=== PATIENT | male | born 1945 | race Caucasian/White ===

== ENCOUNTER 2023-12-27 13:05 | Emergency (ER) | payer MEDICARE, SELFPAY ==
[2023-12-27 13:14] VITALS: BP 169/89; PULSE 56; TEMP 37.1; O2SAT 96; BMI 24.1
--- NOTE | 2023-12-27 13:19 | XR_ITS ---
The [address] [address] Patient Name: ILA MOREJON MRN: [id number] date: 1945 Sex: M Assigned Patient Location: ER Current Patient Location: ER Accession/Order Number: [id number] Exam Date: 12/27/2023 13:48 Report Date: 12/27/2023 15:28 At the request of: JULIANO HENDRICKSON Procedure: XR chest 2V EXAM: XR chest 2V 12/27/2023 COMPARISON STUDY: None. HISTORY: cough TECHNIQUE: A total of 2 images were obtained. FINDINGS/IMPRESSION: 1. Prior coronary artery stenting noted. Heart size is normal. Changes from atherosclerosis are identified. 2. Abnormal central bronchial wall cuffing may be related to reactive airways disease versus bronchitis. No overt pneumonia noted. 3. Background COPD pattern/emphysema may also be present. 4. No acute osseous abnormality. Remote trauma and/or postsurgical partial resection of the distal left clavicle suggested. 5. No edema, failure or pneumothorax otherwise identified. Electronically authenticated by: CELINA CASTRO Date: 12/27/2023 15:28
[2023-12-27 13:20] VITALS: O2SAT 96
--- NOTE | 2023-12-27 13:28 | ECG_ITS ---
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
--- NOTE | 2023-12-27 13:47 | ED.GENADUL1 ---
HPI HPI - General Adult General Chief complaint: Upper Respiratory Infection Stated complaint: CHEST PAIN/CONGESTION Time Seen by Provider: 12/27/23 13:11 Source: patient Mode of arrival: walk-in History of Present Illness HPI narrative: Patient presents to ED complaining of shortness of breath. States for the past week he has had a cough and shortness of breath. Shortness of breath is worse with exertion. No chest pain. He denies any leg pain or swelling. He does have a history of 4 stents that were put in within the past year. He does not have a history of CHF. He is on Brilinta. He reports a cough but states it is relatively nonproductive. He also reports a weight loss in the past month or so he has been losing weight and not actively trying to lose weight. Says he just has mild nausea and decreased appetite. No abdominal pain. No vomiting. Related Data Home Medications ?Medication ?Instructions ?Recorded ?Confirmed amlodipine 10 mg tablet 10 mg PO QAM 12/27/23 12/27/23 aspirin 81 mg chewable tablet 1 tab PO QAM 12/27/23 12/27/23 furosemide 40 mg tablet 40 mg PO DAILY PRN edema 12/27/23 12/27/23 gabapentin 300 mg capsule 300 mg PO TID 12/27/23 12/27/23 insulin glargine 100 unit/mL 54 unit subcut DAILY 12/27/23 12/27/23 subcutaneous solution (Lantus U-100 Insulin) lisinopril 20 mg tablet 20 mg PO QAM 12/27/23 12/27/23 metformin 500 mg tablet,extended 500 mg PO DAILY 12/27/23 12/27/23 release 24 hr rosuvastatin 20 mg tablet 20 mg PO QPM 12/27/23 12/27/23 ticagrelor 90 mg tablet (Brilinta) 90 mg PO DAILY 12/27/23 12/27/23 Previous Rx's ?Medication ?Instructions ?Recorded albuterol sulfate 90 mcg/actuation 1 inh inhalation Q6H PRN wheezing 12/27/23 aerosol inhaler #8.5 grams azithromycin 500 mg tablet See Rx Instructions PO .COMPLEX #3 12/27/23 (Zithromax TRI-MARBIN) tabs methylprednisolone 4 mg tablets in 4 mg PO DAILY #21 ea 12/27/23 a dose pack (Medrol (Marbin)) Allergies Allergy/AdvReac Type Severity Reaction Status Date / Time No Known Drug Allergies Allergy Verified 12/27/23 13:17 Opioid HPI Opioid Management Most Recent Opioid Data: No Data to Display Review of Systems ROS Status of ROS 10 or more systems reviewed and unremarkable except as noted in history and below [facility] Medical History (Updated 12/27/23 @ 16:46 by Arminda Valverde DO) Bradycardia ?R00.1 - Bradycardia, unspecified (ICD-10) Diabetes ?E11.9 - Type 2 diabetes mellitus without complications (ICD-10) Surgical History (Updated 12/27/23 @ 14:28 by Mary Sherwood) H/O heart artery stent ?Z95.5 - Presence of coronary angioplasty implant and graft (ICD-10) Exam Narrative Exam Narrative: Time Seen: [] Vital Signs: [Per nurse's notes.] General: [Alert] Skin: [Warm, dry, no rash.] Head: [Normocephalic, atraumatic.] Neck: [Supple, trachea midline.] Eye: [Pupils are equal, round and reactive to light, extraocular movements are intact, normal conjunctiva.] Ears, nose, mouth and throat: oral mucosa moist. Cardiovascular: [Regular rate and rhythm, no murmur.] Respiratory: [Diminished breath sounds bilaterally respirations are non-labored, breath sounds are equal.] Chest wall: [No tenderness, no deformity.] Gastrointestinal: [Soft, nontender, non distended, normal bowel sounds.] MSK: 5 out of 5 muscle strength x 4 extremities no calf pain or edema Lymphatics: [No lymphadenopathy.] Psychiatric: [Cooperative, appropriate mood & affect.] Neurological: [Alert and oriented to person, place, time, and situation, no focal neurological deficit observed.] Constitutional Vital Signs, click to edit/add: Last Vital Signs Temp 98.2 F 12/27/23 15:43 Pulse 55 L 12/27/23 15:43 Resp 18 12/27/23 15:43 BP 170/60 H 12/27/23 15:43 Pulse Ox 90 L 12/27/23 15:43 O2 Del Method Room Air 12/27/23 13:20 Course Vital Signs Vital signs: Vital Signs Temperature 98.8 F 12/27/23 13:14 Pulse Rate 56 L 12/27/23 13:14 Respiratory Rate 18 12/27/23 13:14 Blood Pressure 169/89 H 12/27/23 13:14 Pulse Oximetry 96 12/27/23 13:14 Oxygen Delivery Method Room Air 12/27/23 13:14 Temperature 98.2 F 12/27/23 15:43 Pulse Rate 55 L 12/27/23 15:43 Respiratory Rate 18 12/27/23 15:43 Blood Pressure 170/60 H 12/27/23 15:43 Pulse Oximetry 90 L 12/27/23 15:43 Oxygen Delivery Method Room Air 12/27/23 13:20 Medical Decision Making MDM Narrative Medical decision making narrative: Patient's troponin x 2 is negative. His chest x-ray does show some bronchial thickening consistent with viral syndrome or bronchitis or possibly pneumonia. I spoke to Dr. Barger the patient's PCP about all of the findings and he states if the second troponin is negative please have him follow-up with the office this week. I will send him home on steroids antibiotics and an inhaler for the shortness of breath and Dr. Barger will follow him up as an outpatient. Patient and family are comfortable with care plan for home. If worsening shortness of breath chest pain sweating or syncope occur please return immediately to the emergency room. Differential Diagnosis Differential Diagnosis: Pneumonia, CHF, ACS, electrolyte abnormalityBronchitis Medical Records Medical records reviewed: Yes I reviewed the patient's medical records Lab Data Lab results reviewed: Yes I reviewed the patient's lab results Labs: Lab Results 12/27/23 12/27/23 12/27/23 Range/Units 13:38 13:40 14:20 WBC 13.7 H (4.0-11.0) 10^3/uL RBC 3.10 L (4.70-6.10) 10^6/uL Hgb 9.7 L (14.0-18.0) g/dL Hct 28.6 L (42.0-54.0) % MCV 92.3 (80.0-94.0) fL MCH 31.3 (25.9-34.0) pg MCHC 33.9 (29.9-35.2) g/dL RDW 13.3 (11.0-15.0) % Plt Count 175 (150-450) 10^3/uL MPV 10.1 (9.5-13.5) fL Seg Neuts % (Manual) 46.0 Lymphocytes % (Manual) 49.0 (20.5-60.0) % Monocytes % (Manual) 1.0 L (1.7-12.0) % Eosinophils % (Manual) 3.0 (0.9-7.0) % Basophils % (Manual) 0.0 L (0.2-2.0) % Myelocytes % 1.0 Neutrophils # (Manual) 6.30 (1.4-6.5) 10^3/uL Lymphocytes # (Manual) 6.71 H (1.20-3.80) 10^3/uL Monocytes # (Manual) 0.13 L (0.30-0.80) 10^3/uL Eosinophils # (Manual) 0.41 (0.00-0.70) 10^3/uL Basophils # (Manual) 0.00 (0.00-0.10) 10^3/uL Myelocytes # 0.13 Smudge Cells Seen Sodium 141 (136-145) mmol/L Potassium 5.0 (3.5-5.1) mmol/L Chloride 108 H (98-107) mmol/L Carbon Dioxide 24.5 (21.0-32.0) mmol/L Anion Gap 13.5 BUN 28.0 H (7.0-18.0) mg/dL Creatinine 1.45 H (0.70-1.30) mg/dL Est GFR ( Amer) 57 L (>=60) Est GFR (Non-Af Amer) 47 L (>=60) BUN/Creatinine Ratio 19.3 Glucose 119 H (74-106) mg/dL Lactate 0.6 (0.4-2.0) mmol/L Calcium 8.6 (8.5-10.1) mg/dL Total Bilirubin 0.4 (0.2-1.0) mg/dL AST 22 (15-37) U/L ALT 29 (16-63) U/L Alkaline Phosphatase 91 (46-116) U/L Troponin I High Sens 62.7 61.7 (4.0-76.1) pg/mL NT-Pro-B Natriuret Pep 1526.0 (<=1800.0) pg/mL Total Protein 5.9 L (6.4-8.2) g/dL Albumin 2.6 L (3.4-5.0) g/dL Globulin 3.3 g/dL Albumin/Globulin Ratio 0.8 Influenza Type A Ag Negative Influenza Type B Ag Negative SARS-CoV-2 Ag (CV2AG) Negative (NEGATIVE) POC Glucose (74-106) mg/dL 12/27/23 Range/Units 15:46 WBC (4.0-11.0) 10^3/uL RBC (4.70-6.10) 10^6/uL Hgb (14.0-18.0) g/dL Hct (42.0-54.0) % MCV (80.0-94.0) fL MCH (25.9-34.0) pg MCHC (29.9-35.2) g/dL RDW (11.0-15.0) % Plt Count (150-450) 10^3/uL MPV (9.5-13.5) fL Seg Neuts % (Manual) Lymphocytes % (Manual) (20.5-60.0) % Monocytes % (Manual) (1.7-12.0) % Eosinophils % (Manual) (0.9-7.0) % Basophils % (Manual) (0.2-2.0) % Myelocytes % Neutrophils # (Manual) (1.4-6.5) 10^3/uL Lymphocytes # (Manual) (1.20-3.80) 10^3/uL Monocytes # (Manual) (0.30-0.80) 10^3/uL Eosinophils # (Manual) (0.00-0.70) 10^3/uL Basophils # (Manual) (0.00-0.10) 10^3/uL Myelocytes # Smudge Cells Sodium (136-145) mmol/L Potassium (3.5-5.1) mmol/L Chloride (98-107) mmol/L Carbon Dioxide (21.0-32.0) mmol/L Anion Gap BUN (7.0-18.0) mg/dL Creatinine (0.70-1.30) mg/dL Est GFR ( Amer) (>=60) Est GFR (Non-Af Amer) (>=60) BUN/Creatinine Ratio Glucose (74-106) mg/dL Lactate (0.4-2.0) mmol/L Calcium (8.5-10.1) mg/dL Total Bilirubin (0.2-1.0) mg/dL AST (15-37) U/L ALT (16-63) U/L Alkaline Phosphatase (46-116) U/L Troponin I High Sens (4.0-76.1) pg/mL NT-Pro-B Natriuret Pep (<=1800.0) pg/mL Total Protein (6.4-8.2) g/dL Albumin (3.4-5.0) g/dL Globulin g/dL Albumin/Globulin Ratio Influenza Type A Ag Influenza Type B Ag SARS-CoV-2 Ag (CV2AG) (NEGATIVE) POC Glucose 65 L (74-106) mg/dL Imaging Data Chest x-ray: Attestation: I have reviewed the pertinent imaging results. ECG Data Attestation: I personally reviewed and interpreted this ECG as follows: Interpretation: EKG INTERPRETATION Time: []1334 Rate: []50 Rhythm: _ []Sinus bradycardia which is chronic for the patient ST segments: _ [] T waves: _ [] Ectopy: _ [] P wave/GA interval: _ [] QRS interval: _ [] QT interval: _ [] Comparison: _ [] Comparison EKG date: [] Performed by: [self] Inverted T waves lead III Discharge Plan Discharge Stand Alone Forms: Portal Instructions Chief Complaint: Upper Respiratory Infection Clinical Impression: Bronchitis Patient Disposition: Home, Self-Care Time of Disposition Decision: 16:46 Condition: Good Mode of Transportation: Private Vehicle Prescriptions / Home Meds: New methylprednisolone [Medrol (Marbin)] 4 mg tablets,dose pack 4 mg PO DAILY Qty: 21 0RF azithromycin [Zithromax TRI-MARBIN] 500 mg tablet See Rx Instructions .ROUTE .COMPLEX Qty: 3 0RF Rx Instructions: For 250 mg dose pack: take 500 mg today (day 1), then 250 mg for 4 days (days 2-5) albuterol sulfate 90 mcg/actuation HFA aerosol inhaler 1 inh inhalation Q6H PRN (Reason: wheezing) Qty: 8.5 0RF No Action amlodipine 10 mg tablet 10 mg PO QAM aspirin 81 mg tablet,chewable 1 tab PO QAM furosemide 40 mg tablet 40 mg PO DAILY PRN (Reason: edema) gabapentin 300 mg capsule 300 mg PO TID metformin 500 mg tablet extended release 24 hr 500 mg PO DAILY rosuvastatin 20 mg tablet 20 mg PO QPM Brilinta 90 mg tablet 90 mg PO DAILY insulin glargine [Lantus U-100 Insulin] 100 unit/mL solution 54 unit SUBCUT DAILY lisinopril 20 mg tablet 20 mg PO QAM Print Language: Paragu[place] Instructions: Acute Bronchitis (ED) Referrals: Cruzito Eid MD [Primary Care Provider] - 1 week
[2023-12-27 13:54] LABS: Hematocrit 28.6 % (42.0-54.0); Hemoglobin 9.7 g/dL (14.0-18.0); Mean Corpuscular HGB Conc 33.9 g/dL (29.9-35.2); Mean Corpuscular Hemoglobin 31.3 pg (25.9-34.0); Mean Corpuscular Volume 92.3 fL (80.0-94.0); Mean Platelet Volume 10.1 fL (9.5-13.5); Platelet Count 175 10^3/uL (150-450); Red Cell Distribution Width 13.3 % (11.0-15.0); White Blood Count 13.7 10^3/uL (4.0-11.0)
[2023-12-27 14:11] LABS: Influenza Virus A Antigen Negative; Influenza Virus B Antigen Negative; Internal Control Within Normal Limits; SARS-CoV-2 Ag NEGATIVE (NEGATIVE)
[2023-12-27 14:12] VITALS: BP 154/67; PULSE 55
[2023-12-27 14:16] LABS: Alanine Aminotransferase 29 U/L (16-63); Albumin Globulin Ratio 0.8; Albumin Level 2.6 g/dL (3.4-5.0); Alkaline Phosphatase 91 U/L (46-116); Anion Gap 13.5; Aspartate Amino Transferase 22 U/L (15-37); BUN Creatinine Ratio 19.3; Bilirubin Total 0.4 mg/dL (0.2-1.0); Calcium 8.6 mg/dL (8.5-10.1); Carbon Dioxide 24.5 mmol/L (21.0-32.0); Chloride 108 mmol/L (98-107); Estimated GFR (African America 57 (>=60); Estimated GFR (Non-African Ame 47 (>=60); Globulin 3.3 g/dL; Glucose 119 mg/dL (74-106); Sodium 141 mmol/L (136-145); Total Protein 5.9 g/dL (6.4-8.2); Troponin I High Sensitivity 62.7 pg/mL (4.0-76.1)
[2023-12-27 14:21] LABS: Eosinophils Absolute Manual 0.41 10^3/uL (0.00-0.70); Lymphocytes Absolute Manual 6.71 10^3/uL (1.20-3.80); Monocytes Absolute Manual 0.13 10^3/uL (0.30-0.80); Myelocytes Absolute Manual 0.13; Smudge Cells SEEN
[2023-12-27 14:52] LABS: Lactate/Lactic Acid 0.6 mmol/L (0.4-2.0)
[2023-12-27 15:43] VITALS: BP 170/60; PULSE 55; TEMP 36.8; O2SAT 90
[2023-12-27 15:47] LABS: Glucometer 65 mg/dL (74-106)
[2023-12-27 16:39] LABS: Troponin I High Sensitivity 61.7 pg/mL (4.0-76.1)
== END 2023-12-27 17:07 | disposition home or self-care (01) ==
PROVIDERS: Emergency Provider Emergency Medicine; PCP Family Medicine
DX: J40 Bronchitis, not specified as acute or chronic (principal); R06.02 Shortness of breath; Z95.5 Presence of coronary angioplasty implant and graft
CPT/HCPCS: 36415; 71046; 80053; 83605; 83880; 84484; 85007; 85027; 87040; 87804; 87811; 93005; 99285

== ENCOUNTER 2024-01-07 07:36 | Outpatient (OUT) | payer MEDICARE, SELFPAY ==
--- OUTSIDE RECORDS SUMMARY | 2024-01-07 07:40 | XMS_ITS | CCD ---
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 Name Role Phone Cruzito Mcgrath Primary Care Provider Luiz Glass Attending Provider ALCIDES, DR CRUZITO Yan Admitting Unavailable NADERER, DR CRUZITO Yan Attending Unavailable NADERER, DR CRUZITO Yan Primary Care Unavailable NADERER, DR CRUZITO Yan Consulting Unavailable NADERER, DR CRUZITO Yan Admitting Unavailable NADERER, DR CRUZITO Yan Attending Unavailable NADERER, DR CRUZITO Yan Primary Care Unavailable NADERER, DR CRUZITO Yan Consulting Unavailable Unavailable Primary Care Provider Unavailabl e Naderer, Cruzito Yan Primary Care Provider [phone] Cruzito Mcgrath MD Primary Care Provider [phone] FARAZ BECKHAM Attending Unavailable ALCIDES, CRUZITO Yan Primary Care Unavailable ABHYANKAR, FARAZ Referring Unavailable NADERER, CRUZITO Yan Primary Care Unavailable ABHYANKAR, FARAZ Referring Unavailable NADERER, CRUZITO Yan Primary Care Unavailable ABHYANKAR, FARAZ Referring Unavailable ABHYANKAR, FARAZ Attending Unavailable NADLOBITO, CRUZITO Yan Primary Care Unavailable ABHYANKAR, FARAZ Referring Unavailable NADERER, CRUZITO Attending Unavailable AICHHOLZEMELY Attending Unavailable TAYLER COREY Referring Unavailabl e NADERER, CRUZITO Primary Care Unavailable TAYLER COREY Referring Unavailabl e NADERER, CRUZITO Primary Care Unavailable TAYLER COREY Referring Unavailabl e NADERER, CRUZITO Primary Care Unavailable TAYLER COREY Referring Unavailabl e NADERER, CRUZITO Primary Care Unavailable NADERECoral, CRUZITO Referring Unavailable NADERECoral, CRUZITO Primary Care Unavailable TAYLER COREY Referring Unavailabl e NADERER, CRUZITO Primary Care Unavailable TAYLER COREY Referring Unavailabl e NADERER, CRUZITO Primary Care Unavailable LEORA, TAYLER Moncada Referring Unavailabl e NADERER, CRUZITO Primary Care Unavailable LEORATAYLER Referring Unavailabl e NADERER, CRUZITO Primary Care Unavailable WAYNE DONALD Attending Unavailable WAYNE DONALD Referring Unavailable NADERER, CRUZITO Primary Care Unavailable LEORATAYLER Referring Unavailabl e NADERER, CRUZITO Primary Care Unavailable LEORATAYLER Referring Unavailabl e NADERER, CRUZITO Primary Care Unavailable LEORA, TAYLER R Referring Unavailabl e NADERER, [facility] Primary Care Unavailable LEORATAYLER Referring Unavailabl e NADERER, CRUZITO Primary Care Unavailable LEORA, TAYLER R Referring Unavailabl e NADERER, CRUZITO Primary Care Unavailable LEORA, TAYLER R Referring Unavailabl e NADERER, [facility] Primary Care Unavailable LEORA, TAYLER R Referring Unavailabl e NADERER, CRUZITO Primary Care Unavailable LEORA, TAYLER Moncada Referring Unavailabl e NADERER, [facility] Primary Care Unavailable LEORA, TAYLER R Referring Unavailabl e NADERER, [facility] Primary Care Unavailable LEORA, TAYLER Moncada Referring Unavailabl e NADERER, CRUZITO Primary Care Unavailable LEORA, TAYLER Moncada Referring Unavailabl e NADERER, [facility] Primary Care Unavailable LEORA, TAYLER Moncada Referring Unavailabl e NADERER, [facility] Primary Care Unavailable LEORA, TAYLER Moncada Referring Unavailabl e NADERER, CRUZITO Primary Care Unavailable DEBBIE GONZALEZ Attending Unavailable NADERER, CRUZITO Referring Unavailable NADERER, CRUZITO Primary Care Unavailable GENEVA SANDERS Attending Unavail able DEBBIE GONZALEZ Referring Unavailable NADERER, [facility] Primary Care Unavailable DO Arminda Valverde Attending Provider Arminda Valverde Admitting Unavailable Arminda Valverde Attending Unavailable Medications Current Medications Medication Drug Class(es) Dates Sig (Normalized) Sig (Original) amLODIPine 10 mg oral tablet (17 sources) Dihydropyridine Calcium Channel Veronica Start: 05-09-2023 take 1 tablet by mouth in the morning amLODIPine (NORVASC) 10 mg tablet TAKE 1 TABLET BY MOUTH IN THE MORNING 90 tablet 3 05/09/2023 Active Start: 06-14-2022 take 1 tablet by sierra th once daily in the morning amLODIPine (NORVASC) 5 mg tablet Take 5 mg by mouth every morning. 0 06/14/2022 Active Comment on above: Take 5 mg by mouth e very morning. ascorbic acid 500 mg oral tablet (5 sources) Vitamin C Start: take 1 tablet by mouth once daily Ascorbic Acid (Vitamin C) (Vitamin C) 500 mg Tablet Active 500 MG PO Daily January 02, 2021 12:00am Comment on above: Take 500 mg by mouth once daily. aspirin 81 mg chewable tablet (14 sources) Platelet Aggregation Inhibitor, Nonsteroidal Anti-inflammatory Drug Start: End: aspirin 81 mg chewable tablet Chew 1 tablet (81 mg total) and swallow in the morning for 360 days. 30 tablet 04/09/2023 04/03/2024 Active Calcium Phos,Dibas-Vitamin D3 (1 source) Start: take 1 tablet by mouth once daily Calcium Phos,Dibas-Vitamin D3 Active 1 TAB PO Daily January 02, 2021 12:00am carvedilol 6.25 mg oral tablet (5 sources) alpha-Adrenergic Veronica, beta-Adrenergic Veronica Start: take 6.25 mg by mouth twice daily Carvedilol Active 6.25 MG PO Twice daily January 02, 2021 12:00am Comment on above: Take 6.25 mg by mout h twice daily with meals. cholecalciferol 0.025 mg oral tablet (18 sources) Vitamin D take 2 tablets by mouth in the morning cholecalciferol 1,000 units tablet Take 2 tablets (2,000 Units total) by mouth in the morning. 0 Active take 1 capsule by mouth once jaimie ly cholecalciferol, vitamin D3, 10 mcg (400 unit) cap Take 2,000 Units by mouth once daily. 0 Active Comment on above: Take 2,000 Units by mouth once daily. clopidogrel 75 mg oral tablet (5 sources) P2Y12 Platelet Inhibitor Start: 1 take 75 mg by mouth once daily Clopidogrel Active 75 MG PO Daily January 02, 2021 12:00am Comment on above: Take 75 mg by mouth once daily. gabapentin 300 mg oral capsule (15 sources) Anti-epileptic Agent Start: 4 take 1 capsule by mouth three times daily gabapentin (NEURONTIN) 300 mg capsule Take 1 capsule (300 mg total) by mouth 3 (three) times a day. 0 07/22/2023 Active End: 08-27-2023 take 1 capsule by mouth three times daily gabapentin (NEURONTIN) 100 mg capsule Take 1 capsule (100 mg total) by mouth 3 (three) times a day. 0 08/27/2023 Discontinued (Dose adjustment) glipiZIDE 10 mg oral tablet (5 sources) Sulfonylurea Start: 01-02-2021 take 10 mg by mouth twice daily Glipizide Active 10 MG PO Twice daily January 02, 2021 12:00am Comment on above: Take 10 mg by mouth twice daily before m eals. insulin glargine 100 unt/ml injectable solution (6 sources) Insulin Analog Start: 01-02-2021 inject 54 [IU] by subcutaneous injection once daily Insulin Glargine (Lantus U-100 Insulin) 100 unit/mL Solution Active 54 UNIT SUBCUT Daily January 02, 2021 12:00am Comment on above: Inject subcutaneously as directed. insulin glargine,hum.rec .anlog (INSULIN GLARGINE SUBQ) (14 sources) inject 54 [IU] by subcutaneous injection once daily insulin glargine,hum.re c.anlog (INSULIN GLARGINE SUBQ) Inject 54 Units under the skin daily. Lantus 0 Active lisinopril 20 mg oral tablet (19 sources) Angiotensin Converting Enzyme Inhibitor Start: 06-17-2023 take 1.5 tablets by mouth in the morning lisinopriL (PRINIVIL,ZESTR IL) 20 mg tablet Take 1.5 tablets (30 mg total) by mouth in the morning. 135 tablet 3 06/17/2023 Active Start: 01-02-2021 take 40 mg by mouth once daily Lisinopril Active 40 MG PO Daily January 02, 2021 12:00am Comment on above: Take 40 mg by mouth once daily. metFORMIN hydrochloride 500 mg oral tablet (19 sources) Biguanide Start: 01-02-2021 take 500 mg by mouth once daily Metformin Active 500 MG PO Daily January 02, 2021 12:00am Start: 08-04-2018 take 1 tablet by sierra th every twenty-four hours in the morning metFORMIN XR (GLUCOPHAGE-XR) 500 mg 24 hr tablet Take 1 tablet (500 mg total) by mouth in the morning. 0 08/04/2018 Active Comment on above: Take 500 mg by mouth daily with breakfast. mkzjrdnk-bvng-ZJ-calc ium &mins (THERAGRAN-M) 9 mg iron-400 mcg tablet (2 sources) sljfxutf-zokk-TN -gerry cium &mins (THERAGRAN-M) 9 mg iron-400 mcg tablet Take 1 tablet by mouth in the morning. 0 Active potassium gluconate 2.5 meq extended release oral tablet (2 sources) take 1 tablet by mouth in the morning potassium gluconate 595 mg (99 mg) tablet extended release Take 1 tablet (595 mg total) by mouth in the morning. 0 Active pravastatin sodium 20 mg oral tablet (6 sources) HMG-CoA Reductase Inhibitor Start: 1 take 20 mg by mouth once daily Pravastatin Active 20 MG PO Daily January 02, 2021 12:00am Start: 01-02-2021 End: 01-02-2021 take 10 mg by mouth once daily Pravastatin Discontinue d 10 MG PO Daily January 02, 2021 12:00am January 02, 2021 12:20pm Comment on above: Take 20 mg by mouth once daily. rosuvastatin calcium 20 mg oral tablet (14 sources) HMG-CoA Reductase Inhibitor Start: 3 End: 4 take 1 tablet by mouth once daily rosuvastatin (CRESTOR) 20 mg tablet Take 1 tablet (20 mg total) by mouth nightly for 360 days. 30 tablet 11 04/08/2023 04/02/2024 Active ticagrelor 90 mg oral tablet (14 sources) Start: 3 End: 4 take 1 tablet by mouth once ticagrelor (BRILINTA) 90 mg tablet Take 1 tablet (90 mg total) by mouth every 12 (twelve) hours for 360 days. 60 tablet 11 04/08/2023 04/02/2024 Active ubidecarenone 10 mg oral capsule (19 sources) Start: 1 Coenzyme Q10 Active 10 MG PO Once January 02, 2021 12:00am take 1 capsule by mo ut once in the morning coenzyme Q10 100 mg capsule Take 1 capsu le (100 mg total) by mouth in the morning. 0 Active coenzyme Q10 (CO ENZYME Q-10) 100 mg cap capsule Take 100 mg by mouth once daily. 0 Active Comment on above: Take 100 mg by mouth once daily. Zinc (5 sources) Start: 01-02-2021 take 1 tablet by mouth once daily Zinc Active 1 TAB PO Daily January 02, 2021 12:00am take 1 tablet by mouth once slade y Zinc 50 mg tab Take 50 mg by mouth once daily. 0 Active Comment on above: Take 50 mg by mouth once daily. Completed/Discontinued Medications Medication Drug Class(es) Dates Sig (Normalized) Sig (Original) furosemide 40 mg oral tablet (4 sources) Loop Diuretic take 1 tablet by mouth once daily furosemide (LASIX) 40 mg tablet Take 40 mg by mouth once daily. 0 Active Comment on above: Take 40 mg by mouth once daily. magnesium oxide 400 mg oral tablet (13 sources) End: 08-27-2023 take 1 tablet by mouth in the morning magnesium oxide (MAGOX) 400 mg tablet Take 1 tablet (400 mg total) by mouth in the morning. 0 08/27/2023 Discontinued (Therapy completed) Problems Active Problems Problem Classification Problem Date Documented Da te Episodic/Chronic Acute myocardial infarction (16 sources) Myocardial infarction; Translations: [Non-ST elevation (NSTEMI) myocardial infarction] Onset: 04-05-2023 04-05-2023 Chronic Chronic kidney disease (2 sources) Chronic kidney disease stage 3; Translations: [Stage 3 chronic kidney disease, unspecified whether stage 3a or 3b CKD (HCC)] Onset: 01-04-2023 Chronic Conduction disorders (4 sources) Sinus node dysfunction; Translations: [Other specified heart block] Onset: 08-27-2023 08-27-2023 Chronic Coronary atherosclerosis and other heart disease (16 sources) Coronary arteriosclerosis; Translations: [Atherosclerotic heart disease of [place] coronary artery without angina pectoris] Onset: 11-12-2022 11-12-2022 Chronic Coronary atherosclerosis and other heart disease (1 source) Presence of coronary angioplasty implant and graft; Translations: [Presence of coronary angioplasty implant and graft] Onset: 07-17-2023 Episodic Diabetes mellitus with complications (20 sources) Type 2 diabetes mellitus with hyperglycemia; Translations: [Type 2 diabetes mellitus with peripheral angiopathy] Onset: 05-19-2022 Chronic Diseases of white blood cells (9 sources) Elevated white blood cell count, unspecified; Translations: [Lymphocytosis] Onset: 06-06-2022 Chronic Disorders of lipid metabolism (15 sources) Hyperlipidemia, unspecified; Translations: [Mixed hyperlipidemia] Onset: 10-20-2020 11-12-2022 Chronic Essential hypertension (19 sources) Essential (primary) hypertension; Translations: [Hypertensive disorder] Onset: 06-08-2022 11-12-2022 Chronic Leukemias (4 sources) Chronic lymphoid leukemia, disease; 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] Onset: 06-27-2022 Chronic Nutritional deficiencies (1 source) Vitamin D deficiency, unspecified; Translations: [VITAMIN D DEFICIENCY UNSPECIFIED] Onset: 06-08-2022 Chronic Occlusion or stenosis of precerebral arteries (14 sources) Bilateral stenosis of carotid arteries; Translations: [Occlusion and stenosis of bilateral carotid arteries] Onset: 10-21-2019 11-12-2022 Chronic Other aftercare (1 source) 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; Translations: [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 OF INSULIN] Onset: 06-08-2022 Episodic Other aftercare (1 source) Other care home (current) drug therapy; Translations: [OTH LIFE ASSURANCE REPRESENTATIVE CURRENT DRUG THERAPY] Onset: 06-08-2022 Episodic Other circulatory disease (14 sources) History of angioplasty; Translations: [Peripheral vascular angioplasty status with implants and grafts] Onset: 08-09-2019 11-12-2022 Chronic Other nutritional; endocrine; and metabolic disorders (1 source) H/O: raised blood lipids; Translations: [Personal history of other endocrine, nutritional and metabolic disease] 08-26-2023 Episodic Other nutritional; endocrine; and metabolic disorders (1 source) Personal history of other endocrine, nutritional and metabolic disease; Translations: [Personal history of other endocrine, nutritional and metabolic disease] Onset: 08-27-2023 Episodic Other screening for suspected conditions (not mental disorders or infectious disease) (15 sources) Encounter for screening for malignant neoplasm of prostate; Translations: [Abnormal results of cardiovascular function studies] Onset: 06-08-2022 08-05-2018 Episodic Peripheral and visceral atherosclerosis (20 sources) Peripheral vascular disease, unspecified; Translations: [Peripheral vascular disease, unspecified] Onset: 10-21-2019 11-12-2022 Chronic Pulmonary heart disease (2 sources) Pulmonary hypertension; Translations: [Pulmonary hypertension, unspecified] Onset: 08-27-2023 08-26-2023 Chronic Unclassified (1 source) New Patient Onset: 09-03-2023 Past or Other Problems Problem Classification Problem Date Documented Da te Episodic/Chronic Cardiac dysrhythmias (16 sources) Bradycardia, unspecified; Translations: [Other specified cardiac dysrhythmias] Onset: 11-12-2022 11-12-2022 Episodic Mood disorders (14 sources) Mood disorders Onset: 04-05-2023 04-05-2023 Results Test Name Value Interpretation Reference Range Facility [facility] 12-27-2023 L Specimen: [id number] Received: 12/29/23 Status: RAMONA [place] Num: [id number] Spec Type: Impression Subm Dr: Arminda Valverde DO Tissues: PATHPER Procedures: PATHREVIEW Age/ Patient Sex Location Account Attending Physician Ila Morejon 78/M [place] [id number] Arminda Valverde DO SPEC NUM: [id number] RECD: 12/29/23 STATUS: RAMONA [place] NUM: [id number] JERRY: 12/27/[address]: Arminda Valverde DO ENTERED: 12/29/23 [facility] DR: GabeLab SPEC TYPE: Impression DEPT: JAY Garay ENTERED BY: [id number] RECV BY: [id number] ORDERED: PATHREVIEW ORDERED: PATHREVIEW Pathologist Review Abnormal CBC for peripheral blood smear review: -Mild leukocytosis with mild lymphocytosis and mild monocytopenia -Mild anemia of the normocytic type, including at least occasional ovalocytes -No morphological abnormality of the platelet population -Minor toxic changes observed in neutrophil segments -No obvious precursor granulocytes or immature blast observed -The lymphocytes are of the small to medium in sizes, mostly with round to ovoid and occasionally minor indented nuclei, and slightly increased NC ratio -Few smudge cells are also apparent Comment: -The cause of mild anemia in the elderly male patient may be multifactorial in etiology, including anemia of the chronic disease type, including anemia of the mild CKD type (slightly elevated serum creatinine), and probably in association with underlying chronic debilitation (mild hypoalbuminemia) -The cytomorphology of the lymphocytes are relatively preserved except slightly high NC ratio -The mild leukocytosis with minor toxic change may suggest some underlying systemic inflammation -Lymphocytosis can be part of the systemic inflammation, but also cannot completely exclude the possibility of atypical lymphocytosis, including benign monoclonal lymphocytosis, requiring continuous CBC laboratory follow-up as indicated -The cause of mild monocytopenia is also not clear, and can be more intriguing in this case requiring continuous clinical correlations. The. Monocytopenia can be a manifestation of Specimen: [id number] Received: 12/29/23 Status: RAMONA [place] Num: [id number] Spec Type: Impression Subm Dr: Arminda Valverde DO Tissues: PATHPER Procedures: PATHREVIEW Patient: Ila Morejon Julianna [id number] (Continued) Specimen: [id number] Received: 12/29/23 (Continued) Pathologist Review (Continued) Signed (signature on file) Nicole Askew MD 12/29/23 [id number] Specimen: [id number] Received: 12/29/23 Status: RAMONA [place] Num: [id number] Spec Type: Impression Subm Dr: Arminda Valverde DO Tissues: PATHPER Procedures: PATHREVIEW Patient: Ila Morejon [id number] (Continued) Specimen: [id number] Received: 12/29/23 (Continued) Pathologist Review (Continued) part of the myelosuppression, including hairy cell leukemia, otherwise is not very apparent in this CBC except mild chronic anemia -If the CBC abnormality continues to persist or progress, further hematology consultation, including flow cytometric assessment of the peripheral blood, may also be suggested as appropriate CPT: 24013 CBC No results available. Specimen: [id number] Received: 12/29/23 Status: RAMONA [place] Num: [id number] Spec Type: Impression Subm Dr: Arminda Valverde DO Tissues: PATHPER Procedures: PATHREVIEW Patient: Ila Morejon [id number] (Continued) Signed (signature on file) Nicole Askew MD 12/29/23 8194 Normal [facility] HGB A1C (GLYCO-HGB)on 2023 Glucose [Mass/Vol] 151 mg/dL Normal [facility] HbA1c (Bld) [Mass fraction] 6.9 % High 4.4-5.6 [facility] Comment on above: Result Comment: NOTE ADA Guidelines Result HgbA1c Normal : less than 5.7 % Prediabetes : 5.7 % to 6.4 % Diabetes : > 6.4 % Use with caution in patients with abnormal hemoglobin variants as the half-life of red blood cells and in vivo glycation rates are affected. CBC W Auto Differential pane l (Bld)on 07-16-2023 Basophils (Bld) [#/Vol] 0.14 10*3/uL High <0.11 [facility] Comment on above: Order Comment: Speci men Type: BLOOD SPECIMEN Ordering Facility: [facility] Address: [address] [place] [address] Performed By: #### 5 7021-8 #### [facility] CLIA [id number] [address] [place] [address] LAB CLIA [id number] [address] [place] [address] [place] Basophils/100 WBC (Bld) 1.0 % Normal [facility] Comment on above: Order Comment: Speci men Type: BLOOD SPECIMEN Ordering Facility: [facility] Address: [address] [place] [address] Performed By: #### 5 7021-8 #### [facility] CLIA [id number] [address] [place] [address] LAB CLIA [id number] [address] [place] [address] [place] Differential cell count method Nom (Bld) Manual Normal [facility] Comment on above: Order Comment: Speci men Type: BLOOD SPECIMEN Ordering Facility: [facility] Address: [address] [place] [address] Performed By: #### 5 7021-8 #### [facility] CLIA [id number] [address] [place] [address] LAB CLIA [id number] [address] [place] [address] [place] Eosinophils (Bld) [#/Vol] 0.14 10*3/uL Normal <0.46 [facility] Comment on above: Order Comment: Speci men Type: BLOOD SPECIMEN Ordering Facility: [facility] Address: [address] [place] [address] Performed By: #### 5 7021-8 #### [facility] CLIA [id number] [address] [place] [address] LAB CLIA [id number] [address] [place] [address] [place] Eosinophils/100 WBC (Bld) 1.0 % Normal [facility] Comment on above: Order Comment: Speci men Type: BLOOD SPECIMEN Ordering Facility: [facility] Address: [address] [place] [address] Performed By: #### 5 7021-8 #### [facility] CLIA [id number] [address] [place] [address] LAB CLIA [id number] [address] [place] [address] [place] Erythrocyte distribution width (RBC) [Ratio] 13.2 % Normal 11.5-15.0 [facility] Comment on above: Order Comment: Speci men Type: BLOOD SPECIMEN Ordering Facility: [facility] Address: [address] [place] [address] Performed By: #### 5 7021-8 #### [facility] CLIA [id number] [address] [place] [address] LAB CLIA [id number] [address] [place] [address] [place] Hematocrit (Bld) [Volume fraction] 32.0 % Low 39.0-51.0 [facility] Comment on above: Order Comment: Speci men Type: BLOOD SPECIMEN Ordering Facility: [facility] Address: [address] [place] [address] Performed By: #### 5 7021-8 #### [facility] CLIA [id number] [address] LAB CLIA [id number] [address] [place] [address] [place] Hemoglobin (Bld) [Mass/Vol] 10.8 g/dL Low 13.0-17.0 [facility] Comment on above: Order Comment: Speci men Type: BLOOD SPECIMEN Ordering Facility: [facility] Address: [address] [place] [address] Performed By: #### 5 7021-8 #### [facility] CLIA [id number] [address] [place] [address] LAB CLIA [id number] [address] [place] [address] [place] Lymphocytes (Bld) [#/Vol] 7.95 10*3/uL High 1.00-4.00 [facility] Comment on above: Order Comment: Speci men Type: BLOOD SPECIMEN Ordering Facility: [facility] Address: [address] [place] [address] Performed By: #### 5 7021-8 #### [facility] CLIA [id number] [address] [place] [address] LAB CLIA [id number] [address] [place] [address] [place] Lymphocytes/100 WBC (Bld) 57.0 % Normal [facility] Comment on above: Order Comment: Speci men Type: BLOOD SPECIMEN Ordering Facility: [facility] Address: [address] [place] [address] Performed By: #### 5 7021-8 #### [facility] CLIA [id number] [address] [place] [address] LAB CLIA [id number] [address] [place] [address] [place] MCH (RBC) [Entitic mass] 30.9 pg Normal 26.0-34.0 [facility] Comment on above: Order Comment: Speci men Type: BLOOD SPECIMEN Ordering Facility: [facility] Address: [address] [place] [address] Performed By: #### 5 7021-8 #### [facility] CLIA [id number] [address] [place] [address] LAB CLIA [id number] [facility] [place] [address] [place] MCHC (RBC) [Mass/Vol] 33.8 g/dL Normal 30.5-36.0 [facility] Comment on above: Order Comment: Speci men Type: BLOOD SPECIMEN Ordering Facility: [facility] Address: [address] [place] [address] Performed By: #### 5 7021-8 #### [facility] CLIA [id number] [address] [place] [address] LAB CLIA [id number] [address] [place] [address] [place] MCV (RBC) [Entitic vol] 91.7 fL Normal 80.0-100.0 [facility] Comment on above: Order Comment: Speci men Type: BLOOD SPECIMEN Ordering Facility: [facility] Address: [address] [place] [address] Performed By: #### 5 7021-8 #### [facility] CLIA [id number] [address] [place] [address] LAB CLIA [id number] [address] [place] [address] [place] Monocytes (Bld) [#/Vol] 0.84 10*3/uL Normal <0.87 [facility] Comment on above: Order Comment: Speci men Type: BLOOD SPECIMEN Ordering Facility: [facility] Address: [address] [place] [address] Performed By: #### 5 7021-8 #### [facility] CLIA [id number] [address] [place] [address] LAB CLIA [id number] [address] [place], [place] [id number] [place] Monocytes/100 WBC (Bld) 6.0 % Normal [facility] Comment on above: Order Comment: Speci men Type: BLOOD SPECIMEN Ordering Facility: [facility] Address: [address] [place] [address] Performed By: #### 5 7021-8 #### [facility] CLIA [id number] [address] [place] [address] LAB CLIA [id number] [address] [place] [address] [place] Neutrophils (Bld) [#/Vol] 4.88 10*3/uL Normal 1.45-7.50 [facility] Comment on above: Order Comment: Speci men Type: BLOOD SPECIMEN Ordering Facility: [facility] Address: [address] [place] [address] Performed By: #### 5 7021-8 #### [facility] CLIA [id number] [address] [place] [address] LAB CLIA [id number] [address] [place] [address] [place] Neutrophils/100 WBC (Bld) 35.0 % Normal [facility] Comment on above: Order Comment: Speci men Type: BLOOD SPECIMEN Ordering Facility: [facility] Address: [address] [place] [address] Performed By: #### 5 7021-8 #### [facility] CLIA [id number] [address] [place] [address] LAB CLIA [id number] [address] [place] [address] [place] Nucleated RBC (Bld) [#/Vol] 10*3/uL Normal <0.01 [facility] Comment on above: Order Comment: Speci men Type: BLOOD SPECIMEN Ordering Facility: [facility] Address: [address] [place] [address] Performed By: #### 5 7021-8 #### [facility] CLIA [id number] [address] [place] [address] LAB CLIA [id number] [address] [place] [address] [place] Nucleated RBC/100 WBC (Bld) [Ratio] 0.0 /100 WBC Normal [facility] Comment on above: Order Comment: Speci men Type: BLOOD SPECIMEN Ordering Facility: [facility] Address: [address] [place] [address] Performed By: #### 5 7021-8 #### [facility] CLIA [id number] [address] [place] [address] LAB CLIA [id number] [address] [place] [address] [place] Ovalocytes LM Ql (Bld) Few Normal [facility] Comment on above: Order Comment: Speci men Type: BLOOD SPECIMEN Ordering Facility: [facility] Address: [address] [place] [address] Performed By: #### 5 7021-8 #### [facility] CLIA [id number] [address] [place] [address] LAB CLIA [id number] [address] [place] [address] [place] Platelet mean volume (Bld) [Entitic vol] 10.7 fL Normal 9.0-12.7 [facility] Comment on above: Order Comment: Speci men Type: BLOOD SPECIMEN Ordering Facility: [facility] Address: [address] [place] [address] Performed By: #### 5 7021-8 #### [facility] CLIA [id number] [address] [place] [address] LAB CLIA [id number] [address] [place] [address] [place] Platelets (Bld) [#/Vol] 152 10*3/uL Normal 150-400 [facility] Comment on above: Order Comment: Speci men Type: BLOOD SPECIMEN Ordering Facility: [facility] Address: [address] [place] [address] Performed By: #### 5 7021-8 #### [facility] CLIA [id number] [address] [place] [address] LAB CLIA [id number] [address] [place] [address] [place] Platelets Estimate (Bld) [#/Vol] Adequate Normal [facility] Comment on above: Order Comment: Speci men Type: BLOOD SPECIMEN Ordering Facility: [facility] Address: [address] [place] [address] Performed By: #### 5 7021-8 #### [facility] CLIA [id number] [address] [place] [address] LAB CLIA [id number] [address] [place] [address] [place] RBC (Bld) [#/Vol] 3.49 10*6/uL Low 4.20-6.00 [facility] Comment on above: Order Comment: Speci men Type: BLOOD SPECIMEN Ordering Facility: [facility] Address: [address] [place] [address] Performed By: #### 5 7021-8 #### [facility] CLIA [id number] [address] [place] [address] LAB CLIA [id number] [address] [place] [address] [place] RED CELL MORPH Reviewed: see result s of individual morphologies Normal [facility] Comment on above: Order Comment: Speci men Type: BLOOD SPECIMEN Ordering Facility: [facility] Address: [address] [place] [address] Performed By: #### 5 7021-8 #### [facility] CLIA [id number] [address] [place] [address] LAB CLIA [id number] [address] [place] [id number] [place] WBC (Bld) [#/Vol] 13.94 10*3/uL High 3.70-11.00 [facility] Comment on above: Order Comment: Speci men Type: BLOOD SPECIMEN Ordering Facility: [facility] Address: [address] [place] [address] Performed By: #### 5 7021-8 #### [facility] CLIA [id number] [address] [place], [place] [address] [facility] CLIA [id number] [address] [place] [address] [place] CNOVSPon 07-16-2023 CNOVSP Visit (SP) Office (HEMASA) ILA MOREJON ([id number]) 1945 M Date Time Provider Department 07/16/23 2:30 PM FARAZ BECKHAM HEMASA During your visit today, we recorded the following information about you: Temperature Pulse Respiration Blood pressure 97.7 degrees 42/minute 16/minute 169/38 Weight Height 77.3 kg 1.715 m Faraz Beckham MD 07/16/2023 7:35 PM Signed NAME: Ila Morejon CLINIC NO.: [id number] DATE OF SERVICE: July 16, 2023 (Lory) Some elements in this clinic note that are critical to medical decision making have been carefully reviewed and included from a prior clinic note dated: December 27, 2022 (Lory) Referring Provider: Cruzito Mcgrath Additional Clinicians involved in Ila Morejon's care: DIAGNOSIS: lymphocytosis ASSESSMENT: 77 year old man with DM HTN, PVD presenting with lymphocytosis and diagnosed with CLL early June 2022. 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 He is asymptomatic with no indications for treatment. Continue follow-up plans as previously arranged. PLAN: RTC in 6 months, with labs same day. - HPI: CASE HISTORY: Reverse Chronological Order 04/04/2023 - Admitted to [facility] with NSTEMI Underwent placement of drug eluting stent in the right coronary 06/21/2022 - Flow cytometry consistent with CLL positive for CD5 CD19 CD20 CD23 CD45 CD200, monotypic kappa, negative CD10. Small subset of T cells consistent with T-cell large granular lymphocytes and clonal expansion of the beta 20 family. Can be associated with presence of B-cell lymphoproliferative disorder, infections, drug reactions. 06/06/2022 - CBC 18.8>14.0/39.7<185 Abs. Lymph: 10.1 Updated Visit, July 16, 2023: Ila returns today with his Sabrina. He unfortunately experienced an NSTEMI back in 03/2023 and underwent subsequent stent placing. He reports doing much better now. Reviewed his labs, he is slightly anemic but this could be attributed to his heart attack. We will continue to monitor this, but he does not need to start PO iron at this time. His WBCs are not as elevated as they were previously. He denies any B symptoms. Has been sleeping more, especially since the [place]. Updated Visit, December 27, 2022: 11 year anniversary today - going to dinner with his Sabrina. Overall he is doing very well. He has no progression on CLL or B symptoms that would suggest he needs intervention. No evidence of T-cell LGL clone is worsening. Updated Visit, June 27, 2022: Telephone only for 8 minutes Called Alexis as requested and spoke to him and his Sabrina. We discussed results from laboratories obtained at his last visit. Findings were consistent with CLL. He additionally has a small indication of a T-cell LGL clone. Continue following. No complaints. Initial Visit, June 21, 2022: Ila Morejon presents today Hematology and Oncology evaluation. He is a 76 year old male who is accompanied by his Sabrina for workup of lymphocytosis. He is asymptomatic and we discussed that this most likely represents CLL. He has a + spleen on exam but otherwise no other lympho-megaly. No B symptoms. We thorouhly reviewed the natural history and etiology of CLL as his presumptive diagnosis. We also discussed the classic time course of this disease process as well as potential treatments. - REVIEW OF SYSTEMS Per HPI and otherwise negative by full review of organ systems. - ECOG PERFORMANCE STATUS: 0 PHYSICAL EXAMINATION: Vitals: BP 169/38 Pulse 42 Temp (Src) 97.7 (Temporal) Resp 16 Ht 5' 7.52 (1.72m) Wt 170 lb 6.7 oz (77.3kg) SpO2 98% BMI 26.28 kg/(m2). Body surface area is 1.92 meters squared. Exam limited to gross visualization where appropriate. Gen.: This is an age-appropriate patient in no acute distress. Head: Appears atraumatic with no visible lesions. Eyes: Pupils equally round and reactive to light, extraocular muscles are intact. Neck: Supple. Respiratory: Appears to be respiring comfortably. Neurologic: Nonfocal to gross visualization. Alert and oriented ?3. Psychiatric: No evidence of inappropriate anxiety or depression. Skin: Visible areas of skin without rash, lesions, wounds or petechiae. - ALLERGIES: ALLERGIES No Known Allergies MEDICATIONS: BRILINTA 90 mg tablet Take 1 tablet by mouth every 12 hours. magnesium oxide (MAG-OX) 400 mg (241.3 mg magnesium) tablet Take 400 mg by mouth. rosuvastatin (CRESTOR) 20 mg tablet Take 20 mg by mouth every evening. gabapentin (NEUR (more content not included)... Normal [facility] Comprehensive metabolic 2000 panelon 07-16-2023 Albumin [Mass/Vol] 3.8 g/dL Low 3.9-4.9 [facility] Comment on above: Order Comment: Speci men Type: BLOOD SPECIMEN Ordering Facility: [facility] Address: [address] [place] [address] Performed By: #### 2 532-0, 59100-9, 3083- #### [facility] CLIA [id number] [address] [place] [address] ALP [Catalytic activity/Vol] 88 U/L Normal 38-113 [facility] Comment on above: Order Comment: Speci men Type: BLOOD SPECIMEN Ordering Facility: [facility] Address: [address] [place] [address] Performed By: #### 2 532-0, 20446-1, 3083- #### [facility] CLIA [id number] [address] [place] [address] 29529 ALT [Catalytic activity/Vol] 23 U/L Normal 10-54 [facility] Comment on above: Order Comment: Speci men Type: BLOOD SPECIMEN Ordering Facility: [facility] Address: [address] [place] [address] Performed By: #### 2 532-0, 45182-5, 3083- #### [facility] CLIA [id number] [address] [place] [address] Anion gap [Moles/Vol] 7 mmol/L Low 9-18 [facility] Comment on above: Order Comment: Speci men Type: BLOOD SPECIMEN Ordering Facility: [facility] Address: [address] [place] [address] Performed By: #### 2 532-0, 87580-4, 3083- #### [facility] CLIA [id number] [address] [place] [address] 46394 AST [Catalytic activity/Vol] 23 U/L Normal 14-40 [facility] Comment on above: Order Comment: Speci men Type: BLOOD SPECIMEN Ordering Facility: [facility] Address: [address] [place] [address] Performed By: #### 2 532-0, 81544-6, 3083-07 #### [facility] CLIA [id number] [address] [place] [address]188 Bilirubin [Mass/Vol] 0.3 mg/dL Normal 0.2-1.3 [facility] Comment on above: Order Comment: Speci men Type: BLOOD SPECIMEN Ordering Facility: [facility] Address: [address] [place] [address] Performed By: #### 2 532-0, , 3083-07 #### [facility] CLIA [id number] [address] [place] [address] Calcium [Mass/Vol] 9.3 mg/dL Normal 8.5-10.2 [facility] Comment on above: Order Comment: Speci men Type: BLOOD SPECIMEN Ordering Facility: [facility] Address: [address] [place] [address] Performed By: #### 2 532-0, 89760-2, 3083-07 #### [facility] CLIA [id number] [address] [place] [address]3501 Chloride [Moles/Vol] 107 mmol/L High 97-105 [facility] Comment on above: Order Comment: Speci men Type: BLOOD SPECIMEN Ordering Facility: [facility] Address: [address] [place] [address] Performed By: #### 2 532-0, 79176-1, 3083-07 #### [facility] CLIA [id number] [address] [place] [address] CO2 [Moles/Vol] 23 mmol/L Normal 22-30 [facility] Comment on above: Order Comment: Speci men Type: BLOOD SPECIMEN Ordering Facility: [facility] Address: [address] [place] [address] Performed By: #### 2 532-0, 30033-4, 3083-07 #### [facility] CLIA [id number] [address] [place] [address] 88392 Creatinine [Mass/Vol] 1.59 mg/dL High 0.73-1.22 [facility] Comment on above: Order Comment: Speci men Type: BLOOD SPECIMEN Ordering Facility: [facility] Address: [address] [place] [address] Performed By: #### 2 532-0, , 3083-07 #### [facility] CLIA [id number] [address] [place] [address]42 Creatinine and Glomerular filtration rate.predicted panel (S/P/Bld) 45 mL/min/1.73m??? Low >=60 [facility] Comment on above: Order Comment: Speci men Type: BLOOD SPECIMEN Ordering Facility: [facility] Address: [address] [place] [address] Result Comment: Silvana mated Glomerular Filtration Rate (eGFR) is calculated using the 2020 CKD-EPI creatinine equation. This equation utilizes serum creatinine, sex, and age as parameters. The creatinine assay has traceable calibration to isotope dilution-mass spectrometry. Refer to KDIGO guidelines for clinical interpretation. In patients with unstable renal function, e.g. those with acute kidney injury, the eGFR may not accurately reflect actual GFR. Performed By: #### 2 532-0, 48473-5, 3083-07 #### [facility] CLIA [id number] [address] [place] [address]3569 Glucose [Mass/Vol] 200 mg/dL High 74-99 [facility] Comment on above: Order Comment: Specdimas feng Type: BLOOD SPECIMEN Ordering Facility: [facility] Address: [address] [place] [address] Result Comment: The [place] [employer] (ADA) provides guidance for cutoff values for fasting glucose and random glucose. The ADA defines fasting as no caloric intake for at least 8 hours. Fasting plasma glucose results between 100 to 125 mg/dL indicate increased risk for diabetes (prediabetes). Fasting plasma glucose results greater than or equal to 126 mg/dL meet the criteria for diagnosis of diabetes. In the absence of unequivocal hyperglycemia, results should be confirmed by repeat testing. In a patient with classic symptoms of hyperglycemia or hyperglycemic crisis, random plasma glucose results greater than or equal to 200 mg/dL meet the criteria for diagnosis of diabetes. Reference: Standards of Medical Care in Diabetes 2016, [place] [employer]. Diabetes Care. 2016.39(Suppl 1). Performed By: #### 2 532-0, 19041-6, 3083-1 #### [facility] CLIA [id number] [address] [place] [address] 09324 Potassium [Moles/Vol] 5.3 mmol/L High 3.7-5.1 [facility] Comment on above: Order Comment: Michael feng Type: BLOOD SPECIMEN Ordering Facility: [facility] Address: [address] [place] [address] Performed By: #### 2 532-0, 34712-0, 3083-1 #### [facility] CLIA [id number] [address] [place] [address] 56399 Protein [Mass/Vol] 6.1 g/dL Low 6.3-8.0 [facility] Comment on above: Order Comment: Michael feng Type: BLOOD SPECIMEN Ordering Facility: [facility] Address: [address] [place] [address] Performed By: #### 2 532-0, 58510-5, 3084-1 #### [facility] CLIA [id number] [address] [place] [address] 46558 Sodium [Moles/Vol] 137 mmol/L Normal 136-144 [facility] Comment on above: Order Comment: Speci men Type: BLOOD SPECIMEN Ordering Facility: [facility] Address: [address] [place] [address] Performed By: #### 2 532-0, 00075-7, 3083-1 #### [facility] CLIA [id number] [address] [place] [address] 20679 Urea nitrogen [Mass/Vol] 36 mg/dL High 9-24 [facility] Comment on above: Order Comment: Speci men Type: BLOOD SPECIMEN Ordering Facility: [facility] Address: [address] [place] [address] Performed By: #### 2 532-0, 69489-3, 3083- #### [facility] CLIA [id number] [address] [place] [address] 50505 LDH SerPl-cCncon 07-16-2023 LDH [Catalytic activity/Vol] 206 U/L Normal 135-225 [facility] Comment on above: Order Comment: Speci men Type: BLOOD SPECIMEN Ordering Facility: [facility] Address: [address] [place] [address] Performed By: #### 2 532-0, 92625-3, 3083- #### [facility] CLIA [id number] [address] [place] [address] 13579 Urate SerPl-mCncon 3 Urate [Mass/Vol] 5.5 mg/dL Normal 4.0-8.1 [facility] Comment on above: Order Comment: Speci men Type: BLOOD SPECIMEN Ordering Facility: [facility] Address: [address] [place] [address] Performed By: #### 2 532-0, 87706-7, 3083-1 #### [facility] CLIA [id number] [address] [place] [address] 51274 CBC W Auto Differential pane l (Bld)on 12-27-2022 Basophils (Bld) [#/Vol] 0.00 10*3/uL Normal <0.11 [facility] Comment on above: Order Comment: Speci men Type: BLOOD SPECIMEN Ordering Facility: [facility] Address: [address] [place] [address] Performed By: #### 5 7021-8 #### [facility] CLIA [id number] [address] [place] [address] LAB CLIA [id number] [address] [place] [address] [place] Basophils/100 WBC (Bld) 0.0 % Normal [facility] Comment on above: Order Comment: Speci men Type: BLOOD SPECIMEN Ordering Facility: [facility] Address: [address] [place] [address] Performed By: #### 5 7021-8 #### [facility] CLIA [id number] [address] [place] [address] LAB CLIA [id number] [address] [place] [address] [place] Differential cell count method Nom (Bld) Manual Normal [facility] Comment on above: Order Comment: Speci men Type: BLOOD SPECIMEN Ordering Facility: [facility] Address: [address] [place] [address] Performed By: #### 5 7021-8 #### [facility] CLIA [id number] [address] [place] [address] LAB CLIA [id number] [address] [place] [address] [place] Eosinophils (Bld) [#/Vol] 0.19 10*3/uL Normal <0.46 [facility] Comment on above: Order Comment: Speci men Type: BLOOD SPECIMEN Ordering Facility: [facility] Address: [address] [place] [address] Performed By: #### 5 7021-8 #### [facility] CLIA [id number] [address] [place] [address] LAB CLIA [id number] [address] [place] [address] [place] Eosinophils/100 WBC (Bld) 1.0 % Normal [facility] Comment on above: Order Comment: Speci men Type: BLOOD SPECIMEN Ordering Facility: [facility] Address: [address] [place], [place] [address] Performed By: #### 5 7021-8 #### [facility] CLIA [id number] [address] [place] [address] LAB CLIA [id number] [address] [place] [address] [place] Erythrocyte distribution width (RBC) [Ratio] 12.5 % Normal 11.5-15.0 [facility] Comment on above: Order Comment: Speci men Type: BLOOD SPECIMEN Ordering Facility: [facility] Address: [address] [place] [address] Performed By: #### 5 7021-8 #### [facility] CLIA [id number] [address] [place] [address] LAB CLIA [id number] [address] [place] [address] [place] Hematocrit (Bld) [Volume fraction] 36.7 % Low 39.0-51.0 [facility] Comment on above: Order Comment: Speci men Type: BLOOD SPECIMEN Ordering Facility: [facility] Address: [address] [place] [address] Performed By: #### 5 7021-8 #### [facility] CLIA [id number] [address] [place] [address] LAB CLIA [id number] [address] [place] [address] [place] Hemoglobin (Bld) [Mass/Vol] 13.1 g/dL Normal 13.0-17.0 [facility] Comment on above: Order Comment: Speci men Type: BLOOD SPECIMEN Ordering Facility: [facility] Address: [address] [place] [address] Performed By: #### 5 7021-8 #### [facility] CLIA [id number] [address] [place] [address] LAB CLIA [id number] [facility] [place] [address] [place] Lymphocytes (Bld) [#/Vol] 10.47 10*3/uL High 1.00-4.00 [facility] Comment on above: Order Comment: Speci men Type: BLOOD SPECIMEN Ordering Facility: [facility] Address: [address] Performed By: #### 5 7021-8 #### [facility] CLIA [id number] [address] [place] [address] LAB CLIA [id number] [address] [place] [address] [place] Lymphocytes/100 WBC (Bld) 54.0 % Normal [facility] Comment on above: Order Comment: Speci men Type: BLOOD SPECIMEN Ordering Facility: [facility] Address: [address] Performed By: #### 5 7021-8 #### [facility] CLIA [id number] [address] [place] [address] LAB CLIA [id number] [address] [place] [address] [place] MCH (RBC) [Entitic mass] 31.2 pg Normal 26.0-34.0 [facility] Comment on above: Order Comment: Speci men Type: BLOOD SPECIMEN Ordering Facility: [facility] Address: [address] [place] [address] Performed By: #### 5 7021-8 #### [facility] CLIA [id number] [address] [place] [address] LAB CLIA [id number] [address] [place], [place] [id number] [place] MCHC (RBC) [Mass/Vol] 35.7 g/dL Normal 30.5-36.0 [facility] Comment on above: Order Comment: Speci men Type: BLOOD SPECIMEN Ordering Facility: [facility] Address: [address] [place] [address] Performed By: #### 5 7021-8 #### [facility] CLIA [id number] [address] [place] [address] LAB CLIA [id number] [address] [place] [address] [place] MCV (RBC) [Entitic vol] 87.4 fL Normal 80.0-100.0 [facility] Comment on above: Order Comment: Speci men Type: BLOOD SPECIMEN Ordering Facility: [facility] Address: [address] [place], [place] [address] Performed By: #### 5 7021-8 #### [facility] CLIA [id number] [address] [place] [address] LAB CLIA [id number] [address] [place] [address] [place] Monocytes (Bld) [#/Vol] 0.58 10*3/uL Normal <0.87 [facility] Comment on above: Order Comment: Speci men Type: BLOOD SPECIMEN Ordering Facility: [facility] Address: [address] [place], [place] [address] Performed By: #### 5 7021-8 #### [facility] CLIA [id number] [address] [place] [address] LAB CLIA [id number] [address] [place] [address] [place] Monocytes/100 WBC (Bld) 3.0 % Normal [facility] Comment on above: Order Comment: Speci men Type: BLOOD SPECIMEN Ordering Facility: [facility] Address: [address] [place], [place] [address] Performed By: #### 5 7021-8 #### [facility] CLIA [id number] [address] [place] [address] LAB CLIA [id number] [address] [place] [address] [place] Neutrophils (Bld) [#/Vol] 8.14 10*3/uL High 1.45-7.50 [facility] Comment on above: Order Comment: Speci men Type: BLOOD SPECIMEN Ordering Facility: [facility] Address: [address] Performed By: #### 5 7021-8 #### [facility] CLIA [id number] [address] [place] [address] LAB CLIA [id number] [address] [place] [address] [place] Neutrophils/100 WBC (Bld) 42.0 % Normal [facility] Comment on above: Order Comment: Speci men Type: BLOOD SPECIMEN Ordering Facility: [facility] Address: [address] [place] [address] Performed By: #### 5 7021-8 #### [facility] CLIA [id number] [address] [place] [address] LAB CLIA [id number] [address] [place] [address] [place] Nucleated RBC (Bld) [#/Vol] 10*3/uL Normal <0.01 [facility] Comment on above: Order Comment: Speci men Type: BLOOD SPECIMEN Ordering Facility: [facility] Address: [address] [place] [address] Performed By: #### 5 7021-8 #### [facility] CLIA [id number] [address] [place] [address] LAB CLIA [id number] [address] [place] [address] [place] Nucleated RBC/100 WBC (Bld) [Ratio] 0.0 /100 WBC Normal [facility] Comment on above: Order Comment: Speci men Type: BLOOD SPECIMEN Ordering Facility: [facility] Address: [address] [place] [address] Performed By: #### 5 7021-8 #### [facility] CLIA [id number] [address] [place] [address] LAB CLIA [id number] [address] [place] [address] [place] Ovalocytes LM Ql (Bld) Few Normal [facility] Comment on above: Order Comment: Speci men Type: BLOOD SPECIMEN Ordering Facility: [facility] Address: [address] [place] [address] Performed By: #### 5 7021-8 #### [facility] CLIA [id number] [address] [place] [address] LAB CLIA [id number] [address] [place] [address] [place] Platelet mean volume (Bld) [Entitic vol] 10.0 fL Normal 9.0-12.7 [facility] Comment on above: Order Comment: Speci men Type: BLOOD SPECIMEN Ordering Facility: [facility] Address: [address] [place] [address] Performed By: #### 5 7021-8 #### [facility] CLIA [id number] [address] [place] [address] LAB CLIA [id number] [address] [place] [address] [place] Platelets (Bld) [#/Vol] 186 10*3/uL Normal 150-400 [facility] Comment on above: Order Comment: Speci men Type: BLOOD SPECIMEN Ordering Facility: [facility] Address: [address] [place] [address] Performed By: #### 5 7021-8 #### [facility] CLIA [id number] [address] [place] [address] LAB CLIA [id number] [address] [place] [address] [place] Platelets Estimate (Bld) [#/Vol] Adequate Normal [facility] Comment on above: Order Comment: Speci men Type: BLOOD SPECIMEN Ordering Facility: [facility] Address: [address] [place] [address] Performed By: #### 5 7021-8 #### [facility] CLIA [id number] [address] [place] [address] LAB CLIA [id number] [address] [place] [address] [place] RBC (Bld) [#/Vol] 4.20 10*6/uL Normal 4.20-6.00 [facility] Comment on above: Order Comment: Speci men Type: BLOOD SPECIMEN Ordering Facility: [facility] Address: [address] [place] [address] Performed By: #### 5 7021-8 #### [facility] CLIA [id number] [address] [place] [address] LAB CLIA [id number] [address] [place] [address] [place] RED CELL MORPH Reviewed: see result s of individual morphologies Normal [facility] Comment on above: Order Comment: Speci men Type: BLOOD SPECIMEN Ordering Facility: [facility] Address: [address] [place] [address] Performed By: #### 5 7021-8 #### [facility] CLIA [id number] [address] [place] [address] LAB CLIA [id number] [address] [place] [address] [place] WBC (Bld) [#/Vol] 19.38 10*3/uL High 3.70-11.00 [facility] Comment on above: Order Comment: Speci men Type: BLOOD SPECIMEN Ordering Facility: [facility] Address: [address] [id number] Performed By: #### 5 7021-8 #### [facility] CLIA [id number] [address] [place] [address] [facility] CLIA [id number] [address] [facility] [place] [address] [facility] CNOVSPon 12-27-2022 CNOVSP Visit (SP) Office (HEMASA) ILA MOREJON ([id number]) 1945 M Date Time Provider Department 12/27/22 2:00 PM FARAZ BECKHAM During your visit today, we recorded the following information about you: Temperature Pulse Respiration Blood pressure 97.6 degrees 45/minute 16/minute 146/56 Weight Height 77.2 kg 1.715 m Faraz Beckham MD 01/04/2023 7:53 AM Signed NAME: Ila Morejon CLINIC NO.: [id number] DATE OF SERVICE: December 27, 2022 (Lory) Some elements in this clinic note that are critical to medical decision making have been carefully reviewed and included from a prior clinic note dated: June 27, 2022 (Lory) Referring Provider: Cruzito Mcgrath Additional Clinicians involved in Ila Morejon's care: DIAGNOSIS: lymphocytosis ASSESSMENT: 77 year old man with DM HTN, PVD presenting with lymphocytosis and diagnosed with CLL early June 2022. 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 He is asymptomatic with no indications for treatment. Continue follow-up plans as previously arranged. PLAN: RTC in 6 months as previously arranged, with labs same day. - HPI: CASE HISTORY: Reverse Chronological Order 06/21/2022 - Flow cytometry consistent with CLL positive for CD5 CD19 CD20 CD23 CD45 CD200, monotypic kappa, negative CD10. Small subset of T cells consistent with T-cell large granular lymphocytes and clonal expansion of the beta 20 family. Can be associated with presence of B-cell lymphoproliferative disorder, infections, drug reactions. 06/06/2022 - CBC 18.8>14.0/39.7<185 Abs. Lymph: 10.1 Updated Visit, December 27, 2022: 11 year anniversary today - going to dinner with his Sabrina. Overall he is doing very well. He has no progression on CLL or B symptoms that would suggest he needs intervention. No evidence of T-cell LGL clone is worsening. Updated Visit, June 27, 2022: Telephone only for 8 minutes Called Alexis as requested and spoke to him and his Sabrina. We discussed results from laboratories obtained at his last visit. Findings were consistent with CLL. He additionally has a small indication of a T-cell LGL clone. Continue following. No complaints. Initial Visit, June 21, 2022: Ila Morejon presents today Hematology and Oncology evaluation. He is a 76 year old male who is accompanied by his Sabrina for workup of lymphocytosis. He is asymptomatic and we discussed that this most likely represents CLL. He has a + spleen on exam but otherwise no other lympho-megaly. No B symptoms. We thorouhly reviewed the natural history and etiology of CLL as his presumptive diagnosis. We also discussed the classic time course of this disease process as well as potential treatments. - REVIEW OF SYSTEMS Per HPI and otherwise negative by full review of organ systems. - ECOG PERFORMANCE STATUS: 0 PHYSICAL EXAMINATION: Vitals: BP 146/56 Pulse 45 Temp (Src) 97.6 (Temporal) Resp 16 Ht 5' 7.5 (1.72m) Wt 170 lb 3.2 oz (77.2kg) SpO2 98% BMI 26.25 kg/(m2). Body surface area is 1.92 meters squared. Exam limited to gross visualization where appropriate. Gen.: This is an age-appropriate patient in no acute distress. Head: Appears atraumatic with no visible lesions. Eyes: Pupils equally round and reactive to light, extraocular muscles are intact. Neck: Supple. Respiratory: Appears to be respiring comfortably. Neurologic: Nonfocal to gross visualization. Alert and oriented ?3. Psychiatric: No evidence of inappropriate anxiety or depression. Skin: Visible areas of skin without rash, lesions, wounds or petechiae. - ALLERGIES: ALLERGIES No Known Allergies MEDICATIONS: amLODIPine (NORVASC) 5 mg tablet Take 5 mg by mouth every morning. cholecalciferol, vitamin D3, 10 mcg (400 unit) cap Take 2,000 Units by mouth once daily. insulin glargine (LANTUS) 100 unit/mL injection Inject subcutaneously as directed. ascorbic acid, vitamin C, (VITAMIN C) 500 mg tablet Take 500 mg by mouth once daily. Zinc 50 mg tab Take 50 mg by mouth once daily. coenzyme Q10 (COENZYME Q-10) 100 mg cap capsule Take 100 mg by mouth once daily. carvedilol (COREG) 6.25 mg tablet Take 6.25 mg by mouth twice daily with meals. lisinopril (ZESTRIL, PRINIVIL) 40 mg tablet Take 40 mg by mouth once daily. pravastatin (PRAVACHOL) 20 mg tablet Take 20 mg by mouth once daily. clopidogrel (PLAVIX) 75 mg tablet Take 75 mg by mouth once daily. metFORMIN (GLUCOPHAGE) 500 mg tablet Take 500 mg by mouth daily with breakfast. glipiZ (more content not included)... Normal [facility] Comprehensive metabolic 2000 panelon 12-27-2022 Albumin [Mass/Vol] 3.6 g/dL Low 3.9-4.9 [facility] Comment on above: Order Comment: Speci men Type: BLOOD SPECIMEN Ordering Facility: [facility] Address: [address] [place] [address] Performed By: #### 2 4323-8, 2532-0 #### [facility] CLIA [id number] [address] [place] [address] ALP [Catalytic activity/Vol] 119 U/L High 38-113 [facility] Comment on above: Order Comment: Speci men Type: BLOOD SPECIMEN Ordering Facility: [facility] Address: [address] [place] [address] Performed By: #### 2 4323-8, 2531-0 #### [facility] CLIA [id number] [address] [place] [address] ALT [Catalytic activity/Vol] 19 U/L Normal 10-54 [facility] Comment on above: Order Comment: Speci men Type: BLOOD SPECIMEN Ordering Facility: [facility] Address: [address] [place] [address] Performed By: #### 2 4323-8, 2531-0 #### [facility] CLIA [id number] [address] [place] [address] Anion gap [Moles/Vol] 7 mmol/L Low 9-18 [facility] Comment on above: Order Comment: Speci men Type: BLOOD SPECIMEN Ordering Facility: [facility] Address: [address] Performed By: #### 2 4328, 2531-0 #### [facility] CLIA [id number] [address] [place] [address] AST [Catalytic activity/Vol] 15 U/L Normal 14-40 [facility] Comment on above: Order Comment: Speci men Type: BLOOD SPECIMEN Ordering Facility: [facility] Address: [address] [address] Performed By: #### 2 4328, 2531-0 #### [facility] CLIA [id number] [address] [place] [address] Bilirubin [Mass/Vol] 0.5 mg/dL Normal 0.2-1.3 [facility] Comment on above: Order Comment: Speci men Type: BLOOD SPECIMEN Ordering Facility: [facility] Address: [address] [address] Performed By: #### 2 4328, 2531-0 #### [facility] CLIA [id number] [address] [place] [address] Calcium [Mass/Vol] 9.0 mg/dL Normal 8.5-10.2 [facility] Comment on above: Order Comment: Speci men Type: BLOOD SPECIMEN Ordering Facility: [facility] Address: [address] Performed By: #### 2 4328, 0 #### [facility] CLIA [id number] [address] [place] [address] Chloride [Moles/Vol] 103 mmol/L Normal 97-105 [facility] Comment on above: Order Comment: Speci men Type: BLOOD SPECIMEN Ordering Facility: [facility] Address: [address] Performed By: #### 2 4328, 2531-0 #### [facility] CLIA [id number] [address] [place] [address] CO2 [Moles/Vol] 24 mmol/L Normal 22-30 [facility] Comment on above: Order Comment: Speci men Type: BLOOD SPECIMEN Ordering Facility: [facility] Address: [address] [address] Performed By: #### 2 4323-8, 2532-0 #### [facility] CLIA [id number] [address] [place] [address] Creatinine [Mass/Vol] 1.45 mg/dL High 0.73-1.22 [facility] Comment on above: Order Comment: Speci men Type: BLOOD SPECIMEN Ordering Facility: [facility] Address: [address] [place] [address] Performed By: #### 2 4323-8, 2531-0 #### [facility] CLIA [id number] [address] [place] [address] ESTIMATED GLOMERULAR FILTRATION RATE 50 mL/min/1.73m??? Low >=60 [facility] Comment on above: Order Comment: Speci men Type: BLOOD SPECIMEN Ordering Facility: [facility] Address: [address] [place] [address] Result Comment: Silvana mated Glomerular Filtration Rate (eGFR) is calculated using the 2020 CKD-EPI creatinine equation. This equation utilizes serum creatinine, sex, and age as parameters. The creatinine assay has traceable calibration to isotope dilution-mass spectrometry. Refer to KDIGO guidelines for clinical interpretation. In patients with unstable renal function, e.g. those with acute kidney injury, the eGFR may not accurately reflect actual GFR. Performed By: #### 2 4323-8, 2-0 #### [facility] CLIA [id number] [address] [place] [address] Glucose [Mass/Vol] 268 mg/dL High 74-99 [facility] Comment on above: Order Comment: Speci men Type: BLOOD SPECIMEN Ordering Facility: [facility] Address: [address] [place] [address] Result Comment: The [place] [employer] (ADA) provides guidance for cutoff values for fasting glucose and random glucose. The ADA defines fasting as no caloric intake for at least 8 hours. Fasting plasma glucose results between 100 to 125 mg/dL indicate increased risk for diabetes (prediabetes). Fasting plasma glucose results greater than or equal to 126 mg/dL meet the criteria for diagnosis of diabetes. In the absence of unequivocal hyperglycemia, results should be confirmed by repeat testing. In a patient with classic symptoms of hyperglycemia or hyperglycemic crisis, random plasma glucose results greater than or equal to 200 mg/dL meet the criteria for diagnosis of diabetes. Reference: Standards of Medical Care in Diabetes 2016, [place] [employer]. Diabetes Care. 2016.39(Suppl 1). Performed By: #### 2 4323-8, 2531-0 #### [facility] CLIA [id number] [address] [place] [address] Potassium [Moles/Vol] 4.8 mmol/L Normal 3.7-5.1 [facility] Comment on above: Order Comment: Speci men Type: BLOOD SPECIMEN Ordering Facility: [facility] Address: [address] [address] Performed By: #### 2 43209-25, 0 #### [facility] CLIA [id number] [address] [place] [address] Protein [Mass/Vol] 5.8 g/dL Low 6.3-8.0 [facility] Comment on above: Order Comment: Speci men Type: BLOOD SPECIMEN Ordering Facility: [facility] Address: [address] [address] Performed By: #### 2 4323-02, 0 #### [facility] CLIA [id number] [address] [place] [address] Sodium [Moles/Vol] 134 mmol/L Low 136-144 [facility] Comment on above: Order Comment: Speci men Type: BLOOD SPECIMEN Ordering Facility: [facility] Address: [address] [address] Performed By: #### 2 43209-25, 2531-0 #### [facility] CLIA [id number] [address] [place] [address] Urea nitrogen [Mass/Vol] 26 mg/dL High 9-24 [facility] Comment on above: Order Comment: Speci men Type: BLOOD SPECIMEN Ordering Facility: [facility] Address: [address] [place], [place] [address] Performed By: #### 2 4323-8, 2531-0 #### [facility] CLIA [id number] [address] [place] [address] LDH SerPl-cCncon 12-27-2022 LDH [Catalytic activity/Vol] 170 U/L Normal 135-225 [facility] Comment on above: Order Comment: Speci men Type: BLOOD SPECIMEN Ordering Facility: [facility] Address: [address] [place] [address] Result Comment: Hemo lysis present. The origin of the hemolysis, in vitro versus an in vivo hemolytic process, cannot be distinguished via this assay alone. In vitro hemolysis may lead to non-physiological (spurious) elevation in lactate dehydrogenase (LDH) results. The result should be interpreted in context of the clinical setting and other test results. Suggest reorder as clinically indicated. Performed By: #### 2 4323-8, 2531-0 #### [facility] CLIA [id number] [address] [place] [address] B2 MICROGLOBULIN Bon 022 Syax-9-Puzxdbwunvlve [Mass/Vol] 4.5 ug/mL High <3.1 mg/L [facility] CBC W Auto Differential pane l (Bld)on 06-22-2022 Basophils (Bld) [#/Vol] 0.00 10*3/uL <0.11 k/uL [facility] Basophils/100 WBC (Bld) 0.0 % [facility] Differential cell count method Nom (Bld) Manual [facility] Eosinophils (Bld) [#/Vol] 0.33 10*3/uL <0.46 k/uL [facility] Eosinophils/100 WBC (Bld) 2.0 % [facility] Erythrocyte distribution width (RBC) [Ratio] 12.5 % 11.5 - 15.0 % [facility] Hematocrit (Bld) [Volume fraction] 43.5 % 39.0 - 51.0 % [facility] Hemoglobin (Bld) [Mass/Vol] 15.1 g/dL 13.0 - 17.0 g/dL [facility] Lymphocytes (Bld) [#/Vol] 9.25 10*3/uL High 1.00 - 4.00 k/uL [facility] Lymphocytes/100 WBC (Bld) 56.0 % [facility] MCH (RBC) [Entitic mass] 30.8 pg 26.0 - 34.0 pg [facility] MCHC (RBC) [Mass/Vol] 34.7 g/dL 30.5 - 36.0 g/dL [facility] MCV (RBC) [Entitic vol] 88.8 fL 80.0 - 100.0 fL [facility] Monocytes (Bld) [#/Vol] 1.16 10*3/uL High <0.87 k/uL [facility] Monocytes/100 WBC (Bld) 7.0 % [facility] Neutrophils (Bld) [#/Vol] 5.78 10*3/uL 1.45 - 7.50 k/uL [facility] Neutrophils/100 WBC (Bld) 35.0 % [facility] Nucleated RBC (Bld) [#/Vol] <0.01 k/uL [facility] Nucleated RBC/100 WBC (Bld) [Ratio] 0.0 /100 WBC [facility] Ovalocytes LM Ql (Bld) Few [facility] Platelet mean volume (Bld) [Entitic vol] 10.4 fL 9.0 - 12.7 fL [facility] Platelets (Bld) [#/Vol] 204 10*3/uL 150 - 400 k/uL [facility] Platelets Estimate (Bld) [#/Vol] Adequate [facility] RBC (Bld) [#/Vol] 4.90 10*6/uL 4.20 - 6.0 0 m/uL [facility] Red Cell Morph Reviewed: see result s of individual morphologies [facility] WBC (Bld) [#/Vol] 16.52 10*3/uL High 3.70 - 11 .00 k/uL [facility] Direct antiglobulin test.avelina y specific reagent Ql (RBC)on 06-22-2022 DAGT, Polyspecific AHG Negative [facility] Comprehensive metabolic 2000 panelon 06-21-2022 Albumin [Mass/Vol] 3.7 g/dL Low 3.9 - 4.9 g/dL [facility] ALP [Catalytic activity/Vol] 117 U/L High 38 - 113 U/L [facility] ALT [Catalytic activity/Vol] 9 U/L Low 10 - 54 U/L [facility] Anion gap [Moles/Vol] 3 mmol/L Low 9 - 18 mmol/L [facility] AST [Catalytic activity/Vol] 13 U/L Low 14 - 40 U/L [facility] Bilirubin [Mass/Vol] 0.4 mg/dL 0.2 - 1 .3 mg/dL [facility] Calcium [Mass/Vol] 9.4 mg/dL 8.5 - 10. 2 mg/dL [facility] Chloride [Moles/Vol] 108 mmol/L High 97 - 10 5 mmol/L [facility] CO2 [Moles/Vol] 27 mmol/L 22 - 30 mmol/L [facility] Creatinine [Mass/Vol] 1.19 mg/dL 0.73 - 1.22 mg/dL [facility] Estimated Glomerular Filtration Rate 64 mL/min/1.73m >=60 mL/min/1.73m [facility] Glucose [Mass/Vol] 180 mg/dL High 74 - 99 mg/dL [facility] Potassium [Moles/Vol] 5.4 mmol/L High 3.7 - 5.1 mmol/L [facility] Protein [Mass/Vol] 6.2 g/dL Low 6.3 - 8.0 g/dL [facility] Sodium [Moles/Vol] 138 mmol/L 136 - 144 mmol/L [facility] Urea nitrogen [Mass/Vol] 31 mg/dL High 9 - 24 mg/dL [facility] LD LACTATE DEHYDROon 022 LDH [Catalytic activity/Vol] 179 U/L 135 - 225 U/L [facility] URIC ACID BLOODon 06-21-2022 Urate [Mass/Vol] 4.5 mg/dL 4.0 - 8.1 mg/dL [facility] CBC AUTO DIFFon 06-06-2022 BASO # 0.1 103/ul Normal 0.0-0.1 [facility] Comment on above: Performed By: #### C BC #### [facility] [address] [address] [address] Lara Askew Basophils/100 WBC (Bld) 0.5 % Normal 0.2-2.0 [facility] Comment on above: Performed By: #### C BC #### [facility] [address] [place] [address] Dr. Lara Askew EO # 0.3 103/ul Normal 0.0-0.7 [facility] Comment on above: Performed By: #### C BC #### [facility] [address] [place] [address] Dr. Lara Askew Eosinophils/100 WBC (Bld) 1.6 % Normal 0.9-7.0 [facility] Comment on above: Performed By: #### C BC #### [facility] [address] [place] [address] Dr. Lara Askew Erythrocyte distribution width (RBC) [Ratio] 12.5 % Normal 11.0-15.0 [facility] Comment on above: Performed By: #### C BC #### [facility] [address] [place] [address] Dr. Lara Askew Hematocrit (Bld) [Volume fraction] 39.7 % Critically low 42.0-54.0 [facility] Comment on above: Performed By: #### C BC #### [facility] [address] [place] [address] Dr. Lara Askew Hemoglobin (Bld) [Mass/Vol] 14.0 g/dL Normal 14.0-18.0 [facility] Comment on above: Performed By: #### C BC #### [facility] [address] [place] [address] Dr. Lara Askew IG # 0.07 10e3/ul Critically high 0.00-0.03 [facility] Comment on above: Performed By: #### C BC #### [facility] [address] [place] [address] Dr. Lara Askew IG % 0.4 % Normal 0.0-0.5 [facility] Comment on above: Performed By: #### C BC #### [facility] [address] [place] [address] Dr. Lara Askew LYMPH # 10.1 103/ul Critically high 1.2-3.8 [facility] Comment on above: Performed By: #### C BC #### [facility] [address] [place] [address] Dr. Lara Askew Lymphocytes/100 WBC (Bld) 53.6 % Normal 20.5-60.0 [facility] Comment on above: Performed By: #### C BC #### [facility] [address] [place] [address] Dr. Lara Askew MANUAL DIFF REQ NO Normal [facility] Comment on above: Performed By: #### C BC #### [facility] [address] [place] [address] Dr. Lara Askew MCH (RBC) [Entitic mass] 31.5 pg Normal 25.9-34.0 [facility] Comment on above: Performed By: #### C BC #### [facility] [address] [place] [address] Dr. Lara Askew MCHC (RBC) [Mass/Vol] 35.3 g/dL Critically high 29.9-35.2 [facility] Comment on above: Performed By: #### C BC #### [facility] [address] [place] [address] Dr. Lara Askew MCV (RBC) [Entitic vol] 89.2 fL Normal 80.0-94.0 [facility] Comment on above: Performed By: #### C BC #### [facility] [address] [place] [address] Dr. Lara Askew MONO # 0.7 103/ul Normal 0.3-0.8 [facility] Comment on above: Performed By: #### C BC #### [facility] [address] [place] [address] Dr. Lara Askew Monocytes/100 WBC (Bld) 3.7 % Normal 1.7-12.0 [facility] Comment on above: Performed By: #### C BC #### [facility] [address] [place] [address] Dr. Lara Askew NEUT # 7.6 103/ul Critically high 1.4-6.5 [facility] Comment on above: Performed By: #### C BC #### [facility] [address] [address] [address] Lara Askew Neutrophils/100 WBC (Bld) 40.2 % Critically low 43.0-75.0 [facility] Comment on above: Performed By: #### C BC #### [facility] [address] [address] [address] Lara Askew Platelet mean volume (Bld) [Entitic vol] 11.0 fL Normal 9.5-13.5 [facility] Comment on above: Performed By: #### C BC #### [facility] [address] [place] [address] Dr. Lara Askew PLT 185 103/ul Normal 150-450 [facility] Comment on above: Performed By: #### C BC #### [facility] [address] [place] [address] Dr. Lara Askew RBC 4.45 106/ul Critically low 4.70-6.10 [facility] Comment on above: Performed By: #### C BC #### [facility] [address] [place] [address] Dr. Lara Askew WBC 18.8 103/ul Critically high 4.0-11.0 [facility] Comment on above: Performed By: #### C BC #### [facility] [address] [place] [address] Dr. Lara Askew GLYCOHEMOGLOBIN A1Con 2021 ADA RECOMMENDATION SEE BELOW Normal [facility] Comment on above: Result Comment: ADA RECOMMENDED LIMIT 4.0 - 6.0 ADA THERAPEUTIC TARGET < 7.0 ACTION SUGGESTED > 7.0 Performed By: #### A 1C #### [facility] [address] [place] [address] Dr. Lara Askew Glucose [Mass/Vol] 148 mg/dL Normal [facility] Comment on above: Performed By: #### A 1C #### [facility] [address] [place] [address] Dr. Lara Askew HbA1c (Bld) [Mass fraction] 6.8 % Critically high 4.5-6.2 [facility] Comment on above: Performed By: #### A 1C #### [facility] [address] [place] [address] Dr. Lara Askew LIPID PROFILEon 06-06-2022 CHOL-HDL RATIO NORM SEE BELOW Normal [facility] Comment on above: Result Comment: 3.3 - 4.4 LOW RISK 4.4 - 7.1 AVERAGE RISK 7.1 - 11.0 MODERATE RISK >11.0 HIGH RISK Performed By: #### L IVER, LIPID, BMP #### [facility] [address] [place] [address] Dr. Lara Askew Cholesterol [Mass/Vol] 113 mg/dL Normal <=200 [facility] Comment on above: Performed By: #### L IVER, LIPID, BMP #### [facility] [address] [place] [address] Dr. Lara Askew Cholesterol in HDL [Mass/Vol] 51 mg/dL Normal 40-60 [facility] Comment on above: Performed By: #### L IVER, LIPID, BMP #### [facility] [address] [place] [address] Dr. Lara Askew Cholesterol in LDL [Mass/Vol] 47.6 mg/dL Normal [facility] Comment on above: Performed By: #### L IVER, LIPID, BMP #### [facility] [address] [place] [address] Dr. Lara Askew Cholesterol.total/Ch olesterol in HDL [Mass ratio] 2.2 {ratio} Normal [facility] Comment on above: Performed By: #### L IVER, LIPID, BMP #### [facility] [address] [place] [address] Dr. Lara Askew HDL NORMAL > or = 60 mg/dl - LO W CARDIOVASCULAR RISK <40 mg/dl - HIGH CARDIOVASCULAR RISK Normal [facility] Comment on above: Performed By: #### L IVER, LIPID, BMP #### [facility] [address] [place] [address] Dr. Lara Askew LDL CALC NORMAL SEE BELOW Normal [facility] Comment on above: Result Comment: <100 mg/dl OPTIMAL 100 - 129 mg/dl NEAR OR ABOVE OPTIMAL 130 - 159 mg/dl BORDERLINE HIGH 160 - 189 mg/dl HIGH >190 mg/dl VERY HIGH Performed By: #### L IVER, LIPID, BMP #### [facility] [address] [address] [address] Lara Askew Triglyceride [Mass/Vol] 72 mg/dL Normal <=150 [facility] Comment on above: Performed By: #### L IVER, LIPID, BMP #### [facility] [address] [address] [address] Lara Askew VLDL CALC 14.4 mg/dL Normal [facility] Comment on above: Performed By: #### L IVER, LIPID, BMP #### [facility] [address] [place] [address] Dr. Lara Askew LIVER PROFILEon 06-06-2022 Albumin [Mass/Vol] 3.0 g/dL Critically low 3.4-5.0 [facility] Comment on above: Performed By: #### L IVER, LIPID, BMP #### [facility] [address] [address] [address] Lara Askew Albumin/Globulin [Mass ratio] 1.0 {ratio} Normal [facility] Comment on above: Performed By: #### L IVER, LIPID, BMP #### [facility] [address] [address] [address] Lara Askew ALP [Catalytic activity/Vol] 93 U/L Normal 46-116 [facility] Comment on above: Performed By: #### L IVER, LIPID, BMP #### [facility] [address] [address] [address] Lara Askew ALT [Catalytic activity/Vol] 23 U/L Normal 16-63 [facility] Comment on above: Performed By: #### L IVER, LIPID, BMP #### [facility] [address] [address] [address] Lara Askew AST [Catalytic activity/Vol] 21 U/L Normal 15-37 [facility] Comment on above: Performed By: #### L IVER, LIPID, BMP #### [facility] [address] [place] [address] Dr. Lara Askew BILI, CONJUGATED 0.1 mg/dL Normal 0.0-0.2 [facility] Comment on above: Performed By: #### L IVER, LIPID, BMP #### [facility] [address] [place] [address] Dr. Lara Askew Bilirubin [Mass/Vol] 0.5 mg/dL Normal 0.2-1.0 [facility] Comment on above: Performed By: #### L IVER, LIPID, BMP #### [facility] [address] [place] [address] Dr. Lara Askew Globulin (S) [Mass/Vol] 3.1 g/dL Normal [facility] Comment on above: Performed By: #### L IVER, LIPID, BMP #### [facility] [address] [place] [address] Dr. Lara Askew Protein [Mass/Vol] 6.1 g/dL Critically low 6.4-8.2 [facility] Comment on above: Performed By: #### L IVER, LIPID, BMP #### [facility] [address] [place] [address] Dr. Lara Askew MICROALBUMIN, RAND URon 05-21 mALB 24.1 mg/L Normal <=30.0 [facility] Comment on above: Performed By: #### M ALBR #### [facility] [address] [place] [address] Dr. Lara Askew PERIPHERAL SMEARon 2 Pathologist Cyto stain Nom (Cvx/Vag) [ID] DR. ROSEMARIE DOE Normal [facility] Comment on above: Result Comment: Revi ew of peripheral smear reveals normal RBC's and platelets. There is leukocytosis with neutrophilia and absolute lymphocytosis. The lymphocytes have reactive features however smudge cells are present. No prolymphocytes, blast cells or immature blasts are seen. The findings could represent a reactive process, however if reactive causes are excluded and if lymphocytosis persists, further evaluation with flow cytometric analysis of peripheral blood is recommended to evaluate for a lymphoproliferative disorder. Clinical correlation is recommended. Aliya Doe MD 06-10-22 Performed By: #### P ERSMR #### [facility] [address] [place] [address] Dr. Lara Askew PROF CHEM 8 (BAS METB)on Anion gap [Moles/Vol] 9.4 mmol/L Normal [facility] Comment on above: Performed By: #### L IVER, LIPID, BMP #### [facility] [address] [place] [address] Dr. Lara Askew Calcium [Mass/Vol] 8.7 mg/dL Normal 8.5-10.1 [facility] Comment on above: Performed By: #### L IVER, LIPID, BMP #### [facility] [address] [place] [address] Dr. Lara Askew Chloride [Moles/Vol] 105 mmol/L Normal 98-107 [facility] Comment on above: Performed By: #### L IVER, LIPID, BMP #### [facility] [address] [place] [address] Dr. Lara Askew CO2 [Moles/Vol] 28.6 mmol/L Normal 21.0-32.0 [facility] Comment on above: Performed By: #### L IVER, LIPID, BMP #### [facility] [address] [place] [address] Dr. Lara Askew Creatinine [Mass/Vol] 1.07 mg/dL Normal 0.70-1.30 [facility] Comment on above: Performed By: #### L IVER, LIPID, BMP #### [facility] [address] [place] [address] Dr. Lara Askew EGFR-AF ZIMBABWEAN >60 Normal >=60 [facility] Comment on above: Performed By: #### L IVER, LIPID, BMP #### [facility] [address] [place] [address] Dr. Lara Askew EGFR-NON AF ZIMBABWEAN >60 Normal >=60 [facility] Comment on above: Performed By: #### L IVER, LIPID, BMP #### [facility] [address] [place] [address] Dr. Lara Askew Glucose [Mass/Vol] 147 mg/dL Critically high 74-106 [facility] Comment on above: Performed By: #### L IVER, LIPID, BMP #### [facility] [address] [place] [address] Dr. Lara Askew Potassium [Moles/Vol] 5.0 mmol/L Normal 3.5-5.1 [facility] Comment on above: Performed By: #### L IVER, LIPID, BMP #### [facility] [address] [place] [address] Dr. Lara Askew Sodium [Moles/Vol] 138 mmol/L Normal 136-145 [facility] Comment on above: Performed By: #### L IVER, LIPID, BMP #### [facility] [address] [place] [address] Dr. Lara Askew Urea nitrogen [Mass/Vol] 22.0 mg/dL Critically high 7.0-18.0 [facility] Comment on above: Performed By: #### L IVER, LIPID, BMP #### [facility] [address] [place] [address] Dr. Lara Askew Urea nitrogen/Creatinine [Mass ratio] 20.6 mg/mg Normal [facility] Comment on above: Performed By: #### L IVER, LIPID, BMP #### [facility] [address] [place] [address] Dr. Lara Askew VITAMIN D 25 OHon 06-06-2022 VIT D 25-OH 10.6 ng/mL Normal [facility] Comment on above: Performed By: #### V ITAD, PSASC #### [facility] [address] [place] [address] Dr. Lara Askew VIT D RANGES SEE BELOW Normal [facility] Comment on above: Result Comment: <20 ng/mL Vit D deficient 20 - <30 ng/mL Vit D insufficient 30 - 100 ng/mL Vit D sufficient >100 ng/mL Potential Toxicity Performed By: #### V ITAD, PSASC #### [facility] [address] [address] [address] Lara Askew GLYCOHEMOGLOBIN A1Con 2021 ADA RECOMMENDATION SEE BELOW Normal [facility] Comment on above: Result Comment: ADA RECOMMENDED LIMIT 4.0 - 6.0 ADA THERAPEUTIC TARGET < 7.0 ACTION SUGGESTED > 7.0 Performed By: #### A 1C #### [facility] [address] [address] [address] Lara Askew Glucose [Mass/Vol] 169 mg/dL Normal [facility] Comment on above: Performed By: #### A 1C #### [facility] [address] [address] [address] Lara Askew HbA1c (Bld) [Mass fraction] 7.5 % Critically high 4.5-6.2 [facility] Comment on above: Performed By: #### A 1C #### [facility] [address] [address] [address] Lara Askew Albumin [Mass/volume] in Ser um or Plasmaon 01-01-2021 Albumin [Mass/Vol] 3.5 g/dL 3.2-5.5 [facility] Creatinine and Glomerular fi ltration rate.predicted panel (S/P/Bld)on 01-01-2021 Creatinine [Mass/Vol] 1.02 mg/dL 0.64-1.27 [facility] Estimated glomerular filtrat ion rate (GFR) non- Americanon 01-01-2021 GFR/1.73 sq M.predicted among non-blacks MDRD (S/P/Bld) [Vol rate/Area] > 60 mL/Min [facility] Globulin Calc (S) [Mass/Vol] on 01-01-2021 Globulin (S) [Mass/Vol] 2.0 g/dL [facility] No Panel Informationon 01-01 Estimated GFR () > 60 mL/Min [facility] Comment on above: GFR estimated refere nce range: According to KDOQI guidelines, <60 ml/min/1.73m2 is sufficient to diagnose a patient with chronic kidney disease. Pharmacy Creatinine Clearance (Chem N/A [facility] Protein [Mass/volume] in Ser um or Plasmaon 01-01-2021 Protein [Mass/Vol] 5.5 g/dL 6.1-7.9 [facility] Serum or plasma alanine chambers otransferase measurement without P-5'-P (enzymatic activion 01-01-2021 ALT No additional P-5'-P [Catalytic activity/Vol] 28 U/L 10-60 [facility] Serum or plasma albumin/glob ulin mass ratioon 01-01-2021 Albumin/Globulin [Mass ratio] 1.8 {ratio} [facility] Serum or plasma alkaline clarisa sphatase measurement (enzymatic activity/volume)on 01-01-2021 ALP [Catalytic activity/Vol] 78 U/L 32-92 [facility] Serum or plasma aspartate am inotransferase measurement (enzymatic activity/volume)on 01-01-2021 AST [Catalytic activity/Vol] 21 U/L 10-42 [facility] Serum or plasma calcium elham urement (mass/volume)on 01-01-2021 Calcium [Mass/Vol] 9.6 mg/dL 8.2-10.2 [facility] Serum or plasma chloride daria surement (moles/volume)on 01-01-2021 Chloride [Moles/Vol] 103 mmol/L 95-114 [facility] Serum or plasma glucose elham urement (mass/volume)on 01-01-2021 Glucose [Mass/Vol] 59 mg/dL 70-100 [facility] Comment on above: ADA recommended refe rence rangeRandom Glucose Reference Range is dependent on time and content of last meal. Glucose of more than 200 mg/dL in a nonstressed, ambulatory subject supports the diagnosis of Diabetes Mellitus. Serum or plasma potassium me asurement (moles/volume)on 01-01-2021 Potassium [Moles/Vol] 4.8 mmol/L 3.5-5.1 [facility] Serum or plasma sodium measu rement (moles/volume)on 01-01-2021 Sodium [Moles/Vol] 143 mmol/L 136-146 [facility] Serum or plasma total biliru bin measurement (mass/volume)on 01-01-2021 Bilirubin [Mass/Vol] 0.9 mg/dL 0.3-1.2 [facility] Serum or plasma total carbon dioxide measurement (moles/volume)on 01-01-2021 CO2 [Moles/Vol] 28.5 mmol/L 22.0-30.0 [facility] Serum or plasma urea nitroge n measurement (mass/volume)on 01-01-2021 Urea nitrogen [Mass/Vol] 14 mg/dL 9 [facility] Vital Signs Date Time Vital Sign Value Performing Clinician Faci lity 09-03-2023 12:11-0500 Body height 172.7 cm Geneva Decdheerajophe r CAR SWEEPER-HVAC INSTALLATION TECHNICIAN Work Phone: [facility] [employer] [facility] 09-03-2023 12:11-0500 Body mass index (BMI) [Ratio] 26 kg/m2 Geneva Dechristopher CAR SWEEPER-HVAC INSTALLATION TECHNICIAN Work Phone: [facility] [employer] [facility] 09-03-2023 12:11-0500 Body weight 77.56 kg Geneva Decistophe r [employer] SWEEPER-HVAC INSTALLATION TECHNICIAN Work Phone: [facility] [employer] [facility] 09-03-2023 12:11-0500 Diastolic blood pressure 58 mm[Hg] Geneva Dechristopher CAR SWEEPER-HVAC INSTALLATION TECHNICIAN [facility] Phone: [facility] 09-03-2023 12:11-0500 Heart rate 42 /min Geneva Decistophe r CAR SWEEPER-HVAC INSTALLATION TECHNICIAN [facility] 09-03-2023 12:11-0500 SaO2% (BldA) [Mass fraction] 98 % Geneva Dechristopher CAR SWEEPER-HVAC INSTALLATION TECHNICIAN Work Phone: [facility] 09-03-2023 12:11-0500 Systolic blood pressure 130 mm[Hg] Geneva Dechristopher CAR SWEEPER-HVAC INSTALLATION TECHNICIAN [facility] 08-27-2023 14:07-0500 Body height 172.7 cm Debbie Gonzalez MD Work Phone: [facility] 08-27-2023 14:07-0500 Body mass index (BMI) [Ratio] 25.7 kg/m2 Debbie Gonzalez MD Work Phone: [facility] 08-27-2023 14:07-0500 Body weight 76.66 kg Debbie Gonzalez MD Work Phone: [facility] 08-27-2023 14:07-0500 Diastolic blood pressure 50 mm[Hg] Debbie Gonzalez MD Work Phone: [facility] 08-27-2023 14:07-0500 Heart rate 47 /min Debbie Gonzalez MD Work Phone: [facility] 08-27-2023 14:07-0500 SaO2% (BldA) [Mass fraction] 98 % Debbie Gonzalez MD Work Phone: [facility] 08-27-2023 14:07-0500 Systolic blood pressure 132 mm[Hg] Debbie Gonzalez MD Work Phone: [facility] 12-27-2022 13:34-0400 Body height 171.5 cm Faraz Beckham MD Work Phone: [facility] 12-27-2022 13:34-0400 Body temperature 97.59 [degF] Faraz Beckham MD Work Phone: [facility] 12-27-2022 13:34-0400 Body weight 77.2 kg Faraz Beckham MD Work Phone: [facility] 12-27-2022 13:34-0400 Diastolic blood pressure 56 mm[Hg] Fraaz Beckham MD Work Phone: [facility] 12-27-2022 13:34-0400 Heart rate 45 /min Faraz Beckham MD Work Phone: [facility] 12-27-2022 13:34-0400 Respiratory rate 16 /min Faraz Beckham MD Work Phone: [facility] 12-27-2022 13:34-0400 SaO2% (BldA) [Mass fraction] 98 % Faraz Beckham MD Work Phone: [facility] 12-27-2022 13:34-0400 Systolic blood pressure 146 mm[Hg] Faraz Beckham MD Work Phone: [facility] 06-21-2022 14:44-0500 Body height 172.7 cm Faraz Beckham MD Work Phone: [facility] 06-21-2022 14:44-0500 Body temperature 97.59 [degF] Faraz Beckham MD Work Phone: [facility] 06-21-2022 14:44-0500 Body weight 77.02 kg Faraz Beckham MD Work Phone: [facility] 06-21-2022 14:44-0500 Diastolic blood pressure 48 mm[Hg] Faraz Beckham MD Work Phone: [facility] 06-21-2022 14:44-0500 Heart rate 40 /min Faraz Beckham MD Work Phone: [facility] 06-21-2022 14:44-0500 Respiratory rate 16 /min Faraz Beckham MD Work Phone: [facility] 06-21-2022 14:44-0500 SaO2% (BldA) [Mass fraction] 99 % Faraz Beckham MD Work Phone: [facility] 06-21-2022 14:44-0500 Systolic blood pressure 179 mm[Hg] Faraz Beckham MD Work Phone: [facility] Encounters Encounter Date Encounter Type Care Provider Facility Start: 12-27-2023 End: 12-27-2023 ambulatory Arminda Valverde [facility] Work Phone: Start: 12-27-2023 End: 12-27-2023 Departed Referred DO Arminda Valverde Work Phone: [facility] Start: 09-03-2023 End: 09-03-2023 ambulatory GENEVA Gladis [facility] Start: 09-03-2023 End: 09-03-2023 Office outpatient visit 15 minutes Geneva Sanders CAR SWEEPER-HVAC INSTALLATION TECHNICIAN Work Phone: [facility] Comment on above: Coronary artery dise ase involving [place] coronary artery of [place] heart without angina pectoris (Primary Dx); Sinus pause; Hypertension, unspecified type; NSTEMI (non-ST elevated myocardial infarction) [place] Start: 08-27-2023 End: 08-27-2023 ambulatory [facility] Start: 08-27-2023 End: 08-27-2023 Office outpatient visit 15 minutes Debbie Gonzalez MD Work Phone: [facility] Comment on above: History of coronary angioplasty with insertion of stent (Primary Dx); Pulmonary hypertension [place] Primary hypertension; Hx of hyperlipidemia; Sinus pause Start: 08-26-2023 Telephone encounter Gabbie Kow[facility] Start: 08-25-2023 End: 08-25-2023 [facility] Start: 08-21-2023 End: 08-21-2023 [facility] Start: 08-21-2023 End: 08-21-2023 Patient encounter procedure Patria Bhat CAR SWEEPER-HVAC INSTALLATION TECHNICIAN Work Phone: [facility] Start: 08-20-2023 End: 08-20-2023 [facility] Start: 08-20-2023 End: 08-20-2023 Patient encounter procedure Patria Bhat CAR SWEEPER-HVAC INSTALLATION TECHNICIAN Work Phone: [facility] Start: 08-18-2023 End: 08-18-2023 [facility] Start: 08-14-2023 End: 08-14-2023 [facility] Start: 08-14-2023 End: 08-14-2023 Patient encounter procedure Patria Mendozalosser CAR SWEEPER-HVAC INSTALLATION TECHNICIAN Work Phone: [facility] Start: 08-13-2023 End: 08-13-2023 [facility] Start: 08-11-2023 End: 08-11-2023 [facility] Start: 08-11-2023 End: 08-11-2023 Patient encounter procedure Kaityaliyah Bhat CAR SWEEPER-HVAC INSTALLATION TECHNICIAN Work Phone: [facility] Start: 08-07-2023 End: 08-07-2023 [facility] Start: 08-07-2023 End: 08-07-2023 Patient encounter procedure Kaityaliyah Bhat CAR SWEEPER-HVAC INSTALLATION TECHNICIAN Work Phone: [facility] Start: 08-06-2023 End: 08-06-2023 [facility] Start: 08-05-2023 End: 08-06-2023 ambulatory WAYNE DONALD [facility] Start: 08-04-2023 End: 08-04-2023 [facility] Start: 08-04-2023 Documentation procedure Wayne Donald MD Work Phone: [facility] [employer] Start: 08-04-2023 End: 08-04-2023 Patient encounter procedure Kaityaliyah Home CAR SWEEPER-HVAC INSTALLATION TECHNICIAN Work Phone: [facility] Start: 07-31-2023 End: 07-31-2023 [facility] Start: 07-30-2023 End: 08-21-2023 ambulatory [place] [facility] Start: 07-28-2023 End: 07-28-2023 ambulatory TAYL[place] R [facility] Start: 07-24-2023 End: 07-24-2023 ambulatory TAYLER R [facility] Start: 07-24-2023 End: 07-24-2023 Patient encounter procedure Patria Bhat CAR SWEEPER-HVAC INSTALLATION TECHNICIAN Work Phone: [facility] Start: 07-23-2023 End: 07-24-2023 ambulatory CRUZITO MCGRATH [facility] Start: 07-23-2023 End: 07-23-2023 ambulatory [facility] Start: 07-23-2023 End: 07-23-2023 Patient encounter procedure Patria Bhat CAR SWEEPER-HVAC INSTALLATION TECHNICIAN Work Phone: [facility] Start: 07-22-2023 End: 07-22-2023 ambulatory CRUZITO MCGRATH Not Available Start: 07-17-2023 End: 07-17-2023 ambulatory [facility] Start: 07-17-2023 End: 07-17-2023 Patient encounter procedure Kaityaliyah Home CAR SWEEPER-HVAC INSTALLATION TECHNICIAN Work Phone: [facility] Comment on above: Arrived Start: 07-16-2023 End: 07-21-2023 ambulatory FARAZ ABHYANKAR Facility:[facility] Start: 07-10-2023 End: 07-10-2023 ambulatory [place] [facility] Start: 07-09-2023 End: 07-09-2023 ambulatory [facility] Start: 07-07-2023 End: 07-07-2023 ambulatory [facility] Start: 07-03-2023 End: 07-21-2023 ambulatory TAYLER COREY [facility] Start: 07-01-2023 End: 07-01-2023 ambulatory EMELY CHRISTIAN Not Available Start: 12-27-2022 End: 12-27-2022 ambulatory CRUZITO MCGRATH Facility:[facility] Start: 12-27-2022 End: 12-27-2022 Office outpatient visit 15 minutes Faraz Beckham MD Work Phone: Hematology/Oncology Comment on above: CLL (chronic lymphoc ytic leukemia) (HCC) (Primary Dx); Large granular lymphocytosis; Stage 3 chronic kidney disease, unspecified whether stage 3a or 3b CKD (HCC); Type 2 diabetes mellitus 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, unspecified whether intermediate designer insulin use (HCC) Start: 06-27-2022 End: 06-28-2022 ambulatory Faraz Beckham MD Work Phone: Hematology/Oncology Comment on above: CLL (chronic lymphoc ytic leukemia) (HCC) (Primary Dx); Large granular lymphocytosis Start: 06-27-2022 End: 06-28-2022 Telemedicine consultation with patient Faraz Beckham MD Work Phone: [facility] Start: 06-21-2022 End: 06-21-2022 ambulatory Faraz Beckham MD Work Phone: Hematology/Oncology Comment on above: Lymphocytosis (Prima ry Dx) Start: 06-21-2022 End: 06-21-2022 Patient encounter procedure Faraz Beckham MD Work Phone: [facility] Start: 06-18-2022 Chart abstracting Faraz salas MD Work Phone: Hematology/Oncology Start: 06-06-2022 End: 06-07-[address] CRUZITO MCGRATH Facility:[facility] Start: 12-06-2021 End: 12-07-[address] CRUZITO MCGRATH Facility:[facility] Start: 01-01-2021 End: 01-01-2021 Patient encounter procedure Cruzito Mcgrath Work Phone: -[facility] [place] Procedures Date Procedure Procedure Detail Performing Clinician Start: 08-27-2023 Follow-up visit Follow-up NASH GONZALEZ Start: 04-05-2023 Adult depression screening assessment Pmh 1 Start: 12-26-2022 Colonoscopy Faraz miles MD Work Phone: Start: 06-06-[address] CRUZITO SEAY Comment on above: Performed By: #### V ITAD, PSASC #### [facility] [address] [place] [address] Dr. Lraa Askew Start: 10-30-2016 Microalbumin [Mass/volume] in Urine by Test strip Pmh 1 History of placement of stent for coronary artery disease History of coronary angioplasty with insertion of stent Debbie Gonzalez MD Work Phone: Plan of Treatment Date Care Activity Detail Author Start: 12-27-2027 Screening for malignant neoplasm of colon Colonoscopy [facility] Start: 06-21-2025 DIABETES SCREEN DIABETES SCREEN [facility] Start: 09-03-2024 Adult BMI Screening Adult BMI Screening [facility] Start: 09-03-2024 Tobacco Screening Tobacco Screening [facility] Start: 08-27-2024 Adult BMI Screening Adult BMI Screening [facility] Start: 08-27-2024 Tobacco Screening Tobacco Screening [facility] Start: 05-01-2024 Adult BMI Screening Adult BMI Screening [facility] Start: 05-01-2024 Tobacco Screening Tobacco Screening [facility] Start: 04-05-2024 Depression Screening Depression Screening [facility] Start: 03-15-2024 End: 03-15-2024 Patient encounter procedure [facility] Start: 02-24-2024 End: 02-24-2024 Patient encounter procedure [facility] Start: 12-28-2023 HEMOGLOBIN/HEMATOCRIT HEMOGLOBIN/HEMATOCRIT [facility] Start: 12-28-2023 SERUM CREATININE SERUM CREATININE [facility] Start: 12-27-2023 Colonoscopy COLONOSCOPY [facility] Start: 12-27-2023 COLORECTAL CANCER SCREENING COLORECTAL CANCER SCREENING [facility] Start: 10-28-2023 End: 10-28-2023 Patient encounter procedure 10/28/2023 11:00 AM EDT Office Visit [facility] [address] [place] [address] Gage Norton MD [address] [place] [id number] [facility] Start: 09-03-2023 End: 09-03-2023 Patient encounter procedure 09/03/2023 1:00 PM EST Office Visit [facility] [address] [place] [id number] Geneva Sanders CAR SWEEPER-HVAC INSTALLATION TECHNICIAN [address] [place] [address] [facility] Start: 08-27-2023 End: 08-27-2023 Patient encounter procedure 08/27/2023 2:00 PM EST Office Visit [facility] [address] [place] [address] Debbie Gonzalez MD [address] [place] [address] [facility] Start: 08-21-2023 End: 08-21-2023 Patient encounter procedure 08/21/2023 1:00 PM EST Office Visit [facility] [address] [place] [address] Patria Bhat, CAR SWEEPER-HVAC INSTALLATION TECHNICIAN [address] [place] [address] [facility] Start: 08-20-2023 End: 08-20-2023 Patient encounter procedure 08/20/2023 1:00 PM EST Office Visit [facility] [address] [place] [address] Patria Bhat APRN-HVAC INSTALLATION TECHNICIAN [address] [place] [address] [facility] Start: 08-18-2023 End: 08-18-2023 Patient encounter procedure 08/18/2023 1:00 PM EST Office Visit [facility] [address] [place] [address] Patria Bhat APRN-HVAC INSTALLATION TECHNICIAN [address] [place] [address] [facility] Start: 08-14-2023 End: 08-14-2023 Patient encounter procedure 08/14/2023 1:00 PM EST Office Visit [facility] [address] [place] [address] Patria Bhat APRN-HVAC INSTALLATION TECHNICIAN [address] [place] [address] [facility] Start: 08-13-2023 End: 08-13-2023 Patient encounter procedure 08/13/2023 1:00 PM EST Office Visit [facility] [address] [place] [address] Patria Bhat APRN-HVAC INSTALLATION TECHNICIAN [address] [place] [address] [facility] Start: 08-11-2023 End: 08-11-2023 Patient encounter procedure 08/11/2023 1:00 PM EST Office Visit [facility] [address] [place] [address] Patria Bhat CAR SWEEPER-HVAC INSTALLATION TECHNICIAN [address] [place] [address] [facility] Start: 08-07-2023 End: 08-07-2023 Patient encounter procedure 08/07/2023 1:00 PM EST Office Visit [facility] [address] [place] [address] Patria Bhat CAR SWEEPERHVAC INSTALLATION TECHNICIAN [address] [place] [address] [facility] Start: 08-06-2023 End: 08-06-2023 Patient encounter procedure 08/06/2023 1:00 PM EST Office Visit [facility] [address] [place] [address] Patria Bhat CAR SWEEPER-HVAC INSTALLATION TECHNICIAN [address] [place] [address] [facility] Start: 08-05-2023 End: 08-05-2023 Patient encounter procedure 08/05/2023 9:00 AM EST Appointment [facility] [address] [place] [address] Wayne Donald MD [address] [place] [address] [facility] Start: 08-04-2023 End: 08-04-2024 Holter monitor study Holter monitor 24-48 hour Cardiac Services Routine Bradycardia Expected: 08/04/2023, Expires: 08/04/2024 CAMRYN CHIU Work Phone: Comment on above: Expected: 08/04/2023, Expires: Start: 08-04-2023 End: 08-04-2023 Patient encounter procedure 08/04/2023 1:00 PM EST Office Visit [facility] [address] [place] [address] Patria Bhat APRN-HVAC INSTALLATION TECHNICIAN [address] [place] [address] [facility] Start: 07-31-2023 End: 07-31-2023 Patient encounter procedure 07/31/2023 1:00 PM EST Office Visit [facility] [address] [place] [address] Patria Bhat CAR SWEEPER-HVAC INSTALLATION TECHNICIAN [address] [place] [address] [facility] Start: 07-30-2023 End: 07-30-2023 Patient encounter procedure 07/30/2023 1:00 PM EST Office Visit [facility] [address] [place] [address] Patria Bhat CAR SWEEPER-HVAC INSTALLATION TECHNICIAN [address] [place] [address] [facility] Start: 07-28-2023 End: 07-28-2023 Patient encounter procedure 07/28/2023 1:00 PM EST Office Visit [facility] [address] [place] [address] Patria Bhat, CAR SWEEPER-HVAC INSTALLATION TECHNICIAN [address] [place] [address] [facility] Start: 07-24-2023 End: 07-24-2023 Patient encounter procedure 07/24/2023 1:00 PM EST Office Visit [facility] [address] [place] [address] HomePatria denton CAR SWEEPER-HVAC INSTALLATION TECHNICIAN [address] [place] [address] [facility] Start: 07-23-2023 End: 07-23-2023 Patient encounter procedure 07/23/2023 1:00 PM EST Office Visit [facility] [address] [place] [address] Patria Bhat CAR SWEEPER-HVAC INSTALLATION TECHNICIAN [address] [place] [address] [facility] Start: 06-28-2023 End: 12-28-2023 CBC W Auto Differential panel - Blood CBC + DIFF Lab Routine CLL (chronic lymphocytic leukemia) (HCC) Large granular lymphocytosis Expected: 06/28/2023 (Approximate), Expires: 12/28/2023 [facility] Work Phone: Comment on above: Expected: 06/28/2023 (Approximate), Expi res: 12/28/2023 Start: 06-28-2023 End: 12-28-2023 Comprehensive metabolic 2000 panel - Serum or Plasma COMP METABOLIC PANEL Lab Routine CLL (chronic lymphocytic leukemia) (HCC) Large granular lymphocytosis Expected: 06/28/2023 (Approximate), Expires: 12/28/2023 [facility] Work Phone: Comment on above: Expected: 06/28/2023 (Approximate), Expi res: 12/28/2023 Start: 06-28-2023 End: 12-28-2023 Lactate dehydrogenase [Enzymatic activity/volume] in Serum or Plasma LD LACTATE DEHYDRO Lab Routine CLL (chronic lymphocytic leukemia) (HCC) Large granular lymphocytosis Expected: 06/28/2023 (Approximate), Expires: 12/28/2023 [facility] Work Phone: Comment on above: Expected: 06/28/2023 (Approximate), Expi res: 12/28/2023 Start: 06-28-2023 End: 08-28-2023 Urate [Mass/volume] in Serum or Plasma URIC ACID BLOOD Lab Routine CLL (chronic lymphocytic leukemia) (HCC) Large granular lymphocytosis Expected: 06/28/2023 (Approximate), Expires: 08/28/2023 [facility] Work Phone: Comment on above: Expected: 06/28/2023 (Approximate), Expi res: 08/28/2023 Start: 05-22-2023 Hemoglobin A1c/Hemoglobin.total in Blood HBA1C [facility] Start: 03-21-2023 COVID-19 Vaccine () COVID-19 Vaccine () [facility] Start: 03-21-2023 Influenza vaccination Influenza Vaccine [facility] Start: 07-21-2022 ADVANCE DIRECTIVE DISCUSSION ADVANCE DIRECTIVE DISCUSSION [facility] Start: 07-21-2022 DEPRESSION ASSESSMENT DEPRESSION ASSESSMENT [facility] Start: 06-21-2022 End: 08-21-2022 FISH FOR CLL [facility] Work Phone: Comment on above: Expected: 06/21/2022, Expires: 3 Start: 06-21-2022 End: 08-21-2022 PROTEIN ELECTROPHORESIS SERUM W/INTERP [facility] Work Phone: Comment on above: Expected: 06/21/2022, Expires: 3 Start: 03-21-2022 Influenza vaccination INFLUENZA (#1) [facility] Start: 07-21-2021 ADVANCE DIRECTIVE DISCUSSION ADVANCE DIRECTIVE DISCUSSION [facility] Start: 07-21-2021 DEPRESSION ASSESSMENT DEPRESSION ASSESSMENT [facility] Start: 06-24-2019 PNEUMOCOCCAL: 65+ (2 - PPSV23 if available, else PCV20) PNEUMOCOCCAL: 65+ (2 - PPSV23 if available, else PCV20) [facility] Start: 08-19-2018 PNEUMOCOCCAL: 65+ (2 - PPSV23 if available, else PCV20) PNEUMOCOCCAL: 65+ (2 - PPSV23 if available, else PCV20) [facility] Start: 10-30-2017 Urine screening for protein Urine Microalbumin [facility] Start: 2012 Fall Risk Screening Fall Risk Screening [facility] Start: 2012 PNEUMOCOCCAL: 65+ (1 - PCV) PNEUMOCOCCAL: 65+ (1 - PCV) [facility] Start: 1997 Administration of varicella zoster vaccine Zoster (Shingles) Vaccine (1 of 2) [facility] Start: 1997 SHINGRIX VACCINE (1 of 2) SHINGRIX VACCINE (1 of 2) [facility] Start: 1992 COLOGUARD (FIT-DNA) COLOGUARD (FIT-DNA) [facility] Start: 1992 Colonoscopy COLONOSCOPY [facility] Start: 1992 COLORECTAL CANCER SCREENING COLORECTAL CANCER SCREENING [facility] Start: [address] COLONOGRAPHY [facility] Start: 1992 DIABETES SCREEN DIABETES SCREEN [facility] Start: 1992 FECAL OCCULT BLOOD FECAL OCCULT BLOOD [facility] Start: 1992 SIGMOIDOSCOPY SIGMOIDOSCOPY [facility] Start: 1982 LIPID SCREEN LIPID SCREEN [facility] Start: 1966 DTaP,Tdap and Td Vaccines (1 - Tdap) DTaP,Tdap and Td Vaccines (1 - Tdap) [facility] Start: 1966 SHINGRIX VACCINE (1 of 2) SHINGRIX VACCINE (1 of 2) [facility] Start: 1966 Urine microalbumin profile DTAP,TDAP,TD (1 - Tdap) [facility] Start: 1965 Adult BMI Follow Up Plan Adult BMI Follow Up Plan [facility] Start: 1965 ANNUAL PCP TEAM CHRONIC DISEASE VISIT ANNUAL PCP TEAM CHRONIC DISEASE VISIT [facility] Start: 1965 Hepatitis B surface antibody level LDL CHOLESTEROL [facility] Start: 1965 HEPATITIS C SCREENING HEPATITIS C SCREENING [facility] Start: 1957 3 comp foot exam completed DIABETIC FOOT EXAM [facility] Start: 1957 Hepatitis B screening URINE ALBUMIN:CREATININE RATIO [facility] Start: 1957 Hepatitis C antibody, confirmatory test DILATED RETINAL EXAM [facility] Start: 01-18-1948 COVID-19 VACCINE (#1) COVID-19 VACCINE (#1) [facility] Start: 1947 ABDOMINAL AORTIC ANEURYSM SCREENING ABDOMINAL AORTIC ANEURYSM SCREENING [facility] Start: 1947 Glaucoma screening Diabetic Ophthalmology Exam [facility] Start: 1947 Medicare Annual Wellness Visit Medicare Annual Wellness Visit [facility] CARDIOPULMONARY REHABILITATION CARDIOPULMONARY REHABILITATION Cardiac Services Ordered: 07/17/2023 [facility] Comment on above: Ordered: 07/17/2023 CARDIOPULMONARY REHABILITATION CARDIOPULMONARY REHABILITATION Cardiac Services Ordered: 07/23/2023 [facility] Comment on above: Ordered: 07/23/2023 CARDIOPULMONARY REHABILITATION CARDIOPULMONARY REHABILITATION Cardiac Services Ordered: 07/24/2023 [facility] Comment on above: Ordered: 07/24/2023 CARDIOPULMONARY REHABILITATION CARDIOPULMONARY REHABILITATION Cardiac Services Ordered: 08/04/2023 [facility] Comment on above: Ordered: 08/04/2023 CARDIOPULMONARY REHABILITATION CARDIOPULMONARY REHABILITATION Cardiac Services Ordered: 08/07/2023 [facility] Comment on above: Ordered: 08/07/2023 CARDIOPULMONARY REHABILITATION CARDIOPULMONARY REHABILITATION Cardiac Services Ordered: 08/13/2023 [facility] Comment on above: Ordered: 08/13/2023 CARDIOPULMONARY REHABILITATION CARDIOPULMONARY REHABILITATION Cardiac Services Ordered: 08/14/2023 [facility] Comment on above: Ordered: 08/14/2023 CARDIOPULMONARY REHABILITATION CARDIOPULMONARY REHABILITATION Cardiac Services Ordered: 08/20/2023 [facility] Comment on above: Ordered: 08/20/2023 CARDIOPULMONARY REHABILITATION CARDIOPULMONARY REHABILITATION Cardiac Services Ordered: 08/25/2023 [facility] Comment on above: Ordered: 08/25/2023 [facility] Immunizations Immunization Date Immunization Notes Care Provider [facility] 04-02-2022 influenza, high-dose , quadrivalent vaccine (FLUZONE HIGH DOSE QUADRIVALENT) Faraz Beckham MD Work Phone: [facility] 04-02-2022 influenza virus vaccine, unspecified formulation [facility] 1 [facility] 03-30-2020 influenza, high dose seasonal, preservative-free Faraz Beckham MD Work Phone: [facility] 04-01-2019 influenza, high dose seasonal, preservative-free Faraz Beckham MD Work Phone: [facility] 06-24-2018 pneumococcal conjuga te vaccine, 13 valent Faraz Beckham MD Work Phone: [facility] 05-13-2018 influenza, high dose seasonal, preservative-free Faraz Beckham MD Work Phone: [facility] 05-28-2017 influenza, injectabl e, quadrivalent, contains preservative Faraz Beckham MD Work Phone: [facility] Payers Date Payer Category Payer Self-pay [id number] 2021 Private Health Insurance [id number] 2012 Medicare [id number] 1959 Medicare [id number] 1959 Unknown [id number] 1947 Unknown [id number] 2.16.84 0.1.710470.3.579.2.593 1947 Unknown [id number] 2.16.84 0.1.113425.3.579.2.593 1947 Unknown [id number] 2.16.840 .1.882186.3.579.2.1259 1947 Unknown [id number] 2.16.840 .1.599661.3.579.2.1259 1947 Unknown [id number] 2.16.8 40.1.848580.3.579.2.1286 1947 Unknown [id number] 2.16.8 40.1.686358.3.579.2.1286 194 Unknown [id number] 2.16.8 40.1.905972.3.579.2.1286 1947 Unknown [id number] 2.16.8 40.1.681055.3.579.2.1286 1947 Unknown [id number] 2.16.8 40.1.436028.3.579.2.1286 1947 Unknown [id number] 2.16.8 40.1.468085.3.579.2.1286 1947 Unknown [id number] 2.16.8 40.1.479282.3.579.2.1286 1947 Unknown [id number] 2.16.84 0.1.517869.3.579.2.1286 1947 Unknown [id number] 2.16.84 0.1.477969.3.579.2.1286 1947 Unknown [id number] 2.16.84 0.1.671456.3.579.2.1286 1947 Unknown [id number] 2.16.84 0.1.908722.3.579.2.1286 1947 Unknown [id number] 2.16.84 0.1.579483.3.579.2.1286 1947 Unknown [id number] 2.16.84 0.1.356177.3.579.2.1286 1947 Unknown [id number] 2.16.8 40.1.568331.3.579.2.1286 1947 Unknown [id number] 2.16.84 0.1.526254.3.579.2.1286 1947 Unknown [id number] 2.16.84 0.1.368557.3.579.2.1286 1947 Unknown [id number] 2.16.84 0.1.315504.3.579.2.1286 1947 Unknown [id number] 2.16.84 0.1.578738.3.579.2.1286 1947 Unknown [id number] 2.16.84 0.1.935219.3.579.2.1286 1947 Unknown [id number] 2.16.84 0.1.585157.3.579.2.1286 1947 Unknown [id number] 2.16.84 0.1.298698.3.579.2.1286 1947 Unknown [id number] 2.16.84 0.1.063697.3.579.2.1286 1947 Unknown [id number] 2.16.840 .1.059268.3.579.2.1286 1947 Unknown [id number] 2.16.84 0.1.114856.3.579.2.1286 1947 Unknown [id number] 2.16.8 40.1.062673.3.579.2.1286 Unknown [id number] Unknown [id number] 2.16.8 40.1.171973.3.579.2.531 Social History Date Type Detail Facility Tobacco smoking stat [facility] Unknown if ever smoked [facility] Start: 1945 Sex Assigned At Male [facility] Start: 06-18-2022 Tobacco smoking status IDIS Smokes tobacco daily [facility] End: 07-21-2019 History of tobacco use Cigarette Smoker [facility] History of tobacco use Passive smoker [facility] Start: 05-06-2022 End: 06-18-2022 Tobacco use and exposure Smokeless tobacco non-user [facility] Start: 1945 Sex Assigned At Not on file [facility] Start: 01-16-2021 End: 06-21-2022 Tobacco smoking status NHIS Ex-smoker [facility] End: 07-21-2019 History of tobacco use Current smoker [facility] Start: 06-21-2022 Alcohol intake Not Asked [facility] Start: 06-11-2022 End: 06-21-2022 Exposure to SARS-CoV-2 (event) Not sure [facility] Start: 08-31-2020 End: 05-06-2022 Cigarettes smoked current (pack per day) - Reported 0.5 [facility] Start: 05-01-2023 End: 09-03-2023 Alcohol intake Current drinker of alcohol (finding) [facility] Start: 08-09-2019 End: 08-31-2020 Alcohol Use Disorder Identification Test - Consumption [AUDIT-C] [facility] Frequency of Alcohol Consumption Never [facility] Start: 05-06-2022 Tobacco Comment 4-5 cigarettes per day [facility] Start: 08-07-2018 Alcohol Comment once a month [facility] Medical Equipment Procedure Code Equipment Code Equipment Origin al Text Equipment Identifier Dates [id number] 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 Evaluation of progress towards goal: pt wants to discharge home independently Clinical Notes 06-21-2022 to 09-03-2023 Geneva Sanders APRN-HVAC INSTALLATION TECHNICIAN - 09/03/2023 1:00 PM Tiffany Gonzalez MD - 08/27/2023 2:00 PM ESTTelephone Encounter - Gabbie Rebolledo CMA - 08/26/2023 9:26 AM ESTPatient Instructions Note Date & Type Note Facility 09-03-2023 History of Present illness Narrative Ila Morejon Date of visit: 09/03/2023 Date of : 1945 Age: 78 y.o. Patient Active Problem List Diagnosis Coronary artery disease involving egegik coronary artery of egegik heart without angina pectoris Abnormal result of cardiovascular function study, unspecified Hypertension Type 2 diabetes mellitus 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 [place] Status post angioplasty with stent PAD (peripheral artery disease) [place] Claudication [place] Bilateral carotid artery stenosis Mixed hyperlipidemia Asymptomatic bradycardia NSTEMI (non-ST elevated myocardial infarction) ([facility] No Known Allergies Current Outpatient Medications Medication Sig Dispense Refill amLODIPine (NORVASC) 10 mg tablet TAKE 1 TABLET BY MOUTH IN THE MORNING 90 tablet 3 aspirin 81 mg chewable tablet Chew 1 tablet (81 mg total) and swallow in the morning for 360 days. 30 tablet 11 cholecalciferol 1,000 units tablet Take 2 tablets (2,000 Units total) by mouth in the morning. coenzyme Q10 100 mg capsule Take 1 capsule (100 mg total) by mouth in the morning. gabapentin (NEURONTIN) 300 mg capsule Take 1 capsule (300 mg total) by mouth 3 (three) times a day. insulin glargine,hum.rec.anlog (INSULIN GLARGINE SUBQ) Inject 54 Units under the skin daily. Lantus lisinopriL (PRINIVIL,ZESTRIL) 20 mg tablet Take 1.5 tablets (30 mg total) by mouth in the morning. 135 tablet 3 metFORMIN XR (GLUCOPHAGE-XR) 500 mg 24 hr tablet Take 1 tablet (500 mg total) by mouth in the morning. xookxoiw-jfdc-XD-calcium &mins (THERAGRAN-M) 9 mg iron-400 mcg tablet Take 1 tablet by mouth in the morning. potassium gluconate 595 mg (99 mg) tablet extended release Take 1 tablet (595 mg total) by mouth in the morning. rosuvastatin (CRESTOR) 20 mg tablet Take 1 tablet (20 mg total) by mouth nightly for 360 days. 30 tablet 11 ticagrelor (BRILINTA) 90 mg tablet Take 1 tablet (90 mg total) by mouth every 12 (twelve) hours for 360 days. 60 tablet 11 No current facility-administered medications for this visit. Chief Complaint Patient presents with New Patient ov (consult) per MS sinus pause states needs ppm imp - per sonam shlomo with ep myles while ep in office - shlomo w pt History of Present Illness Ila Morejon is a 78-year-old with history of ASCVD/PCI 2016, diabetes, hypertension, peripheral artery disease, sleep apnea, sinus bradycardia. Patient was admitted to hospital in March for arm pain radiating to his jaw, was found to have an NSTEMI and underwent ARLIN to RCA. During hospital stay he was noted to have significant bradycardia. Pacemaker was discussed, however patient preferred to think about options prior to proceeding with pacemaker. He is here today for follow-up. Was evaluated by General Cardiology after Holter monitor was ordered. During cardiac rehab patient's was noted to have bradycardia. Monitor showed 5 second pause. Patient is asymptomatic. Denies chest pain, shortness of breath, palpitations, fatigue, dizziness, syncope. He continues to work 30 hours per week for the [employer]. Past Medical History: Diagnosis Date Abnormal result of cardiovascular function study, unspecified Coronary atherosclerosis due to calcified coronary lesion Dental disease full dentures Diabetes mellitus [place] Diabetes mellitus type 2, controlled ([facility] Hyperlipidemia Hypertension Sleep apnea bipap Visual impairment No data recorded No data recorded No data recorded Past Surgical History: Procedure Laterality Date ANGIOPLASTY Bilateral 12/2020 legs CARDIAC CATHETERIZATION 2016 stents x2 Cardiac catheterization N/A 04/07/2023 Performed by Tayler Corey MD at [facility] CARDIAC CATH LABS COLONOSCOPY N/A 12/26/2022 Performed by Chino Raza DO at [facility] Coronary angiogram only N/A 04/07/2023 Performed by Tayler Corey MD at [facility] CARDIAC CATH LABS DAVINCI REPAIR HERNIA INGUINAL Left 11/06/2021 Performed by Chino Raza DO at [facility] drug eluting stent right coronary artery N/A 04/07/2023 Performed by Tayler Corey MD at [facility] CARDIAC CATH LABS SKIN BIOPSY Family History Problem Relation Age of Onset Diabetes Mother Lung cancer Father Diabetes Father Brain cancer Daughter Social History Socioeconomic History Marital status: Spouse name: Not on file Number of children: Not on file Years of education: Not on file Highest education level: Not on file Occupational History Not on file Tobacco Use Smoking status: Former Packs/day: 0.50 Years: 55.00 Additional pack years: 0.00 Total pack years: 27.50 Types: Cigarettes Quit date: 2019 Years since quittin.1 Smokeless tobacco: Never Tobacco comments: 4-5 cigarettes per day Vaping Use Vaping Use: Never used Substance and Sexual Activity Alcohol use: Yes Comment: once a month Drug use: No Sexual activity: Defer Other Topics Concern Caffeine Use Yes Social History Narrative Not on file Social Determinants of Health Financial Resource Strain: Low Risk (04/05/2023) Overall Financial Resource Strain (CARDIA) Difficulty of Paying Living Expenses: Not hard at all Food Insecurity: No Food Insecurity (08/27/2023) Hunger Screening Food Insecurity - Worry: Never True Food Insecurity - Inability: Never True Transportation Needs: No Transportation Needs (04/05/2023) PRAPARE - Transportation Lack of Transportation (Medical): No Lack of Transportation (Non-Medical): No Physical Activity: Not on file Stress: Not on file Social Connections: Not on file Interpersonal Safety: Not on file Housing Instability: Not on file Review of Systems Review of Systems Constitutional: Negative for decreased appetite and malaise/fatigue. HENT: Negative for nosebleeds. Respiratory: Negative for cough, shortness of breath and wheezing. Hematologic/Lymphatic: Bruises/bleeds easily. Musculoskeletal: Negative for joint pain, joint swelling, muscle cramps and muscle weakness. Gastrointestinal: Negative for bloating, abdominal pain, heartburn, nausea and vomiting. Neurological: Negative for dizziness, headaches, light-headedness and loss of balance. Psychiatric/Behavioral: Negative for depression. The patient is not nervous/anxious. CARDIOVASCULAR: Please review HPI. Physical Examination General appearance: Alert, oriented and cooperative. In no acute distress. Skin: Warm and dry to touch. Head: Normocephalic, without obvious abnormality, atraumatic. Eyes: Conjunctivae unremarkable, EOM intact. Neck: No JVD Respiratory: Clear to auscultation bilaterally, no use of accessory muscles. Cardiovascular: Regular, bradycardic Musculoskeletal: No peripheral edema. Neurologic: Oriented to time, person and place, affect appropriate. No focal/major motor defects noted. Psychiatric: Appropriate mood, memory and judgement. VITAL SIGNS: BP 130/58 Pulse (!) 42 Ht 172.7 cm (5' 8 ) Wt 77.6 kg (171 lb) SpO2 98% BMI 26.00 kg/m No orders of the defined types were placed in this encounter. There are no discontinued medications. IMPRESSIONS/PLAN 1. Sinus pause - Ambulatory referral to Cardiac Electrophysiology 2. Coronary artery disease involving egegik coronary artery of egegik heart without angina pectoris 3. Hypertension, unspecified type 4. NSTEMI (non-ST elevated myocardial infarction) ([facility]) Sinus node dysfunction ASCVD/PCI March 2023 Preserved LVEF Peripheral artery disease Sleep apnea Diabetes type 2 Hypertension CLL Patient is having sinus pauses during awake time, although asymptomatic. He remains active without symptoms. Given general cardiology physician instructed him he is unable to drive, will review strips with Dr. Sutton. Patient is hesitant to pursue pacemaker as he is asymptomatic. Patient was seen when Dr. An was present and immediately available in office suite. TODAYS ORDERS No orders of the defined types were placed in this encounter. FOLLOW UP No follow-ups on file. PCP: CRUZITO MCGRATH MD Referring Physician: Debbie Gonzalez MD [address] [place] [address] OXANA Lopez 09/03/23 [id number] documented in this encounter [facility] 08-27-2023 History of Present illness Narrative Ila Morejon Date of visit: 08/27/2023 Date of : 1945 Age: 78 y.o. Patient Active Problem List Diagnosis Coronary artery disease involving egegik coronary artery of egegik heart without angina pectoris Abnormal result of cardiovascular function study, unspecified Hypertension Type 2 diabetes mellitus 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 [place] Status post angioplasty with stent PAD (peripheral artery disease) [place] Claudication [place] Bilateral carotid artery stenosis Mixed hyperlipidemia Asymptomatic bradycardia NSTEMI (non-ST elevated myocardial infarction) ([facility] No Known Allergies Current Outpatient Medications Medication Sig Dispense Refill amLODIPine (NORVASC) 10 mg tablet TAKE 1 TABLET BY MOUTH IN THE MORNING 90 tablet 3 aspirin 81 mg chewable tablet Chew 1 tablet (81 mg total) and swallow in the morning for 360 days. 30 tablet 11 cholecalciferol 1,000 units tablet Take 2 tablets (2,000 Units total) by mouth in the morning. coenzyme Q10 100 mg capsule Take 1 capsule (100 mg total) by mouth in the morning. gabapentin (NEURONTIN) 300 mg capsule Take 1 capsule (300 mg total) by mouth 3 (three) times a day. insulin glargine,hum.rec.anlog (INSULIN GLARGINE SUBQ) Inject 54 Units under the skin daily. Lantus lisinopriL (PRINIVIL,ZESTRIL) 20 mg tablet Take 1.5 tablets (30 mg total) by mouth in the morning. 135 tablet 3 metFORMIN XR (GLUCOPHAGE-XR) 500 mg 24 hr tablet Take 1 tablet (500 mg total) by mouth in the morning. zgydjirf-cpfc-JS-calcium &mins (THERAGRAN-M) 9 mg iron-400 mcg tablet Take 1 tablet by mouth in the morning. potassium gluconate 595 mg (99 mg) tablet extended release Take 1 tablet (595 mg total) by mouth in the morning. rosuvastatin (CRESTOR) 20 mg tablet Take 1 tablet (20 mg total) by mouth nightly for 360 days. 30 tablet 11 ticagrelor (BRILINTA) 90 mg tablet Take 1 tablet (90 mg total) by mouth every 12 (twelve) hours for 360 days. 60 tablet 11 No current facility-administered medications for this visit. Chief Complaint Patient presents with Follow-up OV F/U 1 MO BRADYCARDIA, HM DONE PER LLD SCHED W/PT History of Present Illness Patient with history of coronary disease status post stent to the RCA and OM, mild MR, moderate pulmonary hypertension, essential hypertension, hyperlipidemia, type 2 diabetes mellitus, carotid disease, PAD. Here for follow up. Stated that he is doing fairly well. No active complaints. Denies any chest pain or shortness of breath or dizzy spells or syncope or presyncope or orthopnea or leg edema. Stated that he wakes up every morning around 5:00 a.m. or 5:30 a.m.. When questioned about what he was doing on 08/08/2023 when he was noted to have 5.2nd pause on telemetry. Patient stated that he thinks that he was awake. Although does not recall having any symptoms then. Past Medical History: Diagnosis Date Abnormal result of cardiovascular function study, unspecified Coronary atherosclerosis due to calcified coronary lesion Dental disease full dentures Diabetes mellitus ([facility]) Diabetes mellitus type 2, controlled ([facility]) Hyperlipidemia Hypertension Sleep apnea bipap Visual impairment No data recorded No data recorded No data recorded Past Surgical History: Procedure Laterality Date ANGIOPLASTY Bilateral 12/2020 legs CARDIAC CATHETERIZATION 2016 stents x2 Cardiac catheterization N/A 04/07/2023 Performed by Tayler Corey MD at [facility] CARDIAC CATH LABS COLONOSCOPY N/A 12/26/2022 Performed by Chino Raza DO at [facility] Coronary angiogram only N/A 04/07/2023 Performed by Talyer Corey MD at [facility] CARDIAC CATH LABS DAVINCI REPAIR HERNIA INGUINAL Left 11/06/2021 Performed by Chino Raza DO at [facility] drug eluting stent right coronary artery N/A 04/07/2023 Performed by Tayler Corey MD at [facility] CARDIAC CATH LABS SKIN BIOPSY Family History Problem Relation Age of Onset Diabetes Mother Lung cancer Father Diabetes Father Brain cancer Daughter Social History Socioeconomic History Marital status: Spouse name: Not on file Number of children: Not on file Years of education: Not on file Highest education level: Not on file Occupational History Not on file Tobacco Use Smoking status: Former Packs/day: 0.50 Years: 55.00 Additional pack years: 0.00 Total pack years: 27.50 Types: Cigarettes Quit date: 2020 Years since quittin.1 Smokeless tobacco: Never Tobacco comments: 4-5 cigarettes per day Vaping Use Vaping Use: Never used Substance and Sexual Activity Alcohol use: Yes Comment: once a month Drug use: No Sexual activity: Defer Other Topics Concern Caffeine Use Yes Social History Narrative Not on file Social Determinants of Health Financial Resource Strain: Low Risk (04/05/2023) Overall Financial Resource Strain (CARDIA) Difficulty of Paying Living Expenses: Not hard at all Food Insecurity: No Food Insecurity (08/27/2023) Hunger Screening Food Insecurity - Worry: Never True Food Insecurity - Inability: Never True Transportation Needs: No Transportation Needs (04/05/2023) PRAPARE - Transportation Lack of Transportation (Medical): No Lack of Transportation (Non-Medical): No Physical Activity: Not on file Stress: Not on file Social Connections: Not on file Interpersonal Safety: Not on file Housing Instability: Not on file Review of Systems Review of Systems Respiratory: Negative for cough, hemoptysis and wheezing. Gastrointestinal: Negative for abdominal pain, change in bowel habit and hematochezia. Genitourinary: Negative for dysuria and hematuria. Neurological: Negative for focal weakness, headaches and paresthesias. CARDIOVASCULAR: Please review HPI. Physical Examination General appearance: Alert, oriented and cooperative. In no acute distress. Skin: Warm and dry to touch. Head: Normocephalic, without obvious abnormality, atraumatic. Ears, Nose, Mouth, Throat: Throat clear without erythema or exudate. Dentition intact. Eyes: Conjunctivae unremarkable, EOM intact. Neck: No JVD, No carotid bruit. Neck supple, trachea midline. Respiratory: Clear to auscultation bilaterally, no use of accessory muscles. Cardiovascular: RRR with normal S1 and S2 with no murmurs. Gastrointestinal: Soft, non-tender. Bowel sounds normal. Musculoskeletal: No peripheral edema. Neurologic: Oriented to time, person and place, affect appropriate. No focal/major motor defects noted. Psychiatric: Appropriate mood, memory and judgement. VITAL SIGNS: BP 132/50 (BP Site: Left Arm, BP Postition: Sitting) Pulse (!) 47 Ht 172.7 cm (5' 8 ) Wt 76.7 kg (169 lb) SpO2 98% BMI 25.70 kg/m Orders Placed or Reconciled This Encounter Medications gabapentin (NEURONTIN) 300 mg capsule Sig: Take 1 capsule (300 mg total) by mouth 3 (three) times a day. emxvgxpc-frop-XI-calcium &mins (THERAGRAN-M) 9 mg iron-400 mcg tablet Sig: Take 1 tablet by mouth in the morning. potassium gluconate 595 mg (99 mg) tablet extended release Sig: Take 1 tablet (595 mg total) by mouth in the morning. Medications Discontinued During This Encounter Medication Reason gabapentin (NEURONTIN) 100 mg capsule Dose adjustment magnesium oxide (MAGOX) 400 mg tablet Therapy completed IMPRESSIONS/PLAN 1. History of coronary angioplasty with insertion of stent 2. Pulmonary hypertension (CMS-HCC) 3. Primary hypertension 4. Hx of hyperlipidemia 5. Sinus pause - Ambulatory referral to Cardiac Electrophysiology; Future Previous cardiac related labs and test results were reviewed and discussed with the patient. Sinus carroll cardia, asymptomatic Sinus pause > 5 seconds CAD s/p stent to RCA, OM2 2015 Low normal EF TTE 03/2023 Mild MR Moderate pulmonary hypertension Hypertension Hyperlipidemia Type 2 diabetes mellitus PAD Patient is here for follow-up visit. Has asymptomatic sinus bradycardia. Noted to have 5.2nd pause on 08/06/2023 at 8:30 a.m.. Patient stated that he thinks he is awake at the time. Asymptomatic. Provided with referral to EP team to be evaluated for pacemaker. Recommended not to drive avoid operating any hazardous machinery until cleared. No changes in medications made today. Follow-up in 3-4 months or sooner if needed. Patient to call us with any cardiac questions or concerns. TODAYS ORDERS Orders Placed This Encounter Procedures Ambulatory referral to Cardiac Electrophysiology FOLLOW UP Return in about 3 months (around 11/25/2023). PCP: CRUZITO MCGRATH MD Referring Physician: Cruzito Mcgrath MD [address] [place] [address] [facility] Miscellaneous Notes Called patient to remind them to bring their most current copy of their medication list with them to their appt. Patient verbalizes understanding. [facility] Telephone encounter Note Called patient to remind them to bring their most current copy of their medication list with them to their appt. Patient verbalizes understanding. [facility] History of Present illness Narrative Patient noted to have a history of bradycardia Scheduled pt for 48 HM on 08/05/23 at 9am. Made appt in the [place] office for 08/27/23 at 2pm. Called pt and he verbalizes understanding.slm documented in this encounter [facility] 08-04-2023 History of Present illness Narrative Cardiac rehab has noted asymptomatic bradycardia with heart rate into the 20s. Holter monitor ordered Patient should have follow-up in the office documented in this encounter [facility] 07-16-2023 Note HNO ID: [id number] Author: Faraz Beckham MD Service: ? 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 He is asymptomatic with no indications for treatment. Continue follow-up plans as previously arranged. PLAN: RTC in 6 months, with labs same day. HPI: CASE HISTORY: Reverse Chronological Order 04/04/2023 - Admitted to [facility] with NSTEMI Underwent placement of drug eluting stent in the right coronary 06/21/2022 - Flow cytometry consistent with CLL positive for CD5 CD19 CD20 CD23 CD45 CD200, monotypic kappa, negative CD10. Small subset of T cells consistent with T-cell large granular lymphocytes and clonal expansion of the beta 20 family. Can be associated with presence of B-cell lymphoproliferative disorder, infections, drug reactions. 06/06/2022 - CBC 18.8>14.0/39.7<185 Abs. Lymph: 10.1 Updated Visit, July 16, 2023: Ila returns today with his Sabrina. He unfortunately experienced an NSTEMI back in 03/2023 and underwent subsequent stent placing. He reports doing much better now. Reviewed his labs, he is slightly anemic but this could be attributed to his heart attack. We will continue to monitor this, but he does not need to start PO iron at this time. His WBCs are not as elevated as they were previously. He denies any B symptoms. Has been sleeping more, especially since the [place]. Updated Visit, December 27, 2022: 11 year anniversary today - going to dinner with his Sabrina. Overall he is doing very well. He has no progression on CLL or B symptoms that would suggest he needs intervention. No evidence of T-cell LGL clone is worsening. Updated Visit, June 27, 2022: Telephone only for 8 minutes Called Alexis as requested and spoke to him and his Sabrina. We discussed results from laboratories obtained at his last visit. Findings were consistent with CLL. He additionally has a small indication of a T-cell LGL clone. Continue following. No complaints. Initial Visit, June 21, 2022: Ila Morejon presents today Hematology and Oncology evaluation. He is a 76 year old male who is accompanied by his Sabrina for workup of lymphocytosis. He is asymptomatic and we discussed that this most likely represents CLL. He has a + spleen on exam but otherwise no other lympho-megaly. No B symptoms. We thorouhly reviewed the natural history and etiology of CLL as his presumptive diagnosis. We also discussed the classic time course of this disease process as well as potential treatments. REVIEW OF SYSTEMS Per HPI and otherwise negative by full review of organ systems. ECOG PERFORMANCE STATUS: 0 PHYSICAL EXAMINATION: Vitals: BP 169/38 Pulse 42 Temp (Src) 97.7 (Temporal) Resp 16 Ht 5' 7.52 (1.72m) Wt 170 lb 6.7 oz (77.3kg) SpO2 98% BMI 26.28 kg/(m2). Body surface area is 1.92 meters squared. Exam limited to gross visualization where appropriate. Gen.: This is an age-appropriate patient in no acute distress. Head: Appears atraumatic with no visible lesions. Eyes: Pupils equally round and reactive to light, extraocular muscles are intact. Neck: Supple. Respiratory: Appears to be respiring comfortably. Neurologic: Nonfocal to gross visualization. Alert and oriented ?3. Psychiatric: No evidence of inappropriate anxiety or depression. Skin: Visible areas of skin without rash, lesions, wounds or petechiae. ALLERGIES: ALLERGIES No Known Allergies MEDICATIONS: BRILINTA 90 mg tablet Take 1 tablet by mouth every 12 hours. magnesium oxide (MAG-OX) 400 mg (241.3 mg magnesium) tablet Take 400 mg by mouth. rosuvastatin (CRESTOR) 20 mg tablet Take 20 mg by mouth every evening. gabapentin (NEURONTIN) 100 mg capsule TAKE 1 CAPSULE BY MOUTH AT BEDTIME FOR 1 DAY, THEN TAKE 1 CAPSULE TWICE DAILY FOR 1 DAY, AND THEN TAKE 1 CAPSULE THREE TIMES DAILY aspirin 81 mg chewable tablet Take 81 mg by mouth. amLODIPine (NORVASC) 5 mg tablet Take 10 mg by mouth every morning. cholecalciferol, vitamin D3, 10 mcg (more content not included)... [facility] 12-27-2022 Note HNO ID: [id number] Author: Faraz Beckham MD Service: ? Author Type: Physician Type: Progress Notes Filed: 01/04/2023 7:53 AM Note Text: NAME: Ila Morejon CLINIC NO.: [id number] DATE OF SERVICE: December 27, 2022 (Lory) Some elements in this clinic note that are critical to medical decision making have been carefully reviewed and included from a prior clinic note dated: June 27, 2022 (Lory) Referring Provider: Cruzito Mcgrath Additional Clinicians involved in Ila Morejon's care: DIAGNOSIS: lymphocytosis ASSESSMENT: 77 year old man with DM HTN, PVD presenting with lymphocytosis and diagnosed with CLL early June 2022. 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 He is asymptomatic with no indications for treatment. Continue follow-up plans as previously arranged. PLAN: RTC in 6 months as previously arranged, with labs same day. HPI: CASE HISTORY: Reverse Chronological Order 06/21/2022 - Flow cytometry consistent with CLL positive for CD5 CD19 CD20 CD23 CD45 CD200, monotypic kappa, negative CD10. Small subset of T cells consistent with T-cell large granular lymphocytes and clonal expansion of the beta 20 family. Can be associated with presence of B-cell lymphoproliferative disorder, infections, drug reactions. 06/06/2022 - CBC 18.8>14.0/39.7<185 Abs. Lymph: 10.1 Updated Visit, December 27, 2022: 11 year anniversary today - going to dinner with his Sabrina. Overall he is doing very well. He has no progression on CLL or B symptoms that would suggest he needs intervention. No evidence of T-cell LGL clone is worsening. Updated Visit, June 27, 2022: Telephone only for 8 minutes Called Alexis as requested and spoke to him and his Sabrina. We discussed results from laboratories obtained at his last visit. Findings were consistent with CLL. He additionally has a small indication of a T-cell LGL clone. Continue following. No complaints. Initial Visit, June 21, 2022: Ila Morejon presents today Hematology and Oncology evaluation. He is a 76 year old male who is accompanied by his Sabrina for workup of lymphocytosis. He is asymptomatic and we discussed that this most likely represents CLL. He has a + spleen on exam but otherwise no other lympho-megaly. No B symptoms. We thorouhly reviewed the natural history and etiology of CLL as his presumptive diagnosis. We also discussed the classic time course of this disease process as well as potential treatments. REVIEW OF SYSTEMS Per HPI and otherwise negative by full review of organ systems. ECOG PERFORMANCE STATUS: 0 PHYSICAL EXAMINATION: Vitals: BP 146/56 Pulse 45 Temp (Src) 97.6 (Temporal) Resp 16 Ht 5' 7.5 (1.72m) Wt 170 lb 3.2 oz (77.2kg) SpO2 98% BMI 26.25 kg/(m2). Body surface area is 1.92 meters squared. Exam limited to gross visualization where appropriate. Gen.: This is an age-appropriate patient in no acute distress. Head: Appears atraumatic with no visible lesions. Eyes: Pupils equally round and reactive to light, extraocular muscles are intact. Neck: Supple. Respiratory: Appears to be respiring comfortably. Neurologic: Nonfocal to gross visualization. Alert and oriented ?3. Psychiatric: No evidence of inappropriate anxiety or depression. Skin: Visible areas of skin without rash, lesions, wounds or petechiae. ALLERGIES: ALLERGIES No Known Allergies MEDICATIONS: amLODIPine (NORVASC) 5 mg tablet Take 5 mg by mouth every morning. cholecalciferol, vitamin D3, 10 mcg (400 unit) cap Take 2,000 Units by mouth once daily. insulin glargine (LANTUS) 100 unit/mL injection Inject subcutaneously as directed. ascorbic acid, vitamin C, (VITAMIN C) 500 mg tablet Take 500 mg by mouth once daily. Zinc 50 mg tab Take 50 mg by mouth once daily. coenzyme Q10 (COENZYME Q-10) 100 mg cap capsule Take 100 mg by mouth once daily. carvedilol (COREG) 6.25 mg tablet Take 6.25 mg by mouth twice daily with meals. lisinopril (ZESTRIL, PRINIVIL) 40 mg tablet Take 40 mg by mouth once daily. pravastatin (PRAVACHOL) 20 mg tablet Take 20 mg by mouth once daily. clopidogrel (PLAVIX) 75 mg tablet Take 75 mg by mouth once daily. metFORMIN (GLUCOPHAGE) 500 mg tablet Take 500 mg by mouth daily with breakfast. glipiZIDE (GLUCOTROL) 10 mg tablet Take 10 mg by mouth twice daily before meals. furosemide (LASIX) 40 mg tablet Take 40 mg by mouth once daily. LABORATORY VALUES: WBC (k/uL) Date Value 12/27/2022 19.38 (H) RBC (m (more content not included)... [facility] 12-27-2022 Instructions Faraz Beckham MD - 12/27/2022 2:28 PM EDT RTC in 6 months with labs same day. documented in this encounter [facility] 12-27-2022 History of Present illness Narrative Images from the original note were not included. NAME: BobIla [facility] NO.: [id number] DATE OF SERVICE: December 27, 2022 (Lory) Some elements in this clinic note that are critical to medical decision making have been carefully reviewed and included from a prior clinic note dated: June 27, 2022 (Lory) Referring Provider: Cruzito Mcgrath Additional Clinicians involved in Ila Morejon's care: DIAGNOSIS: lymphocytosis ASSESSMENT: 77 year old man with DM HTN, PVD presenting with lymphocytosis and diagnosed with CLL early June 2022. 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 He is asymptomatic with no indications for treatment. Continue follow-up plans as previously arranged. PLAN: RTC in 6 months as previously arranged, with labs same day. HPI: CASE HISTORY: Reverse Chronological Order 06/21/2022 - Flow cytometry consistent with CLL positive for CD5 CD19 CD20 CD23 CD45 CD200, monotypic kappa, negative CD10. Small subset of T cells consistent with T-cell large granular lymphocytes and clonal expansion of the beta 20 family. Can be associated with presence of B-cell lymphoproliferative disorder, infections, drug reactions. 06/06/2022 - CBC 18.8>14.0/39.7<185 Abs. Lymph: 10.1 Updated Visit, December 27, 2022: 11 year anniversary today - going to dinner with his Sabrina. Overall he is doing very well. He has no progression on CLL or B symptoms that would suggest he needs intervention. No evidence of T-cell LGL clone is worsening. Updated Visit, June 27, 2022: Telephone only for 8 minutes Called Alexis as requested and spoke to him and his Sabrina. We discussed results from laboratories obtained at his last visit. Findings were consistent with CLL. He additionally has a small indication of a T-cell LGL clone. Continue following. No complaints. Initial Visit, June 21, 2022: Ila Morejon presents today Hematology and Oncology evaluation. He is a 76 year old male who is accompanied by his Sabrina for workup of lymphocytosis. He is asymptomatic and we discussed that this most likely represents CLL. He has a + spleen on exam but otherwise no other lympho-megaly. No B symptoms. We thorouhly reviewed the natural history and etiology of CLL as his presumptive diagnosis. We also discussed the classic time course of this disease process as well as potential treatments. REVIEW OF SYSTEMS Per HPI and otherwise negative by full review of organ systems. ECOG PERFORMANCE STATUS: 0 PHYSICAL EXAMINATION: Vitals: BP 146/56 Pulse 45 Temp (Src) 97.6 (Temporal) Resp 16 Ht 5' 7.5 (1.72m) Wt 170 lb 3.2 oz (77.2kg) SpO2 98% BMI 26.25 kg/(m^2). Body surface area is 1.92 meters squared. Exam limited to gross visualization where appropriate. Gen.: This is an age-appropriate patient in no acute distress. Head: Appears atraumatic with no visible lesions. Eyes: Pupils equally round and reactive to light, extraocular muscles are intact. Neck: Supple. Respiratory: Appears to be respiring comfortably. Neurologic: Nonfocal to gross visualization. Alert and oriented 3. Psychiatric: No evidence of inappropriate anxiety or depression. Skin: Visible areas of skin without rash, lesions, wounds or petechiae. ALLERGIES: ALLERGIES No Known Allergies MEDICATIONS: amLODIPine (NORVASC) 5 mg tablet Take 5 mg by mouth every morning. cholecalciferol, vitamin D3, 10 mcg (400 unit) cap Take 2,000 Units by mouth once daily. insulin glargine (LANTUS) 100 unit/mL injection Inject subcutaneously as directed. ascorbic acid, vitamin C, (VITAMIN C) 500 mg tablet Take 500 mg by mouth once daily. Zinc 50 mg tab Take 50 mg by mouth once daily. coenzyme Q10 (COENZYME Q-10) 100 mg cap capsule Take 100 mg by mouth once daily. carvedilol (COREG) 6.25 mg tablet Take 6.25 mg by mouth twice daily with meals. lisinopril (ZESTRIL, PRINIVIL) 40 mg tablet Take 40 mg by mouth once daily. pravastatin (PRAVACHOL) 20 mg tablet Take 20 mg by mouth once daily. clopidogrel (PLAVIX) 75 mg tablet Take 75 mg by mouth once daily. metFORMIN (GLUCOPHAGE) 500 mg tablet Take 500 mg by mouth daily with breakfast. glipiZIDE (GLUCOTROL) 10 mg tablet Take 10 mg by mouth twice daily before meals. furosemide (LASIX) 40 mg tablet Take 40 mg by mouth once daily. LABORATORY VALUES: WBC (k/uL) Date Value 12/27/2022 19.38 (H) RBC (m/uL) Date Value 12/27/2022 4.20 Hemoglobin (g/dL) Date Value 12/27/2022 13.1 Hematocrit (%) Date Value 12/27/2022 36.7 (L) MCV (fL) Date Value 12/27/2022 87.4 MCH (pg) Date Value 12/27/2022 31.2 MCHC (g/dL) Date Value 12/27/2022 35.7 RDW-CV (%) Date Value 12/27/2022 12.5 Platelet Count (k/uL) Date Value 12/27/2022 186 MPV (fL) Date Value 12/27/2022 10.0 Glucose (mg/dL) Date Value 12/27/2022 268 (H) BUN (mg/dL) Date Value 12/27/2022 26 (H) Creatinine (mg/dL) Date Value 12/27/2022 1.45 (H) Sodium (mmol/L) Date Value 12/27/2022 134 (L) Potassium (mmol/L) Date Value 12/27/2022 4.8 Chloride (mmol/L) Date Value 12/27/2022 103 CO2 (mmol/L) Date Value 12/27/2022 24 Protein, Total (g/dL) Date Value 12/27/2022 5.8 (L) Albumin (g/dL) Date Value 12/27/2022 3.6 (L) Calcium, Total (mg/dL) Date Value 12/27/2022 9.0 Alkaline Phosphatase (U/L) Date Value 12/27/2022 119 (H) Bilirubin, Total (mg/dL) Date Value 12/27/2022 0.5 AST (U/L) Date Value 12/27/2022 15 ALT (U/L) Date Value 12/27/2022 19 DIAGNOSIS: (C91.10) CLL (chronic lymphocytic leukemia) (HCC) (primary encounter diagnosis) Plan: URIC ACID BLOOD, LD LACTATE DEHYDRO, CBC + DIFF, COMP METABOLIC PANEL (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 Plan: URIC ACID BLOOD, LD LACTATE DEHYDRO, CBC + DIFF, COMP METABOLIC PANEL PAST MEDICAL HISTORY Diagnosis Date CAD (coronary artery disease) Diabetes mellitus (HCC) Dyslipidemia Hypertension Inguinal hernia Left Leukocytosis Peripheral vascular disease (HCC) Vitamin D deficiency PAST SURGICAL HISTORY Procedure Laterality Date HERNIA REPAIR HX Social History Tobacco Use Smoking status: Former Types: Cigarettes Passive exposure: Past Smokeless tobacco: Never FAMILY HISTORY Problem Relation Age of Onset Diabetes Mother Cancer Father Diabetes Father I spent a total of 20 minutes on the date of the service which included preparing to see the patient, [id number] patient care, completing clinical documentation, obtaining and/or reviewing separately obtained history, performing a medically appropriate examination, counseling and educating the patient/family/caregiver, ordering medications, tests, or procedures, and independently interpreting results (not separately reported). Faraz Beckham MD, CPE Hematology and Oncology Services Provided at: [place], [place] CC: Cruzito Mcgrath MD ([facility]) [address] [facility] [address] documented in this encounter [facility] 12-08-2022 Instructions Faraz Beckham MD - 06/27/2022 5:37 PM EST Keep prior documented in this encounter [facility] 06-27-2022 History of Present illness Narrative Images from the original note were not included. NAME: Ila Morejon CLINIC NO.: [id number] DATE OF SERVICE: June 27, 2022 (Lory) Some elements in this clinic note that are critical to medical decision making have been carefully reviewed and included from a prior clinic note dated: June 21, 2022 (Lory) Referring Provider: Cruzito Mcgrath Additional Clinicians involved in Ila Morejon's care: VIRTUAL VISIT PROGRESS NOTE This is a virtual visit using Telephone only for 8 minutes. It required patient-provider interaction for the medical decision making as documented below. DIAGNOSIS: lymphocytosis ASSESSMENT: 76 year old man with DM HTN, PVD presenting with lymphocytosis and diagnosed with CLL early June 2022. 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 He is asymptomatic with no indications for treatment. Continue follow-up plans as previously arranged. PLAN: RTC in 6 months as previously arranged, with labs same day. HPI: CASE HISTORY: Reverse Chronological Order 06/21/2022 - Flow cytometry consistent with CLL positive for CD5 CD19 CD20 CD23 CD45 CD200, monotypic kappa, negative CD10. Small subset of T cells consistent with T-cell large granular lymphocytes and clonal expansion of the beta 20 family. Can be associated with presence of B-cell lymphoproliferative disorder, infections, drug reactions. 06/06/2022 - CBC 18.8>14.0/39.7<185 Abs. Lymph: 10.1 Updated Visit, June 27, 2022: Telephone only for 8 minutes Called Alexis as requested and spoke to him and his Sabrina. We discussed results from laboratories obtained at his last visit. Findings were consistent with CLL. He additionally has a small indication of a T-cell LGL clone. Continue following. No complaints. Initial Visit, June 21, 2022: Ila Morejon presents today Hematology and Oncology evaluation. He is a 76 year old male who is accompanied by his Sabrina for workup of lymphocytosis. He is asymptomatic and we discussed that this most likely represents CLL. He has a + spleen on exam but otherwise no other lympho-megaly. No B symptoms. We thorouhly reviewed the natural history and etiology of CLL as his presumptive diagnosis. We also discussed the classic time course of this disease process as well as potential treatments. HISTORY REVIEWED (electronic chart updated): PAST MEDICAL HISTORY Diagnosis Date CAD (coronary artery disease) Diabetes mellitus (HCC) Dyslipidemia Hypertension Inguinal hernia Left Leukocytosis Peripheral vascular disease (HCC) Vitamin D deficiency PAST SURGICAL HISTORY Procedure Laterality Date HERNIA REPAIR HX FAMILY HISTORY Problem Relation Age of Onset Diabetes Mother Cancer Father Diabetes Father Social History Tobacco Use Smoking status: Former Types: Cigarettes Passive exposure: Past Smokeless tobacco: Never Current Outpatient Medications Medication Sig amLODIPine (NORVASC) 5 mg tablet Take 5 mg by mouth every morning. cholecalciferol, vitamin D3, 10 mcg (400 unit) cap Take 2,000 Units by mouth once daily. insulin glargine (LANTUS) 100 unit/mL injection Inject subcutaneously as directed. ascorbic acid, vitamin C, (VITAMIN C) 500 mg tablet Take 500 mg by mouth once daily. Zinc 50 mg tab Take 50 mg by mouth once daily. coenzyme Q10 (CO Q-10) 100 mg cap capsule Take 100 mg by mouth once daily. carvedilol (COREG) 6.25 mg tablet Take 6.25 mg by mouth twice daily with meals. lisinopril (ZESTRIL, PRINIVIL) 40 mg tablet Take 40 mg by mouth once daily. pravastatin (PRAVACHOL) 20 mg tablet Take 20 mg by mouth once daily. clopidogrel (PLAVIX) 75 mg tablet Take 75 mg by mouth once daily. metFORMIN (GLUCOPHAGE) 500 mg tablet Take 500 mg by mouth daily with breakfast. glipiZIDE (GLUCOTROL) 10 mg tablet Take 10 mg by mouth twice daily before meals. furosemide (LASIX) 40 mg tablet Take 40 mg by mouth once daily. No current facility-administered medications for this visit. ALLERGIES No Known Allergies REVIEW OF SYSTEMS: As noted in HPI PHYSICAL EXAMINATION: VIDEO EXAM: (if completed, performed via video enabled technology) No exam performed LABORATORY VALUES: WBC (k/uL) Date Value 06/21/2022 16.52 (H) RBC (m/uL) Date Value 06/21/2022 4.90 Hemoglobin (g/dL) Date Value 06/21/2022 15.1 Hematocrit (%) Date Value 06/21/2022 43.5 MCV (fL) Date Value 06/21/2022 88.8 MCH (pg) Date Value 06/21/2022 30.8 MCHC (g/dL) Date Value 06/21/2022 34.7 RDW-CV (%) Date Value 06/21/2022 12.5 Platelet Count (k/uL) Date Value 06/21/2022 204 MPV (fL) Date Value 06/21/2022 10.4 Glucose (mg/dL) Date Value 06/21/2022 180 (H) BUN (mg/dL) Date Value 06/21/2022 31 (H) Creatinine (mg/dL) Date Value 06/21/2022 1.19 Sodium (mmol/L) Date Value 06/21/2022 138 Potassium (mmol/L) Date Value 06/21/2022 5.4 (H) Chloride (mmol/L) Date Value 06/21/2022 108 (H) CO2 (mmol/L) Date Value 06/21/2022 27 Protein, Total (g/dL) Date Value 06/21/2022 6.2 (L) 06/21/2022 6.0 (L) Albumin (g/dL) Date Value 06/21/2022 3.7 (L) Calcium, Total (mg/dL) Date Value 06/21/2022 9.4 Alkaline Phosphatase (U/L) Date Value 06/21/2022 117 (H) Bilirubin, Total (mg/dL) Date Value 06/21/2022 0.4 AST (U/L) Date Value 06/21/2022 13 (L) ALT (U/L) Date Value 06/21/2022 9 (L) DIAGNOSIS: (C91.10) CLL (chronic lymphocytic leukemia) (HCC) (primary encounter diagnosis) (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 Miryam Gunter MA documented in this encounter [facility] 06-21-2022 Instructions Faraz Beckham MD - 06/21/2022 3:40 PM EST Phone call next week with results RTC in 6 months with labs same day. documented in this encounter [facility] 06-21-2022 History of Present illness Narrative Images from the original note were not included. NAME: Ila Mroejon CLINIC NO.: [id number] DATE OF SERVICE: June 21, 2022 Referring Provider: Cruzito Mcgrath Consultation requested by Dr. Mcgrath for an opinion regarding Mr. Ila Morejon, and my final recommendations will be communicated back to the requesting physician by way of shared medical record or letter via US mail. Additional Clinicians involved in Ila Morejon's care: DIAGNOSIS: lymphocytosis ASSESSMENT: 76 year old man with DM HTN, PVD presenting with lymphocytosis that likely represents an early presentation of a low grade lymphoproliferative disorder which would include CLL. Laboratory workup is pending. PLAN: Phone call next week with results RTC in 6 months with labs same day. HPI: CASE HISTORY: Reverse Chronological Order 06/06/2022 - CBC 18.8>14.0/39.7<185 Abs. Lymph: 10.1 Initial Visit, June 21, 2022: Ila Morejon presents today Hematology and Oncology evaluation. He is a 76 year old male who is accompanied by his Sabrina for workup of lymphocytosis. He is asymptomatic and we discussed that this most likely represents CLL. He has a + spleen on exam but otherwise no other lympho-megaly. No B symptoms. We thorouhly reviewed the natural history and etiology of CLL as his presumptive diagnosis. We also discussed the classic time course of this disease process as well as potential treatments. REVIEW OF SYSTEMS Per HPI and otherwise negative by full review of organ systems. ECOG PERFORMANCE STATUS: 0 PHYSICAL EXAMINATION: Vitals: BP 179/48 Pulse 40 Temp (Src) 97.6 (Temporal) Resp 16 Ht 5' 8 (1.73m) Wt 169 lb 12.8 oz (77.0kg) SpO2 99% BMI 25.82 kg/(m^2). Body surface area is 1.92 meters squared. Exam limited to gross visualization where appropriate due to COVID-19. Gen.: This is an age-appropriate patient in no acute distress. Head: Appears atraumatic with no visible lesions. Eyes: Pupils equally round and reactive to light, extraocular muscles are intact. Neck: Supple. Mouth: Masked. Respiratory: Appears to be respiring comfortably. Neurologic: Nonfocal to gross visualization. Alert and oriented 3. Psychiatric: No evidence of inappropriate anxiety or depression. Skin: Visible areas of skin without rash, lesions, wounds or petechiae. + spleen on palpation. No lymph-nodes palpable. ALLERGIES: ALLERGIES No Known Allergies MEDICATIONS: amLODIPine (NORVASC) 5 mg tablet Take 5 mg by mouth every morning. cholecalciferol, vitamin D3, 10 mcg (400 unit) cap Take 2,000 Units by mouth once daily. insulin glargine (LANTUS) 100 unit/mL injection Inject subcutaneously as directed. lisinopril (ZESTRIL, PRINIVIL) 40 mg tablet Take 40 mg by mouth once daily. pravastatin (PRAVACHOL) 20 mg tablet Take 20 mg by mouth once daily. clopidogrel (PLAVIX) 75 mg tablet Take 75 mg by mouth once daily. metFORMIN (GLUCOPHAGE) 500 mg tablet Take 500 mg by mouth daily with breakfast. glipiZIDE (GLUCOTROL) 10 mg tablet Take 10 mg by mouth twice daily before meals. ascorbic acid, vitamin C, (VITAMIN C) 500 mg tablet Take 500 mg by mouth once daily. Zinc 50 mg tab Take 50 mg by mouth once daily. coenzyme Q10 (CO Q-10) 100 mg cap capsule Take 100 mg by mouth once daily. carvedilol (COREG) 6.25 mg tablet Take 6.25 mg by mouth twice daily with meals. furosemide (LASIX) 40 mg tablet Take 40 mg by mouth once daily. LABORATORY VALUES: WBC (k/uL) Date Value 06/21/2022 16.52 (H) RBC (m/uL) Date Value 06/21/2022 4.90 Hemoglobin (g/dL) Date Value 06/21/2022 15.1 Hematocrit (%) Date Value 06/21/2022 43.5 MCV (fL) Date Value 06/21/2022 88.8 MCH (pg) Date Value 06/21/2022 30.8 MCHC (g/dL) Date Value 06/21/2022 34.7 RDW-CV (%) Date Value 06/21/2022 12.5 Platelet Count (k/uL) Date Value 06/21/2022 204 MPV (fL) Date Value 06/21/2022 10.4 Glucose (mg/dL) Date Value 06/21/2022 180 (H) BUN (mg/dL) Date Value 06/21/2022 31 (H) Creatinine (mg/dL) Date Value 06/21/2022 1.19 Sodium (mmol/L) Date Value 06/21/2022 138 Potassium (mmol/L) Date Value 06/21/2022 5.4 (H) Chloride (mmol/L) Date Value 06/21/2022 108 (H) CO2 (mmol/L) Date Value 06/21/2022 27 Protein, Total (g/dL) Date Value 06/21/2022 6.2 (L) 06/21/2022 6.0 (L) Albumin (g/dL) Date Value 06/21/2022 3.7 (L) Calcium, Total (mg/dL) Date Value 06/21/2022 9.4 Alkaline Phosphatase (U/L) Date Value 06/21/2022 117 (H) Bilirubin, Total (mg/dL) Date Value 06/21/2022 0.4 AST (U/L) Date Value 06/21/2022 13 (L) ALT (U/L) Date Value 06/21/2022 9 (L) DIAGNOSIS: (D72.820) Lymphocytosis (primary encounter diagnosis) Plan: LD LACTATE DEHYDRO, CBC + DIFF, COMP METABOLIC PANEL, URIC ACID BLOOD, PROTEIN ELECTROPHORESIS SERUM W/INTERP, CAMILO DIRECT, T CELL V BETA BY FC, FISH FOR CLL, B2 MICROGLOBULIN B, FLOW CYTOMETRY PERIPHERAL BLOOD LEUK/LYMPH (FCLEUK) PAST MEDICAL HISTORY Diagnosis Date CAD (coronary artery disease) Diabetes mellitus (HCC) Dyslipidemia Hypertension Inguinal hernia Left Leukocytosis Peripheral vascular disease (HCC) Vitamin D deficiency PAST SURGICAL HISTORY Procedure Laterality Date HERNIA REPAIR HX Social History Tobacco Use Smoking status: Former Types: Cigarettes Passive exposure: Past Smokeless tobacco: Never FAMILY HISTORY Problem Relation Age of Onset Diabetes Mother Cancer Father Diabetes Father I spent a total of 60 minutes on the date of the service which included preparing to see the patient, [id number] patient care, completing clinical documentation, obtaining and/or reviewing separately obtained history, performing a medically appropriate examination, counseling and educating the patient/family/caregiver, ordering medications, tests, or procedures, and independently interpreting results (not separately reported). Faraz Beckham MD, CPE Hematology and Oncology Services Provided at: [place], [place] CC: Cruzito Mcgrath MD ([facility]) [address] [facility] [address] documented in this encounter [facility] Evaluation note No assessment inform [facility] Evaluation note Diagnosis Lymphocytosis- Primary Lymphocytosis (symptomatic) [facility] Diagnosis CLL (chronic lymphocytic leukemia) (HCC)- Primary Chronic lymphoid leukemia, without mention of having achieved remission Large granular lymphocytosis Lymphocytosis (symptomatic) [facility] Diagnosis CLL (chronic lymphocytic leukemia) (HCC)- Primary Chronic lymphoid leukemia, without mention of having achieved remission Large granular lymphocytosis Lymphocytosis (symptomatic) Stage 3 chronic kidney disease, unspecified whether stage 3a or 3b CKD (HCC) Type 2 diabetes mellitus 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, unspecified whether intermediate designer insulin use (HCC) [facility] Diagnosis Bradycardia- Primary Other specified cardiac dysrhythmias [facility] History of coronary angioplasty with insertion of stent- Primary Pulmonary hypertension ([facility]) Other chronic pulmonary heart diseases Primary hypertension Unspecified essential hypertension Hx of hyperlipidemia Sinus pause [facility] Diagnosis Coronary artery disease involving [place] coronary artery of [place] heart without angina pectoris- Primary Sinus pause Hypertension, unspecified type NSTEMI (non-ST elevated myocardial infarction) ([facility]) Acute myocardial infarction, subendocardial infarction, episode of care unspecified [facility] filedocumented [facility] SystemInstructionsNot on filedocumented in this encounter [facility]Not on filedocumented in this encounter [facility]ructionsNot on filedocumented in this encounter [facility]ructionsNot on filedocumented [facility] Consultation (Routine) - Pending Review Specialty Diagnoses / Procedures Referred By Lynne paniagua Referred To Contact Cardiology Diagnoses Sinus pause Debbie Gonzalez MD [address] [place] [address] Jerry An MD [address] [address] Referral ID Status Reason Start Date Expiration Date Visits Requested Visits Authorized [id number] Pending Review Specialty Services Required 08/27/2023 08/26/2024 1 1 [facility] Narrative* Consultation (Routine) - Pending Review Specialty Diagnoses / Procedures Referred By Contac t Referred To Contact Cardiac Rehabilitation Diagnoses S/P drug eluting coronary stent placement Procedures [facility] - Cardiac Re[facility] - [place], [place] Tayler Corey MD [address] [place] [address] [facility] Cardiac Rehab Billing [address] [place] [address] Referral ID Status Reason Start Date Expiration Date V isits Requested Visits Authorized [id number] Pending Review 04/07/2023 04/06/2024 36 36 [facility] Chief Complaint and Reason for Visit Chief Complaint Z01.818 I70.213 Chief Complaint Unknown Advance Directives No Advanced Directives Records Found Advance Directive Response Recorded Date/ Time Advance Directives No January 01 4:38pm Documents on File Type Date Recorded Patient Receivable Manager Expl anation Durable Power of Mixing Engineer 04/14/2023 3:27 PM Living Will 04/14/2023 3:19 PM Latest Code Status on File Code Status Date Activated Date Inactivated Comments Full Code 04/05/2023 2:40 PM 04/08/2023 6:56 PM Documents on File Type Date Recorded Patient Receivable Manager Expl anation Durable Power of Mixing Engineer 04/14/2023 3:27 PM Living Will 04/14/2023 3:19 PM Latest Code Status on File Code Status Date Activated Date Inactivated Comments Full Code 04/05/2023 2:40 PM 04/08/2023 6:56 PM Summary Purpose Family History No Family History Records Found Relationship Condition Age at Onset Recorded Date/T carli Not Specified No pertinent family history Unknown father Unknown Not Specified Unknown Reason for Referral Specialty Diagnoses / Procedures Referred By Contac t Referred To Contact Diagnoses Bradycardia Procedures Holter monitor 24-48 hour Wayne Donald MD [address] [place] [address] Referral ID Status Reason Start Date Expiration Date V isits Requested Visits Authorized [id number] Pending Review 08/04/2023 08/03/2024 1 1 Additional Source Comments Goals (unrecognized section and content) Goals may be documented in a n alternate sectionGoals may be documented in an alternate section (unrecognized sect ion and content) No Status Records FoundNo Status Records FoundNo Status Records FoundNo Status Records FoundNo Status Records FoundNo Status Records Found INFORMATION SOURCE (unrecogn ized section and content) DATE CREATED AUTHOR 06/10/2022 [facility] DATE CREATED AUTHOR AUTHOR'S ORGANIZ ATION 07/18/2023 [facility] DATE CREATED AUTHOR AUTHOR'S ORGANIZ ATION 07/23/2023 [facility]ical [facility] DATE CREATED AUTHOR AUTHOR'S ORGANIZ ATION 09/01/2023 [facility] DATE CREATED AUTHOR AUTHOR'S ORGANIZ ATION 09/05/2023 [facility] DATE CREATED AUTHOR AUTHOR'S ORGANIZ ATION 12/31/2023 [facility] Source Comments (unrecognize d section and content) In the event this informatio n is protected by the Federal Confidentiality of Alcohol and Drug Abuse Patient Records regulations: The Federal rules restrict any use of the information to criminally investigate or prosecute any alcohol or drug abuse patient.[facility] the event this information is protected by the Federal Confidentiality of Alcohol and Drug Abuse Patient Records regulations: The Federal rules restrict any use of the information to criminally investigate or prosecute any alcohol or drug abuse patient.[facility] the event this information is protected by the Federal Confidentiality of Alcohol and Drug Abuse Patient Records regulations: The Federal rules restrict any use of the information to criminally investigate or prosecute any alcohol or drug abuse patient.[facility] the event this information is protected by the Federal Confidentiality of Alcohol and Drug Abuse Patient Records regulations: The Federal rules restrict any use of the information to criminally investigate or prosecute any alcohol or drug abuse patient.[facility] Reason for Visit (unrecogniz ed section and content) Reason Comments leukocytosis Reason Comments Established Patient Reason Comments CLL Reason Comments Follow-up OV F/U 1 MO BRADYCAR FUNMILAYO, HM DONE PER LLD SCHED W/PT Reason Comments New Patient ov (consult) per MS sinus pause states needs ppm imp - per [facility] with ep myles while ep md in office - shlomo w pt Specialty Diagnoses / Procedures Referred By Lynne paniagua Referred To Contact Cardiology Diagnoses Sinus pause Debbie Gonzalez MD [address] [place] [address] Jerry An MD [address] [place] [address] Referral ID Status Reason Start Date Expiration Date Visits Requested Visits Authorized [id number] Pending Review Specialty Services Required 08/27/2023 08/26/2024 1 1 Care Teams (unrecognized sec tion and content) Composing Room Machinist Relationship Specialty Start Date End Date Cruzito Mcgrath [address] [place] [address] PCP - General Family Medicine 06/21/22 Composing Room Machinist Relationship Specialty Start Date End Date Cruzito Mcgrath [address] [place] [address] PCP - General Family Medicine 06/21/22 Composing Room Machinist Relationship Specialty Start Date End Date Cruzito Mcgrath [address] [place] [address] PCP - General Family Medicine 06/21/22 Composing Room Machinist Relationship Specialty Start Date End Date Cruzito Mcgrath MD [address] [place] [facility] [place] [address] PCP - General Family Medicine 04/19/21 Composing Room Machinist Relationship Specialty Start Date End Date Cruzito Mcgrath MD [address] [place] [facility] [place] [address] PCP - General Family Medicine 04/19/21 Composing Room Machinist Relationship Specialty Start Date End Date Cruzito Mcgrath MD [address] [place] [facility] [place] [address] PCP - General Family Medicine 04/19/21 Composing Room Machinist Relationship Specialty Start Date End Date Cruzito Mcgrath MD [address] [place] [facility] [place] [address] PCP - General Family Medicine 04/19/21 Composing Room Machinist Relationship Specialty Start Date End Date Cruzito Mcgrath MD [address] [place] [address] PCP - General Family Medicine 04/19/21 Composing Room Machinist Relationship Specialty Start Date End Date Cruzito Mcgrath MD [address] [place] [facility] [place] [address] PCP - General Family Medicine 04/19/21 Composing Room Machinist Relationship Specialty Start Date End Date Cruzito Mcgrath MD [address] [place] [facility] [place] [address] PCP - General Family Medicine 04/19/21 Composing Room Machinist Relationship Specialty Start Date End Date Cruzito Mcgrath MD [address] [place] [place] [address] PCP - General Family Medicine 04/19/21 Composing Room Machinist Relationship Specialty Start Date End Date Cruzito Mcgrath MD [address] [place] [facility] [place] [address] PCP - General Family Medicine 04/19/21 Composing Room Machinist Relationship Specialty Start Date End Date Cruzito Mcgrath MD [address] [place] [place] [address] PCP - General Family Medicine 04/19/21 Composing Room Machinist Relationship Specialty Start Date End Date Cruzito Mcgrath MD [address] [place] [place] [address] PCP - General Family Medicine 04/19/21 Composing Room Machinist Relationship Specialty Start Date End Date Cruzito Mcgrath MD [address] [place] [place] [address] PCP - General Family Medicine 04/19/21 Composing Room Machinist Relationship Specialty Start Date End Date Cruzito Mcgrath MD [address] [place] [facility] [place] [address] PCP - General Family Medicine 04/19/21 Team Status: Inactive Member Role Status Dates Arminda L Rice , DO Attending Provider Active Sta rt: December 27, 2023 End: December 27, 2023 FOR RECORDS PERTAINING TO PATIENTS WHO ARE OR HAVE BEEN ENROLLED IN A CHEMICAL DEPENDENCY/SUBSTANCEABUSE PROGRAM, SOME INFORMATION MAY BE OMITTED. This clinical summary was aggregated from multiple sources. Caution should be exercised in using it in the provision of clinical care. This summary normalizes information from multiple sources, and as a consequence, information in this document may materially change the coding, format and clinical context of patient data. In addition, data may be omitted in some cases. CLINICAL DECISIONS SHOULD BE BASED ON THE PRIMARY CLINICAL RECORDS. [facility] [employer] [facility]. provides no warranty or guarantee of the accuracy or completeness of information in this document.
[2024-01-07 08:10] LABS: Hemoglobin 10.4 g/dL (14.0-18.0); Mean Corpuscular HGB Conc 33.5 g/dL (29.9-35.2); Mean Corpuscular Hemoglobin 31.2 pg (25.9-34.0); Mean Corpuscular Volume 93.1 fL (80.0-94.0); Mean Platelet Volume 10.9 fL (9.5-13.5); Platelet Count 164 10^3/uL (150-450); Red Blood Count 3.33 10^6/uL (4.70-6.10); Red Cell Distribution Width 13.2 % (11.0-15.0); White Blood Count 18.2 10^3/uL (4.0-11.0)
[2024-01-07 08:28] LABS: Estimated Average Glucose 174 mg/dL; Glycohemoglobin A1C 7.7 % (4.5-6.2)
[2024-01-07 08:32] LABS: Band Neutrophils Absolute 0.2 10^3/uL (0.0-0.3); Eosinophils Absolute Manual 0.54 10^3/uL (0.00-0.70); Lymphocytes Absolute Manual 6.73 10^3/uL (1.20-3.80); Metamyelocytes Absolute Manual 0.18; Monocytes Absolute Manual 0.18 10^3/uL (0.30-0.80); Segmented Neut Absolute Manual 10.37 10^3/uL (1.4-6.5)
[2024-01-07 08:33] LABS: Smudge Cells SEEN
[2024-01-07 08:36] LABS: Alanine Aminotransferase 41 U/L (16-63); Albumin Globulin Ratio 0.8; Albumin Level 2.7 g/dL (3.4-5.0); Alkaline Phosphatase 104 U/L (46-116); Anion Gap 12.1; Aspartate Amino Transferase 19 U/L (15-37); BUN Creatinine Ratio 17.2; Bilirubin Direct 0.1 mg/dL (0.0-0.2); Bilirubin Total 0.5 mg/dL (0.2-1.0); Calcium 8.5 mg/dL (8.5-10.1); Carbon Dioxide 25.2 mmol/L (21.0-32.0); Chloride 105 mmol/L (98-107); Chol HDL Ratio 1.6; Cholesterol 84 mg/dL (<=200); Estimated GFR (African America 38 (>=60); Estimated GFR (Non-African Ame 31 (>=60); Globulin 3.2 g/dL; Glucose 323 mg/dL (74-106); HDL Cholesterol 51 mg/dL (40-60); LDL Cholesterol Calculated 19.2 mg/dL; Potassium 5.3 mmol/L (3.5-5.1); Sodium 137 mmol/L (136-145); Total Protein 5.9 g/dL (6.4-8.2); Triglycerides 69 mg/dL (<=150); VLDL CHOLESTEROL 13.8 mg/dL
[2024-01-07 08:54] LABS: Microalbumin Urine Random 23.8 mg/dL (<=30.0)
== END 2024-01-07 07:37 | disposition home or self-care (01) ==
LOC: LAB 07:37
PROVIDERS: PCP Family Medicine; Visit Provider Family Medicine
DX: E78.2 Mixed hyperlipidemia (principal); E11.65 Type 2 diabetes mellitus with hyperglycemia; Z79.4 Long term (current) use of insulin; I10 Essential (primary) hypertension; Z79.899 Other long term (current) drug therapy; E55.9 Vitamin D deficiency, unspecified
CPT/HCPCS: 36415; 80048; 80061; 80076; 82043; 82306; 83036; 85007; 85027

== ENCOUNTER 2024-02-27 10:19 | Outpatient (OUT) | payer MEDICARE, SELFPAY ==
--- NOTE | 2024-02-27 10:25 | XR_ITS ---
The [address] [address] Patient Name: ILA MOREJON MRN: [id number] date: 1945 Sex: M Assigned Patient Location: [facility] Current Patient Location: Accession/Order Number: [id number] Exam Date: 02/27/2024 10:31 Report Date: 03/02/2024 06:26 At the request of: AMARIS MCGRATH Procedure: XR lumbar spine 2-3V EXAMINATION: XR lumbar spine 2-3V HISTORY: Degenerative Disc Disease ; chronic lower right back pain radiating into right leg COMPARISON: XR lumbar spine 12/08/2013 FINDINGS: BONES: Mild left convex curvature lumbar spine. No fracture or spondylolisthesis. Moderate degenerative facet arthropathy L2-L3 through L5-S1. DISC SPACES: Moderate narrowing L4-L5, L5-S1. PARASPINOUS: Marked atherosclerotic disease of aorta; no appreciable aneurysm. OTHER: Negative. XR/XR lumbar spine 2-3V IMPRESSION: 1. Moderate degenerative disc disease and multilevel moderate degenerative facet arthropathy; progressed since prior study. Electronically authenticated by: JOSÉ MANUEL TAVAREZ Date: 03/02/2024 06:26
--- OUTSIDE RECORDS SUMMARY | 2024-02-27 10:28 | XMS_ITS | CCD ---
Author Organization [facility] Care Team Providers Care Manufacturing Development Engineer Name Role Phone Cruzito Mcgrath Primary Care Provider Luiz Glass Attending Provider [phone] ALCIDES, DR CRUZITO Yan Admitting Unavailable NADERER, DR CRUZITO Yan Attending Unavailable NADERER, DR CRUZITO Yan Primary Care Unavailable NADERER, DR CRUZITO Yan Consulting Unavailable NADERER, DR CRUZITO Yan Admitting Unavailable NADERER, DR CRUZITO Yan Attending Unavailable NADERER, DR CRUZITO Yan Primary Care Unavailable NADERER, DR CRUZITO Yan Consulting Unavailable Unavailable Primary Care Provider Unavaileleonora e Cruzito Mcgrath Primary Care Provider [phone] Cruzito Mcgrath MD Primary Care Provider GENEVA SANDERS Attending Unavail able DEBBIE GONZALEZ Referring Unavailable CRUZITO MCGRATH Primary Care Unavailable DO Arminda Valverde Attending Provider CRUZITO MCGRATH Attending Unavailable NADERECoral, CRUZITO Attending Unavailable RACHELHEMELY CHEN Attending Unavailable NADERER, CRUZITO Attending Unavailable PETBRAD ALTAMIRANO Attending Unavailable NADERECoral, CRUZITO Attending Unavailable Arminda Valverde Attending Unavailable Arminda Valverde Admitting Unavailable Cruzito Mcgrath Primary Care Provider [phone] FARAZ BECKHAM Attending Unavailable CRUZITO MCGRATH Primary Care Unavailable ABHYANKARBABAKEK Referring Unavailable NADERECRUZITO Moncada Primary Care Unavailable ABHYANKARBABAKEK Referring Unavailable LURDESERECRUZITO Moncada Primary Care Unavailable ABHYANKAR, FARAZ Referring Unavailable ABHYANKAR, FARAZ Attending Unavailable CRUZITO MCGRATH Primary Care Unavailable ABHYANKAR, FARAZ Referring Unavailable TAYLER COREY Referring Unavailabl e NADERERCRUZITO Primary Care Unavailable LEORATAYLER Referring Unavailabl e NADERER, CRUZITO Primary Care Unavailable TAYLER COREY Referring Unavailabl e NADERER, CRUZITO Primary Care Unavailable LEORATAYLER Referring Unavailabl e NADERER, CRUZITO Primary Care Unavailable NADERER, CRUZITO Referring Unavailable NADERER, CRUZITO Primary Care Unavailable LEORATAYLER Referring Unavailabl e NADERER, CRUZITO Primary Care Unavailable LEORATAYLER Referring Unavailabl e NADERER, CRUZITO Primary Care Unavailable JUDAH COSTELLO Attending Unavailable JUDAH COSTELLO Referring Unavailable NADERER, CRUZITO Primary Care Unavailable LEORATAYLER VARGAS Referring Unavailabl e NADERER, CRUZITO Primary Care Unavailable LEORATAYLER Referring Unavailabl e NADERER, CRUZITO Primary Care Unavailable WAYNE DONALD Attending Unavailable WAYNE DONALD Referring Unavailable NADERER, CRUZITO Primary Care Unavailable LEORATAYLER VARGAS Referring Unavailabl e NADERER, CRUZITO Primary Care Unavailable TAYLER COREY Referring Unavailabl e NADERER, CRUZITO Primary Care Unavailable LEORATAYLER VARGAS Referring Unavailabl e NADERER, CRUZITO Primary Care [...] e NADERER, CRUZITO Primary Care Unavailable LEORATAYLER VARGAS Referring Unavailabl e NADERER, CRUZITO Primary Care Unavailable DEBBIE GONZALEZ Attending Unavailable CRUZITO MCGRATH Referring Unavailable NADERER, CRUZITO Primary Care Unavailable LEORATAYLER Referring Unavailabl e NADERER, CRUZITO Primary Care Unavailable LEORATAYLER VARGAS Referring Unavailabl e NADERER, CRUZITO Primary Care Unavailable Medications Current Medications Medication Drug Class(es) Dates Sig (Normalized) Sig (Original) amLODIPine 10 mg oral tablet (18 sources) Dihydropyridine Calcium Channel Veronica Start: 10-20-2023 take 1 tablet by mouth in the morning amLODIPine (NORVASC) 10 mg tablet TAKE 1 TABLET BY MOUTH IN THE MORNING 90 tablet 3 05/09/2023 Active Start: 06-14-2022 take 2 tablets by mo uth once daily in the morning amLODIPine (NORVASC) 5 mg tablet Take 10 mg by mouth every morning. 0 06/14/2022 Active Start: 06-14-2022 take 1 tablet by sierra th once daily in the morning amLODIPine (NORVASC) 5 mg tablet Take 5 mg by mouth every morning. 0 06/14/2022 Active Comment on above: Take 5 mg by mouth e very morning. ascorbic acid 500 mg oral tablet (6 sources) Vitamin C Start: 01-03-20 take 1 tablet by mouth once daily Ascorbic Acid (Vitamin C) (Vitamin C) 500 mg Tablet Active 500 MG PO Daily January 02, 2021 12:00am Comment on above: Take 500 mg by mouth once daily. aspirin 81 mg chewable tablet (15 sources) Platelet Aggregation Inhibitor, Nonsteroidal Anti-inflammatory Drug Start: 04-09-20 23 End: 04-03-20 24 aspirin 81 mg chewable tablet Take 81 mg by mouth. 0 04/09/2023 04/03/2024 Active Calcium Phos,Dibas-Vitamin D3 (1 source) Start: 01-03-20 take 1 tablet by mouth once daily Calcium Phos,Dibas-Vitamin D3 Active 1 TAB PO Daily January 02, 2021 12:00am carvedilol 6.25 mg oral tablet (6 sources) alpha-Adrenergic Veronica, beta-Adrenergic Veronica Start: 01-03-20 take 6.25 mg by mouth twice daily Carvedilol Active 6.25 MG PO Twice daily January 02, 2021 12:00am Comment on above: Take 6.25 mg by mout h twice daily with meals. cholecalciferol 0.01 mg oral capsule (19 sources) Vitamin D take 1 capsule by mouth once daily cholecalciferol, vitamin D3, 10 mcg (400 unit) cap Take 2,000 Units by mouth once daily. 0 Active take 2 tablets by mouth in the m orning cholecalciferol 1,000 units tablet Take 2 tablets (2,000 Units total) by mouth in the morning. 0 Active Comment on above: Take 2,000 Units by mouth once daily. clopidogrel 75 mg oral tablet (6 sources) P2Y12 Platelet Inhibitor Start: 1 take 75 mg by mouth once daily Clopidogrel Active 75 MG PO Daily January 02, 2021 12:00am Comment on above: Take 75 mg by mouth once daily. furosemide 40 mg oral tablet (5 sources) Loop Diuretic furosemide (LASI X) 40 mg tablet Take 40 mg by mouth as needed. 0 Active Comment on above: Take 40 mg by mouth once daily. gabapentin 300 mg oral capsule (16 sources) Anti-epileptic Agent Start: 4 take 1 capsule by mouth three times daily gabapentin (NEURONTIN) 300 mg capsule Take 1 capsule (300 mg total) by mouth 3 (three) times a day. 0 07/22/2023 Active Start: 06-09-2023 End: 08-27-2023 take 1 capsule by mouth at bedtime, then take 1 capsule by mouth twice daily, then take 1 capsule by mouth three times daily gabapentin (NEURONTIN) 100 mg capsule TAKE 1 CAPSULE BY MOUTH AT BEDTIME FOR 1 DAY, THEN TAKE 1 CAPSULE TWICE DAILY FOR 1 DAY, AND THEN TAKE 1 CAPSULE THREE TIMES DAILY 0 06/09/2023 Active glipiZIDE 10 mg oral tablet (6 sources) Sulfonylurea Start: 01-02-2021 take 10 mg by mouth twice daily Glipizide Active 10 MG PO Twice daily January 02, 2021 12:00am Comment on above: Take 10 mg by mouth twice daily before m eals. insulin glargine 100 unt/ml injectable solution (7 sources) Insulin Analog Start: 01-02-2021 inject 54 [...] 0 Active lisinopril 20 mg oral tablet (20 sources) Angiotensin Converting Enzyme Inhibitor Start: 06-17-2023 take 1.5 tablets by mouth in the morning lisinopriL (PRINIVIL,ZESTR IL) 20 mg tablet Take 1.5 tablets (30 mg total) by mouth in the morning. 135 tablet 3 06/17/2023 Active Start: 01-02-2021 take 40 mg by mouth once daily Lisinopril Active 40 MG PO Daily January 02, 2021 12:00am take 1 tablet by sierra th once daily lisinopril (ZESTRIL) 30 mg tablet Take 30 mg by mouth once daily. 0 Active Comment on above: Take 40 mg by mouth once daily. magnesium oxide 400 mg oral tablet (14 sources) End: 08-27-2023 magnesium oxide (MAG-OX) 400 mg (241.3 mg magnesium) tablet Take 400 mg by mouth. 0 Active metFORMIN hydrochloride 500 mg oral tablet (20 sources) Biguanide Start: 01-02-2021 take 500 mg [...] 500 mg by mouth daily with breakfast. bbjwsdsv-ezro-JS-calc ium &mins (THERAGRAN-M) 9 mg iron-400 mcg tablet (2 sources) ozephapq-bkhe-CW -gerry cium &mins (THERAGRAN-M) 9 mg iron-400 [...] Active pravastatin sodium 20 mg oral tablet (7 sources) HMG-CoA Reductase Inhibitor Start: take 20 mg by mouth once daily Pravastatin Active 20 MG PO Daily 90 January 02, 2021 12:00am Start: 01-02-2021 End: 01-02-2021 take 10 mg by mouth once daily Pravastatin Discontinue d 10 MG PO Daily January 02, 2021 12:00am January 02, 2021 12:20pm Comment on above: Take 20 mg by mouth once daily. rosuvastatin calcium 20 mg oral tablet (15 sources) HMG-CoA Reductase Inhibitor Start: 3 End: 4 take 1 tablet by mouth once daily in the evening rosuvastatin (CRESTOR) 20 mg tablet Take 20 mg by mouth every evening. 0 07/05/2023 Active ticagrelor 90 mg oral tablet (15 sources) Start: 3 take 1 tablet by mouth every twelve hours BRILINTA 90 mg tablet Take 1 tablet by mouth every 12 hours. 0 07/05/2023 Active Start: 04-08-2023 End: 04-02-2024 take 1 tablet by mouth once ticagrelor (BRILINTA) 90 m g tablet Take 1 tablet (90 mg total) by mouth every 12 (twelve) hours for 360 days. 60 tablet 11 04/08/2023 04/02/2024 Active ubidecarenone 10 mg oral cap deidre (20 sources) Start: 01-02-2021 Coenzyme Q10 A ctive 10 MG PO Once January 02, 2021 12:00am coenzyme Q10 (CO ENZYME Q-10) 100 mg cap capsule Take 100 mg by mouth once daily. 0 Active take 1 capsule by mo uth once in the morning coenzyme Q10 100 mg capsule Take 1 capsu le (100 mg total) by mouth in the morning. 0 Active Comment on above: Take 100 mg by mouth once daily. Zinc (6 sources) Start: 01-02-2021 take 1 tablet by mouth once daily Zinc Active 1 TAB PO Daily January 02, 2021 12:00am take 1 tablet by mouth once slade y Zinc 50 mg tab Take 50 mg by mouth once daily. 0 Active Comment on above: Take 50 mg by mouth once daily. Problems Active Problems Problem Classification Problem Date Documented Da te Episodic/Chronic Acute myocardial infarction (16 sources) Myocardial infarction; Translations: [Non-ST elevation (NSTEMI) myocardial infarction] Onset: 04-05-2023 04-05-2023 Chronic Chronic kidney disease (4 sources) Chronic kidney disease stage 3; Translations: [Stage 3 chronic kidney disease, unspecified whether stage 3a or 3b CKD (HCC)] Onset: 01-04-2023 Chronic Conduction disorders (4 sources) Sinus node dysfunction; Translations: [Other specified heart block] Onset: 08-27-2023 08-27-2023 Chronic Coronary atherosclerosis and other heart disease (16 sources) Coronary arteriosclerosis; Translations: [Atherosclerotic heart disease of [place] coronary artery without angina pectoris] Onset: 11-12-2022 11-12-2022 Chronic Diabetes mellitus with complications (20 sources) Type 2 diabetes mellitus with hyperglycemia; Translations: [Type 2 diabetes mellitus with peripheral angiopathy] Onset: 12-06-2021 Chronic Diseases of white blood cells (11 sources) Elevated white blood cell count, unspecified; Translations: [Lymphocytosis] Onset: 06-06-2022 Chronic Disorders of lipid metabolism (15 sources) Hyperlipidemia, unspecified; Translations: [Mixed hyperlipidemia] Onset: 10-20-2020 11-12-2022 Chronic Essential hypertension (19 sources) Essential (primary) hypertension; Translations: [Hypertensive disorder] Onset: 06-08-2022 11-12-2022 Chronic Leukemias (6 sources) Chronic lymphoid leukemia, disease; 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] Onset: 06-27-2022 Chronic Nutritional deficiencies (1 source) Vitamin D deficiency, unspecified; Translations: [VITAMIN D DEFICIENCY UNSPECIFIED] Onset: 06-08-2022 Chronic Occlusion or stenosis of precerebral arteries (15 sources) Bilateral stenosis of carotid arteries; Translations: [Occlusion and stenosis of bilateral carotid arteries] Onset: 10-21-2019 11-12-2022 Chronic Other aftercare (1 source) residential (current) use of insulin; Translations: [OIL AND GAS RECRUITER CURRENT USE OF INSULIN] Onset: 06-08-2022 Episodic Other aftercare (1 source) Other alf (current) drug therapy; Translations: [OTH OIL AND GAS RECRUITER CURRENT DRUG THERAPY] Onset: 06-08-2022 Episodic Other circulatory disease (14 sources) History of angioplasty; Translations: [Peripheral vascular angioplasty status with implants and grafts] Onset: 08-09-2019 11-12-2022 Chronic Other nutritional; endocrine; and metabolic disorders (1 source) H/O: raised blood lipids; Translations: [Personal history of other endocrine, nutritional and metabolic disease] 08-26-2023 Episodic Other screening for suspected conditions (not [...] specified cardiac dysrhythmias] Onset: 11-12-2022 11-12-2022 Episodic Coronary atherosclerosis and other heart disease (1 source) Presence of coronary angioplasty implant and graft; Translations: [Presence of coronary angioplasty implant and graft] Onset: 07-17-2023 Episodic Mood disorders (14 sources) Mood disorders Onset: 04-05-2023 04-05-2023 Other nutritional; endocrine; and metabolic disorders (1 source) Personal history of other endocrine, nutritional and metabolic disease; Translations: [Personal history of other endocrine, nutritional and metabolic disease] Onset: 08-27-2023 Episodic Results Test Name Value Interpretation Reference Range Facility CBC W Auto Differential pane l (Bld)on 01-16-2024 Basophils (Bld) [#/Vol] 0.17 10*3/uL High <0.11 [facility] Comment on above: Order Comment: Speci men Type: BLOOD SPECIMEN Ordering Facility: [facility] Address: [address] [place] [address] Performed By: #### 5 7021-8 #### [facility] CLIA [id number] [address] [place] [address] LAB CLIA [id number] [address] [place] [address] [place] Basophils/100 WBC (Bld) 1.0 % Normal [facility] Comment on above: Order Comment: Speci men Type: BLOOD SPECIMEN Ordering Facility: [facility] Address: [address] [place], [place] [address] Performed By: #### 5 7021-8 #### [facility] CLIA [id number] [address] [place] [address] LAB CLIA [id number] [address] [place] [address] [place] Differential cell count method Nom (Bld) Manual Normal [facility] Comment on above: Order Comment: Speci men Type: BLOOD SPECIMEN Ordering Facility: [facility] Address: [address] [place] [address] Performed By: #### 5 7021-8 #### [facility] CLIA [id number] [address] [place] [address] LAB CLIA [id number] [address] [place] [address] [place] Eosinophils (Bld) [#/Vol] 0.17 10*3/uL Normal <0.46 [facility] Comment on above: Order Comment: Speci men Type: BLOOD SPECIMEN Ordering Facility: [facility] Address: [address] [place] [address] Performed By: #### 5 7021-8 #### [facility] CLIA [id number] [address] [place] [address] LAB CLIA [id number] [address] [place] [address] [place] Eosinophils/100 WBC (Bld) 1.0 % Normal [facility] Comment on above: Order Comment: Speci men Type: BLOOD SPECIMEN Ordering Facility: [facility] Address: [address] [place] [address] Performed By: #### 5 7021-8 #### [facility] CLIA [id number] [address] [place] [address] LAB CLIA [id number] [address] [place] [address] [place] Erythrocyte distribution width (RBC) [Ratio] 13.4 % Normal 11.5-15.0 [facility] Comment on above: Order Comment: Speci men Type: BLOOD SPECIMEN Ordering Facility: [facility] Address: [address] [place] [address] Performed By: #### 5 7021-8 #### [facility] CLIA [id number] [address] [place], [place] [id number] [facility] [place] [facility] CLIA [id number] [address] [place] [address] [place] Hematocrit (Bld) [Volume fraction] 30.8 % Low 39.0-51.0 [facility] Comment on above: Order Comment: Speci men Type: BLOOD SPECIMEN Ordering Facility: [facility] Address: [address] [place] [address] Performed By: #### 5 7021-8 #### [facility] CLIA [id number] [address] [place], [place] [id number] [facility] [place] [facility] CLIA [id number] [address] [place] [address] [place] Hemoglobin (Bld) [Mass/Vol] 10.6 g/dL Low 13.0-17.0 [facility] Comment on above: Order Comment: Speci men Type: BLOOD SPECIMEN Ordering Facility: [facility] Address: [address] [place] [address] Performed By: #### 5 7021-8 #### [facility] CLIA [id number] [address] [place], [place] [address] [facility] [place] [facility] CLIA [id number] [address] [place] [address] [place] Lymphocytes (Bld) [#/Vol] 10.02 10*3/uL High 1.00-4.00 [facility] Comment on above: Order Comment: Speci men Type: BLOOD SPECIMEN Ordering Facility: [facility] Address: [address] [place] [address] Performed By: #### 5 7021-8 #### [facility] CLIA [id number] [address] [place] [address] LAB CLIA [id number] [address] [place] [address] [place] Lymphocytes/100 WBC (Bld) 59.0 % Normal [facility] Comment on above: Order Comment: Speci men Type: BLOOD SPECIMEN Ordering Facility: [facility] Address: [address] [place] [address] Performed By: #### 5 7021-8 #### [facility] CLIA [id number] [address] [place] [address] LAB CLIA [id number] [address] [place] [address] [place] MCH (RBC) [Entitic mass] 31.4 pg Normal 26.0-34.0 [facility] Comment on above: Order Comment: Speci men Type: BLOOD SPECIMEN Ordering Facility: [facility] Address: [address] [place] [address] Performed By: #### 5 7021-8 #### [facility] CLIA [id number] [address] [place] [address] LAB CLIA [id number] [address] [place] [address] [place] MCHC (RBC) [Mass/Vol] 34.4 g/dL Normal 30.5-36.0 [facility] Comment on above: Order Comment: Speci men Type: BLOOD SPECIMEN Ordering Facility: [facility] Address: [address] [place] [address] Performed By: #### 5 7021-8 #### [facility] CLIA [id number] [address] [place] [address] LAB CLIA [id number] [address] [place] [address] [place] MCV (RBC) [Entitic vol] 91.1 fL Normal 80.0-100.0 [facility] Comment on above: Order Comment: Speci men Type: BLOOD SPECIMEN Ordering Facility: [facility] Address: [address] [place] [address] Performed By: #### 5 7021-8 #### [facility] CLIA [id number] [address] [place] [address] LAB CLIA [id number] [address] [place] [address] [place] Monocytes (Bld) [#/Vol] 0.51 10*3/uL Normal <0.87 [facility] Comment on above: Order Comment: Speci men Type: BLOOD SPECIMEN Ordering Facility: [facility] Address: [address] [place] [address] Performed By: #### 5 7021-8 #### [facility] CLIA [id number] [address] [place] [address] LAB CLIA [id number] [address] [place] [address] [place] Monocytes/100 WBC (Bld) 3.0 % Normal [facility] Comment on above: Order Comment: Speci men Type: BLOOD SPECIMEN Ordering Facility: [facility] Address: [address] [place] [address] Performed By: #### 5 7021-8 #### [facility] CLIA [id number] [address] [place] [address] LAB CLIA [id number] [address] [place] [address] [place] Neutrophils (Bld) [#/Vol] 6.11 10*3/uL Normal 1.45-7.50 [facility] Comment on above: Order Comment: Speci men Type: BLOOD SPECIMEN Ordering Facility: [facility] Address: [address] [place] [address] Performed By: #### 5 7021-8 #### [facility] CLIA [id number] [address] [place] [address] LAB CLIA [id number] [address] [place] [address] [place] Neutrophils/100 WBC (Bld) 36.0 % Normal [facility] Comment on above: Order Comment: Speci men Type: BLOOD SPECIMEN Ordering Facility: [facility] Address: [address] [place] [address] Performed By: #### 5 7021-8 #### [facility] CLIA [id number] [address] [place] [address] LAB CLIA [id number] [address] [place] [address] [place] Nucleated RBC (Bld) [#/Vol] 10*3/uL Normal <0.01 [facility] Comment on above: Order Comment: Speci men Type: BLOOD SPECIMEN Ordering Facility: [facility] Address: [address] [place] [address] Performed By: #### 5 7021-8 #### [facility] CLIA [id number] [address] [place] [address] LAB CLIA [id number] [address] [place] [address] [place] Nucleated RBC/100 WBC (Bld) [Ratio] 0.0 /100 WBC Normal [facility] Comment on above: Order Comment: Speci men Type: BLOOD SPECIMEN Ordering Facility: [facility] Address: [address] [place] [address] Performed By: #### 5 7021-8 #### [facility] CLIA [id number] [address] [place] [address] LAB CLIA [id number] [address] [place] [address] [place] Ovalocytes LM Ql (Bld) Few Normal [facility] Comment on above: Order Comment: Speci men Type: BLOOD SPECIMEN Ordering Facility: [facility] Address: [address] [id number] Performed By: #### 5 7021-8 #### [facility] CLIA [id number] [address] [place] [address] LAB CLIA [id number] [address] [place], [place] [address] [place] Platelet mean volume (Bld) [Entitic vol] 10.2 fL Normal 9.0-12.7 [facility] Comment on above: Order Comment: Speci men Type: BLOOD SPECIMEN Ordering Facility: [facility] Address: [address] [place] [address] Performed By: #### 5 7021-8 #### [facility] CLIA [id number] [address] [place] [address] LAB CLIA [id number] [address] [place] [address] [place] Platelets (Bld) [#/Vol] 172 10*3/uL Normal 150-400 [facility] Comment on above: Order Comment: Speci men Type: BLOOD SPECIMEN Ordering Facility: [facility] Address: [address] [place] [address] Performed By: #### 5 7021-8 #### [facility] CLIA [id number] [address] [place] [address] LAB CLIA [id number] [address] [place], [place] [address] [place] Platelets Estimate (Bld) [#/Vol] Adequate Normal [facility] Comment on above: Order Comment: Speci men Type: BLOOD SPECIMEN Ordering Facility: [facility] Address: [address] [id number] Performed By: #### 5 7021-8 #### [facility] CLIA [id number] [address] [place] [address] LAB CLIA [id number] [address] [place], [place] [address] [place] Polychromasia LM Ql (Bld) Slight Normal [facility] Comment on above: Order Comment: Speci men Type: BLOOD SPECIMEN Ordering Facility: [facility] Address: [address] [place] [address] Performed By: #### 5 7021-8 #### [facility] CLIA [id number] [address] [place] [address] LAB CLIA [id number] [address] [place] [address] [place] RBC (Bld) [#/Vol] 3.38 10*6/uL Low 4.20-6.00 [facility] Comment on above: Order Comment: Speci men Type: BLOOD SPECIMEN Ordering Facility: [facility] Address: [address] [place] [address] Performed By: #### 5 7021-8 #### [facility] CLIA [id number] [address] [place] [address] LAB CLIA [id number] [address] [place] [address] [place] RBC FRAGMENTS Few Abnormal None Seen [facility] Comment on above: Order Comment: Speci men Type: BLOOD SPECIMEN Ordering Facility: [facility] Address: [address] [place] [address] Performed By: #### 5 7021-8 #### DORENE [facility] CLIA [id number] [address] [place] [address] LAB CLIA [id number] [address] [place] [address] [place] RED CELL MORPH Reviewed: see result s of individual morphologies Normal [facility] Comment on above: Order Comment: Speci men Type: BLOOD SPECIMEN Ordering Facility: [facility] Address: [address] [place] [address] Performed By: #### 5 7021-8 #### [facility] CLIA [id number] [address] [place], [place] [address] [facility] [place] [facility] CLIA [id number] [address] [place], [place] [address] [place] [id number] [place] WBC (Bld) [#/Vol] 16.98 10*3/uL High 3.70-11.00 [facility] Comment on above: Order Comment: Speci men Type: BLOOD SPECIMEN Ordering Facility: [facility] Address: [address] [place] [address] Performed By: #### 5 7021-8 #### [facility] CLIA [id number] [address] LAB CLIA [id number] [address] [place] [address] [place] CNOVSPon 01-16-2024 CNOVSP Visit (SP) Office (HEMASA) ILA MOREJON ([id number]) 1945 M Date Time Provider Department 01/16/24 2:45 PM FARAZ BECKHAM HEMASA During your visit today, we recorded the following information about you: Temperature Pulse Respiration Blood pressure 97.2 degrees 45/minute 18/minute 132/35 Weight 73.2 kg Faraz Beckham MD 01/16/2024 2:33 PM Signed RTC in 6 months, with labs same day. Faraz Beckham MD 01/16/2024 6:22 PM Signed NAME: Ila Morejon CLINIC NO.: [id number] DATE OF SERVICE: January 16, 2024 (Lory) Some elements in this clinic note that are critical to medical decision making have been carefully reviewed and included from a prior clinic note dated: July 16, 2023 (Lory) Referring Provider: Cruzito Mcgrath Additional Clinicians involved in Ila Morejon's care: DIAGNOSIS: lymphocytosis ASSESSMENT: 78 year old man with DM HTN, PVD presenting with lymphocytosis and diagnosed with CLL early June 2022. 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 He is asymptomatic with no indications for treatment. Continue follow-up plans as previously arranged. PLAN: RTC in 6 months, with labs same day - HPI: CASE HISTORY: Reverse Chronological Order 04/04/2023 - Admitted to [facility] with NSTEMI Underwent placement [...] CBC 18.8>14.0/39.7<185 Abs. Lymph: 10.1 Updated Visit, January 16, 2024: Ila returns with Sabrina, who reports he has been napping more often. He is recovering from pneumonia. He denies night sweats, fever, chills. He has lost 17 lbs since last visit, gained 8 lbs back on today's check. He admits to a diminished appetite for a period of time, now recovered. Renal function has worsened, although CLL is stable. Updated Visit, July 16, 2023: Ila returns [...] Has been sleeping more, especially since the [place]. Updated Visit, December 27, 2022: 13 year [...] PERFORMANCE STATUS: 0 PHYSICAL EXAMINATION: Vitals: BP 132/35 Pulse 45 Temp (Src) 97.2 (Temporal) Resp 18 Wt 161 lb 6.4 oz (73.2kg) SpO2 98% Body surface area is 1.87 meters squared. Exam limited to gross visualization [...] areas of skin without rash, lesions, wounds (more content not included)... Normal [facility] Comprehensive metabolic 2000 panelon 01-16-2024 Albumin [Mass/Vol] 3.8 g/dL Low 3.9-4.9 [facility] Comment on above: Order Comment: Speci men Type: BLOOD SPECIMENOrdering Facility: [facility] Address: [address] [place] [address] Performed By: #### 2 4323-8, 2531-0 ####[facility] [id number] [place] [address] ALP [Catalytic activity/Vol] 84 U/L Normal 38-113 [facility] Comment on above: Order Comment: Speci men Type: BLOOD SPECIMENOrdering Facility: [facility] Address: [address] [place] [address] Performed By: #### 2 432-8, 2531-0 ####[facility] [id number] [place] [address] ALT [Catalytic activity/Vol] 34 U/L Normal 10-54 [facility] Comment on above: Order Comment: Speci men Type: BLOOD SPECIMENOrdering Facility: [facility] Address: [address] [place] [address] Performed By: #### 2 4323-8, 2-0 ####[facility] [id number] [place] [address] Anion gap [Moles/Vol] 6 mmol/L Low 8-15 [facility] Comment on above: Order Comment: Speci men Type: BLOOD SPECIMENOrdering Facility: [facility] Address: [address] [place] [address] Performed By: #### 2 4323-8, 2531-0 ####[facility] [id number] [place] [address] AST [Catalytic activity/Vol] 26 U/L Normal 14-40 [facility] Comment on above: Order Comment: Speci men Type: BLOOD SPECIMENOrdering Facility: [facility] Address: [address] [place] [address] Performed By: #### 2 4323-8, 2531-0 ####[facility] [id number] [place] [address] Bilirubin [Mass/Vol] 0.4 mg/dL Normal 0.2-1.3 [facility] Comment on above: Order Comment: Speci men Type: BLOOD SPECIMENOrdering Facility: [facility] Address: [address] [place] [address] Performed By: #### 2 43238, 0 ####[facility] [id number] [place] [address] Calcium [Mass/Vol] 9.8 mg/dL Normal 8.5-10.2 [facility] Comment on above: Order Comment: Speci men Type: BLOOD SPECIMENOrdering Facility: [facility] Address: [address] [place] [address] Performed By: #### 2 43238, 2531-0 ####[facility] [id number] [place] [address] Chloride [Moles/Vol] 107 mmol/L Normal 98-107 [facility] Comment on above: Order Comment: Speci men Type: BLOOD SPECIMENOrdering Facility: [facility] Address: [address] [place] [address] Performed By: #### 2 4323-8, 2531-0 ####[facility] [id number] [place] [address] CO2 [Moles/Vol] 24 mmol/L Normal 22-30 [facility] Comment on above: Order Comment: Speci men Type: BLOOD SPECIMENOrdering Facility: [facility] Address: [address] [place], [place] [address] Performed By: #### 2 4323-8, 2531-0 ####[facility] [id number] [place] [address] Creatinine [Mass/Vol] 1.64 mg/dL High 0.73-1.22 [facility] Comment on above: Order Comment: Speci men Type: BLOOD SPECIMENOrdering Facility: [facility] Address: [address] [place] [address] Performed By: #### 2 4323-8, 2531-0 ####[facility] [id number] [place] [address] Creatinine and Glomerular filtration rate.predicted panel (S/P/Bld) 43 mL/min/1.73m??? Low >=60 [facility] Comment on above: Order Comment: Speci men Type: BLOOD SPECIMENOrdering Facility: [facility] Address: [address] [place] [address] Result Comment: Silvana mated Glomerular Filtration Rate [...] actual GFR. Performed By: #### 2 4323-8, 2531-0 ####[facility] [id number] [place] [address] Glucose [Mass/Vol] 180 mg/dL High 74-99 [facility] Comment on above: Order Comment: Speci men Type: BLOOD SPECIMENOrdering Facility: [facility] Address: [address] [place], [place] [address] Result Comment: The [place] [employer] (ADA) provides guidance for cutoff [...] Standards of Medical Care in Diabetes 2016, [place] [employer]. Diabetes Care. 2016.39(Suppl 1). Performed By: #### 2 43238, 0 ####[facility] [id number] [place] [address] Potassium [Moles/Vol] 5.2 mmol/L High 3.7-5.1 [facility] Comment on above: Order Comment: Speci men Type: BLOOD SPECIMENOrdering Facility: [facility] Address: [address] [place] [address] Performed By: #### 2 43209-25, 0 ####[facility] [id number] [place] [address] Protein [Mass/Vol] 6.3 g/dL Normal 6.3-8.0 [facility] Comment on above: Order Comment: Speci men Type: BLOOD SPECIMENOrdering Facility: [facility] Address: [address] [place] [address] Performed By: #### 2 43209-25, 0 ####[facility] [id number] [place] [address] Sodium [Moles/Vol] 137 mmol/L Normal 136-144 [facility] Comment on above: Order Comment: Speci men Type: BLOOD SPECIMENOrdering Facility: [facility] Address: [address] [place] [address] Performed By: #### 2 4328, 2531-0 ####[facility] [id number] [place] [address] Urea nitrogen [Mass/Vol] 29 mg/dL High 9-24 [facility] Comment on above: Order Comment: Speci men Type: BLOOD SPECIMENOrdering Facility: [facility] Address: [address] [place] [address] Performed By: #### 2 4323-8, 2532-0 ####[facility]CLIA [id number] [place] [address] Ferritin SerPl-mCncon 2023 Ferritin [Mass/Vol] 72.6 ng/mL Normal 30.3-565.7 [facility] Comment on above: Order Comment: Speci men Type: BLOOD SPECIMEN Ordering Facility: [facility] Address: [address] [place] [address] Performed By: #### 5 0190-8, 9, 4, 8 #### [facility] [place] [facility] CLIA [id number] [address] [place] [address] [place] Folate SerPl-mCncon 01-16-20 Folate [Mass/Vol] 18.7 ng/mL Normal >4.7 [facility] Comment on above: Order Comment: Speci men Type: BLOOD SPECIMEN Ordering Facility: [facility] Address: [address] [place] [address] Performed By: #### 5 0190-8, 9, 4, 8 #### [facility] [place] [facility] CLIA [id number] [address] [place], [place] [address] [place] Iron and Iron binding capaci ty panelon 01-16-2024 Iron [Mass/Vol] 185 ug/dL Normal 41-186 [facility] Comment on above: Order Comment: Speci men Type: BLOOD SPECIMEN Ordering Facility: [facility] Address: [address] [place] [address] Performed By: #### 5 0190-8, 9, 2275-10, 2284-02 #### [facility] [place] [facility] CLIA [id number] [address] [place] [address] [place] Iron binding capacity [Mass/Vol] 363 ug/dL Normal 232-386 [facility] Comment on above: Order Comment: Speci men Type: BLOOD SPECIMEN Ordering Facility: [facility] Address: [address] [place] [address] Performed By: #### 5 0190-8, 9, 2275-10, 2284-02 #### [facility] CLIA [id number] [address] [place] [address] [place] Iron/TIBC [Molar ratio] 51.0 % Normal 15.0-57.0 [facility] Comment on above: Order Comment: Speci men Type: BLOOD SPECIMEN Ordering Facility: [facility] Address: [address] [place] [address] Performed By: #### 5 0190-8, 9, 2275-10, 2284-02 #### [facility] CLIA [id number] [address] [place] [address] [place] LDH SerPl-cCncon 01-16-2024 LDH [Catalytic activity/Vol] 182 U/L Normal 135-225 [facility] Comment on above: Order Comment: Speci men Type: BLOOD SPECIMENOrdering Facility: [facility] Address: [address] [place] [address] Performed By: #### 2 4323-8, 2532-0 ####[facility] LABIA [id number] [place] [address] Vit B12 SerPl-mCncon 024 Cobalamin (Vitamin B12) [Mass/Vol] 1200 pg/mL Normal 232-1245 [facility] Comment on above: Order Comment: Speci men Type: BLOOD SPECIMEN Ordering Facility: [facility] Address: [address] [place] [address] Performed By: #### 5 0190-8, 2132-9, 2276-4, 2284-8 #### [facility] CLIA [id number] [address] [place] [address] [place] Woody 12-27-2023 L Specimen: [id number] Received: 12/29/23 Status: SOUDoni Req Num: [id number] Spec Type: Impression Subm Dr: Arminda Valverde DO Tissues: PATHPER Procedures: PATHREVIEW Age/ Patient Sex Location Account Attending Physician Ila Morejon 78/M LABELL [id number] Arminda Valverde DO SPEC NUM: [id number] RECD: 12/29/23 STATUS: SOUT REQ NUM: [id number] JERRY: 12/27/[address]: Arminda Valverde DO ENTERED: 12/29/[address]: Collin Bernal SPEC TYPE: Impression DEPT: JAY Garay ENTERED BY: [id number] RECV BY: [id number] ORDERED: PATHREVIEW ORDERED: PATHREVIEW Pathologist Review Abnormal [...] of Specimen: [id number] Received: 12/29/23 Status: RAMONA Castlefil[place] Num: [id number] Spec Type: Impression Subm Dr: Arminda Valverde DO Tissues: PATHPER Procedures: PATHREVIEW Patient: MorejonIla [id number] (Continued) Specimen: [id number] Received: 12/29/23 (Continued) Pathologist Review (Continued) Signed (signature on file) Nicole Askew MD 12/29/23 1731 Specimen: [id number] Received: 12/29/23 Status: RAMONA [place] Num: [id number] Spec Type: Impression Subm Dr: Arminda Valvered DO Tissues: PATHPER Procedures: PATHREVIEW Patient: Ila Morejon Julianna [id number] (Continued) Specimen: [id number] Received: 12/29/23 (Continued) Pathologist Review (Continued) part of the myelosuppression, including hairy cell leukemia, otherwise is not very apparent in this CBC except mild chronic anemia -If the CBC abnormality continues to persist or progress, further hematology consultation, including flow cytometric assessment of the peripheral blood, may also be suggested as appropriate CPT: 20691 CBC No results available. Specimen: [id number] Received: 12/29/23 Status: RAMONA [place] Num: [id number] Spec Type: Impression Subm Dr: Arminda Valverde DO Tissues: PATHPER Procedures: PATHREVIEW Patient: Ila Morejon [id number] (Continued) Signed (signature on file) Nicole Askew MD 12/29/23 9042 Normal [facility] HGB A1C (GLYCO-HGB)on 2023 Glucose [Mass/Vol] 151 mg/dL Normal [facility] HbA1c (Bld) [Mass fraction] 6.9 % High 4.4-5.6 [facility] Comment on above: Result Comment: NOTE ADA Guidelines Result HgbA1c Normal : less than 5.7 % Prediabetes : 5.7 % to 6.4 % Diabetes : > 6.4 % Use with caution in patients with abnormal hemoglobin variants as the half-life of red blood cells and in vivo glycation rates are affected. CBC W Auto Differential pane l (Bld)on 12-27-2023 Basophils (Bld) [#/Vol] 0.14 10*3/uL High <0.11 [facility] Comment on above: Order Comment: Speci men Type: BLOOD SPECIMEN [facility] Facility[facility] Address: [address] [place] [address] Performed By: #### 5 7021-8 #### [facility] CLIA [id number] [address] [place] [address] LAB CLIA [id number] [address] [place] [address] [place] Basophils/100 WBC (Bld) 1.0 % Normal [facility] Comment on above: Order Comment: Speci men Type: BLOOD SPECIMEN Ordering Facility: [facility] Address: [address] [place] [address] Performed By: #### 5 7021-8 #### [facility] CLIA [id number] [address] [place] [address] LAB CLIA [id number] [address] [place] [address] [place] Differential cell count method Nom (Bld) Manual Normal [facility] Comment on above: Order Comment: Speci men Type: BLOOD SPECIMEN Ordering Facility: [facility] Address: [address] [place] [address] Performed By: #### 5 7021-8 #### [facility] CLIA [id number] [address] [place] [address] LAB CLIA [id number] [address] [place] [address] [place] Eosinophils (Bld) [#/Vol] 0.14 10*3/uL Normal <0.46 [facility] Comment on above: Order Comment: Speci men Type: BLOOD SPECIMEN Ordering Facility: [facility] Address: [address] [place] [address] Performed By: #### 5 7021-8 #### [facility] CLIA [id number] [address] LAB CLIA [id number] [address] [place] [address] [place] Eosinophils/100 WBC (Bld) 1.0 % Normal [facility] Comment on above: Order Comment: Speci men Type: BLOOD SPECIMEN Ordering Facility: [facility] Address: [address] [place] [address] Performed By: #### 5 7021-8 #### [facility] CLIA [id number] [address] [place] [address] LAB CLIA [id number] [address] [place] [address] [place] Erythrocyte distribution width (RBC) [Ratio] 13.2 % Normal 11.5-15.0 [facility] Comment on above: Order Comment: Speci men Type: BLOOD SPECIMEN Ordering Facility: [facility] Address: [address] [place] [address] Performed By: #### 5 7021-8 #### [facility] CLIA [id number] [address] [place] [address] LAB CLIA [id number] [address] [place] [address] [place] Hematocrit (Bld) [Volume fraction] 32.0 % Low 39.0-51.0 [facility] Comment on above: Order Comment: Speci men Type: BLOOD SPECIMEN Ordering Facility: [facility] Address: [address] [place] [address] Performed By: #### 5 7021-8 #### [facility] CLIA [id number] [address] [place] [address] LAB CLIA [id number] [address] [place] [address] [place] Hemoglobin (Bld) [Mass/Vol] 10.8 g/dL Low 13.0-17.0 [facility] Comment on above: Order Comment: Speci men Type: BLOOD SPECIMEN Ordering Facility: [facility] Address: [address] [place] [address] Performed By: #### 5 7021-8 #### [facility] CLIA [id number] [address] [place] [address] LAB CLIA [id number] [address] [place] [address] [place] Lymphocytes (Bld) [#/Vol] 7.95 10*3/uL High 1.00-4.00 [facility] Comment on above: Order Comment: Speci men Type: BLOOD SPECIMEN Ordering Facility: [facility] Address: [address] [place] [address] Performed By: #### 5 7021-8 #### [facility] CLIA [id number] [address] [place] [address] LAB CLIA [id number] [address] [place] [address] [place] Lymphocytes/100 WBC (Bld) 57.0 % Normal [facility] Comment on above: Order Comment: Speci men Type: BLOOD SPECIMEN Ordering Facility: [facility] Address: [address] [place] [address] Performed By: #### 5 7021-8 #### [facility] CLIA [id number] [address] [place] [address] LAB CLIA [id number] [address] [place] [address] [place] MCH (RBC) [Entitic mass] 30.9 pg Normal 26.0-34.0 [facility] Comment on above: Order Comment: Speci men Type: BLOOD SPECIMEN Ordering Facility: [facility] Address: [address] [place] [address] Performed By: #### 5 7021-8 #### [facility] CLIA [id number] [address] [place] [address] LAB CLIA [id number] [address] [place] [address] [place] MCHC (RBC) [Mass/Vol] 33.8 g/dL Normal 30.5-36.0 [facility] Comment on above: Order Comment: Speci men Type: BLOOD SPECIMEN Ordering Facility: [facility] Address: [address] [place] [address] Performed By: #### 5 7021-8 #### [facility] CLIA [id number] [address] [place] [address] LAB CLIA [id number] [address] [place] [address] [place] MCV (RBC) [Entitic vol] 91.7 fL Normal 80.0-100.0 [facility] Comment on above: Order Comment: Speci men Type: BLOOD SPECIMEN Ordering Facility: [facility] Address: [address] [place] [address] Performed By: #### 5 7021-8 #### [facility] CLIA [id number] [address] [place] [address] LAB CLIA [id number] [address] [place] [address] [place] Monocytes (Bld) [#/Vol] 0.84 10*3/uL Normal <0.87 [facility] Comment on above: Order Comment: Speci men Type: BLOOD SPECIMEN Ordering Facility: [facility] Address: [address] [place] [address] Performed By: #### 5 7021-8 #### [facility] CLIA [id number] [address] [place] [address] LAB CLIA [id number] [address] [place] [address] [place] Monocytes/100 WBC (Bld) 6.0 % Normal [facility] Comment on above: Order Comment: Speci men Type: BLOOD SPECIMEN Ordering Facility: [facility] Address: [address] [place] [address] Performed By: #### 5 7021-8 #### [facility] CLIA [id number] [address] [place] [address] LAB CLIA [id number] [address] [place] [address] [place] Neutrophils (Bld) [#/Vol] 4.88 10*3/uL Normal 1.45-7.50 [facility] Comment on above: Order Comment: Speci men Type: BLOOD SPECIMEN Ordering Facility: [facility] Address: [address] [place] [address] Performed By: #### 5 7021-8 #### [facility] CLIA [id number] [address] [place] [address] LAB CLIA [id number] [address] [place] [address] [place] Neutrophils/100 WBC (Bld) 35.0 % Normal [facility] Comment on above: Order Comment: Speci men Type: BLOOD SPECIMEN Ordering Facility: [facility] Address: [address] [place] [address] Performed By: #### 5 7021-8 #### [facility] CLIA [id number] [address] [place] [address] LAB CLIA [id number] [address] [place] [address] [place] Nucleated RBC (Bld) [#/Vol] 10*3/uL Normal <0.01 [facility] Comment on above: Order Comment: Speci men Type: BLOOD SPECIMEN Ordering Facility: [facility] Address: [address] [place] [address] Performed By: #### 5 7021-8 #### [facility] CLIA [id number] [address] [place] [address] LAB CLIA [id number] [address] [place] [address] [place] Nucleated RBC/100 WBC (Bld) [Ratio] 0.0 /100 WBC Normal [facility] Comment on above: Order Comment: Speci men Type: BLOOD SPECIMEN [facility] Address: [address] [place] [address] Performed By: #### 5 7021-8 #### [facility] CLIA [id number] [address] [place] [address] LAB CLIA [id number] [address] [place] [address] [place] Ovalocytes LM Ql (Bld) Few Normal [facility] Comment on above: Order Comment: Speci men Type: BLOOD SPECIMEN Ordering Facility: [facility] Address: [address] [place] [address] Performed By: #### 5 7021-8 #### [facility] CLIA [id number] [address] [place] [address] LAB CLIA [id number] [address] [place] [address] [place] Platelet mean volume (Bld) [Entitic vol] 10.7 fL Normal 9.0-12.7 [facility] Comment on above: Order Comment: Speci men Type: BLOOD SPECIMEN Ordering Facility: [facility] Address: [address] [place] [address] Performed By: #### 5 7021-8 #### [facility] CLIA [id number] [address] [place] [address] LAB CLIA [id number] [address] [place] [address] [place] Platelets (Bld) [#/Vol] 152 10*3/uL Normal 150-400 [facility] Comment on above: Order Comment: Speci men Type: BLOOD SPECIMEN Ordering Facility: [facility] Address: [address] [place] [address] Performed By: #### 5 7021-8 #### [facility] CLIA [id number] [address] LAB CLIA [id number] [address] [place] [address] [place] Platelets Estimate (Bld) [#/Vol] Adequate Normal [facility] Comment on above: Order Comment: Speci men Type: BLOOD SPECIMEN Ordering Facility: [facility] Address: [address] [place] [address] Performed By: #### 5 7021-8 #### [facility] CLIA [id number] [address] [place] [address] LAB CLIA [id number] [address] [place] [address] [place] RBC (Bld) [#/Vol] 3.49 10*6/uL Low 4.20-6.00 [facility] Comment on above: Order Comment: Speci men Type: BLOOD SPECIMEN Ordering Facility: [facility] Address: [address] [place] [address] Performed By: #### 5 7021-8 #### [facility] CLIA [id number] [address] [place] [address] LAB CLIA [id number] [address] [place] [address] [place] RED CELL MORPH Reviewed: see result s of individual morphologies Normal [facility] Comment on above: Order Comment: Speci men Type: BLOOD SPECIMEN Ordering Facility: [facility] Address: [address] [place] [address] Performed By: #### 5 7021-8 #### [facility] CLIA [id number] [address] [place] [address] LAB CLIA [id number] [address] [place] [address] [place] WBC (Bld) [#/Vol] 13.94 10*3/uL High 3.70-11.00 [facility] Comment on above: Order Comment: Speci men Type: BLOOD SPECIMEN Ordering Facility: [facility] Address: [address] [place] [address] Performed By: #### 5 7021-8 #### [facility] CLIA [id number] [address] [place] [address] [facility] CLIA [id number] [address] [facility] DESK [id number] [place] [address] [place] CNOVSPon 07-16-2023 CNOVSP Visit (SP) Office (HEMASA) MOREJONILA ([id number]) 1945 M Date Time Provider Department 07/16/23 2:30 PM FARAZ BECKHAM HEMASA During your visit today, we recorded the following information about you: Temperature Pulse Respiration Blood pressure 97.7 degrees 42/minute 16/minute 169/38 Weight Height 77.3 kg 1.715 m Faraz Beckham MD 07/16/2023 7:35 PM Signed NAME: Ila Morejon CLINIC NO.: [id number] DATE OF SERVICE: July 16, 2023 (Lory) [...] Reverse Chronological Order 04/04/2023 - Admitted to [facility] with NSTEMI Underwent placement [...] Has been sleeping more, especially since the [place]. Updated Visit, December 27, 2022: 13 year [...] gabapentin (NEUR (more content not included)... Normal [facility] Comprehensive metabolic 2000 panelon 07-16-2023 Albumin [Mass/Vol] 3.8 g/dL Low 3.9-4.9 [facility] Comment on above: Order Comment: Speci men Type: BLOOD SPECIMENOrdering Facility: [facility] Address: [address] [place] [address] Performed By: #### 3 084-1, 2531-0, ####[facility] LABCLIA [id number] [place] [address] ALP [Catalytic activity/Vol] 88 U/L Normal 38-113 [facility] Comment on above: Order Comment: Speci men Type: BLOOD SPECIMENOrdering Facility: [facility] Address: [address] [place] [address] Performed By: #### 3 084-1, 2531-0, ####[facility] [id number] [place] [address] ALT [Catalytic activity/Vol] 23 U/L Normal 10-54 [facility] Comment on above: Order Comment: Speci men Type: BLOOD SPECIMENOrdering Facility: [facility] Address: [address] [place] [address] Performed By: #### 3 084-1, 2531-0, 45984-4 ####[facility] [id number] [place] [address] Anion gap [Moles/Vol] 7 mmol/L Low 9-18 [facility] Comment on above: Order Comment: Speci men Type: BLOOD SPECIMENOrdering Facility: [facility] Address: [address] [place] [address] Performed By: #### 3 084-1, 2531-0, ####[facility]IA [id number] [place] [address] AST [Catalytic activity/Vol] 23 U/L Normal 14-40 [facility] Comment on above: Order Comment: Speci men Type: BLOOD SPECIMENOrdering Facility: [facility] Address: [address] [place] [address] Performed By: #### 3 084-1, 0, ####[facility]IA [id number] [place] [address] Bilirubin [Mass/Vol] 0.3 mg/dL Normal 0.2-1.3 [facility] Comment on above: Order Comment: Speci men Type: BLOOD SPECIMENOrdering Facility: [facility] Address: [address] [place] [address] Performed By: #### 3 084-1, , ####[facility]CLIA [id number] [place] [address] Calcium [Mass/Vol] 9.3 mg/dL Normal 8.5-10.2 [facility] Comment on above: Order Comment: Speci men Type: BLOOD SPECIMENOrdering Facility: [facility] Address: [address] [place] [address] Performed By: #### 3 084-1, 0, ####[facility] [id number] [place] [address] Chloride [Moles/Vol] 107 mmol/L High 97-105 [facility] Comment on above: Order Comment: Speci men Type: BLOOD SPECIMENOrdering Facility: [facility] Address: [address] [place] [address] Performed By: #### 3 084-1, 0, ####[facility] LAB[facility] [id number] [place] [address] CO2 [Moles/Vol] 23 mmol/L Normal 22-30 [facility] Comment on above: Order Comment: Speci men Type: BLOOD SPECIMENOrdering Facility: [facility] Address: [place] [address] Performed By: #### 3 084-1, 2532-0, ####[facility] LAB[facility] [id number] [place] [address] Creatinine [Mass/Vol] 1.59 mg/dL High 0.73-1.22 [facility] Comment on above: Order Comment: Speci men Type: BLOOD SPECIMENOrdering Facility: [facility] Address: [place] [address] Performed By: #### 3 084-1, 2531-0, ####[facility] LAB[facility]IA [id number] [place] [address] Creatinine and Glomerular filtration rate.predicted panel (S/P/Bld) 45 mL/min/1.73m??? Low >=60 [facility] Comment on above: Order Comment: Speci men Type: BLOOD SPECIMENOrdering Facility: [facility] Address: [address] [place] [address] Result Comment: Silvana mated Glomerular Filtration Rate [...] accurately reflect actual GFR. Performed By: #### 3 084-1, 2531-0, ####[facility] [id number] [place] [address] Glucose [Mass/Vol] 200 mg/dL High 74-99 [facility] Comment on above: Order Comment: Speci men Type: BLOOD SPECIMENOrdering Facility: [facility] Address: [address], [place] [address] Result Comment: The [place] [employer] (ADA) provides guidance for cutoff [...] Standards of Medical Care in Diabetes 2016, [place] [employer]. Diabetes Care. 2016.39(Suppl 1). Performed By: #### 3 084-1, 2531-0, ####[facility] [id number] [place] [address] Potassium [Moles/Vol] 5.3 mmol/L High 3.7-5.1 [facility] Comment on above: Order Comment: Speci men Type: BLOOD SPECIMENOrdering Facility: [facility] Address: [address] [place] [address] Performed By: #### 3 084-1, 0, ####[facility] [id number] [place] [address] Protein [Mass/Vol] 6.1 g/dL Low 6.3-8.0 [facility] Comment on above: Order Comment: Speci men Type: BLOOD SPECIMENOrdering Facility: [facility] Address: [address] [place] [address] Performed By: #### 3 084-1, 0, ####[facility] [id number] [place] [address] Sodium [Moles/Vol] 137 mmol/L Normal 136-144 [facility] Comment on above: Order Comment: Speci men Type: BLOOD SPECIMENOrdering Facility: [facility] Address: [address] [place] [address] Performed By: #### 3 084-1, 253-0, 92140-3 ####[facility] [id number] [place] [address] Urea nitrogen [Mass/Vol] 36 mg/dL High 9-24 [facility] Comment on above: Order Comment: Speci men Type: BLOOD SPECIMENOrdering Facility: [facility] Address: [address] [place] [address] Performed By: #### 3 084-1, 2531-0, ####[facility] LABCL[facility] [id number] [place] [address] LDH SerPl-cCncon 07-16-2023 LDH [Catalytic activity/Vol] 206 U/L Normal 135-225 [facility] Comment on above: Order Comment: Speci men Type: BLOOD SPECIMENOrdering Facility: [facility] Address: [address] [place] [address] Performed By: #### 3 084-1, 2530, ####[facility] LABCLIA [id number] [place] [address] Urate SerPl-mCncon 3 Urate [Mass/Vol] 5.5 mg/dL Normal 4.0-8.1 [facility] Comment on above: Order Comment: Speci men Type: BLOOD SPECIMENOrdering Facility: [facility] Address: [address] [place] [address] Performed By: #### 3 084-1, 2530, ####[facility] LAB[facility]IA [id number] [place] [address] B2 MICROGLOBULIN Bon 022 [id number] [Mass/Vol] 4.5 ug/mL High <3.1 mg/L [facility] CBC W Auto Differential pane l (Bld)on 06-22-2022 Basophils (Bld) [#/Vol] 0.00 10*3/uL <0.11 k/uL [facility] Basophils/100 WBC (Bld) 0.0 % [facility] Differential cell count method Nom (Bld) Manual [facility] Eosinophils (Bld) [#/Vol] 0.33 10*3/uL <0.46 k/uL [facility] Eosinophils/100 WBC (Bld) 2.0 % [facility] Erythrocyte distribution width (RBC) [Ratio] 12.5 % 11.5 - 15.0 % [facility] Hematocrit (Bld) [Volume fraction] 43.5 % 39.0 - 51.0 % [facility] Hemoglobin (Bld) [Mass/Vol] 15.1 g/dL 13.0 - 17.0 g/dL [facility] Lymphocytes (Bld) [#/Vol] 9.25 10*3/uL High 1.00 - 4.00 k/uL [facility] Lymphocytes/100 WBC (Bld) 56.0 % [facility] MCH (RBC) [Entitic mass] 30.8 pg 26.0 - 34.0 pg [facility] MCHC (RBC) [Mass/Vol] 34.7 g/dL 30.5 - 36.0 g/dL [facility] MCV (RBC) [Entitic vol] 88.8 fL 80.0 - 100.0 fL [facility] Monocytes (Bld) [#/Vol] 1.16 10*3/uL High <0.87 k/uL [facility] Monocytes/100 WBC (Bld) 7.0 % [facility] Neutrophils (Bld) [#/Vol] 5.78 10*3/uL 1.45 - 7.50 k/uL [facility] Neutrophils/100 WBC (Bld) 35.0 % [facility] Nucleated RBC (Bld) [#/Vol] <0.01 k/uL [facility] Nucleated RBC/100 WBC (Bld) [Ratio] 0.0 /100 WBC [facility] Ovalocytes LM Ql (Bld) Few [facility] Platelet mean volume (Bld) [Entitic vol] 10.4 fL 9.0 - 12.7 fL [facility] Platelets (Bld) [#/Vol] 204 10*3/uL 150 - 400 k/uL [facility] Platelets Estimate (Bld) [#/Vol] Adequate [facility] RBC (Bld) [#/Vol] 4.90 10*6/uL 4.20 - 6.0 0 m/uL [facility] Red Cell Morph Reviewed: see result s of individual morphologies [facility] WBC (Bld) [#/Vol] 16.52 10*3/uL High 3.70 - 11 .00 k/uL [facility] Direct antiglobulin test.avelina y specific reagent Ql (RBC)on 06-22-2022 DAGT, Polyspecific AHG Negative [facility] Comprehensive metabolic 2000 panelon 06-21-2022 Albumin [Mass/Vol] 3.7 g/dL Low 3.9 - 4.9 g/dL [facility] ALP [Catalytic activity/Vol] 117 U/L High 38 - 113 U/L [facility] ALT [Catalytic activity/Vol] 9 U/L Low 10 - 54 U/L [facility] Anion gap [Moles/Vol] 3 mmol/L Low 9 - 18 mmol/L [facility] AST [Catalytic activity/Vol] 13 U/L Low 14 - 40 U/L [facility] Bilirubin [Mass/Vol] 0.4 mg/dL 0.2 - 1 .3 mg/dL [facility] Calcium [Mass/Vol] 9.4 mg/dL 8.5 - 10. 2 mg/dL [facility] Chloride [Moles/Vol] 108 mmol/L High 97 - 10 5 mmol/L [facility] CO2 [Moles/Vol] 27 mmol/L 22 - 30 mmol/L [facility] Creatinine [Mass/Vol] 1.19 mg/dL 0.73 - 1.22 mg/dL [facility] Estimated Glomerular Filtration Rate 64 mL/min/1.73m >=60 mL/min/1.73m [facility] Glucose [Mass/Vol] 180 mg/dL High 74 - 99 mg/dL [facility] Potassium [Moles/Vol] 5.4 mmol/L High 3.7 - 5.1 mmol/L [facility] Protein [Mass/Vol] 6.2 g/dL Low 6.3 - 8.0 g/dL [facility] Sodium [Moles/Vol] 138 mmol/L 136 - 144 mmol/L [facility] Urea nitrogen [Mass/Vol] 31 mg/dL High 9 - 24 mg/dL [facility] LD LACTATE DEHYDROon 022 LDH [Catalytic activity/Vol] 179 U/L 135 - 225 U/L [facility] URIC ACID BLOODon 06-21-2022 Urate [Mass/Vol] 4.5 mg/dL 4.0 - 8.1 mg/dL [facility] CBC AUTO DIFFon 06-06-2022 BASO # 0.1 103/ul Normal 0.0-0.1 [facility] Comment on above: Performed By: #### C BC #### [facility] [address] [place] [address] Dr. Lara Askew Basophils/100 WBC (Bld) 0.5 % Normal 0.2-2.0 [facility] Comment on above: Performed By: #### C BC #### [facility] [address] [place] [address] Dr. Lara Askew EO # 0.3 103/ul Normal 0.0-0.7 [facility] Comment on above: Performed By: #### C BC #### [facility] [address] [place] [address] Dr. Lara Askew Eosinophils/100 WBC (Bld) 1.6 % Normal 0.9-7.0 [facility] Comment on above: Performed By: #### C BC #### [facility] [address] [place] [address] Dr. Lara Askew Erythrocyte distribution width (RBC) [Ratio] 12.5 % Normal 11.0-15.0 [facility] Comment on above: Performed By: #### C BC #### [facility] [address] [place] [address] Dr. Lara Askew Hematocrit (Bld) [Volume fraction] 39.7 % Critically low 42.0-54.0 [facility] Comment on above: Performed By: #### C BC #### [facility] [address] [place] [address] Dr. Lara Askew Hemoglobin (Bld) [Mass/Vol] 14.0 g/dL Normal 14.0-18.0 [facility] Comment on above: Performed By: #### C BC #### [facility] [address] [place] [address] Dr. Lara Askew IG # 0.07 10e3/ul Critically high 0.00-0.03 [facility] Comment on above: Performed By: #### C BC #### [facility] [address] [place] [address] Dr. Lara Askew IG % 0.4 % Normal 0.0-0.5 [facility] Comment on above: Performed By: #### C BC #### [facility] [address] [place] [address] [address] Lara Askew LYMPH # 10.1 103/ul Critically high 1.2-3.8 [facility] Comment on above: Performed By: #### C BC #### [facility] [address] [place] [address] Dr. Lara Askew Lymphocytes/100 WBC (Bld) 53.6 % Normal 20.5-60.0 [facility] Comment on above: Performed By: #### C BC #### [facility] [address] [place] [address] Dr. Lara Askew MANUAL DIFF REQ NO Normal [facility] Comment on above: Performed By: #### C BC #### [facility] [address] [place] [address] Dr. Lara Askew MCH (RBC) [Entitic mass] 31.5 pg Normal 25.9-34.0 [facility] Comment on above: Performed By: #### C BC #### [facility] [address] [place] [address] Dr. Lara Askew MCHC (RBC) [Mass/Vol] 35.3 g/dL Critically high 29.9-35.2 [facility] Comment on above: Performed By: #### C BC #### [facility] [address] [place] [address] Dr. Lara Askew MCV (RBC) [Entitic vol] 89.2 fL Normal 80.0-94.0 [facility] Comment on above: Performed By: #### C BC #### [facility] [address] [place] [address] Dr. Lara Askew MONO # 0.7 103/ul Normal 0.3-0.8 [facility] Comment on above: Performed By: #### C BC #### [facility] [address] [place] [address] [address] Lara Askew Monocytes/100 WBC (Bld) 3.7 % Normal 1.7-12.0 [facility] Comment on above: Performed By: #### C BC #### [facility] [address] [place] [address] [address] Lara Askew NEUT # 7.6 103/ul Critically high 1.4-6.5 [facility] Comment on above: Performed By: #### C BC #### [facility] [address] [place] [address] [address] Lara Askew Neutrophils/100 WBC (Bld) 40.2 % Critically low 43.0-75.0 [facility] Comment on above: Performed By: #### C BC #### [facility] [address] [place] [address] Dr. Lara Askew Platelet mean volume (Bld) [Entitic vol] 11.0 fL Normal 9.5-13.5 [facility] Comment on above: Performed By: #### C BC #### [facility] [address] [place] [address] Dr. Lara Askew PLT 185 103/ul Normal 150-450 [facility] Comment on above: Performed By: #### C BC #### [facility] [address] [place] [address] [address] Lara Askew RBC 4.45 106/ul Critically low 4.70-6.10 [facility] Comment on above: Performed By: #### C BC #### [facility] [address] [place] [address] [address] Lara Askew WBC 18.8 103/ul Critically high 4.0-11.0 [facility] Comment on above: Performed By: #### C BC #### [facility] [address] [place] [address] Dr. Lara Askew GLYCOHEMOGLOBIN A1Con 2021 ADA RECOMMENDATION SEE BELOW Normal [facility] Comment on above: Result Comment: ADA RECOMMENDED LIMIT 4.0 - 6.0 ADA THERAPEUTIC TARGET < 7.0 ACTION SUGGESTED > 7.0 Performed By: #### A 1C #### [facility] [address] [place] [address] Dr. Lara Askew Glucose [Mass/Vol] 148 mg/dL Normal [facility] Comment on above: Performed By: #### A 1C #### [facility] [address] [place] [address] [address] Lara Askew HbA1c (Bld) [Mass fraction] 6.8 % Critically high 4.5-6.2 [facility] Comment on above: Performed By: #### A 1C #### [facility] [address] [place] [address] Dr. Lara Askew LIPID PROFILEon 06-06-2022 CHOL-HDL RATIO NORM SEE BELOW Normal [facility] Comment on above: Result Comment: 3.3 - 4.4 LOW RISK 4.4 - 7.1 AVERAGE RISK 7.1 - 11.0 MODERATE RISK >11.0 HIGH RISK Performed By: #### L IVER, LIPID, BMP #### [facility] [address] [place] [address] Dr. Lara Askew Cholesterol [Mass/Vol] 113 mg/dL Normal <=200 [facility] Comment on above: Performed By: #### L IVER, LIPID, BMP #### [facility] [address] [place] [address] Dr. Lara Askew Cholesterol in HDL [Mass/Vol] 51 mg/dL Normal 40-60 [facility] Comment on above: Performed By: #### L IVER, LIPID, BMP #### [facility] [address] [place] [address] Dr. Lara Askew Cholesterol in LDL [Mass/Vol] 47.6 mg/dL Normal [facility] Comment on above: Performed By: #### L IVER, LIPID, BMP #### [facility] [address] [place] [address] Dr. Lara Askew Cholesterol.total/Ch olesterol in HDL [Mass ratio] 2.2 {ratio} Normal [facility] Comment on above: Performed By: #### L IVER, LIPID, BMP #### [facility] [address] [place] [address] [address] Lara Askew HDL NORMAL > or = 60 mg/dl - LO W CARDIOVASCULAR RISK <40 mg/dl - HIGH CARDIOVASCULAR RISK Normal [facility] Comment on above: Performed By: #### L IVER, LIPID, BMP #### [facility] [address] [place] [address] [address] Lara Askew LDL CALC NORMAL SEE BELOW Normal [facility] Comment on above: Result Comment: <100 mg/dl OPTIMAL 100 - 129 mg/dl NEAR OR ABOVE OPTIMAL 130 - 159 mg/dl BORDERLINE HIGH 160 - 189 mg/dl HIGH >190 mg/dl VERY HIGH Performed By: #### L IVER, LIPID, BMP #### [facility] [address] [place] [address] [address] Lara Askew Triglyceride [Mass/Vol] 72 mg/dL Normal <=150 [facility] Comment on above: Performed By: #### L IVER, LIPID, BMP #### [facility] [address] [address] [address] Lara Askew VLDL CALC 14.4 mg/dL Normal [facility] Comment on above: Performed By: #### L IVER, LIPID, BMP #### [facility] [address] [place] [address] [address] Lara Askew LIVER PROFILEon 06-06-2022 Albumin [Mass/Vol] 3.0 g/dL Critically low 3.4-5.0 [facility] Comment on above: Performed By: #### L IVER, LIPID, BMP #### [facility] [address] [place] [address] [address] Lara Askew Albumin/Globulin [Mass ratio] 1.0 {ratio} Normal [facility] Comment on above: Performed By: #### L IVER, LIPID, BMP #### [facility] [address] [place] [address] [address] Lara Askew ALP [Catalytic activity/Vol] 93 U/L Normal 46-116 [facility] Comment on above: Performed By: #### L IVER, LIPID, BMP #### [facility] [address] [place] [address] [address] Lara Askew ALT [Catalytic activity/Vol] 23 U/L Normal 16-63 [facility] Comment on above: Performed By: #### L IVER, LIPID, BMP #### [facility] [address] [place] [address] [address] Lara Askew AST [Catalytic activity/Vol] 21 U/L Normal 15-37 [facility] Comment on above: Performed By: #### L IVER, LIPID, BMP #### [facility] [address] [place] [address] [address] Lara Askew BILI, CONJUGATED 0.1 mg/dL Normal 0.0-0.2 [facility] Comment on above: Performed By: #### L IVER, LIPID, BMP #### [facility] [address] [place] [address] Dr. Lara Askew Bilirubin [Mass/Vol] 0.5 mg/dL Normal 0.2-1.0 [facility] Comment on above: Performed By: #### L IVER, LIPID, BMP #### [facility] [address] [address] [address] Lara Askew Globulin (S) [Mass/Vol] 3.1 g/dL Normal [facility] Comment on above: Performed By: #### L IVER, LIPID, BMP #### [facility] [address] [place] [address] Dr. Lara Askew Protein [Mass/Vol] 6.1 g/dL Critically low 6.4-8.2 [facility] Comment on above: Performed By: #### L IVER, LIPID, BMP #### [facility] [address] [address] [address] Lara Askew MICROALBUMIN, RAND URon 05-21 mALB 24.1 mg/L Normal <=30.0 [facility] Comment on above: Performed By: #### M ALBR #### [facility] [address] [address] [address] Lara Askew PERIPHERAL SMEARon 2 Pathologist Cyto stain Nom (Cvx/Vag) [ID] DR. ROSEMARIE DOE Normal [facility] Comment on above: Result Comment: Revi ew [...] 06-10-22 Performed By: #### P ERSMR #### [facility] [address] [place] [address] Dr. Lara Askew PROF CHEM 8 (BAS METB)on Anion gap [Moles/Vol] 9.4 mmol/L Normal [facility] Comment on above: Performed By: #### L IVER LIPID, BMP #### [facility] [address] [place] [address] Dr. Lara Askew Calcium [Mass/Vol] 8.7 mg/dL Normal 8.5-10.1 [facility] Comment on above: Performed By: #### L IVER LIPID, BMP #### [facility] [address] [place] [address] Dr. Lara Askew Chloride [Moles/Vol] 105 mmol/L Normal 98-107 [facility] Comment on above: Performed By: #### L IVER, LIPID, BMP #### [facility] [address] [place] [address] Dr. Lara Askew CO2 [Moles/Vol] 28.6 mmol/L Normal 21.0-32.0 [facility] Comment on above: Performed By: #### L IVER LIPID, BMP #### [facility] [address] [place] [address] Dr. Lara Askew Creatinine [Mass/Vol] 1.07 mg/dL Normal 0.70-1.30 [facility] Comment on above: Performed By: #### L IVER LIPID, BMP #### [facility] [address] [address] [address] Lara Askew EGFR-AF GHANAIAN >60 Normal >=60 [facility] Comment on above: Performed By: #### L IVER, LIPID, BMP #### [facility] [address] [address] [address] Lara Askew EGFR-NON AF GHANAIAN >60 Normal >=60 [facility] Comment on above: Performed By: #### L IVER, LIPID, BMP #### [facility] [address] [address] [address] Lara Askew Glucose [Mass/Vol] 147 mg/dL Critically high 74-106 [facility] Comment on above: Performed By: #### L IVER, LIPID, BMP #### [facility] [address] [address] [address] Lara Askew Potassium [Moles/Vol] 5.0 mmol/L Normal 3.5-5.1 [facility] Comment on above: Performed By: #### L IVER, LIPID, BMP #### [facility] [address] [address] [address] Lara Askew Sodium [Moles/Vol] 138 mmol/L Normal 136-145 [facility] Comment on above: Performed By: #### L IVER, LIPID, BMP #### [facility] [address] [address] [address] Lara Askew Urea nitrogen [Mass/Vol] 22.0 mg/dL Critically high 7.0-18.0 [facility] Comment on above: Performed By: #### L IVER, LIPID, BMP #### [facility] [address] [address] [address] Lara Askew Urea nitrogen/Creatinine [Mass ratio] 20.6 mg/mg Normal [facility] Comment on above: Performed By: #### L IVER, LIPID, BMP #### [facility] [address] [address] [address] Lara Askew VITAMIN D 25 OHon 06-06-2022 VIT D 25-OH 10.6 ng/mL Normal [facility] Comment on above: Performed By: #### V DANIEL, PSASC #### [facility] [address] [address] [address] Lara Askew VIT D RANGES SEE BELOW Normal [facility] Comment on above: Result Comment: <20 ng/mL Vit D deficient 20 - <30 ng/mL Vit D insufficient 30 - 100 ng/mL Vit D sufficient >100 ng/mL Potential Toxicity Performed By: #### V DANIEL PSASC #### [facility] [address] [address] [address] Lara Askew GLYCOHEMOGLOBIN A1Con 2021 ADA RECOMMENDATION SEE BELOW Normal [facility] Comment on above: Result Comment: ADA RECOMMENDED LIMIT 4.0 - 6.0 ADA THERAPEUTIC TARGET < 7.0 ACTION SUGGESTED > 7.0 Performed By: #### A 1C #### [facility] [address] [address] [address] Lara Askew Glucose [Mass/Vol] 169 mg/dL Normal [facility] Comment on above: Performed By: #### A 1C #### [facility] [address] [address] [address] Lara Askew HbA1c (Bld) [Mass fraction] 7.5 % Critically high 4.5-6.2 [facility] Comment on above: Performed By: #### A 1C #### [facility] [address] [address] [address] Lara Askew Albumin [Mass/volume] in Ser um or Plasmaon 01-01-2021 Albumin [Mass/Vol] 3.5 g/dL 3.2-5.5 [facility] Creatinine and Glomerular fi ltration rate.predicted panel (S/P/Bld)on 01-01-2021 Creatinine [Mass/Vol] 1.02 mg/dL 0.64-1.27 [facility] Estimated glomerular filtrat ion rate (GFR) non- Americanon 01-01-2021 GFR/1.73 sq M.predicted among non-blacks MDRD (S/P/Bld) [Vol rate/Area] > 60 mL/Min [facility] Globulin Calc (S) [Mass/Vol] on 01-01-2021 Globulin (S) [Mass/Vol] 2.0 g/dL [facility] No Panel Informationon 01-01 Estimated GFR () > 60 mL/Min [facility] Comment on above: GFR estimated refere nce range: According to KDOQI guidelines, <60 ml/min/1.73m2 is sufficient to diagnose a patient with chronic kidney disease. Pharmacy Creatinine Clearance (Chem N/A [facility] Protein [Mass/volume] in Ser um or Plasmaon 01-01-2021 Protein [Mass/Vol] 5.5 g/dL 6.1-7.9 [facility] Serum or plasma alanine chambers otransferase measurement without P-5'-P (enzymatic activion 01-01-2021 ALT No additional P-5'-P [Catalytic activity/Vol] 28 U/L 10-60 [facility] Serum or plasma albumin/glob ulin mass ratioon 01-01-2021 Albumin/Globulin [Mass ratio] 1.8 {ratio} [facility] Serum or plasma alkaline clarisa sphatase measurement (enzymatic activity/volume)on 01-01-2021 ALP [Catalytic activity/Vol] 78 U/L 32-92 [facility] Serum or plasma aspartate am inotransferase measurement (enzymatic activity/volume)on 01-01-2021 AST [Catalytic activity/Vol] 21 U/L 10-42 [facility] Serum or plasma calcium elham urement (mass/volume)on 01-01-2021 Calcium [Mass/Vol] 9.6 mg/dL 8.2-10.2 [facility] Serum or plasma chloride daria surement (moles/volume)on 01-01-2021 Chloride [Moles/Vol] 103 mmol/L 95-114 [facility] Serum or plasma glucose elham urement (mass/volume)on 01-01-2021 Glucose [Mass/Vol] 59 mg/dL 70-100 [facility] Comment on above: ADA recommended refe rence rangeRandom Glucose Reference Range is dependent on time and content of last meal. Glucose of more than 200 mg/dL in a nonstressed, ambulatory subject supports the diagnosis of Diabetes Mellitus. Serum or plasma potassium me asurement (moles/volume)on 01-01-2021 Potassium [Moles/Vol] 4.8 mmol/L 3.5-5.1 [facility] Serum or plasma sodium measu rement (moles/volume)on 01-01-2021 Sodium [Moles/Vol] 143 mmol/L 136-146 [facility] Serum or plasma total biliru bin measurement (mass/volume)on 01-01-2021 Bilirubin [Mass/Vol] 0.9 mg/dL 0.3-1.2 [facility] Serum or plasma total carbon dioxide measurement (moles/volume)on 01-01-2021 CO2 [Moles/Vol] 28.5 mmol/L 22.0-30.0 [facility] Serum or plasma urea nitroge n measurement (mass/volume)on 01-01-2021 Urea nitrogen [Mass/Vol] 14 mg/dL 9- [facility] Vital Signs Date Time Vital Sign Value Performing Clinician Faci lity 01-16-2024 14:09-0400 Body mass index (BMI) [Ratio] 24.89 kg/m2 Faraz Beckham MD Work Phone: [facility] 01-16-2024 14:090400 Body temperature 97.2 [degF] Faraz Beckham MD Work Phone: [facility] 01-16-2024 14:090400 Body weight 73.21 kg Faraz Beckham MD Work Phone: [facility] 01-16-2024 14:09-0400 Diastolic blood pressure 35 mm[Hg] Faraz Beckham MD Work Phone: [facility] 01-16-2024 14:09-0400 Heart rate 45 /min Faraz Beckham MD Work Phone: [facility] 01-16-2024 14:09-0400 Respiratory rate 18 /min Faraz Beckham MD Work Phone: [facility] 01-16-2024 14:09-0400 SaO2% (BldA) [Mass fraction] 98 % Faraz Beckham MD Work Phone: [facility] 01-16-2024 14:09-0400 Systolic blood pressure 132 mm[Hg] Faraz Beckham MD Work Phone: [facility] 09-03-2023 12:11-0500 Body height 172.7 cm Geneva Dechristophe r BUS INFO CONSULTANT-PERISHABLE FREIGHT INSPECTOR Work Phone: [facility] 09-03-2023 12:11-0500 Body mass index (BMI) [Ratio] 26 kg/m2 Geneva Dechristopher BUS INFO CONSULTANT-PERISHABLE FREIGHT INSPECTOR Work Phone: [facility] [employer] [facility] 09-03-2023 12:11-0500 Body weight 77.56 kg Geneva Dechristophe r BUS INFO CONSULTANT-PERISHABLE FREIGHT INSPECTOR Work Phone: [facility] [employer] [facility] 09-03-2023 12:11-0500 Diastolic blood pressure 58 mm[Hg] Geneva Dechristopher BUS INFO CONSULTANT-PERISHABLE FREIGHT INSPECTOR Work Phone: [facility] [employer] [facility] 09-03-2023 12:11-0500 Heart rate 42 /min Geneva Dechristophe r BUS INFO CONSULTANT-PERISHABLE FREIGHT INSPECTOR Work Phone: [facility] [employer] [facility] 09-03-2023 12:11-0500 SaO2% (BldA) [Mass fraction] 98 % Geneva Dechristopher BUS INFO CONSULTANT-PERISHABLE FREIGHT INSPECTOR Work Phone: [facility] [employer] [facility] 09-03-2023 12:11-0500 Systolic blood pressure 130 mm[Hg] Geneva Dechristopher BUS INFO CONSULTANT-PERISHABLE FREIGHT INSPECTOR Work Phone: [facility] [employer] [facility] 08-27-2023 14:07-0500 Body height 172.7 cm Debbie Gonzalez MD Work Phone: [facility] [employer] [facility] 08-27-2023 14:07-0500 Body mass index (BMI) [Ratio] 25.7 kg/m2 Debbie Gonzalez MD Work Phone: [facility] 08-27-2023 14:07-0500 Body weight 76.66 kg Debbie Gonzalez MD Work Phone: [facility] 08-27-2023 14:07-0500 Diastolic blood pressure 50 mm[Hg] Debbie Gonzalez MD Work Phone: [facility] 08-27-2023 14:07-0500 Heart rate 47 /min Debbie Gonzalez MD Work Phone: [facility] 08-27-2023 14:07-0500 SaO2% (BldA) [Mass fraction] 98 % Debbie Gonzalez MD Work Phone: [facility] 08-27-2023 14:07-0500 Systolic blood pressure 132 mm[Hg] Debbie Gonzalez MD Work Phone: [facility] 12-27-2022 13:34-0400 Body height 171.5 cm Faraz Beckham MD Work Phone: [facility] 12-27-2022 13:34-0400 Body temperature 97.59 [degF] Faraz Beckham MD Work Phone: [facility] 12-27-2022 13:34-0400 Body weight 77.2 kg Faraz Beckham MD Work Phone: [facility] 12-27-2022 13:34-0400 Diastolic blood pressure 56 mm[Hg] Faraz Beckham MD Work Phone: [facility] 12-27-2022 13:34-0400 Heart rate 45 /min Faraz Beckham MD Work Phone: [facility] 12-27-2022 13:34-0400 Respiratory rate 16 /min Faraz Beckham MD Work Phone: [facility] 12-27-2022 13:34-0400 SaO2% (BldA) [Mass fraction] 98 % Faraz Beckham MD Work Phone: [facility] 12-27-2022 13:34-0400 Systolic blood pressure 146 mm[Hg] Faraz Beckham MD Work Phone: [facility] 06-21-2022 14:44-0500 Body height 172.7 cm Faraz Beckham MD Work Phone: [facility] 06-21-2022 14:44-0500 Body temperature 97.59 [degF] Faraz Beckham MD Work Phone: [facility] 06-21-2022 14:44-0500 Body weight 77.02 kg Faraz Beckham MD Work Phone: [facility] 06-21-2022 14:44-0500 Diastolic blood pressure 48 mm[Hg] Faraz Beckham MD Work Phone: [facility] 06-21-2022 14:44-0500 Heart rate 40 /min Faraz Beckham MD Work Phone: [facility] 06-21-2022 14:44-0500 Respiratory rate 16 /min Faraz Bcekham MD Work Phone: [facility] 06-21-2022 14:44-0500 SaO2% (BldA) [Mass fraction] 99 % Faraz Beckham MD Work Phone: [facility] 06-21-2022 14:44-0500 Systolic blood pressure 179 mm[Hg] Faraz Beckham MD Work Phone: [facility] Encounters Encounter Date Encounter Type Care Provider Facility Start: 02-24-2024 End: 02-24-2024 ambulatory JUDAH Bret [facility] Start: 01-16-2024 End: 01-16-2024 Office outpatient visit 25 minutes Faraz Beckham MD Work Phone: Hematology/Oncology Comment on above: CLL (chronic lymphoc ytic leukemia) (HCC) (Primary Dx); Large granular lymphocytosis; Stage 3 chronic kidney disease, unspecified whether stage 3a or 3b CKD (HCC) Start: 01-16-2024 End: 01-16-2024 ambulatory FARAZ EMMANUELFRANKY Facility:[facility] Start: 01-09-2024 End: 01-09-2024 ambulatory CRUZITO CHATMANLOBITO Not Available Start: 01-08-2024 End: 01-08-2024 ambulatory BRAD STINSON Not Available Start: 12-27-2023 End: 12-27-2023 ambulatory Arminda Valverde [facility] Work Phone: Start: 12-27-2023 End: 12-27-2023 Departed Referred DO Arminda Valverde Work Phone: [facility] Start: 12-18-2023 End: 12-18-2023 ambulatory CRUZITO ALCIDES Not Available Start: 10-24-2023 End: 10-24-2023 ambulatory CRUZITO ALCIDES Not Available Start: 09-03-2023 End: 09-03-2023 ambulatory GENEVA Gladis [facility] Start: 09-03-2023 End: 09-03-2023 Office outpatient visit 15 minutes Geneva Schofieldcarmela BUS INFO CONSULTANT-PERISHABLE FREIGHT INSPECTOR Work Phone: [facility] Comment on above: Coronary artery dise ase involving [place] coronary artery of [place] heart without angina pectoris (Primary Dx); Sinus pause; Hypertension, unspecified type; NSTEMI (non-ST elevated myocardial infarction) ([facility]) Start: 08-27-2023 End: 08-27-2023 Office outpatient visit 15 minutes Debbie Gonzalez MD Work Phone: [facility] Comment on above: History of coronary angioplasty with insertion of stent (Primary Dx); Pulmonary hypertension ([facility]); Primary hypertension; Hx of hyperlipidemia; Sinus pause Start: 08-27-2023 End: 08-27-2023 [facility] Start: 08-26-2023 Telephone encounter Gabbie Rebolledo CMA [facility] Start: 08-25-2023 End: 08-25-2023 ambulatory TAYLER COREY [facility] Start: 08-21-2023 End: 08-21-2023 Patient encounter procedure Patria Bhat BUS INFO CONSULTANT-PERISHABLE FREIGHT INSPECTOR Work Phone: [facility] Start: 08-21-2023 End: 08-21-2023 ambulatory [facility] Start: 08-20-2023 End: 08-20-2023 Patient encounter procedure Patria Mendozalosser BUS INFO CONSULTANT-PERISHABLE FREIGHT INSPECTOR Work Phone: [facility] Start: 08-20-2023 End: 08-20-2023 ambulatory [facility] Start: 08-18-2023 End: 08-18-2023 [facility] Start: 08-14-2023 End: 08-14-2023 Patient encounter procedure Patria Mendozalosser BUS INFO CONSULTANT-PERISHABLE FREIGHT INSPECTOR Work Phone: [facility] Start: 08-14-2023 End: 08-14-2023 [facility] Start: 08-13-2023 End: 08-13-2023 [facility] Start: 08-11-2023 End: 08-11-2023 Patient encounter procedure Patria Mendozalosser BUS INFO CONSULTANT-PERISHABLE FREIGHT INSPECTOR Work Phone: [facility] Start: 08-11-2023 End: 08-11-2023 ambulatory [facility] Start: 08-07-2023 End: 08-07-2023 Patient encounter procedure Patria Mendozalosser BUS INFO CONSULTANT-PERISHABLE FREIGHT INSPECTOR Work Phone: [facility] Start: 08-07-2023 End: 08-07-2023 [facility] Start: 08-06-2023 End: 08-06-2023 ambulatory [facility] Start: 08-05-2023 End: 08-05-2023 ambulatory WAYNE DONALD [facility] Start: 08-04-2023 Documentation procedure Wayne Donald MD Work Phone: [facility] Student Admissions Clerk Sign In Start: 08-04-2023 End: 08-04-2023 Patient encounter procedure Kaityaliyah Home BUS INFO CONSULTANT-PERISHABLE FREIGHT INSPECTOR Work Phone: [facility] Start: 08-04-2023 End: 08-04-2023 [facility] Start: 07-31-2023 End: 07-31-2023 [facility] Start: 07-30-2023 End: 08-21-2023 [facility] Start: 07-28-2023 End: 07-28-2023 [facility] Start: 07-24-2023 End: 07-24-2023 Patient encounter procedure Patria Mendozalosser BUS INFO CONSULTANT-PERISHABLE FREIGHT INSPECTOR Work Phone: [facility] Start: 07-24-2023 End: 07-24-2023 [facility] Start: 07-23-2023 End: 07-23-2023 ambulatory CRUZITO MCGRATH [facility] Start: 07-23-2023 End: 07-23-2023 Patient encounter procedure Kaitysangabdiel MendozaHome BUS INFO CONSULTANT-PERISHABLE FREIGHT INSPECTOR Work Phone: [facility] Start: 07-23-2023 End: 07-23-2023 [facility] Start: 07-22-2023 End: 07-22-2023 ambulatory CRUZITO CHATMANLÓPEZR Not Available Start: 07-17-2023 End: 07-17-2023 Patient encounter procedure Kaityaliyah Home BUS INFO CONSULTANT-PERISHABLE FREIGHT INSPECTOR Work Phone: [facility] Comment on above: Arrived Start: 07-17-2023 End: 07-17-2023 ambulatory [facility] Start: 07-16-2023 End: 07-16-2023 ambulatory CRUZITO MCGRATH Facility:[facility] Start: 07-16-2023 End: 07-21-2023 ambulatory [facility] Start: 07-10-2023 End: 07-10-2023 ambulatory [facility] Start: 07-09-2023 End: 07-09-2023 ambulatory [facility] Start: 07-07-2023 End: 07-07-2023 ambulatory [facility] Start: 07-03-2023 End: 07-21-2023 ambulatory 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, unspecified whether clinical audiologist insulin use (HCC) Start: 06-27-2022 End: 06-28-2022 [...] Patient encounter procedure Cruzito Mcgrath Work Phone: -[facility] Procedures Date Procedure Procedure Detail Performing Clinician Start: 08-27-2023 Follow-up visit Follow-up NASH GONZALEZ Start: 04-05-2023 Adult depression screening assessment Pmh 1 Start: 12-26-2022 Colonoscopy Faraz miles MD Work Phone: Start: 06-06-[address] CRUZITO SEAY Comment on above: Performed By: #### V ITAD, PSASC #### [facility] [address] [place] [address] Dr. Lara Askew Start: 10-30-2016 Microalbumin [Mass/volume] in Urine by Test strip Pmh 1 History of placement of stent for coronary artery disease History of coronary angioplasty with insertion of stent Debbie Gonzalez MD Work Phone: Plan of Treatment Date Care Activity Detail Author Start: 12-27-2027 Screening for malignant neoplasm of colon Colonoscopy [facility] Start: 06-21-2025 DIABETES SCREEN DIABETES SCREEN [facility] Start: 01-15-2025 Creatinine measurement Serum Creatinine [facility] Start: 09-03-2024 Adult BMI Screening Adult BMI Screening [facility] Start: 09-03-2024 Tobacco Screening Tobacco Screening [facility] Start: 08-27-2024 Adult BMI Screening Adult BMI Screening [facility] Start: 08-27-2024 Tobacco Screening Tobacco Screening [facility] Start: 07-17-2024 End: 01-15-2025 CBC W Auto Differential panel - Blood COMPLETE BLOOD COUNT AND DIFFERENTIAL Lab Routine CLL (chronic lymphocytic leukemia) (HCC) Expected: 07/17/2024 (Approximate), Expires: 01/15/2025 [facility] Comment on above: Expected: 07/17/2024 (Approximate), Expi res: 01/15/2025 Start: 07-17-2024 End: 01-15-2025 Comprehensive metabolic 2000 panel - Serum or Plasma COMPREHENSIVE METABOLIC PANEL Lab Routine CLL (chronic lymphocytic leukemia) (HCC) Expected: 07/17/2024 (Approximate), Expires: 01/15/2025 [facility] Comment on above: Expected: 07/17/2024 (Approximate), Expi res: 01/15/2025 Start: 07-17-2024 End: 01-15-2025 Lactate dehydrogenase [Enzymatic activity/volume] in Serum or Plasma LACTATE DEHYDROGENASE Lab Routine CLL (chronic lymphocytic leukemia) (HCC) Expected: 07/17/2024 (Approximate), Expires: 01/15/2025 [facility] Work Phone: Comment on above: Expected: 07/17/2024 (Approximate), Expi res: 01/15/2025 Start: 07-17-2024 End: 10-16-2024 Urate [Mass/volume] in Serum or Plasma URIC ACID Lab Routine CLL (chronic lymphocytic leukemia) (HCC) Expected: 07/17/2024 (Approximate), Expires: 10/16/2024 [facility] Comment on above: Expected: 07/17/2024 (Approximate), Expi res: 10/16/2024 Start: 07-16-2024 Complete blood count Hemoglobin/Hematocrit [facility] Start: 07-09-2024 End: 07-09-2024 Follow-up encounter 07/09/2024 2:15 PM EST Visit (SP) Office Hematology/Oncology [address] [place] [address] [place] [address] Faraz Beckham MD [address] [place] [address] 6 month follow up lab Hematology/Oncology Comment on above: 6 month follow up lab Start: 07-09-2024 End: 07-09-2024 Patient encounter procedure 07/09/2024 2:00 PM EST Office Visit [facility] [address] [place] [address] 6 month follow up lab [facility] Comment on above: 6 month follow up lab Start: 05-01-2024 Adult BMI Screening Adult BMI Screening [facility] Start: 05-01-2024 Tobacco Screening Tobacco Screening [facility] Start: 04-05-2024 Depression Screening Depression Screening [facility] Start: 03-15-2024 End: 03-15-2024 Patient encounter procedure [facility] Start: 02-24-2024 End: 02-24-2024 Patient encounter procedure [facility] Start: 01-21-2024 Hemoglobin A1c measurement HbA1C [facility] Start: 12-28-2023 HEMOGLOBIN/HEMATOCRIT HEMOGLOBIN/HEMATOCRIT [facility] Start: 12-28-2023 SERUM CREATININE SERUM CREATININE [facility] Start: 12-27-2023 Colonoscopy COLONOSCOPY [facility] Start: 12-27-2023 COLORECTAL CANCER SCREENING COLORECTAL CANCER SCREENING [facility] Start: 10-28-2023 End: 10-28-2023 Patient encounter procedure 10/28/2023 11:00 AM EDT Office Visit [facility] [address] [place] [id number] Gage Norton MD [address] [place] [address] [facility] Start: 09-27-2023 Covid-19 Vaccine ( season) Covid-19 Vaccine () [facility] Start: 09-03-2023 End: 09-03-2023 Patient encounter procedure 09/03/2023 1:00 PM EST Office Visit [facility] [address] [place] [address] Geneva Sanders, BUS INFO CONSULTANT-PERISHABLE FREIGHT INSPECTOR [address] [place] [address] [facility] Start: 08-27-2023 End: 08-27-2023 Patient encounter procedure 08/27/2023 2:00 PM EST Office Visit [facility] [address] [address] Debbie Gonzalez MD [address] [place] [address] [facility] Start: 08-21-2023 End: 08-21-2023 Patient encounter procedure 08/21/2023 1:00 PM EST Office Visit [facility] [address] [place] [address] Patria Bhat APRN-PERISHABLE FREIGHT INSPECTOR [address] [place] [address] [facility] Start: 08-20-2023 End: 08-20-2023 Patient encounter procedure 08/20/2023 1:00 PM EST Office Visit [facility] [address] [place] [address] Patria Bhat APRN-PERISHABLE FREIGHT INSPECTOR [address] [place] [address] [facility] Start: 08-18-2023 End: 08-18-2023 Patient encounter procedure 08/18/2023 1:00 PM EST Office Visit [facility] [address] [place] [address] Patria Bhat APRN-PERISHABLE FREIGHT INSPECTOR [address] [place] [address] [facility] Start: 08-14-2023 End: 08-14-2023 Patient encounter procedure 08/14/2023 1:00 PM EST Office Visit [facility] [address] [place] [address] Patria Bhat APRN-PERISHABLE FREIGHT INSPECTOR [address] [place] [address] [facility] Start: 08-13-2023 End: 08-13-2023 Patient encounter procedure 08/13/2023 1:00 PM EST Office Visit [facility] [address] [facility] [place] [address] Patria Bhat APRN-PERISHABLE FREIGHT INSPECTOR [address] [place] [address] [facility] Start: 08-11-2023 End: 08-11-2023 Patient encounter procedure 08/11/2023 1:00 PM EST Office Visit [facility] [address] [place] [address] Patria Bhat APRN-PERISHABLE FREIGHT INSPECTOR [address] [place] [address] [facility] Start: 08-07-2023 End: 08-07-2023 Patient encounter procedure 08/07/2023 1:00 PM EST Office Visit [facility] [address] [place] [address] Patria Bhat APRN-PERISHABLE FREIGHT INSPECTOR [address] [place] [address] [facility] Start: 08-06-2023 End: 08-06-2023 Patient encounter procedure 08/06/2023 1:00 PM EST Office Visit [facility] [address] [place] [address] Patria Bhat APRN-PERISHABLE FREIGHT INSPECTOR [address] [place] [address] [facility] Start: 08-05-2023 End: 08-05-2023 Patient encounter procedure 08/05/2023 9:00 AM EST Appointment [facility] [address] [place] [address] Wayne Donald MD [address] [place] [address] [facility] Start: 08-04-2023 End: 08-04-2024 Holter monitor study Holter monitor 24-48 hour Cardiac Services Routine Bradycardia Expected: 08/04/2023, Expires: 08/04/2024 [facility] Work Phone: Comment on above: Expected: 08/04/2023, Expires: Start: 08-04-2023 End: 08-04-2023 Patient encounter procedure 08/04/2023 1:00 PM EST Office Visit [facility] [address] [facility] [place] [address] Patria Bhat APRN-PERISHABLE FREIGHT INSPECTOR [address] [place] [address] [facility] Start: 07-31-2023 End: 07-31-2023 Patient encounter procedure 07/31/2023 1:00 PM EST Office Visit [facility] [address] [place] [address] Patria Bhat APRN-PERISHABLE FREIGHT INSPECTOR [address] [place] [address] [facility] Start: 07-30-2023 End: 07-30-2023 Patient encounter procedure 07/30/2023 1:00 PM EST Office Visit [facility] [address] [place] [address] Patria Bhat APRN-PERISHABLE FREIGHT INSPECTOR [address] [place] [address] [facility] Start: 07-28-2023 End: 07-28-2023 Patient encounter procedure 07/28/2023 1:00 PM EST Office Visit [facility] [address] [place] [address] Patria Bhat APRN-PERISHABLE FREIGHT INSPECTOR [address] [place] [address] [facility] Start: 07-24-2023 End: 07-24-2023 Patient encounter procedure 07/24/2023 1:00 PM EST Office Visit [facility] [address] [place] [address] Patria Bhat APRN-PERISHABLE FREIGHT INSPECTOR [address] [facility] [place] [address] [facility] Start: 07-23-2023 End: 07-23-2023 Patient encounter procedure 07/23/2023 1:00 PM EST Office Visit [facility] [address] [place] [address] Patria Bhat, BUS INFO CONSULTANT-PERISHABLE FREIGHT INSPECTOR [address] [place] [address] [facility] Start: 07-21-2023 Advance Directive Discussion Advance Directive Discussion [facility] Start: 07-21-2023 Behavioral Health Screening Behavioral Health Screening [facility] Start: 06-28-2023 End: 12-28-2023 CBC W Auto Differential panel - Blood CBC + DIFF Lab Routine CLL (chronic lymphocytic leukemia) (HCC) Large granular lymphocytosis Expected: 06/28/2023 (Approximate), Expires: 12/28/2023 [facility] Work Phone: Comment on above: Expected: 06/28/2023 (Approximate), Expi res: 12/28/2023 Start: 06-28-2023 End: 12-28-2023 Comprehensive metabolic 2000 panel - Serum or Plasma COMP METABOLIC PANEL Lab Routine CLL (chronic lymphocytic leukemia) (HCC) Large granular lymphocytosis Expected: 06/28/2023 (Approximate), Expires: 12/28/2023 [facility] Work Phone: Comment on above: Expected: 06/28/2023 (Approximate), Expi res: 12/28/2023 Start: 06-28-2023 End: 12-28-2023 Lactate dehydrogenase [Enzymatic activity/volume] in Serum or Plasma LD LACTATE DEHYDRO Lab Routine CLL (chronic lymphocytic leukemia) (HCC) Large granular lymphocytosis Expected: 06/28/2023 (Approximate), Expires: 12/28/2023 [facility] Work Phone: Comment on above: Expected: 06/28/2023 (Approximate), Expi res: 12/28/2023 Start: 06-28-2023 End: 08-28-2023 Urate [Mass/volume] in Serum or Plasma URIC ACID BLOOD Lab Routine CLL (chronic lymphocytic leukemia) (HCC) Large granular lymphocytosis Expected: 06/28/2023 (Approximate), Expires: 08/28/2023 [facility] Work Phone: Comment on above: Expected: 06/28/2023 (Approximate), Expi res: 08/28/2023 Start: 05-22-2023 Hemoglobin A1c/Hemoglobin.total in Blood HBA1C [facility] Start: 03-21-2023 COVID-19 Vaccine ( season) COVID-19 Vaccine () [facility] Start: 03-21-2023 Influenza vaccination Influenza Vaccine [facility] Start: 07-21-2022 ADVANCE DIRECTIVE DISCUSSION ADVANCE DIRECTIVE DISCUSSION [facility] Start: 07-21-2022 DEPRESSION ASSESSMENT DEPRESSION ASSESSMENT [facility] Start: 06-21-2022 End: 08-21-2022 FISH FOR CLL [facility] Work Phone: Comment on above: Expected: 06/21/2022, Expires: 3 Start: 06-21-2022 End: 08-21-2022 PROTEIN ELECTROPHORESIS SERUM W/INTERP [facility] Work Phone: Comment on above: Expected: 06/21/2022, Expires: 3 Start: 03-21-2022 Influenza vaccination INFLUENZA (#1) [facility] Start: 07-21-2021 ADVANCE DIRECTIVE DISCUSSION ADVANCE DIRECTIVE DISCUSSION [facility] Start: 07-21-2021 DEPRESSION ASSESSMENT DEPRESSION ASSESSMENT [facility] Start: 06-24-2019 PNEUMOCOCCAL: 65+ (2 - PPSV23 if available, else PCV20) PNEUMOCOCCAL: 65+ (2 - PPSV23 if available, else PCV20) [facility] Start: 08-19-2018 Pneumococcal Vaccine: 65+ (2 of 2 - PPSV23 or PCV20) Pneumococcal Vaccine: 65+ (2 of 2 - PPSV23 or PCV20) [facility] Start: 08-19-2018 PNEUMOCOCCAL: 65+ (2 - PPSV23 if available, else PCV20) PNEUMOCOCCAL: 65+ (2 - PPSV23 if available, else PCV20) [facility] Start: 10-30-2017 Urine screening for protein Urine Microalbumin [facility] Start: 2012 Fall Risk Screening Fall Risk Screening [facility] Start: 2012 PNEUMOCOCCAL: 65+ (1 - PCV) PNEUMOCOCCAL: 65+ (1 - PCV) [facility] Start: 2007 RSV Vaccine (1 - 1-dose 60+ series) RSV Vaccine (1 - 1-dose 60+ series) [facility] Start: 1997 Administration of varicella zoster vaccine Zoster (Shingles) Vaccine (1 of 2) [facility] Start: 1997 SHINGRIX VACCINE (1 of 2) SHINGRIX VACCINE (1 of 2) [facility] Start: 1992 COLOGUARD (FIT-DNA) COLOGUARD (FIT-DNA) [facility] Start: 1992 Colonoscopy COLONOSCOPY [facility] Start: 1992 COLORECTAL CANCER SCREENING COLORECTAL CANCER SCREENING [facility] Start: [address] COLONOGRAPHY [facility] Start: 1992 DIABETES SCREEN DIABETES SCREEN [facility] Start: 1992 FECAL OCCULT BLOOD FECAL OCCULT BLOOD [facility] Start: 1992 SIGMOIDOSCOPY SIGMOIDOSCOPY [facility] Start: 1982 LIPID SCREEN LIPID SCREEN [facility] Start: 1966 DTaP,Tdap and Td Vaccines (1 - Tdap) DTaP,Tdap and Td Vaccines (1 - Tdap) [facility] Start: 1966 SHINGRIX VACCINE (1 of 2) SHINGRIX VACCINE (1 of 2) [facility] Start: 1966 Urine microalbumin profile [facility] Start: 1965 Adult BMI Follow Up Plan Adult BMI Follow Up Plan [facility] Start: 1965 ANNUAL PCP TEAM CHRONIC DISEASE VISIT ANNUAL PCP TEAM CHRONIC DISEASE VISIT [facility] Start: 1965 Hepatitis B surface antibody level LDL CHOLESTEROL [facility] Start: 1965 HEPATITIS C SCREENING HEPATITIS C SCREENING [facility] Start: 1965 Hepatitis C screening Hepatitis C Screening [facility] Start: 1957 3 comp foot exam completed DIABETIC FOOT EXAM [facility] Start: 1957 Diabetic foot examination Diabetic Foot Exam [facility] Start: 1957 Glaucoma screening Dilated Retinal Exam [facility] Start: 1957 Hepatitis B screening URINE ALBUMIN:CREATININE RATIO [facility] Start: 1957 Hepatitis C antibody, confirmatory test DILATED RETINAL EXAM [facility] Start: 01-18-1948 COVID-19 VACCINE (#1) COVID-19 VACCINE (#1) [facility] Start: 1947 ABDOMINAL AORTIC ANEURYSM SCREENING ABDOMINAL AORTIC ANEURYSM SCREENING [facility] Start: 1947 Glaucoma screening Diabetic Ophthalmology Exam [facility] Start: 1947 Medicare Annual Wellness Visit Medicare Annual Wellness Visit [facility] CARDIOPULMONARY REHABILITATION CARDIOPULMONARY REHABILITATION Cardiac Services Ordered: [...] 08/25/2023 [facility] Comment on above: Ordered: 08/25/2023 [facility] Immunizations Immunization Date Immunization Notes Care Provider [facility] 04-02-2022 influenza, high-dose , quadrivalent vaccine (FLUZONE HIGH DOSE QUADRIVALENT) Faraz Beckham MD Work Phone: [facility] 04-02-2022 influenza virus vaccine, unspecified formulation [facility] 1 [facility] 03-30-2020 influenza, high dose seasonal, preservative-free Faraz Beckham MD Work Phone: [facility] 04-01-2019 influenza, high dose seasonal, preservative-free Faraz Beckham MD Work Phone: [facility] 06-24-2018 pneumococcal conjuga te vaccine, 13 valent Faraz Beckham MD Work Phone: [facility] 05-13-2018 influenza, high dose seasonal, preservative-free Faraz Beckham MD Work Phone: [facility] 05-28-2017 influenza, injectabl e, quadrivalent, contains preservative Faraz Beckham MD Work Phone: [facility] Payers Date Payer Category Payer Self-pay [id number] 2021 Private Health Insurance [id number] 2012 Medicare [id number] 1959 Medicare [id number] 1959 Unknown [id number] 1947 Unknown [id number] 2.16.84 0.1.431091.3.579.2.593 1947 Unknown [id number] 2.16.84 0.1.809370.3.579.2.593 1947 Unknown [id number] 2.16.8 40.1.867516.3.579.2.1286 1947 Unknown [id number] 2.16.84 0.1.201985.3.579.2.1259 1947 Unknown [id number] 2.16.84 0.1.388412.3.579.2.1259 1947 Unknown [id number] 2.16.84 0.1.797981.3.579.2.1259 1947 Unknown [id number] 2.16.84 0.1.107019.3.579.2.1259 1947 Unknown [id number] 2.16.840 .1.984838.3.579.2.1259 1947 Unknown [id number] 2.16.840 .1.427900.3.579.2.1259 1947 Unknown [id number] 2.16.8 40.1.207775.3.579.2.1286 1947 Unknown [id number] 2.16.8 40.1.559959.3.579.2.1286 1947 Unknown [id number] 2.16.8 40.1.753174.3.579.2.1286 1947 Unknown [id number] 2.16.8 40.1.925477.3.579.2.1286 1947 Unknown [id number] 2.16.8 40.1.434251.3.579.2.1286 1947 Unknown [id number] 2.16.8 40.1.336835.3.579.2.1286 1947 Unknown [id number] 2.16.8 40.1.752892.3.579.2.1286 1947 Unknown [id number] 2.16.8 40.1.685805.3.579.2.1286 1947 Unknown [id number] 2.16.8 40.1.787706.3.579.2.1286 1947 Unknown [id number] 2.16.84 0.1.658442.3.579.2.1286 1947 Unknown [id number] 2.16.84 0.1.751447.3.579.2.1286 1947 Unknown [id number] 2.16.84 0.1.306465.3.579.2.1286 1947 Unknown [id number] 2.16.84 0.1.173467.3.579.2.1286 1947 Unknown [id number] 2.16.84 0.1.196546.3.579.2.1286 1947 Unknown [id number] 2.16.84 0.1.308168.3.579.2.1286 1947 Unknown [id number] 2.16.8 40.1.446905.3.579.2.128 1947 Unknown [id number] 2.16.84 0.1.590961.3.579.2.128 1947 Unknown [id number] 2.16.84 0.1.595125.3.579.2.1285 1947 Unknown [id number] 2.16.84 0.1.396682.3.579.2.1285 1947 Unknown [id number] 2.16.84 0.1.566107.3.579.2.128 1947 Unknown [id number] 2.16.84 0.1.991100.3.579.2.128 1947 Unknown [id number] 2.16.84 0.1.126354.3.579.2.1286 1947 Unknown [id number] 2.16.84 0.1.792702.3.579.2.128 1947 Unknown [id number] 2.16.84 0.1.251464.3.579.2.128 1947 Unknown [id number] 2.16.840 .1.216086.3.579.2.128 1947 Unknown [id number] 2.16.84 0.1.079002.3.579.2.1286 Unknown [id number] Unknown [id number] 2.16.8 40.1.030522.3.579.2.531 Social History Date Type Detail Facility Tobacco smoking stat us MNIS Unknown if ever smoked [facility] Start: 1945 Sex Assigned At Male [facility] Start: 06-18-2022 Tobacco smoking status NHIS Smokes tobacco daily [facility] End: 07-21-2019 History of tobacco use Cigarette Smoker [facility] History of tobacco use Passive smoker [facility] Start: 06-18-2022 End: 06-21-2022 Tobacco use and exposure Smokeless tobacco non-user [facility] Start: 1945 Sex Assigned At Not on file [facility] Start: 01-16-2021 End: 06-21-2022 Tobacco smoking status NHIS Ex-smoker [facility] End: 07-21-2019 History of tobacco use Current smoker [facility] Start: 06-21-2022 End: 01-16-2024 Alcohol intake Not Asked [facility] Start: 06-11-2022 End: 06-21-2022 Exposure to SARS-CoV-2 (event) Not sure [facility] Start: 05-06-2022 End: 12-27-2022 Cigarettes smoked current (pack per day) - Reported 0.5 [facility] Start: 05-01-2023 End: 09-03-2023 Alcohol intake Current drinker of alcohol (finding) [facility] Start: 08-09-2019 End: 12-27-2022 Alcohol Use Disorder Identification Test - Consumption [AUDIT-C] [facility] Frequency of Alcohol Consumption Never [facility] Start: 05-06-2022 Tobacco Comment 4-5 cigarettes per day [facility] Start: 08-07-2018 Alcohol Comment once a month [facility] Medical Equipment Procedure Code Equipment Code Equipment Origin al Text Equipment Identifier Dates Mesh [id number] Pro 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 Evaluation of progress towards goal: pt wants to discharge home independently Clinical Notes 06-21-2022 to 01-16-2024 Faraz Beckham MD - 01/16/2024 2:45 PM EDTPatient Юлия Sanders APRN-PERISHABLE FREIGHT INSPECTOR - 09/03/2023 1:00 PM ESTMolionel Gonzalez MD - 08/27/2023 2:00 PM ESTPatient Instructions Note Date & Type Note Facility 01-16-2024 History of Present illness Narrative Images from the original note were not included. NAME: Ila Morejon CLINIC NO.: [id number] DATE OF SERVICE: January 16, 2024 (Lory) Some elements in this clinic note that are critical to medical decision making have been carefully reviewed and included from a prior clinic note dated: July 16, 2023 (Lory) Referring Provider: Cruzito Mcgrath Additional Clinicians involved in Ila Bob's care: DIAGNOSIS: lymphocytosis ASSESSMENT: 78 year old man with DM HTN, PVD presenting with lymphocytosis and diagnosed with CLL early June 2022. 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 He is asymptomatic with no indications for treatment. Continue follow-up plans as previously arranged. PLAN: RTC in 6 months, with labs same day HPI: CASE HISTORY: Reverse Chronological Order 04/04/2023 - Admitted to [facility] with NSTEMI Underwent placement of drug eluting [...] CBC 18.8>14.0/39.7<185 Abs. Lymph: 10.1 Updated Visit, January 16, 2024: Ila returns with Sabrina, who reports he has been napping more often. He is recovering from pneumonia. He denies night sweats, fever, chills. He has lost 17 lbs since last visit, gained 8 lbs back on today's check. He admits to a diminished appetite for a period of time, now recovered. Renal function has worsened, although CLL is stable. Updated Visit, July 16, 2023: Ila returns [...] Has been sleeping more, especially since the [place]. Updated Visit, December 27, 2022: 13 year [...] PERFORMANCE STATUS: 0 PHYSICAL EXAMINATION: Vitals: BP 132/35 Pulse 45 Temp (Src) 97.2 (Temporal) Resp 18 Wt 161 lb 6.4 oz (73.2kg) SpO2 98% Body surface area is 1.87 meters squared. Exam limited to gross visualization [...] skin without rash, lesions, wounds or petechiae. Negative lymph node and spleen exam. ALLERGIES: ALLERGIES No Known Allergies MEDICATIONS: BRILINTA [...] Take 100 mg by mouth once daily. lisinopril (ZESTRIL) 30 mg tablet Take 30 mg by mouth once daily. pravastatin (PRAVACHOL) 20 mg tablet Take 20 mg by mouth once daily. metFORMIN (GLUCOPHAGE) 500 mg tablet Take 500 mg by mouth daily with breakfast. furosemide (LASIX) 40 mg tablet Take 40 mg by mouth as needed. carvedilol (COREG) 6.25 mg tablet Take 6.25 mg by mouth two times a day with meals. clopidogrel (PLAVIX) 75 mg tablet Take 75 mg by mouth once daily. glipiZIDE (GLUCOTROL) 10 mg tablet Take 10 mg by mouth two times a day before meals. LABORATORY VALUES: WBC (k/uL) Date Value 01/16/2024 16.98 (H) RBC (m/uL) Date Value 01/16/2024 3.38 (L) Hemoglobin (g/dL) Date Value 01/16/2024 10.6 (L) Hematocrit (%) Date Value 01/16/2024 30.8 (L) MCV (fL) Date Value 01/16/2024 91.1 MCH (pg) Date Value 01/16/2024 31.4 MCHC (g/dL) Date Value 01/16/2024 34.4 RDW-CV (%) Date Value 01/16/2024 13.4 Platelet Count (k/uL) Date Value 01/16/2024 172 MPV (fL) Date Value 01/16/2024 10.2 Glucose (mg/dL) Date Value 01/16/2024 180 (H) BUN (mg/dL) Date Value 01/16/2024 29 (H) Creatinine (mg/dL) Date Value 01/16/2024 1.64 (H) Sodium (mmol/L) Date Value 01/16/2024 137 Potassium (mmol/L) Date Value 01/16/2024 5.2 (H) Chloride (mmol/L) Date Value 01/16/2024 107 CO2 (mmol/L) Date Value 01/16/2024 24 Protein, Total (g/dL) Date Value 01/16/2024 6.3 Albumin (g/dL) Date Value 01/16/2024 3.8 (L) Calcium, Total (mg/dL) Date Value 01/16/2024 9.8 Alkaline Phosphatase (U/L) Date Value 01/16/2024 84 Bilirubin, Total (mg/dL) Date Value 01/16/2024 0.4 AST (U/L) Date Value 01/16/2024 26 ALT (U/L) Date Value 01/16/2024 34 DIAGNOSIS: (C91.10) CLL (chronic lymphocytic leukemia) (HCC) (primary encounter diagnosis) Plan: LACTATE DEHYDROGENASE, COMPLETE BLOOD COUNT AND DIFFERENTIAL, COMPREHENSIVE METABOLIC PANEL, URIC ACID (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 chronic kidney disease, unspecified whether stage 3a or 3b CKD (HCC) PAST MEDICAL HISTORY Diagnosis Date CAD (coronary artery disease) Diabetes mellitus (HCC) Dyslipidemia Heart attack (HCC) Hypertension Inguinal hernia Left Leukocytosis Peripheral vascular disease (HCC) Vitamin D deficiency PAST SURGICAL HISTORY Procedure Laterality Date HERNIA REPAIR HX PAST SURGICAL HISTORY OF Cardiac stent x4 Social History Tobacco Use Smoking status: Former Types: Cigarettes Passive exposure: Past Smokeless tobacco: Never FAMILY HISTORY Problem Relation Age of Onset Diabetes Mother Cancer Father Diabetes Father I spent a total of 30 minutes on the date of the service which included preparing to see the patient, [id number] patient care, completing clinical documentation, obtaining and/or reviewing separately obtained history, performing a medically appropriate examination, counseling and educating the patient/family/caregiver, ordering medications, tests, or procedures, and independently interpreting results (not separately reported). Faraz Beckham MD, CPE Hematology and Oncology Services Provided at: [place], [place] Scribe Attestation: This note was scribed by Di Barnes on January 16, 2024 under the direction and supervision of Dr. Faraz Beckham. I attest that all of the information documented is correct to the best of my knowledge. Provider Attestation: I, Faraz Beckham MD, attest that all information documented by the above scribe is correct, and was supervised by me and under my direction. CC: Cruzito Mcgrath MD ([facility]) [address] [facility] [address] documented in this encounter [facility] 01-16-2024 Note HNO ID: [id number] Author: FARAZ BECKHAM MD Service: ? Author Type: Physician Type: Progress Notes Filed: 01/16/2024 18:22 Note Text: NAME: Ila Morejon CLINIC NO.: [id number] DATE OF SERVICE: January 16, 2024 (Lory) Some elements in this clinic note that are critical to medical decision making have been carefully reviewed and included from a prior clinic note dated: July 16, 2023 (Lory) Referring Provider: Cruzito Mcgrath Additional Clinicians involved in Ila Morejon's care: DIAGNOSIS: lymphocytosis ASSESSMENT: 78 year old man with DM HTN, PVD presenting with lymphocytosis and diagnosed with CLL early June 2022. 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 He is asymptomatic with no indications for treatment. Continue follow-up plans as previously arranged. PLAN: RTC in 6 months, with labs same day HPI: CASE HISTORY: Reverse Chronological Order 04/04/2023 - Admitted to [facility] with NSTEMI Underwent placement [...] CBC 18.8>14.0/39.7<185 Abs. Lymph: 10.1 Updated Visit, January 16, 2024: Ila returns with Sabrina, who reports he has been napping more often. He is recovering from pneumonia. He denies night sweats, fever, chills. He has lost 17 lbs since last visit, gained 8 lbs back on today's check. He admits to a diminished appetite for a period of time, now recovered. Renal function has worsened, although CLL is stable. Updated Visit, July 16, 2023: Ila returns [...] Has been sleeping more, especially since the [place]. Updated Visit, December 27, 2022: 13 year [...] PERFORMANCE STATUS: 0 PHYSICAL EXAMINATION: Vitals: BP 132/35 Pulse 45 Temp (Src) 97.2 (Temporal) Resp 18 Wt 161 lb 6.4 oz (73.2kg) SpO2 98% Body surface area is 1.87 meters squared. Exam limited to gross visualization [...] skin without rash, lesions, wounds or petechiae. Negative lymph node and spleen exam. ALLERGIES: ALLERGIES No Known Allergies MEDICATIONS: BRILINTA 90 mg tablet Take 1 tablet by mouth every 12 hours. magnesium oxide (MAG-OX) 400 mg (241.3 mg magnesium) tablet Take 400 mg by mouth. rosuvastatin (CRESTOR) 20 mg tablet (more content not included)... [facility] 01-16-2024 Instructions Faraz Beckham MD - 01/16/2024 2:33 PM EDT RTC in 6 months, with labs same day. documented in this encounter [facility] 09-03-2023 History of Present illness Narrative Ila Jude Bob Date of visit: 09/03/2023 Date of : 1945 Age: 78 y.o. Patient Active Problem List Diagnosis Coronary artery disease involving northwestern shoshone coronary artery of northwestern shoshone heart without angina pectoris Abnormal result of cardiovascular function study, unspecified Hypertension Type 2 diabetes mellitus 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 ([facility]) Status post angioplasty with stent PAD (peripheral artery disease) ([facility]) Claudication ([facility]) Bilateral carotid artery stenosis Mixed hyperlipidemia Asymptomatic bradycardia NSTEMI (non-ST elevated myocardial infarction) ([facility]) No Known Allergies Current Outpatient Medications Medication [...] mg total) by mouth in the morning. rcnqzibn-jclp-MS-calcium &mins (THERAGRAN-M) 9 mg iron-400 mcg tablet [...] states needs ppm imp - per [facility] with ep myles while albina lindsey in office - [facility] w pt History of Present Illness Ila [...] work 30 hours per week for the [employer]. Past Medical History: Diagnosis Date Abnormal result of cardiovascular function study, unspecified Coronary atherosclerosis due to calcified coronary lesion Dental disease full dentures Diabetes mellitus ([facility]) Diabetes mellitus type 2, controlled ([facility]) Hyperlipidemia Hypertension Sleep apnea bipap Visual impairment No data recorded No data recorded No data recorded Past Surgical History: Procedure Laterality Date ANGIOPLASTY Bilateral 12/2020 legs CARDIAC CATHETERIZATION 2016 stents x2 Cardiac catheterization N/A 04/07/2023 Performed by Tayler Corey MD at [facility] CARDIAC CATH LABS COLONOSCOPY N/A 12/26/2022 Performed by Chino Raza DO at [facility] Coronary angiogram only N/A 04/07/2023 Performed by Tayler Corey MD at [facility] CARDIAC CATH LABS DAVINCI REPAIR HERNIA INGUINAL Left 11/06/2021 Performed by Chino Raza DO at [facility] drug eluting stent right coronary artery N/A 04/07/2023 Performed by Tayler Corey MD at [facility] CARDIAC CATH LABS SKIN BIOPSY Family [...] Cardiac Electrophysiology 2. Coronary artery disease involving northwestern shoshone coronary artery of northwestern shoshone heart without angina pectoris 3. Hypertension, unspecified type 4. NSTEMI (non-ST elevated myocardial infarction) ([facility]) Sinus node dysfunction ASCVD/PCI 2015, March 2023 Preserved LVEF Peripheral artery disease [...] Referring Physician: Debbie Gonzalez MD [address] [place] [address] OXANA Lpoez 09/03/23 1256 documented in this encounter [employer] 08-27-2023 History of Present illness Narrative Ila Morejon Date of visit: 08/27/2023 Date of : 1945 Age: 78 y.o. Patient Active Problem List Diagnosis Coronary artery disease involving northwestern shoshone coronary artery of northwestern shoshone heart without angina pectoris Abnormal result of cardiovascular function study, unspecified Hypertension Type 2 diabetes mellitus 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 ([facility]) Status post angioplasty with stent PAD (peripheral artery disease) ([facility]) Claudication ([facility]) Bilateral carotid artery stenosis Mixed hyperlipidemia Asymptomatic bradycardia NSTEMI (non-ST elevated myocardial infarction) ([facility]) No Known Allergies Current Outpatient Medications Medication [...] mg total) by mouth in the morning. mokjsujr-grbz-OZ-calcium &mins (THERAGRAN-M) 9 mg iron-400 mcg tablet [...] lesion Dental disease full dentures Diabetes mellitus ([facility]) Diabetes mellitus type 2, controlled ([facility]) Hyperlipidemia Hypertension Sleep apnea bipap Visual impairment No data recorded No data recorded No data recorded Past Surgical History: Procedure Laterality Date ANGIOPLASTY Bilateral 12/2020 legs CARDIAC CATHETERIZATION 2016 stents x2 Cardiac catheterization N/A 04/07/2023 Performed by Tayler Corey MD at [facility] CARDIAC CATH LABS COLONOSCOPY N/A 12/26/2022 Performed by Chino Raza DO at [facility] Coronary angiogram only N/A 04/07/2023 Performed by Tayler Coery MD at [facility] CARDIAC CATH LABS DAVINCI REPAIR HERNIA INGUINAL Left 11/06/2021 Performed by Chino Raza DO at [facility] drug eluting stent right coronary artery N/A 04/07/2023 Performed by Tayler Corey MD at [facility] CARDIAC CATH LABS SKIN BIOPSY Family [...] by mouth 3 (three) times a day. hnyipbjp-kkxd-BO-calcium &mins (THERAGRAN-M) 9 mg iron-400 mcg tablet [...] Referring Physician: Cruzito Mcgrath MD [address] [place] [address] documented in this encounter [facility] 08-26-2023 Miscellaneous Notes Called patient to remind them to bring their most current copy of their medication list with them to their appt. Patient verbalizes understanding. documented in this encounter [facility] 08-26-2023 Telephone encounter Note Called patient to remind them to bring their most current copy of their medication list with them to their appt. Patient verbalizes understanding. [facility] 08-04-2023 History of Present illness Narrative Patient noted to have a history of bradycardia Scheduled pt for 48 HM on 08/05/23 at 9am. Made appt in the [place] office for 08/27/23 at 2pm. Called pt and he verbalizes understanding.slm documented in this encounter [facility] 08-04-2023 History of Present illness Narrative Cardiac rehab has noted asymptomatic bradycardia with heart rate into the 20s. Holter monitor ordered Patient should have follow-up in the office documented in this encounter [facility] 07-16-2023 Note HNO ID: [id number] Author: Faraz Beckham MD Service: ? Author Type: Physician Type: Progress Notes Filed: 07/16/2023 7:35 PM Note Text: NAME: Ila Morejon CLINIC NO.: [id number] DATE OF SERVICE: July 16, 2023 (Lory) [...] Reverse Chronological Order 04/04/2023 - Admitted to [facility] with NSTEMI Underwent placement [...] Has been sleeping more, especially since the [place]. Updated Visit, December 27, 2022: 13 year [...] D3, 10 mcg (more content not included)... [facility] 12-27-2022 Instructions Faraz Beckham MD - 12/27/2022 2:28 PM EDT RTC in 6 months with labs same day. documented in this encounter [facility] 12-27-2022 History of Present illness Narrative Images from the original note were not included. NAME: Ila Morejon CLINIC NO.: [id number] DATE OF SERVICE: December 27, 2022 (Lory) [...] which included preparing to see the patient, [id number] patient care, completing clinical documentation, obtaining and/or reviewing separately obtained history, performing a medically appropriate examination, counseling and educating the patient/family/caregiver, ordering medications, tests, or procedures, and independently interpreting results (not separately reported). Faraz Beckham MD, [facility] Hematology and Oncology Services Provided at: [place], [place] CC: Cruzito Mcgrath MD ([facility]) [address] [facility] [address] documented in this encounter [facility] 06-27-2022 Instructions Faraz Beckham MD - 06/27/2022 5:37 PM EST Keep prior documented in this encounter [facility] 06-27-2022 History of Present illness Narrative Images from the original note were not included. NAME: Ila Morejon CLINIC NO.: [id number] DATE OF SERVICE: June 27, 2022 (Lory) [...] CPE Hematology and Oncology Services Provided at: [place], [place] CC: Cruzito Mcgrath MD (Dr) [address] [facility] [address] documented in this encounter [facility] 06-27-2022 Nurse Note Clinical questionnaires incomplete due to phone call. Miryam Gunter MA documented in this encounter [facility] 06-21-2022 Instructions Faraz Beckham MD - 06/21/2022 3:40 PM EST Phone call next week with results RTC in 6 months with labs same day. documented in this encounter [facility] 06-21-2022 History of Present illness Narrative Images from the original note were not included. NAME: Ila Morejon CLINIC NO.: [id number] DATE OF SERVICE: June 21, 2022 Referring [...] which included preparing to see the patient, [id number] patient care, completing clinical documentation, obtaining and/or reviewing separately obtained history, performing a medically appropriate examination, counseling and educating the patient/family/caregiver, ordering medications, tests, or procedures, and independently interpreting results (not separately reported). Faraz Beckham MD, [facility] Hematology and Oncology Services Provided at: [place], [place] CC: Cruzito Mcgrath MD ([facility]) [address] [facility] [address] documented in this encounter [facility] Evaluation note No assessment inform ation [facility] Evaluation note Diagnosis Lymphocytosis- Primary Lymphocytosis (symptomatic) [facility] Diagnosis CLL (chronic lymphocytic leukemia) (HCC)- Primary Chronic lymphoid leukemia, without mention of having achieved remission Large granular lymphocytosis Lymphocytosis (symptomatic) [facility]* Diagnosis CLL (chronic lymphocytic leukemia) (HCC)- Primary Chronic lymphoid leukemia, without mention of having achieved remission Large granular lymphocytosis Lymphocytosis (symptomatic) Stage 3 chronic kidney disease, unspecified whether stage 3a or 3b CKD (HCC) Type 2 diabetes mellitus 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, unspecified whether alf insulin use (HCC) [facility]* Diagnosis Bradycardia- Primary Other specified cardiac dysrhythmias [facility]* Diagnosis History of coronary angioplasty with insertion of stent- Primary Pulmonary hypertension (CMS-HCC) Other chronic pulmonary heart diseases Primary hypertension Unspecified essential hypertension Hx of hyperlipidemia Sinus pause documented [facility] this encounter [facility]* Diagnosis Coronary artery disease involving northwestern shoshone coronary artery of northwestern shoshone heart without angina pectoris- Primary Sinus pause Hypertension, unspecified type NSTEMI (non-ST elevated myocardial infarction) ([facility]) Acute myocardial infarction, subendocardial infarction, episode of care unspecified documented in this encounter [facility]* Diagnosis CLL (chronic lymphocytic leukemia) (HCC)- Primary Chronic lymphoid leukemia, without mention of having achieved remission Large granular lymphocytosis Lymphocytosis (symptomatic) Stage 3 chronic kidney disease, unspecified whether stage 3a or 3b CKD (HCC) [facility] on filedocumented in this encounterProGood [facility] SystemInstructionsNot on filedocumented in this encounterCommunity [facility] SystemInstructionsNot on filedocumented in this encounterProGood [facility]ar[facility] SystemInstructionsNot on filedocumented in this encounterCommunity [facility] System InstructionsNot on filedocumented in this encounterCommunity [facility] Medical Center SystemReason for referral (narrative)* Consultation (Routine) - Pending Review Specialty Diagnoses / Procedures Referred By Lynne paniagua Referred To Contact Cardiology Diagnoses Sinus pause Debbie Gonzalez MD [address] [place] [address] Jerry An MD [address] [place] [address] [address] Referral ID Status Reason Start Date Expiration Date Visits Requested Visits Authorized [id number] Pending Review Specialty Services Required 08/27/2023 08/26/2024 1 1 [facility] for visit Narrative* Consultation (Routine) - Pending Review Specialty Diagnoses / Procedures Referred By Lynne paniagua Referred To Contact Cardiac Rehabilitation Diagnoses S/P drug eluting coronary stent placement Procedures [facility] - [facility] - [place], [place] Tayler Corey MD [address] [place] [address] [facility] Cardiac Rehab Billing [address] [place] [address] Referral ID Status Reason Start Date Expiration Date V isits Requested Visits Authorized [id number] Pending Review 04/07/2023 04/06/2024 36 36 [facility] Chief Complaint and Reason for Visit Chief Complaint Z01.818 I70.213 Chief Complaint Unknown Advance Directives No Advanced Directives Records Found Advance Directive Response Recorded Date/ Time Advance Directives No January 01 4:38pm Documents on File Type Date Recorded Patient [employer] Expl anation Durable Power of Head [employer] 04/14/2023 3:27 PM Living Will 04/14/2023 3:19 PM Latest Code Status on File Code Status Date Activated Date Inactivated Comments Full Code 04/05/2023 2:40 PM 04/08/2023 6:56 PM Documents on File Type Date Recorded Patient [employer] anation Durable Power of Head [employer] 04/14/2023 3:27 PM Living Will 04/14/2023 3:19 [...] Holter monitor 24-48 hour Wayne Donald MD [address] [place] [address] Referral ID Status Reason Start Date Expiration Date V isits Requested Visits Authorized [id number] Pending Review 08/04/2023 08/03/2024 1 1 Additional [...] and content) DATE CREATED AUTHOR 06/10/2022 [facility] DATE CREATED AUTHOR 'S ORGANIZ ATION 09/05/2023 [facility] DATE CREATED AUTHOR AUTHOR'S ORGANIZ ATION 01/10/2024 [facility] dical [facility] DATE CREATED AUTHOR AUTHOR'S ORGANIZ ATION 01/15/2024 [facility] ysician [facility] DATE CREATED AUTHOR AUTHOR'S ORGANIZ ATION 01/18/2024 [facility] DATE CREATED AUTHOR AUTHOR'S ORGANIZ ATION 02/26/2024 [facility] Source Comments (unrecognize d section and content) In the event this informatio n is protected by the Federal Confidentiality of Alcohol and Drug Abuse Patient Records regulations: The Federal rules restrict any use of the information to criminally investigate or prosecute any alcohol or drug abuse patient.[facility] the event this information is protected by the Federal Confidentiality of Alcohol and Drug Abuse Patient Records regulations: The Federal rules restrict any use of the information to criminally investigate or prosecute any alcohol or drug abuse patient.[facility] the event this information is protected by the Federal Confidentiality of Alcohol and Drug Abuse Patient Records regulations: The Federal rules restrict any use of the information to criminally investigate or prosecute any alcohol or drug abuse patient.[facility] the event this information is protected by the Federal Confidentiality of Alcohol and Drug Abuse Patient Records regulations: The Federal rules restrict any use of the information to criminally investigate or prosecute any alcohol or drug abuse patient.[facility] the event this information is protected by the Federal Confidentiality of Alcohol and Drug Abuse Patient Records regulations: The Federal rules restrict any use of the information to criminally investigate or prosecute any alcohol or drug abuse patient.[facility] Reason for Visit (unrecogniz ed section and content) Reason Comments leukocytosis Reason Comments Established Patient Reason Comments CLL Reason Comments Follow-up OV F/U 1 MO BRADYCAR FUNMILAYO, HM DONE PER LLD SCHED W/PT Reason Comments New Patient ov (consult) per MS sinus pause states needs ppm imp - per [facility] with ep myles while ep md in office - [facility] w pt Specialty Diagnoses / Procedures Referred By Lynne t Referred To Contact Cardiology Diagnoses Sinus pause Debbie Gonzalez MD [address] [place] [address] Jerry An MD [address] [place] [address] Referral ID Status Reason Start Date Expiration Date Visits Requested Visits Authorized [id number] Pending Review Specialty Services Required 08/27/2023 08/26/2024 1 1 Reason Comments Leukemia Care Teams (unrecognized sec tion and content) Manufacturing Development Engineer Relationship Specialty Start Date End Date Cruzito Mcgrath [address] [place] [address] PCP - General Family Medicine 06/21/22 Manufacturing Development Engineer Relationship Specialty Start Date End Date Cruzito Mcgrath [address] [place] [address] PCP - General Family Medicine 06/21/22 Manufacturing Development Engineer Relationship Specialty Start Date End Date Cruzito Mcgrath [address] [place] [address] PCP - General Family Medicine 06/21/22 Manufacturing Development Engineer Relationship Specialty Start Date End Date Cruzito Mcgrath MD [address] [facility] [place] [address] PCP - General Family Medicine 04/19/21 Manufacturing Development Engineer Relationship Specialty Start Date End Date Cruzito Mcgrath MD [address] [place] [address] PCP - General Family Medicine 04/19/21 Manufacturing Development Engineer Relationship Specialty Start Date End Date Cruzito Mcgrath MD [address] [facility] [facility] [place] [address] PCP - General Family Medicine 04/19/21 Manufacturing Development Engineer Relationship Specialty Start Date End Date Cruzito Mcgrath MD [address] [place] [address] PCP - General Family Medicine 04/19/21 Manufacturing Development Engineer Relationship Specialty Start Date End Date Cruzito Mcgrath MD [address] [place] [address] PCP - General Family Medicine 04/19/21 Manufacturing Development Engineer Relationship Specialty Start Date End Date Cruzito Mcgrath MD [address] [facility] [place] [address] PCP - General Family Medicine 04/19/21 Manufacturing Development Engineer Relationship Specialty Start Date End Date Cruzito Mcgrath MD [address] [facility] [place] [address] PCP - General Family Medicine 04/19/21 Manufacturing Development Engineer Relationship Specialty Start Date End Date Cruzito Mcgrath MD [address] [facility] [place] [address] PCP - General Family Medicine 04/19/21 Manufacturing Development Engineer Relationship Specialty Start Date End Date Cruzito Mcgrath MD [address] [facility] [place] [address] PCP - General Family Medicine 04/19/21 Manufacturing Development Engineer Relationship Specialty Start Date End Date Cruzito Mcgrath MD [address] [facility] [place] [address] PCP - General Family Medicine 04/19/21 Manufacturing Development Engineer Relationship Specialty Start Date End Date Cruzito Mcgrath MD [address] [facility] [place] [address] PCP - General Family Medicine 04/19/21 Manufacturing Development Engineer Relationship Specialty Start Date End Date Cruzito Mcgrath MD [address] [facility] [place] [address] PCP - General Family Medicine 04/19/21 Manufacturing Development Engineer Relationship Specialty Start Date End Date Cruzito Mcgrath MD [address] [facility] [place] [address] PCP - General Family Medicine 04/19/21 Team Status: Inactive Member Role Status Dates Arminda Valverde DO Attending Provider Active Sta rt: December 27, 2023 End: December 27, 2023 Manufacturing Development Engineer Relationship Specialty Start Date End Date Cruzito Mcgrath [address] [place] [address] PCP - General Family Medicine 06/21/22 FOR RECORDS PERTAINING TO PATIENTS WHO ARE [...] BE BASED ON THE PRIMARY CLINICAL RECORDS. [facility] [employer] [facility]. provides no warranty or guarantee of the accuracy or completeness of information in this document.
== END 2024-02-27 10:20 | disposition home or self-care (01) ==
LOC: RAD 10:21
PROVIDERS: PCP Family Medicine; Visit Provider Family Medicine
DX: M51.36 Other intervertebral disc degeneration, lumbar region (principal)
CPT/HCPCS: 72100

== ENCOUNTER 2024-03-19 08:14 | Outpatient (OUT) | payer MEDICARE, SELFPAY ==
--- NOTE | 2024-03-19 08:17 | MR_ITS ---
[place] [id number] Patient Name: ILA MOREJON MRN: [id number] date: 1945 Sex: M Assigned Patient Location: MRI Current Patient Location: Accession/Order Number: [id number] Exam Date: 03/19/2024 08:35 Report Date: 03/23/2024 07:50 At the request of: AMARIS MCGRATH Procedure: MR lumbar spine wo con MRI lumbar spine without contrast, 03/19/2024. HISTORY: Low back pain. Pain in left leg. Weakness. COMPARISON: None. TECHNIQUE: Multiplanar, multisequence MRI imaging of the lumbar spine without contrast. FINDINGS: Normal alignment. No acute compression fractures. Signal in the bone marrow spaces is appropriate. No bone marrow edema or suspicious osseous lesions. L5-S1, mild degenerative disc disease. There is a shallow broad-based protrusion. No central spinal canal stenosis or nerve root compression. No significant foraminal narrowing. L4-L5, moderate facet arthropathy with facet hypertrophy. There is severe degenerative disc disease most severe on the left side of the disc space. Disc space narrowing and facet hypertrophy result in severe left neural foraminal narrowing. No foraminal narrowing on the right. Disc bulge mildly effaces the thecal sac. Mild spinal canal stenosis. L3-L4, mild degenerative disc disease. Disc bulge and endplate osteophyte complex in the right foramen result in moderate right neural foraminal narrowing. There is mild effacement of the right lateral recess. No central canal stenosis. No foraminal narrowing on the left. L2-L3, moderate facet arthropathy on the right. Mild degenerative disc disease. No spinal stenosis. No foraminal narrowing. L1-L2, mild facet arthropathy. No spinal stenosis or foraminal narrowing. No abnormal signal in the conus medullaris. No paraspinal masses. MR/MR lumbar spine wo con IMPRESSION: 1. Normal alignment. No acute compression fracture. 2. At L4-L5, there is severe degenerative disc disease most severe on the left side of the disc space. Disc space narrowing and left foraminal osteophyte results in severe left foraminal narrowing. Mild spinal canal stenosis. 3. Moderate right neural foraminal narrowing at L3-L4. Electronically authenticated by: JOANA MCKOY Date: 03/23/2024 07:50
--- OUTSIDE RECORDS SUMMARY | 2024-03-19 08:25 | XMS_ITS | CCD ---
Author Organization [facility] Care Team Providers Care Dishwasher Busser Name Role Phone Cruzito Mcgrath Primary Care Provider Luiz Glass Attending Provider [phone] ALCIDES, DR CRUZITO Yan Admitting Unavailable NADERER, DR CRUZITO Yan Attending Unavailable NADERER, DR CRUZITO Yan Primary Care Unavailable NADERER, DR CRUZITO Yan Consulting Unavailable NADERER, DR CRUZITO Yan Admitting Unavailable NADERER, DR CRUZITO Yan Attending Unavailable NADERER, DR CRUZITO Yan Primary Care Unavailable NADERER, DR CRUZITO Yan Consulting Unavailable Unavailable Primary Care Provider Unavailabl e NadereCruzito ramires Primary Care Provider [phone] Cruzito Mcgrath MD Primary Care Provider [phone] GENEVA SANDERS Attending Unavail able DEBBIE GONZALEZ Referring Unavailable LURDESERER, CRUZITO Primary Care Unavailable DO Arminda Valverde Attending Provider Cruzito Mcgrath Primary Care Provider FARAZ BECKHAM Attending Unavailable CRUZITO MCGRATH Primary Care Unavailable ABHYANKAR, FARAZ Referring Unavailable NADERER, CRUZITO Yan Primary Care Unavailable ABHYANKAR, FARAZ Referring Unavailable NADERER, CRUZITO Yan Primary Care Unavailable ABHYANKAR, FARAZ Referring Unavailable ABHYANKAR, FARAZ Attending Unavailable CRUZITO MCGRATH Primary Care Unavailable ABHYANKAR, FARAZ Referring Unavailable Arminda Valverde Attending Unavailable Arminda Valverde Admitting Unavailable TAYLER COREY Referring Unavailabl e NADERER, CRUZITO Primary Care Unavailable TAYLER COREY Referring Unavailabl e NADERER, CRUZITO Primary Care Unavailable TAYLER COREY Referring Unavailabl e NADERER, CRUZITO Primary Care Unavailable LEORA, TAYLER R Referring Unavailabl e NADERER, CRUZITO Primary Care Unavailable NADERER, CRUZITO Referring Unavailable NADERER, CRUZITO Primary Care Unavailable LEORA, TAYLER R Referring Unavailabl e NADERER, CRUZITO Primary Care Unavailable LEORA, TAYLER R Referring Unavailabl e NADERER, CRUZITO Primary Care Unavailable JUDAH COSTELLO Attending Unavailable JUDAH COSTELLO Referring Unavailable NADERER, CRUZITO Primary Care Unavailable NADERER, CRUZITO Primary Care Unavailable MISTRY, DANIEL Attending Unavailable MISTRY, DANILE Attending Unavailable MSITRY, DANIEL Referring Unavailable NADERER, CRUZITO Primary Care Unavailable LEORA, TAYLER R Referring Unavailabl e NADERER, CRUZITO Primary Care Unavailable LEORA, TAYLER R Referring Unavailabl e NADERER, CRUZITO Primary Care Unavailable WAYNE DONALD Attending Unavailable WAYNE DONALD Referring Unavailable NADERER, CRUZITO Primary Care Unavailable LEORA, TAYLER R Referring Unavailabl e NADERER, CRUZITO Primary Care Unavailable LEORA, TAYLER R Referring Unavailabl e NADERER, CRUZITO Primary Care Unavailable LEORA, TAYLER R Referring Unavailabl e NADERER, CRUZITO Primary Care Unavailable LEORA, TAYLER R Referring Unavailabl e NADERER, CRUZTIO Primary Care Unavailable LEORA, TAYLER R Referring [...] Referring Unavailable NADERER, CRUZITO Primary Care Unavailable LEORA, TAYLER R Referring Unavailabl e NADERER, CRUZITO Primary Care Unavailable LEORA, TAYLER R Referring Unavailabl e NADERER, CRUZITO Primary Care Unavailable ALCIDES, CRUZITO Attending Unavailable LURDESERECoral, CRUZITO Attending Unavailable ALCIDES, CRUZITO Attending Unavailable BRAD STINSON Attending Unavailable NADERER, CRUZITO Attending Unavailable NADERER, CRUZITO Attending Unavailable JEROMY MEJIA Attending Unavailable CRUZITO MCGRATH Referring Unavailable EMELY CHRISTIAN Attending Unavailable Medications Current Medications Medication Drug Class(es) Dates Sig (Normalized) Sig (Original) amLODIPine 10 mg oral tablet (18 sources) Dihydropyridine Calcium Channel Veronica Start: 05-09-2023 [...] 500 mg by mouth daily with breakfast. ldtbjzug-faeb-RT-calc ium &mins (THERAGRAN-M) 9 mg iron-400 mcg tablet (2 sources) nzvqlyvp-mowe-VR -gerry cium &mins (THERAGRAN-M) 9 mg iron-400 [...] Active 20 MG PO Daily 90 January 021 12:00am Start: 01-02-2021 End: 01-02-2021 take 10 [...] 0 Active take 1 capsule by mo ut once [...] Problem Date Documented Da te Episodic/Chronic Acute and unspecified renal failure (1 source) Acute kidney failure, unspecified; Translations: [Acute kidney failure, unspecified] Onset: 03-05-2024 Episodic Acute myocardial infarction (16 sources) Myocardial infarction; Translations: [Non-ST elevation (NSTEMI) myocardial infarction] Onset: 04-05-2023 04-05-2023 Chronic Cardiac dysrhythmias (16 sources) Bradycardia, unspecified; Translations: [Other specified cardiac dysrhythmias] Onset: 11-12-2022 11-12-2022 Episodic Chronic kidney disease (4 sources) Chronic kidney disease stage 3; Translations: [Stage 3 chronic kidney disease, unspecified whether stage 3a or 3b CKD (HCC)] Onset: 01-04-2023 Chronic Conduction disorders (4 sources) Sinus node dysfunction; Translations: [Other specified heart block] Onset: 08-27-2023 08-27-2023 Chronic Coronary atherosclerosis and other heart disease (16 sources) Coronary arteriosclerosis; Translations: [Atherosclerotic heart disease of hopi coronary artery without angina pectoris] Onset: 11-12-2022 11-12-2022 Chronic Diabetes mellitus with complications (20 sources) Type 2 diabetes mellitus with hyperglycemia; Translations: [Type 2 diabetes mellitus with peripheral angiopathy] Onset: 12-06-2021 Chronic Diabetes mellitus without complication (1 source) Hyperglycemia, unspecified; Translations: [Hyperglycemia, unspecified] Onset: 03-05-2024 Episodic Diseases of white blood cells (11 sources) Elevated white blood cell count, unspecified; Translations: [Lymphocytosis] Onset: 06-06-2022 Chronic Disorders of lipid metabolism (15 sources) Hyperlipidemia, unspecified; Translations: [Mixed hyperlipidemia] Onset: 10-20-2020 11-12-2022 Chronic Essential hypertension (19 sources) Essential (primary) hypertension; Translations: [Hypertensive disorder] Onset: 06-08-2022 11-12-2022 Chronic Fluid and electrolyte disorders (1 source) Dehydration; Translations: [Dehydration] Onset: 03-05-2024 Episodic Leukemias (6 sources) Chronic lymphoid leukemia, disease; [...] 10-21-2019 11-12-2022 Chronic Other aftercare (1 source) stock patcher (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) use of insulin; Translations: [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 PLACER 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 USE OF INSULIN] Onset: 06-08-2022 Episodic Other aftercare (1 source) Other beach expert (current) drug therapy; Translations: [OTH INTERMEDIATE CURRENT DRUG THERAPY] Onset: 06-08-2022 Episodic Other [...] [Pulmonary hypertension, unspecified] Onset: 08-27-2023 08-26-2023 Chronic Syncope (1 source) Syncope and collapse; Translations: [Syncope and collapse] Onset: 03-05-2024 Episodic Unclassified (1 source) New Patient Onset: 09-03-2023 Unclassified (1 source) Weakness - Generalized Onset: 03-05-2024 Unclassified (1 source) EMS Onset: 03-05-2024 Past or Other Problems Problem Classification Problem Date Documented Da te Episodic/Chronic Coronary atherosclerosis and other heart disease (1 [...] Name Value Interpretation Reference Range Facility CBC AND AUTO DIFFon 03-05-20 24 ABSOLUTE BASOPHIL 0.2 X10E9/L Normal 0.0-0.2 [facility] Comment on above: Performed By: #### C ABIGAIL, CMP, 76685-4, 19063-8, 84652-5 #### [facility] ([id number]) [address] [place] [address] 76758 Basophils/100 WBC (Bld) 1.0 % Normal [facility] Comment on above: Performed By: #### C ABIGAIL, CMP, , 37293-2, 58018-7 #### [facility] ([id number]) [address] [place] [address] 62325 Erythrocyte distribution width (RBC) [Ratio] 13.6 % Normal 11.5-15.0 [facility] Comment on above: Performed By: #### Rose Marie HAYES CMP, , 98030-0, 42345-9 #### [facility] ([id number]) [address] [place] [address] 68613 Hematocrit (Bld) [Volume fraction] 30.4 % Low 39-49 [facility] Comment on above: Performed By: #### Rose Marie HAYES CMP, , 50990-4, 44703-1 #### [facility] ([id number]) [address] [place] [address] 82212 Hemoglobin (Bld) [Mass/Vol] 10.5 g/dL Low 13.0-17.0 [facility] Comment on above: Performed By: #### Rose Marie HAYES, CMP, , 33774-4, 50314-9 #### [facility] ([id number]) [address] [place] [address] 12241 Lymphocytes (Bld) [#/Vol] 8.6 10*3/uL High 1.0-3.5 [facility] Comment on above: Performed By: #### Rose Marie HAYES CMP, 44668-2, 30852-9, 26382-3 #### [facility] ([id number]) [address] [place] [address] 13678 Lymphocytes/100 WBC (Bld) 47.0 % Normal [facility] Comment on above: Performed By: #### C BCA, CMP, 64565-3, 58298-5, 19325-8 #### [facility] ([id number]) [address] [place] [address] 50019 MCH (RBC) [Entitic mass] 31.2 pg Normal 27-34 [facility] Comment on above: Performed By: #### C BCA, CMP, , 19603-4, 42611-0 #### [facility] ([id number]) [address] [place] [address] 98759 MCHC (RBC) [Mass/Vol] 34.7 g/dL Normal 32-36 [facility] Comment on above: Performed By: #### C BCA, CMP, , 98149-9, 14259-8 #### [facility] ([id number]) [address] [place] [address] 94840 MCV (RBC) [Entitic vol] 90 fL Normal 80-100 [facility] Comment on above: Performed By: #### Rose Marie BCA, CMP, , 72859-8, 09874-8 #### [facility] ([id number]) [address] [place] [address] 41792 Monocytes (Bld) [#/Vol] 0.7 10*3/uL Normal 0-0.9 [facility] Comment on above: Performed By: #### C BCA, CMP, 93120-5, 79941-6, 19451-2 #### [facility] ([id number]) [address] [place] [address] 30645 Monocytes/100 WBC (Bld) 4.0 % Normal [facility] Comment on above: Performed By: #### Rose Marie BCA, CMP, 03330-8, 50522-6, 51749-1 #### [facility] ([id number]) [address] [place] [address] 41530 Neutrophils (Bld) [#/Vol] 8.7 10*3/uL High 1.5-6.6 [facility] Comment on above: Performed By: #### C BCA, CMP, 71458-3, 91281-5, 00608-9 #### [facility] ([id number]) [address] [place] [address] 98953 Platelet mean volume (Bld) [Entitic vol] 8.9 fL Normal 7-12 [facility] Comment on above: Performed By: #### Rose Marie BCA, CMP, 17889-8, 46287-8, 65419-1 #### [facility] ([id number]) [address] [place] [address] 02482 Platelets (Bld) [#/Vol] 165 10*3/uL Normal 150-450 [facility] Comment on above: Performed By: #### Rose Marie BCA, CMP, 84548-0, 43470-2, 27039-3 #### [facility] ([id number]) [address] [place] [address] 86186 RBC COUNT 3.38 X10E12/L Low 4.10-5.70 [facility] Comment on above: Performed By: #### Rose Marie BCA, CMP, 76378-3, 91763-1, 53004-5 #### [facility] ([id number]) [address] [place] [address] 59569 RBC morphology finding Nom (Bld) NORMAL Normal [facility] Comment on above: Performed By: #### Rose Marie BCA, CMP, 20124-4, 73731-9, 31289-6 #### [facility] ([id number]) [address] [place] [address] 44570 SEG NEUTROPHIL 48.0 % Normal [facility] Comment on above: Performed By: #### C BCA, CMP, 47134-6, 91431-6, 73575-3 #### [facility] ([id number]) [address] [place] [address] 67740 WBC (Bld) [#/Vol] 18.2 10*3/uL High 4.0-11.0 [facility] Comment on above: Performed By: #### C BCA, CMP, 36301-8, 53708-3, 44012-4 #### [facility] ([id number]) [address] [place] [address] 66971 COMPREHENSIVE METABOLIC PANE Woody 03-05-2024 Albumin [Mass/Vol] 3.4 g/dL Normal 3.2-5.3 [facility] Comment on above: Performed By: #### C BCA, CMP, 17696-8, 57202-0, 34679-6 #### [facility] ([id number]) [address] [place] [address] 61476 ALP [Catalytic activity/Vol] 73 U/L Normal 39-130 [facility] Comment on above: Performed By: #### C BCA, CMP, 01789-7, 67847-3, 57312-7 #### [facility] ([id number]) [address] [place] [address] 49465 ALT [Catalytic activity/Vol] 22 U/L Normal 0-40 [facility] Comment on above: Performed By: #### C BCA, CMP, 42632-6, 15581-9, 31632-8 #### [facility] ([id number]) [address] [place] [address] 80877 Anion gap [Moles/Vol] 6 mmol/L Normal 5-15 [facility] Comment on above: Performed By: #### C BCA, CMP, 24643-4, 26345-8, 78683-2 #### [facility] ([id number]) [address] [place] [address] 93823 AST [Catalytic activity/Vol] 25 U/L Normal 0-41 [facility] Comment on above: Performed By: #### C BCA, CMP, 75956-0, 40835-1, 47871-9 #### [facility] ([id number]) [address] [place] [address] 05505 Bilirubin [Mass/Vol] 0.8 mg/dL Normal 0.3-1.2 [facility] Comment on above: Performed By: #### C BCA, CMP, 56862-4, 54718-0, 48119-5 #### [facility] ([id number]) [address] [place] [address] 68740 Calcium [Mass/Vol] 8.6 mg/dL Normal 8.5-10.5 [facility] Comment on above: Performed By: #### C BCA, CMP, 00253-7, 10353-5, 88241-0 #### [facility] ([id number]) [address] [place] [address] 27251 Chloride [Moles/Vol] 106 mmol/L Normal 98-109 [facility] Comment on above: Performed By: #### C BCA, CMP, 80630-2, 23307-5, 37045-0 #### [facility] ([id number]) [address] [place] [address] 33182 CO2 [Moles/Vol] 21 mmol/L Low 22-32 [facility] Comment on above: Performed By: #### C BCA, CMP, 36190-0, 53921-6, 72756-9 #### [facility] ([id number]) [address] [place] [address] Creatinine [Mass/Vol] 1.83 mg/dL High 0.70-1.20 [facility] Comment on above: Result Comment: METH OD TRACEABLE TO IDMS STANDARD Performed By: #### C LEÓN HAYES, 44604-4, 46229-3, 06742-8 #### [facility] ([id number]) [address] [place] [address] 28770 GFR/1.73 sq M.predicted among non-blacks MDRD (S/P/Bld) [Vol rate/Area] 38 mL/min/{1.73_m2} Low >59 [facility] Comment on above: Result Comment: Reported eGFR is based on the CKD-EPI 2020 equation that does not use a race coefficient. Performed By: #### C LEÓN HAYES, 08661-9, 54980-9, 08530-2 #### [facility] ([id number]) [address] [place] [address] 45912 Glucose [Mass/Vol] 277 mg/dL High 65-99 [facility] Comment on above: Performed By: #### C ABIGAIL CMP, 40117-2, 84141-0, 03128-2 #### [facility] ([id number]) [address] [place] [address] 43769 Potassium [Moles/Vol] 5.0 mmol/L Normal 3.5-5.0 [facility] Comment on above: Performed By: #### C BCA, CMP, 47097-5, 13840-7, 47335-2 #### [facility] ([id number]) [address] [place] [address] 13383 Protein [Mass/Vol] 5.9 g/dL Low 6.0-8.0 [facility] Comment on above: Performed By: #### C ABIGAIL, CMP, 73291-0, 74047-2, 82196-2 #### [facility] ([id number]) [address] [place] [address] 51187 Sodium [Moles/Vol] 133 mmol/L Low 134-146 [facility] Comment on above: Performed By: #### C BCA, CMP, 21071-6, 01635-1, 07362-3 #### [facility] ([id number]) [address] [place] [address] 23120 Urea nitrogen [Mass/Vol] 35 mg/dL High 5-27 [facility] Comment on above: Performed By: #### C BCA, CMP, 20009-5, 84353-1, 14287-6 #### [facility] ([id number]) [address] [place] [address] 72608 Glucose Glucometer (BldC) [M ass/Vol]on 03-05-2024 Glucose [Mass/Vol] 267 mg/dL High 65-99 [facility] MAGNESIUMon 03-05-2024 Magnesium [Mass/Vol] 2.0 mg/dL Normal 1.8-2.6 [facility] Comment on above: Performed By: #### C BCA, CMP, 61725-5, 07633-3, 73200-2 #### [facility] ([id number]) [address] [place] [address] 20843 Natriuretic peptide B [Mass/ Vol]on 03-05-2024 Natriuretic peptide B (Bld) [Mass/Vol] 440 pg/mL High <100.0 [facility] Comment on above: Performed By: #### C BCA, CMP, 26988-8, 60847-7, 15094-1 #### [facility] ([id number]) [address] [place] [address] 26592 Troponin I.cardiac High sens itivity method [Mass/Vol]on 03-05-2024 1 HOUR TROP I, HIGH SENSITIVITY 15 ng/L Normal <21 [facility] Comment on above: Performed By: #### 8 9579-7 #### [facility] ([id number]) [address] [place] [address] 13553 TROPONIN I, HIGH SENSITIVITY 15 ng/L Normal <21 [facility] Comment on above: Performed By: #### C BCA, CMP, 89656-5, 83688-4, 89624-8 #### [facility] ([id number]) [address] [place] [address] 19994 URN MACROSCOPIC NURon 2023 BILIRUBIN RALPH Negative Normal NEG [facility] Comment on above: Performed By: #### N UM #### [facility] ([id number]) [address] [place] [address] 01374 BLOOD/HGB RALPH Trace Abnormal NEG [facility] Comment on above: Performed By: #### N UM #### [facility] ([id number]) [address] [place] [address] [place] [address] GLUCOSE RALPH 100 mg/dL Abnormal NEG [facility] Comment on above: Performed By: #### N UM #### [facility] ([id number]) [address] [place] [address] 70386 KETONES RALPH Negative Normal NEG [facility] Comment on above: Performed By: #### N UM #### [facility] ([id number]) [address] [place] [address] [place] [address] LEUKOCYTE ESTERASE RALPH Negative Normal NEG [facility] Comment on above: Performed By: #### N UM #### [facility] ([id number]) [address] [place] [address] 51313 NITRITE RALPH Negative Normal NEG [facility] Comment on above: Performed By: #### N UM #### [facility] ([id number]) [address] [place] [address] 16020 PH RALPH 5.5 Normal 5.0-8.5 [facility] Comment on above: Performed By: #### N UM #### [facility] ([id number]) [address] [place] [address] 42323 PROTEIN RALPH >=[address] [facility] Comment on above: Performed By: #### N UM #### [facility] ([id number]) [address] [place] [address] 70202 SPECIFIC GRAVITY RALPH >=1.030 Normal 1.003-1.035 [facility] Comment on above: Performed By: #### N UM #### [facility] ([id number]) [address] [place] [address] 14431 UROBILINOGEN RALPH 0.2 eu/dL Normal <1.1 [facility] Comment on above: Performed By: #### N UM #### [facility] ([id number]) [address] [place] [address] 76260 CBC W Auto Differential pane l (Bld)on 01-16-2024 Basophils (Bld) [#/Vol] 0.17 10*3/uL High <0.11 [facility] Comment on above: Order Comment: Speci men Type: BLOOD SPECIMEN Ordering Facility: [facility] Address: [address] [place] [address] Performed By: #### 5 7021-8 #### [facility] CLIA [id number] [address] [place], [place] [address] [facility] CLIA [id number] [address] [place] [address] [id number] [id number] [place] Basophils/100 WBC (Bld) 1.0 % Normal [facility] Comment on above: Order Comment: Speci men Type: BLOOD SPECIMEN Ordering Facility: [facility] Address: [address] [place] [address] Performed By: #### 5 7021-8 #### [facility] CLIA [id number] [address] LAB CLIA [id number] [address] [place] [address] [place] Differential cell count method Nom (Bld) Manual Normal [facility] Comment on above: Order Comment: Speci men Type: BLOOD SPECIMEN Ordering Facility: [facility] Address: [address] [place] [address] Performed By: #### 5 7021-8 #### [facility] CLIA [id number] [address] [place] [address] LAB CLIA [id number] [address] [place] [address] [place] Eosinophils (Bld) [#/Vol] 0.17 10*3/uL Normal <0.46 [facility] Comment on above: Order Comment: Speci men Type: BLOOD SPECIMEN Ordering Facility: [facility] Address: [address] [place] [address] Performed By: #### 5 7021-8 #### [facility] CLIA [id number] [address] [place] [address] LAB CLIA [id number] [address] [place] [address] [place] Eosinophils/100 WBC (Bld) 1.0 % Normal [facility] Comment on above: Order Comment: Speci men Type: BLOOD SPECIMEN Ordering Facility: [facility] Address: [address] [place] [address] Performed By: #### 5 7021-8 #### [facility] CLIA [id number] [address] [place] [address] LAB CLIA [id number] [address] [place] [address] [place] Erythrocyte distribution width (RBC) [Ratio] 13.4 % Normal 11.5-15.0 [facility] Comment on above: Order Comment: Speci men Type: BLOOD SPECIMEN Ordering Facility: [facility] Address: [address] [place], [place] [address] Performed By: #### 5 7021-8 #### [facility] CLIA [id number] [address] [place] [address] LAB CLIA [id number] [address] [place] [address] [place] Hematocrit (Bld) [Volume fraction] 30.8 % Low 39.0-51.0 [facility] Comment on above: Order Comment: Speci men Type: BLOOD SPECIMEN Ordering Facility: [facility] Address: [address] [place] [address] Performed By: #### 5 7021-8 #### [facility] CLIA [id number] [address] [place] [address] LAB CLIA [id number] [address] [place] [address] [place] Hemoglobin (Bld) [Mass/Vol] 10.6 g/dL Low 13.0-17.0 [facility] Comment on above: Order Comment: Speci men Type: BLOOD SPECIMEN Ordering Facility: [facility] Address: [address] [place] [address] Performed By: #### 5 7021-8 #### [facility] CLIA [id number] [address] [place] [address] LAB CLIA [id number] [address] [place] [address] [place] Lymphocytes (Bld) [#/Vol] 10.02 10*3/uL High 1.00-4.00 [facility] Comment on above: Order Comment: Speci men Type: BLOOD SPECIMEN Ordering Facility: [facility] Address: [address] [place] [address] Performed By: #### 5 7021-8 #### [facility] CLIA [id number] [address] [place] [address] LAB CLIA [id number] [address] [place], [place] [address] [place] Lymphocytes/100 WBC (Bld) 59.0 % Normal [facility] Comment on above: Order Comment: Speci men Type: BLOOD SPECIMEN Ordering Facility: [facility] Address: [address] [place] [address] Performed By: #### 5 7021-8 #### [facility] CLIA [id number] [address] [place] [address] LAB CLIA [id number] [address] [place] [address] [place] MCH (RBC) [Entitic mass] 31.4 pg Normal 26.0-34.0 [facility] Comment on above: Order Comment: Speci men Type: BLOOD SPECIMEN Ordering Facility: [facility] Address: [address] [place] [address] Performed By: #### 5 7021-8 #### [facility] CLIA [id number] [address] [place], [place] [id number] [facility] CLIA [id number] [address] [place] [address] [place] MCHC (RBC) [Mass/Vol] 34.4 g/dL Normal 30.5-36.0 [facility] Comment on above: Order Comment: Speci men Type: BLOOD SPECIMEN Ordering Facility: [facility] Address: [address] [place] [address] Performed By: #### 5 7021-8 #### [facility] CLIA [id number] [address] [place], [place] [id number] [facility] CLIA [id number] [address] [place] [address] [place] MCV (RBC) [Entitic vol] 91.1 fL Normal 80.0-100.0 [facility] Comment on above: Order Comment: Speci men Type: BLOOD SPECIMEN Ordering Facility: [facility] Address: [address] [place] [address] Performed By: #### 5 7021-8 #### [facility] LAB CLIA [id number] [address] [place] [address] LAB CLIA [id number] [address] [place] [address] [place] Monocytes (Bld) [#/Vol] 0.51 10*3/uL Normal <0.87 [facility] Comment on above: Order Comment: Speci men Type: BLOOD SPECIMEN Ordering Facility: [facility] Address: [address] [place] [address] Performed By: #### 5 7021-8 #### [facility] CLIA [id number] [address] [place] [address] LAB CLIA [id number] [address] [place] [address] [place] Monocytes/100 WBC (Bld) 3.0 % Normal [facility] Comment on above: Order Comment: Speci men Type: BLOOD SPECIMEN Ordering Facility: [facility] Address: [address] [place] [address] Performed By: #### 5 7021-8 #### [facility] CLIA [id number] [address] [place] [address] LAB CLIA [id number] [address] [place] [address] [place] Neutrophils (Bld) [#/Vol] 6.11 10*3/uL Normal 1.45-7.50 [facility] Comment on above: Order Comment: Speci men Type: BLOOD SPECIMEN Ordering Facility: [facility] Address: [address] [place] [address] Performed By: #### 5 7021-8 #### [facility] CLIA [id number] [address] [place] [address] LAB CLIA [id number] [address] [place] [address] [place] Neutrophils/100 WBC (Bld) 36.0 % Normal [facility] Comment on above: Order Comment: Speci men Type: BLOOD SPECIMEN Ordering Facility: [facility] Address: [address] [place] [address] Performed By: #### 5 7021-8 #### [facility] LAB CLIA [id number] [address] [place] [address] LAB CLIA [id number] [address] [place] [address] [place] Nucleated RBC (Bld) [#/Vol] 10*3/uL Normal <0.01 [facility] Comment on above: Order Comment: Speci men Type: BLOOD SPECIMEN Ordering Facility: [facility] Address: [address] [place] [address] Performed By: #### 5 7021-8 #### [facility] CLIA [id number] [address] [place] [address] LAB CLIA [id number] [address] [place] [address] [place] Nucleated RBC/100 WBC (Bld) [Ratio] 0.0 /100 WBC Normal [facility] Comment on above: Order Comment: Speci men Type: BLOOD SPECIMEN Ordering Facility: [facility] Address: [address] [place] [address] Performed By: #### 5 7021-8 #### [facility] CLIA [id number] [address] [place] [address] LAB CLIA [id number] [address] [place] [address] [place] Ovalocytes LM Ql (Bld) Few Normal [facility] Comment on above: Order Comment: Speci men Type: BLOOD SPECIMEN Ordering Facility: [facility] Address: [address] [place] [address] Performed By: #### 5 7021-8 #### [facility] CLIA [id number] [address] [place] [address] [facility] CLIA [id number] [address] [place], [place] [address] [place] Platelet mean volume (Bld) [Entitic vol] 10.2 fL Normal 9.0-12.7 [facility] Comment on above: Order Comment: Speci men Type: BLOOD SPECIMEN Ordering Facility: [facility] Address: [address] [place] [address] Performed By: #### 5 7021-8 #### [facility] CLIA [id number] [address] [place] [address] LAB CLIA [id number] [address] [place] [address] [place] Platelets (Bld) [#/Vol] 172 10*3/uL Normal 150-400 [facility] Comment on above: Order Comment: Speci men Type: BLOOD SPECIMEN Ordering Facility: [facility] Address: [address] [place] [address] Performed By: #### 5 7021-8 #### [facility] CLIA [id number] [address] [place] [address] LAB CLIA [id number] [address] [place] [address] [place] Platelets Estimate (Bld) [#/Vol] Adequate Normal [facility] Comment on above: Order Comment: Speci men Type: BLOOD SPECIMEN Ordering Facility: [facility] Address: [address] [place] [address] Performed By: #### 5 7021-8 #### [facility] CLIA [id number] [address] [place] [address] LAB CLIA [id number] [address] [place] [address] [place] Polychromasia LM Ql (Bld) Slight Normal [facility] Comment on above: Order Comment: Speci men Type: BLOOD SPECIMEN Ordering Facility: [facility] Address: [address] [place] [address] Performed By: #### 5 7021-8 #### [facility] CLIA [id number] [address] [place] [address] LAB CLIA [id number] [address] [place] [address] [place] RBC (Bld) [#/Vol] 3.38 10*6/uL Low 4.20-6.00 [facility] Comment on above: Order Comment: Speci men Type: BLOOD SPECIMEN Ordering Facility: [facility] Address: [address] [place] [address] Performed By: #### 5 7021-8 #### [facility] CLIA [id number] [address] [place] [address] LAB CLIA [id number] [address] [place] [address] [place] RBC FRAGMENTS Few Abnormal None Seen [facility] Comment on above: Order Comment: Speci men Type: BLOOD SPECIMEN Ordering Facility: [facility] Address: [address] [place] [address] Performed By: #### 5 7021-8 #### [facility] CLIA [id number] [address] [place] [address] LAB CLIA [id number] [address] [place], [place] [address] [place] RED CELL MORPH Reviewed: see result s of individual morphologies Normal [facility] Comment on above: Order Comment: Speci men Type: BLOOD SPECIMEN Ordering Facility: [facility] Address: [address] [place], [place] [address] Performed By: #### 5 7021-8 #### [facility] CLIA [id number] [address] [place] [address] LAB CLIA [id number] [address] [place], [place] [address] [place] WBC (Bld) [#/Vol] 16.98 10*3/uL High 3.70-11.00 [facility] Comment on above: Order Comment: Speci men Type: BLOOD SPECIMEN Ordering Facility: [facility] Address: [address] [place] [address] Performed By: #### 5 7021-8 #### [facility] CLIA [id number] [address] LAB CLIA [id number] [address] [place] [address] [id number] [place] [address] OF [facility] CNOVSPon 01-16-2024 CNOVSP Visit (SP) Office (HEMASA) ILA MOREJON ([id number]) 1945 M Date Time Provider Department 01/16/24 2:45 PM FARAZ BECKHAM During your visit today, we recorded the following information about you: Temperature Pulse Respiration Blood pressure 97.2 degrees 45/minute 18/minute 132/35 Weight 73.2 kg Faraz Beckham MD 01/16/2024 2:33 PM Signed RTC in 6 months, with labs same day. Faraz Beckham MD 01/16/2024 6:22 PM Signed NAME: Ila Morejon CLINIC NO.: [id number] DATE OF SERVICE: January 16, 2024 (Lory) [...] Reverse Chronological Order 04/04/2023 - Admitted to [facility] with NSTEMI Underwent placement of drug eluting [...] Has been sleeping more, especially since the PA. Updated Visit, December 27, 2022: 13 year [...] lesions, wounds (more content not included)... Normal [facility] Comprehensive metabolic 2000 panelon 01-16-2024 Albumin [Mass/Vol] 3.8 g/dL Low 3.9-4.9 [facility] Comment on above: Order Comment: Speci men Type: BLOOD SPECIMENOrdering Facility: [facility] Address: [facility] [place] [address] Performed By: #### 2 4323-8, 2531-0 ####[facility] LABCLIA [id number] [place] [address] ALP [Catalytic activity/Vol] 84 U/L Normal 38-113 [facility] Comment on above: Order Comment: Speci men Type: BLOOD SPECIMENOrdering Facility: [facility] Address: [address] [place] [address] Performed By: #### 2 4328, 2531-0 ####[facility] LABCLIA [id number] [place] [address] ALT [Catalytic activity/Vol] 34 U/L Normal 10-54 [facility] Comment on above: Order Comment: Speci men Type: BLOOD SPECIMENOrdering Facility: [facility] Address: [address] [place] [address] Performed By: #### 2 4328, 2531-0 ####[facility] LABCLIA [id number] [place] [address] Anion gap [Moles/Vol] 6 mmol/L Low 8-15 [facility] Comment on above: Order Comment: Speci men Type: BLOOD SPECIMENOrdering Facility: [facility] Address: [address] [place] [address] Performed By: #### 2 4323-8, 2531-0 ####[facility] LABCLIA [id number] [place] [address] AST [Catalytic activity/Vol] 26 U/L Normal 14-40 [facility] Comment on above: Order Comment: Speci men Type: BLOOD SPECIMENOrdering Facility: [facility] Address: [address] [place] [address] Performed By: #### 2 4323-8, 2531-0 ####[facility] LABCLIA [id number] [place] [address] Bilirubin [Mass/Vol] 0.4 mg/dL Normal 0.2-1.3 [facility] Comment on above: Order Comment: Speci men Type: BLOOD SPECIMENOrdering Facility: [facility] Address: [address] [place] [address] Performed By: #### 2 4323-8, 2531-0 ####[facility] LABIA [id number] [place] [address] Calcium [Mass/Vol] 9.8 mg/dL Normal 8.5-10.2 [facility] Comment on above: Order Comment: Speci men Type: BLOOD SPECIMENOrdering Facility: [facility] Address: [address] [place] [address] Performed By: #### 2 4323-8, 2531-0 ####[facility] LABIA [id number] [place] [address] Chloride [Moles/Vol] 107 mmol/L Normal 98-107 [facility] Comment on above: Order Comment: Speci men Type: BLOOD SPECIMENOrdering Facility: [facility] Address: [address] [place], [place] [address] Performed By: #### 2 4323-8, 2531-0 ####[facility] LABIA [id number] [place] [address] CO2 [Moles/Vol] 24 mmol/L Normal 22-30 [facility] Comment on above: Order Comment: Speci men Type: BLOOD SPECIMENOrdering Facility: [facility] Address: [address] [place] [address] Performed By: #### 2 4323-8, 2532-0 ####[facility] LABCLIA [id number] [place] [address] Creatinine [Mass/Vol] 1.64 mg/dL High 0.73-1.22 [facility] Comment on above: Order Comment: Speci men Type: BLOOD SPECIMENOrdering Facility: [facility] Address: [address] [place] [address] Performed By: #### 2 4323-8, 2532-0 ####[facility] LABCLIA [id number] [place] [address] Creatinine and Glomerular filtration rate.predicted panel (S/P/Bld) 43 mL/min/1.73m??? Low >=60 [facility] Comment on above: Order Comment: Speci men Type: BLOOD SPECIMENOrdering Facility: [facility] Address: [address] [place] [address] Result Comment: Silvana mated Glomerular Filtration Rate [...] GFR. Performed By: #### 2 4323-8, 2531-0 ####[facility] LABCLIA [id number] [place] [address] Glucose [Mass/Vol] 180 mg/dL High 74-99 [facility] Comment on above: Order Comment: Speci men Type: BLOOD SPECIMENOrdering Facility: [facility] Address: [address] [place] [address] Result Comment: The [place] [employer] (ADA) provides guidance for cutoff [...] Standards of Medical Care in Diabetes 2016, [place] [employer]. Diabetes Care. 2016.39(Suppl 1). Performed By: #### 2 4323-8, 2531-0 ####[facility] LABCLIA [id number] [place] [address] Potassium [Moles/Vol] 5.2 mmol/L High 3.7-5.1 [facility] Comment on above: Order Comment: Speci men Type: BLOOD SPECIMENOrdering Facility: [facility] Address: [address] [place] [address] Performed By: #### 2 43238, 0 ####[facility] LABIA [id number] [place] [address] Protein [Mass/Vol] 6.3 g/dL Normal 6.3-8.0 [facility] Comment on above: Order Comment: Speci men Type: BLOOD SPECIMENOrdering Facility: [facility] Address: [address] [place] [address] Performed By: #### 2 43238, 0 ####[facility] LABIA [id number] [place] [address] Sodium [Moles/Vol] 137 mmol/L Normal 136-144 [facility] Comment on above: Order Comment: Speci men Type: BLOOD SPECIMENOrdering Facility: [facility] Address: [address] [place] [address] Performed By: #### 2 43238, 0 ####[facility] LABIA [id number] [place] [address] Urea nitrogen [Mass/Vol] 29 mg/dL High 9-24 [facility] Comment on above: Order Comment: Speci men Type: BLOOD SPECIMENOrdering Facility: [facility] Address: [address] [place] [address] Performed By: #### 2 4323-8, 2532-0 ####[facility] LABCLIA [id number] [place] [address] Ferritin SerPl-ncon 2023 Ferritin [Mass/Vol] 72.6 ng/mL Normal 30.3-565.7 [facility] Comment on above: Order Comment: Speci men Type: BLOOD SPECIMEN Ordering Facility: [facility] Address: [address] [place] [address] Performed By: #### 5 0190-8, 9, 2275-10, 2284-02 #### [facility] CLIA [id number] [address] [place] [address] [place] Folate SerPl-[facility] 01-16-20 Folate [Mass/Vol] 18.7 ng/mL Normal >4.7 [facility] Comment on above: Order Comment: Speci men Type: BLOOD SPECIMEN Ordering Facility: [facility] Address: [address] [place] [address] Performed By: #### 5 0190-8, 9, 2275-10, 2284-02 #### [facility] CLIA [id number] [address] [place] [address] [place] Iron and Iron binding capaci ty panelon 01-16-2024 Iron [Mass/Vol] 185 ug/dL Normal 41-186 [facility] Comment on above: Order Comment: Speci men Type: BLOOD SPECIMEN Ordering Facility: [facility] Address: [address] [place] [address] Performed By: #### 5 0190-8, 9, 2275-10, 2284-02 #### [facility] CLIA [id number] [address] [place] [address] [place] Iron binding capacity [Mass/Vol] 363 ug/dL Normal 232-386 [facility] Comment on above: Order Comment: Speci men Type: BLOOD SPECIMEN Ordering Facility: [facility] Address: [address] [place] [address] Performed By: #### 5 0190-8, 2131-9, 2275-4, 8 #### [facility] CLIA [id number] [address] [place] [address] [place] Iron/TIBC [Molar ratio] 51.0 % Normal 15.0-57.0 [facility] Comment on above: Order Comment: Speci men Type: BLOOD SPECIMEN Ordering Facility: [facility] Address: [address] [place] [address] Performed By: #### 5 0190-8, 9, 4, 2284-02 #### [facility] CLIA [id number] [address] [place] [address] [place] LDH SerPl-cCncon 01-16-2024 LDH [Catalytic activity/Vol] 182 U/L Normal 135-225 [facility] Comment on above: Order Comment: Speci men Type: BLOOD SPECIMENOrdering Facility: [facility] Address: [address] [place] [address] Performed By: #### 2 4323-8, 2532-0 ####[facility] LABCLIA [id number] [place] [address] Vit B12 SerPl-mCncon 024 Cobalamin (Vitamin B12) [Mass/Vol] 1200 pg/mL Normal 232-1245 [facility] Comment on above: Order Comment: Speci men Type: BLOOD SPECIMEN [facility] Address: [address] [place] [address] Performed By: #### 5 0190-8, 9, 2275-4, 8 #### [facility] CLIA [id number] [address] [place] [address] [facility] Woody 12-27-2023 L Specimen: [id number] Received: 12/29/23 Status: RAMONA Corralkatie Num: [id number] Spec Type: Impression Subm Dr: Arminda Valverde DO Tissues: PATHPER Procedures: PATHREVIEW Age/ Patient Sex Location Account Attending Physician Ila Morejon 78/M LABELL [id number] Arminda Valverde DO SPEC NUM: [id number] RECD: 12/29/23 STATUS: RAMONA CORRALKatie NUM: [id number] JERRY: 12/27/[address]: Arminda Valverde DO ENTERED: 12/29/[address]: Collin Bernal SPEC TYPE: Impression DEPT: JAY Garay ENTERED BY: [id number] RECV BY: [id number] ORDERED: PATHREVIEW ORDERED: PATHREVIEW Pathologist Review Abnormal [...] [id number] Received: 12/29/23 Status: RAMONA [place] Num: [id number] Spec Type: Impression Subm Dr: Arminda Valverde DO Tissues: PATHPER Procedures: PATHREVIEW Patient: Ila Morejon [id number] (Continued) Specimen: [id number] Received: 12/29/23 (Continued) Pathologist Review (Continued) Signed (signature on file) Nicole Askew MD 12/29/23 1731 Specimen: [id number] Received: 12/29/23 Status: RAMONA [place] Num: [id number] Spec Type: Impression Subm Dr: Arminda L Rice, DO Tissues: PATHPER Procedures: PATHREVIEW Patient: Ila Morejon Julianna [id number] (Continued) Specimen: [id number] Received: 12/29/23 (Continued) Pathologist Review (Continued) part of the myelosuppression, including hairy cell leukemia, otherwise is not very apparent in this CBC except mild chronic anemia -If the CBC abnormality continues to persist or progress, further hematology consultation, including flow cytometric assessment of the peripheral blood, may also be suggested as appropriate CPT: 78089 CBC No results available. Specimen: [id number] Received: 12/29/23 Status: RAMONA [place] Num: [id number] Spec Type: Impression Subm Dr: Arminda Valverde DO Tissues: PATHPER Procedures: PATHREVIEW Patient: Ila Morejon [id number] (Continued) Signed (signature on file) Chin-Berto Askew MD 12/29/23 1731 Normal [facility] HGB A1C (GLYCO-HGB)on 2023 Glucose [Mass/Vol] 151 mg/dL Normal [facility] HbA1c (Bld) [Mass fraction] 6.9 % High 4.4-5.6 [facility] Comment on above: Result Comment: NOTE [...] Basophils (Bld) [#/Vol] 0.14 10*3/uL High <0.11 [facility] Comment on above: Order Comment: Speci men Type: BLOOD SPECIMEN [facility] Facility: [facility] Address: [address] [place] [address] Performed By: #### 5 7021-8 #### [facility] CLIA [id number] [address] [place] [address] LAB CLIA [id number] [address] [place] [address] [place] Basophils/100 WBC (Bld) 1.0 % Normal [facility] Comment on above: Order Comment: Speci men Type: BLOOD SPECIMEN Ordering Facility: [facility] Address: [address] [place] [address] Performed By: #### 5 7021-8 #### [facility] CLIA [id number] [address] [place] [address] LAB CLIA [id number] [address] [place] [address] [place] Differential cell count method Nom (Bld) Manual Normal [facility] Comment on above: Order Comment: Speci men Type: BLOOD SPECIMEN Ordering Facility: [facility] Address: [address] [place] [address] Performed By: #### 5 7021-8 #### [facility] CLIA [id number] [address] [place] [address] LAB CLIA [id number] [address] [place] [address] [place] Eosinophils (Bld) [#/Vol] 0.14 10*3/uL Normal <0.46 [facility] Comment on above: Order Comment: Speci men Type: BLOOD SPECIMEN [facility]ing Facility: [facility] Address: [address] [place] [address] Performed By: #### 5 7021-8 #### [facility] CLIA [id number] [address] [place] [address] LAB CLIA [id number] [address] [place] [address] [place] Eosinophils/100 WBC (Bld) 1.0 % Normal [facility] Comment on above: Order Comment: Speci men Type: BLOOD SPECIMEN [facility]ing Facility: [facility] Address: [address] [place] [address] Performed By: #### 5 7021-8 #### [facility] CLIA [id number] [address] [place] [address] LAB CLIA [id number] [address] [place] [address] [place] Erythrocyte distribution width (RBC) [Ratio] 13.2 % Normal 11.5-15.0 [facility] Comment on above: Order Comment: Speci men Type: BLOOD SPECIMEN [facility]ing Facility: [facility] Address: [address] [place] [address] Performed By: #### 5 7021-8 #### [facility] CLIA [id number] [address] [place] [address] LAB CLIA [id number] [address] [place] [address] [place] Hematocrit (Bld) [Volume fraction] 32.0 % Low 39.0-51.0 [facility] Comment on above: Order Comment: Speci men Type: BLOOD SPECIMEN Ordering Facility: [facility] Address: [address] [place] [address] Performed By: #### 5 7021-8 #### [facility] CLIA [id number] [address] [place] [address] LAB CLIA [id number] [address] [place] [address] [place] Hemoglobin (Bld) [Mass/Vol] 10.8 g/dL Low 13.0-17.0 [facility] Comment on above: Order Comment: Speci men Type: BLOOD SPECIMEN Ordering Facility: [facility] Address: [address] [place] [address] Performed By: #### 5 7021-8 #### [facility] CLIA [id number] [address] [place] [address] LAB CLIA [id number] [address] [place] [address] [place] Lymphocytes (Bld) [#/Vol] 7.95 10*3/uL High 1.00-4.00 [facility] Comment on above: Order Comment: Speci men Type: BLOOD SPECIMEN Ordering Facility: [facility] Address: [address] [place] [address] Performed By: #### 5 7021-8 #### [facility] CLIA [id number] [address] [place] [address] LAB CLIA [id number] [address] [place] [address] [place] Lymphocytes/100 WBC (Bld) 57.0 % Normal [facility] Comment on above: Order Comment: Speci men Type: BLOOD SPECIMEN Ordering Facility: [facility] Address: [address] [place] [address] Performed By: #### 5 7021-8 #### [facility] CLIA [id number] [address] [place] [address] LAB CLIA [id number] [address] [place] [address] [place] MCH (RBC) [Entitic mass] 30.9 pg Normal 26.0-34.0 [facility] Comment on above: Order Comment: Speci men Type: BLOOD SPECIMEN [facility]ing Facility: [facility] Address: [address] [place] [address] Performed By: #### 5 7021-8 #### [facility] CLIA [id number] [address] [place] [address] LAB CLIA [id number] [address] [place] [address] [place] MCHC (RBC) [Mass/Vol] 33.8 g/dL Normal 30.5-36.0 [facility] Comment on above: Order Comment: Speci men Type: BLOOD SPECIMEN Order[facility] Facility: [facility] Address: [address] [place] [address] Performed By: #### 5 7021-8 #### [facility] CLIA [id number] [address] [place] [address] LAB CLIA [id number] [address] [place] [address] [place] MCV (RBC) [Entitic vol] 91.7 fL Normal 80.0-100.0 [facility] Comment on above: Order Comment: Speci men Type: BLOOD SPECIMEN Ordering Facility: [facility] Address: [address] [place] [address] Performed By: #### 5 7021-8 #### [facility] CLIA [id number] [address] [place] [address] LAB CLIA [id number] [address] [place] [address] [place] Monocytes (Bld) [#/Vol] 0.84 10*3/uL Normal <0.87 [facility] Comment on above: Order Comment: Speci men Type: BLOOD SPECIMEN Ordering Facility: [facility] Address: [address] [place] [address] Performed By: #### 5 7021-8 #### [facility] CLIA [id number] [address] [place] [address] LAB CLIA [id number] [address] [place] [address] [place] Monocytes/100 WBC (Bld) 6.0 % Normal [facility] Comment on above: Order Comment: Speci men Type: BLOOD SPECIMEN Ordering Facility: [facility] Address: [address] [place] [address] Performed By: #### 5 7021-8 #### [facility] CLIA [id number] [address] [place] [address] LAB CLIA [id number] [address] [place] [id number] [place] Neutrophils (Bld) [#/Vol] 4.88 10*3/uL Normal 1.45-7.50 [facility] Comment on above: Order Comment: Speci men Type: BLOOD SPECIMEN Ordering Facility: [facility] Address: [address] [place] [address] Performed By: #### 5 7021-8 #### [facility] CLIA [id number] [address] [place] [address] LAB CLIA [id number] [address] [place] [address] [place] Neutrophils/100 WBC (Bld) 35.0 % Normal [facility] Comment on above: Order Comment: Speci men Type: BLOOD SPECIMEN Ordering Facility: [facility] Address: [address] [place] [address] Performed By: #### 5 7021-8 #### [facility] CLIA [id number] [address] [place] [address] LAB CLIA [id number] [address] [place] [address] [place] Nucleated RBC (Bld) [#/Vol] 10*3/uL Normal <0.01 [facility] Comment on above: Order Comment: Speci men Type: BLOOD SPECIMEN Ordering Facility: [facility] Address: [address] [place] [address] Performed By: #### 5 7021-8 #### [facility] CLIA [id number] [address] [place] [address] LAB CLIA [id number] [address] [place] [address] [place] Nucleated RBC/100 WBC (Bld) [Ratio] 0.0 /100 WBC Normal [facility] Comment on above: Order Comment: Speci men Type: BLOOD SPECIMEN Ordering Facility: [facility] Address: [address] [place] [address] Performed By: #### 5 7021-8 #### [facility] CLIA [id number] [address] [place] [address] LAB CLIA [id number] [address] [place] [address] [place] Ovalocytes LM Ql (Bld) Few Normal [facility] Comment on above: Order Comment: Speci men Type: BLOOD SPECIMEN Ordering Facility: [facility] Address: [address] [place] [address] Performed By: #### 5 7021-8 #### [facility] CLIA [id number] [address] [place] [address] LAB CLIA [id number] [address] [place] [address] [place] Platelet mean volume (Bld) [Entitic vol] 10.7 fL Normal 9.0-12.7 [facility] Comment on above: Order Comment: Speci men Type: BLOOD SPECIMEN Ordering Facility: [facility] Address: [address] [place] [address] Performed By: #### 5 7021-8 #### [facility] CLIA [id number] [address] [place] [address] LAB CLIA [id number] [address] [place] [address] [place] Platelets (Bld) [#/Vol] 152 10*3/uL Normal 150-400 [facility] Comment on above: Order Comment: Speci men Type: BLOOD SPECIMEN Ordering Facility: [facility] Address: [address] [place] [address] Performed By: #### 5 7021-8 #### [facility] CLIA [id number] [address] [place] [address] LAB CLIA [id number] [facility] [place] [id number] [place] Platelets Estimate (Bld) [#/Vol] Adequate Normal [facility] Comment on above: Order Comment: Speci men Type: BLOOD SPECIMEN Ordering Facility: [facility] Address: [address] [place] [address] Performed By: #### 5 7021-8 #### [facility] CLIA [id number] [address] [place] [address] LAB CLIA [id number] [address] [place] [address] [place] RBC (Bld) [#/Vol] 3.49 10*6/uL Low 4.20-6.00 [facility] Comment on above: Order Comment: Speci men Type: BLOOD SPECIMEN Ordering Facility: [facility] Address: [address] [place] [address] Performed By: #### 5 7021-8 #### [facility] CLIA [id number] [address] [place] [address] LAB CLIA [id number] [address] [place] [address] [place] RED CELL MORPH Reviewed: see result s of individual morphologies Normal [facility] Comment on above: Order Comment: Speci men Type: BLOOD SPECIMEN Ordering Facility: [facility] Address: [address] [place] [address] Performed By: #### 5 7021-8 #### [facility] CLIA [id number] [address] [place] [address] LAB CLIA [id number] [address] [place] [address] [place] WBC (Bld) [#/Vol] 13.94 10*3/uL High 3.70-11.00 [facility] Comment on above: Order Comment: Speci men Type: BLOOD SPECIMEN Ordering Facility: [facility] Address: [address] [place] [address] Performed By: #### 5 7021-8 #### [facility] CLIA [id number] [address] [place] [address] [facility] CLIA [id number] [address] [place] [address] [place] [id number] [place] CNOVSPon 07-16-2023 CNOVSP Visit (SP) Office (HEMASA) ILA MOREJON ([id number]) 1945 M Date Time Provider Department 07/16/23 2:30 PM FARAZ BECKHAM During your visit today, we recorded the following information about you: Temperature Pulse Respiration Blood pressure 97.7 degrees 42/minute 16/minute 169/38 Weight Height 77.3 kg 1.715 m Faraz Beckham MD 07/16/2023 7:35 PM Signed NAME: Ila Morejon CLINIC NO.: [id number] DATE OF SERVICE: July 16, 2023 (Lory) [...] Reverse Chronological Order 04/04/2023 - Admitted to [facility] with NSTEMI Underwent placement of drug eluting [...] Has been sleeping more, especially since the PA. Updated Visit, December 27, 2022: 13 year [...] gabapentin (NEUR (more content not included)... Normal [facility] Comprehensive metabolic 2000 panelon 07-16-2023 Albumin [Mass/Vol] 3.8 g/dL Low 3.9-4.9 [facility] Comment on above: Order Comment: Speci men Type: BLOOD SPECIMENOrdering Facility: [facility] Address: [address] [place] [address] Performed By: #### 3 084-1, 2531-0, ####[facility] LABCLIA [id number] [place] [address] ALP [Catalytic activity/Vol] 88 U/L Normal 38-113 [facility] Comment on above: Order Comment: Speci men Type: BLOOD SPECIMENOrdering Facility: [facility] Address: [address] [place] [address] Performed By: #### 3 084-1, 2531-0, ####[facility] LABIA [id number] [place] [address] ALT [Catalytic activity/Vol] 23 U/L Normal 10-54 [facility] Comment on above: Order Comment: Speci men Type: BLOOD SPECIMENOrdering Facility: [facility] Address: [address] [place] [address] Performed By: #### 3 084-1, 0, ####[facility] LABIA [id number] [place] [address] Anion gap [Moles/Vol] 7 mmol/L Low 9-18 [facility] Comment on above: Order Comment: Speci men Type: BLOOD SPECIMENOrdering Facility: [facility] Address: [address] [place] [address] Performed By: #### 3 084-1, 2531-0, 76450-6 ####[facility] LABCLIA [id number] [place] [address] AST [Catalytic activity/Vol] 23 U/L Normal 14-40 [facility] Comment on above: Order Comment: Speci men Type: BLOOD SPECIMENOrdering Facility: [facility] Address: [address] [place] [address] Performed By: #### 3 084-1, 0, ####[facility] LABCLIA [id number] [place] [address] Bilirubin [Mass/Vol] 0.3 mg/dL Normal 0.2-1.3 [facility] Comment on above: Order Comment: Speci men Type: BLOOD SPECIMENOrdering Facility: [facility] Address: [address] [place] [address] Performed By: #### 3 084-1, 0, ####[facility] LABIA [id number] [place] [address] Calcium [Mass/Vol] 9.3 mg/dL Normal 8.5-10.2 [facility] Comment on above: Order Comment: Speci men Type: BLOOD SPECIMENOrdering Facility: [facility] Address: [address] [place] [address] Performed By: #### 3 084-1, 0, ####[facility] LABIA [id number] [place] [address] Chloride [Moles/Vol] 107 mmol/L High 97-105 [facility] Comment on above: Order Comment: Speci men Type: BLOOD SPECIMENOrdering Facility: [facility] Address: [address] [place] [address] Performed By: #### 3 084-1, 0, ####[facility] LABCLIA [id number] [place] [address] CO2 [Moles/Vol] 23 mmol/L Normal 22-30 [facility] Comment on above: Order Comment: Speci men Type: BLOOD SPECIMENOrdering Facility: [facility] Address: [address] [place] [id number] Performed By: #### 3 084-1, 2532-0, ####[facility] LABCLIA [id number] [place] [address] Creatinine [Mass/Vol] 1.59 mg/dL High 0.73-1.22 [facility] Comment on above: Order Comment: Michael feng Type: BLOOD SPECIMENOrdering Facility: [facility] Address: [address] [place] [address] Performed By: #### 3 084-1, 2532-0, ####[facility] LABIA [id number] [place] [address] Creatinine and Glomerular filtration rate.predicted panel (S/P/Bld) 45 mL/min/1.73m??? Low >=60 [facility] Comment on above: Order Comment: Michael feng Type: BLOOD SPECIMENOrdering Facility: [facility] Address: [address] [place] [address] Result Comment: Silvana mated Glomerular Filtration Rate [...] GFR. Performed By: #### 3 084-1, 2531-0, ####[facility] LABIA [id number] [place] [address] Glucose [Mass/Vol] 200 mg/dL High 74-99 [facility] Comment on above: Order Comment: Michael feng Type: BLOOD SPECIMENOrdering Facility: [facility] Address: [address] [place] [address] Result Comment: The [place] [employer] (ADA) provides guidance for cutoff [...] Standards of Medical Care in Diabetes 2016, [place] [employer]. Diabetes Care. 2016.39(Suppl 1). Performed By: #### 3 084-1, 0, ####[facility] LABCLIA [id number] [place] [address] Potassium [Moles/Vol] 5.3 mmol/L High 3.7-5.1 [facility] Comment on above: Order Comment: Speci men Type: BLOOD SPECIMENOrdering Facility: [facility] Address: [address] [place] [address] Performed By: #### 3 084-1, 0, ####[facility] LABCLIA [id number] [place] [address] Protein [Mass/Vol] 6.1 g/dL Low 6.3-8.0 [facility] Comment on above: Order Comment: Speci men Type: BLOOD SPECIMENOrdering Facility: [facility] Address: [address] [place] [address] Performed By: #### 3 084-1, 0, ####[facility] LABCLIA [id number] [place] [address] Sodium [Moles/Vol] 137 mmol/L Normal 136-144 [facility] Comment on above: Order Comment: Speci men Type: BLOOD SPECIMENOrdering Facility: [facility] Address: [address] [place] [address] Performed By: #### 3 084-1, 0, ####[facility] LABCLIA [id number] [place] [address] Urea nitrogen [Mass/Vol] 36 mg/dL High 9-24 [facility] Comment on above: Order Comment: Speci men Type: BLOOD SPECIMENOrdering Facility: [facility] Address: [address] [place] [address] Performed By: #### 3 084-1, 2532-0, 48700-7 ####[facility] LABCLIA [id number] [place] [address] LDH SerPl-cCncon 07-16-2023 LDH [Catalytic activity/Vol] 206 U/L Normal 135-225 [facility] Comment on above: Order Comment: Speci men Type: BLOOD SPECIMENOrdering Facility: [facility] Address: [address] [place] [address] Performed By: #### 3 084-1, 2531-0, ####[facility] LABCLIA [id number] [place] [address] Urate SerPl-mCncon 3 Urate [Mass/Vol] 5.5 mg/dL Normal 4.0-8.1 [facility] Comment on above: Order Comment: Speci men Type: BLOOD SPECIMENOrdering Facility: [facility] Address: [address] [place] [address] Performed By: #### 3 084-1, 253-0, ####[facility] LABCLIA [id number] [place] [address] B2 MICROGLOBULIN Bon 022 Qluq-3-Crrqghvhauhmp [Mass/Vol] 4.5 ug/mL High <3.1 mg/L [facility] CBC W Auto Differential pane l (Bld)on 06-22-2022 Basophils (Bld) [#/Vol] 0.00 10*3/uL <0.11 k/uL [facility] Basophils/100 WBC (Bld) 0.0 % [facility] Differential cell count method Nom (Bld) Manual [facility] Eosinophils (Bld) [#/Vol] 0.33 10*3/uL <0.46 k/uL [facility] Eosinophils/100 WBC (Bld) 2.0 % [facility] Erythrocyte distribution width (RBC) [Ratio] 12.5 % 11.5 - 15.0 % [facility] Hematocrit (Bld) [Volume fraction] 43.5 % 39.0 - 51.0 % [facility] Hemoglobin (Bld) [Mass/Vol] 15.1 g/dL 13.0 - 17.0 g/dL [facility] Lymphocytes (Bld) [#/Vol] 9.25 10*3/uL High 1.00 - 4.00 k/uL [facility] Lymphocytes/100 WBC (Bld) 56.0 % [facility] MCH (RBC) [Entitic mass] 30.8 pg 26.0 - 34.0 pg [facility] MCHC (RBC) [Mass/Vol] 34.7 g/dL 30.5 - 36.0 g/dL [facility] MCV (RBC) [Entitic vol] 88.8 fL 80.0 - 100.0 fL [facility] Monocytes (Bld) [#/Vol] 1.16 10*3/uL High <0.87 k/uL [facility] Monocytes/100 WBC (Bld) 7.0 % [facility] Neutrophils (Bld) [#/Vol] 5.78 10*3/uL 1.45 - 7.50 k/uL [facility] Neutrophils/100 WBC (Bld) 35.0 % [facility] Nucleated RBC (Bld) [#/Vol] <0.01 k/uL [facility] Nucleated RBC/100 WBC (Bld) [Ratio] 0.0 /100 WBC [facility] Ovalocytes LM Ql (Bld) Few [facility] Platelet mean volume (Bld) [Entitic vol] 10.4 fL 9.0 - 12.7 fL [facility] Platelets (Bld) [#/Vol] 204 10*3/uL 150 - 400 k/uL [facility] Platelets Estimate (Bld) [#/Vol] Adequate [facility] RBC (Bld) [#/Vol] 4.90 10*6/uL 4.20 - 6.0 0 m/uL [facility] Red Cell Morph Reviewed: see result s of individual morphologies [facility] WBC (Bld) [#/Vol] 16.52 10*3/uL High 3.70 - 11 .00 k/uL [facility] Direct antiglobulin test.avelina y specific reagent Ql (RBC)on 06-22-2022 DAGT, Polyspecific AHG Negative [facility] Comprehensive metabolic 2000 panelon 06-21-2022 Albumin [Mass/Vol] 3.7 g/dL Low 3.9 - 4.9 g/dL [facility] ALP [Catalytic activity/Vol] 117 U/L High 38 - 113 U/L [facility] ALT [Catalytic activity/Vol] 9 U/L Low 10 - 54 U/L [facility] Anion gap [Moles/Vol] 3 mmol/L Low 9 - 18 mmol/L [facility] AST [Catalytic activity/Vol] 13 U/L Low 14 - 40 U/L [facility] Bilirubin [Mass/Vol] 0.4 mg/dL 0.2 - 1 .3 mg/dL [facility] Calcium [Mass/Vol] 9.4 mg/dL 8.5 - 10. 2 mg/dL [facility] Chloride [Moles/Vol] 108 mmol/L High 97 - 10 5 mmol/L [facility] CO2 [Moles/Vol] 27 mmol/L 22 - 30 mmol/L [facility] Creatinine [Mass/Vol] 1.19 mg/dL 0.73 - 1.22 mg/dL [facility] Estimated Glomerular Filtration Rate 64 mL/min/1.73m >=60 mL/min/1.73m [facility] Glucose [Mass/Vol] 180 mg/dL High 74 - 99 mg/dL [facility] Potassium [Moles/Vol] 5.4 mmol/L High 3.7 - 5.1 mmol/L [facility] Protein [Mass/Vol] 6.2 g/dL Low 6.3 - 8.0 g/dL [facility] Sodium [Moles/Vol] 138 mmol/L 136 - 144 mmol/L [facility] Urea nitrogen [Mass/Vol] 31 mg/dL High 9 - 24 mg/dL [facility] LD LACTATE DEHYDROon 022 LDH [Catalytic activity/Vol] 179 U/L 135 - 225 U/L [facility] URIC ACID BLOODon 06-21-2022 Urate [Mass/Vol] 4.5 mg/dL 4.0 - 8.1 mg/dL [facility] CBC AUTO DIFFon 06-06-2022 BASO # 0.1 103/ul Normal 0.0-0.1 [facility] Comment on above: Performed By: #### C BC #### [facility] [address] [place] [address] [address] Lara Askew Basophils/100 WBC (Bld) 0.5 % Normal 0.2-2.0 [facility] Comment on above: Performed By: #### C BC #### [facility] [address] [place] [address] [address] Lara Askew EO # 0.3 103/ul Normal 0.0-0.7 [facility] Comment on above: Performed By: #### C BC #### [facility] [address] [place] [address] Dr. Lara Askew Eosinophils/100 WBC (Bld) 1.6 % Normal 0.9-7.0 [facility] Comment on above: Performed By: #### C BC #### [facility] [address] [place] [address] Dr. Lara Askew Erythrocyte distribution width (RBC) [Ratio] 12.5 % Normal 11.0-15.0 [facility] Comment on above: Performed By: #### C BC #### [facility] [address] [place] [address] Dr. Lara Askew Hematocrit (Bld) [Volume fraction] 39.7 % Critically low 42.0-54.0 [facility] Comment on above: Performed By: #### C BC #### [facility] [address] [place] [address] Dr. Lara Askew Hemoglobin (Bld) [Mass/Vol] 14.0 g/dL Normal 14.0-18.0 [facility] Comment on above: Performed By: #### C BC #### [facility] [address] [place] [address] Dr. Lara Askew IG # 0.07 10e3/ul Critically high 0.00-0.03 [facility] Comment on above: Performed By: #### C BC #### [facility] [address] [place] [address] Dr. Lara Askew IG % 0.4 % Normal 0.0-0.5 [facility] Comment on above: Performed By: #### C BC #### [facility] [address] [place] [address] Dr. Lara Askew LYMPH # 10.1 103/ul Critically high 1.2-3.8 [facility] Comment on above: Performed By: #### C BC #### [facility] [address] [place] [address] Dr. Lara Askew Lymphocytes/100 WBC (Bld) 53.6 % Normal 20.5-60.0 [facility] Comment on above: Performed By: #### C BC #### [facility] [address] [place] [address] Dr. Lara Askew MANUAL DIFF REQ NO Normal [facility] Comment on above: Performed By: #### C BC #### [facility] [address] [place] [address] Dr. Lara Askew MCH (RBC) [Entitic mass] 31.5 pg Normal 25.9-34.0 [facility] Comment on above: Performed By: #### C BC #### [facility] [address] [place] [address] Dr. Lara Askew MCHC (RBC) [Mass/Vol] 35.3 g/dL Critically high 29.9-35.2 [facility] Comment on above: Performed By: #### C BC #### [facility] [address] [place] [address] Dr. Lara Askew MCV (RBC) [Entitic vol] 89.2 fL Normal 80.0-94.0 [facility] Comment on above: Performed By: #### C BC #### [facility] [address] [place] [address] Dr. Lara Askew MONO # 0.7 103/ul Normal 0.3-0.8 [facility] Comment on above: Performed By: #### C BC #### [facility] [address] [place] [address] Dr. Lara Askew Monocytes/100 WBC (Bld) 3.7 % Normal 1.7-12.0 [facility] Comment on above: Performed By: #### C BC #### [facility] [address] [address] [address] Lara Askew NEUT # 7.6 103/ul Critically high 1.4-6.5 [facility] Comment on above: Performed By: #### C BC #### [facility] [address] [place] [address] [address] Lara Askew Neutrophils/100 WBC (Bld) 40.2 % Critically low 43.0-75.0 [facility] Comment on above: Performed By: #### C BC #### [facility] [address] [place] [address] Dr. Lara Askew Platelet mean volume (Bld) [Entitic vol] 11.0 fL Normal 9.5-13.5 [facility] Comment on above: Performed By: #### C BC #### [facility] [address] [place] [address] [address] Lara Askew PLT 185 103/ul Normal 150-450 [facility] Comment on above: Performed By: #### C BC #### [facility] [address] [place] [address] Dr. Lara Askew RBC 4.45 106/ul Critically low 4.70-6.[address] [facility] Comment on above: Performed By: #### C BC #### [facility] [address] [place] [address] Dr. Lara Askew WBC 18.8 103/ul Critically high 4.0-11.0 [facility] Comment on above: Performed By: #### C BC #### [facility] [address] [place] [address] Dr. Lara Askew GLYCOHEMOGLOBIN A1Con 2021 ADA RECOMMENDATION SEE BELOW Normal [facility] Comment on above: Result Comment: ADA RECOMMENDED LIMIT 4.0 - 6.0 ADA THERAPEUTIC TARGET < 7.0 ACTION SUGGESTED > 7.0 Performed By: #### A 1C #### [facility] [address] [place] [address] Dr. Lara Askew Glucose [Mass/Vol] 148 mg/dL Normal [facility] Comment on above: Performed By: #### A 1C #### [facility] [address] [place] [address] [address] Lara Askew HbA1c (Bld) [Mass fraction] 6.8 % Critically high 4.5-6.2 [facility] [facility] Comment on above: Performed By: #### A 1C #### [facility] [address] [address] [address] Lara Askew LIPID PROFILEon 06-06-2022 CHOL-HDL RATIO NORM SEE BELOW Normal [facility] Comment on above: Result Comment: 3.3 - 4.4 LOW RISK 4.4 - 7.1 AVERAGE RISK 7.1 - 11.0 MODERATE RISK >11.0 HIGH RISK Performed By: #### L IVER, LIPID, BMP #### [facility] [address] [address] [address] Lara Askew Cholesterol [Mass/Vol] 113 mg/dL Normal <=200 [facility] Comment on above: Performed By: #### L IVER, LIPID, BMP #### [facility] [address] [address] [address] Lara Askew Cholesterol in HDL [Mass/Vol] 51 mg/dL Normal 40-60 [facility] Comment on above: Performed By: #### L IVER, LIPID, BMP #### [facility] [address] [address] [address] Lara Askew Cholesterol in LDL [Mass/Vol] 47.6 mg/dL Normal [facility] Comment on above: Performed By: #### L IVER, LIPID, BMP #### [facility] [address] [address] [address] Lara Askew Cholesterol.total/Ch olesterol in HDL [Mass ratio] 2.2 {ratio} Normal [facility] Comment on above: Performed By: #### L IVER, LIPID, BMP #### [facility] [address] [address] [address] Lara Askew HDL NORMAL > or = 60 mg/dl - LO W CARDIOVASCULAR RISK <40 mg/dl - HIGH CARDIOVASCULAR RISK Normal [facility] Comment on above: Performed By: #### L IVER, LIPID, BMP #### [facility] [address] [address] [address] Lara Askew LDL CALC NORMAL SEE BELOW Normal [facility] Comment on above: Result Comment: <100 mg/dl OPTIMAL 100 - 129 mg/dl NEAR OR ABOVE OPTIMAL 130 - 159 mg/dl BORDERLINE HIGH 160 - 189 mg/dl HIGH >190 mg/dl VERY HIGH Performed By: #### L IVER, LIPID, BMP #### [facility] [address] [address] [address] Lara Askwe Triglyceride [Mass/Vol] 72 mg/dL Normal <=150 [facility] Comment on above: Performed By: #### L IVER, LIPID, BMP #### [facility] [address] [address] [address] Lara Askew VLDL CALC 14.4 mg/dL Normal [facility] Comment on above: Performed By: #### L IVER, LIPID, BMP #### [facility] [address] [address] [address] Lara Askew LIVER PROFILEon 06-06-2022 Albumin [Mass/Vol] 3.0 g/dL Critically low 3.4-5.0 [facility] Comment on above: Performed By: #### L IVER, LIPID, BMP #### [facility] [address] [address] [address] Lara Askew Albumin/Globulin [Mass ratio] 1.0 {ratio} Normal [facility] Comment on above: Performed By: #### L IVER, LIPID, BMP #### [facility] [address] [address] [address] Lara Askew ALP [Catalytic activity/Vol] 93 U/L Normal 46-116 [facility] Comment on above: Performed By: #### L IVER, LIPID, BMP #### [facility] [address] [address] [address] Lara Askew ALT [Catalytic activity/Vol] 23 U/L Normal 16-63 [facility] Comment on above: Performed By: #### L IVER, LIPID, BMP #### [facility] [address] [address] [address] Lara Askew AST [Catalytic activity/Vol] 21 U/L Normal 15-37 [facility] Comment on above: Performed By: #### L IVER, LIPID, BMP #### [facility] [address] [place] [address] Dr. Lara Askew BILI, CONJUGATED 0.1 mg/dL Normal 0.0-0.2 [facility] Comment on above: Performed By: #### L IVER, LIPID, BMP #### [facility] [address] [place] [address] Dr. Lara Askew Bilirubin [Mass/Vol] 0.5 mg/dL Normal 0.2-1.0 [facility] Comment on above: Performed By: #### L IVER, LIPID, BMP #### [facility] [address] [place] [address] Dr. Lara Askew Globulin (S) [Mass/Vol] 3.1 g/dL Normal [facility] Comment on above: Performed By: #### L IVER, LIPID, BMP #### [facility] [address] [place] [address] Dr. Lara Askew Protein [Mass/Vol] 6.1 g/dL Critically low 6.4-8.2 [facility] Comment on above: Performed By: #### L IVER, LIPID, BMP #### [facility] [address] [place] [address] Dr. Lara Askew MICROALBUMIN, RAND URon 05-21 mALB 24.1 mg/L Normal <=30.0 [facility] Comment on above: Performed By: #### M ALBR #### [facility] [address] [place] [address] Dr. Lara Askew PERIPHERAL SMEARon 2 Pathologist Cyto stain Nom (Cvx/Vag) [ID] DR. ROSEMARIE DOE Normal [facility] Comment on above: Result Comment: Revi ew [...] ERSMR #### [facility] [address] [place] [address] Dr. Lara Askew PROF CHEM 8 (BAS METB)on Anion gap [Moles/Vol] 9.4 mmol/L Normal [facility] Comment on above: Performed By: #### L IVER, LIPID, BMP #### [facility] [address] [place] [address] Dr. Lara Askew Calcium [Mass/Vol] 8.7 mg/dL Normal 8.5-10.1 [facility] Comment on above: Performed By: #### L IVER, LIPID, BMP #### [facility] [address] [place] [address] Dr. Lara Askew Chloride [Moles/Vol] 105 mmol/L Normal 98-107 [facility] Comment on above: Performed By: #### L IVER, LIPID, BMP #### [facility] [address] [place] [address] Dr. Lara Asekw CO2 [Moles/Vol] 28.6 mmol/L Normal 21.0-32.0 [facility] Comment on above: Performed By: #### L IVER, LIPID, BMP #### [facility] [address] [place] [address] Dr. Lara Askew Creatinine [Mass/Vol] 1.07 mg/dL Normal 0.70-1.30 [facility] Comment on above: Performed By: #### L IVER, LIPID, BMP #### [facility] [address] [place] [address] Dr. Lara Askew EGFR-AF MAURITANIAN >60 Normal >=60 [facility] Comment on above: Performed By: #### L IVER, LIPID, BMP #### [facility] [address] [address] [address] Lara Askew EGFR-NON AF MAURITANIAN >60 Normal >=60 [facility] Comment on above: Performed By: #### L IVER, LIPID, BMP #### [facility] [address] [address] [address] Lara Askew Glucose [Mass/Vol] 147 mg/dL Critically high 74-106 [facility] Comment on above: Performed By: #### L IVER, LIPID, BMP #### [facility] [address] [address] [address] Lara Askew Potassium [Moles/Vol] 5.0 mmol/L Normal 3.5-5.1 [facility] Comment on above: Performed By: #### L IVER, LIPID, BMP #### [facility] [address] [place] [address] Dr. Lara Askew Sodium [Moles/Vol] 138 mmol/L Normal 136-145 [facility] Comment on above: Performed By: #### L IVER, LIPID, BMP #### [facility] [address] [place] [address] Dr. Lara Askew Urea nitrogen [Mass/Vol] 22.0 mg/dL Critically high 7.0-18.0 [facility] Comment on above: Performed By: #### L IVER, LIPID, BMP #### [facility] [address] [address] [address] Lara Askew Urea nitrogen/Creatinine [Mass ratio] 20.6 mg/mg Normal [facility] Comment on above: Performed By: #### L IVER, LIPID, BMP #### [facility] [address] [place] [address] Dr. Lara Askew VITAMIN D 25 OHon 06-06-2022 VIT D 25-OH 10.6 ng/mL Normal [facility] Comment on above: Performed By: #### V ITAD, PSASC #### [facility] [address] [place] [address] Dr. Lara Askew VIT D RANGES SEE BELOW Normal [facility] Comment on above: Result Comment: <20 ng/mL Vit D deficient 20 - <30 ng/mL Vit D insufficient 30 - 100 ng/mL Vit D sufficient >100 ng/mL Potential Toxicity Performed By: #### V ITAD, PSASC #### [facility] [address] [place], [place] [address] Dr. Lara Askew GLYCOHEMOGLOBIN A1Con 2021 ADA RECOMMENDATION SEE BELOW Normal [facility] Comment on above: Result Comment: ADA RECOMMENDED LIMIT 4.0 - 6.0 ADA THERAPEUTIC TARGET < 7.0 ACTION SUGGESTED > 7.0 Performed By: #### A 1C #### [facility] [address] [address] [address] Lara Askew Glucose [Mass/Vol] 169 mg/dL Normal [facility] Comment on above: Performed By: #### A 1C #### [facility] [address] [address] [address] Lara Askew HbA1c (Bld) [Mass fraction] 7.5 % Critically high 4.5-6.2 [facility] Comment on above: Performed By: #### A 1C #### [facility] [address] [address] [address] Lara Askew Albumin [Mass/volume] in Ser um or Plasmaon 01-01-2021 Albumin [Mass/Vol] 3.5 g/dL 3.2-5.5 [facility] Creatinine and Glomerular fi ltration rate.predicted panel (S/P/Bld)on 01-01-2021 Creatinine [Mass/Vol] 1.02 mg/dL 0.64-1.27 [facility] Estimated glomerular filtrat ion rate (GFR) non- Americanon 01-01-2021 GFR/1.73 sq M.predicted among non-blacks MDRD (S/P/Bld) [Vol rate/Area] > 60 mL/Min [facility] Globulin Calc (S) [Mass/Vol] on 01-01-2021 Globulin (S) [Mass/Vol] 2.0 g/dL [facility] No Panel Informationon 01-01 Estimated GFR () > 60 mL/Min [facility] Comment on above: GFR estimated refere nce range: According to KDOQI guidelines, <60 ml/min/1.73m2 is sufficient to diagnose a patient with chronic kidney disease. Pharmacy Creatinine Clearance (Chem N/A [facility] Protein [Mass/volume] in Ser um or Plasmaon 01-01-2021 Protein [Mass/Vol] 5.5 g/dL 6.1-7.9 [facility] Serum or plasma alanine chambers otransferase measurement without P-5'-P (enzymatic activion 01-01-2021 ALT No additional P-5'-P [Catalytic activity/Vol] 28 U/L 10-60 [facility] Serum or plasma albumin/glob ulin mass ratioon 01-01-2021 Albumin/Globulin [Mass ratio] 1.8 {ratio} [facility] Serum or plasma alkaline clarisa sphatase measurement (enzymatic activity/volume)on 01-01-2021 ALP [Catalytic activity/Vol] 78 U/L 32-92 [facility] Serum or plasma aspartate am inotransferase measurement (enzymatic activity/volume)on 01-01-2021 AST [Catalytic activity/Vol] 21 U/L 10-42 [facility] Serum or plasma calcium elham urement (mass/volume)on 01-01-2021 Calcium [Mass/Vol] 9.6 mg/dL 8.2-10.2 [facility] Serum or plasma chloride daria surement (moles/volume)on 01-01-2021 Chloride [Moles/Vol] 103 mmol/L 95-114 [facility] Serum or plasma glucose elham urement (mass/volume)on 01-01-2021 Glucose [Mass/Vol] 59 mg/dL 70-100 [facility] Comment on above: ADA recommended refe rence rangeRandom Glucose Reference Range is dependent on time and content of last meal. Glucose of more than 200 mg/dL in a nonstressed, ambulatory subject supports the diagnosis of Diabetes Mellitus. Serum or plasma potassium me asurement (moles/volume)on 01-01-2021 Potassium [Moles/Vol] 4.8 mmol/L 3.5-5.1 [facility] Serum or plasma sodium measu rement (moles/volume)on 01-01-2021 Sodium [Moles/Vol] 143 mmol/L 136-146 [facility] Serum or plasma total biliru bin measurement (mass/volume)on 01-01-2021 Bilirubin [Mass/Vol] 0.9 mg/dL 0.3-1.2 [facility] Serum or plasma total carbon dioxide measurement (moles/volume)on 01-01-2021 CO2 [Moles/Vol] 28.5 mmol/L 22.0-30.0 [facility] Serum or plasma urea nitroge n measurement (mass/volume)on 01-01-2021 Urea nitrogen [Mass/Vol] 14 mg/dL 04-12 [facility] Vital Signs Date Time Vital Sign Value Performing Clinician Jeniferi elian 01-16-2024 14:09-0400 Body mass index (BMI) [Ratio] 24.89 kg/m2 Faraz Beckham MD Work Phone: [facility] 01-16-2024 14:09-0400 Body temperature 97.2 [degF] Faraz Beckham MD Work Phone: [facility] 01-16-2024 14:09-0400 Body weight 73.21 kg Faraz Beckham MD Work Phone: [facility] 01-16-2024 14:09-0400 Diastolic blood pressure 35 mm[Hg] Faraz Beckham MD Work Phone: [facility] 01-16-2024 14:09-0400 Heart rate 45 /min Faraz Beckham MD Work Phone: [facility] 01-16-2024 14:09-0400 Respiratory rate 18 /min Faraz Beckham MD Work Phone: [facility] 01-16-2024 14:09-0400 SaO2% (BldA) [Mass fraction] 98 % Faraz Beckham MD Work Phone: [facility] 01-16-2024 14:09-0400 Systolic blood pressure 132 mm[Hg] Faraz Beckham MD Work Phone: [facility] 09-03-2023 12:11-0500 Body height 172.7 cm Geneva Decistophe r [employer] Work Phone: [facility] [employer] [facility] 09-03-2023 12:11-0500 Body mass index (BMI) [Ratio] 26 kg/m2 Geneva Dechristopher [employer] Work Phone: [facility] [employer] [facility] 09-03-2023 12:11-0500 Body weight 77.56 kg Geneva Dechristophe r [employer] Work Phone: [facility] [employer] [facility] 09-03-2023 12:11-0500 Diastolic blood pressure 58 mm[Hg] Geneva Dechristopher [employer] Work Phone: [facility] [employer] [facility] 09-03-2023 12:11-0500 Heart rate 42 /min Geneva Dechristophe r [employer] Work Phone: [facility] [employer] [facility] 09-03-2023 12:11-0500 SaO2% (BldA) [Mass fraction] 98 % Geneva Dechristopher [employer] Work Phone: [facility] [employer] [facility] 09-03-2023 12:11-0500 Systolic blood pressure 130 mm[Hg] Geneva Dechristopher [employer] Work Phone: [facility] [employer] [facility] 08-27-2023 14:07-0500 Body height 172.7 cm Debbie Gonzalez MD Work Phone: [facility] [employer] [facility] 08-27-2023 14:07-0500 Body mass index (BMI) [Ratio] 25.7 kg/m2 Debbie Gonzalez MD Work Phone: [facility] [employer] [facility] 08-27-2023 14:07-0500 Body weight 76.66 kg Debbie Gonzalez MD Work Phone: [facility] [employer] [facility] 08-27-2023 14:07-0500 Diastolic blood pressure 50 mm[Hg] Debbie Gonzalez MD Work Phone: [facility] 08-27-2023 14:07-0500 Heart rate 47 /min Debbie Gonzalez MD Work Phone: [facility] 08-27-2023 14:07-0500 SaO2% (BldA) [Mass fraction] 98 % Debbie Gonzalez MD Work Phone: [facility] 08-27-2023 14:07-0500 Systolic blood pressure 132 mm[Hg] Debbie Gonzalez MD Work Phone: [facility] 12-27-2022 13:34-0400 Body height 171.5 cm Faraz Beckham MD Work Phone: [facility] 12-27-2022 13:34-0400 Body temperature 97.59 [degF] Faraz Beckham MD Work Phone: [facility] 12-27-2022 13:34-0400 Body weight 77.2 kg Faraz Beckham MD Work Phone: [facility] 12-27-2022 13:34-0400 Diastolic blood pressure 56 mm[Hg] Faraz Beckham MD Work Phone: [facility] 12-27-2022 13:34-0400 Heart rate 45 /min Faraz Beckham MD Work Phone: [facility] 12-27-2022 13:34-0400 Respiratory rate 16 /min Faraz Beckham MD Work Phone: [facility] 12-27-2022 13:34-0400 SaO2% (BldA) [Mass fraction] 98 % Faraz Beckham MD Work Phone: [facility] 12-27-2022 13:34-0400 Systolic blood pressure 146 mm[Hg] Faraz Beckham MD Work Phone: [facility] 06-21-2022 14:44-0500 Body height 172.7 cm Faraz Beckham MD Work Phone: [facility] 06-21-2022 14:44-0500 Body temperature 97.59 [degF] Faraz Beckham MD Work Phone: [facility] 06-21-2022 14:44-0500 Body weight 77.02 kg Faraz Beckham MD Work Phone: [facility] 06-21-2022 14:44-0500 Diastolic blood pressure 48 mm[Hg] Faraz Beckham MD Work Phone: [facility] 06-21-2022 14:44-0500 Heart rate 40 /min Faraz Beckham MD Work Phone: [facility] 06-21-2022 14:44-0500 Respiratory rate 16 /min Faraz Beckham MD Work Phone: [facility] 06-21-2022 14:44-0500 SaO2% (BldA) [Mass fraction] 99 % Faraz Beckham MD Work Phone: [facility] 06-21-2022 14:44-0500 Systolic blood pressure 179 mm[Hg] Faraz Beckham MD Work Phone: [facility] Encounters Encounter Date Encounter Type Care Provider Facility Start: 03-09-2024 End: 03-09-2024 ambulatory JEROMY MEJIA Not Available Start: 03-05-2024 End: 03-06-2024 Emergency department patient visit DANIEL MISTRY [facility] Start: 03-05-2024 End: 03-05-2024 Emergency department patient visit CRUZITO MCGRATH [facility] Start: 02-26-2024 End: 02-26-2024 ambulatory CRUZITO MCGRATH Not Available Start: 02-24-2024 End: 02-24-[address] [facility] Start: 01-16-2024 End: 01-16-2024 Office outpatient visit 25 minutes Faraz Beckham MD Work Phone: Hematology/Oncology Comment on above: CLL (chronic lymphoc ytic leukemia) (HCC) (Primary Dx); Large granular lymphocytosis; Stage 3 chronic kidney disease, unspecified whether stage 3a or 3b CKD (HCC) Start: 01-16-2024 End: 01-16-2024 ambulatory FARAZ BECKHAM Facility:[facility] Start: 01-09-2024 End: 01-09-2024 ambulatory CRUZITO MCGRATH Not Available Start: 01-08-2024 End: 01-08-2024 ambulatory BRAD POSADAADARSH Not Available Start: 12-27-2023 End: 12-27-[address] [facility] Work Phone: Start: 12-27-2023 End: 12-27-2023 Departed Referred DO Arminda Valverde Work Phone: [facility] Start: 12-18-2023 End: 12-18-2023 ambulatory CRUZITO MCGRATH Not Available Start: 10-24-2023 End: 10-24-2023 ambulatory CRUZITO MCGRATH Not Available Start: 09-03-2023 End: 09-03-2023 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 (Primary Dx); Sinus pause; Hypertension, unspecified type; NSTEMI (non-ST elevated myocardial infarction) ([facility]) Start: 08-27-2023 End: 08-27-2023 Office outpatient visit 15 minutes Debbie Gonzalez MD Work Phone: [facility] Comment on above: History of coronary angioplasty with insertion of stent (Primary Dx); Pulmonary hypertension ([facility]); Primary hypertension; Hx of hyperlipidemia; Sinus pause Start: 08-27-2023 End: 08-27-20[place] Start: 08-26-2023 Telephone encounter Gabbie Rebolledo [facility] Start: 08-25-2023 End: 08-25-2023 ambulatory [facility] Start: 08-21-2023 End: 08-21-2023 Patient encounter procedure Mischeabdiel Bhat [employer] Work Phone: [facility] Start: 08-21-2023 End: 08-21-2023 ambulatory [facility] Start: 08-20-2023 End: 08-20-2023 Patient encounter procedure Misaliyah Bhat [employer] Work Phone: [facility] Start: 08-20-2023 End: 08-20-2023 [facility] Start: 08-18-2023 End: 08-18-2023 [facility] Start: 08-14-2023 End: 08-14-2023 Patient encounter procedure Patria Bhat [employer] Work Phone: [facility] Start: 08-14-2023 End: 08-14-2023 [facility] Start: 08-13-2023 End: 08-13-2023 [facility] Start: 08-11-2023 End: 08-11-2023 Patient encounter procedure Patria Bhat [employer] Work Phone: [facility] Start: 08-11-2023 End: 08-11-2023 [facility] Start: 08-07-2023 End: 08-07-2023 Patient encounter procedure Mischell Home [employer] Work Phone: [facility] Start: 08-07-2023 End: 08-07-2023 [facility] Start: 08-06-2023 End: 08-06-2023 [facility] Start: 08-05-2023 End: 08-05-[address] [facility] Start: 08-04-2023 Documentation procedure Wayne Donald MD Work Phone: [facility] [employer] Start: 08-04-2023 End: 08-04-2023 Patient encounter procedure Patria Bhat [employer] Work Phone: [facility] Start: 08-04-2023 End: 08-04-2023 [facility] Start: 07-31-2023 End: 07-31-2023 [facility] Start: 07-30-2023 End: 08-21-2023 [facility] Start: 07-28-2023 End: 07-28-2023 [facility] Start: 07-24-2023 End: 07-24-2023 Patient encounter procedure Patria Bhat [employer] Work Phone: [facility] Start: 07-24-2023 End: 07-24-2023 ambulatory [facility] Start: 07-23-2023 End: 07-23-2023 [facility] Start: 07-23-2023 End: 07-23-2023 Patient encounter procedure Patria Bhat [employer] Work Phone: [facility] Start: 07-23-2023 End: 07-23-2023 ambulatory [facility] Start: 07-22-2023 End: 07-22-2023 ambulatory CRUZITO MCGRATH Not Available Start: 07-17-2023 End: 07-17-2023 Patient encounter procedure Patria Bhat [employer] Work Phone: [facility] Comment on above: Arrived Start: 07-17-2023 End: 07-17-2023 ambulatory [facility] Start: 07-16-2023 End: 07-16-2023 ambulatory CRUZITO Yan ALCIDES Facility:[facility] Start: 07-16-2023 End: 07-21-2023 ambulatory [facility] Start: 07-10-2023 End: 07-10-2023 [facility] Start: 07-09-2023 End: 07-09-2023 ambulatory [facility] Start: 07-07-2023 End: 07-07-2023 [facility] Start: 07-03-2023 End: 07-21-2023 [facility] Start: 07-01-2023 End: 07-01-2023 ambulatory EMELY CHRISTIAN Not Available Start: 12-27-2022 End: 12-27-2022 Office outpatient visit 15 minutes Faraz Beckham MD Work Phone: Hematology/Oncology Comment on above: CLL (chronic lymphoc ytic leukemia) (HCC) (Primary Dx); Large granular lymphocytosis; Stage 3 chronic kidney disease, unspecified whether stage 3a or 3b CKD (HCC); Type 2 diabetes mellitus 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, unspecified whether beach expert insulin use (HCC) Start: 06-27-2022 End: 06-28-2022 [...] Patient encounter procedure Cruzito Mcgrath Work Phone: [facility] Procedures Date Procedure Procedure Detail Performing Clinician Start: 08-27-2023 Follow-up visit Follow-up NASH GONZALEZ Start: 04-05-2023 Adult depression screening assessment Pmh 1 Start: 12-26-2022 Colonoscopy Faraz miles MD Work Phone: Start: 06-06-[address] CRUZITO SEAY Comment on above: Performed By: #### V ITAD, PSASC #### [facility] [address] [place] [address] Dr. Lara Askew Start: 10-30-2016 Microalbumin [Mass/volume] in Urine by Test strip Pmh 1 History of placement of stent for coronary artery disease History of coronary angioplasty with insertion of stent Debbie Gonzalez MD Work Phone: Plan of Treatment Date Care Activity Detail Author Start: 12-27-2027 Screening for malignant neoplasm of colon Colonoscopy [facility] Start: 06-21-2025 DIABETES SCREEN DIABETES SCREEN [facility] Start: 01-15-2025 Creatinine measurement Serum Creatinine [facility] Start: 09-03-2024 Adult BMI Screening Adult BMI Screening [facility] Start: 09-03-2024 Tobacco Screening Tobacco Screening [facility] Start: 08-27-2024 Adult BMI Screening Adult BMI Screening [facility] Start: 08-27-2024 Tobacco Screening Tobacco Screening [facility] Start: 07-17-2024 End: 01-15-2025 CBC W Auto Differential panel - Blood COMPLETE BLOOD COUNT AND DIFFERENTIAL Lab Routine CLL (chronic lymphocytic leukemia) (HCC) Expected: 07/17/2024 (Approximate), Expires: 01/15/2025 [facility] Comment on above: Expected: 07/17/2024 (Approximate), Expi res: 01/15/2025 Start: 07-17-2024 End: 01-15-2025 Comprehensive metabolic 2000 panel - Serum or Plasma COMPREHENSIVE METABOLIC PANEL Lab Routine CLL (chronic lymphocytic leukemia) (HCC) Expected: 07/17/2024 (Approximate), Expires: 01/15/2025 [facility] Comment on above: Expected: 07/17/2024 (Approximate), Expi res: 01/15/2025 Start: 07-17-2024 End: 01-15-2025 Lactate dehydrogenase [Enzymatic activity/volume] in Serum or Plasma LACTATE DEHYDROGENASE Lab Routine CLL (chronic lymphocytic leukemia) (HCC) Expected: 07/17/2024 (Approximate), Expires: 01/15/2025 [facility] Work Phone: Comment on above: Expected: 07/17/2024 (Approximate), Expi res: 01/15/2025 Start: 07-17-2024 End: 10-16-2024 Urate [Mass/volume] in Serum or Plasma URIC ACID Lab Routine CLL (chronic lymphocytic leukemia) (HCC) Expected: 07/17/2024 (Approximate), Expires: 10/16/2024 [facility] Comment on above: Expected: 07/17/2024 (Approximate), Expi res: 10/16/2024 Start: 07-16-2024 Complete blood count Hemoglobin/Hematocrit [facility] Start: 07-09-2024 End: 07-09-2024 Follow-up encounter 07/09/2024 2:15 PM EST Visit (SP) Office Hematology/Oncology [address] [place] [address] [place] [address] Faarz Beckham MD [address] [place] [address] 6 month follow up lab Hematology/Oncology Comment on above: 6 month follow up lab Start: 07-09-2024 End: 07-09-2024 Patient encounter procedure 07/09/2024 2:00 PM EST Office Visit [facility] [address] [place] [address] 6 month follow up lab [facility] Comment on above: 6 month follow up lab Start: 05-01-2024 Adult BMI Screening Adult BMI Screening [facility] Start: 05-01-2024 Tobacco Screening Tobacco Screening [facility] Start: 04-05-2024 Depression Screening Depression Screening [facility] Start: 03-15-2024 End: 03-15-2024 Patient encounter procedure [facility] Start: 02-24-2024 End: 02-24-2024 Patient encounter procedure [facility] Start: 01-21-2024 Hemoglobin A1c measurement HbA1C [facility] Start: 12-28-2023 HEMOGLOBIN/HEMATOCRIT HEMOGLOBIN/HEMATOCRIT [facility] Start: 12-28-2023 SERUM CREATININE SERUM CREATININE [facility] Start: 12-27-2023 Colonoscopy COLONOSCOPY [facility] Start: 12-27-2023 COLORECTAL CANCER SCREENING COLORECTAL CANCER SCREENING [facility] Start: 10-28-2023 End: 10-28-2023 Patient encounter procedure 10/28/2023 11:00 AM EDT Office Visit [facility] [address] [place] [id number] Gage Norton MD [address] [place] [address] [facility] Start: 09-27-2023 Covid-19 Vaccine () Covid-19 Vaccine () [facility] Start: 09-03-2023 End: 09-03-2023 Patient encounter procedure 09/03/2023 1:00 PM EST Office Visit [facility] [address] [place] [address] Geneva Sanders APRN-HAND MOLD MAKER [address] [place] [address] [facility] Start: 08-27-2023 End: 08-27-2023 Patient encounter procedure 08/27/2023 2:00 PM EST Office Visit [facility] [address] [place] [phone] Debbie Gonzalez MD [address] [place] [address] [facility] Start: 08-21-2023 End: 08-21-2023 Patient encounter procedure 08/21/2023 1:00 PM EST Office Visit [facility] [address] [place] [address] Patria Bhat APRN-HAND MOLD MAKER [address] [place] [address] [facility] Start: 08-20-2023 End: 08-20-2023 Patient encounter procedure 08/20/2023 1:00 PM EST Office Visit [facility] [address] [place] [address] Patria Bhat APRN-HAND MOLD MAKER [address] [place] [address] [facility] Start: 08-18-2023 End: 08-18-2023 Patient encounter procedure 08/18/2023 1:00 PM EST Office Visit [facility] [address] [place] [address] Patria Bhat APRN-HAND MOLD MAKER [address] [place] [address] [facility] Start: 08-14-2023 End: 08-14-2023 Patient encounter procedure 08/14/2023 1:00 PM EST Office Visit [facility] [address] [place] [address] Patria Bhat APRN-HAND MOLD MAKER [address] [place] [address] [facility] Start: 08-13-2023 End: 08-13-2023 Patient encounter procedure 08/13/2023 1:00 PM EST Office Visit [facility] [address] [place] [address] Patria Bhat APRN-HAND MOLD MAKER [address] [place] [address] [facility] Start: 08-11-2023 End: 08-11-2023 Patient encounter procedure 08/11/2023 1:00 PM EST Office Visit [facility] [address] [place] [address] Patria Bhat APRN-HAND MOLD MAKER [address] [place] [address] [facility] Start: 08-07-2023 End: 08-07-2023 Patient encounter procedure 08/07/2023 1:00 PM EST Office Visit [facility] [address] [place] [address] Patria Bhat APRN-HAND MOLD MAKER [address] [place] [address] [facility] Start: 08-06-2023 End: 08-06-2023 Patient encounter procedure 08/06/2023 1:00 PM EST Office Visit [facility] [address] [place] [address] Patria Bhat APRN-HAND MOLD MAKER [address] [place] [address] [facility] Start: 08-05-2023 End: 08-05-2023 Patient encounter procedure 08/05/2023 9:00 AM EST Appointment [facility] [address] [place] [address] Wayne Donald MD [address] [place] [address] [facility] Start: 08-04-2023 End: 08-04-2024 Holter monitor study Holter monitor 24-48 hour Cardiac Services Routine Bradycardia Expected: 08/04/2023, Expires: 08/04/2024 [facility] Work Phone: Comment on above: Expected: 08/04/2023, Expires: Start: 08-04-2023 End: 08-04-2023 Patient encounter procedure 08/04/2023 1:00 PM EST Office Visit [facility] [address] [facility] [place] [phone] Patria Bhat APRN-HAND MOLD MAKER [address] [place] [address] [facility] Start: 07-31-2023 End: 07-31-2023 Patient encounter procedure 07/31/2023 1:00 PM EST Office Visit [facility] [address] [place] [address] Patria Bhat APRN-HAND MOLD MAKER [address] [place] [address] [facility] Start: 07-30-2023 End: 07-30-2023 Patient encounter procedure 07/30/2023 1:00 PM EST Office Visit [facility] [address] [place] [address] Patria Bhat APRN-HAND MOLD MAKER [address] [place] [address] [facility] Start: 07-28-2023 End: 07-28-2023 Patient encounter procedure 07/28/2023 1:00 PM EST Office Visit [facility] [address] [place] [address] Patria Bhat APRN-HAND MOLD MAKER [address] [place] [address] [facility] Start: 07-24-2023 End: 07-24-2023 Patient encounter procedure 07/24/2023 1:00 PM EST Office Visit [facility] [address] [place] [address] Patria Bhta APRN-HAND MOLD MAKER [address] [place] [address] [facility] Start: 07-23-2023 End: 07-23-2023 Patient encounter procedure 07/23/2023 1:00 PM EST Office Visit [facility] [address] [place] [phone] Patria Bhat, ENROBER-HAND MOLD MAKER [address] [place] [address] [facility] Start: 07-21-2023 Advance Directive Discussion Advance Directive Discussion [facility] Start: 07-21-2023 Behavioral Health Screening Behavioral Health Screening [facility] Start: 06-28-2023 End: 12-28-2023 CBC W Auto Differential panel - Blood CBC + DIFF Lab Routine CLL (chronic lymphocytic leukemia) (HCC) Large granular lymphocytosis Expected: 06/28/2023 (Approximate), Expires: 12/28/2023 [facility] Work Phone: Comment on above: Expected: 06/28/2023 (Approximate), Expi res: 12/28/2023 Start: 06-28-2023 End: 12-28-2023 Comprehensive metabolic 2000 panel - Serum or Plasma COMP METABOLIC PANEL Lab Routine CLL (chronic lymphocytic leukemia) (HCC) Large granular lymphocytosis Expected: 06/28/2023 (Approximate), Expires: 12/28/2023 [facility] Work Phone: Comment on above: Expected: 06/28/2023 (Approximate), Expi res: 12/28/2023 Start: 06-28-2023 End: 12-28-2023 Lactate dehydrogenase [Enzymatic activity/volume] in Serum or Plasma LD LACTATE DEHYDRO Lab Routine CLL (chronic lymphocytic leukemia) (HCC) Large granular lymphocytosis Expected: 06/28/2023 (Approximate), Expires: 12/28/2023 [facility] Work Phone: Comment on above: Expected: 06/28/2023 (Approximate), Expi res: 12/28/2023 Start: 06-28-2023 End: 08-28-2023 Urate [Mass/volume] in Serum or Plasma URIC ACID BLOOD Lab Routine CLL (chronic lymphocytic leukemia) (HCC) Large granular lymphocytosis Expected: 06/28/2023 (Approximate), Expires: 08/28/2023 [facility] Work Phone: Comment on above: Expected: 06/28/2023 (Approximate), Expi res: 08/28/2023 Start: 05-22-2023 Hemoglobin A1c/Hemoglobin.total in Blood HBA1C [facility] Start: 03-21-2023 COVID-19 Vaccine () COVID-19 Vaccine () [facility] Start: 03-21-2023 Influenza vaccination Influenza Vaccine [facility] Start: 07-21-2022 ADVANCE DIRECTIVE DISCUSSION ADVANCE DIRECTIVE DISCUSSION [facility] Start: 07-21-2022 DEPRESSION ASSESSMENT DEPRESSION ASSESSMENT [facility] Start: 06-21-2022 End: 08-21-2022 FISH FOR CLL [facility] Work Phone: Comment on above: Expected: 06/21/2022, Expires: 3 Start: 06-21-2022 End: 08-21-2022 PROTEIN ELECTROPHORESIS SERUM W/INTERP [facility] Work Phone: Comment on above: Expected: 06/21/2022, Expires: 3 Start: 03-21-2022 Influenza vaccination INFLUENZA (#1) [facility] Start: 07-21-2021 ADVANCE DIRECTIVE DISCUSSION ADVANCE DIRECTIVE DISCUSSION [facility] Start: 07-21-2021 DEPRESSION ASSESSMENT DEPRESSION ASSESSMENT [facility] Start: 06-24-2019 PNEUMOCOCCAL: 65+ (2 - PPSV23 if available, else PCV20) PNEUMOCOCCAL: 65+ (2 - PPSV23 if available, else PCV20) [facility] Start: 08-19-2018 Pneumococcal Vaccine: 65+ (2 of 2 - PPSV23 or PCV20) Pneumococcal Vaccine: 65+ (2 of 2 - PPSV23 or PCV20) [facility] Start: 08-19-2018 PNEUMOCOCCAL: 65+ (2 - PPSV23 if available, else PCV20) PNEUMOCOCCAL: 65+ (2 - PPSV23 if available, else PCV20) [facility] Start: 10-30-2017 Urine screening for protein Urine Microalbumin [facility] Start: 2012 Fall Risk Screening Fall Risk Screening [facility] Start: 2012 PNEUMOCOCCAL: 65+ (1 - PCV) PNEUMOCOCCAL: 65+ (1 - PCV) [facility] Start: 2007 RSV Vaccine (1 - 1-dose 60+ series) RSV Vaccine (1 - 1-dose 60+ series) [facility] Start: 1997 Administration of varicella zoster vaccine Zoster (Shingles) Vaccine (1 of 2) [facility] Start: 1997 SHINGRIX VACCINE (1 of 2) SHINGRIX VACCINE (1 of 2) [facility] Start: 1992 COLOGUARD (FIT-DNA) COLOGUARD (FIT-DNA) [facility] Start: 1992 Colonoscopy COLONOSCOPY [facility] Start: 1992 COLORECTAL CANCER SCREENING COLORECTAL CANCER SCREENING [facility] Start: [address] COLONOGRAPHY [facility] Start: 1992 DIABETES SCREEN DIABETES SCREEN [facility] Start: 1992 FECAL OCCULT BLOOD FECAL OCCULT BLOOD [facility] Start: 1992 SIGMOIDOSCOPY SIGMOIDOSCOPY [facility] Start: 1982 LIPID SCREEN LIPID SCREEN [facility] Start: 1966 DTaP,Tdap and Td Vaccines (1 - Tdap) DTaP,Tdap and Td Vaccines (1 - Tdap) [facility] Start: 1966 SHINGRIX VACCINE (1 of 2) SHINGRIX VACCINE (1 of 2) [facility] Start: 1966 Urine microalbumin profile [facility] Start: 1965 Adult BMI Follow Up Plan Adult BMI Follow Up Plan [facility] Start: 1965 ANNUAL PCP TEAM CHRONIC DISEASE VISIT ANNUAL PCP TEAM CHRONIC DISEASE VISIT [facility] Start: 1965 Hepatitis B surface antibody level LDL CHOLESTEROL [facility] Start: 1965 HEPATITIS C SCREENING HEPATITIS C SCREENING [facility] Start: 1965 Hepatitis C screening Hepatitis C Screening [facility] Start: 1957 3 comp foot exam completed DIABETIC FOOT EXAM [facility] Start: 1957 Diabetic foot examination Diabetic Foot Exam [facility] Start: 1957 Glaucoma screening Dilated Retinal Exam [facility] Start: 1957 Hepatitis B screening URINE ALBUMIN:CREATININE RATIO [facility] Start: 1957 Hepatitis C antibody, confirmatory test DILATED RETINAL EXAM [facility] Start: 01-18-1948 COVID-19 VACCINE (#1) COVID-19 VACCINE (#1) [facility] Start: 1947 ABDOMINAL AORTIC ANEURYSM SCREENING ABDOMINAL AORTIC ANEURYSM SCREENING [facility] Start: 1947 Glaucoma screening Diabetic Ophthalmology Exam [facility] Start: 1947 Medicare Annual Wellness Visit Medicare Annual Wellness Visit [facility] CARDIOPULMONARY REHABILITATION CARDIOPULMONARY REHABILITATION Cardiac Services [...] 08/25/2023 [facility] Comment on above: Ordered: 08/25/2023 [facility] Immunizations Immunization Date Immunization Notes Care Provider Fa cili 04-02-2022 influenza, high-dose , quadrivalent vaccine (FLUZONE HIGH DOSE QUADRIVALENT) Faraz Beckham MD Work Phone: [facility] 04-02-2022 influenza virus vaccine, unspecified formulation Pmh 1 [facility] [email or web address] 03-30-2020 influenza, high dose seasonal, preservative-free Faraz Beckham MD Work Phone: [facility] 04-01-2019 influenza, high dose seasonal, preservative-free Faraz Beckham MD Work Phone: [facility] 06-24-2018 pneumococcal conjuga te vaccine, 13 valent Faraz Beckham MD Work Phone: [facility] 05-13-2018 influenza, high dose seasonal, preservative-free Faraz Beckham MD Work Phone: [facility] 05-28-2017 influenza, injectabl e, quadrivalent, contains preservative Faraz Beckham MD Work Phone: [facility] Payers Date Payer Category Payer Self-pay [id number] 2021 Private Health Insurance [id number] 2012 Medicare [id number] 1959 Medicare [id number] 1959 Unknown [id number] 1947 Unknown [id number] 2.16.84 0.1.147444.3.579.2.593 1947 Unknown [id number] 2.16.84 0.1.081606.3.579.2.593 1947 Unknown [id number] 2.16.8 40.1.765850.3.579.2.1286 1947 Unknown [id number] 2.16.8 40.1.415208.3.579.2.1286 1947 Unknown [id number] 2.16.8 40.1.366784.3.579.2.1286 1947 Unknown [id number] 2.16.8 40.1.258032.3.579.2.1286 1947 Unknown [id number] 2.16.8 40.1.008267.3.579.2.1286 1947 Unknown [id number] 2.16.8 40.1.555672.3.579.2.1286 1947 Unknown [id number] 2.16.8 40.1.161496.3.579.2.1286 1947 Unknown [id number] 2.16.8 40.1.303124.3.579.2.1286 1947 Unknown [id number] 2.16.8 40.1.962938.3.579.2.1285 1947 Unknown [id number] 2.16.8 40.1.395664.3.579.2.1286 1947 Unknown [id number] 2.16.8 40.1.059140.3.579.2.1285 1947 Unknown [id number] 2.16.8 40.1.561773.3.579.2.1286 1947 Unknown [id number] 2.16.84 0.1.095535.3.579.2.1285 1947 Unknown [id number] 2.16.84 0.1.276251.3.579.2.1286 1947 Unknown [id number] 2.16.84 0.1.666878.3.579.2.1285 1947 Unknown [id number] 2.16.84 0.1.763065.3.579.2.1285 1947 Unknown [id number] 2.16.84 0.1.645485.3.579.2.1285 1947 Unknown [id number] 2.16.84 0.1.315543.3.579.2.1286 1947 Unknown [id number] 2.16.8 40.1.721114.3.579.2.1286 1947 Unknown [id number] 2.16.84 0.1.038160.3.579.2.1286 1947 Unknown [id number] 2.16.84 0.1.260779.3.579.2.1286 1947 Unknown [id number] 2.16.84 0.1.191831.3.579.2.1286 1947 Unknown [id number] 2.16.84 0.1.783046.3.579.2.1286 1947 Unknown [id number] 2.16.84 0.1.231899.3.579.2.1286 1947 Unknown [id number] 2.16.84 0.1.342672.3.579.2.1286 1947 Unknown [id number] 2.16.84 0.1.852054.3.579.2.1286 1947 Unknown [id number] 2.16.84 0.1.525503.3.579.2.1286 1947 Unknown [id number] 2.16.840 .1.794748.3.579.2.1286 1947 Unknown [id number] 2.16.84 0.1.082818.3.579.2.1286 1947 Unknown [id number] 2.16.84 0.1.874343.3.579.2.1259 1947 Unknown [id number] 2.16.84 0.1.744206.3.579.2.1259 1947 Unknown [id number] 2.16.84 0.1.177811.3.579.2.1259 1947 Unknown [id number] 2.16.84 0.1.822125.3.579.2.1259 1947 Unknown [id number] 2.16.84 0.1.188468.3.579.2.1259 1947 Unknown [id number] 2.16.84 0.1.936389.3.579.2.1259 1947 Unknown [id number] 2.16.840 .1.906882.3.579.2.1259 1947 Unknown [id number] 2.16.840 .1.883716.3.579.2.1259 Unknown [id number] 2.16.8 40.1.683713.3.579.2.531 Worker's Compensation [id number] Social History Date Type Detail Facility Tobacco smoking stat [facility] Unknown if ever smoked [facility] Start: 1945 Sex Assigned At Male [facility] Start: 06-18-[address] [facility] Smokes tobacco daily [facility] End: 07-21-2019 History of tobacco use Cigarette Smoker [facility] History of tobacco use Passive smoker [facility] Start: 06-18-2022 End: 06-21-2022 Tobacco use and exposure Smokeless tobacco non-user [facility] Start: 1945 Sex Assigned At Not on file [facility] Start: 01-16-2021 End: 06-21-2022 Tobacco smoking status NHIS Ex-smoker [facility] End: 07-21-2019 History of tobacco use Current smoker [facility] Start: 06-21-2022 End: 01-16-2024 Alcohol intake Not Asked [facility] Start: 06-11-2022 End: 06-21-2022 Exposure to SARS-CoV-2 (event) Not sure [facility] Start: 05-06-2022 End: 12-27-2022 Cigarettes smoked current (pack per day) - Reported 0.5 [facility] Start: 05-01-2023 End: 09-03-2023 Alcohol intake Current drinker of alcohol (finding) [facility] Start: 08-09-2019 End: 12-27-2022 Alcohol Use Disorder Identification Test - Consumption [AUDIT-C] [facility] Frequency of Alcohol Consumption Never [facility] Start: 05-06-2022 Tobacco Comment 4-5 cigarettes per day [facility] Start: 08-07-2018 Alcohol Comment once a month [facility] Medical Equipment Procedure Code Equipment Code Equipment Origin al Text Equipment Identifier Dates Mesh [id number] Pro hotel houseman Srg - Sna - [id number] Start: 11-06-2021 System Cor Stnt 3.5mm X 23mm 145cm [employer] Arlin - [id number] FDA Start: 04-07-2023 Goals Date Patient Goal Desired Activity /State Personal health goal Comment on above: Formatting of this n ote might be different from the original. Evaluation of progress towards goal: pt wants to discharge home independently Clinical Notes 06-21-2022 to 03-05-2024 Faraz Beckham MD - 01/16/2024 2:45 PM EDTPatient InstructionsGeneva Sanders APRN-[facility] - 09/03/2023 1:00 PM ESTMolionel Gonzalez MD - 08/27/2023 2:00 PM ESTPatient Instructions Note Date & Type Note Facility 03-05-2024 Note XR CHEST 2 VWS Procedure: Chest x-ray performed Number of views:PA and lateral History:Weakness and fatigue Comparison:04/04/2023 Findings: The heart and lungs show no acute findings, and the mediastinum and debbie are grossly negative . Impression: No acute change. Finalized by Aurelia Payton DO on 03/05/2024 4:[address] [facility] 01-16-2024 History of Present illness Narrative Images from the original note were not included. NAME: Ila Morejon [facility] NO.: [id number] DATE OF SERVICE: January 16, 2024 (Lory) [...] Reverse Chronological Order 04/04/2023 - Admitted to [facility] with NSTEMI Underwent placement of drug eluting [...] Has been sleeping more, especially since the PA. Updated Visit, December 27, 2022: 13 year [...] which included preparing to see the patient, [id number]-[id number] patient care, completing clinical documentation, obtaining and/or reviewing separately obtained history, performing a medically appropriate examination, counseling and educating the patient/family/caregiver, ordering medications, tests, or procedures, and independently interpreting results (not separately reported). Faraz Beckham MD, CPE Hematology and Oncology Services Provided at: [place], [place] Scribe Attestation: This note was scribed [...] under my direction. CC: Cruzito Mcgrath MD ([facility]) [address] [place] [address] documented in this encounter [facility] 01-16-2024 Note HNO ID: [id number] Author: FARAZ BECKHAM MD Service: ? Author Type: Physician Type: Progress Notes Filed: 01/16/2024 18:22 Note Text: NAME: Ila Morejon [facility] NO.: [id number] DATE OF SERVICE: January 16, 2024 (Lory) [...] Has been sleeping more, especially since the PA. Updated Visit, December 27, 2022: 13 year [...] 20 mg tablet (more content not included)... [facility] 01-16-2024 Instructions Faraz Beckham MD - 01/16/2024 2:33 PM EDT RTC in 6 months, with labs same day. documented in this encounter [facility] 09-03-2023 History of Present illness Narrative Ila Morejon Date of visit: 09/03/2023 Date of : 1945 Age: 78 y.o. Patient Active Problem List Diagnosis Coronary artery disease involving hopi coronary artery of hopi heart without angina pectoris Abnormal result of cardiovascular function study, unspecified Hypertension Type 2 diabetes mellitus 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 ([facility]) Status post angioplasty with stent PAD (peripheral artery disease) ([facility]) Claudication ([facility]) Bilateral carotid artery stenosis Mixed hyperlipidemia Asymptomatic bradycardia NSTEMI (non-ST elevated myocardial infarction) ([facility]) No Known Allergies Current Outpatient Medications Medication [...] mg total) by mouth in the morning. wbwdfpvc-ycmj-RW-calcium &mins (THERAGRAN-M) 9 mg iron-400 mcg tablet [...] sonam shlomo with ep myles while ep md in office - shlomo w pt History of Present Illness Ila Morejon is a 78-year-old with history of ASCVD/PCI 2015, diabetes, hypertension, peripheral artery disease, sleep apnea, [...] work 30 hours per week for the [employer]. Past Medical History: Diagnosis Date Abnormal result of cardiovascular function study, unspecified Coronary atherosclerosis due to calcified coronary lesion Dental disease full dentures Diabetes mellitus ([facility]) Diabetes mellitus type 2, controlled ([facility]) Hyperlipidemia Hypertension Sleep apnea bipap Visual impairment No data recorded No data recorded No data recorded Past Surgical History: Procedure Laterality Date ANGIOPLASTY Bilateral 12/2020 legs CARDIAC CATHETERIZATION 2016 stents x2 Cardiac catheterization N/A 04/07/2023 Performed by Tayler Corey MD at [facility] CARDIAC CATH LABS COLONOSCOPY N/A 12/26/2022 Performed by Chino Raza DO at [facility] Coronary angiogram only N/A 04/07/2023 Performed by Tayler Corey MD at [facility] CARDIAC CATH LABS DAVINCI REPAIR HERNIA INGUINAL Left 11/06/2021 Performed by Chino Raza DO at [facility] drug eluting stent right coronary artery N/A 04/07/2023 Performed by Tayler Corey MD at [facility] CARDIAC CATH LABS SKIN BIOPSY Family [...] Cardiac Electrophysiology 2. Coronary artery disease involving hopi coronary artery of hopi heart without angina pectoris 3. Hypertension, unspecified type 4. NSTEMI (non-ST elevated myocardial infarction) ([facility]) Sinus node dysfunction ASCVD/PCI March 2023 Preserved [...] file. PCP: CRUZITO MCGRATH MD Referring Physician: eDbbie Gonzalez MD [address] [place] [address] OXANA Lopez 09/03/23 1256 documented in this encounter [facility] 08-27-2023 History of Present illness Narrative Ila Morejon Date of visit: 08/27/2023 Date of : 1945 Age: 78 y.o. Patient Active Problem List Diagnosis Coronary artery disease involving hopi coronary artery of hopi heart without angina pectoris Abnormal result of cardiovascular function study, unspecified Hypertension Type 2 diabetes mellitus 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 ([facility]) Status post angioplasty with stent PAD (peripheral artery disease) ([facility]) Claudication ([facility]) Bilateral carotid artery stenosis Mixed hyperlipidemia Asymptomatic bradycardia NSTEMI (non-ST elevated myocardial infarction) ([facility]) No Known Allergies Current Outpatient Medications Medication [...] mg total) by mouth in the morning. hnzipupw-adnl-ZR-calcium &mins (THERAGRAN-M) 9 mg iron-400 mcg tablet [...] lesion Dental disease full dentures Diabetes mellitus ([facility]) Diabetes mellitus type 2, controlled ([facility]) Hyperlipidemia Hypertension Sleep apnea bipap Visual impairment No data recorded No data recorded No data recorded Past Surgical History: Procedure Laterality Date ANGIOPLASTY Bilateral 12/2020 legs CARDIAC CATHETERIZATION 2016 stents x2 Cardiac catheterization N/A 04/07/2023 Performed by Tayler Corey MD at [facility] CARDIAC CATH LABS COLONOSCOPY N/A 12/26/2022 Performed by Chino Raza DO at [facility] Coronary angiogram only N/A 04/07/2023 Performed by Tayler Corey MD at [facility] CARDIAC CATH LABS DAVINCI REPAIR HERNIA INGUINAL Left 11/06/2021 Performed by Chino Raza DO at [facility] drug eluting stent right coronary artery N/A 04/07/2023 Performed by Tayler Corey MD at [facility] CARDIAC CATH LABS SKIN BIOPSY Family [...] by mouth 3 (three) times a day. mcbpbohv-iqwb-PE-calcium &mins (THERAGRAN-M) 9 mg iron-400 mcg tablet [...] Referring Physician: Cruzito Mcgrath MD [address] [place] [id number] documented in this encounter [facility] 08-26-2023 Miscellaneous Notes Called patient to remind them to bring their most current copy of their medication list with them to their appt. Patient verbalizes understanding. documented in this encounter [facility] 08-26-2023 Telephone encounter Note Called patient to remind them to bring their most current copy of their medication list with them to their appt. Patient verbalizes understanding. [facility] 08-04-2023 History of Present illness Narrative Patient noted to have a history of bradycardia Scheduled pt for 48 HM on 08/05/23 at 9am. Made appt in the [place] office for 08/27/23 at 2pm. Called pt and he verbalizes understanding.slm documented in this encounter [facility] 08-04-2023 History of Present illness Narrative Cardiac rehab has noted asymptomatic bradycardia with heart rate into the 20s. Holter monitor ordered Patient should have follow-up in the office documented in this encounter [facility] 07-16-2023 Note HNO ID: [id number] Author: Faraz Beckham MD Service: ? Author Type: Physician Type: Progress Notes Filed: 07/16/2023 7:35 PM Note Text: NAME: Ila Morejon CLINIC NO.: [id number] DATE OF SERVICE: July 16, 2023 (Lory) [...] Reverse Chronological Order 04/04/2023 - Admitted to [facility] with NSTEMI Underwent placement of drug eluting [...] Has been sleeping more, especially since the PA. Updated Visit, December 27, 2022: 13 year [...] D3, 10 mcg (more content not included)... [facility] 12-27-2022 Instructions Faraz Beckham MD - 12/27/2022 2:28 PM EDT RTC in 6 months with labs same day. documented in this encounter [facility] 12-27-2022 History of Present illness Narrative Images from the original note were not included. NAME: Ila Morejon CLINIC NO.: [id number] DATE OF SERVICE: December 27, 2022 (Lory) [...] which included preparing to see the patient, ckre-gj-yuje patient care, completing clinical documentation, obtaining and/or reviewing separately obtained history, performing a medically appropriate examination, counseling and educating the patient/family/caregiver, ordering medications, tests, or procedures, and independently interpreting results (not separately reported). Faraz Beckham MD, [facility] Hematology and Oncology Services Provided at: [place], [place] CC: Cruzito Mcgrath MD ([facility]) [address] [facility] [id number] documented in this encounter [facility] 06-27-2022 Instructions Faraz Beckham MD - 06/27/2022 5:37 PM EST Keep prior documented in this encounter [facility] 06-27-2022 History of Present illness Narrative Images from the original note were not included. NAME: Ial Morejon CLINIC NO.: [id number] DATE OF SERVICE: June 27, 2022 (Lory) [...] CPE Hematology and Oncology Services Provided at: [place], [place] CC: Cruzito Mcgrath MD ([facility]) [address] [facility] [address] documented in this encounter [facility] 06-27-2022 Nurse Note Clinical questionnaires incomplete due to phone call. Miryam Gunter MA documented in this encounter [facility] 06-21-2022 Instructions Faraz Beckham MD - 06/21/2022 3:40 PM EST Phone call next week with results RTC in 6 months with labs same day. documented in this encounter [facility] 06-21-2022 History of Present illness Narrative Images from the original note were not included. NAME: Ila Morejon CLINIC NO.: [id number] DATE OF SERVICE: June 21, 2022 Referring [...] which included preparing to see the patient, ueci-ep-psua patient care, completing clinical documentation, obtaining and/or reviewing separately obtained history, performing a medically appropriate examination, counseling and educating the patient/family/caregiver, ordering medications, tests, or procedures, and independently interpreting results (not separately reported). Faraz Beckham MD, CPE Hematology and Oncology Services Provided at: [place], [place] CC: Cruzito Mcgrath MD (Dr) [address] [facility] [address] documented in this encounter [facility] Evaluation note No assessment inform ation available [facility] Evaluation note Diagnosis Lymphocytosis- Primary Lymphocytosis (symptomatic) documented [facility] Diagnosis CLL (chronic lymphocytic leukemia) (HCC)- Primary Chronic lymphoid leukemia, without mention of having achieved remission Large granular lymphocytosis Lymphocytosis (symptomatic) documented [facility] Diagnosis CLL (chronic lymphocytic leukemia) (HCC)- Primary Chronic lymphoid leukemia, without mention of having achieved remission Large granular lymphocytosis Lymphocytosis (symptomatic) Stage 3 chronic kidney disease, unspecified whether stage 3a or 3b CKD (HCC) Type 2 diabetes mellitus 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, unspecified whether beach expert insulin use (HCC) [facility] Diagnosis Bradycardia- Primary Other specified cardiac dysrhythmias [facility] Diagnosis History of coronary angioplasty with insertion of stent- Primary Pulmonary hypertension ([facility]) Other chronic pulmonary heart diseases Primary hypertension Unspecified essential hypertension Hx of hyperlipidemia Sinus pause [facility] Diagnosis Coronary artery disease involving hopi coronary artery of hopi heart without angina pectoris- Primary Sinus pause Hypertension, unspecified type NSTEMI (non-ST elevated myocardial infarction) ([facility]) Acute myocardial infarction, subendocardial infarction, episode of care unspecified [facility] Diagnosis CLL (chronic lymphocytic leukemia) (HCC)- Primary Chronic lymphoid leukemia, without mention of having achieved remission Large granular lymphocytosis Lymphocytosis (symptomatic) Stage 3 chronic kidney disease, unspecified whether stage 3a or 3b CKD (HCC) documented in this encounter [facility]Not on filedocumented in this encounterPro[facility] SystemInstructionsNot on filedocumented in this encounterProMedica Health SystemInstructionsNot on filedocumented in this encounterProMedica Health SystemInstructionsNot on filedocumented in this encounterProMedica [facility] System InstructionsNot on filedocumented in this encounterProMedica Health SystemReason for referral (narrative)* Consultation (Routine) - Pending Review Specialty Diagnoses / Procedures Referred By Lynne paniagua Referred To Contact Cardiology Diagnoses Sinus pause Debbie Gonzalez MD [address] [place] [address] Jerry An MD [address] [address] Referral ID Status Reason Start Date Expiration Date Visits Requested Visits Authorized [id number] Pending Review Specialty Services Required 08/27/2023 08/26/2024 1 1 [facility] for visit Narrative* Consultation (Routine) - Pending Review Specialty Diagnoses / Procedures Referred By Lynne paniagua Referred To Contact Cardiac Rehabilitation Diagnoses S/P drug eluting coronary stent placement Procedures [facility] - Cardiac Rehab - [place], [place] Tayler Corey MD [address] [place] [address] [facility] Cardiac Rehab Billing [address] [place] [address] Referral ID Status Reason Start Date Expiration Date V isits Requested Visits Authorized [id number] Pending Review 04/07/2023 04/06/2024 36 36 [facility] Chief Complaint and Reason for Visit Chief Complaint Z01.818 I70.213 Chief Complaint Unknown Advance Directives No Advanced Directives Records Found Advance Directive Response Recorded Date/ Time Advance Directives No January 01 4:38pm Documents on File Type Date Recorded 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 Power of Hunter Guide 04/14/2023 3:27 PM Living Will 04/14/2023 3:19 PM Latest Code Status on File Code Status Date Activated Date Inactivated Comments Full Code 04/05/2023 2:40 PM 04/08/2023 6:56 PM Documents on File Type Date Recorded 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 Power of Hunter Guide 04/14/2023 3:27 PM Living Will 04/14/2023 3:19 [...] 24-48 hour Wayne Donald MD [address] [place] [address] Referral ID Status Reason Start Date Expiration Date V isits Requested Visits Authorized [id number] Pending Review 08/04/2023 08/03/2024 1 1 Additional [...] and content) DATE CREATED AUTHOR 06/10/2022 [facility] DATE CREATED AUTHOR AUTHOR'S ORGANIZ ATION 09/05/2023 [facility] DATE CREATED AUTHOR AUTHOR'S ORGANIZ ATION 01/18/2024 [facility] DATE CREATED AUTHOR AUTHOR'S ORGANIZ ATION 03/04/2024 [facility] DATE CREATED AUTHOR AUTHOR'S ORGANIZ ATION 03/07/2024 [facility] DATE CREATED AUTHOR AUTHOR'S ORGANIZ ATION 03/10/2024 [facility] EP[employer] Source Comments (unrecognize d section and content) In the event this informatio n is protected by the Federal Confidentiality of Alcohol and Drug Abuse Patient Records regulations: The Federal rules restrict any use of the information to criminally investigate or prosecute any alcohol or drug abuse patient.[facility] Campus[facility] the event this information is protected by the Federal Confidentiality of Alcohol and Drug Abuse Patient Records regulations: The Federal rules restrict any use of the information to criminally investigate or prosecute any alcohol or drug abuse patient.[facility] Campus[facility] the event this information is protected by the Federal Confidentiality of Alcohol and Drug Abuse Patient Records regulations: The Federal rules restrict any use of the information to criminally investigate or prosecute any alcohol or drug abuse patient.[facility] CampusIn the event this information is protected by the Federal Confidentiality of Alcohol and Drug Abuse Patient Records regulations: The Federal rules restrict any use of the information to criminally investigate or prosecute any alcohol or drug abuse patient.[facility] CampusIn the event this information is protected by the Federal Confidentiality of Alcohol and Drug Abuse Patient Records regulations: The Federal rules restrict any use of the information to criminally investigate or prosecute any alcohol or drug abuse patient.[facility] Reason for Visit (unrecogniz ed section and content) Reason Comments leukocytosis Reason Comments Established Patient Reason Comments CLL Reason Comments Follow-up OV F/U 1 MO BRADYCAR FUNMILAYO, HM DONE PER LLD SCHED W/PT Reason Comments New Patient ov (consult) per MS sinus pause states needs ppm imp - per [facility] with ep myles while ep md in office - shlomo w pt Specialty Diagnoses / Procedures Referred By Contrebeka t Referred To Contact Cardiology Diagnoses Sinus pause Debbie Gonzalez MD [address] [place] [address] Jerry An MD [address] [address] Referral ID Status Reason Start Date Expiration Date Visits Requested Visits Authorized [id number] Pending Review Specialty Services Required 08/27/2023 08/26/2024 1 1 Reason Comments Leukemia Care Teams (unrecognized sec tion and content) Dishwasher Busser Relationship Specialty Start Date End Date Cruzito Mcgrath [address] [place] [address] PCP - General Family Medicine 06/21/22 Dishwasher Busser Relationship Specialty Start Date End Date Cruzito Mcgrath [address] [facility] [place] [address] PCP - General Family Medicine 06/21/22 Dishwasher Busser Relationship Specialty Start Date End Date Cruzito Mcgrath [address] [facility] [place] [address] PCP - General Family Medicine 06/21/22 Dishwasher Busser Relationship Specialty Start Date End Date Cruzito Mcgrath MD [address] [place] [address] PCP - General Family Medicine 04/19/21 Dishwasher Busser Relationship Specialty Start Date End Date Cruzito Mcgrath MD [address] [place] [place] [address] PCP - General Family Medicine 04/19/21 Dishwasher Busser Relationship Specialty Start Date End Date Cruzito Mcgrath MD [address] [place] [address] PCP - General Family Medicine 04/19/21 Dishwasher Busser Relationship Specialty Start Date End Date Cruzito Mcgrath MD [address] [place] [address] PCP - General Family Medicine 04/19/21 Dishwasher Busser Relationship Specialty Start Date End Date Cruzito Mcgrath MD [address] [place] [address] PCP - General Family Medicine 04/19/21 Dishwasher Busser Relationship Specialty Start Date End Date Cruzito Mcgrath MD [address] [place] [address] PCP - General Family Medicine 04/19/21 Dishwasher Busser Relationship Specialty Start Date End Date Cruzito Mcgrath MD [address] [place] [address] PCP - General Family Medicine 04/19/21 Dishwasher Busser Relationship Specialty Start Date End Date Cruzito Mcgrath MD [address] [place] [address] PCP - General Family Medicine 04/19/21 Dishwasher Busser Relationship Specialty Start Date End Date Cruzito Mcgrath MD [address] [place] [address] PCP - General Family Medicine 04/19/21 Dishwasher Busser Relationship Specialty Start Date End Date Cruzito Mcgrath MD [address] [place] [address] PCP - General Family Medicine 04/19/21 Dishwasher Busser Relationship Specialty Start Date End Date Cruzito Mcgrath MD [address] [place] [address] PCP - [facility] Medicine 04/19/21 Dishwasher Busser Relationship Specialty Start Date End Date Cruzito Mcgrath MD [address] [place] [address] PCP - [facility] 04/19/21 Dishwasher Busser Relationship Specialty Start Date End Date Cruzito Mcgrath MD [address] [place] [address] PCP - [facility] Medicine 04/19/21 Team Status: Inactive Member Role Status Dates Arminda Valverde DO Attending Provider Active Sta rt: December 27, 2023 End: December 27, 2023 Dishwasher Busser Relationship Specialty Start Date End Date Cruzito Mcgrath [address] [place] [place] [address] PCP - General Family Medicine 06/21/22 FOR [...] BE BASED ON THE PRIMARY CLINICAL RECORDS. [facility] [employer] [facility]. provides no warranty or guarantee of the accuracy or completeness of information in this document.
== END 2024-03-19 08:15 | disposition home or self-care (01) ==
LOC: MRI 08:14
PROVIDERS: PCP Family Medicine; Visit Provider Family Medicine
DX: M54.16 Radiculopathy, lumbar region (principal); M51.36 Other intervertebral disc degeneration, lumbar region
CPT/HCPCS: 72148

== ENCOUNTER 2024-04-19 09:19 | Outpatient (OUT) | payer MEDICARE, SELFPAY ==
--- NOTE | 2024-04-19 | PCN_ITS ---
CARDIAC STRESS TEST Requesting Physician: Hao Cardona M.D. Procedure Date: 04/19/2024 PERFORMING PROVIDER: Keanu Taveras M.D. INDICATION: Bradycardia. STRESS TEST TYPE: Treadmill stress test with Bon protocol. Resting EKG: Abnormal resting EKG with marked sinus bradycardia with ST and T- wave abnormality, concerning for moderate ischemia. Resting heart rate: 41 Peak heart rate: 80 Resting blood pressure: 112/60 Peak blood pressure: 136/50 Peak maximal heart rate percentage: 65% Exercise time: 2 minutes 4 seconds Stage reached: 1 Max METS: 4.6 Reason for termination: Fatigue. Functional capacity: Poor. Blood pressure response: Normal. ST/T- wave changes: T-wave inversions in leads 2, 3, AVF, V5, V6. Symptoms: Fatigue, shortness of breath. No chest pain or dizziness. Arrhythmias: PVCs. CONCLUSIONS: 1. Resting EKG is abnormal with marked sinus bradycardia and ST/T-wave abnormality in the inferolateral leads. 2. Patient with poor functional capacity, patient exercised for 2 minutes and 4 seconds, reaching stage 1 with 4.6 METS. 3. Given that target heart rate was not met, this study is non-diagnostic for ischemia. 4. Patient only achieved 65% of peak maximal heart rate. Consider chronotropic incompetence versus poor functional status. 5. Patient had frequent PVCs, lost in balance recovery. Clinical correlation advised. MTDD
--- OUTSIDE RECORDS SUMMARY | 2024-04-19 09:31 | XMS_ITS | CCD ---
Author Organization [facility] Care Team Providers Care Vendor Management Consultant Name Role Phone Cruzito Mcgrath Primary Care [...] Unavailable Unavailable Primary Care Provider Unavailabl e Cruzito Mcgrath Primary Care Provider Cruzito Mcgrath MD Primary Care Provider GENEVA SANDERS Attending Unavail able DEBBIE GONZALEZ Referring Unavailable CRUZITO MCGRATH Primary Care Unavailable DO Arminda Valverde Attending Provider [phone] Cruzito Mcgrath Primary Care Provider FARAZ BECKHAM Attending Unavailable CRUZITO MCGRATH Primary Care Unavailable ABHYANKAR, FARAZ Referring Unavailable NADERER, CRUZITO Yan Primary Care Unavailable ABHYANKAR, FARAZ Referring Unavailable NADERERCRUZITO Primary Care Unavailable ABHYANKAR, FARAZ Referring Unavailable ABCULLENANKFRANKY, FARAZ Attending Unavailable CRUZITO MCGRATH Primary Care Unavailable BHAVANI, FARAZ Referring Unavailable TAYLER COREY Referring Unavailabl e NADERER, [...] Primary Care Unavailable JUDAH COSTELLO Attending Unavailable TRANG, JUDAH Queen Referring Unavailable NADERER, CRUZITO Primary Care Unavailable NADERER, CRUZITO Primary Care Unavailable MISTRY, DANIEL Attending Unavailable MISTRY, DANIEL Attending Unavailable MISTRY, DANIEL Referring Unavailable NADERER, CRUZITO Primary Care [...] Unavailabl e NADERER, CRUZITO Primary Care Unavailable LURDESERER, CRUZITO Attending Unavailable LURDESERER, CRUZITO Attending Unavailable NADERER, CRUZITO Attending Unavailable BRAD STINSON Attending Unavailable NADERER, CRUZITO Attending Unavailable NADERER, CRUZITO Attending Unavailable JEROMY MEJIA Attending Unavailable NADERER, CRUZITO Referring Unavailable EMELY CHRISTIAN Attending Unavailable MD Cruzito Mcgrath Primary Care Provider MD Luiz Glass Attending Provider [phone] Arminda Valverde Admitting Unavailable Arminda Valverde Attending Unavailable Luiz Glass Attending UnavailCruzito Streeter Primary Care Unavailable Luiz Glass Admitting UnavailSABINA Saavedra Attending Unavailable Medications Current Medications Medication Drug Class(es) Dates Sig (Normalized) Sig (Original) amLODIPine 10 mg oral tablet (19 sources) Dihydropyridine Calcium Channel Veronica Start: 03-18-2024 Amlodipine Active 10 MG PO March 18, 2024 12:00am Start: 05-09-2023 take 1 tablet by sierra th in the morning amLODIPine (NORVASC) 10 mg [...] morning. ascorbic acid 500 mg oral tablet (7 sources) Vitamin C Start: 01-02-2021 take 1 tablet by mouth once daily Ascorbic Acid (Vitamin C) (Vitamin C) 500 mg Tablet Active 500 MG PO Daily January 02, 2021 12:00am Comment on above: Take 500 mg by mouth once daily. aspirin 81 mg delayed release oral tablet (16 sources) Platelet Aggregation Inhibitor, Nonsteroidal Anti-inflammatory Drug Start: 03-18-2024 Aspirin (Adult Low Dose Aspirin) 81 mg tablet,delayed release (DR/EC) Active 81 MG PO Daily March 18, 2024 12:00am Start: 04-09-2023 End: 04-03-2024 aspirin 81 mg chewable table t Take 81 mg by mouth. 0 04/09/2023 04/03/2024 Active Calcium Phos,Dibas-Vitamin D3 (2 sources) Start: 01-02-2021 take 1 tablet by mouth once daily Calcium Phos,Dibas-Vitamin D3 Active 1 TAB PO Daily January 02, 2021 12:00am cholecalciferol 0.01 mg oral capsule (19 sources) [...] Take 2,000 Units by mouth once daily. furosemide 40 mg oral tablet (5 sources) Loop Diuretic furosemide (LASI X) 40 mg tablet Take 40 mg by mouth as needed. 0 Active Comment on above: Take 40 mg by mouth once daily. gabapentin 300 mg oral capsule (17 sources) Anti-epileptic Agent Start: 03-18-2024 Gabapentin Active 300 MG PO March 18, 2024 12:00am Start: 07-22-2023 take 1 capsule by mo ut three times daily gabapentin (NEURONTIN) 300 mg [...] CAPSULE THREE TIMES DAILY 0 06/09/2023 Active insulin glargine 100 unt/ml injectable solution (9 sources) Insulin Analog Start: 01-02-2021 End: 03-18-2024 inject 54 [IU] by subcutaneous injection once [...] 500 mg by mouth daily with breakfast. ydlyqlnt-crwn-RU-calc ium &mins (THERAGRAN-M) 9 mg iron-400 mcg tablet (2 sources) dbvbipis-ggzl-FX -gerry cium &mins (THERAGRAN-M) 9 mg iron-400 mcg tablet Take 1 tablet by mouth in the morning. 0 Active potassium gluconate 2.5 meq extended release oral tablet (2 sources) take 1 tablet by mouth in the morning potassium gluconate 595 mg (99 mg) tablet extended release Take 1 tablet (595 mg total) by mouth in the morning. 0 Active rosuvastatin calcium 20 mg oral tablet (16 sources) HMG-CoA Reductase Inhibitor Start: 3 End: 4 Rosuvastatin Active 20 MG PO March 18, 2024 12:00am ticagrelor 90 mg oral tablet (16 sources) Start: Ticagrelor (Brilinta) 90 mg tablet Active 90 MG PO March 18, 2024 12:00am Start: 07-05-2023 take 1 tablet by sierra th every twelve hours BRILINTA 90 mg tablet [...] Take 100 mg by mouth once daily. Completed/Discontinued Medications Medication Drug Class(es) Dates Sig (Normalized) Sig (Original) carvedilol 6.25 mg oral tablet (7 sources) alpha-Adrenergic Veronica, beta-Adrenergic Veronica Start: 01-02-2021 End: 03-18-2024 take 6.25 mg by mouth twice daily Carvedilol Discontinued 6.25 MG PO Twice daily January 02, 2021 12:00am March 18, 2024 9:41am Comment on above: Take 6.25 mg by mout h twice daily with meals. clopidogrel 75 mg oral tablet (7 sources) P2Y12 Platelet Inhibitor Start: 01-02-2021 End: 03-18-2024 take 75 mg by mouth once daily Clopidogrel Discontinued 75 MG PO Daily January 02, 2021 12:00am March 18, 2024 9:42am Comment on above: Take 75 mg by mouth once daily. glipiZIDE 10 mg oral tablet (7 sources) Sulfonylurea Start: 01-02-2021 End: 03-18-2024 take 10 mg by mouth twice daily Glipizide Discontinued 10 MG PO Twice daily January 02, 2021 12:00am March 18, 2024 9:42am Comment on above: Take 10 mg by mouth twice daily before meals. pravastatin sodium 20 mg oral tablet (9 sources) HMG-CoA Reductase Inhibitor Start: 01-02-2021 End: 01-02-2021 take 10 mg by mouth once daily Pravastatin Discontinued 10 MG PO Daily January 02, 2021 12:00am January 02, 2021 12:20pm Start: 01-02-2021 End: 03-18-2024 take 20 mg by mouth once daily Pravastatin Discontinue d 20 MG PO Daily 90 January 02, 2021 12:00am March 18, 2024 9:40am Comment on above: Take 20 mg by mouth once daily. Zinc (7 sources) Start: 01-02-2021 End: 03-18-2024 take 1 tablet by mouth once daily Zinc Discontinued 1 TAB PO Daily January 02, 2021 12:00am March 18, 2024 9:42am Start: 01-02-2021 take 1 tablet by mouth once da luis Zinc Active 1 TAB PO Daily January [...] infarction] Onset: 04-05-2023 04-05-2023 Chronic Cardiac dysrhythmias (18 sources) Bradycardia, unspecified; Translations: [Other specified cardiac dysrhythmias] Onset: 11-12-2022 11-12-2022 Episodic Chronic kidney disease (4 sources) Chronic kidney disease stage 3; Translations: [Stage 3 chronic kidney disease, unspecified whether stage 3a or 3b CKD (HCC)] Onset: 01-04-2023 Chronic Conduction disorders (6 sources) Sinus node dysfunction; Translations: [Other specified heart block] Onset: 08-27-2023 08-27-2023 Chronic Coronary atherosclerosis and other heart disease (18 sources) Coronary arteriosclerosis; Translations: [Atherosclerotic heart disease of yocha dehe coronary artery without angina pectoris] Onset: 11-12-2022 [...] 10-21-2019 11-12-2022 Chronic Other aftercare (1 source) 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; Translations: [CORRECTION CURRENT USE OF INSULIN] Onset: 06-08-2022 Episodic Other aftercare (1 source) Other 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 (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) drug therapy; Translations: [OTH FACSIMILE MACHINE OPERATOR CURRENT DRUG THERAPY] Onset: 06-08-2022 Episodic Other [...] Test Name Value Interpretation Reference Range Facility Office Visiton 04-12-2024 Follow-up visit [id number] Lencho Morejon 1945 M Date Provider Department Center 04/12/2024 [facility] C[facility] Gabe Hos No family history on file Level of Service:98047 LA OFFICE/OUTPATIENT NEW HIGH MDM 60 MINUTES Normal [facility] US art pvr/post Camille 024 US art pvr/post [facility] Main [address] [address] Ultrasound Report Signed Patient: Ila Morejon MR#: [id number] 201 : 1945 Acct:[id number] Age/Sex: 78 / M ADM Date: 04/07/24 Loc: Room: Type: [facility] Attending Dr: Luiz Glass MD Ordering Provider: Luiz Glass MD Date of Service: 04/07/24 US/US art pvr/post LE: I70.213 - Atherosclerosis of yocha dehe arteries of extremiti... Copies to: Luiz Glass MD LOWER EXTREMITY SEGMENTAL ARTERIAL DOPSCAN (PVR) INDICATION: Claudication PROCEDURE: Right arm blood pressure is 191 , left is 186 . Pressures throughout the right leg are 176 at the high thigh, 191 at the low thigh, 158 at the calf, 244 at the ankle using the posterior tibial artery and 177 at the ankle using the dorsalis pedis artery with ankle-brachial index of 0.93 1.28 . Pressures throughout the left leg are 197 at the high thigh, 163 at the low thigh, 170 at the calf, 154 at the ankle using the posterior tibial artery and 141 at the ankle using the dorsalis pedis artery with ankle-brachial index of 0.74 0.81 . Wave forms by plethysmography are biphasic, bilaterally. 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 THE PATIENT IS MOST LIKELY TO HAVE pedal DISEASE OF THE LEFT LOWER EXTREMITY. Impression dictated by: Luiz Glass MD04/09/2024 11:53 AM Dictation Location: [place] [address] Tech: Lucie Sainz Transcribed By: [facility] 04/09/24 1153 Dictated By: Luiz Glass MD 04/09/24 1151 Signed By: 04/09/24 1153 Normal [facility] CBC AND AUTO DIFFon 03-05-20 ABSOLUTE BASOPHIL 0.2 X10E9/L Normal 0.0-0.2 [facility] Comment on above: Performed By: #### C LEÓN HAYES, 17668-1, 52431-0, 36765-8 #### [facility] ([id number]) [address] [place] [address], [place] [address] Basophils/100 WBC (Bld) 1.0 % Normal [facility] Comment on above: Performed By: #### C BCA, CMP, 97452-1, 38469-6, 06715-9 #### [facility] ([id number]) [address] [place] [address] Erythrocyte distribution width (RBC) [Ratio] 13.6 % Normal 11.5-15.0 [facility] Comment on above: Performed By: #### C BCA, CMP, , 24070-4, 55057-0 #### [facility] ([id number]) [address] [place] [address] 08478 Hematocrit (Bld) [Volume fraction] 30.4 % Low 39-49 [facility] Comment on above: Performed By: #### C BCA, CMP, , 65279-0, 20912-0 #### [facility] ([id number]) [address] [place] [address] 00906 Hemoglobin (Bld) [Mass/Vol] 10.5 g/dL Low 13.0-17.0 [facility] Comment on above: Performed By: #### C BCA, CMP, , 43180-6, 53744-2 #### [facility] ([id number]) [address] [place] [address] 34001 Lymphocytes (Bld) [#/Vol] 8.6 10*3/uL High 1.0-3.5 [facility] Comment on above: Performed By: #### C BCA, CMP, 84405-4, 52616-5, 32811-0 #### [facility] ([id number]) [address] [place] [address] 38807 Lymphocytes/100 WBC (Bld) 47.0 % Normal [facility] Comment on above: Performed By: #### C BCA, CMP, 37840-9, 74812-1, 80607-9 #### [facility] ([id number]) [address] [place] [address] 44709 MCH (RBC) [Entitic mass] 31.2 pg Normal 27-34 [facility] Comment on above: Performed By: #### C BCA, CMP, 94725-1, 15759-8, 15501-6 #### [facility] ([id number]) [address] [place] [address] 70965 MCHC (RBC) [Mass/Vol] 34.7 g/dL Normal 32-36 [facility] Comment on above: Performed By: #### C BCA, CMP, 79027-2, 76743-9, 48486-7 #### [facility] ([id number]) [address] [place] [address] 93547 MCV (RBC) [Entitic vol] 90 fL Normal 80-100 [facility] Comment on above: Performed By: #### Rose Marie HAYES, CMP, , 46765-0, 10159-1 #### [facility] ([id number]) [address] [place] [address] 92303 Monocytes (Bld) [#/Vol] 0.7 10*3/uL Normal 0-0.9 [facility] Comment on above: Performed By: #### C BCA, CMP, 49550-3, 99443-9, 05006-4 #### [facility] ([id number]) [address] [place] [address] 56097 Monocytes/100 WBC (Bld) 4.0 % Normal [facility] Comment on above: Performed By: #### C BCA, CMP, 63004-2, 59058-5, 01691-9 #### [facility] ([id number]) [address] [place] [address] 85977 Neutrophils (Bld) [#/Vol] 8.7 10*3/uL High 1.5-6.6 [facility] Comment on above: Performed By: #### C BCA, CMP, 88891-6, 26150-7, 18359-7 #### [facility] ([id number]) [address] [place] [address] 20815 Platelet mean volume (Bld) [Entitic vol] 8.9 fL Normal 7-12 [facility] Comment on above: Performed By: #### C BCA, CMP, 26104-4, 46049-4, 80318-2 #### [facility] ([id number]) [address] [place] [address] 07113 Platelets (Bld) [#/Vol] 165 10*3/uL Normal 150-450 [facility] Comment on above: Performed By: #### C BCA, CMP, 73364-1, 34138-1, 27579-0 #### [facility] ([id number]) [address] [place] [address] 30664 RBC COUNT 3.38 X10E12/L Low 4.10-5.70 [facility] Comment on above: Performed By: #### C BCA, CMP, 91314-1, 66042-3, 12184-8 #### [facility] ([id number]) [address] [place] [address] 36924 RBC morphology finding Nom (Bld) NORMAL Normal [facility] Comment on above: Performed By: #### C BCA, CMP, 40881-3, 76069-2, 84215-3 #### [facility] ([id number]) [address] [place] [address] 82649 SEG NEUTROPHIL 48.0 % Normal [facility] Comment on above: Performed By: #### C BCA, CMP, 73056-9, 28498-7, 98416-9 #### [facility] ([id number]) [address] [place] [address] 24027 WBC (Bld) [#/Vol] 18.2 10*3/uL High 4.0-11.0 [facility] Comment on above: Performed By: #### C BCA, CMP, 35245-4, 81540-6, 62885-5 #### [facility] ([id number]) [address] [place] [address] 68659 COMPREHENSIVE METABOLIC PANE Woody 03-05-2024 Albumin [Mass/Vol] 3.4 g/dL Normal 3.2-5.3 [facility] Comment on above: Performed By: #### C BCA, CMP, 36149-2, 90398-7, 13904-7 #### [facility] ([id number]) [address] [place] [address] 25678 ALP [Catalytic activity/Vol] 73 U/L Normal 39-130 [facility] Comment on above: Performed By: #### C BCA, CMP, 28588-2, 16398-9, 77442-9 #### [facility] ([id number]) [address] [place] [address] 66186 ALT [Catalytic activity/Vol] 22 U/L Normal 0-40 [facility] Comment on above: Performed By: #### C BCA, CMP, 65912-2, 42523-7, 47068-9 #### [facility] ([id number]) [address] [place] [address] 97618 Anion gap [Moles/Vol] 6 mmol/L Normal 5-15 [facility] Comment on above: Performed By: #### C BCA, CMP, 81163-3, 83858-0, 75485-5 #### [facility] ([id number]) [address] [place] [address] 54694 AST [Catalytic activity/Vol] 25 U/L Normal 0-41 [facility] Comment on above: Performed By: #### C BCA, CMP, 88605-1, 82723-1, 74470-0 #### [facility] ([id number]) [address] [place] [address] 08617 Bilirubin [Mass/Vol] 0.8 mg/dL Normal 0.3-1.2 [facility] Comment on above: Performed By: #### C BCA, CMP, 72216-0, 16107-3, 46793-8 #### [facility] ([id number]) [address] [place] [address] 23157 Calcium [Mass/Vol] 8.6 mg/dL Normal 8.5-10.5 [facility] Comment on above: Performed By: #### C BCA, CMP, 70593-7, 57268-3, 40406-0 #### [facility] ([id number]) [address] [place] [address] 65932 Chloride [Moles/Vol] 106 mmol/L Normal 98-109 [facility] Comment on above: Performed By: #### C BCA, CMP, 07614-4, 06449-6, 71835-6 #### [facility] ([id number]) [address] [place] [address] 50408 CO2 [Moles/Vol] 21 mmol/L Low 22-32 [facility] Comment on above: Performed By: #### C BCA, CMP, 82038-8, 60455-7, 16258-5 #### [facility] ([id number]) [address] [place] [address] 98653 Creatinine [Mass/Vol] 1.83 mg/dL High 0.70-1.20 [facility] Comment on above: Result Comment: METH OD TRACEABLE TO IDMS STANDARD Performed By: #### C BCA, CMP, 23017-2, 83318-4, 29614-4 #### [facility] ([id number]) [address] [place] [address] 17068 GFR/1.73 sq M.predicted among non-blacks MDRD (S/P/Bld) [Vol rate/Area] 38 mL/min/{1.73_m2} Low >59 [facility] Comment on above: Result Comment: Reported eGFR is based on the CKD-EPI 2020 equation that does not use a race coefficient. Performed By: #### C LEÓN HAYES, 21541-8, 21593-5, 35469-1 #### [facility] ([id number]) [address] [place] [address] 20706 Glucose [Mass/Vol] 277 mg/dL High 65-99 [facility] Comment on above: Performed By: #### C LEÓN HAYES, 06555-5, 55660-4, 42707-7 #### [facility] ([id number]) [address] [place] [address] 53917 Potassium [Moles/Vol] 5.0 mmol/L Normal 3.5-5.0 [facility] Comment on above: Performed By: #### C LEÓN HAYES, 89679-6, 59424-5, 76395-9 #### [facility] ([id number]) [address] [place] [address] 22037 Protein [Mass/Vol] 5.9 g/dL Low 6.0-8.0 [facility] Comment on above: Performed By: #### C LEÓN HAYES, 87945-0, 98175-8, 60820-9 #### [facility] ([id number]) [address] [place] [address] 05670 Sodium [Moles/Vol] 133 mmol/L Low 134-146 [facility] Comment on above: Performed By: #### C LEÓN HAYES, 21712-4, 16853-4, 19105-5 #### [facility] ([id number]) [address] [place] [address] 86201 Urea nitrogen [Mass/Vol] 35 mg/dL High 5-27 [facility] Comment on above: Performed By: #### C LEÓN HAYES, 70780-4, 76944-0, 69015-4 #### [facility] ([id number]) [address] [place] [address] 60901 Glucose Glucometer (BldC) [M ass/Vol]on 03-05-2024 Glucose [Mass/Vol] 267 mg/dL High 65-99 [facility] MAGNESIUMon 03-05-2024 Magnesium [Mass/Vol] 2.0 mg/dL Normal 1.8-2.6 [facility] Comment on above: Performed By: #### C BCA, CMP, 90935-3, 02992-1, 40143-6 #### [facility] ([id number]) [address] [place] [address] 11569 Natriuretic peptide B [Mass/ Vol]on 03-05-2024 Natriuretic peptide B (Bld) [Mass/Vol] 440 pg/mL High <100.0 [facility] Comment on above: Performed By: #### C ABIGAIL, CMP, 98413-6, 92472-3, 34087-3 #### [facility] ([id number]) [address] [place] [address] 63604 Troponin I.cardiac High sens itivity method [Mass/Vol]on 03-05-2024 1 HOUR TROP I, HIGH SENSITIVITY 15 ng/L Normal <21 [facility] Comment on above: Performed By: #### 8 9579-7 #### [facility] ([id number]) [address] [place] [address] 15908 TROPONIN I, HIGH SENSITIVITY 15 ng/L Normal <21 [facility] Comment on above: Performed By: #### C BCA, CMP, 34456-0, 33223-9, 78664-5 #### [facility] ([id number]) [address] [place] [address] 19325 URN MACROSCOPIC NURon 2023 BILIRUBIN RALPH Negative Normal NEG [facility] Comment on above: Performed By: #### N UM #### [facility] ([id number]) [address] [place] [address] 41784 BLOOD/HGB RALPH Trace Abnormal NEG [facility] Comment on above: Performed By: #### N UM #### [facility] ([id number]) [address] [place] [address] [place] [address] GLUCOSE RALPH 100 mg/dL Abnormal NEG [facility] Comment on above: Performed By: #### N UM #### [facility] ([id number]) [address] [place] [address] [place] [address] KETONES RALPH Negative Normal NEG [facility] Comment on above: Performed By: #### N UM #### [facility] ([id number]) [address] [place] [address] 51160 LEUKOCYTE ESTERASE RALPH Negative Normal NEG [facility] Comment on above: Performed By: #### N UM #### [facility] ([id number]) [address] [place] [address] 60716 NITRITE RALPH Negative Normal NEG [facility] Comment on above: Performed By: #### N UM #### [facility] ([id number]) [address] [place] [address] 65717 PH RALPH 5.5 Normal 5.0-8.5 [facility] Comment on above: Performed By: #### N UM #### [facility] ([id number]) [address] [place] [address] [place] [address] PROTEIN RALPH >=300 Abnormal NEG [facility] Comment on above: Performed By: #### N UM #### [facility] ([id number]) [address] [place] [address] [place] [address] SPECIFIC GRAVITY RALPH >=1.030 Normal 1.003-1.035 [facility] Comment on above: Performed By: #### N UM #### [facility] ([id number]) [address] [facility], [place] [address] UROBILINOGEN RALPH 0.2 eu/dL Normal <1.1 [facility] Comment on above: Performed By: #### N UM #### [facility] ([id number]) [address] [facility], [place] [address] CBC W Auto Differential pane l (Bld)on 01-16-2024 Basophils (Bld) [#/Vol] 0.17 10*3/uL High <0.11 [facility] Comment on above: Order Comment: Speci men Type: BLOOD SPECIMEN Ordering Facility: [facility] Address: [address] [place] [address] Performed By: #### 5 7021-8 #### [facility] CLIA [id number] [address] [place] [address] LAB CLIA [id number] [address] [place] [address] [place] Basophils/100 WBC (Bld) 1.0 % Normal [facility] Comment on above: Order Comment: Speci men Type: BLOOD SPECIMEN Ordering Facility: [facility] Address: [address] [place] [address] Performed By: #### 5 7021-8 #### [facility] CLIA [id number] [address] [place] [address] LAB CLIA [id number] [address] [place] [address] [place] Differential cell count method Nom (Bld) Manual Normal [facility] Comment on above: Order Comment: Speci men Type: BLOOD SPECIMEN Ordering Facility: [facility] Address: [address] [place] [address] Performed By: #### 5 7021-8 #### [facility] CLIA [id number] [address] [place] [address] LAB CLIA [id number] [address] [place] [address] [place] Eosinophils (Bld) [#/Vol] 0.17 10*3/uL Normal <0.46 [facility] Comment on above: Order Comment: Speci men Type: BLOOD SPECIMEN Ordering Facility: [facility] Address: [address] [place] [address] Performed By: #### 5 7021-8 #### [facility] CLIA [id number] [address] [place] [address] LAB CLIA [id number] [address] [place] [address] [place] Eosinophils/100 WBC (Bld) 1.0 % Normal [facility] Comment on above: Order Comment: Speci men Type: BLOOD SPECIMEN Ordering Facility: [facility] Address: [address] [place] [address] Performed By: #### 5 7021-8 #### [facility] CLIA [id number] [address] [place] [address] LAB CLIA [id number] [address] [place] [address] [place] Erythrocyte distribution width (RBC) [Ratio] 13.4 % Normal 11.5-15.0 [facility] Comment on above: Order Comment: Speci men Type: BLOOD SPECIMEN Ordering Facility: [facility] Address: [address] [place] [address] Performed By: #### 5 7021-8 #### [facility] CLIA [id number] [address] [place] [address] LAB CLIA [id number] [address] [place] [address] [place] Hematocrit (Bld) [Volume fraction] 30.8 % Low 39.0-51.0 [facility] Comment on above: Order Comment: Speci men Type: BLOOD SPECIMEN Ordering Facility: [facility] Address: [address] [place] [address] Performed By: #### 5 7021-8 #### [facility] CLIA [id number] [address] [place] [address] LAB CLIA [id number] [address] [place] [address] [place] Hemoglobin (Bld) [Mass/Vol] 10.6 g/dL Low 13.0-17.0 [facility] Comment on above: Order Comment: Speci men Type: BLOOD SPECIMEN Ordering Facility: [facility] Address: [address] [place] [address] Performed By: #### 5 7021-8 #### [facility] CLIA [id number] [address] [place] [address] LAB CLIA [id number] [address] [place] [address] [place] Lymphocytes (Bld) [#/Vol] 10.02 10*3/uL High 1.00-4.00 [facility] Comment on above: Order Comment: Speci men Type: BLOOD SPECIMEN Ordering Facility: [facility] Address: [address] [place] [address] Performed By: #### 5 7021-8 #### [facility] CLIA [id number] [address] [place] [address] LAB CLIA [id number] [address] [place] [address] [place] Lymphocytes/100 WBC (Bld) 59.0 % Normal [facility] Comment on above: Order Comment: Speci men Type: BLOOD SPECIMEN Ordering Facility: [facility] Address: [address] [place] [address] Performed By: #### 5 7021-8 #### [facility] CLIA [id number] [address] [place] [address] LAB CLIA [id number] [address] [place] [address] [place] MCH (RBC) [Entitic mass] 31.4 pg Normal 26.0-34.0 [facility] Comment on above: Order Comment: Speci men Type: BLOOD SPECIMEN Ordering Facility: [facility] Address: [address] [place] [address] Performed By: #### 5 7021-8 #### [facility] CLIA [id number] [address] [place] [address] LAB CLIA [id number] [address] [place] [address] [place] MCHC (RBC) [Mass/Vol] 34.4 g/dL Normal 30.5-36.0 [facility] Comment on above: Order Comment: Speci men Type: BLOOD SPECIMEN Ordering Facility: [facility] Address: [address] [place] [address] Performed By: #### 5 7021-8 #### [facility] CLIA [id number] [address] [place] [address] LAB CLIA [id number] [address] [place] [address] [place] MCV (RBC) [Entitic vol] 91.1 fL Normal 80.0-100.0 [facility] Comment on above: Order Comment: Speci men Type: BLOOD SPECIMEN Ordering Facility: [facility] Address: [address] [place] [address] Performed By: #### 5 7021-8 #### [facility] CLIA [id number] [address] [place] [address] LAB CLIA [id number] [address] [place] [address] [place] Monocytes (Bld) [#/Vol] 0.51 10*3/uL Normal <0.87 [facility] Comment on above: Order Comment: Speci men Type: BLOOD SPECIMEN Ordering Facility: [facility] Address: [address] [place] [address] Performed By: #### 5 7021-8 #### [facility] CLIA [id number] [address] [place] [address] LAB CLIA [id number] [address] [place] [address] [place] Monocytes/100 WBC (Bld) 3.0 % Normal [facility] Comment on above: Order Comment: Speci men Type: BLOOD SPECIMEN Ordering Facility: [facility] Address: [address] [place] [address] Performed By: #### 5 7021-8 #### [facility] CLIA [id number] [address] [place] [address] LAB CLIA [id number] [address] [place] [address] [place] Neutrophils (Bld) [#/Vol] 6.11 10*3/uL Normal 1.45-7.50 [facility] Comment on above: Order Comment: Speci men Type: BLOOD SPECIMEN Ordering Facility: [facility] Address: [address] [place] [address] Performed By: #### 5 7021-8 #### [facility] CLIA [id number] [address] [place] [address] LAB CLIA [id number] [address] [place] [address] [place] Neutrophils/100 WBC (Bld) 36.0 % Normal [facility] Comment on above: Order Comment: Speci men Type: BLOOD SPECIMEN Ordering Facility: [facility] Address: [address] [place], [place] [address] Performed By: #### 5 7021-8 #### [facility] CLIA [id number] [address] [place] [address] LAB CLIA [id number] [address] [place] [address] [place] Nucleated RBC (Bld) [#/Vol] 10*3/uL Normal <0.01 [facility] Comment on above: Order Comment: Speci men Type: BLOOD SPECIMEN Ordering Facility: [facility] Address: [address] [place] [address] Performed By: #### 5 7021-8 #### [facility] CLIA [id number] [address] [place] [address] LAB CLIA [id number] [address] [place] [address] [place] Nucleated RBC/100 WBC (Bld) [Ratio] 0.0 /100 WBC Normal [facility] Comment on above: Order Comment: Speci men Type: BLOOD SPECIMEN Ordering Facility: [facility] Address: [address] [place] [address] Performed By: #### 5 7021-8 #### [facility] CLIA [id number] [address] [place] [address] LAB CLIA [id number] [address] [place] [address] [place] Ovalocytes LM Ql (Bld) Few Normal [facility] Comment on above: Order Comment: Speci men Type: BLOOD SPECIMEN Ordering Facility: [facility] Address: [address] [place] [address] Performed By: #### 5 7021-8 #### [facility] CLIA [id number] [address] [place] [address] LAB CLIA [id number] [address] [place] [address] [place] Platelet mean volume (Bld) [Entitic vol] 10.2 fL Normal 9.0-12.7 [facility] Comment on above: Order Comment: Speci men Type: BLOOD SPECIMEN Ordering Facility: [facility] Address: [address] [place] [address] Performed By: #### 5 7021-8 #### [facility] CLIA [id number] [address] [place] [address] LAB CLIA [id number] [address] [place] [address] [place] Platelets (Bld) [#/Vol] 172 10*3/uL Normal 150-400 [facility] Comment on above: Order Comment: Speci men Type: BLOOD SPECIMEN Ordering Facility: [facility] Address: [address] [place] [address] Performed By: #### 5 7021-8 #### [facility] CLIA [id number] [address] [place] [address] LAB CLIA [id number] [address] [place] [address] [place] Platelets Estimate (Bld) [#/Vol] Adequate Normal [facility] Comment on above: Order Comment: Speci men Type: BLOOD SPECIMEN Ordering Facility: [facility] Address: [address] [place] [address] Performed By: #### 5 7021-8 #### [facility] CLIA [id number] [address] [place] [address] LAB CLIA [id number] [address] [place] [address] [place] Polychromasia LM Ql (Bld) Slight Normal [facility] Comment on above: Order Comment: Speci men Type: BLOOD SPECIMEN Ordering Facility: [facility] Address: [address] [place] [address] Performed By: #### 5 7021-8 #### [facility] CLIA [id number] [address] [place] [address] LAB CLIA [id number] [address] [place] [address] [place] RBC (Bld) [#/Vol] 3.38 10*6/uL Low 4.20-6.00 [facility] Comment on above: Order Comment: Speci men Type: BLOOD SPECIMEN Ordering Facility: [facility] Address: [address] [place] [address] Performed By: #### 5 7021-8 #### [facility] CLIA [id number] [address] [place] [address] LAB CLIA [id number] [address] [place] [address] [place] RBC FRAGMENTS Few Abnormal None Seen [facility] Comment on above: Order Comment: Speci men Type: BLOOD SPECIMEN Ordering Facility: [facility] Address: [address] [place] [address] Performed By: #### 5 7021-8 #### [facility] CLIA [id number] [address] [place] [address] LAB CLIA [id number] [address] [place] [address] [place] RED CELL MORPH Reviewed: see result s of individual morphologies Normal [facility] Comment on above: Order Comment: Speci men Type: BLOOD SPECIMEN Ordering Facility: [facility] Address: [address] [place] [address] Performed By: #### 5 7021-8 #### [facility] CLIA [id number] [address] [place] [address] LAB CLIA [id number] [address] [place] [address] [place] WBC (Bld) [#/Vol] 16.98 10*3/uL High 3.70-11.00 [facility] Comment on above: Order Comment: Speci men Type: BLOOD SPECIMEN Ordering Facility: [facility] Address: [address] [place] [address] Performed By: #### 5 7021-8 #### [facility] CLIA [id number] [address] [place] [address] LAB CLIA [id number] [address] [place] [address] [place] CNOVSPon 01-16-2024 CNOVSP Visit (SP) Office (HEMASA) ILA MOREJON ([id number]) 1945 M Date Time Provider Department 01/16/24 2:45 PM FARAZ BECKHAM During your visit today, we recorded the following information about you: Temperature Pulse Respiration Blood pressure 97.2 degrees 45/minute 18/minute 132/35 Weight 73.2 kg Faraz Beckham MD 01/16/2024 2:33 PM Signed RTC in 6 months, with labs same day. Faraz Beckham MD 01/16/2024 6:22 PM Signed NAME: BobIla CLINIC NO.: [id number] DATE OF SERVICE: January 16, 2024 (Bhavani) Some elements in this clinic note that are critical to medical decision making have been carefully reviewed and included from a prior clinic note dated: July 16, 2023 (Bhavani) Referring Provider: Cruzito Mcgrath Additional Clinicians involved [...] lesions, wounds (more content not included)... Normal [facility] Comprehensive metabolic 2000 panelon 01-16-2024 Albumin [Mass/Vol] 3.8 g/dL Low 3.9-4.9 [facility] Comment on above: Order Comment: Speci men Type: BLOOD SPECIMENOrdering Facility: [facility] Address: [facility] [place] [address] Performed By: #### 2 4323-8, 2531-0 ####[facility] LABCLIA [id number] [place] [address] ALP [Catalytic activity/Vol] 84 U/L Normal 38-113 [facility] Comment on above: Order Comment: Speci men Type: BLOOD SPECIMENOrdering Facility: [facility] Address: [address] [place] [address] Performed By: #### 2 4323-8, 2531-0 ####[facility] LABCLIA [id number] [place] [address] ALT [Catalytic activity/Vol] 34 U/L Normal 10-54 [facility] Comment on above: Order Comment: Speci men Type: BLOOD SPECIMENOrdering Facility: [facility] Address: [address] [place] [address] Performed By: #### 2 4323-8, 2531-0 ####[facility] LABCLIA [id number] [place] [address] Anion gap [Moles/Vol] 6 mmol/L Low 8-15 [facility] Comment on above: Order Comment: Speci men Type: BLOOD SPECIMENOrdering Facility: [facility] Address: [address] [place] [address] Performed By: #### 2 4323-8, 2531-0 ####[facility] LABCLIA [id number] [place] [address] AST [Catalytic activity/Vol] 26 U/L Normal 14-40 [facility] Comment on above: Order Comment: Speci men Type: BLOOD SPECIMENOrdering Facility: [facility] Address: [address] [place], [place] [address] Performed By: #### 2 4323-8, 2532-0 ####[facility] LABCLIA [id number] [place] [address] Bilirubin [Mass/Vol] 0.4 mg/dL Normal 0.2-1.3 [facility] Comment on above: Order Comment: Speci men Type: BLOOD SPECIMENOrdering Facility: [facility] Address: [address] [place] [address] Performed By: #### 2 4323-8, 2531-0 ####[facility] LABCLIA [id number] [place] [address] Calcium [Mass/Vol] 9.8 mg/dL Normal 8.5-10.2 [facility] Comment on above: Order Comment: Speci men Type: BLOOD SPECIMENOrdering Facility: [facility] Address: [address] [place] [address] Performed By: #### 2 4323-8, 2531-0 ####[facility] LABCLIA [id number] [place] [address] Chloride [Moles/Vol] 107 mmol/L Normal 98-107 [facility] Comment on above: Order Comment: Speci men Type: BLOOD SPECIMENOrdering Facility: [facility] Address: [address] [place] [address] Performed By: #### 2 4323-8, 2531-0 ####[facility] LABIA [id number] [place] [address] CO2 [Moles/Vol] 24 mmol/L Normal 22-30 [facility] Comment on above: Order Comment: Speci men Type: BLOOD SPECIMENOrdering Facility: [facility] Address: [address] [place] [address] Performed By: #### 2 4323-8, 2531-0 ####[facility] LABIA [id number] [place] [address] Creatinine [Mass/Vol] 1.64 mg/dL High 0.73-1.22 [facility] Comment on above: Order Comment: Speci men Type: BLOOD SPECIMENOrdering Facility: [facility] Address: [address] [place] [address] Performed By: #### 2 4323-8, 2531-0 ####[facility] LABCLIA [id number] [place] [address] Creatinine and Glomerular filtration rate.predicted panel (S/P/Bld) 43 mL/min/1.73m??? Low >=60 [facility] Comment on above: Order Comment: Michael feng Type: BLOOD SPECIMENOrdering Facility: [facility] Address: [address] [place] [address] Result Comment: Sivlana mated Glomerular Filtration Rate (eGFR) is calculated [...] actual GFR. Performed By: #### 2 4323-8, 2532-0 ####[facility] LABIA [id number] [place] [address] Glucose [Mass/Vol] 180 mg/dL High 74-99 [facility] Comment on above: Order Comment: Michael feng Type: BLOOD SPECIMENOrdering Facility: [facility] Address: [address] [place] [address] Result Comment: The [place] [employer] (ADA) provides guidance for cutoff [...] Standards of Medical Care in Diabetes 2016, [place] [employer]. Diabetes Care. 2016.39(Suppl 1). Performed By: #### 2 4323-8, 2532-0 ####[facility] LABCLIA [id number] [place] [address] Potassium [Moles/Vol] 5.2 mmol/L High 3.7-5.1 [facility] Comment on above: Order Comment: Speci men Type: BLOOD SPECIMENOrdering Facility: [facility] Address: [address] [place] [address] Performed By: #### 2 4323-8, 2531-0 ####[facility] LABCLIA [id number] [place] [address] Protein [Mass/Vol] 6.3 g/dL Normal 6.3-8.0 [facility] Comment on above: Order Comment: Speci men Type: BLOOD SPECIMENOrdering Facility: [facility] Address: [address] [place] [address] Performed By: #### 2 4323-8, 2531-0 ####[facility] LABIA [id number] [place] [address] Sodium [Moles/Vol] 137 mmol/L Normal 136-144 [facility] Comment on above: Order Comment: Speci men Type: BLOOD SPECIMENOrdering Facility: [facility] Address: [address] [place] [address] Performed By: #### 2 4323-8, 2531-0 ####[facility] LABCLIA [id number] [place] [address] Urea nitrogen [Mass/Vol] 29 mg/dL High 9-24 [facility] Comment on above: Order Comment: Speci men Type: BLOOD SPECIMENOrdering Facility: [facility] Address: [address] [place] [address] Performed By: #### 2 4323-8, 2531-0 ####[facility] LABIA [id number] [place] [address] Ferritin SerPl-ncon 2023 Ferritin [Mass/Vol] 72.6 ng/mL Normal 30.3-565.7 [facility] Comment on above: Order Comment: Speci men Type: BLOOD SPECIMEN Ordering Facility: [facility] Address: [address] [place], [place] [address] Performed By: #### 5 0190-8, 9, 2275-10, 2284-02 #### [facility] CLIA [id number] [address] [place], [place] [address] [place] [facility] Folate [Mass/Vol] 18.7 ng/mL Normal >4.7 [facility] Comment on above: Order Comment: Speci men Type: BLOOD SPECIMEN [facility] Address: [address] [place] [address] Performed By: #### 5 0190-8, 2132-03, 2275-10, 2284-02 #### [facility] CLIA [id number] [address] [place] [address] [place] Iron and Iron binding capaci [facility] 01-16-2024 Iron [Mass/Vol] 185 ug/dL Normal 41-186 [facility] Comment on above: Order Comment: Speci men Type: BLOOD SPECIMEN [facility] Address: [address] [place] [address] Performed By: #### 5 0190-8, 2132-03, 2275-10, 2284-02 #### [facility] CLIA [id number] [address] [place] [address] [place] Iron binding capacity [Mass/Vol] 363 ug/dL Normal 232-386 [facility] Comment on above: Order Comment: Speci men Type: BLOOD SPECIMEN [facility] Address: [address] [place] [address] Performed By: #### 5 0190-8, 2132-03, 2275-10, 2284-02 #### [facility] CLIA [id number] [address] [place] [address] [place] Iron/TIBC [Molar ratio] 51.0 % Normal 15.0-57.0 [facility] Comment on above: Order Comment: Speci men Type: BLOOD SPECIMEN [facility] Address: [address] [place] [address] Performed By: #### 5 0190-8, 2-9, 6-4, 2284-8 #### [facility] CLIA [id number] [address] [place] [address] OF [facility] LDH SerPl-cCncon 01-16-2024 LDH [Catalytic activity/Vol] 182 U/L Normal 135-225 [facility] Comment on above: Order Comment: Speci men Type: BLOOD SPECIMENOrdering Facility: [facility] Address: [address] [place] [address] Performed By: #### 2 4323-8, 2532-0 ####[facility] LABCLIA [id number] [place] [id number] Vit B12 SerPl-mCncon 024 Cobalamin (Vitamin B12) [Mass/Vol] 1200 pg/mL Normal 232-1245 [facility] Comment on above: Order Comment: Speci men Type: BLOOD SPECIMEN [facility] Address: [address] [place] [address] Performed By: #### 5 0190-8, 2131-9, 6-4, 8 #### [facility] CLIA [id number] [address] [place] [address] [place] Woody 12-27-2023 L Specimen: [id number] Received: 12/29/23 Status: SOUT Rekatie Num: [id number] Spec Type: Impression Subm Dr: Arminda Valverde DO Tissues: PATHPER Procedures: PATHREVIEW Age/ Patient Sex Location Account Attending Physician Ila Morejon 78/M LABELL [id number] Arminda Valverde DO SPEC NUM: [id number] RECD: 12/29/23 STATUS: SOUT REKatie NUM: [id number] JERRY: 12/27/[address]: Arminda Valverde DO ENTERED: 12/29/[address] [facility] DR: Gabe,Lab SPEC TYPE: Impression DEPT: JAY Garay ENTERED BY: [id number] RECV BY: [id number] ORDERED: PATHREVIEW ORDERED: PATHREVIEW Pathologist Review Abnormal [...] [id number] Received: 12/29/23 Status: [place] Num: [id number] Spec Type: Impression Subm Dr: Arminda Valverde DO Tissues: PATHPER Procedures: PATHREVIEW Patient: Ila Morejon U [id number] (Continued) Specimen: [id number] Received: 12/29/23 (Continued) Pathologist Review (Continued) Signed (signature on file) Nicole Askew MD 12/29/23 1731 Specimen: [id number] Received: 12/29/23 Status: [place] Num: [id number] Spec Type: Impression Subm Dr: Arminda Valverde DO Tissues: PATHPER Procedures: PATHREVIEW Patient: Ila Morejon U [id number] (Continued) Specimen: [id number] Received: 12/29/23 (Continued) Pathologist Review (Continued) part of the myelosuppression, including hairy cell leukemia, otherwise is not very apparent in this CBC except mild chronic anemia -If the CBC abnormality continues to persist or progress, further hematology consultation, including flow cytometric assessment of the peripheral blood, may also be suggested as appropriate CPT: 27404 CBC No results available. Specimen: [id number] Received: 12/29/23 Status: [place]ONA [place] Num: [id number] Spec Type: Impression Subm Dr: Arminda Valverde DO Tissues: PATHPER Procedures: PATHREVIEW Patient: BobIla Julianna [id number] (Continued) Signed (signature on file) Nicole Askew MD 12/29/23 1731 Normal [facility] HGB A1C (GLYCO-HGB)on 2023 Glucose [Mass/Vol] 151 mg/dL Normal [facility] HbA1c (Bld) [Mass fraction] 6.9 % High 4.4-5.6 [facility] Comment on above: Result Comment: NOTE [...] Basophils (Bld) [#/Vol] 0.14 10*3/uL High <0.11 [facility] Comment on above: Order Comment: Michael feng Type: BLOOD SPECIMEN [facility] Address: [address] [place] [address] Performed By: #### 5 7021-8 #### [facility] CLIA [id number] [address] [place] [id number] [place] [address] LAB CLIA [id number] [facility] [address]K [address] [address] [place] Basophils/100 WBC (Bld) 1.0 % Normal [facility] Comment on above: Order Comment: Michael feng Type: BLOOD SPECIMEN Ordering Facility: [facility] Address: [address] [place] [address] Performed By: #### 5 7021-8 #### [facility] [facility] CLIA [id number] [address] [place] [address] LAB CLIA [id number] [address] [place] [address] [place] Differential cell count method Nom (Bld) Manual Normal [facility] Comment on above: Order Comment: Speci men Type: BLOOD SPECIMEN Ordering Facility: [facility] Address: [address] [place] [address] Performed By: #### 5 7021-8 #### [facility] CLIA [id number] [address] [place] [address] LAB CLIA [id number] [address] [place] [address] [place] Eosinophils (Bld) [#/Vol] 0.14 10*3/uL Normal <0.46 [facility] Comment on above: Order Comment: Speci men Type: BLOOD SPECIMEN Ordering Facility: [facility] Address: [address] [place] [address] Performed By: #### 5 7021-8 #### [facility] CLIA [id number] [address] [place] [address] LAB CLIA [id number] [address] [place] [address] [place] Eosinophils/100 WBC (Bld) 1.0 % Normal [facility] Comment on above: Order Comment: Speci men Type: BLOOD SPECIMEN Ordering Facility: [facility] Address: [address] [place] [address] Performed By: #### 5 7021-8 #### [facility] CLIA [id number] [address] [place] [address] LAB CLIA [id number] [address] [place] [address] [place] Erythrocyte distribution width (RBC) [Ratio] 13.2 % Normal 11.5-15.0 [facility] Comment on above: Order Comment: Speci men Type: BLOOD SPECIMEN Ordering Facility: [facility] Address: [address] [place] [address] Performed By: #### 5 7021-8 #### [facility] CLIA [id number] [address] [place] [address] LAB CLIA [id number] [address] [place] [address] [place] Hematocrit (Bld) [Volume fraction] 32.0 % Low 39.0-51.0 [facility] Comment on above: Order Comment: Speci men Type: BLOOD SPECIMEN Ordering Facility: [facility] Address: [address] [place] [address] Performed By: #### 5 7021-8 #### [facility] CLIA [id number] [address] [place] [address] LAB CLIA [id number] [address] [place] [address] [place] Hemoglobin (Bld) [Mass/Vol] 10.8 g/dL Low 13.0-17.0 [facility] Comment on above: Order Comment: Speci men Type: BLOOD SPECIMEN Ordering Facility: [facility] Address: [address] [place] [address] Performed By: #### 5 7021-8 #### [facility] CLIA [id number] [address] [place] [address] LAB CLIA [id number] [address] [place] [address] [place] Lymphocytes (Bld) [#/Vol] 7.95 10*3/uL High 1.00-4.00 [facility] Comment on above: Order Comment: Speci men Type: BLOOD SPECIMEN Ordering Facility: [facility] Address: [address] [place] [address] Performed By: #### 5 7021-8 #### [facility] CLIA [id number] [address] [place] [address] LAB CLIA [id number] [address] [place] [address] [place] Lymphocytes/100 WBC (Bld) 57.0 % Normal [facility] Comment on above: Order Comment: Speci men Type: BLOOD SPECIMEN Ordering Facility: [facility] Address: [address] [place] [address] Performed By: #### 5 7021-8 #### [facility] CLIA [id number] [address] [place] [address] LAB CLIA [id number] [address] [place] [address] [place] MCH (RBC) [Entitic mass] 30.9 pg Normal 26.0-34.0 [facility] Comment on above: Order Comment: Speci men Type: BLOOD SPECIMEN Ordering Facility: [facility] Address: [address] [place] [address] Performed By: #### 5 7021-8 #### [facility] CLIA [id number] [address] [place] [address] LAB CLIA [id number] [address] [place] [address] [place] MCHC (RBC) [Mass/Vol] 33.8 g/dL Normal 30.5-36.0 [facility] Comment on above: Order Comment: Speci men Type: BLOOD SPECIMEN Ordering Facility: [facility] Address: [address] [place] [address] Performed By: #### 5 7021-8 #### [facility] CLIA [id number] [address] [place] [address] LAB CLIA [id number] [address] [place] [address] [place] MCV (RBC) [Entitic vol] 91.7 fL Normal 80.0-100.0 [facility] Comment on above: Order Comment: Speci men Type: BLOOD SPECIMEN Ordering Facility: [facility] Address: [address] [place] [address] Performed By: #### 5 7021-8 #### [facility] CLIA [id number] [address] [place] [address] LAB CLIA [id number] [address] [place] [address] [place] Monocytes (Bld) [#/Vol] 0.84 10*3/uL Normal <0.87 [facility] Comment on above: Order Comment: Speci men Type: BLOOD SPECIMEN Ordering Facility: [facility] Address: [address] [place] [address] Performed By: #### 5 7021-8 #### [facility] CLIA [id number] [address] [place] [address] LAB CLIA [id number] [address] [place] [address] [place] Monocytes/100 WBC (Bld) 6.0 % Normal [facility] Comment on above: Order Comment: Speci men Type: BLOOD SPECIMEN Ordering Facility: [facility] Address: [address] [place] [address] Performed By: #### 5 7021-8 #### [facility] CLIA [id number] [address] [place] [address] LAB CLIA [id number] [address] [place] [address] [place] Neutrophils (Bld) [#/Vol] 4.88 10*3/uL Normal 1.45-7.50 [facility] Comment on above: Order Comment: Speci men Type: BLOOD SPECIMEN Ordering Facility: [facility] Address: [address] [place] [address] Performed By: #### 5 7021-8 #### [facility] CLIA [id number] [address] [place] [address] LAB CLIA [id number] [facility] [place] [id number] [place] Neutrophils/100 WBC (Bld) 35.0 % Normal [facility] Comment on above: Order Comment: Speci men Type: BLOOD SPECIMEN Ordering Facility: [facility] Address: [address] [place] [address] Performed By: #### 5 7021-8 #### [facility] CLIA [id number] [address] [place] [address] LAB CLIA [id number] [address] [place] [address] [place] Nucleated RBC (Bld) [#/Vol] 10*3/uL Normal <0.01 [facility] Comment on above: Order Comment: Speci men Type: BLOOD SPECIMEN Ordering Facility: [facility] Address: [address] [place] [address] Performed By: #### 5 7021-8 #### [facility] CLIA [id number] [address] [place] [address] LAB CLIA [id number] [address] [place] [address] [place] Nucleated RBC/100 WBC (Bld) [Ratio] 0.0 /100 WBC Normal [facility] Comment on above: Order Comment: Speci men Type: BLOOD SPECIMEN Ordering Facility: [facility] Address: [address] [place] [address] Performed By: #### 5 7021-8 #### [facility] CLIA [id number] [address] [place] [address] LAB CLIA [id number] [address] [place] [address] [place] Ovalocytes LM Ql (Bld) Few Normal [facility] Comment on above: Order Comment: Speci men Type: BLOOD SPECIMEN Ordering Facility: [facility] Address: [address] [place] [address] Performed By: #### 5 7021-8 #### [facility] CLIA [id number] [address] [place] [address] LAB CLIA [id number] [address] [place] [address] [place] Platelet mean volume (Bld) [Entitic vol] 10.7 fL Normal 9.0-12.7 [facility] Comment on above: Order Comment: Speci men Type: BLOOD SPECIMEN Ordering Facility: [facility] Address: [address] [place] [address] Performed By: #### 5 7021-8 #### [facility] CLIA [id number] [address] [place] [address] LAB CLIA [id number] [address] [place] [address] [place] Platelets (Bld) [#/Vol] 152 10*3/uL Normal 150-400 [facility] Comment on above: Order Comment: Speci men Type: BLOOD SPECIMEN Ordering Facility: [facility] Address: [address] [place] [address] Performed By: #### 5 7021-8 #### [facility] CLIA [id number] [address] [place] [address] LAB CLIA [id number] [address] [place] [address] [place] Platelets Estimate (Bld) [#/Vol] Adequate Normal [facility] Comment on above: Order Comment: Speci men Type: BLOOD SPECIMEN Ordering Facility: [facility] Address: [address] [place] [address] Performed By: #### 5 7021-8 #### [facility] CLIA [id number] [address] [place] [address] LAB CLIA [id number] [address] [place] [address] [place] RBC (Bld) [#/Vol] 3.49 10*6/uL Low 4.20-6.00 [facility] Comment on above: Order Comment: Speci men Type: BLOOD SPECIMEN Ordering Facility: [facility] Address: [address] [place] [address] Performed By: #### 5 7021-8 #### [facility] CLIA [id number] [address] [place] [address] LAB CLIA [id number] [address] [place] [address] [place] RED CELL MORPH Reviewed: see result s of individual morphologies Normal [facility] Comment on above: Order Comment: Speci men Type: BLOOD SPECIMEN Ordering Facility: [facility] Address: [address] [place] [address] Performed By: #### 5 7021-8 #### [facility] CLIA [id number] [address] [place] [address] LAB CLIA [id number] [address] [place] [address] [place] WBC (Bld) [#/Vol] 13.94 10*3/uL High 3.70-11.00 [facility] Comment on above: Order Comment: Speci men Type: BLOOD SPECIMEN Ordering Facility: [facility] Address: [address] [place] [address] Performed By: #### 5 7021-8 #### [facility] CLIA [id number] [address] [place] [address] LAB CLIA [id number] [address] [place] [address] [place] CNOVSPon 07-16-2023 CNOVSP Visit (SP) Office (HEMASA) ILA MOREJON ([id number]) 1945 M Date Time Provider Department 07/16/23 2:30 PM FARAZ BECKHAM During your visit today, we recorded the following information about you: Temperature Pulse Respiration Blood pressure 97.7 degrees 42/minute 16/minute 169/38 Weight Height 77.3 kg 1.715 m Faraz Beckham MD 07/16/2023 7:35 PM Signed NAME: Ila Morejon CLINIC NO.: [id number] DATE OF SERVICE: July 16, 2023 (Bhavani) Some elements in this clinic note that are critical to medical decision making have been carefully reviewed and included from a prior clinic note dated: December 27, 2022 (Bhavani) Referring Provider: Cruzito Mcgrath Additional Clinicians involved [...] Reverse Chronological Order 04/04/2023 - Admitted to [facility] with NSTEMI Underwent placement of [...] gabapentin (NEUR (more content not included)... Normal [facility] Comprehensive metabolic 2000 panelon 07-16-2023 Albumin [Mass/Vol] 3.8 g/dL Low 3.9-4.9 [facility] Comment on above: Order Comment: Speci men Type: BLOOD SPECIMENOrdering Facility: [facility] Address: [address] [place] [address] Performed By: #### 3 084-1, 2532-0, 29353-0 ####[facility] LABCLIA [id number] [place] [address] ALP [Catalytic activity/Vol] 88 U/L Normal 38-113 [facility] Comment on above: Order Comment: Speci men Type: BLOOD SPECIMENOrdering Facility: [facility] Address: [address] [place] [address] Performed By: #### 3 084-1, 0, ####[facility] LABCLIA [id number] [place] [address] ALT [Catalytic activity/Vol] 23 U/L Normal 10-54 [facility] Comment on above: Order Comment: Speci men Type: BLOOD SPECIMENOrdering Facility: [facility] Address: [address] [place] [address] Performed By: #### 3 084-1, 0, ####[facility] LABCLIA [id number] [place] [address] Anion gap [Moles/Vol] 7 mmol/L Low 9-18 [facility] Comment on above: Order Comment: Speci men Type: BLOOD SPECIMENOrdering Facility: [facility] Address: [address] [place] [address] Performed By: #### 3 084-1, 0, ####[facility] LABCLIA [id number] [place] [address] AST [Catalytic activity/Vol] 23 U/L Normal 14-40 [facility] Comment on above: Order Comment: Speci men Type: BLOOD SPECIMENOrdering Facility: [facility] Address: [address] [place] [address] Performed By: #### 3 084-1, 0, ####[facility] LABCLIA [id number] [place] [address] Bilirubin [Mass/Vol] 0.3 mg/dL Normal 0.2-1.3 [facility] Comment on above: Order Comment: Speci men Type: BLOOD SPECIMENOrdering Facility: [facility] Address: [address] [place] [address] Performed By: #### 3 084-1, 0, ####[facility] LABCLIA [id number] [place] [address] Calcium [Mass/Vol] 9.3 mg/dL Normal 8.5-10.2 [facility] Comment on above: Order Comment: Speci men Type: BLOOD SPECIMENOrdering Facility: [facility] Address: [address] [place] [address] Performed By: #### 3 084-1, 2531-0, ####[facility] LABIA [id number] [place] [address] Chloride [Moles/Vol] 107 mmol/L High 97-105 [facility] Comment on above: Order Comment: Speci men Type: BLOOD SPECIMENOrdering Facility: [facility] Address: [address] [place] [address] Performed By: #### 3 084-1, 0, ####[facility] LABIA [id number] [place] [address] CO2 [Moles/Vol] 23 mmol/L Normal 22-30 [facility] Comment on above: Order Comment: Speci men Type: BLOOD SPECIMENOrdering Facility: [facility] Address: [address] [place] [address] Performed By: #### 3 084-1, 2531-0, ####[facility] LABIA [id number] [place] [address] Creatinine [Mass/Vol] 1.59 mg/dL High 0.73-1.22 [facility] Comment on above: Order Comment: Speci men Type: BLOOD SPECIMENOrdering Facility: [facility] Address: [address] [place] [address] Performed By: #### 3 084-1, 2531-0, ####[facility] LABCLIA [id number] [place] [address] Creatinine and Glomerular filtration rate.predicted panel (S/P/Bld) 45 mL/min/1.73m??? Low >=60 [facility] Comment on above: Order Comment: Michael feng Type: BLOOD SPECIMENOrdering Facility: [facility] Address: [address] [place] [address] Result Comment: Silvana mated Glomerular Filtration Rate [...] GFR. Performed By: #### 3 084-1, 2531-0, ####[facility] LABCLIA [id number] [place] [address] Glucose [Mass/Vol] 200 mg/dL High 74-99 [facility] Comment on above: Order Comment: Michael feng Type: BLOOD SPECIMENOrdering Facility: [facility] Address: [address] [place] [address] Result Comment: The [place] [employer] (ADA) provides guidance for cutoff [...] Standards of Medical Care in Diabetes 2016, [place] [employer]. Diabetes Care. 2016.39(Suppl 1). Performed By: #### 3 084-1, 253-0, ####[facility] LABCLIA [id number] [place] [address] Potassium [Moles/Vol] 5.3 mmol/L High 3.7-5.1 [facility] Comment on above: Order Comment: Speci men Type: BLOOD SPECIMENOrdering Facility: [facility] Address: [address] [place] [address] Performed By: #### 3 084-1, 2531-0, ####[facility] LABIA [id number] [place] [address] Protein [Mass/Vol] 6.1 g/dL Low 6.3-8.0 [facility] Comment on above: Order Comment: Speci men Type: BLOOD SPECIMENOrdering Facility: [facility] Address: [address] [place] [address] Performed By: #### 3 084-1, 0, ####[facility] LABIA [id number] [place] [address] Sodium [Moles/Vol] 137 mmol/L Normal 136-144 [facility] Comment on above: Order Comment: Speci men Type: BLOOD SPECIMENOrdering Facility: [facility] Address: [address] [place] [address] Performed By: #### 3 084-1, 2531-0, ####[facility] LABIA [id number] [place] [address] Urea nitrogen [Mass/Vol] 36 mg/dL High 9-24 [facility] Comment on above: Order Comment: Speci men Type: BLOOD SPECIMENOrdering Facility: [facility] Address: [address] [place] [address] Performed By: #### 3 084-1, 2531-0, ####[facility] LABIA [id number] [place] [address] LDH SerPl-[facility] 07-16-2023 LDH [Catalytic activity/Vol] 206 U/L Normal 135-225 [facility] Comment on above: Order Comment: Speci men Type: BLOOD SPECIMENOrdering Facility: [facility] Address: [address] [place] [address] Performed By: #### 3 084-1, 2532-0, 03597-5 ####[facility] LABCLIA [id number] [place] [address] Urate SerPl-mCncon 3 Urate [Mass/Vol] 5.5 mg/dL Normal 4.0-8.1 [facility] Comment on above: Order Comment: Speci men Type: BLOOD SPECIMENOrdering Facility: [facility] Address: [address] [place] [address] Performed By: #### 3 084-1, 2532-0, 00643-1 ####[facility] LABCLIA [id number] [place] [address] B2 MICROGLOBULIN [facility] 022 [place]-2-Jfgdqoicsdjfp [Mass/Vol] 4.5 ug/mL High <3.1 mg/L [facility] CBC W Auto Differential pane l (Bld)on 06-22-2022 Basophils (Bld) [#/Vol] 0.00 10*3/uL <0.11 k/uL [facility] Basophils/100 WBC (Bld) 0.0 % [facility] Differential cell count method Nom (Bld) Manual [facility] Eosinophils (Bld) [#/Vol] 0.33 10*3/uL <0.46 k/uL [facility] Eosinophils/100 WBC (Bld) 2.0 % [facility] Erythrocyte distribution width (RBC) [Ratio] 12.5 % 11.5 - 15.0 % [facility] Hematocrit (Bld) [Volume fraction] 43.5 % 39.0 - 51.0 % [facility] Hemoglobin (Bld) [Mass/Vol] 15.1 g/dL 13.0 - 17.0 g/dL [facility] Lymphocytes (Bld) [#/Vol] 9.25 10*3/uL High 1.00 - 4.00 k/uL [facility] Lymphocytes/100 WBC (Bld) 56.0 % [facility] MCH (RBC) [Entitic mass] 30.8 pg 26.0 - 34.0 pg [facility] MCHC (RBC) [Mass/Vol] 34.7 g/dL 30.5 - 36.0 g/dL [facility] MCV (RBC) [Entitic vol] 88.8 fL 80.0 - 100.0 fL [facility] Monocytes (Bld) [#/Vol] 1.16 10*3/uL High <0.87 k/uL [facility] Monocytes/100 WBC (Bld) 7.0 % [facility] Neutrophils (Bld) [#/Vol] 5.78 10*3/uL 1.45 - 7.50 k/uL [facility] Neutrophils/100 WBC (Bld) 35.0 % [facility] Nucleated RBC (Bld) [#/Vol] <0.01 k/uL [facility] Nucleated RBC/100 WBC (Bld) [Ratio] 0.0 /100 WBC [facility] Ovalocytes LM Ql (Bld) Few [facility] Platelet mean volume (Bld) [Entitic vol] 10.4 fL 9.0 - 12.7 fL [facility] Platelets (Bld) [#/Vol] 204 10*3/uL 150 - 400 k/uL [facility] Platelets Estimate (Bld) [#/Vol] Adequate [facility] RBC (Bld) [#/Vol] 4.90 10*6/uL 4.20 - 6.0 0 m/uL [facility] Red Cell Morph Reviewed: see result s of individual morphologies [facility] WBC (Bld) [#/Vol] 16.52 10*3/uL High 3.70 - 11 .00 k/uL [facility] Direct antiglobulin test.avelina y specific reagent Ql (RBC)on 06-22-2022 DAGT, Polyspecific AHG Negative [facility] Comprehensive metabolic 2000 panelon 06-21-2022 Albumin [Mass/Vol] 3.7 g/dL Low 3.9 - 4.9 g/dL [facility] ALP [Catalytic activity/Vol] 117 U/L High 38 - 113 U/L [facility] ALT [Catalytic activity/Vol] 9 U/L Low 10 - 54 U/L [facility] Anion gap [Moles/Vol] 3 mmol/L Low 9 - 18 mmol/L [facility] AST [Catalytic activity/Vol] 13 U/L Low 14 - 40 U/L [facility] Bilirubin [Mass/Vol] 0.4 mg/dL 0.2 - 1 .3 mg/dL [facility] Calcium [Mass/Vol] 9.4 mg/dL 8.5 - 10. 2 mg/dL [facility] Chloride [Moles/Vol] 108 mmol/L High 97 - 10 5 mmol/L [facility] CO2 [Moles/Vol] 27 mmol/L 22 - 30 mmol/L [facility] Creatinine [Mass/Vol] 1.19 mg/dL 0.73 - 1.22 mg/dL [facility] Estimated Glomerular Filtration Rate 64 mL/min/1.73m >=60 mL/min/1.73m [facility] Glucose [Mass/Vol] 180 mg/dL High 74 - 99 mg/dL [facility] Potassium [Moles/Vol] 5.4 mmol/L High 3.7 - 5.1 mmol/L [facility] Protein [Mass/Vol] 6.2 g/dL Low 6.3 - 8.0 g/dL [facility] Sodium [Moles/Vol] 138 mmol/L 136 - 144 mmol/L [facility] Urea nitrogen [Mass/Vol] 31 mg/dL High 9 - 24 mg/dL [facility] LD LACTATE DEHYDROon 022 LDH [Catalytic activity/Vol] 179 U/L 135 - 225 U/L [facility] URIC ACID BLOODon 06-21-2022 Urate [Mass/Vol] 4.5 mg/dL 4.0 - 8.1 mg/dL [facility] CBC AUTO DIFFon 06-06-2022 BASO # 0.1 103/ul Normal 0.0-0.1 [facility] Comment on above: Performed By: #### C BC #### [facility] [address] [place] [address] [address] Lara Askew Basophils/100 WBC (Bld) 0.5 % Normal 0.2-2.0 [facility] Comment on above: Performed By: #### C BC #### [facility] [address] [place] [address] [address] Lara Askew EO # 0.3 103/ul Normal 0.0-0.7 [facility] Comment on above: Performed By: #### C BC #### [facility] [address] [place] [address] Dr. Lara Askew Eosinophils/100 WBC (Bld) 1.6 % Normal 0.9-7.0 [facility] Comment on above: Performed By: #### C BC #### [facility] [address] [place] [address] Dr. Lara Askew Erythrocyte distribution width (RBC) [Ratio] 12.5 % Normal 11.0-15.0 [facility] Comment on above: Performed By: #### C BC #### [facility] [address] [place] [address] Dr. Lara Askew Hematocrit (Bld) [Volume fraction] 39.7 % Critically low 42.0-54.0 [facility] Comment on above: Performed By: #### C BC #### [facility] [address] [place] [address] Dr. Lara Askew Hemoglobin (Bld) [Mass/Vol] 14.0 g/dL Normal 14.0-18.0 [facility] Comment on above: Performed By: #### C BC #### [facility] [address] [place] [address] Dr. Lara Askew IG # 0.07 10e3/ul Critically high 0.00-0.03 [facility] Comment on above: Performed By: #### C BC #### [facility] [address] [place] [address] Dr. Lara Askew IG % 0.4 % Normal 0.0-0.5 [facility] Comment on above: Performed By: #### C BC #### [facility] [address] [place] [address] Dr. Lara Askew LYMPH # 10.1 103/ul Critically high 1.2-3.8 [facility] Comment on above: Performed By: #### C BC #### [facility] [address] [place] [address] Dr. Lara Askew Lymphocytes/100 WBC (Bld) 53.6 % Normal 20.5-60.0 [facility] Comment on above: Performed By: #### C BC #### [facility] [address] [place] [address] Dr. Lara Askew MANUAL DIFF REQ NO Normal [facility] Comment on above: Performed By: #### C BC #### [facility] [address] [place] [address] Dr. Lara Askew MCH (RBC) [Entitic mass] 31.5 pg Normal 25.9-34.0 [facility] Comment on above: Performed By: #### C BC #### [facility] [address] [place] [address] Dr. Lara Askew MCHC (RBC) [Mass/Vol] 35.3 g/dL Critically high 29.9-35.2 [facility] Comment on above: Performed By: #### C BC #### [facility] [address] [place] [address] Dr. Lara Askew MCV (RBC) [Entitic vol] 89.2 fL Normal 80.0-94.0 [facility] Comment on above: Performed By: #### C BC #### [facility] [address] [place] [address] Dr. Lara Askew MONO # 0.7 103/ul Normal 0.3-0.8 [facility] Comment on above: Performed By: #### C BC #### [facility] [address] [place] [address] Dr. Lara Askew Monocytes/100 WBC (Bld) 3.7 % Normal 1.7-12.0 [facility] Comment on above: Performed By: #### C BC #### [facility] [address] [place] [address] Dr. Lara Askew NEUT # 7.6 103/ul Critically high 1.4-6.5 [facility] Comment on above: Performed By: #### C BC #### [facility] [address] [place] [address] Dr. Lara Askew Neutrophils/100 WBC (Bld) 40.2 % Critically low 43.0-75.0 [facility] Comment on above: Performed By: #### C BC #### [facility] [address] [address] [address] Lara Askew Platelet mean volume (Bld) [Entitic vol] 11.0 fL Normal 9.5-13.5 [facility] Comment on above: Performed By: #### C BC #### [facility] [address] [address] [address] Lara Askew PLT 185 103/ul Normal 150-450 [facility] Comment on above: Performed By: #### C BC #### [facility] [address] [address] [address] Lara Askew RBC 4.45 106/ul Critically low 4.70-6.10 [facility] Comment on above: Performed By: #### C BC #### [facility] [address] [address] [address] Lara Askew WBC 18.8 103/ul Critically high 4.0-11.0 [facility] Comment on above: Performed By: #### C BC #### [facility] [address] [address] [address] Lara Askew GLYCOHEMOGLOBIN A1Con 2021 ADA RECOMMENDATION SEE BELOW Normal [facility] Comment on above: Result Comment: ADA RECOMMENDED LIMIT 4.0 - 6.0 ADA THERAPEUTIC TARGET < 7.0 ACTION SUGGESTED > 7.0 Performed By: #### A 1C #### [facility] [address] [address] [address] Lara Askew Glucose [Mass/Vol] 148 mg/dL Normal [facility] Comment on above: Performed By: #### A 1C #### [facility] [address] [address] [address] Lara Askew HbA1c (Bld) [Mass fraction] 6.8 % Critically high 4.5-6.2 [facility] Comment on above: Performed By: #### A 1C #### [facility] [address] [address] [address] Lara Askew LIPID PROFILEon 06-06-2022 CHOL-HDL RATIO NORM SEE BELOW Normal [facility] Comment on above: Result Comment: 3.3 - 4.4 LOW RISK 4.4 - 7.1 AVERAGE RISK 7.1 - 11.0 MODERATE RISK >11.0 HIGH RISK Performed By: #### L IVER, LIPID, BMP #### [facility] [address] [address] [address] Lara Askew Cholesterol [Mass/Vol] 113 mg/dL Normal <=200 [facility] Comment on above: Performed By: #### L IVER, LIPID, BMP #### [facility] [address] [address] [address] Lara Askew Cholesterol in HDL [Mass/Vol] 51 mg/dL Normal 40-60 [facility] Comment on above: Performed By: #### L IVER, LIPID, BMP #### [facility] [address] [place] [address] Dr. Lara Askew Cholesterol in LDL [Mass/Vol] 47.6 mg/dL Normal [facility] Comment on above: Performed By: #### L IVER, LIPID, BMP #### [facility] [address] [address] [address] Lara Askew Cholesterol.total/Ch olesterol in HDL [Mass ratio] 2.2 {ratio} Normal [facility] Comment on above: Performed By: #### L IVER, LIPID, BMP #### [facility] [address] [address] [address] Lara Askew HDL NORMAL > or = 60 mg/dl - LO W CARDIOVASCULAR RISK <40 mg/dl - HIGH CARDIOVASCULAR RISK Normal [facility] Comment on above: Performed By: #### L IVER, LIPID, BMP #### [facility] [address] [address] [address] Lara Askew LDL CALC NORMAL SEE BELOW Normal [facility] Comment on above: Result Comment: <100 mg/dl OPTIMAL 100 - 129 mg/dl NEAR OR ABOVE OPTIMAL 130 - 159 mg/dl BORDERLINE HIGH 160 - 189 mg/dl HIGH >190 mg/dl VERY HIGH Performed By: #### L IVER, LIPID, BMP #### [facility] [address] [place] [address] Dr. Lara Askew Triglyceride [Mass/Vol] 72 mg/dL Normal <=150 [facility] Comment on above: Performed By: #### L IVER, LIPID, BMP #### [facility] [address] [address] [address] Lara Askew VLDL CALC 14.4 mg/dL Normal [facility] Comment on above: Performed By: #### L IVER, LIPID, BMP #### [facility] [address] [place] [address] Dr. Lara Askew LIVER PROFILEon 06-06-2022 Albumin [Mass/Vol] 3.0 g/dL Critically low 3.4-5.0 [facility] Comment on above: Performed By: #### L IVER, LIPID, BMP #### [facility] [address] [place] [address] Dr. Lara Askew Albumin/Globulin [Mass ratio] 1.0 {ratio} Normal [facility] Comment on above: Performed By: #### L IVER, LIPID, BMP #### [facility] [address] [place] [address] Dr. Lara Askew ALP [Catalytic activity/Vol] 93 U/L Normal 46-116 [facility] Comment on above: Performed By: #### L IVER, LIPID, BMP #### [facility] [address] [place] [address] Dr. Lara Askew ALT [Catalytic activity/Vol] 23 U/L Normal 16-63 [facility] Comment on above: Performed By: #### L IVER, LIPID, BMP #### [facility] [address] [place] [address] Dr. Lara Askew AST [Catalytic activity/Vol] 21 U/L Normal 15-37 [facility] Comment on above: Performed By: #### L IVER, LIPID, BMP #### [facility] [address] [place] [address] Dr. Lara Askew BILI, CONJUGATED 0.1 mg/dL Normal 0.0-0.2 [facility] Comment on above: Performed By: #### L IVER, LIPID, BMP #### [facility] [address] [place] [address] Dr. Lara Askew Bilirubin [Mass/Vol] 0.5 mg/dL Normal 0.2-1.0 [facility] Comment on above: Performed By: #### L IVER, LIPID, BMP #### [facility] [address] [place] [address] Dr. Lara Askew Globulin (S) [Mass/Vol] 3.1 g/dL Normal [facility] Comment on above: Performed By: #### L IVER, LIPID, BMP #### [facility] [address] [place] [address] Dr. Lara Askew Protein [Mass/Vol] 6.1 g/dL Critically low 6.4-8.2 [facility] Comment on above: Performed By: #### L IVER, LIPID, BMP #### [facility] [address] [place] [address] Dr. Lara Askew MICROALBUMIN, RAND URon - mALB 24.1 mg/L Normal <=30.0 [facility] Comment on above: Performed By: #### M ALBR #### [facility] [address] [place] [address] Dr. Lara Askew PERIPHERAL SMEARon 2 Pathologist Cyto stain Nom (Cvx/Vag) [ID] DR. ROSEMARIE DOE Normal [facility] Comment on above: Result Comment: Revi [...] 06-10-22 Performed By: #### P ERSMR #### [facility] [address] [place] [address] Dr. Lara Askew PROF CHEM 8 (BAS METB)on Anion gap [Moles/Vol] 9.4 mmol/L Normal [facility] Comment on above: Performed By: #### L IVER, LIPID, BMP #### [facility] [address] [address] [address] Lara Askew Calcium [Mass/Vol] 8.7 mg/dL Normal 8.5-10.1 [facility] Comment on above: Performed By: #### L IVER, LIPID, BMP #### [facility] [address] [address] [address] Lara Askew Chloride [Moles/Vol] 105 mmol/L Normal 98-107 [facility] Comment on above: Performed By: #### L IVER, LIPID, BMP #### [facility] [address] [place] [address] Dr. Lara Askew CO2 [Moles/Vol] 28.6 mmol/L Normal 21.0-32.0 [facility] Comment on above: Performed By: #### L IVER, LIPID, BMP #### [facility] [address] [place] [address] Dr. Lara Askew Creatinine [Mass/Vol] 1.07 mg/dL Normal 0.70-1.30 [facility] Comment on above: Performed By: #### L IVER, LIPID, BMP #### [facility] [address] [place] [address] Dr. Lara Askew EGFR-AF MEXICAN >60 Normal >=60 [facility] Comment on above: Performed By: #### L IVER, LIPID, BMP #### [facility] [address] [place] [address] Dr. Lara Askew EGFR-NON AF MEXICAN >60 Normal >=60 [facility] Comment on above: Performed By: #### L IVER, LIPID, BMP #### [facility] [address] [place] [address] Dr. Lara Askew Glucose [Mass/Vol] 147 mg/dL Critically high 74-106 [facility] Comment on above: Performed By: #### L IVER, LIPID, BMP #### [facility] [address] [address] [address] Lara Askew Potassium [Moles/Vol] 5.0 mmol/L Normal 3.5-5.1 [facility] Comment on above: Performed By: #### L IVER, LIPID, BMP #### [facility] [address] [address] [address] Lara Askew Sodium [Moles/Vol] 138 mmol/L Normal 136-145 [facility] Comment on above: Performed By: #### L IVER, LIPID, BMP #### [facility] [address] [place] [address] Dr. Lara Askew Urea nitrogen [Mass/Vol] 22.0 mg/dL Critically high 7.0-18.0 [facility] Comment on above: Performed By: #### L IVER, LIPID, BMP #### [facility] [address] [place] [address] Dr. Lara Askew Urea nitrogen/Creatinine [Mass ratio] 20.6 mg/mg Normal [facility] Comment on above: Performed By: #### L IVER, LIPID, BMP #### [facility] [address] [place] [address] Dr. Lara Askew VITAMIN D 25 OHon 06-06-2022 VIT D 25-OH 10.6 ng/mL Normal [facility] Comment on above: Performed By: #### V DANIEL, PSASC #### [facility] [address] [place] [address] Dr. Lara Askew VIT D RANGES SEE BELOW Normal [facility] Comment on above: Result Comment: <20 ng/mL Vit D deficient 20 - <30 ng/mL Vit D insufficient 30 - 100 ng/mL Vit D sufficient >100 ng/mL Potential Toxicity Performed By: #### V ITMIKAELA, PSASC #### [facility] [address] [place] [address] Dr. Lara Askew GLYCOHEMOGLOBIN A1Con 2021 ADA RECOMMENDATION SEE BELOW Normal [facility] Comment on above: Result Comment: ADA RECOMMENDED LIMIT 4.0 - 6.0 ADA THERAPEUTIC TARGET < 7.0 ACTION SUGGESTED > 7.0 Performed By: #### A 1C #### [facility] [address] [place], [place] [address] Dr. Lara Askew Glucose [Mass/Vol] 169 mg/dL Normal [facility] Comment on above: Performed By: #### A 1C #### [facility] [address] [place], [place] [address] Dr. Lara Askew HbA1c (Bld) [Mass fraction] 7.5 % Critically high 4.5-6.2 [facility] Comment on above: Performed By: #### A 1C #### [facility] [address] [place], [place] [address] Dr. Lara Askew Albumin [Mass/volume] in Ser um or Plasmaon 01-01-2021 Albumin [Mass/Vol] 3.5 g/dL 3.2-5.5 [facility] Creatinine and Glomerular fi ltration rate.predicted panel (S/P/Bld)on 01-01-2021 Creatinine [Mass/Vol] 1.02 mg/dL 0.64-1.27 [facility] Estimated glomerular filtrat ion rate (GFR) non- Americanon 01-01-2021 GFR/1.73 sq M.predicted among non-blacks MDRD (S/P/Bld) [Vol rate/Area] > 60 mL/Min [facility] Globulin Calc (S) [Mass/Vol] on 01-01-2021 Globulin (S) [Mass/Vol] 2.0 g/dL [facility] No Panel Informationon 01-01 Estimated GFR () > 60 mL/Min [facility] Comment on above: GFR estimated refere nce range: According to KDOQI guidelines, <60 ml/min/1.73m2 is sufficient to diagnose a patient with chronic kidney disease. Pharmacy Creatinine Clearance (Chem N/A [facility] Protein [Mass/volume] in Ser um or Plasmaon 01-01-2021 Protein [Mass/Vol] 5.5 g/dL 6.1-7.9 [facility] Serum or plasma alanine chambers otransferase measurement without P-5'-P (enzymatic activion 01-01-2021 ALT No additional P-5'-P [Catalytic activity/Vol] 28 U/L 10-60 [facility] Serum or plasma albumin/glob ulin mass ratioon 01-01-2021 Albumin/Globulin [Mass ratio] 1.8 {ratio} [facility] Serum or plasma alkaline clarisa sphatase measurement (enzymatic activity/volume)on 01-01-2021 ALP [Catalytic activity/Vol] 78 U/L 32-92 [facility] Serum or plasma aspartate am inotransferase measurement (enzymatic activity/volume)on 01-01-2021 AST [Catalytic activity/Vol] 21 U/L 10-42 [facility] Serum or plasma calcium elham urement (mass/volume)on 01-01-2021 Calcium [Mass/Vol] 9.6 mg/dL 8.2-10.2 [facility] Serum or plasma chloride daria surement (moles/volume)on 01-01-2021 Chloride [Moles/Vol] 103 mmol/L 95-114 [facility] Serum or plasma glucose elham urement (mass/volume)on 01-01-2021 Glucose [Mass/Vol] 59 mg/dL 70-100 [facility] Comment on above: ADA recommended refe rence rangeRandom Glucose Reference Range is dependent on time and content of last meal. Glucose of more than 200 mg/dL in a nonstressed, ambulatory subject supports the diagnosis of Diabetes Mellitus. Serum or plasma potassium me asurement (moles/volume)on 01-01-2021 Potassium [Moles/Vol] 4.8 mmol/L 3.5-5.1 [facility] Serum or plasma sodium measu rement (moles/volume)on 01-01-2021 Sodium [Moles/Vol] 143 mmol/L 136-146 [facility] Serum or plasma total biliru bin measurement (mass/volume)on 01-01-2021 Bilirubin [Mass/Vol] 0.9 mg/dL 0.3-1.2 [facility] Serum or plasma total carbon dioxide measurement (moles/volume)on 01-01-2021 CO2 [Moles/Vol] 28.5 mmol/L 22.0-30.0 [facility] Serum or plasma urea nitroge n measurement (mass/volume)on 01-01-2021 Urea nitrogen [Mass/Vol] 14 mg/dL 04-12 [facility] Vital Signs Date Time Vital Sign Value Performing Clinician Augustus elian 03-18-2024 09:44-0400 Body height 172.72 cm MD Cruzito Mcgrath Work Phone: [facility] 03-18-2024 09:44-0400 Body mass index (BMI) [Ratio] 24.5 kg/m2 MD Cruzito Mcgrath Work Phone: [facility] 03-18-2024 09:44-0400 Body temperature 97.8 [degF] MD Cruzito Mcgrath Work Phone: [facility] 03-18-2024 09:44-0400 Body weight 73.02 kg MD Cruzito Mcgrath Work Phone: [facility] 03-18-2024 09:44-0400 Diastolic blood pressure 84 mm[Hg] MD Cruzito Mcgrath Work Phone: [facility] 03-18-2024 09:44-0400 Heart rate 68 /min MD Cruzito Mcgrath Work Phone: [facility] 03-18-2024 09:44-0400 Respiratory rate 16 /min MD Cruzito Mcgrath Work Phone: [facility] 03-18-2024 09:44-0400 SaO2% (BldA) [Mass fraction] 98 % MD Cruzito Mcgrath Work Phone: [facility] 03-18-2024 09:44-0400 Systolic blood pressure 126 mm[Hg] MD Cruzito Mcgrath Work Phone: [facility] 01-16-2024 14:09-0400 Body mass index (BMI) [Ratio] 24.89 kg/m2 Faraz Beckham MD Work Phone: [facility] 01-16-2024 14:09-0400 Body temperature 97.2 [degF] Faraz Beckham MD Work Phone: [facility] 01-16-2024 14:09-0400 Body weight 73.21 kg Faraz Beckham MD Work Phone: [facility] 01-16-2024 14:09-0400 Diastolic blood pressure 35 mm[Hg] Faraz Beckham MD Work Phone: [facility] 01-16-2024 14:09-0400 Heart rate 45 /min Faraz Beckham MD Work Phone: [facility] 01-16-2024 14:090400 Respiratory rate 18 /min Faraz Beckham MD Work Phone: [facility] 01-16-2024 14:09-0400 SaO2% (BldA) [Mass fraction] 98 % Faraz Beckham MD Work Phone: [facility] 01-16-2024 14:09-0400 Systolic blood pressure 132 mm[Hg] Faraz Beckham MD Work Phone: [facility] 09-03-2023 12:11-0500 Body height 172.7 cm Geneva Gonzaleze r ENGINEERING L[employer]URER[employer]OTH [employer]HER [facility] 09-03-2023 12:11-0500 Body mass index (BMI) [Ratio] 26 kg/m2 Geneva Riggsopher ENGINEERING LECTURER[employer]OTH USHER Work Phone: [facility] 09-03-2023 12:11-0500 Body weight 77.56 kg Geneva Floresistophe r ENGINEERING LECTURER[employer]OTH USHER Work Phone: [employer] 09-03-2023 12:11-0500 Diastolic blood pressure 58 mm[Hg] Geneva Riggsopher ENGINEERING LECTURER[employer]BOOTH USHER Work Phone: [facility] 09-03-2023 12:11-0500 Heart rate 42 /min Geneva Floresistophe r ENGINEERING LECTURER[employer]OTH USHER Work Phone: [facility] 09-03-2023 12:11-0500 SaO2% (BldA) [Mass fraction] 98 % Geneva Sanders ENGINEERING LECTURER[employer]OTH USHER Work Phone: [facility] 09-03-2023 12:11-0500 Systolic blood pressure 130 mm[Hg] Geneva Sanders ENGINEERING LECTURER[employer]OTH USHER Work Phone: [facility] 08-27-2023 14:07-0500 Body height 172.7 cm Debbie Gonzalez MD Work Phone: [facility] 08-27-2023 14:07-0500 Body mass index (BMI) [Ratio] 25.7 kg/m2 Debbie Gonzalez MD Work Phone: [facility] 08-27-2023 14:07-0500 Body weight 76.66 kg Debbie Gonzalez MD Work Phone: [facility] 08-27-2023 14:07-0500 Diastolic blood pressure 50 mm[Hg] Debbie Gonzalez MD Work Phone: [facility] 08-27-2023 14:07-0500 Heart rate 47 /min Debbie Gonzalez MD Work Phone: [facility] 08-27-2023 14:07-0500 SaO2% (BldA) [Mass fraction] 98 % Debbie Gonzalez MD Work Phone: [facility] 08-27-2023 14:07-0500 Systolic blood pressure 132 mm[Hg] Debbie Gonzalez MD Work Phone: [facility] 12-27-2022 13:34-0400 Body height 171.5 cm Faraz Beckham MD Work Phone: [facility] 12-27-2022 13:34-0400 Body temperature 97.59 [degF] Faraz Beckham MD Work Phone: [facility] 12-27-2022 13:34-0400 Body weight 77.2 kg Faraz Beckham MD Work Phone: [facility] 12-27-2022 13:34-0400 Diastolic blood pressure 56 mm[Hg] Faraz Beckham MD Work Phone: [facility] 12-27-2022 13:34-0400 Heart rate 45 /min Faraz Beckham MD Work Phone: [facility] 12-27-2022 13:34-0400 Respiratory rate 16 /min Faraz Beckham MD Work Phone: [facility] 12-27-2022 13:34-0400 SaO2% (BldA) [Mass fraction] 98 % Faraz Beckham MD Work Phone: [facility] 12-27-2022 13:34-0400 Systolic blood pressure 146 mm[Hg] Faraz Beckham MD Work Phone: [facility] 06-21-2022 14:44-0500 Body height 172.7 cm Faraz Beckham MD Work Phone: [facility] 06-21-2022 14:44-0500 Body temperature 97.59 [degF] Faraz Beckham MD Work Phone: [facility] 06-21-2022 14:44-0500 Body weight 77.02 kg Faraz Beckham MD Work Phone: [facility] 06-21-2022 14:44-0500 Diastolic blood pressure 48 mm[Hg] Faraz Beckham MD Work Phone: [facility] 06-21-2022 14:44-0500 Heart rate 40 /min Faraz Beckham MD Work Phone: [facility] 06-21-2022 14:44-0500 Respiratory rate 16 /min Faraz Beckham MD Work Phone: [facility] 06-21-2022 14:44-0500 SaO2% (BldA) [Mass fraction] 99 % Faraz Beckham MD Work Phone: [facility] 06-21-2022 14:44-0500 Systolic blood pressure 179 mm[Hg] Faraz Beckham MD Work Phone: [facility] Encounters Encounter Date Encounter Type Care Provider Facility Start: 04-12-2024 End: 04-12-2024 ambulatory EHAB [facility] Start: 04-07-2024 End: 04-07-2024 ambulatory MD Cruzito Mcgrath Work Phone: [facility] Work Phone: Start: 04-07-2024 End: 04-07-2024 Patient encounter procedure MD Cruzito Mcgrath Work Phone: [facility]Ul[facility] [place] Work Phone: Start: 03-18-2024 End: 03-18-2024 Patient encounter procedure MD Cruzito Mcgrath Work Phone: [facility] Work Phone: Start: 03-09-2024 End: 03-09-2024 ambulatory JEROMY MEJIA Not Available Start: 03-05-2024 End: 03-06-2024 Emergency department patient visit DANIEL MISTRY [facility] Start: 03-05-2024 End: 03-05-2024 Emergency department patient visit CRUZITO MCGRATH [facility] Start: 02-26-2024 End: 02-26-2024 ambulatory CRUZITO MCGRATH Not Available Start: 02-24-2024 End: 02-24-2024 ambulatory JUDAH COSTELLO [facility] Start: 01-16-2024 End: 01-16-2024 Office outpatient visit 25 minutes Faraz Beckham MD Work Phone: Hematology/Oncology Comment on above: CLL (chronic lymphoc ytic leukemia) (HCC) (Primary Dx); Large granular lymphocytosis; Stage 3 chronic kidney disease, unspecified whether stage 3a or 3b CKD (HCC) Start: 01-16-2024 End: 01-16-2024 ambulatory FARAZ BECKHAM Facility:[facility] Start: 01-09-2024 End: 01-09-2024 ambulatory CRUZITO ALCIDES Not Available Start: 01-08-2024 End: 01-08-2024 ambulatory BRAD STINSON Not Available Start: 12-27-2023 End: 12-27-2023 ambulatory Arminda Valverde [facility] Work Phone: Start: 12-27-2023 End: 12-27-2023 Departed Referred DO Arminda Valverde Work Phone: [facility] Start: 12-18-2023 End: 12-18-2023 ambulatory CRUZITO ALCIDES Not Available Start: 10-24-2023 End: 10-24-2023 ambulatory CRUZITO MCGRATH Not Available Start: 09-03-2023 End: 09-03-2023 [facility] [facility] Start: 09-03-2023 End: 09-03-2023 Office outpatient visit 15 minutes Geneva Sanders ENGINEERING LECTURER-BOOTH USHER Work Phone: [facility] Comment on above: 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 (Primary Dx); Sinus pause; Hypertension, unspecified type; NSTEMI (non-ST elevated myocardial infarction) ([facility]) Start: 08-27-2023 End: 08-27-2023 Office outpatient visit 15 minutes Debbie Gonzalez MD Work Phone: [facility] Comment on above: History of coronary angioplasty with insertion of stent (Primary Dx); Pulmonary hypertension ([facility]); Primary hypertension; Hx of hyperlipidemia; Sinus pause Start: 08-27-2023 End: 08-27-2023 ambulatory [facility] L[facility] Start: 08-26-2023 Telephone encounter Gabbie Rebolledo CMA [facility] Start: 08-25-2023 End: 08-25-2023 ambulatory TAYLER COREY [facility] Start: 08-21-2023 End: 08-21-2023 Patient encounter procedure Patria Mendozalosser ENGINEERING LECTURER-BOOTH USHER Work Phone: [facility] Start: 08-21-2023 End: 08-21-2023 [facility] Start: 08-20-2023 End: 08-20-2023 Patient encounter procedure Patria Mendozalosser ENGINEERING LECTURER-BOOTH USHER Work Phone: [facility] Start: 08-20-2023 End: 08-20-2023 [facility] Start: 08-18-2023 End: 08-18-2023 [facility] Start: 08-14-2023 End: 08-14-2023 Patient encounter procedure Patria Mendozalosser ENGINEERING LECTURER-BOOTH USHER Work Phone: [facility] Start: 08-14-2023 End: 08-14-2023 [facility] Start: 08-13-2023 End: 08-13-2023 [facility] Start: 08-11-2023 End: 08-11-2023 Patient encounter procedure Patria Mendozalosser ENGINEERING LECTURER-BOOTH USHER Work Phone: [facility] Start: 08-11-2023 End: 08-11-2023 [facility] Start: 08-07-2023 End: 08-07-2023 Patient encounter procedure Patria Mendozalosser ENGINEERING LECTURER-BOOTH USHER Work Phone: [facility] Start: 08-07-2023 End: 08-07-2023 [facility] Start: 08-06-2023 End: 08-06-2023 [facility] Start: 08-05-2023 End: 08-05-2023 ambulatory WAYNE DONALD [facility] Start: 08-04-2023 Documentation procedure Wayne Donald MD Work Phone: [facility] [employer] Operator Sign In Start: 08-04-2023 End: 08-04-2023 Patient encounter procedure Kaityaliyah Home ENGINEERING LECTURER-BOOTH USHER Work Phone: [facility] Start: 08-04-2023 End: 08-04-2023 [facility] Start: 07-31-2023 End: 07-31-2023 [facility] Start: 07-30-2023 End: 08-21-2023 [facility] Start: 07-28-2023 End: 07-28-2023 [facility] Start: 07-24-2023 End: 07-24-2023 Patient encounter procedure Patria Mendozalosser ENGINEERING LECTURER-BOOTH USHER Work Phone: [facility] Start: 07-24-2023 End: 07-24-2023 [facility] Start: 07-23-2023 End: 07-23-2023 ambulatory CRUZITO MCGRATH [facility] Start: 07-23-2023 End: 07-23-2023 Patient encounter procedure Kaitysangabdiel MendozaHome ENGINEERING LECTURER-BOOTH USHER Work Phone: [facility] Start: 07-23-2023 End: 07-23-2023 [facility] Start: 07-22-2023 End: 07-22-2023 ambulatory CRUZITO CHATMANERER Not Available Start: 07-17-2023 End: 07-17-2023 Patient encounter procedure Kaityaliyah Home ENGINEERING LECTURER-BOOTH USHER Work Phone: [facility] Comment on above: Arrived Start: 07-17-2023 End: 07-17-2023 ambulatory [facility] Start: 07-16-2023 End: 07-16-2023 ambulatory CRUZITO MCGRATH Facility:[facility] Start: 07-16-2023 End: 07-21-2023 ambulatory [facility] Start: 07-10-2023 End: 07-10-2023 ambulatory [facility] Start: 07-09-2023 End: 07-09-2023 ambulatory [facility] Start: 07-07-2023 End: 07-07-2023 [facility] Start: 07-03-2023 End: 07-21-2023 ambulatory [facility] Start: 07-01-2023 End: 07-01-2023 ambulatory EMELY RACHELLaAPRIL Not Available Start: 12-27-2022 End: 12-27-2022 Office outpatient visit 15 minutes Faraz Beckham MD Work Phone: Hematology/Oncology Comment on above: CLL (chronic lymphoc ytic leukemia) (HCC) (Primary Dx); Large granular lymphocytosis; Stage 3 chronic kidney disease, unspecified whether stage 3a or 3b CKD (HCC); Type 2 diabetes mellitus 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, unspecified whether skilled nursing insulin use (HCC) Start: 06-27-2022 End: 06-28-2022 [...] Patient encounter procedure Cruzito Mcgrath Work Phone: -[facility] Procedures Date Procedure Procedure Detail Performing Clinician Start: 08-27-2023 Follow-up visit Follow-up NASH GONZALEZ Start: 04-05-2023 Adult depression screening assessment [facility] 1 Start: 12-26-2022 Colonoscopy Faraz miles MD Work Phone: Start: 06-06-[address] CRUZITO SEAY Comment on above: Performed By: #### V ITAD, PSASC #### [facility] [address] [place] [address] Dr. Lara Askew Start: 10-30-2016 Microalbumin [Mass/volume] in Urine by Test strip Pmh 1 History of placement of stent for coronary artery disease History of coronary angioplasty with insertion of stent Debbie Gonzalez MD Work Phone: Plan of Treatment Date Care Activity Detail Author Start: 12-27-2027 Screening for malignant neoplasm of colon Colonoscopy [facility] Start: 06-21-2025 DIABETES SCREEN DIABETES SCREEN [facility] Start: 01-15-2025 Creatinine measurement Serum Creatinine [facility] Start: 09-03-2024 Adult BMI Screening Adult BMI Screening [facility] Start: 09-03-2024 Tobacco Screening Tobacco Screening [facility] Start: 08-27-2024 Adult BMI Screening Adult BMI Screening [facility] Start: 08-27-2024 Tobacco Screening Tobacco Screening [facility] Start: 07-17-2024 End: 01-15-2025 CBC W Auto Differential panel - Blood COMPLETE BLOOD COUNT AND DIFFERENTIAL Lab Routine CLL (chronic lymphocytic leukemia) (HCC) Expected: 07/17/2024 (Approximate), Expires: 01/15/2025 [facility] Comment on above: Expected: 07/17/2024 (Approximate), Expi res: 01/15/2025 Start: 07-17-2024 End: 01-15-2025 Comprehensive metabolic 2000 panel - Serum or Plasma COMPREHENSIVE METABOLIC PANEL Lab Routine CLL (chronic lymphocytic leukemia) (HCC) Expected: 07/17/2024 (Approximate), Expires: 01/15/2025 [facility] Comment on above: Expected: 07/17/2024 (Approximate), Expi res: 01/15/2025 Start: 07-17-2024 End: 01-15-2025 Lactate dehydrogenase [Enzymatic activity/volume] in Serum or Plasma LACTATE DEHYDROGENASE Lab Routine CLL (chronic lymphocytic leukemia) (HCC) Expected: 07/17/2024 (Approximate), Expires: 01/15/2025 [facility] Work Phone: Comment on above: Expected: 07/17/2024 (Approximate), Expi res: 01/15/2025 Start: 07-17-2024 End: 10-16-2024 Urate [Mass/volume] in Serum or Plasma URIC ACID Lab Routine CLL (chronic lymphocytic leukemia) (HCC) Expected: 07/17/2024 (Approximate), Expires: 10/16/2024 [facility] Comment on above: Expected: 07/17/2024 (Approximate), Expi res: 10/16/2024 Start: 07-16-2024 Complete blood count Hemoglobin/Hematocrit [facility] Start: 07-09-2024 End: 07-09-2024 Follow-up encounter 07/09/2024 2:15 PM EST Visit (SP) Office Hematology/Oncology [address] [place] [address] [place] [address] Faraz Beckham MD [address] [place] [address] 6 month follow up lab Hematology/Oncology Comment on above: 6 month follow up lab Start: 07-09-2024 End: 07-09-2024 Patient encounter procedure 07/09/2024 2:00 PM EST Office Visit [facility] [address] [place] [address] [place] [address] 6 month follow up lab [facility] Comment on above: 6 month follow up lab Start: 05-01-2024 Adult BMI Screening Adult BMI Screening [facility] Start: 05-01-2024 Tobacco Screening Tobacco Screening [facility] Start: 04-07-2024 Pulse volume recorder plethysmography [facility] Start: 04-05-2024 Depression Screening Depression Screening [facility] Start: 03-15-2024 End: 03-15-2024 Patient encounter procedure [facility] Start: 02-24-2024 End: 02-24-2024 Patient encounter procedure [facility] Start: 01-21-2024 Hemoglobin A1c measurement HbA1C [facility] Start: 12-28-2023 HEMOGLOBIN/HEMATOCRIT HEMOGLOBIN/HEMATOCRIT [facility] Start: 12-28-2023 SERUM CREATININE SERUM CREATININE [facility] Start: 12-27-2023 Colonoscopy COLONOSCOPY [facility] Start: 12-27-2023 COLORECTAL CANCER SCREENING COLORECTAL CANCER SCREENING [facility] Start: 10-28-2023 End: 10-28-2023 Patient encounter procedure 10/28/2023 11:00 AM EDT Office Visit [facility] [address] [place] [address] Gage Norton MD [address] [place] [address] [facility] Start: 09-27-2023 Covid-19 Vaccine () Covid-19 Vaccine () [facility] Start: 09-03-2023 End: 09-03-2023 Patient encounter procedure 09/03/2023 1:00 PM EST Office Visit [facility] [address] [place] [address] Geneva Sanders APRN-BOOTH USHER [address] [place] [address] [facility] Start: 08-27-2023 End: 08-27-2023 Patient encounter procedure 08/27/2023 2:00 PM EST Office Visit [facility] [address] [place] [phone] Debbie Gonzalez MD [address] [place] [address] [facility] Start: 08-21-2023 End: 08-21-2023 Patient encounter procedure 08/21/2023 1:00 PM EST Office Visit [facility] [address] [place] [phone] Patria Bhat APRN-BOOTH USHER [address] [place] [address] [facility] Start: 08-20-2023 End: 08-20-2023 Patient encounter procedure 08/20/2023 1:00 PM EST Office Visit [facility] [address] [place] [address] Patria Bhat APRN-BOOTH USHER [address] [place] [address] [facility] Start: 08-18-2023 End: 08-18-2023 Patient encounter procedure 08/18/2023 1:00 PM EST Office Visit [facility] [address] [place] [address] Patria Bhat APRN-BOOTH USHER [address] [place] [address] [facility] Start: 08-14-2023 End: 08-14-2023 Patient encounter procedure 08/14/2023 1:00 PM EST Office Visit [facility] [address] [place] [address] Patria Bhat APRN-BOOTH USHER [address] [place] [address] [facility] Start: 08-13-2023 End: 08-13-2023 Patient encounter procedure 08/13/2023 1:00 PM EST Office Visit [facility] [address] [facility] [address] Patria Bhat APRN-BOOTH USHER [address] [place] [address] [facility] Start: 08-11-2023 End: 08-11-2023 Patient encounter procedure 08/11/2023 1:00 PM EST Office Visit [facility] [address] [place] [address] Patria Bhat APRN-BOOTH USHER [address] [place] [address] [facility] Start: 08-07-2023 End: 08-07-2023 Patient encounter procedure 08/07/2023 1:00 PM EST Office Visit [facility] [address] [place] [address] Patria Bhat APRN-BOOTH USHER [address] [place] [address] [facility] Start: 08-06-2023 End: 08-06-2023 Patient encounter procedure 08/06/2023 1:00 PM EST Office Visit [facility] [address] [place] [address] Patria Bhat APRN-BOOTH USHER [address] [place] [address] [facility] Start: 08-05-2023 End: 08-05-2023 Patient encounter procedure 08/05/2023 9:00 AM EST Appointment [facility] [address] [place] [id number] Wayne Donald MD [address] [place] [address] [facility] Start: 08-04-2023 End: 08-04-2024 Holter monitor study Holter monitor 24-48 hour Cardiac Services Routine Bradycardia Expected: 08/04/2023, Expires: 08/04/2024 [facility] Work Phone: Comment on above: Expected: 08/04/2023, Expires: Start: 08-04-2023 End: 08-04-2023 Patient encounter procedure 08/04/2023 1:00 PM EST Office Visit [facility] [address] [place] [phone] Patria Bhat APRN-BOOTH USHER [address] [place] [address] [facility] Start: 07-31-2023 End: 07-31-2023 Patient encounter procedure 07/31/2023 1:00 PM EST Office Visit [facility] [address] [place] [address] Patria Bhat APRN-BOOTH USHER [address] [place] [address] [facility] Start: 07-30-2023 End: 07-30-2023 Patient encounter procedure 07/30/2023 1:00 PM EST Office Visit [facility] [address] [place] [address] Patria Bhat APRN-BOOTH USHER [address] [place] [address] [facility] Start: 07-28-2023 End: 07-28-2023 Patient encounter procedure 07/28/2023 1:00 PM EST Office Visit [facility] [address] [place] [address] Patria Bhat APRN-BOOTH USHER [address] [place] [address] [facility] Start: 07-24-2023 End: 07-24-2023 Patient encounter procedure 07/24/2023 1:00 PM EST Office Visit [facility] [address] [place] [address] Patria Bhat APRN-BOOTH USHER [address] [place] [address] [facility] Start: 07-23-2023 End: 07-23-2023 Patient encounter procedure 07/23/2023 1:00 PM EST Office Visit [facility] [address] [place] [address] Patria Bhat, SATURNINO-BOOTH USHER [address] [place] [address] [facility] Start: 07-21-2023 Advance Directive Discussion Advance Directive Discussion [facility] Start: 07-21-2023 Behavioral Health Screening Behavioral Health Screening [facility] Start: 06-28-2023 End: 12-28-2023 CBC W Auto Differential panel - Blood CBC + DIFF Lab Routine CLL (chronic lymphocytic leukemia) (HCC) Large granular lymphocytosis Expected: 06/28/2023 (Approximate), Expires: 12/28/2023 [facility] Work Phone: Comment on above: Expected: 06/28/2023 (Approximate), Expi res: 12/28/2023 Start: 06-28-2023 End: 12-28-2023 Comprehensive metabolic 2000 panel - Serum or Plasma COMP METABOLIC PANEL Lab Routine CLL (chronic lymphocytic leukemia) (HCC) Large granular lymphocytosis Expected: 06/28/2023 (Approximate), Expires: 12/28/2023 [facility] Work Phone: Comment on above: Expected: 06/28/2023 (Approximate), Expi res: 12/28/2023 Start: 06-28-2023 End: 12-28-2023 Lactate dehydrogenase [Enzymatic activity/volume] in Serum or Plasma LD LACTATE DEHYDRO Lab Routine CLL (chronic lymphocytic leukemia) (HCC) Large granular lymphocytosis Expected: 06/28/2023 (Approximate), Expires: 12/28/2023 [facility] Work Phone: Comment on above: Expected: 06/28/2023 (Approximate), Expi res: 12/28/2023 Start: 06-28-2023 End: 08-28-2023 Urate [Mass/volume] in Serum or Plasma URIC ACID BLOOD Lab Routine CLL (chronic lymphocytic leukemia) (HCC) Large granular lymphocytosis Expected: 06/28/2023 (Approximate), Expires: 08/28/2023 [facility] Work Phone: Comment on above: Expected: 06/28/2023 (Approximate), Expi res: 08/28/2023 Start: 05-22-2023 Hemoglobin A1c/Hemoglobin.total in Blood HBA1C [facility] Start: 03-21-2023 COVID-19 Vaccine () COVID-19 Vaccine () [facility] Start: 03-21-2023 Influenza vaccination Influenza Vaccine [facility] Start: 07-21-2022 ADVANCE DIRECTIVE DISCUSSION ADVANCE DIRECTIVE DISCUSSION [facility] Start: 07-21-2022 DEPRESSION ASSESSMENT DEPRESSION ASSESSMENT [facility] Start: 06-21-2022 End: 08-21-[address] [facility] Work Phone: Comment on above: Expected: 06/21/2022, Expires: 3 Start: 06-21-2022 End: 08-21-2022 PROTEIN ELECTROPHORESIS SERUM W/INTERP [facility] Work Phone: Comment on above: Expected: 06/21/2022, Expires: 3 Start: 03-21-2022 Influenza vaccination INFLUENZA (#1) [facility] Start: 07-21-2021 ADVANCE DIRECTIVE DISCUSSION ADVANCE DIRECTIVE DISCUSSION [facility] Start: 07-21-2021 DEPRESSION ASSESSMENT DEPRESSION ASSESSMENT [facility] Start: 06-24-2019 PNEUMOCOCCAL: 65+ (2 - PPSV23 if available, else PCV20) PNEUMOCOCCAL: 65+ (2 - PPSV23 if available, else PCV20) [facility] Start: 08-19-2018 Pneumococcal Vaccine: 65+ (2 of 2 - PPSV23 or PCV20) Pneumococcal Vaccine: 65+ (2 of 2 - PPSV23 or PCV20) [facility] Start: 08-19-2018 PNEUMOCOCCAL: 65+ (2 - PPSV23 if available, else PCV20) PNEUMOCOCCAL: 65+ (2 - PPSV23 if available, else PCV20) [facility] Start: 10-30-2017 Urine screening for protein Urine Microalbumin [facility] Start: 2012 Fall Risk Screening Fall Risk Screening [facility] Start: 2012 PNEUMOCOCCAL: 65+ (1 - PCV) PNEUMOCOCCAL: 65+ (1 - PCV) [facility] Start: 2007 RSV Vaccine (1 - 1-dose 60+ series) RSV Vaccine (1 - 1-dose 60+ series) [facility] Start: 1997 Administration of varicella zoster vaccine Zoster (Shingles) Vaccine (1 of 2) [facility] Start: 1997 SHINGRIX VACCINE (1 of 2) SHINGRIX VACCINE (1 of 2) [facility] Start: 1992 COLOGUARD (FIT-DNA) COLOGUARD (FIT-DNA) [facility] Start: 1992 Colonoscopy COLONOSCOPY [facility] Start: 1992 COLORECTAL CANCER SCREENING COLORECTAL CANCER SCREENING [facility] Start: [address] COLONOGRAPHY [facility] Start: 1992 DIABETES SCREEN DIABETES SCREEN [facility] Start: 1992 FECAL OCCULT BLOOD FECAL OCCULT BLOOD [facility] Start: 1992 SIGMOIDOSCOPY SIGMOIDOSCOPY [facility] Start: 1982 LIPID SCREEN LIPID SCREEN [facility] Start: 1966 DTaP,Tdap and Td Vaccines (1 - Tdap) DTaP,Tdap and Td Vaccines (1 - Tdap) [facility] Start: 1966 SHINGRIX VACCINE (1 of 2) SHINGRIX VACCINE (1 of 2) [facility] Start: 1966 Urine microalbumin profile [facility] Start: 1965 Adult BMI Follow Up Plan Adult BMI Follow Up Plan [facility] Start: 1965 ANNUAL PCP TEAM CHRONIC DISEASE VISIT ANNUAL PCP TEAM CHRONIC DISEASE VISIT [facility] Start: 1965 Hepatitis B surface antibody level LDL CHOLESTEROL [facility] Start: 1965 HEPATITIS C SCREENING HEPATITIS C SCREENING [facility] Start: 1965 Hepatitis C screening Hepatitis C Screening [facility] Start: 1957 3 comp foot exam completed DIABETIC FOOT EXAM [facility] Start: 1957 Diabetic foot examination Diabetic Foot Exam [facility] Start: 1957 Glaucoma screening Dilated Retinal Exam [facility] Start: 1957 Hepatitis B screening URINE ALBUMIN:CREATININE RATIO [facility] Start: 1957 Hepatitis C antibody, confirmatory test DILATED RETINAL EXAM [facility] Start: 01-18-1948 COVID-19 VACCINE (#1) COVID-19 VACCINE (#1) [facility] Start: 1947 ABDOMINAL AORTIC ANEURYSM SCREENING ABDOMINAL AORTIC ANEURYSM SCREENING [facility] Start: 1947 Glaucoma screening Diabetic Ophthalmology Exam [facility] Start: 1947 Medicare Annual Wellness Visit Medicare Annual Wellness Visit [facility] CARDIOPULMONARY REHABILITATION CARDIOPULMONARY REHABILITATION Cardiac Services [...] 08/25/2023 [facility] Comment on above: Ordered: 08/25/2023 [facility] Immunizations Immunization Date Immunization Notes Care Provider Fa [facility] 04-02-2022 influenza, high-dose , quadrivalent vaccine (FLUZONE HIGH DOSE QUADRIVALENT) Faraz Beckham MD Work Phone: [facility] 04-02-2022 influenza virus vaccine, unspecified formulation [facility] 1 [facility] 03-30-2020 influenza, high dose seasonal, preservative-free Faraz Beckham MD Work Phone: [facility] 04-01-2019 influenza, high dose seasonal, preservative-free Faraz Beckham MD Work Phone: [facility] 06-24-2018 pneumococcal conjuga te vaccine, 13 valent Faraz Beckham MD Work Phone: [facility] 05-13-2018 influenza, high dose seasonal, preservative-free Faraz Beckham MD Work Phone: [facility] 05-28-2017 influenza, injectabl e, quadrivalent, contains preservative Faraz Beckham MD Work Phone: [facility] Payers Date Payer Category Payer Self-pay [id number] 2021 Private Health Insurance [id number] 2012 Medicare [id number] 1959 Medicare [id number] 1959 Unknown [id number] 1947 Unknown [id number] 2.16.84 0.1.319059.3.579.2.593 1947 Unknown [id number] 2.16.84 0.1.921965.3.579.2.593 1947 Unknown [id number] 2.16.8 40.1.182021.3.579.2.1286 1947 Unknown [id number] 2.16.8 40.1.209460.3.579.2.1286 1947 Unknown [id number] 2.16.8 40.1.820259.3.579.2.1286 1947 Unknown [id number] 2.16.8 40.1.684287.3.579.2.1286 1947 Unknown [id number] 2.16.8 40.1.994943.3.579.2.1286 1947 Unknown [id number] 2.16.8 40.1.455497.3.579.2.1286 1947 Unknown [id number] 2.16.8 40.1.706291.3.579.2.1286 1947 Unknown [id number] 2.16.8 40.1.004106.3.579.2.1286 1947 Unknown [id number] 2.16.8 40.1.399940.3.579.2.1286 1947 Unknown [id number] 2.16.8 40.1.009335.3.579.2.1286 1947 Unknown [id number] 2.16.8 40.1.328380.3.579.2.1286 1947 Unknown [id number] 2.16.8 40.1.328436.3.579.2.1286 1947 Unknown [id number] 2.16.84 0.1.385623.3.579.2.1286 1947 Unknown [id number] 2.16.84 0.1.330656.3.579.2.1286 1947 Unknown [id number] 2.16.84 0.1.824473.3.579.2.1286 1947 Unknown [id number] 2.16.84 0.1.456756.3.579.2.1286 1947 Unknown [id number] 2.16.84 0.1.158281.3.579.2.1285 1947 Unknown [id number] 2.16.84 0.1.348526.3.579.2.1286 1947 Unknown [id number] 2.16.8 40.1.605827.3.579.2.1286 1947 Unknown [id number] 2.16.84 0.1.950920.3.579.2.1286 1947 Unknown [id number] 2.16.84 0.1.302108.3.579.2.1286 1947 Unknown [id number] 2.16.84 0.1.150938.3.579.2.1286 1947 Unknown [id number] 2.16.84 0.1.553863.3.579.2.1286 1947 Unknown [id number] 2.16.84 0.1.389852.3.579.2.1286 1947 Unknown [id number] 2.16.84 0.1.391966.3.579.2.1286 1947 Unknown [id number] 2.16.84 0.1.077323.3.579.2.1286 1947 Unknown [id number] 2.16.84 0.1.156313.3.579.2.1286 1947 Unknown [id number] 2.16.840 .1.634815.3.579.2.1286 1947 Unknown [id number] 2.16.84 0.1.349356.3.579.2.1286 1947 Unknown [id number] 2.16.84 0.1.601233.3.579.2.1259 1947 Unknown [id number] 2.16.84 0.1.441911.3.579.2.1259 1947 Unknown [id number] 2.16.84 0.1.678575.3.579.2.1259 1947 Unknown [id number] 2.16.84 0.1.400888.3.579.2.1259 1947 Unknown [id number] 2.16.84 [id number] 1945 Unknown [id number] 2.16.84 [id number] 1945 Unknown [id number] 1945 Unknown [id number] Unknown [id number] Unknown [id number] 2.16.8 [id number] Unknown [id number] 2.16.8 [id number] Worker's Compensation [id number] Social History Date Type Detail Facility Tobacco smoking stat [facility] Unknown if ever smoked [facility] Start: 1945 Sex Assigned At Male [facility] Start: 06-18-2022 Tobacco smoking status HIIS Smokes tobacco daily [facility] End: 07-21-2019 History of tobacco use Cigarette Smoker [facility] History of tobacco use Passive smoker [facility] Start: 06-18-2022 End: 06-21-2022 Tobacco use and exposure Smokeless tobacco non-user [facility] Start: 1945 Sex Assigned At Not on file [facility] Start: 01-16-2021 End: 06-21-2022 Tobacco smoking status NHIS Ex-smoker [facility] End: 07-21-2019 History of tobacco use Current smoker [facility] Start: 06-21-2022 End: 01-16-2024 Alcohol intake Not Asked [facility] Start: 06-11-2022 End: 06-21-2022 Exposure to SARS-CoV-2 (event) Not sure [facility] Start: 05-06-2022 End: 12-27-2022 Cigarettes smoked current (pack per day) - Reported 0.5 [facility] Start: 05-01-2023 End: 09-03-2023 Alcohol intake Current drinker of alcohol (finding) [facility] Start: 08-09-2019 End: 12-27-2022 Alcohol Use Disorder Identification Test - Consumption [AUDIT-C] [facility] Frequency of Alcohol Consumption Never [facility] Start: 05-06-2022 Tobacco Comment [facility] Start: 08-07-2018 Alcohol Comment once a month [facility] Medical Equipment Procedure Code Equipment Code Equipment Origin al Text Equipment Identifier Dates 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 Evaluation of progress towards goal: pt wants to discharge home independently Clinical Notes 06-21-2022 to 04-12-2024 Faraz Beckham MD - 01/16/2024 2:45 PM EDTPatient InstructionsOXANA Lopez - 09/03/2023 1:00 PM ESTMolionel Gonzalez MD - 08/27/2023 2:00 PM ESTPatient Instructions Note Date & Type Note Facility 04-12-[address] [facility] Cardiology Clinic Note Chief Complaint: New patient here to establish care. Ref from Dr. Mcgrath for CAD. He sees vascular surgery in [place] for PAD and carotid artery stenosis. Last heart cath was performed in Mar 2023 at [facility]. He was last seen in their office for follow up in Aug 2023. Patient states he's got a lot of side effects from Brilinta, and would like to go back to Plavix. He says [employer] was pushing Brilinta. Smokes 1-2 cigarettes a day. states he'd like to go back to work but he was relieved from his duties due to his condition. Wore 24 hr Holter monitor in Jul 2023 for asymptomatic bradycardia. Denies chest pain, SOB, palpitations. C/o LE edema and easy bruising. Also thinks Brilinta is causing memory loss. HPI: Ila Morejon is a 78 y.o. male with history of ASCVD/PCI 2016, diabetes, hypertension, [...] work 30 hours per week for the [employer]. UPDATE 04/12/2024 He is doing fairly well; he denies lightheadedness, dizziness, or syncope He said no further arm pain that was a symptom prior to requiring stents. Looking at the report of his cardiac catheterization and stent placement 04/07/2023: 99% stenosis in the stented portion of the mid right coronary artery with thrombus PMHx: Coronary artery disease involving yocha dehe coronary artery of yocha dehe heart without angina pectoris Abnormal result of cardiovascular function study, unspecified Hypertension Type 2 diabetes mellitus 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 ([facility]) Status post angioplasty with stent PAD (peripheral artery disease) ([facility]) Claudication ([facility]) Bilateral carotid artery stenosis Mixed hyperlipidemia Asymptomatic bradycardia NSTEMI (non-ST elevated myocardial infarction) ([facility]) Cardiology ROS: Review of Systems Cardiovascular: Positive for leg swelling. Hematologic/Lymphatic: Bruises/bleeds easily. Musculoskeletal: Positive for back pain. Psychiatric/Behavioral: Positive for memory loss. All other systems reviewed and are negative. Past Medical History He has no past medical history on file. Surgical History He has no past surgical history on file. Social History He has no history on file for tobacco use, alcohol use, and drug use. Family History No family history on file. Allergies Patient has no allergy information on record. Medications No current outpatient medications on file. Last Recorded Vitals BP 144/62 (BP Location: Left arm, Patient Position: Sitting) Pulse (!) 40 Ht 1.727 m (5' 8 ) Wt 74.4 kg (164 lb) SpO2 96% BMI 24.94 kg/m??? Physical Examination: GENERAL: alert and oriented x3, well developed, in no acute distress. HEAD: atraumatic, normocephalic. EYES: TUNDE, EOMI. NECK: trachea midline, no JVD present, no carotid bruits present. CARDIAC: S1, S2 present. RRR. No murmur, rubs, or gallops. RESPIRATORY: CTAB, no increased effort of breathing, no rales, rhonchi, or wheezing. ABDOMEN: soft, nontender, nondistended. EXTREMITIES: no lower extremity edema, peripheral pulses are 2+ bilaterally. No rash/skin discoloration present. NEURO: strength/sensation equal and symmetric in bilateral upper and lower extremities. PSYCH: appropriate mood, affect, and judgement. INVESTIGATIONS: Investigations: Echocardiogram 03/2023: Narrative Left Ventricle: Left ventricle appears normal in size. Systolic function is low normal to mildly decreased with an ejection fraction of 50-55%. The quantitative EF by 2D Sullivan biplane is 55%. See wall score diagram for wall motion abnormalities. Grade I diastolic dysfunction (impaired relaxation) is present. Lateral E' is 6.42 cm/s. Medial E' is 4.90 cm/s. Left Atrium: Left atrium is normal in size. The left atrial volume index is 22.3 mL/m2. Right Ventricle: Right ventricular size appears normal. The right ventricular basal diameter is 35.0 mm. Systolic function is normal. Normal tricuspid annular plane systolic excursion. Aortic Valve: The aortic valve is trileaflet. The leaflets are calcified. There is trace regurgitation. There is no hemodynamically significant stenosis. Mitral Valve: The leaflets are mildly thickened. There is moderate annular calcification. (more content not included)... [facility] 03-05-2024 Note XR CHEST 2 VWS Procedure: Chest x-ray performed Number of views:PA and lateral History:Weakness and fatigue Comparison:04/04/2023 Findings: The heart and lungs show no acute findings, and the mediastinum and debbie are grossly negative . Impression: No acute change. Finalized by Aurelia Payton DO on 03/05/2024 4:27 PM [facility] 01-16-2024 History of Present illness Narrative Images from the original note were not included. NAME: Ila Morejon CLINIC NO.: [id number] DATE OF SERVICE: January 16, 2024 ([facility]) Some elements in this clinic note that are critical to medical decision making have been carefully reviewed and included from a prior clinic note dated: July 16, 2023 (Bhavani) Referring Provider: Cruzito Mcgrath Additional Clinicians involved [...] Reverse Chronological Order 04/04/2023 - Admitted to [facility] with NSTEMI Underwent placement of [...] which included preparing to see the patient, [id number] patient care, completing clinical documentation, obtaining and/or reviewing separately obtained history, performing a medically appropriate examination, counseling and educating the patient/family/caregiver, ordering medications, tests, or procedures, and independently interpreting results (not separately reported). Faraz Beckham MD, CPE Hematology and Oncology Services Provided at: [facility], [place], [place] Scribe Attestation: This note was scribed [...] under my direction. CC: Cruzito Mcgrath MD (Nirmal) [address] [facility] [address] documented in this encounter [facility] 01-16-2024 Note HNO ID: [id number] Author: FARAZ BECKHAM MD Service: ? Author Type: Physician Type: Progress Notes Filed: 01/16/2024 18:22 Note Text: NAME: Ila Morejon CLINIC NO.: [id number] DATE OF SERVICE: January 16, 2024 (Bhavani) Some elements in this clinic note that are critical to medical decision making have been carefully reviewed and included from a prior clinic note dated: July 16, 2023 (Bhavani) Referring Provider: Cruzito Mcgrath Additional Clinicians involved [...] Reverse Chronological Order 04/04/2023 - Admitted to [facility] with NSTEMI Underwent placement of [...] 20 mg tablet (more content not included)... [facility] 01-16-2024 Instructions Faraz Beckham MD - 01/16/2024 2:33 PM EDT RTC in 6 months, with labs same day. documented in this encounter [facility] 09-03-2023 History of Present illness Narrative Ila Morejon Date of visit: 09/03/2023 Date of : 1945 Age: 78 y.o. Patient Active Problem List Diagnosis Coronary artery disease involving yocha dehe coronary artery of yocha dehe heart without angina pectoris Abnormal result of cardiovascular function study, unspecified Hypertension Type 2 diabetes mellitus 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 ([facility]) Status post angioplasty with stent PAD (peripheral artery disease) ([facility]) Claudication ([facility]) Bilateral carotid artery stenosis Mixed hyperlipidemia Asymptomatic bradycardia NSTEMI (non-ST elevated myocardial infarction) ([facility]) No Known Allergies Current Outpatient Medications Medication [...] mg total) by mouth in the morning. rhtxddxs-ckmr-WG-calcium &mins (THERAGRAN-M) 9 mg iron-400 mcg tablet [...] states needs ppm imp - per [facility] with ep myles while ep [...] work 30 hours per week for the [employer]. Past Medical History: Diagnosis Date Abnormal result of cardiovascular function study, unspecified Coronary atherosclerosis due to calcified coronary lesion Dental disease full dentures Diabetes mellitus ([facility]) Diabetes mellitus type 2, controlled ([facility]) Hyperlipidemia Hypertension Sleep apnea bipap Visual impairment No data recorded No data recorded No data recorded Past Surgical History: Procedure Laterality Date ANGIOPLASTY Bilateral 12/2020 legs CARDIAC CATHETERIZATION 2016 stents x2 Cardiac catheterization N/A 04/07/2023 Performed by Tayler Corey MD at [facility] CARDIAC CATH LABS COLONOSCOPY N/A 12/26/2022 Performed by Chino Raza DO at [facility] Coronary angiogram only N/A 04/07/2023 Performed by Tayler Corey MD at [facility] CARDIAC CATH LABS DAVINCI REPAIR HERNIA INGUINAL Left 11/06/2021 Performed by Chino Raza DO at [facility] drug eluting stent right coronary artery N/A 04/07/2023 Performed by Tayler Corey MD at [facility] CARDIAC CATH LABS SKIN BIOPSY Family History [...] Cardiac Electrophysiology 2. Coronary artery disease involving yocha dehe coronary artery of yocha dehe heart without angina pectoris 3. Hypertension, unspecified type 4. NSTEMI (non-ST elevated myocardial infarction) ([facility]) Sinus node dysfunction ASCVD/PCI March 2023 Preserved [...] Physician: Debbie Gonzalez MD [address] [place] [address] OXANA Lopez 09/03/23 1256 documented in this encounter [facility] 08-27-2023 History of Present illness Narrative Ila Morejon Date of visit: 08/27/2023 Date of : 1945 Age: 78 y.o. Patient Active Problem List Diagnosis Coronary artery disease involving yocha dehe coronary artery of yocha dehe heart without angina pectoris Abnormal result of cardiovascular function study, unspecified Hypertension Type 2 diabetes mellitus 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 ([facility]) Status post angioplasty with stent PAD (peripheral artery disease) ([facility]) Claudication ([facility]) Bilateral carotid artery stenosis Mixed hyperlipidemia Asymptomatic bradycardia NSTEMI (non-ST elevated myocardial infarction) ([facility]) No Known Allergies Current Outpatient Medications Medication [...] mg total) by mouth in the morning. ahypcepi-vjvg-CT-calcium &mins (THERAGRAN-M) 9 mg iron-400 mcg tablet [...] lesion Dental disease full dentures Diabetes mellitus ([facility]) Diabetes mellitus type 2, controlled ([facility]) Hyperlipidemia Hypertension Sleep apnea bipap Visual impairment No data recorded No data recorded No data recorded Past Surgical History: Procedure Laterality Date ANGIOPLASTY Bilateral 12/2020 legs CARDIAC CATHETERIZATION 2016 stents x2 Cardiac catheterization N/A 04/07/2023 Performed by Tayler Corey MD at [facility] CARDIAC CATH LABS COLONOSCOPY N/A 12/26/2022 Performed by Chino Raza DO at [facility] Coronary angiogram only N/A 04/07/2023 Performed by Tayler Corey MD at [facility] CARDIAC CATH LABS DAVINCI REPAIR HERNIA INGUINAL Left 11/06/2021 Performed by Chino Raza DO at [facility] drug eluting stent right coronary artery N/A 04/07/2023 Performed by Tayler Corey MD at [facility] CARDIAC CATH LABS SKIN BIOPSY Family History [...] by mouth 3 (three) times a day. kjkjdayt-uyna-MC-calcium &mins (THERAGRAN-M) 9 mg iron-400 mcg tablet [...] MD Referring Physician: Cruzito Mcgrath MD [address] [place] [address] documented in this encounter [facility] 08-26-2023 Miscellaneous Notes Called patient to remind them to bring their most current copy of their medication list with them to their appt. Patient verbalizes understanding. documented in this encounter [facility] 08-26-2023 Telephone encounter Note Called patient to remind them to bring their most current copy of their medication list with them to their appt. Patient verbalizes understanding. [facility] 08-04-2023 History of Present illness Narrative Patient noted to have a history of bradycardia Scheduled pt for 48 HM on 08/05/23 at 9am. Made appt in the [facility] office for 08/27/23 at 2pm. Called pt and he verbalizes understanding.slm documented in this encounter [facility] 08-04-2023 History of Present illness Narrative Cardiac rehab has noted asymptomatic bradycardia with heart rate into the 20s. Holter monitor ordered Patient should have follow-up in the office documented in this encounter [facility] 07-16-2023 Note HNO ID: [id number] Author: Faraz Beckham MD Service: ? Author Type: Physician Type: Progress Notes Filed: 07/16/2023 7:35 PM Note Text: NAME: Ila Morejon CLINIC NO.: [id number] DATE OF SERVICE: July 16, 2023 (Bhavani) Some elements in this clinic note that are critical to medical decision making have been carefully reviewed and included from a prior clinic note dated: December 27, 2022 (Bhavani) Referring Provider: Cruzito Mcgrath Additional Clinicians involved [...] Reverse Chronological Order 04/04/2023 - Admitted to [facility] with NSTEMI Underwent placement of [...] D3, 10 mcg (more content not included)... [facility] 12-27-2022 Instructions Faraz Beckham MD - 12/27/2022 2:28 PM EDT RTC in 6 months with labs same day. documented in this encounter [facility] 12-27-2022 History of Present illness Narrative Images from the original note were not included. NAME: Ila Morejon [facility] NO.: [id number] DATE OF SERVICE: December 27, 2022 (mickey) Some elements in this clinic note that are critical to medical decision making have been carefully reviewed and included from a prior clinic note dated: June 27, 2022 (Bhavani) Referring Provider: Cruzito Mcgrath Additional Clinicians involved [...] which included preparing to see the patient, mmaf-sv-ooaa patient care, completing clinical documentation, obtaining and/or reviewing separately obtained history, performing a medically appropriate examination, counseling and educating the patient/family/caregiver, ordering medications, tests, or procedures, and independently interpreting results (not separately reported). Faraz Beckham MD, CPE Hematology and Oncology Services Provided at: [place], [place] CC: Cruzito Mcgrath MD ([facility]) [address] [facility] [address] documented in this encounter [facility] 06-27-2022 Instructions Faraz Beckham MD - 06/27/2022 5:37 PM EST Keep prior documented in this encounter [facility] 06-27-2022 History of Present illness Narrative Images from the original note were not included. NAME: Ila Morejon CLINIC NO.: [id number] DATE OF SERVICE: June 27, 2022 (jd) Some elements in this clinic note that are critical to medical decision making have been carefully reviewed and included from a prior clinic note dated: June 21, 2022 (Bhavani) Referring Provider: Cruzito Mcgrath Additional Clinicians involved [...] CPE Hematology and Oncology Services Provided at: [place], [place] CC: Cruzito Mcgrath MD ([facility]) [address] [facility] [address] documented in this encounter [facility] 06-27-2022 Nurse Note Clinical questionnaires incomplete due to phone call. Miryam Gunter MA documented in this encounter [facility] 06-21-2022 Instructions Faraz Beckham MD - 06/21/2022 3:40 PM EST Phone call next week with results RTC in 6 months with labs same day. documented in this encounter [facility] 06-21-2022 History of Present illness Narrative Images from the original note were not included. NAME: Ila Morejon [facility] NO.: [id number] DATE OF SERVICE: June 21, 2022 Referring [...] which included preparing to see the patient, jdfa-gh-hdsj patient care, completing clinical documentation, obtaining and/or reviewing separately obtained history, performing a medically appropriate examination, counseling and educating the patient/family/caregiver, ordering medications, tests, or procedures, and independently interpreting results (not separately reported). Faraz Beckham MD, CPE Hematology and Oncology Services Provided at: [place], [place] CC: Cruzito Mcgrath MD ([facility]) [address] [facility] [address] documented in this encounter [facility] Evaluation note No assessment inform ation available [facility] Evaluation note Diagnosis Lymphocytosis- Primary Lymphocytosis (symptomatic) [facility] Diagnosis CLL (chronic lymphocytic leukemia) (HCC)- Primary Chronic lymphoid leukemia, without mention of having achieved remission Large granular lymphocytosis Lymphocytosis (symptomatic) [facility] Diagnosis CLL (chronic lymphocytic leukemia) (HCC)- Primary Chronic lymphoid leukemia, without mention of having achieved remission Large granular lymphocytosis Lymphocytosis (symptomatic) Stage 3 chronic kidney disease, unspecified whether stage 3a or 3b CKD (HCC) Type 2 diabetes mellitus 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, 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 ([facility]) [facility] Diagnosis Bradycardia- Primary Other specified cardiac dysrhythmias [facility] Diagnosis History of coronary angioplasty with insertion of stent- Primary Pulmonary hypertension [facility]) Other chronic pulmonary heart diseases Primary hypertension Unspecified essential hypertension Hx of hyperlipidemia Sinus pause [facility] Diagnosis Coronary artery disease involving yocha dehe coronary artery of yocha dehe heart without angina pectoris- Primary Sinus pause Hypertension, unspecified type NSTEMI (non-ST elevated myocardial infarction) ([facility]) Acute myocardial infarction, subendocardial infarction, episode of care unspecified [facility] Diagnosis CLL (chronic lymphocytic leukemia) (HCC)- Primary Chronic lymphoid leukemia, without mention of having achieved remission Large granular lymphocytosis Lymphocytosis (symptomatic) Stage 3 chronic kidney disease, unspecified whether stage 3a or 3b CKD (HCC) [facility]* Diagnosis Onset Date Resolution Status PAD (peripheral artery disease) [facility] Work Phone: InstructionsNot on filedocumented in this encounter [facility] filedocumented in this [facility] filedocumented in this encounter [facility] filedocumented in this encounter [facility] on filedocumented in this encounter [facility] (narrative)* Consultation (Routine) - Pending Review Specialty Diagnoses / Procedures Referred By Lynne paniagua Referred To Contact Cardiology Diagnoses Sinus pause Debbie Gonzalez MD [address] [place] [address] Jerry An MD [address] [place] [address] [address] Referral ID Status Reason Start Date Expiration Date Visits Requested Visits Authorized [id number] Pending Review Specialty Services Required 08/27/2023 08/26/2024 [facility] Consultation (Routine) - Pending Review Specialty Diagnoses / Procedures Referred By Lynne paniagua Referred To Contact Cardiac Rehabilitation Diagnoses S/P drug eluting coronary stent placement Procedures [facility] - [place], [place] Tayler Corey MD [address] [place] [address] [facility] Cardiac Rehab Billing [address] [place] [address] Referral ID Status Reason Start Date Expiration Date V isits Requested Visits Authorized [id number] Pending Review 04/07/2023 04/06/2024 36 36 [facility] Chief Complaint and Reason for Visit Chief Complaint Z01.818 I70.213 Chief Complaint Unknown Chief Complaint Refer Dr Mcgrath: PV D, bilat carotid stenosis I70.213 Reason for Visit PAD (peripheral daiana ry disease) Advance Directives No Advanced Directives Records Found Advance Directive Response Recorded Date/ Time Advance Directives No January 01 4:38pm Documents on File Type Date Recorded 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 Durable Power of Grief Counsellor 04/14/2023 3:27 PM Living Will 04/14/2023 3:19 PM Latest Code Status on File Code Status Date Activated Date Inactivated Comments Full Code 04/05/2023 2:40 PM 04/08/2023 6:56 PM Documents on File Type Date Recorded 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 Durable Power of Grief Counsellor 04/14/2023 3:27 PM Living Will 04/14/2023 3:19 PM Latest Code Status on File Code Status Date Activated Date Inactivated Comments Full Code 04/05/2023 2:40 PM 04/08/2023 6:56 PM Summary Purpose Family History No Family History Records Found Relationship Condition Age at Onset Recorded Date/T carli Not Specified No pertinent family history Unknown father Unknown Not Specified Unknown Relationship Condition Age at Onset Recorded Date/T carli Not Specified No pertinent family history Unknown father Unknown mother Unknown Reason for Referral Specialty Diagnoses / Procedures Referred By Contac t Referred To Contact Diagnoses Bradycardia Procedures Holter monitor 24-48 hour Wayne Donald MD [address] [place] [address] Referral ID Status Reason Start Date Expiration Date V isits Requested Visits Authorized [id number] Pending Review 08/04/2023 08/03/2024 1 1 Additional Source Comments Goals (unrecognized section and content) Goals may be documented in a n alternate sectionGoals may be documented in an alternate sectionGoals may be documented in an alternate section (unrecognized sect ion and content) No Status Records FoundNo Status Records FoundNo Status Records FoundNo Status Records FoundNo Status Records FoundNo Status Records FoundNo Status Records Found INFORMATION SOURCE (unrecogn ized section and content) DATE CREATED AUTHOR 06/10/2022 [facility] DATE CREATED AUTHOR AUTHOR'S ORGANIZ ATION 09/05/2023 [facility] DATE CREATED AUTHOR AUTHOR'S ORGANIZ ATION 01/18/2024 [facility] DATE CREATED AUTHOR AUTHOR'S ORGANIZ ATION 03/07/2024 [facility] DATE CREATED AUTHOR AUTHOR'S ORGANIZ ATION 03/10/[address] [facility] dical [facility] DATE CREATED AUTHOR AUTHOR'S ORGANIZ ATION 04/09/2024 [facility] DATE CREATED AUTHOR AUTHOR'S ORGANIZ ATION 04/13/2024 [facility] Source Comments (unrecognize d section and content) In the event this informatio n is protected by the Federal Confidentiality of Alcohol and Drug Abuse Patient Records regulations: The Federal rules restrict any use of the information to criminally investigate or prosecute any alcohol or drug abuse patient.[facility] Hospital[facility] the event this information is protected by the Federal Confidentiality of Alcohol and Drug Abuse Patient Records regulations: The Federal rules restrict any use of the information to criminally investigate or prosecute any alcohol or drug abuse patient.[facility] Hospital[facility] the event this information is protected by the Federal Confidentiality of Alcohol and Drug Abuse Patient Records regulations: The Federal rules restrict any use of the information to criminally investigate or prosecute any alcohol or drug abuse patient.[facility] HospitalIn the event this information is protected by the Federal Confidentiality of Alcohol and Drug Abuse Patient Records regulations: The Federal rules restrict any use of the information to criminally investigate or prosecute any alcohol or drug abuse patient.[facility] Hospital[facility] the event this information is protected by the Federal Confidentiality of Alcohol and Drug Abuse Patient Records regulations: The Federal rules restrict any use of the information to criminally investigate or prosecute any alcohol or drug abuse patient.[facility] Reason for Visit (unrecogniz ed section and content) Reason Comments leukocytosis Reason Comments Established Patient Reason Comments CLL Reason Comments Follow-up OV F/U 1 MO BRADYCAR FUNMILAYO, HM DONE PER LLD SCHED W/PT Reason Comments New Patient ov (consult) per MS sinus pause states needs ppm imp - per sonam formerly [facility] with ep myles while ep md in office - shlomo w pt Specialty Diagnoses / Procedures Referred By Contac t Referred To Contact Cardiology Diagnoses Sinus pause Debbie Gonzalez MD [address] [place] [address] Jerry An MD [address] [place] [address] Referral ID Status Reason Start Date Expiration Date Visits Requested Visits Authorized [id number] Pending Review Specialty Services Required 08/27/2023 08/26/2024 1 1 Reason Comments Leukemia Care Teams (unrecognized sec tion and content) Vendor Management Consultant Relationship Specialty Start Date End Date Cruzito Mcgrath [address] [place] [address] PCP - General Family Medicine 06/21/22 Vendor Management Consultant Relationship Specialty Start Date End Date Cruzito Mcgrath Yuriy [address] [place] [address] PCP - General Family Medicine 06/21/22 Vendor Management Consultant Relationship Specialty Start Date End Date Cruzito Mcgrath [address] [place] [address] PCP - General Family Medicine 06/21/22 Vendor Management Consultant Relationship Specialty Start Date End Date Cruzito Mcgrath MD [address] [facility] [place] PCP - General Family Medicine 04/19/21 Vendor Management Consultant Relationship Specialty Start Date End Date Cruzito Mcgrath MD [address] [facility] [facility] [address] PCP - General Family Medicine 04/19/21 Vendor Management Consultant Relationship Specialty Start Date End Date Cruzito Mcgrath MD [address] [facility] [address] PCP - General Family Medicine 04/19/21 Vendor Management Consultant Relationship Specialty Start Date End Date Cruzito Mcgrath MD [address] [facility] [facility] [address] PCP - General Family Medicine 04/19/21 Vendor Management Consultant Relationship Specialty Start Date End Date Cruzito Mcgrath MD [address] [facility] [address] PCP - General Family Medicine 04/19/21 Vendor Management Consultant Relationship Specialty Start Date End Date Cruzito Mcgrath MD [address] [place] [facility] [place] [address] PCP - General Family Medicine 04/19/21 Vendor Management Consultant Relationship Specialty Start Date End Date Cruzito Mcgrath MD [address] [place] [facility] [place] [address] PCP - General Family Medicine 04/19/21 Vendor Management Consultant Relationship Specialty Start Date End Date Cruzito Mcgrath MD [address] [place] [facility] [place] [address] PCP - General Family Medicine 04/19/21 Vendor Management Consultant Relationship Specialty Start Date End Date Cruzito Mcgrath MD [address] [place] [facility] [place] [address] PCP - General Family Medicine 04/19/21 Vendor Management Consultant Relationship Specialty Start Date End Date Cruzito Mcgrath MD [address] [place] [facility] [place] [address] PCP - General Family Medicine 04/19/21 Vendor Management Consultant Relationship Specialty Start Date End Date Cruzito Mcgrath MD [address] [place] [facility] [place] [address] PCP - General Family Medicine 04/19/21 Vendor Management Consultant Relationship Specialty Start Date End Date Cruzito Mcgrath MD [address] [place] [facility] [place] [address] PCP - General Family Medicine 04/19/21 Vendor Management Consultant Relationship Specialty Start Date End Date Cruzito Mcgrath MD [address] [place] [facility] [place] [address] PCP - General Family Medicine 04/19/21 Team Status: Inactive Member Role Status Dates Arminda Valverde DO Attending Provider Active Sta rt: December 27, 2023 End: December 27, 2023 Vendor Management Consultant Relationship Specialty Start Date End Date Cruzito Mcgrath [address] [place] [address] PCP - General Family Medicine 06/21/22 Team Status: Active Member Role Status Dates Cruzito Mcgrath MD Primary Care Provider Active Team Status: Inactive Member Role Status Dates Luiz Glass MD Attending Provider Active Start: March 18, 2024 End: March 18, 2024 Cruzito Mcgrath MD Primary Care Provide r, Referring Provider Active Start: March 18, 2024 End: March 18, 2024 Team Status: Inactive Member Role Status Dates Cruzito Mcgrath MD Primary Care Provider Active S tart: April 07, 2024 End: April 07, 2024 Luiz Glass MD Attending Provider Active Start: April 07, 2024 End: April 07, 2024 FOR RECORDS PERTAINING TO PATIENTS WHO ARE [...] BE BASED ON THE PRIMARY CLINICAL RECORDS. [facility] [employer] [facility]. provides no warranty or guarantee of the accuracy or completeness of information in this document.
== END 2024-04-19 09:20 | disposition home or self-care (01) ==
LOC: CARD 09:20
PROVIDERS: PCP Family Medicine; Visit Provider Internal Medicine Interventional Cardiology
DX: R00.1 Bradycardia, unspecified (principal); R94.31 Abnormal electrocardiogram [ECG] [EKG]
CPT/HCPCS: 93017

== ENCOUNTER 2024-05-05 10:32 | Outpatient (OUT) | payer MEDICARE, SELFPAY ==
--- OUTSIDE RECORDS SUMMARY | 2024-05-05 10:38 | XMS_ITS | CCD ---
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 Name Role Phone Cruzito Mcgrath Primary Care Provider [phone] Luiz Glass Attending Provider [phone] ALCIDES, DR CRUZITO Yan Admitting Unavailable NADERER, DR CRUZITO Yan Attending Unavailable NADERER, DR CRUZITO Yan Primary Care Unavailable NADERER, DR CRUZITO Yan Consulting Unavailable NADERER, DR CRUZITO Yan Admitting Unavailable NADERER, DR CRUZITO Yan Attending Unavailable NADERER, DR CRUZITO Yan Primary Care Unavailable NADERER, DR CRUZITO Yan Consulting Unavailable Unavailable Primary Care Provider Unavaileleonora e Cruzito Mcgrath Primary Care Provider Cruzito Mcgrath MD Primary Care Provider DO Arminda Valverde Attending Provider Cruzito Mcgrath Primary Care Provider ABHYKENROY, FARAZ Attending Unavailable NADERER, CRUZITO Yan Primary Care Unavailable ABHYANKAR, FARAZ Referring Unavailable NADERER, CRUZITO Yan Primary Care Unavailable ABHYANKAR, FARAZ Referring Unavailable NADERER, CRUZITO Yan Primary Care Unavailable ABHYANKAR, FARAZ Referring Unavailable ABHYANKAR, FARAZ Attending Unavailable NADERER, CRUZITO Yan Primary Care Unavailable ABHYANKAR, FARAZ Referring Unavailable NADERER, CRUZITO Attending Unavailable NADERER, CRUZITO Attending Unavailable NADERER, CRUZITO Attending Unavailable PETBRAD ALTAMIRANO Attending Unavailable NADERER, CRUZITO Attending Unavailable NADERER, CRUZITO Attending Unavailable TIMMIJEROMY Pete Attending Unavailable ALCIDES, CRUZITO Referring Unavailable EMELY CHRISTIAN Attending Unavailable MD Cruzito Mcgrath Primary Care Provider MD Luiz Glass Attending Provider SABINA SHELDON Attending Unavailable Arminda Valverde Admitting Unavailable Arminda Valverde Attending Unavailable Naderer, Cruzito Primary Care Unavailable Luiz Glass Admitting Unavailabl e Langenberg, Luiz T Attending Unavailabl e Naderer, Cruzito Primary Care Unavailable Langcary, Luiz T Admitting Unavailabl e Langenberg, Luiz T Attending Unavailabl e TAYLER COREY Referring Unavailabl e NADERER, CRUZITO Primary Care Unavailable TAYLER COREY Referring Unavailabl e NADERER, CRUZITO Primary Care Unavailable TAYLER COREY Referring Unavailabl e NADERER, CRUZITO Primary Care Unavailable TAYLER COREY Referring Unavailabl e NADERER, CRUZITO Primary Care Unavailable NADERER, CRUZITO Referring Unavailable NADERER, CRUZITO Primary Care Unavailable TAYLER COREY Referring Unavailabl e NADERER, CRUZITO Primary Care Unavailable TAYLER COREY Referring Unavailabl e NADERER, CRUZITO Primary Care Unavailable TAYLER COREY Referring Unavailabl e NADERER, CRUZITO Primary Care Unavailable TAYLER COREY Referring Unavailabl e NADERER, CRUZITO Primary Care Unavailable WAYNE DONALD Attending Unavailable WAYNE DONALD Referring Unavailable NADERER, CRUZITO Primary Care Unavailable JUDAH COSTELLO Attending Unavailable JUDAH COSTELLO Referring Unavailable NADERER, CRUZITO Primary Care Unavailable NADERER, CRUZITO Primary Care Unavailable MSITRY, DANIEL Attending Unavailable MISTRY, DANIEL Attending Unavailable MISTRY, DANIEL Referring Unavailable NADERER, CRUZITO Primary Care Unavailable TAYLER COREY [...] Unavailabl e NADERER, CRUZITO Primary Care Unavailable LEORA TAYLER Moncada Referring Unavailabl e NADERER, CRUZITO Primary Care Unavailable DEBBIE HIRSCH Attending Unavailable LURDESCRUZITO ROBIN Referring Unavailable SIMONECoral, CRUZITO Primary Care Unavailable LURDESLOBITO, CRUZITO Primary Care Unavailable LORENA HOOKS Attending Unavailable DEBBIE COTTON Consulting Unavailable LUIS VALDES Admitting Unavailable JAYY VIERA Consulting Unavailable Cruzito Mcgrath MD Primary Care Provider [phone] MATILDE HANEY Admitting Unavailable MATILDE HANEY Attending Unavailable NADIYA MASCORRO Referring Unavailable LURDESLOBITO, CRUZITO Primary Care Unavailable DEBBIE COTTON Consulting Unavailable LATASHA HEAD Consulting Unavailable ADAMARIS BARBER Referring Unavailable LURDESLOBITO, CRUZITO Primary Care Unavailable GENEVA SANDERS Attending Unavail able DEBBIE HIRSCH Referring Unavailable SIMONECoral, CRUZITO Primary Care Unavailable Medications Current Medications Medication Drug Class(es) Dates Sig (Normalized) Sig (Original) ascorbic acid 500 mg oral tablet (8 sources) Vitamin C Start: 01-02-2021 take 1 tablet by mouth once daily Ascorbic Acid (Vitamin C) (Vitamin C) 500 mg Tablet Active 500 MG PO Daily January 02, 2021 12:00am Comment on above: Take 500 mg by mouth once daily. aspirin 81 mg delayed release oral tablet (20 sources) Platelet Aggregation Inhibitor, Nonsteroidal Anti-inflammatory Drug Start: 03-18-2024 Aspirin (Adult Low Dose Aspirin) 81 mg tablet,delayed release (DR/EC) Active 81 MG PO Daily March 18, 2024 12:00am Start: 04-09-2023 End: 04-03-2024 aspirin 81 mg chewable table t Take 81 mg by mouth. 0 04/09/2023 04/03/2024 Active Calcium Phos,Dibas-Vitamin D3 (3 sources) Start: 01-02-2021 take 1 tablet by mouth once daily Calcium Phos,Dibas-Vitamin D3 Active 1 TAB PO Daily January 02, 2021 12:00am furosemide 40 mg oral tablet (5 sources) Loop Diuretic furosemide (LASI X) 40 mg tablet Take 40 mg by mouth as needed. 0 Active Comment on above: Take 40 mg by mouth once daily. insulin glargine 100 unt/ml injectable solution (11 sources) Insulin Analog Start: 01-02-2021 End: 03-18-2024 inject 54 [IU] by subcutaneous injection once daily Insulin Glargine (Lantus U-100 Insulin) 100 unit/mL Solution Active 54 UNIT SUBCUT Daily January 02, 2021 12:00am Comment on above: Inject subcutaneousl y as directed. magnesium oxide 400 mg oral tablet (14 [...] mg total) by mouth in the morning. 08/04/2018 Suspended Comment on above: Take 500 mg by mouth daily with breakfast. rosuvastatin calcium 20 mg oral tablet (20 sources) HMG-CoA Reductase Inhibitor Start: 04-08-2023 End: 04-02-2024 Rosuvastatin Active 20 MG PO March 18, 2024 12:00am take 2 tablets by mouth in the m orning rosuvastatin (CRESTOR) 20 mg tablet Take 2 tablets (40 mg total) by mouth in the morning. Suspended ticagrelor 90 mg oral tablet (17 sources) Start: 03-18-2024 Ticagrelor (Br ilinta) 90 mg tablet Active 90 MG PO [...] 2021 12:00am take 1 capsule by mo uth once in the morning coenzyme Q10 100 mg capsule Take 1 capsu le (100 mg total) by mouth in the morning. Suspended coenzyme Q10 (CO ENZYME Q-10) 100 mg cap capsule Take 100 mg by mouth once daily. 0 Active Comment on above: Take 100 mg by mouth once daily. Completed/Discontinued Medications Medication Drug Class(es) Dates Sig (Normalized) Sig (Original) amLODIPine 10 mg oral tablet (20 sources) Dihydropyridine Calcium Channel Veronica Start: 03-18-2024 take 1 tablet by mouth in the morning amLODIPine (NORVASC) 10 mg tablet take 1 tablet by mouth in the morning 90 tablet 1 03/30/2024 Suspended Start: 05-09-2023 take 1 tablet by sierra [...] 5 mg by mouth e very morning. carvedilol 6.25 mg oral tablet (8 sources) alpha-Adrenergic Veronica, beta-Adrenergic Veronica Start: 01-03-20 End: 03-18-20 24 take 6.25 mg by mouth twice daily Carvedilol Discontinued 6.25 MG PO Twice daily January 02, 2021 12:00am March 18, 2024 9:41am Comment on above: Take 6.25 mg by mout h twice daily with meals. cholecalciferol 0.025 mg oral tablet (20 sources) Vitamin D take 2 tablets by mouth in the morning cholecalciferol 1,000 units tablet Take 2 tablets (2,000 Units total) by mouth in the morning. Suspended take 1 capsule by mouth once jaimie ly cholecalciferol, vitamin D3, 10 mcg (400 unit) cap Take 2,000 Units by mouth once daily. 0 Active Comment on above: Take 2,000 Units by mouth once daily. clopidogrel 75 mg oral tablet (12 sources) P2Y12 Platelet Inhibitor Start: End: take 75 mg by mouth once daily Clopidogrel Discontinued 75 MG PO Daily January 02, 2021 12:00am March 18, 2024 9:42am Comment on above: Take 75 mg by mouth once daily. gabapentin 300 mg oral capsule (20 sources) Anti-epileptic Agent Start: take 1 capsule by mouth three times daily gabapentin (NEURONTIN) 300 mg capsule Take 1 capsule (300 mg total) by mouth 3 (three) times a day. 07/22/2023 Suspended Start: 06-09-2023 End: 08-27-2023 take 1 capsule [...] 06/09/2023 Active glipiZIDE 10 mg oral tablet (8 sources) Sulfonylurea Start: 01-02-2021 End: 03-18-2024 take 10 mg by mouth twice daily Glipizide Discontinued 10 MG PO Twice daily January 02, 2021 12:00am March 18, 2024 9:42am Comment on above: Take 10 mg by mouth twice daily before m eals. insulin glargine,hum.re c.anlog (INSULIN GLARGINE SUBQ) (18 sources) inject 54 [IU] by subcutaneous injection once daily insulin glargine,hum.rec.a nlog (INSULIN GLARGINE SUBQ) Inject 54 Units under the skin daily. Lantus Suspended inject 54 [IU] by piper bcutaneous injection once daily insulin glargine,hum.rec.anlog (INSULIN GLARGINE SUBQ) Inject 54 Units under the skin daily. Lantus 0 Active lisinopril 20 mg oral tablet (20 sources) Angiotensin Converting Enzyme Inhibitor Start: 06-17-2023 take 1.5 tablets by mouth in the morning lisinopriL (PRINIVIL,ZESTRIL) 20 mg tablet Take 1.5 tablets (30 mg total) by mouth in the morning. 135 tablet 3 06/17/2023 Suspended Start: 01-02-2021 take 40 mg by mouth once daily Lisinopril Active 40 MG PO Daily January 02, 2021 12:00am take 1 tablet by sierra th once daily lisinopril (ZESTRIL) 30 mg tablet Take 30 mg by mouth once daily. 0 Active Comment on above: Take 40 mg by mouth once daily. djrhxfth-gvha-ST-calcium &mins (THERAGRAN-M) 9 mg iron-400 mcg tablet (6 sources) zktqhptc-fbve-JC -calcium &mins (THERAGRAN-M) 9 mg iron-400 mcg tablet Take 1 tablet by mouth in the morning. Suspended humxnyiw-mjzo-SF -calcium &mins (THERAGRAN-M) 9 mg iron-400 mcg tablet Take 1 tablet by mouth in the morning. 0 Active potassium gluconate 2.5 meq extended release oral tablet (6 sources) take 1 tablet by mouth in the morning potassium gluconate 595 mg (99 mg) tablet extended release Take 1 tablet (595 mg total) by mouth in the morning. Suspended pravastatin sodium 10 mg oral tablet (11 sources) HMG-CoA Reductase Inhibitor Start: End: take 10 mg by mouth once daily Pravastatin Discontinued 10 MG PO Daily January 02, 2021 12:00am January 02, 2021 12:20pm Start: 01-02-2021 End: 03-18-2024 take 20 mg by mouth once daily Pravastatin Discontinue d 20 MG PO Daily 90 January 02, 2021 12:00am March 18, 2024 9:40am Comment on above: Take 20 mg by mouth once daily. Zinc (8 sources) Start: 01-02-2021 End: 03-18-2024 take 1 [...] unspecified] Onset: 03-05-2024 Episodic Acute myocardial infarction (20 sources) Myocardial infarction; Translations: [Non-ST elevation (NSTEMI) myocardial infarction] Onset: 04-05-2023 04-05-2023 Chronic Cardiac dysrhythmias (4 sources) Atrial fibrillation; Translations: [Unspecified atrial fibrillation] Onset: 04-26-2024 04-27-2024 Chronic Chronic kidney disease (6 sources) Chronic kidney disease stage 3; Translations: [Stage 3 chronic kidney disease, unspecified whether stage 3a or 3b CKD ([facility])] Onset: 01-04-2023 Chronic Chronic kidney disease (1 source) Chronic kidney disease; Translations: [Chronic kidney disease, stage 3b] Onset: 04-28-2024 Conduction disorders (6 sources) Sinus node dysfunction; Translations: [Other specified heart block] Onset: 08-27-2023 08-27-2023 Chronic Congestive heart failure; nonhypertensive (5 sources) Heart failure, unspecified; Translations: [Acute on chronic heart failure co-occurrent with normal ejection fraction] Onset: 04-26-2024 04-27-2024 Chronic Coronary atherosclerosis and other heart disease (20 sources) Coronary arteriosclerosis; Translations: [Atherosclerotic heart disease of unga coronary artery without angina pectoris] Onset: 11-12-2022 [...] Onset: 06-06-2022 Chronic Disorders of lipid metabolism (19 sources) Hyperlipidemia, unspecified; Translations: [Mixed hyperlipidemia] Onset: 10-20-2020 11-12-2022 Chronic Essential hypertension (20 sources) Essential (primary) hypertension; Translations: [Hypertensive disorder] Onset: 06-08-2022 11-12-2022 Chronic Fluid and electrolyte disorders (1 source) Dehydration; Translations: [Dehydration] Onset: 03-05-2024 Episodic Hypertension with complications and secondary hypertension (1 source) Hypertensive emergency; Translations: [Hypertensive emergency] Onset: 04-26-2024 Chronic Leukemias (10 sources) Chronic lymphoid leukemia, disease; 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] Onset: 06-27-2022 Chronic Nutritional deficiencies (1 source) Vitamin D deficiency, unspecified; Translations: [VITAMIN D DEFICIENCY UNSPECIFIED] Onset: 06-08-2022 Chronic Occlusion or stenosis of precerebral arteries (19 sources) Bilateral stenosis of carotid arteries; Translations: [Occlusion and stenosis of bilateral carotid arteries] Onset: 10-21-2019 11-12-2022 Chronic Other aftercare (1 source) 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; Translations: [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 USE OF INSULIN] Onset: 06-08-2022 Episodic Other aftercare (1 source) Other intermediate (current) drug therapy; Translations: [OTH PROCESS PUMPER CURRENT DRUG THERAPY] Onset: 06-08-2022 Episodic Other circulatory disease (18 sources) History of angioplasty; Translations: [Peripheral vascular angioplasty status with implants and grafts] Onset: 08-09-2019 11-12-2022 Chronic Other circulatory disease (1 source) Abnormal peripheral pulse; Translations: [Other specified symptoms and signs involving the circulatory and respiratory systems] 04-14-2024 Episodic Other circulatory disease (1 source) Other specified symptoms and signs involving the circulatory and respiratory systems; Translations: [Other symptoms involving cardiovascular system] 04-14-2024 Episodic Other connective tissue disease (1 source) Trochanteric bursitis; Translations: [Trochanteric bursitis, right hip] 04-13-2024 Episodic Other connective tissue disease (1 source) Pain in left lower limb; Translations: [Pain in left leg] 04-14-2024 Episodic Other connective tissue disease (1 source) Trochanteric bursitis, right hip; Translations: [Enthesopathy of hip region] 04-13-2024 Episodic Other connective tissue disease (1 source) Pain in left leg; Translations: [Pain in limb] 04-14-2024 Episodic Other lower respiratory disease (1 source) Acute pulmonary edema; Translations: [Acute pulmonary edema] Onset: 04-26-2024 Episodic Other lower respiratory disease (1 source) Shortness of breath; Translations: [Shortness of breath] Onset: 04-26-2024 Episodic Other lower respiratory disease (1 source) Shortness of breath Onset: 04-26-2024 Episodic Other nutritional; endocrine; and metabolic disorders (1 source) H/O: raised blood lipids; Translations: [Personal history of other endocrine, nutritional and metabolic disease] 08-26-2023 Episodic Other screening for suspected conditions (not mental disorders or infectious disease) (19 sources) Encounter for screening for malignant neoplasm of prostate; Translations: [Abnormal results of cardiovascular function studies] Onset: 06-08-2022 08-05-2018 Episodic Peripheral and visceral atherosclerosis (20 sources) Peripheral vascular disease, unspecified; Translations: [Peripheral vascular disease, unspecified] Onset: 10-21-2019 11-12-2022 Chronic Pulmonary heart disease (2 sources) Pulmonary hypertension; Translations: [Pulmonary hypertension, unspecified] Onset: 08-27-2023 08-26-2023 Chronic Respiratory failure; insufficiency; arrest (adult) (6 sources) Acute respiratory failure with hypoxia; Translations: [Acute respiratory failure with hypercapnia] Onset: 04-26-2024 04-26-2024 Episodic Screening and history of mental health and substance abuse codes (2 sources) Ex-smoker; Translations: [Personal history of nicotine dependence] 04-14-2024 Episodic Spondylosis; intervertebral disc disorders; other back problems (2 sources) Lumbar spondylosis; Translations: [Spondylosis without myelopathy or radiculopathy, lumbar region] 04-13-2024 Chronic Syncope (1 source) Syncope and collapse; Translations: [Syncope and collapse] Onset: 03-05-2024 Episodic Unclassified (1 source) Weakness - Generalized Onset: 03-05-2024 Unclassified (1 source) EMS Onset: 03-05-2024 Unclassified (1 source) New Patient Onset: 09-03-2023 Past or Other Problems Problem Classification Problem Date Documented Da te Episodic/Chronic Cardiac dysrhythmias (20 sources) Bradycardia, unspecified; Translations: [Other specified cardiac dysrhythmias] Onset: 11-12-2022 11-12-2022 Episodic Coronary atherosclerosis and other heart disease (1 source) Presence of coronary angioplasty implant and graft; Translations: [Presence of coronary angioplasty implant and graft] Onset: 07-17-2023 Episodic Mood disorders (18 sources) Mood disorders Onset: 04-05-2023 Resolved: 04-27-2024 04-05-2023 Other nutritional; endocrine; and metabolic disorders (1 source) Personal history of other endocrine, nutritional and metabolic disease; Translations: [Personal history of other endocrine, nutritional and metabolic disease] Onset: 08-27-2023 Episodic Results Test Name Value Interpretation Reference Range Facility CBC AND AUTO DIFFon 04-29-20 ABSOLUTE BASOPHIL 0.1 X10E9/L Normal 0.0-0.2 [facility] Comment on above: Performed By: #### 2 157-6, C34, 96225-1, SPE, 93735-6, 5130-0, 06306-0, 6969-0, 6968-2 #### [facility] ([id number]) [address], [address] [place] [address] ABSOLUTE NEUTROPHIL 7.4 X10E9/L High 1.5-6.6 [facility] Comment on above: Performed By: #### 2 157-6, C34, 02634-3, SPE, 63905-4, 5130-0, 47578-1, 6969-0, 6968-2 #### [facility] ([id number]) [address], [address] [place] [address] Basophils/100 WBC (Bld) 0.6 % Normal [facility] Comment on above: Performed By: #### 2 157-6, C34, 41011-9, SPE, 79138-1, 5130-0, 11565-7, 6969-0, 6968-2 #### [facility] ([id number]) [address], [address] [place] [address] Eosinophils (Bld) [#/Vol] 0.4 10*3/uL Normal 0.0-0.4 [facility] Comment on above: Performed By: #### 2 157-6, C34, 38592-8, SPE, 55262-2, 5130-0, 26887-8, 6969-0, 6968-2 #### [facility] ([id number]) [address], [address] [place] [address] Eosinophils/100 WBC (Bld) 2.2 % Normal [facility] Comment on above: Performed By: #### 2 157-6, C34, 34220-9, SPE, 25808-1, 5130-0, 10130-1, 6969-0, 6968-2 #### [facility] ([id number]) [address], [facility] [address] [place] [address] Erythrocyte distribution width (RBC) [Ratio] 13.5 % Normal 11.5-15.0 [facility] Comment on above: Performed By: #### 2 157-6, C34, 45611-1, SPE, 95504-6, 5130-0, 65327-0, 6969-0, 6968-2 #### [facility] ([id number]) [address], [facility] [address] [place] [address] Hematocrit (Bld) [Volume fraction] 35.8 % Low 39-49 [facility] Comment on above: Performed By: #### 2 157-6, C34, 49706-2, SPE, 86049-1, 5130-0, 07111-7, 6969-0, 6968-2 #### [facility] ([id number]) [address] [address] [place] [address] Hemoglobin (Bld) [Mass/Vol] 12.5 g/dL Low 13.0-17.0 [facility] Comment on above: Performed By: #### 2 157-6, C34, 15437-9, SPE, 74954-1, 5130-0, 08026-4, 6969-0, 6968-2 #### [facility] ([id number]) [address], [address] [place] [address] Lymphocytes (Bld) [#/Vol] 9.7 10*3/uL High 1.0-3.5 [facility] Comment on above: Performed By: #### 2 157-6, C34, 84249-5, SPE, 62571-4, 5130-0, 69265-4, 6969-0, 6968-2 #### [facility] ([id number]) [address], [address] [place] [address] Lymphocytes/100 WBC (Bld) 53.3 % Normal [facility] Comment on above: Performed By: #### 2 157-6, C34, 46555-5, SPE, 88068-9, 5130-0, 28108-3, 6969-0, 6968-2 #### [facility] ([id number]) [address], [address] [place] [address] MCH (RBC) [Entitic mass] 31.1 pg Normal 27-34 [facility] Comment on above: Performed By: #### 2 157-6, C34, 30832-0, SPE, 04130-0, 5130-0, 52765-2, 6969-0, 6968-2 #### [facility] ([id number]) [address], [address] [place] [address] MCHC (RBC) [Mass/Vol] 34.8 g/dL Normal 32-36 [facility] Comment on above: Performed By: #### 2 157-6, C34, 93072-0, SPE, 16762-1, 5130-0, 24845-7, 6969-0, 6968-2 #### [facility] ([id number]) [address], [address] [place] [address] MCV (RBC) [Entitic vol] 89 fL Normal 80-100 [facility] Comment on above: Performed By: #### 2 157-6, C34, 71715-5, SPE, 58630-6, 5130-0, 28332-0, 6969-0, 6968-2 #### [facility] ([id number]) [address], [address] [place] [address] Monocytes (Bld) [#/Vol] 0.6 10*3/uL Normal 0-0.9 [facility] Comment on above: Performed By: #### 2 157-6, C34, 92174-2, SPE, 57307-2, 5130-0, 57127-2, 6969-0, 6968-2 #### [facility] ([id number]) [address], [address] [place] [address] Monocytes/100 WBC (Bld) 3.4 % Normal [facility] Comment on above: Performed By: #### 2 157-6, C34, 39004-7, SPE, 27032-6, 5130-0, 04186-7, 6969-0, 6968-2 #### [facility] ([id number]) [address], [address] [place] [address] Neutrophils/100 WBC (Bld) 40.5 % Normal [facility] Comment on above: Performed By: #### 2 157-6, C34, 12772-2, SPE, 31586-4, 5130-0, 81371-6, 6969-0, 6968-2 #### [facility] ([id number]) [address], [address] [place] [address] OVALOCYTE 1+ Abnormal NONE [facility] Comment on above: Performed By: #### 2 157-6, C34, 37758-8, SPE, 12733-0, 5130-0, 63997-8, 6969-0, 6968-2 #### [facility] ([id number]) [address], [address] [place] [address] Platelet mean volume (Bld) [Entitic vol] 8.8 fL Normal 7-12 [facility] Comment on above: Performed By: #### 2 157-6, C34, 58064-0, SPE, 92167-2, 5130-0, 23032-7, 6969-0, 6968-2 #### [facility] ([id number]) [address], [address] [place] [address] Platelets (Bld) [#/Vol] 199 10*3/uL Normal 150-450 [facility] Comment on above: Performed By: #### 2 157-6, C34, 79948-1, SPE, 51413-6, 5130-0, 50954-8, 6969-0, 6968-2 #### [facility] ([id number]) [address], [address] [place] [address] RBC COUNT 4.02 X10E12/L Low 4.10-5.70 [facility] Comment on above: Performed By: #### 2 157-6, C34, 73681-8, SPE, 31093-8, 5130-0, 86506-5, 6969-0, 6968-2 #### [facility] ([id number]) [address], [address] [place] [address] SMUDGE CELLS 1+ Abnormal NONE [facility] Comment on above: Performed By: #### 2 157-6, C34, 03365-4, SPE, 50115-8, 5130-0, 14530-3, 6969-0, 6968-2 #### [facility] ([id number]) [address], [address] [place] [address] WBC (Bld) [#/Vol] 18.2 10*3/uL High 4.0-11.0 [facility] Comment on above: Performed By: #### 2 157-6, C34, 60465-6, SPE, 91357-8, 5130-0, 37201-1, 6969-0, 6968-2 #### [facility] ([id number]) [address], [address] [place] [address] COMPREHENSIVE METABOLIC PANE [facility] 04-29-2024 Albumin [Mass/Vol] 3.1 g/dL Low 3.2-5.3 [facility] Comment on above: Performed By: #### 2 157-6, C34, 37014-7, SPE, 20198-3, 5130-0, 57055-1, 6969-0, 6968-2 #### [facility] ([id number]) [address], [address] [place] [address] ALP [Catalytic activity/Vol] 89 U/L Normal 39-130 [facility] Comment on above: Performed By: #### 2 157-6, C34, 64603-7, SPE, 36720-9, 5130-0, 07891-9, 6969-0, 6968-2 #### [facility] ([id number]) [address] [address] [place] [address] ALT [Catalytic activity/Vol] 25 U/L Normal 0-40 [facility] Comment on above: Performed By: #### 2 157-6, C34, 20858-2, SPE, 35733-6, 5130-0, 70597-0, 6969-0, 6968-2 #### [facility] ([id number]) [address] [place] [address] Anion gap [Moles/Vol] 7 mmol/L Normal 5-15 [facility] Comment on above: Performed By: #### 2 157-6, C34, 19939-8, SPE, 59582-1, 5130-0, 78786-3, 6969-0, 6968-2 #### [facility] ([id number]) [address] [place] [address] AST [Catalytic activity/Vol] 15 U/L Normal 0-41 [facility] Comment on above: Performed By: #### 2 157-6, C34, 96255-6, SPE, 86217-7, 5130-0, 80421-3, 6969-0, 6968-2 #### [facility] ([id number]) [address] [place] [address] Bilirubin [Mass/Vol] 0.6 mg/dL Normal 0.3-1.2 [facility] Comment on above: Performed By: #### 2 157-6, C34, 22532-8, SPE, 71814-5, 5130-0, 07164-3, 6969-0, 6968-2 #### [facility] ([id number]) [address] [place] [address] Calcium [Mass/Vol] 8.7 mg/dL Normal 8.5-10.5 [facility] Comment on above: Performed By: #### 2 157-6, C34, 50539-0, SPE, 97231-5, 5130-0, 01148-7, 6969-0, 6968-2 #### [facility] ([id number]) [address] [place] [address] Chloride [Moles/Vol] 107 mmol/L Normal 98-109 [facility] Comment on above: Performed By: #### 2 157-6, C34, 16541-4, SPE, 82142-7, 5130-0, 53522-5, 6969-0, 6968-2 #### [facility] ([id number]) [address] [place] [address] CO2 [Moles/Vol] 27 mmol/L Normal 22-32 [facility] Comment on above: Performed By: #### 2 157-6, C34, 25434-7, SPE, 04269-9, 5130-0, 37925-0, 6969-0, 6968-2 #### [facility] ([id number]) [address] [place] [address] Creatinine [Mass/Vol] 1.15 mg/dL Normal 0.60-1.30 [facility] Comment on above: Result Comment: METH OD TRACEABLE TO IDMS STANDARD Performed By: #### 2 157-6, C34, 41286-3, SPE, 18766-2, 5130-0, 29624-5, 6969-0, 6968-2 #### [facility] ([id number]) [address] [place] [address] GFR/1.73 sq M.predicted among non-blacks MDRD (S/P/Bld) [Vol rate/Area] 66 mL/min/{1.73_m2} Normal >59 [facility] Comment on above: Result Comment: Reported eGFR is based on the CKD-EPI 2020 equation that does not use a race coefficient. Performed By: #### 2 157-6, C34, 24944-7, SPE, 92451-3, 5130-0, 60505-7, 6969-0, 6968-2 #### [facility] ([id number]) [address] [place] [address] Glucose [Mass/Vol] 102 mg/dL High 65-99 [facility] Comment on above: Performed By: #### 2 157-6, C34, 86962-0, SPE, 04157-4, 5130-0, 11637-8, 6969-0, 6968-2 #### [facility] ([id number]) [address] [place] [address] Potassium [Moles/Vol] 4.4 mmol/L Normal 3.5-5.0 [facility] Comment on above: Performed By: #### 2 157-6, C34, 78311-2, SPE, 54252-8, 5130-0, 77964-3, 6969-0, 6968-2 #### [facility] ([id number]) [address] [place] [address] Protein [Mass/Vol] 5.6 g/dL Low 6.0-8.0 [facility] Comment on above: Performed By: #### 2 157-6, C34, 03794-3, SPE, 03126-9, 5130-0, 58865-8, 6969-0, 6968-2 #### [facility] ([id number]) [address] [place] [address] Sodium [Moles/Vol] 141 mmol/L Normal 134-146 [facility] Comment on above: Performed By: #### 2 157-6, C34, 85905-8, SPE, 96528-7, 5130-0, 14467-9, 6969-0, 6968-2 #### [facility] ([id number]) [address] [place] [address] Urea nitrogen [Mass/Vol] 22 mg/dL Normal 5-27 [facility] Comment on above: Performed By: #### 2 157-6, C34, 38225-0, SPE, 58369-2, 5130-0, 39889-4, 6969-0, 6968-2 #### [facility] ([id number]) [address] [place] [address] Glucose Glucometer (BldC) [M ass/Vol]on 04-29-2024 Glucose [Mass/Vol] 240 mg/dL High 65-99 [facility] Glucose [Mass/Vol] 233 mg/dL High 65-99 [facility] Glucose [Mass/Vol] 107 mg/dL High 65-99 [facility] Heparin unfractionated Chrom ogenic method Qn (PPP)on 04-29-2024 ANTI XA UFH 0.30 IU/mL Normal 0.30-0.70 [facility] Comment on above: Result Comment: Opti mal time for testing is 6 hrs post dosage This test is specific for monitoring patients on UFH, and is not recommended for use with other Anti-Xa medications. Performed By: #### 2 157-6, C34, 80816-8, SPE, 97999-0, 5130-0, 32768-3, 6969-0, 6968-2 #### [facility] ([id number]) [address] [place] [address] MAGNESIUMon 04-29-2024 Magnesium [Mass/Vol] 1.7 mg/dL Low 1.8-2.6 [facility] Comment on above: Performed By: #### 2 157-6, C34, 70049-4, SPE, 84732-7, 5130-0, 65689-5, 6969-0, 6968-2 #### [facility] ([id number]) [address] [place] [address] ACT Diatomaceous earth induc ed (Bld)on 04-28-2024 [facility] CLOT TIME LR 290 sec High 89-169 [facility] Comment on above: Performed By: #### 2 157-6, C34, 36807-2, SPE, 12846-8, 5130-0, 24942-1, 6969-0, 6968-2 #### [facility] ([id number]) [address] [place] [address] HMCHRN CLOT TIME LR >400 High 89-169 [facility] Comment on above: Performed By: #### 2 157-6, C34, 54188-9, SPE, 17050-1, 5130-0, 86887-1, 6969-0, 6968-2 #### [facility] ([id number]) [address] [place] [address] CBC AND AUTO DIFFon 04-28-20 Erythrocyte distribution width (RBC) [Ratio] 13.7 % Normal 11.5-15.0 [facility] Comment on above: Performed By: #### 2 157-6, C34, 28462-9, SPE, 97716-1, 5130-0, 13752-0, 6969-0, 6968-2 #### [facility] ([id number]) [address] [place] [address] Hematocrit (Bld) [Volume fraction] 35.5 % Low 39-49 [facility] Comment on above: Performed By: #### 2 157-6, C34, 09637-0, SPE, 91486-8, 5130-0, 15441-8, 6969-0, 6968-2 #### [facility] ([id number]) [address] [place] [address] Hemoglobin (Bld) [Mass/Vol] 12.1 g/dL Low 13.0-17.0 [facility] Comment on above: Performed By: #### 2 157-6, C34, 55000-9, SPE, 08964-2, 5130-0, 93275-8, 6969-0, 6968-2 #### [facility] ([id number]) [address] [place] [address] Lymphocytes (Bld) [#/Vol] 14.4 10*3/uL High 1.0-3.5 [facility] Comment on above: Performed By: #### 2 157-6, C34, 31861-5, SPE, 61845-2, 5130-0, 81241-2, 6969-0, 6968-2 #### [facility] ([id number]) [address] [place] [address] Lymphocytes/100 WBC (Bld) 69.0 % Normal [facility] Comment on above: Performed By: #### 2 157-6, C34, 74543-6, SPE, 53662-3, 5130-0, 48496-4, 6969-0, 6968-2 #### [facility] ([id number]) [address] [place] [address] MCH (RBC) [Entitic mass] 31.1 pg Normal 27-34 [facility] Comment on above: Performed By: #### 2 157-6, C34, 43704-3, SPE, 62957-3, 5130-0, 40231-3, 6969-0, 6968-2 #### [facility] ([id number]) [address] [place] [address] MCHC (RBC) [Mass/Vol] 34.2 g/dL Normal 32-36 [facility] Comment on above: Performed By: #### 2 157-6, C34, 97655-9, SPE, 60198-3, 5130-0, 60349-4, 6969-0, 6968-2 #### [facility] ([id number]) [address] [place] [address] MCV (RBC) [Entitic vol] 91 fL Normal 80-100 [facility] Comment on above: Performed By: #### 2 157-6, C34, 18883-5, SPE, 75361-7, 5130-0, 44847-8, 6969-0, 6968-2 #### [facility] ([id number]) [address] [place] [address] Monocytes (Bld) [#/Vol] 0.4 10*3/uL Normal 0-0.9 [facility] Comment on above: Performed By: #### 2 157-6, C34, 16560-6, SPE, 73885-1, 5130-0, 09629-0, 6969-0, 6968-2 #### [facility] ([id number]) [address] [place] [address] Monocytes/100 WBC (Bld) 2.0 % Normal [facility] Comment on above: Performed By: #### 2 157-6, C34, 44278-3, SPE, 35632-3, 5130-0, 51029-4, 6969-0, 6968-2 #### [facility] ([id number]) [address] [place] [address] MYELOCYTE 1.0 % Normal [facility] Comment on above: Performed By: #### 2 157-6, C34, 13972-9, SPE, 75514-8, 5130-0, 18255-7, 6969-0, 6968-2 #### [facility] ([id number]) [address] [place] [address] Neutrophils (Bld) [#/Vol] 5.9 10*3/uL Normal 1.5-6.6 [facility] Comment on above: Performed By: #### 2 157-6, C34, 83968-1, SPE, 68622-9, 5130-0, 65569-6, 6969-0, 6968-2 #### [facility] ([id number]) [address] [place] [address] OVALOCYTE 1+ Abnormal NONE [facility] Comment on above: Performed By: #### 2 157-6, C34, 36590-8, SPE, 77435-9, 5130-0, 91224-9, 6969-0, 6968-2 #### [facility] ([id number]) [address] [place] [address] Platelet mean volume (Bld) [Entitic vol] 9.1 fL Normal 7-12 [facility] Comment on above: Performed By: #### 2 157-6, C34, 57352-6, SPE, 87078-0, 5130-0, 74823-7, 6969-0, 6968-2 #### [facility] ([id number]) [address] [place] [address] Platelets (Bld) [#/Vol] 188 10*3/uL Normal 150-450 [facility] Comment on above: Performed By: #### 2 157-6, C34, 15113-5, SPE, 35979-2, 5130-0, 68320-4, 6969-0, 6968-2 #### [facility] ([id number]) [address] [place] [address] RBC COUNT 3.90 X10E12/L Low 4.10-5.70 [facility] Comment on above: Performed By: #### 2 157-6, C34, 89952-9, SPE, 38920-3, 5130-0, 59397-1, 6969-0, 6968-2 #### [facility] ([id number]) [address] [place] [address] SEG NEUTROPHIL 28.0 % Normal [facility] Comment on above: Performed By: #### 2 157-6, C34, 94040-0, SPE, 42231-6, 5130-0, 59488-8, 6969-0, 6968-2 #### [facility] ([id number]) [address] [place] [address] WBC (Bld) [#/Vol] 20.9 10*3/uL High 4.0-11.0 [facility] Comment on above: Performed By: #### 2 157-6, C34, 59522-4, SPE, 04106-5, 5130-0, 81840-4, 6969-0, 6968-2 #### [facility] ([id number]) [address] [place] [address] COMPREHENSIVE METABOLIC PANE Woody 04-28-2024 Albumin [Mass/Vol] 3.3 g/dL Normal 3.2-5.3 [facility] Comment on above: Performed By: #### 2 157-6, C34, 25534-4, SPE, 35767-5, 5130-0, 38668-6, 6969-0, 6968-2 #### [facility] ([id number]) [address] [place] [address] ALP [Catalytic activity/Vol] 82 U/L Normal 39-130 [facility] Comment on above: Performed By: #### 2 157-6, C34, 30453-2, SPE, 69155-9, 5130-0, 16226-2, 6969-0, 6968-2 #### [facility] ([id number]) [address] [place] [address] ALT [Catalytic activity/Vol] 36 U/L Normal 0-40 [facility] Comment on above: Performed By: #### 2 157-6, C34, 16283-6, SPE, 76007-3, 5130-0, 29472-3, 6969-0, 6968-2 #### [facility] ([id number]) [address] [place] [address] Anion gap [Moles/Vol] 5 mmol/L Normal 5-15 [facility] Comment on above: Performed By: #### 2 157-6, C34, 56282-9, SPE, 67988-4, 5130-0, 22564-1, 6969-0, 6968-2 #### [facility] ([id number]) [address] [place] [address] AST [Catalytic activity/Vol] 20 U/L Normal 0-41 [facility] Comment on above: Performed By: #### 2 157-6, C34, 05429-2, SPE, 40741-8, 5130-0, 99020-6, 6969-0, 6968-2 #### [facility] ([id number]) [address] [place] [address] Bilirubin [Mass/Vol] 0.5 mg/dL Normal 0.3-1.2 [facility] Comment on above: Performed By: #### 2 157-6, C34, 04493-4, SPE, 72212-5, 5130-0, 21839-0, 6969-0, 6968-2 #### [facility] ([id number]) [address] [place] [address] Calcium [Mass/Vol] 8.8 mg/dL Normal 8.5-10.5 [facility] Comment on above: Performed By: #### 2 157-6, C34, 68306-9, SPE, 25241-0, 5130-0, 36258-5, 6969-0, 6968-2 #### [facility] ([id number]) [address] [place] [address] Chloride [Moles/Vol] 107 mmol/L Normal 98-109 [facility] Comment on above: Performed By: #### 2 157-6, C34, 63720-7, SPE, 03735-7, 5130-0, 87061-7, 6969-0, 6968-2 #### [facility] ([id number]) [address] [place] [address] CO2 [Moles/Vol] 30 mmol/L Normal 22-32 [facility] Comment on above: Performed By: #### 2 157-6, C34, 69566-5, SPE, 12546-2, 5130-0, 97685-9, 6969-0, 6968-2 #### [facility] ([id number]) [address] [place] [address] Creatinine [Mass/Vol] 1.40 mg/dL High 0.60-1.30 [facility] Comment on above: Result Comment: METH OD TRACEABLE TO IDMS STANDARD Performed By: #### 2 157-6, C34, 06108-0, SPE, 00208-8, 5130-0, 46133-2, 6969-0, 6968-2 #### [facility] ([id number]) [address] [place] [address] GFR/1.73 sq M.predicted among non-blacks MDRD (S/P/Bld) [Vol rate/Area] 52 mL/min/{1.73_m2} Low >59 [facility] Comment on above: Result Comment: Reported eGFR is based on the CKD-EPI 2020 equation that does not use a race coefficient. Performed By: #### 2 157-6, C34, 23348-7, SPE, 48131-2, 5130-0, 90324-3, 6969-0, 6968-2 #### [facility] ([id number]) [address] [place] [address] Glucose [Mass/Vol] 57 mg/dL Low 65-99 [facility] Comment on above: Performed By: #### 2 157-6, C34, 44075-1, SPE, 32188-3, 5130-0, 82077-1, 6969-0, 6968-2 #### [facility] ([id number]) [address] [place] [address] Potassium [Moles/Vol] 4.4 mmol/L Normal 3.5-5.0 [facility] Comment on above: Performed By: #### 2 157-6, C34, 33758-0, SPE, 04013-2, 5130-0, 39438-6, 6969-0, 6968-2 #### [facility] ([id number]) [address] [place] [address] Protein [Mass/Vol] 5.7 g/dL Low 6.0-8.0 [facility] Comment on above: Performed By: #### 2 157-6, C34, 33450-4, SPE, 95405-1, 5130-0, 51105-3, 6969-0, 6968-2 #### [facility] ([id number]) [address] [place] [address] Sodium [Moles/Vol] 142 mmol/L Normal 134-146 [facility] Comment on above: Performed By: #### 2 157-6, C34, 31326-1, SPE, 60286-2, 5130-0, 18748-3, 6969-0, 6968-2 #### [facility] ([id number]) [address] [place] [address] Urea nitrogen [Mass/Vol] 35 mg/dL High 5-27 [facility] Comment on above: Performed By: #### 2 157-6, C34, 79513-3, SPE, 64036-0, 5130-0, 46794-6, 6969-0, 6968-2 #### [facility] ([id number]) [address] [place] [address] Glucose Glucometer (BldC) [M ass/Vol]on 04-28-2024 Glucose [Mass/Vol] 208 mg/dL High 65-99 [facility] Glucose [Mass/Vol] 132 mg/dL High 65-99 [facility] Glucose [Mass/Vol] 63 mg/dL Low 65-99 [facility] Glucose [Mass/Vol] 118 mg/dL High 65-99 [facility] Glucose [Mass/Vol] 62 mg/dL Low 65-99 [facility] Heparin unfractionated Chrom ogenic method Qn (PPP)on 04-28-2024 ANTI XA UFH 0.38 IU/mL Normal 0.30-0.70 [facility] Comment on above: Result Comment: Opti mal time for testing is 6 hrs post dosage This test is specific for monitoring patients on UFH, and is not recommended for use with other Anti-Xa medications. Performed By: #### 2 157-6, C34, 50141-5, SPE, 71227-0, 5130-0, 04174-6, 6969-0, 6968-2 #### [facility] ([id number]) [address] [place] [address] MAGNESIUMon 04-28-2024 Magnesium [Mass/Vol] 1.8 mg/dL Normal 1.8-2.6 [facility] Comment on above: Performed By: #### 2 157-6, C34, 18696-1, SPE, 09210-0, 5130-0, 87448-5, 6969-0, 6968-2 #### [facility] ([id number]) [address] [place] [address] US RETROPERITONEAL COMPLETEo n 04-28-2024 US RETROPERITONEAL COMPLETE US RETROPERITONEAL COMPLETE US RETROPERITONEAL COMPLETE INDICATION: Acute kidney failure COMPARISON: CT abdomen and pelvis 04/12/2014 TECHNIQUE: Grayscale and color Doppler sonographic images of the urinary bladder and both kidneys. FINDINGS: Measurements: Right kidney: 12.0 x 5.2 x 4.4 cm Right kidney cortex: 0.2 cm Left kidney: 12.7 x 6.1 x 5.6 cm Left kidney cortex: 0.2 cm Urinary bladder volume: 474 mL Post void volume: No void attempted. Right kidney: Normal cortical echogenicity. No hydronephrosis, mass, or calculi demonstrated. Left kidney: Normal cortical echogenicity. No hydronephrosis, mass, or calculi demonstrated. Urinary bladder: Unremarkable. Bilateral ureteral jets not visualized. IMPRESSION: * Unremarkable ultrasound of the bilateral kidneys and urinary bladder. Approved by Resident: Federico Donaldson MD on 04/28/2024 2:06 AM I, Corby Cintron MD have personally reviewed the image(s) and agree with and/or edited the report Finalized by Corby Cintron MD on 04/28/2024 2:26 AM Normal [facility] CBC AND AUTO DIFFon 04-27-20 24 Eosinophils (Bld) [#/Vol] 0.2 10*3/uL Normal 0.0-0.4 [facility] Comment on above: Performed By: #### C BCA, CMP, 86703-6, 33622-9, 19201-7 #### [facility] ([id number]) [address] [place] [address] Eosinophils/100 WBC (Bld) 1.0 % Normal [facility] Comment on above: Performed By: #### C BCA, CMP, 57061-1, 23861-9, 54570-6 #### [facility] ([id number]) [address] [place] [address] Erythrocyte distribution width (RBC) [Ratio] 13.8 % Normal 11.5-15.0 [facility] Comment on above: Performed By: #### C BCA, CMP, 95032-8, 12468-3, 99334-4 #### [facility] ([id number]) [address] [place] [address] Hematocrit (Bld) [Volume fraction] 30.1 % Low 39-49 [facility] Comment on above: Performed By: #### Rose Marie BCA, CMP, 78877-2, 79439-7, 46070-7 #### [facility] ([id number]) [address] [place] [address] Hemoglobin (Bld) [Mass/Vol] 10.2 g/dL Low 13.0-17.0 [facility] Comment on above: Performed By: #### C BCA, CMP, 65474-9, 39975-2, 80693-9 #### [facility] ([id number]) [address] [place] [address] LYMPHOCYTE, ATYPICAL 4.0 % Normal [facility] Comment on above: Performed By: #### C BCA, CMP, 12549-1, 81583-8, 34756-3 #### [facility] ([id number]) [address] [place] [address] Lymphocytes (Bld) [#/Vol] 8.6 10*3/uL High 1.0-3.5 [facility] Comment on above: Performed By: #### C BCA, CMP, 19681-5, 67809-0, 84478-5 #### [facility] ([id number]) [address] [place] [address] Lymphocytes/100 WBC (Bld) 35.0 % Normal [facility] Comment on above: Performed By: #### C BCA, CMP, 81184-8, 67235-0, 52945-4 #### [facility] ([id number]) [address] [place] [address] MCH (RBC) [Entitic mass] 30.9 pg Normal 27-34 [facility] Comment on above: Performed By: #### C BCA, CMP, , 05166-6, 22238-7 #### [facility] ([id number]) [address] [place] [address] MCHC (RBC) [Mass/Vol] 34.0 g/dL Normal 32-36 [facility] Comment on above: Performed By: #### C BCA, CMP, , 08590-4, 93546-5 #### [facility] ([id number]) [address] [place] [address] MCV (RBC) [Entitic vol] 91 fL Normal 80-100 [facility] Comment on above: Performed By: #### Rose Marie BCA, CMP, , 25668-7, 76834-4 #### [facility] ([id number]) [address] [place] [address] Monocytes (Bld) [#/Vol] 0.2 10*3/uL Normal 0-0.9 [facility] Comment on above: Performed By: #### C BCA, CMP, 66078-7, 98803-7, 60551-4 #### [facility] ([id number]) [address] [place] [address] Monocytes/100 WBC (Bld) 1.0 % Normal [facility] Comment on above: Performed By: #### C BCA, CMP, 32962-4, 34814-4, 41334-9 #### [facility] ([id number]) [address] [place] [address] Neutrophils (Bld) [#/Vol] 13.0 10*3/uL High 1.5-6.6 [facility] Comment on above: Performed By: #### Rose Marie BCA, CMP, 41204-3, 75893-1, 17076-2 #### [facility] ([id number]) [address] [place] [address]855 OVALOCYTE 1+ Abnormal NONE [facility] Comment on above: Performed By: #### Rose Marie BCA, CMP, 22159-1, 62108-0, 95795-9 #### [facility] ([id number]) [address] [place] [address] 86580 Platelet mean volume (Bld) [Entitic vol] 8.6 fL Normal 7-12 [facility] Comment on above: Performed By: #### Rose Marie BCA, CMP, 04115-0, 14491-0, 09715-4 #### [facility] ([id number]) [address] [place] [address] 27562 Platelets (Bld) [#/Vol] 172 10*3/uL Normal 150-450 [facility] Comment on above: Performed By: #### Rose Marie BCA, CMP, 77640-0, 30583-2, 22936-7 #### [facility] ([id number]) [address] [place] [address] 54325 RBC COUNT 3.30 X10E12/L Low 4.10-5.70 [facility] Comment on above: Performed By: #### Rose Marie BCA, CMP, 66440-8, 50284-7, 15279-2 #### [facility] ([id number]) [address] [place] [address] 75632 SEG NEUTROPHIL 59.0 % Normal [facility] Comment on above: Performed By: #### C BCA, CMP, 04382-9, 84655-2, 28102-4 #### [facility] ([id number]) [address] [place] [address] 68265 WBC (Bld) [#/Vol] 22.0 10*3/uL High 4.0-11.0 [facility] Comment on above: Performed By: #### C BCA, CMP, 26708-9, 18265-4, 50618-9 #### [facility] ([id number]) [address] [place] [address] 91399 CK [Catalytic activity/Vol]o n 04-27-2024 CPK 99 U/L Normal 24-195 [facility] Comment on above: Performed By: #### 2 157-6, C34, 35809-0, SPE, 60418-6, 5130-0, 72531-4, 6969-0, 6968-2 #### [facility] ([id number]) [address], [address] [place] [address] COMPLEMENT PROFILEon 024 COMPLEMENT C3 141 mg/dL Normal 86-184 [facility] Comment on above: Performed By: #### 2 157-6, C34, 53599-4, SPE, 09661-4, 5130-0, 35664-6, 6969-0, 6968-2 #### [facility] ([id number]) [address], [address] [place] [address] COMPLEMENT C4 25 mg/dL Normal 16-47 [facility] Comment on above: Performed By: #### 2 157-6, C34, 19329-2, SPE, 84294-0, 5130-0, 47864-2, 6969-0, 6968-2 #### [facility] ([id number]) [address] [place] [address], [address] [place] [address] COMPREHENSIVE METABOLIC PANE Woody 04-27-2024 Albumin [Mass/Vol] 3.0 g/dL Low 3.2-5.3 [facility] Comment on above: Performed By: #### C BCA, CMP, 84199-0, 07009-7, 42727-5 #### [facility] [facility] ([id number]) [address] [place] [address] 66146 ALP [Catalytic activity/Vol] 79 U/L Normal 39-130 [facility] Comment on above: Performed By: #### C BCA, CMP, 62768-9, 85347-7, 41759-0 #### [facility] ([id number]) [address] [place] [address] 16466 ALT [Catalytic activity/Vol] 51 U/L High 0-40 [facility] Comment on above: Performed By: #### C BCA, CMP, 23002-5, 95574-6, 27676-7 #### [facility] ([id number]) [address] [place] [address] 59504 Anion gap [Moles/Vol] 8 mmol/L Normal 5-15 [facility] Comment on above: Performed By: #### C BCA, CMP, 45620-4, 10794-1, 94403-6 #### [facility] ([id number]) [address] [place] [address] 37761 AST [Catalytic activity/Vol] 35 U/L Normal 0-41 [facility] Comment on above: Performed By: #### C BCA, CMP, 57451-2, 98324-7, 39719-3 #### [facility] ([id number]) [address] [place] [address] 78959 Bilirubin [Mass/Vol] 0.5 mg/dL Normal 0.3-1.2 [facility] Comment on above: Performed By: #### C BCA, CMP, 80047-8, 65591-4, 43419-9 #### [facility] ([id number]) [address] [place] [address] 31359 Calcium [Mass/Vol] 8.7 mg/dL Normal 8.5-10.5 [facility] Comment on above: Performed By: #### C BCA, CMP, 04861-8, 86440-1, 05875-5 #### [facility] ([id number]) [address] [place] [address] 56632 Chloride [Moles/Vol] 107 mmol/L Normal 98-109 [facility] Comment on above: Performed By: #### C BCA, CMP, 29950-9, 71864-1, 64198-8 #### [facility] ([id number]) [address] [place] [address] 39879 CO2 [Moles/Vol] 22 mmol/L Normal 22-32 [facility] Comment on above: Performed By: #### C BCA, CMP, 33032-5, 52484-4, 84380-6 #### [facility] ([id number]) [address] [place] [address] 35758 Creatinine [Mass/Vol] 1.74 mg/dL High 0.70-1.20 [facility] Comment on above: Result Comment: METH OD TRACEABLE TO IDMS STANDARD Performed By: #### C BCA, CMP, 12887-4, 96025-7, 19334-4 #### [facility] ([id number]) [address] [place] [address] 29141 GFR/1.73 sq M.predicted among non-blacks MDRD (S/P/Bld) [Vol rate/Area] 40 mL/min/{1.73_m2} Low >59 [facility] Comment on above: Result Comment: Reported eGFR is based on the CKD-EPI 2020 equation that does not use a race coefficient. Performed By: #### C BCA, CMP, 09357-3, 82299-8, 46967-4 #### [facility] ([id number]) [address] [place] [address] 20893 Glucose [Mass/Vol] 146 mg/dL High 65-99 [facility] Comment on above: Performed By: #### C BCA, CMP, 23310-8, 46548-4, 81480-1 #### [facility] ([id number]) [address] [place] [address] 11843 Potassium [Moles/Vol] 4.8 mmol/L Normal 3.5-5.0 [facility] Comment on above: Performed By: #### C BCA, CMP, , 51205-6, 80753-5 #### [facility] ([id number]) [address] [place] [address] 59694 Protein [Mass/Vol] 5.4 g/dL Low 6.0-8.0 [facility] Comment on above: Performed By: #### C BCA, CMP, , 06272-9, 97257-2 #### [facility] ([id number]) [address] [place] [address] 19413 Sodium [Moles/Vol] 137 mmol/L Normal 134-146 [facility] Comment on above: Performed By: #### C BCA, CMP, 29386-8, 06408-4, 59888-5 #### [facility] ([id number]) [address] [place] [address] 44376 Urea nitrogen [Mass/Vol] 44 mg/dL High 5-27 [facility] Comment on above: Performed By: #### C BCA, CMP, 66509-9, 26607-1, 10915-6 #### [facility] ([id number]) [address] [place] [address] 39994 Chloride (U) [Moles/Vol]on 1 URINE CHLORIDE,RANDOM 117 mmol/L Normal [facility] Comment on above: Performed By: #### 2 157-6, C34, 18976-7, SPE, 61375-3, 5130-0, 14842-3, 6969-0, 6968-2 #### [facility] ([id number]) [address] [place] [address], [address] [place] [address] Clinical Pathologyon 024 Clinical Pathology Normal [facility] Comment on above: Result Comment: [facility] [address] [place] [address] Clinical Pathology Report Patient Name:ILA MOREJON:1945 (Age: 78)Gender:MTaken:04/27/2024eported:04/28/2024hysician(s):Za Bryan DO ([phone])Copy To: Rec. #:[id number]: #[id number] Final Pathologic Diagnosis Faint albumin band. No monoclonal protein identified. Report Electronically Signed Out df04/28/2024álvaro Sauceda MD Interpretation performed at [facility], [address] [place] [address], License number: [id number]. Clinical History I21.4 URINE PROTEIN ELECTROPHORESIS SAMPLE NUMBER: [id number] RELATIVE ELECTROPHORETIC CONCENTRATIONS (%) ? 100.0 Urine Protein 860 mg/L (Electrophoretic gels and densitometric tracings on file in lab.) Specimen(s) Received Urine Protein Electrophoresis Fee Codes(s): 1; 36204-78 DNA double strand Ab Qn (S)o n 04-27-2024 DOUBLE STRANDED DNA <1 Normal <5 [facility] Comment on above: Result Comment: Interpretation-------- <5 Negative 5-9 Indeterminate >9 Positive Performed By: #### 2 157-6, C34, 53504-0, SPE, 33707-9, 5130-0, 29573-9, 6969-0, 6968-2 #### [facility] ([id number]) [address], [address] [place] [address] FREE LIGHT CHAINSon 04-27-20 24 FREE HAM/LAMBD RATIO 2.30 High 0.26-1.65 [facility] Comment on above: Performed By: #### 2 157-6, C34, 67912-4, SPE, 42340-5, 5130-0, 23945-4, 6969-0, 6968-2 #### [facility] ([id number]) [address], [address] [place] [address] FREE KAPPA LT CHAINS 4.35 mg/dL High 0.33-1.94 [facility] Comment on above: Performed By: #### 2 157-6, C34, 96674-2, SPE, 24548-3, 5130-0, 22177-1, 6969-0, 6968-2 #### [facility] ([id number]) [address], [address] [place] [address] FREE LAMBDA LT CHAINS 1.89 mg/dL Normal 0.57-2.63 [facility] Comment on above: Performed By: #### 2 157-6, C34, 66080-1, SPE, 03625-8, 5130-0, 45067-4, 6969-0, 6968-2 #### [facility] ([id number]) [address], [address] [place] [address] Glomerular basement membrane IgG Qn (S)on 04-27-2024 GBM IgG Ab <0.2 Normal <1.0 [facility] Comment on above: Performed By: #### 2 157-6, C34, 40927-3, SPE, 79734-7, 5130-0, 04156-8, 6969-0, 6968-2 #### [facility] ([id number]) [address] [facility] [facility], [address] [place] [address] Glucose Glucometer (BldC) [M ass/Vol]on 04-27-2024 Glucose [Mass/Vol] 245 mg/dL High 65-99 [facility] Glucose [Mass/Vol] 248 mg/dL High 65-99 [facility] Glucose [Mass/Vol] 249 mg/dL High 65-99 [facility] Heparin unfractionated Chrom ogenic method Qn (PPP)on 04-27-2024 ANTI XA UFH 0.31 IU/mL Normal 0.30-0.70 [facility] Comment on above: Result Comment: Opti mal time for testing is 6 hrs post dosage This test is specific for monitoring patients on UFH, and is not recommended for use with other Anti-Xa medications. Performed By: #### 2 157-6, C34, 04003-7, SPE, 76845-7, 5130-0, 77075-0, 6969-0, 6968-2 #### [facility] ([id number]) [address] [facility] [facility], [address] [place] [address] ANTI XA UFH 0.31 IU/mL Normal 0.30-0.70 [facility] Comment on above: Result Comment: Opti mal time for testing is 6 hrs post dosage This test is specific for monitoring patients on UFH, and is not recommended for use with other Anti-Xa medications. Performed By: #### 3 274-8 #### [facility] ([id number]) [address] [facility] [facility], [address] [place] [address] ANTI XA UFH 0.45 IU/mL Normal 0.30-0.70 [facility] Comment on above: Result Comment: Opti mal time for testing is 6 hrs post dosage This test is specific for monitoring patients on UFH, and is not recommended for use with other Anti-Xa medications. Performed By: #### C BCA, CMP, 50654-6, 91580-6, 21389-8 #### [facility] ([id number]) [address] [facility], [place] [address] MAGNESIUMon 04-27-2024 Magnesium [Mass/Vol] 2.0 mg/dL Normal 1.8-2.6 [facility] Comment on above: Performed By: #### C BCA, CMP, 64214-8, 28632-6, 30864-4 #### [facility] ([id number]) [address] [facility] [facility], [place] [address] Myeloperoxidase Ab Qn (S)on 04-27-2024 Myeloperoxidase Ab <0.2 Normal <1.0 [facility] Comment on above: Performed By: #### 2 157-6, C34, 34150-7, SPE, 98281-2, 5130-0, 97330-4, 6969-0, 6968-2 #### [facility] ([id number]) [address] [facility] [facility] [address], [address] [place] [address] Natriuretic peptide B [Mass/ Vol]on 04-27-2024 Natriuretic peptide B (Bld) [Mass/Vol] 1576 pg/mL High <100.0 [facility] Comment on above: Performed By: #### 2 157-6, C34, 06796-6, SPE, 06156-8, 5130-0, 53353-1, 6969-0, 6968-2 #### [facility] ([id number]) [address] [facility] [address] [facility] [address], [address] [place] [address] Nuclear Ab IA Ql (S)on 04-27 RAMÓN Screen w/reflex Negative Normal NEG [facility] Comment on above: Result Comment: Testing performed using multiplex flow immunoassay. Eleven different antigens associated with systemic autoimmune diseases (dsDNA,Sm,Sm/CUT OFF SAW OPERATOR PIPE BLANKS,CUT OFF SAW OPERATOR PIPE BLANKS,Chromatin, SSA,SSB,Kiara-1,Scl70,Ribo P,Centromere B) are included in this screening test. Performed By: #### 2 157-6, C34, 50210-1, SPE, 89183-1, 5130-0, 39929-9, 6969-0, 6968-2 #### [facility] ([id number]) [address], [address] [place] [address] PROTEIN CREAT RATIOon 2023 RANDOM URINE PROTEIN 860 mg/L High <120 [facility] Comment on above: Performed By: #### 2 157-6, C34, 57953-9, SPE, 06057-8, 5130-0, 76966-5, 6969-0, 6968-2 #### [facility] ([id number]) [address], [address] [place] [address] U/PRO/SUB MASTER RATIO CALC 2.56 High <0.2 [facility] Comment on above: Result Comment: Neph rotic Syndrome is associated with ratios >3.5 Performed By: #### 2 157-6, C34, 71254-5, SPE, 45804-5, 5130-0, 17369-3, 6969-0, 6968-2 #### [facility] ([id number]) [address], [address] [place] [address] URINE CREATININE,RDM 33.58 mg/dL Normal [facility] Comment on above: Performed By: #### 2 157-6, C34, 95516-6, SPE, 34697-3, 5130-0, 25857-0, 6969-0, 6968-2 #### [facility] ([id number]) [address], [address] [place] [address] Proteinase 3 Ab Qn (S)on Proteinase 3 IgG Ab <0.2 Normal <1.0 [facility] Comment on above: Performed By: #### 2 157-6, C34, 06057-2, SPE, 24843-8, 5130-0, 83673-7, 6969-0, 6968-2 #### [facility] ([id number]) [address], [address] [place] [address] Rheumatoid factor Nephelomet ry Qn (S)on 04-27-2024 RHEUMATOID FACTOR <10 Normal <20 [facility] Comment on above: Performed By: #### 2 157-6, C34, 71553-6, SPE, 28452-9, 5130-0, 71787-5, 6969-0, 6968-2 #### [facility] ([id number]) [address], [address] [place] [address] SERUM PROTEIN ELECTROPHORESI Son 04-27-2024 Albumin [Mass/Vol] 3.3 g/dL Low 3.4-5.3 [facility] Comment on above: Performed By: #### 2 157-6, C34, 61025-4, SPE, 22553-5, 5130-0, 10798-7, 6969-0, 6968-2 #### [facility] ([id number]) [address], [address] [place] [address] ALPHA 1 GLOBULIN 0.4 g/dL Normal 0.1-0.4 [facility] Comment on above: Performed By: #### 2 157-6, C34, 11783-6, SPE, 80729-1, 5130-0, 87654-7, 6969-0, 6968-2 #### [facility] ([id number]) [address], [address] [place] [address] ALPHA 2 GLOBULIN 0.9 g/dL Normal 0.4-1.1 [facility] Comment on above: Performed By: #### 2 157-6, C34, 92554-9, SPE, 16683-8, 5130-0, 52509-7, 6969-0, 6968-2 #### [facility] ([id number]) [address], [address] [place] [address] BETA GLOBULIN 0.7 g/dL Normal 0.5-1.2 [facility] Comment on above: Performed By: #### 2 157-6, C34, 13602-3, SPE, 01342-1, 5130-0, 75539-4, 6969-0, 6968-2 #### [facility] ([id number]) [address], [address] [place] [address] GAMMA GLOBULIN 0.6 g/dL Normal 0.5-1.6 [facility] Comment on above: Performed By: #### 2 157-6, C34, 98183-7, SPE, 55016-9, 5130-0, 52683-2, 6969-0, 6968-2 #### [facility] ([id number]) [address], [address] [place] [address] PROT. ELECTROPHORESIS INTERP Unremarkable protein distribution, no monoclonal bands. Normal [facility] Comment on above: Performed By: #### 2 157-6, C34, 10177-6, SPE, 04134-0, 5130-0, 99537-5, 6969-0, 6968-2 #### [facility] ([id number]) [address], [address] [place] [address] Protein [Mass/Vol] 5.9 g/dL Low 6.0-8.0 [facility] Comment on above: Performed By: #### 2 157-6, C34, 81841-1, SPE, 45086-7, 5130-0, 43224-1, 6969-0, 6968-2 #### [facility] ([id number]) [address], [address] [place] [address] Troponin I.cardiac High sens itivity method [Mass/Vol]on 04-27-2024 3 HOUR TROP I, HIGH SENSITIVITY 6066 ng/L Critically high <21 [facility] Comment on above: Result Comment: Elevations of hs-Troponin may be due to causes other than myocardial ischemia. Recommend serial hs-Troponin testing be performed. For the initial evaluation and management of chest pain patients, refer to the algorithms linked below. Emergency Patient: [email or web address] Inpatient: [email or web address] Performed By: #### C BCA, CMP, 71271-9, 29682-0, 23698-7 #### [facility] ([id number]) [address] [place] [address], [place] [address] URINALYSISon 04-27-2024 Bilirubin Ql (U) Negative Normal NEG [facility] Comment on above: Performed By: #### 2 157-6, C34, 75266-8, SPE, 64276-6, 5130-0, 53728-4, 6969-0, 6968-2 #### [facility] ([id number]) [address], [address] [place] [address] BLOOD/HGB Negative Normal NEG [facility] Comment on above: Performed By: #### 2 157-6, C34, 22934-1, SPE, 29623-3, 5130-0, 48981-2, 6969-0, 6968-2 #### [facility] ([id number]) [address], [address] [place] [address] Color (U) YELLOW Normal YELLOW [facility] Comment on above: Performed By: #### 2 157-6, C34, 10779-2, SPE, 19142-4, 5130-0, 68632-3, 6969-0, 6968-2 #### [facility] ([id number]) [address], [address] [place] [address] Glucose Ql (U) Negative Normal NEG [facility] Comment on above: Performed By: #### 2 157-6, C34, 25562-3, SPE, 40552-6, 5130-0, 45876-6, 6969-0, 6968-2 #### [facility] ([id number]) [address], [address] [place] [address] Hyaline casts LM Ql (Urine sed) 1 /lpf Normal 0-2 [facility] Comment on above: Performed By: #### 2 157-6, C34, 94228-0, SPE, 30552-5, 5130-0, 97655-6, 6969-0, 6968-2 #### [facility] ([id number]) [address], [address] [place] [address] Ketones Ql (U) Negative Normal NEG [facility] Comment on above: Performed By: #### 2 157-6, C34, 15255-3, SPE, 02078-5, 5130-0, 38835-6, 6969-0, 6968-2 #### [facility] ([id number]) [address], [address] [place] [address] Leukocyte esterase Test strip Ql (U) Negative Normal NEG [facility] Comment on above: Performed By: #### 2 157-6, C34, 70260-5, SPE, 55478-9, 5130-0, 55633-9, 6969-0, 6968-2 #### [facility] ([id number]) [address], [address] [place] [address] MUCOUS PRESENT Abnormal NONE [facility] Comment on above: Performed By: #### 2 157-6, C34, 58218-9, SPE, 55469-5, 5130-0, 05663-0, 6969-0, 6968-2 #### [facility] ([id number]) [address], [address] [place] [address] Nitrite Ql (U) Negative Normal NEG [facility] Comment on above: Performed By: #### 2 157-6, C34, 77857-2, SPE, 48899-3, 5130-0, 46321-2, 6969-0, 6968-2 #### [facility] ([id number]) [address], [address] [place] [address] pH (U) 6.0 [pH] Normal 5.0-8.5 [facility] Comment on above: Performed By: #### 2 157-6, C34, 55706-8, SPE, 65269-3, 5130-0, 78075-0, 6969-0, 6968-2 #### [facility] ([id number]) [address], [address] [place] [address] Protein Ql (U) 100 mg/dL Abnormal NEG [facility] Comment on above: Performed By: #### 2 157-6, C34, 35066-0, SPE, 08213-6, 5130-0, 89033-4, 6969-0, 6968-2 #### [facility] ([id number]) [address], [address] [place] [address] R.B.CELLS <1 Normal 0-5 [facility] Comment on above: Performed By: #### 2 157-6, C34, 47666-0, SPE, 28586-9, 5130-0, 79228-2, 6969-0, 6968-2 #### [facility] ([id number]) [address], [address] [place] [address] Specific gravity (U) [Rel density] 1.011 Normal 1.003-1.035 [facility] Comment on above: Performed By: #### 2 157-6, C34, 39483-1, SPE, 25591-9, 5130-0, 40938-0, 6969-0, 6968-2 #### [facility] ([id number]) [address], [address] [place] [address] SQUAMOUS EPITHELIUM <1 Normal 0-5 [facility] Comment on above: Performed By: #### 2 157-6, C34, 41902-9, SPE, 99424-5, 5130-0, 91644-3, 6969-0, 6968-2 #### [facility] ([id number]) [address], [address] [place] [address] TURBIDITY CLEAR Normal CLEAR [facility] Comment on above: Performed By: #### 2 157-6, C34, 56851-4, SPE, 36208-7, 5130-0, 81545-5, 6969-0, 6968-2 #### [facility] ([id number]) [address] [place] [address] Urobilinogen (U) [Mass/Vol] mg/dL Normal <1.1 [facility] Comment on above: Performed By: #### 2 157-6, C34, 06928-7, SPE, 91313-2, 5130-0, 41334-8, 6969-0, 6968-2 #### [facility] ([id number]) [address], [address] [place] [address] W.B.CELLS <1 Normal 0-5 [facility] Comment on above: Performed By: #### 2 157-6, C34, 28362-2, SPE, 28935-1, 5130-0, 87572-1, 6969-0, 6968-2 #### [facility] ([id number]) [address], [address] [place] [address] URINE PROTEIN ELECTROPHORESI Son 04-27-2024 UPREL INTERP SEE SEPARATE REPORT Normal [facility] URINE SODIUM,RANDOMon 2023 Sodium (U) [Moles/Vol] 110 mmol/L Normal Pr [facility] Comment on above: Performed By: #### 2 157-6, C34, 96589-3, SPE, 19625-6, 5130-0, 87305-0, 6969-0, 6968-2 #### [facility] ([id number]) [address] [place] [address], [address] [place] [address] CBC AND AUTO DIFFon 04-26-20 ABSOLUTE BASOPHIL 0.3 X10E9/L High 0.0-0.2 [facility] Comment on above: Performed By: #### C BCA, CMP, 20799-9, 41868-3, 07448-3 #### [facility] ([id number]) [address] [place] [address] Band form neutrophils/100 WBC (Bld) 1.0 % Normal [facility] Comment on above: Performed By: #### C BCA, CMP, 72379-8, 47891-7, 86011-0 #### [facility] ([id number]) [address] [place] [address] Basophils/100 WBC (Bld) 1.0 % Normal [facility] Comment on above: Performed By: #### C BCA, CMP, 28736-3, 35185-1, 66121-1 #### [facility] ([id number]) [address] [place] [address] YOSI 1+ Abnormal NONE [facility] Comment on above: Performed By: #### C BCA, CMP, 02752-2, 50508-8, 53442-7 #### [facility] ([id number]) [address] [place] [address] Erythrocyte distribution width (RBC) [Ratio] 13.7 % Normal 11.5-15.0 [facility] Comment on above: Performed By: #### C BCA, CMP, 52215-0, 22348-8, 34017-7 #### [facility] ([id number]) [address] [place] [address] Hematocrit (Bld) [Volume fraction] 34.2 % Low 39-49 [facility] Comment on above: Performed By: #### C BCA, CMP, 09318-3, 90121-8, 81254-5 #### [facility] ([id number]) [address] [place] [address] Hemoglobin (Bld) [Mass/Vol] 11.7 g/dL Low 13.0-17.0 [facility] Comment on above: Performed By: #### C BCA, CMP, 64259-2, 44390-8, 76878-5 #### [facility] ([id number]) [address] [place] [address] Lymphocytes (Bld) [#/Vol] 10.9 10*3/uL High 1.0-3.5 [facility] Comment on above: Performed By: #### C BCA, CMP, 20001-6, 22874-0, 68175-7 #### [facility] ([id number]) [address] [place] [address] Lymphocytes/100 WBC (Bld) 41.0 % Normal [facility] Comment on above: Performed By: #### C BCA, CMP, 10570-0, 47396-1, 86680-0 #### [facility] ([id number]) [address] [place] [address] 77908 MCH (RBC) [Entitic mass] 30.9 pg Normal 27-34 [facility] Comment on above: Performed By: #### C BCA, CMP, 25942-6, 41298-0, 75907-6 #### [facility] ([id number]) [address] [place] [address] 21231 MCHC (RBC) [Mass/Vol] 34.1 g/dL Normal 32-36 [facility] Comment on above: Performed By: #### C BCA, CMP, 66531-9, 64483-9, 49096-8 #### [facility] ([id number]) [address] [place] [address] 11446 MCV (RBC) [Entitic vol] 91 fL Normal 80-100 [facility] Comment on above: Performed By: #### Rose Marie HAYES, CMP, 32443-7, 08388-2, 31972-4 #### [facility] ([id number]) [address] [place] [address] 04115 Neutrophils (Bld) [#/Vol] 15.5 10*3/uL High 1.5-6.6 [facility] Comment on above: Performed By: #### Rose Marie HAYES, CMP, 52062-3, 57859-3, 19039-3 #### [facility] ([id number]) [address] [place] [address] 28400 OVALOCYTE 1+ Abnormal NONE [facility] Comment on above: Performed By: #### Rose Marie HAYES, CMP, 22130-0, 32961-2, 43691-8 #### [facility] ([id number]) [address] [place] [address] [phone] Platelet mean volume (Bld) [Entitic vol] 9.1 fL Normal 7-12 [facility] Comment on above: Performed By: #### Rose Marie BCA, CMP, 53607-7, 17518-2, 29667-0 #### [facility] ([id number]) [address] [place] [address] 02930 Platelets (Bld) [#/Vol] 198 10*3/uL Normal 150-450 [facility] Comment on above: Performed By: #### Rose Marie BCA, CMP, 56366-8, 43781-8, 79820-2 #### [facility] ([id number]) [address] [place] [address] 05241 RBC COUNT 3.77 X10E12/L Low 4.10-5.70 [facility] Comment on above: Performed By: #### Rose Marie BCA, CMP, 27706-8, 42310-5, 22929-4 #### [facility] ([id number]) [address] [place] [address] 53682 SEG NEUTROPHIL 57.0 % Normal [facility] Comment on above: Performed By: #### C ABIGAIL, CMP, 58224-8, 35760-5, 99928-8 #### [facility] ([id number]) [address] [place] [address] 41603 WBC (Bld) [#/Vol] 26.4 10*3/uL High 4.0-11.0 [facility] Comment on above: Performed By: #### C LEÓN HAYES, 56423-7, 19817-1, 30486-7 #### [facility] ([id number]) [address] [place] [address] 23943 Eosinophils (Bld) [#/Vol] 0.4 10*3/uL Normal 0.0-0.4 [facility] Comment on above: Performed By: #### C MP, 32230-6, CBCA, 21222-0, 73389-2, PINR, 95788-8 ####[facility] ([id number])[address] [place] [address] 02157 Eosinophils/100 WBC (Bld) 1.0 % Normal [facility] Comment on above: Performed By: #### C MP, 79225-2, CBCA, 02644-4, 00968-4, PINR, 25349-1 ####[facility] ([id number])[address] [place] [address] 03768 Erythrocyte distribution width (RBC) [Ratio] 14.0 % Normal 11.5-15.0 [facility] Comment on above: Performed By: #### C MP, 31286-0, CBCA, 60489-3, 12378-3, PINR, 40496-9 ####[facility] ([id number])[address] [place] [address] 24547 Hematocrit (Bld) [Volume fraction] 38.0 % Low 39-49 [facility] Comment on above: Performed By: #### C MP, 59394-5, CBCA, 41672-7, 22008-4, PINR, 55668-0 ####[facility] ([id number])[address] [place] [address] 55570 Hemoglobin (Bld) [Mass/Vol] 12.5 g/dL Low 13.0-17.0 [facility] Comment on above: Performed By: #### C KARISHMA, 18577-8, CBCA, 00922-7, 17967-8, PINR, 39193-4 ####[facility] ([id number])[address] [place] [address] 02940 Lymphocytes (Bld) [#/Vol] 30.6 10*3/uL High 1.0-3.5 [facility] Comment on above: Performed By: #### C KARISHMA, , CBCA, 18314-0, 62007-4, PINR, 64481-9 ####[facility] ([id number])[address] [place] [address] 36876 Lymphocytes/100 WBC (Bld) 68.0 % Normal [facility] Comment on above: Performed By: #### C KARISHMA, , CBCA, 49959-4, 64662-1, PINR, 86845-6 ####[facility] ([id number])[address] [place] [address] 41830 MCH (RBC) [Entitic mass] 30.4 pg Normal 27-34 [facility] Comment on above: Performed By: #### C KARISHMA, 02022-7, CBCA, 90009-7, 61504-8, PINR, 40526-3 ####[facility] ([id number])[address] [place] [address] [place] [address] MCHC (RBC) [Mass/Vol] 32.9 g/dL Normal 32-36 [facility] Comment on above: Performed By: #### C MP, 98207-0, CBCA, 70954-6, 89329-3, PINR, 61662-9 ####[facility] ([id number])[address] [place] [address] 35368 MCV (RBC) [Entitic vol] 93 fL Normal 80-100 [facility] Comment on above: Performed By: #### C AKRISHMA, 95573-1, CBCA, 52543-3, 79509-6, PINR, 20660-5 ####[facility] ([id number])[address] [place] [address] 40907 Monocytes (Bld) [#/Vol] 0.9 10*3/uL Normal 0-0.9 [facility] Comment on above: Performed By: #### C KARISHMA, 82508-2, CBCA, 45010-7, 31426-4, PINR, 36031-0 ####[facility] ([id number])[address] [place] [address] 49742 Monocytes/100 WBC (Bld) 2.0 % Normal [facility] Comment on above: Performed By: #### C MP, 92847-9, CBCA, 20981-7, 37644-5, PINR, 73111-6 ####[facility] ([id number])[address] [place] [address] 93580 Neutrophils (Bld) [#/Vol] 13.0 10*3/uL High 1.5-6.6 [facility] Comment on above: Performed By: #### C MP, 86580-5, CBCA, 65559-2, 42580-0, PINR, 79685-5 ####[facility] ([id number])[address] [place] [address] 64643 Platelet mean volume (Bld) [Entitic vol] 8.8 fL Normal 7-12 [facility] Comment on above: Performed By: #### C MP, 79501-3, CBCA, 82998-5, 74728-9, PINR, 35010-8 ####[facility] ([id number])[address] [place] [address] 71510 Platelets (Bld) [#/Vol] 302 10*3/uL Normal 150-450 [facility] Comment on above: Performed By: #### C MP, 41606-8, CBCA, 35211-9, 62506-7, PINR, 41481-7 ####[facility] ([id number])[address] [place] [address] 06590 RBC COUNT 4.10 X10E12/L Normal 4.10-5.70 [facility] Comment on above: Performed By: #### C MP, 21466-9, CBCA, 96703-6, 24553-9, PINR, 78649-0 ####[facility] ([id number])[address] [place] [address] 89317 RBC morphology finding Nom (Bld) REVIEWED Normal [facility] Comment on above: Performed By: #### C MP, 19061-3, CBCA, 11041-3, 74192-3, PINR, 80358-9 ####[facility] ([id number])[address] [place] [address] 25137 SEG NEUTROPHIL 29.0 % Normal [facility] Comment on above: Performed By: #### C MP, 63347-9, CBCA, 48934-8, 05303-1, PINR, 29404-1 ####[facility] ([id number])[address] [place] [address] 04827 WBC (Bld) [#/Vol] 44.9 10*3/uL High 4.0-11.0 [facility] Comment on above: Performed By: #### C MP, 68183-4, CBCA, 19258-1, 39032-0, PINR, 58211-9 ####[facility] ([id number])[address] [place] [address] 73731 COMPREHENSIVE METABOLIC PANE Woody 04-26-2024 Albumin [Mass/Vol] 3.7 g/dL Normal 3.2-5.3 [facility] Comment on above: Performed By: #### C MP, 60585-6, CBCA, 72847-1, 92826-7, PINR, 68615-3 ####[facility] ([id number])[address] [place] [address] 95029 ALP [Catalytic activity/Vol] 133 U/L High 39-130 [facility] Comment on above: Performed By: #### C MP, 36284-1, CBCA, 56588-4, 42451-6, PINR, 89159-0 ####[facility] ([id number])[address] [place] [address] 72184 ALT [Catalytic activity/Vol] 87 U/L High 0-40 [facility] Comment on above: Performed By: #### C MP, 30245-0, CBCA, 38254-0, 93430-8, PINR, 18371-5 ####[facility] ([id number])[address] [place] [address] 81565 Anion gap [Moles/Vol] 7 mmol/L Normal 5-15 [facility] Comment on above: Performed By: #### C MP, 73641-2, CBCA, 78124-7, 52632-0, PINR, 10142-4 ####[facility] ([id number])[address] [place] [address] 87011 AST [Catalytic activity/Vol] 62 U/L High 0-41 [facility] Comment on above: Performed By: #### C MP, 14160-7, CBCA, 69613-5, 09694-1, PINR, 77273-5 ####[facility] ([id number])[address] [place] [address] 60547 Bilirubin [Mass/Vol] 0.5 mg/dL Normal 0.3-1.2 [facility] Comment on above: Performed By: #### C MP, 57416-0, CBCA, 27658-7, 83952-5, PINR, 12694-2 ####[facility] ([id number])[address] [place] [address] 27760 Calcium [Mass/Vol] 8.8 mg/dL Normal 8.5-10.5 [facility] Comment on above: Performed By: #### C MP, 52136-6, CBCA, 64056-0, 98567-3, PINR, 56943-7 ####[facility] ([id number])[address] [place] [address] 69773 Chloride [Moles/Vol] 107 mmol/L Normal 98-109 [facility] Comment on above: Performed By: #### C MP, 94207-0, CBCA, 35180-7, 10697-3, PINR, 13553-2 ####[facility] ([id number])[address] [place] [address] [place] [address] CO2 [Moles/Vol] 23 mmol/L Normal 22-32 [facility] Comment on above: Performed By: #### C MP, 44374-9, CBCA, 26749-2, 99575-7, PINR, 07115-5 ####[facility] ([id number])[address] [place] [address] 05407 Creatinine [Mass/Vol] 1.50 mg/dL High 0.70-1.20 [facility] Comment on above: Result Comment: METH OD TRACEABLE TO IDMS STANDARD Performed By: #### C MP, 02501-1, CBCA, 61757-8, 58080-0, PINR, 14573-4 ####[facility] ([id number])[address] [place] [address] 73372 GFR/1.73 sq M.predicted among non-blacks MDRD (S/P/Bld) [Vol rate/Area] 48 mL/min/{1.73_m2} Low >59 [facility] Comment on above: Result Comment: Reported eGFR is based on the CKD-EPI 2020 equation that does not use a race coefficient. Performed By: #### C KARISHMA, 05115-7, CBCA, 65779-0, 05674-1, PINR, 73583-0 ####[facility] ([id number])[address] [place] [address] 00092 Glucose [Mass/Vol] 358 mg/dL High 65-99 [facility] Comment on above: Performed By: #### C KARISHMA, 09222-5, CBCA, 08737-3, 16399-2, PINR, 34676-3 ####[facility] ([id number])[address] [place] [address] 48713 Potassium [Moles/Vol] 4.4 mmol/L Normal 3.5-5.0 [facility] Comment on above: Performed By: #### C MP, 14023-3, CBCA, 57502-1, 85434-1, PINR, 19813-1 ####[facility] ([id number])[address] [place] [address] 22515 Protein [Mass/Vol] 7.0 g/dL Normal 6.0-8.0 [facility] Comment on above: Performed By: #### C KARISHMA, 07315-3, CBCA, 10160-2, 98998-5, PINR, 72393-2 ####[facility] ([id number])[address] [place] [address] 90276 Sodium [Moles/Vol] 137 mmol/L Normal 134-146 [facility] Comment on above: Performed By: #### C MP, 51559-6, CBCA, 29174-6, 17413-1, PINR, 24399-4 ####[facility] ([id number])[address] [place] [address] 11476 Urea nitrogen [Mass/Vol] 26 mg/dL Normal 5-27 [facility] Comment on above: Performed By: #### C MP, 47854-5, CBCA, 74137-7, 15975-9, PINR, 00089-0 ####[facility] ([id number])[address] [place] [address] 14197 Clinical Pathology Blood Sme ar Reviewon 04-26-2024 Clinical Pathology Blood Smear Review Normal [facility] Comment on above: Result Comment: [facility] [facility] [address] [place] [address] Clinical Pathology Report Patient Name:ILA MOREJON:1945 (Age: 78)Gender:MTaken:04/26/2024eported:04/28/2024hysician(s):Nadiya Mascorro M.D. ([phone])Copy To: Rec. #:[id number]: #[id number] Final Pathologic Diagnosis Peripheral blood smear: Absolute lymphocytosis. Mild neutrophilia, favor reactive. Normochromic normocytic anemia. Comment: The finding of absolute lymphocytosis with increased numbers of smudge cells is concerning for involvement by a lymphoproliferative disorder such as chronic lymphocytic leukemia. Additional evaluation with flow cytometric analysis of the peripheral blood and serum immunoglobulin study is suggested. Report Electronically Signed Out nxk/04/28/2024Shawn Hernandez MD Interpretation performed at [employer], [address] [place], [place] [address], License number: [id number]. Clinical History J96.01, J96.02, J81.0, I16.1, I21.4, R06.02. BLOOD SMEAR EVALUATION CBC (1821): WBC: 26.4 x 10E9/L. RBC: 3.77 x 10E12/L. Hgb: 11.7 g/dL. Platelets: 198 x 10E9/L. MCV: 91 fL. RDW: 13.7%. Automated differential: Neutrophils: 15.5 x 10E9/L. Lymphocytes: 10.9 x 10E9/L. Basophils: 0.3 x 10E9/L. Blood smear: WBC: The neutrophilic leukocytes consists of bands apologies with no abnormal immature cells. The lymphocytes are increased and are composed of uniform small to intermediate sized lymphocytes. There is an increased in the number of smudge cells. RBC: The red blood cells are essentially normochromic and normocytic with slight increase in rouleaux formation. There is no significant variation in cell size of shape. Polychromatophilic cells are within normal limit. Platelets: The platelets are adequate. Specimen(s) Received Blood Smear Review Fee Codes(s): 1; 33605 Glucose Glucometer ([facility]) [M ass/Vol]on 04-26-2024 Glucose [Mass/Vol] 211 mg/dL High 65-99 [facility] Glucose [Mass/Vol] 258 mg/dL High 65-99 [facility] Glucose [Mass/Vol] 304 mg/dL High 65-99 [facility] Heparin unfractionated Chrom ogenic method Qn (PPP)on 04-26-2024 ANTI XA UFH <0.04 Low 0.30-0.70 [facility] Comment on above: Result Comment: Opti mal time for testing is 6 hrs post dosage This test is specific for monitoring patients on UFH, and is not recommended for use with other Anti-Xa medications. Performed By: #### C ABIGAIL, CMP, 01261-9, 22503-1, 30416-4 #### [facility] ([id number]) [address] [place] [address] ANTI XA UFH 0.28 IU/mL Low 0.30-0.70 [facility] Comment on above: Result Comment: Opti mal time for testing is 6 hrs post dosage This test is specific for monitoring patients on UFH, and is not recommended for use with other Anti-Xa medications. Performed By: #### C ABIGAIL CMP, 44746-0, 01803-5, 60098-3 #### [facility] ([id number]) [address] [place] [address] 58646 ANTI XA UFH 0.26 IU/mL Low 0.30-0.70 [facility] Comment on above: Result Comment: Opti mal time for testing is 6 hrs post dosage This test is specific for monitoring patients on UFH, and is not recommended for use with other Anti-Xa medications. Performed By: #### C LEÓN HAYES, 67675-7, 01058-7, 84699-1 #### [facility] ([id number]) [address] [place] [address] 49700 MAGNESIUMon 04-26-2024 Magnesium [Mass/Vol] 2.2 mg/dL Normal 1.8-2.6 [facility] Comment on above: Performed By: #### C MP, 50511-8, CBCA, 14429-1, 20542-7, PINR, 50082-6 ####[facility] ([id number])[address] [place] [address] 05672 Natriuretic peptide B [Mass/ Vol]on 04-26-2024 Natriuretic peptide B (Bld) [Mass/Vol] 1120 pg/mL High <100.0 [facility] Comment on above: Performed By: #### C MP, 80381-1, CBCA, 33689-1, 07694-1, PINR, 98613-9 ####[facility] ([id number])[address] [place] [address] 00310 PROTIME AND INRon 04-26-2024 INR Coag (PPP) [Relative time] 1.0 {INR} Normal 0.8-1.1 [facility] Comment on above: Performed By: #### C MP, 95340-6, CBCA, 33088-9, 93502-8, PINR, 09270-0 ####[facility] ([id number])[address] [place] [address] 73266 PT Coag (PPP) [Time] 11.9 s Normal 9.8-13.2 [facility] Comment on above: Result Comment: NEW REFERENCE RANGE Performed By: #### C MP, 16231-5, CBCA, 13187-8, 59534-6, PINR, 46527-7 ####[facility] ([id number])[address] [place] [address] [address] comment (Bld) [Interp]on 04-26-2024 STAFF REVIEW NOTE Normal [facility] Comment on above: Result Comment: [facility] [address] [place] [address] Clinical Pathology Report Patient Name:ILA MOREJON:1945 (Age: 78)Gender:MTaken:04/26/2024eported:04/28/2024hysician(s):Nadiya Mascorro M.D. ([phone])Copy To: Rec. #:[id number]: #[id number] Final Pathologic Diagnosis Peripheral blood smear: Absolute lymphocytosis. Mild neutrophilia, favor reactive. Normochromic normocytic anemia. Comment: The finding of absolute lymphocytosis with increased numbers of smudge cells is concerning for involvement by a lymphoproliferative disorder such as chronic lymphocytic leukemia. Additional evaluation with flow cytometric analysis of the peripheral blood and serum immunoglobulin study is suggested. Report Electronically Signed Out nxk/04/28/2024Shawn Hernandez MD [facility] [place] [place] [facility] License number: [id number]. Clinical History J96.01, J96.02, J81.0, I16.1, I21.4, R06.02. BLOOD SMEAR EVALUATION CBC (1821): WBC: 26.4 x 10E9/L. RBC: 3.77 x 10E12/L. Hgb: 11.7 g/dL. Platelets: 198 x 10E9/L. MCV: 91 fL. RDW: 13.7%. Automated differential: Neutrophils: 15.5 x 10E9/L. Lymphocytes: 10.9 x 10E9/L. Basophils: 0.3 x 10E9/L. Blood smear: WBC: The neutrophilic leukocytes consists of bands apologies with no abnormal immature cells. The lymphocytes are increased and are composed of uniform small to intermediate sized lymphocytes. There is an increased in the number of smudge cells. RBC: The red blood cells are essentially normochromic and normocytic with slight increase in rouleaux formation. There is no significant variation in cell size of shape. Polychromatophilic cells are within normal limit. Platelets: The platelets are adequate. Specimen(s) Received Blood Smear Review Fee Codes(s): 1; 96893 Performed By: #### C ABIGAIL, [facility], 84675-1, 34155-4, 49964-5 #### [facility] ([id number]) [address] [place] [address] 61323 Procalcitonin IA [Mass/Vol]o n 04-26-2024 PROCALCITONIN 0.07 ng/mL High <0.05 [facility] Comment on above: Result Comment: NOTE <0.50 ng/mL - Low risk of severe sepsis and/or septic shock. <2.00 ng/mL - Recommend retesting within 6-24 hours. >2.00 ng/mL - High risk of sepsis and/or septic shock. Performed By: #### 7 5241-0, 15214-2 ####[facility] ([id number])[address] [place] [address] 04535 RESP PATHOGENS/EGTT-FeE-5kb 04-26-2024 Respiratory pathogens DNA and RNA panel VINCE+non-probe (Nph) SPECIMEN SOURCE NASO PHARYNX ADENOVIRUS Not detected (qualifier value) CORONAVIRUS 229E Not detected (qualifier value) CORONAVIRUS HKU1 Not detected (qualifier value) CORONAVIRUS NL63 Not detected (qualifier value) CORONAVIRUS OC43 Not detected (qualifier value) HUMAN METAPNEUVIRUS Not detected (qualifier value) RHINO/ENTEROVIRUS Not detected (qualifier value) INFLUENZA A Not detected (qualifier value) INFLUENZA B Not detected (qualifier value) PARAINFLUENZA 1 Not detected (qualifier value) PARAINFLUENZA 2 Not detected (qualifier value) PARAINFLUENZA 3 Not detected (qualifier value) PARAINFLUENZA 4 Not detected (qualifier value) RESP SYNCYTIAL VIRUS Not detected (qualifier value) BORD PARAPERTUSSIS Not detected (qualifier value) BORDETELLA PERTUSSIS Not detected (qualifier value) CHLAM.PNEUMONIAE Not detected (qualifier value) MYCO. PNEUMONIAE Not detected (qualifier value) SARS CoV 2 Not detected (qualifier value) NOTE The wriplFire Respiratory Panel 2.1 (RP2.1) is a multiplexed nucleic acid test intended for the simultaneous qualitative detection and differentiation of nucleic acid from multiple viral and bacterial respiratory organisms, including nucleic acid from Severe Acute Respiratory Syndrome Coronavirus 2 (SARS-CoV-2), in nasopharyngeal swabs obtained from individuals suspected of COVID-19 by their healthcare provider. Testing is limited to laboratories certified under the Clinical Laboratory Improvement Amendments of 1988 (CLIA), to perform high complexity or moderate complexity tests. SARS-CoV-2 RNA and nucleic acids from the other respiratory viral and bacterial organisms identified by this test are generally detectable in nasopharyngeal swabs during the acute phase of infection. The detection and identification of specific viral and bacterial nucleic acids from individuals exhibiting signs and/or symptoms of respiratory infection is indicative of the presence of the identified microorganism and aids in the diagnosis of respiratory infection if used in conjunction with other clinical and epidemiological information. Positive results are indicative of the presence of the identified organism, but do not rule out co-infection with other pathogens. The agent(s) detected by the BioFire RP2.1 may not be the definite cause of disease and clinical correlation with patient history and other diagnostic information is necessary to determine patient infection status. Negative results in the setting of a respiratory illness may be due to infection with pathogens not detected by this test, or lower respiratory tract infection that may not be detected by a nasopharyngeal specimen. Negative results do not preclude SARS-CoV-2 infection and should not be used as the sole basis for patient management decisions. Negative MILTON-CoV-2 results must be combined with clinical observations, patient history and epidemiological information. Negative results for other organisms identified by the test may require additional laboratory testing when evaluating a patient with possible respiratory tract infection. Normal [facility] Comment on above: Performed By: #### C BCA, CMP, 88733-6, 27817-9, 14215-5 #### [facility] ([id number]) [address] [place] [address] 53728 Troponin I.cardiac High sens itivity method [Mass/Vol]on 04-26-2024 TROPONIN I, HIGH SENSITIVITY 7140 ng/L Critically high <21 [facility] Comment on above: Result Comment: Elevations of hs-Troponin may be due to causes other than myocardial ischemia. Recommend serial hs-Troponin testing be performed. For the initial evaluation and management of chest pain patients, refer to the algorithms linked below. Emergency Patient: [email or web address]& uh=acaea Inpatient: [email or web address]& uh=acaea Performed By: #### C BCA, CMP, 05596-0, 15603-4, 54383-1 #### [facility] ([id number]) [address] [place] [address] 41090 3 HOUR TROP I, HIGH SENSITIVITY 6130 ng/L Critically high <21 [facility] Comment on above: Result Comment: Elevations of hs-Troponin may be due to causes other than myocardial ischemia. Recommend serial hs-Troponin testing be performed. For the initial evaluation and management of chest pain patients, refer to the algorithms linked below. Emergency Patient: [email or web address]& uh=acaea Inpatient: [email or web address]&[email or web address]& uh=acaea Performed By: #### C BCA, CMP, 88458-7, 87274-3, 84796-0 #### [facility] ([id number]) [address] [place] [address] 12384 1 HOUR TROP I, HIGH SENSITIVITY 1586 ng/L Critically high <21 [facility] Comment on above: Result Comment: Elevations of hs-Troponin may be due to causes other than myocardial ischemia. Recommend serial hs-Troponin testing be performed. For the initial evaluation and management of chest pain patients, refer to the algorithms linked below. Emergency Patient: [email or web address]& uh=acaea Inpatient: [email or web address]& uh=acaea Performed By: #### C BCA, CMP, 11218-7, 23106-5, 38832-1 #### [facility] ([id number]) [address] [place] [address] 86736 TROPONIN I, HIGH SENSITIVITY 1129 ng/L Critically high <21 [facility] Comment on above: Result Comment: Elevations of hs-Troponin may be due to causes other than myocardial ischemia. Recommend serial hs-Troponin testing be performed. For the initial evaluation and management of chest pain patients, refer to the algorithms linked below. Emergency Patient: [email or web address]& uh=acaea Inpatient: [email or web address]& uh=acaea Performed By: #### C MP, 84420-3, CBCA, 92725-4, 57747-2, PINR, 99195-0 ####[facility] ([id number])[address] [place] [address] 01721 VENOUS BLOOD GASon 4 LATASHA'S TEST Normal [facility] Comment on above: Performed By: #### V BG ####[facility] ([id number])[address] [place] [address] 76081 BASE,DEFICIT 5.0 MMOL/L High 0.0-2.0 [facility] Comment on above: Performed By: #### V BG ####[facility] ([id number])[address] [place] [address] [place] [address] Body temperature 98.6 [degF] Normal 37.0 [facility] Comment on above: Performed By: #### V BG ####[facility] ([id number])[address] [place] [address] 96838 HCO3 (Bld) [Moles/Vol] 24.3 mmol/L High 20.0-24.0 [facility] Comment on above: Performed By: #### V BG ####[facility] [facility] ([id number])[address] [place] [address] 30760 INSP. O2 CONC. 50 % Normal [facility] Comment on above: Performed By: #### V BG ####[facility] ([id number])[address] [place] [address] 81918 Oxygen saturation in Blood 72.0 % Low >80.0 [facility] Comment on above: Performed By: #### V BG ####[facility] ([id number])[address] [place] [address] 49514 OXYGEN SOURCE NPPV Normal [facility] Comment on above: Performed By: #### V BG ####[facility] ([id number])[address] [place] [address] 83248 PCO2, VENOUS 62.7 MMHG High 35-50 [facility] Comment on above: Performed By: #### V BG ####[facility] ([id number])[address] [place] [address] 82681 PH, VENOUS 7.197 Low 7.320-7.420 [facility] Comment on above: Performed By: #### V BG ####[facility] ([id number])[address] [place] [address] 41712 PO2, VENOUS 47 MMHG Normal 30-50 [facility] Comment on above: Performed By: #### V BG ####[facility] ([id number])[address] [place] [address] 93198 SAMPLE SITE N/A Normal [facility] Comment on above: Performed By: #### V BG ####[facility] ([id number])[address] [place] [address] 43387 SAMPLE TYPE VENOUS Normal [facility] Comment on above: Performed By: #### V BG ####[facility] ([id number])[address] [place] [address] 94182 XR CHEST 1 VWon 04-26-2024 XR CHEST 1 VW XR CHEST 1 VW XR CHEST 1 VW 04/26/2024 1:56 AM INDICATION: SOB, shortness of breath, dyspnea COMPARISON: XR chest 03/05/2024 TECHNIQUE: AP upright view(s) obtained. FINDINGS: Respiratory: No pneumothorax or pleural effusions. Moderate pulmonary vascular and interstitial prominence. Cardiomediastinum: Nonenlarged. IMPRESSION: * Moderate pulmonary vascular congestion and interstitial edema. Superimposed pneumonia not excluded. Approved by Resident: Federico Donaldson MD on 04/26/2024 2:03 AM Ariel Maurer MD have personally reviewed the image(s) and agree with and/or edited the report Finalized by Ariel Finn MD on 04/26/2024 2:13 AM Normal [facility] aPTT Coag (PPP) [Time]on aPTT Coag (Bld) [Time] 34 s Normal 26-37 [facility] Comment on above: Result Comment: NEW REFERENCE RANGE Performed By: #### [place], [address]-8, CBCA, 20866-9, 77195-3, PINR, 86889-9 ####[facility] ([id number])[address] [place] [address] CT angio abd aorta runoffon 04-20-2024 CT angio abd aorta runoff [facility] Main [place] [address] [place] [address] Scan Report Signed Patient: Ila Morejon MR#: [id number] 201 : 1945 Acct:[id number] Age/Sex: 78 / M ADM Date: 04/20/24 Loc: CT Room: Type: [facility] Attending Dr: Luiz Glass MD Copies to: Luiz Glass MD Ordering Provider: Luiz Glass MD Date of Service: 04/20/24 CT/CT angio abd aorta runoff: I70.213 - Atherosclerosis of unga arteries of extremiti... CTA abdomen, pelvis, and bilateral lower extremities . CLINICAL DATA: Left leg falling asleep.. TECHNIQUE: Intravenous contrast-enhanced CT angiography of the abdomen, pelvis, and bilateral lower extremities was performed. Axial, sagittal, coronal, and 3D-dimensional reconstructions were created and reviewed. This CT exam was performed using one or more of the following dose reduction techniques: Automated exposure control, adjustment of the mA and/or kV according to patient size, or use of iterative reconstruction technique. COMPARISON: None. FINDINGS: Lung Bases: Trace bilateral pleural effusions with compressive atelectasis/scarring involving the lower lobes. Organs:Liver gallbladder pancreas and adrenal glands appear unremarkable. Splenic granulomas. No enhancing renal mass or hydronephrosis. Abdominal aorta demonstrates moderate calcification without aneurysm, dissection or rupture. Moderate calcification of the iliac vasculature without critical stenosis or occlusion. No critical stenosis or occlusion involving the major dural visceral branches of the abdominal aorta.[ GI: Stomach is grossly unremarkable. Small bowel appears nondilated. No acute colonic abnormality is seen. Appendix is normal.[ Pelvis:[Prostatomegaly . Urinary bladder is grossly unremarkable.] Peritoneum/Retroperito neum:No free air or free fluid or lymphadenopathy.[ Abd wall/Bones:Abdominal wall demonstrates no acute findings. Osseous structures demonstrate degenerative change.[ Lower extremities: Left: Moderate calcification of the common femoral artery without critical stenosis or occlusion. Deputy [employer] branches appear patent. SFA demonstrates mild calcification throughout its course without critical stenosis or occlusion. Popliteal artery appears unremarkable. Anterior tibial artery demonstrates mild calcification without occlusion. Dorsalis pedis artery appears patent. Tibioperoneal trunk appears patent. Mild calcification involving the posterior tibial artery which appears patent throughout its course. Peroneal artery appears patent. There is soft tissue swelling predominantly involving the distal lower extremity. No soft tissue gas or fluid collection is seen. Musculature appears atrophic. Osseous structures demonstrate degenerative change. Right: Moderate calcification of the common femoral artery without critical stenosis or occlusion. Deputy [employer] Attorney branches appear patent. SFA demonstrates mild calcification throughout its course without critical stenosis or occlusion. Popliteal artery demonstrates mild calcification without occlusion. Anterior tibial artery demonstrates mild calcification without occlusion. Dorsalis pedis artery appears patent. Tibioperoneal trunk demonstrates mild calcification but appears patent. Mild calcification involving the posterior tibial artery which appears patent throughout its course. Peroneal artery appears patent. There is soft tissue swelling predominantly involving the distal left lower extremity. No soft tissue gas or fluid collection is seen. Musculature appears atrophic. Osseous structures demonstrate degenerative change. CT/CT angio abd aorta runoff IMPRESSION: No acute process seen within the abdomen or pelvis. No critical stenosis or occlusion involving the arterial vessels of the lower extremities. Trace bilateral pleural effusions. Impression dictated by: Addy Son Jr., D.OShruti04/20/2024 2:43 PM Dictation Location: [place] [address] Transcribed By: [facility] 04/20/24 1443 Dictated By: Addy Son Jr, DO 04/20/24 1433 Signed By: 04/20/24 1443 Normal [facility] ISTAT XRay CREon 04-20-2024 ISTAT GFR 47.951 Normal [facility] Comment on above: Result Comment: PERF ORMED BY: [place] [address] PATHOLOGIST [employer]ILROAD TRACK INSPECTOR MATT [place] M.D. Performed By: #### I SCRE #### [address] No Panel InformationOrdered By: Luiz Glass on 04-20-2024 Bedside Estimated GFR (eGFR) 47.951 [facility] Whole blood creatinine measu rementOrdered By: Luiz Glass on 04-20-2024 Creatinine [Mass/Vol] 1.5 mg/dL High 0.6-1.3 [facility] Comment on above: ER/ESD physician is notified/shown all ISTAT results.Critical values may be confirmed by laboratory testing ifdeemed necessary by ER attending doctor. Result Comment: ER/E SD physician is notified/shown all ISTAT results. Critical values may be confirmed by laboratory testing if deemed necessary by ER attending doctor. Performed By: #### I SCRE #### [address] Office Visiton 04-12-2024 Follow-up visit [id number] Ila Morejon 1945 M Date Provider Department Center 04/12/2024 271-SABINA [facility] C[facility] No family history on file Level of Service:38623 [facility] OFFICE/OUTPATIENT NEW HIGH MDM 60 MINUTES Normal [facility] US art pvr/post Camille 024 US art pvr/post LE [facility] Main [place] [id number] Ultrasound Report Signed Patient: Ila Morejon MR#: [id number] 201 : 1945 Acct:[id number] Age/Sex: 78 / M ADM Date: 04/07/24 Loc: Room: [facility] Attending Dr: Luiz Glass MD Ordering Provider: Luiz Glass MD Date of Service: 04/07/24 US/US art pvr/post LE: I70.213 - Atherosclerosis of unga arteries of extremiti... Copies to: Luiz Glass [...] Luiz Glass MD04/09/2024 11:53 AM Dictation Location: [place] [address] Tech: Lucie Sainz Transcribed By: ZITA 04/09/24 1153 Dictated By: Luiz Glass MD 04/09/24 1151 Signed By: 04/09/24 1153 Normal [facility] CBC AND AUTO DIFFon 03-05-20 ABSOLUTE BASOPHIL 0.2 X10E9/L Normal 0.0-0.2 [facility] Comment on above: Performed By: #### C LEÓN HAYES, 76383-7, 48231-6, 18388-2 #### [facility] ([id number]) [address] [place] [address] 06265 Basophils/100 WBC (Bld) 1.0 % Normal [facility] Comment on above: Performed By: #### C LEÓN HAYES, 14458-2, 32757-9, 06434-1 #### [facility] ([id number]) [address] [place] [address] 70756 Erythrocyte distribution width (RBC) [Ratio] 13.6 % Normal 11.5-15.0 [facility] Comment on above: Performed By: #### C BCA, CMP, 77829-5, 64601-2, 34416-5 #### [facility] ([id number]) [address] [place] [address] 92997 Hematocrit (Bld) [Volume fraction] 30.4 % Low 39-49 [facility] Comment on above: Performed By: #### C BCA, CMP, 88918-9, 03957-3, 50075-3 #### [facility] ([id number]) [address] [place] [address] 88309 Hemoglobin (Bld) [Mass/Vol] 10.5 g/dL Low 13.0-17.0 [facility] Comment on above: Performed By: #### C BCA, CMP, 40195-4, 24547-0, 78156-3 #### [facility] ([id number]) [address] [place] [address] 39719 Lymphocytes (Bld) [#/Vol] 8.6 10*3/uL High 1.0-3.5 [facility] Comment on above: Performed By: #### C BCA, CMP, 57571-2, 40764-7, 85643-9 #### [facility] ([id number]) [address] [place] [address] 62150 Lymphocytes/100 WBC (Bld) 47.0 % Normal [facility] Comment on above: Performed By: #### C BCA, CMP, 06814-1, 46839-8, 35226-9 #### [facility] ([id number]) [address] [place] [address] 71260 MCH (RBC) [Entitic mass] 31.2 pg Normal 27-34 [facility] Comment on above: Performed By: #### C BCA, CMP, 81426-9, 92166-9, 04016-3 #### [facility] ([id number]) [address] [place] [address] 99499 MCHC (RBC) [Mass/Vol] 34.7 g/dL Normal 32-36 [facility] Comment on above: Performed By: #### C ABIGAIL, CMP, 31278-5, 81063-0, 71759-4 #### [facility] ([id number]) [address] [place] [address] 86060 MCV (RBC) [Entitic vol] 90 fL Normal 80-100 [facility] Comment on above: Performed By: #### C ABIGAIL, CMP, , 87039-6, 59251-9 #### [facility] ([id number]) [address] [place] [address] 20541 Monocytes (Bld) [#/Vol] 0.7 10*3/uL Normal 0-0.9 [facility] Comment on above: Performed By: #### Rose Marie HAYES, CMP, , 19532-6, 94914-5 #### [facility] ([id number]) [address] [place] [address] 87258 Monocytes/100 WBC (Bld) 4.0 % Normal [facility] Comment on above: Performed By: #### C ABIGAIL, CMP, , 87517-2, 53693-0 #### [facility] ([id number]) [address] [place] [address] 28790 Neutrophils (Bld) [#/Vol] 8.7 10*3/uL High 1.5-6.6 [facility] Comment on above: Performed By: #### Rose Marie HAYES, CMP, , 58922-0, 97417-7 #### [facility] ([id number]) [address] [place] [address] 52819 Platelet mean volume (Bld) [Entitic vol] 8.9 fL Normal 7-12 [facility] Comment on above: Performed By: #### C BCA, CMP, 70911-0, 14351-6, 99596-8 #### [facility] ([id number]) [address] [place] [address] 68486 Platelets (Bld) [#/Vol] 165 10*3/uL Normal 150-450 [facility] Comment on above: Performed By: #### C BCA, CMP, 74618-4, 85956-3, 52837-7 #### [facility] ([id number]) [address] [place] [address] 08533 RBC COUNT 3.38 X10E12/L Low 4.10-5.70 [facility] Comment on above: Performed By: #### C BCA, CMP, 81157-5, 12430-5, 13778-0 #### [facility] ([id number]) [address] [place] [address] 13782 RBC morphology finding Nom (Bld) NORMAL Normal [facility] Comment on above: Performed By: #### C BCA, CMP, 20589-9, 24455-0, 39155-8 #### [facility] ([id number]) [address] [place] [address] 83456 SEG NEUTROPHIL 48.0 % Normal [facility] Comment on above: Performed By: #### C BCA, CMP, 39696-8, 61683-3, 13776-8 #### [facility] ([id number]) [address] [place] [address] 20790 WBC (Bld) [#/Vol] 18.2 10*3/uL High 4.0-11.0 [facility] Comment on above: Performed By: #### C BCA, CMP, 64057-1, 26536-7, 69958-4 #### [facility] ([id number]) [address] [place] [address] 77167 COMPREHENSIVE METABOLIC PANE Woody 03-05-2024 Albumin [Mass/Vol] 3.4 g/dL Normal 3.2-5.3 [facility] Comment on above: Performed By: #### C BCA, CMP, 71362-9, 22007-5, 43763-4 #### [facility] ([id number]) [address] [place] [address] 07622 ALP [Catalytic activity/Vol] 73 U/L Normal 39-130 [facility] Comment on above: Performed By: #### C BCA, CMP, 62084-8, 26020-7, 45222-0 #### [facility] ([id number]) [address] [place] [address] 78075 ALT [Catalytic activity/Vol] 22 U/L Normal 0-40 [facility] Comment on above: Performed By: #### C BCA, CMP, 51798-2, 33381-1, 01753-4 #### [facility] ([id number]) [address] [place] [address] 21818 Anion gap [Moles/Vol] 6 mmol/L Normal 5-15 [facility] Comment on above: Performed By: #### C BCA, CMP, 78727-5, 55026-2, 27334-3 #### [facility] ([id number]) [address] [place] [address] 65085 AST [Catalytic activity/Vol] 25 U/L Normal 0-41 [facility] Comment on above: Performed By: #### C BCA, CMP, 34383-1, 58506-2, 56806-7 #### [facility] ([id number]) [address] [place] [address] 74584 Bilirubin [Mass/Vol] 0.8 mg/dL Normal 0.3-1.2 [facility] Comment on above: Performed By: #### C BCA, CMP, 08757-9, 72761-8, 35322-2 #### [facility] ([id number]) [address] [place] [address] 91976 Calcium [Mass/Vol] 8.6 mg/dL Normal 8.5-10.5 [facility] Comment on above: Performed By: #### C BCA, CMP, 51155-3, 86717-6, 45885-5 #### [facility] ([id number]) [address] [place] [address] 97393 Chloride [Moles/Vol] 106 mmol/L Normal 98-109 [facility] Comment on above: Performed By: #### C BCA, CMP, 73194-8, 23561-9, 43698-4 #### [facility] ([id number]) [address] [place] [address] 03866 CO2 [Moles/Vol] 21 mmol/L Low 22-32 [facility] Comment on above: Performed By: #### C BCA, CMP, 55460-2, 28986-2, 18248-6 #### [facility] ([id number]) [address] [place] [address] 30428 Creatinine [Mass/Vol] 1.83 mg/dL High 0.70-1.20 [facility] Comment on above: Result Comment: METH OD TRACEABLE TO IDMS STANDARD Performed By: #### C BCA, CMP, 29470-5, 74132-9, 07899-5 #### [facility] ([id number]) [address] [place] [address] 64420 GFR/1.73 sq M.predicted among non-blacks MDRD (S/P/Bld) [Vol rate/Area] 38 mL/min/{1.73_m2} Low >59 [facility] Comment on above: Result Comment: Reported eGFR is based on the CKD-EPI 2020 equation that does not use a race coefficient. Performed By: #### C BCA, CMP, 21160-5, 84966-9, 84606-0 #### [facility] ([id number]) [address] [place] [address] 09729 Glucose [Mass/Vol] 277 mg/dL High 65-99 [facility] Comment on above: Performed By: #### C BCA, CMP, 85198-8, 36676-4, 17601-3 #### [facility] ([id number]) [address] [place] [address] 09275 Potassium [Moles/Vol] 5.0 mmol/L Normal 3.5-5.0 [facility] Comment on above: Performed By: #### C BCA, CMP, 73418-2, 01020-7, 63757-3 #### [facility] ([id number]) [address] [place] [address] 48068 Protein [Mass/Vol] 5.9 g/dL Low 6.0-8.0 [facility] Comment on above: Performed By: #### C BCA, CMP, 50914-9, 83059-0, 18951-0 #### [facility] ([id number]) [address] [place] [address] 10367 Sodium [Moles/Vol] 133 mmol/L Low 134-146 [facility] Comment on above: Performed By: #### C BCA, CMP, 17415-5, 89449-5, 88627-0 #### [facility] ([id number]) [address] [place] [address] 60108 Urea nitrogen [Mass/Vol] 35 mg/dL High 5-27 [facility] Comment on above: Performed By: #### C BCA, CMP, 78953-5, 93440-7, 30516-3 #### [facility] ([id number]) [address] [place] [address] 10134 Glucose Glucometer (BldC) [M ass/Vol]on 03-05-2024 Glucose [Mass/Vol] 267 mg/dL High 65-99 [facility] MAGNESIUMon 03-05-2024 Magnesium [Mass/Vol] 2.0 mg/dL Normal 1.8-2.6 [facility] Comment on above: Performed By: #### C LEÓN HAYES, 60526-0, 45605-3, 31822-5 #### [facility] ([id number]) [address] [place] [address] 33610 Natriuretic peptide B [Mass/ Vol]on 03-05-2024 Natriuretic peptide B (Bld) [Mass/Vol] 440 pg/mL High <100.0 [facility] Comment on above: Performed By: #### C LEÓN HAYES, 76585-6, 78098-2, 82332-0 #### [facility] ([id number]) [address] [place] [address] 48827 Troponin I.cardiac High sens itivity method [Mass/Vol]on 03-05-2024 1 HOUR TROP I, HIGH SENSITIVITY 15 ng/L Normal <21 [facility] Comment on above: Performed By: #### 8 9579-7 #### [facility] ([id number]) [address] [place] [address] 49353 TROPONIN I, HIGH SENSITIVITY 15 ng/L Normal <21 [facility] Comment on above: Performed By: #### C LEÓN HAYES, 37765-7, 68527-7, 52267-1 #### [facility] ([id number]) [address] [place] [address] 81508 URN MACROSCOPIC NURon 2023 BILIRUBIN RALPH Negative Normal NEG [facility] Comment on above: Performed By: #### N UM #### [facility] ([id number]) [address] [place] [address] 08897 BLOOD/HGB RALPH Trace Abnormal NEG [facility] Comment on above: Performed By: #### N UM #### [facility] ([id number]) [address] [place] [address] 26012 GLUCOSE RALPH 100 mg/dL Abnormal NEG [facility] Comment on above: Performed By: #### N UM #### [facility] ([id number]) [address] [place] [address] [place] [address] KETONES RALPH Negative Normal NEG [facility] Comment on above: Performed By: #### N UM #### [facility] ([id number]) [address] [place] [address] [place] [address] LEUKOCYTE ESTERASE RALPH Negative Normal NEG [facility] Comment on above: Performed By: #### N UM #### [facility] ([id number]) [address] [place] [address] 35027 NITRITE RALPH Negative Normal NEG [facility] Comment on above: Performed By: #### N UM #### [facility] ([id number]) [address] [place] [address] [place] [address] PH RALPH 5.5 Normal 5.0-8.5 [facility] Comment on above: Performed By: #### N UM #### [facility] ([id number]) [address] [place] [address] 96271 PROTEIN RALPH >=300 Abnormal NEG [facility] Comment on above: Performed By: #### N UM #### [facility] ([id number]) [address] [place] [address] [place] [address] SPECIFIC GRAVITY RALPH >=1.030 Normal 1.003-1.035 [facility] Comment on above: Performed By: #### N UM #### [facility] ([id number]) [address] [place] [address] [place] [address] UROBILINOGEN RALPH 0.2 eu/dL Normal <1.1 [facility] Comment on above: Performed By: #### N UM #### [facility] ([id number]) [address] [facility] [place] [address] CBC W Auto Differential pane l (Bld)on 01-16-2024 Basophils (Bld) [#/Vol] 0.17 10*3/uL High <0.11 [place] Comment on above: Order Comment: Speci men Type: BLOOD SPECIMEN Ordering Facility: [facility] Address: [address] [place] [address] Performed By: #### 5 7021-8 #### [facility] CLIA [id number] [address] [place] [address] LAB CLIA [id number] [address] [place] [address] [place] Basophils/100 WBC (Bld) 1.0 % Normal [place] Comment on above: Order Comment: Speci men Type: BLOOD SPECIMEN Ordering Facility: [facility] Address: [address] [place] [address] Performed By: #### 5 7021-8 #### [facility] CLIA [id number] [address] [place] [address] LAB CLIA [id number] [address] [place] [address] [place] Differential cell count method Nom (Bld) Manual Normal [place] Comment on above: Order Comment: Speci men Type: BLOOD SPECIMEN Ordering Facility: [facility] Address: [address] [place] [address] Performed By: #### 5 7021-8 #### [facility] CLIA [id number] [address] [place] [address] LAB CLIA [id number] [address] [place] [address] [place] Eosinophils (Bld) [#/Vol] 0.17 10*3/uL Normal <0.46 [place] Comment on above: Order Comment: Speci men Type: BLOOD SPECIMEN Ordering Facility: [facility] Address: [address] [place] [address] Performed By: #### 5 7021-8 #### [facility] CLIA [id number] [address] [place] [address] LAB CLIA [id number] [address] [place], [place] [address] [place] Eosinophils/100 WBC (Bld) 1.0 % Normal [place] Comment on above: Order Comment: Speci men Type: BLOOD SPECIMEN Ordering Facility: [facility] Address: [address] [place] [address] Performed By: #### 5 7021-8 #### [facility] CLIA [id number] [address] [place] [address] LAB CLIA [id number] [address] [place] [address] [place] Erythrocyte distribution width (RBC) [Ratio] 13.4 % Normal 11.5-15.0 [place] Comment on above: Order Comment: Speci men Type: BLOOD SPECIMEN Ordering Facility: [facility] Address: [address] [place] [address] Performed By: #### 5 7021-8 #### [facility] CLIA [id number] [address] [place] [address] LAB CLIA [id number] [address] [place] [address] [place] Hematocrit (Bld) [Volume fraction] 30.8 % Low 39.0-51.0 [place] Comment on above: Order Comment: Speci men Type: BLOOD SPECIMEN Ordering Facility: [facility] Address: [address] [place] [address] Performed By: #### 5 7021-8 #### [facility] CLIA [id number] [address] [place] [address] LAB CLIA [id number] [address] [place] [address] [place] Hemoglobin (Bld) [Mass/Vol] 10.6 g/dL Low 13.0-17.0 [place] Comment on above: Order Comment: Speci men Type: BLOOD SPECIMEN [facility] [facility] Address: [address] [place] [address] Performed By: #### 5 7021-8 #### [facility] CLIA [id number] [address] [place] [address] LAB CLIA [id number] [address] [place] [address] [place] Lymphocytes (Bld) [#/Vol] 10.02 10*3/uL High 1.00-4.00 [place] Comment on above: Order Comment: Speci men Type: BLOOD SPECIMEN Ordering Facility: [facility] Address: [address] [place] [address] Performed By: #### 5 7021-8 #### [facility] CLIA [id number] [address] [place] [address] LAB CLIA [id number] [address] [place] [address] [place] Lymphocytes/100 WBC (Bld) 59.0 % Normal [place] Comment on above: Order Comment: Speci men Type: BLOOD SPECIMEN Ordering Facility: [facility] Address: [address] [place] [address] Performed By: #### 5 7021-8 #### [facility] CLIA [id number] [address] [place] [address] LAB CLIA [id number] [address] [place] [address] [place] MCH (RBC) [Entitic mass] 31.4 pg Normal 26.0-34.0 [place] Comment on above: Order Comment: Speci men Type: BLOOD SPECIMEN Ordering Facility: [facility] Address: [address] [place] [address] Performed By: #### 5 7021-8 #### [facility] CLIA [id number] [address] [place] [address] LAB CLIA [id number] [address] [place] [address] [place] MCHC (RBC) [Mass/Vol] 34.4 g/dL Normal 30.5-36.0 [facility] Comment on above: Order Comment: Speci men Type: BLOOD SPECIMEN Ordering Facility: [facility] Address: [address] [place] [address] Performed By: #### 5 7021-8 #### [facility] CLIA [id number] [address] [place] [address] LAB CLIA [id number] [address] [place] [address] [place] MCV (RBC) [Entitic vol] 91.1 fL Normal 80.0-100.0 [place] Comment on above: Order Comment: Speci men Type: BLOOD SPECIMEN Ordering Facility: [facility] Address: [address] [place] [address] Performed By: #### 5 7021-8 #### [facility] CLIA [id number] [address] [place] [address] LAB CLIA [id number] [address] [place] [address] [place] Monocytes (Bld) [#/Vol] 0.51 10*3/uL Normal <0.87 [place] Comment on above: Order Comment: Speci men Type: BLOOD SPECIMEN Ordering Facility: [facility] Address: [address] [place] [address] Performed By: #### 5 7021-8 #### [facility] CLIA [id number] [address] [place] [address] LAB CLIA [id number] [address] [place] [address] [place] Monocytes/100 WBC (Bld) 3.0 % Normal [place] Comment on above: Order Comment: Speci men Type: BLOOD SPECIMEN Ordering Facility: [facility] Address: [address] [place] [address] Performed By: #### 5 7021-8 #### [facility] CLIA [id number] [address] [place] [address] LAB CLIA [id number] [address] [place] [address] [place] Neutrophils (Bld) [#/Vol] 6.11 10*3/uL Normal 1.45-7.50 [place] Comment on above: Order Comment: Speci men Type: BLOOD SPECIMEN Ordering Facility: [facility] Address: [address] [place] [address] Performed By: #### 5 7021-8 #### [facility] CLIA [id number] [address] [place] [address] LAB CLIA [id number] [address] [place] [address] [place] Neutrophils/100 WBC (Bld) 36.0 % Normal [place] Comment on above: Order Comment: Speci men Type: BLOOD SPECIMEN Ordering Facility: [facility] Address: [address] [place] [address] Performed By: #### 5 7021-8 #### [facility] CLIA [id number] [address] [place] [address] LAB CLIA [id number] [address] [place] [address] [place] Nucleated RBC (Bld) [#/Vol] 10*3/uL Normal <0.01 [place] Comment on above: Order Comment: Speci men Type: BLOOD SPECIMEN Ordering Facility: [facility] Address: [address] [place] [address] Performed By: #### 5 7021-8 #### [facility] CLIA [id number] [address] [place] [address] LAB CLIA [id number] [address] [place] [address] [place] Nucleated RBC/100 WBC (Bld) [Ratio] 0.0 /100 WBC Normal [place] Comment on above: Order Comment: Speci men Type: BLOOD SPECIMEN Ordering Facility: [facility] Address: [address] [place] [address] Performed By: #### 5 7021-8 #### [facility] CLIA [id number] [address] [place] [address] LAB CLIA [id number] [address] [place] [address] [place] Ovalocytes LM Ql (Bld) Few Normal [facility] Comment on above: Order Comment: Speci men Type: BLOOD SPECIMEN Ordering Facility: [facility] Address: [address] [place] [address] Performed By: #### 5 7021-8 #### [facility] CLIA [id number] [address] [place] [address] LAB CLIA [id number] [address] [place] [address] [place] Platelet mean volume (Bld) [Entitic vol] 10.2 fL Normal 9.0-12.7 [place] Comment on above: Order Comment: Speci men Type: BLOOD SPECIMEN Ordering Facility: [facility] Address: [address] [place] [address] Performed By: #### 5 7021-8 #### [facility] CLIA [id number] [address] [place] [address] LAB CLIA [id number] [address] [place] [address] [place] Platelets (Bld) [#/Vol] 172 10*3/uL Normal 150-400 [place] Comment on above: Order Comment: Speci men Type: BLOOD SPECIMEN Ordering Facility: [facility] Address: [address] [place] [address] Performed By: #### 5 7021-8 #### [facility] CLIA [id number] [address] [place] [address] LAB CLIA [id number] [address] [place] [address] [place] Platelets Estimate (Bld) [#/Vol] Adequate Normal [place] Comment on above: Order Comment: Speci men Type: BLOOD SPECIMEN Ordering Facility: [facility] Address: [address] [place] [address] Performed By: #### 5 7021-8 #### [facility] CLIA [id number] [address] [place] [address] LAB CLIA [id number] [address] [place] [address] [place] Polychromasia LM Ql (Bld) Slight Normal [place] Comment on above: Order Comment: Speci men Type: BLOOD SPECIMEN Ordering Facility: [facility] Address: [address] [place] [address] Performed By: #### 5 7021-8 #### [facility] CLIA [id number] [address] [place] [address] LAB CLIA [id number] [address] [place] [address] [place] RBC (Bld) [#/Vol] 3.38 10*6/uL Low 4.20-6.00 [facility] Comment on above: Order Comment: Speci men Type: BLOOD SPECIMEN Ordering Facility: [facility] Address: [address] [place] [address] Performed By: #### 5 7021-8 #### [facility] CLIA [id number] [address] [place] [address] LAB CLIA [id number] [address] [place] [address] [place] RBC FRAGMENTS Few Abnormal None Seen [place] Comment on above: Order Comment: Speci men Type: BLOOD SPECIMEN Ordering Facility: [facility] Address: [address] [place] [address] Performed By: #### 5 7021-8 #### [facility] CLIA [id number] [address] [place] [address] LAB CLIA [id number] [address] [place] [address] [place] RED CELL MORPH Reviewed: see result s of individual morphologies Normal [place] Comment on above: Order Comment: Speci men Type: BLOOD SPECIMEN Ordering Facility: [facility] Address: [address] [place] [address] Performed By: #### 5 7021-8 #### [facility] CLIA [id number] [address] [place] [address] LAB CLIA [id number] [address] [place] [address] [place] WBC (Bld) [#/Vol] 16.98 10*3/uL High 3.70-11.00 [facility] Comment on above: Order Comment: Speci men Type: BLOOD SPECIMEN Ordering Facility: [facility] Address: [address] [place] [address] Performed By: #### 5 7021-8 #### [facility] CLIA [id number] [address] [place] [address] LAB CLIA [id number] [address] [place] [address] [place] CNOVSPon 01-16-2024 CNOVSP Visit (SP) Office (HEMASA) ILA MOREJON ([id number]) 1945 M Date Time Provider Department 01/16/24 2:45 PM FARAZ BECKHAM During your visit today, we recorded the following information about you: Temperature Pulse Respiration Blood pressure 97.2 degrees 45/minute 18/minute 132/35 Weight 73.2 kg Faraz Beckham MD 01/16/2024 2:33 PM Signed RTC in 6 months, with labs same day. Faraz Beckham MD 01/16/2024 6:22 PM Signed NAME: Ila Morejon CLINIC NO.: [id number] DATE OF SERVICE: January 16, 2024 (Lory) [...] Reverse Chronological Order 04/04/2023 - Admitted to [facility] with NSTEMI Underwent placement of drug eluting [...] Has been sleeping more, especially [facility]. Updated Visit, December 27, 2022: 13 year [...] lesions, wounds (more content not included)... Normal [place] Comprehensive metabolic 2000 panelon 01-16-2024 Albumin [Mass/Vol] 3.8 g/dL Low 3.9-4.9 [facility] Comment on above: Order Comment: Speci men Type: BLOOD SPECIMENOrdering Facility: [facility] Address: [address] [place] [address] Performed By: #### 2 4323-8, 2532-0 ####[facility] LABCLIA [id number] [place] [address] ALP [Catalytic activity/Vol] 84 U/L Normal 38-113 [place] Comment on above: Order Comment: Speci men Type: BLOOD SPECIMENOrdering Facility: [facility] Address: [address] [place] [address] Performed By: #### 2 4323-8, 2531-0 ####[facility] LABCLIA [id number] [place] [address] ALT [Catalytic activity/Vol] 34 U/L Normal 10-54 [place] Comment on above: Order Comment: Speci men Type: BLOOD SPECIMENOrdering Facility: [facility] Address: [address] [place] [address] Performed By: #### 2 432-8, 2531-0 ####[facility] LABCLIA [id number] [place] [address] Anion gap [Moles/Vol] 6 mmol/L Low 8-15 [facility] Comment on above: Order Comment: Speci men Type: BLOOD SPECIMENOrdering Facility: [facility] Address: [address] [place] [address] Performed By: #### 2 432-8, 2531-0 ####[facility] LABIA [id number] [place] [address] AST [Catalytic activity/Vol] 26 U/L Normal 14-40 [place] Comment on above: Order Comment: Speci men Type: BLOOD SPECIMENOrdering Facility: [facility] Address: [address] [place], [place] [address] Performed By: #### 2 4323-8, 2531-0 ####[facility] LABCLIA [id number] [place] [address] Bilirubin [Mass/Vol] 0.4 mg/dL Normal 0.2-1.3 [facility] Comment on above: Order Comment: Speci men Type: BLOOD SPECIMENOrdering Facility: [facility] Address: [address] [place], [place] [address] Performed By: #### 2 4323-8, 2-0 ####[facility] LABCLIA [id number] [place] [address] Calcium [Mass/Vol] 9.8 mg/dL Normal 8.5-10.2 [facility] Comment on above: Order Comment: Speci men Type: BLOOD SPECIMENOrdering Facility: [facility] Address: [address] [place] [address] Performed By: #### 2 4323-8, 2532-0 ####[facility] LABCLIA [id number] [place] [address] Chloride [Moles/Vol] 107 mmol/L Normal 98-107 [facility] Comment on above: Order Comment: Speci men Type: BLOOD SPECIMENOrdering Facility: [facility] Address: [address] [place] [address] Performed By: #### 2 4323-8, 2531-0 ####[facility] LABCLIA [id number] [place] [address] CO2 [Moles/Vol] 24 mmol/L Normal 22-30 [place] Comment on above: Order Comment: Speci men Type: BLOOD SPECIMENOrdering Facility: [facility] Address: [address] [place] [address] Performed By: #### 2 4323-8, 2531-0 ####[facility] LABCLIA [id number] [place] [address] Creatinine [Mass/Vol] 1.64 mg/dL High 0.73-1.22 [facility] Comment on above: Order Comment: Speci men Type: BLOOD SPECIMENOrdering Facility: [facility] Address: [address] [place] [address] Performed By: #### 2 4323-8, 2531-0 ####[facility] LABCLIA [id number] [place] [address] Creatinine and Glomerular filtration rate.predicted panel (S/P/Bld) 43 mL/min/1.73m??? Low >=60 [place] Comment on above: Order Comment: Speci men Type: BLOOD SPECIMENOrdering Facility: [facility] Address: [address] [id number] Result Comment: Silvana mated Glomerular Filtration Rate [...] GFR. Performed By: #### 2 4323-8, 2531-0 ####[facility] LABCLIA [id number] [place] [address] Glucose [Mass/Vol] 180 mg/dL High 74-99 [facility] Comment on above: Order Comment: Michael feng Type: BLOOD SPECIMENOrdering Facility: [facility] Address: [address] [place] [address] Result Comment: The [place] Diabetes Association (ADA) provides guidance for cutoff [...] Standards of Medical Care in Diabetes 2016, [place] [employer]. Diabetes Care. 2016.39(Suppl 1). Performed By: #### 2 4323-8, 0 ####[facility] LABCLIA [id number] [place] [address] Potassium [Moles/Vol] 5.2 mmol/L High 3.7-5.1 [facility] Comment on above: Order Comment: Michael feng Type: BLOOD SPECIMENOrdering Facility: [facility] Address: [address] [id number] Performed By: #### 2 4323-8, 2-0 ####[facility] LABCLIA [id number] [place] [address] Protein [Mass/Vol] 6.3 g/dL Normal 6.3-8.0 [facility] Comment on above: Order Comment: Speci men Type: BLOOD SPECIMENOrdering Facility: [facility] Address: [address] [place] [address] Performed By: #### 2 4323-8, 2532-0 ####[facility] LABCLIA [id number] [place] [address] Sodium [Moles/Vol] 137 mmol/L Normal 136-144 [facility] Comment on above: Order Comment: Speci men Type: BLOOD SPECIMENOrdering Facility: [facility] Address: [address] [place] [address] Performed By: #### 2 4323-8, 2531-0 ####[facility] LABCLIA [id number] [place] [address] Urea nitrogen [Mass/Vol] 29 mg/dL High 9-24 [place] Comment on above: Order Comment: Speci men Type: BLOOD SPECIMENOrdering Facility: [facility] Address: [address] [place] [address] Performed By: #### 2 4323-8, 2531-0 ####[facility] LABCLIA [id number] [place] [address] Ferritin [facility] Ferritin [Mass/Vol] 72.6 ng/mL Normal 30.3-565.7 [facility] Comment on above: Order Comment: Speci men Type: BLOOD SPECIMEN Ordering Facility: [facility] Address: [address] [place] [address] Performed By: #### 5 0190-8, 2132-9, 2276-4, 2284-8 #### [facility] CLIA [id number] [address] [place] [address] [place] Folate SerPl-mCncon 01-16-20 Folate [Mass/Vol] 18.7 ng/mL Normal >4.7 [facility] Comment on above: Order Comment: Speci men Type: BLOOD SPECIMEN Ordering Facility: [facility] Address: [address] [place] [address] Performed By: #### 5 0190-8, 9, 4, 2284-02 #### [facility] CLIA [id number] [address] [place] [address] [place] Iron and Iron binding capaci ty panelon 01-16-2024 Iron [Mass/Vol] 185 ug/dL Normal 41-186 [place] Comment on above: Order Comment: Speci men Type: BLOOD SPECIMEN Ordering Facility: [facility] Address: [address] [place] [address] Performed By: #### 5 0190-8, 9, 2275-10, 2284-02 #### [facility] CLIA [id number] [address] [place] [address] [place] Iron binding capacity [Mass/Vol] 363 ug/dL Normal 232-386 [place] Comment on above: Order Comment: Speci men Type: BLOOD SPECIMEN Ordering Facility: [facility] Address: [address] [place] [address] Performed By: #### 5 0190-8, 9, 2275-10, 2284-02 #### [facility] CLIA [id number] [address] [place] [address] [place] Iron/TIBC [Molar ratio] 51.0 % Normal 15.0-57.0 [place] Comment on above: Order Comment: Speci men Type: BLOOD SPECIMEN Ordering Facility: [facility] Address: [address] [place] [address] Performed By: #### 5 0190-8, 9, 2275-10, 2284-02 #### [facility] CLIA [id number] [address] [place] [address] [place] LDH SerPl-cCncon 01-16-2024 LDH [Catalytic activity/Vol] 182 U/L Normal 135-225 [place] Comment on above: Order Comment: Speci men Type: BLOOD SPECIMENOrdering Facility: [facility] Address: [address] [place] [address] Performed By: #### 2 4323-8, 2532-0 ####[facility] LABCLIA [id number] [place] [id number] Vit B12 SerPl-mCncon 024 Cobalamin (Vitamin B12) [Mass/Vol] 1200 pg/mL Normal 232-1245 [place] Comment on above: Order Comment: Speci men Type: BLOOD SPECIMEN Ordering Facility: [facility] Address: [address] [place] [address] Performed By: #### 5 0190-8, 2132-9, 2276-4, 2284-8 #### [facility] CLIA [id number] [address] [place] [address] [place] Woody 12-27-2023 L Specimen: [id number] Received: 12/29/23 Status: SOUT Refiliberto Num: [id number] Spec Type: Impression Subm Dr: Arminda Valverde DO Tissues: PATHPER Procedures: PATHREVIEW Age/ Patient Sex Location Account Attending Physician Ila Morejon 78/M LAB[facility] [id number] Arminda Valverde DO SPEC NUM: [id number] RECD: 12/29/23 STATUS: SOUT REQ NUM: [id number] JERRY: 12/27/[address]: Arminda Valverde DO ENTERED: 12/29/[address]: Collin Bernal SPEC TYPE: Impression DEPT: JAY Garay ENTERED BY: [id number] RECV BY: [id number] ORDERED: PATHREVIEW ORDERED: PATHREVIEW Pathologist Review Abnormal [...] The. Monocytopenia can be a manifestation of ---- Specimen: [id number] Received: 12/29/23 Status: [place] Num: [id number] Spec Type: Impression Subm Dr: Arminda Valverde DO Tissues: PATHPER Procedures: PATHREVIEW ---- Patient: Ila Morejon Julianna [id number] (Continued) ---- Specimen: [id number] Received: 12/29/23 (Continued) Pathologist Review (Continued) Signed (signature on file) Nicole Askew MD 12/29/23 1731 ---- Specimen: [id number] Received: 12/29/23 Status: RAMONA [place] Num: [id number] Spec Type: Impression Subm Dr: Arminda Valverde DO Tissues: PATHMARK Procedures: PATHREVIEW ---- Patient: Ila Morejon [id number] (Continued) ---- Specimen: [id number] Received: 12/29/23 (Continued) Pathologist Review (Continued) part of the myelosuppression, including hairy cell leukemia, otherwise is not very apparent in this CBC except mild chronic anemia -If the CBC abnormality continues to persist or progress, further hematology consultation, including flow cytometric assessment of the peripheral blood, may also be suggested as appropriate CPT: 55949 CBC No results available. ---- ---- Specimen: [id number] Received: 12/29/23 Status: RAMONA [place] Num: [id number] Spec Type: Impression Subm Dr: Arminda Valverde DO Tissues: PATHPER Procedures: PATHREVIEW ---- Patient: Ila Morejon [id number] (Continued) ---- Signed (signature on file) Nicole Askew MD 12/29/23 1731 Normal [facility] HGB A1C (GLYCO-HGB)on 2023 Glucose [Mass/Vol] 151 mg/dL Normal [facility] HbA1c (Bld) [Mass fraction] 6.9 % High 4.4-5.6 [facility] Comment on above: Result Comment: NOTE ADA [...] Basophils (Bld) [#/Vol] 0.14 10*3/uL High <0.11 [place] Comment on above: Order Comment: Speci men Type: BLOOD SPECIMEN Ordering Facility: [facility] Address: [address] [place] [address] Performed By: #### 5 7021-8 #### [facility] CLIA [id number] [address] [place] [address] LAB CLIA [id number] [address] [place] [address] [place] Basophils/100 WBC (Bld) 1.0 % Normal [place] Comment on above: Order Comment: Speci men Type: BLOOD SPECIMEN Ordering Facility: [facility] Address: [address] [place] [address] Performed By: #### 5 7021-8 #### [facility] CLIA [id number] [address] [place] [address] LAB CLIA [id number] [address] [place] [address] [place] Differential cell count method Nom (Bld) Manual Normal [place] Comment on above: Order Comment: Speci men Type: BLOOD SPECIMEN Ordering Facility: [facility] Address: [address] [place] [address] Performed By: #### 5 7021-8 #### [facility] CLIA [id number] [address] [place] [address] LAB CLIA [id number] [address] [place] [address] [place] Eosinophils (Bld) [#/Vol] 0.14 10*3/uL Normal <0.46 [place] Comment on above: Order Comment: Speci men Type: BLOOD SPECIMEN Ordering Facility: [facility] Address: [address] [place] [address] Performed By: #### 5 7021-8 #### [facility] CLIA [id number] [address] [place] [address] LAB CLIA [id number] [address] [place] [address] [place] Eosinophils/100 WBC (Bld) 1.0 % Normal [place] Comment on above: Order Comment: Speci men Type: BLOOD SPECIMEN Ordering Facility: [facility] Address: [address] [place] [address] Performed By: #### 5 7021-8 #### [facility] CLIA [id number] [address] [place] [address] LAB CLIA [id number] [address] [place] [address] [place] Erythrocyte distribution width (RBC) [Ratio] 13.2 % Normal 11.5-15.0 [place] Comment on above: Order Comment: Speci men Type: BLOOD SPECIMEN Ordering Facility: [facility] Address: [address] [place] [address] Performed By: #### 5 7021-8 #### [facility] CLIA [id number] [address] [place] [address] LAB CLIA [id number] [address] [place], [place] [address] [place] Hematocrit (Bld) [Volume fraction] 32.0 % Low 39.0-51.0 [place] Comment on above: Order Comment: Speci men Type: BLOOD SPECIMEN Ordering Facility: [facility] Address: [address] [place] [address] Performed By: #### 5 7021-8 #### [facility] CLIA [id number] [address] [place] [address] LAB CLIA [id number] [address] [place] [address] [place] Hemoglobin (Bld) [Mass/Vol] 10.8 g/dL Low 13.0-17.0 [place] Comment on above: Order Comment: Speci men Type: BLOOD SPECIMEN Ordering Facility: [facility] Address: [address] [place] [address] Performed By: #### 5 7021-8 #### [facility] CLIA [id number] [address] [place] [address] LAB CLIA [id number] [address] [place] [address] [place] Lymphocytes (Bld) [#/Vol] 7.95 10*3/uL High 1.00-4.00 [place] Comment on above: Order Comment: Speci men Type: BLOOD SPECIMEN Ordering Facility: [facility] Address: [address] [place] [address] Performed By: #### 5 7021-8 #### [facility] CLIA [id number] [address] [place] [address] LAB CLIA [id number] [facility] [place] [address] [place] Lymphocytes/100 WBC (Bld) 57.0 % Normal [place] Comment on above: Order Comment: Speci men Type: BLOOD SPECIMEN Ordering Facility: [facility] Address: [address] [place] [address] Performed By: #### 5 7021-8 #### [facility] CLIA [id number] [address] [place] [address] LAB CLIA [id number] [address] [place] [address] [place] MCH (RBC) [Entitic mass] 30.9 pg Normal 26.0-34.0 [place] Comment on above: Order Comment: Speci men Type: BLOOD SPECIMEN Ordering Facility: [facility] Address: [address] [place] [address] Performed By: #### 5 7021-8 #### [facility] CLIA [id number] [address] [place] [address] LAB CLIA [id number] [address] [place] [address] [place] MCHC (RBC) [Mass/Vol] 33.8 g/dL Normal 30.5-36.0 [facility] Comment on above: Order Comment: Speci men Type: BLOOD SPECIMEN Ordering Facility: [facility] Address: [address] [place] [address] Performed By: #### 5 7021-8 #### [facility] CLIA [id number] [address] [place] [address] LAB CLIA [id number] [address] [place] [address] [place] MCV (RBC) [Entitic vol] 91.7 fL Normal 80.0-100.0 [place] Comment on above: Order Comment: Speci men Type: BLOOD SPECIMEN Ordering Facility: [facility] Address: [address] [place] [address] Performed By: #### 5 7021-8 #### [facility] CLIA [id number] [address] [place], [place] [id number] [facility] CLIA [id number] [address] [place] [address] [place] Monocytes (Bld) [#/Vol] 0.84 10*3/uL Normal <0.87 [place] Comment on above: Order Comment: Speci men Type: BLOOD SPECIMEN Ordering Facility: [facility] Address: [address] [place] [address] Performed By: #### 5 7021-8 #### [facility] CLIA [id number] [address] [place] [address] LAB CLIA [id number] [address] [place] [address] [place] Monocytes/100 WBC (Bld) 6.0 % Normal [place] Comment on above: Order Comment: Speci men Type: BLOOD SPECIMEN Ordering Facility: [facility] Address: [address] [place] [address] Performed By: #### 5 7021-8 #### [facility] CLIA [id number] [address] [place] [address] LAB CLIA [id number] [address] [place] [address] [place] Neutrophils (Bld) [#/Vol] 4.88 10*3/uL Normal 1.45-7.50 [place] Comment on above: Order Comment: Speci men Type: BLOOD SPECIMEN Ordering Facility: [facility] Address: [address] [place] [address] Performed By: #### 5 7021-8 #### [facility] CLIA [id number] [address] [place] [address] LAB CLIA [id number] [address] [place] [address] [place] Neutrophils/100 WBC (Bld) 35.0 % Normal [place] Comment on above: Order Comment: Speci men Type: BLOOD SPECIMEN Ordering Facility: [facility] Address: [address] [place] [address] Performed By: #### 5 7021-8 #### [facility] CLIA [id number] [address] [place] [address] LAB CLIA [id number] [facility] [place] [address] [place] Nucleated RBC (Bld) [#/Vol] 10*3/uL Normal <0.01 [place] Comment on above: Order Comment: Speci men Type: BLOOD SPECIMEN Ordering Facility: [facility] Address: [address] [place] [address] Performed By: #### 5 7021-8 #### [facility] CLIA [id number] [address] [place] [address] LAB CLIA [id number] [address] [place] [address] [place] Nucleated RBC/100 WBC (Bld) [Ratio] 0.0 /100 WBC Normal [place] Comment on above: Order Comment: Speci men Type: BLOOD SPECIMEN Ordering Facility: [facility] Address: [address] [place] [address] Performed By: #### 5 7021-8 #### [facility] CLIA [id number] [address] [place] [address] LAB CLIA [id number] [address] [place] [address] [place] Ovalocytes LM Ql (Bld) Few Normal [facility] Comment on above: Order Comment: Speci men Type: BLOOD SPECIMEN Ordering Facility: [facility] Address: [address] [place] [address] Performed By: #### 5 7021-8 #### [facility] CLIA [id number] [address] [place] [address] LAB CLIA [id number] [address] [id number] [address] [place] Platelet mean volume (Bld) [Entitic vol] 10.7 fL Normal 9.0-12.7 [place] Comment on above: Order Comment: Speci men Type: BLOOD SPECIMEN Ordering Facility: [facility] Address: [address] [place] [address] Performed By: #### 5 7021-8 #### [facility] CLIA [id number] [address] [place] [address] LAB CLIA [id number] [address] [place] [address] [place] Platelets (Bld) [#/Vol] 152 10*3/uL Normal 150-400 [place] Comment on above: Order Comment: Speci men Type: BLOOD SPECIMEN Ordering Facility: [facility] Address: [address] [place] [address] Performed By: #### 5 7021-8 #### [facility] CLIA [id number] [address] [place] [address] LAB CLIA [id number] [address] [place] [address] [place] Platelets Estimate (Bld) [#/Vol] Adequate Normal [place] Comment on above: Order Comment: Speci men Type: BLOOD SPECIMEN Ordering Facility: [facility] Address: [address] [place] [address] Performed By: #### 5 7021-8 #### [facility] CLIA [id number] [address] [place] [address] LAB CLIA [id number] [address] [place] [address] [place] RBC (Bld) [#/Vol] 3.49 10*6/uL Low 4.20-6.00 [facility] Comment on above: Order Comment: Speci men Type: BLOOD SPECIMEN Ordering Facility: [facility] Address: [address] [place] [address] Performed By: #### 5 7021-8 #### [facility] CLIA [id number] [address] [place] [address] LAB CLIA [id number] [address] [place] [address] [place] RED CELL MORPH Reviewed: see result s of individual morphologies Normal [place] Comment on above: Order Comment: Speci men Type: BLOOD SPECIMEN Ordering Facility: [facility] Address: [address] [place] [address] Performed By: #### 5 7021-8 #### [facility] CLIA [id number] [address] [place] [address] LAB CLIA [id number] [address] [place] [address] [place] WBC (Bld) [#/Vol] 13.94 10*3/uL High 3.70-11.00 [facility] Comment on above: Order Comment: Speci men Type: BLOOD SPECIMEN Ordering Facility: [facility] Address: [address] [place] [address] Performed By: #### 5 7021-8 #### [facility] CLIA [id number] [address] [place] [address] LAB CLIA [id number] [address] [place] [address] [place] CNOVSPon 07-16-2023 OVS Visit (SP) Office (HEMASA) ILA MOREJON ([id number]) 1945 M Date Time Provider Department 07/16/23 2:30 PM FARAZ BECKHAM During your visit today, we recorded the following information about you: Temperature Pulse Respiration Blood pressure 97.7 degrees 42/minute 16/minute 169/38 Weight Height 77.3 kg 1.715 m Faraz Beckham MD 07/16/2023 7:35 PM Signed NAME: Ila Morejon CLINIC NO.: [id number] DATE OF SERVICE: July 16, 2023 (Lory) [...] Reverse Chronological Order 04/04/2023 - Admitted to [facility] with NSTEMI Underwent placement of drug eluting [...] Has been sleeping more, especially since [facility]. Updated Visit, December 27, 2022: 13 year [...] gabapentin (NEUR (more content not included)... Normal [place] Comprehensive metabolic 2000 panelon 07-16-2023 Albumin [Mass/Vol] 3.8 g/dL Low 3.9-4.9 [facility] Comment on above: Order Comment: Speci men Type: BLOOD SPECIMENOrdering Facility: [facility] Address: [address] [place] [address] Performed By: #### 3 084-1, 2532-0, 62146-0 ####[facility] LABCLIA [id number] [place] [address] ALP [Catalytic activity/Vol] 88 U/L Normal 38-113 [place] Comment on above: Order Comment: Speci men Type: BLOOD SPECIMENOrdering Facility: [facility] Address: [address] [place] [address] Performed By: #### 3 084-1, 0, ####[facility] LABCLIA [id number] [place] [address] ALT [Catalytic activity/Vol] 23 U/L Normal 10-54 [place] Comment on above: Order Comment: Speci men Type: BLOOD SPECIMENOrdering Facility: [facility] Address: [address] [place] [address] Performed By: #### 3 084-1, 0, ####[facility] LABCLIA [id number] [place] [address] Anion gap [Moles/Vol] 7 mmol/L Low 9-18 [facility] Comment on above: Order Comment: Speci men Type: BLOOD SPECIMENOrdering Facility: [facility] Address: [address] [place] [address] Performed By: #### 3 084-1, 0, ####[facility] LABCLIA [id number] [place] [address] AST [Catalytic activity/Vol] 23 U/L Normal 14-40 [place] Comment on above: Order Comment: Speci men Type: BLOOD SPECIMENOrdering Facility: [facility] Address: [address] [place] [address] Performed By: #### 3 084-1, 0, ####[facility] LABCLIA [id number] [place] [address] Bilirubin [Mass/Vol] 0.3 mg/dL Normal 0.2-1.3 [facility] Comment on above: Order Comment: Speci men Type: BLOOD SPECIMENOrdering Facility: [facility] Address: [address] [place] [address] Performed By: #### 3 084-1, 0, ####[facility] LABCLIA [id number] [place] [address] Calcium [Mass/Vol] 9.3 mg/dL Normal 8.5-10.2 [facility] Comment on above: Order Comment: Speci men Type: BLOOD SPECIMENOrdering Facility: [facility] Address: [address] [place] [address] Performed By: #### 3 084-1, 2531-0, ####[facility] LABCLIA [id number] [place] [address] Chloride [Moles/Vol] 107 mmol/L High 97-105 [facility] Comment on above: Order Comment: Speci men Type: BLOOD SPECIMENOrdering Facility: [facility] Address: [address] [place] [address] Performed By: #### 3 084-1, 2531-0, ####[facility] LABCLIA [id number] [place] [address] CO2 [Moles/Vol] 23 mmol/L Normal 22-30 [place] Comment on above: Order Comment: Speci men Type: BLOOD SPECIMENOrdering Facility: [facility] Address: [address] [place] [address] Performed By: #### 3 084-1, 2531-0, ####[facility] LABCLIA [id number] [place] [address] Creatinine [Mass/Vol] 1.59 mg/dL High 0.73-1.22 [facility] Comment on above: Order Comment: Speci men Type: BLOOD SPECIMENOrdering Facility: [facility] Address: [address] [place] [address] Performed By: #### 3 084-1, 2531-0, ####[facility] LABCLIA [id number] [place] [address] Creatinine and Glomerular filtration rate.predicted panel (S/P/Bld) 45 mL/min/1.73m??? Low >=60 [place] Comment on above: Order Comment: Michael feng Type: BLOOD SPECIMENOrdering Facility: [facility] Address: [address] [place] [address] Result Comment: Silvana mated Glomerular Filtration Rate [...] actual GFR. Performed By: #### 3 084-1, 2532-0, 09686-8 ####[facility] LABCLIA [id number] [place] [address] Glucose [Mass/Vol] 200 mg/dL High 74-99 [facility] Comment on above: Order Comment: Michael feng Type: BLOOD SPECIMENOrdering Facility: [facility] Address: [address] [place] [address] Result Comment: The [place] [employer] (ADA) provides guidance for cutoff [...] Standards of Medical Care in Diabetes 2016, [place] [employer]. Diabetes Care. 2016.39(Suppl 1). Performed By: #### 3 084-1, 2532-0, 72720-1 ####[facility] LABCLIA [id number] [place] [address] Potassium [Moles/Vol] 5.3 mmol/L High 3.7-5.1 [facility] Comment on above: Order Comment: Michael feng Type: BLOOD SPECIMENOrdering Facility: [facility] Address: [address] [place] [address] Performed By: #### 3 084-1, 2531-0, ####[facility] LABIA [id number] [place] [address] Protein [Mass/Vol] 6.1 g/dL Low 6.3-8.0 [facility] Comment on above: Order Comment: Speci men Type: BLOOD SPECIMENOrdering Facility: [facility] Address: [address] [place] [address] Performed By: #### 3 084-1, 2531-0, ####[facility] LABIA [id number] [place] [address] Sodium [Moles/Vol] 137 mmol/L Normal 136-144 [facility] Comment on above: Order Comment: Speci men Type: BLOOD SPECIMENOrdering Facility: [facility] Address: [address] [place] [address] Performed By: #### 3 084-1, 2531-0, ####[facility] LABIA [id number] [place] [address] Urea nitrogen [Mass/Vol] 36 mg/dL High 9-24 [place] Comment on above: Order Comment: Speci men Type: BLOOD SPECIMENOrdering Facility: [facility] Address: [address] [place] [address] Performed By: #### 3 084-1, 2531-0, ####[facility] LABIA [id number] [place] [address] [facility] 07-16-2023 LDH [Catalytic activity/Vol] 206 U/L Normal 135-225 [place] Comment on above: Order Comment: Speci men Type: BLOOD SPECIMENOrdering Facility: [facility] Address: [address] [place] [address] Performed By: #### 3 084-1, 2532-0, ####[facility] LABCLIA [id number] [place] [address] Urate SerPl-mCncon 3 Urate [Mass/Vol] 5.5 mg/dL Normal 4.0-8.1 [facility] Comment on above: Order Comment: Speci men Type: BLOOD SPECIMENOrdering Facility: [facility] Address: [place] [address] Performed By: #### 3 084-1, 2531-0, ####[facility] LABCLIA [id number] [place] [address] B2 MICROGLOBULIN Bon 022 Jvnn-4-Fmmcxcngjthei [Mass/Vol] 4.5 ug/mL High <3.1 mg/L [facility] CBC W Auto Differential pane l (Bld)on 06-22-2022 Basophils (Bld) [#/Vol] 0.00 10*3/uL <0.11 k/uL [facility] Basophils/100 WBC (Bld) 0.0 % [facility] Differential cell count method Nom (Bld) Manual [facility] Eosinophils (Bld) [#/Vol] 0.33 10*3/uL <0.46 k/uL [facility] Eosinophils/100 WBC (Bld) 2.0 % [facility] Erythrocyte distribution width (RBC) [Ratio] 12.5 % 11.5 - 15.0 % [facility] Hematocrit (Bld) [Volume fraction] 43.5 % 39.0 - 51.0 % [facility] Hemoglobin (Bld) [Mass/Vol] 15.1 g/dL 13.0 - 17.0 g/dL [facility] Lymphocytes (Bld) [#/Vol] 9.25 10*3/uL High 1.00 - 4.00 k/uL [facility] Lymphocytes/100 WBC (Bld) 56.0 % [facility] MCH (RBC) [Entitic mass] 30.8 pg 26.0 - 34.0 pg [facility] MCHC (RBC) [Mass/Vol] 34.7 g/dL 30.5 - 36.0 g/dL [facility] MCV (RBC) [Entitic vol] 88.8 fL 80.0 - 100.0 fL [facility] Monocytes (Bld) [#/Vol] 1.16 10*3/uL High <0.87 k/uL [facility] Monocytes/100 WBC (Bld) 7.0 % [facility] Neutrophils (Bld) [#/Vol] 5.78 10*3/uL 1.45 - 7.50 k/uL [facility] Neutrophils/100 WBC (Bld) 35.0 % [facility] Nucleated RBC (Bld) [#/Vol] <0.01 k/uL [facility] Nucleated RBC/100 WBC (Bld) [Ratio] 0.0 /100 WBC [facility] Ovalocytes LM Ql (Bld) Few Cl [facility] Platelet mean volume (Bld) [Entitic vol] 10.4 fL 9.0 - 12.7 fL [facility] Platelets (Bld) [#/Vol] 204 10*3/uL 150 - 400 k/uL [facility] Platelets Estimate (Bld) [#/Vol] Adequate [facility] RBC (Bld) [#/Vol] 4.90 10*6/uL 4.20 - 6.0 0 m/uL [facility] Red Cell Morph Reviewed: see result s of individual morphologies [facility] WBC (Bld) [#/Vol] 16.52 10*3/uL High 3.70 - 11 .00 k/uL [facility] Direct antiglobulin test.[place] y specific reagent Ql (RBC)on 06-22-2022 DAGT, Polyspecific [facility] Negative [facility] Comprehensive metabolic 2000 panelon 06-21-2022 Albumin [Mass/Vol] 3.7 g/dL Low 3.9 - 4.9 g/dL [facility] ALP [Catalytic activity/Vol] 117 U/L High 38 - 113 U/L [facility] ALT [Catalytic activity/Vol] 9 U/L Low 10 - 54 U/L [facility] Anion gap [Moles/Vol] 3 mmol/L Low 9 - 18 mmol/L [facility] AST [Catalytic activity/Vol] 13 U/L Low 14 - 40 U/L [facility] Bilirubin [Mass/Vol] 0.4 mg/dL 0.2 - 1 .3 mg/dL [facility] Calcium [Mass/Vol] 9.4 mg/dL 8.5 - 10. 2 mg/dL [facility] Chloride [Moles/Vol] 108 mmol/L High 97 - 10 5 mmol/L [facility] CO2 [Moles/Vol] 27 mmol/L 22 - 30 mmol/L [facility] Creatinine [Mass/Vol] 1.19 mg/dL 0.73 - 1.22 mg/dL [facility] Estimated Glomerular Filtration Rate 64 mL/min/1.73m >=60 mL/min/1.73m [facility] Glucose [Mass/Vol] 180 mg/dL High 74 - 99 mg/dL [facility] Potassium [Moles/Vol] 5.4 mmol/L High 3.7 - 5.1 mmol/L [facility] Protein [Mass/Vol] 6.2 g/dL Low 6.3 - 8.0 g/dL [facility] Sodium [Moles/Vol] 138 mmol/L 136 - 144 mmol/L [facility] Urea nitrogen [Mass/Vol] 31 mg/dL High 9 - 24 mg/dL [facility] LD LACTATE DEHYDROon 022 LDH [Catalytic activity/Vol] 179 U/L 135 - 225 U/L [facility] URIC ACID BLOODon 06-21-2022 Urate [Mass/Vol] 4.5 mg/dL 4.0 - 8.1 mg/dL [facility] CBC AUTO DIFFon 06-06-2022 BASO # 0.1 103/ul Normal 0.0-0.1 [facility] Comment on above: Performed By: #### C BC #### [facility] [address] [place] [address] Dr. Lara Askew Basophils/100 WBC (Bld) 0.5 % Normal 0.2-2.0 [facility] Comment on above: Performed By: #### C BC #### [facility] [address] [address] [address] Lara Askew EO # 0.3 103/ul Normal 0.0-0.7 [facility] Comment on above: Performed By: #### C BC #### [facility] [address] [place] [address] [address] Lara Askew Eosinophils/100 WBC (Bld) 1.6 % Normal 0.9-7.0 [facility] Comment on above: Performed By: #### C BC #### [facility] [address] [place] [address] Dr. Lara Askew Erythrocyte distribution width (RBC) [Ratio] 12.5 % Normal 11.0-15.0 [facility] Comment on above: Performed By: #### C BC #### [facility] [address] [place] [address] Dr. Lara Askew Hematocrit (Bld) [Volume fraction] 39.7 % Critically low 42.0-54.0 [facility] Comment on above: Performed By: #### C BC #### [facility] [address] [place] [address] Dr. Lara Askew Hemoglobin (Bld) [Mass/Vol] 14.0 g/dL Normal 14.0-18.0 [facility] Comment on above: Performed By: #### C BC #### [facility] [address] [place] [address] Dr. Lara Askew IG # 0.07 10e3/ul Critically high 0.00-0.03 [facility] Comment on above: Performed By: #### C BC #### [facility] [address] [place] [address] Dr. Lara Askew IG % 0.4 % Normal 0.0-0.5 [facility] Comment on above: Performed By: #### C BC #### [facility] [address] [place] [address] Dr. Lara Askew LYMPH # 10.1 103/ul Critically high 1.2-3.8 [facility] Comment on above: Performed By: #### C BC #### [facility] [address] [place] [address] Dr. Lara Askew Lymphocytes/100 WBC (Bld) 53.6 % Normal 20.5-60.0 [facility] Comment on above: Performed By: #### C BC #### [facility] [address] [place] [address] Dr. Lara Askew MANUAL DIFF REQ NO Normal [facility] Comment on above: Performed By: #### C BC #### [facility] [address] [place] [address] [address] Lara Askew MCH (RBC) [Entitic mass] 31.5 pg Normal 25.9-34.0 [facility] Comment on above: Performed By: #### C BC #### [facility] [address] [place] [address] [address] Lara Askew MCHC (RBC) [Mass/Vol] 35.3 g/dL Critically high 29.9-35.2 [facility] Comment on above: Performed By: #### C BC #### [facility] [address] [place] [address] Dr. Lara Askew MCV (RBC) [Entitic vol] 89.2 fL Normal 80.0-94.0 [facility] Comment on above: Performed By: #### C BC #### [facility] [address] [place] [address] Dr. Lara Askew MONO # 0.7 103/ul Normal 0.3-0.8 [facility] Comment on above: Performed By: #### C BC #### [facility] [address] [place] [address] Dr. Lara Askew Monocytes/100 WBC (Bld) 3.7 % Normal 1.7-12.0 [facility] Comment on above: Performed By: #### C BC #### [facility] [address] [place] [address] Dr. Lara Askew NEUT # 7.6 103/ul Critically high 1.4-6.5 [facility] Comment on above: Performed By: #### C BC #### [facility] [address] [place] [address] Dr. Lara Askew Neutrophils/100 WBC (Bld) 40.2 % Critically low 43.0-75.0 [facility] Comment on above: Performed By: #### C BC #### [facility] [address] [place] [address] Dr. Lara Askew Platelet mean volume (Bld) [Entitic vol] 11.0 fL Normal 9.5-13.5 [facility] Comment on above: Performed By: #### C BC #### [facility] [address] [address] [address] Lara Askew PLT 185 103/ul Normal 150-450 [facility] Comment on above: Performed By: #### C BC #### [facility] [address] [address] [address] Lara Askew RBC 4.45 106/ul Critically low 4.70-6.10 [facility] Comment on above: Performed By: #### C BC #### [facility] [address] [address] [address] Lara Askew WBC 18.8 103/ul Critically high 4.0-11.0 [facility] Comment on above: Performed By: #### C BC #### [facility] [address] [place] [address] Dr. Lara Askew GLYCOHEMOGLOBIN A1Con 2021 ADA RECOMMENDATION SEE BELOW Normal [facility] Comment on above: Result Comment: ADA RECOMMENDED LIMIT 4.0 - 6.0 ADA THERAPEUTIC TARGET < 7.0 ACTION SUGGESTED > 7.0 Performed By: #### A 1C #### [facility] [address] [place] [address] Dr. Lara Askew Glucose [Mass/Vol] 148 mg/dL Normal [facility] Comment on above: Performed By: #### A 1C #### [facility] [address] [place] [address] Dr. Lara Askew HbA1c (Bld) [Mass fraction] 6.8 % Critically high 4.5-6.2 [facility] Comment on above: Performed By: #### A 1C #### [facility] [address] [place] [address] Dr. Lara Askew LIPID PROFILEon 06-06-2022 CHOL-HDL RATIO NORM SEE BELOW Normal [facility] Comment on above: Result Comment: 3.3 - 4.4 LOW RISK 4.4 - 7.1 AVERAGE RISK 7.1 - 11.0 MODERATE RISK >11.0 HIGH RISK Performed By: #### L LASHAWN, LIPID, BMP #### [facility] [address] [address] [address] Lara Askew Cholesterol [Mass/Vol] 113 mg/dL Normal <=200 Th [facility] Comment on above: Performed By: #### L IVER, LIPID, BMP #### [facility] [address] [address] [address] Lara Askew Cholesterol in HDL [Mass/Vol] 51 mg/dL Normal 40-60 [facility] Comment on above: Performed By: #### L IVER, LIPID, BMP #### [facility] [address] [address] [address] Lara Askew Cholesterol in LDL [Mass/Vol] 47.6 mg/dL Normal [facility] Comment on above: Performed By: #### L IVER, LIPID, BMP #### [facility] [address] [place] [address] Dr. Lara Askew Cholesterol.total/Chol esterol in HDL [Mass ratio] 2.2 {ratio} Normal [facility] Comment on above: Performed By: #### L IVER, LIPID, BMP #### [facility] [address] [address] [address] Lara Askew HDL NORMAL > or = 60 mg/dl - LO W CARDIOVASCULAR RISK <40 mg/dl - HIGH CARDIOVASCULAR RISK Normal [facility] Comment on above: Performed By: #### L IVER, LIPID, BMP #### [facility] [address] [place] [address] Dr. Lara Askew LDL CALC NORMAL SEE BELOW Normal [facility] Comment on above: Result Comment: <100 mg/dl OPTIMAL 100 - 129 mg/dl NEAR OR ABOVE OPTIMAL 130 - 159 mg/dl BORDERLINE HIGH 160 - 189 mg/dl HIGH >190 mg/dl VERY HIGH Performed By: #### L IVER, LIPID, BMP #### [facility] [address] [address] [address] Lara Askew Triglyceride [Mass/Vol] 72 mg/dL Normal <=150 [facility] Comment on above: Performed By: #### L IVER, LIPID, BMP #### [facility] [address] [address] [address] Lara Askew VLDL CALC 14.4 mg/dL Normal [facility] Comment on above: Performed By: #### L IVER, LIPID, BMP #### [facility] [address] [address] [address] Lara Askew LIVER PROFILEon 06-06-2022 Albumin [Mass/Vol] 3.0 g/dL Critically low 3.4-5.0 Th [facility] Comment on above: Performed By: #### L IVER, LIPID, BMP #### [facility] [address] [address] [address] Lara Askew Albumin/Globulin [Mass ratio] 1.0 {ratio} Normal [facility] Comment on above: Performed By: #### L IVER, LIPID, BMP #### [facility] [address] [place] [address] Dr. Lara Askew ALP [Catalytic activity/Vol] 93 U/L Normal 46-116 [facility] Comment on above: Performed By: #### L IVER, LIPID, BMP #### [facility] [address] [place] [address] Dr. Lara Askew ALT [Catalytic activity/Vol] 23 U/L Normal 16-63 [facility] Comment on above: Performed By: #### L IVER, LIPID, BMP #### [facility] [address] [place] [address] Dr. Lara Askew AST [Catalytic activity/Vol] 21 U/L Normal 15-37 [facility] Comment on above: Performed By: #### L IVER, LIPID, BMP #### [facility] [address] [place] [address] Dr. Lara Askew BILI, CONJUGATED 0.1 mg/dL Normal 0.0-0.2 [facility] Comment on above: Performed By: #### L IVER, LIPID, BMP #### [facility] [address] [place] [address] Dr. Lara Askew Bilirubin [Mass/Vol] 0.5 mg/dL Normal 0.2-1.0 [facility] Comment on above: Performed By: #### L IVER, LIPID, BMP #### [facility] [address] [address] [address] Lara Askew Globulin (S) [Mass/Vol] 3.1 g/dL Normal [facility] Comment on above: Performed By: #### L IVER, LIPID, BMP #### [facility] [address] [place] [address] Dr. Lara Askew Protein [Mass/Vol] 6.1 g/dL Critically low 6.4-8.2 Th e [facility] Comment on above: Performed By: #### L IVER, LIPID, BMP #### [facility] [address] [place] [address] Dr. Lara Askew MICROALBUMIN, RAND URon 05-21 mALB 24.1 mg/L Normal <=30.0 [facility] Comment on above: Performed By: #### M ALBR #### [facility] [address] [place] [address] Dr. Lara Askew PERIPHERAL SMEARon Pathologist Cyto stain Nom (Cvx/Vag) [ID] DR. ROSEMARIE DOE Normal [facility] Comment on above: Result Comment: Revi ew [...] a lymphoproliferative disorder. Clinical correlation is recommended. Ramón Doe MD 06-10-22 Performed By: #### P ERSMR #### [facility] [address] [place] [address] Dr. Lara Askew PROF CHEM 8 (BAS METB)on Anion gap [Moles/Vol] 9.4 mmol/L Normal [facility] Comment on above: Performed By: #### L IVER, LIPID, BMP #### [facility] [address] [place] [address] Dr. Lara Askew Calcium [Mass/Vol] 8.7 mg/dL Normal 8.5-10.1 [facility] Comment on above: Performed By: #### L IVER, LIPID, BMP #### [facility] [address] [address] [address] Lara Askew Chloride [Moles/Vol] 105 mmol/L Normal 98-107 [facility] Comment on above: Performed By: #### L IVER, LIPID, BMP #### [facility] [address] [place] [address] Dr. Lara Askew CO2 [Moles/Vol] 28.6 mmol/L Normal 21.0-32.0 [facility] Comment on above: Performed By: #### L IVER, LIPID, BMP #### [facility] [address] [place] [address] Dr. Lara Askew Creatinine [Mass/Vol] 1.07 mg/dL Normal 0.70-1.30 [facility] Comment on above: Performed By: #### L IVER, LIPID, BMP #### [facility] [address] [place] [address] Dr. Lara Askew EGFR-AF UKRAINIAN >60 Normal >=60 [facility] Comment on above: Performed By: #### L IVER, LIPID, BMP #### [facility] [address] [place] [address] Dr. Lara Askew EGFR-NON AF UKRAINIAN >60 Normal >=60 [facility] Comment on above: Performed By: #### L IVER, LIPID, BMP #### [facility] [address] [place] [address] Dr. Lara Askew Glucose [Mass/Vol] 147 mg/dL Critically high 74-106 [facility] Comment on above: Performed By: #### L IVER, LIPID, BMP #### [facility] [address] [place] [address] Dr. Lara Askew Potassium [Moles/Vol] 5.0 mmol/L Normal 3.5-5.1 [facility] Comment on above: Performed By: #### L IVER, LIPID, BMP #### [facility] [address] [address] [address] Lara Askew Sodium [Moles/Vol] 138 mmol/L Normal 136-145 [facility] Comment on above: Performed By: #### L IVER, LIPID, BMP #### [facility] [address] [address] [address] Lara Askew Urea nitrogen [Mass/Vol] 22.0 mg/dL Critically high 7.0-18.0 [facility] Comment on above: Performed By: #### L IVER, LIPID, BMP #### [facility] [address] [address] [address] Lara Askew Urea nitrogen/Creatinine [Mass ratio] 20.6 mg/mg Normal [facility] Comment on above: Performed By: #### L IVER, LIPID, BMP #### [facility] [address] [place] [address] Dr. Lara Askew VITAMIN D 25 OHon 06-06-2022 VIT D 25-OH 10.6 ng/mL Normal [facility] Comment on above: Performed By: #### V DANIEL, PSASC #### [facility] [address] [place] [address] Dr. Lara Askew VIT D RANGES SEE BELOW Normal [facility] Comment on above: Result Comment: <20 ng/mL Vit D deficient 20 - <30 ng/mL Vit D insufficient 30 - 100 ng/mL Vit D sufficient >100 ng/mL Potential Toxicity Performed By: #### V DANIEL, PSASC #### [facility] [address] [place] [address] Dr. Lara Askew GLYCOHEMOGLOBIN A1Con 2021 ADA RECOMMENDATION SEE BELOW Normal [facility] Comment on above: Result Comment: ADA RECOMMENDED LIMIT 4.0 - 6.0 ADA THERAPEUTIC TARGET < 7.0 ACTION SUGGESTED > 7.0 Performed By: #### A 1C #### [facility] [address] [place] [address] Dr. Lara Askew Glucose [Mass/Vol] 169 mg/dL Normal [facility] Comment on above: Performed By: #### A 1C #### [facility] [address] [address] [address] Lara Askew HbA1c (Bld) [Mass fraction] 7.5 % Critically high 4.5-6.2 [facility] Comment on above: Performed By: #### A 1C #### [facility] [address] [place], [place] [address] Dr. Lara Askew Albumin [Mass/volume] in Ser um or Plasmaon 01-01-2021 Albumin [Mass/Vol] 3.5 g/dL 3.2-5.5 [facility] Creatinine and Glomerular fi ltration rate.predicted panel (S/P/Bld)on 01-01-2021 Creatinine [Mass/Vol] 1.02 mg/dL 0.64-1.27 [facility] Estimated glomerular filtrat ion rate (GFR) non- Americanon 01-01-2021 GFR/1.73 sq M.predicted among non-blacks MDRD (S/P/Bld) [Vol rate/Area] > 60 mL/Min [facility] Globulin Calc (S) [Mass/Vol] on 01-01-2021 Globulin (S) [Mass/Vol] 2.0 g/dL [facility] No Panel Informationon 01-01 Estimated GFR () > 60 mL/Min [facility] Comment on above: GFR estimated refere nce range: According to KDOQI guidelines, <60 ml/min/1.73m2 is sufficient to diagnose a patient with chronic kidney disease. Pharmacy Creatinine Clearance (Chem N/A [facility] Protein [Mass/volume] in Ser um or Plasmaon 01-01-2021 Protein [Mass/Vol] 5.5 g/dL 6.1-7.9 [facility] Serum or plasma alanine chambers otransferase measurement without P-5'-P (enzymatic activion 01-01-2021 ALT No additional P-5'-P [Catalytic activity/Vol] 28 U/L 10-60 [facility] Serum or plasma albumin/glob ulin mass ratioon 01-01-2021 Albumin/Globulin [Mass ratio] 1.8 {ratio} [facility] Serum or plasma alkaline clarisa sphatase measurement (enzymatic activity/volume)on 01-01-2021 ALP [Catalytic activity/Vol] 78 U/L 32-92 [facility] Serum or plasma aspartate am inotransferase measurement (enzymatic activity/volume)on 01-01-2021 AST [Catalytic activity/Vol] 21 U/L 10-42 [facility] Serum or plasma calcium elham urement (mass/volume)on 01-01-2021 Calcium [Mass/Vol] 9.6 mg/dL 8.2-10.2 [facility] Serum or plasma chloride daria surement (moles/volume)on 01-01-2021 Chloride [Moles/Vol] 103 mmol/L 95-114 [facility] Serum or plasma glucose elham urement (mass/volume)on 01-01-2021 Glucose [Mass/Vol] 59 mg/dL 70-100 [facility] Comment on above: ADA recommended refe rence rangeRandom Glucose Reference Range is dependent on time and content of last meal. Glucose of more than 200 mg/dL in a nonstressed, ambulatory subject supports the diagnosis of Diabetes Mellitus. Serum or plasma potassium me asurement (moles/volume)on 01-01-2021 Potassium [Moles/Vol] 4.8 mmol/L 3.5-5.1 [facility] Serum or plasma sodium measu rement (moles/volume)on 01-01-2021 Sodium [Moles/Vol] 143 mmol/L 136-146 [facility] Serum or plasma total biliru bin measurement (mass/volume)on 01-01-2021 Bilirubin [Mass/Vol] 0.9 mg/dL 0.3-1.2 [facility] Serum or plasma total carbon dioxide measurement (moles/volume)on 01-01-2021 CO2 [Moles/Vol] 28.5 mmol/L 22.0-30.0 [facility] Serum or plasma urea nitroge n measurement (mass/volume)on 01-01-2021 Urea nitrogen [Mass/Vol] 14 mg/dL 9-23 [facility] Vital Signs Date Time Vital Sign Value Performing Clinician Faci lity 04-14-2024 10:13-0400 Body height 172.72 cm MD Cruzito Mcgrath Work Phone: [facility] 04-14-2024 10:13-0400 Body mass index (BMI) [Ratio] 24.9 kg/m2 MD Cruzito Mcgrath Work Phone: [facility] 04-14-2024 10:13-0400 Body temperature 97.9 [degF] MD Cruzito Mcgrath Work Phone: [facility] 04-14-2024 10:13-0400 Body weight 74.38 kg MD Cruzito Mcgrath Work Phone: [facility] 04-14-2024 10:13-0400 Diastolic blood pressure 50 mm[Hg] MD Cruzito Mcgrath Work Phone: [facility] 04-14-2024 10:13-0400 Heart rate 39 /min MD Cruzito Mcgrath Work Phone: [facility] 04-14-2024 10:13-0400 SaO2% (BldA) [Mass fraction] 96 % MD Cruzito Mcgrath Work Phone: [facility] 04-14-2024 10:13-0400 Systolic blood pressure 160 mm[Hg] MD Cruzito Mcgrath Work Phone: [facility] 04-13-2024 09:32-0400 Body height 172.72 cm MD Cruzito Mcgrath Work Phone: [facility] 04-13-2024 09:32-0400 Body mass index (BMI) [Ratio] 25 kg/m2 MD Cruzito Mcgrath Work Phone: [facility] 04-13-2024 09:32-0400 Body weight 74.55 kg MD Cruzito Mcgrath Work Phone: [facility] 03-18-2024 09:44-0400 Body height 172.72 cm MD Cruzito Mcgrath Work Phone: [facility] 03-18-2024 09:44-0400 Body mass index (BMI) [Ratio] 24.5 kg/m2 MD Cruzito Mcgrath Work Phone: [facility] 03-18-2024 09:44-0400 Body temperature 97.8 [degF] MD Cruzito Mcgrath Work Phone: [facility] 03-18-2024 09:44-0400 Body weight 73.02 kg MD Cruzito Mcgrath Work Phone: [facility] 03-18-2024 09:44-0400 Diastolic blood pressure 84 mm[Hg] MD Cruzito Mcgrath Work Phone: [facility] 03-18-2024 09:44-0400 Heart rate 68 /min MD Cruzito Mcgrath Work Phone: [facility] 03-18-2024 09:44-0400 Respiratory rate 16 /min MD Cruzito Mcgrath Work Phone: [facility] 03-18-2024 09:44-0400 SaO2% (BldA) [Mass fraction] 98 % MD Cruzito Mcgrath Work Phone: [facility] 03-18-2024 09:44-0400 Systolic blood pressure 126 mm[Hg] MD Cruzito Mcgrath Work Phone: [facility] 01-16-2024 14:09-0400 Body mass index (BMI) [Ratio] 24.89 kg/m2 Faraz Beckham MD Work Phone: [facility] 01-16-2024 14:09-0400 Body temperature 97.2 [degF] Faraz Beckham MD Work Phone: [facility] 01-16-2024 14:09-0400 Body weight 73.21 kg Faraz Beckham MD Work Phone: [facility] 01-16-2024 14:09-0400 Diastolic blood pressure 35 mm[Hg] Faraz Beckham MD Work Phone: [facility] 01-16-2024 14:09-0400 Heart rate 45 /min Faraz Beckham MD Work Phone: [facility] 01-16-2024 14:09-0400 Respiratory rate 18 /min Faraz Beckham MD Work Phone: [facility] 01-16-2024 14:09-0400 SaO2% (BldA) [Mass fraction] 98 % Faraz Beckham MD Work Phone: [facility] 01-16-2024 14:09-0400 Systolic blood pressure 132 mm[Hg] Faraz Beckham MD Work Phone: [facility] 09-03-2023 12:11-0500 Body height 172.7 cm Geneva Dechristophe r FINGERPRINT CLERK-REINSURANCE CLERK Work Phone: [facility] [employer] 09-03-2023 12:11-0500 Body mass index (BMI) [Ratio] 26 kg/m2 Geneva Dechristopher FINGERPRINT CLERK-REINSURANCE CLERK Work Phone: [facility] 09-03-2023 12:11-0500 Body weight 77.56 kg Geneva Dechristophe r FINGERPRINT CLERK-REINSURANCE CLERK Work Phone: [employer] 09-03-2023 12:11-0500 Diastolic blood pressure 58 mm[Hg] Geneva Dechristopher FINGERPRINT CLERK-REINSURANCE CLERK Work Phone: [employer] 09-03-2023 12:11-0500 Heart rate 42 /min Geneva Dechristophe r FINGERPRINT CLERK-REINSURANCE CLERK Work Phone: [employer] 09-03-2023 12:11-0500 SaO2% (BldA) [Mass fraction] 98 % Geneva Dechristopher FINGERPRINT CLERK-REINSURANCE CLERK Work Phone: [employer] 09-03-2023 12:11-0500 Systolic blood pressure 130 mm[Hg] Geneva Dechristopher FINGERPRINT CLERK-REINSURANCE CLERK Work Phone: [facility] 08-27-2023 14:07-0500 Body height 172.7 cm Debbie Hirsch MD Work Phone: [facility] 08-27-2023 14:07-0500 Body mass index (BMI) [Ratio] 25.7 kg/m2 Debbie Hirsch MD Work Phone: [facility] 08-27-2023 14:07-0500 Body weight 76.66 kg Debbie Hirsch MD Work Phone: [facility] 08-27-2023 14:07-0500 Diastolic blood pressure 50 mm[Hg] Debbie Hirsch MD Work Phone: [facility] 08-27-2023 14:07-0500 Heart rate 47 /min Debbie Hirsch MD Work Phone: [facility] 08-27-2023 14:07-0500 SaO2% (BldA) [Mass fraction] 98 % Debbie Hirsch MD Work Phone: [facility] 08-27-2023 14:07-0500 Systolic blood pressure 132 mm[Hg] Debbie Hirsch MD Work Phone: [facility] 12-27-2022 13:34-0400 Body height 171.5 cm Faraz Beckham MD Work Phone: [facility] 12-27-2022 13:34-0400 Body temperature 97.59 [degF] Faraz Beckham MD Work Phone: [facility] 12-27-2022 13:34-0400 Body weight 77.2 kg Faraz Beckham MD Work Phone: [facility] 12-27-2022 13:34-0400 Diastolic blood pressure 56 mm[Hg] Faraz Beckham MD Work Phone: [facility] 12-27-2022 13:34-0400 Heart rate 45 /min Faraz Beckham MD Work Phone: [facility] 12-27-2022 13:34-0400 Respiratory rate 16 /min Faraz Beckham MD Work Phone: [facility] 12-27-2022 13:34-0400 SaO2% (BldA) [Mass fraction] 98 % Faraz Beckham MD Work Phone: [facility] 12-27-2022 13:34-0400 Systolic blood pressure 146 mm[Hg] Faraz Beckham MD Work Phone: [facility] 06-21-2022 14:44-0500 Body height 172.7 cm Faraz Beckham MD Work Phone: [facility] 06-21-2022 14:44-0500 Body temperature 97.59 [degF] Faraz Beckham MD Work Phone: [facility] 06-21-2022 14:44-0500 Body weight 77.02 kg Faraz Beckham MD Work Phone: [facility] 06-21-2022 14:44-0500 Diastolic blood pressure 48 mm[Hg] Faraz Beckham MD Work Phone: [facility] 06-21-2022 14:44-0500 Heart rate 40 /min Faraz Beckham MD Work Phone: [facility] 06-21-2022 14:44-0500 Respiratory rate 16 /min Faraz Beckham MD Work Phone: [facility] 06-21-2022 14:44-0500 SaO2% (BldA) [Mass fraction] 99 % Faraz Beckham MD Work Phone: [facility] 06-21-2022 14:44-0500 Systolic blood pressure 179 mm[Hg] Faraz Beckham MD Work Phone: [facility] Encounters Encounter Date Encounter Type Care Provider Facility Start: 05-03-2024 End: 05-03-2024 ambulatory ADAMARIS BARBER [facility] Start: 04-29-2024 End: 04-29-2024 Telephone encounter Carlotta Bahena [facility] Comment on above: abnormal rhythm Start: 04-28-2024 End: 04-28-2024 Telephone encounter Marisol Berry [facility] Comment on above: Hypertension continuation of orde rs (Contract: [email or web address] [phone] [facility] Sepideh re continuation of orders; [id number]) Start: 04-27-2024 End: 04-29-2024 Evaluation and management of inpatient MATILDE Griffith [facility] Start: 04-26-2024 End: 04-26-2024 Telephone encounter Shahrzad Manley [facility] Comment on above: new consult (Elev. t rops) Start: 04-26-2024 End: 04-27-2024 Evaluation and management of [facility] Start: 04-20-2024 End: 04-20-2024 Patient encounter procedure MD Cruzito Mcgrath Work Phone: [facility] [place] Work Phone: Start: 04-20-2024 End: 04-20-2024 ambulatory MD Cruzito Mcgrath Work Phone: [facility] Work Phone: Start: 04-14-2024 End: 04-14-2024 Patient encounter procedure MD Cruzito Mcgrath Work Phone: [facility] Work Phone: Start: 04-13-2024 End: 04-13-2024 Patient encounter procedure MD Cruzito Mcgrath Work Phone: [facility] Work Phone: Start: 04-12-2024 End: 04-12-2024 ambulatory [facility] Start: 04-07-2024 End: 04-07-2024 ambulatory MD Cruzito Mcgrath Work Phone: [facility] Work Phone: Start: 04-07-2024 End: 04-07-2024 Patient encounter procedure MD Cruzito Mcgrath Work Phone: [facility] [place] Work Phone: Start: 03-18-2024 End: 03-18-2024 Patient encounter procedure MD Cruzito Mcgrath Work Phone: [facility] Work Phone: Start: 03-09-2024 End: 03-09-2024 ambulatory JEROMY H JACKIE Not Available Start: 03-05-2024 End: 03-06-2024 Emergency department patient visit DANIEL MISTRY [facility] Start: 03-05-2024 End: 03-05-2024 Emergency department patient visit CRUZITO MCGRATH [facility] Start: 02-26-2024 End: 02-26-2024 ambulatory CRUZITO MCGRATH Not Available Start: 02-24-2024 End: 02-24-2024 ambulatory JUDAH COSTELLO [facility] Start: 01-16-2024 End: 01-16-2024 Office outpatient visit 25 minutes Faraz Beckham MD Work Phone: Hematology/Oncology Comment on above: CLL (chronic lymphoc ytic leukemia) (HCC) (Primary Dx); Large granular lymphocytosis; Stage 3 chronic kidney disease, unspecified whether stage 3a or 3b CKD (HCC) Start: 01-16-2024 End: 01-16-2024 ambulatory FARAZ BECKHAM Facility:[facility] Start: 01-09-2024 End: 01-09-2024 ambulatory CRUZITO MCGRATH Not Available Start: 01-08-2024 End: 01-08-2024 ambulatory BRAD STINSON Not Available Start: 12-27-2023 End: 12-27-2023 ambulatory Arminda Valverde [facility] Work Phone: Start: 12-27-2023 End: 12-27-2023 Departed Referred DO Arminda Valverde Work Phone: [facility] Start: 12-18-2023 End: 12-18-2023 ambulatory CRUZITO MCGRATH Not Available Start: 10-24-2023 End: 10-24-2023 ambulatory CRUZITO MCGRATH Not Available Start: 09-03-2023 End: 09-03-2023 Office outpatient visit 15 minutes Geneva Sanders FINGERPRINT CLERK-REINSURANCE CLERK Work Phone: [facility] Comment on above: 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 (Primary Dx); Sinus pause; Hypertension, unspecified type; NSTEMI (non-ST elevated myocardial infarction) ([facility]) Start: 09-03-2023 End: 09-03-2023 ambulatory GENEVA M [facility] Start: 08-27-2023 End: 08-27-2023 Office outpatient visit 15 minutes Debbie Hirsch MD Work Phone: [facility] Comment on above: History of coronary angioplasty with insertion of stent (Primary Dx); Pulmonary hypertension ([facility] Primary hypertension; Hx of hyperlipidemia; Sinus pause Start: 08-27-2023 End: 08-27-2023 [facility] Start: 08-26-2023 Telephone encounter Gabbie Rebolledo [facility] Start: 08-25-2023 End: 08-25-2023 ambulatory [facility] Start: 08-21-2023 End: 08-21-2023 Patient encounter procedure Patria Bhat FINGERPRINT CLERK-REINSURANCE CLERK Work Phone: [facility] Start: 08-21-2023 End: 08-21-2023 ambulatory [facility] Start: 08-20-2023 End: 08-20-2023 Patient encounter procedure Patria Bhat FINGERPRINT CLERK-REINSURANCE CLERK Work Phone: [facility] Start: 08-20-2023 End: 08-20-2023 [facility] Start: 08-18-2023 End: 08-18-2023 [facility] Start: 08-14-2023 End: 08-14-2023 Patient encounter procedure Patria Bhat FINGERPRINT CLERK-REINSURANCE CLERK Work Phone: [facility] Start: 08-14-2023 End: 08-14-2023 [facility] Start: 08-13-2023 End: 08-13-2023 [facility] Start: 08-11-2023 End: 08-11-2023 Patient encounter procedure Kaitysangabdiel MendozaHome FINGERPRINT CLERK-REINSURANCE CLERK Work Phone: [facility] Start: 08-11-2023 End: 08-11-2023 [facility] Start: 08-07-2023 End: 08-07-2023 Patient encounter procedure Kaityaliyah Home FINGERPRINT CLERK-REINSURANCE CLERK Work Phone: [facility] Start: 08-07-2023 End: 08-07-2023 [facility] Start: 08-06-2023 End: 08-06-2023 [facility] Start: 08-05-2023 End: 08-05-2023 ambulatory WAYNE DONALD [facility] Start: 08-04-2023 Documentation procedure Wayne Donald MD Work Phone: [facility] Patient Resource Specialist Sign In Start: 08-04-2023 End: 08-04-2023 Patient encounter procedure Kiatysangabdiel MendozaHome FINGERPRINT CLERK-REINSURANCE CLERK Work Phone: [facility] Start: 08-04-2023 End: 08-04-2023 ambulatory [facility] Start: 07-31-2023 End: 07-31-2023 ambulatory [facility] Start: 07-30-2023 End: 08-21-2023 [facility] Start: 07-28-2023 End: 07-28-2023 ambulatory [facility]ANDAN [facility] Start: 07-24-2023 End: 07-24-2023 Patient encounter procedure Patria Bhat FINGERPRINT CLERK-REINSURANCE CLERK Work Phone: [facility] Start: 07-24-2023 End: 07-24-2023 ambulatory [facility] Start: 07-23-2023 End: 07-23-2023 ambulatory CRUZITO MCGRATH [facility] Start: 07-23-2023 End: 07-23-2023 Patient encounter procedure Patria Bhat FINGERPRINT CLERK-REINSURANCE CLERK Work Phone: [facility] Start: 07-23-2023 End: 07-23-2023 ambulatory [facility] Start: 07-22-2023 End: 07-22-2023 ambulatory CRUZITO MCGRATH Not Available Start: 07-17-2023 End: 07-17-2023 Patient encounter procedure Patria Bhat FINGERPRINT CLERK-REINSURANCE CLERK Work Phone: [facility] Comment on above: Arrived Start: 07-17-2023 End: 07-17-2023 ambulatory [facility] Start: 07-16-2023 End: 07-16-2023 ambulatory CRUZITO Yuriy LURDESLOBITO Facility:[facility] Start: 07-16-2023 End: 07-21-2023 ambulatory [facility] Start: 07-10-2023 End: 07-10-2023 ambulatory [facility] Start: 07-09-2023 End: 07-09-2023 ambulatory [facility] Start: 07-07-2023 End: 07-07-2023 ambulatory [facility] Start: 07-03-2023 End: 07-21-2023 ambulatory [facility] Start: 07-01-2023 End: 07-01-2023 ambulatory EMELY [...] peripheral angiopathy without gangrene, unspecified whether intermediate insulin use (HCC) Start: 06-27-2022 End: 06-28-2022 [...] 06-06-2022 End: 06-07-[address] CRUZITO MCGRATH Facility: Start: 12-06-2021 End: 12-07-[address] CRUZITO MCGRATH Facility:[facility] Start: 01-01-2021 End: 01-01-2021 Patient encounter procedure Cruzito Mcgrath Work Phone: -[facility] [place] Procedures Date Procedure Procedure Detail Performing Clinician Start: 04-27-2024 Adult depression scr eening assessment Marisol Berry Start: 04-20-2024 CT of abdominal aort a with contrast MD Cruzito Mcgrath Work Phone: Start: 04-07-2024 Pulse volume recorde r plethysmography MD Cruzito Mcgrath Work Phone: Start: 08-27-2023 Follow-up visit Follow-up [facility] Start: 04-05-2023 Adult depression scr eening assessment [facility] 1 Start: 12-26-2022 Colonoscopy Faraz Baljit miles MD Work Phone: Start: 06-06-[address] CRUZITO SEAY Comment on above: Performed By: #### V ITAD, PSASC #### [facility] [address] [place] [address] Dr. Lara Askew Start: 10-30-2016 Microalbumin [Mass/v olume] in Urine by Test strip [facility] 1 History of placement of stent for coronary artery disease History of coronary angioplasty with insertion of stent Debbie Hirsch MD Work Phone: Plan of Treatment Date Care Activity Detail Author Start: 12-27-2027 Screening for malignant neoplasm of colon Colonoscopy [facility] Start: 06-21-2025 DIABETES SCREEN DIABETES SCREEN [facility] Start: 04-28-2025 Adult BMI Screening Adult BMI Screening [facility] Start: 04-27-2025 Adult BMI Screening Adult BMI Screening [facility] Start: 04-27-2025 Depression Screening Depression Screening [facility] Start: 04-27-2025 Tobacco Screening Tobacco Screening [facility] Start: 04-26-2025 Adult BMI Screening Adult BMI Screening [facility] Start: 04-26-2025 Tobacco Screening Tobacco Screening [facility] Start: 01-15-2025 Creatinine measurement Serum Creatinine [facility] Start: 09-03-2024 Adult BMI Screening Adult BMI Screening [facility] Start: 09-03-2024 Tobacco Screening Tobacco Screening [facility] Start: 08-27-2024 Adult BMI Screening Adult BMI Screening [facility] Start: 08-27-2024 Tobacco Screening Tobacco Screening [facility] Start: 07-17-2024 End: 01-15-2025 CBC W Auto Differential panel - Blood COMPLETE BLOOD COUNT AND DIFFERENTIAL Lab Routine CLL (chronic lymphocytic leukemia) (HCC) Expected: 07/17/2024 (Approximate), Expires: 01/15/2025 [facility] Comment on above: Expected: 07/17/2024 (Approximate), Expi res: 01/15/2025 Start: 07-17-2024 End: 01-15-2025 Comprehensive metabolic 2000 panel - Serum or Plasma COMPREHENSIVE METABOLIC PANEL Lab Routine CLL (chronic lymphocytic leukemia) (HCC) Expected: 07/17/2024 (Approximate), Expires: 01/15/2025 [facility] Comment on above: Expected: 07/17/2024 (Approximate), Expi res: 01/15/2025 Start: 07-17-2024 End: 01-15-2025 Lactate dehydrogenase [Enzymatic activity/volume] in Serum or Plasma LACTATE DEHYDROGENASE Lab Routine CLL (chronic lymphocytic leukemia) (HCC) Expected: 07/17/2024 (Approximate), Expires: 01/15/2025 [facility] Work Phone: Comment on above: Expected: 07/17/2024 (Approximate), Expi res: 01/15/2025 Start: 07-17-2024 End: 10-16-2024 Urate [Mass/volume] in Serum or Plasma URIC ACID Lab Routine CLL (chronic lymphocytic leukemia) (HCC) Expected: 07/17/2024 (Approximate), Expires: 10/16/2024 [facility] Comment on above: Expected: 07/17/2024 (Approximate), Expi res: 10/16/2024 Start: 07-16-2024 Complete blood count Hemoglobin/Hematocrit [facility] Start: 07-09-2024 End: 07-09-2024 Follow-up encounter 07/09/2024 2:15 PM EST Visit (SP) Office Hematology/Oncology [address] [place] [address] [place] [address] Faraz Beckham MD [address] [place] [place] [address] 6 month follow up lab Hematology/Oncology Comment on above: 6 month follow up lab Start: 07-09-2024 End: 07-09-2024 Patient encounter procedure 07/09/2024 2:00 PM EST Office Visit [facility] [address] [place] [address] 6 month follow up lab [facility] Comment on above: 6 month follow up lab Start: 05-01-2024 Adult BMI Screening Adult BMI Screening [facility] Start: 05-01-2024 Tobacco Screening Tobacco Screening [facility] Start: 04-07-2024 Pulse volume recorder plethysmography [facility] Start: 04-05-2024 Depression Screening Depression Screening [facility] Start: 03-21-2024 COVID-19 Vaccine ( season) COVID-19 Vaccine () [facility] Start: 03-21-2024 Influenza vaccination Influenza Vaccine [facility] Start: 03-15-2024 End: 03-15-2024 Patient encounter procedure [facility] Start: 02-24-2024 End: 02-24-2024 Patient encounter procedure [facility] Start: 01-21-2024 Hemoglobin A1c measurement HbA1C [facility] Start: 12-28-2023 HEMOGLOBIN/HEMATOCRIT HEMOGLOBIN/HEMATOCRIT [facility] Start: 12-28-2023 SERUM CREATININE SERUM CREATININE [facility] Start: 12-27-2023 Colonoscopy COLONOSCOPY [facility] Start: 12-27-2023 COLORECTAL CANCER SCREENING COLORECTAL CANCER SCREENING [facility] Start: 10-28-2023 End: 10-28-2023 Patient encounter procedure 10/28/2023 11:00 AM EDT Office Visit [facility] [address] [place] [id number] Gage Norton MD [address] [place] [address] [facility] Start: 09-27-2023 Covid-19 Vaccine ( season) Covid-19 Vaccine () [facility] Start: 09-03-2023 End: 09-03-2023 Patient encounter procedure 09/03/2023 1:00 PM EST Office Visit [facility] [address] [place] [address] Geneva Sanders FINGERPRINT CLERK-REINSURANCE CLERK [address] [place] [address] [facility] Start: 08-27-2023 End: 08-27-2023 Patient encounter procedure 08/27/2023 2:00 PM EST Office Visit [facility] [address] [place] [phone] Debbie Hirsch MD [address] [place] [address] [facility] Start: 08-21-2023 End: 08-21-2023 Patient encounter procedure 08/21/2023 1:00 PM EST Office Visit [facility] [address] [place] [address] Patria Bhat FINGERPRINT CLERK-REINSURANCE CLERK [address] [place] [address] [facility] Start: 08-20-2023 End: 08-20-2023 Patient encounter procedure 08/20/2023 1:00 PM EST Office Visit [facility] [address] [place] [address] Patria Bhat APRN-REINSURANCE CLERK [address] [place] [address] [facility] Start: 08-18-2023 End: 08-18-2023 Patient encounter procedure 08/18/2023 1:00 PM EST Office Visit [facility] [address] [place] [address] Patria Bhat APRN-REINSURANCE CLERK [address] [place] [address] [facility] Start: 08-14-2023 End: 08-14-2023 Patient encounter procedure 08/14/2023 1:00 PM EST Office Visit [facility] [address] [place] [address] Patria Bhat APRN-REINSURANCE CLERK [address] [place] [address] [facility] Start: 08-13-2023 End: 08-13-2023 Patient encounter procedure 08/13/2023 1:00 PM EST Office Visit [facility] [address] [place] [address] Patria Bhat APRN-REINSURANCE CLERK [address] [place] [address] [facility] Start: 08-11-2023 End: 08-11-2023 Patient encounter procedure 08/11/2023 1:00 PM EST Office Visit [facility] [address] [place] [address] Patria Bhat APRN-REINSURANCE CLERK [address] [place] [address] [facility] Start: 08-07-2023 End: 08-07-2023 Patient encounter procedure 08/07/2023 1:00 PM EST Office Visit [facility] [address] [place] [address] Patria Bhat APRN-REINSURANCE CLERK [address] [place] [address] [facility] Start: 08-06-2023 End: 08-06-2023 Patient encounter procedure 08/06/2023 1:00 PM EST Office Visit [facility] [address] [place] [address] Patria Bhat APRN-REINSURANCE CLERK [address] [place] [address] [facility] Start: 08-05-2023 End: 08-05-2023 Patient encounter procedure 08/05/2023 9:00 AM EST Appointment [facility] [address] [place] [address] Wayne Donald MD [address] [place] [address] [facility] Start: 08-04-2023 End: 08-04-2024 Holter monitor study Holter monitor 24-48 hour Cardiac Services Routine Bradycardia Expected: 08/04/2023, Expires: 08/04/2024 [facility] CHIU Work Phone: Comment on above: Expected: 08/04/2023, Expires: Start: 08-04-2023 End: 08-04-2023 Patient encounter procedure 08/04/2023 1:00 PM EST Office Visit [facility] [address] [place] [address] Patria Bhat APRN-REINSURANCE CLERK [address] [place] [address] [facility] Start: 07-31-2023 End: 07-31-2023 Patient encounter procedure 07/31/2023 1:00 PM EST Office Visit [facility] [address] [place] [address] Patria Bhat APRN-REINSURANCE CLERK [address] [place] [address] [facility] Start: 07-30-2023 End: 07-30-2023 Patient encounter procedure 07/30/2023 1:00 PM EST Office Visit [facility] [address] [place] [address] Patria Bhat APRN-REINSURANCE CLERK [address] [place] [address] [facility] Start: 07-28-2023 End: 07-28-2023 Patient encounter procedure 07/28/2023 1:00 PM EST Office Visit [facility] [address] [facility] [place] [address] Patria Bhat APRN-REINSURANCE CLERK [address] [place] [address] [facility] Start: 07-24-2023 End: 07-24-2023 Patient encounter procedure 07/24/2023 1:00 PM EST Office Visit [facility] [address] [place] [address] Patria Bhat APRN-REINSURANCE CLERK [address] [place] [address] [facility] Start: 07-23-2023 End: 07-23-2023 Patient encounter procedure 07/23/2023 1:00 PM EST Office Visit [facility] [address] [place] [address] Patria Bhat APRN-REINSURANCE CLERK [address] [place] [address] [facility] Start: 07-21-2023 Advance Directive Discussion Advance Directive Discussion [facility] Start: 07-21-2023 Behavioral Health Screening Behavioral Health Screening [facility] Start: 06-28-2023 End: 12-28-2023 CBC W Auto Differential panel - Blood CBC + DIFF Lab Routine CLL (chronic lymphocytic leukemia) (HCC) Large granular lymphocytosis Expected: 06/28/2023 (Approximate), Expires: 12/28/2023 [facility] Work Phone: Comment on above: Expected: 06/28/2023 (Approximate), Expi res: 12/28/2023 Start: 06-28-2023 End: 12-28-2023 Comprehensive metabolic 2000 panel - Serum or Plasma COMP METABOLIC PANEL Lab Routine CLL (chronic lymphocytic leukemia) (HCC) Large granular lymphocytosis Expected: 06/28/2023 (Approximate), Expires: 12/28/2023 [facility] Work Phone: Comment on above: Expected: 06/28/2023 (Approximate), Expi res: 12/28/2023 Start: 06-28-2023 End: 12-28-2023 Lactate dehydrogenase [Enzymatic activity/volume] in Serum or Plasma LD LACTATE DEHYDRO Lab Routine CLL (chronic lymphocytic leukemia) (HCC) Large granular lymphocytosis Expected: 06/28/2023 (Approximate), Expires: 12/28/2023 [facility] Work Phone: Comment on above: Expected: 06/28/2023 (Approximate), Expi res: 12/28/2023 Start: 06-28-2023 End: 08-28-2023 Urate [Mass/volume] in Serum or Plasma URIC ACID BLOOD Lab Routine CLL (chronic lymphocytic leukemia) (HCC) Large granular lymphocytosis Expected: 06/28/2023 (Approximate), Expires: 08/28/2023 [facility] Work Phone: Comment on above: Expected: 06/28/2023 (Approximate), Expi res: 08/28/2023 Start: 05-22-2023 Hemoglobin A1c/Hemoglobin.total in Blood HBA1C [facility] Start: 03-21-2023 COVID-19 Vaccine () COVID-19 Vaccine () [facility] Start: 03-21-2023 Influenza vaccination Influenza Vaccine [facility] Start: 07-21-2022 ADVANCE DIRECTIVE DISCUSSION ADVANCE DIRECTIVE DISCUSSION [facility] Start: 07-21-2022 DEPRESSION ASSESSMENT DEPRESSION ASSESSMENT [facility] Start: 06-21-2022 End: 08-21-2022 FISH FOR CLL [facility] Work Phone: Comment on above: Expected: 06/21/2022, Expires: 3 Start: 06-21-2022 End: 08-21-2022 PROTEIN ELECTROPHORESIS SERUM W/INTERP [facility] Work Phone: Comment on above: Expected: 06/21/2022, Expires: 3 Start: 03-21-2022 Influenza vaccination INFLUENZA (#1) [facility] Start: 07-21-2021 ADVANCE DIRECTIVE DISCUSSION ADVANCE DIRECTIVE DISCUSSION [facility] Start: 07-21-2021 DEPRESSION ASSESSMENT DEPRESSION ASSESSMENT [facility] Start: 06-24-2019 PNEUMOCOCCAL: 65+ (2 - PPSV23 if available, else PCV20) PNEUMOCOCCAL: 65+ (2 - PPSV23 if available, else PCV20) [facility] Start: 08-19-2018 Pneumococcal Vaccine: 65+ (2 of 2 - PPSV23 or PCV20) Pneumococcal Vaccine: 65+ (2 of 2 - PPSV23 or PCV20) [facility] Start: 08-19-2018 PNEUMOCOCCAL: 65+ (2 - PPSV23 if available, else PCV20) PNEUMOCOCCAL: 65+ (2 - PPSV23 if available, else PCV20) [facility] Start: 10-30-2017 Urine screening for protein Urine Microalbumin [facility] Start: 2012 Abdominal aortic aneurysm screening Abdominal Aortic Aneurysm (AAA) Screen [facility] Start: 2012 Fall Risk Screening Fall Risk Screening [facility] Start: 2012 PNEUMOCOCCAL: 65+ (1 - PCV) PNEUMOCOCCAL: 65+ (1 - PCV) [facility] Start: 2007 RSV Vaccine (1 - 1-dose 60+ series) RSV Vaccine (1 - 1-dose 60+ series) [facility] Start: 1997 Administration of varicella zoster vaccine Zoster (Shingles) Vaccine (1 of 2) [facility] Start: 1997 SHINGRIX VACCINE (1 of 2) SHINGRIX VACCINE (1 of 2) [facility] Start: 1992 COLOGUARD (FIT-DNA) COLOGUARD (FIT-DNA) [facility] Start: 1992 Colonoscopy COLONOSCOPY [facility] Start: 1992 COLORECTAL CANCER SCREENING COLORECTAL CANCER SCREENING [facility] Start: [address] COLONOGRAPHY [facility] Start: 1992 DIABETES SCREEN DIABETES SCREEN [facility] Start: 1992 FECAL OCCULT BLOOD FECAL OCCULT BLOOD [facility] Start: 1992 SIGMOIDOSCOPY SIGMOIDOSCOPY [facility] Start: 1982 LIPID SCREEN LIPID SCREEN [facility] Start: 1966 Administration of varicella zoster vaccine Zoster (Shingles) Vaccine (1 of 2) [facility] Start: 1966 DTaP,Tdap and Td Vaccines (1 - Tdap) DTaP,Tdap and Td Vaccines (1 - Tdap) [facility] Start: 1966 SHINGRIX VACCINE (1 of 2) SHINGRIX VACCINE (1 of 2) [facility] Start: 1966 Urine microalbumin profile [facility] Start: 1965 Adult BMI Follow Up Plan Adult BMI Follow Up Plan [facility] Start: 1965 ANNUAL PCP TEAM CHRONIC DISEASE VISIT ANNUAL PCP TEAM CHRONIC DISEASE VISIT [facility] Start: 1965 Hepatitis B surface antibody level LDL CHOLESTEROL [facility] Start: 1965 HEPATITIS C SCREENING HEPATITIS C SCREENING [facility] Start: 1965 Hepatitis C screening Hepatitis C Screening [facility] Start: 1957 3 comp foot exam completed DIABETIC FOOT EXAM [facility] Start: 1957 Diabetic foot examination Diabetic Foot Exam [facility] Start: 1957 Glaucoma screening Dilated Retinal Exam [facility] Start: 1957 Hepatitis B screening URINE ALBUMIN:CREATININE RATIO [facility] Start: 1957 Hepatitis C antibody, confirmatory test DILATED RETINAL EXAM [facility] Start: 01-18-1948 COVID-19 VACCINE (#1) COVID-19 VACCINE (#1) [facility] Start: 1947 ABDOMINAL AORTIC ANEURYSM SCREENING ABDOMINAL AORTIC ANEURYSM SCREENING [facility] Start: 1947 Glaucoma screening Diabetic Ophthalmology Exam [facility] Start: 1947 Medicare Annual Wellness Visit Medicare Annual Wellness Visit [facility] Start: 1947 Tobacco Counseling Tobacco Counseling [facility] CARDIOPULMONARY REHABILITATION CARDIOPULMONARY REHABILITATION Cardiac Services Ordered: 07/17/2023 [facility] Comment on above: Ordered: 07/17/2023 CARDIOPULMONARY REHABILITATION CARDIOPULMONARY REHABILITATION Cardiac Services Ordered: 07/23/2023 [facility] Comment on above: Ordered: 07/23/2023 CARDIOPULMONARY REHABILITATION CARDIOPULMONARY REHABILITATION Cardiac Services Ordered: 07/24/2023 [facility] Comment on above: Ordered: 07/24/2023 CARDIOPULMONARY REHABILITATION CARDIOPULMONARY REHABILITATION Cardiac Services Ordered: 08/04/2023 [facility] Comment on above: Ordered: 08/04/2023 CARDIOPULMONARY REHABILITATION CARDIOPULMONARY REHABILITATION Cardiac Services Ordered: 08/07/2023 [facility] Comment on above: Ordered: 08/07/2023 CARDIOPULMONARY REHABILITATION CARDIOPULMONARY REHABILITATION Cardiac Services Ordered: 08/13/2023 [facility] Comment on above: Ordered: 08/13/2023 CARDIOPULMONARY REHABILITATION CARDIOPULMONARY REHABILITATION Cardiac Services Ordered: 08/14/2023 [facility] Comment on above: Ordered: 08/14/2023 CARDIOPULMONARY REHABILITATION CARDIOPULMONARY REHABILITATION Cardiac Services Ordered: 08/20/2023 [facility] Comment on above: Ordered: 08/20/2023 CARDIOPULMONARY REHABILITATION CARDIOPULMONARY REHABILITATION Cardiac Services Ordered: 08/25/2023 [facility] Comment on above: Ordered: 08/25/2023 Cath plmt l hrt & ar ts w/njx & angio img s&i CORS + LV GRAM/PRESS nstemi [facility]TH [facility]ATH [facility] Immunizations Immunization Date Immunization Notes Care Provider Fa cili 08-02-2023 Influenza Vaccine, Quadrivalent, Adjuvanted [facility] 08-02-2023 influenza virus vaccine, unspecified formulation [facility] 04-02-2022 influenza, high-dose , quadrivalent vaccine (FLUZONE HIGH DOSE QUADRIVALENT) Faraz Beckham MD Work Phone: [facility] 04-02-2022 influenza virus vaccine, unspecified formulation [address] 03-30-2020 influenza, high dose seasonal, preservative-free Faraz Beckham MD Work Phone: [facility] 04-01-2019 influenza, high dose seasonal, preservative-free Faraz Beckham MD Work Phone: [facility] 06-24-2018 pneumococcal conjuga te vaccine, 13 valent Faraz Beckham MD Work Phone: [facility] 05-13-2018 influenza, high dose seasonal, preservative-free Faraz Beckham MD Work Phone: [facility] 05-28-2017 influenza, injectabl e, quadrivalent, contains preservative Faraz Beckham MD Work Phone: [facility] Payers Date Payer Category Payer Self-pay [id number] 2021 Private Health Insurance [id number] 2012 Medicare [id number] 1959 Medicare [id number] 1959 Unknown [id number] 1947 Unknown [id number] 2.16.84 0.1.043174.3.579.2.593 1947 Unknown [id number] 2.16.84 0.1.026825.3.579.2.593 1947 Unknown [id number] 2.16.84 0.1.842797.3.579.2.1259 1947 Unknown [id number] 2.16.84 0.1.055612.3.579.2.1259 1947 Unknown [id number] 2.16.84 0.1.672966.3.579.2.1259 1947 Unknown [id number] 2.16.84 0.1.108017.3.579.2.1259 1947 Unknown [id number] 2.16.84 0.1.143676.3.579.2.1259 1947 Unknown [id number] 2.16.84 0.1.054066.3.579.2.1259 1947 Unknown [id number] 2.16.840 .1.122409.3.579.2.1259 1947 Unknown [id number] 2.16.840 .1.060298.3.579.2.1259 1947 Unknown [id number] 2.16.8 40.1.774591.3.579.2.1286 1947 Unknown [id number] 2.16.8 40.1.620621.3.579.2.1286 1947 Unknown [id number] 2.16.8 40.1.645735.3.579.2.1286 1947 Unknown [id number] 2.16.8 40.1.817548.3.579.2.1286 1947 Unknown [id number] 2.16.8 40.1.061688.3.579.2.1286 1947 Unknown [id number] 2.16.8 40.1.117658.3.579.2.1286 1947 Unknown [id number] 2.16.8 40.1.473013.3.579.2.1286 1947 Unknown [id number] 2.16.8 40.1.385292.3.579.2.128 1947 Unknown [id number] 2.16.8 40.1.971018.3.579.2.1286 1947 Unknown [id number] 2.16.8 40.1.145058.3.579.2.1285 1947 Unknown [id number] 2.16.8 40.1.028200.3.579.2.1286 1947 Unknown [id number] 2.16.8 40.1.113965.3.579.2.1285 1947 Unknown [id number] 2.16.84 0.1.320714.3.579.2.1286 1947 Unknown [id number] 2.16.84 0.1.977199.3.579.2.1285 1947 Unknown [id number] 2.16.84 0.1.223072.3.579.2.128 1947 Unknown [id number] 2.16.84 0.1.833354.3.579.2.1285 1947 Unknown [id number] 2.16.84 0.1.466212.3.579.2.1285 1947 Unknown [id number] 2.16.84 0.1.754566.3.579.2.1285 1947 Unknown [id number] 2.16.8 40.1.072027.3.579.2.1286 1947 Unknown [id number] 2.16.84 0.1.128279.3.579.2.1286 1947 Unknown [id number] 2.16.84 0.1.332192.3.579.2.1286 1947 Unknown [id number] 2.16.84 0.1.789493.3.579.2.1286 1947 Unknown [id number] 2.16.84 0.1.348172.3.579.2.1286 1947 Unknown [id number] 2.16.84 0.1.507931.3.579.2.1286 1947 Unknown [id number] 2.16.84 0.1.477292.3.579.2.1286 1947 Unknown [id number] 2.16.84 0.1.608983.3.579.2.1286 1947 Unknown [id number] 2.16.84 0.1.873291.3.579.2.1286 1947 Unknown [id number] 2.16.840 .1.663538.3.579.2.6 1947 Unknown [id number] 2.16.84 0.1.310368.3.579.2.1286 1947 Unknown [id number] 2.16.8 40.1.175032.3.579.2.1286 1947 Unknown [id number] 2.16.8 40.1.812364.3.579.2.1286 1947 Unknown [id number] 2.16.8 40.1.204939.3.579.2.1286 Unknown [id number] Unknown [id number] 2.16.8 40.1.767225.3.579.2.531 Unknown [id number] 2.16.8 40.1.276856.3.579.2.531 Unknown [id number] 2.16.8 40.1.347670.3.579.2.531 Worker's Compensation [id number] Social History Date Type Detail Facility Tobacco smoking stat us [facility] Unknown if ever smoked [facility] Start: 1945 Sex Assigned At Male [facility] Start: 07-21-1964 End: 04-26-2024 Tobacco smoking status AKIS Smokes tobacco daily [facility] Start: 07-21-1964 End: 07-21-2019 History of tobacco use Cigarette Smoker [facility] History of tobacco use Passive smoker [facility] Start: 06-18-2022 End: 04-26-2024 Tobacco use and exposure Smokeless tobacco non-user [facility] Start: 1945 Sex Assigned At Not on file [facility] Start: 01-16-2021 End: 06-21-2022 Tobacco smoking status NHIS Ex-smoker [facility] End: 07-21-2019 History of tobacco use Current smoker [facility] Start: 06-21-2022 End: 01-16-2024 Alcohol intake Not Asked [facility] Start: 06-11-2022 End: 06-21-2022 Exposure to SARS-CoV-2 (event) Not sure [facility] Start: 08-31-2020 End: 05-06-2022 Cigarettes smoked current (pack per day) - Reported 0.5 [facility] Start: 05-01-2023 End: 04-26-2024 Alcohol intake Current drinker of alcohol (finding) [facility] Start: 08-09-2019 End: 08-31-2020 Alcohol Use Disorder Identification Test - Consumption [AUDIT-C] [facility] Frequency of Alcohol Consumption Never [facility] Start: 05-06-2022 Tobacco Comment 4-5 cigarettes per day [facility] Start: 08-07-2018 Alcohol Comment once a month [facility] Start: 04-26-2024 Tobacco Comment 4-5 cigarettes per day or at least 1 pack a week [facility] Start: 04-26-2024 Alcohol Comment 1 drink a year at least [facility] Start: 04-26-2024 Gender identity Identifies as male gender (finding) [facility] Start: 04-26-2024 Sexual orientation Heterosexual (finding) [facility] Start: 04-27-2024 Alcoholic beverage intake Ex-drinker (finding) [facility] Has the [employer], Informaat, or water Spontly threatened to shut off services in your home in past 12Mo No [facility] How often to you hav e a drink containing alcohol? 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 Srg - Sna - [id number] Start: 11-06-2021 System Cor Stnt 3.5mm X 23mm 145cm [employer] Arlin - [id number] ()[id number] [id number], [id number] FDA Start: 04-07-2023 System Cor Stnt 3.0mm X 18mm 145cm [employer] [facility] - [id number] ()[id number] [id number], [id number] FDA Start: 04-07-2023 System Cor Stnt 3.0mm X 18mm 145cm [employer] - [id number] ()[id number] [id number], [id number] FDA Start: 04-07-2023 System Cor Stnt 3.5mm X 28mm 145cm [employer] - [id number] ()[id number] [id number], [id number] FDA Start: 04-07-2023 System Cor Stnt 4.0mm X 12mm 145cm [employer] Arlin - [id number] ()[id number](1 [id number], [id number] FDA Start: 04-28-2024 Goals Date Patient Goal Desired Activity /State Personal health goal Comment on above: Formatting of this n ote might be different from the original. Evaluation of progress towards goal: pt wants to discharge home independently Personal health goal Comment on above: Formatting of this n ote might be different from the original. Evaluation of progress towards goal: In progress: Return home with and outpatient f/u needed. Personal health goal Comment on above: Formatting of this n ote might be different from the original. Evaluation of progress towards goal: Patient plans for a safe discharge home self care with spouse support. Clinical Notes 06-21-2022 to 04-29-2024 Telephone Encounter - Carlotta Josef - 04/29/2024 2:46 AM EDTTelephone Encounter - Carlotta Bahena - 04/29/2024 2:46 AM EDTTelephone Encounter - Carlotta Josef - 04/29/2024 2:46 AM EDT Note Date & Type Note Facility 04-29-2024 Misc[phone] [facility] Sammie re abnormal rhythm, rm A534 Secure chat sent documented in this encounter [facility] 04-29-2024 Telephone encounter Note Contract: jake [phone] [facility] Sammie re abnormal rhythm, rm A534 [facility] 04-29-2024 Telephone encounter Note Secure chat sent [facility] 04-28-2024 Miscellaneous Notes Contract: britany ryder [phone] Sepideh re continuation of orders; Rm A534 [facility] message was sent to Dana Aguilera via secure chat documented in this encounter [facility] 04-28-2024 Telephone encounter Note Contract: britany d [phone] [facility] Sepideh re continuation of orders; Rm A534 [facility] 04-28-2024 Telephone encounter Note ppcrd message was sent to Dana Aguilera via secure chat [facility] 04-28-2024 Miscellaneous Notes Contract: JAKE Cochran @[facility] called regarding elevated blood pressure. I sent Deon Lee a secure chat message. documented in this encounter [facility] 04-28-2024 Telephone encounter Note Contract: JAKE Cochran @[facility] called regarding elevated blood pressure. I sent Deon Rosa a secure chat message. [facility] 04-26-2024 Miscellaneous Notes Contract: [facility] - new consult for elevated trops Contract: [facility] - Sent Secure Chat to Dr. Cotton Routed call to [facility] Consult Desk documented in this encounter [facility] 04-26-2024 Telephone encounter Note Contract: [facility] - new consult for elevated trops [facility] 10-07-2024 Telephone encounter Note Contract: [facility] - Sent Secure Chat to Dr. Cotton Routed call to [facility] Consult Desk [facility] 04-12-2024 Note [facility] Cardiology Clinic Note Chief Complaint: New patient here to establish care. Ref from Dr. Mcgrath for CAD. He sees vascular surgery in [place] for PAD and carotid artery stenosis. Last heart cath was performed in Mar 2023 at [facility]. He was last seen in their office for follow up in Aug 2023. Patient states he's got a lot of side effects from Brilinta, and would like to go back to Plavix. He says Enevo was pushing Brilinta. Smokes 1-2 cigarettes a [...] work 30 hours per week for the [employer]. UPDATE 04/12/2024 He is doing fairly well; he denies lightheadedness, dizziness, or syncope He said no further arm pain that was a symptom prior to requiring stents. Looking at the report of his cardiac catheterization and stent placement 04/07/2023: 99% stenosis in the stented portion of the mid right coronary artery with thrombus PMHx: Coronary artery disease involving unga coronary artery of unga heart without angina pectoris Abnormal result of cardiovascular function study, unspecified Hypertension Type 2 diabetes mellitus 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 ([facility]) Status post angioplasty with stent PAD (peripheral artery disease) ([facility]) Claudication ([facility]) Bilateral carotid artery stenosis Mixed hyperlipidemia Asymptomatic bradycardia NSTEMI (non-ST elevated myocardial infarction) ([facility]) Cardiology ROS: Review of Systems Cardiovascular: Positive [...] moderate annular calcification. (more content not included)... [facility] 03-05-2024 Note XR CHEST 2 VWS Procedure: Chest x-ray performed Number of views:PA and lateral History:Weakness and fatigue Comparison:04/04/2023 Findings: The heart and lungs show no acute findings, and the mediastinum and debbie are grossly negative . Impression: No acute change. Finalized by Aurelia Payton DO on 03/05/2024 4:27 PM [facility] 01-16-2024 History of Present illness Narrative Images from the original note were not included. NAME: MorejonIla CLINIC NO.: [id number] DATE OF SERVICE: January 16, 2024 ([facility] [place]) Some elements in this clinic note that [...] Reverse Chronological Order 04/04/2023 - Admitted to [facility] with NSTEMI Underwent placement of drug eluting [...] Has been [facility] more, [facility] Updated Visit, December 27, 2022: 13 year [...] which included preparing to see the patient, avvp-tz-[id number] patient care, completing clinical documentation, obtaining and/or reviewing separately obtained history, performing a medically appropriate examination, counseling and educating the patient/family/caregiver, ordering medications, tests, or procedures, and independently interpreting results (not separately reported). Faraz Beckham MD, CPE Hematology and Oncology Services Provided at: [place], [place] Scribe Attestation: This note was scribed [...] under my direction. CC: Cruzito Mcgrath MD ([facility]) [address] [facility] [address] documented in this encounter [facility] 01-16-2024 Note HNO ID: [id number] Author: FARAZ BECKHAM MD Service: ? Author Type: Physician Type: Progress Notes Filed: 01/16/2024 18:22 Note Text: NAME: Ila Morejon [facility] NO.: [id number] DATE OF SERVICE: January 16, 2024 ([facility]) [...] Reverse Chronological Order 04/04/2023 - Admitted to [facility] with NSTEMI Underwent placement of drug eluting [...] Has been [facility] more, [facility] Updated Visit, December 27, 2022: 13 year [...] 20 mg tablet (more content not included)... [place] 01-16-2024 Instructions Faraz Beckham MD - 01/16/2024 2:33 PM EDT RTC in 6 months, with labs same day. documented in this encounter [facility] 09-03-2023 History of Present illness Narrative Ila Williamsons Date of visit: 09/03/2023 Date of : 1945 Age: 78 y.o. Patient Active Problem List Diagnosis Coronary artery disease involving unga coronary artery of unga heart without angina pectoris Abnormal result of cardiovascular function study, unspecified Hypertension Type 2 diabetes mellitus 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 ([facility]) Status post angioplasty with stent PAD (peripheral artery disease) ([facility]) Claudication ([facility]) Bilateral carotid artery stenosis Mixed hyperlipidemia Asymptomatic bradycardia NSTEMI (non-ST elevated myocardial infarction) ([facility]) No Known Allergies Current Outpatient Medications Medication [...] mg total) by mouth in the morning. kithfqjx-sclp-NJ-calcium &mins (THERAGRAN-M) 9 mg iron-400 mcg tablet [...] states needs ppm imp - per sonam mendoza with ep myles while ep md in [...] work 30 hours per week for the [employer]. Past Medical History: Diagnosis Date Abnormal result of cardiovascular function study, unspecified Coronary atherosclerosis due to calcified coronary lesion Dental disease full dentures Diabetes mellitus ([facility]) Diabetes mellitus type 2, controlled ([facility]) Hyperlipidemia Hypertension Sleep apnea bipap Visual impairment No data recorded No data recorded No data recorded Past Surgical History: Procedure Laterality Date ANGIOPLASTY Bilateral 12/2020 legs CARDIAC CATHETERIZATION 2016 stents x2 Cardiac catheterization N/A 04/07/2023 Performed by Tayler Corey MD at [facility] CARDIAC CATH LABS COLONOSCOPY N/A 12/26/2022 Performed by Chino Raza DO at [facility] Coronary angiogram only N/A 04/07/2023 Performed by Tayler Corey MD at [facility] CARDIAC CATH LABS DAVINCI REPAIR HERNIA INGUINAL Left 11/06/2021 Performed by Chino Raza DO at [facility] drug eluting stent right coronary artery N/A 04/07/2023 Performed by Tayler Corey MD at [facility] CARDIAC CATH LABS SKIN BIOPSY [...] Cardiac Electrophysiology 2. Coronary artery disease involving unga coronary artery of unga heart without angina pectoris 3. Hypertension, unspecified type 4. NSTEMI (non-ST elevated myocardial infarction) ([facility]) Sinus node dysfunction ASCVD/PCI March 2023 Preserved [...] PCP: CRUZITO MCGRATH MD Referring Physician: Debbie Hirsch MD [address] [place] [address] OXANA Lopez 09/03/23 1256 documented in this encounter [facility] 08-27-2023 History of Present illness Narrative Ila Morejon Date of visit: 08/27/2023 Date of : 1945 Age: 78 y.o. Patient Active Problem List Diagnosis Coronary artery disease involving unga coronary artery of unga heart without angina pectoris Abnormal result of cardiovascular function study, unspecified Hypertension Type 2 diabetes mellitus 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 ([facility]) Status post angioplasty with stent PAD (peripheral artery disease) ([facility]) Claudication ([facility]) Bilateral carotid artery stenosis Mixed hyperlipidemia Asymptomatic bradycardia NSTEMI (non-ST elevated myocardial infarction) ([facility]) No Known Allergies Current Outpatient Medications Medication [...] mg total) by mouth in the morning. htzoueme-xudv-JZ-calcium &mins (THERAGRAN-M) 9 mg iron-400 mcg tablet [...] lesion Dental disease full dentures Diabetes mellitus ([facility]) Diabetes mellitus type 2, controlled ([facility]) Hyperlipidemia Hypertension Sleep apnea bipap Visual impairment No data recorded No data recorded No data recorded Past Surgical History: Procedure Laterality Date ANGIOPLASTY Bilateral 12/2020 legs CARDIAC CATHETERIZATION 2016 stents x2 Cardiac catheterization N/A 04/07/2023 Performed by Tayler Corey MD at [facility] CARDIAC CATH LABS COLONOSCOPY N/A 12/26/2022 Performed by Chino Raza DO at [facility] Coronary angiogram only N/A 04/07/2023 Performed by Tayler Corey MD at [facility] CARDIAC CATH LABS DAVINCI REPAIR HERNIA INGUINAL Left 11/06/2021 Performed by Chino Raza DO at [facility] drug eluting stent right coronary artery N/A 04/07/2023 Performed by Tayler Corey MD at [facility] CARDIAC CATH LABS SKIN BIOPSY [...] by mouth 3 (three) times a day. acmtyljp-ntma-DJ-calcium &mins (THERAGRAN-M) 9 mg iron-400 mcg tablet [...] seconds CAD s/p stent to RCA, OM2 2016 Low normal EF TTE 03/2023 Mild MR [...] Referring Physician: Cruzito Mcgrath MD [address] [place] [address] documented in this encounter [facility] 08-26-2023 Miscellaneous Notes Called patient to remind them to bring their most current copy of their medication list with them to their appt. Patient verbalizes understanding. documented [facility] this encounter [facility] 08-26-2023 Telephone encounter Note Called patient to remind them to bring their most current copy of their medication list with them to their appt. Patient verbalizes understanding. [facility] 08-04-2023 History of Present illness Narrative Patient noted to have a history of bradycardia Scheduled pt for 48 HM on 08/05/23 at 9am. Made appt in the [place] office for 08/27/23 at 2pm. Called pt and he verbalizes understanding.slm documented in this encounter [facility] 08-04-2023 History of Present illness Narrative Cardiac rehab has noted asymptomatic bradycardia with heart rate into the 20s. Holter monitor ordered Patient should have follow-up in the office documented in this encounter [facility] 07-16-2023 Note HNO ID: [id number] Author: Faraz Beckham MD Service: ? Author Type: Physician Type: Progress Notes Filed: 07/16/2023 7:35 PM Note Text: NAME: Ila Morejon CLINIC NO.: [id number] DATE OF SERVICE: July 16, 2023 ([facility]) [...] Reverse Chronological Order 04/04/2023 - Admitted to [facility] with NSTEMI Underwent placement of drug eluting [...] Has been [facility] more, [facility]. Updated Visit, December 27, 2022: 13 year [...] D3, 10 mcg (more content not included)... [place] 12-27-2022 Instructions Faraz Beckham MD - 12/27/2022 2:28 PM EDT RTC in 6 months with labs same day. documented in this encounter [facility] 12-27-2022 History of Present illness Narrative Images from the original note were not included. NAME: Ila Morejon CLINIC NO.: [id number] DATE OF SERVICE: December 27, 2022 ([facility]) [...] which included preparing to see the patient, jsod-kt-[id number] patient care, completing clinical documentation, obtaining and/or reviewing separately obtained history, performing a medically appropriate examination, counseling and educating the patient/family/caregiver, ordering medications, tests, or procedures, and independently interpreting results (not separately reported). Faraz Beckham MD, CPE Hematology and Oncology Services Provided at: [place], [place] CC: Cruzito Mcgrath MD ([facility]) [address] [facility] [address] [address] documented in this encounter [facility] 06-27-2022 Instructions Faraz Beckham MD - 06/27/2022 5:37 PM EST Keep prior documented in this encounter [facility] 06-27-2022 History of Present illness Narrative Images from the original note were not included. NAME: Ila Morejon CLINIC NO.: [id number] DATE OF SERVICE: June 27, 2022 ([facility]) [...] CPE Hematology and Oncology Services Provided at: [place], [place] CC: Cruzito Mcgrath MD (Dr) [address] [facility] [address] documented in this encounter [facility] 06-27-2022 Nurse Note Clinical questionnaires incomplete due to phone call. Miryam Gunter MA documented in this encounter [facility] 06-21-2022 Instructions Faraz Beckham MD - 06/21/2022 3:40 PM EST Phone call next week with results RTC in 6 months with labs same day. documented in this encounter [facility] 06-21-2022 History of Present illness Narrative Images from the original note were not included. NAME: Ila Morejon CLINIC NO.: [id number] DATE OF SERVICE: June 21, 2022 Referring [...] which included preparing to see the patient, dyuz-im-byxo patient care, completing clinical documentation, obtaining and/or reviewing separately obtained history, performing a medically appropriate examination, counseling and educating the patient/family/caregiver, ordering medications, tests, or procedures, and independently interpreting results (not separately reported). Faraz Beckham MD, CPE Hematology and Oncology Services Provided at: [place], [place] CC: Cruzito Mcgrath MD ([facility]) [address] [facility] [address] [address] documented in this encounter [facility] Evaluation note No assessment inform ion [facility] Evaluation note Diagnosis Lymphocytosis- Primary Lymphocytosis (symptomatic) [facility] Diagnosis CLL (chronic lymphocytic leukemia) (HCC)- Primary Chronic lymphoid leukemia, without mention of having achieved remission Large granular lymphocytosis Lymphocytosis (symptomatic) [facility] Diagnosis CLL (chronic lymphocytic leukemia) (HCC)- Primary Chronic lymphoid leukemia, without mention of having achieved remission Large granular lymphocytosis Lymphocytosis (symptomatic) Stage 3 chronic kidney disease, unspecified whether stage 3a or 3b CKD (HCC) Type 2 diabetes mellitus 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, unspecified whether intermediate insulin use ([facility]) [facility]* Diagnosis Bradycardia- Primary Other specified cardiac dysrhythmias [facility] History of coronary angioplasty with insertion of stent- Primary Pulmonary hypertension ([facility] [facility] Other chronic pulmonary heart diseases Primary hypertension Unspecified essential hypertension Hx of hyperlipidemia Sinus pause [facility] Diagnosis Coronary artery disease involving unga coronary artery of unga heart without angina pectoris- Primary Sinus pause Hypertension, unspecified type NSTEMI (non-ST elevated myocardial infarction) ([facility]) Acute myocardial infarction, subendocardial infarction, episode of care unspecified [facility] Diagnosis CLL (chronic lymphocytic leukemia) ([facility])- Primary Chronic lymphoid leukemia, without mention of having achieved remission Large granular lymphocytosis Lymphocytosis (symptomatic) Stage 3 chronic kidney disease, unspecified whether stage 3a or 3b CKD (HCC) [facility] Diagnosis Onset Date Resolution Status PAD (peripheral artery disease) [facility] Work Phone: Evaluation note* Diagnosis Onset Date Resolution Status PAD (peripheral artery disease) acute Spondylosis of lumbar region without myelopathy or radiculopathy acute Trochanteric bursitis of both hips acute Claudication of left lower extremity acute Diminished pulses in lower extremity acute Former smoker acute Left leg pain acute PAD (peripheral artery disease) [facility] Work Phone: InstructionsNot on filedocumented in this encounter [facility] this [facility] filed[facility] filed[facility] filedocumented in [facility] filedocumented in this encounter [facility] filedocumented in this [facility] (narrative)* Consultation (Routine) - Pending Review Specialty Diagnoses / Procedures Referred By Lynne paniagua Referred To Contact Cardiology Diagnoses Sinus pause Debbie Hirsch MD [address] [place] [address] Jerry An MD [facility] [place] [address] [address] Referral ID Status Reason Start Date Expiration Date Visits Requested Visits Authorized [id number] Pending Review Specialty Services Required 08/27/2023 08/26/[address] [facility] for visit Narrative* Consultation (Routine) - Pending Review Specialty Diagnoses / Procedures Referred By Lynne paniagua Referred To Contact Cardiac Rehabilitation Diagnoses S/P drug eluting coronary stent placement Procedures [facility] [place] Tayler Corey MD [address] [place] [address] [facility] Cardiac Rehab Billing [address] [place] [address] Referral ID Status Reason Start Date Expiration Date V isits Requested Visits Authorized [id number] Pending Review 04/07/2023 04/06/2024 36 36 [facility] Chief Complaint and Reason for Visit Chief Complaint Z01.818 I70.213 Chief Complaint Unknown Chief Complaint Refer Dr Mcgrath: PV D, bilat carotid stenosis I70.213 Reason for Visit PAD (peripheral daiana ry disease) Chief Complaint Refer Dr Mcgrath: PV D, bilat carotid stenosis I70.213 Radiculopathy, lumbar region 4 WK F/U GO OVER PVR [facility] I70.213 Reason for Visit PAD (peripheral daiana ry disease) Spondylosis of lumbar region without myelopathy or radiculopathy Trochanteric bursitis of both hips Claudication of left lower extremity Diminished pulses in lower extremity Former smoker Left leg pain PAD (peripheral artery disease) Advance Directives No Advanced Directives Records Found Advance Directive Response Recorded Date/ Time Advance Directives No January 01 4:38pm Documents on File Type Date Recorded Patient Hand Sewer Expl anation Durable 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 [employer] 04/14/2023 3:27 PM Living Will 04/14/2023 3:19 PM Latest Code Status on File Code Status Date Activated Date Inactivated Comments Full Code 04/05/2023 2:40 PM 04/08/2023 6:56 PM Documents on File Type Date Recorded Patient Hand Sewer Expl anation 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 [employer] 04/14/2023 3:27 PM Living Will 04/14/2023 3:19 PM Latest Code Status on File Code Status Date Activated Date Inactivated Comments Full Code 04/05/2023 2:40 PM 04/08/2023 6:56 PM Date Activated Date Inactivated Comments 04/05/2023 2:40 PM 04/08/2023 6:56 PM Date Activated Date Inactivated Comments 04/27/2024 12:28 PM Date Activated Date Inactivated Comments 04/26/2024 5:35 AM 04/27/2024 12:19 PM Date Activated Date Inactivated Comments 04/05/2023 2:40 PM 04/08/2023 6:56 PM Summary [...] Holter monitor 24-48 hour Wayne Donald MD [address] [place] [address] Referral ID Status Reason Start Date Expiration Date V isits Requested Visits Authorized [id number] Pending Review 08/04/2023 08/03/2024 1 1 Additional [...] pital DATE CREATED AUTHOR AUTHOR'S ORGANIZ ATION 01/18/2024 [place] DATE CREATED AUTHOR AUTHOR'S ORGANIZ ATION 03/10/2024 [facility] DATE CREATED AUTHOR AUTHOR'S ORGANIZ ATION 04/13/2024 [facility] DATE CREATED AUTHOR AUTHOR'S ORGANIZ ATION 04/22/2024 [facility] DATE CREATED AUTHOR AUTHOR'S ORGANIZ ATION 04/30/2024 [facility] DATE CREATED AUTHOR AUTHOR'S ORGANIZ ATION 05/04/2024 [facility] Source Comments (unrecognize d section and content) In the event this informatio n is protected by the Federal Confidentiality of Alcohol and Drug Abuse Patient Records regulations: The Federal rules restrict any use of the information to criminally investigate or prosecute any alcohol or drug abuse patient.[facility] the event this information is protected by the Federal Confidentiality of Alcohol and Drug Abuse Patient Records regulations: The Federal rules restrict any use of the information to criminally investigate or prosecute any alcohol or drug abuse patient.[facility] Hospital[facility] the event this information is protected by the Federal Confidentiality of Alcohol and Drug Abuse Patient Records regulations: The Federal rules restrict any use of the information to criminally investigate or prosecute any alcohol or drug abuse patient.[facility] Hospital[facility] the event this information is protected by the Federal Confidentiality of Alcohol and Drug Abuse Patient Records regulations: The Federal rules restrict any use of the information to criminally investigate or prosecute any alcohol or drug abuse patient.[facility] Hospital[facility] the event this information is protected by the Federal Confidentiality of Alcohol and Drug Abuse Patient Records regulations: The Federal rules restrict any use of the information to criminally investigate or prosecute any alcohol or drug abuse patient.[facility] Reason for Visit (unrecogniz ed section and content) Reason Comments leukocytosis Reason Comments Established Patient Reason Comments CLL Reason Comments Follow-up OV F/U 1 MO BRADYCAR FUNMILAYO, HM DONE PER LLD SCHED W/PT Reason Comments New Patient ov (consult) per MS sinus pause states needs ppm imp - per sonam [facility] with ep myles while ep in office - shlomo w pt Specialty Diagnoses / Procedures Referred By Lynne paniagua Referred To Contact Cardiology Diagnoses Sinus pause Debbie Hirsch MD [address] [place] [address] Jerry An MD [address] [place] [place] [address] [place] [id number] Referral ID Status Reason Start Date Expiration Date Visits Requested Visits Authorized [id number] Pending Review Specialty Services Required 08/27/2023 08/26/2024 1 1 Reason Comments Leukemia Reason Onset Date Comments new consult 04/26/2024 ElevShruti orantess Reason Onset Date Comments Hypertension 04/28/2024 Reason Onset Date Comments continuation of orders 04/28/2024 Contract: ppcr [id number] [facility] Sepideh re continuation of orders; A534 Reason Onset Date Comments abnormal rhythm 04/29/2024 Care Teams (unrecognized sec tion and content) [employer] Relationship Specialty Start Date End Date Cruzito Mcgrath [address] [place] [address] PCP - General Family Medicine 06/21/22 [employer]ic Relationship Specialty Start Date End Date Cruzito Mcgrath [address] [employer] [place] [address] PCP - General Family Medicine 06/21/22 [employer] Mechanic Relationship Specialty Start Date End Date Cruzito Mcgrath [address] [employer] [address] [address] PCP - General Family Medicine 06/21/22 [employer] Mechanic Relationship Specialty Start Date End Date Cruzito Mcgrath MD [address] [place] [address] PCP - General Family Medicine 04/19/21 [employer] Mechan[employer] Relationship Specialty Start Date End Date Cruzito Mcgrath MD [address] [place] [address] PCP - General Family Medicine 04/19/21 [employer] Relationship Specialty Start Date End Date Cruzito Mcgrath MD [address] [place] [address] PCP - General Family Medicine 04/19/21 [employer] Relationship Specialty Start Date End Date Cruzito Mcgrath MD [address] [place] [address] PCP - General Family Medicine 04/19/21 [employer] Relationship Specialty Start Date End Date Cruzito Mcgrath MD [address] [place] [address] PCP - General Family Medicine 04/19/21 [employer] Relationship Specialty Start Date End Date Cruzito Mcgrath MD [address] [place] [address] PCP - General Family Medicine 04/19/21 [employer] Mechanic Relationship Specialty Start Date End Date Cruzito Mcgrath MD [address] [place] [address] PCP - General Family Medicine 04/19/21 [employer] Mechanic Relationship Specialty Start Date End Date Cruzito Mcgrath MD [address] [place] [address] PCP - General Family Medicine 04/19/21 [employer] Mechanic Relationship Specialty Start Date End Date Cruzito Mcgrath MD [address] [place] [address] PCP - General Family Medicine 04/19/21 [employer] Mechanic Relationship Specialty Start Date End Date Cruzito Mcgrath MD [address] [place] [address] PCP - General Family Medicine 04/19/21 [employer] Mechanic Relationship Specialty Start Date End Date Cruzito Mcgrath MD [address] [place] [address] PCP - General Family Medicine 04/19/21 [employer] Mechanic Relationship Specialty Start Date End Date Cruzito Mcgrath MD [address] [place] [address] PCP - General Family Medicine 04/19/21 [employer]ic Relationship Specialty Start Date End Date Cruzito Mcgrath MD [address] [place] [address] PCP - [facility] Medicine 04/19/21 Team Status: Inactive Member Role Status Dates Arminda Valverde DO Attending Provider Active Sta rt: December 27, 2023 End: December 27, 2023 [employer] Relationship Specialty Start Date End Date Cruzito Mcgrath [address] [place] [address] PCP - General Family Medicine 06/21/22 Team [...] April 07, 2024 End: April 07, 2024 Team Status: Inactive Member Role Status Dates Cruzito Mcgrath MD Primary Care Provider Active S tart: April 13, 2024 End: April 13, 2024 Solis Agarwal MD Attending Provider Active Star t: April 13, 2024 End: April 13, 2024 Team Status: Inactive Member Role Status Dates Cruzito Mcgrath MD Primary Care Provider Active S tart: April 14, 2024 End: April 14, 2024 Luiz Glass MD Attending Provider Active Start: April 14, 2024 End: April 14, 2024 Team Status: Inactive Member Role Status Dates Cruzito Mcgrath MD Primary Care Provider Active S tart: April 20, 2024 End: April 20, 2024 Luiz Glass MD Attending Provider Active Start: April 20, 2024 End: April 20, 2024 [employer] Relationship Specialty Start Date End Date Cruzito Mcgrath MD PCP - General Family Medicine 04/19/21 [employer] Relationship Specialty Start Date End Date Cruzito Mcgrath MD PCP - General Family Medicine 04/19/21 [employer] Mechanic Relationship Specialty Start Date End Date Cruzito Mcgrath MD PCP - General Family Medicine 04/19/21 FOR RECORDS PERTAINING TO PATIENTS WHO ARE [...] BE BASED ON THE PRIMARY CLINICAL RECORDS. [employer] [facility]. provides no warranty or guarantee of the accuracy or completeness of information in this document.
[2024-05-05 11:38] LABS: Chol HDL Ratio 1.4; Cholesterol 86 mg/dL (<=200); HDL Cholesterol 63 mg/dL (40-60); Triglycerides 41 mg/dL (<=150); VLDL CHOLESTEROL 8.2 mg/dL
== END 2024-05-05 10:33 | disposition home or self-care (01) ==
LOC: LAB 10:32
PROVIDERS: PCP Family Medicine; Visit Provider Internal Medicine Interventional Cardiology
DX: E78.5 Hyperlipidemia, unspecified (principal)
CPT/HCPCS: 36415; 80061

== ENCOUNTER 2024-06-08 10:48 | Outpatient (OUT) | payer MEDICARE, SELFPAY ==
[2024-06-08 12:04] LABS: Estimated Average Glucose 140 mg/dL; Glycohemoglobin A1C 6.5 % (4.5-6.2)
== END 2024-06-08 10:49 | disposition home or self-care (01) ==
LOC: LAB 10:49
PROVIDERS: PCP Family Medicine; Visit Provider Family Medicine
DX: E11.65 Type 2 diabetes mellitus with hyperglycemia (principal); Z79.4 Long term (current) use of insulin
CPT/HCPCS: 36415; 83036

== ENCOUNTER 2024-06-08 10:51 | Outpatient (OUT) | payer MEDICARE, SELFPAY ==
[2024-06-08 11:27] LABS: Hemoglobin 7.8 g/dL (14.0-18.0); Mean Corpuscular HGB Conc 33.1 g/dL (29.9-35.2); Mean Corpuscular Hemoglobin 30.7 pg (25.9-34.0); Mean Corpuscular Volume 92.9 fL (80.0-94.0); Mean Platelet Volume 10.6 fL (9.5-13.5); Platelet Count 158 10^3/uL (150-450); Red Blood Count 2.54 10^6/uL (4.70-6.10); Red Cell Distribution Width 13.2 % (11.0-15.0); White Blood Count 15.5 10^3/uL (4.0-11.0)
[2024-06-08 11:56] LABS: Anion Gap 15.8; BUN Creatinine Ratio 19.4; Calcium 9.2 mg/dL (8.5-10.1); Carbon Dioxide 23.4 mmol/L (21.0-32.0); Chloride 105 mmol/L (98-107); Estimated GFR (African America 41 (>=60 mL/min/1.73m^2); Estimated GFR (Non-African Ame 33 (>=60 mL/min/1.73m^2); Glucose 154 mg/dL (74-106); Potassium 5.2 mmol/L (3.5-5.1); Sodium 139 mmol/L (136-145)
[2024-06-08 12:18] LABS: Segmented Neut Absolute Manual 6.04 10^3/uL (1.4-6.5)
[2024-06-08 12:20] LABS: Band Neutrophils Absolute 0.2 10^3/uL (0.0-0.3); Eosinophils Absolute Manual 0.15 10^3/uL (0.00-0.70); Lymphocytes Absolute Manual 8.83 10^3/uL (1.20-3.80); Monocytes Absolute Manual 0.31 10^3/uL (0.30-0.80)
[2024-06-08 12:21] LABS: Smudge Cells SEEN
[2024-06-08 13:25] LABS: Hematocrit 23.6 % (42.0-54.0)
== END 2024-06-08 10:52 | disposition home or self-care (01) ==
LOC: LAB 10:52
PROVIDERS: PCP Family Medicine; Visit Provider Internal Medicine Cardiovascular Disease
DX: R00.1 Bradycardia, unspecified (principal); E11.65 Type 2 diabetes mellitus with hyperglycemia; Z79.4 Long term (current) use of insulin
CPT/HCPCS: 36415; 80048; 83036; 85007; 85027

== ENCOUNTER 2024-06-09 07:40 | Emergency (ER) | payer MEDICARE, SELFPAY ==
[2024-06-09] VITALS (52 sets, daily range): BP systolic 156–179; BP diastolic 47–90; PULSE 40–66; TEMP 36.7–36.9; O2SAT 92–99; BMI 24.3
--- NOTE | 2024-06-09 08:09 | PC.NURSE ---
pt admits to having black stools x1 week. worsening weakness. h/o leukemia for a few years without tx. Planned pacemaker for friday, which is why he was getting bloodwork yesterday.
--- NOTE | 2024-06-09 08:10 | ECG_ITS ---
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
--- OUTSIDE RECORDS SUMMARY | 2024-06-09 08:14 | XMS_ITS | CCD ---
Author Organization [facility] Care Team Providers Care Family Consumer Science Teacher Name Role Phone Cruzito Mcgrath Primary Care Provider Luiz Glass Attending Provider [phone] ALCIDES, DR CRUZITO Yan Admitting Unavailable NADERER, DR CRUZITO aYn Attending Unavailable NADERER, DR CRUZITO Yan Primary Care Unavailable NADERER, DR CRUZITO Yan Consulting Unavailable NADERER, DR CRUZITO Yan Admitting Unavailable NADERER, DR CRUZITO Yan Attending Unavailable NADERER, DR CRUZITO Yan Primary Care Unavailable NADERER, DR CRUZITO Yan Consulting Unavailable Unavailable Primary Care Provider UnavailCruzito Streeter Primary Care Provider Cruzito Mcgrath MD Primary Care Provider DO Arminda Valverde Attending Provider [phone] Cruzito Mcgrath Primary Care Provider ABSTEPHANIE, FARAZ Attending Unavailable LURDESERECoral, CRUZITO Yan Primary Care Unavailable ABHYANKAR, FARAZ Referring Unavailable NADERER, CRUZITO Yan Primary Care Unavailable ABHYANKAR, FARAZ Referring Unavailable NADERER, CRUZITO Yan Primary Care Unavailable ABHYANKAR, FARAZ Referring Unavailable ABHYANKAR, FARAZ Attending Unavailable LURDESERECoral, CRUZITO Yan Primary Care Unavailable CHOLOAR, FARAZ Referring Unavailable MD Cruzito Mcgrath Primary Care Provider MD Luiz Glass Attending Provider Arminda Valverde Admitting Unavailable Arminda Valverde Attending Unavailable Cruzito Mcgrath Primary Care Unavailable Luiz Glass Admitting UnavailLuiz Hernandez Attending Unavailabl e Cruzito Mcgrath Primary Care Unavailable Luiz Glass Admitting UnavailLuiz Hernandez T Attending Unavailabl e TAYLER COREY Referring [...] Primary Care Unavailable DEBBIE HIRSCH Attending Unavailable CRUZITO MCGRATH Referring Unavailable CRUZITO MCGRATH Primary Care Unavailable CRUZITO MCGRATH Primary Care Unavailable LORENA HOOKS Attending Unavailable DEBBIE COTTON Consulting Unavailable LUIS VALDES Admitting Unavailable JAYY VIERA Consulting Unavailable Cruzito Mcgrath MD Primary Care Provider [phone] MATILDE HANEY Admitting Unavailable MATILDE HANEY Attending Unavailable NADIYA MASCORRO Referring Unavailable ALCIDES, CRUZITO Primary Care Unavailable DEBBIE OCTTON Consulting Unavailable LATASHA HEAD Consulting Unavailable ADAMARIS BARBER Referring Unavailable ALCIDES, CRUZITO Primary Care Unavailable GENEVA SANDERS Attending Unavail able DEBBIE HIRSCH Referring Unavailable ALCIDES, CRUZITO Primary Care Unavailable Cruzito Mcgrath MD Primary Care Provider ALCIDES, CRUZITO Attending Unavailable LURDESERECoral, CRUZITO Attending Unavailable NADERECoral, CRUZITO Attending Unavailable PETITTIBRAD Attending Unavailable NADERECoral, CRUZITO Attending Unavailable NADERECoral, CRUZITO Attending Unavailable RACHELHHOLEMELY Zeng Attending Unavailable TIMMIJEROMY Neri Attending Unavailable ALCIDES, CRUZITO Referring Unavailable NADERECoral, CRUZITO Attending Unavailable SOPHIE, FARTUN Attending Unavailable ELTAHAWY, SABINA Attending Unavailable Medications Current Medications Medication Drug Class(es) Dates Sig (Normalized) Sig (Original) amLODIPine 10 mg oral tablet (20 sources) Dihydropyridine Calcium Channel Veronica Start: 03-18-2024 take 1 tablet by mouth once daily amLODIPine (Norvasc) 10 MG tablet Indications: Coronary Arteriosclerosis , Hypertension Take 1 tablet (10 mg) by mouth Daily 30 tablet 5 04/19/2024 Active Start: 05-09-2023 take 1 tablet by sierra [...] 5 mg by mouth e very morning. apixaban 5 mg oral tablet (6 sources) Factor Xa Inhibitor Start: 04-29-2024 take 1 tablet by mouth in the morning apixaban (Eliquis) 5 MG tablet Take 5 mg by mouth in the morning and 5 mg in the evening. 04/29/2024 Active ascorbic acid 500 mg oral tablet (8 [...] mg by mouth. 0 04/09/2023 04/03/2024 Active bumetanide 1 mg oral tablet (6 sources) Loop Diuretic Start: 04-30-2024 take 1 tablet by mouth once daily bumetanide (BUMEX) 1 mg tablet Take 1 tablet (1 mg total) by mouth daily. 30 tablet 04/30/2024 Active Calcium Phos,Dibas-Vitamin D3 (3 sources) Start: 01-02-2021 take 1 tablet by mouth once daily Calcium Phos,Dibas-Vitamin D3 Active 1 TAB PO Daily January 02, 2021 12:00am cholecalciferol 0.025 mg oral tablet (20 sources) Vitamin D take 1 tablet by mouth in the morning cholecalciferol (Vitamin D-3) 25 MCG (1000 UT) tablet Take 2,000 Units by mouth in the morning. Active take 2 tablets by mouth in the m orning cholecalciferol 1,000 units tablet Take 2 tablets (2,000 Units total) by mouth in the morning. Active take 1 capsule by mouth once jaimie ly cholecalciferol, vitamin D3, 10 mcg (400 unit) cap Take 2,000 Units by mouth once daily. 0 Active Comment on above: Take 2,000 Units by mouth once daily. clopidogrel 75 mg oral tablet (18 sources) P2Y12 Platelet Inhibitor Start: 04-13-2024 take 1 tablet by mouth once daily clopidogrel (Plavix) 75 MG tablet Take 75 mg by mouth Daily 04/13/2024 Active Start: 01-02-2021 End: 03-18-2024 take 75 mg by mouth once daily Clopidogrel Discontinue d 75 MG PO Daily January 02, 2021 12:00am March 18, 2024 9:42am Comment on above: Take 75 mg by mouth once daily. Continuous Blood Gluc Palliative Care Nurse (FreeStyle Silvino 2 Latimer) device (5 sources) Start: 10-24-2023 Continuous Blood Gluc Palliative Care Nurse (FreeStyle Silvino 2 Latimer) device Indications: Type 2 diabetes mellitus with hyperglycemia, with long-term current use of insulin (CMS/HCC) 1 each Daily 1 each 10/24/2023 Active Continuous Glucose Sensor (FreeStyle Silvino 3 Sensor) misc (5 sources) Start: 01-09-2024 Continuous Glucose Sensor (FreeStyle Silvino 3 Sensor) misc Indications: Type 2 diabetes mellitus with hyperglycemia, with long-term current use of insulin (CMS/HCC) 1 each every 14 (fourteen) days 2 each 01/09/2024 Active furosemide 40 mg oral tablet (5 sources) Loop Diuretic furosemide (LASI X) 40 mg tablet Take 40 mg by mouth as needed. 0 Active Comment on above: Take 40 mg by mouth once daily. gabapentin 300 mg oral capsule (20 sources) Anti-epileptic Agent Start: 07-22-2023 End: 05-12-2024 take 1 capsule by mouth three times daily gabapentin (NEURONTIN) 300 mg capsule Take 1 capsule (300 mg total) by mouth 3 (three) times a day. 07/22/2023 Active Start: 06-09-2023 End: 08-27-2023 take [...] Active insulin glargine 100 unt/ml injectable solution (16 sources) Insulin Analog Start: 02-26-2024 inject 52 [IU] by subcutaneous injection in the morning insulin glargine (Lantus) 100 UNIT/ML injection Indications: Type 2 diabetes mellitus with hyperglycemia, with long-term current use of insulin ([facility]) Inject 52 Units under the skin in the morning. 50 mL 3 02/26/2024 Active Start: 01-02-2021 End: 03-18-2024 inject 54 [IU] by subcutaneous injection once daily Insulin Glargine (Lantus U-100 Insulin) 100 unit/mL Solution Active 54 UNIT SUBCUT Daily January 02, 2021 12:00am Comment on above: Inject subcutaneousl y as directed. insulin glargine,hum.rec.an log (INSULIN GLARGINE SUBQ) (19 sources) inject 54 [IU] by subcutaneous injection once daily insulin glargine,hum.rec.a nlog (INSULIN GLARGINE SUBQ) Inject 54 Units under the skin daily. Lantus Active inject 54 [IU] by piper bcutaneous injection once daily insulin glargine,hum.rec.anlog (INSULIN GLARGINE SUBQ) Inject 54 Units under the skin daily. Lantus Suspended inject 54 [IU] by piper bcutaneous injection once daily insulin glargine,hum.rec.anlog (INSULIN GLARGINE SUBQ) Inject 54 Units under the skin daily. Lantus 0 Active losartan potassium 50 mg oral tablet (6 sources) Angiotensin 2 Receptor Veronica Start: 04-30-2024 take 1 tablet by mouth in the morning losartan (COZAAR) 50 mg tablet Take 1 tablet (50 mg total) by mouth in the morning. 30 tablet 04/30/2024 Active magnesium oxide 400 mg oral tablet (14 sources) End: 08-27-2023 magnesium oxide (MAG-OX) 400 mg (241.3 mg magnesium) tablet Take 400 mg by mouth. 0 Active 24 hr metFORMIN hydrochloride 500 mg extended release oral tablet (20 sources) Biguanide Start: 01-02-2021 take 500 mg by mouth once daily Metformin Active 500 MG PO Daily January 02, 2021 12:00am Start: 08-04-2018 take 1 tablet by sierra th every twenty-four hours at mealtime metFORMIN XR (Glucophage-XR) 500 MG 24 hr tablet Indications: Type 2 diabetes mellitus with hyperglycemia, with long-term current use of insulin (CMS/[facility]) Take 1 tablet (500 mg) by mouth in the evening. Take with meals 90 tablet 3 02/26/2024 Active Comment on above: Take 500 mg by mouth daily with breakfast. aujjtlut-egdz-NB-calcium &mins (THERAGRAN-M) 9 mg iron-400 mcg tablet (7 sources) jylratbr-gutw-[place] -calcium &mins (THERAGRAN-M) 9 mg iron-400 mcg tablet Take 1 tablet by mouth in the morning. Active ttukgfvv-mklb-UA -calcium &mins (THERAGRAN-M) 9 mg iron-400 mcg tablet Take 1 tablet by mouth in the morning. Suspended nzbmeicc-zpyv-CB -calcium &mins (THERAGRAN-M) 9 mg iron-400 mcg tablet Take 1 tablet by mouth in the morning. 0 Active ikyvsiiveyte-vlpq-tncuahbx-f olic acid (Theragran-M) tablet (5 sources) take 1 tablet by mouth once daily fzviptpzfcnp-auac-hqokumut-folic acid (Theragran-M) tablet Take 1 tablet by mouth Daily Active Potassium gluconate (12 sources) take 1 tablet by mouth in the morning potassium gluconate 595 mg (99 mg) tablet extended release Take 1 tablet (595 mg total) by mouth in the morning. Active take 1 capsule by mouth once jaimie ly Potassium Gluconate 595 MG capsule Take 595 mg by mouth Daily Active primidone 50 mg oral tablet (3 sources) Anti-epileptic Agent Start: 05-12-2024 take 1 tablet by mouth at bedtime primidone (Mysoline) 50 MG tablet Indications: Benign essential tremor Take 1 tablet (50 mg) by mouth at bedtime 30 tablet 5 05/12/2024 Active Start: 05-12-2024 take 1 tablet by sierra th at bedtime primidone (Mysoline) 50 MG tablet Indications: Benign essential tremor Take 1 tablet (50 mg) by mouth at bedtime 30 tablet 5 05/12/2024 Active rosuvastatin calcium 20 mg oral tablet (20 sources) HMG-CoA Reductase Inhibitor Start: 04-29-2024 take 1 tablet by mouth once daily rosuvastatin (CRESTOR) 20 mg tablet Take 1 tablet (20 mg total) by mouth nightly. 30 tablet 04/29/2024 Active Start: 09-30-2024 take 1 tablet by sierra th once daily rosuvastatin (Crestor) 40 MG tablet Indications: Mixed hyperlipidemia (CMS/HCC) Take 1 tablet (40 mg) by mouth Daily 30 tablet 5 04/19/2024 Active Start: 04-08-2023 End: 04-02-2024 Rosuvastatin Active 20 MG PO March 18, 2024 12:00am take 2 tablets by mo uth in the morning rosuvastatin (CRESTOR) 20 mg tablet Take 2 tablets (40 mg total) by mouth in the morning. Suspended ticagrelor 90 mg oral tablet (20 sources) Start: 07-05-2023 End: 05-12-2024 Ticagrelor (Brilinta) 90 mg tablet Active 90 MG PO March 18, 2024 12:00am Start: 04-08-2023 End: 04-02-2024 take 1 tablet [...] mg total) by mouth in the morning. Active coenzyme Q10 (CO ENZYME Q-10) 100 mg cap capsule Take 100 mg by mouth once daily. 0 Active Comment on above: Take 100 mg by mouth once daily. ubidecarenone 100 mg / vitamin e 5 unt oral capsule (5 sources) take 1 capsule by mouth in the morning coenzyme Q-10 100 MG capsule Take 100 mg by mouth in the morning. Active Completed/Discontinued Medications Medication Drug Class(es) Dates Sig (Normalized) Sig (Original) carvedilol 6.25 mg oral tablet (12 sources) alpha-Adrenergic Veronica, beta-Adrenergic Veronica Start: 01-02-2021 End: 03-18-2024 take 6.25 mg by mouth twice daily Carvedilol Discontinued 6.25 MG PO Twice daily January 02, 2021 12:00am March 18, 2024 9:41am End: 05-12-2024 carvedilol (Coreg) 6.25 MG t ablet every 12 (twelve) hours 05/12/2024 Discontinued Comment on above: Take 6.25 mg by mout h twice daily with meals. glipiZIDE 10 mg oral tablet (8 sources) Sulfonylurea Start: End: 4 take 10 mg by mouth twice daily Glipizide Discontinued 10 MG PO Twice daily January 02, 2021 12:00am March 18, 2024 9:42am Comment on above: Take 10 mg by mouth twice daily before meals. lisinopril 20 mg oral tablet (20 sources) Angiotensin Converting Enzyme Inhibitor Start: 3 take 1.5 tablets by mouth in the [...] 40 mg by mouth once daily. pravastatin sodium 10 mg oral tablet (11 sources) HMG-CoA Reductase Inhibitor Start: 01-02-2021 End: [...] [Acute kidney failure, unspecified] Onset: 03-05-2024 Episodic Cardiac dysrhythmias (5 sources) Atrial fibrillation; Translations: [Unspecified atrial fibrillation] Onset: 04-26-2024 04-27-2024 Chronic Chronic kidney disease (14 sources) Chronic kidney disease stage 3; Translations: [Stage 3 chronic kidney disease, unspecified whether stage 3a or 3b CKD (HCC)] Onset: 01-04-2023 Chronic Chronic kidney disease (1 source) Chronic kidney disease; Translations: [Chronic kidney disease, stage 3b] Onset: 04-28-2024 Conduction disorders (6 sources) Sinus node dysfunction; Translations: [Other specified heart block] Onset: 08-27-2023 08-27-2023 Chronic Congestive heart failure; nonhypertensive (11 sources) Heart failure, unspecified; Translations: [Acute on chronic heart failure co-occurrent with normal ejection fraction] Onset: 04-26-2024 04-27-2024 Chronic Coronary atherosclerosis and other heart disease (20 sources) Coronary arteriosclerosis; Translations: [Atherosclerotic heart disease of [place] coronary artery without angina pectoris] Onset: 11-12-2022 [...] Onset: 06-06-2022 Chronic Disorders of lipid metabolism (20 sources) Hyperlipidemia, unspecified; Translations: [Mixed hyperlipidemia] Onset: 10-20-2020 11-12-2022 Chronic Essential hypertension (20 sources) Essential (primary) hypertension; Translations: [Hypertensive disorder] Onset: 06-08-2022 Resolved: 10-24-2023 11-12-2022 Chronic Fluid and electrolyte disorders (1 source) Dehydration; Translations: [Dehydration] Onset: 03-05-2024 Episodic Hypertension with complications and secondary hypertension (3 sources) Hypertensive emergency; Translations: [Hypertensive heart disease without heart failure] Onset: 04-26-2024 Chronic Leukemias (16 sources) Chronic lymphoid leukemia, disease; 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] Onset: 06-27-2022 Chronic Nutritional deficiencies (6 sources) Vitamin D deficiency, unspecified; Translations: [Vitamin D deficiency] Onset: 06-08-2022 10-24-2023 Chronic Occlusion or stenosis of precerebral arteries (20 sources) Bilateral stenosis of carotid arteries; Translations: [Occlusion and stenosis of bilateral carotid arteries] Onset: 10-21-2019 11-12-2022 Chronic Other aftercare (1 source) driver manager (current) use of insulin; Translations: [ENGINE REPAIR SUPERVISOR CURRENT USE OF INSULIN] Onset: 06-08-2022 Episodic Other aftercare (1 source) Other consumer banker (current) drug therapy; Translations: [OTH ENGINE REPAIR SUPERVISOR CURRENT DRUG THERAPY] Onset: 06-08-2022 Episodic Other circulatory disease (19 sources) History of angioplasty; Translations: [Peripheral vascular [...] Translations: [Pain in limb] 04-14-2024 Episodic Other hereditary and degenerative nervous system conditions (12 sources) Essential tremor; Translations: [Essential tremor] Onset: 07-22-2023 Resolved: 10-24-2023 10-24-2023 Chronic Other lower respiratory disease (1 source) Acute pulmonary edema; Translations: [Acute pulmonary edema] Onset: 04-26-2024 Episodic Other lower respiratory disease (1 source) Shortness of breath; Translations: [Shortness of breath] Onset: 04-26-2024 Episodic Other lower respiratory disease (1 source) Shortness of breath Onset: 04-26-2024 Episodic Other nervous system disorders (5 sources) Normal pressure hydrocephalus; 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] Onset: 07-01-2023 07-01-2023 Chronic Other nutritional; endocrine; and metabolic disorders (1 source) H/O: raised blood lipids; Translations: [Personal history of other endocrine, nutritional and metabolic disease] 08-26-2023 Episodic Peripheral and visceral atherosclerosis (20 sources) Peripheral vascular disease, unspecified; Translations: [Peripheral vascular disease, unspecified] Onset: 10-21-2019 11-12-2022 Chronic Pulmonary heart disease (2 sources) Pulmonary hypertension; Translations: [Pulmonary hypertension, unspecified] Onset: 08-27-2023 08-26-2023 Chronic Residual codes; unclassified (5 sources) Obstructive sleep apnea syndrome; Translations: [Obstructive sleep apnea (adult) (pediatric)] Onset: 07-01-2023 07-01-2023 Chronic Respiratory failure; insufficiency; arrest (adult) (7 sources) Acute respiratory failure with hypoxia; Translations: [Acute respiratory failure with hypercapnia] Onset: 04-26-2024 04-26-2024 Episodic Screening and history of mental health and substance abuse codes (2 sources) Ex-smoker; Translations: [Personal history of nicotine dependence] 04-14-2024 Episodic Spondylosis; intervertebral disc disorders; other back problems (7 sources) Lumbar spondylosis; Translations: [Spondylosis without myelopathy or radiculopathy, lumbar region] Onset: 02-26-2024 04-13-2024 Chronic Syncope (1 source) Syncope and collapse; Translations: [Syncope and collapse] Onset: 03-05-2024 Episodic Unclassified (1 source) Weakness - Generalized Onset: 03-05-2024 Unclassified (1 source) EMS Onset: 03-05-2024 Unclassified (1 source) New Patient Onset: 09-03-2023 Past or Other Problems Problem Classification Problem Date Documented Date Episodic/Chronic Acute myocardial infarction (20 sources) Myocardial infarction; Translations: [Non-ST elevation (NSTEMI) myocardial infarction] Onset: 04-05-2023 Resolved: 07-22-2023 04-05-2023 Chronic Cardiac dysrhythmias (20 sources) Bradycardia, unspecified; Translations: [Other specified cardiac dysrhythmias] Onset: 11-12-2022 11-12-2022 Episodic Coronary atherosclerosis and other heart disease (1 source) Presence of coronary angioplasty implant and graft; Translations: [Presence of coronary angioplasty implant and graft] Onset: 07-17-2023 Episodic Mood disorders (19 sources) Mood disorders Onset: 04-05-2023 Resolved: 04-27-2024 04-05-2023 Other aftercare (5 sources) Long-term current use of drug therapy; Translations: [Other shelter (current) drug therapy] Onset: 10-24-2023 10-24-2023 Episodic Other connective tissue disease (5 sources) Other symptoms and signs involving the musculoskeletal system; Translations: [Other musculoskeletal symptoms referable to limbs] Onset: 12-18-2023 12-18-2023 Episodic Other nutritional; endocrine; and metabolic disorders (1 source) Personal history of other endocrine, nutritional and metabolic disease; Translations: [Personal history of other endocrine, nutritional and metabolic disease] Onset: 08-27-2023 Episodic Other nutritional; endocrine; and metabolic disorders (5 sources) Body mass index 25-29 - overweight; Translations: [Overweight] Onset: 07-01-2023 07-01-2023 Episodic Other screening for suspected conditions (not mental disorders or infectious disease) (20 sources) Encounter for screening for malignant neoplasm of prostate; Translations: [Abnormal results of cardiovascular function studies] Onset: 06-08-2022 Resolved: 07-22-2023 08-05-2018 Episodic Other upper respiratory disease (5 sources) Change in voice; Translations: [Unspecified voice and resonance disorder] Onset: 02-26-2024 02-26-2024 Episodic Other upper respiratory disease (5 sources) Hoarse; Translations: [Dysphonia] Onset: 02-26-2024 Resolved: 05-12-2024 02-26-2024 Episodic Other upper respiratory infections (5 sources) Acute upper respiratory infection; Translations: [Acute upper respiratory infection, unspecified] Onset: 07-01-2023 Resolved: 10-24-2023 10-24-2023 Episodic Pneumonia (except that caused by tuberculosis or sexually transmitted disease) (5 sources) Pneumonia; Translations: [Pneumonia, unspecified organism] Onset: 01-09-2024 Resolved: 02-26-2024 02-26-2024 Episodic Residual codes; unclassified (5 sources) Bilateral lower limb edema; Translations: [Localized edema] Onset: 07-22-2023 Resolved: 05-12-2024 07-22-2023 Episodic Spondylosis; intervertebral disc disorders; other back problems (5 sources) Lumbar radiculopathy; Translations: [Radiculopathy, lumbar region] Onset: 02-26-2024 02-26-2024 Episodic Results Test Name Value Interpretation Reference Range Facility ALL BASIC METABOLIC PANELon 06-08-2024 Anion gap [Moles/Vol] 15.8 mmol/L [facility] Calcium [Mass/Vol] 9.2 mg/dL 8.5 - 10. 1 mg/dL [facility] Chloride [Moles/Vol] 105 mmol/L 98 - 10 7 mmol/L [facility] CO2 [Moles/Vol] 23.4 mmol/L 21.0 - 32.0 mmol/L [facility] Creatinine [Mass/Vol] 1.96 mg/dL High 0.70 - 1.30 mg/dL [facility] GFR/1.73 sq M.predicted CKD-EPI (S/P/Bld) [Vol rate/Area] 41 Low >=60 mL/min/1.73m 2 [facility] Glucose [Mass/Vol] 154 mg/dL High 74 - 106 mg/dL [facility] Interpretation and review of laboratory results Abnormal [facility] Potassium [Moles/Vol] 5.2 mmol/L High 3.5 - 5.1 mmol/L [facility] Sodium [Moles/Vol] 139 mmol/L 136 - 145 mmol/L [facility] TBH EGFR-NON AF [place] 33 Low >=60 mL/min/1.73m 2 [facility] Urea nitrogen [Mass/Vol] 38 mg/dL High 7.0 - 18.0 mg/dL [facility] Urea nitrogen/Creatinine [Mass ratio] 19.4 mg/mg [facility] Follow-up visit [id number] Ila Morejon Julianna 1945 M Date Provider Department Center 05/11/2024 [id number] BARRIOS CARD [facility] No family history on file Level of Service:97178 [place] OFFICE/OUTPATIENT NEW MODERATE MDM 45 MINUTES Normal [facility] ALL LIPID PROFILE (FASTING)o n 05-05-2024 CHOL HDL RATIO 1.4 [facility] Comment on above: 3.3 - 4.4 LOW RISK 4.4 - 7.1 AVERAGE RISK 7.1 - 11.0 MODERATE RISK >11.0 HIGH RISK Cholesterol [Mass/Vol] 86 mg/dL NINF - 200 mg/dL [facility] Cholesterol in HDL [Mass/Vol] 63 mg/dL High 40 - 60 mg/dL [facility] Comment on above: > or =60 mg/dl - LOW CARDIOVASCULAR RISK <40 mg/dl - HIGH CARDIOVASCULAR RISK Interpretation and review of laboratory results Abnormal [facility] Magnesium [Mass/Vol] 15 mg/dL [facility] Comment on above: <100 mg/dl OPTIMAL 100-129 mg/dl NEAR OR ABOVE OPTIMAL 130-159 mg/dl BORDERLINE HIGH 160-189 mg/dl HIGH >190 mg/dl VERY HIGH Magnesium [Mass/Vol] 8.2 mg/dL [facility] Triglyceride [Mass/Vol] 41 mg/dL NINF - 150 mg/dL [facility] CBC AND AUTO DIFFon 04-29-20 24 ABSOLUTE BASOPHIL 0.1 X10E9/L Normal 0.0-0.2 [facility] Comment on above: Performed By: #### 2 157-6, C34, 49242-9, SPE, 59007-0, 5130-0, 35640-9, 6969-0, 6968-2 #### [facility] ([id number]) [address], [address] [place] [address] ABSOLUTE NEUTROPHIL 7.4 X10E9/L High 1.5-6.6 [facility] Comment on above: Performed By: #### 2 157-6, C34, 71648-0, SPE, 98428-5, 5130-0, 92566-5, 6969-0, 6968-2 #### [facility] ([id number]) [address], [address] [place] [address] Basophils/100 WBC (Bld) 0.6 % Normal [facility] Comment on above: Performed By: #### 2 157-6, C34, 76547-5, SPE, 52240-4, 5130-0, 56173-3, 6969-0, 6968-2 #### [facility] ([id number]) [address], [address] [place] [address] Eosinophils (Bld) [#/Vol] 0.4 10*3/uL Normal 0.0-0.4 [facility] Comment on above: Performed By: #### 2 157-6, C34, 40799-5, SPE, 62557-9, 5130-0, 20147-3, 6969-0, 6968-2 #### [facility] ([id number]) [address], [address] [place] [address] Eosinophils/100 WBC (Bld) 2.2 % Normal [facility] Comment on above: Performed By: #### 2 157-6, C34, 23554-4, SPE, 72576-5, 5130-0, 00837-6, 6969-0, 6968-2 #### [facility] ([id number]) [address], [address] [place] [address] Erythrocyte distribution width (RBC) [Ratio] 13.5 % Normal 11.5-15.0 [facility] Comment on above: Performed By: #### 2 157-6, C34, 03244-9, SPE, 27658-7, 5130-0, 20278-8, 6969-0, 6968-2 #### [facility] ([id number]) [address], [address] [place] [address] Hematocrit (Bld) [Volume fraction] 35.8 % Low 39-49 [facility] Comment on above: Performed By: #### 2 157-6, C34, 64038-0, SPE, 40976-5, 5130-0, 93221-8, 6969-0, 6968-2 #### [facility] ([id number]) [address], [address] [place] [address] Hemoglobin (Bld) [Mass/Vol] 12.5 g/dL Low 13.0-17.0 [facility] Comment on above: Performed By: #### 2 157-6, C34, 08466-9, SPE, 54015-2, 5130-0, 21228-7, 6969-0, 6968-2 #### [facility] ([id number]) [address], [address] [place] [address] Lymphocytes (Bld) [#/Vol] 9.7 10*3/uL High 1.0-3.5 [facility] Comment on above: Performed By: #### 2 157-6, C34, 86797-9, SPE, 04834-9, 5130-0, 87190-6, 6969-0, 6968-2 #### [facility] ([id number]) [address], [address] [place] [address] Lymphocytes/100 WBC (Bld) 53.3 % Normal [facility] Comment on above: Performed By: #### 2 157-6, C34, 72735-3, SPE, 29301-8, 5130-0, 52136-2, 6969-0, 6968-2 #### [facility] ([id number]) [address], [address] [place] [address] MCH (RBC) [Entitic mass] 31.1 pg Normal 27-34 [facility] Comment on above: Performed By: #### 2 157-6, C34, 29536-0, SPE, 96911-4, 5130-0, 83003-3, 6969-0, 6968-2 #### [facility] ([id number]) [address], [address] [place] [address] MCHC (RBC) [Mass/Vol] 34.8 g/dL Normal 32-36 [facility] Comment on above: Performed By: #### 2 157-6, C34, 89531-0, SPE, 48338-8, 5130-0, 99928-8, 6969-0, 6968-2 #### [facility] ([id number]) [address], [address] [place] [address] MCV (RBC) [Entitic vol] 89 fL Normal 80-100 [facility] Comment on above: Performed By: #### 2 157-6, C34, 47196-3, SPE, 79426-7, 5130-0, 26163-1, 6969-0, 6968-2 #### [facility] ([id number]) [address], [address] [place] [address] Monocytes (Bld) [#/Vol] 0.6 10*3/uL Normal 0-0.9 [facility] Comment on above: Performed By: #### 2 157-6, C34, 87547-6, SPE, 99080-7, 5130-0, 37916-1, 6969-0, 6968-2 #### [facility] ([id number]) [address], [address] [place] [address] Monocytes/100 WBC (Bld) 3.4 % Normal [facility] Comment on above: Performed By: #### 2 157-6, C34, 78970-3, SPE, 25397-0, 5130-0, 66074-6, 6969-0, 6968-2 #### [facility] ([id number]) [address], [address] [place] [address] Neutrophils/100 WBC (Bld) 40.5 % Normal [facility] Comment on above: Performed By: #### 2 157-6, C34, 98418-3, SPE, 15155-4, 5130-0, 61345-9, 6969-0, 6968-2 #### [facility] ([id number]) [address], [address] [place] [address] OVALOCYTE 1+ Abnormal NONE [facility] Comment on above: Performed By: #### 2 157-6, C34, 51493-0, SPE, 63089-2, 5130-0, 87931-9, 6969-0, 6968-2 #### [facility] ([id number]) [address], [address] [place] [address] Platelet mean volume (Bld) [Entitic vol] 8.8 fL Normal 7-12 [facility] Comment on above: Performed By: #### 2 157-6, C34, 45780-4, SPE, 04125-5, 5130-0, 74581-3, 6969-0, 6968-2 #### [facility] ([id number]) [address], [address] [place] [address] Platelets (Bld) [#/Vol] 199 10*3/uL Normal 150-450 [facility] Comment on above: Performed By: #### 2 157-6, C34, 18735-6, SPE, 04175-7, 5130-0, 45324-6, 6969-0, 6968-2 #### [facility] ([id number]) [address], [address] [place] [address] RBC COUNT 4.02 X10E12/L Low 4.10-5.70 [facility] Comment on above: Performed By: #### 2 157-6, C34, 37982-6, SPE, 62000-4, 5130-0, 45528-1, 6969-0, 6968-2 #### [facility] ([id number]) [address], [address] [place] [address] SMUDGE CELLS 1+ Abnormal NONE [facility] Comment on above: Performed By: #### 2 157-6, C34, 15890-3, SPE, 36598-6, 5130-0, 55691-4, 6969-0, 6968-2 #### [facility] ([id number]) [address], [address] [place] [address] WBC (Bld) [#/Vol] 18.2 10*3/uL High 4.0-11.0 [facility] Comment on above: Performed By: #### 2 157-6, C34, 95693-2, SPE, 05246-0, 5130-0, 35313-5, 6969-0, 6968-2 #### [facility] ([id number]) [address], [address] [place] [address] COMPREHENSIVE METABOLIC PANE Woody 04-29-2024 Albumin [Mass/Vol] 3.1 g/dL Low 3.2-5.3 [facility] Comment on above: Performed By: #### 2 157-6, C34, 60064-2, SPE, 03339-0, 5130-0, 35670-9, 6969-0, 6968-2 #### [facility] ([id number]) [address], [address] [place] [address] ALP [Catalytic activity/Vol] 89 U/L Normal 39-130 [facility] Comment on above: Performed By: #### 2 157-6, C34, 23299-7, SPE, 15323-8, 5130-0, 41030-2, 6969-0, 6968-2 #### [facility] ([id number]) [address], [address] [place] [address] ALT [Catalytic activity/Vol] 25 U/L Normal 0-40 [facility] Comment on above: Performed By: #### 2 157-6, C34, 01608-7, SPE, 53688-4, 5130-0, 99952-1, 6969-0, 6968-2 #### [facility] ([id number]) [address], [address] [place] [address] Anion gap [Moles/Vol] 7 mmol/L Normal 5-15 [facility] Comment on above: Performed By: #### 2 157-6, C34, 80757-5, SPE, 01455-0, 5130-0, 61846-1, 6969-0, 6968-2 #### [facility] ([id number]) [address], [address] [place] [address] AST [Catalytic activity/Vol] 15 U/L Normal 0-41 [facility] Comment on above: Performed By: #### 2 157-6, C34, 34686-3, SPE, 46734-8, 5130-0, 99509-5, 6969-0, 6968-2 #### [facility] ([id number]) [address], [address] [place] [address] Bilirubin [Mass/Vol] 0.6 mg/dL Normal 0.3-1.2 [facility] Comment on above: Performed By: #### 2 157-6, C34, 66181-9, SPE, 70580-3, 5130-0, 53174-9, 6969-0, 6968-2 #### [facility] ([id number]) [address], [address] [place] [address] Calcium [Mass/Vol] 8.7 mg/dL Normal 8.5-10.5 [facility] Comment on above: Performed By: #### 2 157-6, C34, 07809-1, SPE, 21343-0, 5130-0, 49433-1, 6969-0, 6968-2 #### [facility] ([id number]) [address], [address] [place] [address] Chloride [Moles/Vol] 107 mmol/L Normal 98-109 [facility] Comment on above: Performed By: #### 2 157-6, C34, 07144-9, SPE, 80944-4, 5130-0, 89962-4, 6969-0, 6968-2 #### [facility] ([id number]) [address], [address] [place] [address] CO2 [Moles/Vol] 27 mmol/L Normal 22-32 [facility] Comment on above: Performed By: #### 2 157-6, C34, 97822-8, SPE, 49729-3, 5130-0, 24447-9, 6969-0, 6968-2 #### [facility] ([id number]) [address], [address] [place] [address] Creatinine [Mass/Vol] 1.15 mg/dL Normal 0.60-1.30 [facility] Comment on above: Result Comment: METH OD TRACEABLE TO IDMS STANDARD Performed By: #### 2 157-6, C34, 51799-4, SPE, 12711-4, 5130-0, 30805-3, 6969-0, 6968-2 #### [facility] ([id number]) [address], [facility] [address] [place] [address] GFR/1.73 sq M.predicted among non-blacks MDRD (S/P/Bld) [Vol rate/Area] 66 mL/min/{1.73_m2} Normal >59 [facility] Comment on above: Result Comment: Reported eGFR is based on the CKD-EPI 2020 equation that does not use a race coefficient. Performed By: #### 2 157-6, C34, 75917-0, SPE, 73877-9, 5130-0, 20739-7, 6969-0, 6968-2 #### [facility] ([id number]) [address], [address] [place] [address] Glucose [Mass/Vol] 102 mg/dL High 65-99 [facility] Comment on above: Performed By: #### 2 157-6, C34, 81611-8, SPE, 49146-8, 5130-0, 88472-5, 6969-0, 6968-2 #### [facility] ([id number]) [address], [address] [place] [address] Potassium [Moles/Vol] 4.4 mmol/L Normal 3.5-5.0 [facility] Comment on above: Performed By: #### 2 157-6, C34, 12236-0, SPE, 55091-0, 5130-0, 15615-4, 6969-0, 6968-2 #### [facility] ([id number]) [address], [address] [place] [address] Protein [Mass/Vol] 5.6 g/dL Low 6.0-8.0 [facility] Comment on above: Performed By: #### 2 157-6, C34, 94750-1, SPE, 80420-7, 5130-0, 89337-8, 6969-0, 6968-2 #### [facility] ([id number]) [address], [address] [place] [address] Sodium [Moles/Vol] 141 mmol/L Normal 134-146 [facility] Comment on above: Performed By: #### 2 157-6, C34, 08185-8, SPE, 05245-1, 5130-0, 45896-0, 6969-0, 6968-2 #### [facility] ([id number]) [address], [address] [place] [address] Urea nitrogen [Mass/Vol] 22 mg/dL Normal 5-27 [facility] Comment on above: Performed By: #### 2 157-6, C34, 20055-7, SPE, 99451-8, 5130-0, 53573-3, 6969-0, 6968-2 #### [facility] ([id number]) [address], [address] [place] [address] Glucose Glucometer (BldC) [M ass/Vol]on 04-29-2024 Glucose [Mass/Vol] 240 mg/dL High 65-99 [facility] Glucose [Mass/Vol] 233 mg/dL High 65-99 [facility] Glucose [Mass/Vol] 107 mg/dL High 65-99 [facility] Heparin unfractionated Chrom ogenic method Qn (PPP)on 04-29-2024 ANTI XA UFH 0.30 IU/mL Normal 0.30-0.70 [facility] Comment on above: Result Comment: Opti mal time for testing is 6 hrs post dosage This test is specific for monitoring patients on UFH, and is not recommended for use with other Anti-Xa medications. Performed By: #### 2 157-6, C34, 69881-0, SPE, 05748-5, 5130-0, 85749-2, 6969-0, 6968-2 #### [facility] ([id number]) [address], [address] [place] [address] MAGNESIUMon 04-29-2024 Magnesium [Mass/Vol] 1.7 mg/dL Low 1.8-2.6 [facility] Comment on above: Performed By: #### 2 157-6, C34, 14698-4, SPE, 28267-7, 5130-0, 21081-9, 6969-0, 6968-2 #### [facility] ([id number]) [address], [address] [place] [address] ACT Diatomaceous earth induc ed (Bld)on 04-28-2024 HMCHRN CLOT TIME LR 290 sec High 89-169 [facility] Comment on above: Performed By: #### 2 157-6, C34, 05685-1, SPE, 60853-6, 5130-0, 05713-6, 6969-0, 6968-2 #### [facility] ([id number]) [address], [address] [place] [address] HMCHRN CLOT TIME LR >400 High 89-169 [facility] Comment on above: Performed By: #### 2 157-6, C34, 91235-3, SPE, 49235-6, 5130-0, 80850-6, 6969-0, 6968-2 #### [facility] ([id number]) [address], [address] [place] [address] CBC AND AUTO DIFFon 04-28-20 Erythrocyte distribution width (RBC) [Ratio] 13.7 % Normal 11.5-15.0 [facility] Comment on above: Performed By: #### 2 157-6, C34, 65064-3, SPE, 36040-7, 5130-0, 24235-6, 6969-0, 6968-2 #### [facility] ([id number]) [address], [address] [place] [address] Hematocrit (Bld) [Volume fraction] 35.5 % Low 39-49 [facility] Comment on above: Performed By: #### 2 157-6, C34, 37975-7, SPE, 68603-6, 5130-0, 27228-6, 6969-0, 6968-2 #### [facility] ([id number]) [address] [address] [place] [address] Hemoglobin (Bld) [Mass/Vol] 12.1 g/dL Low 13.0-17.0 [facility] Comment on above: Performed By: #### 2 157-6, C34, 80816-1, SPE, 44598-1, 5130-0, 12857-6, 6969-0, 6968-2 #### [facility] ([id number]) [address] [address] [place] [address] Lymphocytes (Bld) [#/Vol] 14.4 10*3/uL High 1.0-3.5 [facility] Comment on above: Performed By: #### 2 157-6, C34, 51749-8, SPE, 20183-1, 5130-0, 43087-6, 6969-0, 6968-2 #### [facility] ([id number]) [address], [address] [place] [address] Lymphocytes/100 WBC (Bld) 69.0 % Normal [facility] Comment on above: Performed By: #### 2 157-6, C34, 18482-0, SPE, 86078-7, 5130-0, 27297-5, 6969-0, 6968-2 #### [facility] ([id number]) [address], [address] [place] [address] MCH (RBC) [Entitic mass] 31.1 pg Normal 27-34 [facility] Comment on above: Performed By: #### 2 157-6, C34, 94053-2, SPE, 22422-3, 5130-0, 72812-5, 6969-0, 6968-2 #### [facility] ([id number]) [address], [address] [place] [address] MCHC (RBC) [Mass/Vol] 34.2 g/dL Normal 32-36 [facility] Comment on above: Performed By: #### 2 157-6, C34, 90887-3, SPE, 01026-5, 5130-0, 88529-1, 6969-0, 6968-2 #### [facility] ([id number]) [address], [address] [place] [address] MCV (RBC) [Entitic vol] 91 fL Normal 80-100 [facility] Comment on above: Performed By: #### 2 157-6, C34, 74731-6, SPE, 23414-1, 5130-0, 51844-1, 6969-0, 6968-2 #### [facility] ([id number]) [address], [address] [place] [address] Monocytes (Bld) [#/Vol] 0.4 10*3/uL Normal 0-0.9 [facility] Comment on above: Performed By: #### 2 157-6, C34, 02661-8, SPE, 73066-6, 5130-0, 99661-0, 6969-0, 6968-2 #### [facility] ([id number]) [address], [address] [place] [address] Monocytes/100 WBC (Bld) 2.0 % Normal [facility] Comment on above: Performed By: #### 2 157-6, C34, 25964-2, SPE, 82099-1, 5130-0, 08111-5, 6969-0, 6968-2 #### [facility] ([id number]) [address], [address] [place] [address] MYELOCYTE 1.0 % Normal [facility] Comment on above: Performed By: #### 2 157-6, C34, 88369-4, SPE, 03422-2, 5130-0, 44536-3, 6969-0, 6968-2 #### [facility] ([id number]) [address], [address] [place] [address] Neutrophils (Bld) [#/Vol] 5.9 10*3/uL Normal 1.5-6.6 [facility] Comment on above: Performed By: #### 2 157-6, C34, 61062-3, SPE, 54909-7, 5130-0, 04701-4, 6969-0, 6968-2 #### [facility] ([id number]) [address], [address] [place] [address] OVALOCYTE 1+ Abnormal NONE [facility] Comment on above: Performed By: #### 2 157-6, C34, 83476-2, SPE, 99306-1, 5130-0, 57029-9, 6969-0, 6968-2 #### [facility] ([id number]) [address], [address] [place] [address] Platelet mean volume (Bld) [Entitic vol] 9.1 fL Normal 7-12 [facility] Comment on above: Performed By: #### 2 157-6, C34, 82951-4, SPE, 06882-6, 5130-0, 43492-5, 6969-0, 6968-2 #### [facility] ([id number]) [address], [address] [place] [address] Platelets (Bld) [#/Vol] 188 10*3/uL Normal 150-450 [facility] Comment on above: Performed By: #### 2 157-6, C34, 55654-3, SPE, 95685-3, 5130-0, 87315-3, 6969-0, 6968-2 #### [facility] ([id number]) [address], [address] [place] [address] RBC COUNT 3.90 X10E12/L Low 4.10-5.70 [facility] Comment on above: Performed By: #### 2 157-6, C34, 68189-4, SPE, 43928-0, 5130-0, 77664-3, 6969-0, 6968-2 #### [facility] ([id number]) [address], [address] [place] [address] SEG NEUTROPHIL 28.0 % Normal [facility] Comment on above: Performed By: #### 2 157-6, C34, 78822-8, SPE, 85788-8, 5130-0, 02068-4, 6969-0, 6968-2 #### [facility] ([id number]) [address] [place] [address] WBC (Bld) [#/Vol] 20.9 10*3/uL High 4.0-11.0 [facility] Comment on above: Performed By: #### 2 157-6, C34, 08650-4, SPE, 40729-7, 5130-0, 69940-5, 6969-0, 6968-2 #### [facility] ([id number]) [address] [place] [address] COMPREHENSIVE METABOLIC PANE Woody 04-28-2024 Albumin [Mass/Vol] 3.3 g/dL Normal 3.2-5.3 [facility] Comment on above: Performed By: #### 2 157-6, C34, 48167-3, SPE, 80148-9, 5130-0, 31404-3, 6969-0, 6968-2 #### [facility] ([id number]) [address], [address] [place] [address] ALP [Catalytic activity/Vol] 82 U/L Normal 39-130 [facility] Comment on above: Performed By: #### 2 157-6, C34, 83130-5, SPE, 94866-7, 5130-0, 82906-2, 6969-0, 6968-2 #### [facility] ([id number]) [address] [place] [address] ALT [Catalytic activity/Vol] 36 U/L Normal 0-40 [facility] Comment on above: Performed By: #### 2 157-6, C34, 37656-9, SPE, 54888-1, 5130-0, 75514-9, 6969-0, 6968-2 #### [facility] ([id number]) [address], [address] [place] [address] Anion gap [Moles/Vol] 5 mmol/L Normal 5-15 [facility] Comment on above: Performed By: #### 2 157-6, C34, 29564-5, SPE, 48680-5, 5130-0, 34020-2, 6969-0, 6968-2 #### [facility] ([id number]) [address], [address] [place] [address] AST [Catalytic activity/Vol] 20 U/L Normal 0-41 [facility] Comment on above: Performed By: #### 2 157-6, C34, 83767-6, SPE, 10742-0, 5130-0, 56762-2, 6969-0, 6968-2 #### [facility] ([id number]) [address] [place] [address] Bilirubin [Mass/Vol] 0.5 mg/dL Normal 0.3-1.2 [facility] Comment on above: Performed By: #### 2 157-6, C34, 29343-4, SPE, 89525-7, 5130-0, 85810-7, 6969-0, 6968-2 #### [facility] ([id number]) [address] [place] [address] Calcium [Mass/Vol] 8.8 mg/dL Normal 8.5-10.5 [facility] Comment on above: Performed By: #### 2 157-6, C34, 19987-4, SPE, 74448-3, 5130-0, 82362-4, 6969-0, 6968-2 #### [facility] ([id number]) [address] [place] [address] Chloride [Moles/Vol] 107 mmol/L Normal 98-109 [facility] Comment on above: Performed By: #### 2 157-6, C34, 53935-0, SPE, 23932-5, 5130-0, 43007-7, 6969-0, 6968-2 #### [facility] ([id number]) [address] [place] [address] CO2 [Moles/Vol] 30 mmol/L Normal 22-32 [facility] Comment on above: Performed By: #### 2 157-6, C34, 91748-1, SPE, 89715-5, 5130-0, 56455-2, 6969-0, 6968-2 #### [facility] ([id number]) [address] [place] [address] Creatinine [Mass/Vol] 1.40 mg/dL High 0.60-1.30 [facility] Comment on above: Result Comment: METH OD TRACEABLE TO IDMS STANDARD Performed By: #### 2 157-6, C34, 82799-0, SPE, 08701-8, 5130-0, 33109-7, 6969-0, 6968-2 #### [facility] ([id number]) [address], [address] [place] [address] GFR/1.73 sq M.predicted among non-blacks MDRD (S/P/Bld) [Vol rate/Area] 52 mL/min/{1.73_m2} Low >59 [facility] Comment on above: Result Comment: Reported eGFR is based on the CKD-EPI 2020 equation that does not use a race coefficient. Performed By: #### 2 157-6, C34, 79752-0, SPE, 16110-8, 5130-0, 15485-1, 6969-0, 6968-2 #### [facility] ([id number]) [address], [address] [place] [address] Glucose [Mass/Vol] 57 mg/dL Low 65-99 [facility] Comment on above: Performed By: #### 2 157-6, C34, 38897-4, SPE, 96770-5, 5130-0, 62016-0, 6969-0, 6968-2 #### [facility] ([id number]) [address], [address] [place] [address] Potassium [Moles/Vol] 4.4 mmol/L Normal 3.5-5.0 [facility] Comment on above: Performed By: #### 2 157-6, C34, 36973-4, SPE, 96291-4, 5130-0, 24986-9, 6969-0, 6968-2 #### [facility] ([id number]) [address], [address] [place] [address] Protein [Mass/Vol] 5.7 g/dL Low 6.0-8.0 [facility] Comment on above: Performed By: #### 2 157-6, C34, 70074-7, SPE, 92891-3, 5130-0, 92188-3, 6969-0, 6968-2 #### [facility] ([id number]) [address], [address] [place] [address] Sodium [Moles/Vol] 142 mmol/L Normal 134-146 [facility] Comment on above: Performed By: #### 2 157-6, C34, 96185-9, SPE, 99788-7, 5130-0, 26297-9, 6969-0, 6968-2 #### [facility] ([id number]) [address], [address] [place] [address] Urea nitrogen [Mass/Vol] 35 mg/dL High 5-27 [facility] Comment on above: Performed By: #### 2 157-6, C34, 82280-1, SPE, 14649-9, 5130-0, 38008-6, 6969-0, 6968-2 #### [facility] ([id number]) [address], [address] [place] [address] Glucose Glucometer (dC) [M ass/Vol]on 04-28-2024 Glucose [Mass/Vol] 208 mg/dL High 65-99 [facility] Glucose [Mass/Vol] 132 mg/dL High 65-99 [facility] Glucose [Mass/Vol] 63 mg/dL Low 65-99 [facility] Glucose [Mass/Vol] 118 mg/dL High 65-99 [facility] Glucose [Mass/Vol] 62 mg/dL Low 65-99 [facility] Heparin unfractionated Chrom ogenic method Qn (PPP)on 04-28-2024 ANTI XA UFH 0.38 IU/mL Normal 0.30-0.70 [facility] Comment on above: Result Comment: Opti mal time for testing is 6 hrs post dosage This test is specific for monitoring patients on UFH, and is not recommended for use with other Anti-Xa medications. Performed By: #### 2 157-6, C34, 12370-2, SPE, 92721-9, 5130-0, 32469-0, 6969-0, 6968-2 #### [facility] ([id number]) [address], [address] [place] [address] MAGNESIUMon 04-28-2024 Magnesium [Mass/Vol] 1.8 mg/dL Normal 1.8-2.6 [facility] Comment on above: Performed By: #### 2 157-6, C34, 57273-0, SPE, 35367-5, 5130-0, 19945-8, 6969-0, 6968-2 #### [facility] ([id number]) [address], [address] [place] [address] US RETROPERITONEAL COMPLETEo n 04-28-2024 US RETROPERITONEAL [...] Cintron MD on 04/28/2024 2:26 AM Normal [facility] CBC AND AUTO DIFFon 04-27-20 Eosinophils (Bld) [#/Vol] 0.2 10*3/uL Normal 0.0-0.4 [facility] Comment on above: Performed By: #### C BCA, CMP, 74818-4, 65706-6, 34017-9 #### [facility] ([id number]) [address] [place] [address] 9[address]88 Eosinophils/100 WBC (Bld) 1.0 % Normal [facility] Comment on above: Performed By: #### C BCA, CMP, 90139-6, 15618-2, 64704-4 #### [facility] ([id number]) [address] [place] [address] 50292 Erythrocyte distribution width (RBC) [Ratio] 13.8 % Normal 11.5-15.0 [facility] Comment on above: Performed By: #### C BCA, CMP, 41315-4, 87580-5, 40330-5 #### [facility] ([id number]) [address] [place] [address] 69918 Hematocrit (Bld) [Volume fraction] 30.1 % Low 39-49 [facility] Comment on above: Performed By: #### C BCA, CMP, 72148-4, 89757-0, 17465-7 #### [facility] ([id number]) [address] [place] [address] 85765 Hemoglobin (Bld) [Mass/Vol] 10.2 g/dL Low 13.0-17.0 [facility] Comment on above: Performed By: #### C ABIGAIL, CMP, 06165-6, 78597-4, 68654-8 #### [facility] ([id number]) [address] [place] [address] 23687 LYMPHOCYTE, ATYPICAL 4.0 % Normal [facility] Comment on above: Performed By: #### C BCA, CMP, 39237-9, 30224-5, 53331-4 #### [facility] ([id number]) [address] [place] [address] 08385 Lymphocytes (Bld) [#/Vol] 8.6 10*3/uL High 1.0-3.5 [facility] Comment on above: Performed By: #### C BCA, CMP, 21631-5, 55570-7, 48437-0 #### [facility] ([id number]) [address] [place] [address] 67740 Lymphocytes/100 WBC (Bld) 35.0 % Normal [facility] Comment on above: Performed By: #### C ABIGAIL, CMP, 63231-1, 85856-4, 61833-5 #### [facility] ([id number]) [address] [place] [address] 39902 MCH (RBC) [Entitic mass] 30.9 pg Normal 27-34 [facility] Comment on above: Performed By: #### Rose Marie BCA, CMP, 96825-6, 34265-0, 69323-7 #### [facility] ([id number]) [address] [place] [address] 63008 MCHC (RBC) [Mass/Vol] 34.0 g/dL Normal 32-36 [facility] Comment on above: Performed By: #### C BCA, CMP, 21230-2, 01234-8, 13106-8 #### [facility] ([id number]) [address] [place] [address] 51721 MCV (RBC) [Entitic vol] 91 fL Normal 80-100 [facility] Comment on above: Performed By: #### C BCA, CMP, 99959-5, 97718-9, 07552-8 #### [facility] ([id number]) [address] [place] [address] 22108 Monocytes (Bld) [#/Vol] 0.2 10*3/uL Normal 0-0.9 [facility] Comment on above: Performed By: #### C BCA, CMP, 48867-1, 10857-2, 57880-3 #### [facility] ([id number]) [address] [place] [address] 48465 Monocytes/100 WBC (Bld) 1.0 % Normal [facility] Comment on above: Performed By: #### Rose Marie BCA, CMP, 94612-2, 12137-1, 19130-0 #### [facility] ([id number]) [address] [place] [address] 55511 Neutrophils (Bld) [#/Vol] 13.0 10*3/uL High 1.5-6.6 [facility] Comment on above: Performed By: #### Rose Marie BCA, CMP, 77258-5, 89348-5, 56994-0 #### [facility] ([id number]) [address] [place] [address] 91452 OVALOCYTE 1+ Abnormal NONE [facility] Comment on above: Performed By: #### Rose Marie BCA, CMP, 32764-4, 32939-2, 72158-5 #### [facility] ([id number]) [address] [place] [address] 38338 Platelet mean volume (Bld) [Entitic vol] 8.6 fL Normal 7-12 [facility] Comment on above: Performed By: #### Rose Marie BCA, CMP, 03521-2, 81523-4, 86624-4 #### [facility] ([id number]) [address] [place] [address] 42259 Platelets (Bld) [#/Vol] 172 10*3/uL Normal 150-450 [facility] Comment on above: Performed By: #### C BCA, CMP, 58946-9, 37519-1, 95547-5 #### [facility] ([id number]) [address] [place] [address] 30760 RBC COUNT 3.30 X10E12/L Low 4.10-5.70 [facility] Comment on above: Performed By: #### C BCA, CMP, 09892-4, 73524-4, 57637-9 #### [facility] ([id number]) [address] [place] [address] 99036 SEG NEUTROPHIL 59.0 % Normal [facility] Comment on above: Performed By: #### C BCA, CMP, 37841-6, 50374-8, 02944-7 #### [facility] ([id number]) [address] [place] [address] 92452 WBC (Bld) [#/Vol] 22.0 10*3/uL High 4.0-11.0 [facility] Comment on above: Performed By: #### C BCA, CMP, 99759-6, 71247-5, 31101-7 #### [facility] ([id number]) [address] [place] [address] 80345 CK [Catalytic activity/Vol]o n 04-27-2024 CPK 99 U/L Normal 24-195 [facility] Comment on above: Performed By: #### 2 157-6, C34, 97807-0, SPE, 14784-2, 5130-0, 98220-6, 6969-0, 6968-2 #### [facility] ([id number]) [address] [place] [address], [address] [place] [address] COMPLEMENT PROFILEon 024 COMPLEMENT C3 141 mg/dL Normal 86-184 [facility] Comment on above: Performed By: #### 2 157-6, C34, 44468-5, SPE, 51435-0, 5130-0, 88990-0, 6969-0, 6968-2 #### [facility] ([id number]) [address], [address] [place] [address] COMPLEMENT C4 25 mg/dL Normal 16-47 [facility] Comment on above: Performed By: #### 2 157-6, C34, 99377-4, SPE, 81004-7, 5130-0, 02370-9, 6969-0, 6968-2 #### [facility] ([id number]) [address], [address] [place] [address] COMPREHENSIVE METABOLIC PANE Woody 04-27-2024 Albumin [Mass/Vol] 3.0 g/dL Low 3.2-5.3 [facility] Comment on above: Performed By: #### C BCA, CMP, 60553-8, 03979-7, 21035-8 #### [facility] ([id number]) [address] [place] [address] 40706 ALP [Catalytic activity/Vol] 79 U/L Normal 39-130 [facility] Comment on above: Performed By: #### C BCA, CMP, 76563-2, 81264-4, 41574-1 #### [facility] ([id number]) [address] [place] [address] 32814 ALT [Catalytic activity/Vol] 51 U/L High 0-40 [facility] Comment on above: Performed By: #### C BCA, CMP, 37257-9, 17636-9, 50459-3 #### [facility] ([id number]) [address] [place] [address] 59442 Anion gap [Moles/Vol] 8 mmol/L Normal 5-15 [facility] Comment on above: Performed By: #### C BCA, CMP, 49317-4, 67019-1, 29294-3 #### [facility] ([id number]) [address] [place] [address] 05486 AST [Catalytic activity/Vol] 35 U/L Normal 0-41 [facility] Comment on above: Performed By: #### C BCA, CMP, 04710-1, 64494-0, 98486-7 #### [facility] ([id number]) [address] [place] [address] 42201 Bilirubin [Mass/Vol] 0.5 mg/dL Normal 0.3-1.2 [facility] Comment on above: Performed By: #### C BCA, CMP, 12383-5, 62863-2, 06778-7 #### [facility] ([id number]) [address] [place] [address] 51187 Calcium [Mass/Vol] 8.7 mg/dL Normal 8.5-10.5 [facility] Comment on above: Performed By: #### C BCA, CMP, 30827-9, 27191-6, 16749-7 #### [facility] ([id number]) [address] [place] [address] 69472 Chloride [Moles/Vol] 107 mmol/L Normal 98-109 [facility] Comment on above: Performed By: #### C BCA, CMP, 02404-9, 78039-3, 89794-9 #### [facility] ([id number]) [address] [place] [address] 60447 CO2 [Moles/Vol] 22 mmol/L Normal 22-32 [facility] Comment on above: Performed By: #### C BCA, CMP, 26519-2, 48588-3, 29922-2 #### [facility] ([id number]) [address] [place] [address], [place] [address] Creatinine [Mass/Vol] 1.74 mg/dL High 0.70-1.20 [facility] Comment on above: Result Comment: METH OD TRACEABLE TO IDMS STANDARD Performed By: #### C LEÓN HAYES, 23183-8, 62546-1, 27243-7 #### [facility] ([id number]) [address] [place] [address] 18077 GFR/1.73 sq M.predicted among non-blacks MDRD (S/P/Bld) [Vol rate/Area] 40 mL/min/{1.73_m2} Low >59 [facility] Comment on above: Result Comment: Reported eGFR is based on the CKD-EPI 2020 equation that does not use a race coefficient. Performed By: #### C ABIGAIL CMP, 50645-4, 54231-1, 72044-8 #### [facility] ([id number]) [address] [place] [address] 77990 Glucose [Mass/Vol] 146 mg/dL High 65-99 [facility] Comment on above: Performed By: #### C ABIGAIL, CMP, 42053-1, 21041-0, 41721-0 #### [facility] ([id number]) [address] [place] [address] 88826 Potassium [Moles/Vol] 4.8 mmol/L Normal 3.5-5.0 [facility] Comment on above: Performed By: #### C BCA, CMP, 92534-5, 58720-8, 42063-2 #### [facility] ([id number]) [address] [place] [address] 06876 Protein [Mass/Vol] 5.4 g/dL Low 6.0-8.0 [facility] Comment on above: Performed By: #### C BCA, CMP, 69555-2, 70159-2, 56380-2 #### [facility] ([id number]) [address] [place] [address] Sodium [Moles/Vol] 137 mmol/L Normal 134-146 [facility] Comment on above: Performed By: #### C BCA, CMP, 61301-2, 60434-5, 05264-0 #### [facility] ([id number]) [address] [place] [address] 98640 Urea nitrogen [Mass/Vol] 44 mg/dL High 5-27 [facility] Comment on above: Performed By: #### C BCA, CMP, 24146-6, 19343-5, 04106-0 #### [facility] ([id number]) [address] [place] [address] 82908 Chloride (U) [Moles/Vol]on 1 URINE CHLORIDE,RANDOM 117 mmol/L Normal [facility] Comment on above: Performed By: #### 2 157-6, C34, 80081-5, SPE, 49002-6, 5130-0, 18147-8, 6969-0, 6968-2 #### [facility] ([id number]) [address] [place] [address] [address] [place] [address] Clinical Pathologyon 024 Clinical Pathology Normal [facility] Comment on above: Result Comment: [facility] [address] [place] [address] Clinical Pathology Report Patient Name:ILA MOREJON:1945 (Age: 78)Gender:MTaken:04/27/2024eported:04/28/2024hysician(s):Za Bryan DO ([phone])Copy To: Rec. #:[id number]: #[id number] Final Pathologic Diagnosis Faint albumin band. No monoclonal protein identified. Report Electronically Signed Out df/04/28/2024álvaro Sauceda MD Interpretation performed at [facility], [address] [place] [address], License number: [id number]. Clinical History I21.4 URINE PROTEIN ELECTROPHORESIS SAMPLE NUMBER: [id number] RELATIVE ELECTROPHORETIC CONCENTRATIONS (%) ? 100.0 Urine Protein 860 mg/L (Electrophoretic gels and densitometric tracings on file in lab.) Specimen(s) Received Urine Protein Electrophoresis Fee Codes(s): 1; 35715-48 DNA double strand Ab Qn (S)o n 04-27-2024 DOUBLE STRANDED DNA <1 Normal <5 [facility] Comment on above: Result Comment: Interpretation-------- <5 Negative 5-9 Indeterminate >9 Positive Performed By: #### 2 157-6, C34, 20349-9, SPE, 99876-6, 5130-0, 69699-6, 6969-0, 6968-2 #### [facility] ([id number]) [address], [address] [place] [address] FREE LIGHT CHAINSon 04-27-20 24 FREE HAM/LAMBD RATIO 2.30 High 0.26-1.65 [facility] Comment on above: Performed By: #### 2 157-6, C34, 14249-4, SPE, 29174-7, 5130-0, 49430-6, 6969-0, 6968-2 #### [facility] ([id number]) [address], [address] [place] [address] FREE KAPPA LT CHAINS 4.35 mg/dL High 0.33-1.94 [facility] Comment on above: Performed By: #### 2 157-6, C34, 58451-9, SPE, 68195-9, 5130-0, 78495-1, 6969-0, 6968-2 #### [facility] ([id number]) [address], [address] [place] [address] FREE LAMBDA LT CHAINS 1.89 mg/dL Normal 0.57-2.63 [facility] Comment on above: Performed By: #### 2 157-6, C34, 56091-8, SPE, 00465-1, 5130-0, 55922-6, 6969-0, 6968-2 #### [facility] ([id number]) [address], [address] [place] [address] Glomerular basement membrane IgG Qn (S)on 04-27-2024 GBM IgG Ab <0.2 Normal <1.0 [facility] Comment on above: Performed By: #### 2 157-6, C34, 25819-9, SPE, 49664-0, 5130-0, 24280-8, 6969-0, 6968-2 #### [facility] ([id number]) [address], [address] [place] [address] Glucose Glucometer (BldC) [M ass/Vol]on 04-27-2024 Glucose [Mass/Vol] 245 mg/dL High 65-99 [facility] Glucose [Mass/Vol] 248 mg/dL High 65-99 [facility] Glucose [Mass/Vol] 249 mg/dL High 65-99 [facility] Heparin unfractionated Chrom ogenic method Qn (PPP)on 04-27-2024 ANTI XA UFH 0.31 IU/mL Normal 0.30-0.70 [facility] Comment on above: Result Comment: Opti mal time for testing is 6 hrs post dosage This test is specific for monitoring patients on UFH, and is not recommended for use with other Anti-Xa medications. Performed By: #### 2 157-6, C34, 57426-9, SPE, 33517-8, 5130-0, 62643-8, 6969-0, 6968-2 #### [facility] ([id number]) [address], [address] [place] [address] ANTI XA UFH 0.31 IU/mL Normal 0.30-0.70 [facility] Comment on above: Result Comment: Opti mal time for testing is 6 hrs post dosage This test is specific for monitoring patients on UFH, and is not recommended for use with other Anti-Xa medications. Performed By: #### 3 274-8 #### [facility] ([id number]) [address], [address] [place] [address] ANTI XA UFH 0.45 IU/mL Normal 0.30-0.70 [facility] Comment on above: Result Comment: Opti mal time for testing is 6 hrs post dosage This test is specific for monitoring patients on UFH, and is not recommended for use with other Anti-Xa medications. Performed By: #### C ABIGAIL, CMP, 30861-7, 37835-1, 31044-6 #### [facility] ([id number]) [address] [place] [address] 40370 MAGNESIUMon 04-27-2024 Magnesium [Mass/Vol] 2.0 mg/dL Normal 1.8-2.6 [facility] Comment on above: Performed By: #### C BCA, [facility], 06264-7, 15980-5, 15868-9 #### [facility] ([id number]) [address] [place] [address] 11877 Myeloperoxidase Ab Qn (S)on 04-27-2024 Myeloperoxidase Ab <0.2 Normal <1.0 [facility] Comment on above: Performed By: #### 2 157-6, C34, 71969-7, SPE, 85762-2, 5130-0, 13413-0, 6969-0, 6968-2 #### [facility] ([id number]) [address], [address] [place] [address] Natriuretic peptide B [Mass/ Vol]on 04-27-2024 Natriuretic peptide B (Bld) [Mass/Vol] 1576 pg/mL High <100.0 [facility] Comment on above: Performed By: #### 2 157-6, C34, 05055-2, SPE, 76319-0, 5130-0, 31794-6, 6969-0, 6968-2 #### [facility] ([id number]) [address], [address] [place] [address]28 Nuclear Ab IA Ql (S)on 04-27 RAMÓN Screen w/reflex Negative Normal NEG [facility] Comment on above: Result Comment: Testing performed using multiplex flow immunoassay. Eleven different antigens associated with systemic autoimmune diseases (dsDNA,Sm,Sm/TICK ERADICATOR,TICK ERADICATOR,Chromatin, SSA,SSB,Kiara-1,Scl70,Ribo P,Centromere B) are included in this screening test. Performed By: #### 2 157-6, C34, 15398-3, SPE, 89409-3, 5130-0, 67830-4, 6969-0, 6968-2 #### [facility] ([id number]) [address], [address] [place] [address] 31123 PROTEIN CREAT RATIOon 2023 RANDOM URINE PROTEIN 860 mg/L High <120 [facility] Comment on above: Performed By: #### 2 157-6, C34, 99904-9, SPE, 71154-7, 5130-0, 90628-6, 6969-0, 6968-2 #### [facility] ([id number]) [address], [address] [place] [address] U/PRO/BACTERIOLOGY TECHNICIAN RATIO CALC 2.56 High <0.2 [facility] Comment on above: Result Comment: Neph rotic Syndrome is associated with ratios >3.5 Performed By: #### 2 157-6, C34, 90892-2, SPE, 47885-7, 5130-0, 75424-4, 6969-0, 6968-2 #### [facility] ([id number]) [address], [address] [place] [address] URINE CREATININE,RDM 33.58 mg/dL Normal [facility] Comment on above: Performed By: #### 2 157-6, C34, 78041-0, SPE, 76492-0, 5130-0, 24301-8, 6969-0, 6968-2 #### [facility] ([id number]) [address], [address] [place] [address] Proteinase 3 Ab Qn (S)on Proteinase 3 IgG Ab <0.2 Normal <1.0 [facility] Comment on above: Performed By: #### 2 157-6, C34, 47828-0, SPE, 95936-1, 5130-0, 65358-9, 6969-0, 6968-2 #### [facility] ([id number]) [address], [address] [place] [address] Rheumatoid factor Nephelomet ry Qn (S)on 04-27-2024 RHEUMATOID FACTOR <10 Normal <20 [facility] Comment on above: Performed By: #### 2 157-6, C34, 73424-9, SPE, 36548-2, 5130-0, 11247-6, 6969-0, 6968-2 #### [facility] ([id number]) [address], [address] [place] [address] SERUM PROTEIN ELECTROPHORESI Son 04-27-2024 Albumin [Mass/Vol] 3.3 g/dL Low 3.4-5.3 [facility] Comment on above: Performed By: #### 2 157-6, C34, 15103-7, SPE, 57491-7, 5130-0, 19140-0, 6969-0, 6968-2 #### [facility] ([id number]) [address], [address] [place] [address] ALPHA 1 GLOBULIN 0.4 g/dL Normal 0.1-0.4 [facility] Comment on above: Performed By: #### 2 157-6, C34, 58082-7, SPE, 41370-9, 5130-0, 53392-0, 6969-0, 6968-2 #### [facility] ([id number]) [address], [address] [place] [address] ALPHA 2 GLOBULIN 0.9 g/dL Normal 0.4-1.1 [facility] Comment on above: Performed By: #### 2 157-6, C34, 31040-0, SPE, 69423-7, 5130-0, 31158-5, 6969-0, 6968-2 #### [facility] ([id number]) [address], [address] [place] [address] BETA GLOBULIN 0.7 g/dL Normal 0.5-1.2 [facility] Comment on above: Performed By: #### 2 157-6, C34, 31197-8, SPE, 28870-0, 5130-0, 67638-9, 6969-0, 6968-2 #### [facility] ([id number]) [address], [address] [place] [address] GAMMA GLOBULIN 0.6 g/dL Normal 0.5-1.6 [facility] Comment on above: Performed By: #### 2 157-6, C34, 27901-3, SPE, 46539-8, 5130-0, 30091-5, 6969-0, 6968-2 #### [facility] ([id number]) [address], [address] [place] [address] PROT. ELECTROPHORESIS INTERP Unremarkable protein distribution, no monoclonal bands. Normal [facility] Comment on above: Performed By: #### 2 157-6, C34, 60311-4, SPE, 97346-5, 5130-0, 43729-9, 6969-0, 6968-2 #### [facility] ([id number]) [address], [address] [place] [address] Protein [Mass/Vol] 5.9 g/dL Low 6.0-8.0 [facility] Comment on above: Performed By: #### 2 157-6, C34, 45289-9, SPE, 82331-7, 5130-0, 81237-4, 6969-0, 6968-2 #### [facility] ([id number]) [address], [address] [place] [address] Troponin I.cardiac High sens itivity method [Mass/Vol]on 04-27-2024 3 HOUR TROP I, HIGH SENSITIVITY 6066 ng/L Critically high <21 [facility] Comment on above: Result Comment: Elevations of hs-Troponin may be due to causes other than myocardial ischemia. Recommend serial hs-Troponin testing be performed. For the initial evaluation and management of chest pain patients, refer to the algorithms linked below. Emergency Patient: [email or web address] [email or web address]: [email or web address] Performed By: #### C BCA, CMP, 72017-8, 13197-6, 99884-9 #### [facility] ([id number]) [address] [place] [address], [place] [address] URINALYSISon 04-27-2024 Bilirubin Ql (U) Negative Normal NEG [facility] Comment on above: Performed By: #### 2 157-6, C34, 27763-5, SPE, 74734-6, 5130-0, 61257-9, 6969-0, 6968-2 #### [facility] ([id number]) [address], [address] [place] [address] BLOOD/HGB Negative Normal NEG [facility] Comment on above: Performed By: #### 2 157-6, C34, 28648-4, SPE, 96444-4, 5130-0, 58255-8, 6969-0, 6968-2 #### [facility] ([id number]) [address], [address] [place] [address] Color (U) YELLOW Normal YELLOW [facility] Comment on above: Performed By: #### 2 157-6, C34, 46518-6, SPE, 32007-8, 5130-0, 71548-2, 6969-0, 6968-2 #### [facility] ([id number]) [address], [address] [place] [address] Glucose Ql (U) Negative Normal NEG [facility] Comment on above: Performed By: #### 2 157-6, C34, 57570-1, SPE, 44982-0, 5130-0, 86266-4, 6969-0, 6968-2 #### [facility] ([id number]) [address], [address] [place] [address] Hyaline casts LM Ql (Urine sed) 1 /lpf Normal 0-2 [facility] Comment on above: Performed By: #### 2 157-6, C34, 16916-9, SPE, 27941-0, 5130-0, 69834-1, 6969-0, 6968-2 #### [facility] ([id number]) [address], [address] [place] [address] Ketones Ql (U) Negative Normal NEG [facility] Comment on above: Performed By: #### 2 157-6, C34, 40313-3, SPE, 70025-8, 5130-0, 99174-3, 6969-0, 6968-2 #### [facility] ([id number]) [address], [address] [place] [address] Leukocyte esterase Test strip Ql (U) Negative Normal NEG [facility] Comment on above: Performed By: #### 2 157-6, C34, 84236-4, SPE, 96426-3, 5130-0, 86164-1, 6969-0, 6968-2 #### [facility] ([id number]) [address], [address] [place] [address] MUCOUS PRESENT Abnormal NONE [facility] Comment on above: Performed By: #### 2 157-6, C34, 44589-6, SPE, 75143-4, 5130-0, 52170-6, 6969-0, 6968-2 #### [facility] ([id number]) [address], [address] [place] [address] Nitrite Ql (U) Negative Normal NEG [facility] Comment on above: Performed By: #### 2 157-6, C34, 27213-8, SPE, 82564-2, 5130-0, 78147-8, 6969-0, 6968-2 #### [facility] ([id number]) [address], [address] [place] [address] pH (U) 6.0 [pH] Normal 5.0-8.5 [facility] Comment on above: Performed By: #### 2 157-6, C34, 33221-3, SPE, 07763-5, 5130-0, 07673-4, 6969-0, 6968-2 #### [facility] ([id number]) [address], [address] [place] [address] Protein Ql (U) 100 mg/dL Abnormal NEG [facility] Comment on above: Performed By: #### 2 157-6, C34, 11683-0, SPE, 70166-9, 5130-0, 52787-5, 6969-0, 6968-2 #### [facility] ([id number]) [address], [address] [place] [address] R.B.CELLS <1 Normal 0-5 [facility] Comment on above: Performed By: #### 2 157-6, C34, 48058-9, SPE, 98415-0, 5130-0, 10807-5, 6969-0, 6968-2 #### [facility] ([id number]) [address] [address] [place] [address] Specific gravity (U) [Rel density] 1.011 Normal 1.003-1.035 [facility] Comment on above: Performed By: #### 2 157-6, C34, 83251-9, SPE, 23687-7, 5130-0, 36233-5, 6969-0, 6968-2 #### [facility] ([id number]) [address], [address] [place] [address] SQUAMOUS EPITHELIUM <1 Normal 0-5 [facility] Comment on above: Performed By: #### 2 157-6, C34, 83996-6, SPE, 02529-8, 5130-0, 93566-4, 6969-0, 6968-2 #### [facility] ([id number]) [address], [address] [place] [address] TURBIDITY CLEAR Normal CLEAR [facility] Comment on above: Performed By: #### 2 157-6, C34, 05793-6, SPE, 27978-8, 5130-0, 02664-1, 6969-0, 6968-2 #### [facility] ([id number]) [address], [address] [place] [address] Urobilinogen (U) [Mass/Vol] mg/dL Normal <1.1 [facility] Comment on above: Performed By: #### 2 157-6, C34, 92450-6, SPE, 62941-2, 5130-0, 02739-5, 6969-0, 6968-2 #### [facility] ([id number]) [address] [place] [address] W.B.CELLS <1 Normal 0-5 [facility] Comment on above: Performed By: #### 2 157-6, C34, 71410-7, SPE, 28276-9, 5130-0, 50078-1, 6969-0, 6968-2 #### [facility] ([id number]) [address] [place] [address] URINE PROTEIN ELECTROPHORESI Son 04-27-2024 UPREL INTERP SEE SEPARATE REPORT Normal [facility] URINE SODIUM,RANDOMon 2023 Sodium (U) [Moles/Vol] 110 mmol/L Normal [facility] Comment on above: Performed By: #### 2 157-6, C34, 21054-5, SPE, 17462-0, 5130-0, 08205-2, 6969-0, 6968-2 #### [facility] ([id number]) [address] [place] [address] CBC AND AUTO DIFFon 04-26-20 24 ABSOLUTE BASOPHIL 0.3 X10E9/L High 0.0-0.2 [facility] Comment on above: Performed By: #### C BCA, CMP, 04783-1, 21738-1, 40038-6 #### [facility] ([id number]) [address] [place] [address] [place] [address] Band form neutrophils/100 WBC (Bld) 1.0 % Normal [facility] Comment on above: Performed By: #### C BCA, CMP, 01444-8, 50222-4, 05348-6 #### [facility] ([id number]) [address] [place] [address] Basophils/100 WBC (Bld) 1.0 % Normal [facility] Comment on above: Performed By: #### C BCA, CMP, 33764-5, 66385-7, 36486-6 #### [facility] ([id number]) [address] [place] [address] YOSI 1+ Abnormal NONE [facility] Comment on above: Performed By: #### C BCA, CMP, 89084-3, 90695-0, 91514-6 #### [facility] ([id number]) [address] [place] [address] Erythrocyte distribution width (RBC) [Ratio] 13.7 % Normal 11.5-15.0 [facility] Comment on above: Performed By: #### C BCA, CMP, 37625-2, 47265-7, 02207-6 #### [facility] ([id number]) [address] [place] [address] Hematocrit (Bld) [Volume fraction] 34.2 % Low 39-49 [facility] Comment on above: Performed By: #### C BCA, CMP, 62863-0, 50834-3, 21265-7 #### [facility] ([id number]) [address] [place] [address] Hemoglobin (Bld) [Mass/Vol] 11.7 g/dL Low 13.0-17.0 [facility] Comment on above: Performed By: #### C BCA, CMP, 76696-1, 05460-2, 97406-7 #### [facility] ([id number]) [address] [place] [address]12 Lymphocytes (Bld) [#/Vol] 10.9 10*3/uL High 1.0-3.5 [facility] Comment on above: Performed By: #### C BCA, CMP, 61242-7, 93617-2, 79039-0 #### [facility] ([id number]) [address] [place] [address] Lymphocytes/100 WBC (Bld) 41.0 % Normal [facility] Comment on above: Performed By: #### C BCA, CMP, 71840-3, 16298-2, 41997-8 #### [facility] ([id number]) [address] [place] [address]28 MCH (RBC) [Entitic mass] 30.9 pg Normal 27-34 [facility] Comment on above: Performed By: #### C BCA, CMP, 45344-9, 58570-7, 37328-8 #### [facility] ([id number]) [address] [place] [address] 24195 MCHC (RBC) [Mass/Vol] 34.1 g/dL Normal 32-36 [facility] Comment on above: Performed By: #### C BCA, CMP, 74309-7, 62487-3, 97611-1 #### [facility] ([id number]) [address] [place] [address] 70248 MCV (RBC) [Entitic vol] 91 fL Normal 80-100 [facility] Comment on above: Performed By: #### Rose Marie BCA, CMP, 50992-0, 77381-9, 43408-4 #### [facility] ([id number]) [address] [place] [address] 98479 Neutrophils (Bld) [#/Vol] 15.5 10*3/uL High 1.5-6.6 [facility] Comment on above: Performed By: #### C BCA, CMP, 33017-0, 79611-0, 94318-5 #### [facility] ([id number]) [address] [place] [address] 13071 OVALOCYTE 1+ Abnormal NONE [facility] Comment on above: Performed By: #### C BCA, CMP, 72144-1, 90447-1, 46554-6 #### [facility] ([id number]) [address] [place] [address] 6[address]37 Platelet mean volume (Bld) [Entitic vol] 9.1 fL Normal 7-12 [facility] Comment on above: Performed By: #### C BCA, CMP, 58769-6, 82273-0, 36238-5 #### [facility] ([id number]) [address] [place] [address] 78453 Platelets (Bld) [#/Vol] 198 10*3/uL Normal 150-450 [facility] Comment on above: Performed By: #### C BCA, CMP, , 65525-5, 39470-0 #### [facility] ([id number]) [address] [place] [address] 65685 RBC COUNT 3.77 X10E12/L Low 4.10-5.70 [facility] Comment on above: Performed By: #### C BCA, CMP, , 76856-8, 28335-9 #### [facility] ([id number]) [address] [place] [address] 71453 SEG NEUTROPHIL 57.0 % Normal [facility] Comment on above: Performed By: #### C BCA, CMP, , 52290-6, 68976-3 #### [facility] ([id number]) [address] [place] [address] 91795 WBC (Bld) [#/Vol] 26.4 10*3/uL High 4.0-11.0 [facility] Comment on above: Performed By: #### C BCA, CMP, , 35006-6, 32317-3 #### [facility] ([id number]) [address] [place] [address] 61150 Eosinophils (Bld) [#/Vol] 0.4 10*3/uL Normal 0.0-0.4 [facility] Comment on above: Performed By: #### C MP, 67496-2, CBCA, 83081-2, 15858-5, PINR, 14333-3 ####[facility] ([id number])[address] [place] [address]3046 Eosinophils/100 WBC (Bld) 1.0 % Normal [facility] Comment on above: Performed By: #### C MP, , CBCA, 53568-1, 67720-1, PINR, 12628-5 ####[facility] ([id number])[address] [place] [address] 16108 Erythrocyte distribution width (RBC) [Ratio] 14.0 % Normal 11.5-15.0 [facility] Comment on above: Performed By: #### C KARISHMA, , CBCA, 33690-6, 72747-7, PINR, 48332-6 ####[facility] ([id number])[address] [place] [address]18 Hematocrit (Bld) [Volume fraction] 38.0 % Low 39-49 [facility] Comment on above: Performed By: #### C KARISHMA, , CBCA, 88660-7, 41135-6, PINR, 36595-1 ####[facility] ([id number])[address] [place] [address] 56570 Hemoglobin (Bld) [Mass/Vol] 12.5 g/dL Low 13.0-17.0 [facility] Comment on above: Performed By: #### C KARISHMA, , CBCA, 91287-5, 97963-6, PINR, 64530-7 ####[facility] ([id number])[address] [place] [address] 10769 Lymphocytes (Bld) [#/Vol] 30.6 10*3/uL High 1.0-3.5 [facility] Comment on above: Performed By: #### C KARISHMA, 04790-6, CBCA, 76199-7, 71674-2, PINR, 81778-9 ####[facility] ([id number])[address] [place] [address] 86259 Lymphocytes/100 WBC (Bld) 68.0 % Normal [facility] Comment on above: Performed By: #### C MP, , CBCA, 93784-4, 55602-1, PINR, 99609-9 ####[facility] ([id number])[address] [place] [address] 52765 MCH (RBC) [Entitic mass] 30.4 pg Normal 27-34 [facility] Comment on above: Performed By: #### C KARISHMA, , CBCA, 92723-8, 69730-0, PINR, 11544-7 ####[facility] ([id number])[address] [place] [address] 65978 MCHC (RBC) [Mass/Vol] 32.9 g/dL Normal 32-36 [facility] Comment on above: Performed By: #### C KARISHMA, , CBCA, 64109-7, 68041-3, PINR, 54494-3 ####[facility] ([id number])[address] [place] [address] 79860 MCV (RBC) [Entitic vol] 93 fL Normal 80-100 [facility] Comment on above: Performed By: #### C KARISHMA, , CBCA, 84585-2, 22198-1, PINR, 66061-5 ####[facility] ([id number])[address] [place] [address] 86011 Monocytes (Bld) [#/Vol] 0.9 10*3/uL Normal 0-0.9 [facility] Comment on above: Performed By: #### C KARISHMA, , CBCA, 29118-5, 43762-3, PINR, 41117-9 ####[facility] ([id number])[address] [place] [address] 05149 Monocytes/100 WBC (Bld) 2.0 % Normal [facility] Comment on above: Performed By: #### C MP, 35160-3, CBCA, 17584-9, 95086-3, PINR, 14741-1 ####[facility] ([id number])[address] [place] [address] 12759 Neutrophils (Bld) [#/Vol] 13.0 10*3/uL High 1.5-6.6 [facility] Comment on above: Performed By: #### C MP, 99125-0, CBCA, 58776-3, 19974-9, PINR, 38786-1 ####[facility] ([id number])[address] [place] [address] 77288 Platelet mean volume (Bld) [Entitic vol] 8.8 fL Normal 7-12 [facility] Comment on above: Performed By: #### C MP, 63064-0, CBCA, 36371-4, 27588-7, PINR, 74572-2 ####[facility] ([id number])[address] [place] [address] 36946 Platelets (Bld) [#/Vol] 302 10*3/uL Normal 150-450 [facility] Comment on above: Performed By: #### C MP, 57974-5, CBCA, 87183-5, 67013-2, PINR, 35446-7 ####[facility] ([id number])[address] [place] [address] 31603 RBC COUNT 4.10 X10E12/L Normal 4.10-5.70 [facility] Comment on above: Performed By: #### C MP, 26660-1, CBCA, 73747-2, 95666-8, PINR, 15689-1 ####[facility] ([id number])[address] [place] [address] 76383 RBC morphology finding Nom (Bld) REVIEWED Normal [facility] Comment on above: Performed By: #### C MP, 77197-7, CBCA, 60436-0, 55616-6, PINR, 54144-2 ####[facility] ([id number])[address] [place] [address] 73882 SEG NEUTROPHIL 29.0 % Normal [facility] Comment on above: Performed By: #### C MP, 42827-0, CBCA, 75404-4, 74699-0, PINR, 19197-4 ####[facility] ([id number])[address] [place] [address] 91895 WBC (Bld) [#/Vol] 44.9 10*3/uL High 4.0-11.0 [facility] Comment on above: Performed By: #### C MP, 89330-0, CBCA, 45112-8, 32600-5, PINR, 69603-1 ####[facility] ([id number])[address] [place] [address] 60822 COMPREHENSIVE METABOLIC PANE Woody 04-26-2024 Albumin [Mass/Vol] 3.7 g/dL Normal 3.2-5.3 [facility] Comment on above: Performed By: #### C MP, 26883-0, CBCA, 16928-0, 73724-1, PINR, 60464-9 ####[facility] ([id number])[address] [place] [address] 00900 ALP [Catalytic activity/Vol] 133 U/L High 39-130 [facility] Comment on above: Performed By: #### C MP, 16993-1, CBCA, 12458-9, 90124-8, PINR, 57597-2 ####[facility] ([id number])[address] [place] [address] 66621 ALT [Catalytic activity/Vol] 87 U/L High 0-40 [facility] Comment on above: Performed By: #### C MP, 42040-0, CBCA, 89837-0, 34887-2, PINR, 29816-0 ####[facility] ([id number])[address] [place] [address] 01015 Anion gap [Moles/Vol] 7 mmol/L Normal 5-15 [facility] Comment on above: Performed By: #### C MP, 53726-8, CBCA, 81438-3, 34284-9, PINR, 44001-2 ####[facility] ([id number])[address] [place] [address] 25628 AST [Catalytic activity/Vol] 62 U/L High 0-41 [facility] Comment on above: Performed By: #### C KARISHMA, 50885-6, CBCA, 51213-7, 64583-9, PINR, 14634-5 ####[facility] ([id number])[address] [place] [address] 99984 Bilirubin [Mass/Vol] 0.5 mg/dL Normal 0.3-1.2 [facility] Comment on above: Performed By: #### C KARISHMA, 43674-4, CBCA, 81368-3, 96897-2, PINR, 37035-6 ####[facility] ([id number])[address] [place] [address] 99005 Calcium [Mass/Vol] 8.8 mg/dL Normal 8.5-10.5 [facility] Comment on above: Performed By: #### C MP, 32248-6, CBCA, 38083-5, 76892-0, PINR, 78608-5 ####[facility] ([id number])[address] [place] [address] 46846 Chloride [Moles/Vol] 107 mmol/L Normal 98-109 [facility] Comment on above: Performed By: #### C MP, 66426-1, CBCA, 73254-3, 32988-8, PINR, 87723-1 ####[facility] ([id number])[address] [place] [address] 00971 CO2 [Moles/Vol] 23 mmol/L Normal 22-32 [facility] Comment on above: Performed By: #### C MP, 40125-0, CBCA, 95048-2, 43235-0, PINR, 97377-5 ####[facility] ([id number])[address] [place] [address] 62222 Creatinine [Mass/Vol] 1.50 mg/dL High 0.70-1.20 [facility] Comment on above: Result Comment: METH OD TRACEABLE TO IDMS STANDARD Performed By: #### C MP, 07970-4, CBCA, 86890-8, 52403-6, PINR, 21040-6 ####[facility] ([id number])[address] [place] [address] 03637 GFR/1.73 sq M.predicted among non-blacks MDRD (S/P/Bld) [Vol rate/Area] 48 mL/min/{1.73_m2} Low >59 [facility] Comment on above: Result Comment: Reported eGFR is based on the CKD-EPI 2020 equation that does not use a race coefficient. Performed By: #### C MP, 82158-5, CBCA, 57603-2, 73414-7, PINR, 45701-5 ####[facility] ([id number])[address] [place] [address] 69663 Glucose [Mass/Vol] 358 mg/dL High 65-99 [facility] Comment on above: Performed By: #### C MP, 80522-7, CBCA, 91401-4, 35827-7, PINR, 55404-3 ####[facility] ([id number])[address] [place] [address] Potassium [Moles/Vol] 4.4 mmol/L Normal 3.5-5.0 [facility] Comment on above: Performed By: #### C MP, 28165-4, CBCA, 51133-1, 96189-5, PINR, 56611-3 ####[facility] ([id number])[address] [place] [address] 43333 Protein [Mass/Vol] 7.0 g/dL Normal 6.0-8.0 [facility] Comment on above: Performed By: #### C MP, 73351-9, CBCA, 05457-1, 90669-1, PINR, 79750-2 ####[facility] ([id number])[address] [place] [address] 62859 Sodium [Moles/Vol] 137 mmol/L Normal 134-146 [facility] Comment on above: Performed By: #### C MP, 24652-9, CBCA, 03847-4, 75171-7, PINR, 99465-7 ####[facility] ([id number])[address] [place] [address] 11184 Urea nitrogen [Mass/Vol] 26 mg/dL Normal 5-27 [facility] Comment on above: Performed By: #### C MP, 10083-7, CBCA, 68263-3, 26351-2, PINR, 81325-7 ####[facility] ([id number])[address] [place] [address] 41037 Clinical Pathology Blood Sme ar Reviewon 04-26-2024 Clinical Pathology Blood Smear Review Normal [facility] Comment on above: Result Comment: [facility] [address] [place] [address] Clinical Pathology Report Patient Name:ILA MOREJON:1945 (Age: 78)Gender:MTaken:04/26/2024eported:04/28/2024hysician(s):Nadiya Mascorro M.D. ([phone])Copy To: Rec. #:[id number]: #[id number] Final Pathologic Diagnosis Peripheral blood smear: Absolute [...] Out nxk/04/28/2024Shawn Hernandez MD Interpretation performed [place] [address], License number: [id number]. Clinical History J96.01, J96.02, J81.0, I16.1, I21.4, [...] Received Blood Smear Review Fee Codes(s): 1; 57272 Glucose Glucometer (BldC) [M ass/Vol]on 04-26-2024 Glucose [Mass/Vol] 211 mg/dL High 65-99 [facility] Glucose [Mass/Vol] 258 mg/dL High 65-99 [facility] Glucose [Mass/Vol] 304 mg/dL High 65-99 [facility] Heparin unfractionated Chrom ogenic method Qn (PPP)on 04-26-2024 ANTI XA UFH <0.04 Low 0.30-0.70 [facility] Comment on above: Result Comment: Opti mal time for testing is 6 hrs post dosage This test is specific for monitoring patients on UFH, and is not recommended for use with other Anti-Xa medications. Performed By: #### C LEÓN HAYES, 36271-0, 38355-8, 96992-5 #### [facility] ([id number]) [address] [place] [address] 51831 ANTI XA UFH 0.28 IU/mL Low 0.30-0.70 [facility] Comment on above: Result Comment: Opti mal time for testing is 6 hrs post dosage This test is specific for monitoring patients on UFH, and is not recommended for use with other Anti-Xa medications. Performed By: #### C LEÓN HAYES, 48800-0, 07939-4, 32584-0 #### [facility] ([id number]) [address] [place] [address] 39374 ANTI XA UFH 0.26 IU/mL Low 0.30-0.70 [facility] Comment on above: Result Comment: Opti mal time for testing is 6 hrs post dosage This test is specific for monitoring patients on UFH, and is not recommended for use with other Anti-Xa medications. Performed By: #### C LEÓN HAYES, 61415-1, 30296-6, 93461-3 #### [facility] ([id number]) [address] [place] [address] 61781 MAGNESIUMon 04-26-2024 Magnesium [Mass/Vol] 2.2 mg/dL Normal 1.8-2.6 [facility] Comment on above: Performed By: #### C KARISHMA, 30591-6, CBCA, 87358-6, 20403-4, PINR, 65261-9 ####[facility] ([id number])[address] [place] [address] 51142 Natriuretic peptide B [Mass/ Vol]on 04-26-2024 Natriuretic peptide B (Bld) [Mass/Vol] 1120 pg/mL High <100.0 [facility] Comment on above: Performed By: #### C MP, 58146-9, CBCA, 05339-9, 72370-1, PINR, 48163-8 ####[facility] ([id number])[address] [place] [address] 90084 PROTIME AND INRon 04-26-2024 INR Coag (PPP) [Relative time] 1.0 {INR} Normal 0.8-1.1 [facility] Comment on above: Performed By: #### C MP, 91602-9, CBCA, 10218-2, 56584-5, PINR, 67987-4 ####[facility] ([id number])[address] [place] [address] 47920 PT Coag (PPP) [Time] 11.9 s Normal 9.8-13.2 [facility] Comment on above: Result Comment: NEW REFERENCE RANGE Performed By: #### C MP, 75491-7, CBCA, 90101-6, 38195-9, PINR, 14483-5 ####[facility] ([id number])[address] [place] [address] comment (Bld) [Interp]on 04-26-2024 STAFF REVIEW NOTE Normal [facility] Comment on above: Result Comment: [facility] [address] [place] [address] 08062 Clinical Pathology Report Patient Name:ILA MOREJON:1945 (Age: 78)Gender:MTaken:04/26/2024eported:04/28/2024hysician(s):Nadiya Mascorro M.D. ([phone])Copy To: Rec. #:[id number]: #[id number] Final Pathologic Diagnosis Peripheral blood smear: Absolute [...] Out nxk/04/28/2024Shawn Hernandez MD Interpretation performed [place] [address], License number: [id number]. Clinical History J96.01, J96.02, J81.0, I16.1, I21.4, [...] Received Blood Smear Review Fee Codes(s): 1; 50317 Performed By: #### C BCA, CMP, 62999-2, 51340-3, 19429-6 #### [facility] ([id number]) [address] [place] [address] Procalcitonin IA [Mass/Vol]o n 04-26-2024 PROCALCITONIN 0.07 ng/mL High <0.05 [facility] Comment on above: Result Comment: NOTE <0.50 ng/mL - Low risk of severe sepsis and/or septic shock. <2.00 ng/mL - Recommend retesting within 6-24 hours. >2.00 ng/mL - High risk of sepsis and/or septic shock. Performed By: #### 7 5241-0, 19242-1 ####[facility] ([id number])[address] [place] [address] 15911 RESP PATHOGENS/PPQH-OnU-0wq 04-26-2024 Respiratory pathogens DNA and RNA panel [...] 2 Not detected (qualifier value) NOTE The [employer] Respiratory Panel 2.1 (RP2.1) is a multiplexed [...] other pathogens. The agent(s) detected by the [employer] RP2.1 may not be the definite cause [...] patient with possible respiratory tract infection. Normal [facility] Comment on above: Performed By: #### C BCA, CMP, 78108-2, 93773-1, 48217-9 #### [facility] ([id number]) [address] [place] [address], [place] [address] Troponin I.cardiac High sens itivity method [Mass/Vol]on 04-26-2024 TROPONIN I, HIGH SENSITIVITY 7140 ng/L Critically high <21 [facility] Comment on above: Result Comment: Elevations of hs-Troponin may be due to causes other than myocardial ischemia. Recommend serial hs-Troponin testing be performed. For the initial evaluation and management of chest pain patients, refer to the algorithms linked below. Emergency Patient: [email or web address]& uh=acaea Inpatient: [email or web address]&[email or web address]& uh=acaea Performed By: #### C BCA, CMP, 71907-6, 23725-1, 23098-6 #### [facility] ([id number]) [address] [place] [address]90 3 HOUR TROP I, HIGH SENSITIVITY 6130 ng/L Critically high <21 [facility] Comment on above: Result Comment: Elevations of hs-Troponin may be due to causes other than myocardial ischemia. Recommend serial hs-Troponin testing be performed. For the initial evaluation and management of chest pain patients, refer to the algorithms linked below. Emergency Patient: [email or web address]& uh=acaea Inpatient: [email or web address]&[email or web address]& uh=acaea Performed By: #### C BCA, CMP, 69862-9, 96692-4, 90686-2 #### [facility] ([id number]) [address] [place] [address] 1 HOUR TROP I, HIGH SENSITIVITY 1586 ng/L Critically high <21 [facility] Comment on above: Result Comment: Elevations of hs-Troponin may be due to causes other than myocardial ischemia. Recommend serial hs-Troponin testing be performed. For the initial evaluation and management of chest pain patients, refer to the algorithms linked below. Emergency Patient: [email or web address]&[email or web address]& uh=acaea Inpatient: [email or web address]&[email or web address]& uh=acaea Performed By: #### C BCA, CMP, 05026-1, 92655-5, 86888-3 #### [facility] ([id number]) [address] [place] [address] TROPONIN I, HIGH SENSITIVITY 1129 ng/L Critically high <21 [facility] Comment on above: Result Comment: Elevations of hs-Troponin may be due to causes other than myocardial ischemia. Recommend serial hs-Troponin testing be performed. For the initial evaluation and management of chest pain patients, refer to the algorithms linked below. Emergency Patient: [email or web address]&[email or web address]& uh=acaea Inpatient: [email or web address]&[email or web address]& uh=acaea Performed By: #### C MP, 80232-4, CBCA, 40880-7, 97311-2, PINR, 42987-6 ####[facility] ([id number])[address] [place] [address] VENOUS BLOOD GASon 4 LATASHA'S TEST Normal [facility] Comment on above: Performed By: #### V BG ####[facility] ([id number])[address] [place] [address] BASE,DEFICIT 5.0 MMOL/L High 0.0-2.0 [facility] Comment on above: Performed By: #### V BG ####[facility] ([id number])[address] [place] [address] 67004 Body temperature 98.6 [degF] Normal 37.0 [facility] Comment on above: Performed By: #### V BG ####[facility] ([id number])[address] [place] [address] 50828 HCO3 (Bld) [Moles/Vol] 24.3 mmol/L High 20.0-24.0 [facility] Comment on above: Performed By: #### V BG ####[facility] ([id number])[address] [place] [address] [place] [address] INSP. O2 CONC. 50 % Normal [facility] Comment on above: Performed By: #### V BG ####[facility] ([id number])[address] [place] [address] 50616 Oxygen saturation in Blood 72.0 % Low >80.0 [facility] Comment on above: Performed By: #### V BG ####[facility] ([id number])[address] [place] [address] 52671 OXYGEN SOURCE NPPV Normal [facility] Comment on above: Performed By: #### V BG ####[facility] ([id number])[address] [place] [address] 94938 PCO2, VENOUS 62.7 MMHG High 35-50 [facility] Comment on above: Performed By: #### V BG ####[facility] ([id number])[address] [place] [address] [place] [address] PH, VENOUS 7.197 Low 7.320-7.420 [facility] Comment on above: Performed By: #### V BG ####[facility] ([id number])[address] [place] [address] [place] [address] PO2, VENOUS 47 MMHG Normal 30-50 [facility] Comment on above: Performed By: #### V BG ####[facility] ([id number])[address] [place] [address] [place] [address] SAMPLE SITE N/A Normal [facility] Comment on above: Performed By: #### V BG ####[facility] ([id number])[address] [place] [address] [place] [address] SAMPLE TYPE VENOUS Normal [facility] Comment on above: Performed By: #### V BG ####[facility] ([id number])[address] [place] [address] 29543 XR CHEST 1 VWon 04-26-2024 XR CHEST [...] Federico Donaldson MD on 04/26/2024 2:03 AM I, Ariel Finn MD have personally reviewed the image(s) and agree with and/or edited the report Finalized by Ariel Finn MD on 04/26/2024 2:13 AM Normal [facility] aPTT Coag (PPP) [Time]on aPTT Coag (Bld) [Time] 34 s Normal 26-37 [facility] Comment on above: Result Comment: NEW REFERENCE RANGE Performed By: #### [place], [address]-6, CBCA, 30565-1, 70945-2, PINR, 40290-9 ####[facility] ([id number])[address] [place] [address] angio abd aorta runoffon 04-20-2024 CT angio abd aorta runoff [facility] Main Chambers [address] [place] [address] Scan Report Signed Patient: Ila Morejon MR#: [id number] 201 : 1945 Acct:[id number] Age/Sex: 78 / M ADM Date: 04/20/24 Loc: CT Room: Type: [facility] Attending Dr: Luiz Glass MD Copies to: Luiz Glass MD Ordering Provider: Luiz Glass MD Date of Service: 04/20/24 CT/CT angio abd aorta runoff: I70.213 - Atherosclerosis of [place] arteries of extremiti... CTA abdomen, pelvis, and [...] femoral artery without critical stenosis or occlusion. Latin Professor branches appear patent. SFA demonstrates mild calcification [...] femoral artery without critical stenosis or occlusion. Latin Professor branches appear patent. SFA demonstrates mild calcification [...] Son Jr., D.OShruti04/20/2024 2:43 PM Dictation Location: [place] [address] Transcribed By: [facility] 04/20/24 1443 Dictated By: Addy Son Jr DO 04/20/24 1433 Signed By: 04/20/24 1443 Normal [facility] ISTAT XRay CREon 04-20-2024 ISTAT GFR 47.951 Normal [facility] Comment on above: Result Comment: PERF ORMED BY: [place] [address] PATHOLOGIST FORMULA MAKER MATT ANTONIO M.D. Performed By: #### I SCRE #### [facility] [address] [place] [address] No Panel InformationOrdered By: Luiz Glass on 04-20-2024 Bedside Estimated GFR (eGFR) 47.951 [facility] Whole blood creatinine measu rementOrdered By: Luiz Glass on 04-20-2024 Creatinine [Mass/Vol] 1.5 mg/dL High 0.6-1.3 [facility] Comment on above: ER/ESD physician is notified/shown all ISTAT results.Critical values may be confirmed by laboratory testing ifdeemed necessary by ER attending doctor. Result Comment: ER/E SD physician is notified/shown all ISTAT results. Critical values may be confirmed by laboratory testing if deemed necessary by ER attending doctor. Performed By: #### I SCRE #### [facility] [address] [place] [address] Office Visiton 04-12-2024 Follow-up visit [id number] Ila Morejon 1945 Date Provider Department Center 04/12/2024 Castillo[facility]SABINA [facility]LDON [facility] No family history on file Level of Service:81453 MI OFFICE/OUTPATIENT NEW HIGH MDM 60 MINUTES Normal [facility] US art pvr/post Camille 024 US art pvr/post LE [facility] Main Chambers [address] [place] [address]506 Ultrasound Report Signed Patient: Ila Morejon MR#: [id number] [birth year] : 1945 Acct:[id number] Age/Sex: 78 / M ADM Date: 04/07/24 Loc: Room: Type: [facility] Attending Dr: Luiz Glass MD Ordering Provider: Luiz Glass MD Date of Service: 04/07/24 US/US art pvr/post LE: I70.213 - Atherosclerosis of on[place] arteries of extremiti... Copies to: Luiz Glass [...] Luiz Glass MD04/09/2024 11:53 AM Dictation Location: [place] [address] Tech: Lucie Sainz Transcribed By: ZITA 04/09/24 1153 Dictated By: Luiz Glass MD 04/09/24 1151 Signed By: 04/09/24 1153 Normal [facility] CBC AND AUTO DIFFon 03-05-20 ABSOLUTE BASOPHIL 0.2 X10E9/L Normal 0.0-0.2 [facility] Comment on above: Performed By: #### C BCA, CMP, 47633-0, 50092-7, 64608-0 #### [facility] ([id number]) [address] [place] [address] 72033 Basophils/100 WBC (Bld) 1.0 % Normal [facility] Comment on above: Performed By: #### C BCA, CMP, 31387-2, 16920-7, 48924-0 #### [facility] ([id number]) [address] [place] [address] 83561 Erythrocyte distribution width (RBC) [Ratio] 13.6 % Normal 11.5-15.0 [facility] Comment on above: Performed By: #### C BCA, CMP, 39443-0, 22150-7, 98364-2 #### [facility] ([id number]) [address] [place] [address] 00056 Hematocrit (Bld) [Volume fraction] 30.4 % Low 39-49 [facility] Comment on above: Performed By: #### C BCA, CMP, 60785-1, 82777-3, 11944-4 #### [facility] ([id number]) [address] [place] [address] 15814 Hemoglobin (Bld) [Mass/Vol] 10.5 g/dL Low 13.0-17.0 [facility] Comment on above: Performed By: #### C BCA, CMP, 46152-2, 72852-5, 39085-2 #### [facility] ([id number]) [address] [place] [address] 79417 Lymphocytes (Bld) [#/Vol] 8.6 10*3/uL High 1.0-3.5 [facility] Comment on above: Performed By: #### C BCA, CMP, 85745-8, 38005-2, 01134-3 #### [facility] ([id number]) [address] [place] [address] 28001 Lymphocytes/100 WBC (Bld) 47.0 % Normal [facility] Comment on above: Performed By: #### C BCA, CMP, 61229-1, 36712-7, 95890-0 #### [facility] ([id number]) [address] [place] [address] 71086 MCH (RBC) [Entitic mass] 31.2 pg Normal 27-34 [facility] Comment on above: Performed By: #### C BCA, CMP, 35818-1, 62244-8, 70691-8 #### [facility] ([id number]) [address] [place] [address] 83073 MCHC (RBC) [Mass/Vol] 34.7 g/dL Normal 32-36 [facility] Comment on above: Performed By: #### C BCA, CMP, 80756-3, 38953-4, 33654-5 #### [facility] ([id number]) [address] [place] [address] 56839 MCV (RBC) [Entitic vol] 90 fL Normal 80-100 [facility] Comment on above: Performed By: #### C BCA, CMP, 41830-4, 14769-8, 41381-6 #### [facility] ([id number]) [address] [place] [address] 36872 Monocytes (Bld) [#/Vol] 0.7 10*3/uL Normal 0-0.9 [facility] Comment on above: Performed By: #### C BCA, CMP, 13610-4, 57061-6, 60963-6 #### [facility] ([id number]) [address] [place] [address] 11404 Monocytes/100 WBC (Bld) 4.0 % Normal [facility] Comment on above: Performed By: #### C BCA, CMP, 40169-1, 39900-0, 78579-5 #### [facility] ([id number]) [address] [place] [address] 37368 Neutrophils (Bld) [#/Vol] 8.7 10*3/uL High 1.5-6.6 [facility] Comment on above: Performed By: #### Rose Marie BCA, CMP, 79091-5, 80838-1, 17572-5 #### [facility] ([id number]) [address] [place] [address] 73927 Platelet mean volume (Bld) [Entitic vol] 8.9 fL Normal 7-12 [facility] Comment on above: Performed By: #### Rose Marie BCA, CMP, 18897-8, 19207-3, 95441-3 #### [facility] ([id number]) [address] [place] [address] 26170 Platelets (Bld) [#/Vol] 165 10*3/uL Normal 150-450 [facility] Comment on above: Performed By: #### Rose Marie BCA, CMP, 36780-9, 57184-9, 54523-2 #### [facility] ([id number]) [address] [place] [address] 07996 RBC COUNT 3.38 X10E12/L Low 4.10-5.70 [facility] Comment on above: Performed By: #### Rose Marie BCA, CMP, 10091-5, 31761-6, 76174-7 #### [facility] ([id number]) [address] [place] [address] 22643 RBC morphology finding Nom (Bld) NORMAL Normal [facility] Comment on above: Performed By: #### Rose Marie BCA, CMP, 91294-5, 86733-1, 06257-9 #### [facility] ([id number]) [address] [place] [address] 22883 SEG NEUTROPHIL 48.0 % Normal [facility] Comment on above: Performed By: #### C BCA, CMP, 92762-4, 30729-7, 79439-2 #### [facility] ([id number]) [address] [place] [address] 16605 WBC (Bld) [#/Vol] 18.2 10*3/uL High 4.0-11.0 [facility] Comment on above: Performed By: #### C BCA, CMP, 84059-0, 86488-0, 27723-2 #### [facility] ([id number]) [address] [place] [address] 68645 COMPREHENSIVE METABOLIC PANE Woody 03-05-2024 Albumin [Mass/Vol] 3.4 g/dL Normal 3.2-5.3 [facility] Comment on above: Performed By: #### C BCA, CMP, 85600-8, 58744-5, 30157-7 #### [facility] ([id number]) [address] [place] [address] 99580 ALP [Catalytic activity/Vol] 73 U/L Normal 39-130 [facility] Comment on above: Performed By: #### C BCA, CMP, 16679-7, 61046-6, 21483-4 #### [facility] ([id number]) [address] [place] [address] 70889 ALT [Catalytic activity/Vol] 22 U/L Normal 0-40 [facility] Comment on above: Performed By: #### C BCA, CMP, 84332-2, 33066-2, 75007-1 #### [facility] ([id number]) [address] [place] [address] 21734 Anion gap [Moles/Vol] 6 mmol/L Normal 5-15 [facility] Comment on above: Performed By: #### C BCA, CMP, 50162-3, 38864-9, 53372-3 #### [facility] ([id number]) [address] [place] [address] 62005 AST [Catalytic activity/Vol] 25 U/L Normal 0-41 [facility] Comment on above: Performed By: #### C BCA, CMP, , 20234-6, 25583-2 #### [facility] ([id number]) [address] [place] [address] 08597 Bilirubin [Mass/Vol] 0.8 mg/dL Normal 0.3-1.2 [facility] Comment on above: Performed By: #### C BCA, CMP, , 24073-8, 59987-2 #### [facility] ([id number]) [address] [place] [address] 79491 Calcium [Mass/Vol] 8.6 mg/dL Normal 8.5-10.5 [facility] Comment on above: Performed By: #### C BCA, CMP, , 15644-6, 62253-0 #### [facility] ([id number]) [address] [place] [address] 16664 Chloride [Moles/Vol] 106 mmol/L Normal 98-109 [facility] Comment on above: Performed By: #### C BCA, CMP, , 72354-9, 43078-2 #### [facility] ([id number]) [address] [place] [address] 15710 CO2 [Moles/Vol] 21 mmol/L Low 22-32 [facility] Comment on above: Performed By: #### C BCA, CMP, , 61358-9, 77957-7 #### [facility] ([id number]) [address] [place] [address] 51738 Creatinine [Mass/Vol] 1.83 mg/dL High 0.70-1.20 [facility] Comment on above: Result Comment: METH OD TRACEABLE TO IDMS STANDARD Performed By: #### C LEÓN HAYES, , 88343-1, 75702-5 #### [facility] ([id number]) [address] [place] [address] 45322 GFR/1.73 sq M.predicted among non-blacks MDRD (S/P/Bld) [Vol rate/Area] 38 mL/min/{1.73_m2} Low >59 [facility] Comment on above: Result Comment: Reported eGFR is based on the CKD-EPI 2020 equation that does not use a race coefficient. Performed By: #### C LEÓN HAYES, , 03834-1, 39896-3 #### [facility] ([id number]) [address] [place] [address] 99907 Glucose [Mass/Vol] 277 mg/dL High 65-99 [facility] Comment on above: Performed By: #### C LEÓN HAYES, , 77578-2, 05564-3 #### [facility] ([id number]) [address] [place] [address] 98315 Potassium [Moles/Vol] 5.0 mmol/L Normal 3.5-5.0 [facility] Comment on above: Performed By: #### C LEÓN HAYES, , 45573-7, 41965-6 #### [facility] ([id number]) [address] [place] [address] 62722 Protein [Mass/Vol] 5.9 g/dL Low 6.0-8.0 [facility] Comment on above: Performed By: #### C ABIGAIL CMP, 50986-4, 31548-5, 26274-8 #### [facility] ([id number]) [address] [place] [address] 60557 Sodium [Moles/Vol] 133 mmol/L Low 134-146 [facility] Comment on above: Performed By: #### C BCA, CMP, 51368-6, 18113-3, 90297-7 #### [facility] ([id number]) [address] [place] [address] 76024 Urea nitrogen [Mass/Vol] 35 mg/dL High 5-27 [facility] Comment on above: Performed By: #### C BCA, CMP, 98962-8, 62455-8, 99956-1 #### [facility] ([id number]) [address] [place] [address] 95849 Glucose Glucometer (BldC) [M ass/Vol]on 03-05-2024 Glucose [Mass/Vol] 267 mg/dL High 65-99 [facility] MAGNESIUMon 03-05-2024 Magnesium [Mass/Vol] 2.0 mg/dL Normal 1.8-2.6 [facility] Comment on above: Performed By: #### C BCA, CMP, 08509-5, 97519-0, 65482-4 #### [facility] ([id number]) [address] [place] [address] 21191 Natriuretic peptide B [Mass/ Vol]on 03-05-2024 Natriuretic peptide B (Bld) [Mass/Vol] 440 pg/mL High <100.0 [facility] Comment on above: Performed By: #### C BCA, CMP, 40371-4, 07804-9, 15666-5 #### [facility] ([id number]) [address] [place] [address] 21749 Troponin I.cardiac High sens itivity method [Mass/Vol]on 03-05-2024 1 HOUR TROP I, HIGH SENSITIVITY 15 ng/L Normal <21 [facility] Comment on above: Performed By: #### 8 9579-7 #### [facility] ([id number]) [address] [place] [address] TROPONIN I, HIGH SENSITIVITY 15 ng/L Normal <21 [facility] Comment on above: Performed By: #### C BCA, CMP, 96465-6, 05874-0, 76540-6 #### [facility] ([id number]) [address] [place] [address] 88454 URN MACROSCOPIC NURon 2023 BILIRUBIN RALPH Negative Normal NEG [facility] Comment on above: Performed By: #### N UM #### [facility] ([id number]) [address] [place] [address] [place] [address] BLOOD/HGB RALPH Trace Abnormal NEG [facility] Comment on above: Performed By: #### N UM #### [facility] ([id number]) [address] [place] [address] [place] [address] GLUCOSE RALPH 100 mg/dL Abnormal NEG [facility] Comment on above: Performed By: #### N UM #### [facility] ([id number]) [address] [place] [address] [place] [address] KETONES RALPH Negative Normal NEG [facility] Comment on above: Performed By: #### N UM #### [facility] ([id number]) [address] [place] [address] [place] [address] LEUKOCYTE ESTERASE RALPH Negative Normal NEG [facility] Comment on above: Performed By: #### N UM #### [facility] ([id number]) [address] [place] [address] [place] [address] NITRITE RALPH Negative Normal NEG [facility] Comment on above: Performed By: #### N UM #### [facility] ([id number]) [address] [place] [address] 75868 PH RALPH 5.5 Normal 5.0-8.5 [facility] Comment on above: Performed By: #### N UM #### [facility] ([id number]) [address] [place] [address] 19694 PROTEIN RALPH >=300 Abnormal NEG [facility] Comment on above: Performed By: #### N UM #### [facility] ([id number]) [address] [place] [address] 13636 SPECIFIC GRAVITY RALPH >=1.030 Normal 1.003-1.035 [facility] Comment on above: Performed By: #### N UM #### [facility] ([id number]) [address] [place] [address] 85975 UROBILINOGEN RALPH 0.2 eu/dL Normal <1.1 [facility] Comment on above: Performed By: #### N UM #### [facility] ([id number]) [address] [place] [address] 68359 CBC W Auto Differential pane l (Bld)on 01-16-2024 Basophils (Bld) [#/Vol] 0.17 10*3/uL High <0.11 [facility] Comment on above: Order Comment: Speci men Type: BLOOD SPECIMEN Ordering Facility: [facility] Address: [address] [place] [address] Performed By: #### 5 7021-8 #### [facility] CLIA [id number] [address] [place] [address] LAB CLIA [id number] [address] [place] [address] [place] Basophils/100 WBC (Bld) 1.0 % Normal [facility] Comment on above: Order Comment: Speci men Type: BLOOD SPECIMEN Ordering Facility: [facility] Address: [address] [place] [address] Performed By: #### 5 7021-8 #### [facility] CLIA [id number] [address] [place] [address] LAB CLIA [id number] [address] [place] [address] [place] Differential cell count method Nom (Bld) Manual Normal [facility] Comment on above: Order Comment: Speci men Type: BLOOD SPECIMEN Ordering Facility: [facility] Address: [address] [place] [address] Performed By: #### 5 7021-8 #### [facility] CLIA [id number] [address] [place] [address] LAB CLIA [id number] [address] [place] [address] [place] Eosinophils (Bld) [#/Vol] 0.17 10*3/uL Normal <0.46 [facility] Comment on above: Order Comment: Speci men Type: BLOOD SPECIMEN Ordering Facility: [facility] Address: [address] [place] [address] Performed By: #### 5 7021-8 #### [facility] CLIA [id number] [address] [place] [address] LAB CLIA [id number] [address] [place] [address] [place] Eosinophils/100 WBC (Bld) 1.0 % Normal [facility] Comment on above: Order Comment: Speci men Type: BLOOD SPECIMEN Ordering Facility: [facility] Address: [address] [place] [address] Performed By: #### 5 7021-8 #### [facility] CLIA [id number] [address] [place] [address] LAB CLIA [id number] [address] [place] [address] [place] Erythrocyte distribution width (RBC) [Ratio] 13.4 % Normal 11.5-15.0 [facility] Comment on above: Order Comment: Speci men Type: BLOOD SPECIMEN Ordering Facility: [facility] Address: [address] [place] [address] Performed By: #### 5 7021-8 #### [facility] CLIA [id number] [address] [place] [address] LAB CLIA [id number] [address] [place] [address] [place] Hematocrit (Bld) [Volume fraction] 30.8 % Low 39.0-51.0 [facility] Comment on above: Order Comment: Speci men Type: BLOOD SPECIMEN Ordering Facility: [facility] Address: [address] [place] [address] Performed By: #### 5 7021-8 #### [facility] CLIA [id number] [address] [place] [address] LAB CLIA [id number] [address] [place] [address] [place] Hemoglobin (Bld) [Mass/Vol] 10.6 g/dL Low 13.0-17.0 [facility] Comment on above: Order Comment: Speci men Type: BLOOD SPECIMEN Ordering Facility: [facility] Address: [address] [place] [address] Performed By: #### 5 7021-8 #### [facility] CLIA [id number] [address] [place] [address] LAB CLIA [id number] [address] [place] [address] [place] Lymphocytes (Bld) [#/Vol] 10.02 10*3/uL High 1.00-4.00 [facility] Comment on above: Order Comment: Speci men Type: BLOOD SPECIMEN Ordering Facility: [facility] Address: [address] [place] [address] Performed By: #### 5 7021-8 #### [facility] CLIA [id number] [address] [place] [address] LAB CLIA [id number] [address] [place] [address] [place] Lymphocytes/100 WBC (Bld) 59.0 % Normal [facility] Comment on above: Order Comment: Speci men Type: BLOOD SPECIMEN Ordering Facility: [facility] Address: [address] [place] [address] Performed By: #### 5 7021-8 #### [facility] CLIA [id number] [address] [place] [address] LAB CLIA [id number] [address] [place] [address] [place] MCH (RBC) [Entitic mass] 31.4 pg Normal 26.0-34.0 [facility] Comment on above: Order Comment: Speci men Type: BLOOD SPECIMEN Ordering Facility: [facility] Address: [address] [place] [address] Performed By: #### 5 7021-8 #### [facility] CLIA [id number] [address] [place] [address] LAB CLIA [id number] [address] [place] [address] [place] MCHC (RBC) [Mass/Vol] 34.4 g/dL Normal 30.5-36.0 [facility] Comment on above: Order Comment: Speci men Type: BLOOD SPECIMEN Ordering Facility: [facility] Address: [address] [place] [address] Performed By: #### 5 7021-8 #### [facility] CLIA [id number] [address] [place] [address] LAB CLIA [id number] [address] [place] [address] [place] MCV (RBC) [Entitic vol] 91.1 fL Normal 80.0-100.0 [facility] Comment on above: Order Comment: Speci men Type: BLOOD SPECIMEN Ordering Facility: [facility] Address: [address] [place] [address] Performed By: #### 5 7021-8 #### [facility] CLIA [id number] [address] [place] [address] LAB CLIA [id number] [address] [place] [address] [place] Monocytes (Bld) [#/Vol] 0.51 10*3/uL Normal <0.87 [facility] Comment on above: Order Comment: Speci men Type: BLOOD SPECIMEN Ordering Facility: [facility] Address: [address] [place] [address] Performed By: #### 5 7021-8 #### [facility] CLIA [id number] [address] [place] [address] LAB CLIA [id number] [address] [place] [address] [place] Monocytes/100 WBC (Bld) 3.0 % Normal [facility] Comment on above: Order Comment: Speci men Type: BLOOD SPECIMEN Ordering Facility: [facility] Address: [address] [place] [address] Performed By: #### 5 7021-8 #### [facility] CLIA [id number] [address] [place] [address] LAB CLIA [id number] [address] [place] [address] [place] Neutrophils (Bld) [#/Vol] 6.11 10*3/uL Normal 1.45-7.50 [facility] Comment on above: Order Comment: Speci men Type: BLOOD SPECIMEN Ordering Facility: [facility] Address: [address] [place] [address] Performed By: #### 5 7021-8 #### [facility] CLIA [id number] [address] [place] [address] LAB CLIA [id number] [address] [place] [address] [place] Neutrophils/100 WBC (Bld) 36.0 % Normal [facility] Comment on above: Order Comment: Speci men Type: BLOOD SPECIMEN Ordering Facility: [facility] Address: [address] [place] [address] Performed By: #### 5 7021-8 #### [facility] CLIA [id number] [address] [place] [address] LAB CLIA [id number] [address] [place] [address] [place] Nucleated RBC (Bld) [#/Vol] 10*3/uL Normal <0.01 [facility] Comment on above: Order Comment: Speci men Type: BLOOD SPECIMEN Ordering Facility: [facility] Address: [address] [place] [address] Performed By: #### 5 7021-8 #### [facility] CLIA [id number] [address] [place] [address] LAB CLIA [id number] [address] [place] [address] [place] Nucleated RBC/100 WBC (Bld) [Ratio] 0.0 /100 WBC Normal [facility] Comment on above: Order Comment: Speci men Type: BLOOD SPECIMEN Ordering Facility: [facility] Address: [address] [place] [address] Performed By: #### 5 7021-8 #### [facility] CLIA [id number] [address] [place] [address] LAB CLIA [id number] [address] [place] [address] [place] Ovalocytes LM Ql (Bld) Few Normal [facility] Comment on above: Order Comment: Speci men Type: BLOOD SPECIMEN Ordering Facility: [facility] Address: [address] [place] [address] Performed By: #### 5 7021-8 #### [facility] CLIA [id number] [address] [place] [address] LAB CLIA [id number] [address] [place], [place] [id number] [place] Platelet mean volume (Bld) [Entitic vol] 10.2 fL Normal 9.0-12.7 [facility] Comment on above: Order Comment: Speci men Type: BLOOD SPECIMEN Ordering Facility: [facility] Address: [address] [place] [address] Performed By: #### 5 7021-8 #### [facility] CLIA [id number] [address] [place] [address] LAB CLIA [id number] [address] [place] [address] [place] Platelets (Bld) [#/Vol] 172 10*3/uL Normal 150-400 [facility] Comment on above: Order Comment: Speci men Type: BLOOD SPECIMEN Ordering Facility: [facility] Address: [address] [place] [address] Performed By: #### 5 7021-8 #### [facility] CLIA [id number] [address] [place] [address] LAB CLIA [id number] [address] [place] [address] [place] Platelets Estimate (Bld) [#/Vol] Adequate Normal [facility] Comment on above: Order Comment: Speci men Type: BLOOD SPECIMEN Ordering Facility: [facility] Address: [address] [place] [address] Performed By: #### 5 7021-8 #### [facility] CLIA [id number] [address] [place] [address] LAB CLIA [id number] [address] [place] [address] [place] Polychromasia LM Ql (Bld) Slight Normal [facility] Comment on above: Order Comment: Speci men Type: BLOOD SPECIMEN Ordering Facility: [facility] Address: [address] [place] [address] Performed By: #### 5 7021-8 #### [facility] CLIA [id number] [address] [place] [address] LAB CLIA [id number] [address] [place] [address] [place] RBC (Bld) [#/Vol] 3.38 10*6/uL Low 4.20-6.00 [facility] Comment on above: Order Comment: Speci men Type: BLOOD SPECIMEN Ordering Facility: [facility] Address: [address] [place] [address] Performed By: #### 5 7021-8 #### [facility] CLIA [id number] [address] [place] [address] LAB CLIA [id number] [address] [place] [address] [place] RBC FRAGMENTS Few Abnormal None Seen [facility] Comment on above: Order Comment: Speci men Type: BLOOD SPECIMEN Ordering Facility: [facility] Address: [address] [place] [address] Performed By: #### 5 7021-8 #### [facility] CLIA [id number] [address] [place] [address] LAB CLIA [id number] [address] [place] [address] [place] RED CELL MORPH Reviewed: see result s of individual morphologies Normal [facility] Comment on above: Order Comment: Speci men Type: BLOOD SPECIMEN Ordering Facility: [facility] Address: [address] [place] [address] Performed By: #### 5 7021-8 #### [facility] CLIA [id number] [address] [place] [address] LAB CLIA [id number] [address] [place] [address] [place] WBC (Bld) [#/Vol] 16.98 10*3/uL High 3.70-11.00 [facility] Comment on above: Order Comment: Speci men Type: BLOOD SPECIMEN Ordering Facility: [facility] Address: [address] [place] [address] Performed By: #### 5 7021-8 #### [facility] CLIA [id number] [address] [place] [address] [facility] CLIA [id number] [address] [facility] [id number] [place], [place] [id number] [facility] CNOVSPon 01-16-2024 CNOVSP Visit (SP) Office (HEMASA) ILA MOREJON ([id number]) 1945 M Date Time Provider Department 01/16/24 2:45 PM FARAZ BECKHAM HEMCATINA During your visit today, we recorded the following information about you: Temperature Pulse Respiration Blood pressure 97.2 degrees 45/minute 18/minute 132/35 Weight 73.2 kg Faraz Beckham MD 01/16/2024 2:33 PM Signed RTC in 6 months, with labs same day. Faraz Beckham MD 01/16/2024 6:22 PM Signed NAME: Ila Morejon CLINIC NO.: [id number] DATE OF SERVICE: January 16, 2024 (Lory) [...] Reverse Chronological Order 04/04/2023 - Admitted to [facility] with NSTEMI Underwent placement of [...] Has been sleeping more, especially since the [place]. Updated Visit, December 27, 2022: 13 year [...] lesions, wounds (more content not included)... Normal [facility] Comprehensive metabolic 2000 panelon 01-16-2024 Albumin [Mass/Vol] 3.8 g/dL Low 3.9-4.9 [facility] Comment on above: Order Comment: Speci men Type: BLOOD SPECIMENOrdering Facility: [facility] Address: [address] [place] [address] Performed By: #### 2 4323-8, 253-0 ####[facility] LABCLIA [id number] [place] [address] ALP [Catalytic activity/Vol] 84 U/L Normal 38-113 [facility] Comment on above: Order Comment: Speci men Type: BLOOD SPECIMENOrdering Facility: [facility] Address: [address] [place] [address] Performed By: #### 2 4323-8, 2531-0 ####[facility] LABCLIA [id number] [place] [address] ALT [Catalytic activity/Vol] 34 U/L Normal 10-54 [facility] Comment on above: Order Comment: Speci men Type: BLOOD SPECIMENOrdering Facility: [facility] Address: [address] [place] [address] Performed By: #### 2 4323-8, 2532-0 ####[facility] LABCLIA [id number] [place] [address] Anion gap [Moles/Vol] 6 mmol/L Low 8-15 [facility] Comment on above: Order Comment: Speci men Type: BLOOD SPECIMENOrdering Facility: [facility] Address: [address] [place] [address] Performed By: #### 2 4323-8, 2532-0 ####[facility] LABCLIA [id number] [place] [address] AST [Catalytic activity/Vol] 26 U/L Normal 14-40 [facility] Comment on above: Order Comment: Speci men Type: BLOOD SPECIMENOrdering Facility: [facility] Address: [address] [place] [address] Performed By: #### 2 4323-8, 2531-0 ####[facility] LABCLIA [id number] [place] [address] Bilirubin [Mass/Vol] 0.4 mg/dL Normal 0.2-1.3 [facility] Comment on above: Order Comment: Speci men Type: BLOOD SPECIMENOrdering Facility: [facility] Address: [address] [place], [place] [address] Performed By: #### 2 4323-8, 2531-0 ####[facility] LABIA [id number] [place] [address] Calcium [Mass/Vol] 9.8 mg/dL Normal 8.5-10.2 [facility] Comment on above: Order Comment: Speci men Type: BLOOD SPECIMENOrdering Facility: [facility] Address: [address] [place], [place] [address] Performed By: #### 2 4323-8, 2531-0 ####[facility] LABIA [id number] [place] [address] Chloride [Moles/Vol] 107 mmol/L Normal 98-107 [facility] Comment on above: Order Comment: Speci men Type: BLOOD SPECIMENOrdering Facility: [facility] Address: [address] [place] [address] Performed By: #### 2 4323-8, 2531-0 ####[facility] LABCLIA [id number] [place] [address] CO2 [Moles/Vol] 24 mmol/L Normal 22-30 [facility] Comment on above: Order Comment: Speci men Type: BLOOD SPECIMENOrdering Facility: [facility] Address: [address] [place] [address] Performed By: #### 2 4323-8, 2531-0 ####[facility] LABCLIA [id number] [place] [address] Creatinine [Mass/Vol] 1.64 mg/dL High 0.73-1.22 [facility] Comment on above: Order Comment: Michael feng Type: BLOOD SPECIMENOrdering Facility: [facility] Address: [address] [place] [address] Performed By: #### 2 4323-8, 2531-0 ####[facility] LABCLIA [id number] [place] [address] Creatinine and Glomerular filtration rate.predicted panel (S/P/Bld) 43 mL/min/1.73m??? Low >=60 [facility] Comment on above: Order Comment: Michael feng Type: BLOOD SPECIMENOrdering Facility: [facility] Address: [address] [place] [address] Result Comment: Silvana mated Glomerular Filtration Rate [...] GFR. Performed By: #### 2 4323-8, 2531-0 ####[facility] LABCLIA [id number] [place] [address] Glucose [Mass/Vol] 180 mg/dL High 74-99 [facility] Comment on above: Order Comment: Michael feng Type: BLOOD SPECIMENOrdering Facility: [facility] Address: [address] [place] [address] Result Comment: The [place] Diabetes Association (ADA) provides guidance for cutoff [...] Standards of Medical Care in Diabetes 2016, [place] [employer]. Diabetes Care. 2016.39(Suppl 1). Performed By: #### 2 4323-8, 2531-0 ####[facility] LABCLIA [id number] [place] [address] Potassium [Moles/Vol] 5.2 mmol/L High 3.7-5.1 [facility] Comment on above: Order Comment: Speci men Type: BLOOD SPECIMENOrdering Facility: [facility] Address: [address] [place] [address] Performed By: #### 2 43238, 0 ####[facility] LABIA [id number] [place] [address] Protein [Mass/Vol] 6.3 g/dL Normal 6.3-8.0 [facility] Comment on above: Order Comment: Speci men Type: BLOOD SPECIMENOrdering Facility: [facility] Address: [address] [place] [address] Performed By: #### 2 43238, 0 ####[facility] LABIA [id number] [place] [address] Sodium [Moles/Vol] 137 mmol/L Normal 136-144 [facility] Comment on above: Order Comment: Speci men Type: BLOOD SPECIMENOrdering Facility: [facility] Address: [address] [place] [address] Performed By: #### 2 43238, 0 ####[facility] LABIA [id number] [place] [address] Urea nitrogen [Mass/Vol] 29 mg/dL High 9-24 [facility] Comment on above: Order Comment: Speci men Type: BLOOD SPECIMENOrdering Facility: [facility] Address: [address] [place] [address] Performed By: #### 2 4323-8, 2532-0 ####[facility] LABCLIA [id number] [place] [address] Ferritin SerPl-mCncon 2023 Ferritin [Mass/Vol] 72.6 ng/mL Normal 30.3-565.7 [facility] Comment on above: Order Comment: Speci men Type: BLOOD SPECIMEN Ordering Facility: [facility] Address: [address] [place] [address] Performed By: #### 5 0190-8, 9, 2275-10, 8 #### [facility] CLIA [id number] [address] [place] [address] [place] Folate SerPl-ncon 01-16-20 Folate [Mass/Vol] 18.7 ng/mL Normal >4.7 [facility] Comment on above: Order Comment: Speci men Type: BLOOD SPECIMEN Ordering Facility: [facility] Address: [address] [place] [address] Performed By: #### 5 0190-8, 9, 2275-10, 2284-02 #### [facility] CLIA [id number] [address] [place] [address] [place] Iron and Iron binding capaci ty panelon 01-16-2024 Iron [Mass/Vol] 185 ug/dL Normal 41-186 [facility] Comment on above: Order Comment: Speci men Type: BLOOD SPECIMEN Ordering Facility: [facility] Address: [address] [place] [address] Performed By: #### 5 0190-8, 9, 2275-10, 2284-02 #### [facility] CLIA [id number] [address] [place] [address] [place] Iron binding capacity [Mass/Vol] 363 ug/dL Normal 232-386 [facility] Comment on above: Order Comment: Speci men Type: BLOOD SPECIMEN Ordering Facility: [facility] Address: [address] [place] [address] Performed By: #### 5 0190-8, 9, 2275-10, 2284-02 #### [facility] CLIA [id number] [address] [place] [address] [place] Iron/TIBC [Molar ratio] 51.0 % Normal 15.0-57.0 [facility] Comment on above: Order Comment: Speci men Type: BLOOD SPECIMEN Ordering Facility: [facility] Address: [address] [place] [address] Performed By: #### 5 0190-8, 2132-03, 2275-10, 2284-02 #### [facility] CLIA [id number] [address] [place] [address] [place] LDH SerPl-cCncon 01-16-2024 LDH [Catalytic activity/Vol] 182 U/L Normal 135-225 [facility] Comment on above: Order Comment: Speci men Type: BLOOD SPECIMENOrdering Facility: [facility] Address: [address] [place] [address] Performed By: #### 2 4323-8, 2532-0 ####[facility] LABCLIA [id number] [place] [address] Vit B12 SerPl-mCncon 024 Cobalamin (Vitamin B12) [Mass/Vol] 1200 pg/mL Normal 232-1245 [facility] Comment on above: Order Comment: Speci men Type: BLOOD SPECIMEN Ordering Facility: [facility] Address: [address] [place] [address] Performed By: #### 5 0190-8, 9, 2275-10, 2284-02 #### [facility] CLIA [id number] [address] [place] [address] [place] Woody 12-27-2023 L Specimen: [id number] Received: 12/29/23 Status: RAMONA Hobbs Num: [id number] Spec Type: Impression Subm Dr: Arminda Valverde DO Tissues: PATHPER Procedures: PATHREVIEW Age/ Patient Sex Location Account Attending Physician Ila Morejon 78/M LABELL [id number] Arminda Valverde DO SPEC NUM: [id number] RECD: 12/29/23 STATUS: RAMONA HOBBS NUM: [id number] JERRY: 12/27/[address]: Arminda Valverde DO ENTERED: 12/29/23 [facility] DR: Collin Bernal SPEC TYPE: Impression DEPT: JAY Garay ENTERED BY: [id number] RECV BY: [id number] ORDERED: PATHREVIEW ORDERED: PATHREVIEW Pathologist Review Abnormal [...] ---- Specimen: [id number] Received: 12/29/23 Status: RAMONA Hobbs Num: [id number] Spec Type: Impression Subm Dr: Arminda Valverde DO Tissues: PATHPER Procedures: PATHREVIEW ---- Patient: Ila Morejon [id number] (Continued) ---- Specimen: [id number] Received: 12/29/23 (Continued) Pathologist Review (Continued) Signed (signature on file) Nicole Askew MD 12/29/23 1731 ---- Specimen: [id number] Received: 12/29/23 Status: RAMONA Hobbs Num: [id number] Spec Type: Impression Subm Dr: Arminda Valverde DO Tissues: PATHPER Procedures: PATHREVIEW ---- Patient: Ial Morejon [id number] (Continued) ---- Specimen: [id number] Received: 12/29/23 (Continued) Pathologist Review (Continued) part of the myelosuppression, including hairy cell leukemia, otherwise is not very apparent in this CBC except mild chronic anemia -If the CBC abnormality continues to persist or progress, further hematology consultation, including flow cytometric assessment of the peripheral blood, may also be suggested as appropriate CPT: 64890 CBC No results available. ---- ---- Specimen: [id number] Received: 12/29/23 Status: RAMONA Hobbs Num: [id number] Spec Type: Impression Subm Dr: Arminda L Rice, DO Tissues: PATHPER Procedures: PATHREVIEW ---- Patient: Ila Morejon Julianna [id number] (Continued) ---- Signed (signature on file) Chin-Berto Askew MD 12/29/23 1731 Normal [facility] HGB A1C (GLYCO-HGB)on 2023 Glucose [Mass/Vol] 151 mg/dL Normal [facility] HbA1c (Bld) [Mass fraction] 6.9 % High 4.4-5.6 [facility] Comment on above: Result Comment: NOTE [...] Basophils (Bld) [#/Vol] 0.14 10*3/uL High <0.11 [facility] Comment on above: Order Comment: Speci ping Type: BLOOD SPECIMEN Ordering Facility: [facility] Address: [address] [place] [address] [place] [address] Performed By: #### 5 7021-8 #### [facility] CLIA [id number] [address] [place] [address] LAB CLIA [id number] [address] [place] [address] [place] Basophils/100 WBC (Bld) 1.0 % Normal [facility] Comment on above: Order Comment: Speci men Type: BLOOD SPECIMEN Ordering Facility: [facility] Address: [address] [place] [address] Performed By: #### 5 7021-8 #### [facility] CLIA [id number] [address] [place] [address] LAB CLIA [id number] [address] [place] [address] [place] Differential cell count method Nom (Bld) Manual Normal [facility] Comment on above: Order Comment: Speci men Type: BLOOD SPECIMEN Ordering Facility: [facility] Address: [address] [place] [address] Performed By: #### 5 7021-8 #### [facility] CLIA [id number] [address] [place] [address] LAB CLIA [id number] [address] [place] [address] [place] Eosinophils (Bld) [#/Vol] 0.14 10*3/uL Normal <0.46 [facility] Comment on above: Order Comment: Speci men Type: BLOOD SPECIMEN Ordering Facility: [facility] Address: [address] [place] [address] Performed By: #### 5 7021-8 #### [facility] CLIA [id number] [address] [place] [address] LAB CLIA [id number] [address] [place] [address] [place] Eosinophils/100 WBC (Bld) 1.0 % Normal [facility] Comment on above: Order Comment: Speci men Type: BLOOD SPECIMEN Ordering Facility: [facility] Address: [address] [place] [address] Performed By: #### 5 7021-8 #### [facility] CLIA [id number] [address] [place] [address] LAB CLIA [id number] [address] [place] [address] [place] Erythrocyte distribution width (RBC) [Ratio] 13.2 % Normal 11.5-15.0 [facility] Comment on above: Order Comment: Speci men Type: BLOOD SPECIMEN Ordering Facility: [facility] Address: [address] [place] [address] Performed By: #### 5 7021-8 #### [facility] CLIA [id number] [address] [place] [address] LAB CLIA [id number] [address] [place] [address] [place] Hematocrit (Bld) [Volume fraction] 32.0 % Low 39.0-51.0 [facility] Comment on above: Order Comment: Speci men Type: BLOOD SPECIMEN Ordering Facility: [facility] Address: [address] [place] [address] Performed By: #### 5 7021-8 #### [facility] CLIA [id number] [address] [place] [address] LAB CLIA [id number] [address] [place] [address] [place] Hemoglobin (Bld) [Mass/Vol] 10.8 g/dL Low 13.0-17.0 [facility] Comment on above: Order Comment: Speci men Type: BLOOD SPECIMEN Ordering Facility: [facility] Address: [address] [place] [address] Performed By: #### 5 7021-8 #### [facility] CLIA [id number] [address] [place] [address] LAB CLIA [id number] [address] [place] [address] [place] Lymphocytes (Bld) [#/Vol] 7.95 10*3/uL High 1.00-4.00 [facility] Comment on above: Order Comment: Speci men Type: BLOOD SPECIMEN Ordering Facility: [facility] Address: [address] [place] [address] Performed By: #### 5 7021-8 #### [facility] CLIA [id number] [address] [place] [address] LAB CLIA [id number] [facility] [place] [address] [place] Lymphocytes/100 WBC (Bld) 57.0 % Normal [facility] Comment on above: Order Comment: Speci men Type: BLOOD SPECIMEN Ordering Facility: [facility] Address: [address] [place] [address] Performed By: #### 5 7021-8 #### [facility] CLIA [id number] [address] [place] [address] LAB CLIA [id number] [address] [place] [address] [place] MCH (RBC) [Entitic mass] 30.9 pg Normal 26.0-34.0 [facility] [facility] Comment on above: Order Comment: Speci men Type: BLOOD SPECIMEN Ordering Facility: [facility] Address: [address] [place] [address] Performed By: #### 5 7021-8 #### [facility] CLIA [id number] [address] [place] [address] LAB CLIA [id number] [address] [place] [address] [place] MCHC (RBC) [Mass/Vol] 33.8 g/dL Normal 30.5-36.0 [facility] Comment on above: Order Comment: Speci men Type: BLOOD SPECIMEN Ordering Facility: [facility] Address: [address] [place], [place] [address] [address] Performed By: #### 5 7021-8 #### [facility] CLIA [id number] [address] [place] [address] LAB CLIA [id number] [facility] [place] [address] [place] MCV (RBC) [Entitic vol] 91.7 fL Normal 80.0-100.0 [facility] Comment on above: Order Comment: Speci men Type: BLOOD SPECIMEN Ordering Facility: [facility] Address: [address] [place] [address] Performed By: #### 5 7021-8 #### [facility] CLIA [id number] [address] [place] [address] LAB CLIA [id number] [address] [place] [address] [place] Monocytes (Bld) [#/Vol] 0.84 10*3/uL Normal <0.87 [facility] Comment on above: Order Comment: Speci men Type: BLOOD SPECIMEN Ordering Facility: [facility] Address: [address] [place] [address] Performed By: #### 5 7021-8 #### [facility] CLIA [id number] [address] [place] [address] LAB CLIA [id number] [address] [place] [address] [place] Monocytes/100 WBC (Bld) 6.0 % Normal [facility] Comment on above: Order Comment: Speci men Type: BLOOD SPECIMEN Ordering Facility: [facility] Address: [address] [place] [address] Performed By: #### 5 7021-8 #### [facility] CLIA [id number] [address] [place] [address] LAB CLIA [id number] [address] [place] [address] [place] Neutrophils (Bld) [#/Vol] 4.88 10*3/uL Normal 1.45-7.50 [facility] Comment on above: Order Comment: Speci men Type: BLOOD SPECIMEN Ordering Facility: [facility] Address: [address] [place] [address] Performed By: #### 5 7021-8 #### [facility] CLIA [id number] [address] [place] [address] LAB CLIA [id number] [address] [place] [address] [place] Neutrophils/100 WBC (Bld) 35.0 % Normal [facility] Comment on above: Order Comment: Speci men Type: BLOOD SPECIMEN Ordering Facility: [facility] Address: [address] [place] [address] Performed By: #### 5 7021-8 #### [facility] CLIA [id number] [address] [place] [address] LAB CLIA [id number] [address] [place] [address] [place] Nucleated RBC (Bld) [#/Vol] 10*3/uL Normal <0.01 [facility] Comment on above: Order Comment: Speci men Type: BLOOD SPECIMEN Ordering Facility: [facility] Address: [address] [place] [address] Performed By: #### 5 7021-8 #### [facility] CLIA [id number] [address] [place] [address] LAB CLIA [id number] [address] [place] [address] [place] Nucleated RBC/100 WBC (Bld) [Ratio] 0.0 /100 WBC Normal [facility] Comment on above: Order Comment: Speci men Type: BLOOD SPECIMEN Ordering Facility: [facility] Address: [address] [place] [address] Performed By: #### 5 7021-8 #### [facility] CLIA [id number] [address] [place] [address] LAB CLIA [id number] [address] [place] [address] [place] Ovalocytes LM Ql (Bld) Few Normal [facility] Comment on above: Order Comment: Speci men Type: BLOOD SPECIMEN Ordering Facility: [facility] Address: [address] [place] [address] Performed By: #### 5 7021-8 #### [facility] CLIA [id number] [address] [place] [address] LAB CLIA [id number] [address] [place] [address] [place] Platelet mean volume (Bld) [Entitic vol] 10.7 fL Normal 9.0-12.7 [facility] Comment on above: Order Comment: Speci men Type: BLOOD SPECIMEN Ordering Facility: [facility] Address: [address] [place] [address] Performed By: #### 5 7021-8 #### [facility] CLIA [id number] [address] [place] [address] LAB CLIA [id number] [address] [place] [address] [place] Platelets (Bld) [#/Vol] 152 10*3/uL Normal 150-400 [facility] Comment on above: Order Comment: Speci men Type: BLOOD SPECIMEN Ordering Facility: [facility] Address: [address] [place] [address] Performed By: #### 5 7021-8 #### [facility] CLIA [id number] [address] [place] [address] LAB CLIA [id number] [address] [place] [address] [place] Platelets Estimate (Bld) [#/Vol] Adequate Normal [facility] Comment on above: Order Comment: Speci men Type: BLOOD SPECIMEN Ordering Facility: [facility] Address: [address] [place] [address] Performed By: #### 5 7021-8 #### [facility] CLIA [id number] [address] [place] [address] LAB CLIA [id number] [address] [place] [address] [place] RBC (Bld) [#/Vol] 3.49 10*6/uL Low 4.20-6.00 [facility] Comment on above: Order Comment: Speci men Type: BLOOD SPECIMEN Ordering Facility: [facility] Address: [address] [place] [address] Performed By: #### 5 7021-8 #### [facility] CLIA [id number] [address] [place] [address] LAB CLIA [id number] [address] [place] [address] [place] RED CELL MORPH Reviewed: see result s of individual morphologies Normal [facility] Comment on above: Order Comment: Speci men Type: BLOOD SPECIMEN Ordering Facility: [facility] Address: [address] [place] [address] Performed By: #### 5 7021-8 #### [facility] CLIA [id number] [address] [place] [address] LAB CLIA [id number] [address] [place] [address] [place] WBC (Bld) [#/Vol] 13.94 10*3/uL High 3.70-11.00 [facility] Comment on above: Order Comment: Speci men Type: BLOOD SPECIMEN Ordering Facility: [facility] Address: [address] [place] [address] Performed By: #### 5 7021-8 #### [facility] CLIA [id number] [address] [place] [address] LAB CLIA [id number] [address] [place] [address] [place] CNOVSPon 07-16-2023 CNOVSP Visit (SP) Office ([place]) ILA MOREJON ([id number]) 1945 M Date Time Provider Department 07/16/23 2:30 PM FARAZ BECKHAM During your visit today, we recorded the following information about you: Temperature Pulse Respiration Blood pressure 97.7 degrees 42/minute 16/minute 169/38 Weight Height 77.3 kg 1.715 m Faraz Beckham MD 07/16/2023 7:35 PM Signed NAME: Ila Morejon CLINIC NO.: [id number] DATE OF SERVICE: July 16, 2023 (Lory) [...] Reverse Chronological Order 04/04/2023 - Admitted to [facility] with NSTEMI Underwent placement of [...] Has been sleeping more, especially since the [place]. Updated Visit, December 27, 2022: 13 year [...] gabapentin (NEUR (more content not included)... Normal [facility] Comprehensive metabolic 2000 panelon 07-16-2023 Albumin [Mass/Vol] 3.8 g/dL Low 3.9-4.9 [facility] Comment on above: Order Comment: Speci men Type: BLOOD SPECIMENOrdering Facility: [facility] Address: [address] [place] [address] Performed By: #### 3 084-1, 253-0, ####[facility] LABCLIA [id number] [place] [address] ALP [Catalytic activity/Vol] 88 U/L Normal 38-113 [facility] Comment on above: Order Comment: Speci men Type: BLOOD SPECIMENOrdering Facility: [facility] Address: [address] [place] [address] Performed By: #### 3 084-1, 2531-0, ####[facility] LABIA [id number] [place] [address] ALT [Catalytic activity/Vol] 23 U/L Normal 10-54 [facility] Comment on above: Order Comment: Speci men Type: BLOOD SPECIMENOrdering Facility: [facility] Address: [address] [place] [address] Performed By: #### 3 084-1, 2531-0, ####[facility] LABCLIA [id number] [place] [address] Anion gap [Moles/Vol] 7 mmol/L Low 9-18 [facility] Comment on above: Order Comment: Speci men Type: BLOOD SPECIMENOrdering Facility: [facility] Address: [address] [place] [address] Performed By: #### 3 084-1, 2531-0, ####[facility] LABIA [id number] [place] [address] AST [Catalytic activity/Vol] 23 U/L Normal 14-40 [facility] Comment on above: Order Comment: Speci men Type: BLOOD SPECIMENOrdering Facility: [facility] Address: [address] [place] [address] Performed By: #### 3 084-1, 0, ####[facility] LABCLIA [id number] [place] [address] Bilirubin [Mass/Vol] 0.3 mg/dL Normal 0.2-1.3 [facility] Comment on above: Order Comment: Speci men Type: BLOOD SPECIMENOrdering Facility: [facility] Address: [address] [place] [address] Performed By: #### 3 084-1, 0, ####[facility] LABCLIA [id number] [place] [address] Calcium [Mass/Vol] 9.3 mg/dL Normal 8.5-10.2 [facility] Comment on above: Order Comment: Speci men Type: BLOOD SPECIMENOrdering Facility: [facility] Address: [address] [place] [address] Performed By: #### 3 084-1, 0, ####[facility] LABIA [id number] [place] [address] Chloride [Moles/Vol] 107 mmol/L High 97-105 [facility] Comment on above: Order Comment: Speci men Type: BLOOD SPECIMENOrdering Facility: [facility] Address: [address] [place] [address] Performed By: #### 3 084-1, 0, ####[facility] LABCLIA [id number] [place] [address] CO2 [Moles/Vol] 23 mmol/L Normal 22-30 [facility] Comment on above: Order Comment: Speci men Type: BLOOD SPECIMENOrdering Facility: [facility] Address: [address] [place] [address] Performed By: #### 3 084-1, 0, ####[facility] LABCLIA [id number] [place] [address] Creatinine [Mass/Vol] 1.59 mg/dL High 0.73-1.22 [facility] Comment on above: Order Comment: Speci ping Type: BLOOD SPECIMENOrdering Facility: [facility] Address: [address] [place] [address] Performed By: #### 3 084-1, 0, ####[facility] LABCLIA [id number] [place] [address] Creatinine and Glomerular filtration rate.predicted panel (S/P/Bld) 45 mL/min/1.73m??? Low >=60 [facility] Comment on above: Order Comment: [facility] Type: BLOOD SPECIMENOrdering Facility: [facility] Address: [address] [place] [address] Result Comment: Silvana mated Glomerular Filtration Rate [...] actual GFR. Performed By: #### 3 084-1, 0, ####[facility] LABCLIA [id number] [place] [address] Glucose [Mass/Vol] 200 mg/dL High 74-99 [facility] Comment on above: Order Comment: Speci ping Type: BLOOD SPECIMENOrdering Facility: [facility] Address: [address] [place] [address] Result Comment: The [place] [employer] (ADA) provides guidance for cutoff [...] Standards of Medical Care in Diabetes 2016, [place] [employer]. Diabetes Care. 2016.39(Suppl 1). Performed By: #### 3 084-1, 0, ####[facility] LABCLIA [id number] [place] [address] Potassium [Moles/Vol] 5.3 mmol/L High 3.7-5.1 [facility] Comment on above: Order Comment: Speci men Type: BLOOD SPECIMENOrdering Facility: [facility] Address: [address] [place] [address] Performed By: #### 3 084-1, , ####[facility] LABCLIA [id number] [place] [address] Protein [Mass/Vol] 6.1 g/dL Low 6.3-8.0 [facility] Comment on above: Order Comment: Speci men Type: BLOOD SPECIMENOrdering Facility: [facility] Address: [address] [place] [id number] Performed By: #### 3 084-1, 0, ####[facility] LABCLIA [id number] [place] [address] Sodium [Moles/Vol] 137 mmol/L Normal 136-144 [facility] Comment on above: Order Comment: Speci men Type: BLOOD SPECIMENOrdering Facility: [facility] Address: [address] [place] [address] Performed By: #### 3 084-1, 0, ####[facility] LABCLIA [id number] [place] [address] Urea nitrogen [Mass/Vol] 36 mg/dL High 9-24 [facility] Comment on above: Order Comment: Speci men Type: BLOOD SPECIMENOrdering Facility: [facility] Address: [place] [address] Performed By: #### 3 084-1, 0, ####[facility] LABCLIA [id number] [place] [address] LDH SerPl-cCncon 07-16-2023 LDH [Catalytic activity/Vol] 206 U/L Normal 135-225 [facility] Comment on above: Order Comment: Speci men Type: BLOOD SPECIMENOrdering Facility: [facility] Address: [address] [place] [address] Performed By: #### 3 084-1, 0, ####[facility] LABCLIA [id number] [place] [address] Urate SerPl-mCncon Urate [Mass/Vol] 5.5 mg/dL Normal 4.0-8.1 [facility] Comment on above: Order Comment: Speci men Type: BLOOD SPECIMENOrdering Facility: [facility] Address: [place] [address] Performed By: #### 3 084-1, 0, ####[facility] LABCLIA [id number] [place] [address] B2 MICROGLOBULIN Bon 022 Fdmz-1-Bwvgkegyuhrrf [Mass/Vol] 4.5 ug/mL High <3.1 mg/L [facility] CBC W Auto Differential pane l (Bld)on 06-22-2022 Basophils (Bld) [#/Vol] 0.00 10*3/uL <0.11 k/uL [facility] Basophils/100 WBC (Bld) 0.0 % [facility] Differential cell count method Nom (Bld) Manual [facility] Eosinophils (Bld) [#/Vol] 0.33 10*3/uL <0.46 k/uL [facility] Eosinophils/100 WBC (Bld) 2.0 % [facility] Erythrocyte distribution width (RBC) [Ratio] 12.5 % 11.5 - 15.0 % [facility] Hematocrit (Bld) [Volume fraction] 43.5 % 39.0 - 51.0 % [facility] Hemoglobin (Bld) [Mass/Vol] 15.1 g/dL 13.0 - 17.0 g/dL [facility] Lymphocytes (Bld) [#/Vol] 9.25 10*3/uL High 1.00 - 4.00 k/uL [facility] Lymphocytes/100 WBC (Bld) 56.0 % [facility] MCH (RBC) [Entitic mass] 30.8 pg 26.0 - 34.0 pg [facility] MCHC (RBC) [Mass/Vol] 34.7 g/dL 30.5 - 36.0 g/dL [facility] MCV (RBC) [Entitic vol] 88.8 fL 80.0 - 100.0 fL [facility] Monocytes (Bld) [#/Vol] 1.16 10*3/uL High <0.87 k/uL [facility] Monocytes/100 WBC (Bld) 7.0 % [facility] Neutrophils (Bld) [#/Vol] 5.78 10*3/uL 1.45 - 7.50 k/uL [facility] Neutrophils/100 WBC (Bld) 35.0 % [facility] Nucleated RBC (Bld) [#/Vol] <0.01 k/uL [facility] Nucleated RBC/100 WBC (Bld) [Ratio] 0.0 /100 WBC [facility] Ovalocytes LM Ql (Bld) Few Cl [facility] Platelet mean volume (Bld) [Entitic vol] 10.4 fL 9.0 - 12.7 fL [facility] Platelets (Bld) [#/Vol] 204 10*3/uL 150 - 400 k/uL [facility] Platelets Estimate (Bld) [#/Vol] Adequate [facility] RBC (Bld) [#/Vol] 4.90 10*6/uL 4.20 - 6.0 0 m/uL [facility] Red Cell Morph Reviewed: see result s of individual morphologies [facility] WBC (Bld) [#/Vol] 16.52 10*3/uL High 3.70 - 11 .00 k/uL [facility] Direct antiglobulin test.avelina y specific reagent Ql (RBC)on 06-22-2022 DAGT, Polyspecific AHG Negative Cl [facility] Comprehensive metabolic 2000 panelon 06-21-2022 Albumin [Mass/Vol] 3.7 g/dL Low 3.9 - 4.9 g/dL [facility] ALP [Catalytic activity/Vol] 117 U/L High 38 - 113 U/L [facility] ALT [Catalytic activity/Vol] 9 U/L Low 10 - 54 U/L [facility] Anion gap [Moles/Vol] 3 mmol/L Low 9 - 18 mmol/L [facility] AST [Catalytic activity/Vol] 13 U/L Low 14 - 40 U/L [facility] Bilirubin [Mass/Vol] 0.4 mg/dL 0.2 - 1 .3 mg/dL [facility] Calcium [Mass/Vol] 9.4 mg/dL 8.5 - 10. 2 mg/dL [facility] Chloride [Moles/Vol] 108 mmol/L High 97 - 10 5 mmol/L [facility] CO2 [Moles/Vol] 27 mmol/L 22 - 30 mmol/L [facility] Creatinine [Mass/Vol] 1.19 mg/dL 0.73 - 1.22 mg/dL [facility] Estimated Glomerular Filtration Rate 64 mL/min/1.73m >=60 mL/min/1.73m [facility] Glucose [Mass/Vol] 180 mg/dL High 74 - 99 mg/dL [facility] Potassium [Moles/Vol] 5.4 mmol/L High 3.7 - 5.1 mmol/L [facility] Protein [Mass/Vol] 6.2 g/dL Low 6.3 - 8.0 g/dL [facility] Sodium [Moles/Vol] 138 mmol/L 136 - 144 mmol/L [facility] Urea nitrogen [Mass/Vol] 31 mg/dL High 9 - 24 mg/dL [facility] LD LACTATE DEHYDROon 022 LDH [Catalytic activity/Vol] 179 U/L 135 - 225 U/L [facility] URIC ACID BLOODon 06-21-2022 Urate [Mass/Vol] 4.5 mg/dL 4.0 - 8.1 mg/dL [facility] CBC AUTO DIFFon 06-06-2022 BASO # 0.1 103/ul Normal 0.0-0.1 [facility] Comment on above: Performed By: #### C BC #### [facility] [address] [place] [address] Dr. Lara Askew Basophils/100 WBC (Bld) 0.5 % Normal 0.2-2.0 [facility] Comment on above: Performed By: #### C BC #### [facility] [address] [place] [address] Dr. Lara Askew EO # 0.3 103/ul Normal 0.0-0.7 [facility] Comment on above: Performed By: #### C BC #### [facility] [address] [place] [address] Dr. Lara Askew Eosinophils/100 WBC (Bld) 1.6 % Normal 0.9-7.0 [facility] Comment on above: Performed By: #### C BC #### [facility] [address] [place] [address] Dr. Lara Askew Erythrocyte distribution width (RBC) [Ratio] 12.5 % Normal 11.0-15.0 [facility] Comment on above: Performed By: #### C BC #### [facility] [address] [place] [address] Dr. Lara Askew Hematocrit (Bld) [Volume fraction] 39.7 % Critically low 42.0-54.0 [facility] Comment on above: Performed By: #### C BC #### [facility] [address] [place] [address] Dr. Lara Askew Hemoglobin (Bld) [Mass/Vol] 14.0 g/dL Normal 14.0-18.0 [facility] Comment on above: Performed By: #### C BC #### [facility] [address] [place] [address] Dr. Lara Askew IG # 0.07 10e3/ul Critically high 0.00-0.03 [facility] Comment on above: Performed By: #### C BC #### [facility] [address] [place] [address] Dr. Lara Askew IG % 0.4 % Normal 0.0-0.5 [facility] Comment on above: Performed By: #### C BC #### [facility] [address] [place] [address] Dr. Lara Askew LYMPH # 10.1 103/ul Critically high 1.2-3.8 [facility] Comment on above: Performed By: #### C BC #### [facility] [address] [place] [address] Dr. Lara Askew Lymphocytes/100 WBC (Bld) 53.6 % Normal 20.5-60.0 [facility] Comment on above: Performed By: #### C BC #### [facility] [address] [place] [address] Dr. Lara Askew MANUAL DIFF REQ NO Normal [facility] Comment on above: Performed By: #### C BC #### [facility] [address] [place] [address] Dr. Lara Askew MCH (RBC) [Entitic mass] 31.5 pg Normal 25.9-34.0 [facility] Comment on above: Performed By: #### C BC #### [facility] [address] [place] [address] Dr. Lara Askew MCHC (RBC) [Mass/Vol] 35.3 g/dL Critically high 29.9-35.2 [facility] Comment on above: Performed By: #### C BC #### [facility] [address] [place] [address] Dr. Lara Askew MCV (RBC) [Entitic vol] 89.2 fL Normal 80.0-94.0 [facility] Comment on above: Performed By: #### C BC #### [facility] [address] [place] [address] Dr. Lara Askew MONO # 0.7 103/ul Normal 0.3-0.8 [facility] Comment on above: Performed By: #### C BC #### [facility] [address] [place] [address] Dr. Lara Askew Monocytes/100 WBC (Bld) 3.7 % Normal 1.7-12.0 [facility] Comment on above: Performed By: #### C BC #### [facility] [address] [place] [address] [address] Lara Askew NEUT # 7.6 103/ul Critically high 1.4-6.5 [facility] Comment on above: Performed By: #### C BC #### [facility] [address] [place] [address] [address] Lara Askew Neutrophils/100 WBC (Bld) 40.2 % Critically low 43.0-75.0 [facility] Comment on above: Performed By: #### C BC #### [facility] [address] [place] [address] [address] Lara Askew Platelet mean volume (Bld) [Entitic vol] 11.0 fL Normal 9.5-13.5 [facility] Comment on above: Performed By: #### C BC #### [facility] [address] [place] [address] [address] Lara Askwe PLT 185 103/ul Normal 150-450 [facility] Comment on above: Performed By: #### C BC #### [facility] [address] [place] [address] [address] Lara Askew RBC 4.45 106/ul Critically low 4.70-6.10 [facility] Comment on above: Performed By: #### C BC #### [facility] [address] [address] [address] Lara Askew WBC 18.8 103/ul Critically high 4.0-11.0 [facility] Comment on above: Performed By: #### C BC #### [facility] [address] [place] [address] [address] Lara Askew GLYCOHEMOGLOBIN A1Con 2021 ADA RECOMMENDATION SEE BELOW Normal [facility] Comment on above: Result Comment: ADA RECOMMENDED LIMIT 4.0 - 6.0 ADA THERAPEUTIC TARGET < 7.0 ACTION SUGGESTED > 7.0 Performed By: #### A 1C #### [facility] [facility] [address] [address] [address] Lara Askew Glucose [Mass/Vol] 148 mg/dL Normal [facility] Comment on above: Performed By: #### A 1C #### [facility] [address] [address] [address] Lara Askew HbA1c (Bld) [Mass fraction] 6.8 % Critically high 4.5-6.2 [facility] Comment on above: Performed By: #### A 1C #### [facility] [address] [address] [address] Lara Askew LIPID PROFILEon 06-06-2022 CHOL-HDL RATIO NORM SEE BELOW Normal [facility] Comment on above: Result Comment: 3.3 - 4.4 LOW RISK 4.4 - 7.1 AVERAGE RISK 7.1 - 11.0 MODERATE RISK >11.0 HIGH RISK Performed By: #### L IVER, LIPID, BMP #### [facility] [address] [place] [address] Dr. Lara Askew Cholesterol [Mass/Vol] 113 mg/dL Normal <=200 [facility] Comment on above: Performed By: #### L IVER, LIPID, BMP #### [facility] [address] [address] [address] Lara Askew Cholesterol in HDL [Mass/Vol] 51 mg/dL Normal 40-60 [facility] Comment on above: Performed By: #### L IVER, LIPID, BMP #### [facility] [address] [place] [address] Dr. Lara Askew Cholesterol in LDL [Mass/Vol] 47.6 mg/dL Normal [facility] Comment on above: Performed By: #### L IVER, LIPID, BMP #### [facility] [address] [address] [address] Lara Askew Cholesterol.total/Chol esterol in HDL [Mass ratio] 2.2 {ratio} Normal [facility] Comment on above: Performed By: #### L IVER, LIPID, BMP #### [facility] [address] [address] [address] Lara Askew HDL NORMAL > or = 60 mg/dl - LO W CARDIOVASCULAR RISK <40 mg/dl - HIGH CARDIOVASCULAR RISK Normal [facility] Comment on above: Performed By: #### L IVER, LIPID, BMP #### [facility] [address] [address] [address] Lara Askew LDL CALC NORMAL SEE BELOW Normal [facility] Comment on above: Result Comment: <100 mg/dl OPTIMAL 100 - 129 mg/dl NEAR OR ABOVE OPTIMAL 130 - 159 mg/dl BORDERLINE HIGH 160 - 189 mg/dl HIGH >190 mg/dl VERY HIGH Performed By: #### L IVER, LIPID, BMP #### [facility] [address] [address] [address] Lara Askew Triglyceride [Mass/Vol] 72 mg/dL Normal <=150 [facility] Comment on above: Performed By: #### L IVER, LIPID, BMP #### [facility] [address] [address] [address] Lara Askew VLDL CALC 14.4 mg/dL Normal [facility] Comment on above: Performed By: #### L IVER, LIPID, BMP #### [facility] [address] [address] [address] Lara Askew LIVER PROFILEon 06-06-2022 Albumin [Mass/Vol] 3.0 g/dL Critically low 3.4-5.0 [facility] Comment on above: Performed By: #### L IVER, LIPID, BMP #### [facility] [address] [address] [address] Laar Askew Albumin/Globulin [Mass ratio] 1.0 {ratio} Normal [facility] Comment on above: Performed By: #### L IVER, LIPID, BMP #### [facility] [address] [address] [address] Lara Askew ALP [Catalytic activity/Vol] 93 U/L Normal 46-116 [facility] Comment on above: Performed By: #### L IVER, LIPID, BMP #### [facility] [address] [address] [address] Lara Askew ALT [Catalytic activity/Vol] 23 U/L Normal 16-63 [facility] Comment on above: Performed By: #### L IVER, LIPID, BMP #### [facility] [address] [address] [address] Lara Askew AST [Catalytic activity/Vol] 21 U/L Normal 15-37 [facility] Comment on above: Performed By: #### L IVER, LIPID, BMP #### [facility] [address] [address] [address] Lara Askew BILI, CONJUGATED 0.1 mg/dL Normal 0.0-0.2 [facility] Comment on above: Performed By: #### L IVER, LIPID, BMP #### [facility] [address] [address] [address] Lara Askew Bilirubin [Mass/Vol] 0.5 mg/dL Normal 0.2-1.0 [facility] Comment on above: Performed By: #### L IVER, LIPID, BMP #### [facility] [address] [place] [address] Dr. Lara Askew Globulin (S) [Mass/Vol] 3.1 g/dL Normal [facility] Comment on above: Performed By: #### L IVER, LIPID, BMP #### [facility] [address] [address] [address] Lara Askew Protein [Mass/Vol] 6.1 g/dL Critically low 6.4-8.2 [facility] Comment on above: Performed By: #### L IVER, LIPID, BMP #### [facility] [address] [place] [address] Dr. Lara Askew MICROALBUMIN, RAND URon 05-21 mALB 24.1 mg/L Normal <=30.0 [facility] Comment on above: Performed By: #### M ALBR #### [facility] [address] [place] [address] Dr. Lara Askew PERIPHERAL SMEARon 2 Pathologist Cyto stain Nom (Cvx/Vag) [ID] DR. ROSEMARIE DOE Normal [facility] Comment on above: Result Comment: Revi [...] 06-10-22 Performed By: #### P ERSMR #### [facility] [address] [place] [address] Dr. Lara Askew PROF CHEM 8 (BAS METB)on Anion gap [Moles/Vol] 9.4 mmol/L Normal [facility] Comment on above: Performed By: #### L IVER LIPID, BMP #### [facility] [address] [place] [address] Dr. Lara Askew Calcium [Mass/Vol] 8.7 mg/dL Normal 8.5-10.1 [facility] Comment on above: Performed By: #### L IVER LIPID, BMP #### [facility] [address] [place] [address] Dr. Lara Askew Chloride [Moles/Vol] 105 mmol/L Normal 98-107 [facility] Comment on above: Performed By: #### L IVER LIPID, BMP #### [facility] [address] [place] [address] Dr. Lara Askew CO2 [Moles/Vol] 28.6 mmol/L Normal 21.0-32.0 [facility] Comment on above: Performed By: #### L IVER, LIPID, BMP #### [facility] [address] [place] [address] Dr. Lara Askew Creatinine [Mass/Vol] 1.07 mg/dL Normal 0.70-1.30 [facility] Comment on above: Performed By: #### L IVER LIPID, BMP #### [facility] [address] [place] [address] Dr. Lara Askew EGFR-AF [place] >60 Normal >=60 [facility] Comment on above: Performed By: #### L IVER LIPID, BMP #### [facility] [address] [address] [address] Lara Askew EGFR-NON AF [place] >60 Normal >=60 [facility] Comment on above: Performed By: #### L IVER, LIPID, BMP #### [facility] [address] [address] [address] Lara Askew Glucose [Mass/Vol] 147 mg/dL Critically high 74-106 [facility] Comment on above: Performed By: #### L IVER, LIPID, BMP #### [facility] [address] [address] [address] Lara Askew Potassium [Moles/Vol] 5.0 mmol/L Normal 3.5-5.1 [facility] Comment on above: Performed By: #### L IVER, LIPID, BMP #### [facility] [address] [address] [address] Lara Askew Sodium [Moles/Vol] 138 mmol/L Normal 136-145 [facility] Comment on above: Performed By: #### L IVER, LIPID, BMP #### [facility] [address] [address] [address] Lara Askew Urea nitrogen [Mass/Vol] 22.0 mg/dL Critically high 7.0-18.0 [facility] Comment on above: Performed By: #### L IVER, LIPID, BMP #### [facility] [address] [address] [address] Lara Askew Urea nitrogen/Creatinine [Mass ratio] 20.6 mg/mg Normal [facility] Comment on above: Performed By: #### L IVER, LIPID, BMP #### [facility] [address] [place] [address] Dr. Lara Askew VITAMIN D 25 OHon 06-06-2022 VIT D 25-OH 10.6 ng/mL Normal [facility] Comment on above: Performed By: #### V ITAD, PSASC #### [facility] [address] [address] [address] Lara Askew VIT D RANGES SEE BELOW Normal [facility] Comment on above: Result Comment: <20 ng/mL Vit D deficient 20 - <30 ng/mL Vit D insufficient 30 - 100 ng/mL Vit D sufficient >100 ng/mL Potential Toxicity Performed By: #### V ITMIKAELA, PSASC #### [facility] [address] [address] [address] Lara Askew GLYCOHEMOGLOBIN A1Con 2021 ADA RECOMMENDATION SEE BELOW Normal [facility] Comment on above: Result Comment: ADA RECOMMENDED LIMIT 4.0 - 6.0 ADA THERAPEUTIC TARGET < 7.0 ACTION SUGGESTED > 7.0 Performed By: #### A 1C #### [facility] [address] [address] [address] Lara Askew Glucose [Mass/Vol] 169 mg/dL Normal [facility] Comment on above: Performed By: #### A 1C #### [facility] [address] [address] [address] Lara Askew HbA1c (Bld) [Mass fraction] 7.5 % Critically high 4.5-6.2 [facility] Comment on above: Performed By: #### A 1C #### [facility] [address] [address] [address] Lara Askew Albumin [Mass/volume] in Ser um or Plasmaon 01-01-2021 Albumin [Mass/Vol] 3.5 g/dL 3.2-5.5 [facility] Creatinine and Glomerular fi ltration rate.predicted panel (S/P/Bld)on 01-01-2021 Creatinine [Mass/Vol] 1.02 mg/dL 0.64-1.27 [facility] Estimated glomerular filtrat ion rate (GFR) non- Americanon 01-01-2021 GFR/1.73 sq M.predicted among non-blacks MDRD (S/P/Bld) [Vol rate/Area] > 60 mL/Min [facility] Globulin Calc (S) [Mass/Vol] on 01-01-2021 Globulin (S) [Mass/Vol] 2.0 g/dL [facility] No Panel Informationon 01-01 Estimated GFR () > 60 mL/Min [facility] Comment on above: GFR estimated refere nce range: According to KDOQI guidelines, <60 ml/min/1.73m2 is sufficient to diagnose a patient with chronic kidney disease. Pharmacy Creatinine Clearance (Chem N/A [facility] Protein [Mass/volume] in Ser um or Plasmaon 01-01-2021 Protein [Mass/Vol] 5.5 g/dL 6.1-7.9 [facility] Serum or plasma alanine chambers otransferase measurement without P-5'-P (enzymatic activion 01-01-2021 ALT No additional P-5'-P [Catalytic activity/Vol] 28 U/L 10-60 [facility] Serum or plasma albumin/glob ulin mass ratioon 01-01-2021 Albumin/Globulin [Mass ratio] 1.8 {ratio} [facility] Serum or plasma alkaline clarisa sphatase measurement (enzymatic activity/volume)on 01-01-2021 ALP [Catalytic activity/Vol] 78 U/L 32-92 [facility] Serum or plasma aspartate am inotransferase measurement (enzymatic activity/volume)on 01-01-2021 AST [Catalytic activity/Vol] 21 U/L 10-42 [facility] Serum or plasma calcium elham urement (mass/volume)on 01-01-2021 Calcium [Mass/Vol] 9.6 mg/dL 8.2-10.2 [facility] Serum or plasma chloride daria surement (moles/volume)on 01-01-2021 Chloride [Moles/Vol] 103 mmol/L 95-114 [facility] Serum or plasma glucose elham urement (mass/volume)on 01-01-2021 Glucose [Mass/Vol] 59 mg/dL 70-100 [facility] Comment on above: ADA recommended refe rence rangeRandom Glucose Reference Range is dependent on time and content of last meal. Glucose of more than 200 mg/dL in a nonstressed, ambulatory subject supports the diagnosis of Diabetes Mellitus. Serum or plasma potassium me asurement (moles/volume)on 01-01-2021 Potassium [Moles/Vol] 4.8 mmol/L 3.5-5.1 [facility] Serum or plasma sodium measu rement (moles/volume)on 01-01-2021 Sodium [Moles/Vol] 143 mmol/L 136-146 [facility] Serum or plasma total biliru bin measurement (mass/volume)on 01-01-2021 Bilirubin [Mass/Vol] 0.9 mg/dL 0.3-1.2 [facility] Serum or plasma total carbon dioxide measurement (moles/volume)on 01-01-2021 CO2 [Moles/Vol] 28.5 mmol/L 22.0-30.0 [facility] Serum or plasma urea nitroge n measurement (mass/volume)on 01-01-2021 Urea nitrogen [Mass/Vol] 14 mg/dL 04-12 [facility] Vital Signs Date Time Vital Sign Value Performing Clinician Augustus plummer 05-12-2024 09:31-0400 Body height 172.7 cm Cruzito Mcgrath MD Work Phone: [facility] 05-12-2024 09:31-0400 Body mass index (BMI) [Ratio] 24.94 kg/m2 Cruzito Mcgrath MD Work Phone: [facility] 05-12-2024 09:31-0400 Body temperature 97.81 [degF] Cruzito Mcgrath MD Work Phone: [facility] 05-12-2024 09:31-0400 Body weight 74.39 kg Cruzito Mcgrath MD Work Phone: [facility] 05-12-2024 09:31-0400 Diastolic blood pressure 36 mm[Hg] Cruzito Mcgrath MD Work Phone: [facility] 05-12-2024 09:31-0400 Heart rate 41 /min Cruzito Mcgrath MD Work Phone: [facility] 05-12-2024 09:31-0400 Respiratory rate 18 /min Cruzito Mcgrath MD Work Phone: [facility] 05-12-2024 09:31-0400 SaO2% (BldA) [Mass fraction] 93 % Cruzito Mcgrath MD Work Phone: [facility] 05-12-2024 09:31-0400 Systolic blood pressure 120 mm[Hg] Cruzito Mcgrath MD Work Phone: [facility] 04-14-2024 10:130400 Body height 172.72 cm MD Cruzito Mcgrath Work Phone: [facility] 04-14-2024 10:13-0400 Body mass index (BMI) [Ratio] 24.9 kg/m2 MD Cruzito Mcgrath Work Phone: [facility] 04-14-2024 10:13-0400 Body temperature 97.9 [degF] MD Cruzito Mcgrath Work Phone: [facility] 04-14-2024 10:130400 Body weight 74.38 kg MD Cruzito Mcgrath Work Phone: [facility] 04-14-2024 10:13-0400 Diastolic blood pressure 50 mm[Hg] MD Cruzito Mcgrath Work Phone: [facility] 04-14-2024 10:13-0400 Heart rate 39 /min MD Cruzito Mcgrath Work Phone: [facility] 04-14-2024 10:130400 SaO2% (BldA) [Mass fraction] 96 % MD Cruzito Mcgrath Work Phone: [facility] 04-14-2024 10:13-0400 Systolic blood pressure 160 mm[Hg] MD Cruzito Mcgrath Work Phone: [facility] 04-13-2024 09:32-0400 Body height 172.72 cm MD Cruzito Mcgrath Work Phone: [facility] 04-13-2024 09:32-0400 Body mass index (BMI) [Ratio] 25 kg/m2 MD Cruzito Mcgrath Work Phone: [facility] 04-13-2024 09:32-0400 Body weight 74.55 kg MD Cruzito Mcgrath Work Phone: [facility] 03-18-2024 09:44-0400 Body height 172.72 cm MD Cruzito Mcgrath Work Phone: [facility] 03-18-2024 09:44-0400 Body mass index (BMI) [Ratio] 24.5 kg/m2 MD Cruzito Mcgrath Work Phone: [facility] 03-18-2024 09:44-0400 Body temperature 97.8 [degF] MD Cruzito Mcgrath Work Phone: [facility] 03-18-2024 09:44-0400 Body weight 73.02 kg MD Cruzito Mcgrath Work Phone: [facility] 03-18-2024 09:44-0400 Diastolic blood pressure 84 mm[Hg] MD Cruzito Mcgrath Work Phone: [facility] 03-18-2024 09:44-0400 Heart rate 68 /min MD Cruzito Mcgrath Work Phone: [facility] 03-18-2024 09:44-0400 Respiratory rate 16 /min MD Cruzito Mcgrath Work Phone: [facility] 03-18-2024 09:44-0400 SaO2% (BldA) [Mass fraction] 98 % MD Cruzito Mcgrath Work Phone: [facility] 03-18-2024 09:44-0400 Systolic blood pressure 126 mm[Hg] MD Cruzito Mcgrath Work Phone: [facility] 01-16-2024 14:09-0400 Body mass index (BMI) [Ratio] 24.89 kg/m2 Faraz Beckham MD Work Phone: [facility] 01-16-2024 14:09-0400 Body temperature 97.2 [degF] Faraz Beckham MD Work Phone: [facility] 01-16-2024 14:09-0400 Body weight 73.21 kg Faraz Beckham MD Work Phone: [facility] 01-16-2024 14:09-0400 Diastolic blood pressure 35 mm[Hg] Faraz Beckham MD Work Phone: [facility] 01-16-2024 14:09-0400 Heart rate 45 /min Faraz Beckham MD Work Phone: [facility] 01-16-2024 14:09-0400 Respiratory rate 18 /min Faraz Beckham MD Work Phone: [facility] 01-16-2024 14:09-0400 SaO2% (BldA) [Mass fraction] 98 % Faraz Beckham MD Work Phone: [facility] 01-16-2024 14:09-0400 Systolic blood pressure 132 mm[Hg] Faraz Beckham MD Work Phone: [facility] 09-03-2023 12:11-0500 Body height 172.7 cm Geneva Dechristophe r [employer] [facility] 09-03-2023 12:11-0500 Body mass index (BMI) [Ratio] 26 kg/m2 Geneva Dechristopher [employer]OOK SOLICITOR-[employer] CAREGIVER [facility] Phone[facility] 09-03-2023 12:11-0500 Body weight 77.56 kg Geneva Dechristophe r BOOK SOLICITOR-[employer] CAREGIVER Work Phone[facility] 09-03-2023 12:11-0500 Diastolic blood pressure 58 mm[Hg] Geneva Dechristopher BOOK SOLICITOR-[employer] CAREGIVER Work Phone: [employer] 09-03-2023 12:11-0500 Heart rate 42 /min Geneva Dechristophe r BOOK SOLICITOR-[employer] CAREGIVER Work Phone[facility] 09-03-2023 12:11-0500 SaO2% (BldA) [Mass fraction] 98 % Geneva Dechristopher BOOK SOLICITOR-PET CAREGIVER Work Phone: [facility] 09-03-2023 12:11-0500 Systolic blood pressure 130 mm[Hg] [place] VARMAVIDHYA Work Phone: [facility] 08-27-2023 14:07-0500 Body height 172.7 cm Debbie Hirsch MD Work Phone: [facility] 08-27-2023 14:07-0500 Body mass index (BMI) [Ratio] 25.7 kg/m2 Debbie Hirsch MD Work Phone: [facility] 08-27-2023 14:07-0500 Body weight 76.66 kg Debbie Hirsch MD Work Phone: [facility] 08-27-2023 14:07-0500 Diastolic blood pressure 50 mm[Hg] Debbie Hirsch MD Work Phone: [facility] 08-27-2023 14:07-0500 Heart rate 47 /min Debbie Hirsch MD Work Phone: [facility] 08-27-2023 14:07-0500 SaO2% (BldA) [Mass fraction] 98 % Debbie Hirsch MD Work Phone: [facility] 08-27-2023 14:07-0500 Systolic blood pressure 132 mm[Hg] Debbie Hirsch MD Work Phone: [facility] 12-27-2022 13:34-0400 Body height 171.5 cm Faraz Beckham MD Work Phone: [facility] 12-27-2022 13:34-0400 Body temperature 97.59 [degF] Faraz Beckham MD Work Phone: [facility] 12-27-2022 13:34-0400 Body weight 77.2 kg Faraz Beckham MD Work Phone: [facility] 12-27-2022 13:34-0400 Diastolic blood pressure 56 mm[Hg] Faraz Beckham MD Work Phone: [facility] 12-27-2022 13:34-0400 Heart rate 45 /min Faraz Beckham MD Work Phone: [facility] 12-27-2022 13:34-0400 Respiratory rate 16 /min Faraz Beckham MD Work Phone: [facility] 12-27-2022 13:34-0400 SaO2% (BldA) [Mass fraction] 98 % Faraz Beckham MD Work Phone: [facility] 12-27-2022 13:34-0400 Systolic blood pressure 146 mm[Hg] Faraz Beckham MD Work Phone: [facility] 06-21-2022 14:44-0500 Body height 172.7 cm Faraz Beckham MD Work Phone: [facility] 06-21-2022 14:44-0500 Body temperature 97.59 [degF] Faraz Beckham MD Work Phone: [facility] 06-21-2022 14:44-0500 Body weight 77.02 kg Faraz Beckham MD Work Phone: [facility] 06-21-2022 14:44-0500 Diastolic blood pressure 48 mm[Hg] Faraz Beckham MD Work Phone: [facility] 06-21-2022 14:44-0500 Heart rate 40 /min Faraz Beckham MD Work Phone: [facility] 06-21-2022 14:44-0500 Respiratory rate 16 /min Faraz Beckham MD Work Phone: [facility] 06-21-2022 14:44-0500 SaO2% (BldA) [Mass fraction] 99 % Faraz Beckham MD Work Phone: [facility] 06-21-2022 14:44-0500 Systolic blood pressure 179 mm[Hg] Faraz Beckhma MD Work Phone: [facility] Encounters Encounter Date Encounter Type Care Provider Facility Start: 06-08-2024 End: 06-08-2024 Clinisync Result Encounter Generic External Data Provider [facility] External Department Unsolicited Start: 06-08-2024 End: 06-08-2024 Clinisync Result Encounter Generic External Data Provider [facility] External Department Unsolicited Start: 05-20-2024 End: 05-20-2024 Telephone encounter [facility] Start: 05-12-2024 End: 05-12-2024 Bamboo flowsheet Cruzito Mcgrath MD Work Phone: [facility] Start: 05-12-2024 End: 05-12-2024 Bamboo flowsheet Cruzito Mcgrath MD Work Phone: [facility] Start: 05-12-2024 End: 05-12-2024 Transitional care manage srvc 14 day discharge Cruzito Mcgrath MD Work Phone: [facility] Comment on above: Type 2 diabetes alpesh itus with hyperglycemia, with long-term current use of insulin ([facility]) (Primary Dx); Benign essential HTN ([facility]); Chronic heart failure with preserved ejection fraction (HFpEF) ([facility]); Arteriosclerosis of coronary artery ([facility]); Benign essential tremor; PAD (peripheral artery disease) ([facility]); CKD stage 3b, GFR 30-44 ml/min ([facility]); 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[facility]); Type 2 diabetes mellitus 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 ([facility]) Start: 05-12-2024 End: 05-12-2024 ambulatory CRUZITO MCGRATH Not Available Start: 05-11-2024 End: 05-11-2024 ambulatory FARTUN [facility] Start: 05-05-2024 End: 05-05-2024 Clinisync Result Encounter Generic External Data Provider [facility] External Department Unsolicited Start: 05-05-2024 End: 05-05-2024 Clinisync Result Encounter Generic External Data Provider [facility] External Department Unsolicited Start: 05-03-2024 End: 05-03-2024 ambulatory ADAMARIS BARBER [facility] Start: 04-29-2024 End: 04-29-2024 Telephone encounter Carlotta Bahena [facility] Comment on above: abnormal rhythm Start: 04-28-2024 End: 04-28-2024 Telephone encounter Marisol Berry [facility] Comment on above: Hypertension continuation of orde rs (Contract: [email or web address] [id number] [phone] [facility] Sepideh re continuation of orders; [id number]) Start: 04-27-2024 End: 04-29-2024 Evaluation and management of inpatient MATILDE M [facility] Start: 04-26-2024 End: 04-26-2024 Telephone encounter Shahrzad Manley [facility] Comment on above: new consult (Elev. t rops) Start: 04-26-2024 End: 04-27-2024 Evaluation and management of inpatient CRUZITO MCGRATH [facility] Start: 04-20-2024 End: 04-20-2024 Patient encounter procedure MD Cruzito Mcgrath Work Phone: [facility] Work Phone: Start: 04-20-2024 End: 04-20-2024 ambulatory MD Cruzito Mcgrath Work Phone: [facility] Work Phone: Start: 04-14-2024 End: 04-14-2024 Patient encounter procedure MD Cruzito Mcgrath Work Phone: [facility] Work Phone: Start: 04-13-2024 End: 04-13-2024 Patient encounter procedure MD Cruzito Mcgrath Work Phone: [facility] Work Phone: Start: 04-12-2024 End: 04-12-2024 ambulatory AB [facility] Start: 04-07-2024 End: 04-07-2024 ambulatory MD Cruzito Mcgrath Work Phone: [facility] Work Phone: Start: 04-07-2024 End: 04-07-2024 Patient encounter procedure MD Cruzito Mcgrath Work Phone: [facility]Ul[facility] Work Phone: Start: 03-18-2024 End: 03-18-2024 Patient encounter procedure MD Cruzito Mcgrath Work Phone: [facility] Work Phone: Start: 03-09-2024 End: 03-09-2024 ambulatory JEROMY MEJIA Not Available Start: 03-05-2024 End: 03-06-2024 Emergency department patient visit DANIEL MISTRY [facility] Start: 03-05-2024 End: 03-05-2024 Emergency department patient visit CRUZITO MCGRATH [facility] Start: 02-26-2024 End: 02-26-2024 ambulatory CRUZITO MCGRATH Not Available Start: 02-24-2024 End: 02-24-2024 ambulatory JUDAH COSTELLO [facility] Start: 01-16-2024 End: 01-16-2024 Office outpatient visit 25 minutes Faraz Beckham MD Work Phone: Hematology/Oncology Comment on above: CLL (chronic lymphoc ytic leukemia) (HCC) (Primary Dx); Large granular lymphocytosis; Stage 3 chronic kidney disease, unspecified whether stage 3a or 3b CKD (HCC) Start: 01-16-2024 End: 01-16-2024 ambulatory FARAZ BECKHAM Facility:[facility] Start: 01-09-2024 End: 01-09-2024 ambulatory CRUZITO MCGRATH Not Available Start: 01-08-2024 End: 01-08-2024 ambulatory BRAD WONG Not Available Start: 12-27-2023 End: 12-27-2023 ambulatory Arminda Valverde [facility] Work Phone: Start: 12-27-2023 End: 12-27-2023 Departed Referred DO Arminda Valverde Work Phone: [facility] Start: 12-18-2023 End: 12-18-2023 ambulatory CRUZITO MCGRATH Not Available Start: 10-24-2023 End: 10-24-2023 ambulatory CRUZITO MCGRATH Not Available Start: 09-03-2023 End: 09-03-2023 Office outpatient visit 15 minutes Geneva Sanders BOOK SOLICITOR-PET CAREGIVER Work Phone: [facility] Comment on above: Coronary artery dise ase involving onond[place] coronary artery of on[place] heart without angina pectoris (Primary Dx); Sinus pause; Hypertension, unspecified type; NSTEMI (non-ST elevated myocardial infarction) ([facility]) Start: 09-03-2023 End: 09-03-2023 [facility]ulatory [facility] Start: 08-27-2023 End: 08-27-2023 Office outpatient visit 15 minutes Debbie Hirsch MD Work Phone: [facility] Comment on above: History of coronary angioplasty with insertion of stent (Primary Dx); Pulmonary hypertension ([facility]); Primary hypertension; Hx of hyperlipidemia; Sinus pause Start: 08-27-2023 End: 08-27-2023 ambulatory [facility] L[facility] Start: 08-26-2023 Telephone encounter Gabbie Rebolledo CMA [facility] Start: 08-25-2023 End: 08-25-2023 ambulatory [facility] Start: 08-21-2023 End: 08-21-2023 Patient encounter procedure Patria Bhat BOOK SOLICITOR-PET CAREGIVER Work Phone: [facility] Start: 08-21-2023 End: 08-21-2023 ambulatory [facility] Start: 08-20-2023 End: 08-20-2023 Patient encounter procedure Patria Bhat BOOK SOLICITOR-PET CAREGIVER Work Phone: [facility] Start: 08-20-2023 End: 08-20-2023 [facility] Start: 08-18-2023 End: 08-18-2023 [facility] Start: 08-14-2023 End: 08-14-2023 Patient encounter procedure Patria Bhat BOOK SOLICITOR-PET CAREGIVER Work Phone: [facility] Start: 08-14-2023 End: 08-14-2023 [facility] Start: 08-13-2023 End: 08-13-2023 [facility] Start: 08-11-2023 End: 08-11-2023 Patient encounter procedure Patria Bhat BOOK SOLICITOR-PET CAREGIVER Work Phone: [facility] Start: 08-11-2023 End: 08-11-2023 [facility] Start: 08-07-2023 End: 08-07-2023 Patient encounter procedure Patria Bhat BOOK SOLICITOR-PET CAREGIVER Work Phone: [facility] Start: 08-07-2023 End: 08-07-2023 [facility] Start: 08-06-2023 End: 08-06-2023 [facility] Start: 08-05-2023 End: 08-05-2023 ambulatory WAYNE DONALD [facility] Start: 08-04-2023 Documentation procedure Wayne Donald MD Work Phone: [facility] [employer] Machine Operator Sign In Start: 08-04-2023 End: 08-04-2023 Patient encounter procedure Patria Bhat BOOK SOLICITOR-PET CAREGIVER Work Phone: [facility] Start: 08-04-2023 End: 08-04-2023 ambulatory ETNA Coral [facility] Start: 07-31-2023 End: 07-31-2023 ambulatory [facility] Start: 07-30-2023 End: 08-21-2023 ambulatory [facility] Start: 07-28-2023 End: 07-28-2023 ambulatory ETNA R [facility] Start: 07-24-2023 End: 07-24-2023 Patient encounter procedure Patria Bhat BOOK SOLICITOR-PET CAREGIVER Work Phone: [facility] Start: 07-24-2023 End: 07-24-2023 [facility] Start: 07-23-2023 End: 07-23-2023 [facility] Start: 07-23-2023 End: 07-23-2023 Patient encounter procedure Patria Bhat BOOK SOLICITOR-PET CAREGIVER Work Phone: [facility] Start: 07-23-2023 End: 07-23-2023 [facility] Start: 07-22-2023 End: 07-22-2023 ambulatory CRUZITO CHATMANLÓPEZCoral Not Available Start: 07-17-2023 End: 07-17-2023 Patient encounter procedure Patria Bhat BOOK SOLICITOR-PET CAREGIVER Work Phone: [facility] Comment on above: Arrived Start: 07-17-2023 End: 07-17-2023 ambulatory [facility] Start: 07-16-2023 End: 07-16-2023 ambulatory CRUZITO NICHOLSR Facility[facility] Start: 07-16-2023 End: 07-21-2023 ambulatory [facility] Start: 07-10-2023 End: 07-10-2023 ambulatory [facility] Start: 07-09-2023 End: 07-09-2023 ambulatory [facility] Start: 07-07-2023 End: 07-07-2023 ambulatory [facility] Start: 07-03-2023 End: 07-21-2023 ambulatory [facility] Start: 07-01-2023 End: 07-01-2023 ambulatory EMELY CHRISTIAN Not Available Start: 12-27-2022 End: 12-27-2022 Office outpatient visit 15 minutes Faraz Beckham MD Work Phone: Hematology/Oncology Comment on above: CLL (chronic lymphoc ytic leukemia) (HCC) (Primary Dx); Large granular lymphocytosis; Stage 3 chronic kidney disease, unspecified whether stage 3a or 3b CKD (HCC); Type 2 diabetes mellitus 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, unspecified whether shelter insulin use (HCC) Start: 06-27-2022 End: 06-28-2022 [...] procedure Cruzito Mcgrath Work Phone: -Lab Main Chambers Procedures Date Procedure Procedure Detail Performing Clinician Start: 06-08-2024 ALL BASIC METABOLIC PANEL Generic External Data Provider Start: 05-05-2024 ALL LIPID PROFILE (FASTING) Generic External Data Provider Start: 04-27-2024 Adult depression scr eening assessment [...] Performed By: #### V ITAD, PSASC #### [facility] [address] [place] [address] Dr. Lara Askew Start: 10-30-2016 Microalbumin [Mass/v olume] in Urine by Test strip [facility] 1 History of placement of stent for coronary artery disease History of coronary angioplasty with insertion of stent Debbie Hirsch MD Work Phone: Plan of Treatment Date Care Activity Detail Author Start: 12-27-2027 Screening for malignant neoplasm of colon Colonoscopy [facility] Start: 10-19-2025 Glaucoma screening Diabetes: Retinopathy Screening [facility] Start: 06-21-2025 DIABETES SCREEN DIABETES SCREEN [facility] Start: 05-12-2025 Medicare Annual Wellness (AWV) Medicare Annual Wellness (AWV) [facility] Start: 04-29-2025 Adult BMI Screening Adult BMI Screening [facility] Start: 04-28-2025 Adult BMI Screening Adult BMI Screening [facility] Start: 04-27-2025 Adult BMI Screening Adult BMI Screening [facility] Start: 04-27-2025 Depression Screening Depression Screening [facility] Start: 04-27-2025 Tobacco Screening Tobacco Screening [facility] Start: 04-26-2025 Adult BMI Screening Adult BMI Screening [facility] Start: 04-26-2025 Tobacco Screening Tobacco Screening [facility] Start: 01-15-2025 Creatinine measurement Serum Creatinine [facility] Start: 01-06-2025 Urine screening for protein Diabetes: Urine Protein Screening [facility] Start: 11-10-2024 End: 11-10-2024 Patient encounter procedure 11/10/2024 10:30 AM EDT Office Visit [facility] [address] [place] [address] Cruzito Mcgrath MD [address] [place] [id number] [facility] Start: 09-03-2024 Adult BMI Screening Adult BMI Screening [facility] Start: 09-03-2024 Tobacco Screening Tobacco Screening [facility] Start: 08-27-2024 Adult BMI Screening Adult BMI Screening [facility] Start: 08-27-2024 Tobacco Screening Tobacco Screening [facility] Start: 07-17-2024 End: 01-15-2025 CBC W Auto Differential panel - Blood COMPLETE BLOOD COUNT AND DIFFERENTIAL Lab Routine CLL (chronic lymphocytic leukemia) (HCC) Expected: 07/17/2024 (Approximate), Expires: 01/15/2025 [facility] Comment on above: Expected: 07/17/2024 (Approximate), Expi res: 01/15/2025 Start: 07-17-2024 End: 01-15-2025 Comprehensive metabolic 2000 panel - Serum or Plasma COMPREHENSIVE METABOLIC PANEL Lab Routine CLL (chronic lymphocytic leukemia) (HCC) Expected: 07/17/2024 (Approximate), Expires: 01/15/2025 [facility] Comment on above: Expected: 07/17/2024 (Approximate), Expi res: 01/15/2025 Start: 07-17-2024 End: 01-15-2025 Lactate dehydrogenase [Enzymatic activity/volume] in Serum or Plasma LACTATE DEHYDROGENASE Lab Routine CLL (chronic lymphocytic leukemia) (HCC) Expected: 07/17/2024 (Approximate), Expires: 01/15/2025 [facility] Work Phone: Comment on above: Expected: 07/17/2024 (Approximate), Expi res: 01/15/2025 Start: 07-17-2024 End: 10-16-2024 Urate [Mass/volume] in Serum or Plasma URIC ACID Lab Routine CLL (chronic lymphocytic leukemia) (HCC) Expected: 07/17/2024 (Approximate), Expires: 10/16/2024 [facility] Comment on above: Expected: 07/17/2024 (Approximate), Expi res: 10/16/2024 Start: 07-16-2024 Complete blood count Hemoglobin/Hematocrit [facility] Start: 07-09-2024 End: 07-09-2024 Follow-up encounter 07/09/2024 2:15 PM EST Visit (SP) Office Hematology/Oncology [address] [place] [address] Faraz Beckham MD [address] [place] [address] 6 month follow up lab Hematology/Oncology Comment on above: 6 month follow up lab Start: 07-09-2024 End: 07-09-2024 Patient encounter procedure 07/09/2024 2:00 PM EST Office Visit [facility] [address] [place] [address] 6 month follow up lab [facility] Comment on above: 6 month follow up lab Start: 07-08-2024 Hemoglobin A1c measurement Diabetes: Hemoglobin A1C [facility] Start: 07-08-2024 End: 07-08-2024 Patient encounter procedure 07/08/2024 1:00 PM EST Office Visit [facility] [address] [place] [address] Brad Wong MD [address] [place] [address] [facility] Start: 05-12-2024 End: 05-12-2025 Hemoglobin A1c/Hemoglobin.total in Blood Hemoglobin A1c Lab Routine Type 2 diabetes mellitus with hyperglycemia, with long-term current use of insulin ([facility]) Expected: 05/12/2024 (Approximate), Expires: 05/12/2025 [facility] Work Phone: Comment on above: Expected: 05/12/2024 (Approximate), Expi res: 05/12/2025 Start: 05-12-2024 End: 05-12-2024 Patient encounter procedure [facility] Comment on above: Arrived Start: 05-01-2024 Adult BMI Screening Adult BMI Screening [facility] Start: 05-01-2024 Tobacco Screening Tobacco Screening [facility] Start: 04-08-2024 Hemoglobin A1c measurement Diabetes: Hemoglobin A1C [facility] Start: 04-07-2024 Pulse volume recorder plethysmography [facility] Start: 04-05-2024 Depression Screening Depression Screening [facility] Start: 03-21-2024 COVID-19 Vaccine ( season) COVID-19 Vaccine ( season) [facility] Start: 03-21-2024 COVID-19 Vaccine ( season) COVID-19 Vaccine ( season) [facility] Start: 03-21-2024 Influenza vaccination [facility] Start: 03-15-2024 End: 03-15-2024 Patient encounter procedure [facility] Start: 02-24-2024 End: 02-24-2024 Patient encounter procedure [facility] Start: 01-21-2024 Hemoglobin A1c measurement HbA1C [facility] Start: 12-28-2023 HEMOGLOBIN/HEMATOCRIT HEMOGLOBIN/HEMATOCRIT [facility] Start: 12-28-2023 SERUM CREATININE SERUM CREATININE [facility] Start: 12-27-2023 Colonoscopy COLONOSCOPY [facility] Start: 12-27-2023 COLORECTAL CANCER SCREENING COLORECTAL CANCER SCREENING [facility] Start: 10-28-2023 End: 10-28-2023 Patient encounter procedure 10/28/2023 11:00 AM EDT Office Visit [facility] [address] [place] [address] Gage Norton MD [address] [place] [address] [facility] Start: 09-27-2023 Covid-19 Vaccine () Covid-19 Vaccine () [facility] Start: 09-03-2023 End: 09-03-2023 Patient encounter procedure 09/03/2023 1:00 PM EST Office Visit [facility] [address] [place] [phone] Geneva Sanders BOOK SOLICITOR-PET CAREGIVER [address] [place] [address] [facility] Start: 08-27-2023 End: 08-27-2023 Patient encounter procedure 08/27/2023 2:00 PM EST Office Visit [facility] [address] [place] [address] Debbie Hirsch MD [address] [place] [address] [facility] Start: 08-21-2023 End: 08-21-2023 Patient encounter procedure 08/21/2023 1:00 PM EST Office Visit [facility] [address] [place] [address] Patria Bhat, BOOK SOLICITOR-PET CAREGIVER [address] [place] [address] [facility] Start: 08-20-2023 End: 08-20-2023 Patient encounter procedure 08/20/2023 1:00 PM EST Office Visit [facility] [address] [place] [address] Patria Bhat APRN-PET CAREGIVER [address] [place] [address] [facility] Start: 08-18-2023 End: 08-18-2023 Patient encounter procedure 08/18/2023 1:00 PM EST Office Visit [facility] [address] [place] [address] Patria Bhat APRN-PET CAREGIVER [address] [place] [address] [facility] Start: 08-14-2023 End: 08-14-2023 Patient encounter procedure 08/14/2023 1:00 PM EST Office Visit [facility] [address] [place] [address] Patria Bhat APRN-PET CAREGIVER [address] [place] [address] [facility] Start: 08-13-2023 End: 08-13-2023 Patient encounter procedure 08/13/2023 1:00 PM EST Office Visit [facility] [address] [facility] [place] [address] Patria Bhat APRN-PET CAREGIVER [address] [place] [address] [facility] Start: 08-11-2023 End: 08-11-2023 Patient encounter procedure 08/11/2023 1:00 PM EST Office Visit [facility] [address] [place] [address] Patria Bhat APRN-PET CAREGIVER [address] [place] [address] [facility] Start: 08-07-2023 End: 08-07-2023 Patient encounter procedure 08/07/2023 1:00 PM EST Office Visit [facility] [address] [place] [address] Patria Bhat APRN-PET CAREGIVER [address] [place] [address] [facility] Start: 08-06-2023 End: 08-06-2023 Patient encounter procedure 08/06/2023 1:00 PM EST Office Visit [facility] [address] [place] [address] Patria Bhat APRN-PET CAREGIVER [address] [place] [address] [facility] Start: 08-05-2023 End: 08-05-2023 Patient encounter procedure 08/05/2023 9:00 AM EST Appointment [facility] [address] [place] [address] Wayne Donald MD [address] [place] [address] [facility] Start: 08-04-2023 End: 08-04-2024 Holter monitor study Holter monitor 24-48 hour Cardiac Services Routine Bradycardia Expected: 08/04/2023, Expires: 08/04/2024 [facility] Work Phone: Comment on above: Expected: 08/04/2023, Expires: Start: 08-04-2023 End: 08-04-2023 Patient encounter procedure 08/04/2023 1:00 PM EST Office Visit [facility] [address] [place] [address] Patria Bhat APRN-PET CAREGIVER [address] [place] [address] [facility] Start: 07-31-2023 End: 07-31-2023 Patient encounter procedure 07/31/2023 1:00 PM EST Office Visit [facility] [address] [place] [address] Patria Bhat APRN-PET CAREGIVER [address] [place] [address] [facility] Start: 07-30-2023 End: 07-30-2023 Patient encounter procedure 07/30/2023 1:00 PM EST Office Visit [facility] [address] [place] [address] Patria Bhat APRN-PET CAREGIVER [address] [place] [address] [facility] Start: 07-28-2023 End: 07-28-2023 Patient encounter procedure 07/28/2023 1:00 PM EST Office Visit [facility] [address] [place] [address] Patria Bhat APRN-PET CAREGIVER [address] [place] [address] [facility] Start: 07-24-2023 End: 07-24-2023 Patient encounter procedure 07/24/2023 1:00 PM EST Office Visit [facility] [address] [place] [address] Patria Bhat APRN-PET CAREGIVER [address] [place] [address] [facility] Start: 07-23-2023 End: 07-23-2023 Patient encounter procedure 07/23/2023 1:00 PM EST Office Visit [facility] [address] [place] [address] Patria Bhat, SATURNINO-PET CAREGIVER [address] [place] [address] [facility] Start: 07-21-2023 Advance Directive Discussion Advance Directive Discussion [facility] Start: 07-21-2023 Behavioral Health Screening Behavioral Health Screening [facility] Start: 06-28-2023 End: 12-28-2023 CBC W Auto Differential panel - Blood CBC + DIFF Lab Routine CLL (chronic lymphocytic leukemia) (HCC) Large granular lymphocytosis Expected: 06/28/2023 (Approximate), Expires: 12/28/2023 [facility] Work Phone: Comment on above: Expected: 06/28/2023 (Approximate), Expi res: 12/28/2023 Start: 06-28-2023 End: 12-28-2023 Comprehensive metabolic 2000 panel - Serum or Plasma COMP METABOLIC PANEL Lab Routine CLL (chronic lymphocytic leukemia) (HCC) Large granular lymphocytosis Expected: 06/28/2023 (Approximate), Expires: 12/28/2023 [facility] Work Phone: Comment on above: Expected: 06/28/2023 (Approximate), Expi res: 12/28/2023 Start: 06-28-2023 End: 12-28-2023 Lactate dehydrogenase [Enzymatic activity/volume] in Serum or Plasma LD LACTATE DEHYDRO Lab Routine CLL (chronic lymphocytic leukemia) (HCC) Large granular lymphocytosis Expected: 06/28/2023 (Approximate), Expires: 12/28/2023 [facility] Work Phone: Comment on above: Expected: 06/28/2023 (Approximate), Expi res: 12/28/2023 Start: 06-28-2023 End: 08-28-2023 Urate [Mass/volume] in Serum or Plasma URIC ACID BLOOD Lab Routine CLL (chronic lymphocytic leukemia) (HCC) Large granular lymphocytosis Expected: 06/28/2023 (Approximate), Expires: 08/28/2023 [facility] Work Phone: Comment on above: Expected: 06/28/2023 (Approximate), Expi res: 08/28/2023 Start: 05-22-2023 Hemoglobin A1c/Hemoglobin.total in Blood HBA1C [facility] Start: 03-21-2023 COVID-19 Vaccine ( season) COVID-19 Vaccine ( season) [facility] Start: 03-21-2023 Influenza vaccination Influenza Vaccine [facility] Start: 07-21-2022 ADVANCE DIRECTIVE DISCUSSION ADVANCE DIRECTIVE DISCUSSION [facility] Start: 07-21-2022 DEPRESSION ASSESSMENT DEPRESSION ASSESSMENT [facility] Start: 06-21-2022 End: 08-21-2022 FISH FOR CLL [facility] Work Phone: Comment on above: Expected: 06/21/2022, Expires: 3 Start: 06-21-2022 End: 08-21-2022 PROTEIN ELECTROPHORESIS SERUM W/INTERP [facility] Work Phone: Comment on above: Expected: 06/21/2022, Expires: 3 Start: 03-21-2022 Influenza vaccination INFLUENZA (#1) [facility] Start: 07-21-2021 ADVANCE DIRECTIVE DISCUSSION ADVANCE DIRECTIVE DISCUSSION [facility] Start: 07-21-2021 DEPRESSION ASSESSMENT DEPRESSION ASSESSMENT [facility] Start: 06-24-2019 PNEUMOCOCCAL: 65+ (2 - PPSV23 if available, else PCV20) PNEUMOCOCCAL: 65+ (2 - PPSV23 if available, else PCV20) [facility] Start: 08-19-2018 Pneumococcal Vaccine: 65+ (2 of 2 - PPSV23 or PCV20) Pneumococcal Vaccine: 65+ (2 of 2 - PPSV23 or PCV20) [facility] Start: 08-19-2018 Pneumococcal Vaccine: 65+ Years (3 of 3 - PPSV23 or PCV20) Pneumococcal Vaccine: 65+ Years (3 of 3 - PPSV23 or PCV20) [facility] Start: 08-19-2018 PNEUMOCOCCAL: 65+ (2 - PPSV23 if available, else PCV20) PNEUMOCOCCAL: 65+ (2 - PPSV23 if available, else PCV20) [facility] Start: 10-30-2017 Urine screening for protein Urine Microalbumin [facility] Start: 2012 Abdominal aortic aneurysm screening Abdominal Aortic Aneurysm (AAA) Screen [facility] Start: 2012 Fall Risk Screening Fall Risk Screening [facility] Start: 2012 PNEUMOCOCCAL: 65+ (1 - PCV) PNEUMOCOCCAL: 65+ (1 - PCV) [facility] Start: 2007 RSV Vaccine (1 - 1-dose 60+ series) RSV Vaccine (1 - 1-dose 60+ series) [facility] Start: 1997 Administration of varicella zoster vaccine Zoster (Shingles) Vaccine (1 of 2) [facility] Start: 1997 SHINGRIX VACCINE (1 of 2) SHINGRIX VACCINE (1 of 2) [facility] Start: 1992 COLOGUARD (FIT-DNA) COLOGUARD (FIT-DNA) [facility] Start: 1992 Colonoscopy COLONOSCOPY [facility] Start: 1992 COLORECTAL CANCER SCREENING COLORECTAL CANCER SCREENING [facility] Start: [address] COLONOGRAPHY [facility] Start: 1992 DIABETES SCREEN DIABETES SCREEN [facility] Start: 1992 FECAL OCCULT BLOOD FECAL OCCULT BLOOD [facility] Start: 1992 SIGMOIDOSCOPY SIGMOIDOSCOPY [facility] Start: 1982 LIPID SCREEN LIPID SCREEN [facility] Start: 1966 Administration of varicella zoster vaccine Zoster (Shingles) Vaccine (1 of 2) [facility] Start: 1966 DTaP,Tdap and Td Vaccines (1 - Tdap) DTaP,Tdap and Td Vaccines (1 - Tdap) [facility] Start: 1966 SHINGRIX VACCINE (1 of 2) SHINGRIX VACCINE (1 of 2) [facility] Start: 1966 Urine microalbumin profile [facility] Start: 1965 Adult BMI Follow Up Plan Adult BMI Follow Up Plan [facility] Start: 1965 ANNUAL PCP TEAM CHRONIC DISEASE VISIT ANNUAL PCP TEAM CHRONIC DISEASE VISIT [facility] Start: 1965 Hepatitis B surface antibody level LDL CHOLESTEROL [facility] Start: 1965 HEPATITIS C SCREENING HEPATITIS C SCREENING [facility] Start: 1965 Hepatitis C screening Hepatitis C Screening [facility] Start: 1957 3 comp foot exam completed DIABETIC FOOT EXAM [facility] Start: 1957 Diabetic foot examination Diabetic Foot Exam [facility] Start: 1957 Glaucoma screening Dilated Retinal Exam [facility] Start: 1957 Hepatitis B screening URINE ALBUMIN:CREATININE RATIO [facility] Start: 1957 Hepatitis C antibody, confirmatory test DILATED RETINAL EXAM [facility] Start: [birth year]18-1946 COVID-19 VACCINE (#1) COVID-19 VACCINE (#1) [facility] Start: 1947 ABDOMINAL AORTIC ANEURYSM SCREENING ABDOMINAL AORTIC ANEURYSM SCREENING [facility] Start: 1947 Glaucoma screening Diabetic Ophthalmology Exam [facility] Start: 1947 Medicare Annual Wellness (AWV) Medicare Annual Wellness (AWV) [facility] Start: 1947 Medicare Annual Wellness Visit Medicare Annual Wellness Visit [facility] Start: 1945 Tobacco Counseling Tobacco Counseling [facility] CARDIOPULMONARY REHABILITATION CARDIOPULMONARY REHABILITATION Cardiac Services Ordered: 07/17/2023 [facility] Comment on above: Ordered: 07/17/2023 CARDIOPULMONARY REHABILITATION CARDIOPULMONARY REHABILITATION Cardiac Services Ordered: 07/23/2023 [facility] Comment on above: Ordered: 07/23/2023 CARDIOPULMONARY [...] LV GRAM/PRESS nstemi TTH CARDIAC [facility] Immunizations Immunization Date Immunization Notes Care Provider Fa cility 08-02-2023 Influenza Vaccine, Quadrivalent, Adjuvanted [facility] 08-02-2023 influenza virus vaccine, unspecified formulation [facility] 04-02-2022 influenza, high-dose , quadrivalent vaccine (FLUZONE HIGH DOSE QUADRIVALENT) Faraz Beckham MD Work Phone: [facility] 04-02-2022 influenza virus vaccine, unspecified formulation [address] 03-30-2020 influenza, high dose seasonal, preservative-free Faraz Beckham MD Work Phone: [facility] 04-01-2019 influenza, high dose seasonal, preservative-free Faraz Beckham MD Work Phone: [facility] 06-24-2018 pneumococcal conjuga te vaccine, 13 valent Faraz Beckham MD Work Phone: [facility] 05-13-2018 influenza, high dose seasonal, preservative-free Faraz Beckham MD Work Phone: [facility] 05-28-2017 influenza, injectabl e, quadrivalent, contains preservative Faraz Beckham MD Work Phone: [facility] Payers Date Payer Category Payer Self-pay [id number] 2021 Managed Care Other (unspecified) [facility] [id number]. 2.7.9.952478.527.315 2021 Private Health Insurance 1.2 .840.949934.1.13.159. 2.7.3.293968.315 2012 Medicare 1.2.840.505524. 1.13.159. 2.7.3.178451.315 1959 Medicare [id number] 1959 Unknown [id number] 1947 Unknown [id number] 2.16.840.1.430431.3.579. 2.593 1947 Unknown [id number] 2.16.840.1.507857.3.579. 2.593 1947 Unknown [id number] 2.16.840.1.605844.3.579. 2.1286 1947 Unknown [id number] 2.16.840.1.311746.3.579. 2.1286 1947 Unknown [id number] 2.16.840.1.708319.3.579. 2.1285 1947 Unknown [id number] 2.16.840.1.261617.3.579. 2.1285 1947 Unknown [id number] 2.16.840.1.628724.3.579. 2.1285 1947 Unknown [id number] 2.16.840.1.596740.3.579. 2.128 1947 Unknown [id number] 2.16.840.1.442141.3.579. 2.1285 1947 Unknown [id number] 2.16.840.1.010984.3.579. 2.1285 1947 Unknown [id number] 2.16.840.1.160628.3.579. 2.1285 1947 Unknown [id number] 2.16.840.1.048935.3.579. 2.1285 1947 Unknown [id number] 2.16.840.1.390581.3.579. 2.1285 1947 Unknown [id number] 2.16.840.1.887405.3.579. 2.1285 1947 Unknown [id number] 2.16.840.1.825682.3.579. 2.1285 1947 Unknown [id number] 2.16.840.1.444443.3.579. 2.1285 1947 Unknown [id number] 2.16.840.1.297469.3.579. 2.1285 1947 Unknown [id number] 2.16.840.1.126330.3.579. 2.1285 1947 Unknown [id number] 2.16.840.1.821572.3.579. 2.1285 1947 Unknown [id number] 2.16.840.1.901562.3.579. 2.1285 1947 Unknown [id number] 2.16.840.1.311349.3.579. 2.6 1947 Unknown [id number] 2.16.840.1.255048.3.579. 2.1285 1947 Unknown [id number] 2.16.840.1.703495.3.579. 2.1285 1947 Unknown [id number] 2.16.840.1.528580.3.579. 2.1285 1947 Unknown [id number] 2.16.840.1.218911.3.579. 2.1285 1947 Unknown [id number] 2.16.840.1.916741.3.579. 2.1285 1947 Unknown [id number] 2.16.840.1.630146.3.579. 2.1285 1947 Unknown [id number] 2.16.840.1.749879.3.579. 2.1285 1947 Unknown [id number] 2.16.840.1.939018.3.579. 2.1285 1947 Unknown [id number] 2.16.840.1.884049.3.579. 2.1285 1947 Unknown [id number] 2.16.840.1.921636.3.579. 2.1285 1947 Unknown [id number] 2.16.840.1.836843.3.579. 2.1285 1947 Unknown [id number] 2.16.840.1.298913.3.579. 2.1285 1947 Unknown [id number] 2.16.840.1.252529.3.579. 2.1285 1947 Unknown [id number] 2.16.840.1.460444.3.579. 2.1259 1947 Unknown [id number] 2.16.840.1.314801.3.579. 2.1258 1947 Unknown [id number] 2.16.840.1.386149.3.579. 2.1259 1947 Unknown [id number] 2.16.840.1.327737.3.579. 2.1258 1947 Unknown [id number] 2.16.840.1.529517.3.579. 2.125 1947 Unknown [id number] 2.16.840.1.858281.3.579. 2.1258 1947 Unknown [id number] 2.16.840.1.838781.3.579. 2.1258 1947 Unknown [id number] 2.16.840.1.375502.3.579. 2.125 1947 Unknown [id number] 2.16.840.1.916251.3.579. 2.125 Unknown [id number] Unknown [id number] 2.16.840.1.255522.3.579. 2.531 Unknown [id number] 2.16840.1.660678.3.579. 2.531 Unknown [id number] 2.16840.1.867918.3.579. 2.531 Worker's Comp, Other (unspecified) WORKER'S COMPENSATION 1.2.840.034627.1.13.424. 2.7.9.562956.301.315 Worker's Compensation [id number] Social History Date Type Detail Facility Tobacco smoking stat us RIIS Unknown if ever smoked [facility] Start: 1945 Sex Assigned At Male [facility] Start: 07-21-1964 End: 04-26-2024 Tobacco smoking status NHIS Smokes tobacco daily [facility] Start: 07-21-1964 End: 07-21-2019 History of tobacco use Cigarette Smoker [facility] History of tobacco use Passive smoker [facility] Start: 06-18-2022 End: 02-26-2024 Tobacco use and exposure Smokeless tobacco non-user [facility] Start: 1945 Sex Assigned At Not on file [facility] Start: 06-21-2022 End: 02-26-2024 Tobacco smoking status NHIS Ex-smoker [facility] Start: 07-21-2015 End: 07-21-2019 History of tobacco use Current smoker [facility] Start: 06-21-2022 End: 01-16-2024 Alcohol intake Not Asked [facility] Start: 06-11-2022 End: 06-21-2022 Exposure to SARS-CoV-2 (event) Not sure [facility] Start: 05-06-2022 End: 04-25-2024 Cigarettes smoked current (pack per day) - Reported 0.5 [facility] Start: 05-01-2023 End: 05-12-2024 Alcohol intake Current drinker of alcohol (finding) [facility] Start: 08-09-2019 End: 04-25-2024 Alcohol Use Disorder Identification Test - Consumption [AUDIT-C] [facility] Frequency of Alcohol Consumption Never [facility] Start: 05-06-2022 Tobacco Comment 4-5 cigarettes per day [facility] Start: 08-07-2018 Alcohol Comment once a month [facility] Start: 04-26-2024 Tobacco Comment 4-5 cigarettes per day or at least 1 pack a week [facility] Start: 04-26-2024 Alcohol Comment 1 drink a year at least [facility] Start: 04-26-2024 Gender identity Identifies as male gender (finding) [facility] Start: 04-26-2024 Sexual orientation Heterosexual (finding) [facility] Start: 04-27-2024 End: 05-05-2024 Alcoholic beverage intake Ex-drinker (finding) [facility] Has the [employer], or [employer] threatened to shut off services in your home in past 12Mo No [facility] How often to you hav e a drink containing alcohol? Never [facility] Do you belong to any clubs or organizations such as alevism groups, unions, fraternal or athletic groups, or school groups? Yes [facility] Are you now , , , , never or living with a partner? [facility] How often to you hav e a drink containing alcohol? Monthly or less [facility] How many standard dr inks containing alcohol do you have on a typical day? 1 or 2 [facility] Do you feel stress - tense, restless, nervous, or anxious, or unable to sleep at night because your mind is troubled all the time - these days [OSQ] Not at all [facility] (I/We) worried wheth er (my/our) food would run out before (I/we) got money to buy more. 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 - Sna - [id number] Start: 11-06-2021 System Cor Stnt 3.5mm X 23mm 145cm [facility] - [id number] FDA Start: 04-07-2023 System Cor Stnt 3.0mm X 18mm 145cm [employer] [facility] [place] - [id number] FDA Start: 04-07-2023 System Cor Stnt 3.0mm X 18mm 145cm [employer] [facility] [place] - [id number] FDA Start: 04-07-2023 System Cor Stnt 3.5mm X 28mm 145cm [employer] [facility] [place] - [id number] FDA Start: 04-07-2023 System Cor Stnt 4.0mm X 12mm 145cm [employer] [facility] [place] - [id number] FDA Start: 04-28-2024 Use as instructed [id number] Start: 01-09-2024 Goals Date Patient Goal Desired Activity /State [...] with spouse support. Clinical Notes 06-21-2022 to 05-20-2024 Telephone Encounter - Yvrose Crawford CMA - 05/20/2024 4:24 PM EDTTelephone Encounter - Yvrose Crawford CMA - 05/20/2024 4:24 PM Pal Mcgrath MD - 05/12/2024 10:37 AM EDTPatient Instructions Note Date & Type Note Facility 05-20-2024 Miscellaneous Notes Left message for patient to call the office to schedule hospital follow up appointment [facility] Telephone encounter Note Left message for patient to call the office to schedule hospital follow up appointment [facility] [employer] [facility] 05-12-2024 History of Present illness Narrative Associated Problem(s): PAD (peripheral artery disease) (CMS/HCC) Follow with vascular. Associated Problem(s): Chronic heart failure with preserved ejection fraction (HFpEF) (CMS/HCC) Edema stable and continue medication. Follow with cardiology. Associated Problem(s): Benign essential tremor Resume primidone. Associated Problem(s): Benign essential HTN (CMS/HCC) BP controlled and monitor PRN. Associated Problem(s): Arteriosclerosis of coronary artery ([facility]/HCC) No pain and follow with cardiology. Associated Problem(s): Type 2 diabetes mellitus with hyperglycemia, with long-term current use of insulin (CMS/HCC) Not checking BS and due for A1C. Stick to ADA diet and limit carbs. Images from the original note were not included. Subjective Patient ID: Ila Morejon is a 78 y.o. male who presents for Follow-up (6m /). Hospital follow up from 04-27-04/29 for CHF and follow up DM, HTN, tremor, CAD, and PVD. Patient feels well today. Developed SOB and fluid overload. Diuresed and doing well On bumex and no edema. Seen by cardiolog and stable. Not checking BS away from office but taking lantus daily. Tries to eat well and stick to ADA diet. Denies signs of elevated BS such as polyuria, polyphagia or polydipsia. Checking BP PRN and typically controlled. BP normal today. Taking medication daily and tolerating without side effects. Tremor unchanged. Still symptoms with use and at times hard to use hands. Wants to resume primidone since no longer on brillinta. Following with cardiology and no chest pain or palpitations. PVD stable and not lightheaded or dizzy when up and moving. Review of Systems Constitutional: Negative for fatigue. Respiratory: Negative for cough, shortness of breath and wheezing. Cardiovascular: Negative for chest pain and palpitations. Gastrointestinal: Negative for abdominal pain, diarrhea, nausea and vomiting. Genitourinary: Negative for dysuria. Objective Physical Exam Constitutional: General: He is not in acute distress. Appearance: Normal appearance. HENT: Head: Normocephalic. Right Ear: Tympanic membrane and ear canal normal. Left Ear: Tympanic membrane and ear canal normal. Eyes: Extraocular Movements: Extraocular movements intact. Pupils: Pupils are equal, round, and reactive to light. Cardiovascular: Rate and Rhythm: Normal rate and regular rhythm. Heart sounds: No murmur heard. No friction rub. No gallop. Pulmonary: Breath sounds: Normal breath sounds. No wheezing, rhonchi or rales. Abdominal: General: Bowel sounds are normal. There is no distension. Palpations: Abdomen is soft. Tenderness: There is no abdominal tenderness. There is no guarding or rebound. Musculoskeletal: Left lower leg: No edema. Neurological: Mental Status: He is alert. Assessment/Plan Problem List Items Addressed This Visit Arteriosclerosis of coronary artery (CMS/HCC) (Chronic) No pain and follow with cardiology. Benign essential HTN (CMS/HCC) BP controlled and monitor PRN. PAD (peripheral artery disease) (CMS/HCC) (Chronic) Follow with vascular. Type 2 diabetes mellitus with hyperglycemia, with long-term current use of insulin (CMS/HCC) - Primary Not checking BS and due for A1C. Stick to ADA diet and limit carbs. Relevant Orders Hemoglobin A1c Benign essential tremor Resume primidone. Relevant Medications primidone (Mysoline) 50 MG tablet Chronic heart failure with preserved ejection fraction (HFpEF) ([facility]/HCC) Edema stable and continue medication. Follow with cardiology. documented in this encounter [facility] 05-11-2024 Note [facility] Consult Note [facility] Reason for visit: Sinus pause HPI: Ila Morejon is a 78 y.o. year old with past medical history of CAD s/p PCI in 2015, diabetes mellitus, hypertension, PAD, sleep apnea, CLL, Afib who was previously seen by Dr. BELLO. As per the history he was admitted to the hospital in March for non-STEMI and at that time underwent stent placement to the RCA. Hospitalization at that time revealed underlying bradycardia and there was a discussion about pacemaker but he wanted to wait and see. He was subsequently seen in rehab and this had showed a 5-second pause. Patient was asymptomatic that time and denied any syncope or dizziness. He was started on Eliquis for new onset afib while admitted. He was also switched from lisinopril to losartan and started on Bumex. Feels a lot better s/p discharge. He's been walking every day. Denies chest pain and SOB. Denies palpitations and bleeding on Eliquis. This is expensive for him. PMH: Past Medical History: Diagnosis Date Carotid artery stenosis Chronic kidney disease Coronary artery disease Diabetes mellitus ([facility]/HCC) Hyperlipidemia Hypertension Myocardial infarction ([facility]/HCC) PAD (peripheral artery disease) ([facility]) PSH: Past Surgical History: Procedure Laterality Date CARDIAC CATHETERIZATION CHOLECYSTECTOMY CORONARY STENT PLACEMENT PERIPHERAL ARTERIAL STENT GRAFT SH: Social Determinants of Health Tobacco Use: High Risk (04/12/2024) Patient History Smoking Tobacco Use: Every Day Smokeless Tobacco Use: Never Passive Exposure: Not on file Alcohol Use: Not on file Financial Resource Strain: Not on file Food Insecurity: Not on file Transportation Needs: Not on file Physical Activity: Not on file Stress: Not on file Social Connections: Not on file Intimate Partner Violence: Not on file Depression: Not on file Housing Stability: Not on file Utilities: Not on file Allergies: No Known Allergies Weight: 73.5kg Visit Vitals BP 162/54 (BP Location: Right arm, Patient Position: Sitting) Pulse (!) 41 Ht 1.727 m (5' 8 ) Wt 73.5 kg (162 lb) SpO2 97% BMI 24.63 kg/m??? Smoking Status Every Day BSA 1.88 m??? Meds: Current Outpatient Medications on File Prior to Visit Medication Sig Dispense Refill amLODIPine (Norvasc) 10 mg tablet Take 1 tablet by mouth once daily as directed. apixaban (Eliquis) 5 mg tablet Take 5 mg by mouth two times daily. aspirin 81 mg chewable tablet Chew 81 mg. bumetanide (Bumex) 1 mg tablet Take 1 mg by mouth in the morning. cholecalciferol (Vitamin D-3) 25 MCG (1000 units) tablet Take 2,000 Units by mouth in the morning. clopidogrel (Plavix) 75 mg tablet Take 4 tablets (300 mg) by mouth in the morning for 1 day, THEN 1 tablet (75 mg) in the morning. 364 tablet 0 gabapentin (Neurontin) 300 mg capsule Take 300 mg by mouth three times daily. insulin glargine (Lantus) 100 unit/mL injection vial Inject 52 Units under the skin. losartan (Cozaar) 50 mg tablet Take 50 mg by mouth in the morning. metFORMIN (Glucophage) 500 mg tablet Take 500 mg by mouth with breakfast. rosuvastatin (Crestor) 40 mg tablet Take 20 mg by mouth in the evening. Brilinta 90 mg tablet Take 90 mg by mouth two times daily. lisinopril 20 mg tablet Take 20 mg by mouth in the morning. potassium gluconate 595 mg (99 mg) tablet extended release Take 595 mg by mouth in the morning. No current facility-administered medications on file prior to visit. ROS: Review of Systems Hematologic/Lymphatic: Bruises/bleeds easily. Musculoskeletal: Positive for back pain and muscle weakness. Psychiatric/Behavioral: Positive for memory loss. All other systems reviewed and are negative. Physical Exam: Constitutional General Appearance: well-nourished, well-developed, appears stated age Level of Distress: comfortable Psychiatric Mental Status: alert, normal affect Orientation: oriented to time, place, and person Insight: good judgement Eyes Lids and Conjunctivae: non-injected, no xanthelasma ENMT Ears: no lesions on external ear Nose: no lesions on external nose Oropharynx: no cyanosis, no pallor Neck Neck: supple, trachea midline Carotid Arteries: bilateral normal upstroke, no bruits Jugular Veins: normal jugular venous pressure Thyroid: not enlarged Lungs Respiratory Effort: unlabored Chest Exam: normal curvature, no thoracic deformity Auscultation: clear, no wheezing, no rales, no rhonchi Cardiovascular Rate And Rhythm: regular Heart Sounds: normal S1, normal s2, no gallop Systolic Murmur: not heard Diastolic Murmur: not heard Extremities: no cyanosis, no edema, no peripheral signs of emboli Peripheral Pulses Radial Pulse: normal Abdomen Inspection and Palpation: soft, non distended, no bruit, non tender Musculoskeletal Inspection: no joint swelling Neurologic Gait: normal gait Skin Inspection an (more content not included)... [facility] 04-29-2024 Misc[phone] [facility] Sammie dixon abnormal rhythm, rm [id number] Secure chat sent documented in this encounter [facility] 04-29-2024 Telephone encounter Note Contract: jake [phone] [facility] Sammie dixon abnormal rhythm, rm [id number] [facility] 04-29-2024 Telephone encounter Note Secure chat sent [facility] 04-28-2024 Miscellaneous Notes Contract: britany ryder [phone] [facility] Sepideh dixon continuation of orders; Rm A534 jake message was sent to Dana Willy via secure chat documented in this encounter [facility] 04-28-2024 Telephone encounter Note Contract: ppcr d [phone] [facility] Sepideh re continuation of orders; Rm A534 [facility] 04-28-2024 Telephone encounter Note ppcrd message was sent to Dana Aguilera via secure chat [facility] 04-28-2024 Miscellaneous Notes Contract: JAKE Cochran @[facility] called regarding elevated blood pressure. I sent Deon Lee a secure chat message. documented in this encounter [facility] 04-28-2024 Telephone encounter Note Contract: JAKE Cochran @[facility] called regarding elevated blood pressure. I sent Deon Rosa a secure chat message. [facility] 04-26-2024 Miscellaneous Notes Contract: [facility] - new consult for elevated trops Contract: [facility] - Sent Secure Chat to Dr. Cotton Routed call to [facility] Consult Desk documented in this encounter [facility] 04-26-2024 Telephone encounter Note Contract: [facility] - new consult for elevated trops [facility] 04-26-2024 Telephone encounter Note Contract: [facility] - Sent Secure Chat to Dr. Cotton Routed call to [facility] Consult Desk [facility] 04-12-2024 Note [facility] Cardiology Clinic Note Chief Complaint: New patient here to establish care. Ref from Dr. Mcgrath for CAD. He sees vascular surgery in [place] for PAD and carotid artery stenosis. Last heart cath was performed in Mar 2023 at [facility]. He was last seen in their office for follow up in Aug 2023. Patient states he's got a lot of side effects from Brilinta, and would like to go back to Plavix. He says [employer] was pushing Brilinta. Smokes 1-2 cigarettes a [...] 78 y.o. male with history of ASCVD/PCI 2015, diabetes, hypertension, [...] work 30 hours per week for the [employer]. UPDATE 04/12/2024 He is doing fairly well; he denies lightheadedness, dizziness, or syncope He said no further arm pain that was a symptom prior to requiring stents. Looking at the report of his cardiac catheterization and stent placement 04/07/2023: 99% stenosis in the stented portion of the mid right coronary artery with thrombus PMHx: Coronary artery disease involving [place] coronary artery of [place] heart without angina pectoris Abnormal result of cardiovascular function study, unspecified Hypertension Type 2 diabetes mellitus 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 ([facility]) Status post angioplasty with stent PAD (peripheral artery disease) ([facility]) Claudication ([facility]) Bilateral carotid artery stenosis Mixed hyperlipidemia Asymptomatic bradycardia NSTEMI (non-ST elevated myocardial infarction) ([facility]) Cardiology ROS: Review of Systems Cardiovascular: Positive [...] moderate annular calcification. (more content not included)... [facility] 03-05-2024 Note XR CHEST 2 VWS Procedure: Chest x-ray performed Number of views:PA and lateral History:Weakness and fatigue Comparison:04/04/2023 Findings: The heart and lungs show no acute findings, and the mediastinum and debbie are grossly negative . Impression: No acute change. Finalized by Aurelia Payton DO on 03/05/2024 4:27 PM [facility] 01-16-2024 History of Present illness Narrative Images from the original note were not included. NAME: Ila Morejon CLINIC NO.: [id number] DATE OF SERVICE: [facility] 16, 2024 [facility] Some elements in this clinic note that [...] Reverse Chronological Order 04/04/2023 - Admitted to [facility] with NSTEMI Underwent placement of [...] Has been sleeping more, especially since the [place]. Updated Visit, December 27, 2022: 13 year [...] which included preparing to see the patient, [id number] patient care, completing clinical documentation, obtaining and/or reviewing separately obtained history, performing a medically appropriate examination, counseling and educating the patient/family/caregiver, ordering medications, tests, or procedures, and independently interpreting results (not separately reported). Faraz Beckham MD, CPE Hematology and Oncology Services Provided at: [place], [place] Scribe Attestation: This note was scribed [...] under my direction. CC: Cruzito Mcgrath MD ([facility]) [address] [facility] [address] documented in this encounter [facility] 01-16-2024 Note HNO ID: [id number] Author: FARAZ BECKHAM MD Service: ? Author Type: Physician Type: Progress Notes Filed: 01/16/2024 18:22 Note Text: NAME: Ila Morejon [facility] NO.: [id number] DATE OF SERVICE: January 16, 2024 (Lory) [...] Reverse Chronological Order 04/04/2023 - Admitted to [facility] with NSTEMI Underwent placement of [...] Has been sleeping more, especially since the [place]. Updated Visit, December 27, 2022: 13 year [...] 20 mg tablet (more content not included)... [facility] 01-16-2024 Instructions Faraz Beckham MD - 01/16/2024 2:33 PM EDT RTC in 6 months, with labs same day. documented in this encounter [facility] 09-03-2023 History of Present illness Narrative Ila Morejon Date of visit: 09/03/2023 Date of : 1945 Age: 78 y.o. Patient Active Problem List Diagnosis Coronary artery disease involving onondaga coronary artery of onondaga heart without angina pectoris Abnormal result of cardiovascular function study, unspecified Hypertension Type 2 diabetes mellitus 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 ([facility]) Status post angioplasty with stent PAD (peripheral artery disease) ([facility]) Claudication ([facility]) Bilateral carotid artery stenosis Mixed hyperlipidemia Asymptomatic bradycardia NSTEMI (non-ST elevated myocardial infarction) ([facility]) No Known Allergies Current Outpatient Medications Medication [...] mg total) by mouth in the morning. baoynimv-qbcg-MH-calcium &mins (THERAGRAN-M) 9 mg iron-400 mcg tablet [...] myles while ep md in office - formerly [facility] pt History of Present Illness Ila [...] work 30 hours per week for the [employer]. Past Medical History: Diagnosis Date Abnormal result of cardiovascular function study, unspecified Coronary atherosclerosis due to calcified coronary lesion Dental disease full dentures Diabetes mellitus ([facility]) Diabetes mellitus type 2, controlled ([facility]) Hyperlipidemia Hypertension Sleep apnea bipap Visual impairment No data recorded No data recorded No data recorded Past Surgical History: Procedure Laterality Date ANGIOPLASTY Bilateral 12/2020 legs CARDIAC CATHETERIZATION 2016 stents x2 Cardiac catheterization N/A 04/07/2023 Performed by Tayler Corey MD at [facility] CARDIAC CATH LABS COLONOSCOPY N/A 12/26/2022 Performed by Chino Raza DO at [facility] Coronary angiogram only N/A 04/07/2023 Performed by Tayler Corey MD at [facility] CARDIAC CATH LABS DAVINCI REPAIR HERNIA INGUINAL Left 11/06/2021 Performed by Chino Raza DO at [facility] drug eluting stent right coronary artery N/A 04/07/2023 Performed by Tayler Corey MD at [facility] CARDIAC CATH LABS SKIN BIOPSY Family [...] Cardiac Electrophysiology 2. Coronary artery disease involving onondaga coronary artery of onondaga heart without angina pectoris 3. Hypertension, unspecified type 4. NSTEMI (non-ST elevated myocardial infarction) ([facility]) Sinus node dysfunction ASCVD/PCI March 2023 Preserved [...] MCGRATH MD Referring Physician: Debbie Hirsch MD [address] [place] [place] [address] Geneva Sanders APRN-VIDHYA 09/03/23 1256 documented in this encounter [facility] 08-27-2023 History of Present illness Narrative Ila Morejon Date of visit: 08/27/2023 Date of : 1945 Age: 78 y.o. Patient Active Problem List Diagnosis Coronary artery disease involving onondaga coronary artery of onondaga heart without angina pectoris Abnormal result of cardiovascular function study, unspecified Hypertension Type 2 diabetes mellitus 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 ([facility]) Status post angioplasty with stent PAD (peripheral artery disease) ([facility]) Claudication ([facility]) Bilateral carotid artery stenosis Mixed hyperlipidemia Asymptomatic bradycardia NSTEMI (non-ST elevated myocardial infarction) ([facility]) No Known Allergies Current Outpatient Medications Medication [...] mg total) by mouth in the morning. tbtpyivi-mrts-DD-calcium &mins (THERAGRAN-M) 9 mg iron-400 mcg tablet [...] lesion Dental disease full dentures Diabetes mellitus ([facility]) Diabetes mellitus type 2, controlled ([facility]) Hyperlipidemia Hypertension Sleep apnea bipap Visual impairment No data recorded No data recorded No data recorded Past Surgical History: Procedure Laterality Date ANGIOPLASTY Bilateral 12/2020 legs CARDIAC CATHETERIZATION 2016 stents x2 Cardiac catheterization N/A 04/07/2023 Performed by Tayler Corey MD at [facility] CARDIAC CATH LABS COLONOSCOPY N/A 12/26/2022 Performed by Chino Raza DO at [facility] Coronary angiogram only N/A 04/07/2023 Performed by Tayler Corey MD at [facility] CARDIAC CATH LABS DAVINCI REPAIR HERNIA INGUINAL Left 11/06/2021 Performed by Chino Raza DO at [facility] drug eluting stent right coronary artery N/A 04/07/2023 Performed by Tayler Corey MD at [facility] CARDIAC CATH LABS SKIN BIOPSY Family [...] by mouth 3 (three) times a day. xfuphziz-qkwa-LM-calcium &mins (THERAGRAN-M) 9 mg iron-400 mcg tablet [...] Referring Physician: Cruzito Mcgrath MD [address] [place] [address] documented in this [facility]23 Miscellaneous Notes Called patient to remind them to bring their most current copy of their medication list with them to their appt. Patient verbalizes understanding. documented in this encounter [facility]-26-2023 Telephone encounter Note Called patient to remind them to bring their most current copy of their medication list with them to their appt. Patient verbalizes understanding. [facility] 08-04-2023 History of Present illness Narrative Patient noted to have a history of bradycardia Scheduled pt for 48 HM on 08/05/23 at 9am. Made appt in the [place] office for 08/27/23 at 2pm. Called pt and he verbalizes understanding.slm [facility] History of Present illness Narrative Cardiac rehab has noted asymptomatic bradycardia with heart rate into the 20s. Holter monitor ordered Patient should have follow-up in the office documented [facility] this [facility]-16[facility]2023 Note HNO ID: [id number] Author: Faraz Beckham MD Service: ? Author Type: Physician Type: Progress Notes Filed: 07/16/2023 7:35 PM Note Text: NAME: Ila Morejon CLINIC NO.: [id number] DATE OF SERVICE: July 16, 2023 (Lory) [...] Reverse Chronological Order 04/04/2023 - Admitted to [facility] with NSTEMI Underwent placement of [...] Has been sleeping more, especially since the [place]. Updated Visit, December 27, 2022: 13 year [...] D3, 10 mcg (more content not included)... [facility] 12-27-2022 Instructions Faraz Beckham MD - 12/27/2022 2:28 PM EDT RTC in 6 months with labs same day. documented in this encounter [facility] 12-27-2022 History of Present illness Narrative Images from the original note were not included. NAME: Ila Morejon CLINIC NO.: [id number] DATE OF SERVICE: December 27, 2022 (Lory) [...] which included preparing to see the patient, uwue-vk-njug patient care, completing clinical documentation, obtaining and/or reviewing separately obtained history, performing a medically appropriate examination, counseling and educating the patient/family/caregiver, ordering medications, tests, or procedures, and independently interpreting results (not separately reported). Faraz Beckham MD, CPE Hematology and Oncology Services Provided at: [place], [place] CC: Cruzito Mcgrath MD ([facility]) [address] [facility] [address] documented in this encounter [facility] 06-27-2022 Instructions Faraz Beckham MD - 06/27/2022 5:37 PM EST Keep prior documented in this encounter [facility] 06-27-2022 History of Present illness Narrative Images from the original note were not included. NAME: Ila Morejon CLINIC NO.: [id number] DATE OF SERVICE: June 27, 2022 (Lory) [...] CPE Hematology and Oncology Services Provided at: [place], [place] CC: Cruzito Mcgrath MD ([facility]) [address] [facility] [address] documented in this encounter [facility] 06-27-2022 Nurse Note Clinical questionnaires incomplete due to phone call. Miryam Gunter MA documented in this encounter [facility] 06-21-2022 Instructions Faraz Beckham MD - 06/21/2022 3:40 PM EST Phone call next week with results RTC in 6 months with labs same day. documented in this encounter [facility] 06-21-2022 History of Present illness Narrative Images from the original note were not included. NAME: Ila Morejon CLINIC NO.: [id number] DATE OF SERVICE: June 21, 2022 Referring [...] which included preparing to see the patient, [id number] patient care, completing clinical documentation, obtaining and/or reviewing separately obtained history, performing a medically appropriate examination, counseling and educating the patient/family/caregiver, ordering medications, tests, or procedures, and independently interpreting results (not separately reported). Faraz Beckham MD, CPE Hematology and Oncology Services Provided at: [place], [place] CC: Cruzito Mcgrath MD ([facility]) [address] [facility] [address] documented in this encounter [facility] Evaluation note No assessment inform [facility] Evaluation note Diagnosis Lymphocytosis- Primary Lymphocytosis (symptomatic) [facility] Diagnosis CLL (chronic lymphocytic leukemia) (HCC)- Primary Chronic lymphoid leukemia, without mention of having achieved remission Large granular lymphocytosis Lymphocytosis (symptomatic) [facility] Diagnosis CLL (chronic lymphocytic leukemia) (HCC)- Primary Chronic lymphoid leukemia, without mention of having achieved remission Large granular lymphocytosis Lymphocytosis (symptomatic) Stage 3 chronic kidney disease, unspecified whether stage 3a or 3b CKD (HCC) Type 2 diabetes mellitus 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, unspecified whether shelter insulin use (HCC) documented [facility] this [facility]* Diagnosis Bradycardia- Primary Other specified cardiac dysrhythmias [facility] Diagnosis History of coronary angioplasty with insertion of stent- Primary Pulmonary hypertension ([facility]) Other chronic pulmonary heart diseases Primary hypertension Unspecified essential hypertension Hx of hyperlipidemia Sinus pause [facility] Diagnosis Coronary artery disease involving onondaga coronary artery of onondaga heart without angina pectoris- Primary Sinus pause Hypertension, unspecified type NSTEMI (non-ST elevated myocardial infarction) ([facility]) Acute myocardial infarction, subendocardial infarction, episode of care unspecified [facility] Diagnosis CLL (chronic lymphocytic leukemia) ([facility])- Primary Chronic lymphoid leukemia, without mention of having achieved remission Large granular lymphocytosis Lymphocytosis (symptomatic) Stage 3 chronic kidney disease, unspecified whether stage 3a or 3b CKD ([facility]) [facility]* Diagnosis Onset Date Resolution Status PAD (peripheral artery disease) [facility] Work Phone: Evaluation note* Diagnosis Onset Date Resolution Status PAD (peripheral artery disease) acute Spondylosis of lumbar region without myelopathy or radiculopathy acute Trochanteric bursitis of both hips acute Claudication of left lower extremity acute Diminished pulses in lower extremity acute Former smoker acute Left leg pain acute PAD (peripheral artery disease) [facility] Work Phone: Evaluation note* Diagnosis Type 2 diabetes mellitus with hyperglycemia, without long-term current use of insulin ([facility])- Primary Benign essential HTN ([facility]) Edema of both legs Edema Essential tremor URI, acute Acute upper respiratory infections of unspecified site Type 2 diabetes mellitus with hyperglycemia, with long-term current use of insulin ([facility])- Primary Benign essential HTN ([facility]) Benign essential tremor Essential and other specified forms of tremor Bilateral carotid artery stenosis Occlusion and stenosis of carotid artery without mention of cerebral infarction Arteriosclerosis of coronary artery ([facility]) CKD stage 3a, GFR 45-59 ml/min ([facility]) Mixed hyperlipidemia ([facility]) Mixed hyperlipidemia Vitamin D deficiency Encounter for long-term (current) use of medications Encounter for long-term (current) use of other medications Type 2 diabetes mellitus with stage 3a chronic kidney disease, with long-term current use of insulin (HCC) ([facility]) Type 2 diabetes mellitus 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, with long-term current use of insulin ([facility]) Weakness of both legs- Primary Muscle weakness (generalized) Pneumonia of both lungs due to infectious organism, unspecified part of lung- Primary Type 2 diabetes mellitus with hyperglycemia, with long-term current use of insulin ([facility]) CLL (chronic lymphocytic leukemia) ([facility]) Chronic lymphoid leukemia, without mention of having achieved remission Immunodeficiency due to conditions classified elsewhere ([facility]) Change in voice- Primary Other voice and resonance disorders Hoarseness Dysphonia DDD (degenerative disc disease), lumbar Degeneration of lumbar or lumbosacral intervertebral disc PAD (peripheral artery disease) ([facility]) Unspecified peripheral vascular disease Type 2 diabetes mellitus with hyperglycemia, with long-term current use of insulin ([facility]) Bilateral carotid artery stenosis Occlusion and stenosis of carotid artery without mention of cerebral infarction Type 2 diabetes mellitus with hyperglycemia, with long-term current use of insulin ([facility])- Primary Benign essential HTN ([facility]) Chronic heart failure with preserved ejection fraction (HFpEF) ([facility]) Arteriosclerosis of coronary artery ([facility]) Benign essential tremor Essential and other specified forms of tremor PAD (peripheral artery disease) ([facility]) Unspecified peripheral vascular disease CKD stage 3b, GFR 30-44 ml/min ([facility]) 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[facility]) Type 2 diabetes mellitus 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 ([facility]) documented in this encounter [facility] HealthcareInstructionsNot on filedocumented in this encounter[facility] SystemInstructionsNot on filedocumented in this encounterMet[facility] SystemInstructionsNot on filedocumented in this encounterTr[facility] HospitalInstructionsNot on filedocumented in this encounter[facility] InstructionsNot on filedocumented in this [facility] InstructionsNot on filedocumented in this [facility] InstructionsNot on filedocumented in this [facility] InstructionsNot on filedocumented in this encounterTrumbull [facility] HospitalReason for referral (narrative)* Consultation (Routine) - Pending Review Specialty Diagnoses / Procedures Referred By Lynne t Referred To Contact Cardiology Diagnoses Sinus pause Debbie Hirsch MD [address] [place] [address] Jerry An MD [facility] [address] [address] Referral ID Status Reason Start Date Expiration Date Visits Requested Visits Authorized [id number] Pending Review Specialty Services Required 08/27/2023 08/26/20[address] [facility] for visit Narrative* Consultation (Routine) - Pending Review Specialty Diagnoses / Procedures Referred By Lynne paniagua Referred To Contact Cardiac Rehabilitation Diagnoses S/P drug eluting coronary stent placement Procedures [facility] - [facility] - [place], [place] Tayler Corey MD [address] [place] [address] [facility] Cardiac Rehab Billing [address] [place] [address] Referral ID Status Reason Start Date Expiration Date V isits Requested Visits Authorized [id number] Pending Review 04/07/2023 04/06/2024 36 36 [facility] Chief Complaint and Reason for Visit Chief Complaint Z01.818 I70.213 Chief Complaint Unknown Chief Complaint Refer Dr Mcgrath: PV D, bilat carotid stenosis I70.213 Reason for Visit PAD (peripheral daiana ry disease) Chief Complaint Refer Dr Mcgrath: PV D, bilat carotid stenosis I70.213 Radiculopathy, lumbar region 4 WK F/U GO OVER [facility] I70.213 Reason for Visit PAD (peripheral daiana ry disease) Spondylosis of lumbar region without myelopathy or radiculopathy Trochanteric bursitis of both hips Claudication of left lower extremity Diminished pulses in lower extremity Former smoker Left leg pain PAD (peripheral artery disease) Advance Directives Advance Directive Response Recorded Date/ Time Advance Directives No January 01 4:38pm Documents on File Type Date Recorded Patient Loss Prevention Detective Expl anation Durable Power of Historic Sites Registrar 04/14/2023 3:27 PM Living Will 04/14/2023 3:19 PM Latest Code Status on File Code Status Date Activated Date Inactivated Comments Full Code 04/05/2023 2:40 PM 04/08/2023 6:56 PM Documents on File Type Date Recorded Patient Loss Prevention Detective Expl anation Durable Power of Historic Sites Registrar 04/14/2023 3:27 PM Living Will 04/14/2023 3:19 [...] Activated Date Inactivated Comments 04/27/2024 12:28 PM 04/29/2024 6:50 PM Summary Purpose Family History Relationship Condition Age at Onset Recorded Date/T carli Not Specified No pertinent family history Unknown father Unknown Not Specified Unknown Relationship Condition Age at Onset Recorded Date/T carli Not Specified No pertinent family history Unknown father Unknown mother Unknown Reason for Referral Specialty Diagnoses / Procedures Referred By Contac t Referred To Contact Diagnoses Bradycardia Procedures Holter monitor 24-48 hour Wayne Donald MD [address] [place] [address] Referral ID Status Reason Start Date Expiration Date V isits Requested Visits Authorized [id number] Pending Review 08/04/2023 08/03/2024 1 1 Additional [...] DATE CREATED AUTHOR AUTHOR'S ORGANIZ ATION 01/18/2024 [facility] DATE CREATED AUTHOR AUTHOR'S ORGANIZ ATION 04/22/2024 [facility] DATE CREATED AUTHOR AUTHOR'S ORGANIZ ATION 04/30/2024 [facility] DATE CREATED AUTHOR AUTHOR'S ORGANIZ ATION 05/04/2024 [facility] DATE CREATED AUTHOR AUTHOR'S ORGANIZ ATION 05/13/2024 [facility] dical [facility] DATE CREATED AUTHOR AUTHOR'S ORGANIZ ATION 05/16/2024 [facility] Source Comments (unrecognize d section and content) In the event this informatio n is protected by the Federal Confidentiality of Alcohol and Drug Abuse Patient Records regulations: The Federal rules restrict any use of the information to criminally investigate or prosecute any alcohol or drug abuse patient.[facility] HospitalIn the event this information is protected by the Federal Confidentiality of Alcohol and Drug Abuse Patient Records regulations: The Federal rules restrict any use of the information to criminally investigate or prosecute any alcohol or drug abuse patient.[facility] HospitalIn the event this information is protected by the Federal Confidentiality of Alcohol and Drug Abuse Patient Records regulations: The Federal rules restrict any use of the information to criminally investigate or prosecute any alcohol or drug abuse patient.[facility] HospitalIn the event this information is protected by the Federal Confidentiality of Alcohol and Drug Abuse Patient Records regulations: The Federal rules restrict any use of the information to criminally investigate or prosecute any alcohol or drug abuse patient.[facility] HospitalIn the event this information is protected by the Federal Confidentiality of Alcohol and Drug Abuse Patient Records regulations: The Federal rules restrict any use of the information to criminally investigate or prosecute any alcohol or drug abuse patient.[facility] Reason for Visit (unrecogniz ed section [...] Cardiology Diagnoses Sinus pause Debbie Hirsch MD [address] [place] [address] Jerry An MD [address] [place] [address] [place] [id number] Referral ID Status Reason Start Date Expiration Date Visits Requested Visits Authorized [id number] Pending Review Specialty Services Required 08/27/2023 08/26/2024 1 1 Reason Comments Leukemia Reason Onset Date Comments new consult 04/26/2024 Ele[employer]ruti trops Reason Onset Date Comments Hypertension 04/28/2024 Reason Onset Date Comments continuation of orders 04/28/2024 [phone] [facility] Sepideh re continuation of orders; A534 Reason Onset Date Comments abnormal rhythm 04/29/2024 Reason Comments Follow-up Care Teams (unrecognized sec tion and content) Family Consumer Science Teacher Relationship Specialty Start Date End Date Cruzito Mcgrath [address] [place] [address] PCP - General Family Medicine 06/21/22 Family Consumer Science Teacher Relationship Specialty Start Date End Date Cruzito Mcgrath [address] [place] [place] [address] PCP - General Family Medicine 06/21/22 Family Consumer Science Teacher Relationship Specialty Start Date End Date Cruzito Mcgrath [address] [place] [address] PCP - General Family Medicine 06/21/22 Family Consumer Science Teacher Relationship Specialty Start Date End Date Cruzito Mcgrath MD [address] [place] [address] PCP - General Family Medicine 04/19/21 Family Consumer Science Teacher Relationship Specialty Start Date End Date Cruzito Mcgrath MD [address] [place] [address] PCP - General Family Medicine 04/19/21 Family Consumer Science Teacher Relationship Specialty Start Date End Date Cruzito Mcgrath MD [address] [place] [address] PCP - General Family Medicine 04/19/21 Family Consumer Science Teacher Relationship Specialty Start Date End Date Cruzito Mcgrath MD [address] [place] [facility] [place] [address] PCP - General Family Medicine 04/19/21 Family Consumer Science Teacher Relationship Specialty Start Date End Date Cruzito Mcgrath MD [address] [place] [facility] [place] [address] PCP - General Family Medicine 04/19/21 Family Consumer Science Teacher Relationship Specialty Start Date End Date Cruzito Mcgrath MD [address] [place] [facility] [address] PCP - General Family Medicine 04/19/21 Family Consumer Science Teacher Relationship Specialty Start Date End Date Cruzito Mcgrath MD [address] [facility] [place] [address] PCP - General Family Medicine 04/19/21 Family Consumer Science Teacher Relationship Specialty Start Date End Date Cruzito Mcgrath MD [address] [place] [facility] [place] [address] PCP - General Family Medicine 04/19/21 Family Consumer Science Teacher Relationship Specialty Start Date End Date Cruzito Mcgrath MD [address] [place] [facility] [place] [address] PCP - General Family Medicine 04/19/21 Family Consumer Science Teacher Relationship Specialty Start Date End Date Cruzito Mcgrath MD [address] [place] [facility] [place] [place] [address] PCP - General Family Medicine 04/19/21 Family Consumer Science Teacher Relationship Specialty Start Date End Date Cruzito Mcgrath MD [address] [place] [facility] [place] [address] PCP - General Family Medicine 04/19/21 Family Consumer Science Teacher Relationship Specialty Start Date End Date Cruzito Mcgrath MD [address] [place] [facility] [place] [address] PCP - General Family Medicine 04/19/21 Family Consumer Science Teacher Relationship Specialty Start Date End Date Cruzito Mcgrath MD [address] [place] [facility] [place] [place] [address] PCP - General Family Medicine 04/19/21 Team Status: Inactive Member Role Status Dates Arminda Valverde DO Attending Provider Active Sta rt: December 27, 2023 End: December 27, 2023 Family Consumer Science Teacher Relationship Specialty Start Date End Date Cruzito Mcgrath [address] [place] [facility] [place] [address] PCP - General Family Medicine 06/21/22 Team [...] April 20, 2024 End: April 20, 2024 Family Consumer Science Teacher Relationship Specialty Start Date End Date Cruzito Mcgrath MD PCP - General Family Medicine 04/19/21 Family Consumer Science Teacher Relationship Specialty Start Date End Date Cruzito Mcgrath MD PCP - General Family Medicine 04/19/21 Family Consumer Science Teacher Relationship Specialty Start Date End Date Cruzito Mcgrath MD PCP - [facility] 04/19/21 Family Consumer Science Teacher Relationship Specialty Start Date End Date Cruzito Mcgrath MD [address] [place] [id number] PCP - [facility] 04/20/23 Family Consumer Science Teacher Relationship Specialty Start Date End Date Cruzito Mcgrath MD [address] [place] [id number] PCP - [facility] 04/20/23 Family Consumer Science Teacher Relationship Specialty Start Date End Date Cruzito Mcgrath MD [address] [place] [id number] PCP - [facility] Family Medicine 04/20/23 FOR RECORDS PERTAINING TO PATIENTS WHO ARE [...] BE BASED ON THE PRIMARY CLINICAL RECORDS. [facility] [employer] [facility]. provides no warranty or guarantee of the accuracy or completeness of information in this document.
[2024-06-09 08:16] LABS: Hemoglobin 7.8 g/dL (14.0-18.0); Mean Corpuscular HGB Conc 34.1 g/dL (29.9-35.2); Mean Corpuscular Hemoglobin 30.6 pg (25.9-34.0); Mean Corpuscular Volume 89.8 fL (80.0-94.0); Mean Platelet Volume 10.5 fL (9.5-13.5); Platelet Count 170 10^3/uL (150-450); Red Blood Count 2.55 10^6/uL (4.70-6.10); White Blood Count 16.9 10^3/uL (4.0-11.0)
[2024-06-09 08:19] LABS: Hematocrit 22.9 % (42.0-54.0)
[2024-06-09 08:31] LABS: Prothrombin Time 13.4 sec (9.0-11.6)
--- NOTE | 2024-06-09 08:35 | ED_ITS ---
HPI HPI - General Adult General Chief complaint: Recheck/Abnormal Lab/Rx Stated complaint: ABNORMAL LAB VALUE Time Seen by Provider: 06/09/24 07:47 Source: patient and family Mode of arrival: walk-in Limitations: no limitations History of Present Illness HPI narrative: Patient presents to ED complaining of abnormal labs. Patient has recent lab draw yesterday that shows hemoglobin and hematocrit that were low. Patient is supposed to get a pacemaker on Friday and then noticed he has been feeling more weak and tired. He thought maybe it was due to the low heart rate but then he noticed some dark stools. He is on aspirin and Plavix and was recently taken off Eliquis 2 weeks ago. The dark stool started 1 week ago and he has been more tired cold and fatigued with exertion. No syncope no chest pain. No abdominal pain. Patient states he has not had any GI bleeding in the past. He is alert and oriented in no acute distress. He is bradycardic but not hypotensive. Patient has no other complaints at this time Related Data Home Medications ?Medication ?Instructions ?Recorded ?Confirmed amlodipine 10 mg tablet 10 mg PO QAM 12/27/23 06/09/24 aspirin 81 mg chewable tablet 1 tab PO QAM 12/27/23 06/09/24 insulin glargine 100 unit/mL 52 unit subcut DAILY 12/27/23 06/09/24 subcutaneous solution (Lantus U-100 Insulin) metformin 500 mg tablet,extended 500 mg PO DAILY 12/27/23 06/09/24 release 24 hr rosuvastatin 20 mg tablet 20 mg PO QPM 12/27/23 06/09/24 bumetanide 1 mg tablet 1 mg PO DAILY 06/09/24 06/09/24 losartan 50 mg tablet 50 mg PO DAILY 06/09/24 06/09/24 primidone 50 mg tablet 50 mg PO Q8H 06/09/24 06/09/24 rivaroxaban 20 mg tablet 20 mg PO DAILY 06/09/24 06/09/24 Allergies Allergy/AdvReac Type Severity Reaction Status Date / Time No Known Drug Allergies Allergy Verified 12/27/23 13:17 Opioid HPI Opioid Management Most Recent Opioid Data: No Data to Display Review of Systems ROS Status of ROS 10 or more systems reviewed and unremark able except as noted in history and below [facility] Medical History (Updated 06/09/24 @ 10:52 by Arminda Valverde DO) Bradycardia ?R00.1 - Bradycardia, unspecified (ICD-10) Diabetes ?E11.9 - Type 2 diabetes mellitus without complications (ICD-10) Surgical History (Updated 12/27/23 @ 14:28 by Mary Sherwood) H/O heart artery stent ?Z95.5 - Presence of coronary angioplasty implant and graft (ICD-10) Social History Little interest or pleasure in doing things: not at all Feeling down, depressed, or hopeless: not at all Exam Narrative Exam Narrative: Time Seen: [] Vital Signs: [Per nurse's notes.] General: [Alert] Skin: [Warm, dry, no rash.] Head: [Normocephalic, atraumatic.] Neck: [Supple, trachea midline.] Eye: [Pupils are equal, round and reactive to light, extraocular movements are intact, normal conjunctiva.] Ears, nose, mouth and throat: oral mucosa moist. Cardiovascular: Bradycardic, no murmur.] Respiratory: [Lungs are clear to auscultation, respirations are non-labored, breath sounds are equal.] Chest wall: [No tenderness, no deformity.] Gastrointestinal: [Soft, nontender, non distended, normal bowel sounds.] Rectal exam does not reveal any major hemorrhage or hemorrhoid. Hemoccult sent to lab MSK: 5 out of 5 muscle strength x 4 extremities no calf pain or edema Lymphatics: [No lymphadenopathy.] Psychiatric: [Cooperative, appropriate mood & affect.] Neurological: [Alert and oriented to person, place, time, and situation, no focal neurological deficit observed.] Constitutional Vital Signs, click to edit/add: Last Vital Signs Temp 98.1 F 06/09/24 07:45 Pulse 44 L 06/09/24 08:20 Resp 17 06/09/24 08:20 BP 167/52 H 06/09/24 08:01 Pulse Ox 95 06/09/24 08:20 O2 Del Method Room Air 06/09/24 07:45 Course Vital Signs Vital signs: Vital Signs Temperature 98.1 F 06/09/24 07:45 Pulse Rate 49 L 06/09/24 07:45 Respiratory Rate 18 06/09/24 07:45 Blood Pressure 166/77 H 06/09/24 07:45 Pulse Oximetry 98 06/09/24 07:45 Oxygen Delivery Method Room Air 06/09/24 07:45 Temperature 98.1 F 06/09/24 07:45 Pulse Rate 44 L 06/09/24 08:20 Respiratory Rate 17 06/09/24 08:20 Blood Pressure 167/52 H 06/09/24 08:01 Pulse Oximetry 95 06/09/24 08:20 Oxygen Delivery Method Room Air 06/09/24 07:45 Medical Decision Making MDM Narrative Medical decision making narrative: Patient's hemoglobin is 7.8. He is bradycardic and he has been symptomatic with this low hemoglobin. He has had some feelings of weakness and lightheadedness especially with exertion and he states he has been cold. I spoke to [facility] and they would like him transferred to [facility] for blood transfusion and cardiology input about his pacemaker. They did request that I start the blood transfusion here which was ordered. Patient and family comfortable with care plan for transfer. Patient is stable prior to transfer. Differential Diagnosis Differential Diagnosis: Anemia, bradycardia, Medical Records Medical records reviewed: Yes I reviewed the patient's medical records Lab Data Lab results reviewed: Yes I reviewed the patient's lab results Labs: Lab Results 06/09/24 Range/Units 08:05 WBC 16.9 H (4.0-11.0) 10^3/uL RBC 2.55 L (4.70-6.10) 10^6/uL Hgb 7.8 L (14.0-18.0) g/dL Hct 22.9 L* (42.0-54.0) % MCV 89.8 (80.0-94.0) fL MCH 30.6 (25.9-34.0) pg MCHC 34.1 (29.9-35.2) g/dL RDW 13.0 (11.0-15.0) % Plt Count 170 (150-450) 10^3/uL MPV 10.5 (9.5-13.5) fL Seg Neuts % (Manual) 52.0 (43.0-75.0) Band Neutrophils % 1.0 (0-5) % Lymphocytes % (Manual) 40.0 (20.5-60.0) % Monocytes % (Manual) 3.0 (1.7-12.0) % Eosinophils % (Manual) 2.0 (0.9-7.0) % Basophils % (Manual) 1.0 (0.2-2.0) % Metamyelocytes % 1.0 Neutrophils # (Manual) 8.78 H (1.4-6.5) 10^3/uL Band Neutrophils # 0.2 (0.0-0.3) 10^3/uL Lymphocytes # (Manual) 6.76 H (1.20-3.80) 10^3/uL Monocytes # (Manual) 0.50 (0.30-0.80) 10^3/uL Eosinophils # (Manual) 0.33 (0.00-0.70) 10^3/uL Basophils # (Manual) 0.16 H (0.00-0.10) 10^3/uL Metamyelocytes # 0.16 Smudge Cells Seen PT 13.4 H (9.0-11.6) sec INR 1.30 Sodium 141 (136-145) mmol/L Potassium 4.6 (3.5-5.1) mmol/L Chloride 106 (98-107) mmol/L Carbon Dioxide 23.5 (21.0-32.0) mmol/L Anion Gap 16.1 BUN 34.0 H (7.0-18.0) mg/dL Creatinine 1.78 H (0.70-1.30) mg/dL Est GFR ( Amer) 45 L (>=60 mL/min/1.73m^2) Est GFR (Non-Af Amer) 37 L (>=60 mL/min/1.73m^2) BUN/Creatinine Ratio 19.1 Glucose 148 H (74-106) mg/dL Calcium 8.6 (8.5-10.1) mg/dL Total Bilirubin 0.4 (0.2-1.0) mg/dL AST 17 (15-37) U/L ALT 18 (16-63) U/L Alkaline Phosphatase 77 (46-116) U/L Troponin I High Sens 66.1 (4.0-76.1) pg/mL Total Protein 5.6 L (6.4-8.2) g/dL Albumin 2.9 L (3.4-5.0) g/dL Globulin 2.7 g/dL Albumin/Globulin Ratio 1.1 Blood Type B Positive Antibody Screen Negative ECG Data Attestation: I personally reviewed and interpreted this ECG as follows: Interpretation: EKG INTERPRETATION Time: [] 754 Rate: [] 48 Rhythm: _ [] Sinus bradycardia ST segments: _ [] No acute ST elevation or depression T waves: _ [] Ectopy: _ [] P wave/MN interval: _ [] QRS interval: _ [] QT interval: _ [] Comparison: _ [] Comparison EKG date: [] Performed by: [self] Critical Care Time Critical Care Time Critical Care Time: Yes Total Critical Care Time: 74 Attestation: Symptomatic bradycardia and symptomatic anemia need for blood transfusion. Discharge Plan Discharge Chief Complaint: Recheck/Abnormal Lab/Rx Clinical Impression: Anemia, Bradycardia [facility]position[facility] Time of Disposition Decision: 10:52 Discharge Location: [facility] Condition: Fair Mode of Transportation: EMS Prescriptions / Home Meds: No Action bumetanide 1 mg tablet 1 mg PO DAILY losartan 50 mg tablet 50 mg PO DAILY primidone 50 mg tablet 50 mg PO Q8H rivaroxaban 20 mg tablet 20 mg PO DAILY Rx Instructions: must administer with evening meal amlodipine 10 mg tablet 10 mg PO QAM aspirin 81 mg tablet,chewable 1 tab PO QAM metformin 500 mg tablet extended release 24 hr 500 mg PO DAILY rosuvastatin 20 mg tablet 20 mg PO QPM insulin glargine [Lantus U-100 Insulin] 100 unit/mL solution 52 unit SUBCUT DAILY Print Language: Greek Referrals: Cruzito Eid MD [Primary Care Provider] - 1 week
[2024-06-09 08:38] LABS: Band Neutrophils Absolute 0.2 10^3/uL (0.0-0.3); Basophils Abs Manual 0.16 10^3/uL (0.00-0.10); Eosinophils Absolute Manual 0.33 10^3/uL (0.00-0.70); Lymphocytes Absolute Manual 6.76 10^3/uL (1.20-3.80); Metamyelocytes Absolute Manual 0.16; Segmented Neut Absolute Manual 8.78 10^3/uL (1.4-6.5); Smudge Cells SEEN
[2024-06-09 08:44] LABS: Alanine Aminotransferase 18 U/L (16-63); Albumin Globulin Ratio 1.1; Albumin Level 2.9 g/dL (3.4-5.0); Alkaline Phosphatase 77 U/L (46-116); Anion Gap 16.1; Aspartate Amino Transferase 17 U/L (15-37); BUN Creatinine Ratio 19.1; Bilirubin Total 0.4 mg/dL (0.2-1.0); Calcium 8.6 mg/dL (8.5-10.1); Carbon Dioxide 23.5 mmol/L (21.0-32.0); Chloride 106 mmol/L (98-107); Estimated GFR (African America 45 (>=60 mL/min/1.73m^2); Estimated GFR (Non-African Ame 37 (>=60 mL/min/1.73m^2); Globulin 2.7 g/dL; Glucose 148 mg/dL (74-106); Potassium 4.6 mmol/L (3.5-5.1); Sodium 141 mmol/L (136-145); Total Protein 5.6 g/dL (6.4-8.2); Troponin I High Sensitivity 66.1 pg/mL (4.0-76.1)
== END 2024-06-09 13:56 | disposition short-term general hospital (02) ==
PROVIDERS: Emergency Provider Emergency Medicine; PCP Family Medicine
DX: D64.9 Anemia, unspecified (principal); R00.1 Bradycardia, unspecified; Z79.82 Long term (current) use of aspirin; Z79.02 Long term (current) use of antithrombotics/antiplatelets; Z95.5 Presence of coronary angioplasty implant and graft
CPT/HCPCS: 36415; 36430; 80053; 84484; 85007; 85027; 85610; 86850; 86900; 86901; 86923; 93005; 99285; P9016

== ENCOUNTER 2024-06-16 07:57 | Outpatient (OUT) | payer MEDICARE, SELFPAY ==
[2024-06-16 08:25] LABS: Hematocrit 27.6 % (42.0-54.0); Hemoglobin 9.3 g/dL (14.0-18.0); Mean Corpuscular HGB Conc 33.7 g/dL (29.9-35.2); Mean Corpuscular Hemoglobin 30.2 pg (25.9-34.0); Mean Corpuscular Volume 89.6 fL (80.0-94.0); Mean Platelet Volume 10.5 fL (9.5-13.5); Platelet Count 174 10^3/uL (150-450); Red Blood Count 3.08 10^6/uL (4.70-6.10); Red Cell Distribution Width 12.9 % (11.0-15.0); White Blood Count 18.3 10^3/uL (4.0-11.0)
[2024-06-16 08:29] LABS: Anion Gap 13.5; BUN Creatinine Ratio 19.5; Calcium 9.2 mg/dL (8.5-10.1); Carbon Dioxide 25.2 mmol/L (21.0-32.0); Chloride 103 mmol/L (98-107); Estimated GFR (African America 50 (>=60 mL/min/1.73m^2); Estimated GFR (Non-African Ame 41 (>=60 mL/min/1.73m^2); Glucose 231 mg/dL (74-106); Potassium 4.7 mmol/L (3.5-5.1); Sodium 137 mmol/L (136-145)
[2024-06-16 08:45] LABS: Basophils Abs Manual 0.18 10^3/uL (0.00-0.10); Eosinophils Absolute Manual 0.36 10^3/uL (0.00-0.70); Lymphocytes Absolute Manual 10.43 10^3/uL (1.20-3.80); Monocytes Absolute Manual 0.73 10^3/uL (0.30-0.80); Segmented Neut Absolute Manual 6.58 10^3/uL (1.4-6.5)
[2024-06-16 08:46] LABS: Poikilocytosis 1+; Tear Drop Cells 1+
[2024-06-16 08:47] LABS: Smudge Cells SEEN
== END 2024-06-16 07:58 | disposition home or self-care (01) ==
LOC: LAB 07:59
PROVIDERS: PCP Family Medicine; Visit Provider Physician Assistant Medical
DX: K29.81 Duodenitis with bleeding (principal); I50.33 Acute on chronic diastolic (congestive) heart failure; I11.0 Hypertensive heart disease with heart failure
CPT/HCPCS: 36415; 80048; 83735; 85007; 85027

== ENCOUNTER 2024-07-12 07:38 | Outpatient (RCR) | payer MEDICARE, SELFPAY ==
[2024-07-12 09:28] VITALS: BP 151/56; PULSE 60; TEMP 36.2; O2SAT 97
[2024-07-12 09:42] LABS: Hematocrit 24.4 % (42.0-54.0); Hemoglobin 7.9 g/dL (14.0-18.0)
[2024-07-12] MEDS: DIPHENHYDRAMINE HCL 25 MG CAPSULE PO (10:36)
[2024-07-12] MEDS: ACETAMINOPHEN 325 MG TABLET 650 MG PO (10:36)
[2024-07-12 11:03] VITALS: BP 151/56; PULSE 60; TEMP 36.2; O2SAT 97
[2024-07-12 11:15] VITALS: BP 142/56; PULSE 58; TEMP 36.8
[2024-07-12 12:15] VITALS: BP 154/68; PULSE 62; TEMP 36.6
[2024-07-12] MEDS: BUMETANIDE 1 MG/4 ML VIAL 0.5 MG IVP (12:41)
--- NOTE | 2024-07-12 12:53 | PC.NURSE ---
1100 prbc's initiated. via IV site RACF. Instructed on s/s of reaction ie chest pain itching shortness of breath, back/ flank chills, etc, to notify staff. verbalizes understanding.
--- NOTE | 2024-07-12 12:54 | PC.NURSE ---
1115 tolerating prbc's without any s/s of reaction. rate increased to 250 ml hr.
--- NOTE | 2024-07-12 15:19 | PC.NURSE ---
1220 prbc's infused, line flushed with ns.
--- NOTE | 2024-07-12 15:20 | PC.NURSE ---
1241 IV bumex as ordered, ambulated to bathroom. IV dc'd catheter intact cottonball applied. secured with tape. tolerated well. . 1245 released ambulatory
== END 2024-07-20 10:49 | disposition home or self-care (01) ==
LOC: LAB 07:38
PROVIDERS: PCP Family Medicine; Visit Provider Physician Assistant Medical
DX: D64.9 Anemia, unspecified (principal); K92.2 Gastrointestinal hemorrhage, unspecified; C91.10 Chronic lymphocytic leukemia of B-cell type not having achieved remission
CPT/HCPCS: 36415; 36430; 85014; 85018; 86850; 86900; 86901; 86923; 96374; P9016

== ENCOUNTER 2024-09-16 15:17 | Outpatient (RCR) | payer MEDICARE, SELFPAY | END 2024-10-20 06:50 | disposition home or self-care (01) | LOC: PT 15:17 | PROVIDERS: PCP Family Medicine; Visit Provider Psychiatry & Neurology Neurology | DX: R26.81 Unsteadiness on feet (principal) | CPT/HCPCS: 97110; 97112; 97162; 97530 ==

== ENCOUNTER 2024-10-11 12:30 | Emergency (ER) | payer MEDICARE, SELFPAY ==
[2024-10-11 12:49] VITALS: BP 141/51; PULSE 64; TEMP 36.6; O2SAT 96; BMI 24.3
--- NOTE | 2024-10-11 13:25 | ED_ITS ---
Review of Systems ROS Constitutional Denies: fever or chills Ears, nose, mouth, and throat Denies: throat pain or nasal congestion Cardiovascular Denies: chest pain Respiratory Denies: shortness of breath or cough Gastrointestinal Denies: abdominal pain, nausea or vomiting Musculoskeletal Denies: back pain or neck pain Integumentary/Breast Denies: rash Neurological Denies: headache, numbness in extremities or weakness in extremities Hematologic/Lymphatic Reports: easy bruising and easy bleeding HPI HPI - Trauma General Chief Complaint: Trauma Stated Complaint: FALL R RIB PAIN Time Seen by Provider: 10/11/24 13:08 Source: patient Mode of arrival: walk-in History of Present Illness HPI narrative: Patient is a pleasant 79-year-old man who presents to the emergency department with his for evaluation of right anterior rib pain. Patient states he has had ongoing issues with losing his balance and falling, his states his doctor is well aware of this and they are working him up for it. He had a fall 5 days ago at home where he lost his balance and hit his right side on the floor. He complains of persistent right anterior rib pain. He denies hitting his head and has not had any loss of consciousness. He has no persistent headache, neck pain or back pain. He is able to walk without difficulty today. He denies the need for any pain medication at this time. He is on aspirin and Plavix. Related Data Home Medications ?Medication ?Instructions ?Recorded ?Confirmed amlodipine 10 mg tablet 10 mg PO QAM 12/27/23 06/09/24 aspirin 81 mg chewable tablet 1 tab PO QAM 12/27/23 06/09/24 insulin glargine 100 unit/mL 52 unit subcut DAILY 12/27/23 06/09/24 subcutaneous solution (Lantus U-100 Insulin) metformin 500 mg tablet,extended 500 mg PO DAILY 12/27/23 06/09/24 release 24 hr rosuvastatin 20 mg tablet 20 mg PO QPM 12/27/23 06/09/24 bumetanide 1 mg tablet 1 mg PO DAILY 06/09/24 06/09/24 losartan 50 mg tablet 50 mg PO DAILY 06/09/24 06/09/24 primidone 50 mg tablet 50 mg PO Q8H 06/09/24 06/09/24 rivaroxaban 20 mg tablet 20 mg PO DAILY 06/09/24 06/09/24 Previous Rx's ?Medication ?Instructions ?Recorded tramadol 50 mg tablet 50 mg PO Q6H PRN pain 3 days #12 10/11/24 tabs Allergies Allergy/AdvReac Type Severity Reaction Status Date / Time No Known Drug Allergies Allergy Verified 12/27/23 13:17 Opioid HPI Opioid Management Most Recent Pain and Opioid Data: No Data to Display PFSH PFS Medical History (Updated 10/11/24 @ 14:26 by BAKARI Altamirano) Bradycardia ?R00.1 - Bradycardia, unspecified (ICD-10) Diabetes ?E11.9 - Type 2 diabetes mellitus without complications (ICD-10) Surgical History (Updated 12/27/23 @ 14:28 by Mary Sherwood) H/O heart artery stent ?Z95.5 - Presence of coronary angioplasty implant and graft (ICD-10) Social History Little interest or pleasure in doing things: not at all Feeling down, depressed, or hopeless: not at all Exam Narrative Exam Narrative: Gen.: Awake, alert, in no distress Head: Normocephalic, atraumatic ENT: Moist mucous membranes, no facial or dental injury Respiratory: No respiratory distress, lungs clear bilaterally, no ecchymosis or crepitance of the right anterior chest wall with mild tenderness to palpation of the anterolateral ribs inferiorly. Cardio: Regular rate and rhythm Gastrointestinal: Abdomen is soft, nondistended and nontender to palpation Extremities: Moves extremities equally, no injuries noted Psych: Normal mood and affect Neuro: No focal neuro deficit Skin: Warm, dry, intact Constitutional Vital Signs, click to edit/add: Last Vital Signs Temp 97.8 F 10/11/24 12:49 Pulse 64 10/11/24 12:49 Resp 18 10/11/24 12:49 BP 141/51 10/11/24 12:49 Pulse Ox 96 10/11/24 12:49 O2 Del Method Room Air 10/11/24 12:49 Course Vital Signs Vital signs: Vital Signs Temperature 97.8 F 10/11/24 12:49 Pulse Rate 64 10/11/24 12:49 Respiratory Rate 18 10/11/24 12:49 Blood Pressure 141/51 10/11/24 12:49 Pulse Oximetry 96 10/11/24 12:49 Oxygen Delivery Method Room Air 10/11/24 12:49 Temperature 97.8 F 10/11/24 12:49 Pulse Rate 64 10/11/24 12:49 Respiratory Rate 18 10/11/24 12:49 Blood Pressure 141/51 10/11/24 12:49 Pulse Oximetry 96 10/11/24 12:49 Oxygen Delivery Method Room Air 10/11/24 12:49 MDM - Trauma MDM Narrative Medical decision making narrative: Patient is resting comfortably in no distress on reevaluation. He has no complaints of headache, neck pain. He is ambulatory. He declined pain medi cation in the ER. He and his state they just wanted imaging to make sure his ribs are okay. CT of the chest without contrast shows no evidence of rib fracture, pneumothorax or hemothorax. Tramadol given for home as needed. Patient would like to participate in physical therapy this week, he was instructed to follow activity as tolerated. Injury was 5 days ago and he has no other focal medical complaints or issues. His issues with balance and frequent falls are being evaluated by his primary care provider. They should return to the emergency department if symptoms change or worsen SUPERVISED APC VISIT, PHYSICIAN ATTESTATION: Based on the medical record the care appears appropriate. ? Medical Records Attestation: I reviewed the patient's medical records. Imaging Data CT scan - chest: Attestation: I have reviewed the pertinent imaging results. Discharge Plan Discharge Chief Complaint: Trauma Clinical Impression: Chest wall contusion, Frequent falls Patient Disposition: Home, Self-Care Time of Disposition Decision: 14:26 Condition: Good Prescriptions / Home Meds: New tramadol 50 mg tablet 50 mg PO Q6H PRN (Reason: pain) 3 Days Qty: 12 0RF Rx Instructions: DX: S20.2 No Action bumetanide 1 mg tablet 1 mg PO DAILY losartan 50 mg tablet 50 mg PO DAILY primidone 50 mg tablet 50 mg PO Q8H rivaroxaban 20 mg tablet 20 mg PO DAILY Rx Instructions: must administer with evening meal amlodipine 10 mg tablet 10 mg PO QAM aspirin 81 mg tablet,chewable 1 tab PO QAM metformin 500 mg tablet extended release 24 hr 500 mg PO DAILY rosuvastatin 20 mg tablet 20 mg PO QPM insulin glargine [Lantus U-100 Insulin] 100 unit/mL solution 52 unit SUBCUT DAILY Print Language: Divehi Instructions: Rib Contusion (ED) Referrals: Cruzito Eid MD [Primary Care Provider] - 1 week
[2024-10-11 14:39] VITALS: PULSE 86; O2SAT 98
== END 2024-10-11 14:40 | disposition home or self-care (01) ==
PROVIDERS: Emergency Provider Student in an Organized Health Care Education/Training Program; PCP Family Medicine
DX: S20.211A Contusion of right front wall of thorax, initial encounter (principal); W18.39XA Other fall on same level, initial encounter; Z91.81 History of falling; Z79.82 Long term (current) use of aspirin; Z79.02 Long term (current) use of antithrombotics/antiplatelets; Z95.5 Presence of coronary angioplasty implant and graft
CPT/HCPCS: 71250; 99284

== ENCOUNTER 2024-11-10 11:42 | Outpatient (OUT) | payer MEDICARE, SELFPAY ==
[2024-11-10 12:28] LABS: Estimated Average Glucose 186 mg/dL; Glycohemoglobin A1C 8.1 % (4.5-6.2)
== END 2024-11-10 11:43 | disposition home or self-care (01) ==
LOC: LAB 11:44
PROVIDERS: PCP Family Medicine; Visit Provider Family Medicine
DX: E11.65 Type 2 diabetes mellitus with hyperglycemia (principal); Z79.4 Long term (current) use of insulin
CPT/HCPCS: 36415; 83036

== ENCOUNTER 2025-01-26 13:25 | Outpatient (OUT) | payer MEDICARE, SELFPAY ==
--- OUTSIDE RECORDS SUMMARY | 2024-08-30 09:00 | XMS_ITS ---
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 Name Role Phone Cruzito Eid MD Primary Care Provider Maik cormier James Wilkerson Marlene [phone] Allergies No Known Allergies REASON FOR VISIT 1yr f/u Medications Medication SIG (Take, Route, Frequency, Duration) Notes Start Date End Date Status Brilinta Not-Taking amLODIPine Besylate 10 MG 1 tablet Orally Once a day for 30 days Active Aspirin 81 MG 1 tablet Orally Once a day Active Bumetanide 1 MG 1 tablet Orally Once a day Active Centrum Silver Ultra Mens Active Pantoprazole Sodium 40 MG 1 tablet 1/2 to 1 hour before morning meal Orally Once a day Active Gabapentin 300 MG 1 capsule Orally Three a day Active Losartan Potassium 50 MG 1 tablet Orally Once a day Active Potassium Gluconate 595 (99 K) MG 1 tablet Orally Once a day Active Primidone 50 MG 1 tablet Orally Once a day Active Super [place]ise 3 Active Resveratrol 250 MG as directed Orally Active Pravastatin Sodium N ot-Taking Plavix 75 mg 1 tablet QD Acti ve CPAP - mask, headgear, chinstrap, heated tubing, heated humidifier, filters, all supplies needed PRN for 365 days 08/30/2024 Active Magnesium 250 MG 2 tablet with a meal Orally Once a day Active glipiZIDE 10 MG 1 tablet 30 minutes before breakfast Orally Once a day for 30 day(s) Active Carvedilol 3.125 MG 1 tablet with food Orally Twice a day for 30 days Active Zinc Active Vitamin D3 Active Vitamin C Active Rosuvastatin Calcium 40 MG 1 tablet Orally Once a day Active metFORMIN HCl 500 MG 1 tablet with a meal Orally Once a day for 30 day(s) Active Lisinopril 20 MG 1 tablet Orally Active Lantus 100 unit/mL 0 vial Subcutaneous 1X Active CPAP Supplies -- Mask and Tubing Size mask , headgear, tubings, heated humidifier, filters and water chamber. Lifetime need. 08/29/2023 Active CPAP Supplies -- Mask and Tubing - Daily for 365 days Size mask , headgear, tubings, heated humdifier, filters and water chamber. Lifetime need. Active CPAP - use as directed - QHS for 365 days Active Co Q 10 Active Calcium Active Vital Signs Weight 164 lbs 08/30/2024 Height 68 in 08/30/2024 Blood pressure systolic 122 mm Hg 08/30/19 25 Blood pressure diastolic 62 mm Hg 025 Heart Rate 71 /min 08/30/2024 BMI 24.93 kg/m2 08/30/2024 Oximetry 93 % 08/30/2024 Procedures Procedure Date Ordered Date Performed Result Body Sit e Bipap Re Titration 08/30/2024 N/A Encounters Encounter Location Date Provider Diagnosis [facility] [address] [place] [address] 08/30/2024 James Wilkerson CSA (central sleep apnea) G47.31 ; Severe obstructive sleep apnea G47.33 ; Periodic limb movement disorder G47.61 and Abnormal REM sleep G47.52 Assessments Encounter Date Diagnosis (ICD Code) Assessment Notes Treatment Notes Treatment Clinical Notes Section Notes 08/30/2024 CSA (central sleep apnea) (ICD-10 - G47.31) Continue on auto SV with a maximum EPAP of 11, a minimum EPAP of 7. A maximum PS of 10, a minimum PS of 0. The EPR set at 3. Rate set at auto Patient will contact [facility] scheduling at [phone] 08/30/2024 Severe obstructive sleep apnea (ICD-10 - G47.33) Continue on BiPAP auto SV with a minimum EPAP of 7 centimeters, a maximum EPAP of 11 centimeters, a minimum PS of 0 maximum PS of 10. He'll be issued a prescription for new CPAP supplies for 1 year. It will be faxed to his DME, [facility] in [place]. . Sleep apnea material was printed 08/30/2024 Periodic limb movement disorder (ICD-10 - G47.61) Patient does not need treatment of his PLMD 08/30/2024 Abnormal REM sleep (ICD-10 - G47.52) The movements in sleep not severe enough to place the patient on clonazepam. He'll continue on melatonin 10 milligrams at bedtime Plan Of Treatment Medication Medication Name Sig Start Date Stop Date Notes CPAP - mask, headgear, chin strap, heated tubing, heated humidifier, filters, all supplies needed PRN for 365 days 08/30/2024 Treatment Notes Assessment Notes CSA (central sleep apnea) Continue on auto SV with a maximum EPAP of 11, a minimum EPAP of 7. A maximum PS of 10, a minimum PS of 0. The EPR set at 3. Rate set at auto Patient will contact [facility] [employer] scheduling at [phone] Severe obstructive sleep apnea Continue on BiPAP auto SV with a minimum EPAP of 7 centimeters, a maximum EPAP of 11 centimeters, a minimum PS of 0 maximum PS of 10. He'll be issued a prescription for new CPAP supplies for 1 year. It will be faxed to his DME, [facility] in [place]. . Sleep apnea material was printed Periodic limb movement disorder Patient does not need treatment of his PLMD Abnormal REM sleep The movements in sle ep not severe enough to place the patient on clonazepam. He'll continue on melatonin 10 milligrams at bedtime Pending Test Test Name Order Date Bipap Re Titration 08/30/2024 Next Appt Details Follow Up: 2 months after ge tting the pressures changed on the machine,prn, Reason: Progress Notes * Cedric ROJASDOB:1945 (79 yo M)Acc No.[id number]:08/30/2024 Follow Up Patient: Cedric BRANDT Provider: Davonte Wilkerson. :1945 A ge:79 Y S ex:Male Date:08/30/2024 Address:[address] [place], [place] [id number] Pcp:Cruzito Eid MD Check In:12:42 PM Donell O ut:01:26 PM EST Subjective: * Chief Complaints: * 1 yr f/u * HPI: G eneral: Cedric is a 79-year-old male returns to clinic after 1 year for treatment of obstructive sleep apnea and central sleep apnea. He also has a history of periodic limb movement disorder. He also had some evidence of a loss of atonia during REM. He presents with a chief complaint, , over the last month or so I have noticed I been having more events on my machine. Sleep history: The the patient was first diagnosed with apnea in March of 2010 with an AHI of 54 events per hour, in the supine 70 events per hour. His is lowest saturation was down to 75%. He was placed on CPAP at 16 cm of water and then developed aerophagia. We did a BiPAP titration and was placed on BiPAP of 15/10 cmH2O. on October 02, 2020. The patient had a split-night study that showed an AHI of 76 events per hour and had the emergence of complex sleep apnea and was switched to BiPAP auto SV. He was then taken to a maximum pressure of 23 cm and EPAP max of 11 and EPAP min of 7 a maximum PS of 10 and minimum PS of 0. The rate was set on auto. He also had significant periodic limb movement disorder. . We downloaded his machine. He used it 97% of the nights with 97% compliant. He is actually 100% compliant. He did not download last night's data. He is averaging 6 hours and 47 minutes night and the machine on BiPAP auto SV with a minimum EPAP of 7, maximum EPAP of 11 and minimum PS of 0, maximum PS of 10. He has an AHI of 12.7 events per hour of this is elevated has numerous nights where the events are approaching 20 events per hour which is extremely high. His 95th percentile leak is 31.8 L. He has several nights where the leak is large. He needs a BiPAP auto SV retitration and we also need to make sure that the mask is not leaking in the sleep lab. They may have to change the type of mask that he is using. He is still benefiting from the use of machine but needs a retitration. He is also developed excessive daytime sleepiness and rates his [place] as [id number] equals 13. He was advised not to drive or operate equipment when sleepy. He will be issued a prescription for new CPAP supplies for 1 year. It will be faxed to his DME [facility] in [place]. I will fax a prescription for the BiPAP auto SV retitration to [facility]. The patient will call [facility] scheduling and asked to be seen at [place] He also had a questionable loss of atonia and REM. He has not had any movements during REM. He has been taking melatonin 10 mg about an hour before bedtime. His symptoms are not severe enough to warrant clonazepam. * Active Problem List G47.31 Central sleep apnea syndrome Modified On:08/21/2016/U Status:confirmed F51.12 Insufficient sleep s yndrome Modified On:08/04/2019/U Status:confirmed G47.33 Obstructive sleep ap fina syndrome, severe Modified On:08/04/2019U Status:confirmed G47.33 Severe obstructive s leep apnea Modified On:08/29/2023U Status:confirmed G47.31 CSA (central sleep a pnea) Modified On:08/29/2023U Status:confirmed G47.34 Hypoxia, sleep relat ed Modified On:08/09/2022/U Status:confirmed G47.61 Periodic limb moveme nt disorder Modified On:08/29/2023U Status:confirmed G47.52 Abnormal REM sleep Modified On:08/29/2023 Status:confirmed * Medical History: * Surgical History: * Hospitalization/Major Diagno stic Procedure: * Medications: T akingamLODIPine Besylate 10 MG Tablet 1 tablet Orally Once a day Aspirin 81 MG Tablet Delayed Release 1 tablet Orally Once a day Bumetanide 1 MG Tablet 1 tablet Orally Once a day Calcium Carvedilol 3.125 MG Tablet 1 tablet with food Orally Twice a day Centrum ExpertFlyer Mens Co Q 10 CPAP - use as directed - [facility] CPAP Supplies -- -- Mask and Tubing - Daily , Notes to Pharmacist: Size mask, headgear, tubings, heated humdifier, filters and water chamber. Lifetime need.CPAP Supplies -- -- Mask and Tubing , Notes to Pharmacist: Size mask, headgear, tubings, heated humidifier, filters and water chamber. Lifetime need.Gabapentin 300 MG Capsule 1 capsule Orally Three a day glipiZIDE 10 MG Tablet 1 tablet 30 minutes before breakfast Orally Once a day Lantus(Insulin Glargine) 100 unit/mL Solution 0 vial Subcutaneous 1X Lisinopril 20 MG Tablet 1 tablet Orally Losartan Potassium 50 MG Tablet 1 tablet Orally Once a day Magnesium 250 MG Tablet 2 tablet with a meal Orally Once a day metFORMIN HCl 500 MG Tablet 1 tablet with a meal Orally Once a day Pantoprazole Sodium 40 MG Tablet Delayed Release 1 tablet 1/2 to 1 hour before morning meal Orally Once a day Plavix 75 mg tablet 1 tablet QD Potassium Gluconate 595 (99 K) MG Tablet 1 tablet Orally Once a day Primidone 50 MG Tablet 1 tablet Orally Once a day Resveratrol 250 MG Capsule as directed Orally Rosuvastatin Calcium 40 MG Tablet 1 tablet Orally Once a day Super Boise 3 Vitamin C Vitamin D3 Zinc Taking amLODIPine Besylate 10 MG Tablet 1 tablet Orally Once a day Taking Aspirin 81 MG Tablet Delayed Release 1 tablet Orally Once a day Taking Bumetanide 1 MG Tablet 1 tablet Orally Once a day Taking Calcium Taking Carvedilol 3.125 MG Tablet 1 tablet with food Orally Twice a day Taking Centrum Silver Ultra Mens Taking Co Q 10 Taking CPAP - use as directed - QHS Taking CPAP Supplies -- -- Mask and Tubing - Daily , Notes to Pharmacist: Size mask, headgear, tubings, heated humdifier, filters and water chamber. Lifetime need.Taking CPAP Supplies -- -- Mask and Tubing , Notes to Pharmacist: Size mask, headgear, tubings, heated humidifier, filters and water chamber. Lifetime need.Taking Gabapentin 300 MG Capsule 1 capsule Orally Three a day Taking glipiZIDE 10 MG Tablet 1 tablet 30 minutes before breakfast Orally Once a day Taking Lantus(Insulin Glargine) 100 unit/mL Solution 0 vial Subcutaneous 1X Taking Lisinopril 20 MG Tablet 1 tablet Orally Taking Losartan Potassium 50 MG Tablet 1 tablet Orally Once a day Taking Magnesium 250 MG Tablet 2 tablet with a meal Orally Once a day Taking metFORMIN HCl 500 MG Tablet 1 tablet with a meal Orally Once a day Taking Pantoprazole Sodium 40 MG Tablet Delayed Release 1 tablet 1/2 to 1 hour before morning meal Orally Once a day Taking Plavix 75 mg tablet 1 tablet QD Taking Potassium Gluconate 595 (99 K) MG Tablet 1 tablet Orally Once a day Taking Primidone 50 MG Tablet 1 tablet Orally Once a day Taking Resveratrol 250 MG Capsule as directed Orally Taking Rosuvastatin Calcium 40 MG Tablet 1 tablet Orally Once a day Taking Super [place]ise 3 Taking Vitamin C Taking Vitamin D3 Taking Zinc Not-Taking/PRNBrilinta Pravastatin Sodium Medication List reviewed and reconciled with the patientNot-Taking/PRN Brilinta Not-Taking/PRN Pravastatin Sodium Medication List reviewed and reconciled with the patient * Allergies: N .K.D.A.no[Allergies Verified] Objective: * Vitals: W t:164lbs, Ht: 68 in, BP:sittin/62mm Hg, HR:71/min, BMI:24.93Index, Oxygen sat %:Room Air:93%, Ht-cm: 172.72 cm, Wt-k.39 kg. Assessment: * Assessment: 1. C SA (central sleep apnea) - G47.31 (Primary) 2 . S evere obstructive sleep apnea - G47.33 3 . P eriodic limb movement disorder - G47.61 ?4. A bnormal REM sleep - G47.52 Plan: * Treatment: Notes: Continue on auto SV with a maximum EPAP of 11, a minimum EPAP of 7. A maximum PS of 10, a minimum PS of 0. The EPR set at 3. Rate set at auto Patient will contact [facility] at [phone]??2.?Severe obstructive sleep apnea?Procedure: Bipap Re Titration* James Wilkerson 08/30/2024 01:17:39 PM EST >Patient needs an immediate BiPAP auto SV retitration. Also try to find a mask that does not leak and control the leak. He wants to do this at [facility] . He will not need a sleep aid. Notes: Continue on BiPAP auto SV with a minimum EPAP of 7 centimeters, a maximum EPAP of 11 centimeters, a minimum PS of 0 maximum PS of 10. He'll be issued a prescription for new CPAP supplies for 1 year. It will be faxed to his DME, [facility] in [place]. . Sleep apnea material was printed??3.?Periodic limb movement disorder?Procedure: Bipap Re Titration* James Wilkerson 08/30/2024 01:17:39 PM EST >Patient needs an immediate BiPAP auto SV retitration. Also try to find a mask that does not leak and control the leak. He wants to do this at [facility] . He will not need a sleep aid. Notes: Patient does not need treatment of his PLMD??4.?Abnormal REM sleep?Procedure: Bipap Re Titration* James Wilkerson 08/30/2024 01:17:39 PM EST >Patient needs an immediate BiPAP auto SV retitration. Also try to find a mask that does not leak and control the leak. He wants to do this at [facility] . He will not need a sleep aid. Notes: The movements in sleep not severe enough to place the patient on clonazepam. He'll continue on melatonin 10 milligrams at bedtime?? * Procedure Codes: * Preventive Medicine: Screenings/Counseling: B [place] ACTION PLAN A chucky Normal BMI Follow-up D ietary management education, guidance, and counseling. F ALL RISK SCREENING F all Risk Assessment: N o falls in the past year, A re you afraid of falling? N o. T OBACCO ACTION PLAN Exclusion: F ORMER SMOKER- 2014. * Follow Up: 2 months after getting the pressures changed on the machine,prn * * Sign off status: Completed Visit Status: C HK (Check Out) true * Provider: Davonte Ng MD Date: 0 08/30/2024 Generated for Billy gonzalez/Adali/Toshaitting on: 0 01/26/2025 01:29 PM EDT History and Physical Notes * HPI (History of Present Illness) Category Sub-Category Detail Notes Category Not es General Cedric is a 79-year-old male returns to clinic after 1 year for treatment of obstructive sleep apnea and central sleep apnea. He also has a history of periodic limb movement disorder. He also had some evidence of a loss of atonia during REM. He presents with a chief complaint, , over the last month or so I have noticed I been having more events on my machine. Sleep history: The the patient was first diagnosed with apnea in March of 2010 with an AHI of 54 events per hour, in the supine 70 events per hour. His is lowest saturation was down to 75%. He was placed on CPAP at 16 cm of water and then developed aerophagia. We did a BiPAP titration and was placed on BiPAP of 15/10 cmH2O. on October 02, 2020. The patient had a split-night study that showed an AHI of 76 events per hour and had the emergence of complex sleep apnea and was switched to BiPAP auto SV. He was then taken to a maximum pressure of 23 cm and EPAP max of 11 and EPAP min of 7 a maximum PS of 10 and minimum PS of 0. The rate was set on auto. He also had significant periodic limb movement disorder. . We downloaded his machine. He used it 97% of the nights with 97% compliant. He is actually 100% compliant. He did not download last night's data. He is averaging 6 hours and 47 minutes night and the machine on BiPAP auto SV with a minimum EPAP of 7, maximum EPAP of 11 and minimum PS of 0, maximum PS of 10. He has an AHI of 12.7 events per hour of this is elevated has numerous nights where the events are approaching 20 events per hour which is extremely high. His 95th percentile leak is 31.8 L. He has several nights where the leak is large. He needs a BiPAP auto SV retitration and we also need to make sure that the mask is not leaking in the sleep lab. They may have to change the type of mask that he is using. He is still benefiting from the use of machine but needs a retitration. He is also developed excessive daytime sleepiness and rates his [place] as [id number] equals 13. He was advised not to drive or operate equipment when sleepy. He will be issued a prescription for new CPAP supplies for 1 year. It will be faxed to his DME [facility] in [place]. I will fax a prescription for the BiPAP auto SV retitration to [facility]. The patient will call [facility] scheduling and asked to be seen at [place] He also had a questionable loss of atonia and REM. He has not had any movements during REM. He has been taking melatonin 10 mg about an hour before bedtime. His symptoms are not severe enough to warrant clonazepam.
--- OUTSIDE RECORDS SUMMARY | 2024-09-07 04:23 | XMS_ITS ---
Author Organization [facility] in [place] Address [address] [place] [address] Care Team Providers Care Brand Mgr Name Role Phone Cruzito Eid MD Primary Care Provider Unavailab James Thompson Unavailable [phone] REASON FOR VISIT BIPAP Encounters Encounter Location Date Provider Diagnosis [facility] [address] [place] [address] 09/07/2024 James Wilkerson Plan Of Treatment No Information Progress Notes * Cedric ROJASDOB:1945 (79 yo M)Acc No.[id number]:09/07/2024 Patient: Cedric BRANDT :1945 A ge:79 Y S ex:Male Address:[address] [place] [address], [address] * true * Date: Generated for Hireni lisa/Faangleg/eTransmitting on: 0 01/26/2025 01:28 PM EDT
--- OUTSIDE RECORDS SUMMARY | 2025-01-26 13:29 | XMS_ITS | Clinical Summary ---
Author Organization Chrends tem Address [id number] [address] [place] [address] Care Team Providers Care Chief Engineer Name Role Phone Cruzito Eid MD Primary Care Provider [phone] Allergies No known active allergies Medications metFORMIN XR (GLUCOPHAGE-XR) 500 mg 24 hr tablet Take 1 tablet (500 mg total) by mouth in the morning. 9 Active insulin glargine,hum.re c.anlog (INSULIN GLARGINE SUBQ) Inject 54 Units under the skin daily. Lantus Active coenzyme Q10 100 mg capsule Take 1 capsule (100 mg total) by mouth in the morning. Active cholecalciferol 1,000 units tablet Take 2 tablets (2,000 Units total) by mouth in the morning. Active gabapentin (NEURONTIN) 300 mg capsule Take 1 capsule (300 mg total) by mouth 3 (three) times a day. 4 Active fvppjmiu-ltgt-E A-calcium &mins (THERAGRAN-M) 9 mg iron-400 mcg tablet Take 1 tablet by mouth in the morning. Active potassium gluconate 595 mg (99 mg) tablet extended release Take 1 tablet (595 mg total) by mouth in the morning. Active amLODIPine (NORVASC) 10 mg tablet take 1 tablet by mouth in the morning 90 tablet 1 4 Active aspirin 81 mg Take 1 tablet (81 mg total) by mouth in the morning. Active clopidogreL (PLAVIX) 75 mg tablet Take 1 tablet (75 mg total) by mouth in the morning. Active apixaban (ELIQUIS) 5 mg tablet Take 1 tablet (5 mg total) by mouth in the morning and 1 tablet (5 mg total) before bedtime. 60 tablet 4 Active Additional Information Patient not taking.Reported on 09/06/2024 rosuvastatin (CRESTOR) 20 mg tablet Take 1 tablet (20 mg total) by mouth nightly. 30 tablet 4 Active bumetanide (BUMEX) 1 mg tablet Take 1 tablet (1 mg total) by mouth daily. 30 tablet 4 Active losartan (COZAAR) 50 mg tablet Take 1 tablet (50 mg total) by mouth in the morning. 30 tablet 4 Active Active Problems Problem Noted Date Diagnosed Date CKD stage 3b, GFR 30-44 ml/min 04/28/2024 Acute respiratory failure with hypoxia and hyper capnia 04/26/2024 New onset atrial fibrillation 04/26/2024 Acute on chronic heart failu re with preserved ejection fraction 04/26/2024 NSTEMI (non-ST elevated myocardial infarction) 0 04/05/2023 Asymptomatic bradycardia 11/12/2022 CLL (chronic lymphocytic leukemia) 06/27/2022 Overview (04/26/2024): Last Assessment & Plan: Follow with oncology Last Assessment & Plan: Follow with oncology Mixed hyperlipidemia 10/20/2020 PAD (peripheral artery disease) 10/21/2019 Claudication 10/21/2019 Bilateral carotid artery stenosis 10/21/2019 Status post angioplasty with stent 08/09/2019 Overview (08/09/2019): Drug-eluting stent to the Obtuse marginal branch and RCA in 2016 Coronary artery disease invo lving la posta coronary artery of la posta heart without angina pectoris Abnormal result of cardiovas cular function study, unspecified Hypertension Type 2 diabetes mellitus wit h diabetic peripheral angiopathy without gangrene Encounters Date Type Department Care Team Description 11/12/2024 Orders Only [facility] [address] [place] [address] Jeimy Teixeira, [employer] OPERATOR CKD stage 3b, GFR 30-44 ml/min ([facility]) (Primary Dx) 10/27/2024 Telephone [facility] [address] [place] [address] Patricia Alston LPN from Last 3 Months Immunizations Immunization Administration Dates Next Due Influenza High Dose Preservative Free IM 020,04/01/2019,05/13/2018 Influenza Vaccine, Quadrivalent, Adjuvanted 07/21 Influenza, High-dose, Quadrivalent 04/02/2022 Influenza, Injectable, Quadrivalent 05/28/2017 Pneumococcal Conjugate 13-Valent 06/24/2018 Family History Medical History Relation Name Comments Brain cancer Daughter Diabetes Father Lung cancer Father Diabetes Mother Relation Name Status Comments Daughter Alive Father Mother Social History Tobacco Use Types Packs/Day Years Used Date Smoking Tobacco: Every Day Cigarettes 0.5 55.9 Started: 1964; Last attempted to quit: 2019 Smokeless Tobacco: Never Tobacco Cessation:Ready to Q uit: Not Asked; Counseling Given: Not Answered Comments:4-5 cigarettes per day or at least 1 pack a week Alcohol Use Standard Drinks/Week Comments Not Currently 0 (1 standard drink = 0.6 oz pur e alcohol) 1 drink a year at least [facility] [employer] Answer Date Recorded In the past 12 months has [employer], gas, oil, or water [employer] threatened to shut off services in your home? No 04/27/2024 AUDIT-C Answer Date Recorded Q1: How often do you have a drink containing alcohol? Never 04/27/2024 Q2: How many drinks containi ng alcohol do you have on a typical day when you are drinking? Patient does not drink Q3: How often do you have si x or more drinks on one occasion? Never 04/27/2024 Overall Financial Resource Strain (CARDIA) Answe r Date Recorded How hard is it for you to pa y for the very basics like food, housing, medical care, and heating? Not hard at all 04/05/2023 PHQ-2 Answer Date Recorded Total Score 0 04/27/2024 PRAPARE - Transportation Answer Date Re corded In the past 12 months, has l ack of transportation kept you from medical appointments or from getting medications? No 02/2024 In the past 12 months, has l ack of transportation kept you from meetings, work, or from getting things needed for daily living? No 04/27/2024 Housing Instability Answer Date Recorde d Are you worried or concerned that in the next two months you may not have stable housing that you own, rent or stay in as a part of a household? No 04/27/2024 Childcare Answer Date Recorded Childcare Unknown 12/30/2018 Employment Answer Date Recorded Employment Unknown 12/30/2018 Hunger Screening Answer Date Recorded Within the past 12 months we worried whether our food would run out before we got money to buy more. Never True 04/27/2024 Within the past 12 months th e food we bought just didn't last and we didn't have money to get more. Never True 04/27/2024 Purpose - Life Answer Date Recorded Purpose and direction in life Unknown Sex and Gender Information Value Date Recorded Sex Assigned at Male 04/26/2024 4:28 AM EDT Legal Sex Male 11:28 AM EDT Gender Identity Male 04/26/2024 4:28 AM EDT Sexual Orientation Straight 04/26/2024 4: 28 AM EDT Last Filed Vital Signs Vital Sign Reading Time Taken Comments Blood Pressure 140/55 04/29/2024 12:04 PM EDT Pulse 52 04/29/2024 12:04 PM EDT Temperature 36.8 C (98.2 F) 04/29/2024 12:04 PM EDT Respiratory Rate 16 04/29/2024 12:04 PM EDT Oxygen Saturation 91% 04/29/2024 12:04 PM EDT Inhaled Oxygen Concentration - - Weight 72.6 kg (160 lb) 09/06/2024 8:19 PM EST Height 172.7 cm (5' 8 ) 09/06/2024 8:19 PM EST Body Mass Index 24.33 09/06/2024 8:19 PM EST Plan of Treatment Health Maintenance Due Date Last Done Comments Tobacco Counseling 1945 DTaP,Tdap and Td Vaccines (1 - Tdap) 1966 Zoster (Shingles) Vaccine (1 of 2) 1966 Fall Risk Screening 2012 COVID-19 Vaccine (7 - Modern a risk ) 11/10/2024 05/12/2024, 08/02/2023, 04/02/2022, Additional history exists Influenza Vaccine 03/21/2025 05/12/2024, , 04/02/2022, Additional history exists Depression Screening 04/27/2025 04/27/2024 Tobacco Screening 04/27/2025 04/27/2024 Colonoscopy 12/27/2027 12/26/2022, 06/02/2023, 09/21/2012, Additional history exists Abdominal Aortic Aneurysm (A AA) Screen Completed 04/28/2024 Goals Goal Patient Goal Type Associated Problems Recent Progress Patient-Stated? Author <enter goal here> General Yes Soha Velarde RN Note: Evaluation of progress towards goal: Patient plans for a safe discharge home self care with spouse support. Medical Devices Implanted Type Area Skid Machine Operator Device Identifier Shelf Expiration Date Model / Serial / Lot Mesh [id number] Progrip Srg - Sna - [id number] Implanted:Qty : 1 on 11/06/2021 by Chino Raza DO at [facility] 12/19/2023 [id number] / NA / [id number] System Cor Stnt 3.0mm X 18mm 145cm Xience [employer] Mtlnk Adriano - [id number] Implanted:Qty : 1 on 04/07/2023 by Rafa Roman MD at [facility] Stent N/A: Arterial [employer] [id number] 11/18/2025 [id number] System Cor Stnt 3.0mm X 18mm 145cm [employer]ience [employer] Mtlnk Adriano - [id number] Implanted:Qty : 1 on 04/07/2023 by Rafa Roman MD at [facility] Stent N/A: Arterial [employer] [id number] 09/24/2025 [id number] System Cor Stnt 3.5mm X 28mm 145cm [employer]ience [employer] Adriano - [id number] Implanted:Qty : 1 on 04/07/2023 by Rafa Roman MD at [facility] Stent N/A: Arterial [employer] [id number] 11/11/2025 [id number] / / [id number] System Cor Stnt 3.5mm X 23mm 145cm [employer] Adriano - [id number] Implanted:Qty : 1 on 04/07/2023 by Rafa Roman MD at [facility] Stent N/A: Arterial [employer] [id number] 12/04/2025 [id number] / / [id number] System Cor Stnt 4.0mm X 12mm 145cm [employer]ience [employer] Adriano - [id number] Implanted:Qty : 1 on 04/28/2024 by Ludmila Noble MD at [facility] Stent N/A: Arterial [employer] [id number] 09/01/2026 [id number] / [id number] Procedures Procedure Name Priority Date/Time Associated Diagnosis Comments US RETROPERITONEAL COMPLETE Routine 04/28/2024 12:06 AM EDT PROVATION COLONOSCOPY Routine 12/26/2022 9:02 AM EDT from Last 3 Months or Most Recently Relevant to Health Maintenance Results * Ultrasound retroperitoneal complete (04/28/2024 12:06 AM EDT) Anatomical Region Laterality Modality Body Ultrasound 04/28/2024 2:06 AM EDT Narrative 04/28/2024 2:26 AM EDT US RETROPERITONEAL COMPLETE INDICATION: Acute kidney failure [...] Federico Donaldson MD on 04/28/2024 2:06 AM Corby Maurer MD have personally reviewed the image(s) and agree with and/or edited the report Finalized by Corby Cintron MD on 04/28/2024 2:26 AM Procedure Note Corby Cintron MD - 04/28/2024 US RETROPERITONEAL COMPLETE INDICATION: Acute kidney failure COMPARISON: CT abdomen and pelvis 04/12/2014 TECHNIQUE: Grayscale and color Doppler sonographic images of the urinarybladder and both kidneys. FINDINGS: Measurements: Right kidney: 12.0 x 5.2 x 4.4 cm Right kidney cortex: 0.2 cm Left kidney: 12.7 x 6.1 x 5.6 cm Left kidney cortex: 0.2 cm Urinary bladder volume: 474 mL Post void volume: No void attempted. Right kidney: Normal cortical echogenicity. No hydronephrosis, mass, orcalculi demonstrated. Left kidney: Normal cortical echogenicity. No hydronephrosis, mass, orcalculi demonstrated. Urinary bladder: Unremarkable. Bilateral ureteral jets not visualized. IMPRESSION: * Unremarkable ultrasound of the bilateral kidneys and urinary bladder. Approved by Resident: Federico Donaldson MD on 04/28/2024 2:06 AM Corby Maurer MD have personally reviewed the image(s) and agreewith and/or edited the report Finalized by Corby Cintron MD on 04/28/2024 2:26 AM us Vidhit Randi DO IMG US ORDERABLES Final Result * Colonoscopy Report (12/26/2022 9:02 AM EDT) Narrative SYSTEMGENERATED, DOCUMENTATION - 12/26/2022 9:02 AM EDT This order has been auto-finalized for image and report archival in PACs. *For full report details, please reach out to your physician. This image is visible to you in [employer].* Chino Raza DO IMG OR IMG ORDERABLES Final Result from Last 3 Months or Most Recently Relevant to Health Maintenance Insurance MEDICARE [facility] MEDICARE [facility] WORKER'S COMPENSATION Advance Directives Documents on File Type Date Recorded Patient Folded Cloth Taper Expl anation Durable Power of It Technical Specialist 04/14/2023 3:27 PM Living Will 04/14/2023 3:19 PM * Full Code (Latest Code Status on File) Date Activated Date Inactivated Comments 04/27/2024 12:28 PM 04/29/2024 6:50 PM * Full Code Date Activated Date Inactivated Comments 04/26/2024 5:35 AM 04/27/2024 12:19 PM * Full Code Date Activated Date Inactivated Comments 04/05/2023 2:40 PM 04/08/2023 6:56 PM Care Teams Chief Engineer Relationship Specialty Start Date End Date Cruzito Eid MD PCP - General Family Medicine 04/19/21
--- OUTSIDE RECORDS SUMMARY | 2025-01-26 13:29 | XMS_ITS | Encounter Summary ---
Author Organization The Shared Web tem Address [id number] [address] [place] [address] Care Team Providers Care Sales Account Executive Name Role Phone Cruzito Eid MD Primary Care Provider [phone] Reason for Visit * Reason Onset Date Comments Congestive Heart Failure 04/26/2024 elevated troponin 04/26/2024 Encounter Details Date Type Department Care Team ([facility] Contact Info) Description 04/26/2024 Telephone [facility] [address] [place] [id number] Carlotta Bahena Congestive Heart Failure; elevated troponin Social History Tobacco Use Types Packs/Day Years Used Date Smoking Tobacco: Every Day Cigarettes 0.5 55.9 Started: 1964; Last attempted to quit: 2019 Smokeless Tobacco: Never Comments:4-5 cigarettes per day or at least 1 pack a week Alcohol Use Standard Drinks/Week Comments Yes 0 (1 standard drink = 0.6 oz pur e alcohol) 1 drink a year at least [facility] Utilities Answer Date Recorded In the past 12 months has [employer], gas, oil, or water [employer] threatened to shut off services in your [...] Orientation Straight 04/26/2024 4: 28 AM EDT documented as of this encounter Functional Status * Question Answer Date of Assessment Author Functional Status Independent 04/28/2024 2:10 PM EDT Soha Velarde RN * Audit-C Score Answer Date of Assessment Author 0 04/27/2024 1:23 PM EDT Doni Lion RN * Question Answer Date of Assessment Author Q1: How often do you have a drink containing alcohol? Never 04/27/2024 1:23 PM JWT Stacie Lion, RICARDO Q2: How many drinks containing alcohol do you have on a typical day when you are drinking? Patient does not drink 04/27/2024 1:23 PM JWT Stacie Lion, RICARDO Q3: How often do you have six or more drinks on one occasion? Never 04/27/2024 1:23 PM EDT Stacie Lion RICARDO documented as of this encounter Miscellaneous Notes * Telephone Encounter - Carlotta Bahena - 04/26/2024 5:32 AM EDT Contract: [facility] [phone] Ra dixon heart failure, elevated troponin; rm 202, new consult, no call back needed; AM rounding requested * Telephone Encounter - Carlotta Bahena - 04/26/2024 5:32 AM EDT Secure chat sent documented in this encounter Plan of Treatment Not on file documented as of this encounter Goals Goal Patient Goal Type Associated Problems Recent Progress Patient-Stated? Author <enter goal here> General Yes Soha Velarde RN Note: Evaluation of progress towards goal: Patient plans for a safe discharge home self care with spouse support. documented as of this encounter Visit Diagnoses Not on filedocumented in this encounter Additional Health Concerns Infection Onset Date Last Indicated Resolved Time COVID-19 Rule-Out 04/26/2024 04/26/2024 04/26/2024 11:56 AM EDT Assessment Noted Time PHQ-9 Depression Total Score: 0 04/05/20 23 12:19 PM EDT documented as of this encounter Care Teams Sales Account Executive Relationship Specialty Start Date End Date Cruzito Eid MD PCP - General Family Medicine 04/19/21 documented as of this encounter
--- OUTSIDE RECORDS SUMMARY | 2025-01-26 13:29 | XMS_ITS | Encounter Summary ---
Author Organization [facility] Address [address] [place] [address] Care Team Providers Care Protection Consultant Name Role Phone Amaris Mcgrath MD Primary Care Provider [phone] Amaris Mcgrath MD Unavailable Moon Pierce MA Unavailable [phone] Encounter Details Date Type Department Care Team ([facility] Contact Info) Description 03/23/2024 Clinisync Result Encounter [facility] External Department Unsolicited Amaris Mcgrath MD [address] [place] [address] Social History Tobacco Use Types Packs/Day Years Used Date Smoking Tobacco: Former Cigarettes 2 016 - 1964 Smokeless Tobacco: Never Alcohol Use Standard Drinks/Week Comments Yes 0 (1 standard drink = 0.6 oz pure alcohol) 1-2 drinks monthly or less, caffeine: coffee,soda 2-3 cups per day Sex and Gender Information Value Date Recorded Sex Assigned at Not on file Legal Sex Male 7:25 PM EDT Gender Identity Not on file Sexual Orientation Not on file documented as of this encounter Plan of Treatment Upcoming Encounters Date Type Department Care Team ([facility] Contact Info) Description 05/12/2025 10:45 AM EDT Office Visit [facility] [address] [place] [address] Amaris Mcgrath MD [address] [place] [address] 07/07/2025 1:45 PM EST Office Visit [facility] [address] [place] [address] Luna Wong MD [address] [place] [address] documented as of this encounter Procedures Procedure Name Priority Date/Time Associated Diagnosis Comments MR LUMBAR SPINE WO CON 03/23/2024 7:50 AM EDT documented in this encounter Results * MR LUMBAR SPINE WO CON (03/23/2024 7:50 AM EDT) Anatomical Region Laterality Modality Other 03/23/2024 7:50 AM EDT Narrative 03/23/2024 7:52 AM EDT The [address] [address] Magnetic Resonance Report Signed Patient: CEDRIC ROJAS MR#: [id number] : 1945 Acct:[id number] Age/Sex: 78 / M ADM Date: 03/19/24 Loc: MRI Attending Dr: Amaris Mcgrath M.D. Ordering Physician: Amaris Mcgrath M.D. Date of Service: 03/19/24 Procedure(s): MR lumbar spine wo con Accession Number(s): [id number] cc: Amaris Mcgrath M.D. The [address] [address] Patient Name: CEDRIC ROJAS MRN: [id number] date: 1945 Sex: M Assigned Patient Location: MRI Current Patient Location: Accession/Order Number: [id number] Exam Date: 03/19/2024 08:35 Report Date: 03/23/2024 07:50 At the request of: AMARIS MCGRATH Procedure: MR lumbar spine wo con MRI lumbar spine without contrast, 03/19/2024. HISTORY: Low back pain. Pain in left leg. Weakness. COMPARISON: None. TECHNIQUE: Multiplanar, multisequence MRI imaging of the lumbar spine without contrast. FINDINGS: Normal alignment. No acute compression fractures. Signal in the bone marrow spaces is appropriate. No bone marrow edema or suspicious osseous lesions. L5-S1, mild degenerative disc disease. There is a shallow broad-based protrusion. No central spinal canal stenosis or nerve root compression. No significant foraminal narrowing. L4-L5, moderate facet arthropathy with facet hypertrophy. There is severe degenerative disc disease most severe on the left side of the disc space. Disc space narrowing and facet hypertrophy result in severe left neural foraminal narrowing. No foraminal narrowing on the right. Disc bulge mildly effaces the thecal sac. Mild spinal canal stenosis. L3-L4, mild degenerative disc disease. Disc bulge and endplate osteophyte complex in the right foramen result in moderate right neural foraminal narrowing. There is mild effacement of the right lateral recess. No central canal stenosis. No foraminal narrowing on the left. L2-L3, moderate facet arthropathy on the right. Mild degenerative disc disease. No spinal stenosis. No foraminal narrowing. L1-L2, mild facet arthropathy. No spinal stenosis or foraminal narrowing. No abnormal signal in the conus medullaris. No paraspinal masses. MR/MR lumbar spine wo con IMPRESSION: 1. Normal alignment. No acute compression fracture. 2. At L4-L5, there is severe degenerative disc disease most severe on the left side of the disc space. Disc space narrowing and left foraminal osteophyte results in severe left foraminal narrowing. Mild spinal canal stenosis. 3. Moderate right neural foraminal narrowing at L3-L4. Electronically authenticated by: JOSE M GUTIERREZ Date: 03/23/2024 07:50 Dictated By: Jose M Gutierrez M.D. Signed By: 03/23/24 0752 DD/ 0750 TD/TT: Real Estate Transaction Manager: Procedure Note Radiology, Radiologist, MD - 03/23/2024 [place] [address] Magnetic Resonance Report Signed Patient: CEDRIC ROJAS UMR#: [id number] : 7Acct:[id number] Age/Sex: 78 / MADM Date: 03/19/24 Loc: MRI Attending Dr: Amaris Mcgrath M.D. Ordering Physician: Amaris Mcgrath M.D. Date of Service: 03/19/24 Procedure(s): MR lumbar spine wo con Accession Number(s): [id number] cc: Amaris Mcgrath M.D. [address] [address] Patient Name: CEDRIC ROJAS MRN: [facility]:[id number] date: 1945 Sex: M Assigned Patient Location: MRI Current Patient Location: Accession/Order Number: [id number] Exam Date: 03/19/2024 08:35 Report Date: 03/23/2024 07:50 At the request of: AMARIS MCGRATH Procedure: MR lumbar spine wo con MRI lumbar spine without contrast, 03/19/2024. HISTORY: Low back pain. Pain in left leg. Weakness. COMPARISON: None. TECHNIQUE: Multiplanar, multisequence MRI imaging of the lumbar spinewithout contrast. FINDINGS: Normal alignment. No acute compression fractures. Signal in thebone marrow spaces is appropriate. No bone marrow edema or suspicious osseous lesions. L5-S1, mild degenerative disc disease. There is a shallow broad-based protrusion. No central spinal canal stenosis or nerve root compression. No significant foraminal narrowing. L4-L5, moderate facet arthropathy with facet hypertrophy. There is severe degenerative disc disease most severe on the left side of the disc space.Disc space narrowing and facet hypertrophy result in severe left neuralforaminal narrowing. No foraminal narrowing on the right. Disc bulge mildly effacesthe thecal sac. Mild spinal canal stenosis. L3-L4, mild degenerative disc disease. Disc bulge and endplate osteophyte complex in the right foramen result in moderate right neural foraminal narrowing. There is mild effacement of the right lateral recess. Nocentral canal stenosis. No foraminal narrowing on the left. L2-L3, moderate facet arthropathy on the right. Mild degenerative disc disease. No spinal stenosis. No foraminal narrowing. L1-L2, mild facet arthropathy. No spinal stenosis or foraminal narrowing. No abnormal signal in the conus medullaris. No paraspinal masses. MR/MR lumbar spine wo con IMPRESSION: 1. Normal alignment. No acute compression fracture. 2. At L4-L5, there is severe degenerative disc disease most severe on theleft side of the disc space. Disc space narrowing and left foraminal osteophyte results in severe left foraminal narrowing. Mild spinal canal stenosis. 3. Moderate right neural foraminal narrowing at L3-L4. Electronically authenticated by: JOSE M GUTIERREZ Date: 03/23/2024 07:50 Dictated By: Jose M Gutierrez M.D. Signed By:03/23/24 0752 DD/ 0750 TD/TT: Real Estate Transaction Manager: Amaris Mcgrath MD [facility] Final Result documented in this encounter Visit Diagnoses Not on filedocumented in this encounter Care Teams Protection Consultant Relationship Specialty Start Date End Date Amaris Mcgrath MD [address] [place] [address] PCP - General Family Medicine 04/20/23 Amaris Mcgrath MD [address] [place] [address] PCP - ACO Reach 08/27/24 Moon Pierce MA [address] [place] [address] Family Medicine 10/13/24 10/20/24 documented as of this encounter
--- OUTSIDE RECORDS SUMMARY | 2025-01-26 13:29 | XMS_ITS | Clinical Summary ---
Author Organization [facility] Address [address] [place] [address] Phone Care Team Providers Care Auditor Tax Name Role Phone Unavailable Primary Care Provider Unavailabl e Social History Tobacco Use Types Packs/Day Years Used Date Smoking Tobacco: Never Assessed Sex and Gender Information Value Date Recorded Sex Assigned at Not on file Legal Sex Male 7:21 PM EST Gender Identity Not on file Sexual Orientation Not on file Plan of Treatment Not on file
--- OUTSIDE RECORDS SUMMARY | 2025-01-26 13:29 | XMS_ITS | Encounter Summary ---
Author Organization [facility] Address [address] [place] [address] Care Team Providers Care Decorating Instructor Name Role Phone Cruzito Eid MD Primary Care Provider [phone] Cruzito Eid MD Unavailable Moon Pierce MA Unavailable [phone] Encounter Details Date Type Department Care Team ([facility] Contact Info) Description 06/08/2024 Orders Only [facility] [address] [place] [address] Cruzito Eid MD [address] [place] [address] Social History Tobacco Use Types Packs/Day Years Used Date Smoking Tobacco: Former Cigarettes 2 016 - 1965 Smokeless Tobacco: Never Alcohol Use Standard Drinks/Week Comments Yes 0 (1 standard drink = 0.6 oz pure alcohol) 1-2 drinks monthly or less, caffeine: coffee,soda 2-3 cups per day B1300 Health Literacy Answer Date Recor ded How often do you need to hav e someone help you when you read instructions, pamphlets, or other written material from your doctor or pharmacy? Rarely 04/25/2024 Social Connection and Isolat ion Panel [NHANES] Answer Date Recorded In a typical week, how many times do you talk on the phone with family, friends, or neighbors? More than three times a week 04/25/2024 How often do you get togethe r with friends or relatives? Twice a week 04/25/2024 How often do you attend [facility] or sikh services? More than 4 times per year 04/25/2024 Do you belong to any clubs o r organizations such as congregation groups, unions, fraternal or athletic groups, or school groups? Yes 04/25/2024 How often do you attend meet ings of the clubs or organizations you belong to? More than 4 times per year 04/25/2024 Are you , , di vorced, , never , or living with a partner? 04/25/2024 AUDIT-C Answer Date Recorded Q1: How often do you have a drink containing alc ohol? Monthly or less 04/25/2024 Q2: How many drinks containi ng alcohol do you have on a typical day when you are drinking? 1 or 2 04/25/2024 Q3: How often do you have si x or more drinks on one occasion? Never 04/25/2024 Overall Financial Resource Strain (CARDIA) Answe r Date Recorded How hard is it for you to pa y for the very basics like food, housing, medical care, and heating? Not hard at all 04/25/2024 [facility] - Occupational Stress Questionnaire Answer Date Recorded Do you feel stress - tense, restless, nervous, or anxious, or unable to sleep at night because your mind is troubled all the time - these days? Not at all 04/25/2024 Exercise Vital Sign Answer Date Recorde d On average, how many days pe r week do you engage in moderate to strenuous exercise (like a brisk walk)? 1 day 04/25/2024 On average, how many minutes do you engage in exercise at this level? 10 min 04/25/2024 Hunger Vital Sign Answer Date Recorded Within the past 12 months, y ou worried that your food would run out before you got the money to buy more. Never true 04/25/20 24 Within the past 12 months, t he food you bought just didn't last and you didn't have money to get more. Never true 04/25/2024 PRAPARE - Transportation Answer Date Re corded In the past 12 months, has l ack of transportation kept you from medical appointments or from getting medications? No 12/2023 In the past 12 months, has l ack of transportation kept you from meetings, work, or from getting things needed for daily living? No 04/25/2024 Housing Stability Vital Sign Answer Laureano e Recorded In the last 12 months, was t here a time when you were not able to pay the mortgage or rent on time? No 04/25/2024 In the past 12 months, how m any times have you moved where you were living? 0 04/25/2024 At any time in the past 12 m ont, were you homeless or living in a chcf (including now)? No 04/25/2024 Sex and Gender Information Value Date Recorded Sex Assigned at Not on file Legal Sex Male 7:25 PM EDT Gender Identity Not on file Sexual Orientation Not on file documented as of this encounter Plan of Treatment Upcoming Encounters Date Type Department Care Team (Late st Contact Info) Description 05/12/2025 10:45 AM EDT Office Visit [facility] [address] [place] [address] Cruzito Eid MD [address] [place] [address] 07/07/2025 1:45 PM EST Office Visit [facility] [address] [place] [address] Luna Wong MD [address] [place] [address] documented as of this encounter Visit Diagnoses Not on filedocumented in this encounter Care Teams Decorating Instructor Relationship Specialty Start Date End Date Cruzito Eid MD [address] [place] [address] PCP - General Family Medicine 04/20/23 Cruzito Eid MD [address] [place] [address] PCP - ACO Reach 08/27/24 Moon Pierce MA [address] [place] [address] Family Medicine 10/13/24 10/20/24 documented as of this encounter
--- OUTSIDE RECORDS SUMMARY | 2025-01-26 13:29 | XMS_ITS | Encounter Summary ---
Author Organization [facility] Address [address] [place] [address] Care Team Providers Care Sap Basis Administrator Name Role Phone Amaris Mcgrath MD Primary Care Provider [phone] Amaris Mcgrath MD Unavailable Moon Pierce MA Unavailable [phone] Encounter Details Date Type Department Care Team ([facility] Contact Info) Description 03/02/2024 Clinisync Result Encounter [facility] External Department Unsolicited Amaris Mcgrath MD [address] [place] [address] Social History Tobacco Use Types [...] Upcoming Encounters Date Type Department Care Team ([facility] Contact Info) Description 05/12/2025 10:45 AM EDT Office Visit [facility] [address] [place] [address] Amaris Mcgrath MD [address] [place] [address] 07/07/2025 1:45 PM EST Office Visit [facility] [address] [place] [address] Luna Wong MD [address] [place] [address] documented as of this encounter Procedures Procedure Name Priority Date/Time Associated Diagnosis Comments XR LUMBAR SPINE 2 OR 3V 03/02/2024 6:26 AM EDT documented in this encounter Results * XR LUMBAR SPINE 2 OR 3V (03/02/2024 6:26 AM EDT) Anatomical Region Laterality Modality Radiographic Eloina ging 03/02/2024 6:26 AM EDT Narrative 03/02/2024 6:29 [place] [address] XRay Report Signed Patient: CEDRIC ROJAS MR#: [id number] : 1945 Acct:[id number] Age/Sex: 78 / M ADM Date: 02/27/24 Loc: RAD Attending Dr: Amaris Mcgrath M.D. Ordering Physician: Amaris Mcgrath M.D. Date of Service: 02/27/24 Procedure(s): XR lumbar spine 2-3V Accession Number(s): [id number] cc: Amaris Mcgrath M.D. The [address] [id number] Patient Name: CEDRIC ROJAS MRN: [id number] date: 1945 Sex: M Assigned Patient Location: RAD Current Patient Location: Accession/Order Number: [id number] Exam Date: 02/27/2024 10:31 Report Date: 03/02/2024 06:26 At the request of: AMARIS MCGRATH Procedure: XR lumbar spine 2-3V EXAMINATION: XR lumbar spine 2-3V HISTORY: Degenerative Disc Disease ; chronic lower right back pain radiating into right leg COMPARISON: XR lumbar spine 12/08/2013 FINDINGS: BONES: Mild left convex curvature lumbar spine. No fracture or spondylolisthesis. Moderate degenerative facet arthropathy L2-L3 through L5-S1. DISC SPACES: Moderate narrowing L4-L5, L5-S1. PARASPINOUS: Marked atherosclerotic disease of aorta; no appreciable aneurysm. OTHER: Negative. XR/XR lumbar spine 2-3V IMPRESSION: 1. Moderate degenerative disc disease and multilevel moderate degenerative facet arthropathy; progressed since prior study. Electronically authenticated by: ROBERTO SINGH Date: 03/02/2024 06:26 Dictated By: Roberto Singh M.D. Signed By: 03/02/2429 DD/ 5 TD/TT: Transmission Engineer: Procedure Note Radiology, Radiologist, MD - 03/02/2024 [place] [address] XRay Report Signed Patient: CEDRIC ROJAS UMR#: [id number] : 1945cct:[id number] Age/Sex: 78 / MADM Date: 02/27/24 Loc: RAD Attending Dr: Amaris Mcgrath M.D. Ordering Physician: Amaris Mcgrath M.D. Date of Service: 02/27/24 Procedure(s): XR lumbar spine 2-3V Accession Number(s): [id number] cc: Amaris Mcgrath M.D. The [place] [address] Patient Name: CEDRIC ROJAS MRN: [id number] date: 1945 Sex: M Assigned Patient Location: [facility] Current Patient Location: Accession/Order Number: [id number] Exam Date: 02/27/2024 10:31 Report Date: 03/02/2024 06:26 At the request of: AMARIS MCGRATH Procedure: XR lumbar spine 2-3V EXAMINATION: XR lumbar spine 2-3V HISTORY: Degenerative Disc Disease ; chronic lower right back painradiating into right leg COMPARISON: XR lumbar spine 12/08/2013 FINDINGS: BONES: Mild left convex curvature lumbar spine. No fracture or spondylolisthesis. Moderate degenerative facet arthropathy L2-L3 through L5-S1. DISC SPACES: Moderate narrowing L4-L5, L5-S1. PARASPINOUS: Marked atherosclerotic disease of aorta; no appreciableaneurysm. OTHER: Negative. XR/XR lumbar spine 2-3V IMPRESSION: 1. Moderate degenerative disc disease and multilevel moderate degenerative facet arthropathy; progressed since prior study. Electronically authenticated by: ROBERTO SINGH Date: 03/02/2024 06:26 Dictated By: Roberto Singh M.D. Signed By:03/02/24628 DD/ 5 TD/TT: Transmission Engineer: Amaris Mcgrath MD IMG XR PROCEDURES Final Result documented in this encounter Visit Diagnoses Not on filedocumented in this encounter Care Teams Sap Basis Administrator Relationship Specialty Start Date End Date Amaris Mcgrath MD [address] [place] [address] PCP - General Family Medicine 04/20/23 Amaris Mcgrath MD [address] [place] [address] PCP - ACO Reach 08/27/24 Moon Pierce MA [address] [place] [address] Family Medicine 10/13/24 10/20/24 documented as of this encounter
--- OUTSIDE RECORDS SUMMARY | 2025-01-26 13:29 | XMS_ITS | Encounter Summary ---
Author Organization [facility] [employer] [employer] [facility] tem Address [id number] [address] [place] [address] Care Team Providers Care Assistant Import Manager Name Role Phone Cruzito Eid MD Primary Care Provider Reason for Visit * Reason Onset Date Comments Status Post Cath 04/29/2024 Encounter Details Date Type Department Care Team (Late st Contact Info) Description 04/29/2024 Telephone [facility] [address] [place] [address] Ludmila Noble MD [address] [place] [address] Status Post Cath Social History Tobacco Use Types Packs/Day Years Used Date Smoking Tobacco: Every Day Cigarettes 0.5 55.9 Started: 1964; Last attempted to quit: 2019 Smokeless Tobacco: Never Comments:4-5 cigarettes per day or at least 1 pack a week Alcohol Use Standard Drinks/Week Comments Not Currently 0 (1 standard drink = 0.6 oz pur e alcohol) 1 drink a year at least [facility] Utilities Answer Date Recorded In the past 12 months has [employer], gas, oil, or water [employer] threatened to shut off services in your [...] AM EDT documented as of this encounter Miscellaneous Notes * Telephone Encounter - Yvonne Sanchez - 04/29/2024 10:22 AM EDT PER MESSAGE FROM THE 04/28/2024 PROCEDURE LIST: PER AY; PT CURRENTLY ADMITTED @[facility] S/P CATH-PT NEEDSTO F/U IN 7-10 DAYS-[facility] * Telephone Encounter - Codi Arita CMA - 04/29/2024 10:22 AM EDT STILL ADMITTED * Telephone Encounter - Flora Driscoll - 04/29/2024 10:22 AM EDT T/C to pt and spoke to him about making his f/u appts with [facility]. Pt declined to make any stating he is now seeing [facility] docs. documented in this encounter Plan of Treatment Not on file documented as of this encounter Goals Goal Patient Goal Type Associated Problems Recent Progress Patient-Stated? Author <enter goal here> General Yes Soha Velarde, RN Note: Evaluation of progress towards goal: Patient plans for a safe discharge home self care with spouse support. documented as of this encounter Visit Diagnoses Not on filedocumented in this encounter Additional Health Concerns Assessment Noted Time PHQ-9 Depression Total Score: 0 04/27/20 24 1:23 PM EDT documented as of this encounter Care Teams Assistant Import Manager Relationship Specialty Start Date End Date Cruzito Eid MD PCP - General Family Medicine 04/19/21 documented as of this encounter
--- OUTSIDE RECORDS SUMMARY | 2025-01-26 13:29 | XMS_ITS | Clinical Summary ---
Author Organization [facility] Address [address] [place], [place] [id number] Care Team Providers Care High Worker Name Role Phone Cruzito Eid MD Primary Care Provider Allergies No known active allergies Medications cholecalcifero l, vitamin D3, 10 mcg (400 unit) cap Take 2,000 Units by mouth once daily. Active insulin glargine (LANTUS) 100 unit/mL injection Inject subcutaneously as directed. Active Zinc 50 mg tab Take 50 mg by mouth once daily. Active carvedilol (COREG) 6.25 mg tablet Take 3.125 mg by mouth two times a day with meals. Active pravastatin (PRAVACHOL) 20 mg tablet Take 20 mg by mouth once daily. Active clopidogrel (PLAVIX) 75 mg tablet Take 75 mg by mouth once daily. Active amLODIPine (NORVASC) 5 mg tablet Take 10 mg by mouth every morning. 2 Active rosuvastatin (CRESTOR) 20 mg tablet Take 20 mg by mouth every evening. 3 Active gabapentin (NEURONTIN) 100 mg capsule TAKE 1 CAPSULE BY MOUTH AT BEDTIME FOR 1 DAY, THEN TAKE 1 CAPSULE TWICE DAILY FOR 1 DAY, AND THEN TAKE 1 CAPSULE THREE TIMES DAILY 3 Active aspirin 81 mg chewable tablet Take 81 mg by mouth. 3 Active bumetanide (BUMEX) 1 mg tablet Take 1 mg by mouth. 4 Active therapeutic multivitamin-m inerals (THERA-M PLUS) 9 mg iron-400 mcg tablet Take 1 tablet by mouth every morning. Active pantoprazole DR (PROTONIX) 40 mg tablet Take 40 mg by mouth once daily. Active losartan (COZAAR) 50 mg tablet Take 50 mg by mouth once daily. Active primidone (MYSOLINE) 50 mg tablet Take 50 mg by mouth daily at bedtime. Active potassium gluconate 595 mg (99 mg) TbER Take 595 mg by mouth. Active metFORMIN (GLUCOPHAGE) 500 mg tablet Take 500 mg by mouth daily with breakfast. Active resveratroL 250 mg cap Take 2 capsules by mouth once daily. Active Magnesium 250 mg tab Take 1 tablet by mouth every morning. Active glipiZIDE (GLUCOTROL) 10 mg tablet Take 10 mg by mouth once daily. 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 Encounters Date Type Department Care Team Description 11/04/2024 2:15 PM EDT [facility] Hematology/Oncology [address] [place] [address] [place] [address] Other iron deficiency anemia (Primary Dx) from Last 3 Months Immunizations Immunization Administration Dates Next Due influenza (HD-IIV3) vaccine, age 65+ yr, high dose, trivalent, PF (FLUZONE HIGH-DOSE) 03/30/2020,04/01/2019,05/13/2018 influenza (HD-IIV4) vaccine, age 65+ yr, high dose, quadrivalent, PF (FLUZONE HIGH-DOSE) 04/02/2022 influenza (IIV4) vaccine, ag e 6 mo - 64 yr, quadrivalent (AFLURIA, FLULAVAL, FLUZONE) 05/28/2017 influenza (aIIV3) vaccine, a ge 65+ yr, trivalent, PF (FLUAD) 05/12/2024 influenza (aIIV4) vaccine, a ge 65+ yr, quadrivalent, PF (FLUAD QUAD) 08/02/2023 pneumococcal conjugate (PCV1 3) vaccine, 13 valent (PREVNAR 13) 06/24/2018 Family History Medical History Relation Comments Cancer Father Diabetes Father Diabetes Mother Relation Status Comments Father Mother Social History Tobacco Use Types Packs/Day Years Used Date Smoking Tobacco: Former Cigarettes Passive Smoke Exposure: Past Smokeless Tobacco: Never Tobacco Cessation:Counseling Given: No Alcohol Use Standard Drinks/Week Comments Not Asked 0 (1 standard drink = 0.6 oz pur e alcohol) PHQ-2 Answer Date Recorded PHQ-2 score 0 01/16/2024 Area Deprivation Index Answer Date Milo rded National Score (1-100), lower number is lower ri sk 87 12/27/2022 State Score (1-10), lower number is lower risk 8 12/27/2022 Data from: https://www.neighborhoodatlas.medicine.[facility]/. Last address used for calculation [address] [facility] 12/27/2022 Sex and Gender Information Value Date Recorded Sex Assigned at Not on file Legal Sex Male 2:29 PM EST Gender Identity Not on file Sexual Orientation Not on file Last Filed Vital Signs Vital Sign Reading Time Taken Comments Blood Pressure 152/68 11/04/2024 1:40 PM EDT Pulse 64 11/04/2024 1:40 PM EDT Temperature 36.6 C (97.9 F) 11/04/2024 1:40 PM EDT Respiratory Rate 16 11/04/2024 1:40 PM EDT Oxygen Saturation 97% 11/04/2024 1:40 PM EDT Inhaled Oxygen Concentration - - Weight 78.7 kg (173 lb 8 oz) 10/25/2024 10:36 AM EDT Height 171.5 cm (5' 7.52 ) 07/09/2024 1:41 PM ES T Body Mass Index 26.76 07/09/2024 1:41 PM EST Plan of Treatment Upcoming Encounters Date Type Department Care Team (Latest Contact Info) Description 04/25/2025 11:00 AM EDT Office Visit [facility] [place] [address] 6 month lab prior to follow up 05/02/2025 11:00 AM EDT Visit (SP) Office Hematology/Oncology [address] [place] [address] Angelina Manuel APRN.FLIGHT NURSE [address] [place] [address] 6 month follow up possible monoferric 05/02/2025 11:30 AM EDT [facility] Hematology/Oncology [address] [place] [address] [place] [address] 6 month follow up possible monoferric Health Maintenance Due Date Last Done Comments Diabetic Foot Exam 1957 Dilated Retinal Exam 1957 Annual PCP Team Chronic Dise ase Visit 1965 Anxiety Screening 1965 Depression Screening 1965 Hepatitis C Screening 1965 LDL Cholesterol 1965 DTaP,Tdap,Td Vaccine (1 - Tdap) 1966 Shingrix Vaccine (1 of 2) 1966 Medicare Annual Wellness Visit 06/20/2012 Pneumococcal Vaccine: 50+ (2 of 2 - PPSV23) 08/19/2018 06/24/2018 RSV Vaccine (1 - 1-dose 75+ series) 2022 HbA1C 01/21/2024 07/23/2023, 03/21, 04/05/2023, Additional history exists Advance Directive Discussion 07/21/2024 Covid-19 Vaccine (7 - Modern a risk season) 2024 05/12/2024, 08/02/2023, 04/02/2022, Additional history exists Urine Albumin:Creatinine Ratio 04/27/2025 04/27/2024 Hemoglobin/Hematocrit 10/25/2025 10/25/2024 , 10/25/2024, 07/16/2024, Additional history exists Serum Creatinine 10/25/2025 10/25/2024, , 07/09/2024, Additional history exists Colonoscopy Discontinued 12/26/2022, 09/21/2012 Colorectal Cancer Screening Discontinued Influenza Vaccine Completed 05/12/2024, , 04/02/2022, Additional history exists CT Colonography Discontinued Cologuard (FIT-DNA) Discontinued Fecal Occult Blood Discontinued Sigmoidoscopy Discontinued Procedures Procedure Name Priority Date/Time Associated Diagnosis Comments CBC + DIFF Routine 10/25/2024 10:30 AM EDT CLL (chronic lymphocytic leukemia) (HCC) Other iron deficiency anemia COMPREHENSIVE METABOLIC PANEL Routine 10/25/2024 10:30 AM EDT CLL (chronic lymphocytic leukemia) (HCC) Other iron deficiency anemia from Last 3 Months or Most Recently Relevant to Health Maintenance Results * (ABNORMAL) COMPREHENSIVE METABOLIC PANEL (10/25/2024 10:30 AM EDT) Pathologist [facility] Protein, Total 6.6 6.3 - 8.0 g/dL 10/25/2024 11:35 AM EDT [facility] Albumin 4.4 3.9 - 4.9 g/dL 10/25/2024 11:35 AM EDT [facility] Calcium, Total 9.6 8.5 - 10.2 mg/dL 10/25/2024 11:35 AM EDT [facility] Bilirubin, Total 0.4 0.2 - 1.3 mg/dL 10/25/2024 11:35 AM T [facility] Alkaline Phosphatase 93 38 - 113 U/L 10/25/2024 11:35 AM EDT [facility] AST 14 14 - 40 U/L 10/25/2024 11:35 AM T [facility] ALT 11 10 - 54 U/L 10/25/2024 11:35 AM EDT [facility] Glucose 228(H) 74 - 99 mg/dL 10/25/2024 11:35 AM T [facility] Comment: The [place] [employer] (ADA) provides guidance for cutoff [...] Standards of Medical Care in Diabetes 2016, [place] [employer]. Diabetes Care. 2016.39(Suppl 1). BUN 40(H) 9 - 24 mg/dL 10/25/2024 11:35 AM EDT [facility] Creatinine 1.83(H) 0.73 - 1.22 mg/dL 10/25/2024 11:35 AM EDT [facility] Sodium 136 136 - 144 mmol/L 10/25/2024 11:35 AM EDT [facility] Potassium 4.8 3.7 - 5.1 mmol/L 10/25/2024 11:35 AM EDT [facility] Chloride 99 98 - 107 mmol/L 10/25/2024 11:35 AM EDT [facility] CO2 26 22 - 30 mmol/L 10/25/2024 11:35 AM EDT [facility] Anion Gap 11 8 - 15 mmol/L 10/25/2024 11:35 AM EDT [facility] Estimated Glomerular Filtration Rate 38(L) >=60 mL/min/1. 73m 10/25/2024 11:35 AM EDT [facility] Comment:Estimated Glomerular Filtration Rate (eGFR) is calculated using the 2020 CKD-EPI creatinine equation. This equation utilizes serum creatinine, sex, and age as parameters. The creatinine assay has traceable calibration to isotope dilution- mass spectrometry. Refer to KDIGO guidelines for clinical interpretation. In patients with unstable renal function, e.g. those with acute kidney injury, the eGFR may not accurately reflect actual GFR. Blood BLOOD SPECIMEN / Unknown Venipuncture / Unknown 10/25/2024 10:30 AM EDT 10/25/2024 10:30 AM EDT us Natalie Ferrer PA-C LABORATORY Final Result [facility] [address] [place] [address] * (ABNORMAL) COMPLETE BLOOD COUNT AND DIFFERENTIAL (10/25/2024 10:30 AM EDT) WBC 15.14(H) 3.70 - 11.00 k/uL 10/25/2024 11:00 PM EDT [facility] RBC 3.24(L) 4.20 - 6.00 m/uL 10/25/2024 11:00 PM EDT [facility] Hemoglobin 9.6(L) 13.0 - 17.0 g/dL 10/25/2024 11:00 PM EDT [facility] Hematocrit 28.6(L) 39.0 - 51.0 % 10/25/2024 11:00 PM EDT [facility] MCV 88.3 80.0 - 100.0 fL 10/25/2024 11:00 PM EDT [facility] MCH 29.6 26.0 - 34.0 pg 10/25/2024 11:00 PM EDT [facility] MCHC 33.6 30.5 - 36.0 g/dL 10/25/2024 11:00 PM EDT [facility] RDW-CV 13.5 11.5 - 15.0 % 10/25/2024 11:00 PM EDT [facility] Platelet Count 154 150 - 400 k/uL 10/25/2024 11:00 PM T [facility] MPV 10.1 9.0 - 12.7 fL 10/25/2024 11:00 PM EDT [facility] NRBC 0.0 /100 WBC 10/25/2024 11:00 PM [facility] Absolute nRBC <0.01 <0.01 k/uL 10/25/2024 11:00 PM EDT [facility] Neutrophils % 39.0 % 10/25/2024 11:00 PM T [facility] Abs Neut (Segs + Bands) 5.90 1.45 - 7.50 k/uL 10/25/2024 11:00 PM T [facility] Lymphocytes % 58.0 % 10/25/2024 11:00 PM [facility] Abs Lymph (Normal + Reactive) 8.78(H) 1.00 - 4.00 k/uL 10/25/2024 11:00 PM EDT [facility] Monocytes % 3.0 % 10/25/2024 11:00 PM EDT [facility] Abs Baraga 0.45 <0.87 k/uL 10/25/2024 11:00 PM EDT [facility] Eosin% 0.0 % 10/25/2024 11:00 PM EDT [facility] Abs Eosin 0.00 <0.46 k/uL 10/25/2024 11:00 PM EDT [facility] Basophils % 0.0 % 10/25/2024 11:00 PM EDT [facility] Abs Baso 0.00 <0.11 k/uL 10/25/2024 11:00 PM EDT [facility] Platelet Estimate Adequate 10/25/2024 11:00 PM EDT [facility] Red Cell Morph Reviewed: see results of individual morphologies 10/25/2024 11:00 PM EDT [facility] Ovalocytes Few 10/25/2024 11:00 PM EDT [facility] Diff Type Manual 10/25/2024 11:00 PM EDT [facility] Blood BLOOD SPECIMEN / Unknown Venipuncture / Unknown 10/25/2024 10:30 AM EDT 10/25/2024 10:30 AM EDT Narrative [facility] - 10/25/2024 11:00 PM EDT ANC=5.41 The following results were reported as preliminary values due to instrument flagging. Interpret with caution. Final results may vary.Results requested and read back by: ANDRÉS WALLS [id number] @[id number] KWAME This is an appended report. These results have been appended to a previously verified report. us Natalie Ferrer PA-C LABORATORY Final Result [facility] [address] [place] [address], [facility] [address] [place] [address] from Last 3 Months or Most Recently Relevant to Health [place] [id number] Care Teams High Worker Relationship Specialty Start Date End Date Cruzito Eid MD [address] [place] [address] PCP - General Family Medicine 06/21/22
--- OUTSIDE RECORDS SUMMARY | 2025-01-26 13:29 | XMS_ITS | Clinical Summary ---
Author Organization [facility] Address [address] [address] Care Team Providers Care Regional Guide Name Role Phone Cruzito Eid MD Primary Care Provider [phone] Allergies Active Allergy Reactions Criticality Noted Date Comments Ticagrelor Other 06/12/2024 Medications insulin glargine (Lantus) 100 unit/mL injection vial Inject 52 Units under the skin in the morning. 01/03/20 21 Active metFORMIN (Glucophage) 500 mg tablet Take 500 mg by mouth with breakfast. 01/03/20 21 Active gabapentin (Neurontin) 300 mg capsule Take 300 mg by mouth three times daily. 07/22/19 24 Active amLODIPine (Norvasc) 10 mg tablet Take 1 tablet by mouth in the morning. 03/30/20 24 Active cholecalciferol (Vitamin D-3) 25 MCG (1000 units) tablet Take 2,000 Units by mouth in the morning. Active potassium gluconate 595 mg (99 mg) tablet extended release Take 595 mg by mouth in the morning. Active bumetanide (Bumex) 1 mg tabletIndications:Be nign hypertensive heart disease without congestive heart failure Take 1 tablet (1 mg) by mouth in the morning. 90 tablet 3 05/27/20 24 Active primidone (Mysoline) 50 mg tablet Take 50 mg by mouth in the morning. Active mv-min/folic/K1/lyco pen/lutein (CENTRUM SILVER ULTRA MEN'S ORAL) Take 1 tablet by mouth in the morning. Active magnesium 250 mg tablet Take 1 tablet by mouth in the morning. Active coenzyme Q-10 100 mg capsule Take 100 mg by mouth in the morning. 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 Do not crush, chew, or split. 60 tablet 11 08/19/19 25 Active carvedilol (Coreg) 3.125 mg tabletIndications:Be nign hypertensive heart disease without congestive heart failure,Status post angioplasty with stent,NSTEMI (non-ST elevated myocardial infarction) (CMS/HCC),Atheroscle rosis of [place] coronary artery of [place] heart without angina pectoris,Gastrointes tinal hemorrhage associated with duodenitis,Acute on chronic heart failure with preserved ejection fraction (CMS/HCC),Primary hypertension Take 1 tablet (3.125 mg) by mouth two times daily. 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 01/04/2025 Insufficient sleep syndrome 01/04/2025 Primary central sleep apnea 01/04/2025 Medicare annual wellness visit, subsequent 11/10 Iron deficiency anemia, unspecified 07/23/2024 Duodenitis 06/24/2024 Gastrointestinal hemorrhage associated with acut e gastritis 06/24/2024 Unsteady gait 06/24/2024 Balance disorder 06/13/2024 GI bleed 06/09/2024 Sinus node dysfunction 06/09/2024 Diminished pulses in lower extremity 05/11/2024 Former smoker 05/11/2024 Left leg pain 05/11/2024 Trochanteric bursitis of both hips 05/11/2024 Bradycardia 05/11/2024 Acute on chronic heart failu re with preserved ejection fraction 04/26/2024 Acute respiratory failure with hypoxia and hyper capnia 04/26/2024 New onset atrial fibrillation 04/26/2024 Abnormal result of cardiovas cular function study, unspecified 04/08/2024 Hypertension 04/08/2024 Change in voice 02/26/2024 Overview (04/08/2024): Last Assessment & Plan: Voice changing and prior smoker. Refer to ENT for evaluation and direct visualization. DDD (degenerative disc disease), lumbar 02/26/20 Overview (04/08/2024): Last Assessment & Plan: Increased pain and radicular symptoms. Check x-ray and may need MRI. Hoarseness 02/26/2024 Lumbar radiculopathy 02/26/2024 Weakness of both legs 12/18/2023 Overview (04/08/2024): Last Assessment & Plan: Episode of weakness after leaning and in 1 position for 2 hours but resolved and no problems since. Likely lumbar DDD and irritated nerve. Doing well since and no further symptoms. Able to return to work without restrictions. Benign essential tremor 10/24/2023 Overview (04/08/2024): Last Assessment & Plan: Tremor stable and continue neurontin. Once off brillinta can resume primidone. Encounter for long-term (current) use of medicat ions 10/24/2023 Vitamin D deficiency 10/24/2023 Edema of both legs 07/22/2023 Overview (04/08/2024): Last Assessment & Plan: Edema stable with lasix and use PRN. Elevate legs PRN. Atherosclerotic heart diseas e of [place] coronary artery without angina pectoris 07/01/2023 Overview (04/08/2024): Last Assessment & Plan: No pain and follow with cardiology. Benign essential HTN 07/01/2023 Overview (04/08/2024): Last Assessment & Plan: BP controlled and monitor PRN. Hyperlipidemia 07/01/2023 Normal pressure hydrocephalus 07/01/2023 Obstructive sleep apnea 07/01/2023 Overweight (BMI 25.0-29.9) 07/01/2023 NSTEMI (non-ST elevated myocardial infarction) 0 04/05/2023 CKD stage 3b, GFR 30-44 ml/min 01/04/2023 Type 2 diabetes mellitus wit h diabetic peripheral angiopathy without gangrene 01/04/2023 Type 2 diabetes mellitus wit h hyperglycemia, with long-term current use of insulin 01/04/2023 Overview (04/08/2024): Last Assessment & Plan: BS elevated with steroids but improved. Monitor. Asymptomatic bradycardia 11/12/2022 CLL (chronic lymphocytic leukemia) 06/27/2022 Overview (04/08/2024): Last Assessment & Plan: Follow with oncology Large granular lymphocytosis 06/27/2022 Bilateral carotid artery stenosis 10/21/2019 Overview (04/08/2024): Last Assessment & Plan: No symptoms and monitor. Claudication 10/21/2019 PAD (peripheral artery disease) 10/21/2019 Overview (04/08/2024): Last Assessment & Plan: Refer to new vascular. Status post angioplasty with stent 08/09/2019 Overview (04/08/2024): Drug-eluting stent to the Obtuse marginal branch and RCA in 2016 Encounters Date Type Department Care Team Description 01/04/2025 1:45 PM EDT Office Visit [address] [phone] Hao Cardona MD Paroxysmal atrial fibrillation (CMS/HCC) (Primary Dx); Pacemaker; Coronary artery disease involving [place] coronary artery of [place] heart without angina pectoris; Heart failure with mildly reduced ejection fraction (HFmrEF, 41-49%) (CMS/HCC); Diastolic dysfunction 12/17/2024 10:10 AM EDT Ancillary Procedure [facility] [address] [place] [phone] Adjustment and management of cardiac pacemaker 12/15/2024 Orders Only [facility] [address] [place] [phone] Milad Arriaga MD 11/01/2024 Refill [facility] [address] [place] [phone] Helga Bob MA Benign hypertensive heart disease without congestive heart failure; Status post angioplasty with stent; NSTEMI (non-ST elevated myocardial infarction) (CMS/HCC); Atherosclerosis of [place] coronary artery of [place] heart without angina pectoris; Gastrointestinal hemorrhage associated with duodenitis; Acute on chronic heart failure with preserved ejection fraction (CMS/HCC); Primary hypertension from Last 3 Months Family History Relation Name Status Comments Father Mother Social History Tobacco Use Types Packs/Day Years Used Date Smoking Tobacco: Former Cigarettes 1 - 07/21/1964 Smokeless Tobacco: Never Tobacco Cessation:Counseling Given: Not Answered Alcohol Use Standard Drinks/Week Comments Not Currently 0 (1 standard drink = 0.6 oz pur e alcohol) [facility] Utilities Answer Date Recorded In the past 12 months has e [employer], gas, oil, or water [employer] threatened to shut off services in your home? No 06/09/2024 Humiliation, Afraid, Rape, and Kick questionnair e Answer Date Recorded Within the last year, have y ou been afraid of your partner or ex-partner? No 2024 Within the last year, have y ou been humiliated or emotionally abused in other ways by your partner or ex-partner? No Within the last year, have y ou been kicked, hit, slapped, or otherwise physically hurt by your partner or ex-partner? No 2024 Within the last year, have y ou been raped or forced to have any kind of sexual activity by your partner or ex-partner? No 2024 Overall Financial Resource Strain (CARDIA) Answe r Date Recorded How hard is it for you to pa y for the very basics like food, housing, medical care, and heating? Not hard at all 06/09/2024 PHQ-2 Answer Date Recorded Patient Health Questionnaire-2 Score 0 2024 Transportation Answer Date Recorded In the past 12 months, has l ack of transportation kept you from medical appointments or from getting medications? No 06/09/2024 Lack of Transportation (Non-Medical) Not on file 06/09/2024 Housing Stability Vital Sign Answer Laureano e Recorded In the last 12 months, was t here a time when you were not able to pay the mortgage or rent on time? No 06/09/2024 In the past 12 months, how m any times have you moved where you were living? 0 06/09/2024 At any time in the past 12 m [facility], were you homeless or living in a long-term (including now)? No 06/09/2024 Hunger Vital Sign Answer Date Recorded Within the past 12 months, y ou worried that your food would run out before you got the money to buy more. Never true 06/09/20 24 Ran Out of Food in the Last Year Not on file 06/09/2024 Sex and Gender Information Value Date Recorded Sex Assigned at Not on file Legal Sex Male 10:53 AM EDT Gender Identity Not on file Sexual Orientation Not on file Last Filed Vital Signs Vital Sign Reading Time Taken Comments Blood Pressure 136/61 01/04/2025 1:51 PM EDT Pulse 69 01/04/2025 1:51 PM EDT Temperature 36.6 C (97.9 F) 06/13/2024 12:00 PM EST Respiratory Rate 19 06/13/2024 1:51 PM EST Oxygen Saturation 95% 01/04/2025 1:51 PM EDT Inhaled Oxygen Concentration - - Weight 78 kg (172 lb) 01/04/2025 1:51 PM EDT Height 172.7 cm (5' 8 ) 01/04/2025 1:51 PM EDT Body Mass Index 26.15 01/04/2025 1:51 PM EDT Plan of Treatment Upcoming Encounters Date Type Department Care Team (Late st Contact Info) Description 02/08/2025 10:45 AM EDT Ancillary Procedure [facility] [address] [place] [address] Health Maintenance Due Date Last Done Comments Medicare Annual Wellness (AWV) 1945 Diabetes: Retinopathy Screening 1957 Diabetes: Urine Protein Screening 1966 Zoster Vaccines (1 of 2) 1966 Adult Tetanus 1969 Pneumococcal Vaccine: 50+ Years (2 of 2 - PPSV23, PCV20, or PCV21) 08/19/2018 06/24/2018 Diabetes: Hemoglobin A1C 10/22/2023 07/23/2023 COVID-19 Vaccine ( season) 2024 05/12/2024, 08/02/2023, 04/02/2022, Additional history exists Influenza Vaccine (#1) 2025 , 08/02/2023, 04/02/2022, Additional history exists Depression Screening 2025 2024 Fall Risk Screening 2025 2024 HIB Vaccines Aged Out No longer eligi ble based on patient's age to complete this topic HPV Vaccines Aged Out No longer eligi ble based on patient's age to complete this topic IPV Vaccines Aged Out No longer eligi ble based on patient's age to complete this topic Meningococcal B Vaccine Aged Out No l onger eligible based on patient's age to complete this topic Meningococcal Vaccine Aged Out No griffin jane eligible based on patient's age to complete this topic Rotavirus Vaccines Aged Out No longer eligible based on patient's age to complete this topic Medical Devices Implanted Type Area Supervisory Aide Device Identifier Shelf Expiration Date Model / Serial / Lot Lead,SharronS 53, - [id number] - [id number] Implanted:Qty: 1 on 06/11/2024 by Adriano Martell MD at [facility] [employer] [id number] 05/20/2026 [id number] / [id number] / Lead,SharronS 45 - [id number] - [id number] Implanted:Qty: 1 on 06/11/2024 by Adriano Martell MD at [facility] [employer] [id number] 05/20/2026 [id number] / [id number] / Pacemaker,Arden Hanna - [id number] - [id number] Implanted:Qty: 1 on 06/11/2024 by Adriano Martell MD at [facility] Pacemaker [employer] [id number] 08/20/2025 [id number] / [id number] / Procedures Procedure Name Priority Date/Time Associated Diagnosis Comments CARDIAC DEVICE CHECK CHECK - REMOTE Routine 12/24/2024 1:43 PM EDT Adjustment and management of cardiac pacemaker CARDIAC DEVICE CHECK - REMOTE - PACEMAKER Routine 12/15/2024 12:00 AM EDT CARDIAC DEVICE CHECK CHECK - REMOTE Routine 11/23/2024 11:02 AM EDT Adjustment and management of cardiac pacemaker from Last 3 Months Results * CARDIAC DEVICE CHECK - REMOTE - PACEMAKER (12/24/2024 1:43 PM EDT) Only the most recent of2 resultswithin the time period is included. Milad Arriaga MD CV IMPLANTABLE CARDIAC DEVICE CA OCEDURES Final Result CPACS * Cardiac device check - Remote pacemaker (12/15/2024 12:00 AM EDT) Anatomical Region Laterality Modality Other 12/15/2024 Milad Arriaga MD CV IMPLANTABLE CARDIAC DEVICE CA OCEDURES Final Result from Last 3 Months Insurance MEDICARE [facility] Advance Directives * Full Code (Latest Code Status on File) Date Activated Date Inactivated Comments 06/09/2024 6:49 PM 06/13/2024 4:50 PM Care Teams Regional Guide Relationship Specialty Start Date End Date Cruzito Eid MD [address] [place] [phone] PCP - General Family Medicine 04/12/24
--- OUTSIDE RECORDS SUMMARY | 2025-01-26 13:29 | XMS_ITS | Encounter Summary ---
Author Organization [employer] [facility] tem Address [facility] [place] [id number] [address] [place] [address] Care Team Providers Care Silverware Cleaner Name Role Phone Cruzito Eid MD Primary Care Provider [phone] Encounter Details Date Type Department Care Team ([facility] st Contact Info) Description 09/03/2023 Telephone [facility] [address] [place] [address] Geneva Sanders, OPERATIONS ARCHITECT-RECRUITING AND SELECTION CONSULTANT [address] [place] [address] Social History Tobacco Use Types Packs/Day Years Used Date Smoking Tobacco: Former Cigarettes 0.5 55 1 96 - 2019 Smokeless Tobacco: Never Comments:4-5 cigarettes per day Alcohol Use Standard Drinks/Week Comments Yes 0 (1 standard drink = 0.6 oz pur e alcohol) once a month AUDIT-C Answer Date Recorded Frequency of Alcohol Consumption Never 08/09/2019 Average Number of Drinks Not on file 020 Frequency of Binge Drinking Not on file 07/22 Overall Financial Resource Strain (CARDIA) Answe r Date Recorded How hard is it for you to pa y for the very basics like food, housing, medical care, and heating? Not hard at all 04/05/2023 PHQ-2 Answer Date Recorded Total Score 0 04/05/2023 PRAPARE - Transportation Answer Date Re corded In the past 12 months, has l ack of transportation kept you from medical appointments or from getting medications? No 03/21 In the past 12 months, has l ack of transportation kept you from meetings, work, or from getting things needed for daily living? No 04/05/2023 Childcare Answer Date Recorded Childcare Unknown 12/30/2018 Employment Answer Date Recorded Employment Unknown 12/30/2018 Hunger Screening Answer Date Recorded Within the past 12 months we worried whether our food would run out before we got money to buy more. Never True 08/27/2023 Within the past 12 months th e food we bought just didn't last and we didn't have money to get more. Never True 08/27/2023 Purpose - Life Answer Date Recorded Purpose and direction in life Unknown Sex and Gender Information Value Date Recorded Sex Assigned at Male 04/26/2024 4:28 AM EDT Legal Sex Male 11:28 AM EDT Gender Identity Male 04/26/2024 4:28 AM EDT Sexual Orientation Straight 04/26/2024 4: 28 AM EDT documented as of this encounter Miscellaneous Notes * Telephone Encounter - Marcial Sutton MD - 09/03/2023 12:56 PM EST Since the patient is completely asymptomatic, there is no reason for him not to drive. Pacemaker is patient's choice. From my end, he can drive. documented in this encounter Plan of Treatment Not on file documented as of this encounter Visit Diagnoses Not on filedocumented in this encounter Additional Health Concerns Infection Onset Date Last Indicated Resolved Time COVID-19 Rule-Out 04/26/2024 04/26/2024 04/26/2024 11:56 AM EDT Assessment Noted Time PHQ-9 Depression Total Score: 0 04/05/20 23 12:19 PM EDT documented as of this encounter Care Teams Silverware Cleaner Relationship Specialty Start Date End Date Cruzito Eid MD PCP - General Family Medicine 04/19/21 documented as of this encounter
--- OUTSIDE RECORDS SUMMARY | 2025-01-26 13:29 | XMS_ITS ---
Author Organization [facility] Address [address] [place] [address] Care Team Providers Care Manager Placement Name Role Phone Cruzito Eid MD Primary Care Provider [phone] Active Problems Problem Noted Date Diagnosed Date [...] legs PRN. Atherosclerotic heart diseas e of circle coronary artery without angina pectoris 07/01/2023 Overview [...] Obtuse marginal branch and RCA in 2016 Current Treatment and Therapy Plans No current plan information found. Past Treatment and Therapy Plans No past plan information found. Lifetime Dose Tracking * Chemical Lifetime Dose Automatic Entry Manual Entr y Fluoro Time 3 minutes 0 minutes 3 minutes Air Kerma 14 mGy 0 mGy 14 mGy
--- OUTSIDE RECORDS SUMMARY | 2025-01-26 13:29 | XMS_ITS | Encounter Summary ---
Author Organization [facility] tem Address [id number] [address] [place] [address] Care Team Providers Care Insole Department Worker Name Role Phone Cruzito Eid MD Primary Care Provider [phone] Reason for Referral * Consultation (Routine) - Closed Specialty Diagnoses / Procedures Referred By Contrebeka t Referred To Contact Vascular Surgery Diagnoses Bilateral carotid artery stenosis Santa Hernandez APRN-CNP [address] [place] [address] Phone: tel: fax: Marty Vasquez MD Phone: tel:[phone] fax: Referral ID Status Reason Start Date Expiration Date V isits Requested Visits Authorized [id number] Closed Specialty Services Required 02/07/2023 02/07/2024 1 1 Encounter Details Date Type Department Care Team (Late st Contact Info) Description 02/07/2023 Orders Only [facility] [address] [place] [phone] Samra Cole RN Bilateral carotid artery stenosis (Primary Dx) Social History Tobacco Use Types Packs/Day Years Used Date Smoking Tobacco: Former Cigarettes 0.5 55 1 2019 Smokeless Tobacco: Never Comments:4-5 cigarettes per day Alcohol Use Standard Drinks/Week Comments Yes 0 (1 standard drink = 0.6 oz pur e alcohol) once a month AUDIT-C Answer Date Recorded Frequency of Alcohol Consumption Never 08/09/2019 Average Number of Drinks Not on file 020 Frequency of Binge Drinking Not on file 07/22 Childcare Answer Date Recorded Childcare Unknown 12/30/2018 Employment Answer Date Recorded Employment Unknown 12/30/2018 Purpose - Life Answer Date Recorded Purpose and direction in life Unknown Sex and Gender Information Value Date Recorded Sex Assigned at Male 04/26/2024 4:28 AM EDT Legal Sex Male 11:28 AM EDT Gender Identity Male 04/26/2024 4:28 AM EDT Sexual Orientation Straight 04/26/2024 4: 28 AM EDT documented as of this encounter Plan of Treatment Scheduled Referrals Name Type Priority Associated Diagnoses Order Schedule Ambulatory referral to Vascular Surgery Outpatient Referral Routine Bilateral carotid artery stenosis 1 Occurrences starting 02/07/2023 until 02/08/2024 documented as of this encounter Visit Diagnoses Diagnosis Bilateral carotid artery stenosis- Primary Occlusion and stenosis of carotid artery without mention of cerebral infarction documented in this encounter Additional Health Concerns Infection Onset Date Last Indicated Resolved Time COVID-19 Rule-Out 04/26/2024 04/26/2024 04/26/2024 11:56 AM EDT documented as of this encounter Care Teams Insole Department Worker Relationship Specialty Start Date End Date Cruzito Eid MD PCP - General Family Medicine 04/19/21 documented as of this encounter
--- OUTSIDE RECORDS SUMMARY | 2025-01-26 13:29 | XMS_ITS | Encounter Summary ---
[facility] [id number] [address] [place] [address] Care Team Providers Care Owner Name Role Phone Cruzito Eid MD Primary Care Provider [phone] Encounter Details Date Type Department Care Team (Late st Contact Info) Description 10/23/2020 Orders Only [facility] [address] [place] [phone] External, Scanning Provider Social History Tobacco Use Types Packs/Day Years Used Date Smoking Tobacco: Former Smokeless Tobacco: Never Alcohol Use Standard Drinks/Week [...] Orientation Straight 04/26/2024 4: 28 AM EDT COVID-19 Exposure Response Date Recorded In the last month, have you been in contact with someone who was confirmed or suspected to have Coronavirus / COVID-19? No / Unsure 10/20/2020 10:47 AM EDT documented as of this encounter Plan of Treatment Not on file documented as of this encounter Procedures Procedure Name Priority Date/Time Associated Diagnosis Comments MULTIPLE LABS Routine 10/12/2020 LIPID PROFILE Routine 10/12/2020 documented in this encounter Results * Multiple labs (10/12/2020) us Scanning Provider External [place] IMAGING Final Result Performing Organization Address City/[facility]/ZIP Co de Phone Number MANUALLY TRANSCRIBED RESULTS * Lipid profile (10/12/2020) External Cholesterol 110 MANUALLY TRANSCRIBED RESULTS External Hdl Cholesterol 42 MANUALLY TRANSCRIBED RESULTS External Triglycerides 140 MANUALLY TRANSCRIBED RESULTS us Scanning Provider External LAB BLOOD ORDERABLES Edited Result - Final Performing Organization Address [facility] Co de Phone Number MANUALLY TRANSCRIBED RESULTS documented in this encounter Visit Diagnoses Not on filedocumented in this encounter Additional Health Concerns Infection Onset Date Last Indicated Resolved Time COVID-19 Rule-Out 04/26/2024 04/26/2024 04/26/2024 11:56 AM EDT documented as of this encounter Care Teams Owner Relationship Specialty Start Date End Date Cruzito Eid MD PCP - General Family Medicine 04/19/21 documented as of this encounter
--- OUTSIDE RECORDS SUMMARY | 2025-01-26 13:29 | XMS_ITS | Encounter Summary ---
Author Organization [facility] tem Address [facility] [id number] [address] [place] [address] Care Team Providers Care Ruffling Machine Operator Name Role Phone Cruzito Eid MD Primary Care Provider [phone] Reason for Visit * Reason Comments Med Refill Encounter Details Date Type Department Care Team (Late st Contact Info) Description 04/27/2018 Refill [facility] [address] [phone] Santa Hernandez, REMOTE ADVISOR-MICROSTRATEGY BI DEVELOPER [address] [place] [address] Med Refill Social History Tobacco Use Types Packs/Day Years Used Date Smoking Tobacco: Never Assessed Sex and Gender Information Value Date Recorded Sex Assigned at Male 04/26/2024 4:28 AM EDT Legal Sex Male 11:28 AM EDT Gender Identity Male 04/26/2024 4:28 AM EDT Sexual Orientation Straight 04/26/2024 4: 28 AM EDT documented as of this encounter Miscellaneous Notes * Telephone Encounter - Samra Mansfield RN - 04/27/2018 3:13 PM EDT Pt needs appt, has not been since since 08/2016. documented in this encounter Plan of Treatment Not on file documented as of this encounter Visit Diagnoses Not on filedocumented in this encounter Additional Health Concerns Infection Onset Date Last Indicated Resolved Time COVID-19 Rule-Out 04/26/2024 04/26/2024 04/26/2024 11:56 AM EDT documented as of this encounter Care Teams Ruffling Machine Operator Relationship Specialty Start Date End Date Cruzito Eid MD PCP - General Family Medicine 04/19/21 documented as of this encounter
--- OUTSIDE RECORDS SUMMARY | 2025-01-26 13:29 | XMS_ITS | Encounter Summary ---
Author Organization [email or web address] tem Address [facility] [id number] [address] [place] [address] Care Team Providers Care Geriatric Nursing Assistant Name Role Phone Cruzito Eid MD Primary Care Provider [phone] Reason for Visit * Reason Onset Date Comments Med Refill 07/24/2018 Encounter Details Date Type Department Care Team (Late st Contact Info) Description 07/24/2018 Refill [facility] [address] [place] [phone] Yang Flanagan Med Refill Social History Tobacco Use Types [...] documented as of this encounter Care Teams Geriatric Nursing Assistant Relationship Specialty Start Date End Date Cruzito Eid MD PCP - General Family Medicine 04/19/21 documented as of this encounter
--- OUTSIDE RECORDS SUMMARY | 2025-01-26 13:29 | XMS_ITS | Patient Health Record ---
Author Organization [facility] [place] Address [address] [place] [address] Care Team Providers Care Web Applications Architect Name Role Phone Cruzito Eid MD Primary Care Provider Maik cormier RheaJames [phone] Allergies No Known Allergies Reason For Referral No Information Medications Medication SIG (Take, Route, Frequency, Duration) Notes Start Date End Date Status Super Villard 3 Active Resveratrol 250 MG as directed Orally Active Vitamin C Active Rosuvastatin Calcium 40 [...] Active Co Q 10 Active Calcium Active Brilinta Not-Taking amLODIPine Besylate 10 MG 1 tablet Orally Once a day for 30 days Active Aspirin 81 MG 1 tablet Orally Once a day Active Bumetanide 1 MG 1 tablet Orally Once a day Active Centrum Silver Ultra Mens Active Pantoprazole Sodium 40 MG 1 tablet 1/2 to 1 hour before morning meal Orally Once a day Active Pravastatin Sodium N ot-Taking Gabapentin 300 MG 1 capsule Orally Three a day Active Plavix 75 mg 1 tablet QD Acti ve Losartan Potassium 50 MG 1 tablet Orally Once a day Active Magnesium 250 MG 2 tablet with a meal Orally Once a day Active Potassium Gluconate 595 (99 K) MG 1 tablet Orally Once a day Active glipiZIDE 10 MG 1 tablet 30 minutes before breakfast Orally Once a day for 30 day(s) Active Primidone 50 MG 1 tablet Orally Once a day Active Carvedilol 3.125 MG 1 tablet with food Orally Twice a day for 30 days Active Zinc Active Vitamin D3 Active CPAP - mask, headgear, chinstrap, heated tubing, heated humidifier, filters, all supplies needed PRN for 365 days 08/30/2024 Active Immunizations Vaccine Route Administration Date Status Comme nts Flu, Unspecified Unknown 08/05/2018 Administered Problems Problem Type SNOMED Code ICD Code Onset Dates Problem Status W/U Status Risk Notes Problem 934341327 Insufficient sleep syndrome (F51.12) Active confirmed Problem Periodic limb movement disorder (710789189) Periodic limb movement disorder (G47.61) Active confirmed Problem 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) CSA (central sleep apnea) (G47.31) Active confirmed Problem Obstructive sleep apnea syndrome (51477183) Severe obstructive sleep apnea (G47.33) Active confirmed Problem Idiopathic sleep related non-obstructive alveolar hypoventilation (453086212) Hypoxia, sleep related (G47.34) Active confirmed Problem 11094457 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 Problem 58026042 Obstructive sleep apnea syndrome, severe (G47.33) Active confirmed Problem Abnormal REM sleep (29366694) 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) Active confirmed Vital Signs Heart Rate 71 /min 08/30/2024 Blood pressure diastolic 62 mm Hg 08/30/2024 Oximetry 93 % 08/30/2024 Height 68 in 08/30/2024 Blood pressure systolic 122 mm Hg 08/30/2024 Weight 164 lbs 08/30/2024 BMI 24.93 kg/m2 08/30/2024 Procedures Procedure Date Ordered Date Performed Result Body Sit e Bipap Re Titration 08/30/2024 N/A Encounters Encounter Location Date Provider Diagnosis [facility] [address] [place] [address] 09/07/2024 James Wilkerson [facility] [address] [place] [address] 08/30/2024 James Wilkerson CSA (central sleep apnea) [...] Rate set at auto Patient will contact [employer] scheduling at [phone] 08/30/2024 Severe obstructive sleep apnea (ICD-10 - G47.33) Continue on BiPAP auto SV with a minimum EPAP of 7 centimeters, a maximum EPAP of 11 centimeters, a minimum PS of 0 maximum PS of 10. He'll be issued a prescription for new CPAP supplies for 1 year. It will be faxed to his DME, [facility] in [place]. . Sleep apnea material was printed 08/30/2024 Periodic limb movement disorder (ICD-10 - G47.61) Patient does not need treatment of his PLMD 08/30/2024 Abnormal REM sleep (ICD-10 - G47.52) The movements in sleep not severe enough to place the patient on clonazepam. He'll continue on melatonin 10 milligrams at bedtime Plan Of Treatment Pending Test Test Name Order Date Bipap Re Titration 08/30/2024 Insurance Providers Payer Name Payer Address Payer Phone Subscriber Number Group Number Insured Name Patient Relationship to Insured Coverage Start Date Coverage End Date [place] [address] [place] [address] [phone] [id number] Rojas Cedric Self - patient is the insured 2 [facility] [address] [place] [address] [phone] [id number] Cedric Rojas Self - patient is the insured 2 Medical (General) History Medical History History ICD Code Central sleep apnea syndrome G47.31 Obstructive sleep apnea syndrome G47.33 Surgical History Surgery Date(Month/Year) Heart - Stents Tonsil leg blockage x's 2 2020 Hospitalization History Reason Date(Month/Year) above
--- OUTSIDE RECORDS SUMMARY | 2025-01-26 13:29 | XMS_ITS | Encounter Summary ---
[facility] Address [id number] [address] [place] [address] Care Team Providers Care Motor And Generator Assembler Name Role Phone Cruzito Eid MD Primary Care Provider [phone] Encounter Details Date Type Department Care Team (Late st Contact Info) Description 10/23/2020 Orders Only [facility] [address] [place] [phone] External, Scanning Provider Social History Tobacco Use [...] Date/Time Associated Diagnosis Comments MULTIPLE LABS Routine 03/30/2020 documented in this encounter Results * Multiple labs (03/30/2020) us Scanning Provider External CT IMAGING Final Result MANUALLY TRANSCRIBED RESULTS documented in this encounter Visit Diagnoses Not on filedocumented in this encounter Additional Health Concerns Infection Onset Date Last Indicated Resolved Time COVID-19 Rule-Out 04/26/2024 04/26/2024 04/26/2024 11:56 AM EDT documented as of this encounter Care Teams Motor And Generator Assembler Relationship Specialty Start Date End Date Cruzito Eid MD PCP - General Family Medicine 04/19/21 documented as of this encounter
--- OUTSIDE RECORDS SUMMARY | 2025-01-26 13:29 | XMS_ITS | Encounter Summary ---
Author Organization [facility] Address [address] [place] [address] Care Team Providers Care Medical Record Technician Name Role Phone Cruzito Eid MD Primary Care Provider [phone] Cruzito Eid MD Unavailable Moon Pierce MA Unavailable [phone] Encounter Details Date Type Department Care Team ([facility] Contact Info) Description 06/11/2024 Orders Only [facility] [address] [place] [address] Cruzito Eid MD [address] [place] [address] Social History Tobacco Use Types Packs/Day Years [...] week 04/25/2024 How often do you attend [facility] or anabaptist services? More than 4 times per year 04/25/2024 Do you belong to any clubs o r organizations such as cheondoism groups, unions, fraternal or athletic groups, or [...] and heating? Not hard at all 04/25/2024 [facility] - Occupational Stress [...] any time in the past 12 m onths, were you homeless or living in a senior care (including now)? No 04/25/2024 Sex and Gender Information Value Date Recorded Sex Assigned at Not on file Legal Sex Male 7:25 PM EDT Gender Identity Not on file Sexual Orientation Not on file documented as of this encounter Plan of Treatment Upcoming Encounters Date Type Department Care Team (Late st Contact Info) Description 05/12/2025 10:45 AM EDT Office Visit [facility] [address] [place] [address] Cruzito Eid MD [address] [place] [address] 07/07/2025 1:45 PM EST Office Visit [facility] [address] [place] [address] Luna Wong MD [address] [place], [place] [phone] documented as of this encounter Procedures Procedure Name Priority Date/Time Associated Diagnosis Comments RHYTHM ECG, REPORT Routine 06/11/2024 11:49 AM EST documented in this encounter Results * ECG Rhythm Report (06/11/2024 11:49 AM EST) us Cruzito Eid MD IN CLINIC/BEDSIDE ORDERABLES Fin al Result documented in this encounter Visit Diagnoses Not on filedocumented in this encounter Care Teams Medical Record Technician Relationship Specialty Start Date End Date Cruzito Eid MD [address] [place] [address] PCP - General Family Medicine 04/20/23 Cruzito Eid MD [address] [place] [address] PCP - ACO Reach 08/27/24 Moon Pierce MA [address] [place] [address] Family Medicine 10/13/24 10/20/24 documented as of this encounter
--- OUTSIDE RECORDS SUMMARY | 2025-01-26 13:29 | XMS_ITS | Encounter Summary ---
Author Organization [facility] Address [address] [place] [address] Care Team Providers Care Provider Relations Specialist Name Role Phone Cruzito Eid MD Primary Care Provider [phone] Source Comments In the event this information is protected by the Federal Confidentiality of Alcohol and Drug AbusePatient Records regulations: The Federal rules restrict any use of the information to criminally investigate or prosecute any alcohol or drug abuse patient.[facility] Encounter Details Date Type Department Care Team (Latest Contact Info) Description 06/18/2022 H&P External-NonCCF Provider, External, PA-C Do not enter address information under generic External Provider. Social History Tobacco Use Types Packs/Day Years Used Date Smoking Tobacco: Every Day Cigarettes Passive Smoke Exposure: Current Smokeless Tobacco: Never Sex and Gender Information Value Date Recorded Sex Assigned at Not on file Legal Sex Male 2:29 PM EST Gender Identity Not on file Sexual Orientation Not on file COVID-19 Exposure Response Date Recorded In the last 10 days, have yo u been in contact with someone who was confirmed or suspected to have Coronavirus/COVID-19? No / Unsure 06/21/2022 1:57 PM EST documented as of this encounter Plan of Treatment Upcoming Encounters Date Type Department Care Team (Latest Contact Info) Description 04/25/2025 11:00 AM EDT Office Visit [facility] [address] [place] [address] 6 month lab prior to follow up 05/02/2025 11:00 AM EDT Visit (SP) Office Hematology/Oncology [facility] [place] [address] Angelina Manuel APRN.INSTRUMENT REPAIR SPECIALIST [address] [place] [address] 6 month follow up possible monoferric 05/02/2025 11:30 AM EDT Infusion Center Hematology/Oncology [facility] [place] [address] 6 month follow up possible monoferric documented as of this encounter Visit Diagnoses Not on filedocumented in this encounter Care Teams Provider Relations Specialist Relationship Specialty Start Date End Date Cruzito Eid MD [address] [place] [address] PCP - General Family Medicine 06/21/22 documented as of this encounter
--- OUTSIDE RECORDS SUMMARY | 2025-01-26 13:29 | XMS_ITS | Encounter Summary ---
Author Organization [facility] tem Address [facility]-[id number] [address] [place] [address] Care Team Providers Care Novelty Balloon Assembler And Packer Name Role Phone Cruzito Eid MD Primary Care Provider [phone] Reason for Visit * Reason Comments Med Refill Encounter Details Date Type Department Care Team (Late st Contact Info) Description 07/24/2018 Refill [facility] [address] [phone] Santa Hernandez, AUTOMOTIVE PARTS SPECIALIST-HOTEL SECURITY OFFICER [address] [place] [address] Med Refill Social History Tobacco Use Types Packs/Day Years Used Date Smoking Tobacco: Never Assessed Sex and Gender Information Value Date Recorded Sex Assigned at Male 04/26/2024 4:28 AM EDT Legal Sex Male 11:28 AM EDT Gender Identity Male 04/26/2024 4:28 AM EDT Sexual Orientation Straight 04/26/2024 4: 28 AM EDT documented as of this encounter Miscellaneous Notes * Telephone Encounter - Jordana Lizarraga RN - 07/24/2018 5:30 AM EST Pt needs appt for further refills. Last seen in 2016. * Telephone Encounter - Yang Flanagan - 07/24/2018 5:30 AM EST 07/24/18 lmr to [facility] documented in this encounter Plan of Treatment Not on file documented as of this encounter Visit Diagnoses Not on filedocumented in this encounter Additional Health Concerns Infection Onset Date Last Indicated Resolved Time COVID-19 Rule-Out 04/26/2024 04/26/2024 04/26/2024 11:56 AM EDT documented as of this encounter Care Teams Novelty Balloon Assembler And Packer Relationship Specialty Start Date End Date Cruzito Eid MD PCP - General Family Medicine 04/19/21 documented as of this encounter
--- OUTSIDE RECORDS SUMMARY | 2025-01-26 13:29 | XMS_ITS ---
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 Other Current Plans AMB FERRIC DERISOMALTOSE ONCE* Plan Start Date:07/28/2024 Plan Provider:Angelina Manuel APRN.MENTAL HEALTH COORDINATOR Linked Problems Other iron deficiency anemia Treatment Medications ferric derisomaltose iv piggyback in NaCl 0.9% 1 00 mL (MONOFERRIC) Past Treatment and Therapy Plans
--- OUTSIDE RECORDS SUMMARY | 2025-01-26 13:29 | XMS_ITS | Encounter Summary ---
Author Organization [facility] Address [address] [place] [address] Care Team Providers Care Low Pressure Kettle Operator Name Role Phone Cruzito Eid MD Primary Care Provider [phone] Cruzito Eid MD Unavailable Moon Pierce MA Unavailable [phone] Encounter Details Date Type Department Care Team (Late Contact Info) Description 05/25/2024 Orders Only [facility] [address] [place] [address] Hao Cardona MD [address] [facility] [address] [facility] [place] [address] Social History Tobacco Use Types Packs/Day Years [...] week 04/25/2024 How often do you attend chur ch or taoism services? More than 4 times per year 04/25/2024 Do you belong to any clubs o r organizations such as caodaism groups, unions, fraternal or athletic groups, or [...] and heating? Not hard at all 04/25/2024 [facility] Occupat ional Health - Occupational Stress [...] any time in the past 12 m [facility], were you homeless or living in a longterm (including now)? No 04/25/2024 Sex and Gender Information Value Date Recorded Sex Assigned at Not on file Legal Sex Male 7:25 PM EDT Gender Identity Not on file Sexual Orientation Not on file documented as of this encounter Plan of Treatment Upcoming Encounters Date Type Department Care Team (Late st Contact Info) Description 05/12/2025 10:45 AM EDT Office Visit [facility] [address] [place] [address] Cruzito Eid MD [address] [place] [address] 07/07/2025 1:45 PM EST Office Visit [facility] [address] [place] [address] Luna Wong MD [address] [place] [address] documented as of this encounter Procedures Procedure Name Priority Date/Time Associated Diagnosis Comments STRESS TEST Routine 04/19/2024 8:58 AM EDT documented in this encounter Results * STRESS TEST (04/19/2024 8:58 AM EDT) Anatomical Region Laterality Modality Radiographic Eloina ging Ehab Dulce REYES IMG XR PROCEDURES Final Result documented in this encounter Visit Diagnoses Not on filedocumented in this encounter Care Teams Low Pressure Kettle Operator Relationship Specialty Start Date End Date Cruzito Eid MD [address] [place] [address] PCP - General Family Medicine 04/20/23 Cruzito Eid MD [address] [place] [address] PCP - ACO Reach 08/27/24 Moon Pierce MA [address] [place] [address] Family Medicine 10/13/24 10/20/24 documented as of this encounter
--- OUTSIDE RECORDS SUMMARY | 2025-01-26 13:29 | XMS_ITS ---
Author Organization [facility] tem Address [id number] [address] [place] [address] Care Team Providers Care Machine Dyer Name Role Phone Cruzito Eid MD Primary Care Provider [phone] Active Problems Problem Noted Date Diagnosed Date [...] in 2016 Coronary artery disease invo lving [place] coronary artery of [place] heart without angina pectoris Abnormal result of cardiovas cular function study, unspecified Hypertension Type 2 diabetes mellitus wit h diabetic peripheral angiopathy without gangrene Current Treatment and Therapy Plans No current plan information found. Past Treatment and Therapy Plans No past plan information found. Lifetime Dose Tracking * Chemical Lifetime Dose Automatic Entry Manual Entr y Fluoroscopy 1,368 mGy 0 mGy 1,368 mGy
--- OUTSIDE RECORDS SUMMARY | 2025-01-26 13:30 | XMS_ITS | Encounter Summary ---
Author Organization [facility] Address [address] [place] [address] Care Team Providers Care Social Work Nurse Name Role Phone Cruzito Eid MD Primary Care Provider [phone] Cruzito Eid MD Unavailable Reason for Visit * Reason Comments Med Refill Encounter Details Date Type Department Care Team ([facility] st Contact Info) Description 01/[facility]20[facility] [address] [place] [address] Cruzito Eid MD [address] [place] [address] Benign essential tremor Social History Tobacco Use Types Packs/Day Years [...] week 04/25/2024 How often do you attend [facility] or buddhism services? More than 4 times per year 04/25/2024 Do you belong to any clubs o r organizations such as yazdanism groups, unions, fraternal or athletic groups, or [...] and heating? Not hard at all 04/25/2024 PHQ-2 Answer Date Recorded Patient Health Questionnaire-2 Score 0 11/10/2024 [facility] - Occupational Stress Questionnaire Answer Date Recorded [...] any time in the past 12 m [facility], were you homeless or living in a detention (including now)? No 04/25/2024 Sex and Gender Information Value Date Recorded Sex Assigned at Not on file Legal Sex Male 7:25 PM EDT Gender Identity Not on file Sexual Orientation Not on file documented as of this encounter Miscellaneous Notes * Telephone Encounter - ABBEY HAMMER - 01/25/2025 8:18 AM EDT [facility]ICATION [facility] documented in this encounter Plan of Treatment Upcoming Encounters Date Type Department Care Team (Late st Contact Info) Description 05/12/2025 10:45 AM EDT Office Visit [facility] [address] [place] [phone] Cruzito Eid MD [address] [place] [address] 07/07/2025 1:45 PM EST Office Visit [facility] [address] [place] [address] Luna Wong MD [address] [place] [address] documented as of this encounter Visit Diagnoses Diagnosis Benign essential tremor Essential and other specified forms of tremor documented in this encounter Additional Health Concerns Assessment Noted Time PHQ-9 Depression Total Score: 1 11/11/19 25 10:00 AM EDT documented as of this encounter Care Teams Social Work Nurse Relationship Specialty Start Date End Date Cruzito Eid MD [address] [place] [address] PCP - General Family Medicine 04/20/23 Cruzito Eid MD [address] [place] [address] PCP - ACO Reach 08/27/24 documented as of this encounter
--- OUTSIDE RECORDS SUMMARY | 2025-01-26 13:30 | XMS_ITS | Encounter Summary ---
Author Organization [facility] Address [address] [place] [address] Care Team Providers Care Automotive Tire Technician Name Role Phone Cruzito Eid MD Primary Care Provider [phone] Reason for Visit * Reason Comments Med Refill Encounter Details Date Type Department Care Team (Late st Contact Info) Description 03/29/2024 [facility] [address] [place] [address] Robert Jeffries MD [address] [place] [address] Med Refill Social History Tobacco Use Types [...] Description 02/08/2025 10:45 AM EDT Ancillary Procedure [facility] [address] [place] [address] documented as of this encounter Visit Diagnoses Not on filedocumented in this encounter Care Teams Automotive Tire Technician Relationship Specialty Start Date End Date Cruzito Eid MD [address] [place] [address] PCP - General Family Medicine 04/12/24 documented as of this encounter
--- OUTSIDE RECORDS SUMMARY | 2025-01-26 13:30 | XMS_ITS | Encounter Summary ---
Author Organization [facility] Address [address] [facility] [place] [address] Care Team Providers Care Lighting Adviser Name Role Phone Cruzito Eid MD Primary Care Provider [phone] Cruzito Eid MD Unavailable Moon Pierce MA Unavailable [phone] Encounter Details Date Type Department Care Team (Late Contact Info) Description 12/29/2023 Orders Only [facility] [address] [place] [address] Arminda Valverde MD [address] [place] [address] Social History Tobacco Use Types Packs/Day Years Used Date Smoking Tobacco: Former Cigarettes Q uit: 2016 Smokeless Tobacco: Never Alcohol Use Standard Drinks/Week [...] Encounters Date Type Department Care Team (Late Contact Info) Description 05/12/2025 10:45 AM EDT Office Visit [facility] [address] [place] [address] Cruzito Eid MD [address] [place] [address] 07/07/2025 1:45 PM EST Office Visit [facility] [address] [place] [address] Luna Wong MD [address] [place] [address] documented as of this encounter Procedures Procedure Name Priority Date/Time Associated Diagnosis Comments XR CHEST 2 VIEWS Routine 12/29/2023 3:10 PM EDT ELECTROCARDIOGRAM REPORT Routine 024 3:20 PM EDT documented in this encounter Results * XR chest 2 views (12/29/2023 3:10 PM EDT) Anatomical Region Laterality Modality Chest Radiographic Eloina ging us Arminda Valverde MD IMG XR PROCEDURES Final Result * Electrocardiogram Report (12/28/2023 3:20 PM EDT) us Cruzito Eid MD IN CLINIC/BEDSIDE ORDERABLES Fin al Result documented in this encounter Visit Diagnoses Not on filedocumented in this encounter Care Teams Lighting Adviser Relationship Specialty Start Date End Date Cruzito Eid MD [address] [place] [address] PCP - General Family Medicine 04/20/23 Cruzito Eid MD [address] [place] [address] PCP - ACO Reach 08/27/24 Moon Pierce MA [address] [place] [address] Family Medicine 10/13/24 10/20/24 documented as of this encounter
--- OUTSIDE RECORDS SUMMARY | 2025-01-26 13:30 | XMS_ITS | Encounter Summary ---
Author Organization [facility] Address [address] [place] [address] Care Team Providers Care Body Repairer Name Role Phone Cruzito Eid MD Primary Care Provider [phone] Cruzito Eid MD Unavailable Moon Pierce MA Unavailable [phone] Encounter Details Date Type Department Care Team ([facility] Contact Info) Description 07/24/2023 Orders Only [facility] [address] [place] [address] Cruzito Eid MD [address] [place] [address] Social History Tobacco Use Types [...] Upcoming Encounters Date Type Department Care Team ([facility] Contact Info) Description 05/12/2025 10:45 AM EDT Office Visit [facility] [address] [place] [address] Cruzito Eid MD [address] [place] [address] 07/07/2025 1:45 PM EST Office Visit [facility] [address] [place] [address] Luna Wong MD [address] [place] [address] documented as of this encounter Visit Diagnoses Not on filedocumented in this encounter Care Teams Body Repairer Relationship Specialty Start Date End Date Cruzito Eid MD [address] [place] [address] PCP - General Family Medicine 04/20/23 Cruzito Eid MD [address] [place] [address] PCP - ACO Reach 08/27/24 Moon Pierce MA [address] [place] [address] Family Medicine 10/13/24 10/20/24 documented as of this encounter
--- OUTSIDE RECORDS SUMMARY | 2025-01-26 13:30 | XMS_ITS | Encounter Summary ---
Author Organization [facility] Address [address] [facility] [place] [address] Care Team Providers Care Woodworker Helper Name Role Phone Cruzito Eid MD Primary Care Provider [phone] Cruzito Eid MD Unavailable Moon Pierce MA Unavailable [phone] Encounter Details Date Type Department Care Team (Late Contact Info) Description 01/08/2023 Abstract [facility] [address] [place] [address] Luna Wong MD [address] [place], [place] [phone] Social History Tobacco Use Types Packs/Day Years Used Date Smoking Tobacco: Former Cigarettes Alcohol Use Standard Drinks/Week Comments Yes 0 (1 standard drink = 0.6 oz pur e alcohol) Sex and Gender Information Value Date Recorded Sex Assigned at Not on file Legal Sex Male 7:25 PM EDT Gender Identity Not on file Sexual Orientation Not on file documented as of this encounter Plan of Treatment Upcoming Encounters Date Type Department Care Team (Late Contact Info) Description 05/12/2025 10:45 AM EDT Office Visit [facility] [address] [place] [address] Cruzito Eid MD [address] [place] [address] 07/07/2025 1:45 PM EST Office Visit [facility] [address] [place] [address] Luna Wong MD [address] [place] [address] documented as of this encounter Visit Diagnoses Not on filedocumented in this encounter Care Teams Woodworker Helper Relationship Specialty Start Date End Date Cruzito Eid MD [address] [place] [address] PCP - General Family Medicine 04/20/23 Cruzito Eid MD [address] [place] [address] PCP - ACO Reach 08/27/24 Moon Pierce MA [address] [place] [address] Family Medicine 10/13/24 10/20/24 documented as of this encounter
--- OUTSIDE RECORDS SUMMARY | 2025-01-26 13:30 | XMS_ITS | Encounter Summary ---
Author Organization [facility] Address [address] [place] [address] Care Team Providers Care Vortex Operator Name Role Phone Cruzito Eid MD Primary Care Provider [phone] Cruzito Eid MD Unavailable Encounter Details Date Type Department Care Team (Late st Contact Info) Description 12/27/2024 [facility] [address] [place] [address] Cruzito Eid MD [address] [place] [address] Social History Tobacco Use Types Packs/Day Years [...] week 04/25/2024 How often do you attend [facility] or adventism services? More than 4 times per year 04/25/2024 Do you belong to any clubs o r organizations such as confucianist groups, unions, fraternal or athletic groups, or [...] Recorded Patient Health Questionnaire-2 Score 0 11/10/2024 [facility] - Occupational [...] any time in the past 12 m [facility], were you homeless or living in a [...] 05/12/2025 10:45 AM EDT Office Visit [facility] [address] [place] [address] Cruzito Eid MD [address] [place] [address] 07/07/2025 1:45 PM EST Office Visit [facility] [address] [place] [address] Luna Wong MD [address] [place] [address] documented as of this encounter Procedures Procedure Name Priority Date/Time Associated Diagnosis Comments SCANNED LABS Routine 12/27/2024 2:55 PM EDT documented in this encounter Results * SCANNED LABS (12/27/2024 2:55 PM EDT) us Cruzito Eid MD LAB CHG PERFORMABLES Final Resul t documented in this encounter Visit Diagnoses Not on filedocumented in this encounter Additional Health Concerns Assessment Noted Time PHQ-9 Depression Total Score: 1 11/11/19 25 10:00 AM EDT documented as of this encounter Care Teams Vortex Operator Relationship Specialty Start Date End Date Cruzito Eid MD [address] [place] [address] PCP - General Family Medicine 04/20/23 Cruzito Eid MD [address] [place] [address] PCP - ACO Reach 08/27/24 documented as of this encounter
--- OUTSIDE RECORDS SUMMARY | 2025-01-26 13:30 | XMS_ITS | Encounter Summary ---
Author Organization [facility] Address [address] [place] [address] Care Team Providers Care Secret Code Expert Name Role Phone Cruzito Eid MD Primary Care Provider [phone] Cruzito Eid MD Unavailable Encounter Details Date Type Department Care Team (Late st Contact Info) Description 12/15/2024 Abstract [facility] [address] [place] [address] Cruzito Eid MD [address] [place] [address] Social History Tobacco Use Types Packs/Day Years [...] 04/25/2024 How often do you attend [facility] or tenriism services? More than 4 times per year 04/25/2024 Do you belong to any clubs o r organizations such as episcopalian groups, unions, fraternal or athletic groups, or [...] Recorded Patient Health Questionnaire-2 Score 0 11/10/2024 [facility] - Occupational Stress [...] were you homeless or living in a snf (including now)? No 04/25/2024 Sex and Gender [...] Office Visit [facility] [address] [place] [address] Cruzito Eid MD [address] [place] [address] 07/07/2025 1:45 PM EST Office Visit [facility] [address] [place] [address] Luna Wong MD [address] [place] [address] documented as of this encounter Visit Diagnoses Not on filedocumented in this encounter Additional Health Concerns Assessment Noted Time PHQ-9 Depression Total Score: 1 11/11/19 25 10:00 AM EDT documented as of this encounter Care Teams Secret Code Expert Relationship Specialty Start Date End Date Cruzito Eid MD [address] [place] [address] PCP - General Family Medicine 04/20/23 Cruzito Eid MD [address] [place] [address] PCP - ACO Reach 08/27/24 documented as of this encounter
--- OUTSIDE RECORDS SUMMARY | 2025-01-26 13:30 | XMS_ITS | Encounter Summary ---
Author Organization [facility] Address [address] [place] [address] Care Team Providers Care Digital Developer Name Role Phone Cruzito Eid MD Primary Care Provider [phone] Cruzito Eid MD Unavailable Moon Pierec MA Unavailable [phone] Encounter Details Date Type Department Care Team (Late Contact Info) Description 07/21/2023 Abstract [facility] [address] [place] [address] Codi Hanson, CANDLES POURER [address] [place] [address] Social History Tobacco Use Types Packs/Day Years Used Date Smoking Tobacco: Former Cigarettes Q uit: 2016 Tobacco Cessation:Counseling Given: Not Answered Alcohol Use Standard Drinks/Week Comments Yes 0 (1 standard drink = 0.6 oz pure alcohol) 1-2 drinks monthly or less, caffeine: coffee,soda 2-3 cups per day Sex and Gender Information Value Date Recorded Sex Assigned at Not on file Legal Sex Male 7:25 PM EDT Gender Identity Not on file Sexual Orientation Not on file documented as of this encounter Functional Status * Over the past 2 weeks, how often have you been bothered by any of the following problems? Question Answer Date of Assessment Author Little interest or pleasure in doing things Several days 07/22/2023 1:34 PM ABBEY LANGFORD Feeling down, depressed, or hopeless Not at all 07/22/2023 1:34 PM ABBEY LANGFORD Patient Health Questionnaire -2 Score 1 07/22/2023 1:34 PM EST HAMMERABBEY * If you checked off any problems on this questionnaire so far, Question Answer Date of Assessment Author How difficult have these problems made it for you to do your work, take care of things at home, or get along with other people? Not difficult at all 07/22/2023 1:34 PM EST ABBEY HAMMER documented as of this encounter Plan of Treatment Upcoming Encounters Date Type Department Care Team (Late st Contact Info) Description 05/12/2025 10:45 AM EDT Office Visit [facility] [address] [place] [address] Cruzito Eid MD [address] [place] [address] 07/07/2025 1:45 PM EST Office Visit [facility] [address] [place] [address] Luna Wong MD [address] [place] [address] documented as of this encounter Visit Diagnoses Not on filedocumented in this encounter Care Teams Digital Developer Relationship Specialty Start Date End Date Cruzito Eid MD [address] [place] [address] PCP - General Family Medicine 04/20/23 Cruzito Eid MD [address] [place] [address] PCP - ACO Reach 08/27/24 Moon Pierce MA [address] [place] [address] Family Medicine 10/13/24 10/20/24 documented as of this encounter
--- OUTSIDE RECORDS SUMMARY | 2025-01-26 13:30 | XMS_ITS | Encounter Summary ---
Author Organization [facility] Address [address] [place] [address] Care Team Providers Care Story Editor Name Role Phone Cruzito Eid MD Primary Care Provider [phone] Cruzito Eid MD Unavailable Encounter Details Date Type Department Care Team (Late Contact Info) Description 11/10/2024 [facility] [address] [place] [address] Cruzito Eid MD [address] [place] [address] Social History Tobacco Use Types Packs/Day Years [...] week 04/25/2024 How often do you attend [facility] or holiness services? More than 4 times per year 04/25/2024 Do you belong to any clubs o r organizations such as anglican groups, unions, fraternal or athletic groups, or [...] Recorded Patient Health Questionnaire-2 Score 0 11/10/2024 [facility] - Occupational [...] any time in the past 12 m [facility], were you homeless or living in a alf (including now)? No 04/25/2024 Sex and Gender [...] Little interest or pleasure in doing things Not at all 11/10/2024 10:00 AM ABBEY CRUZ Feeling down, depressed, or hopeless Not at all 10/20 10:00 AM ABBEY CRUZ Patient Health Questionnaire-2 Score 0 10/20 10:00 AM ABBEY CRUZ * Question Answer Date of Assessment Author Trouble falling or staying a sleep, or sleeping too much Not at all 11/10/2024 10:00 AM ABBEY CRUZ Feeling tired or having chitra le energy Several days 11/10/2024 10:00 AM ABBEY CRUZ Poor appetite or overeating Not at all 11/10/2024 10 :00 AM ABBEY CRUZ Feeling bad about yourself - or that you are a failure or have let yourself or your family down Not at all 11/10/2024 10:00 AM ABBEY CRUZ Trouble concentrating on thi ngs, such as reading the newspaper or watching television Not at all 11/10/2024 10:00 AM ABBEY CRUZ Moving or speaking so slowly that other people could have noticed? Or the opposite - being so fidgety or restless that you have been moving around a lot more than usual. Not at all 11/10/2024 10:00 AM ABBEY CRUZ Thoughts that you would be b lauren off or hurting yourself in some way Not at all 11/10/2024 10:00 AM EDT ABBEY HAMMER Patient Health Questionnaire -9 Score 1 11/10/2024 10:00 AM EDT ABBEY HAMMER documented as of this encounter Plan of Treatment Upcoming Encounters Date Type Department Care Team (Late st Contact Info) Description 05/12/2025 10:45 AM EDT Office Visit [facility] [address] [place] [address] Cruzito Eid MD [address] [place] [address] 07/07/2025 1:45 PM EST Office Visit [facility] [address] [place] [address] Luna Wong MD [address] [place] [address] documented as of this encounter Visit Diagnoses Not on filedocumented in this encounter Additional Health Concerns Assessment Noted Time PHQ-9 Depression Total Score: 1 11/11/19 10:00 AM EDT documented as of this encounter Care Teams Story Editor Relationship Specialty Start Date End Date Cruzito Eid MD [address] [place] [address] PCP - General Family Medicine 04/20/23 Cruzito Eid MD [address] [place] [address] PCP - ACO Reach 08/27/24 documented as of this encounter
--- OUTSIDE RECORDS SUMMARY | 2025-01-26 13:30 | XMS_ITS | Clinical Summary ---
Author Organization [facility] Healthcare Address [address] [place] [address] Care Team Providers Care Slot Machine Key Person Name Role Phone Cruzito Eid MD Primary Care Provider [phone] Cruzito Eid MD Unavailable Allergies Active Allergy Reactions Criticality Noted Date Comments Ticagrelor Other 06/12/2024 Medications cholecalciferol (Vitamin D-3) 25 MCG (1000 UT) tablet Take 2,000 Units by mouth in the morning. Active coenzyme Q-10 100 MG capsule Take 100 mg by mouth in the morning. Active Continuous Blood Gluc Lime Slaker (FreeStyle Silvino 2 [place]) deviceIndications :Type 2 diabetes mellitus with hyperglycemia, with long-term current use of insulin ([facility]) 1 each Daily 1 each 024 Active insulin syringe-needle U-100 (BD Insulin Syringe U/F) 31G X 5/16 1 mL miscIndications:T ype 2 diabetes mellitus with hyperglycemia, with long-term current use of insulin ([facility]) Use as instructed 100 each 3 024 Active Continuous Glucose Sensor (FreeStyle Silvino 3 Sensor) miscIndications:T ype 2 diabetes mellitus with hyperglycemia, with long-term current use of insulin ([facility]) 1 each every 14 (fourteen) days 2 each 024 Active aspirin 81 MG EC tablet Take 81 mg by mouth Daily EC Active rosuvastatin (Crestor) 40 MG tabletIndications :Mixed hyperlipidemia Take 1 tablet (40 mg) by mouth Daily 30 tablet 5 024 Active clopidogrel (Plavix) 75 MG tablet Take 75 mg by mouth Daily 024 Active losartan (Cozaar) 50 MG tablet Take 50 mg by mouth in the morning. Active multivitamin-iron -minerals-folic acid (Theragran-M) tablet Take 1 tablet by mouth Daily Active Potassium Gluconate 595 MG capsule Take 595 mg by mouth Daily Active carvedilol (Coreg) 3.125 MG tablet Take 3.125 mg by mouth in the morning and 3.125 mg in the evening. Take with meals. 024 Active MAGNESIUM PO Take 1 tablet by mouth in the morning. Active pantoprazole (ProtoNix) 40 MG EC tablet TAKE 1 TABLET BY MOUTH TWICE DAILY DO NOT CRUSH CHEW OR SPLIT Active bumetanide (Bumex) 1 MG tabletIndications :Chronic heart failure with preserved ejection fraction (HFpEF) (HCC) Take 1 tablet (1 mg) by mouth in the morning and 1 tablet (1 mg) before bedtime. 60 tablet 3 024 Active Resveratrol 250 MG capsule Take 2 capsules by mouth Daily Active glipiZIDE (Glucotrol) 10 MG tabletIndications :Type 2 diabetes mellitus with hyperglycemia, with long-term current use of insulin ([facility]) Take 1 tablet (10 mg) by mouth Daily 30 tablet 5 025 Active metFORMIN XR (Glucophage-XR) 500 MG 24 hr tabletIndications :Type 2 diabetes mellitus with hyperglycemia, with long-term current use of insulin ([facility]) Take 1 tablet (500 mg) by mouth in the evening. Take with meals 90 tablet 3 025 Active insulin glargine (Lantus) 100 UNIT/ML injectionIndicati ons:Type 2 diabetes mellitus with hyperglycemia, with long-term current use of insulin ([facility]) Inject 52 Units under the skin in the morning. 50 mL 3 025 Active amLODIPine (Norvasc) 10 MG tabletIndications :Benign essential HTN Take 1 tablet by mouth once daily 30 tablet 025 Active gabapentin (Neurontin) 300 MG capsuleIndication s:Essential tremor Take 1 capsule (300 mg) by mouth in the morning and 1 capsule (300 mg) in the evening and 1 capsule (300 mg) before bedtime. 270 capsule 025 Active primidone (Mysoline) 50 MG tabletIndications :Benign essential tremor Take 1 tablet (50 mg) by mouth at bedtime 30 tablet 025 Active gabapentin (Neurontin) 300 MG capsuleIndication s:Essential tremor Take 1 capsule (300 mg) by mouth in the morning and 1 capsule (300 mg) in the evening and 1 capsule (300 mg) before bedtime. 270 capsule 1 024 2024 Discontinued(R eorder) primidone (Mysoline) 50 MG tabletIndications :Benign essential tremor TAKE 1 TABLET BY MOUTH AT BEDTIME 30 tablet 025 2024 Discontinued primidone (Mysoline) 50 MG tabletIndications :Benign essential tremor TAKE 1 TABLET BY MOUTH AT BEDTIME 30 tablet 025 2024 Discontinued(R eorder) Active Problems Problem Noted Date Diagnosed Date Medicare annual wellness visit, subsequent 11/10 Assessment & Plan (11/10/2024 11:23 AM EDT): Due for labs. Discussed proper diet and regular aerobic exercise. Need aerobic exercise 5-6 days a week for 30 minutes at a time. Smaller portions and limit total calories. Tetanus every 10 years. Advised not to smoke. Paroxysmal atrial fibrillation 06/24/2024 Assessment & Plan (11/10/2024 11:22 AM EDT): In NSR and continue medication. Assessment & Plan (06/24/2024 10:56 AM EST): In NSR and continue medication. Recent GI bleed and Eliquis on hold. Gastrointestinal hemorrhage associated with acut e gastritis 06/24/2024 Assessment & Plan (06/24/2024 10:55 AM EST): Bleed related to Eliquis and stopped. Continue protonix. Duodenitis 06/24/2024 Assessment & Plan (06/24/2024 10:55 AM EST): Continue protonix. Unsteady gait 06/24/2024 Chronic heart failure with p reserved ejection fraction (HFpEF) 05/12/2024 Assessment & Plan (11/10/2024 11:22 AM EDT): Edema stable and continue medication. Elevate legs PRN. Assessment & Plan (06/24/2024 10:55 AM EST): Worsening edema and increase bumex. Elevate legs PRN. Assessment & Plan (05/12/2024 10:36 AM EDT): Edema stable and continue medication. Follow with cardiology. DDD (degenerative disc disease), lumbar 02/26/20 Assessment & Plan (06/28/2024 12:37 PM EST): Pain stable and continue medication. Start home health for therapy. Assessment & Plan (02/26/2024 4:26 PM EDT): Increased pain and radicular symptoms. Check x-ray and may need MRI. Lumbar radiculopathy 02/26/2024 Change in voice 02/26/2024 Assessment & Plan (02/26/2024 4:26 PM EDT): Voice changing and prior smoker. Refer to ENT for evaluation and direct visualization. Weakness of both legs 12/18/2023 Assessment & Plan (12/18/2023 1:55 PM EDT): Episode of weakness after leaning and in 1 position for 2 hours but resolved and no problems since. Likely lumbar DDD and irritated nerve. Doing well since and no further symptoms. Able to return to work without restrictions. Vitamin D deficiency 10/24/2023 Encounter for long-term (current) use of medicat ions 10/24/2023 Tremor 10/24/2023 Assessment & Plan (05/12/2024 10:34 AM EDT): Resume primidone. Assessment & Plan (10/24/2023 9:41 AM EDT): Tremor stable and continue neurontin. Once off brillinta can resume primidone. Arteriosclerosis of coronary artery 07/01/2023 Assessment & Plan (05/12/2024 10:34 AM EDT): No pain and follow with cardiology. Assessment & Plan (10/24/2023 9:40 AM EDT): No pain and follow with cardiology. Benign essential HTN 07/01/2023 Assessment & Plan (05/12/2024 10:34 AM EDT): BP controlled and monitor PRN. Assessment & Plan (10/24/2023 9:40 AM EDT): BP controlled and monitor PRN. Assessment & Plan (07/22/2023 2:28 PM EST): BP controlled and monitor PRN. Hyperlipidemia 07/01/2023 Normal pressure hydrocephalus 07/01/2023 Obstructive sleep apnea 07/01/2023 Overweight (BMI 25.0-29.9) 07/01/2023 CKD stage 3b, GFR 30-44 ml/min 01/04/2023 Assessment & Plan (11/10/2024 11:22 AM EDT): Referred to nephrology. Type 2 diabetes mellitus wit h hyperglycemia, with long-term current use of insulin 01/04/2023 Assessment & Plan (05/12/2024 10:34 AM EDT): Not checking BS and due for A1C. Stick to ADA diet and limit carbs. Assessment & Plan (01/09/2024 12:19 PM EDT): BS elevated with steroids but improved. Monitor. Assessment & Plan (10/24/2023 9:41 AM EDT): Not checking BS and due for A1C. Start using freestyle silvino. Continue insulin. Stick to ADA diet and limit carbs. Assessment & Plan (07/22/2023 2:28 PM EST): Reports BS controlled and due for A1C. Stick to ADA diet and limit carbs. Asymptomatic bradycardia 11/12/2022 Assessment & Plan (06/24/2024 10:55 AM EST): Recent pacemaker placed and follow with cardiology. CLL (chronic lymphocytic leukemia) 06/27/2022 Assessment & Plan (11/10/2024 11:22 AM EDT): Follow with oncology Assessment & Plan (01/09/2024 12:21 PM EDT): Follow with oncology Bilateral carotid artery stenosis 10/21/2019 Assessment & Plan (10/24/2023 9:41 AM EDT): No symptoms and monitor. PAD (peripheral artery disease) 10/21/2019 Assessment & Plan (11/10/2024 11:22 AM EDT): Follow with vascular. Assessment & Plan (05/12/2024 10:37 AM EDT): Follow with vascular. Assessment & Plan (02/26/2024 4:26 PM EDT): Refer to new vascular. Resolved Problems Problem Noted Date Diagnosed Date Resolved Date Hoarseness 02/26/2024 05/12/2024 Pneumonia 01/09/2024 02/26/2024 Assessment & Plan (01/09/2024 12:19 PM EDT): Recent pneumonia but improved. Monitor and use albuterol PRN. Edema of both legs 07/22/2023 Assessment & Plan (07/22/2023 2:28 PM EST): Edema stable with lasix and use PRN. Elevate legs PRN. Essential tremor 07/22/2023 10/24/2023 Assessment & Plan (07/22/2023 2:28 PM EST): Tremor worse and increase neurontin. URI, acute 07/01/2023 10/24/2023 Assessment & Plan (07/22/2023 2:29 PM EST): Continued symptoms and treat with levaquin. Use OTC PRN. Assessment & Plan (07/01/2023 4:39 PM EST): Will add atb Sympotms for 2 weeks, NAD Fluids, rest, fu if not better Abnormal result of cardiovas cular function study, unspecified 07/01/2023 07/22/2023 Hypertension 07/01/2023 10/24/2023 Assessment & Plan (07/01/2023 4:45 PM EST): Is elevated, pt reports cardiology still working on this Asymptomatic Continue follow with them NSTEMI (non-ST elevated myoc ardial infarction) 04/05/2023 07/22/2023 Encounters Date Type Department Care Team Description 01/25/2025 Refill [facility] [address] [place] [address] Cruzito Eid MD Benign essential tremor 01/25/2025 Refill [facility] [address] [place] [address] Cruzito Eid MD Benign essential tremor 01/06/2025 1:50 PM EDT Office Visit [facility] [address] [place] [phone] Luna Wong MD Seborrheic keratosis (Primary Dx); Actinic keratosis; Capillary angioma; Lentigines; Solar purpura 01/06/2025 Bamboo flowsheet [facility] [address] [place] [address] Luna Wong MD 01/06/2025 Travel 01/05/2025 Refill [facility] [address] [place] [address] Cruzito Eid MD Essential tremor 12/27/2024 Orders Only [facility] [address] [place] [address] Cruzito Eid MD 12/27/2024 Refill [facility] [address] [place] [address] Cruzito Eid MD Benign essential tremor 12/15/2024 Abstract [facility] [address] [place] [address] Cruzito Eid MD 12/15/2024 Telephone [facility] [address] [place] [address] Cruzito Eid MD 12/10/2024 Refill [facility] [address] [place] [address] Cruzito Eid MD Benign essential HTN 11/16/2024 10:40 AM EDT Office Visit [facility] [address] [place] [phone] Simi Sinha NP Gait instability (Primary Dx); Polyneuropathy; Degeneration of intervertebral disc of lumbar region with discogenic back pain; Tremor; Paroxysmal atrial fibrillation ([facility]); AICD (automatic cardioverter/defibrill ator) present 11/16/2024 Bamboo flowsheet [facility] [address] [phone] Simi Sinha NP 11/10/2024 10:30 AM EDT Office Visit [facility] [address] [place] [address] Cruzito Eid MD Medicare annual wellness visit, subsequent (Primary Dx); Type 2 diabetes mellitus with hyperglycemia, with long-term current use of insulin (HCC); Chronic heart failure with preserved ejection fraction (HFpEF) ([facility]); CLL (chronic lymphocytic leukemia) (HCC); CKD stage 3b, GFR 30-44 ml/min ([facility]); PAD (peripheral artery disease); Paroxysmal atrial fibrillation (HCC); Type 2 diabetes mellitus 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 (HCC); 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HCC); Immunodeficiency due to conditions classified elsewhere ([facility]) 11/10/2024 Results Follow-Up [facility] [address] [place] [address] Cruzito Eid MD 11/10/2024 Clinisync Result Encounter [facility] External Department Unsolicited Cruzito Eid MD 11/10/2024 Refill [facility] [address] [place] [address] Cruzito Eid MD Benign essential HTN 10/27/2024 Telephone [facility] [address] [place] [address] Cruzito Eid MD from Last 3 Months Family History Medical History Relation Name Comments Cancer Father Milad rojas Diabetes Father Milad rojas Diabetes Mother Dana Rojas Melanoma Neg Hx Relation Name Status Comments Father Milad rojas Mother Dana Rojas Social History Tobacco Use Types Packs/Day Years Used Date Smoking Tobacco: Former Cigarettes 2 016 - 1964 Smokeless Tobacco: Never Tobacco Cessation:Counseling Given: Not [...] often do you attend chur ch or pentecostal services? More than 4 times per year 04/25/2024 Do you belong to any clubs o r organizations such as amish groups, unions, fraternal or athletic groups, or [...] Recorded Patient Health Questionnaire-2 Score 0 11/10/2024 [facility] of Occupat ional Health - Occupational Stress [...] Sign Reading Time Taken Comments Blood Pressure 126/72 11/16/2024 10:16 AM EDT Pulse 65 11/16/2024 10:16 AM EDT Temperature 36.3 C (97.3 F) 11/10/2024 10:44 AM EDT Respiratory Rate 18 11/10/2024 10:44 AM EDT Oxygen Saturation 91% 11/16/2024 10:16 AM EDT Inhaled Oxygen Concentration - - Weight 78 kg (172 lb) 11/16/2024 10:16 AM EDT Height 172.7 cm (5' 8 ) 11/16/2024 10:16 AM EDT Body Mass Index 26.15 11/16/2024 10:16 AM EDT Plan of Treatment Upcoming Encounters Date Type Department Care Team (Late st Contact Info) Description 05/12/2025 10:45 AM EDT Office Visit [facility] [address] [place] [address] Cruzito Eid MD [address] [place] [address] 07/07/2025 1:45 PM EST Office Visit [facility] [address] [place] [phone] Luna Wong MD [address] [place] [address] Health Maintenance Due Date Last Done Comments Pneumococcal Vaccine: 65+ Ye ars (3 of 3 - PPSV23, PCV20 or PCV21) 08/19/2018 06/24/2018, 02/02/2011 Diabetes: Hemoglobin A1C 07/08/2024 024, 07/23/2023, 10/12/2020, Additional history exists Diabetes: Urine Protein Screening 01/06/2025 024, 03/30/2020 Influenza Vaccine (#1) 2025 , 08/02/2023, 04/02/2022, Additional history exists Diabetes: Retinopathy Screening 10/19/2025 10/20/2023, 09/13/2020, 08/12/2019, Additional history exists Colonoscopy Discontinued 12/26/2022, 02/2023, 11/12/2022, Additional history exists Colorectal Cancer Screening Discontinued CT Colonography Discontinued FIT-DNA Discontinued FIT Discontinued FOBT Discontinued Sigmoidoscopy Discontinued Medical Devices Implanted Type Area Part Time Flexible Clerk Device Identifier Shelf Expiration Date Model / Serial / Lot Stentx4-Right Coronary Artery Stent Right: Coronary Procedures Procedure Name Priority Date/Time Associated Diagnosis Comments CRYOTHERAPY SKIN LESION Routine 01/06/2025 1:49 PM EDT Actinic keratosis SCANNED LABS Routine 12/27/2024 2:55 PM EDT MLR HEMOGLOBIN A1C Routine 11/10/2024 12 :03 PM EDT HEMOGLOBIN A1C Routine 07/23/2023 2:06 PM EST COLOR FUNDUS PHOTOGRAPHY - OU - BOTH EYES Routine 09/13/2020 12:00 PM EST MICROALBUMIN (W/O CREAT) Routine 03/30/2020 COLONOSCOPY Routine 09/21/2012 12:00 PM EST from Last 3 Months or Most Recently Relevant to Health Maintenance Results * Cryotherapy, skin lesion (01/06/2025 1:49 PM EDT) us Luna Wong MD DERM PROCEDURE ORDERABLES Fin al Result * [facility]ANNED [facility]S (12/27/2024 2:55 PM EDT) us Cruzito Eid MD LAB CHG PERFORMABLES Final Resul t * (ABNORMAL) MLR HEMOGLOBIN A1C (11/10/2024 12:03 PM EDT) GLYCOHEMOGLOBIN A1C 8.1(H) 4.5 - 6.2 % [facility] Comment: ADA RECOMMENDED LIMIT 4.0 - 6.0 ADA THERAPEUTIC TARGET < 7.0 ACTION SUGGESTED > 7.0 ESTIMATED AVERAGE GLUCOSE 186 mg/dL [facility] 11/10/2024 12:0 3 PM EDT 11/10/2024 12:03 PM EDT Narrative [facility] - 11/10/2024 12:28 PM EDT Cruzito Eid MD CLINISYNC Final Result Performing Organization Address [facility] de Phone Number [facility] * (ABNORMAL) Hemoglobin A1c (07/23/2023 2:06 PM EST) HEMOGLOBIN A1C 6.9(H) 4.4 - 5.6 % [facility] Comment: NOTE ADA Guidelines Result HgbA1c Normal : less than 5.7 % Prediabetes : 5.7 % to 6.4 % Diabetes : > 6.4 % Use with caution in patients with abnormal hemoglobin variants as the half-life of red blood cells and in vivo glycation rates are affected. AVERAGE GLUCOSE 151 mg/dL [facility] 07/23/2023 2:06 PM EST 07/23/2023 2:07 PM EST Cruzito Eid MD LAB BLOOD ORDERABLES Edited Resu lt - Final Performing Organization Address [facility] de Phone Number [facility] * Color Fundus Photography - OU - Both Eyes (09/13/2020 12:00 PM EST) Anatomical Region Laterality Modality Head Fundus Photograp hy 09/13/2020 12:0 0 PM EST Narrative 09/13/2020 12:00 PM EST PERFORMED AT [facility] LOCATION:[id number] Procedure Note CONVERSION, GENERIC - 12/04/2022 PERFORMED AT [facility] LOCATION:[id number] us Gabbie Joyce MD OPHTH PHOTOGRAPHY Final Resul t * MICROALBUMIN (W/O CREAT) (03/30/2020) MALB 38.3 [facility] Comment:mALB reference range not established. 03/30/2020 us Arleth Flores SOCIAL WELFARE CLERK [facility] Final R esult [facility] * Colonoscopy (09/21/2012 12:00 PM EST) Anatomical Region Laterality Modality Endoscopy 09/21/2012 12:0 0 PM EST Narrative 09/21/2012 12:00 PM EST PERFORMED AT [facility] LOCATION:[id number] Polyps, inflammation Procedure Note CONVERSION, GENERIC - 12/05/2022 PERFORMED AT [facility] LOCATION:[id number] Polyps, inflammation us Ray Olivo ENDOSCOPY PROCEDURE ORDERABLES F inal Result from Last 3 Months or Most Recently Relevant to Health Maintenance Insurance MEDICARE [facility] Care Teams Slot Machine Key Person Relationship Specialty Start Date End Date Cruzito Eid MD [address] [place] [address] PCP - General Family Medicine 04/20/23 Cruzito Eid MD [address] [place] [address] PCP - ACO Reach 08/27/24
--- OUTSIDE RECORDS SUMMARY | 2025-01-26 13:30 | XMS_ITS | Encounter Summary ---
Author Organization [facility] Address [address] [facility] [place] [address] Care Team Providers Care Upholsterer Helper Name Role Phone Cruzito Eid MD Primary Care Provider [phone] Cruzito Eid MD Unavailable Moon Pierce MA Unavailable [phone] Encounter Details Date Type Department Care Team ([facility] Contact Info) Description 11/18/2023 Orders Only [facility] [address] [place] [address] Cruzito Eid MD [address] [place] [address] Social History Tobacco Use Types [...] Upcoming Encounters Date Type Department Care Team ([facility] Contact Info) Description 05/12/2025 10:45 AM EDT Office Visit [facility] [address] [place] [address] Cruzito Eid MD [address] [place] [address] 07/07/2025 1:45 PM EST Office Visit [facility] [address] [place] [address] Luna Wong MD [address] [place] [address] documented as of this encounter Visit Diagnoses Not on filedocumented in this encounter Care Teams Upholsterer Helper Relationship Specialty Start Date End Date Cruzito Eid MD [address] [place] [address] PCP - General Family Medicine 04/20/23 Cruzito Eid MD [address] [place] [address] PCP - ACO Reach 08/27/24 Moon Pierce MA [address] [place] [address] Family Medicine 10/13/24 10/20/24 documented as of this encounter
--- OUTSIDE RECORDS SUMMARY | 2025-01-26 13:30 | XMS_ITS | Encounter Summary ---
Author Organization [facility] Address [address] [facility] [place] [address] Care Team Providers Care Lead Java Programmer Name Role Phone Cruzito Eid MD Primary Care Provider [phone] Cruzito Eid MD Unavailable Moon Pierce MA Unavailable [phone] Encounter Details Date Type Department Care Team ([facility] Contact Info) Description 01/07/2024 Orders Only [facility] [address] [place] [address] Cruzito Eid MD [address] [place] [address] Social History Tobacco Use Types [...] Upcoming Encounters Date Type Department Care Team ([facility] Contact Info) Description 05/12/2025 10:45 AM EDT Office Visit [facility] [address] [place] [address] Cruzito Eid MD [address] [place] [address] 07/07/2025 1:45 PM EST Office Visit [facility] [address] [place] [address] Luna Wong MD [address] [place] [address] documented as of this encounter Visit Diagnoses Not on filedocumented in this encounter Care Teams Lead Java Programmer Relationship Specialty Start Date End Date Cruzito Eid MD [address] [place] [address] PCP - General Family Medicine 04/20/23 Cruzito Eid MD [address] [place] [address] PCP - ACO Reach 08/27/24 Moon Pierce MA [address] [place] [address] Family Medicine 10/13/24 10/20/24 documented as of this encounter
--- OUTSIDE RECORDS SUMMARY | 2025-01-26 13:30 | XMS_ITS | Encounter Summary ---
Author Organization [facility] Address [address] [place] [address] Care Team Providers Care Wireworker Supervisor Name Role Phone Cruzito Eid MD Primary Care Provider [phone] Cruzito iEd MD Unavailable Reason for Visit * Reason Onset Date Comments Med Refill 01/25/2025 Encounter Details Date Type Department Care Team ([facility] st Contact Info) Description 01/25/2025 Refill [facility] [address] [place] [address] Cruzito Eid MD [address] [place] [address] Benign essential tremor Social History Tobacco Use [...] week 04/25/2024 How often do you attend [facility] or tenriism services? More than 4 times per year 04/25/2024 Do you belong to any clubs o r organizations such as mosque groups, unions, fraternal or athletic groups, or [...] Recorded Patient Health Questionnaire-2 Score 0 11/10/2024 [facility] of Occupat ional Health - Occupational Stress [...] any time in the past 12 m [facility], were you homeless or living in a assisted (including now)? No 04/25/2024 Sex and Gender Information Value Date Recorded Sex Assigned at Not on file Legal Sex Male 7:25 PM EDT Gender Identity Not on file Sexual Orientation Not on file documented as of this encounter Miscellaneous Notes * Telephone Encounter - ABBEY HAMMER - 01/25/2025 9:38 AM EDT MEDICATION SENT TO [facility] documented in this encounter Plan of Treatment Upcoming Encounters Date Type Department Care Team (Late st Contact Info) Description 05/12/2025 10:45 AM EDT Office Visit [facility] [address] [place] [address] Cruzito Eid MD [address] [place] [address] 07/07/2025 1:45 PM EST Office Visit [facility] [address] [place] [address] Luna Wong MD [address] [place] [address] documented as of this encounter Visit Diagnoses Diagnosis Benign essential tremor Essential and other specified forms of tremor documented in this encounter Additional Health Concerns Assessment Noted Time PHQ-9 Depression Total Score: 1 11/11/19 25 10:00 AM EDT documented as of this encounter Care Teams Wireworker Supervisor Relationship Specialty Start Date End Date Cruzito Eid MD [address] [place] [address] PCP - General Family Medicine 04/20/23 Cruzito Eid MD [address] [place] [address] PCP - ACO Reach 08/27/24 documented as of this encounter
--- NOTE | 2025-01-26 14:00 | CA_ITS ---
Patient Name: ILA MOREJON MR#: [id number] : 1945 Exam Date: 01/26/2025 Ordering Doctor: DR SABINA SHELDON M.D. ECHOCARDIOGRAM REPORT PROCEDURE: CA ECHO DOPPLER COMPLETE INDICATIONS: Heart failure with reduced ejection fraction, pacemaker, cardiac stents, hypertension, diabetes COMPARISON: None. DESCRIPTION: COMPLETE ECHOCARDIOGRAM Real-time transthoracic echocardiography with 2D, M-mode, spectral and color flow Doppler performed. QUALITY: Technical quality was good. LEFT VENTRICLE: Normal chamber size. Mild concentric left ventricular hypertrophy. Low normal left ventricular systolic function with abnormal septal motion probably due to paced rhythm, ejection fraction estimated to be 50% LV EF: 50% DIASTOLIC: diastolic dysfunction. ATRIAL SEPTUM: Visually appears intact. LEFT ATRIUM: Mild dilatation. RIGHT ATRIUM: Mild dilatation. RIGHT VENTRICLE: Normal chamber size. Normal systolic function. Pacer wire present. TRICUSPID VALVE: Normal mobility and thickness. No stenosis with mild regurgitation. Doppler studies reveal mildly (35-45) elevated right sided pressures.RVSP 37 mmHg MITRAL VALVE: Mildly thickened with normal mobility No mitral valve stenosis. Mild mitral annular calcification. No mitral regurgitation. AORTIC VALVE: Probably bicuspid aortic valve. Mildly calcified aortic valve. Mildly diminished mobility. No aortic stenosis .no aortic regurgitation. AORTIC ROOT: Normal diameter and appearance. PULMONIC VALVE: Normal thickness and mobility. No stenosis. No regurgitation. PERICARDIUM: No evidence of pericardial effusion. IVC: Not well visualized. PLEURA: CONCLUSION: Mild concentric left ventricular hypertrophy Low normal left ventricle systolic function with abnormal septal motion probably due to paced rhythm, ejection fraction 50% Evidence of left ventricular diastolic dysfunction Mildly biatrial dilatation Normal right ventricle size and systolic function Pacemaker leads within the right cardiac chambers Mild pulmonary hypertension, RVSP 37 mmHg Mild mitral annulus calcification Probably bicuspid aortic valve which appears to be sclerotic without evidence of significant stenosis or insufficiency Adult Echocardiography Procedure Report Left Ventricle LVEDD (3.7 - 5.6 cm): 3.43 cm LVESD (2.2 - 4.0 cm): 3.02 cm LVIVS thickness (0.6 - 1.2 cm): 1.26 cm LVPW thickness (0.5 - 1.0 cm): 1.23 cm e': 0.05 m/s E - e': 11.45 LVOT Max Gradient: 1.63 mm[Hg] LVOT Area (cm2): 0.64 m/s Peak Velocity (LVOT): 0.64 m/s Mean Velocity (LVOT): 0.39 m/s LVOT Diameter 2.23 cm Left Ventricular Ejection Fraction: 47.14 % Left Atrium LA Volume Index (2D A2C): 37.84 ml/m2 Left Atrium Systolic Dimension: 4.09 cm Mitral Valve MV E to A Ratio: 0.43 MV Max Gradient: MV Mean Gradient: Mitral Valve A-Wave Peak Velocity: 1.22 m/s Mitral Valve E-Wave Peak Velocity: 0.53 m/s Cardiovascular Orifice Area: Right Ventricle RV Internal Diastolic Dimension: Aorta AO Root Diam: 3.12 cm Ascending Ao Diam: Aortic Valve AoV Area (Peak Bernardo): 1.34 cm2, 1.57 cm2 AoV Area (VTI): 1.41 cm2, 2.06 cm2 Deceleration Carter: Pressure Half-Time: Peak Velocity(Antegrade Flow): 1.60 m/s, 1.86 m/s Peak Gradient(Antegrade Flow): 10.18 mm[Hg], 13.83 mm[Hg] Mean Velocity(Antegrade Flow): 1.04 m/s, 1.33 m/s Mean Gradient(Antegrade Flow): 5.07 mm[Hg], 7.98 mm[Hg] Velocity Time Integral: 31.90 cm, 46.56 cm Tricuspid Valve Peak Velocity (Regurgitant Flow): 2.92 m/s Peak Velocity: Pulmonic Valve Mean Gradient: Mean Velocity: Peak Velocity: 0.76 m/s Peak Gradient: 2.31 mm[Hg] Right Atrium Right Atrium Systolic Pressure: 58.33 ml, 58.33 ml Dictated by: Chetan Tolentino MD on 01/28/2025 at 17:58 Approved by: Chetan Tolentino MD on 01/28/2025 at 18:10
== END 2025-01-26 13:26 | disposition home or self-care (01) ==
LOC: CARD 13:26
PROVIDERS: PCP Family Medicine; Visit Provider Internal Medicine Interventional Cardiology
DX: I48.0 Paroxysmal atrial fibrillation (principal); I50.20 Unspecified systolic (congestive) heart failure; I51.89 Other ill-defined heart diseases
CPT/HCPCS: 93306

== ENCOUNTER 2025-03-30 14:15 | Outpatient (OUT) | payer MEDICARE, SELFPAY ==
[2025-03-30 15:21] LABS: TSH W/ REFLEX FT4 3.010 uIU/mL (0.358-3.740)
[2025-03-31 08:09] LABS: RPR Non Reactive (Non Reactive)
[2025-03-31 10:08] LABS: Vitamin B12 1390 pg/mL (232-1245)
[2025-03-31 14:09] LABS: Albumin 3.8 g/dL (2.9-4.4); Alpha-1-Globulin 0.3 g/dL (0.0-0.4); Alpha-2-Globulin 1.0 g/dL (0.4-1.0); Gamma Globulin 0.8 g/dL (0.4-1.8)
[2025-03-31 17:08] LABS: Antinuclear Antibodies, IFA Negative (.)
[2025-04-01 14:08] LABS: Immunoglobulin A, Qn, Serum 131 mg/dL (61-437)
[2025-04-04 16:13] LABS: Vitamin B6, Plasma 31.7 ug/L (3.4-65.2)
== END 2025-03-30 14:16 | disposition home or self-care (01) ==
LOC: LAB 14:16
PROVIDERS: PCP Family Medicine; Visit Provider Nurse Practitioner Family
DX: G62.9 Polyneuropathy, unspecified (principal); Z79.899 Other long term (current) drug therapy
CPT/HCPCS: 36415; 82607; 83036; 84155; 84165; 84207; 84443; 86038; 86592; 86618; 87389

== ENCOUNTER 2025-04-08 11:25 | Outpatient (OUT) | payer MEDICARE, SELFPAY ==
--- OUTSIDE RECORDS SUMMARY | 2025-04-08 11:34 | XMS_ITS | CCD ---
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 Name Role Phone Cruzito Mcgrath Primary Care Provider Luiz Glass Attending Provider STANTON, DR CRUZITO Yan Admitting Unavailable NADERER, DR CRUZITO Yan Attending Unavailable NADERER, DR CRUZITO Yan Primary Care Unavailable NADERER, DR CRUZITO Yan Consulting Unavailable NADERER, DR CRUZITO Yan Admitting Unavailable NADERER, DR CRUZITO Yan Attending Unavailable NADERER, DR CRUZITO Yan Primary Care Unavailable NADERECoral, DR CRUZITO Yan Consulting Unavailable Unavailable Primary Care Provider UnavailCruzito Streeter Primary Care Provider [phone] DO Arminda Valverde Attending Provider Cruzito Mcgrath Primary Care Provider [phone] MD Cruzito Mcgrath Primary Care Provider MD Luiz Glass Attending Provider MATILDE HANEY Admitting Unavailable MATILDE HANEY Attending Unavailable NADIYA MASCORRO Referring Unavailable CRUZITO MCGRATH Primary Care Unavailable RICKIE COTTON Consulting Unavailable LATASHA HEAD Consulting Unavailable ADAMARIS BARBER Referring Unavailable CRUZITO MCGRATH Primary Care Unavailable JANUARY SANDERS Attending Unavail able RICKIE HIRSCH Referring Unavailable CRUZITO MCGRATH Primary Care Unavailable Cruzito Mcgrath MD Primary Care Provider Cruzito Mcgrath MD Primary Care Provider Cruzito Mcgrath MD Primary Care Provider Luiz Glass MD Attending Provider [phone] Langenberg, Luiz T Admitting Unavailabl e Langenberg, Luiz T Attending Unavailabl e Naderer, Cruzito Primary Care Unavailable Langenberg, Luiz T Admitting Unavailabl e Langenberg, Luiz T Attending Unavailabl e Naderer, Cruzito Primary Care Unavailable Langenberg, Luiz T Admitting Unavailabl e Langenberg, Luiz T Attending Unavailabl e Naderer, Cruzito Primary Care Unavailable Rice, Arminda L Admitting Unavailable Rice, Arminda L Attending Unavailable Stanton REYES, Cruzito Primary Care Provider Stanton REYES, Cruzito Primary Care Provider JUDAH COSTELLO Attending Unavailable JUDAH COSTELLO Referring Unavailable NADERER, CRUZITO Primary Care Unavailable NADERER, CRUZITO Primary Care Unavailable MISTRY, DANIEL Attending Unavailable MISTRY, DANIEL Attending Unavailable MISTRY, DANIEL Referring Unavailable NADERER, CRUZITO Primary Care Unavailable NADERER, CRUZITO Primary Care Unavailable RICKIE COTTON Consulting Unavailable VALDES, LUIS Levine Admitting Unavailable SOCACIJulianna, LORENA Attending Unavailable JAYY HINES Consulting Unavailable ARSH, LOUIS A Referring Unavailable NADERER, CRUZITO Primary Care Unavailable Cruzito Mcgrath MD Unavailable Cruzito Mcgrath MD Primary Care Provider ABHYANKAR, DIPTI Referring Unavailable NADERER, CRUZITO A Primary Care Unavailable NADERER, CRUZITO A Primary Care Unavailable NADERER, CRUZITO A Primary Care Unavailable CHANDLER RAEGAN Referring Unavailable RAEGAN ARTEAGA Attending Unavailable NADERER, CRUZITO A Primary Care Unavailable NADERER, CRUZITO A Primary Care Unavailable RAEGAN ARTEAGA Attending Unavailable ABHYANKAR, DIPTI Referring Unavailable NADERER, CRUZITO A Primary Care Unavailable ABHYANKAR, DIPTI Referring Unavailable NADERER, CRUZITO A Primary Care Unavailable ABHYANKAR, DIPTI Attending Unavailable ABHYANKAR, DIPTI Referring Unavailable NADERER, CRUZITO A Primary Care Unavailable ABHYANKAR, DIPTI Referring Unavailable NADERER, CRUZITO A Primary Care Unavailable SHAGGY ARRIAZA Attending Unavailable ABHYANKAR, DIPTI Referring Unavailable NADERER, CRUZITO A Primary Care Unavailable PETITTIBRAD Attending Unavailable ZAHRAA CRISTOBAL Attending Unavailable NADERER, CRUZITO Referring Unavailable ZAHRAA CRISTOBAL Attending Unavailable NADERER, CRUZITO Attending Unavailable LAURA SINHA Attending Unavailable PETITTI, BRAD Yan Attending Unavailable STANTON, CRUZITO Attending Unavailable TIMMIYanci, JEROMY Tovar Attending Unavailable STANTON, CRUZITO Referring Unavailable STANTON, CRUZITO Attending Unavailable STANTON, CRUZITO Attending Unavailable MILAD, BRAD Yan Attending Unavailable Cruzito Mcgrath MD Primary Care Provider Vivi Sandoval MD Attending Provider [phone] Octavia INSPECTOR PLUG SEAM-STERILE TECHNICIAN-C, Laura Queen Attending Provider PITO, EHAB Referring Unavailable JOSEF, MICHELINE Referring Unavailable JOSEF, MICHELINE Referring Unavailable ELTAHAWY, EHAB Referring Unavailable LATIFI, EULALIA Attending Unavailable ROSENDALE, BRITTNEE Referring Unavailable SOPHIE, FARTUN Referring Unavailable ELTAHAWY, HAO Attending Unavailable SOPHIE, FARTUN Referring Unavailable GALE, HANDimas Referring Unavailable HORANI, HECTOR Admitting Unavailable DOMINGUEZ, CAROL ZAVALA Attending Unavailable ELTAHAWY, HAO Attending Unavailable SOPHIE, FARTUN Attending Unavailable ELTAHAWY, HAO Attending Unavailable SOPHIE, FARTUN Referring Unavailable YEARTY, SERGO Attending Unavailable SOPHIE, FARTUN Referring Unavailable SOPHIE, FARTUN Referring Unavailable YAQUELIN, ADRIANO Referring Unavailable Cruzito Mcgrath MD Attending Provider [phone] Allergies Allergy Classification Reported Allergen(s) Allergy Type Date of Onset Reaction(s) Facility (10 sources) Ticagrelor; Translations: [TICAGRELOR] Propensity to adverse reactions 4 Other [facility] Medications Current Medications Medication Drug Class(es) Dates Sig (Normalized) Sig (Original) amLODIPine 10 mg oral tablet (20 sources) Dihydropyridine Calcium Channel Shireen Start: 03-20-2025 take 1 tablet by mouth once daily amLODIPine (Norvasc) 10 MG tablet Indications: Benign essential HTN Take 1 tablet by mouth once daily 30 tablet 5 03/20/2025 Active Start: 05-09-2023 End: 03-20-2025 take 1 tablet by mouth once daily amLODIPine (Norvasc) 10 MG tablet Indications: Benign essential HTN Take 1 tablet by mouth once daily 30 tablet 12/10/2024 03/20/2025 Discontinued Start: 06-14-2022 take 2 tablets by mo ut once daily in the morning amLODIPine (NORVASC) 5 mg tablet Take 10 mg by mouth every morning. 06/14/2022 Active Start: 06-14-2022 take 1 tablet by sierra th once daily in the morning amLODIPine (NORVASC) 5 mg tablet Take 5 mg by mouth every morning. 0 06/14/2022 Active Comment on above: Take 5 mg by mouth e very morning. aspirin 81 mg delayed release oral tablet (20 sources) Platelet Aggregation Inhibitor, Nonsteroidal Anti-inflammatory Drug Start: 03-18-2024 Aspirin (Adult Low Dose Aspirin) 81 mg tablet,delayed release (DR/EC) Active 81 MG PO Daily March 18, 2024 12:00am Complies with drug therapy Start: 04-09-2023 End: 04-03-2024 aspirin 81 mg chewable table t Take 81 mg by mouth. 04/09/2023 Active bumetanide 1 mg oral tablet (20 sources) Loop Diuretic Start: 04-30-2024 End: 03-11-2025 take 1 tablet by mouth in the morning bumetanide (Bumex) 1 MG tablet Indications: Chronic heart failure with preserved ejection fraction (HFpEF) ([facility]) Take 1 tablet (1 mg) by mouth in the morning and 1 tablet (1 mg) before bedtime. 60 tablet 3 03/11/2025 Active Calcium Phos,Dibas-Vitamin D3 (3 sources) Start: 01-02-2021 take 1 tablet by mouth once daily Calcium Phos,Dibas-Vitamin D3 Active 1 TAB PO Daily January 02, 2021 12:00am carvedilol 3.125 mg oral tablet (20 sources) alpha-Adrenergic Shireen, beta-Adrenergic Shireen Start: 06-13-2024 take 1 tablet by mouth once daily Carvedilol 3.125 mg tablet Active 3.125 MG PO Daily August 12, 2024 1:00am Complies with drug therapy Start: 01-02-2021 End: 03-18-2024 take 1 tablet by mouth twice daily Carvedilol 6.25 mg Tablet Discontinued 6.25 MG PO Twice daily January 02, 2021 12:00am March 18, 2024 9:41am take 3.125 mg by sierra th twice daily at mealtime carvedilol (COREG) 6.25 mg tablet Take 3.125 mg by mouth two times a day with meals. Active End: 05-12-2024 carvedilol (Coreg) 6.25 MG t ablet every 12 (twelve) hours 05/12/2024 Discontinued Comment on above: Take 6.25 mg by mout h twice daily with meals. cholecalciferol 0.025 mg oral tablet (20 sources) Vitamin D Start: 04-07-20 take 1 tablet by mouth once daily Cholecalciferol (Vitamin D3) 25 mcg (1,000 unit) tablet Active 50 MCG PO Daily April 07, 2025 12:00am Complies with drug therapy take 1 tablet by mouth in the mo rning cholecalciferol (Vitamin D-3) 25 MCG (1000 UT) [...] 2,000 Units by mouth once daily. Active Comment on above: Take 2,000 Units by mouth once daily. clopidogrel 75 mg oral tablet (20 sources) P2Y12 Platelet Inhibitor Start: 04-13-2024 take 1 tablet by mouth once daily Clopidogrel 75 mg tablet Active 75 MG PO Daily May 06, 2024 12:00am Complies with drug therapy Start: 01-02-2021 End: 03-18-2024 take 1 tablet by mouth once daily Clopidogrel 75 mg Tablet Discontinued 75 MG PO Daily January 02, 2021 12:00am March 18, 2024 9:42am Comment on above: Take 75 mg by mouth once daily. Continuous Blood Gluc Video Game Creator (FreeStyle Silvino 2 Hutchins) device (20 sources) Start: 10-24-2023 Continuous Blood Gluc Video Game Creator (FreeStyle Silvino 2 Hutchins) device Indications: Type 2 diabetes mellitus with hyperglycemia, with long-term current use of insulin ([facility]) 1 each Daily 1 each 10/24/2023 Active Start: 10-24-2023 Continuous Blo od Gluc Video Game Creator (FreeStyle Silvino 2 Hutchins) device Indications: Type 2 diabetes mellitus with hyperglycemia, with long-term current use of insulin ([facility]) 1 each Daily 1 each 10/24/2023 Active Continuous Glucose Sensor (FreeStyle Silvino 3 Sensor) misc (20 sources) Start: 01-09-2024 Continuous Glu cose Sensor (FreeStyle Silvino 3 Sensor) [facility] Indications: Type 2 diabetes mellitus with hyperglycemia, with long-term current use of insulin ([facility]) 1 each every 14 (fourteen) days 2 each 01/09/2024 Active Start: 01-09-2024 Continuous Glu cose Sensor (FreeStyle Silvino 3 Sensor) [facility] Indications: Type 2 diabetes mellitus with hyperglycemia, with long-term current use of insulin ([facility]/HCC) 1 each every 14 (fourteen) days 2 each 01/09/2024 Active Flash Glucose Scanning Hutchins (Freestyle Silvino 2 Hutchins) misc (1 source) Start: 04-07-2025 Flash Glucose Scanning Hutchins (Freestyle Silvino 2 Hutchins) [facility] Active 0 .ROUTE April 07, 2025 12:00am As directed Flash Glucose Sensor (Freestyle Silvino 2 Sensor) kit (1 source) Start: 04-07-2025 Flash Glucose Sensor (Freestyle Silvino 2 Sensor) kit Active 0 .ROUTE April 07, 2025 12:00am As directed gabapentin 300 mg oral capsule (20 sources) Anti-epileptic Agent Start: 07-22-2023 End: 01-05-2025 take 1 capsule by mouth three times daily Gabapentin 300 mg capsule Active 300 MG PO Three times daily March 18, 2024 12:00am Complies with drug therapy Start: 06-09-2023 End: 08-27-2023 take 1 capsule by mouth at bedtime, then take 1 capsule by mouth twice daily, then take 1 capsule by mouth three times daily gabapentin (NEURONTIN) 100 mg capsule TAKE 1 CAPSULE BY MOUTH AT BEDTIME FOR 1 DAY, THEN TAKE 1 CAPSULE TWICE DAILY FOR 1 DAY, AND THEN TAKE 1 CAPSULE THREE TIMES DAILY 06/09/2023 Active glipiZIDE 10 mg oral tablet (20 sources) Sulfonylurea Start: 04-07-2025 take 1 tablet by mouth once daily Glipizide 10 mg tablet Active 10 MG PO Daily April 07, 2025 12:00am Complies with drug therapy Start: 02-16-2025 take 1 tablet by sierra th once daily glipiZIDE (Glucotrol) 10 MG tablet Indications: Type 2 diabetes mellitus with hyperglycemia, with long-term current use of insulin (HCC) Take 1 tablet by mouth once daily 30 tablet 02/16/2025 Active Start: 08-26-2024 take 1 tablet by sierra th once daily glipiZIDE (Glucotrol) 10 MG tablet Indications: Type 2 diabetes mellitus with hyperglycemia, with long-term current use of insulin (HCC) Take 1 tablet (10 mg) by mouth Daily 30 tablet 5 08/26/2024 Active Start: 01-02-2021 End: 07-09-2024 take 1 tablet by mouth twice daily Glipizide 10 mg Tablet Discontinued 10 MG PO Twice daily January 02, 2021 12:00am March 18, 2024 9:42am Comment on above: Take 10 mg by mouth twice daily before meals. insulin glargine 100 unt/ml injectable solution (20 sources) Insulin Analog Start: inject 52 [IU] by subcutaneous injection in the morning insulin glargine (Lantus) 100 UNIT/ML injection Indications: Type 2 diabetes mellitus with hyperglycemia, with long-term current use of insulin ([facility]) Inject 52 Units under the skin in the morning. 50 mL 3 10/18/2024 Active Start: 02-26-2024 inject 52 [IU] by piper bcutaneous injection in the morning insulin glargine (Lantus) 100 UNIT/ML injection Indications: Type 2 diabetes mellitus with hyperglycemia, with long-term current use of insulin ([facility]/HCC) Inject 52 Units under the skin in the morning. 50 mL 3 02/26/2024 Active Start: 01-02-2021 End: 03-18-2024 inject 52 [IU] by subcutaneous injection once daily Insulin Glargine (Lantus U-100 Insulin) 100 unit/mL Solution Active 52 UNIT SUBCUT Daily January 02, 2021 12:00am Complies with drug therapy Start: 01-02-2021 End: 03-18-2024 Insulin Glargine 100 unit/mL Solution Discontinued SUBCUT January 01, 2021 11:00pm March 18, 2024 8:40am Comment on above: Inject subcutaneousl y as directed. Insulin Glargine (Lantus U-100 Insulin) 100 unit/mL Solution (1 source) Start: 01-03-20 inject 52 [IU] by subcutaneous injection once daily Insulin Glargine (Lantus U-100 Insulin) 100 unit/mL Solution Active 52 UNIT SUBCUT Daily January 01, 2021 11:00pm insulin glargine,hum.rec. anlog (INSULIN GLARGINE SUBQ) (20 sources) inject 54 [IU] by subcutaneous injection once daily insulin glargine,hum.rec. anlog (INSULIN GLARGINE SUBQ) Inject 54 Units under the skin daily. Lantus Suspended inject 54 [IU] by piper bcutaneous injection once daily insulin glargine,hum.rec.anlog (INSULIN GLARGINE SUBQ) Inject 54 Units under the skin daily. Lantus Active inject 54 [IU] by piper bcutaneous injection once daily insulin glargine,hum.rec.anlog (INSULIN GLARGINE SUBQ) Inject 54 Units under the skin daily. Lantus 0 Active lisinopril 30 mg oral tablet (20 sources) Angiotensin Converting Enzyme Inhibitor Start: 07-22-2023 End: 07-09-2024 take 1 tablet by mouth in the morning lisinopril 30 MG tablet Indications: Benign essential HTN (CMS/HCC) Take 1 tablet (30 mg) by mouth in the morning. 90 tablet 3 07/22/2023 Active Start: 06-17-2023 take 1.5 tablets by mouth in the morning lisinopriL (PRINIVIL,ZESTRIL) 20 mg tablet Take 1.5 tablets (30 mg total) by mouth in the morning. 135 tablet 3 06/17/2023 Suspended Start: 01-02-2021 End: 05-06-2024 take 1 tablet by mouth once daily Lisinopril 40 mg Tablet Discontinued 40 MG PO Daily January 02, 2021 12:00am May 06, 2024 10:37am Comment on above: Take 40 mg by mouth once daily. losartan potassium 50 mg oral tablet (20 sources) Angiotensin 2 Receptor Shireen Start: 04-07-2025 take 1 tablet by mouth once daily Losartan 50 mg tablet Active 50 MG PO Daily April 07, 2025 12:00am Complies with drug therapy Start: 08-12-2024 End: 04-07-2025 Losartan 100 mg tablet Disco ntinued 50 MG PO Daily August 12, 2024 1:00am April 07, 2025 10:17am Start: 04-30-2024 End: 08-12-2024 Losartan 50 mg tablet Discon tinued MG PO May 06, 2024 12:00am August 12, 2024 10:43am Magnesium (20 sources) take 1 tablet by sierra th once daily in the morning Magnesium 250 mg tab Take 1 tablet by mouth every morning. Active take 1 tablet by mouth in the mo rning MAGNESIUM PO Take 1 tablet by mouth in the morning. Active qbcowqcl-hrjy-YD-calcium &mi ns (THERAGRAN-M) 9 mg iron-400 mcg tablet (13 sources) awffirjw-hsot-WA -calcium &mins (THERAGRAN-M) 9 mg iron-400 mcg tablet Take 1 tablet by mouth in the morning. Suspended rtcbozfk-yavo-LU -calcium &mins (THERAGRAN-M) 9 mg iron-400 mcg tablet Take 1 tablet by mouth in the morning. Active xnockahf-djpx-HH -calcium &mins (THERAGRAN-M) 9 mg iron-400 mcg tablet Take 1 tablet by mouth in the morning. 0 Active bxfxlhslnzso-spmr-juxxmgxf-f olic acid (Theragran-M) tablet (20 sources) take 1 tablet by mouth once daily dhoiiudwapdl-zzcx-qyrbtwrq-folic acid (Theragran-M) tablet Take 1 tablet by mouth Daily Active Mv,Ca,Joo-Lmfv-Zg-Lycopene ( Centrum Men) 8 mg iron- 200 mcg-600 mcg tablet (4 sources) Sta rt: Mv,Ca,Pmo-Waaq-Xn-Lycopene ( Centrum Men) 8 mg iron- 200 mcg-600 mcg tablet Active 1 TAB PO Daily August 16, 2024 1:00am Complies with drug therapy Start: 08-16-2024 Mv,Ca,Min-Iron -Fa-Lycopene (Centrum Men) 8 mg iron- 200 mcg- 600 mcg tablet Active 1 TAB PO Daily August 16, 2024 12:00am [place]-3 Fatty Acids (Super [place]-3) 1,000 mg capsule (3 sources) Start: 02-08-2025 take 3 capsules by mouth once daily [place]-3 Fatty Acids (Super [place]-3) 1,000 mg capsule Active 1000 MG PO Daily February 08, 2025 12:00am Complies with drug therapy pantoprazole 40 mg delayed release oral tablet (20 sources) Proton Pump Inhibitor Start: 02-08-2025 take 1 tablet by mouth twice daily Pantoprazole 40 mg tablet,delayed release (DR/EC) Active 40 MG PO Twice daily February 08, 2025 1:40pm Complies with drug therapy Start: 06-19-2024 End: 02-08-2025 take 1 tablet by mouth once daily Pantoprazole 40 mg tablet,delayed release (DR/EC) Discontinued 40 MG PO Daily August 12, 2024 1:00am February 08, 2025 1:42pm potassium gluconate 2.5 meq oral tablet (20 sources) Start: 02-08-2025 take 1 tablet by mouth once daily Potassium Gluconate 595 mg (99 mg) tablet Active 595 MG PO Daily February 08, 2025 12:00am Complies with drug therapy take 1 tablet by mouth in the mo rning potassium gluconate 595 mg (99 mg) tablet extended release Take 1 tablet (595 mg total) by mouth in the morning. Active take 1 capsule by mouth once jaimie ly Potassium Gluconate 595 MG capsule Take 595 mg by mouth Daily Active primidone 50 mg oral tablet (20 sources) Anti-epileptic Agent Start: 05-12-2024 take 1 tablet by mouth once daily Primidone 50 mg tablet Active 50 MG PO Daily August 12, 2024 1:00am Complies with drug therapy resveratrol 250 mg oral capsule (20 sources) Start: 08-16-2024 take 1 capsule by mouth once daily Resveratrol 250 mg capsule Active 500 MG PO Daily August 16, 2024 1:00am Complies with drug therapy take 2 capsules by mouth once da luis Resveratrol 250 MG capsule Take 2 capsules by mouth Daily Active sildenafil 100 mg oral tablet (4 sources) Phosphodiesterase 5 Inhibitor Viagra 100 MG tablet 1 (one) time each day at the same time. Active therapeutic multivitamin-minerals (THERA-M PLUS) 9 mg iron-400 mcg tablet (11 sources) therapeutic multivitamin-minerals (THERA-M PLUS) 9 mg iron-400 mcg tablet Take 1 tablet by mouth every morning. Active ubidecarenone 100 mg oral capsule (20 sources) Start: 08-16-2024 Coenzyme Q10 (Coq-10) 100 mg capsule Active 100 MG PO Daily August 16, 2024 1:00am Complies with drug therapy Start: 01-02-2021 Coenzyme Q10 A ctive 10 MG PO Once January 02, 2021 12:00am take 1 capsule by mo ut once in the morning coenzyme Q10 100 mg capsule Take 1 capsule (100 mg total) by mouth in the morning. Active End: 07-09-2024 coenzyme Q10 (COENZYME Q-10) 100 mg cap capsule Take 100 mg by mouth once daily. 07/09/2024 Discontinued (Discontinued by Patient) Comment on above: Take 100 mg by mouth once daily. ubidecarenone 100 mg / vitamin e 5 unt oral capsule (20 sources) take 1 capsule by mouth in the morning coenzyme Q-10 100 MG capsule Take 100 mg by mouth in the morning. Active vitamin e 450 mg oral capsule (4 sources) take 1 capsule by mouth once daily vitamin E capsule Take 1,000 Units by mouth Daily Active Completed/Discontinued Medications Medication Drug Class(es) Dates Sig (Normalized) Sig (Original) acetaminophen 325 mg oral tablet (1 source) Start: 07-28-2024 End: 07-28-2024 take 1 dose by mouth once, then take 4000 mg by mouth once daily 650 mg, ORAL, ONCE, 1 dose, On Fri07/28/24 at 1100, No more than 4000 mg of acetaminophen should be given per day (FROM ALL SOURCES) Start: 07-28-2024 End: 07-28-2024 take 1 dose by mouth once, then take 4000 mg by mouth once daily 650 mg, ORAL, ONCE, 1 dose, On Fri07/28/24 at 1100, No more than 4000 mg of acetaminophen should be given per day (FROM ALL SOURCES) apixaban 5 mg oral tablet (20 sources) Factor Xa Inhibitor Start: 04-29-2024 End: 08-12-2024 Apixaban (Eliquis) 5 mg tablet Discontinued MG PO May 06, 2024 12:00am August 12, 2024 10:45am ascorbic acid 500 mg oral tablet (13 sources) Vitamin C Start: 01-02-2021 End: 08-16-2024 take 1 tablet by mouth once daily Ascorbic Acid (Vitamin C) (Vitamin C) 500 mg Tablet Discontinued 500 MG PO Daily January 02, 2021 12:00am August 16, 2024 1:23pm Comment on above: Take 500 mg by mouth once daily. Calcium Phos,Dibas-Vitam in D3 77-400 mg-unit Tablet (4 sources) Start: 01-02-2021 End: 08-16-2024 take 1 tablet by mouth once daily Calcium Phos,Dibas-Vitamin D3 77-400 mg-unit Tablet Discontinued 1 TAB PO Daily January 02, 2021 12:00am August 16, 2024 1:23pm Start: 01-02-2021 End: 08-16-2024 take 1 tablet by mouth once daily Calcium Phos,Dibas-Vitamin D3 77-400 mg-unit Tablet Discontinued 1 TAB PO Daily January 01, 2021 11:00pm August 16, 2024 12:23pm diphenhydrAMINE hydrochloride 25 mg oral capsule (1 source) Histamine-1 Receptor Antagonist Start: 07-28-2024 End: 07-28-2024 take 1 dose by mouth once 25 mg, ORAL, ONCE, 1 dose, On Fri07/28/24 at 1100 Start: 07-28-2024 End: 07-28-2024 take 1 dose by mouth once 25 mg, ORAL, ONCE, 1 dose, O n Fri07/28/24 at 1100 ferric derisomaltose 1,000 m g in NaCl 0.9% 100 mL (MONOFERRIC) (2 sources) Start: 11-04-2024 End: 11-04-2024 1,000 mg (set by rule on 10/26 3:25 PM), INTRAVENOUS, Administer over 20 Minutes, ONCE, 1 dose, On Angelica 11/04/24 at 1430, Monitor patient for hypersensitivity reactions during the infusion and for 30 minutes after infusion is complete. EXP: 11/04/2024 214 RT EXP: (8 HR) Start: 07-28-2024 End: 07-28-2024 1,000 mg (set by rule on 07/23 10:58 AM), INTRAVENOUS, Administer over 45 Minutes, ONCE, 1 dose, On Fri07/28/24 at 1130, Monitor patient for hypersensitivity reactions during the infusion and for 30 minutes after infusion is complete. EXP: 07/28/2024 1900 RT EXP: (8 HR) furosemide 40 mg oral tablet (6 sources) Loop Diuretic End: 07-09-2024 furosemide (LASIX) 40 mg tablet Take 40 mg by mouth as needed. 07/09/2024 Discontinued (Discontinued by Patient) Comment on above: Take 40 mg by mouth once daily. magnesium oxide 400 mg oral tablet (16 sources) End: 07-09-2024 magnesium oxide (MAG-OX) 400 mg (241.3 mg magnesium) tablet Take 400 mg by mouth. 07/09/2024 Discontinued (Discontinued by Patient) 24 hr metFORMIN hydrochloride 500 mg extended release oral tablet (20 sources) Biguanide Start: 08-12-2024 take 1 tablet by mouth once daily in the morning Metformin 500 mg tablet extended release 24 hr Active 500 MG PO Daily August 12, 2024 1:00am On Hold: Resume on 08/19/24. Please hold this medication until . Resume a.m. Complies with drug therapy Start: 01-02-2021 End: 08-12-2024 take 1 tablet by mouth once daily Metformin 500 mg Tablet Discontinued 500 MG PO Daily January 02, 2021 12:00am August 12, 2024 10:44am Start: 08-04-2018 take 1 tablet by sierra th every twenty-four hours at mealtime metFORMIN XR (Glucophage-XR) 500 MG 24 hr tablet Indications: Type 2 diabetes mellitus with hyperglycemia, with long-term current use of insulin (HCC) Take 1 tablet (500 mg) by mouth in the evening. Take with meals 90 tablet 3 10/18/2024 Active Comment on above: Take 500 mg by mouth daily with breakfast. pravastatin sodium 10 mg oral tablet (20 sources) HMG-CoA Reductase Inhibitor Start: End: take 1 tablet by mouth once daily Pravastatin 10 mg Tablet Discontinued 10 MG PO Daily January 02, 2021 12:00am January 02, 2021 12:20pm Start: 01-02-2021 End: 03-18-2024 take 1 tablet by mouth once daily Pravastatin 20 mg tablet Discontinued 20 MG PO Daily January 02, 2021 12:00am March 18, 2024 9:40am Comment on above: Take 20 mg by mouth once daily. rosuvastatin calcium 10 mg oral tablet (20 sources) HMG-CoA Reductase Inhibitor Start: 4 End: take 1 tablet by mouth once daily Rosuvastatin 10 mg tablet Discontinued 10 MG PO Daily May 06, 2024 12:00am August 12, 2024 10:43am Start: 04-19-2024 take 1 tablet by sierra th once daily Rosuvastatin 40 mg tablet Active 40 MG PO Daily August 12, 2024 1:00am Complies with drug therapy Start: 04-08-2023 End: 05-06-2024 Rosuvastatin 20 mg tablet Discontinued 20 MG PO March 18, 2024 12:00am May 06, 2024 10:36am take 2 tablets by mo [facility] in the morning rosuvastatin (CRESTOR) 20 mg tablet Take 2 tablets (40 mg total) by mouth in the morning. Suspended take 1 tablet by sierra th in the morning rosuvastatin (Crestor) 40 MG tablet Take 40 mg by mouth in the morning. Active ticagrelor 90 mg oral tablet (20 sources) Start: 07-05-2023 End: 07-09-2024 Ticagrelor (Brilinta) 90 mg tablet Discontinued 90 MG PO March 18, 2024 12:00am May 06, 2024 10:37am Start: 04-08-2023 End: 04-02-2024 take 1 tablet by mouth once ticagrelor (BRILINTA) 90 m g tablet Take 1 tablet (90 mg total) by mouth every 12 (twelve) hours for 360 days. 60 tablet 11 04/08/2023 04/02/2024 Active Zinc (20 sources) Start: 01-02-2021 End: 03-18-2024 take 1 tablet by mouth once daily Zinc Tablet,Chewable Discontinued 1 TAB PO Daily January 02, 2021 12:00am March 18, 2024 9:42am Start: 01-02-2021 End: 03-18-2024 take 1 tablet by mouth once daily Zinc Tablet,Chewable Discontinued 1 TAB PO Daily January 01, 2021 11:00pm March 18, 2024 8:42am Start: 01-02-2021 End: 03-18-2024 take 1 tablet by mouth once daily Zinc Discontinued 1 TAB PO Daily January 02, 2021 12:00am March 18, 2024 9:42am Start: 01-02-2021 take 1 tablet by sierra th once daily Zinc Active 1 TAB PO Daily January 02, 2021 12:00am take 1 tablet by sierra th once daily Zinc 50 mg tab Take 50 mg by mouth once daily. Active take 1 tablet by sierra th once daily Zinc 50 mg tab Take 50 mg by mouth once daily. 0 Active Comment on above: Take 50 mg by mouth once daily. Problems Active Problems Problem Classification Problem Date Documented Date Episodic/Chronic Abdominal hernia (1 source) Left inguinal hernia ; Translations: [Unilateral inguinal hernia, without obstruction or gangrene, not specified as recurrent] 04-07-2025 Episodic Acute myocardial infarction (20 sources) Non-ST elevation (NSTEMI) myocardial infarction; Translations: [Acute non-ST segment elevation myocardial infarction] Onset: 3 Resolved: 4 07-22-2023 Chronic Cancer; other and unspecified primary (1 source) Squamous cell carcinoma in situ; Translations: [Carcinoma in situ, unspecified] 04-07-2025 Chronic Comment on above: SCC in situ, left ja zohaib, Mohs Cardiac dysrhythmias (20 sources) Unspecified atrial fibrillation; Translations: [Paroxysmal atrial fibrillation] Onset: 4 06-24-2024 Chronic Cardiac dysrhythmias (20 sources) Bradycardia, unspecified; Translations: [Other specified cardiac dysrhythmias] Onset: 3 07-01-2023 Episodic Chronic kidney disease (20 sources) Chronic kidney disease stage 3; Translations: [Stage 3 chronic kidney disease, unspecified whether stage 3a or 3b CKD (HCC)] Onset: 3 Chronic Chronic kidney disease (1 source) Chronic kidney disease; Translations: [Chronic kidney disease, stage 3b] Onset: 4 Coagulation and hemorrhagic disorders (2 sources) Senile purpura; Translations: [Other nonthrombocytopenic purpura] 01-06-2025 Episodic Conduction disorders (17 sources) Other specified heart block; Translations: [Sinus node dysfunction] Onset: 4 08-27-2023 Chronic Congestive heart failure; nonhypertensive (20 sources) Acute on chronic diastolic (congestive) heart failure; Translations: [Chronic heart failure co-occurrent with normal ejection fraction] Onset: 4 05-12-2024 Chronic Coronary atherosclerosis and other heart disease (20 sources) Atherosclerotic heart disease of [place] coronary artery without angina pectoris; Translations: [Coronary arteriosclerosis] Onset: 3 07-01-2023 Chronic Deficiency and other anemia (2 sources) Anemia; Translations: [Anemia, unspecified] 07-09-2024 Episodic Deficiency and other anemia (12 sources) Iron deficiency anemia; Translations: [Other iron deficiency anemias] Onset: 5 07-23-2024 Episodic Diabetes mellitus with complications (20 sources) Type 2 diabetes mellitus with hyperglycemia; Translations: [Type 2 diabetes mellitus with peripheral angiopathy] Onset: 2 Chronic Diseases of white blood cells (20 sources) Elevated white blood cell count, unspecified; Translations: [Lymphocytosis] Onset: 2 Chronic Disorders of lipid metabolism (20 sources) Hyperlipidemia, unspecified; Translations: [Hyperlipidemia] Onset: 1 07-01-2023 Chronic Esophageal disorders (1 source) Gastroesophageal reflux disease; Translations: [Gastro-esophageal reflux disease without esophagitis] 04-07-2025 Chronic Essential hypertension (20 sources) Essential (primary) hypertension; Translations: [Benign essential hypertension] Onset: 2 Resolved: 4 07-01-2023 Chronic Gastritis and duodenitis (20 sources) Acute hemorrhagic gastritis; Translations: [Acute gastritis with bleeding] Onset: 4 06-24-2024 Episodic Genitourinary symptoms and ill-defined conditions (1 source) Dysuria; Translations: [Dysuria] 04-07-2025 Episodic Hypertension with complications and secondary hypertension (9 sources) Hypertensive emergency; Translations: [Hypertensive renal disease] Onset: 4 02-08-2025 Chronic Immunity disorders (2 sources) Secondary immune deficiency disorder; Translations: [Immunodeficiency due to conditions classified elsewhere (CMS/[facility])] 11-10-2024 Chronic Leukemias (20 sources) Chronic lymphoid leukemia, disease; 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] Onset: 2 Chronic Malaise and fatigue (2 sources) Malaise and fatigue; Translations: [Other malaise] 07-16-2024 Episodic Neoplasms of unspecified nature or uncertain behavior (2 sources) Neoplastic disease; Translations: [Neoplasm of unspecified behavior of bone, soft tissue, and skin] 07-08-2024 Episodic Nutritional deficiencies (20 sources) Vitamin D deficiency, unspecified; Translations: [Vitamin D deficiency] Onset: 2 10-24-2023 Chronic Occlusion or stenosis of precerebral arteries (20 sources) Bilateral stenosis of carotid arteries; Translations: [Occlusion and stenosis of bilateral carotid arteries] Onset: 0 07-01-2023 Chronic Osteoarthritis (1 source) Osteoarthritis; Translations: [Unspecified osteoarthritis, unspecified site] 04-07-2025 Chronic Other aftercare (1 source) half-way (current) use of insulin; Translations: [PENITENTIARY CURRENT USE OF INSULIN] Onset: 2 Episodic Other aftercare (1 source) Other alf (current) drug therapy; Translations: [OTH PSYCHIATRIC NURSING AIDE CURRENT DRUG THERAPY] Onset: 2 Episodic Other and ill-defined heart disease (2 sources) Other ill-defined heart diseases; Translations: [Other ill-defined heart diseases] Onset: 5 Chronic Other circulatory disease (20 sources) History of angioplasty; Translations: [Peripheral vascular angioplasty status with implants and grafts] Onset: 0 11-12-2022 Chronic Other circulatory disease (2 sources) Peripheral vascular angioplasty status with implants and grafts; Translations: [Peripheral vascular angioplasty status with implants and grafts] Onset: 4 Chronic Other circulatory disease (5 sources) Abnormal peripheral pulse; Translations: [Other specified symptoms and signs involving the circulatory and respiratory systems] 04-14-2024 Episodic Other circulatory disease (1 source) Other specified symptoms and signs involving the circulatory and respiratory systems; Translations: [Other symptoms involving cardiovascular system] 04-14-2024 Episodic Other circulatory disease (2 sources) Spider nevus; Translations: [Nevus, non-neoplastic] 01-06-2025 Episodic Other connective tissue disease (2 sources) Trochanteric bursitis; Translations: [Trochanteric bursitis, right hip] 04-13-2024 Episodic Other connective tissue disease (5 sources) Pain in left lower limb; Translations: [Pain in left leg] 04-14-2024 Episodic Other connective tissue disease (2 sources) Trochanteric bursitis, right hip; Translations: [Enthesopathy of hip region] 04-13-2024 Episodic Other connective tissue disease (1 source) Pain in left leg; Translations: [Pain in limb] 04-14-2024 Episodic Other connective tissue disease (20 sources) Other symptoms and signs involving the musculoskeletal system; Translations: [Other musculoskeletal symptoms referable to limbs] Onset: 4 12-18-2023 Episodic Other connective tissue disease (3 sources) Bilateral trochanteric bursitis; Translations: [Trochanteric bursitis, right hip] 04-13-2024 Episodic Other inflammatory condition of skin (2 sources) Prurigo nodularis; Translations: [Prurigo nodularis] 08-20-2024 Episodic Other male genital disorders (1 source) Male erectile dysfunction, unspecified; Translations: [Erectile dysfunction] 04-07-2025 Chronic Other nervous system disorders (20 sources) Normal pressure hydrocephalus; 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] Onset: 3 07-01-2023 Chronic Other nervous system disorders (8 sources) Polyneuropathy; Translations: [Polyneuropathy, unspecified] 11-16-2024 Chronic Other nervous system disorders (20 sources) Abnormal gait; Translations: [Unsteadiness on feet] Onset: 4 06-24-2024 Episodic Other nervous system disorders (20 sources) Tremor; Translations: [Tremor, unspecified] Onset: 4 08-03-2024 Episodic Other non-epithelial cancer of skin (2 sources) History of squamous cell carcinoma of skin; Translations: [Personal history of other malignant neoplasm of skin] 07-08-2024 Episodic Other nutritional; endocrine; and metabolic disorders (1 source) Overweight; Translations: [Overweight] 04-07-2025 Episodic Other skin disorders (4 sources) Actinic keratosis; Translations: [Actinic keratosis] 07-08-2024 Episodic Other skin disorders (4 sources) Lentiginosis; Translations: [Other melanin hyperpigmentation] 07-08-2024 Episodic Other skin disorders (4 sources) Seborrheic keratosis; Translations: [Other seborrheic keratosis] 07-08-2024 Episodic Other upper respiratory disease (20 sources) Change in voice; Translations: [Unspecified voice and resonance disorder] Onset: 4 02-26-2024 Episodic Peripheral and visceral atherosclerosis (20 sources) Peripheral vascular disease, unspecified; Translations: [Peripheral arterial disease] Onset: 0 07-02-2023 Chronic Comment on above: Problem List clean-u p per request of Phys. EHR Cmte Pulmonary heart disease (1 source) Pulmonary hypertension; Translations: [Pulmonary hypertension, unspecified] 08-26-2023 Chronic Residual codes; unclassified (20 sources) Obstructive sleep apnea syndrome; Translations: [Obstructive sleep apnea (adult) (pediatric)] Onset: 3 07-01-2023 Chronic Residual codes; unclassified (1 source) Obstructive sleep apnea (adult) (pediatric); Translations: [Obstructive sleep apnea (adult) (pediatric)] Onset: 5 Chronic Screening and history of mental health and substance abuse codes (9 sources) Ex-smoker; Translations: [Personal history of nicotine dependence] 04-14-2024 Episodic Spondylosis; intervertebral disc disorders; other back problems (20 sources) Lumbar spondylosis; Translations: [Spondylosis without myelopathy or radiculopathy, lumbar region] Onset: 4 04-13-2024 Chronic Spondylosis; intervertebral disc disorders; other back problems (20 sources) Lumbar radiculopathy; Translations: [Radiculopathy, lumbar region] Onset: 4 02-26-2024 Episodic Unclassified (1 source) New Patient Onset: 4 Unclassified (1 source) Weakness - Generalized Onset: 4 Unclassified (1 source) EMS Onset: 4 Unclassified (1 source) R25.1 - Tremor, unspecified,M51.369 - Other intervertebral disc degeneration, lumbar region without mention of lumbar back pain or lower extremity pain,G62.9 - Polyneuropathy, unspecified,R26.81 - Unsteadiness on feet Past or Other Problems Problem Classification Problem Date Documented Da te Episodic/Chronic Acute and unspecified renal failure (1 source) Acute kidney failure, unspecified; Translations: [Acute kidney failure, unspecified] Onset: 4 Episodic Acute posthemorrhagic anemia (2 sources) Acute posthemorrhagic anemia; Translations: [Acute posthemorrhagic anemia] Onset: 4 Episodic Deficiency and other anemia (1 source) Other iron deficiency anemias; Translations: [Other iron deficiency anemia] Onset: 5 Episodic Diabetes mellitus without complication (1 source) Hyperglycemia, unspecified; Translations: [Hyperglycemia, unspecified] Onset: 4 Episodic Fluid and electrolyte disorders (1 source) Dehydration; Translations: [Dehydration] Onset: 4 Episodic Gastrointestinal hemorrhage (4 sources) Gastrointestinal hemorrhage, unspecified; Translations: [Melena] Onset: 4 Episodic Mood disorders (20 sources) Mood disorders Onset: 3 Resolved: 5 04-05-2023 Other aftercare (20 sources) Long-term current use of drug therapy; Translations: [Other alf (current) drug therapy] Onset: 4 10-24-2023 Episodic Other aftercare (4 sources) Patient encounter status; Translations: [Other rat exterminator (current) drug therapy] Onset: 4 10-24-2023 Episodic Other hereditary and degenerative nervous system conditions (20 sources) Essential tremor; Translations: [Essential tremor] Onset: 4 Resolved: 4 10-24-2023 Chronic Other lower respiratory disease (1 source) Acute pulmonary edema; Translations: [Acute pulmonary edema] Onset: 4 Episodic Other lower respiratory disease (1 source) Shortness of breath; Translations: [Shortness of breath] Onset: 4 Episodic Other lower respiratory disease (1 source) Shortness of breath Onset: 4 Episodic Other nutritional; endocrine; and metabolic disorders (20 sources) Body mass index 25-29 - overweight; Translations: [Overweight] Onset: 3 07-01-2023 Episodic Other nutritional; endocrine; and metabolic disorders (1 source) H/O: raised blood lipids; Translations: [Personal history of other endocrine, nutritional and metabolic disease] 08-26-2023 Episodic Other screening for suspected conditions (not mental disorders or infectious disease) (20 sources) Encounter for screening for malignant neoplasm of prostate; Translations: [Abnormal results of cardiovascular function studies] Onset: 2 Resolved: 4 07-22-2023 Episodic Other upper respiratory disease (20 sources) Hoarse; Translations: [Dysphonia] Onset: 4 Resolved: 4 02-26-2024 Episodic Other upper respiratory infections (20 sources) Acute upper respiratory infection; Translations: [Acute upper respiratory infection, unspecified] Onset: 3 Resolved: 4 10-24-2023 Episodic Pneumonia (except that caused by tuberculosis or sexually transmitted disease) (20 sources) Pneumonia; Translations: [Pneumonia, unspecified organism] Onset: 4 Resolved: 4 02-26-2024 Episodic Residual codes; unclassified (20 sources) Bilateral lower limb edema; Translations: [Localized edema] Onset: 4 Resolved: 4 07-22-2023 Episodic Respiratory failure; insufficiency; arrest (adult) (11 sources) Acute hypoxemic and hypercapnic respiratory failure; Translations: [Acute respiratory failure with hypoxia] Onset: 4 04-27-2024 Episodic Syncope (1 source) Syncope and collapse; Translations: [Syncope and collapse] Onset: 4 Episodic Results Test Name Value Interpretation Reference Range Facility Albumin [Mass/volume] in Ser um or PlasmaOrdered By: Laura Sinha on 03-30-2025 Albumin [Mass/Vol] 3.8 g/dL 2.9-4.4 [facility] Borrelia burgdorferi IgG+IgM Ab [Presence] in Serum by ImmunoassayOrdered By: Laura Sinha on 03-30-2025 B. burgdorferi IgG+IgM IA Ql (S) Negative Negative [facility] Comment on above: Lyme antibodies not detected. Reflex testing is notindicated.No laboratory evidence of infection with B. burgdorferi(Lyme disease). Negative results may occur in patientsrecently infected (less than or equal to 14 days) with B.burgdorferi. If recent infection is suspected, repeattesting on a new sample collected in 7 to 14 days isrecommended.Performed at: [address] [id number] Director: Bala Mckenzie PhD, Phone: [phone] Glucose mean value [Mass/vol ume] in Blood Estimated from glycated hemoglobinOrdered By: Laura Sinha on 03-30-2025 Average glucose Estimated from glycated hemoglobin (Bld) [Mass/Vol] 186 mg/dL [facility] Hemoglobin A1c percentageOrd ered By: Laura Sinha on 03-30-2025 HbA1c (Bld) [Mass fraction] 8.1 % High 4.5-6.2 [facility] Comment on above: ADA RECOMMENDED LIMI T 4.0 - 6.0ADA THERAPEUTIC TARGET < 7.0ACTION SUGGESTED> 7.0 IgA [Mass/volume] in Serum o r PlasmaOrdered By: Laura Sinha on 03-30-2025 IgA [Mass/Vol] 131 mg/dL 61-437 [facility] IgG [Mass/volume] in Serum o r PlasmaOrdered By: Laura Sinha on 03-30-2025 IgG [Mass/Vol] 822 mg/dL 603-1613 [facility] IgM [Mass/volume] in Serum o r PlasmaOrdered By: Laura Sinha on 03-30-2025 IgM [Mass/Vol] 33 mg/dL 15-143 [facility] Comment on above: Performed at: [facility] [place] [id number] Director: Bala Mckenzie PhD, Phone: [phone] Laboratory - Chemistry and C hemistry - challengeOrdered By: Laura Sinha on 03-30-2025 Cobalamin (Vitamin B12) [Mass/Vol] 1390 pg/mL Abnormal 232-1245 [facility] Comment on above: Performed at: [employer] [place] [id number] Director: Bala Mckenzie PhD, Phone: [phone] TSH Qn 3.010 m[IU]/L 0.358-3.74 0 [facility] No Panel InformationOrdered By: Laura Sinha on 03-30-2025 HIV (1&2) Antibody Screen Non-Reactive Non Reactive [facility] Comment on above: HIV-1/HIV-2 antibodi es and HIV-1 p24 antigen were NOTdetected. There is no laboratory evidence of HIV infection.HIV NegativePerformed at: [facility] [place] [id number] Director: Bala Mckenzie PhD, Phone: [phone] Protein Electrophoresis M-Raghu Not Observed g/dL Not Observed [facility] Protein Electrophoresis Note Comment . [facility] Comment on above: Protein electrophore sis scan will follow via computer,mail, or in home baby sitter delivery.Performed at: [facility] [place] [id number] Director: Bala Mckenzie PhD, Phone: [phone] Serum Immunofixation Comment . [facility] Comment on above: No monoclonality det ected. Protein [Mass/volume] in Ser um or PlasmaOrdered By: Laura Sinha on 03-30-2025 Protein [Mass/Vol] 6.7 g/dL 6.0-8.5 [facility] Reagin Ab [Presence] in Seru m by RPROrdered By: Laura Sinha on 03-30-2025 Reagin Ab RPR Ql (S) Non-Reactive Non Reactive [facility] Comment on above: Performed at: [facility] [address] [id number] Director: Bala Mckenzie PhD, Phone: [phone] Serum globulin measurement ( mass/volume)Ordered By: Laura Sinha on 03-30-2025 Globulin (S) [Mass/Vol] 2.9 g/dL 2.2-3.9 [facility] Serum nuclear antibody titer Ordered By: Laura Sinha on 03-30-2025 Nuclear Ab (S) [Titer] Negative . [facility] Comment on above: Negative <1:80 Borde rline 1:80 Positive >1:80ICAP nomenclature: AC-0For more information about Hep-2 cell patterns useANApatterns.org, the official website for theInternational Consensus on Antinuclear Antibody (RAMÓN)Patterns (ICAP).Performed at: [email or web address] [address] [place], [place] [id number] Director: Bala Mckenzie PhD, Phone: [phone] Serum or plasma albumin/glob ulin mass ratioOrdered By: Laurakatie Sinha on 03-30-2025 Albumin/Globulin [Mass ratio] 1.3 {ratio} 0.7-1.7 [facility] Serum or plasma alpha 1 glob ulin measurement by electrophoresis (mass/volume)Ordered By: Laura Sinha on 03-30-2025 Alpha 1 globulin Elph [Mass/Vol] 0.3 g/dL 0.0-0.4 [facility] Serum or plasma alpha 2 glob ulin measurement by electrophoresis (mass/volume)Ordered By: Laura Sinha on 03-30-2025 Alpha 2 globulin Elph [Mass/Vol] 1.0 g/dL 0.4-1.0 [facility] Serum or plasma beta globuli n measurement by electrophoresis (mass/volume)Ordered By: Laura Sinha on 03-30-2025 Beta globulin Elph [Mass/Vol] 0.9 g/dL 0.7-1.3 [facility] Serum or plasma gamma globul in measurement by electrophoresis (mass/volume)Ordered By: Laura Sinha on 03-30-2025 Gamma globulin Elph [Mass/Vol] 0.8 g/dL 0.4-1.8 [facility] Serum or plasma pyridoxine m easurement (mass/volume)Ordered By: Laurakatie Sinha on 03-30-2025 Pyridoxine [Mass/Vol] 31.7 ug/L 3.4-65.2 [facility] Comment on above: This test was develo ped and its performance characteristicsdetermined by [facility]. It has not been cleared orapproved by the Food and Drug Administration. Deficiency: <3.4 Marginal: 3.4 - 5.1 Adequate: >5.1Performed at: [facility] [id number] Director: Porter Roy MD, Phone: [phone] Orders Onlyon 03-16-2025 Orders Only [id number] Lencho Morejon U 1945 M Date Provider Department Center 03/16/2025 FARTUN FERRELL [facility] Family History Family Status - Relation Status Age at Mother Father Normal [facility] CA ECHO DOPPLER COMPLETEon 0 01-28-2025 [place] [address] Cardiology Report Signed Patient: ILA MOREJON MR#: [id number] : 1945 Acct:[id number] Age/Sex: 79 / M ADM Date: 01/26/25 Loc: CARD Attending Dr: Hao Cardona M.D. Ordering Physician: Hao Cardona M.D. Date of Service: 01/26/25 Procedure(s): CA echo doppler complete Accession Number(s): [id number] cc: Hao Cardona M.D.; Cruzito Mcgrath M.D. Patient Name: ILA MOREJON MR#: [id number] : 1945 Exam Date: 01/26/2025 Ordering Doctor: DR HAO CARDONA M.D. ECHOCARDIOGRAM REPORT PROCEDURE: CA ECHO DOPPLER COMPLETE INDICATIONS: Heart failure with reduced ejection fraction, pacemaker, cardiac stents, hypertension, diabetes COMPARISON: None. DESCRIPTION: COMPLETE ECHOCARDIOGRAM Real-time transthoracic echocardiography with 2D, M-mode, spectral and color flow Doppler performed. QUALITY: Technical quality was good. LEFT VENTRICLE: Normal chamber size. Mild concentric left ventricular hypertrophy. Low normal left ventricular systolic function with abnormal septal motion probably due to paced rhythm, ejection fraction estimated to be 50% LV EF: 50% DIASTOLIC: diastolic dysfunction. ATRIAL SEPTUM: Visually appears intact. LEFT ATRIUM: Mild dilatation. RIGHT ATRIUM: Mild dilatation. RIGHT VENTRICLE: Normal chamber size. Normal systolic function. Pacer wire present. TRICUSPID VALVE: Normal mobility and thickness. No stenosis with mild regurgitation. Doppler studies reveal mildly (35-45) elevated right sided pressures.RVSP 37 mmHg MITRAL VALVE: Mildly thickened with normal mobility No mitral valve stenosis. Mild mitral annular calcification. No mitral regurgitation. AORTIC VALVE: Probably bicuspid aortic valve. Mildly calcified aortic valve. Mildly diminished mobility. No aortic stenosis .no aortic regurgitation. AORTIC ROOT: Normal diameter and appearance. PULMONIC VALVE: Normal thickness and mobility. No stenosis. No regurgitation. PERICARDIUM: No evidence of pericardial effusion. IVC: Not well visualized. PLEURA: CONCLUSION: Mild concentric left ventricular hypertrophy Low normal left ventricle systolic function with abnormal septal motion probably due to paced rhythm, ejection fraction 50% Evidence of left ventricular diastolic dysfunction Mildly biatrial dilatation Normal right ventricle size and systolic function Pacemaker leads within the right cardiac chambers Mild pulmonary hypertension, RVSP 37 mmHg Mild mitral annulus calcification Probably bicuspid aortic valve which appears to be sclerotic without evidence of significant stenosis or insufficiency Adult Echocardiography Procedure Report Left Ventricle LVEDD (3.7 - 5.6 cm): 3.43 cm LVESD (2.2 - 4.0 cm): 3.02 cm LVIVS thickness (0.6 - 1.2 cm): 1.26 cm LVPW thickness (0.5 - 1.0 cm): 1.23 cm e': 0.05 m/s E - e': 11.45 LVOT Max Gradient: 1.63 mm[Hg] LVOT Area (cm2): 0.64 m/s Peak Velocity (LVOT): 0.64 m/s Mean Velocity (LVOT): 0.39 m/s LVOT Diameter 2.23 cm Left Ventricular Ejection Fraction: 47.14 % Left Atrium LA Volume Index (2D A2C): 37.84 ml/m2 Left Atrium Systolic Dimension: 4.09 cm Mitral Valve MV E to A Ratio: 0.43 MV Max Gradient: MV Mean Gradient: Mitral Valve A-Wave Peak Velocity: 1.22 m/s Mitral Valve E-Wave Peak Velocity: 0.53 m/s Cardiovascular Orifice Area: Right Ventricle RV Internal Diastolic Dimension: Aorta AO Root Diam: 3.12 cm Ascending Ao Diam: Aortic Valve AoV Area (Peak Bernardo): 1.34 cm2, 1.57 cm2 AoV Area (VTI): 1.41 cm2, 2.06 cm2 Deceleration Bell: Pressure Half-Time: Peak Velocity(Antegrade Flow): 1.60 m/s, 1.86 m/s Peak Gradient(Antegrade Flow): 10.18 mm[Hg], 13.83 mm[Hg] Mean Velocity(Antegrade Flow): 1.04 m/s, 1.33 m/s Mean Gradient(Antegrade Flow): 5.07 mm[Hg], 7.98 mm[Hg] Velo (more content not included)... [facility] Radiology, Radiologi MD jason - 01/28/2025 [place] [address] Cardiology Report Signed Patient: ILA MOREJON MR#: [id number] : 1945 Acct:[id number] Age/Sex: 79 / M ADM Date: 01/26/25 Loc: CARD Attending Dr: Hao Cardona M.D. Ordering Physician: Hao Cardona M.D. Date of Service: 01/26/25 Procedure(s): CA echo doppler complete Accession Number(s): [id number] cc: Hao Cardona M.D.; Cruzito Mcgrath M.D. Patient Name: ILA MOREJON MR#: [id number] : 1945 Exam Date: 01/26/2025 Ordering Doctor: DR HAO CARDONA M.D. ECHOCARDIOGRAM REPORT PROCEDURE: CA ECHO DOPPLER COMPLETE INDICATIONS: Heart failure with reduced ejection fraction, pacemaker, cardiac stents, hypertension, diabetes COMPARISON: None. DESCRIPTION: COMPLETE ECHOCARDIOGRAM Real-time transthoracic echocardiography with 2D, M-mode, spectral and color flow Doppler performed. QUALITY: Technical quality was good. LEFT VENTRICLE: Normal chamber size. Mild concentric left ventricular hypertrophy. Low normal left ventricular systolic function with abnormal septal motion probably due to paced rhythm, ejection fraction estimated to be 50% LV EF: 50% DIASTOLIC: diastolic dysfunction. ATRIAL SEPTUM: Visually appears intact. LEFT ATRIUM: Mild dilatation. RIGHT ATRIUM: Mild dilatation. RIGHT VENTRICLE: Normal chamber size. Normal systolic function. Pacer wire present. TRICUSPID VALVE: Normal mobility and thickness. No stenosis with mild regurgitation. Doppler studies reveal mildly (35-45) elevated right sided pressures.RVSP 37 mmHg MITRAL VALVE: Mildly thickened with normal mobility No mitral valve stenosis. Mild mitral annular calcification. No mitral regurgitation. AORTIC VALVE: Probably bicuspid aortic valve. Mildly calcified aortic valve. Mildly diminished mobility. No aortic stenosis .no aortic regurgitation. AORTIC ROOT: Normal diameter and appearance. PULMONIC VALVE: Normal thickness and mobility. No stenosis. No regurgitation. PERICARDIUM: No evidence of pericardial effusion. IVC: Not well visualized. PLEURA: CONCLUSION: Mild concentric left ventricular hypertrophy Low normal left ventricle systolic function with abnormal septal motion probably due to paced rhythm, ejection fraction 50% Evidence of left ventricular diastolic dysfunction Mildly biatrial dilatation Normal right ventricle size and systolic function Pacemaker leads within the right cardiac chambers Mild pulmonary hypertension, RVSP 37 mmHg Mild mitral annulus calcification Probably bicuspid aortic valve which appears to be sclerotic without evidence of significant stenosis or insufficiency Adult Echocardiography Procedure Report Left Ventricle LVEDD (3.7 - 5.6 cm): 3.43 cm LVESD (2.2 - 4.0 cm): 3.02 cm LVIVS thickness (0.6 - 1.2 cm): 1.26 cm LVPW thickness (0.5 - 1.0 cm): 1.23 cm e': 0.05 m/s E - e': 11.45 LVOT Max Gradient: 1.63 mm[Hg] LVOT Area (cm2): 0.64 m/s Peak Velocity (LVOT): 0.64 m/s Mean Velocity (LVOT): 0.39 m/s LVOT Diameter 2.23 cm Left Ventricular Ejection Fraction: 47.14 % Left Atrium LA Volume Index (2D A2C): 37.84 ml/m2 Left Atrium Systolic Dimension: 4.09 cm Mitral Valve MV E to A Ratio: 0.43 MV Max Gradient: MV Mean Gradient: Mitral Valve A-Wave Peak Velocity: 1.22 m/s Mitral Valve E-Wave Peak Velocity: 0.53 m/s Cardiovascular Orifice Area: Right Ventricle RV Internal Diastolic Dimension: Aorta AO Root Diam: 3.12 cm Ascending Ao Diam: Aortic Valve AoV Area (Peak Bernardo): 1.34 cm2, 1.57 cm2 AoV Area (VTI): 1.41 cm2, 2.06 cm2 Deceleration Bell: Pressure Half-Time: Peak Velocity(Antegrade Flow): 1.60 m/s, 1.86 m/s Peak Gradient(Antegrade Flow): 10.18 mm[Hg], 13.83 mm[Hg] Mean Velocity(Antegrade Flow): 1.04 m/s, 1.33 m/s Mean Gradient(Antegrade Flow): 5.07 mm[Hg], 7.98 mm[Hg] Velocity Time Integral: 31.90 cm, 46.56 cm Tricuspid Valve Peak Velocity (Regurgitant Flow): 2.92 m/s Peak Velocity: Pulmonic Valve Mean Gradient: Mean Velocity: Peak Velocity: 0.76 m/s Peak Gradient: 2.31 mm[Hg] Right Atrium Right Atrium Systolic Pressure: 58.33 ml, 58.33 ml Dictated by: Chetan Tolentino MD on 01/28/2025 at 17:58 Approved by: Chetan Tolentino MD on 01/28/2025 at 18:10 Dictated By: Chetan Tolentino M.D. Signed By: 01/28/251811 DD/ 09 TD/TT: Subscription Crew Leader: [facility] Radiology Study observation (narrative) [facility] CA ECHO DOPPLER COMPLETEOrde red By: Radiologist Radiology on 01-28-2025 [facility] Work Phone: No Panel Informationon 01-06 [facility] Office Visiton 01-04-2025 Follow-up visit [id number] Trell Morejonfabio martinez U 1945 M Date Provider Department Center 01/04/2025 271-HAO CARDONA CARD [facility] Family History Family Status - Relation Status Age at Mother Father Level of Service:77984 NE OFFICE/OUTPATIENT ESTABLISHED MOD MDM 30 MIN Normal [facility] Orders Onlyon 12-15-2024 Orders Only [id number] Trell Morejonfabio juan U 1945 M Date Provider Department Center 12/15/2024 [id number] ULLOA [facility] CARD [facility] HeartVAS No family history on file Normal [facility] MLR HEMOGLOBIN A1Con 025 Glucose [Mass/Vol] 186 mg/dL [facility] HbA1c (Bld) [Mass fraction] 8.1 % High 4.5 - 6.2 % [facility] Comment on above: ADA RECOMMENDED LIMI T 4.0 - 6.0 ADA THERAPEUTIC TARGET < 7.0 ACTION SUGGESTED > 7.0 Interpretation and review of laboratory results Abnormal [facility] CBC W Auto Differential pane l (Bld)on 10-25-2024 Basophils (Bld) [#/Vol] 0.00 10*3/uL Normal <0.11 [facility] Comment on above: Order Comment: Speci men Type: BLOOD SPECIMENOrdering Facility: [facility] Address: [address] [place] [address] Performed By: #### 5 7021-8 ####[facility] LABCLIA [id number] [place] [id number] LABCLIA [id number] [place] [address] [place] Basophils/100 WBC (Bld) 0.0 % Normal [facility] Comment on above: Order Comment: Speci men Type: BLOOD SPECIMENOrdering Facility: [facility] Address: [address] [place] [address] Performed By: #### 5 7021-8 ####[facility] LABCLIA [id number] [address] LABCLIA [id number] [place] [address] [place] Differential cell count method Nom (Bld) Manual Normal [facility] Comment on above: Order Comment: Speci men Type: BLOOD SPECIMENOrdering Facility: [facility] Address: [address] [place] [address] Performed By: #### 5 7021-8 ####[facility] LABCLIA [id number] [address] LABCLIA [id number] [place] [address] [place] Eosinophils (Bld) [#/Vol] 0.00 10*3/uL Normal <0.46 [facility] Comment on above: Order Comment: Speci men Type: BLOOD SPECIMENOrdering Facility: [facility] Address: [address] [place] [address] Performed By: #### 5 7021-8 ####[facility] LABCLIA [id number] [address] LABCLIA [id number] [place] [address] [place] Eosinophils/100 WBC (Bld) 0.0 % Normal [facility] Comment on above: Order Comment: Speci men Type: BLOOD SPECIMENOrdering Facility: [facility] Address: [address] [place] [address] Performed By: #### 5 7021-8 ####[facility] LABCLIA [id number] [address] LABCLIA [id number] [place] [address] [place] Erythrocyte distribution width (RBC) [Ratio] 13.5 % Normal 11.5-15.0 [facility] Comment on above: Order Comment: Speci men Type: BLOOD SPECIMENOrdering Facility: [facility] Address: [address] [place] [address] Performed By: #### 5 7021-8 ####[facility] LABCLIA [id number] [address] LABCLIA [id number] [place] [address] [place] Hematocrit (Bld) [Volume fraction] 28.6 % Low 39.0-51.0 [facility] Comment on above: Order Comment: Speci men Type: BLOOD SPECIMENOrdering Facility: [facility] Address: [address] [place] [address] Performed By: #### 5 7021-8 ####[facility] LABCLIA [id number] [address] LABCLIA [id number] [place] [address] [place] Hemoglobin (Bld) [Mass/Vol] 9.6 g/dL Low 13.0-17.0 [facility] Comment on above: Order Comment: Speci men Type: BLOOD SPECIMENOrdering Facility: [facility] Address: [address] [place] [address] Performed By: #### 5 7021-8 ####[facility] LABCLIA [id number] [place] [address] LABCLIA [id number] [place] [address] [place] Lymphocytes (Bld) [#/Vol] 8.78 10*3/uL High 1.00-4.00 [facility] Comment on above: Order Comment: Speci men Type: BLOOD SPECIMENOrdering Facility: [facility] Address: [address] [place] [address] Performed By: #### 5 7021-8 ####[facility] LABCLIA [id number] [address] LABCLIA [id number] [place] [address] [place] Lymphocytes/100 WBC (Bld) 58.0 % Normal [facility] Comment on above: Order Comment: Speci men Type: BLOOD SPECIMENOrdering Facility: [facility] Address: [address] [place] [address] Performed By: #### 5 7021-8 ####[facility] LABCLIA [id number] [address] LABCLIA [id number] [place] [address] [place] MCH (RBC) [Entitic mass] 29.6 pg Normal 26.0-34.0 [facility] Comment on above: Order Comment: Speci men Type: BLOOD SPECIMENOrdering Facility: [facility] Address: [address] [place] [address] Performed By: #### 5 7021-8 ####[facility] LABCLIA [id number] [address] LABCLIA [id number] [place] [address] [place] MCHC (RBC) [Mass/Vol] 33.6 g/dL Normal 30.5-36.[address] [facility] Comment on above: Order Comment: Speci men Type: BLOOD SPECIMENOrdering Facility: [facility] Address: [address] [place] [address] Performed By: #### 5 7021-8 ####[facility] LABCLIA [id number] [address] LABCLIA [id number] [place] [address] [place] MCV (RBC) [Entitic vol] 88.3 fL Normal 80.0-100.0 [facility] Comment on above: Order Comment: Speci men Type: BLOOD SPECIMENOrdering Facility: [facility] Address: [address] [place] [address] Performed By: #### 5 7021-8 ####[facility] LABCLIA [id number] [address] LABCLIA [id number] [place] [address] [place] Monocytes (Bld) [#/Vol] 0.45 10*3/uL Normal <0.87 [facility] Comment on above: Order Comment: Speci men Type: BLOOD SPECIMENOrdering Facility: [facility] Address: [address] [place] [address] Performed By: #### 5 7021-8 ####[facility] LABCLIA [id number] [address] LABCLIA [id number] [place] [address] [place] Monocytes/100 WBC (Bld) 3.0 % Normal [facility] Comment on above: Order Comment: Speci men Type: BLOOD SPECIMENOrdering Facility: [facility] Address: [address] [place] [address] Performed By: #### 5 7021-8 ####[facility] LABCLIA [id number] [address] [facility] LABCLIA [id number] [address] [address] [place] Neutrophils (Bld) [#/Vol] 5.90 10*3/uL Normal 1.45-7.50 [facility] Comment on above: Order Comment: Speci men Type: BLOOD SPECIMENOrdering Facility: [facility] Address: [address] [place] [address] Performed By: #### 5 7021-8 ####[facility] LABCLIA [id number] [address] LABCLIA [id number] [place] [address] [place] Neutrophils/100 WBC (Bld) 39.0 % Normal [facility] Comment on above: Order Comment: Speci men Type: BLOOD SPECIMENOrdering Facility: [facility] Address: [address] [place] [address] Performed By: #### 5 7021-8 ####[facility] LABCLIA [id number] [address] LABCLIA [id number] [place] [address] [place] Nucleated RBC (Bld) [#/Vol] 10*3/uL Normal <0.01 [facility] Comment on above: Order Comment: Speci men Type: BLOOD SPECIMENOrdering Facility: [facility] Address: [address] [place] [address] Performed By: #### 5 7021-8 ####[facility] LABCLIA [id number] [address] LABCLIA [id number] [place] [address] [place] Nucleated RBC/100 WBC (Bld) [Ratio] 0.0 /100 WBC Normal [facility] Comment on above: Order Comment: Speci men Type: BLOOD SPECIMENOrdering Facility: [facility] Address: [address] [place] [address] Performed By: #### 5 7021-8 ####[facility] LABCLIA [id number] [place] [id number] LABCLIA [id number] [place] [id number] [place] Ovalocytes LM Ql (Bld) Few Normal [facility] Comment on above: Order Comment: Speci men Type: BLOOD SPECIMENOrdering Facility: [facility] Address: [address] [place] [address] Performed By: #### 5 7021-8 ####[facility] LABCLIA [id number] [address] LABCLIA [id number] [place] [address] [place] Platelet mean volume (Bld) [Entitic vol] 10.1 fL Normal 9.0-12.7 [facility] Comment on above: Order Comment: Speci men Type: BLOOD SPECIMENOrdering Facility: [facility] Address: [address] [place] [address] Performed By: #### 5 7021-8 ####[facility] LABCLIA [id number] [address] LABCLIA [id number] [place] [address] [place] Platelets (Bld) [#/Vol] 154 10*3/uL Normal 150-400 [facility] Comment on above: Order Comment: Speci men Type: BLOOD SPECIMENOrdering Facility: [facility] Address: [address] [place] [address] Performed By: #### 5 7021-8 ####[facility] LABCLIA [id number] [address] LABCLIA [id number] [address] [address] [place] Platelets Estimate (Bld) [#/Vol] Adequate Normal [facility] Comment on above: Order Comment: Speci men Type: BLOOD SPECIMENOrdering Facility: [facility] Address: [address] [place] [address] Performed By: #### 5 7021-8 ####[facility] LABCLIA [id number] [place] [id number] LABCLIA [id number] [address] [address] [place] RBC (Bld) [#/Vol] 3.24 10*6/uL Low 4.20-6.00 [facility] Comment on above: Order Comment: Speci men Type: BLOOD SPECIMENOrdering Facility: [facility] Address: [address] [place] [address] Performed By: #### 5 7021-8 ####[facility] LABCLIA [id number] [place] [id number] LABCLIA [id number] [place] [id number] [place] RED CELL MORPH Reviewed: see result s of individual morphologies Normal [facility] Comment on above: Order Comment: Speci men Type: BLOOD SPECIMENOrdering Facility: [facility] Address: [address] [place] [address] Performed By: #### 5 7021-8 ####[facility] LABCLIA [id number] [place] [id number] LABCLIA [id number] [address] [address] [place] WBC (Bld) [#/Vol] 15.14 10*3/uL High 3.70-11.00 [facility] Comment on above: Order Comment: Speci men Type: BLOOD SPECIMENOrdering Facility: [facility] Address: [address] [place] [address] Performed By: #### 5 7021-8 ####[facility] LABCLIA [id number] [place], [place] [address]CNVFUMNXOO[facility] LABCLIA [id number] [place] [id number] [place] [facility] COMP METAB 2000 PNL SERP Woody 10-25-2024 Albumin [Mass/Vol] 4.4 g/dL 3.9 - 4.9 g/dL [facility] ALP [Catalytic activity/Vol] 93 U/L 38 - 113 U/L [facility] ALT [Catalytic activity/Vol] 11 U/L 10 - 54 U/L [facility] Anion gap [Moles/Vol] 11 mmol/L 8 - 15 mmol/L [facility] Calcium [Mass/Vol] 9.6 mg/dL 8.5 - 10. 2 mg/dL [facility] CCF AST SERPL-CCNC 14 U/L 14 - 40 U/L [facility] BILIRUB SERPL-MCNC 0.4 mg/dL 0.2 - 1.3 mg/dL [facility]CF PROT SERPL-MCNC 6.6 g/dL 6.3 - 8. 0 g/dL [facility] Chloride [Moles/Vol] 99 mmol/L 98 - 10 7 mmol/L [facility] CO2 [Moles/Vol] 26 mmol/L 22 - 30 mmol/L [facility] Creatinine [Mass/Vol] 1.83 mg/dL High 0.73 - 1.22 mg/dL [facility] GFR/1.73 sq M.predicted CKD-EPI (S/P/Bld) [Vol rate/Area] 38 Low - PINF [facility] Comment on above: Estimated Glomerular Filtration Rate (eGFR) is calculated using the 2020 CKD-EPI creatinine equation. This equation utilizes serum creatinine, sex, and age as parameters. The creatinine assay has traceable calibration to isotope dilution-mass spectrometry. Refer to KDIGO guidelines for clinical interpretation. In patients with unstable renal function, e.g. those with acute kidney injury, the eGFR may not accurately reflect actual GFR. Glucose [Mass/Vol] 228 mg/dL High 74 - 99 mg/dL [facility] Comment on above: The [place] [employer] (ADA) provides guidance for cutoff values [...] Standards of Medical Care in Diabetes 2016, [place] [employer]. Diabetes Care. 2016.39(Suppl 1). Interpretation and review of laboratory results Abnormal [facility] Potassium [Moles/Vol] 4.8 mmol/L 3.7 - 5.1 mmol/L [facility] Sodium [Moles/Vol] 136 mmol/L 136 - 144 mmol/L [facility] Urea nitrogen [Mass/Vol] 40 mg/dL High 9 - 24 mg/dL [facility] Specimen Type: BLOOD SPECIMEN [facility] Address: [address] [place] [address] Original Ordering Provider: SHAGGY ARRIAZA [facility] CNOVSPon 10-25-2024 CNOVSP Visit (SP) Office (H EMA) ILA MOREJON ([id number]) 1945 M Date Time Provider Department 10/25/24 11:00 AM RAEGAN ARTEAGA During your visit today, we recorded the following information about you: Temperature Pulse Respiration Blood pressure 97.3 degrees 78/minute 16/minute 126/65 Weight 78.7 kg Raegan Arteaga APRN.CNP 10/25/2024 3:51 PM Signed NAME: Ila Morejon CLINIC NO.: [id number] DATE OF SERVICE: October 25, 2024 (Chandler) Some elements in this clinic note that are critical to medical decision making have been carefully reviewed and included from a prior clinic note dated: July 16, 2024 (Chandler) Referring Provider: Cruzito Mcgrath Additional Clinicians involved in Ila Morejon's care: DIAGNOSIS: lymphocytosis ASSESSMENT: 79 year old man with DM HTN, PVD presenting with lymphocytosis and diagnosed with CLL early June 2022. 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 He has new anemia, likely secondary to his recent diagnosis of GI bleed and gastritis, duodenitis found on EGD.Will do complete anemia work up today. He does not have any significant change in his WBC or exam findings to indicate this is CLL related. I will also offer him a transfusion of 1 unit of PRBCs because of his cardiac history and he is symptomatic. He will follow up in 1 week. CKD- mild and stable Gastritis/duodenitis--dayanna nue protonix per GI Afib now with pacemaker--on plavix and EC aspirin. Off eliquis since GI bleed DM2-advised patient his glucose level Is >300 and to follow up with PCP PLAN: Continue protonix, plavix, EC aspirin Stay off Eliquis Follow up with PCP for DM control RV in 6 months with labs one week prior. - HPI: CASE HISTORY: Reverse Chronological Order 04/04/2023 - Admitted to [facility] with NSTEMI Underwent placement of drug eluting [...] CBC 18.8>14.0/39.7<185 Abs. Lymph: 10.1 Updated Visit, October 25, 2024: Alexis returns today with his Sabrina, for a follow-up. Overall feeling well. Continues to have fatigue. denies fevers, chills, early satiety, weight loss, lymph nodes or pain or night sweats. Denies any chest pain or shortness of breath. Iron studies pending, will call with results and follow up accordingly. Hgb 9.6 today. Updated Visit, July 16, 2024: Ila returns with his today Sabrina. Still on Plavix and EC aspirin. No blood in stool or urine. Feeling very fatigued and sleeing a lot. Hgb today is up to 8.7. Currently undergoing PT for weakness in legs. He denies fevers, chills, early satiety, weight loss, lymph nodes or pain or night sweats. Denies any chest pain or shortness of breath. Updated Visit, July 09, 2024: Ila returns for 6 month follow up. Was hospitalized 06/09-06/13 for GI bleed and pacemaker placement. Had preadmission testing for pacemaker placement and found to have a heomoglobin of 7.8. He had been started on eliquis a month prior for afib and was also on aspirin. EGD done showed gastritis and duodenitis. He has stopped eliquis and changed to EC aspirin. He is still on plavix, however. He is also taking protonix. He was also having issues with swelling and is on bumex 1mg now which is helping.He reports that has stools have returned to a normal color and he has not noticed any bleeding. He denies fevers, chills, early satiety, weight loss, lymph nodes or pain or night sweats. He reports that he feels weak and dizzy is he stands up too fast. Denies any chest pain or shortness of breath. Updated Visit, January 16, 2024: Ila returns [...] Has been sleeping more, especially since the CA. Up (more content not included)... [facility] (HEM[facility]A) ILA MOREJON ([id number]) 1945 M Date Time Provider Department 10/25/24 MARLEEN DRAKE During your visit today, we recorded the following information about you: Marleen Drake RN 10/25/2024 3:53 PM Signed Raegan Arteaga APRN.Marleen Nunez, RICARDO Sellers, can we please keep a lookout for his iron studies in the next few days. Thanks so much!! Marleen Drake RN 10/26/2024 3:35 PM Addendum Raegan: Need for IV Iron? Any further recommendations? Does pt see nephrology to send recent renal function? RICARDO Winston Jaimee, APRN.VIDHYA 10/26/2024 3:30 PM Signed Marlo, patient does need a iron, his Hgb is low and TIBC is high. I placed and signed order. When you call him could you please ask who manages his CKD? Thanks so much! Marleen Drake, RICARDO 10/26/2024 3:55 PM Signed Pt aware and agreeable to plan of care. He will await call to schedule IV Iron, as ordered. He sees nephrology: someone, but doesn't remember the name. Called Dr Alcazar/[facility] office, pt has not been seen by their providers. Called [facility], he does not see that office either. Called pt PCP, Dr Mcgrath, spoke with Ita. Referral sent [address] Latasha Head, [phone]. She is unable to see if pt was ever seen by them. Called Dr Head office, Labs faxed to Dr Mcgrath for review and management. Dr Rinaldi had seen pt, as inpatient 04/29/24. Attempted to call for follow up, but never responded and has not been seen since. Requesting new referral to be sent with medical records/recent labs. aware and updated, will call for appt, and let staff know the new referral will be sent. JR: please sign pended referral Joi/Italo: Please send to Dr Rinaldi, Gladys Benjamin 10/27/2024 9:12 AM Signed Per love, patient has been scheduled for 11/04. Thanks! Shasha Bliss 10/27/2024 9:58 AM Signed Joi: Information ready for you. [facility]27[facility]24 10[facility]27 AM Signed Records faxed to Dr. Rinaldi. Shasha Pulido 11/01/2024 8:[address] Rinaldi office spoke with Sharmaine. She states she will look thru their EDUCATION PROGRAM COORDINATOR referrals and give our office a call back to let us know if they have received this one. Shasha Jane PssShasha 11/03/2024 10:[address] Rinaldi office spoke with Tish. She states their office has received this referral and will be calling patient soon to get scheduled. Shasha Jane Pss, Shasha 11/15/2024 2:07 PM Signed Called Nephrology office spoke with Sharmaine. Patient is scheduled to see Dr Hines on 01/12. Shasha Box Allergies As of Date: 10/25/2024 (No Known Allergies) Date Reviewed: 10/25/2024 Reviewed by: Raegan Arteaga APRN.AR[employer]URE AND [employer]OR WINDER - Fully Assessed Reason for Visit: iron lab results [Other] Primary Visit Diagnosis:Stage 3 chronic kidney disease, unspecified whether stage 3a or 3b CKD ([facility]) [N18.30] Order(s):CONSULT TO NEPHROLOGY [9072] Order #: [id number]: 1 FUTURE Prescriptions as of 11/15/2024 - resveratroL 250 mg cap Take 2 capsules by mouth once daily. - Magnesium 250 mg tab Take 1 tablet by mouth every morning. - glipiZIDE (GLUCOTROL) 10 mg tablet Take 10 mg by mouth once daily. - bumetanide (BUMEX) 1 mg tablet Take 1 mg by mouth. - therapeutic multivitamin-minerals (THERA-M PLUS) 9 mg iron-400 mcg tablet Take 1 tablet by mouth every morning. - pantoprazole DR (PROTONIX) 40 mg tablet Take 40 mg by mouth once daily. - losartan (COZAAR) 50 mg tablet Take 50 mg by mouth once daily. - primidone (MYSOLINE) 50 mg tablet Take 50 mg by mouth daily at bedtime. - potassium gluconate 595 mg (99 mg) TbER Take 595 mg by mouth. - metFORMIN (GLUCOPHAGE) 500 mg tablet Take 500 mg by mouth daily with breakfast. - rosuvastatin (CRESTOR) 20 mg tablet Take 20 mg by mouth every evening. - gabapentin (NEURONTIN) 100 mg capsule TAKE 1 CAPSULE BY MOUTH AT BEDTIME FOR 1 DAY, THEN TAKE 1 CAPSULE TWICE DAILY FOR 1 DAY, AND THEN TAKE 1 CAPSULE THREE TIMES DAILY - aspirin 81 mg chewable tablet Take 81 mg by mouth. - amLODIPine (NORVASC) 5 mg tablet Take 10 mg by mouth every morning. - cholecalciferol, vitamin D3, 10 mcg (400 unit) cap Take 2,000 Units by mouth once daily. - insulin glargine (LANTUS) 100 unit/mL injection Inject subcutaneously as directed. - Zinc 50 mg tab Take 50 mg by mouth once daily. - carvedilol (COREG) 6.25 mg tablet Take 3.125 mg by mouth two times a day with meals. - pravastatin (PRAVACHOL) 20 mg tablet Take 20 mg by mouth once daily. - clopidogrel (PLAVIX) 75 mg tablet Take 75 mg by mouth once daily. Problem List As Of Date 10/25/2024 Noted Resolved CLL (chronic lymphocytic leukemia) ([facility]) [C91.1*06/27/2022 Large granular lymphocytosis [D72.820] 06/27/2022 Stag (more content not included)... Normal [facility] Comprehensive metabolic 2000 panelon 10-25-2024 Albumin [Mass/Vol] 4.4 g/dL Normal 3.9-4.9 [facility] Comment on above: Order Comment: Speci men Type: BLOOD SPECIMENOrdering Facility: [facility] Address: [address] [place] [address] Performed By: #### 2 4323-8 ####[facility] LABCLIA [id number] [place] [address] ALP [Catalytic activity/Vol] 93 U/L Normal 38-113 [facility] Comment on above: Order Comment: Speci men Type: BLOOD SPECIMENOrdering Facility: [facility] Address: [address] [place] [address] Performed By: #### 2 4323-8 ####[facility] LABCLIA [id number] [place] [address] ALT [Catalytic activity/Vol] 11 U/L Normal 10-54 [facility] Comment on above: Order Comment: Speci men Type: BLOOD SPECIMENOrdering Facility: [facility] Address: [address] [place] [address] Performed By: #### 2 4323-8 ####[facility] LABCLIA [id number] [place] [address] Anion gap [Moles/Vol] 11 mmol/L Normal 8-[address] [facility] Comment on above: Order Comment: Speci men Type: BLOOD SPECIMENOrdering Facility: [facility] Address: [address] [place] [address] Performed By: #### 2 4323-8 ####[facility] LABCLIA [id number] [place] [address] AST [Catalytic activity/Vol] 14 U/L Normal 14-40 [facility] Comment on above: Order Comment: Speci men Type: BLOOD SPECIMENOrdering Facility: [facility] Address: [address] [place] [address] Performed By: #### 2 4323-8 ####[facility] LABCLIA [id number] [place] [address] Bilirubin [Mass/Vol] 0.4 mg/dL Normal 0.2-1.3 [facility] Comment on above: Order Comment: Speci men Type: BLOOD SPECIMENOrdering Facility: [facility] Address: [address] [place] [address] Performed By: #### 2 4323-8 ####[facility] LABCLIA [id number] [place] [address] Calcium [Mass/Vol] 9.6 mg/dL Normal 8.5-10.2 [facility] Comment on above: Order Comment: Speci men Type: BLOOD SPECIMENOrdering Facility: [facility] Address: [address] [place] [address] Performed By: #### 2 4323-8 ####[facility] LABCLIA [id number] [place] [address] Chloride [Moles/Vol] 99 mmol/L Normal 98-107 [facility] Comment on above: Order Comment: Speci men Type: BLOOD SPECIMENOrdering Facility: [facility] Address: [address] [place] [address] Performed By: #### 2 4323-8 ####[facility] LABCLIA [id number] [place] [address] CO2 [Moles/Vol] 26 mmol/L Normal 22-30 [facility] Comment on above: Order Comment: Speci men Type: BLOOD SPECIMENOrdering Facility: [facility] Address: [address] [place] [address] Performed By: #### 2 4323-8 ####[facility] LABCLIA [id number] [place] [address] Creatinine [Mass/Vol] 1.83 mg/dL High 0.73-1.[address] [facility] Comment on above: Order Comment: Michael feng Type: BLOOD SPECIMENOrdering Facility: [facility] Address: [address] [place] [address] Performed By: #### 2 4323-8 ####[facility] LABCLIA [id number] [place] [address] Creatinine and Glomerular filtration rate.predicted panel (S/P/Bld) 38 mL/min/1.73m??? Low >=60 [facility] Comment on above: Order Comment: Specdimas feng Type: BLOOD SPECIMENOrdering Facility: [facility] Address: [address] [place] [address] Result Comment: Silvana mated Glomerular Filtration Rate [...] reflect actual GFR. Performed By: #### 2 4323-8 ####[facility] LABCLIA [id number] [place] [address] Glucose [Mass/Vol] 228 mg/dL High 74-99 [facility] Comment on above: Order Comment: Michael ping Type: BLOOD SPECIMENOrdering Facility: [facility] Address: [address] [place] [address] Result Comment: The [place] Diabetes [employer] (ADA) provides guidance for cutoff [...] Standards of Medical Care in Diabetes 2016, [place] [employer]. Diabetes Care. 2016.39(Suppl 1). Performed By: #### 2 4323-8 ####[facility] LABCLIA [id number] [place] [address] Potassium [Moles/Vol] 4.8 mmol/L Normal 3.7-5.[address] [facility] Comment on above: Order Comment: Speci men Type: BLOOD SPECIMENOrdering Facility: [facility] Address: [address] [place] [address] Performed By: #### 2 4323-8 ####[facility] LABCLIA [id number] [place] [address] Protein [Mass/Vol] 6.6 g/dL Normal 6.3-8.0 [facility] Comment on above: Order Comment: Speci men Type: BLOOD SPECIMENOrdering Facility: [facility] Address: [address] [place] [address] Performed By: #### 2 4323-8 ####[facility] LABCLIA [id number] [place] [address] Sodium [Moles/Vol] 136 mmol/L Normal 136-144 [facility] Comment on above: Order Comment: Speci men Type: BLOOD SPECIMENOrdering Facility: [facility] Address: [address] [place] [address] Performed By: #### 2 4323-8 ####[facility] LABCLIA [id number] [place] [address] Urea nitrogen [Mass/Vol] 40 mg/dL High 9-24 [facility] Comment on above: Order Comment: Speci men Type: BLOOD SPECIMENOrdering Facility: [facility] Address: [address] [place] [address] Performed By: #### 2 4323-8 ####[facility] LABCLIA [id number] [place] [address] Ferritin [facility]24 Ferritin [Mass/Vol] 51.4 ng/mL Normal 30.3-565.7 [facility] Comment on above: Order Comment: Speci men Type: BLOOD SPECIMENOrdering Facility: [facility] Address: [address] [place] [address] Performed By: #### 2 276-4, 65984-9 ####[facility] LABIA [id number] [place] [address] [place] Iron and Iron binding capaci ty panelon 10-25-2024 Iron [Mass/Vol] 94 ug/dL Normal 41-186 [facility] Comment on above: Order Comment: Speci men Type: BLOOD SPECIMENOrdering Facility: [facility] Address: [address] [place] [address] Performed By: #### 2 276-4, 74327-1 ####[facility] LABNORT[facility]AST[facility] [id number] [address] STATES OF [facility] Iron binding capacity [Mass/Vol] 439 ug/dL High 232-386 [facility] Comment on above: Order Comment: Speci men Type: BLOOD SPECIMENOrdering Facility: [facility] Address: [address] [place] [address] Performed By: #### 2 276-4, 02626-5 ####[facility] [id number] [address] [place] Iron/TIBC [Molar ratio] 21.4 % Normal 15.0-57.0 [facility] Comment on above: Order Comment: Speci men Type: BLOOD SPECIMENOrdering Facility: [facility] Address: [address] [place] [address] Performed By: #### 2 276-4, 72009-1 ####[facility] LABIA [id number] [place] [id number] [place] CNPDiana 10-21-2024 CNPN Telephone (HEMASA) ILA MOREJON ([id number]) 1945 M Date Time Provider Department 10/21/24 RAEGAN ARTEAGA During your visit today, we recorded the following information about you: Izabella Gunter MA 10/21/2024 4:05 PM Signed Patient has an appt on 10/25/24. Would you like labs, if so place orders (labs in computer are for December). Izabella Gunter MA Allergies As of Date: 10/21/2024 (No Known Allergies) Date Reviewed: 07/28/2024 Reviewed by: Gladys Driscoll RN - Fully Assessed Reason for Visit: Lab Orders [9948] Primary Visit Diagnosis:CLL (chronic lymphocytic leukemia) (HCC) [C91.10] Other Visit Diagnosis:Other iron deficiency anemia [D50.8] Order(s):IRON AND TIBC [SQIRON] Order #: [id number] FUTURE COMPREHENSIVE METABOLIC PANEL [SQCMP] Order #: [id number] FUTURE COMPLETE BLOOD COUNT AND DIFFERENTIAL [SQCBCDIF] Order #: [id number] FUTURE FERRITIN [SQFERR] Order #: [id number] FUTURE Prescriptions as of 10/22/2024 - bumetanide (BUMEX) 1 mg tablet Take 1 mg by mouth. - therapeutic multivitamin-minerals (THERA-M PLUS) 9 mg iron-400 mcg tablet Take 1 tablet by mouth every morning. - pantoprazole DR (PROTONIX) 40 mg tablet Take 40 mg by mouth once daily. - losartan (COZAAR) 50 mg tablet Take 50 mg by mouth once daily. - primidone (MYSOLINE) 50 mg tablet Take 50 mg by mouth daily at bedtime. - potassium gluconate 595 mg (99 mg) TbER Take 595 mg by mouth. - metFORMIN (GLUCOPHAGE) 500 mg tablet Take 500 mg by mouth daily with breakfast. - rosuvastatin (CRESTOR) 20 mg tablet Take 20 mg by mouth every evening. - gabapentin (NEURONTIN) 100 mg capsule TAKE 1 CAPSULE BY MOUTH AT BEDTIME FOR 1 DAY, THEN TAKE 1 CAPSULE TWICE DAILY FOR 1 DAY, AND THEN TAKE 1 CAPSULE THREE TIMES DAILY - aspirin 81 mg chewable tablet Take 81 mg by mouth. - amLODIPine (NORVASC) 5 mg tablet Take 10 mg by mouth every morning. - cholecalciferol, vitamin D3, 10 mcg (400 unit) cap Take 2,000 Units by mouth once daily. - insulin glargine (LANTUS) 100 unit/mL injection Inject subcutaneously as directed. - Zinc 50 mg tab Take 50 mg by mouth once daily. - carvedilol (COREG) 6.25 mg tablet Take 3.125 mg by mouth two times a day with meals. - pravastatin (PRAVACHOL) 20 mg tablet Take 20 mg by mouth once daily. - clopidogrel (PLAVIX) 75 mg tablet Take 75 mg by mouth once daily. 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] 06/27/2022 Stage 3 chronic kidney disease (HCC) [N18.30] 01/04/2023 Type 2 diabetes mellitus with diabetic peripher*01/04/2023 Iron deficiency anemia, unspecified [D50.9] 07/23/2024 Encounter Status:Closed by IZABELLA GUNTER on 10/22/24 [facility] Extremitieson 09-16-19 Polyneuropathy, severe NO [facility] Healthcare NVC 9-10 Nerveson 09-16-2024 Polyneuropathy, severe NO [facility] Refillon 08-19-2024 Refill [id number] Lencho Morejon U 1945 M Date Provider Department Center 08/19/[id number] GRISSOM [facility] C[facility] [place] HeartVAS No family history on file Reason for Visit and Comments: Med Refill [063767] Normal [facility] Blood Urea Nitrogenon 2024 Urea nitrogen [Mass/Vol] 25 mg/dL Normal 7- [facility] Comment on above: Performed By: #### B CRISTÓBAL BATISTA #### [facility] [address] [place] [address] [place] Creatinineon 08-16-2024 Creatinine [Mass/Vol] 1.70 mg/dL High 0.70-1.30 [facility] Comment on above: Performed By: #### B UN, CREAT #### [facility] [address] Creatinine Clr Calc Pharmacy 35.21 Normal [facility] Comment on above: Result Comment: PERF ORMED BY: [place] [address] PATHOLOGIST [employer] PATRIA DURHAM M.D. Performed By: #### B UN, CREAT #### [address] Estimated GFR 41.007 mL/Min Normal [facility] Comment on above: Performed By: #### B UN, CREAT #### [address] Creatinine [Mass/volume] in Serum or PlasmaOrdered By: Luiz Glass on 08-16-2024 Creatinine [Mass/Vol] Creatinine [Mass/v olume] in Serum or Plasma High 0.70-1.30 [facility] No Panel InformationOrdered By: Luiz Glass on 08-16-2024 Estimated GFR (CKD-EPI) 41.007 mL/Min [facility] Creatinine Clearance (Chem 35.21 [facility] Urea nitrogen [Mass/volume] in Serum or PlasmaOrdered By: Luiz Glass on 08-16-2024 Urea nitrogen [Mass/Vol] Urea nitrogen [Mass/volume] in Serum or Plasma 7 [facility] CNPNon 07-23-2024 CNPN Telephone (Introhive) ILA MOREJON ([id number]) 1945 M Date Time Provider Department 1/3/25 RAEGAN ARTEAGA During your visit today, we recorded the following information about you: Marleen Drake, RICARDO 07/23/2024 9:07 AM Signed Raegan Arteaga APRN.ARMATURE AND [employer]OTOR WINDER Marleen Drake, RICARDO Hi Please call patient and let him know that he is iron def, and we will give him Venofer x 5. Thanks. Venofer orders placed. Please have him follow-up in 3 months for OV and labs. Thank you. Marleen Drake, RICARDO 07/23/2024 9:07 AM Signed Pt aware and agreeable to IV iron, as ordered. Pt denies any questions, needs or concerns at this time. He will await call to schedule Love/Sharee: please call to schedule per JR message below RICARDO Winston Brittany 07/23/2024 10:30 AM Addendum Patient is able to receive the 1 time dose of Monoferric with his insurance. Okay to order Monoferric instead? Raegan Umanzor APRN.VIDHYA 07/23/2024 10:59 AM Signed Yes, that is fine. I will change the order. Thank you. Gladys Benjamin 07/23/2024 1:19 PM Signed Patient scheduled for Monoferric on 07/28 and then lab and OV in October with [place]. Patient has been notified. Gladys Benjamin Allergies As of Date: 07/23/2024 (No Known Allergies) Date Reviewed: 07/16/2024 Reviewed by: Raegan Arteaga APRN.ARMATURE AND [employer]OTOR WINDER - Fully Assessed Reason for Visit: Anemia [6] IV iron orders/scheduling [Other] Primary Visit Diagnosis:Other iron deficiency anemia [D50.8] Prescriptions as of 07/23/2024 - bumetanide (BUMEX) 1 mg tablet Take 1 mg by mouth. - therapeutic multivitamin-minerals (THERA-M PLUS) 9 mg iron-400 mcg tablet Take 1 tablet by mouth every morning. - pantoprazole DR (PROTONIX) 40 mg tablet Take 40 mg by mouth once daily. - losartan (COZAAR) 50 mg tablet Take 50 mg by mouth once daily. - primidone (MYSOLINE) 50 mg tablet Take 50 mg by mouth daily at bedtime. - potassium gluconate 595 mg (99 mg) TbER Take 595 mg by mouth. - metFORMIN (GLUCOPHAGE) 500 mg tablet Take 500 mg by mouth daily with breakfast. - rosuvastatin (CRESTOR) 20 mg tablet Take 20 mg by mouth every evening. - gabapentin (NEURONTIN) 100 mg capsule TAKE 1 CAPSULE BY MOUTH AT BEDTIME FOR 1 DAY, THEN TAKE 1 CAPSULE TWICE DAILY FOR 1 DAY, AND THEN TAKE 1 CAPSULE THREE TIMES DAILY - aspirin 81 mg chewable tablet Take 81 mg by mouth. - amLODIPine (NORVASC) 5 mg tablet Take 10 mg by mouth every morning. - cholecalciferol, vitamin D3, 10 mcg (400 unit) cap Take 2,000 Units by mouth once daily. - insulin glargine (LANTUS) 100 unit/mL injection Inject subcutaneously as directed. - Zinc 50 mg tab Take 50 mg by mouth once daily. - carvedilol (COREG) 6.25 mg tablet Take 3.125 mg by mouth two times a day with meals. - pravastatin (PRAVACHOL) 20 mg tablet Take 20 mg by mouth once daily. - clopidogrel (PLAVIX) 75 mg tablet Take 75 mg by mouth once daily. 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 However if this makes you feel lightheaded or dizzy, decrease to 1/2 tablet which is your old dose and call me. Eat foods high in protein, BUT STAY VERY LOW ON SALT Quick & easy suggestions: Eggs (hard boiled, egg salad, cooked), peanut butter, indonesian yogurt, cream cheese, ecuadorean cheese. Lunchmeats low sodium ([employer]) Also consider high protein supplement drinks: --Boost, Ensure, Glucerna --Imboden powder: complete nutrition (previously Imboden instant breakfast ). Can mix with soy or almond milk as well as cow milk. --Fair Life shakes: Nutrition Plan and Core Power have low sugar and salt but excellent protein BUT is cow milk base. Sold at [employer], [employer] and other stores. Kind regards, Sergo Vazquez, PAC [place] [facility] Contact me via Circular Shear Operator Norma Diaz [phone] [facility] Follow-Upon 2024 Follow-Up [id number] Lencho Morejon juan U 1945 M Date Provider Department Center 2024 [id number] VAZQUEZ [facility] C[facility] [place] HeartVAS No family history on file Level of Service:81915 NE OFFICE/OUTPATIENT ESTABLISHED MOD MDM 30 MIN [facility] CBC W AUTO DIFF BLDon Basophils/100 WBC (Bld) 1 % [facility] BASOPHILS # BLD AUTO 0.14 High [facility] DIFFERENTIAL METHOD BLD Manual [facility] EOSINOPHIL # BLD AUTO 0.55 High [facility] LYMPHOCYTES # BLD AUTO 8.02 High [facility] MONOCYTES # BLD AUTO 0.55 [facility] NEUTROPHILS # BLD AUTO 4.56 [facility] NRBC # BLD AUTO <0.01 [facility] NRBC/100 WBC BLD-RTO 0 /100 WBC [facility] OVALOCYTES BLD QL SMEAR Few [facility] PLATELET # BLD AUTO 128 Low [facility] PMV BLD AUTO 10 fL 9.0 - 12.7 fL [facility] POLYCHROMASIA BLD QL SMEAR Slight [facility] RBC FRAGMENTS Few Abnormal None Seen [facility] RED CELL MORPH Reviewed: see result s of individual morphologies [facility] WBC # BLD AUTO 13.82 High [facility] Eosinophils/100 WBC (Bld) 4 % [facility] Erythrocyte distribution width (RBC) [Ratio] 13.5 % 11.5 - 15.0 % [facility] Hematocrit (Bld) [Volume fraction] 25.8 % Low 39.0 - 51.0 % [facility] Hemoglobin (Bld) [Mass/Vol] 8.7 g/dL Low 13.0 - 17.0 g/dL [facility] Interpretation and review of laboratory results Abnormal [facility] Lymphocytes/100 WBC (Bld) 58 % [facility] MCH (RBC) [Entitic mass] 29.2 pg 26.0 - 34.0 pg [facility] MCHC (RBC) [Mass/Vol] 33.7 g/dL 30.5 - 36.0 g/dL [facility] MCV (RBC) [Entitic vol] 86.6 fL 80.0 - 100.0 fL [facility] Monocytes/100 WBC (Bld) 4 % [facility] Neutrophils/100 WBC (Bld) 33 % [facility] PLATELET # BLD EST Decreased [facility] RBC (Bld) [#/Vol] 2.98 10*6/uL Low 4.20 - 6.00 m/uL [facility] Specimen Type: BLOOD SPECIMEN [facility] Address: [address] [place] [address] Original Ordering Provider: RAEGAN SINGH [facility] CBC W Auto Differential pane l (Bld)on 07-16-2024 Basophils (Bld) [#/Vol] 0.14 10*3/uL High <0.11 [facility] Comment on above: Order Comment: Speci men Type: BLOOD SPECIMENOrdering Facility: [facility] Address: [address] [place] [address] Performed By: #### 5 7021-8 ####[facility] LABCLIA [id number] [place], [place] [address] LABCLIA [id number] [place] [address] [place] Basophils/100 WBC (Bld) 1.0 % Normal [facility] Comment on above: Order Comment: Speci men Type: BLOOD SPECIMENOrdering Facility: [facility] Address: [address] [place] [address] Performed By: #### 5 7021-8 ####[facility] LABCLIA [id number] [place] [id number] LABCLIA [id number] [place] [address] [place] Differential cell count method Nom (Bld) Manual Normal [facility] Comment on above: Order Comment: Speci men Type: BLOOD SPECIMENOrdering Facility: [facility] Address: [address] [place] [address] Performed By: #### 5 7021-8 ####[facility] LABCLIA [id number] [address] LABCLIA [id number] [place] [address] [place] Eosinophils (Bld) [#/Vol] 0.55 10*3/uL High <0.46 [facility] Comment on above: Order Comment: Speci men Type: BLOOD SPECIMENOrdering Facility: [facility] Address: [address] [place] [address] Performed By: #### 5 7021-8 ####[facility] LABCLIA [id number] [address] LABCLIA [id number] [place] [address] [place] Eosinophils/100 WBC (Bld) 4.0 % Normal [facility] Comment on above: Order Comment: Speci men Type: BLOOD SPECIMENOrdering Facility: [facility] Address: [address] [place] [address] Performed By: #### 5 7021-8 ####[facility] LABCLIA [id number] [address] LABCLIA [id number] [place] [address] [place] Erythrocyte distribution width (RBC) [Ratio] 13.5 % Normal 11.5-15.0 [facility] Comment on above: Order Comment: Speci men Type: BLOOD SPECIMENOrdering Facility: [facility] Address: [address] [place] [address] Performed By: #### 5 7021-8 ####[facility] LABCLIA [id number] [address] LABCLIA [id number] [place] [address] [place] Hematocrit (Bld) [Volume fraction] 25.8 % Low 39.0-51.0 [facility] Comment on above: Order Comment: Speci men Type: BLOOD SPECIMENOrdering Facility: [facility] Address: [address] [place] [address] Performed By: #### 5 7021-8 ####[facility] LABCLIA [id number] [address] LABCLIA [id number] [place] [address] [place] Hemoglobin (Bld) [Mass/Vol] 8.7 g/dL Low 13.0-17.0 [facility] Comment on above: Order Comment: Speci men Type: BLOOD SPECIMENOrdering Facility: [facility] Address: [address] [place] [address] Performed By: #### 5 7021-8 ####[facility] LABCLIA [id number] [address] LABCLIA [id number] [place] [address] [place] Lymphocytes (Bld) [#/Vol] 8.02 10*3/uL High 1.00-4.00 [facility] Comment on above: Order Comment: Speci men Type: BLOOD SPECIMENOrdering Facility: [facility] Address: [address] [place] [address] Performed By: #### 5 7021-8 ####[facility] LABCLIA [id number] [place] [address] LABCLIA [id number] [place] [address] [place] Lymphocytes/100 WBC (Bld) 58.0 % Normal [facility] Comment on above: Order Comment: Speci men Type: BLOOD SPECIMENOrdering Facility: [facility] Address: [address] [place] [address] Performed By: #### 5 7021-8 ####[facility] LABCLIA [id number] [address] LABCLIA [id number] [place] [address] [place] MCH (RBC) [Entitic mass] 29.2 pg Normal 26.0-34.0 [facility] Comment on above: Order Comment: Speci men Type: BLOOD SPECIMENOrdering Facility: [facility] Address: [address] [place] [address] Performed By: #### 5 7021-8 ####[facility] LABCLIA [id number] [address] LABCLIA [id number] [place] [address] [place] MCHC (RBC) [Mass/Vol] 33.7 g/dL Normal 30.5-36.[address] [facility] Comment on above: Order Comment: Speci men Type: BLOOD SPECIMENOrdering Facility: [facility] Address: [address] [place] [address] Performed By: #### 5 7021-8 ####[facility] LABCLIA [id number] [address] LABCLIA [id number] [place] [address] [place] MCV (RBC) [Entitic vol] 86.6 fL Normal 80.0-100.0 [facility] Comment on above: Order Comment: Speci men Type: BLOOD SPECIMENOrdering Facility: [facility] Address: [address] [place] [address] Performed By: #### 5 7021-8 ####[facility] LABCLIA [id number] [address] LABCLIA [id number] [place] [address] [place] Monocytes (Bld) [#/Vol] 0.55 10*3/uL Normal <0.87 [facility] Comment on above: Order Comment: Speci men Type: BLOOD SPECIMENOrdering Facility: [facility] Address: [address] [place] [address] Performed By: #### 5 7021-8 ####[facility] LABCLIA [id number] [address] LABCLIA [id number] [place] [address] [place] Monocytes/100 WBC (Bld) 4.0 % Normal [facility] Comment on above: Order Comment: Speci men Type: BLOOD SPECIMENOrdering Facility: [facility] Address: [address] [place] [address] Performed By: #### 5 7021-8 ####[facility] LABCLIA [id number] [address] LABCLIA [id number] [place] [address] [place] Neutrophils (Bld) [#/Vol] 4.56 10*3/uL Normal 1.45-7.50 [facility] Comment on above: Order Comment: Speci men Type: BLOOD SPECIMENOrdering Facility: [facility] Address: [address] [place] [address] Performed By: #### 5 7021-8 ####[facility] LABCLIA [id number] [address] LABCLIA [id number] [place] [address] [place] Neutrophils/100 WBC (Bld) 33.0 % Normal [facility] Comment on above: Order Comment: Speci men Type: BLOOD SPECIMENOrdering Facility: [facility] Address: [address] [place] [address] Performed By: #### 5 7021-8 ####[facility] LABCLIA [id number] [address] LABCLIA [id number] [place] [address] [place] Nucleated RBC (Bld) [#/Vol] 10*3/uL Normal <0.01 [facility] Comment on above: Order Comment: Speci men Type: BLOOD SPECIMENOrdering Facility: [facility] Address: [address] [place] [address] Performed By: #### 5 7021-8 ####[facility] LABCLIA [id number] [address] LABCLIA [id number] [place] [address] [place] Nucleated RBC/100 WBC (Bld) [Ratio] 0.0 /100 WBC Normal [facility] Comment on above: Order Comment: Speci men Type: BLOOD SPECIMENOrdering Facility: [facility] Address: [address] [place] [address] Performed By: #### 5 7021-8 ####[facility] LABCLIA [id number] [address] LABCLIA [id number] [place] [address] [place] Ovalocytes LM Ql (Bld) Few Normal [facility] Comment on above: Order Comment: Speci men Type: BLOOD SPECIMENOrdering Facility: [facility] Address: [address] [place] [address] Performed By: #### 5 7021-8 ####[facility] LABCLIA [id number] [place] [id number] LABCLIA [id number] [place] [address] [place] Platelet mean volume (Bld) [Entitic vol] 10.0 fL Normal 9.0-12.7 [facility] Comment on above: Order Comment: Speci men Type: BLOOD SPECIMENOrdering Facility: [facility] Address: [address] [place] [address] Performed By: #### 5 7021-8 ####[facility] LABCLIA [id number] [address] LABCLIA [id number] [place] [address] [place] Platelets (Bld) [#/Vol] 128 10*3/uL Low 150-400 [facility] Comment on above: Order Comment: Speci men Type: BLOOD SPECIMENOrdering Facility: [facility] Address: [address] [address] Performed By: #### 5 7021-8 ####[facility] LABCLIA [id number] [place] [address] LABCLIA [id number] [place] [address] [place] Platelets Estimate (Bld) [#/Vol] Decreased Normal [facility] Comment on above: Order Comment: Speci men Type: BLOOD SPECIMENOrdering Facility: [facility] Address: [address] [place] [address] Performed By: #### 5 7021-8 ####[facility] LABCLIA [id number] [address] LABCLIA [id number] [id number] [address] [place] Polychromasia LM Ql (Bld) Slight Normal [facility] Comment on above: Order Comment: Speci men Type: BLOOD SPECIMENOrdering Facility: [facility] Address: [address] [place] [address] Performed By: #### 5 7021-8 ####[facility] LABCLIA [id number] [address] LABCLIA [id number] [place] [address] [place] RBC (Bld) [#/Vol] 2.98 10*6/uL Low 4.20-6.00 [facility] Comment on above: Order Comment: Speci men Type: BLOOD SPECIMENOrdering Facility: [facility] Address: [address] [place] [address] Performed By: #### 5 7021-8 ####[facility] LABCLIA [id number] [address] LABCLIA [id number] [place] [address] [place] RBC FRAGMENTS Few Abnormal None Seen [facility] Comment on above: Order Comment: Speci men Type: BLOOD SPECIMENOrdering Facility: [facility] Address: [address] [place] [address] Performed By: #### 5 7021-8 ####[facility] LABCLIA [id number] [address] LABCLIA [id number] [place] [address] [place] RED CELL MORPH Reviewed: see result s of individual morphologies Normal [facility] Comment on above: Order Comment: Speci men Type: BLOOD SPECIMENOrdering Facility: [facility] Address: [address] [place] [address] Performed By: #### 5 7021-8 ####[facility] LABCLIA [id number] [place], [place] [address]WNFBDZFIDOHIOHE[facility] LABCLIA [id number] [place] [address] [place] WBC (Bld) [#/Vol] 13.82 10*3/uL High 3.70-11.00 [facility] Comment on above: Order Comment: Speci men Type: BLOOD SPECIMENOrdering Facility: [facility] Address: [address] [place] [address] Performed By: #### 5 7021-8 ####[facility] LABCLIA [id number] [place], [place] [address]XCTKYCZCGOH[facility] LABCLIA [id number] [place] [address] [place] CNOVSPon 07-16-2024 CNOVSP Visit (SP) Office (H EMASA) ILA MOREJON ([id number]) 1945 M Date Time Provider Department 07/16/24 2:30 PM RAEGAN ARTEAGA During your visit today, we recorded the following information about you: Temperature Pulse Respiration Blood pressure 97 degrees 67/minute 18/minute 138/54 Weight 74.4 kg Raegan Arteaga APRN.[employer] 07/16/2024 3:32 PM Signed NAME: Ila Morejon CLINIC NO.: [id number] DATE OF SERVICE: July 16, 2024 (Chandler) Some elements in this clinic note that are critical to medical decision making have been carefully reviewed and included from a prior clinic note dated: July 09, 2024 (Nabil) Referring Provider: Cruzito Mcgrath Additional Clinicians involved in Ila Morejon's care: DIAGNOSIS: lymphocytosis ASSESSMENT: 78 year old man with DM HTN, PVD presenting with lymphocytosis and diagnosed with CLL early June 2022. 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 He has new anemia, likely secondary to his recent diagnosis of GI bleed and gastritis, duodenitis found on EGD.Will do complete anemia work up today. He does not have any significant change in his WBC or exam findings to indicate this is CLL related. I will also offer him a transfusion of 1 unit of PRBCs because of his cardiac history and he is symptomatic. He will follow up in 1 week. CKD- mild and stable Gastritis/duodenitis--dayanna nue protonix per GI Afib now with pacemaker--on plavix and EC aspirin. Off eliquis since GI bleed DM2-advised patient his glucose level Is >300 and to follow up with PCP PLAN: Continue protonix, plavix, EC aspirin Stay off Eliquis Follow up with PCP for DM control RV in 1 week for follow up - HPI: CASE HISTORY: Reverse Chronological Order 04/04/2023 - Admitted to [facility] with NSTEMI Underwent placement of drug eluting [...] Abs. Lymph: 10.1 Updated Visit, July 16, 2024: Ila returns with his today Sabrina. Still on Plavix and EC aspirin. No blood in stool or urine. Feeling very fatigued and sleeing a lot. Hgb today is up to 8.7. Currently undergoing PT for weakness in legs. He denies fevers, chills, early satiety, weight loss, lymph nodes or pain or night sweats. Denies any chest pain or shortness of breath. Updated Visit, July 09, 2024: Ila returns for 6 month follow up. Was hospitalized 06/09-06/13 for GI bleed and pacemaker placement. Had preadmission testing for pacemaker placement and found to have a heomoglobin of 7.8. He had been started on eliquis a month prior for afib and was also on aspirin. EGD done showed gastritis and duodenitis. He has stopped eliquis and changed to EC aspirin. He is still on plavix, however. He is also taking protonix. He was also having issues with swelling and is on bumex 1mg now which is helping.He reports that has stools have returned to a normal color and he has not noticed any bleeding. He denies fevers, chills, early satiety, weight loss, lymph nodes or pain or night sweats. He reports that he feels weak and dizzy is he stands up too fast. Denies any chest pain or shortness of breath. Updated Visit, January 16, 2024: Ila returns [...] Has been sleeping more, especially since the CA. Updated Visit, December 27, 2022: 13 year [...] requested and spoke to him and his (more content not included)... Normal [facility] ALL HGB HCTon 07-12-2024 Hematocrit (Bld) [Volume fraction] 24.4 % Low 42.0 - 54.0 % [facility] Hemoglobin (Bld) [Mass/Vol] 7.9 g/dL Low 14.0 - 18.0 g/dL [facility] Interpretation and review of laboratory results Abnormal [facility] B2 Microglob SerPl-mCncon Pyod-7-Czctliadhrapa [Mass/Vol] 5.2 ug/mL High <3.1 [facility] Comment on above: Order Comment: Speci men Type: BLOOD SPECIMENOrdering Facility: [facility] Address: [address] [place] [address] Result Comment: Beta -2 Microglobulin test is performed using the [employer] immunoturbidimetric method. Results obtained with different methods or kits cannot be used interchangeably. Performed By: #### 1 952-1, 2132-9, 2284-8 ####[facility] LABCLIA [id number] [place] [address] [place] CBC W Auto Differential pane l (Bld)on 07-09-2024 Basophils (Bld) [#/Vol] 0.00 10*3/uL Normal <0.11 [facility] Comment on above: Order Comment: Speci men Type: BLOOD SPECIMENOrdering Facility: [facility] Address: [address] [place] [address] Performed By: #### 5 7021-8 ####[facility] LABCLIA [id number] [place], [place] [address]PKJUIOZKSOHIO[facility] LABCLIA [id number] [place] [address] [place]#### 90123-9 ####[facility] LABCLIA [id number] [place] [address] Basophils/100 WBC (Bld) 0.0 % Normal [facility] Comment on above: Order Comment: Speci men Type: BLOOD SPECIMENOrdering Facility: [facility] Address: [address] [place] [address] Performed By: #### 5 7021-8 ####[facility] LABCLIA [id number] [place] [address] LABCLIA [id number] [place] [address] [place]#### 47184-6 ####[facility] LABCLIA [id number] [place] [id number] Dacrocytes LM Ql (Bld) Few Normal [facility] Comment on above: Order Comment: Speci men Type: BLOOD SPECIMENOrdering Facility: [facility] Address: [address] [place] [address] Performed By: #### 5 7021-8 ####[facility] LABCLIA [id number] [place] [address] LABCLIA [id number] [place] [address] [place]#### 17761-1 ####[facility] LABIA [id number] [place] [id number] Differential cell count method Nom (Bld) Manual Normal [facility] Comment on above: Order Comment: Speci men Type: BLOOD SPECIMENOrdering Facility: [facility] Address: [address] [place] [address] Performed By: #### 5 7021-8 ####[facility] LABCLIA [id number] [place] [address] LABCLIA [id number] [place] [address] [place]#### 22575-6 ####[facility] LABIA [id number] [place] [id number] Eosinophils (Bld) [#/Vol] 0.35 10*3/uL Normal <0.46 [facility] Comment on above: Order Comment: Speci men Type: BLOOD SPECIMENOrdering Facility: [facility] Address: [address] [place] [address] Performed By: #### 5 7021-8 ####[facility] LABCLIA [id number] [place] [address] LABCLIA [id number] [place] [address] [place]#### 75452-2 ####[facility] LABCLIA [id number] [place] [id number] Eosinophils/100 WBC (Bld) 2.6 % Normal [facility] Comment on above: Order Comment: Speci men Type: BLOOD SPECIMENOrdering Facility: [facility] Address: [address] [place] [address] Performed By: #### 5 7021-8 ####[facility] LABCLIA [id number] [place] [address] LABCLIA [id number] [place] [address] [place]#### 95703-4 ####[facility] LABCLIA [id number] [place] [address] Erythrocyte distribution width (RBC) [Ratio] 12.8 % Normal 11.5-15.0 [facility] Comment on above: Order Comment: Speci men Type: BLOOD SPECIMENOrdering Facility: [facility] Address: [address] [place] [address] Performed By: #### 5 7021-8 ####[facility] LABCLIA [id number] [place] [address] LABCLIA [id number] [place] [address] [place]#### 99781-2 ####[facility] LABCLIA [id number] [place] [address] Hematocrit (Bld) [Volume fraction] 22.0 % Low 39.0-51.0 [facility] Comment on above: Order Comment: Speci men Type: BLOOD SPECIMENOrdering Facility: [facility] Address: [address] [place] [address] Performed By: #### 5 7021-8 ####[facility] LABCLIA [id number] [place], [place] [address]XDOPBDQCEOHIOHEALTH RIVERSIDE [facility] LABCLIA [id number] [place] [address] [place]#### 67042-6 ####[facility] LABCLIA [id number] [place] [address] Hemoglobin (Bld) [Mass/Vol] 7.4 g/dL Low 13.0-17.0 [facility] Comment on above: Order Comment: Speci men Type: BLOOD SPECIMENOrdering Facility: [facility] Address: [address] [place] [address] Performed By: #### 5 7021-8 ####[facility] LABCLIA [id number] [place] [address] LABCLIA [id number] [place] [address] [place]#### 39987-5 ####[facility] LABCLIA [id number] [place] [address] Lymphocytes (Bld) [#/Vol] 8.95 10*3/uL High 1.00-4.00 [facility] Comment on above: Order Comment: Speci men Type: BLOOD SPECIMENOrdering Facility: [facility] Address: [address] [place] [address] Performed By: #### 5 7021-8 ####[facility] LABCLIA [id number] [place], [place] [address]DOXNDRIRHOHIOHEALTH [facility]IDE [facility] LABCLIA [id number] [place] [address] [place]#### 42590-2 ####[facility] LABCLIA [id number] [place] [address] Lymphocytes/100 WBC (Bld) 67.0 % Normal [facility] Comment on above: Order Comment: Speci men Type: BLOOD SPECIMENOrdering Facility: [facility] Address: [address] [place] [address] Performed By: #### 5 7021-8 ####[facility] LABIA [id number] [place] [address] LABCLIA [id number] [place] [address] [place]#### 33434-2 ####RUFINAARFRANCISCO [facility] LABCLIA [id number] [place] [address] MCH (RBC) [Entitic mass] 29.1 pg Normal 26.0-34.0 [facility] Comment on above: Order Comment: Speci men Type: BLOOD SPECIMENOrdering Facility: [facility] Address: [address] [place] [address] Performed By: #### 5 7021-8 ####[facility] LABCLIA [id number] [place] [address] LABCLIA [id number] [place] [address] [place]#### 48511-8 ####[facility] LABCLIA [id number] [place] [address] MCHC (RBC) [Mass/Vol] 33.6 g/dL Normal 30.5-36.[address] [facility] Comment on above: Order Comment: Speci men Type: BLOOD SPECIMENOrdering Facility: [facility] Address: [address] [place] [address] Performed By: #### 5 7021-8 ####[facility] LABCLIA [id number] [place] [address] LABCLIA [id number] [place] [address] [place]#### 97392-7 ####[facility] LABCLIA [id number] [place] [id number] MCV (RBC) [Entitic vol] 86.6 fL Normal 80.0-100.0 [facility] Comment on above: Order Comment: Speci men Type: BLOOD SPECIMENOrdering Facility: [facility] Address: [address] [place] [address] Performed By: #### 5 7021-8 ####[facility] LABCLIA [id number] [address] LABCLIA [id number] [place] [address] [place]#### 34013-2 ####[facility] LABIA [id number] [place] [id number] Monocytes (Bld) [#/Vol] 0.81 10*3/uL Normal <0.87 [facility] Comment on above: Order Comment: Speci men Type: BLOOD SPECIMENOrdering Facility: [facility] Address: [address] [place] [address] Performed By: #### 5 7021-8 ####[facility] LABCLIA [id number] [place] [address] LABCLIA [id number] [place] [address] [place]#### 32880-3 ####[facility] LABCLIA [id number] [place] [address] Monocytes/100 WBC (Bld) 6.1 % Normal [facility] Comment on above: Order Comment: Speci men Type: BLOOD SPECIMENOrdering Facility: [facility] Address: [address] [place] [address] Performed By: #### 5 7021-8 ####[facility] LABCLIA [id number] [place], [place] [address]DIFENNIUTOHIOHEALTH [facility] LABCLIA [id number] [place] [address] [place]#### 37963-6 ####[facility] LABCLIA [id number] [place] [address] Neutrophils (Bld) [#/Vol] 3.25 10*3/uL Normal 1.45-7.50 [facility] Comment on above: Order Comment: Speci men Type: BLOOD SPECIMENOrdering Facility: [facility] Address: [address] [place] [address] Performed By: #### 5 7021-8 ####[facility] LABCLIA [id number] [place] [address] LABCLIA [id number] [place] [address] [place]#### 20860-6 ####[facility] LABCLIA [id number] [place] [address] Neutrophils/100 WBC (Bld) 24.3 % Normal [facility] Comment on above: Order Comment: Speci men Type: BLOOD SPECIMENOrdering Facility: [facility] Address: [address] [place] [address] Performed By: #### 5 7021-8 ####[facility] LABCLIA [id number] [place] [id number] LABCLIA [id number] [place] [address] [place]#### [id number] ####[facility] LABCLIA [id number] [place] [address] Nucleated RBC (Bld) [#/Vol] 10*3/uL Normal <0.01 [facility] Comment on above: Order Comment: Speci men Type: BLOOD SPECIMENOrdering Facility: [facility] Address: [address] [place] [address] Performed By: #### 5 7021-8 ####[facility] LABCLIA [id number] [place] [id number] LABCLIA [id number] [place] [address] [place]#### 14854-9 ####[facility] LABCLIA [id number] [place] [address] Nucleated RBC/100 WBC (Bld) [Ratio] 0.0 /100 WBC Normal [facility] Comment on above: Order Comment: Speci men Type: BLOOD SPECIMENOrdering Facility: [facility] Address: [address] [address] Performed By: #### 5 7021-8 ####[facility] LABCLIA [id number] [place] [address] LABCLIA [id number] [place] [address] [place]#### 89113-9 ####[facility] LABCLIA [id number] [place] [address] Ovalocytes LM Ql (Bld) Few Normal [facility] Comment on above: Order Comment: Speci men Type: BLOOD SPECIMENOrdering Facility: [facility] Address: [address] [place] [address] Performed By: #### 5 7021-8 ####[facility] LABCLIA [id number] [place] [address] LABCLIA [id number] [address] [address] [place]#### 11979-8 ####[facility] LABCLIA [id number] [place] [address] Platelet mean volume (Bld) [Entitic vol] 9.7 fL Normal 9.0-12.7 [facility] Comment on above: Order Comment: Speci men Type: BLOOD SPECIMENOrdering Facility: [facility] Address: [address] [address] Performed By: #### 5 7021-8 ####[facility] LABCLIA [id number] [place] [id number] LABCLIA [id number] [place] [address] [place]#### 98930-7 ####[facility]ARFRANCIS[facility] LABCLIA [id number] [place] [address] Platelets (Bld) [#/Vol] 150 10*3/uL Normal 150-400 [facility] Comment on above: Order Comment: Speci men Type: BLOOD SPECIMENOrdering Facility: [facility] Address: [address] [address] Performed By: #### 5 7021-8 ####[facility] LABCLIA [id number] [place], [place] [address]ETLCQVKLKOHIO[facility] LABCLIA [id number] [place] [address] [place]#### 81325-5 ####[facility] LABCLIA [id number] [place] [address] Platelets Estimate (Bld) [#/Vol] Adequate Normal [facility] Comment on above: Order Comment: Speci men Type: BLOOD SPECIMENOrdering Facility: [facility] Address: [address] [place] [address] Performed By: #### 5 7021-8 ####[facility] LABCLIA [id number] [place] [id number] LABCLIA [id number] [place] [address] [place]#### 46417-5 ####[facility] LABCLIA [id number] [place] [address] Polychromasia LM Ql (Bld) Slight Normal [facility] Comment on above: Order Comment: Speci men Type: BLOOD SPECIMENOrdering Facility: [facility] Address: [address] [place] [address] Performed By: #### 5 7021-8 ####[facility] LABCLIA [id number] [address] LABCLIA [id number] [place] [address] [place]#### 27513-3 ####[facility] LABCLIA [id number] [place] [id number] RBC (Bld) [#/Vol] 2.54 10*6/uL Low 4.20-6.00 [facility] Comment on above: Order Comment: Speci men Type: BLOOD SPECIMENOrdering Facility: [facility] Address: [address] [place] [address] Performed By: #### 5 7021-8 ####[facility] LABCLIA [id number] [place] [address] LABCLIA [id number] [place] [address] [place]#### 40665-0 ####[facility] LABCLIA [id number] [place] [address] RED CELL MORPH Reviewed: see result s of individual morphologies Normal [facility] Comment on above: Order Comment: Speci men Type: BLOOD SPECIMENOrdering Facility: [facility] Address: [address] [place] [address] Performed By: #### 5 7021-8 ####[facility] LABCLIA [id number] [place], [place] [address]FIOIWPXQBOHIO[facility] LABCLIA [id number] [place] [address] [place]#### 83235-5 ####[facility] LABCLIA [id number] [place] [address] WBC (Bld) [#/Vol] 13.36 10*3/uL High 3.70-11.00 [facility] Comment on above: Order Comment: Speci men Type: BLOOD SPECIMENOrdering Facility: [facility] Address: [address] [place] [address] Performed By: #### 5 7021-8 ####[facility] LABCLIA [id number] [place], [place] [address]ARNKQUVQYOH[facility] LABCLIA [id number] [place] [address] [place]#### 63213-5 ####[facility] LABCLIA [id number] [place] [address] Basophils (Bld) [#/Vol] 0.14 10*3/uL High <0.11 [facility] Comment on above: Order Comment: Speci men Type: BLOOD SPECIMENOrdering Facility: [facility] Address: [address] [place] [address] Performed By: #### 5 7021-8 ####[facility] LABCLIA [id number] [place], [place] [address]WGVJMQEQDOHIOHEALTH [facility] LABCLIA [id number] [place] [address] [place] Basophils/100 WBC (Bld) 1.0 % Normal [facility] Comment on above: Order Comment: Speci men Type: BLOOD SPECIMENOrdering Facility: [facility] Address: [address] [place] [address] Performed By: #### 5 7021-8 ####[facility] LABCLIA [id number] [address] LABCLIA [id number] [place] [address] [place] Differential cell count method Nom (Bld) Manual Normal [facility] Comment on above: Order Comment: Speci men Type: BLOOD SPECIMENOrdering Facility: [facility] Address: [address] [place] [address] Performed By: #### 5 7021-8 ####[facility] LABCLIA [id number] [address] LABCLIA [id number] [place] [address] [place] Eosinophils (Bld) [#/Vol] 0.68 10*3/uL High <0.46 [facility] Comment on above: Order Comment: Speci men Type: BLOOD SPECIMENOrdering Facility: [facility] Address: [address] [place] [address] Performed By: #### 5 7021-8 ####[facility] LABCLIA [id number] [address] LABCLIA [id number] [place] [address] [place] Eosinophils/100 WBC (Bld) 5.0 % Normal [facility] Comment on above: Order Comment: Speci men Type: BLOOD SPECIMENOrdering Facility: [facility] Address: [address] [place] [address] Performed By: #### 5 7021-8 ####[facility] LABCLIA [id number] QUARRY LAKES [address] LABCLIA [id number] [place] [address] [place] Erythrocyte distribution width (RBC) [Ratio] 12.9 % Normal 11.5-15.0 [facility] Comment on above: Order Comment: Speci men Type: BLOOD SPECIMENOrdering Facility: [facility] Address: [address] [place] [address] Performed By: #### 5 7021-8 ####[facility] LABCLIA [id number] [address] LABCLIA [id number] [place] [address] [place] Hematocrit (Bld) [Volume fraction] 22.9 % Low 39.0-51.0 [facility] Comment on above: Order Comment: Speci men Type: BLOOD SPECIMENOrdering Facility: [facility] Address: [address] [place] [address] Performed By: #### 5 7021-8 ####[facility] LABCLIA [id number] [address] LABCLIA [id number] [place] [address] [place] Hemoglobin (Bld) [Mass/Vol] 7.7 g/dL Low 13.0-17.0 [facility] Comment on above: Order Comment: Speci men Type: BLOOD SPECIMENOrdering Facility: [facility] Address: [address] [place] [address] Performed By: #### 5 7021-8 ####[facility] LABCLIA [id number] [address] LABCLIA [id number] [place] [address] [place] Lymphocytes (Bld) [#/Vol] 8.34 10*3/uL High 1.00-4.00 [facility] Comment on above: Order Comment: Speci men Type: BLOOD SPECIMENOrdering Facility: [facility] Address: [address] [place] [address] Performed By: #### 5 7021-8 ####[facility] LABCLIA [id number] [address] LABCLIA [id number] [place] [address] [place] Lymphocytes/100 WBC (Bld) 61.0 % Normal [facility] Comment on above: Order Comment: Speci men Type: BLOOD SPECIMENOrdering Facility: [facility] Address: [address] [place] [address] Performed By: #### 5 7021-8 ####[facility] LABCLIA [id number] [address] LABCLIA [id number] [place] [address] [place] MCH (RBC) [Entitic mass] 29.1 pg Normal 26.0-34.0 [facility] Comment on above: Order Comment: Speci men Type: BLOOD SPECIMENOrdering Facility: [facility] Address: [address] [place] [address] Performed By: #### 5 7021-8 ####[facility] LABCLIA [id number] [address] LABCLIA [id number] [place] [address] [place] MCHC (RBC) [Mass/Vol] 33.6 g/dL Normal 30.5-36.[address] [facility] Comment on above: Order Comment: Speci men Type: BLOOD SPECIMENOrdering Facility: [facility] Address: [address] [place] [address] Performed By: #### 5 7021-8 ####[facility] LABCLIA [id number] [address] [facility] LABCLIA [id number] [place] [address] [place] MCV (RBC) [Entitic vol] 86.4 fL Normal 80.0-100.0 [facility] Comment on above: Order Comment: Speci men Type: BLOOD SPECIMENOrdering Facility: [facility] Address: [address] [place] [address] Performed By: #### 5 7021-8 ####[facility] LABCLIA [id number] [address] LABCLIA [id number] [place] [address] [place] Monocytes (Bld) [#/Vol] 0.27 10*3/uL Normal <0.87 [facility] Comment on above: Order Comment: Speci men Type: BLOOD SPECIMENOrdering Facility: [facility] Address: [address] [place] [address] Performed By: #### 5 7021-8 ####[facility] LABCLIA [id number] [address] LABCLIA [id number] [place] [address] [place] Monocytes/100 WBC (Bld) 2.0 % Normal [facility] Comment on above: Order Comment: Speci men Type: BLOOD SPECIMENOrdering Facility: [facility] Address: [address] [place] [address] Performed By: #### 5 7021-8 ####[facility] LABCLIA [id number] [address] LABCLIA [id number] [place] [address] [place] Neutrophils (Bld) [#/Vol] 4.24 10*3/uL Normal 1.45-7.50 [facility] Comment on above: Order Comment: Speci men Type: BLOOD SPECIMENOrdering Facility: [facility] Address: [address] [place] [address] Performed By: #### 5 7021-8 ####[facility] LABCLIA [id number] [place] [id number] LABCLIA [id number] [place] [address] [place] Neutrophils/100 WBC (Bld) 31.0 % Normal [facility] Comment on above: Order Comment: Speci men Type: BLOOD SPECIMENOrdering Facility: [facility] Address: [address] [place] [address] Performed By: #### 5 7021-8 ####[facility] LABCLIA [id number] [address] LABCLIA [id number] [place] [address] [place] Nucleated RBC (Bld) [#/Vol] 10*3/uL Normal <0.01 [facility] Comment on above: Order Comment: Speci men Type: BLOOD SPECIMENOrdering Facility: [facility] Address: [address] [place] [address] Performed By: #### 5 7021-8 ####[facility] LABCLIA [id number] [place] [address] LABCLIA [id number] [place] [address] [place] Nucleated RBC/100 WBC (Bld) [Ratio] 0.0 /100 WBC Normal [facility] Comment on above: Order Comment: Speci men Type: BLOOD SPECIMENOrdering Facility: [facility] Address: [address] [place] [address] Performed By: #### 5 7021-8 ####[facility] LABCLIA [id number] [address] LABCLIA [id number] [address] [address] [place] Ovalocytes LM Ql (Bld) Few Normal [facility] Comment on above: Order Comment: Speci men Type: BLOOD SPECIMENOrdering Facility: [facility] Address: [address] [place] [address] Performed By: #### 5 7021-8 ####[facility] LABCLIA [id number] [address] LABCLIA [id number] [place] [address] [place] Platelet mean volume (Bld) [Entitic vol] 9.5 fL Normal 9.0-12.7 [facility] Comment on above: Order Comment: Speci men Type: BLOOD SPECIMENOrdering Facility: [facility] Address: [address] [place] [address] Performed By: #### 5 7021-8 ####[facility] LABCLIA [id number] [address] LABCLIA [id number] [place] [address] [place] Platelets (Bld) [#/Vol] 154 10*3/uL Normal 150-400 [facility] Comment on above: Order Comment: Speci men Type: BLOOD SPECIMENOrdering Facility: [facility] Address: [address] [place] [address] Performed By: #### 5 7021-8 ####[facility] LABCLIA [id number] [place] [address] LABCLIA [id number] [place] [address] [place] Platelets Estimate (Bld) [#/Vol] Adequate Normal [facility] Comment on above: Order Comment: Speci men Type: BLOOD SPECIMENOrdering Facility: [facility] Address: [address] [place] [address] Performed By: #### 5 7021-8 ####[facility] LABCLIA [id number] [place] [id number] LABCLIA [id number] [place] [address] [place] Polychromasia LM Ql (Bld) Slight Normal [facility] Comment on above: Order Comment: Speci men Type: BLOOD SPECIMENOrdering Facility: [facility] Address: [address] [place] [address] Performed By: #### 5 7021-8 ####[facility] LABCLIA [id number] [address] LABCLIA [id number] [place] [address] [place] RBC (Bld) [#/Vol] 2.65 10*6/uL Low 4.20-6.00 [facility] Comment on above: Order Comment: Speci men Type: BLOOD SPECIMENOrdering Facility: [facility] Address: [address] [place] [address] Performed By: #### 5 7021-8 ####[facility] LABCLIA [id number] [address] LABCLIA [id number] [place] [address] [place] RED CELL MORPH Reviewed: see result s of individual morphologies Normal [facility] Comment on above: Order Comment: Speci men Type: BLOOD SPECIMENOrdering Facility: [facility] Address: [address] [place] [address] Performed By: #### 5 7021-8 ####[facility] LABCLIA [id number] [address] LABCLIA [id number] [place] [address] [place] WBC (Bld) [#/Vol] 13.67 10*3/uL High 3.70-11.00 [facility] Comment on above: Order Comment: Speci men Type: BLOOD SPECIMENOrdering Facility: [facility] Address: [address] [place] [address] Performed By: #### 5 7021-8 ####[facility] LABCLIA [id number] [place], [place] [address]MUNLWNWDROHIO[facility]ALTH [facility] LABCLIA [id number] [id number] [address] [place] [facility] COMP METAB 2000 PNL SERP Woody 07-09-2024 Albumin [Mass/Vol] 4.1 g/dL 3.9 - 4.9 g/dL [facility] ALP [Catalytic activity/Vol] 131 U/L High 38 - 113 U/L [facility] ALT [Catalytic activity/Vol] 16 U/L 10 - 54 U/L [facility] Anion gap [Moles/Vol] 8 mmol/L 8 - 15 mmol/L [facility] Calcium [Mass/Vol] 9.6 mg/dL 8.5 - 10. 2 mg/dL [facility] AST SERPL-CCNC 13 U/L Low 14 - 40 U/L [facility] BILIRUB SERPL-MCNC 0.3 mg/dL 0.2 - 1.3 mg/dL [facility] PROT SERPL-MCNC 6.2 g/dL Low 6.3 - 8. 0 g/dL [facility] Chloride [Moles/Vol] 99 mmol/L 98 - 10 7 mmol/L [facility] CO2 [Moles/Vol] 27 mmol/L 22 - 30 mmol/L [facility] Creatinine [Mass/Vol] 1.59 mg/dL High 0.73 - 1.22 mg/dL [facility] GFR/1.73 sq M.predicted CKD-EPI (S/P/Bld) [Vol rate/Area] 45 Low - PINF [facility] Comment on above: Estimated Glomerular Filtration Rate (eGFR) is calculated using the 2020 CKD-EPI creatinine equation. This equation utilizes serum creatinine, sex, and age as parameters. The creatinine assay has traceable calibration to isotope dilution-mass spectrometry. Refer to KDIGO guidelines for clinical interpretation. In patients with unstable renal function, e.g. those with acute kidney injury, the eGFR may not accurately reflect actual GFR. Glucose [Mass/Vol] 385 mg/dL High 74 - 99 mg/dL [facility] Comment on above: The [place] [employer] (ADA) provides guidance for cutoff values [...] Standards of Medical Care in Diabetes 2016, [place] [employer]. Diabetes Care. 2016.39(Suppl 1). Interpretation and review of laboratory results Abnormal [facility] Potassium [Moles/Vol] 5.4 mmol/L High 3.7 - 5.1 mmol/L [facility] Sodium [Moles/Vol] 134 mmol/L Low 136 - 144 mmol/L [facility] Urea nitrogen [Mass/Vol] 35 mg/dL High 9 - 24 mg/dL [facility] Specimen Type: BLOOD SPECIMEN [facility] Address: [address] [place] [address] Original Ordering Provider: [facility] LDH SERPL-CCNCon 024 [facility] LDH SERPL-CCNC 175 U/L 135 - 225 U/L [facility] Specimen Type: BLOOD SPECIMEN [facility] Address: [address] [place] [address] Original Ordering Provider: [facility] URATE SERPL-MCNCon 07-09 [facility] URATE SERPL-MCNC 5.2 mg/dL 4.0 - 8 .1 mg/dL [facility] Specimen Type: BLOOD SPECIMEN [facility] Address: [address] [place] [address] Original Ordering Provider: [facility] CNOVSPon 07-09-2024 CNOVSP Visit (SP) Office ([facility]) ILA MOREJON ([id number]) 1945 M Date Time Provider Department 07/09/24 2:00 PM SHAGGY ARRIAZAASA During your visit today, we recorded the following information about you: Temperature Pulse Respiration Blood pressure 98 degrees 60/minute 16/minute 134/45 Weight Height 72.9 kg 1.715 m Shaggy Arriaza PA-C 07/09/2024 2:39 PM Signed NAME: Ila Morejon CLINIC NO.: [id number] DATE OF SERVICE: July 09, 2024 (Nabil) Some elements in this clinic note that are critical to medical decision making have been carefully reviewed and included from a prior clinic note dated: January 16, 2024 (Lory) Referring Provider: Cruzito Mcgrath Additional Clinicians involved in Ila Morejon's care: DIAGNOSIS: lymphocytosis ASSESSMENT: 78 year old man with DM HTN, PVD presenting with lymphocytosis and diagnosed with CLL early June 2022. 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 He has new anemia, likely secondary to his recent diagnosis of GI bleed and gastritis, duodenitis found on EGD.Will do complete anemia work up today. He does not have any significant change in his WBC or exam findings to indicate this is CLL related. I will also offer him a transfusion of 1 unit of PRBCs because of his cardiac history and he is symptomatic. He will follow up in 1 week. CKD- mild and stable Gastritis/duodenitis--dayanna nue protonix per GI Afib now with pacemaker--on plavix and EC aspirin. Off eliquis since GI bleed DM2-advised patient his glucose level Is >300 and to follow up with PCP PLAN: Anemia lab work up today Type and cross and transfuse 1 unit of PRBCs at [facility] early next week Continue protonix, plavix, EC aspirin Stay off Eliquis Follow up with PCP for DM control RV in 1 week for follow up - HPI: CASE HISTORY: Reverse Chronological Order 04/04/2023 - Admitted to [facility] with NSTEMI Underwent placement of drug eluting [...] 18.8>14.0/39.7<185 Abs. Lymph: 10.1 Updated Visit, July 09, 2024: Ila returns for 6 month follow up. Was hospitalized 06/09-06/13 for GI bleed and pacemaker placement. Had preadmission testing for pacemaker placement and found to have a heomoglobin of 7.8. He had been started on eliquis a month prior for afib and was also on aspirin. EGD done showed gastritis and duodenitis. He has stopped eliquis and changed to EC aspirin. He is still on plavix, however. He is also taking protonix. He was also having issues with swelling and is on bumex 1mg now which is helping.He reports that has stools have returned to a normal color and he has not noticed any bleeding. He denies fevers, chills, early satiety, weight loss, lymph nodes or pain or night sweats. He reports that he feels weak and dizzy is he stands up too fast. Denies any chest pain or shortness of breath. Updated Visit, January 16, 2024: Ila returns [...] Has been sleeping more, especially since the CA. Updated Visit, December 27, 2022: 13 year [...] Visit, June 21, 2022: Ila Morejon presents (more content not included)... Normal [facility] Tyrese 07-09-2024 [facility] Telephone ([facility]) MOREJONILA Pete ([id number]) 1945 M Date Time Provider Department 07/09/24 SHAGGY ARRIAZA [facility] During your visit today, we recorded the following information about you: Gladys Benjamin 07/09/2024 2:30 PM Signed Left message w/ Gabe to schedule for transfusion early next week. Faxed order July 09, 2024 2:30 PM Gladys Garcia 07/09/2024 2:51 PM Signed Patient has been scheduled for transfusion on Friday. Lab @ 9:30 for TSC and 11:00 am transfusion. Gladys Benjamin Allergies As of Date: 07/09/2024 (No Known Allergies) Date Reviewed: 07/09/2024 Reviewed by: Shaggy Arriaza PA-C - Fully Assessed Reason for Visit: Transfusion [880] Prescriptions as of 07/09/2024 - bumetanide (BUMEX) 1 mg tablet Take 1 mg by mouth. - therapeutic multivitamin-minerals (THERA-M PLUS) 9 mg iron-400 mcg tablet Take 1 tablet by mouth every morning. - pantoprazole DR (PROTONIX) 40 mg tablet Take 40 mg by mouth once daily. - losartan (COZAAR) 50 mg tablet Take 50 mg by mouth once daily. - primidone (MYSOLINE) 50 mg tablet Take 50 mg by mouth daily at bedtime. - potassium gluconate 595 mg (99 mg) TbER Take 595 mg by mouth. - metFORMIN (GLUCOPHAGE) 500 mg tablet Take 500 mg by mouth daily with breakfast. - rosuvastatin (CRESTOR) 20 mg tablet Take 20 mg by mouth every evening. - gabapentin (NEURONTIN) 100 mg capsule TAKE 1 CAPSULE BY MOUTH AT BEDTIME FOR 1 DAY, THEN TAKE 1 CAPSULE TWICE DAILY FOR 1 DAY, AND THEN TAKE 1 CAPSULE THREE TIMES DAILY - aspirin 81 mg chewable tablet Take 81 mg by mouth. - amLODIPine (NORVASC) 5 mg tablet Take 10 mg by mouth every morning. - cholecalciferol, vitamin D3, 10 mcg (400 unit) cap Take 2,000 Units by mouth once daily. - insulin glargine (LANTUS) 100 unit/mL injection Inject subcutaneously as directed. - Zinc 50 mg tab Take 50 mg by mouth once daily. - carvedilol (COREG) 6.25 mg tablet Take 3.125 mg by mouth two times a day with meals. - pravastatin (PRAVACHOL) 20 mg tablet Take 20 mg by mouth once daily. - clopidogrel (PLAVIX) 75 mg tablet Take 75 mg by mouth once daily. 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 Comment on above: Order Comment: Speci men Type: BLOOD SPECIMENOrdering Facility: [facility] Address: [address] [place] [address] Performed By: #### D AGT ####CC MAIN BLOOD BANKCLIA [id number] [facility] [place] [address] [facility] Comprehensive metabolic 2000 panelon 07-09-2024 Albumin [Mass/Vol] 4.0 g/dL 3.9 - 4.9 g/dL [facility] ALP [Catalytic activity/Vol] 121 U/L High 38 - 113 U/L [facility] ALT [Catalytic activity/Vol] 16 U/L 10 - 54 U/L [facility] Anion gap [Moles/Vol] 8 mmol/L 8 - 15 mmol/L [facility] AST [Catalytic activity/Vol] 14 U/L 14 - 40 U/L [facility] Bilirubin [Mass/Vol] 0.3 mg/dL 0.2 - 1 .3 mg/dL [facility] Calcium [Mass/Vol] 9.6 mg/dL 8.5 - 10. 2 mg/dL [facility] Chloride [Moles/Vol] 99 mmol/L 98 - 10 7 mmol/L [facility] CO2 [Moles/Vol] 28 mmol/L 22 - 30 mmol/L [facility] Creatinine [Mass/Vol] 1.60 mg/dL High 0.73 - 1.22 mg/dL [facility] GFR/1.73 sq M.predicted among non-blacks MDRD (S/P/Bld) [Vol rate/Area] 44 mL/min/{1.73_m2} Low - PINF [facility] Comment on above: Estimated Glomerular Filtration Rate (eGFR) is calculated using the 2020 CKD-EPI creatinine equation. This equation utilizes serum creatinine, sex, and age as parameters. The creatinine assay has traceable calibration to isotope dilution-mass spectrometry. Refer to KDIGO guidelines for clinical interpretation. In patients with unstable renal function, e.g. those with acute kidney injury, the eGFR may not accurately reflect actual GFR. Glucose [Mass/Vol] 322 mg/dL High 74 - 99 mg/dL [facility] Comment on above: The [place] Di[employer] Association (ADA) provides guidance for cutoff values [...] Standards of Medical Care in Diabetes 2016, [place] [employer]. Diabetes Care. 2016.39(Suppl 1). Interpretation and review of laboratory results Abnormal [facility] Potassium [Moles/Vol] 5.1 mmol/L 3.7 - 5.1 mmol/L [facility] Protein [Mass/Vol] 6.2 g/dL Low 6.3 - 8.0 g/dL [facility] Sodium [Moles/Vol] 135 mmol/L Low 136 - 144 mmol/L [facility] Urea nitrogen [Mass/Vol] 34 mg/dL High 9 - 24 mg/dL [facility] Albumin [Mass/Vol] 4.0 g/dL Normal 3.9-4.9 [facility] Comment on above: Order Comment: Speci ping Type: BLOOD SPECIMENOrdering Facility: [facility] Address: [address] [place] [address] Performed By: #### 2 4323-8, 2532-0 ####[facility] LABCLIA [id number] [place] [address] ALP [Catalytic activity/Vol] 121 U/L High 38-113 [facility] Comment on above: Order Comment: Gueroi ping Type: BLOOD SPECIMENOrdering Facility: [facility] Address: [address] [place] [address] Performed By: #### 2 4323-8, 2531-0 ####[facility] LABCLIA [id number] [place] [address] ALT [Catalytic activity/Vol] 16 U/L Normal 10-54 [facility] Comment on above: Order Comment: Speci men Type: BLOOD SPECIMENOrdering Facility: [facility] Address: [address] [place] [address] Performed By: #### 2 4323-8, 2531-0 ####[facility] LABCLIA [id number] [place] [address] Anion gap [Moles/Vol] 8 mmol/L Normal 8-[address] [facility] Comment on above: Order Comment: Speci men Type: BLOOD SPECIMENOrdering Facility: [facility] Address: [address] [place] [address] Performed By: #### 2 4323-8, 2531-0 ####[facility] LABCLIA [id number] [place] [address] AST [Catalytic activity/Vol] 14 U/L Normal 14-40 [facility] Comment on above: Order Comment: Speci men Type: BLOOD SPECIMENOrdering Facility: [facility] Address: [address] [place] [address] Performed By: #### 2 4323-8, 2531-0 ####[facility] LABCLIA [id number] [place] [address] Bilirubin [Mass/Vol] 0.3 mg/dL Normal 0.2-1.3 [facility] Comment on above: Order Comment: Speci men Type: BLOOD SPECIMENOrdering Facility: [facility] Address: [address] [place] [address] Performed By: #### 2 4323-8, 2-0 ####[facility] LABCLIA [id number] [place] [address] Calcium [Mass/Vol] 9.6 mg/dL Normal 8.5-10.2 [facility] Comment on above: Order Comment: Speci men Type: BLOOD SPECIMENOrdering Facility: [facility] Address: [address] [place] [address] Performed By: #### 2 4323-8, 2532-0 ####[facility] LABCLIA [id number] [place] [address] Chloride [Moles/Vol] 99 mmol/L Normal 98-107 [facility] Comment on above: Order Comment: Speci men Type: BLOOD SPECIMENOrdering Facility: [facility] Address: [address] [place] [address] Performed By: #### 2 4323-8, 2531-0 ####[facility] LABCLIA [id number] [place] [address] CO2 [Moles/Vol] 28 mmol/L Normal 22-30 [facility] Comment on above: Order Comment: Speci men Type: BLOOD SPECIMENOrdering Facility: [facility] Address: [address] [place] [address] Performed By: #### 2 4323-8, 2531-0 ####[facility] LABCLIA [id number] [place] [address] Creatinine [Mass/Vol] 1.60 mg/dL High 0.73-1.[address] [facility] Comment on above: Order Comment: Speci men Type: BLOOD SPECIMENOrdering Facility: [facility] Address: [address] [place], [place] [address] Performed By: #### 2 4323-8, 2532-0 ####[facility] LABIA [id number] [place] [address] Creatinine and Glomerular filtration rate.predicted panel (S/P/Bld) 44 mL/min/1.73m??? Low >=60 [facility] Comment on above: Order Comment: Speci men Type: BLOOD SPECIMENOrdering Facility: [facility] Address: [address] [place] [address] [place] [address] Result Comment: Silvana mated Glomerular Filtration Rate [...] actual GFR. Performed By: #### 2 4323-8, ####[facility] LABCLIA [id number] [place] [address] Glucose [Mass/Vol] 322 mg/dL High 74-99 [facility] Comment on above: Order Comment: Michael feng Type: BLOOD SPECIMENOrdering Facility: [facility] Address: [address] [place] [address] Result Comment: The [place] Diabetes [employer] (ADA) provides guidance for cutoff [...] Standards of Medical Care in Diabetes 2016, [place] [employer]. Diabetes Care. 2016.39(Suppl 1). Performed By: #### 2 [address]38, ####[facility] LABCLIA [id number] [place] [address] Potassium [Moles/Vol] 5.1 mmol/L Normal 3.7-5.[address] [facility] Comment on above: Order Comment: Michael feng Type: BLOOD SPECIMENOrdering Facility: [facility] Address: [address] [place] [id number] Performed By: #### 2 4323-8, 0 ####[facility] LABCLIA [id number] [place] [address] Protein [Mass/Vol] 6.2 g/dL Low 6.3-8.0 [facility] Comment on above: Order Comment: Speci men Type: BLOOD SPECIMENOrdering Facility: [facility] Address: [address] [place] [address] Performed By: #### 2 4323-8, 2531-0 ####[facility] LABCLIA [id number] [place] [address] Sodium [Moles/Vol] 135 mmol/L Low 136-144 [facility] Comment on above: Order Comment: Speci men Type: BLOOD SPECIMENOrdering Facility: [facility] Address: [address] [place] [address] Performed By: #### 2 4323-8, 2531-0 ####[facility] LABCLIA [id number] [place] [address] Urea nitrogen [Mass/Vol] 34 mg/dL High 9-24 [facility] Comment on above: Order Comment: Speci men Type: BLOOD SPECIMENOrdering Facility: [facility] Address: [address] [place] [address] Performed By: #### 2 4323-8, 2531-0 ####[facility] LABCLIA [id number] [place] [address] Albumin [Mass/Vol] 4.1 g/dL Normal 3.9-4.9 [facility] Comment on above: Order Comment: Speci men Type: BLOOD SPECIMENOrdering Facility: [facility] Address: [address] [place], [place] [address] Performed By: #### 3 084-1, 60782-6, 2531-0 ####[facility] LABCLIA [id number] [place] [address] ALP [Catalytic activity/Vol] 131 U/L High 38-113 [facility] Comment on above: Order Comment: Speci men Type: BLOOD SPECIMENOrdering Facility: [facility] Address: [address] [place] [address] Performed By: #### 3 084-1, 03394-1, 2531-0 ####[facility] LABIA [id number] [place] [address] ALT [Catalytic activity/Vol] 16 U/L Normal 10-54 [facility] Comment on above: Order Comment: Speci men Type: BLOOD SPECIMENOrdering Facility: [facility] Address: [address] [place], [place] [address] Performed By: #### 3 084-1, 27936-3, 2531-0 ####[facility] LABIA [id number] [place] [address] Anion gap [Moles/Vol] 8 mmol/L Normal 8-[address] [facility] Comment on above: Order Comment: Speci men Type: BLOOD SPECIMENOrdering Facility: [facility] Address: [address] [place], [place] [address] Performed By: #### 3 084-1, 60159-8, 2531-0 ####[facility] LABIA [id number] [place] [address] AST [Catalytic activity/Vol] 13 U/L Low 14-40 [facility] Comment on above: Order Comment: Speci men Type: BLOOD SPECIMENOrdering Facility: [facility] Address: [address] [place] [address] Performed By: #### 3 084-1, 23118-1, 2531-0 ####[facility] LABIA [id number] [place] [address] Bilirubin [Mass/Vol] 0.3 mg/dL Normal 0.2-1.3 [facility] Comment on above: Order Comment: Speci men Type: BLOOD SPECIMENOrdering Facility: [facility] Address: [address] [place] [address] Performed By: #### 3 084-1, , 2531-0 ####[facility] LABCLIA [id number] [place] [address] Calcium [Mass/Vol] 9.6 mg/dL Normal 8.5-10.2 [facility] Comment on above: Order Comment: Speci men Type: BLOOD SPECIMENOrdering Facility: [facility] Address: [address] [place] [address] Performed By: #### 3 084-1, , 0 ####[facility] LABCLIA [id number] [place] [address] Chloride [Moles/Vol] 99 mmol/L Normal 98-107 [facility] Comment on above: Order Comment: Speci men Type: BLOOD SPECIMENOrdering Facility: [facility] Address: [address] [place] [address] Performed By: #### 3 084-1, , 2531-0 ####[facility] LABCLIA [id number] [place] [address] CO2 [Moles/Vol] 27 mmol/L Normal 22-30 [facility] Comment on above: Order Comment: Speci men Type: BLOOD SPECIMENOrdering Facility: [facility] Address: [address] [place] [address] Performed By: #### 3 084-1, , 2531-0 ####[facility] LABCLIA [id number] [place] [address] Creatinine [Mass/Vol] 1.59 mg/dL High 0.73-1.[address] [facility] Comment on above: Order Comment: Speci men Type: BLOOD SPECIMENOrdering Facility: [facility] Address: [address] [place] [address] Performed By: #### 3 084-1, , 2531-0 ####[facility] LABCLIA [id number] [place] [address] Creatinine and Glomerular filtration rate.predicted panel (S/P/Bld) 45 mL/min/1.73m??? Low >=60 [facility] Comment on above: Order Comment: Michael feng Type: BLOOD SPECIMENOrdering Facility: [facility] Address: [address] [place] [address] Result Comment: Silvana mated Glomerular Filtration Rate [...] actual GFR. Performed By: #### 3 084-1, 84368-1, 2531-0 ####[facility] LABCLIA [id number] [place] [address] Glucose [Mass/Vol] 385 mg/dL High 74-99 [facility] Comment on above: Order Comment: Michael feng Type: BLOOD SPECIMENOrdering Facility: [facility] Address: [address] [place] [address] Result Comment: The [place] Diabetes [employer] (ADA) provides guidance for cutoff [...] Standards of Medical Care in Diabetes 2016, [place] [employer]. Diabetes Care. 2016.39(Suppl 1). Performed By: #### 3 084-1, 32980-1, 2531-0 ####[facility] LABCLIA [id number] [place] [address] Potassium [Moles/Vol] 5.4 mmol/L High 3.7-5.[address] [facility] Comment on above: Order Comment: Speci men Type: BLOOD SPECIMENOrdering Facility: [facility] Address: [address] [place] [address] Performed By: #### 3 084-1, 01260-9, 0 ####[facility] LABCLIA [id number] [place] [address] Protein [Mass/Vol] 6.2 g/dL Low 6.3-8.0 [facility] Comment on above: Order Comment: Speci men Type: BLOOD SPECIMENOrdering Facility: [facility] Address: [address] [place] [address] Performed By: #### 3 084-1, , 0 ####[facility] LABCLIA [id number] [place] [address] Sodium [Moles/Vol] 134 mmol/L Low 136-144 [facility] Comment on above: Order Comment: Speci men Type: BLOOD SPECIMENOrdering Facility: [facility] Address: [address] [place] [address] Performed By: #### 3 084-1, , 0 ####[facility] LABCLIA [id number] [place] [address] Urea nitrogen [Mass/Vol] 35 mg/dL High 9-24 [facility] Comment on above: Order Comment: Speci men Type: BLOOD SPECIMENOrdering Facility: [facility] Address: [address] [place] [address] Performed By: #### 3 084-1, , 0 ####[facility] LABCLIA [id number] [place] [address] EPO [facility]Pl[facility] 07-09-2024 Erythropoietin (EPO) Qn 81.3 mIU/mL High 2.6-18.5 [facility] Comment on above: Order Comment: Speci men Type: BLOOD SPECIMENOrdering Facility: [facility] Address: [address] [place] [address] Performed By: #### 1 5061-5 ####[facility] LABCLIA [id number] [place] [address] [place] Ferritin SerPl-mCncon 2023 Ferritin [Mass/Vol] 31.5 ng/mL Normal 30.3-565.7 [facility] Comment on above: Order Comment: Speci men Type: BLOOD SPECIMENOrdering Facility: [facility] Address: [address] [place] [address] Performed By: #### 5 0190-8, 3016-3, 4542-7, 2276-4 ####[facility] LABCLIA [id number] [place] [address] [place] Folate SerPl-mCncon 07-09-20 Folate [Mass/Vol] ng/mL Normal >4.7 [facility] Comment on above: Order Comment: Speci [facility] Type: BLOOD SPECIMENOrdering Facility: [facility] Address: [address] [place] [address] Result Comment: A re sult of > 20 ng/mL is not necessarily indicative of a pathologic or treatable condition: it reflects a limitation of the test methodology. Assay reference range: 4.8 to 24.2 ng/mL. Suitable for detection of folate deficiency. Reference: Folate III (Folate III) [package insert V 1.0 Israeli]. [facility], [place], [place]: May 2015. Performed By: #### 1 952-1, 2132-9, 2284-8 ####[facility] LABCLIA [id number] [place] [address] [place] Haptoglob SerPl-mCncon 07-09 Haptoglobin [Mass/Vol] 166 mg/dL Normal 31-238 [facility] Comment on above: Order Comment: Speci men Type: BLOOD SPECIMENOrdering Facility: [facility] Address: [address] [place] [address] Performed By: #### 5 0190-8, 3016-3, 4542-7, 2276-4 ####[facility] LABCLIA [id number] [address] STATES OF [facility] IMMUNOFIXATION SCREEN, SERUM on 07-09-2024 MPA RESULT No M protein is identified. Normal No M protein is identified . [facility] Comment on above: Order Comment: Speci men Type: BLOOD SPECIMENOrdering Facility: [facility] Address: [address] [place] [address] Performed By: #### I FESC ####[facility] LABCLIA [id number] [address] [place] STAFF REVIEW (MPA) Reviewed by Sonam Tan MD [facility] Comment on above: Order Comment: Speci men Type: BLOOD SPECIMENOrdering Facility: [facility] Address: [address] [place] [address] Performed By: #### I FES ####[facility] LABCLIA [id number] [place] [address] [place] IMMUNOGLOBULINS,IGG,IGA,IGMo n 07-09-2024 IgA [Mass/Vol] 141 mg/dL Normal 70-400 [facility] Comment on above: Order Comment: Speci men Type: BLOOD SPECIMENOrdering Facility: [facility] Address: [address] [place] [address] Performed By: #### S ERIMM ####[facility] LABCLIA [id number] [place] [address] [place] IgG [Mass/Vol] 705 mg/dL Normal 700-1600 [facility] Comment on above: Order Comment: Speci men Type: BLOOD SPECIMENOrdering Facility: [facility] Address: [address] [place] [address] Performed By: #### S ERIMM ####[facility] LABCLIA [id number] [place] [address] [place] IgM [Mass/Vol] 46 mg/dL Normal 40-230 [facility] Comment on above: Order Comment: Speci men Type: BLOOD SPECIMENOrdering Facility: [facility] Address: [address] [place] [address] Performed By: #### S ERIMM ####[facility] LABCLIA [id number] [place] [address] [place] Iron and Iron binding capaci ty panelon 07-09-2024 Iron [Mass/Vol] 65 ug/dL Normal 41-186 [facility] Comment on above: Order Comment: Speci men Type: BLOOD SPECIMENOrdering Facility: [facility] Address: [address] [place] [address] Performed By: #### 5 0190-8, 3016-3, 4542-7, 2275-4 ####[facility] LABIA [id number] [place] [address] [place] Iron binding capacity [Mass/Vol] 392 ug/dL High 232-386 [facility] Comment on above: Order Comment: Speci men Type: BLOOD SPECIMENOrdering Facility: [facility] Address: [address] [place] [address] Performed By: #### 5 0190-8, 3016-3, 4542-7, 2275-4 ####[facility] LABCLIA [id number] [place] [address] [place] Iron/TIBC [Molar ratio] 16.6 % Normal 15.0-57.0 [facility] Comment on above: Order Comment: Speci men Type: BLOOD SPECIMENOrdering Facility: [facility] Address: [address] [place] [address] Performed By: #### 5 0190-8, 3016-3, 4542-7, 6-4 ####[facility] LABCLIA [id number] [place] [address] [place] KAPPA/QUINTEROS,FREE,SERon 2023 Immunoglobulin light chains.kappa.free (S) [Mass/Vol] 56.1 mg/L High 3.3-19.4 [facility] Comment on above: Order Comment: Speci men Type: BLOOD SPECIMENOrdering Facility: [facility] Address: [address] [place] [address] Result Comment: Rare ly, increased serum free light chains levels may not be detected or accurately quantified due to prozone phenomenon or in high viscosity samples using this immunoturbidimetric assay. Correlation with other laboratory results and clinical findings is recommended. The [place] Free Light Chain was performed using the Binding Site Optilite immunoturbidimetric method. Result obtained with different assay methods or kits cannot be used interchangeably. Performed By: #### K LFRS ####[facility] LABCLIA [id number] [place] [address] [place] Immunoglobulin light chains.kappa/Immunoglo bulin light chains.lambda (S) [Mass ratio] 2.03 High 0.26-1.65 [facility] Comment on above: Order Comment: Speci men Type: BLOOD SPECIMENOrdering Facility: [facility] Address: [address] [place] [address] Performed By: #### K LFRS ####[facility] LABCLIA [id number] [place] [address] [place] Immunoglobulin light chains.lambda.free [Mass/Vol] 27.6 mg/L High 5.7-26.3 [facility] Comment on above: Order Comment: Speci men Type: BLOOD SPECIMENOrdering Facility: [facility] Address: [address] [place] [address] Result Comment: Rare ly, increased serum free light chains levels may not be detected or accurately quantified due to prozone phenomenon or in high viscosity samples using this immunoturbidimetric assay. Correlation with other laboratory results and clinical findings is recommended. The [place] Free Light Chain was performed using the Binding Site Optilite immunoturbidimetric method. Result obtained with different assay methods or kits cannot be used interchangeably. Performed By: #### K RS ####[facility] LABCLIA [id number] [place] [address] [place] LACTATE DEHYDROGENASEOrdered By: Flora Jordan on 07-09-2024 LDH [Catalytic activity/Vol] 178 U/L 135 - 225 U/L [facility] LDH SerPl-cCncon 07-09-2024 LDH [Catalytic activity/Vol] 178 U/L Normal 135-225 [facility] Comment on above: Order Comment: Speci men Type: BLOOD SPECIMENOrdering Facility: [facility] Address: [address] [place] [address] Performed By: #### 2 4323-8, 2532-0 ####[facility] LABCLIA [id number] [place] [address] LDH [Catalytic activity/Vol] 175 U/L Normal 135-225 [facility] Comment on above: Order Comment: Speci men Type: BLOOD SPECIMENOrdering Facility: [facility] Address: [address] [place] [address] Performed By: #### 3 084-1, 11758-5, 2-0 ####[facility] LABCLIA [id number] [place] [address] LDH [Catalytic activity/Vol] Ordered By: Flora Jordan on 07-09-2024 Interpretation and review of laboratory results Normal [facility] Methylmalonate SerPl-sCncon 07-09-2024 Methylmalonate [Moles/Vol] 0.21 umol/L Normal <=0.40 [facility] Comment on above: Order Comment: Speci men Type: BLOOD SPECIMENOrdering Facility: [facility] Address: [address] [place] [address] Result Comment: This test was developed, and its performance characteristics determined by the [facility] Department of Pathology and Laboratory Medicine. It has not been cleared or approved by the FDA. The [facility] Department of Pathology and Laboratory Medicine is regulated under CLIA as qualified to perform high-complexity testing. This test is used for clinical purposes. It should not be regarded as investigational or for research. Performed By: #### 1 3964-2 ####[facility] LABCLIA [id number] [place] [address] [place] RETICULOCYTE COUNTon 024 Reticulocytes (Bld) [#/Vol] 0.052 10*3/uL [facility] Retics #on 07-09-2024 Reticulocytes (Bld) [#/Vol] 0.30795 10*3/uL Normal 0.018-0.10 0 [facility] Comment on above: Order Comment: Speci men Type: BLOOD SPECIMENOrdering Facility: [facility] Address: [address] [place] [address] Performed By: #### 5 7021-8 ####[facility] LABCLIA [id number] [place] [id number] LABCLIA [id number] [address]#### [address]-3 ####[facility] LABCLIA [id number] [place] [id number] Reticulocytes (Bld) [#/Vol]o n 07-09-2024 Interpretation and review of laboratory results Abnormal [facility] Reticulocytes/100 RBC (Bld) 2.1 % High 0.4 - 2.0 % [facility] Reticulocytes/100 RBC (Bld) 2.1 % High 0.4-2.0 [facility] Comment on above: Order Comment: Speci men Type: BLOOD SPECIMENOrdering Facility: [facility] Address: [address] [place] [address] Performed By: #### 5 7021-8 ####[facility] LABCLIA [id number] [place], [place] [address]LPGBBQBCOO[facility] LABCLIA [id number] [address] [place]#### [address]-6 ####[facility] LABCLIA [id number] [place] [address] TSH SerPl-aCncon 07-09-2024 TSH Qn 1.980 m[IU]/L Normal 0.270-4.20 0 [facility] Comment on above: Order Comment: Speci men Type: BLOOD SPECIMENOrdering Facility: [facility] Address: [address] [place] [address] Performed By: #### 5 0190-8, 3016-3, 4542-7, 2276-4 ####[facility] LABCLIA [id number] [place] [address] [place] Urate SerPl-nc 4 Urate [Mass/Vol] 5.2 mg/dL Normal 4.0-8.1 [facility] Comment on above: Order Comment: Speci men Type: BLOOD SPECIMENOrdering Facility: [facility] Address: [address] [place] [address] Performed By: #### 3 084-1, 53604-1, 2532-0 ####[facility] LABCLIA [id number] [place] [address] Vit B12 SerPl-mCncon 024 Cobalamin (Vitamin B12) [Mass/Vol] 1243 pg/mL Normal 232-1245 [facility] Comment on above: Order Comment: Speci men Type: BLOOD SPECIMENOrdering Facility: [facility] Address: [address] [place] [address] Performed By: #### 1 952-1, 2132-9, 2284-8 ####[facility] LABCLIA [id number] [place] [address] [place] No Panel Informationon 07-08 Type of biopsy: gomez ential Informed consent: discussed and consent obtained Informed consent comment: The risks and benefits of the biopsy were discussed. Risks include but are not limited to bleeding, infection, scarring, pain, and nerve damage. An opportunity to ask questions prior to the procedure was permitted and all questions were answered. Patient was prepped and draped in usual sterile fashion: area cleansed with alcohol. Anesthesia: the lesion was anesthetized in a standard fashion Anesthetic: 1% lidocaine w/ epinephrine 1-100,000 buffered w/ 8.4% NaHCO3 Instrument used: DermaBlade Hemostasis achieved with: electrodesiccation Outcome: patient tolerated procedure well Outcome comment: The specimen was placed in a prelabeled formalin container to be sent for pathology Post-procedure details: sterile dressing applied and wound care instructions given Post-procedure details comment: Emphasized need to contact clinic for any signs of infection, uncontrollable bleeding, or complications. Dressing type: bandage Additional details: Photo taken Amount of lidocaine used: 0.5 cc [facility] Documentationon 06-23-2024 Documentation [id number] Lencho Morejon U 1945 M Date Provider Department Center 06/23/2024 [id number], [facility] CARD [facility] No family history on file [facility] Office Visiton 06-21-2024 Follow-up visit [id number] Lencho Morejon U 1945 M Date Provider Department Center 06/21/2024 [facility] C[facility] No family history on file Level of Service:42717 NE OFFICE/OUTPATIENT ESTABLISHED MDM 10 MIN Normal [facility] ALL BASIC METABOLIC PANELon 06-16-2024 Anion gap [Moles/Vol] 13.5 mmol/L NO [facility] Calcium [Mass/Vol] 9.2 mg/dL 8.5 - 10. 1 mg/dL [facility] Chloride [Moles/Vol] 103 mmol/L 98 - 10 7 mmol/L [facility] CO2 [Moles/Vol] 25.2 mmol/L 21.0 - 32.0 mmol/L [facility] Creatinine [Mass/Vol] 1.64 mg/dL High 0.70 - 1.30 mg/dL [facility] GFR/1.73 sq M.predicted CKD-EPI (S/P/Bld) [Vol rate/Area] 50 Low >=60 mL/min/1.7 3m 2 [facility] Glucose [Mass/Vol] 231 mg/dL High 74 - 106 mg/dL [facility] Interpretation and review of laboratory results Abnormal [facility] Potassium [Moles/Vol] 4.7 mmol/L 3.5 - 5.1 mmol/L [facility] Sodium [Moles/Vol] 137 mmol/L 136 - 145 mmol/L [facility] TBH EGFR-NON AF IVORIAN 41 Low >=60 mL/min/1.7 3m 2 [facility] Urea nitrogen [Mass/Vol] 32 mg/dL High 7.0 - 18.0 mg/dL [facility] Urea nitrogen/Creatinine [Mass ratio] 19.5 mg/mg [facility] ALL MAGNESIUMon 06-16-2024 Magnesium [Mass/Vol] 2 mg/dL 1.8 - 2 .4 mg/dL [facility] No Panel Informationon 06-16 [facility] 36on 06-14-2024 36 Post Discharge Call Good morning, I am Sue Daniels RN a lead nurse from [facility]. I am calling you to follow up on your stay with us and make sure all of your questions have been answered. You will be receiving a survey either electronic or via mail and we always aim to receive 9???s and 10???s. If there is any reason you feel as though you cannot give us these scores please indicate that now. 1. How have you been feeling since being discharged from the hospital? Good. 2. Did you understand your discharge instructions when they were given to prior to leaving? Yes Were you given an opportunity to ask questions? Yes 3. While a patient in the hospital, was your call light answered in a timely manner? Yes 4. Do have access to all medications that were prescribed to you at discharge? All but two. 5. How would you rate your overall stay on a scale of 0-10, 10 being the best experience you have ever had. 10 6. Do you have any further questions you would like to discuss? No Patient Name Ila Morejon Date 06/14/24 Normal [facility] Telephoneon 06-14-2024 Telephone [id number] Trell Morejonfabio Levine 1945 M Date Provider Department Center 06/14/2024 SUE PARSONS [facility] No family history on file Reason for Visit and Comments: Hospital Follow-up [832] Normal [facility] BASIC METABOLIC PANELon 11-2 Anion gap [Moles/Vol] 7 mmol/L Normal 7-20 [facility] Comment on above: Performed By: #### L [id number] ####[facility] ([facility])[address] [place] [address] Calcium [Mass/Vol] 8.5 mg/dL Low 8.6-10.3 [facility] Comment on above: Performed By: #### L [id number] ####[facility] ([facility])[address] [place] [address] Chloride [Moles/Vol] 107 mmol/L Normal 98-107 [facility] Comment on above: Performed By: #### L [id number] ####[facility] ([facility])[address] [place] [address] CO2 [Moles/Vol] 26 mmol/L Normal 21-31 [facility] Comment on above: Performed By: #### L [id number] ####[facility] ([facility])[address] [place] [address] Creatinine [Mass/Vol] 1.53 mg/dL High 0.70-1.30 [facility] Comment on above: Performed By: #### L [id number] ####[facility] ([facility])[address] [place] [address] GLOMERULAR FILTRATION RATE ML/MIN/1.73 SQ M.PREDICTED 46.8 mL/min/1.73m*2 Low >60.0 [facility] Comment on above: Result Comment: The [facility]???s estimated glomerular filtration rate (eGFR) will no longer include consideration of race in its calculation. The National Kidney Foundation???s eGFR Task Force developed new recommendations for the estimation of the glomerular filtration rate in the [place] They recommend immediate implementation of the new equation refit without the race variable in all laboratories because the calculation does not include race. In addition to not including race in the calculation and reporting, it included diversity in its development, and has acceptable performance characteristics and potential consequences that do not disproportionately affect any one group of individuals. Performed By: #### L [id number] ####[facility] ([facility])[address] [place] [address] Glucose [Mass/Vol] 195 mg/dL High 70-100 [facility] Comment on above: Performed By: #### L [id number] ####[facility] ([facility])[address] [facility] [address] Potassium [Moles/Vol] 4.7 mmol/L Normal 3.5-5.1 [facility] Comment on above: Performed By: #### L [id number] ####[facility] ([facility])[address] [place] [address] Sodium [Moles/Vol] 135 mmol/L Low 136-145 [facility] Comment on above: Performed By: #### L [id number] ####[facility] ([facility])[address] [place] [address] Urea nitrogen [Mass/Vol] 25 mg/dL Normal 7-25 [facility] Comment on above: Performed By: #### L [id number] ####[facility] ([facility])[address] [place] [address] UREA NITROGEN/CREATININE (MASS RATIO) IN SER/PLAS 16.3 Normal [facility] Comment on above: Performed By: #### L [id number] ####[facility] ([facility])[address] [facility] [address] CBCon 06-13-2024 Erythrocyte distribution width (RBC) [Ratio] 12.8 % Normal 11.5-15.0 [facility] Comment on above: Performed By: #### L [id number] #### [facility] ([facility]) [address] [place] [address] ERYTHROCYTE MEAN CORPUSCULAR HEMOGLOBIN CONCENTRATION (G/DL) BY AUTOMATED 33.3 g/dL Normal 32.0-35.0 [facility] Comment on above: Performed By: #### L [id number] #### [facility] ([facility]) [address] [place] [address] Hematocrit (Bld) [Volume fraction] 25.8 % Low 39.0-55.0 [facility] Comment on above: Performed By: #### L [id number] #### [facility] ([facility]) [address] [place] [address] Hemoglobin (Bld) [Mass/Vol] 8.6 g/dL Low 13.0-17.0 [facility] Comment on above: Performed By: #### L [id number] #### [facility] ([facility]) [address] [place] [address] MCH (RBC) [Entitic mass] 30.1 pg Normal 27.0-33.0 [facility] Comment on above: Performed By: #### L [id number] #### [facility] ([facility]) [address] [place] [address] MCV (RBC) [Entitic vol] 90.2 fL Normal 82.0-98.0 [facility] Comment on above: Performed By: #### L [id number] #### [facility] ([facility]) [address] [place] [address] PLATELETS (10*3/UL) IN BLOOD AUTOMATED COUNT 157 10*3/uL Normal 150-400 [facility] Comment on above: Performed By: #### L [id number] #### [facility] ([facility]) [address] [place] [address] RBC (Bld) [#/Vol] 2.86 10*6/uL Low 4.20-5.70 [facility] Comment on above: Performed By: #### L [id number] #### [facility] ([facility]) [address] [place] [address] WBC (Bld) [#/Vol] 14.79 10*3/uL High 4.00-10.60 [facility] Comment on above: Performed By: #### L [id number] #### [facility] ([facility]) [address] [place] [address] MAGNESIUMon 06-13-2024 Magnesium [Mass/Vol] 1.9 mg/dL Normal 1.9-2.7 [facility] Comment on above: Performed By: #### L [id number] #### [facility] ([facility]) [address] [address] NURSNOTEon 06-13-2024 NURSNOTE AVS reviewed with pt and at bedside all concerns answered, both verbalize understanding, Pacemaker equipment sent home with pt and pt has sling on to left arm, pt being taken by transport to leave facility. Normal [facility] POCT GLUCOSE METER UNSOLICIT ED RESULTSon 06-13-2024 Glucose [Mass/Vol] 271 mg/dL High 70-105 [facility] Comment on above: Order Comment: Waive d Testing in the ED is performed under the ED CLIA certificate #[id number]. Result Comment: filippo [email or web address] Performed By: #### L [id number] #### [facility] ([facility]) [address] [place] [address] Glucose [Mass/Vol] 215 mg/dL High 70-105 [facility] Comment on above: Order Comment: Waive d Testing in the ED is performed under the ED CLIA certificate #[id number]. Result Comment: ebeg in Performed By: #### L [id number] #### [facility] ([facility]) [address] [place] [address] 30on 06-12-2024 30 The patient is Moder ately Stable - Low risk of patient condition declining or worsening The patient's goals for the shift include comfort, rest The clinical goals for the shift include stable vitals, safety Problem: Pain - Adult Goal: Verbalizes/displays adequate comfort level or baseline comfort level Outcome: Progressing Problem: Safety - Adult Goal: Free from fall injury Outcome: Progressing Problem: Chronic Conditions and Co-morbidities Goal: Patient's chronic conditions and co-morbidity symptoms are monitored and maintained or improved Outcome: Progressing Normal [facility] 30 The patient is Moder ately Stable - Low risk of patient condition declining or worsening The patient's goals for the shift include complete CT The clinical goals for the shift include stable vitals no bleeding Over the shift, the patient did make progress toward the following goals. Barriers to progression include hospital routine and emergent cases. Recommendations to address these barriers include communicate timely and plan with pt Problem: Pain - Adult Goal: Verbalizes/displays adequate comfort level or baseline comfort level Outcome: Progressing . Normal [facility] BASIC METABOLIC PANELon 11-2 Anion gap [Moles/Vol] 9 mmol/L Normal 7-20 [facility] Comment on above: Performed By: #### L [id number] #### [facility] ([facility]) [address] [place] [address] Calcium [Mass/Vol] 8.5 mg/dL Low 8.6-10.3 [facility] Comment on above: Performed By: #### L [id number] #### [facility] ([facility]) [address] [place] [address] Chloride [Moles/Vol] 104 mmol/L Normal 98-107 [facility] Comment on above: Performed By: #### L [id number] #### [facility] ([facility]) [address] [place] [address] CO2 [Moles/Vol] 24 mmol/L Normal 21-31 [facility] Comment on above: Performed By: #### L [id number] #### [facility] ([facility]) [address] [place] [address] Creatinine [Mass/Vol] 1.75 mg/dL High 0.70-1.30 [facility] Comment on above: Performed By: #### L [id number] #### [facility] ([facility]) [address] [place] [address] GLOMERULAR FILTRATION RATE ML/MIN/1.73 SQ M.PREDICTED 39.9 mL/min/1.73m*2 Low >60.0 [facility] Comment on above: Result Comment: The [facility]???s estimated glomerular filtration rate (eGFR) will no longer include consideration of race in its calculation. The National Kidney Foundation???s eGFR Task Force developed new recommendations for the estimation of the glomerular filtration rate in the [place] They recommend immediate implementation of the new equation refit without the race variable in all laboratories because the calculation does not include race. In addition to not including race in the calculation and reporting, it included diversity in its development, and has acceptable performance characteristics and potential consequences that do not disproportionately affect any one group of individuals. Performed By: #### L [id number] #### [facility] ([facility]) [address] [place] [address] Glucose [Mass/Vol] 254 mg/dL High 70-100 [facility] Comment on above: Performed By: #### L [id number] #### [facility] ([facility]) [address] [place] [address] Potassium [Moles/Vol] 5.0 mmol/L Normal 3.5-5.1 [facility] Comment on above: Performed By: #### L [id number] #### [facility] ([facility]) [address] [place] [address] Sodium [Moles/Vol] 132 mmol/L Low 136-145 [facility] Comment on above: Performed By: #### L [id number] #### [facility] ([facility]) [address] [place] [address] Urea nitrogen [Mass/Vol] 26 mg/dL High 7-25 [facility] Comment on above: Performed By: #### L [id number] #### [facility] ([facility]) [address] [place] [address] UREA NITROGEN/CREATININE (MASS RATIO) IN SER/PLAS 14.9 Normal [facility] Comment on above: Performed By: #### L [id number] #### [facility] ([facility]) [address] [place] [address] Anion gap [Moles/Vol] 9 mmol/L Normal 7-20 [facility] Comment on above: Performed By: #### L [id number] #### [facility] ([facility] [address] [place] [address] Calcium [Mass/Vol] 8.2 mg/dL Low 8.6-10.3 [facility] Comment on above: Performed By: #### L [id number] #### [facility] ([facility]) [address] [place] [address] Chloride [Moles/Vol] 103 mmol/L Normal 98-107 [facility] Comment on above: Performed By: #### L [id number] #### [facility] ([facility]) [address] [place] [address] CO2 [Moles/Vol] 23 mmol/L Normal 21-31 [facility] Comment on above: Performed By: #### L [id number] #### [facility] ([facility]) [address] [place] [address] Creatinine [Mass/Vol] 1.86 mg/dL High 0.70-1.30 [facility] Comment on above: Performed By: #### L [id number] #### [facility] ([facility]) [address] [place] [address] GLOMERULAR FILTRATION RATE ML/MIN/1.73 SQ M.PREDICTED 37.0 mL/min/1.73m*2 Low >60.0 [facility] Comment on above: Result Comment: The [facility]???s estimated glomerular filtration rate (eGFR) will no longer include consideration of race in its calculation. The National Kidney Foundation???s eGFR Task Force developed new recommendations for the estimation of the glomerular filtration rate in the [place] They recommend immediate implementation of the new equation refit without the race variable in all laboratories because the calculation does not include race. In addition to not including race in the calculation and reporting, it included diversity in its development, and has acceptable performance characteristics and potential consequences that do not disproportionately affect any one group of individuals. Performed By: #### L [id number] #### [facility] ([facility]) [address] [place] [address] Glucose [Mass/Vol] 266 mg/dL High 70-100 [facility] Comment on above: Performed By: #### L [id number] #### [facility] ([facility]) [address] [place] [address] Potassium [Moles/Vol] 5.1 mmol/L Normal 3.5-5.1 [facility] Comment on above: Performed By: #### L [id number] #### [facility] ([facility]) [address] [place] [address] Sodium [Moles/Vol] 130 mmol/L Low 136-145 [facility] Comment on above: Performed By: #### L [id number] #### [facility] ([facility]) [address] [place] [address] Urea nitrogen [Mass/Vol] 29 mg/dL High 7-25 [facility] Comment on above: Performed By: #### L [id number] #### [facility] ([facility]) [address] [place] [address] UREA NITROGEN/CREATININE (MASS RATIO) IN SER/PLAS 15.6 Normal [facility] Comment on above: Performed By: #### L [id number] #### [facility] ([facility]) [address] [place] [address] Anion gap [Moles/Vol] 10 mmol/L Normal 7-20 [facility] Comment on above: Performed By: #### L [id number] #### [facility] ([facility]) [address] [place] [address] Calcium [Mass/Vol] 8.3 mg/dL Low 8.6-10.3 [facility] Comment on above: Performed By: #### L [id number] #### [facility] [address] [place] [address] Chloride [Moles/Vol] 108 mmol/L High 98-107 [facility] Comment on above: Performed By: #### L [id number] #### [facility] ([facility] [address] [place] [address] CO2 [Moles/Vol] 22 mmol/L Normal 21-31 [facility] Comment on above: Performed By: #### L [id number] #### [facility] ([facility]) [address] [place] [address] Creatinine [Mass/Vol] 1.76 mg/dL High 0.70-1.30 [facility] Comment on above: Performed By: #### L [id number] #### [facility] ([facility]) [address] [place] [address] GLOMERULAR FILTRATION RATE ML/MIN/1.73 SQ M.PREDICTED 39.6 mL/min/1.73m*2 Low >60.0 [facility] Comment on above: Result Comment: The [facility]???s estimated glomerular filtration rate (eGFR) will no longer include consideration of race in its calculation. The National Kidney Foundation???s eGFR Task Force developed new recommendations for the estimation of the glomerular filtration rate in the [place] They recommend immediate implementation of the new equation refit without the race variable in all laboratories because the calculation does not include race. In addition to not including race in the calculation and reporting, it included diversity in its development, and has acceptable performance characteristics and potential consequences that do not disproportionately affect any one group of individuals. Performed By: #### L [id number] #### [facility] ([facility]) [address] [place] [address] Glucose [Mass/Vol] 178 mg/dL High 70-100 [facility] Comment on above: Performed By: #### L [id number] #### [facility] ([facility]) [address] [place] [address] Potassium [Moles/Vol] 5.2 mmol/L High 3.5-5.1 [facility] Comment on above: Performed By: #### L [id number] #### [facility] [address] [place] [address] Sodium [Moles/Vol] 135 mmol/L Low 136-145 [facility] Comment on above: Performed By: #### L [id number] #### [facility] [address] [place] [address] Urea nitrogen [Mass/Vol] 26 mg/dL High 7-25 [facility] Comment on above: Performed By: #### L [id number] #### [facility] ([facility]) [address] [place] [address] UREA NITROGEN/CREATININE (MASS RATIO) IN SER/PLAS 14.8 Normal [facility] Comment on above: Performed By: #### L [id number] #### [facility] ([facility]) [address] [place] [address] CBCon 06-12-2024 Erythrocyte distribution width (RBC) [Ratio] 12.9 % Normal 11.5-15.0 [facility] Comment on above: Performed By: #### L [id number] ####[facility] ([facility])[address] [place] [address] ERYTHROCYTE MEAN CORPUSCULAR HEMOGLOBIN CONCENTRATION (G/DL) BY AUTOMATED 33.2 g/dL Normal 32.0-35.0 [facility] Comment on above: Performed By: #### L [id number] ####[facility] ([facility])[address] [place] [address] Hematocrit (Bld) [Volume fraction] 28.3 % Low 39.0-55.0 [facility] Comment on above: Performed By: #### L [id number] ####[facility] ([facility] [place] [address] Hemoglobin (Bld) [Mass/Vol] 9.4 g/dL Low 13.0-17.0 [facility] Comment on above: Performed By: #### L [id number] ####[facility] ([facility] [place] [address] MCH (RBC) [Entitic mass] 29.8 pg Normal 27.0-33.0 [facility] Comment on above: Performed By: #### L [id number] ####[facility] ([facility])[address] [place] [address] MCV (RBC) [Entitic vol] 89.8 fL Normal 82.0-98.0 [facility] Comment on above: Performed By: #### L [id number] ####[facility] ([facility])[address] [place] [address] PLATELETS (10*3/UL) IN BLOOD AUTOMATED COUNT 171 10*3/uL Normal 150-400 [facility] Comment on above: Performed By: #### L [id number] ####[facility] ([facility] [place] [address] RBC (Bld) [#/Vol] 3.15 10*6/uL Low 4.20-5.70 [facility] Comment on above: Performed By: #### L [id number] ####[facility] ([facility] [place] [address] WBC (Bld) [#/Vol] 15.42 10*3/uL High 4.00-10.60 [facility] Comment on above: Performed By: #### L [id number] ####[facility] ([facility])[address] [place] [address] CT HEAD WO IV CONTRASTon CT HEAD WO IV CONTRAST CLINICAL INFORMAT ION: Unsteady gait, atrial fibrillation. CVA. COMPARISON: None. PROCEDURE: Routine CT Head obtained without contrast. Automated exposure control was utilized. All CT scans at this facility use dose modulation, iterative reconstruction, and/or weight based dosing when appropriate to reduce radiation dose to as low as reasonably achievable. FINDINGS: No acute intracranial hemorrhage. No mass effect or midline shift. No extra-axial fluid collections. The ventricles and sulci are prominent consistent with global atrophy. Low-attenuation areas identified in the periventricular white matter consistent with microvascular ischemia. No depressed calvarial fracture. IMPRESSION: * No acute intracranial abnormality is identified. Electronically signed: Luiz Ridley MD. 9 Invalid Interpretation Code [facility] H. PYLORI ANTIGEN, STOOLon 1 08-12-2023 HELICOBACTER PYLORI AG PRESENCE IN STOOL BY IMMUNOASSAY Negative Normal Negative [facility] Comment on above: Performed By: #### L [id number] #### [facility] ([facility]) [address] [place] [address] MAGNESIUMon 06-12-2024 Magnesium [Mass/Vol] 2.1 mg/dL Normal 1.9-2.7 [facility] Comment on above: Performed By: #### L [id number] ####[facility] ([facility])[address] [place] [address] POCT GLUCOSE METER UNSOLICIT ED RESULTSon 06-12-2024 Glucose [Mass/Vol] 276 mg/dL High 70-105 [facility] Comment on above: Order Comment: Waive d Testing in the ED is performed under the ED CLIA certificate #[id number]. Result Comment: ebeg in Performed By: #### L [id number] #### [facility] ([facility]) [address] [place] [address] Glucose [Mass/Vol] 273 mg/dL High 70-105 [facility] Comment on above: Order Comment: Waive d Testing in the ED is performed under the ED CLIA certificate #[id number]. Result Comment: [email or web address] Performed By: #### L [id number] #### [facility] ([facility]) [address] [place] [address] Glucose [Mass/Vol] 274 mg/dL High 70-105 [facility] Comment on above: Order Comment: Waive d Testing in the ED is performed under the ED CLIA certificate #[id number]. Result Comment: [email or web address] Performed By: #### L [id number] ####[facility] ([facility])[address] [facility] [address] Glucose [Mass/Vol] 195 mg/dL High 70-105 [facility] Comment on above: Order Comment: Waive d Testing in the ED is performed under the ED CLIA certificate #[id number]. Result Comment: ebeg in Performed By: #### L [id number] #### [facility] ([facility]) [address] [place] [address] Glucose [Mass/Vol] 325 mg/dL High 70-105 [facility] Comment on above: Order Comment: Waive d Testing in the ED is performed under the ED CLIA certificate #[id number]. Result Comment: [email or web address] Performed By: #### L [id number] #### [facility] ([facility]) [address] [place] [address] 30on 06-11-2024 30 The patient is Moder ately Stable - Low risk of patient condition declining or worsening The patient's goals for the shift include comfort, rest The clinical goals for the shift include stable vitals, safety Problem: Pain - Adult Goal: Verbalizes/displays adequate comfort level or baseline comfort level Outcome: Progressing Problem: Safety - Adult Goal: Free from fall injury Outcome: Progressing Problem: Chronic Conditions and Co-morbidities Goal: Patient's chronic conditions and co-morbidity symptoms are monitored and maintained or improved Outcome: Progressing [facility] 30 Daily Case Managemen t Update Multidisciplinary rounds have been completed. Barriers to Discharge: Patient went for Pacemaker this morning, and then went for EGD this afternoon. Discharge dispo: PT/OT ordered, evals pending. Patient is from home with goal to return home pending evals. Diet: Dietary Orders (From admission, onward) Start Ordered 06/11/24 1600 Regular Diet Heart Healthy/HTN, CABG,Stroke, (2gNA, low fat, low cholesterol) Diet effective now Question Answer Comment Room Service? Yes Fat restriction: Heart Healthy/HTN, CABG,Stroke, (2gNA, low fat, low cholesterol) 06/11/24 1559 Physician Expected Discharge Date: 06/12/2024 Discharge Delays: PT Six Click Score: 24 OT Six Click Score: PT Recommendations: OT Recommendations: New Consults: Consult Orders (From admission, onward) Start Ordered 06/09/242007 Inpatient consult to Cardiology Once Specialty: Cardiology Provider: (Not yet assigned) Question Answer Comment Consulting Group CARDIOLOGY TEAM Reason for Consult? bradycardia and rhythm pauses > 3 sec, pending AICD/Pacemaker placement Level of Consultation Consultation and Management 06/09/242007 [facility] 30 The patient is Moder ately Stable - Low risk of patient condition declining or worsening The patient's goals for the shift include Get pacemaker The clinical goals for the shift include Hemodynamically stable, VSS, comfort, rest Over the shift, the patient did not make progress toward the following goals. Barriers to progression include EGD. Recommendations to address these barriers include EGD. Problem: Pain - Adult Goal: Verbalizes/displays adequate comfort level or baseline comfort level Outcome: Progressing Problem: Safety - Adult Goal: Free from fall injury Outcome: Progressing Flowsheets (Taken 06/11/2024722) Free from fall injury: Assess patient frequently for physical needs Problem: Discharge Planning Goal: Discharge to home or other facility with appropriate resources Outcome: Progressing Flowsheets (Taken 06/11/2024722) Discharge to home or other facility with appropriate resources: Identify barriers to discharge with patient and caregiver Problem: Chronic Conditions and Co-morbidities Goal: Patient's chronic conditions and co-morbidity symptoms are monitored and maintained or improved Outcome: Progressing Flowsheets (Taken 06/11/2024722) Care Plan - Patient's Chronic Conditions and Co-Morbidity Symptoms are Monitored and Maintained or Improved: Monitor and assess patient's chronic conditions and comorbid symptoms for stability, deterioration, or improvement Problem: Cardiovascular - Adult Goal: Maintains optimal cardiac output and hemodynamic stability Outcome: Progressing Flowsheets (Taken 06/11/2024722) Maintains optimal cardiac output and hemodynamic stability: Monitor blood pressure and heart rate Goal: Absence of cardiac dysrhythmias or at baseline Outcome: Progressing Flowsheets (Taken 06/11/2024722) Absence of cardiac dysrhythmias or at baseline: Monitor cardiac rate and rhythm Problem: Metabolic/Fluid and Electrolytes - Adult Goal: Electrolytes maintained within normal limits Outcome: Progressing Flowsheets (Taken 06/11/2024722) Electrolytes maintained within normal limits: Monitor labs and assess patient for signs and symptoms of electrolyte imbalances Goal: Hemodynamic stability and optimal renal function maintained Outcome: Progressing Flowsheets (Taken 06/11/2024722) Hemodynamic stability and optimal renal function maintained: Monitor labs and assess for signs and symptoms of volume excess or deficit Goal: Glucose maintained within prescribed range Outcome: Progressing Flowsheets (Taken 06/11/2024722) Glucose maintained within prescribed range: Monitor blood glucose as ordered Normal [facility] BASIC METABOLIC PANELon 11-2 Anion gap [Moles/Vol] 10 mmol/L Normal 7-20 [facility] Comment on above: Performed By: #### L [id number] ####[facility] ([facility] [place] [address] Calcium [Mass/Vol] 8.4 mg/dL Low 8.6-10.3 [facility] Comment on above: Performed By: #### L [id number] ####[facility] ([facility] [place] [address] Chloride [Moles/Vol] 108 mmol/L High 98-107 [facility] Comment on above: Performed By: #### L [id number] ####[facility] ([facility] [place] [address] CO2 [Moles/Vol] 24 mmol/L Normal 21-31 [facility] Comment on above: Performed By: #### L [id number] ####[facility] ([facility] [place] [address] Creatinine [Mass/Vol] 1.61 mg/dL High 0.70-1.30 [facility] Comment on above: Performed By: #### L [id number] ####[facility] ([facility])[address] [place] [address] GLOMERULAR FILTRATION RATE ML/MIN/1.73 SQ M.PREDICTED 44.0 mL/min/1.73m*2 Low >60.0 [facility] Comment on above: Result Comment: The [facility]???s estimated glomerular filtration rate (eGFR) will no longer include consideration of race in its calculation. The [employer]???s eGFR Task Force developed new recommendations for the estimation of the glomerular filtration rate in the [place] They recommend immediate implementation of the new equation refit without the race variable in all laboratories because the calculation does not include race. In addition to not including race in the calculation and reporting, it included diversity in its development, and has acceptable performance characteristics and potential consequences that do not disproportionately affect any one group of individuals. Performed By: #### L [id number] ####[facility] ([facility])[address] [place] [address] Glucose [Mass/Vol] 69 mg/dL Low 70-100 [facility] Comment on above: Performed By: #### L [id number] ####[facility] ([facility])[address] [place] [address] Potassium [Moles/Vol] 4.7 mmol/L Normal 3.5-5.1 [facility] Comment on above: Performed By: #### L [id number] ####[facility] ([facility])[address] [place] [address] Sodium [Moles/Vol] 137 mmol/L Normal 136-145 [facility] Comment on above: Performed By: #### L [id number] ####[facility] ([facility])[address] [place] [address] Urea nitrogen [Mass/Vol] 24 mg/dL Normal 7-25 [facility] Comment on above: Performed By: #### L [id number] ####[facility] ([facility])[address] [place] [address] UREA NITROGEN/CREATININE (MASS RATIO) IN SER/PLAS 14.9 Normal [facility] Comment on above: Performed By: #### L [id number] ####[facility] ([facility])[address] [place] [address] CBCon 06-11-2024 Erythrocyte distribution width (RBC) [Ratio] 13.0 % Normal 11.5-15.0 [facility] Comment on above: Performed By: #### L [id number] #### [facility] ([facility]) [address] [place] [address] ERYTHROCYTE MEAN CORPUSCULAR HEMOGLOBIN CONCENTRATION (G/DL) BY AUTOMATED 32.7 g/dL Normal 32.0-35.0 [facility] Comment on above: Performed By: #### L [id number] #### [facility] ([facility]) [address] [place] [address] Hematocrit (Bld) [Volume fraction] 27.5 % Low 39.0-55.0 [facility] Comment on above: Performed By: #### L [id number] #### [facility] ([facility]) [address] [place] [address] Hemoglobin (Bld) [Mass/Vol] 9.0 g/dL Low 13.0-17.0 [facility] Comment on above: Performed By: #### L [id number] #### [facility] ([facility]) [address] [place] [address] MCH (RBC) [Entitic mass] 30.1 pg Normal 27.0-33.0 [facility] Comment on above: Performed By: #### L [id number] #### [facility] ([facility]) [address] [place] [address] MCV (RBC) [Entitic vol] 92.0 fL Normal 82.0-98.0 [facility] Comment on above: Performed By: #### L [id number] #### [facility] ([facility]) [address] [place] [address] PLATELETS (10*3/UL) IN BLOOD AUTOMATED COUNT 173 10*3/uL Normal 150-400 [facility] Comment on above: Performed By: #### L [id number] #### [facility] ([facility]) [address] [place] [address] RBC (Bld) [#/Vol] 2.99 10*6/uL Low 4.20-5.70 [facility] Comment on above: Performed By: #### L [id number] #### [facility] ([facility]) [address] [place] [address] WBC (Bld) [#/Vol] 16.29 10*3/uL High 4.00-10.60 [facility] Comment on above: Performed By: #### L [id number] #### [facility] ([facility]) [address] [place] [address] HPon 06-11-2024 HP H&P reviewed. The pa tient was examined and there are no changes to the H&P. S/p pacemaker placement today. Will proceed to diagnostic EGD Normal [facility] HP History Of Present I mirta Morejon is a 78 y.o. male presenting with bradycardia. Past Medical History He has a past medical history of Carotid artery stenosis, Chronic kidney disease, Coronary artery disease, Diabetes mellitus (CMS/HCC), Hyperlipidemia, Hypertension, Myocardial infarction (CMS/HCC), and PAD (peripheral artery disease) (CMS/[facility]). Surgical History He has a past surgical history that includes Cardiac catheterization; Coronary stent placement; Cholecystectomy; and Peripheral arterial stent graft. Social History He reports that he has been smoking cigarettes. He has never used smokeless tobacco. He reports that he does not currently use alcohol. No history on file for drug use. Allergies Patient has no known allergies. Medications Medications Prior to Admission Medication Sig Dispense Refill Last Dose amLODIPine (Norvasc) 10 mg tablet Take 1 tablet by mouth in the morning. 06/08/2024 aspirin 81 mg chewable tablet Chew 81 mg. 06/09/2024 bumetanide (Bumex) 1 mg tablet Take 1 tablet (1 mg) by mouth in the morning. 90 tablet 3 06/08/2024 cholecalciferol (Vitamin D-3) 25 MCG (1000 units) tablet Take 2,000 Units by mouth in the morning. 06/08/2024 clopidogrel (Plavix) 75 mg tablet Take 75 mg by mouth in the morning. 06/08/2024 coenzyme Q-10 100 mg capsule Take 100 mg by mouth in the morning. 06/08/2024 insulin glargine (Lantus) 100 unit/mL injection vial Inject 52 Units under the skin in the morning. 06/09/2024 losartan (Cozaar) 50 mg tablet Take 1 tablet (50 mg) by mouth once daily as directed. 90 tablet 3 06/08/2024 magnesium 250 mg tablet Take 1 tablet by mouth in the morning. 06/08/2024 metFORMIN (Glucophage) 500 mg tablet Take 500 mg by mouth with breakfast. 06/08/2024 mv-min/folic/K1/lycopen/lut ein (CENTRUM SILVER ULTRA MEN'S ORAL) Take 1 tablet by mouth in the morning. 06/08/2024 primidone (Mysoline) 50 mg tablet Take 50 mg by mouth in the morning. 06/08/2024 rivaroxaban (Xarelto) 20 mg tablet Take 1 tablet (20 mg) by mouth daily with evening meal. Take with food. 90 tablet 3 06/08/2024 rosuvastatin (Crestor) 20 mg tablet Take 1 tablet (20 mg) by mouth at bedtime. 90 tablet 3 06/08/2024 apixaban (Eliquis) 5 mg tablet Take 5 mg by mouth two times daily. Brilinta 90 mg tablet Take 90 mg by mouth two times daily. clopidogrel (Plavix) 75 mg tablet Take 4 tablets (300 mg) by mouth in the morning for 1 day, THEN 1 tablet (75 mg) in the morning. 364 tablet 0 gabapentin (Neurontin) 300 mg capsule Take 300 mg by mouth three times daily. lisinopril 20 mg tablet Take 20 mg by mouth in the morning. potassium gluconate 595 mg (99 mg) tablet extended release Take 595 mg by mouth in the morning. rosuvastatin (Crestor) 40 mg tablet Take 20 mg by mouth in the evening. Review of Systems Physical Exam Last Recorded Vitals Blood pressure (!) 138/49, pulse (!) 37, temperature 35.1 ???C (95.2 ???F), temperature source Temporal, resp. rate 17, height 1.727 m (5' 8 ), weight 70.9 kg (156 lb 6.4 oz), SpO2 98%. Relevant Results bradycardia Assessment/Plan Principal Problem: GI bleed Active Problems: Sinus node dysfunction (CMS/HCC) Pacemaker Adriano Martell MD [facility] MAGNESIUMon 06-11-2024 Magnesium [Mass/Vol] 2.1 mg/dL Normal 1.9-2.7 [facility] Comment on above: Performed By: #### L [id number] ####[facility] ([facility])[address] [place] [address] NURSNOTEon 06-11-2024 NURSNOTE May resume a Regular Diet. Continue with PPI treatment as ordered. May continue medications as ordered by admitting physician. Normal [facility] NURSNOTE EGD Findings: Duoden al Erosions Normal [facility] NURSNOTE Patient off floor at 1500 for EGD. Patient back on floor at 1700. Normal [facility] NURSNOTE Patient off floor at EP Lab at 0842. Patient back on floor at 1030. Normal [facility] POCT GLUCOSE METER UNSOLICIT ED RESULTSon 06-11-2024 Glucose [Mass/Vol] 135 mg/dL High 70-105 [facility] Comment on above: Order Comment: Waive d Testing in the ED is performed under the ED CLIA certificate #[id number]. Result Comment: acar [email or web address] Performed By: #### L [id number] ####[facility] ([employer])[address] [place] [address] Glucose [Mass/Vol] 84 mg/dL Normal 70-105 [facility] Comment on above: Order Comment: Waive d Testing in the ED is performed under the ED CLIA certificate #[id number]. Result Comment: iseg [email or web address] Performed By: #### L [id number] #### [facility] ([employer] [address] [place] [address] Glucose [Mass/Vol] 84 mg/dL Normal 70-105 [facility] Comment on above: Order Comment: Waive d Testing in the ED is performed under the ED CLIA certificate #[id number]. Result Comment: dspe ars Performed By: #### L [id number] ####[facility] ([employer] [place] [address] Glucose [Mass/Vol] 71 mg/dL Normal 70-105 [facility] Comment on above: Order Comment: Waive d Testing in the ED is performed under the ED CLIA certificate #[id number]. Result Comment: iseg ura2 Performed By: #### L [id number] #### [facility] ([employer] [address] [place] [address] Glucose [Mass/Vol] 86 mg/dL Normal 70-105 [facility] Comment on above: Order Comment: Waive d Testing in the ED is performed under the ED CLIA certificate #[id number]. Result Comment: iseg [email or web address] Performed By: #### L [id number] #### [facility] ([facility]) [address] [place] [address] Glucose [Mass/Vol] 82 mg/dL Normal 70-105 [facility] Comment on above: Order Comment: Waive d Testing in the ED is performed under the ED CLIA certificate #[id number]. Result Comment: ebeg in Performed By: #### L [id number] #### [facility] ([facility]) [address] [place] [address] Glucose [Mass/Vol] 77 mg/dL Normal 70-105 [facility] Comment on above: Order Comment: Waive d Testing in the ED is performed under the ED CLIA certificate #[id number]. Result Comment: twys e3 Performed By: #### L [id number] #### [facility] ([facility]) [address] [facility] [place] [address] TROPONIN Ion 06-11-2024 Troponin I.cardiac [Mass/Vol] 0.02 ng/mL Normal 0.00-0.04 [facility] Comment on above: Performed By: #### L [id number] ####[facility] ([facility])[address] [place] [address] 30on 06-10-2024 30 The patient is Moder ately Stable - Low risk of patient condition declining or worsening The patient's goals for the shift include comfort, rest The clinical goals for the shift include stable vitals, safety Problem: Pain - Adult Goal: Verbalizes/displays adequate comfort level or baseline comfort level Outcome: Progressing Problem: Safety - Adult Goal: Free from fall injury Outcome: Progressing Problem: Chronic Conditions and Co-morbidities Goal: Patient's chronic conditions and co-morbidity symptoms are monitored and maintained or improved Outcome: Progressing Normal [facility] 30 Daily Case Managemen t Update Multidisciplinary rounds have been completed. Barriers to Discharge: Patient is a transfer [facility] due to drop in hgb and bradycardia. GI consulted for posthemorrhagic anemia GI bleed. Patient placed on protonix gtt, plan to continue to trend Hgb. Plan to coordinate with Cardiology on optimizing patient HR before endoscopic eval. Discharge dispo: Patient is from home, with plans to discharge home when medically ready. Diet: Dietary Orders (From admission, onward) Start Ordered 06/10/24 0001 Diet NPO Diet effective midnight Comments: No exceptions Question: Reason for NPO: Answer: Altered Mental Status 06/09/241848 Physician Expected Discharge Date: 06/12/2024 Discharge Delays: PT Six Click Score: 24 OT Six Click Score: PT Recommendations: OT Recommendations: New Consults: Consult Orders (From admission, onward) Start Ordered 06/09/242117 Inpatient consult to Cardiology Once Specialty: Cardiology Provider: (Not yet assigned) Question Answer Comment Consulting Group CARDIOLOGY TEAM Reason for Consult? off anticoaglationand antiplatlet meds due to gi bleed Level of Consultation Consultation and Management 06/09/24211906/09/242007 Inpatient consult to Cardiology Once Specialty: Cardiology Provider: (Not yet assigned) Question Answer Comment Consulting Group CARDIOLOGY TEAM Reason for Consult? bradycardia and rhythm pauses > 3 sec, pending AICD/Pacemaker placement Level of Consultation Consultation and Management 06/09/242007 Normal [facility] 30 The patient is Moder ately Stable - Low risk of patient condition declining or worsening The patient's goals for the shift include Get pacemaker The clinical goals for the shift include Hemodynamically stable, VSS, monitor HR and rhythym, comfort. Over the shift, the patient did not make progress toward the following goals. Barriers to progression include asymptomatic bradycardia, need for pacemaker, and new onset GI bleed. Recommendations to address these barriers include pacemaker and scope. Problem: Cardiovascular - Adult Goal: Maintains optimal cardiac output and hemodynamic stability Outcome: Not Progressing Flowsheets (Taken 06/10/2024 1345) Maintains optimal cardiac output and hemodynamic stability: Monitor blood pressure and heart rate Goal: Absence of cardiac dysrhythmias or at baseline Outcome: Not Progressing Problem: Metabolic/Fluid and Electrolytes - Adult Goal: Electrolytes maintained within normal limits Outcome: Not Progressing Problem: Metabolic/Fluid and Electrolytes - Adult Goal: Hemodynamic stability and optimal renal function maintained Outcome: Progressing Goal: Glucose maintained within prescribed range Outcome: Progressing Normal [facility] 36on 06-10-2024 36 ERROR-NO TELEPHONE C ALL MADE. Normal [facility] CBC WITH AUTO DIFFERENTIALon 06-10-2024 Erythrocyte distribution width (RBC) [Ratio] 12.9 % Normal 11.5-15.0 [facility] Comment on above: Performed By: #### L [id number] #### [facility] ([facility]) [address] [place] [address] ERYTHROCYTE MEAN CORPUSCULAR HEMOGLOBIN CONCENTRATION (G/DL) BY AUTOMATED 33.3 g/dL Normal 32.0-35.0 [facility] Comment on above: Performed By: #### L [id number] #### [facility] ([facility]) [address] [place] [address] Hematocrit (Bld) [Volume fraction] 26.1 % Low 39.0-55.0 [facility] Comment on above: Performed By: #### L [id number] #### [facility] ([facility]) [address] [place] [address] Hemoglobin (Bld) [Mass/Vol] 8.7 g/dL Low 13.0-17.0 [facility] Comment on above: Performed By: #### L [id number] #### [facility] ([facility]) [address] [place] [address] MCH (RBC) [Entitic mass] 30.4 pg Normal 27.0-33.0 [facility] Comment on above: Performed By: #### L [id number] #### [facility] ([facility]) [address] [place] [address] MCV (RBC) [Entitic vol] 91.3 fL Normal 82.0-98.0 [facility] Comment on above: Performed By: #### L [id number] #### [facility] ([facility]) [address] [place] [address] NRBC (PER 100 WBCS) BY AUTOMATED COUNT 0.0 % Normal 0 [facility] Comment on above: Performed By: #### L [id number] #### [facility] ([facility]) [address] [place] [address] PLATELETS (10*3/UL) IN BLOOD AUTOMATED COUNT 160 10*3/uL Normal 150-400 [facility] Comment on above: Performed By: #### L [id number] #### [facility] ([facility] [address] [place] [address] RBC (Bld) [#/Vol] 2.86 10*6/uL Low 4.20-5.70 [facility] Comment on above: Performed By: #### L [id number] #### [facility] ([facility] [address] [place] [address] WBC (Bld) [#/Vol] 16.29 10*3/uL High 4.00-10.60 [facility] Comment on above: Performed By: #### L [id number] #### [facility] ([facility]) [address] [place] [address] COMPREHENSIVE METABOLIC PANE [facility] 06-10-2024 Albumin [Mass/Vol] 3.4 g/dL Low 3.5-5.7 [facility] Comment on above: Performed By: #### L [id number] ####[facility] ([facility])[address] [place] [address] ALP [Catalytic activity/Vol] 62 U/L Normal 34-104 [facility] Comment on above: Performed By: #### L [id number] ####[facility] ([facility])[address] [place] [address] ALT [Catalytic activity/Vol] 9 U/L Normal 7-52 [facility] Comment on above: Performed By: #### L [id number] ####[facility] ([facility])[address] [place] [address] Anion gap [Moles/Vol] 9 mmol/L Normal 7-20 [facility] Comment on above: Performed By: #### L [id number] ####[facility] ([facility])[address] [place] [address] AST [Catalytic activity/Vol] 15 U/L Normal 13-39 [facility] Comment on above: Performed By: #### L [id number] ####[facility] ([facility])[address] [place] [address] Bilirubin [Mass/Vol] 0.8 mg/dL Normal 0.3-1.0 [facility] Comment on above: Performed By: #### L [id number] ####[facility] ([facility])[address] [place] [address] Calcium [Mass/Vol] 8.7 mg/dL Normal 8.6-10.3 [facility] Comment on above: Performed By: #### L [id number] ####[facility] ([facility])[address] [place] [address] Chloride [Moles/Vol] 108 mmol/L High 98-107 [facility] Comment on above: Performed By: #### L [id number] ####[facility] ([facility])[address] [place] [address] CO2 [Moles/Vol] 24 mmol/L Normal 21-31 [facility] Comment on above: Performed By: #### L [id number] ####[facility] ([facility])[address] [place] [address] Creatinine [Mass/Vol] 1.22 mg/dL Normal 0.70-1.30 [facility] Comment on above: Performed By: #### L [id number] ####[facility] ([facility])[address] [place] [address] GLOMERULAR FILTRATION RATE ML/MIN/1.73 SQ M.PREDICTED 61.4 mL/min/1.73m*2 Normal >60.0 [facility] Comment on above: Result Comment: The [facility]???s estimated glomerular filtration rate (eGFR) will no longer include consideration of race in its calculation. The National Kid[employer] Foundation???s eGFR Task Force developed new recommendations for the estimation of the glomerular filtration rate in the [place] They recommend immediate implementation of the new equation refit without the race variable in all laboratories because the calculation does not include race. In addition to not including race in the calculation and reporting, it included diversity in its development, and has acceptable performance characteristics and potential consequences that do not disproportionately affect any one group of individuals. Performed By: #### L [id number] ####[facility] ([facility])[address] [place] [address] Glucose [Mass/Vol] 70 mg/dL Normal 70-100 [facility] Comment on above: Performed By: #### L [id number] ####[facility] ([facility])[address] [place] [address] Potassium [Moles/Vol] 4.5 mmol/L Normal 3.5-5.1 [facility] Comment on above: Performed By: #### L [id number] ####[facility] ([facility])[address] [place] [address] Protein [Mass/Vol] 5.2 g/dL Low 6.0-8.3 [facility] Comment on above: Performed By: #### L [id number] ####[facility] ([facility])[address] [place] [address] Sodium [Moles/Vol] 136 mmol/L Normal 136-145 [facility] Comment on above: Performed By: #### L [id number] ####[facility] ([facility])[address] [place] [address] Urea nitrogen [Mass/Vol] 24 mg/dL Normal 7-25 [facility] Comment on above: Performed By: #### L [id number] ####[facility] ([facility])[address] [place] [address] UREA NITROGEN/CREATININE (MASS RATIO) IN SER/PLAS 19.7 Normal [facility] Comment on above: Performed By: #### L [id number] ####[facility] ([facility])[address] [place] [address] CONSULTon 06-10-2024 CONSULT ------- Attestation signed by Hao Cardona MD at 06/10/2024 7:48 PM By using the attestations below, the signing clinician agrees that I have read and verify that the documentation has been personally reviewed by me and ensure that the documentation accurately reflects the encounter. GC: I personally saw this patient on the day of the encounter, performed the hurtado portion(s) of the service and participated in the management and confirm the resident's documentation. Please note there may be an additional personal documentation from me. Additional Comments: Significant drop in hemoglobin since 04/2024 (12.1) to now 8.7 g/dL Needs endoscopy; anesthesia understandably concerned with low HR Will schedule for PPM tomorrow 06/[address] Martell Do not hold DAPT - given recent PCI/ADRIANO, he is at high risk for acute stent thrombosis if DAPT interrupted Will resume DOAC + Plavix once acceptable from a GI standpoint Hao Cardona MD, MPH, [facility], [facility], [facility] Interventional Cardiology Pager Email: [email or web address] Cardiology Consult Note Reason for Consult: bradycardia HPI: Ila Morejon is a 78 y.o. male with PMH of CAD status post PCI to RCA in April 2024, atrial fibrillation on Xarelto, sinus node dysfunction, symptomatic bradycardia and significant sinus pauses, hypertension, type 2 diabetes mellitus, EMMA, CLL, ckd 3a who presents to the hospital with 1 week of black tarry stools and concern for upper GI bleed. Drop in hemoglobin was found on outpatient blood work and patient was directed to come to the emergency department. In the ER significant drop in hemoglobin to 8.7. Patient denies any chest pain, shortness of breath, palpitations, syncope. He does endorse increasing chills and dizziness. He has outpatient workup done with Dr. Dunn and plans for PPM insertion on 11/25 due to sinus node dysfunction. In the ER, heart rate 40, blood pressure 169/50. EKG with sinus bradycardia. Cardiology ROS: Negative except as mentioned. Past Medical History He has a past medical history of Carotid artery stenosis, Chronic kidney disease, Coronary artery disease, Diabetes mellitus (CMS/HCC), Hyperlipidemia, Hypertension, Myocardial infarction (CMS/HCC), and PAD (peripheral artery disease) ([facility]). Surgical History He has a past surgical history that includes Cardiac catheterization; Coronary stent placement; Cholecystectomy; and Peripheral arterial stent graft. Social History He reports that he has been smoking cigarettes. He has never used smokeless tobacco. He reports that he does not currently use alcohol. No history on file for drug use. Family History No family history on file. Allergies Patient has no known allergies. Medications Current Outpatient Medications Medication Instructions amLODIPine (Norvasc) 10 mg tablet 1 tablet, oral, Daily apixaban (ELIQUIS) 5 mg, oral, 2 times daily aspirin 81 mg, oral Brilinta 90 mg, oral, 2 times daily bumetanide (BUMEX) 1 mg, oral, Daily cholecalciferol (VITAMIN D-3) 2,000 Units, oral, Daily RT clopidogrel (Plavix) 75 mg tablet Take 4 tablets (300 mg) by mouth in the morning for 1 day, THEN 1 tablet (75 mg) in the morning. clopidogrel (PLAVIX) 75 mg, oral, Daily coenzyme Q-10 100 mg, oral, Daily gabapentin (NEURONTIN) 300 mg, oral, 3 times daily insulin glargine (LANTUS) 52 Units, subcutaneous, Every morning lisinopril 20 mg, oral, Daily losartan (COZAAR) 50 mg, oral, Once Daily magnesium 250 mg tablet 1 tablet, oral, Daily metFORMIN (GLUCOPHAGE) 500 mg, oral, Daily with breakfast mv-min/folic/K1/lycopen/lut ein (CENTRUM SILVER ULTRA MEN'S ORAL) 1 tablet, oral, Daily potassium gluconate 595 mg, oral, Daily RT primidone (MYSOLINE) 50 mg, oral, Daily rivaroxaban (XARELTO) 20 mg, oral, Daily with evening meal, Take with food. rosuvastatin (CRESTOR) 20 mg, oral, Every evening rosuvastatin (CRESTOR) 20 mg, oral, Nightly Medications Prior to Admission Medication Sig Dispense Refill Last Dose amLODIPine (Norvasc) 10 mg tablet Take 1 tablet by mouth in the morning. 06/08/2024 aspirin 81 mg chewable tablet Chew 81 mg. 06/09/2024 bumetanide (Bumex) 1 mg tablet Take 1 tablet (1 mg) by mouth in the morning. 90 tablet 3 06/08/2024 cholecalciferol (Vitamin D-3) 25 MCG (1000 units) tablet Take 2,000 Units by mouth in the morning. 06/08/2024 clopidogrel (Plavix) 75 mg tablet Take 75 mg by mouth in the morning. 06/08/2024 coenzyme Q-10 100 mg capsule Take 100 mg by mouth in the morning. 06/08/2024 insulin glargine (Lantus) 100 unit/mL injection vial Inject 52 Units under the skin in the morning. 06/09/2024 losartan (Cozaar) 50 mg tablet Take 1 tablet (50 mg) by mouth once daily as directed. 90 tablet 3 06/08/2024 magnesium 250 mg tab (more content not included)... [facility] CONSULT ------- Attestation signed by Vinayak Vaughan MD at 06/10/2024 12:07 PM By using the attestations below, the signing clinician agrees that I have read and verify that the documentation has been personally reviewed by me and ensure that the documentation accurately reflects the encounter. GC: I personally saw this patient on the day of the encounter, performed the hurtado portion(s) of the service and participated in the management and confirm the resident's documentation. Please note there may be an additional personal documentation from me. Initial Gastroenterology/Hepatology Consultation Note IDENTIFYING DATA PATIENT: Ila Morejon ADMIT DATE: 06/09/2024 TIME OF EVALUATION: 06/10/2024 10:02 AM Reason for Consult: gi bleed Admitting Physician: Bi Kohli MD HISTORY OF PRESENT ILLNESS Ila Morejon is a 78 y.o. male with a known past medical history significant for coronary artery disease s/p PCI placement last month on aspirin and Plavix for that, A-fib on Xarelto at home, hypertension and diabetes was transferred to the hospital from an outside ER due to abnormal hemoglobin level of 7.8. Patient mentioned that he was feeling more fatigued, tired, short of breath and cold over the last few days up to a week. Therefore, he went to an outside ER where his hemoglobin was found to be 7.8 g/dL. Baseline is known to be around 12 g/dL last month. Patient endorses black tarry stools for the last week. Denies any abdominal pain, nausea or vomiting. No hematochezia. No coffee-ground emesis or hematemesis. Patient denies taking NSAIDs but he is on aspirin, Plavix and DOAC. Upon admission: Patient is bradycardic with heart rate in the range of 30s-40s. Afebrile and normotensive. CBC is remarkable for a hemoglobin of 8.9. WBC of 15.83. CMP remarkable for creatinine of 1.36. Otherwise unremarkable. GI service was consulted for GI bleed. GI HISTORY SUMMARY TABLE Last EGD Last colonoscopy Primary GI physician PAST MEDICAL, SURGICAL, FAMILY, and SOCIAL HISTORY Past Medical History: Past Medical History: Diagnosis Date Carotid artery stenosis Chronic kidney disease Coronary artery disease Diabetes mellitus (CMS/HCC) Hyperlipidemia Hypertension Myocardial infarction (CMS/HCC) PAD (peripheral artery disease) ([facility]) Past Surgical History: Past Surgical History: Procedure Laterality Date CARDIAC CATHETERIZATION CHOLECYSTECTOMY CORONARY STENT PLACEMENT PERIPHERAL ARTERIAL STENT GRAFT Family History: No family history on file. Social History: Social History Tobacco Use Smoking status: Every Day Types: Cigarettes Smokeless tobacco: Never Substance Use Topics Alcohol use: Not Currently Allergies: No Known Allergies MEDICATIONS Home Medications: Prior to Admission medications Medication Sig Start Date End Date Taking? Authorizing Provider amLODIPine (Norvasc) 10 mg tablet Take 1 tablet by mouth in the morning. 03/30/24 Yes Historical Provider, aspirin 81 mg chewable tablet Chew 81 mg. 04/09/23 Yes Historical Provider, bumetanide (Bumex) 1 mg tablet Take 1 tablet (1 mg) by mouth in the morning. 05/27/24 Yes Fartun Barrios MD cholecalciferol (Vitamin D-3) 25 MCG (1000 units) tablet Take 2,000 Units by mouth in the morning. Yes Historical Provider, clopidogrel (Plavix) 75 mg tablet Take 75 mg by mouth in the morning. Yes Historical Provider, coenzyme Q-10 100 mg capsule Take 100 mg by mouth in the morning. Yes Historical Provider, insulin glargine (Lantus) 100 unit/mL injection vial Inject 52 Units under the skin in the morning. 01/02/21 Yes Historical Provider, losartan (Cozaar) 50 mg tablet Take 1 tablet (50 mg) by mouth once daily as directed. 05/11/24 Yes Fartun Barrios MD magnesium 250 mg tablet Take 1 tablet by mouth in the morning. Yes Historical Provider, metFORMIN (Glucophage) 500 mg tablet Take 500 mg by mouth with breakfast. 01/02/21 Yes Historical Provider, mv-min/folic/K1/lycopen/lut ein (CENTRUM SILVER ULTRA MEN'S ORAL) Take 1 tablet by mouth in the morning. Yes Historical Provider, primidone (Mysoline) 50 mg tablet Take 50 mg by mouth in the morning. Yes Historical Provider, rivaroxaban (Xarelto) 20 mg tablet Take 1 tablet (20 mg) by mouth daily with evening meal. Take with food. 05/11/24 Yes Fartun Barrios MD rosuvastatin (Crestor) 20 mg tablet Take 1 tablet (20 mg) by mouth at bedtime. 05/27/24 05/27/25 Yes Fartun Barrios MD apixaban (Eliquis) 5 mg tablet Take 5 mg by mouth two times daily. 04/29/24 Historical Provider, Brilinta 90 mg tablet Take 90 mg by mouth two times daily. Historical Provider, clopidogrel (Plavix) 75 mg tablet Take 4 tablets (300 mg) by mouth in the morning for 1 day, THEN 1 tablet (75 mg) in t (more content not included)... [facility] ------- Attestation signed by Vinayak Vaughan MD at 06/10/2024 12:07 PM By using the attestations below, the signing clinician agrees that I have read and verify that the documentation has been personally reviewed by me and ensure that the documentation accurately reflects the encounter. GC: I personally saw this patient on the day of the encounter, performed the hurtado portion(s) of the service and participated in the management and confirm the resident's documentation. Please note there may be an additional personal documentation from me. Initial Gastroenterology/Hepatology Consultation Note IDENTIFYING DATA PATIENT: Ila Morejon ADMIT DATE: 06/09/2024 TIME OF EVALUATION: 06/10/2024 10:02 AM Reason for Consult: gi bleed Admitting Physician: Bi Kohli MD HISTORY OF PRESENT ILLNESS Ila Morejon is a 78 y.o. male with a known past medical history significant for coronary artery disease s/p PCI placement last month on aspirin and Plavix for that, A-fib on Xarelto at home, hypertension and diabetes was transferred to the hospital from an outside ER due to abnormal hemoglobin level of 7.8. Patient mentioned that he was feeling more fatigued, tired, short of breath and cold over the last few days up to a week. Therefore, he went to an outside ER where his hemoglobin was found to be 7.8 g/dL. Baseline is known to be around 12 g/dL last month. Patient endorses black tarry stools for the last week. Denies any abdominal pain, nausea or vomiting. No hematochezia. No coffee-ground emesis or hematemesis. Patient denies taking NSAIDs but he is on aspirin, Plavix and DOAC. Upon admission: Patient is bradycardic with heart rate in the range of 30s-40s. Afebrile and normotensive. CBC is remarkable for a hemoglobin of 8.9. WBC of 15.83. CMP remarkable for creatinine of 1.36. Otherwise unremarkable. GI service was consulted for GI bleed. GI HISTORY SUMMARY TABLE Last EGD Last colonoscopy Primary GI physician PAST MEDICAL, SURGICAL, FAMILY, and SOCIAL HISTORY Past Medical History: Past Medical History: Diagnosis Date Carotid artery stenosis Chronic kidney disease Coronary artery disease Diabetes mellitus ([facility]) Hyperlipidemia Hypertension Myocardial infarction ([facility]) PAD (peripheral artery disease) ([facility]) Past Surgical History: Past Surgical History: Procedure Laterality Date CARDIAC CATHETERIZATION CHOLECYSTECTOMY CORONARY STENT PLACEMENT PERIPHERAL ARTERIAL STENT GRAFT Family History: No family history on file. Social History: Social History Tobacco Use Smoking status: Every Day Types: Cigarettes Smokeless tobacco: Never Substance Use Topics Alcohol use: Not Currently Allergies: No Known Allergies MEDICATIONS Home Medications: Prior to Admission medications Medication Sig Start Date End Date Taking? Authorizing Provider amLODIPine (Norvasc) 10 mg tablet Take 1 tablet by mouth in the morning. 03/30/24 Yes Historical Provider, aspirin 81 mg chewable tablet Chew 81 mg. 04/09/23 Yes Historical Provider, bumetanide (Bumex) 1 mg tablet Take 1 tablet (1 mg) by mouth in the morning. 05/27/24 Yes Fartun Barrios MD cholecalciferol (Vitamin D-3) 25 MCG (1000 units) tablet Take 2,000 Units by mouth in the morning. Yes Historical Provider, clopidogrel (Plavix) 75 mg tablet Take 75 mg by mouth in the morning. Yes Historical Provider, coenzyme Q-10 100 mg capsule Take 100 mg by mouth in the morning. Yes Historical Provider, insulin glargine (Lantus) 100 unit/mL injection vial Inject 52 Units under the skin in the morning. 01/02/21 Yes Historical Provider, losartan (Cozaar) 50 mg tablet Take 1 tablet (50 mg) by mouth once daily as directed. 05/11/24 Yes Fartun Barrios MD magnesium 250 mg tablet Take 1 tablet by mouth in the morning. Yes Historical Provider, metFORMIN (Glucophage) 500 mg tablet Take 500 mg by mouth with breakfast. 01/02/21 Yes Historical Provider, mv-min/folic/K1/lycopen/lut ein (CENTRUM SILVER ULTRA MEN'S ORAL) Take 1 tablet by mouth in the morning. Yes Historical Provider, primidone (Mysoline) 50 mg tablet Take 50 mg by mouth in the morning. Yes Historical Provider, rivaroxaban (Xarelto) 20 mg tablet Take 1 tablet (20 mg) by mouth daily with evening meal. Take with food. 05/11/24 Yes Fartun Barrios MD rosuvastatin (Crestor) 20 mg tablet Take 1 tablet (20 mg) by mouth at bedtime. 05/27/24 05/27/25 Yes Fartun Barrios MD apixaban (Eliquis) 5 mg tablet Take 5 mg by mouth two times daily. 04/29/24 Historical Provider, Brilinta 90 mg tablet Take 90 mg by mouth two times daily. Historical Provider, clopidogrel (Plavix) 75 mg tablet Take 4 tablets (300 mg) by mouth in the morning for 1 day, THEN 1 tablet (75 mg) in t (more content not included)... Normal [facility] MAGNESIUMon 06-10-2024 Magnesium [Mass/Vol] 2.7 mg/dL Normal 1.9-2.7 [facility] Comment on above: Performed By: #### L [id number] #### [facility] ([facility]) [address] [place] [address] MANUAL DIFFERENTIALon 2023 BASOPHILS (10*3/UL) IN BLOOD BY CALCULATION 0.07 10*3/uL Normal 0.00-0.20 [facility] Comment on above: Performed By: #### L [id number] #### [facility] ([facility]) [address] [place] [address] BASOPHILS/100 LEUKOCYTES IN BLOOD BY AUTOMATED COUNT 0.4 % Normal 0.0-1.0 [facility] Comment on above: Performed By: #### L [id number] #### [facility] ([facility]) [address] [place] [address] EOSINOPHILS (10*3/UL) IN BLOOD BY CALCULATION 0.29 10*3/uL Normal 0.00-0.50 [facility] Comment on above: Performed By: #### L [id number] #### [facility] ([facility]) [address] [place] [address] EOSINOPHILS/100 LEUKOCYTES IN BLOOD BY AUTOMATED COUNT 1.8 % Normal 0.0-6.0 [facility] Comment on above: Performed By: #### L [id number] #### [facility] ([facility]) [address] [facility] [address] IMMATURE GRANULOCYTES (10*3/UL) IN BLOOD BY CALCULATION 0.02 10*3/uL Normal 0.00-0.20 [facility] Comment on above: Performed By: #### L [id number] #### [facility] ([facility]) [address] [facility] [address] IMMATURE GRANULOCYTES/100 LEUKOCYTES IN BLOOD BY AUTOMATED COUNT 0.1 % Normal 0.0-1.0 [facility] Comment on above: Performed By: #### L [id number] #### [facility] ([facility]) [address] [place] [address] LYMPHOCYTES (10*3/UL) IN BLOOD BY CALCULATION 10.28 10*3/uL High 1.20-4.00 [facility] Comment on above: Performed By: #### L [id number] #### [facility] ([facility]) [address] [facility] [address] LYMPHOCYTES/100 LEUKOCYTES IN BLOOD BY AUTOMATED COUNT 63.1 % High 20.0-45.0 [facility] Comment on above: Performed By: #### L [id number] #### [facility] ([facility]) [address] [facility] [address] MONOCYTES (10*3/UL) IN BLOOD BY CALCUATION 0.54 10*3/uL Normal 0.10-1.00 [facility] Comment on above: Performed By: #### L [id number] #### [facility] ([facility]) [address] [facility] [address] MONOCYTES/100 LEUKOCYTES IN BLOOD BY AUTOMATED COUNT 3.3 % Low 5.0-12.0 [facility] Comment on above: Performed By: #### L [id number] #### [facility] ([facility]) [address] [place] [address] NEUTROPHILS (10*3/UL) IN BLOOD BY CALCULATION 5.1 10*3/uL Normal 1.6-7.6 [facility] Comment on above: Performed By: #### L [id number] #### [facility] ([facility]) [address] [place] [address] NEUTROPHILS/100 LEUKOCYTES IN BLOOD BY AUTOMATED COUNT 31.3 % Low 40.0-72.0 [facility] Comment on above: Performed By: #### L [id number] #### [facility] ([facility]) [address] [place] [address] POCT GLUCOSE METER UNSOLICIT ED RESULTSon 06-10-2024 Glucose [Mass/Vol] 141 mg/dL High 70-105 [facility] Comment on above: Order Comment: Waive d Testing in the ED is performed under the ED CLIA certificate #[id number]. Result Comment: [email or web address] [email or web address] Performed By: #### L [id number] #### [facility] ([facility]) [address] [place] [address] Glucose [Mass/Vol] 104 mg/dL Normal 70-105 [facility] Comment on above: Order Comment: Waive d Testing in the ED is performed under the ED CLIA certificate #[id number]. Result Comment: [email or web address] dic Performed By: #### L [id number] ####[facility] ([facility])[address] [place] [address] Glucose [Mass/Vol] 87 mg/dL Normal 70-105 [facility] Comment on above: Order Comment: Waive d Testing in the ED is performed under the ED CLIA certificate #[id number]. Result Comment: dane [email or web address] Performed By: #### L [id number] ####[facility] ([facility])[address] [place] [address] 30on 11-20-2024 30 The patient is Moder ately Stable - Low risk of patient condition declining or worsening The patient's goals for the shift include comfort, rest The clinical goals for the shift include stable vitals, safety Problem: Pain - Adult Goal: Verbalizes/displays adequate comfort level or baseline comfort level Outcome: Progressing Problem: Safety - Adult Goal: Free from fall injury Outcome: Progressing Problem: Chronic Conditions and Co-morbidities Goal: Patient's chronic conditions and co-morbidity symptoms are monitored and maintained or improved Outcome: Progressing Normal [facility] APTTon 06-09-2024 ACTIVATED PARTIAL THROMBOPLASTIN TIME IN PPP BY COAGULATION ASSAY 32.7 Seconds Normal 25.0-35.0 [facility] Comment on above: Result Comment: Clin ical significance of the APTT is questionable in the presence of heparin. Performed By: #### L [id number] ####[facility] ([facility])[address] [place] [address] CBC WITH AUTO DIFFERENTIALon 06-09-2024 Erythrocyte distribution width (RBC) [Ratio] 12.9 % Normal 11.5-15.0 [facility] Comment on above: Performed By: #### L [id number] #### [facility] ([facility]) [address] [place] [address] ERYTHROCYTE MEAN CORPUSCULAR HEMOGLOBIN CONCENTRATION (G/DL) BY AUTOMATED 33.3 g/dL Normal 32.0-35.0 [facility] Comment on above: Performed By: #### L [id number] #### [facility] ([facility]) [address] [place] [address] Hematocrit (Bld) [Volume fraction] 26.7 % Low 39.0-55.0 [facility] Comment on above: Performed By: #### L [id number] #### [facility] ([facility]) [address] [place] [address] Hemoglobin (Bld) [Mass/Vol] 8.9 g/dL Low 13.0-17.0 [facility] Comment on above: Performed By: #### L [id number] #### [facility] ([facility]) [address] [facility] [place] [address] MCH (RBC) [Entitic mass] 30.2 pg Normal 27.0-33.0 [facility] Comment on above: Performed By: #### L [id number] #### [facility] [address] [place] [address] MCV (RBC) [Entitic vol] 90.5 fL Normal 82.0-98.0 [facility] Comment on above: Performed By: #### L [id number] #### [facility] ([facility]) [address] [place] [address] NRBC (PER 100 WBCS) BY AUTOMATED COUNT 0.0 % Normal 0 [facility] Comment on above: Performed By: #### L [id number] #### [facility] ([facility]) [address] [place] [address] PLATELETS (10*3/UL) IN BLOOD AUTOMATED COUNT 166 10*3/uL Normal 150-400 [facility] Comment on above: Performed By: #### L [id number] #### [facility] ([facility]) [address] [place] [address] RBC (Bld) [#/Vol] 2.95 10*6/uL Low 4.20-5.70 [facility] Comment on above: Performed By: #### L [id number] #### [facility] [address] [place] [address] WBC (Bld) [#/Vol] 15.83 10*3/uL High 4.00-10.60 [facility] Comment on above: Performed By: #### L [id number] #### [facility] [address] [place] [address] COMPREHENSIVE METABOLIC PANE Woody 06-09-2024 Albumin [Mass/Vol] 3.6 g/dL Normal 3.5-5.7 [facility] Comment on above: Performed By: #### L [id number] #### [facility] ([facility] [address] [place] [address] ALP [Catalytic activity/Vol] 67 U/L Normal 34-104 [facility] Comment on above: Performed By: #### L [id number] #### [facility] ([facility] [address] [place] [address] ALT [Catalytic activity/Vol] 12 U/L Normal 7-52 [facility] Comment on above: Performed By: #### L [id number] #### [facility] ([facility]) [address] [place] [address] Anion gap [Moles/Vol] 9 mmol/L Normal 7-20 [facility] Comment on above: Performed By: #### L [id number] #### [facility] ([facility]) [address] [place] [address] AST [Catalytic activity/Vol] 14 U/L Normal 13-39 [facility] Comment on above: Performed By: #### L [id number] #### [facility] ([facility]) [address] [place] [address] Bilirubin [Mass/Vol] 0.8 mg/dL Normal 0.3-1.0 [facility] Comment on above: Performed By: #### L [id number] #### [facility] ([facility]) [address] [place] [address] Calcium [Mass/Vol] 8.7 mg/dL Normal 8.6-10.3 [facility] Comment on above: Performed By: #### L [id number] #### [facility] ([facility] [address] [place] [address] Chloride [Moles/Vol] 107 mmol/L Normal 98-107 [facility] Comment on above: Performed By: #### L [id number] #### [facility] ([facility] [address] [place] [address] CO2 [Moles/Vol] 27 mmol/L Normal 21-31 [facility] Comment on above: Performed By: #### L [id number] #### [facility] [address] [place] [address] Creatinine [Mass/Vol] 1.36 mg/dL High 0.70-1.30 [facility] Comment on above: Performed By: #### L [id number] #### [facility] ([facility]) [address] [place] [address] GLOMERULAR FILTRATION RATE ML/MIN/1.73 SQ M.PREDICTED 53.9 mL/min/1.73m*2 Low >60.0 [facility] Comment on above: Result Comment: The [facility]???s estimated glomerular filtration rate (eGFR) will no longer include consideration of race in its calculation. The National Kidney Foundation???s eGFR Task Force developed new recommendations for the estimation of the glomerular filtration rate in the [place] They recommend immediate implementation of the new equation refit without the race variable in all laboratories because the calculation does not include race. In addition to not including race in the calculation and reporting, it included diversity in its development, and has acceptable performance characteristics and potential consequences that do not disproportionately affect any one group of individuals. Performed By: #### L [id number] #### [facility] ([facility]) [address] [place] [address] Glucose [Mass/Vol] 58 mg/dL Low 70-100 [facility] Comment on above: Performed By: #### L [id number] #### [facility] ([facility]) [address] [place] [address] Potassium [Moles/Vol] 4.4 mmol/L Normal 3.5-5.1 [facility] Comment on above: Performed By: #### L [id number] #### [facility] ([facility]) [address] [place] [address] Protein [Mass/Vol] 5.7 g/dL Low 6.0-8.3 [facility] Comment on above: Performed By: #### L [id number] #### [facility] ([facility]) [address] [place] [address] Sodium [Moles/Vol] 139 mmol/L Normal 136-145 [facility] Comment on above: Performed By: #### L [id number] #### [facility] ([facility]) [address] [place] [address] Urea nitrogen [Mass/Vol] 27 mg/dL High 7-25 [facility] Comment on above: Performed By: #### L [id number] #### [facility] ([facility]) [address] [place] [address] UREA NITROGEN/CREATININE (MASS RATIO) IN SER/PLAS 19.9 Normal [facility] Comment on above: Performed By: #### L [id number] #### [facility] ([facility]) [address] [place] [address] LACTIC ACID WITH 4 HOUR REFL EXon 06-09-2024 LACTATE (MMOL/L) IN SER/PLAS 0.6 mmol/L Normal 0.5-2.2 [facility] Comment on above: Performed By: #### L [id number] ####[facility] ([facility])[address] [place] [address] MAGNESIUMon 06-09-2024 Magnesium [Mass/Vol] 1.8 mg/dL Low 1.9-2.7 [facility] Comment on above: Performed By: #### L [id number] #### [facility] ([facility]) [address] [place] [address] MANUAL DIFFERENTIALon 2023 BASOPHILS (10*3/UL) IN BLOOD BY CALCULATION 0.06 10*3/uL Normal 0.00-0.20 [facility] Comment on above: Performed By: #### L [id number] ####[facility] ([facility])[address] [place] [address] BASOPHILS/100 LEUKOCYTES IN BLOOD BY AUTOMATED COUNT 0.4 % Normal 0.0-1.0 [facility] Comment on above: Performed By: #### L [id number] ####[facility] ([facility] [place] [address] EOSINOPHILS (10*3/UL) IN BLOOD BY CALCULATION 0.13 10*3/uL Normal 0.00-0.50 [facility] Comment on above: Performed By: #### L [id number] ####[facility] ([facility])[address] [place] [address] EOSINOPHILS/100 LEUKOCYTES IN BLOOD BY AUTOMATED COUNT 0.8 % Normal 0.0-6.0 [facility] Comment on above: Performed By: #### L [id number] ####[facility] ([facility])[address] [place] [address] IMMATURE GRANULOCYTES (10*3/UL) IN BLOOD BY CALCULATION 0.05 10*3/uL Normal 0.00-0.20 [facility] Comment on above: Performed By: #### L [id number] ####[facility] ([facility])[address] [place] [address] IMMATURE GRANULOCYTES/100 LEUKOCYTES IN BLOOD BY AUTOMATED COUNT 0.3 % Normal 0.0-1.0 [facility] Comment on above: Performed By: #### L [id number] ####[facility] ([facility])[address] [place] [address] LYMPHOCYTES (10*3/UL) IN BLOOD BY CALCULATION 10.26 10*3/uL High 1.20-4.00 [facility] Comment on above: Performed By: #### L [id number] ####[facility] ([facility])[address] [place] [address] LYMPHOCYTES/100 LEUKOCYTES IN BLOOD BY AUTOMATED COUNT 64.8 % High 20.0-45.0 [facility] Comment on above: Performed By: #### L [id number] ####[facility] ([facility])[address] [place] [address] MONOCYTES (10*3/UL) IN BLOOD BY CALCUATION 0.44 10*3/uL Normal 0.10-1.00 [facility] Comment on above: Performed By: #### L [id number] ####[facility] ([facility] [place] [address] MONOCYTES/100 LEUKOCYTES IN BLOOD BY AUTOMATED COUNT 2.8 % Low 5.0-12.0 [facility] Comment on above: Performed By: #### L [id number] ####[facility] ([facility])[address] [place] [address] NEUTROPHILS (10*3/UL) IN BLOOD BY CALCULATION 4.9 10*3/uL Normal 1.6-7.6 [facility] Comment on above: Performed By: #### L [id number] ####[facility] ([facility])[address] [place] [address] NEUTROPHILS/100 LEUKOCYTES IN BLOOD BY AUTOMATED COUNT 30.9 % Low 40.0-72.0 [facility] Comment on above: Performed By: #### L [id number] ####[facility] ([facility])[address] [place] [address] PATHOLOGY REVIEWon PATHOLOGY REVIEW Reviewed. [facility] Comment on above: Result Comment: Elec tronically signed by Mark Torres MD on 06/10/24 at 1:57 PM. Performed By: #### L [id number] #### [facility] ([facility]) [address] [place] [address] POCT GLUCOSE METER UNSOLICIT ED RESULTSon 06-09-2024 Glucose [Mass/Vol] 136 mg/dL High 70-105 [facility] Comment on above: Order Comment: Waive d Testing in the ED is performed under the ED CLIA certificate #[id number]. Result Comment: [email or web address] [email or web address] Performed By: #### L [id number] #### [facility] ([facility]) [address] [place] [address] Glucose [Mass/Vol] 97 mg/dL Normal 70-105 [facility] Comment on above: Order Comment: Waive d Testing in the ED is performed under the ED CLIA certificate #[id number]. Result Comment: ebeg in Performed By: #### L [id number] #### [facility] ([facility] [address] [place] [address] Glucose [Mass/Vol] 64 mg/dL Low 70-105 [facility] Comment on above: Order Comment: Waive d Testing in the ED is performed under the ED CLIA certificate #[id number]. Result Comment: [email or web address] [email or web address] Performed By: #### L [id number] #### [facility] ([employer] [address] [place] [address] Glucose [Mass/Vol] 163 mg/dL High 70-105 [facility] Comment on above: Order Comment: Waive d Testing in the ED is performed under the ED CLIA certificate #[id number]. Result Comment: bflo od Performed By: #### L [id number] ####[facility] ([employer] [place] [address] Glucose [Mass/Vol] 66 mg/dL Low 70-105 [facility] Comment on above: Order Comment: Waive d Testing in the ED is performed under the ED CLIA certificate #[id number]. Result Comment: rsta rr Performed By: #### L [id number] ####[facility] ([employer] [place] [address] PROTIME-INRon 06-09-2024 INR IN PPP BY COAGULATION ASSAY 1.37 High 0.90-1.10 [facility] Comment on above: Result Comment: ACCC P RECOMMENDED INR FOR WARFARIN THERAPY CONDITION INR PROPHYLAXIS OF VENOUS THROMBOSIS 2-3 (HIGH-RISK SURGERY) TREATMENT OF VENOUS THROMBOSIS 2-3 TREATMENT OF PULMONARY EMBOLISM 2-3 PREVENTION OF SYSTEMIC EMBOLISM: 2-3 ACUTE MYOCARDIAL INFARCTION TISSUE HEART VALVES VALVULAR HEART DISEASE ATRIAL FIBRILLATION RECURRENT SYSTEMIC EMBOLISM MECHANICAL HEART VALVE 2.5-3.5 FROM: ORAL ANTICOAGULANTS. MECHANISM OF ACTION, CLINICAL EFFECTIVENESS, AND OPTIMAL THERAPEUTIC RANGE. CHEST 1995;108:231S-246S. Performed By: #### L [id number] #### [facility] ([facility]) [address] [place] [address] PROTHROMBIN TIME (PT) IN PPP BY COAGULATION ASSAY 16.8 Seconds High 12.3-14.8 [facility] Comment on above: Performed By: #### L [id number] #### [facility] ([facility]) [address] [place] [address] TYPE AND SCREENon 06-09-2024 AB SCREEN Negative Normal [facility] Comment on above: Performed By: #### L [id number] ####[facility], ABO group Nom (Bld) B Normal [facility] Comment on above: Performed By: #### L [id number] ####[facility], RH TYPE IN BLOOD Positive Normal [facility] Comment on above: Performed By: #### L [id number] ####[facility], Telephoneon 06-09-2024 Telephone [id number] Lencho Morejon U 1945 M Date Provider Department Center 06/09/2024 Becky-SUE DANIELS MARIA E [facility] C No family history on file Normal [facility] ALL BASIC METABOLIC PANELon 06-08-2024 Anion gap [Moles/Vol] 15.8 mmol/L NO [facility] Calcium [Mass/Vol] 9.2 mg/dL 8.5 - 10. 1 mg/dL [facility] Chloride [Moles/Vol] 105 mmol/L 98 - 10 7 mmol/L [facility] CO2 [Moles/Vol] 23.4 mmol/L 21.0 - 32.0 mmol/L [facility] Creatinine [Mass/Vol] 1.96 mg/dL High 0.70 - 1.30 mg/dL [facility] GFR/1.73 sq M.predicted CKD-EPI (S/P/Bld) [Vol rate/Area] 41 Low >=60 mL/min/1.7 3m 2 [facility] Glucose [Mass/Vol] 154 mg/dL High 74 - 106 mg/dL [facility] Interpretation and review of laboratory results Abnormal [facility] Potassium [Moles/Vol] 5.2 mmol/L High 3.5 - 5.1 mmol/L [facility] Sodium [Moles/Vol] 139 mmol/L 136 - 145 mmol/L [facility] TBH EGFR-NON AF IVORIAN 33 Low >=60 mL/min/1.7 3m 2 [facility] Urea nitrogen [Mass/Vol] 38 mg/dL High 7.0 - 18.0 mg/dL [facility] Urea nitrogen/Creatinine [Mass ratio] 19.4 mg/mg [facility] Orders Onlyon 06-07-2024 Orders Only [id number] Lencho Morejon U 1945 M Date Provider Department Center 06/07/2024 [facility] No family history on file Normal [facility] Office Visiton 05-11-2024 Follow-up visit [id number] Lencho Morejon U 1945 M Date Provider Department Center 05/11/2024 241-FARTUN BARRIOS [facility] No family history on file Level of Service:85091 NE OFFICE/OUTPATIENT NEW MODERATE MDM 45 MINUTES Normal [facility] ALL LIPID PROFILE (FASTING)o n 05-05-2024 CHOL HDL RATIO 1.4 [facility] Comment on above: 3.3 - 4.4 LOW RISK 4.4 - 7.1 AVERAGE RISK 7.1 - 11.0 MODERATE RISK >11.0 HIGH RISK Cholesterol [Mass/Vol] 86 mg/dL NINF - 200 mg/dL [facility] Cholesterol in HDL [Mass/Vol] 63 mg/dL High 40 - 60 mg/dL [facility] Comment on above: > or =60 mg/dl - LOW CARDIOVASCULAR RISK <40 mg/dl - HIGH CARDIOVASCULAR RISK Interpretation and review of laboratory results Abnormal [facility] Magnesium [Mass/Vol] 15 mg/dL [facility] Comment on above: <100 mg/dl OPTIMAL 100-129 mg/dl NEAR OR ABOVE OPTIMAL 130-159 mg/dl BORDERLINE HIGH 160-189 mg/dl HIGH >190 mg/dl VERY HIGH Magnesium [Mass/Vol] 8.2 mg/dL [facility] Triglyceride [Mass/Vol] 41 mg/dL NINF - 150 mg/dL [facility] CBC AND AUTO DIFFon 10-10-20 24 ABSOLUTE BASOPHIL 0.1 X10E9/L Normal 0.0-0.2 [facility] Comment on above: Performed By: #### 2 157-6, C34, 99697-4, SPE, 66124-2, 5130-0, 05258-3, 6969-0, 6968-2 #### [facility] ([id number]) [address], [address] [place] [address] ABSOLUTE NEUTROPHIL 7.4 X10E9/L High 1.5-6.6 [facility] Comment on above: Performed By: #### 2 157-6, C34, 03432-5, SPE, 26143-4, 5130-0, 86438-8, 6969-0, 6968-2 #### [facility] ([id number]) [address], [address] [place] [address] Basophils/100 WBC (Bld) 0.6 % Normal [facility] Comment on above: Performed By: #### 2 157-6, C34, 60676-5, SPE, 07668-2, 5130-0, 52226-5, 6969-0, 6968-2 #### [facility] ([id number]) [address], [address] [place] [address] Eosinophils (Bld) [#/Vol] 0.4 10*3/uL Normal 0.0-0.[address] [facility] Comment on above: Performed By: #### 2 157-6, C34, 02255-3, SPE, 79907-9, 5130-0, 87849-4, 6969-0, 6968-2 #### [facility] ([id number]) [address], [address] [place] [address] Eosinophils/100 WBC (Bld) 2.2 % Normal [facility] Comment on above: Performed By: #### 2 157-6, C34, 75361-1, SPE, 93565-0, 5130-0, 01655-5, 6969-0, 6968-2 #### [facility] ([id number]) [address], [address] [place] [address] Erythrocyte distribution width (RBC) [Ratio] 13.5 % Normal 11.5-15.[address] [facility] Comment on above: Performed By: #### 2 157-6, C34, 36326-6, SPE, 62214-1, 5130-0, 48666-1, 6969-0, 6968-2 #### [facility] ([id number]) [address], [address] [place] [address] Hematocrit (Bld) [Volume fraction] 35.8 % Low 39-[address] [facility] Comment on above: Performed By: #### 2 157-6, C34, 28374-0, SPE, 32487-9, 5130-0, 00366-4, 6969-0, 6968-2 #### [facility] ([id number]) [address], [address] [place] [address] Hemoglobin (Bld) [Mass/Vol] 12.5 g/dL Low 13.0-17.[address] [facility] Comment on above: Performed By: #### 2 157-6, C34, 29541-2, SPE, 78837-9, 5130-0, 96274-6, 6969-0, 6968-2 #### [facility] ([id number]) [address] [place] [address] Lymphocytes (Bld) [#/Vol] 9.7 10*3/uL High 1.0-3.[address] [facility] Comment on above: Performed By: #### 2 157-6, C34, 56645-2, SPE, 37597-1, 5130-0, 96352-3, 6969-0, 6968-2 #### [facility] ([id number]) [address] [place] [address] Lymphocytes/100 WBC (Bld) 53.3 % Normal [facility] Comment on above: Performed By: #### 2 157-6, C34, 27868-0, SPE, 33591-7, 5130-0, 72350-0, 6969-0, 6968-2 #### [facility] ([id number]) [address] [place] [address] MCH (RBC) [Entitic mass] 31.1 pg Normal 27-[address] [facility] Comment on above: Performed By: #### 2 157-6, C34, 10065-3, SPE, 59524-4, 5130-0, 40115-2, 6969-0, 6968-2 #### [facility] ([id number]) [address] [place] [address] MCHC (RBC) [Mass/Vol] 34.8 g/dL Normal 32-[address] [facility] Comment on above: Performed By: #### 2 157-6, C34, 78457-6, SPE, 72394-1, 5130-0, 89008-0, 6969-0, 6968-2 #### [facility] ([id number]) [address] [place] [address] MCV (RBC) [Entitic vol] 89 fL Normal 80-[address] [facility] Comment on above: Performed By: #### 2 157-6, C34, 63696-7, SPE, 78871-8, 5130-0, 99198-5, 6969-0, 6968-2 #### [facility] ([id number]) [address] [place] [address] Monocytes (Bld) [#/Vol] 0.6 10*3/uL Normal 0-0.[address] [facility] Comment on above: Performed By: #### 2 157-6, C34, 06127-2, SPE, 31174-1, 5130-0, 36064-7, 6969-0, 6968-2 #### [facility] ([id number]) [address] [place] [address] Monocytes/100 WBC (Bld) 3.4 % Normal [facility] Comment on above: Performed By: #### 2 157-6, C34, 00137-2, SPE, 30489-7, 5130-0, 63966-8, 6969-0, 6968-2 #### [facility] ([id number]) [address], [facility] [address] [place] [address] Neutrophils/100 WBC (Bld) 40.5 % Normal [facility] Comment on above: Performed By: #### 2 157-6, C34, 37410-5, SPE, 87592-2, 5130-0, 08771-2, 6969-0, 6968-2 #### [facility] ([id number]) [address], [facility] [address] [place] [address] OVALOCYTE 1+ Abnormal NONE [facility] Comment on above: Performed By: #### 2 157-6, C34, 35564-0, SPE, 71855-8, 5130-0, 17655-5, 6969-0, 6968-2 #### [facility] ([id number]) [address], [facility] [address] [place] [address] Platelet mean volume (Bld) [Entitic vol] 8.8 fL Normal 7-[address] [facility] Comment on above: Performed By: #### 2 157-6, C34, 76236-8, SPE, 91638-3, 5130-0, 18609-5, 6969-0, 6968-2 #### [facility] ([id number]) [address] [address] [place] [address] Platelets (Bld) [#/Vol] 199 10*3/uL Normal 150-[address] [facility] Comment on above: Performed By: #### 2 157-6, C34, 23790-3, SPE, 61904-7, 5130-0, 96022-7, 6969-0, 6968-2 #### [facility] ([id number]) [address] [place] [address] RBC COUNT 4.02 X10E12/L Low 4.10-5.[address] [facility] Comment on above: Performed By: #### 2 157-6, C34, 32911-9, SPE, 58151-9, 5130-0, 83069-3, 6969-0, 6968-2 #### [facility] ([id number]) [address] [place] [address] SMUDGE CELLS 1+ Abnormal NONE [facility] Comment on above: Performed By: #### 2 157-6, C34, 69361-1, SPE, 14502-5, 5130-0, 35960-7, 6969-0, 6968-2 #### [facility] ([id number]) [address] [place] [address] WBC (Bld) [#/Vol] 18.2 10*3/uL High 4.0-11.0 [facility] Comment on above: Performed By: #### 2 157-6, C34, 09545-3, SPE, 97997-6, 5130-0, 69936-1, 6969-0, 6968-2 #### [facility] ([id number]) [address] [place] [address] COMPREHENSIVE METABOLIC PANE Woody 04-29-2024 Albumin [Mass/Vol] 3.1 g/dL Low 3.2-5.3 [facility] Comment on above: Performed By: #### 2 157-6, C34, 75303-2, SPE, 04740-6, 5130-0, 97053-8, 6969-0, 6968-2 #### [facility] ([id number]) [address], [address] [place] [address] ALP [Catalytic activity/Vol] 89 U/L Normal 39-[address] [facility] Comment on above: Performed By: #### 2 157-6, C34, 87907-4, SPE, 47989-0, 5130-0, 96124-2, 6969-0, 6968-2 #### [facility] ([id number]) [address] [place] [address] ALT [Catalytic activity/Vol] 25 U/L Normal 0-[address] [facility] Comment on above: Performed By: #### 2 157-6, C34, 51807-0, SPE, 68339-6, 5130-0, 43067-2, 6969-0, 6968-2 #### [facility] ([id number]) [address] [place] [address] Anion gap [Moles/Vol] 7 mmol/L Normal 5-[address] [facility] Comment on above: Performed By: #### 2 157-6, C34, 38507-0, SPE, 34459-0, 5130-0, 36426-5, 6969-0, 6968-2 #### [facility] ([id number]) [address] [place] [address] AST [Catalytic activity/Vol] 15 U/L Normal 0-[address] [facility] Comment on above: Performed By: #### 2 157-6, C34, 79194-1, SPE, 29288-1, 5130-0, 47180-7, 6969-0, 6968-2 #### [facility] ([id number]) [address] [place] [address] Bilirubin [Mass/Vol] 0.6 mg/dL Normal 0.3-1.2 [facility] Comment on above: Performed By: #### 2 157-6, C34, 83159-7, SPE, 10904-9, 5130-0, 27358-0, 6969-0, 6968-2 #### [facility] ([id number]) [address], [address] [place] [address] Calcium [Mass/Vol] 8.7 mg/dL Normal 8.5-10.5 [facility] Comment on above: Performed By: #### 2 157-6, C34, 72631-7, SPE, 19966-3, 5130-0, 59608-9, 6969-0, 6968-2 #### [facility] ([id number]) [address] [place] [address] Chloride [Moles/Vol] 107 mmol/L Normal 98-109 [facility] Comment on above: Performed By: #### 2 157-6, C34, 69450-1, SPE, 82634-0, 5130-0, 71463-6, 6969-0, 6968-2 #### [facility] ([id number]) [address] [place] [address] CO2 [Moles/Vol] 27 mmol/L Normal 22-[address] [facility] Comment on above: Performed By: #### 2 157-6, C34, 46645-3, SPE, 01927-9, 5130-0, 29786-0, 6969-0, 6968-2 #### [facility] ([id number]) [address] [place] [address] Creatinine [Mass/Vol] 1.15 mg/dL Normal 0.60-1.[address] [facility] Comment on above: Result Comment: METH OD TRACEABLE TO IDMS STANDARD Performed By: #### 2 157-6, C34, 95186-3, SPE, 78005-8, 5130-0, 65472-4, 6969-0, 6968-2 #### [facility] ([id number]) [address] [place] [address] GFR/1.73 sq M.predicted among non-blacks MDRD (S/P/Bld) [Vol rate/Area] 66 mL/min/{1.73_m2} Normal >[address] [facility] Comment on above: Result Comment: Reported eGFR is based on the CKD-EPI 2020 equation that does not use a race coefficient. Performed By: #### 2 157-6, C34, 47472-5, SPE, 69085-2, 5130-0, 73120-5, 6969-0, 6968-2 #### [facility] ([id number]) [address] [place] [address] Glucose [Mass/Vol] 102 mg/dL High 65-99 [facility] Comment on above: Performed By: #### 2 157-6, C34, 47673-6, SPE, 33020-5, 5130-0, 88381-3, 6969-0, 6968-2 #### [facility] ([id number]) [address] [place] [address] Potassium [Moles/Vol] 4.4 mmol/L Normal 3.5-5.[address] [facility] Comment on above: Performed By: #### 2 157-6, C34, 86611-0, SPE, 42122-6, 5130-0, 11180-7, 6969-0, 6968-2 #### [facility] ([id number]) [address] [place] [address] Protein [Mass/Vol] 5.6 g/dL Low 6.0-8.0 [facility] Comment on above: Performed By: #### 2 157-6, C34, 51630-7, SPE, 53614-8, 5130-0, 39747-4, 6969-0, 6968-2 #### [facility] ([id number]) [address] [place] [address] Sodium [Moles/Vol] 141 mmol/L Normal 134-146 [facility] Comment on above: Performed By: #### 2 157-6, C34, 66021-9, SPE, 91139-7, 5130-0, 34980-7, 6969-0, 6968-2 #### [facility] ([id number]) [address] [place] [address] Urea nitrogen [Mass/Vol] 22 mg/dL Normal 5-[address] [facility] Comment on above: Performed By: #### 2 157-6, C34, 13860-8, SPE, 34224-3, 5130-0, 72962-7, 6969-0, 6968-2 #### [facility] ([id number]) [address] [place] [address] Glucose Glucometer (BldC) [M ass/Vol]on 04-29-2024 Glucose [Mass/Vol] 240 mg/dL High 65-99 [facility] Glucose [Mass/Vol] 233 mg/dL High 65-99 [facility] Glucose [Mass/Vol] 107 mg/dL High 65-99 [facility] Heparin unfractionated Chrom ogenic method Qn (PPP)on 04-29-2024 ANTI XA UFH 0.30 IU/mL Normal 0.30-0.[address] [facility] Comment on above: Result Comment: Opti mal time for testing is 6 hrs post dosage This test is specific for monitoring patients on UFH, and is not recommended for use with other Anti-Xa medications. Performed By: #### 2 157-6, C34, 51336-4, SPE, 62571-1, 5130-0, 37085-8, 6969-0, 6968-2 #### [facility] ([id number]) [address] [place] [address] MAGNESIUMon 04-29-2024 Magnesium [Mass/Vol] 1.7 mg/dL Low 1.8-2.6 [facility] Comment on above: Performed By: #### 2 157-6, C34, 28212-5, SPE, 84053-6, 5130-0, 53008-3, 6969-0, 6968-2 #### [facility] ([id number]) [address] [place] [address] ACT Diatomaceous earth induc ed (Bld)on 04-28-2024 [facility]CHRN CLOT TIME LR 290 sec High 89-169 [facility] Comment on above: Performed By: #### 2 157-6, C34, 21405-1, SPE, 41329-8, 5130-0, 34302-0, 6969-0, 6968-2 #### [facility] ([id number]) [address] [place] [address] HMCHRN CLOT TIME LR >400 High 89-169 [facility] Comment on above: Performed By: #### 2 157-6, C34, 16105-5, SPE, 20600-1, 5130-0, 09822-0, 6969-0, 6968-2 #### [facility] ([id number]) [address] [place] [address] CBC AND AUTO DIFFon 04-28-20 Erythrocyte distribution width (RBC) [Ratio] 13.7 % Normal 11.5-15.[address] [facility] Comment on above: Performed By: #### 2 157-6, C34, 08779-4, SPE, 46272-5, 5130-0, 76997-6, 6969-0, 6968-2 #### [facility] ([id number]) [address] [place] [address] Hematocrit (Bld) [Volume fraction] 35.5 % Low 39-[address] [facility] Comment on above: Performed By: #### 2 157-6, C34, 71033-7, SPE, 06396-9, 5130-0, 47659-4, 6969-0, 6968-2 #### [facility] ([id number]) [address] [place] [address] Hemoglobin (Bld) [Mass/Vol] 12.1 g/dL Low 13.0-17.[address] [facility] Comment on above: Performed By: #### 2 157-6, C34, 99379-0, SPE, 05204-6, 5130-0, 81669-7, 6969-0, 6968-2 #### [facility] ([id number]) [address] [address] [place] [address] Lymphocytes (Bld) [#/Vol] 14.4 10*3/uL High 1.0-3.[address] [facility] Comment on above: Performed By: #### 2 157-6, C34, 58651-0, SPE, 31826-6, 5130-0, 45811-7, 6969-0, 6968-2 #### [facility] ([id number]) [address] [address] Lymphocytes/100 WBC (Bld) 69.0 % Normal [facility] Comment on above: Performed By: #### 2 157-6, C34, 88378-6, SPE, 51603-4, 5130-0, 86199-0, 6969-0, 6968-2 #### [facility] ([id number]) [address] [place] [address] MCH (RBC) [Entitic mass] 31.1 pg Normal 27-[address] [facility] Comment on above: Performed By: #### 2 157-6, C34, 78139-8, SPE, 49840-8, 5130-0, 84969-1, 6969-0, 6968-2 #### [facility] ([id number]) [address] [place] [address] MCHC (RBC) [Mass/Vol] 34.2 g/dL Normal 32-[address] [facility] Comment on above: Performed By: #### 2 157-6, C34, 87092-9, SPE, 73239-1, 5130-0, 88582-2, 6969-0, 6968-2 #### [facility] ([id number]) [address] [place] [address] MCV (RBC) [Entitic vol] 91 fL Normal 80-[address] [facility] Comment on above: Performed By: #### 2 157-6, C34, 59107-8, SPE, 99682-6, 5130-0, 32514-6, 6969-0, 6968-2 #### [facility] ([id number]) [address] [place] [address] Monocytes (Bld) [#/Vol] 0.4 10*3/uL Normal 0-0.[address] [facility] Comment on above: Performed By: #### 2 157-6, C34, 36756-0, SPE, 07111-1, 5130-0, 70961-2, 6969-0, 6968-2 #### [facility] ([id number]) [address] [place] [address] Monocytes/100 WBC (Bld) 2.0 % Normal [facility] Comment on above: Performed By: #### 2 157-6, C34, 12831-0, SPE, 83478-9, 5130-0, 71062-8, 6969-0, 6968-2 #### [facility] ([id number]) [address] [place] [address] MYELOCYTE 1.0 % Normal [facility] Comment on above: Performed By: #### 2 157-6, C34, 46218-9, SPE, 40469-6, 5130-0, 09158-4, 6969-0, 6968-2 #### [facility] ([id number]) [address] [place] [address] Neutrophils (Bld) [#/Vol] 5.9 10*3/uL Normal 1.5-6.[address] [facility] Comment on above: Performed By: #### 2 157-6, C34, 90213-5, SPE, 76767-9, 5130-0, 33422-7, 6969-0, 6968-2 #### [facility] ([id number]) [address] [place] [address] OVALOCYTE 1+ Abnormal NONE [facility] Comment on above: Performed By: #### 2 157-6, C34, 57854-3, SPE, 37547-3, 5130-0, 43891-8, 6969-0, 6968-2 #### [facility] ([id number]) [address] [place] [address] Platelet mean volume (Bld) [Entitic vol] 9.1 fL Normal 7-[address] [facility] Comment on above: Performed By: #### 2 157-6, C34, 08116-0, SPE, 57434-6, 5130-0, 69145-2, 6969-0, 6968-2 #### [facility] ([id number]) [address] [place] [address] Platelets (Bld) [#/Vol] 188 10*3/uL Normal 150-[address] [facility] Comment on above: Performed By: #### 2 157-6, C34, 83378-2, SPE, 21971-3, 5130-0, 60022-2, 6969-0, 6968-2 #### [facility] ([id number]) [address] [place] [address] RBC COUNT 3.90 X10E12/L Low 4.10-5.[address] [facility] Comment on above: Performed By: #### 2 157-6, C34, 22036-2, SPE, 06694-1, 5130-0, 30514-6, 6969-0, 6968-2 #### [facility] ([id number]) [address] [place] [address] SEG NEUTROPHIL 28.0 % Normal [facility] Comment on above: Performed By: #### 2 157-6, C34, 60286-2, SPE, 49187-9, 5130-0, 35284-0, 6969-0, 6968-2 #### [facility] ([id number]) [address] [place] [address] WBC (Bld) [#/Vol] 20.9 10*3/uL High 4.0-11.0 [facility] Comment on above: Performed By: #### 2 157-6, C34, 23093-8, SPE, 06950-0, 5130-0, 89726-5, 6969-0, 6968-2 #### [facility] ([id number]) [address] [place] [address] COMPREHENSIVE METABOLIC PANE Woody 04-28-2024 Albumin [Mass/Vol] 3.3 g/dL Normal 3.2-5.3 [facility] Comment on above: Performed By: #### 2 157-6, C34, 57073-1, SPE, 39419-3, 5130-0, 86741-8, 6969-0, 6968-2 #### [facility] ([id number]) [address] [place] [address] ALP [Catalytic activity/Vol] 82 U/L Normal 39-[address] [facility] Comment on above: Performed By: #### 2 157-6, C34, 81751-1, SPE, 53835-7, 5130-0, 11893-8, 6969-0, 6968-2 #### [facility] ([id number]) [address] [place] [address] ALT [Catalytic activity/Vol] 36 U/L Normal 0-[address] [facility] Comment on above: Performed By: #### 2 157-6, C34, 11609-5, SPE, 45118-5, 5130-0, 76506-3, 6969-0, 6968-2 #### [facility] ([id number]) [address] [place] [address] Anion gap [Moles/Vol] 5 mmol/L Normal 5-[address] [facility] Comment on above: Performed By: #### 2 157-6, C34, 64007-0, SPE, 24898-4, 5130-0, 52407-3, 6969-0, 6968-2 #### [facility] ([id number]) [address] [place] [address] AST [Catalytic activity/Vol] 20 U/L Normal 0-[address] [facility] Comment on above: Performed By: #### 2 157-6, C34, 51100-4, SPE, 39844-3, 5130-0, 26959-0, 6969-0, 6968-2 #### [facility] ([id number]) [address], [address] [place] [address] Bilirubin [Mass/Vol] 0.5 mg/dL Normal 0.3-1.2 [facility] Comment on above: Performed By: #### 2 157-6, C34, 53326-9, SPE, 82697-8, 5130-0, 11102-8, 6969-0, 6968-2 #### [facility] ([id number]) [address], [address] [place] [address] Calcium [Mass/Vol] 8.8 mg/dL Normal 8.5-10.5 [facility] Comment on above: Performed By: #### 2 157-6, C34, 66334-1, SPE, 06257-3, 5130-0, 40464-5, 6969-0, 6968-2 #### [facility] ([id number]) [address], [address] [place] [address] Chloride [Moles/Vol] 107 mmol/L Normal 98-109 [facility] Comment on above: Performed By: #### 2 157-6, C34, 65106-9, SPE, 68965-2, 5130-0, 14107-5, 6969-0, 6968-2 #### [facility] ([id number]) [address], [address] [place] [address] CO2 [Moles/Vol] 30 mmol/L Normal 22-[address] [facility] Comment on above: Performed By: #### 2 157-6, C34, 89275-9, SPE, 17043-2, 5130-0, 42460-9, 6969-0, 6968-2 #### [facility] ([id number]) [address], [address] [place] [address] Creatinine [Mass/Vol] 1.40 mg/dL High 0.60-1.[address] [facility] Comment on above: Result Comment: METH OD TRACEABLE TO IDMS STANDARD Performed By: #### 2 157-6, C34, 31964-3, SPE, 10479-1, 5130-0, 90855-2, 6969-0, 6968-2 #### [facility] ([id number]) [address], [address] [place] [address] GFR/1.73 sq M.predicted among non-blacks MDRD (S/P/Bld) [Vol rate/Area] 52 mL/min/{1.73_m2} Low >[address] [facility] Comment on above: Result Comment: Reported eGFR is based on the CKD-EPI 2020 equation that does not use a race coefficient. Performed By: #### 2 157-6, C34, 46684-9, SPE, 77182-4, 5130-0, 61548-1, 6969-0, 6968-2 #### [facility] ([id number]) [address], [address] [place] [address] Glucose [Mass/Vol] 57 mg/dL Low 65-99 [facility] Comment on above: Performed By: #### 2 157-6, C34, 75367-9, SPE, 12485-2, 5130-0, 48498-2, 6969-0, 6968-2 #### [facility] ([id number]) [address] [place] [address] Potassium [Moles/Vol] 4.4 mmol/L Normal 3.5-5.[address] [facility] Comment on above: Performed By: #### 2 157-6, C34, 72165-2, SPE, 52337-5, 5130-0, 81654-8, 6969-0, 6968-2 #### [facility] ([id number]) [address] [place] [address] Protein [Mass/Vol] 5.7 g/dL Low 6.0-8.0 [facility] Comment on above: Performed By: #### 2 157-6, C34, 16526-6, SPE, 75713-4, 5130-0, 62843-7, 6969-0, 6968-2 #### [facility] ([id number]) [address] [place] [address] Sodium [Moles/Vol] 142 mmol/L Normal 134-146 [facility] Comment on above: Performed By: #### 2 157-6, C34, 57489-9, SPE, 48190-3, 5130-0, 29253-0, 6969-0, 6968-2 #### [facility] ([id number]) [address] [place] [address] Urea nitrogen [Mass/Vol] 35 mg/dL High 5-[address] [facility] Comment on above: Performed By: #### 2 157-6, C34, 85317-2, SPE, 24125-1, 5130-0, 57004-8, 6969-0, 6968-2 #### [facility] ([id number]) [address] [place] [address] Glucose Glucometer (BldC) [M ass/Vol]on 04-28-2024 Glucose [Mass/Vol] 208 mg/dL High 65-99 [facility] Glucose [Mass/Vol] 132 mg/dL High 65-99 [facility] Glucose [Mass/Vol] 63 mg/dL Low 65-99 [facility] Glucose [Mass/Vol] 118 mg/dL High 65-99 [facility] Glucose [Mass/Vol] 62 mg/dL Low 65-99 [facility] Heparin unfractionated Chrom ogenic method Qn (PPP)on 04-28-2024 ANTI XA UFH 0.38 IU/mL Normal 0.30-0.70 [facility] [facility] Comment on above: Result Comment: Opti mal time for testing is 6 hrs post dosage This test is specific for monitoring patients on UFH, and is not recommended for use with other Anti-Xa medications. Performed By: #### 2 157-6, C34, 48861-7, SPE, 89020-8, 5130-0, 43723-1, 6969-0, 6968-2 #### [facility] ([id number]) [address], [address] [place] [address] MAGNESIUMon 04-28-2024 Magnesium [Mass/Vol] 1.8 mg/dL Normal 1.8-2.6 [facility] Comment on above: Performed By: #### 2 157-6, C34, 79565-7, SPE, 92014-4, 5130-0, 46637-7, 6969-0, 6968-2 #### [facility] ([id number]) [address], [address] [place] [address] US RETROPERITONEAL COMPLETEo n 04-28-2024 US RETROPERITONEAL [...] kidneys and urinary bladder. Approved by Resident: Hector Donaldson MD on 04/28/2024 2:06 AM ICorby MD have personally reviewed the image(s) and agree with and/or edited the report Finalized by Corby Cintron MD on 04/28/2024 2:26 AM Normal [facility] CBC AND AUTO DIFFon 04-27-20 24 Eosinophils (Bld) [#/Vol] 0.2 10*3/uL Normal 0.0-0.4 [facility] Comment on above: Performed By: #### C ABIGAIL [facility], 97717-5, 79975-0, 46782-6 #### [facility] ([id number]) [address] [place] [address] 44506 Eosinophils/100 WBC (Bld) 1.0 % Normal [facility] Comment on above: Performed By: #### C LEÓN HAYES, 61514-0, 40467-4, 10800-2 #### [facility] ([id number]) [address] [place] [address] 13036 Erythrocyte distribution width (RBC) [Ratio] 13.8 % Normal 11.5-15.0 [facility] Comment on above: Performed By: #### C ABIGAIL, CMP, 51624-6, 58504-1, 73161-5 #### [facility] ([id number]) [address] [place] [address] 97533 Hematocrit (Bld) [Volume fraction] 30.1 % Low 39-49 [facility] Comment on above: Performed By: #### Rose Marie BCA, CMP, 15016-6, 10797-1, 00065-1 #### [facility] ([id number]) [address] [place] [address] 03066 Hemoglobin (Bld) [Mass/Vol] 10.2 g/dL Low 13.0-17.0 [facility] Comment on above: Performed By: #### Rose Marie BCA, CMP, , 44025-1, 51186-1 #### [facility] ([id number]) [address] [place] [address] 80632 LYMPHOCYTE, ATYPICAL 4.0 % Normal [facility] Comment on above: Performed By: #### C BCA, CMP, , 08497-8, 10220-8 #### [facility] ([id number]) [address] [place] [address] 25433 Lymphocytes (Bld) [#/Vol] 8.6 10*3/uL High 1.0-3.5 [facility] Comment on above: Performed By: #### C BCA, CMP, 61970-7, 51205-2, 95387-7 #### [facility] ([id number]) [address] [place] [address] 64854 Lymphocytes/100 WBC (Bld) 35.0 % Normal [facility] Comment on above: Performed By: #### Rose Marie BCA, CMP, 76866-6, 26280-6, 77002-5 #### [facility] ([id number]) [address] [place] [address] 56234 MCH (RBC) [Entitic mass] 30.9 pg Normal 27-34 [facility] Comment on above: Performed By: #### C BCA, CMP, 04209-9, 86391-6, 78052-3 #### [facility] ([id number]) [address] [place] [address] 35053 MCHC (RBC) [Mass/Vol] 34.0 g/dL Normal 32-36 [facility] Comment on above: Performed By: #### C BCA, CMP, 11631-4, 09997-2, 66197-7 #### [facility] ([id number]) [address] [place] [address] 52968 MCV (RBC) [Entitic vol] 91 fL Normal 80-100 [facility] Comment on above: Performed By: #### Rose Marie BCA, CMP, 35562-5, 04611-2, 43547-7 #### [facility] ([id number]) [address] [place] [address] 75911 Monocytes (Bld) [#/Vol] 0.2 10*3/uL Normal 0-0.9 [facility] Comment on above: Performed By: #### C BCA, CMP, 85064-0, 98411-6, 87162-8 #### [facility] ([id number]) [address] [place] [address] 32316 Monocytes/100 WBC (Bld) 1.0 % Normal [facility] Comment on above: Performed By: #### C BCA, CMP, 82653-2, 41275-1, 51494-0 #### [facility] ([id number]) [address] [place] [address] 45202 Neutrophils (Bld) [#/Vol] 13.0 10*3/uL High 1.5-6.6 [facility] Comment on above: Performed By: #### C BCA, CMP, 41183-1, 16463-5, 33212-3 #### [facility] ([id number]) [address] [place] [address] 01350 OVALOCYTE 1+ Abnormal NONE [facility] Comment on above: Performed By: #### C BCA, CMP, , 21112-0, 47317-8 #### [facility] ([id number]) [address] [place] [address] 85057 Platelet mean volume (Bld) [Entitic vol] 8.6 fL Normal 7-12 [facility] Comment on above: Performed By: #### Rose Marie HAYES, CMP, , 87275-2, 69135-5 #### [facility] ([id number]) [address] [place] [address] 53524 Platelets (Bld) [#/Vol] 172 10*3/uL Normal 150-450 [facility] Comment on above: Performed By: #### C BCA, CMP, , 73865-5, 73409-4 #### [facility] ([id number]) [address] [place] [address] 62720 RBC COUNT 3.30 X10E12/L Low 4.10-5.70 [facility] Comment on above: Performed By: #### Rose Marie HAYES, CMP, , 88652-4, 84987-3 #### [facility] ([id number]) [address] [place] [address] 53780 SEG NEUTROPHIL 59.0 % Normal [facility] Comment on above: Performed By: #### Rose Marie BCA, CMP, , 57582-1, 79431-8 #### [facility] ([id number]) [address] [place] [address] 60154 WBC (Bld) [#/Vol] 22.0 10*3/uL High 4.0-11.0 [facility] Comment on above: Performed By: #### C BCA, CMP, 04444-5, 43942-8, 53576-6 #### [facility] ([id number]) [address] [facility], [place] [address] CK [Catalytic activity/Vol]o n 04-27-2024 CPK 99 U/L Normal 24-[address] [facility] Comment on above: Performed By: #### 2 157-6, C34, 53599-6, SPE, 14132-0, 5130-0, 93533-6, 6969-0, 6968-2 #### [facility] ([id number]) [address], [address] [place] [address] COMPLEMENT PROFILEon 024 COMPLEMENT C3 141 mg/dL Normal 86-[address] [facility] Comment on above: Performed By: #### 2 157-6, C34, 04508-3, SPE, 92204-9, 5130-0, 14924-7, 6969-0, 6968-2 #### [facility] ([id number]) [address], [address] [place] [address] COMPLEMENT C4 25 mg/dL Normal 16-[address] [facility] Comment on above: Performed By: #### 2 157-6, C34, 92839-8, SPE, 95241-3, 5130-0, 67561-3, 6969-0, 6968-2 #### [facility] ([id number]) [address], [address] [place] [address] COMPREHENSIVE METABOLIC PANE Woody 04-27-2024 Albumin [Mass/Vol] 3.0 g/dL Low 3.2-5.3 [facility] Comment on above: Performed By: #### C BCA, CMP, 35424-6, 43010-6, 51803-9 #### [facility] ([id number]) [address] [facility], [place] [address] ALP [Catalytic activity/Vol] 79 U/L Normal 39-130 [facility] Comment on above: Performed By: #### C BCA, CMP, 27100-2, 04378-8, 56394-5 #### [facility] ([id number]) [address] [place] [address] 05749 ALT [Catalytic activity/Vol] 51 U/L High 0-40 [facility] Comment on above: Performed By: #### C BCA, CMP, 00986-7, 07855-8, 29244-3 #### [facility] ([id number]) [address] [place] [address] 00072 Anion gap [Moles/Vol] 8 mmol/L Normal 5-15 [facility] Comment on above: Performed By: #### C BCA, CMP, 87203-9, 77753-2, 83337-1 #### [facility] ([id number]) [address] [place] [address] 17550 AST [Catalytic activity/Vol] 35 U/L Normal 0-41 [facility] Comment on above: Performed By: #### C BCA, CMP, 56957-6, 00968-6, 98394-5 #### [facility] ([id number]) [address] [place] [address] 60833 Bilirubin [Mass/Vol] 0.5 mg/dL Normal 0.3-1.2 [facility] Comment on above: Performed By: #### C BCA, CMP, 22312-8, 96685-4, 38207-2 #### [facility] ([id number]) [address] [place] [address] 34129 Calcium [Mass/Vol] 8.7 mg/dL Normal 8.5-10.5 [facility] Comment on above: Performed By: #### C BCA, CMP, 44459-7, 30823-0, 73378-8 #### [facility] ([id number]) [address] [place] [address] 35076 Chloride [Moles/Vol] 107 mmol/L Normal 98-109 [facility] Comment on above: Performed By: #### C BCA, CMP, 62085-0, 18735-3, 32676-7 #### [facility] ([id number]) [address] [place] [address] 38944 CO2 [Moles/Vol] 22 mmol/L Normal 22-32 [facility] Comment on above: Performed By: #### C BCA, CMP, 87253-3, 03210-5, 34459-9 #### [facility] ([id number]) [address] [place] [address] 41888 Creatinine [Mass/Vol] 1.74 mg/dL High 0.70-1.20 [facility] Comment on above: Result Comment: METH OD TRACEABLE TO IDMS STANDARD Performed By: #### C BCA, CMP, 26765-9, 69697-4, 09995-5 #### [facility] ([id number]) [address] [place] [address] 70910 GFR/1.73 sq M.predicted among non-blacks MDRD (S/P/Bld) [Vol rate/Area] 40 mL/min/{1.73_m2} Low >59 [facility] Comment on above: Result Comment: Reported eGFR is based on the CKD-EPI 1 equation that does not use a race coefficient. Performed By: #### C BCA, CMP, 80552-5, 09860-6, 17611-2 #### [facility] ([id number]) [address] [place] [address] 54980 Glucose [Mass/Vol] 146 mg/dL High 65-99 [facility] Comment on above: Performed By: #### C BCA, CMP, 12642-0, 86412-4, 48340-2 #### [facility] ([id number]) [address] [place] [address] 05786 Potassium [Moles/Vol] 4.8 mmol/L Normal 3.5-5.0 [facility] Comment on above: Performed By: #### C BCA, CMP, 61267-2, 00074-3, 75062-8 #### [facility] ([id number]) [address] [place] [address] 27537 Protein [Mass/Vol] 5.4 g/dL Low 6.0-8.0 [facility] Comment on above: Performed By: #### C BCA, CMP, 02072-7, 57585-6, 30085-1 #### [facility] ([id number]) [address] [place] [address] 94292 Sodium [Moles/Vol] 137 mmol/L Normal 134-146 [facility] Comment on above: Performed By: #### C BCA, CMP, 64343-3, 06402-2, 27022-0 #### [facility] ([id number]) [address] [place] [address] 79825 Urea nitrogen [Mass/Vol] 44 mg/dL High 5-27 [facility] Comment on above: Performed By: #### C BCA, CMP, 90360-9, 74896-3, 74630-5 #### [facility] ([id number]) [address] [place] [address] 63482 Chloride (U) [Moles/Vol]on 1 URINE CHLORIDE,RANDOM 117 mmol/L Normal [facility] Comment on above: Performed By: #### 2 157-6, C34, 42714-8, SPE, 57748-9, 5130-0, 04504-1, 6969-0, 6968-2 #### [facility] ([id number]) [address] [place] [address], [address] [place] [address] Clinical Pathologyon 024 Clinical Pathology Normal [facility] Comment on above: Result Comment: [facility] [address] [place] [address] Clinical Pathology Report Patient Name:ILA MOREJON:1945 (Age: 78)Gender:MTaken:04/27/2024eported:04/28/2024hysician(s):Za Bryan DO ([phone])Copy To: Rec. #:[id number]: #[id number] Final Pathologic Diagnosis Faint albumin band. No monoclonal protein identified. Report Electronically Signed Out df/04/28/2024álvaro Sauceda MD [facility], [address] [place] [address], License number: [id number]. Clinical History I21.4 URINE PROTEIN ELECTROPHORESIS SAMPLE NUMBER: [id number] RELATIVE ELECTROPHORETIC CONCENTRATIONS (%) ? 100.0 Urine Protein 860 mg/L (Electrophoretic gels and densitometric tracings on file in lab.) Specimen(s) Received Urine Protein Electrophoresis Fee Codes(s): 1; 76908-72 DNA double strand Ab Qn (S)o n 04-27-2024 DOUBLE STRANDED DNA <1 Normal <5 [facility] Comment on above: Result Comment: Interpretation-------- <5 Negative 5-9 Indeterminate >9 Positive Performed By: #### 2 157-6, C34, 60605-9, SPE, 96754-0, 5130-0, 20020-5, 6969-0, 6968-2 #### [facility] ([id number]) [address] [place] [address], [address] [place] [address] FREE LIGHT CHAINSon 04-27-20 24 FREE HAM/LAMBD RATIO 2.30 High 0.26-1.65 [facility] Comment on above: Performed By: #### 2 157-6, C34, 85260-9, SPE, 85228-6, 5130-0, 67615-5, 6969-0, 6968-2 #### [facility] ([id number]) [address], [address] [place] [address] FREE KAPPA LT CHAINS 4.35 mg/dL High 0.33-1.94 [facility] Comment on above: Performed By: #### 2 157-6, C34, 14253-4, SPE, 35745-3, 5130-0, 28011-9, 6969-0, 6968-2 #### [facility] ([id number]) [address], [address] [place] [address] FREE LAMBDA LT CHAINS 1.89 mg/dL Normal 0.57-2.[address] [facility] Comment on above: Performed By: #### 2 157-6, C34, 69165-5, SPE, 79941-0, 5130-0, 96607-1, 6969-0, 6968-2 #### [facility] ([id number]) [address] [place] [address] Glomerular basement membrane IgG Qn (S)on 04-27-2024 GBM IgG Ab <0.2 Normal <1.[address] [facility] Comment on above: Performed By: #### 2 157-6, C34, 00840-3, SPE, 85182-8, 5130-0, 47168-5, 6969-0, 6968-2 #### [facility] ([id number]) [address] [place] [address] Glucose Glucometer (BldC) [M ass/Vol]on 04-27-2024 Glucose [Mass/Vol] 245 mg/dL High 65-99 [facility] Glucose [Mass/Vol] 248 mg/dL High 65-99 [facility] Glucose [Mass/Vol] 249 mg/dL High 65-99 [facility] Heparin unfractionated Chrom ogenic method Qn (PPP)on 04-27-2024 ANTI XA UFH 0.31 IU/mL Normal 0.30-0.[address] [facility] Comment on above: Result Comment: Opti mal time for testing is 6 hrs post dosage This test is specific for monitoring patients on UFH, and is not recommended for use with other Anti-Xa medications. Performed By: #### 2 157-6, C34, 05435-5, SPE, 49916-0, 5130-0, 97652-8, 6969-0, 6968-2 #### [facility] ([id number]) [facility], [address] [place] [address] ANTI XA UFH 0.31 IU/mL Normal 0.30-0.[address] [facility] Comment on above: Result Comment: Opti mal time for testing is 6 hrs post dosage This test is specific for monitoring patients on UFH, and is not recommended for use with other Anti-Xa medications. Performed By: #### 3 274-8 #### [facility] ([id number]) [address] [facility], [address] [place] [address] ANTI XA UFH 0.45 IU/mL Normal 0.30-0.70 [facility] Comment on above: Result Comment: Opti mal time for testing is 6 hrs post dosage This test is specific for monitoring patients on UFH, and is not recommended for use with other Anti-Xa medications. Performed By: #### C LEÓN HAYES, 77199-7, 02263-5, 06632-9 #### [facility] ([id number]) [address] [place] [address], [place] [address] MAGNESIUMon 04-27-2024 Magnesium [Mass/Vol] 2.0 mg/dL Normal 1.8-2.6 [facility] Comment on above: Performed By: #### C LEÓN HAYES, 34221-3, 99251-1, 89039-2 #### [facility] ([id number]) [address] [place] [address], [place] [address] Myeloperoxidase Ab Qn (S)on 04-27-2024 Myeloperoxidase Ab <0.2 Normal <1.0 [facility] Comment on above: Performed By: #### 2 157-6, C34, 50987-8, SPE, 85195-9, 5130-0, 94517-2, 6969-0, 6968-2 #### [facility] ([id number]) [address] [facility], [address] [address] Natriuretic peptide B [Mass/ Vol]on 04-27-2024 Natriuretic peptide B (Bld) [Mass/Vol] 1576 pg/mL High <100.[address] [facility] Comment on above: Performed By: #### 2 157-6, C34, 93028-7, SPE, 69686-7, 5130-0, 98648-5, 6969-0, 6968-2 #### [facility] ([id number]) [address] [facility], [address] [address] Nuclear Ab IA Ql (S)on 04-27 RAMÓN Screen w/reflex Negative Normal NEG [facility] Comment on above: Result Comment: Testing performed using multiplex flow immunoassay. Eleven different antigens associated with systemic autoimmune diseases (dsDNA,Sm,Sm/[employer],Chromatin, SSA,SSB,Kiara-1,Scl70,Ribo P,Centromere B) are included in this screening test. Performed By: #### 2 157-6, C34, 86617-5, SPE, 79339-1, 5130-0, 84469-6, 6969-0, 6968-2 #### [facility] ([id number]) [address] [facility], [address] [address] PROTEIN CREAT RATIOon 2023 RANDOM URINE PROTEIN 860 mg/L High <120 [facility] Comment on above: Performed By: #### 2 157-6, C34, 41864-3, SPE, 97394-1, 5130-0, 23660-0, 6969-0, 6968-2 #### [facility] ([id number]) [address] [place] [address] U/PRO/IT CORPORATE RECRUITER RATIO CALC 2.56 High <0.2 [facility] Comment on above: Result Comment: Neph rotic Syndrome is associated with ratios >3.5 Performed By: #### 2 157-6, C34, 55354-8, SPE, 35026-0, 5130-0, 51210-5, 6969-0, 6968-2 #### [facility] ([id number]) [address], [address] [place] [address] URINE CREATININE,RDM 33.58 mg/dL Normal [facility] Comment on above: Performed By: #### 2 157-6, C34, 96072-8, SPE, 42827-5, 5130-0, 91378-9, 6969-0, 6968-2 #### [facility] ([id number]) [address], [address] [place] [address] Proteinase 3 Ab Qn (S)on Proteinase 3 IgG Ab <0.2 Normal <1.0 [facility] Comment on above: Performed By: #### 2 157-6, C34, 73656-0, SPE, 29801-9, 5130-0, 97076-7, 6969-0, 6968-2 #### [facility] ([id number]) [address], [address] [place] [address] Rheumatoid factor Nephelomet ry Qn (S)on 04-27-2024 RHEUMATOID FACTOR <10 Normal <20 [facility] Comment on above: Performed By: #### 2 157-6, C34, 79753-8, SPE, 71061-1, 5130-0, 62404-0, 6969-0, 6968-2 #### [facility] ([id number]) [address] [place] [address] SERUM PROTEIN ELECTROPHORESI Son 04-27-2024 Albumin [Mass/Vol] 3.3 g/dL Low 3.4-5.3 [facility] Comment on above: Performed By: #### 2 157-6, C34, 57165-5, SPE, 22662-4, 5130-0, 69880-0, 6969-0, 6968-2 #### [facility] ([id number]) [address], [address] [place] [address] ALPHA 1 GLOBULIN 0.4 g/dL Normal 0.1-0.4 [facility] Comment on above: Performed By: #### 2 157-6, C34, 49146-8, SPE, 01075-5, 5130-0, 84564-8, 6969-0, 6968-2 #### [facility] ([id number]) [address] [place] [address] ALPHA 2 GLOBULIN 0.9 g/dL Normal 0.4-1.1 [facility] Comment on above: Performed By: #### 2 157-6, C34, 55321-6, SPE, 93644-7, 5130-0, 57672-9, 6969-0, 6968-2 #### [facility] ([id number]) [address] [place] [address] BETA GLOBULIN 0.7 g/dL Normal 0.5-1.[address] [facility] Comment on above: Performed By: #### 2 157-6, C34, 67965-5, SPE, 21607-1, 5130-0, 11209-1, 6969-0, 6968-2 #### [facility] ([id number]) [address] [place] [address] GAMMA GLOBULIN 0.6 g/dL Normal 0.5-1.[address] [facility] Comment on above: Performed By: #### 2 157-6, C34, 75905-8, SPE, 22954-1, 5130-0, 67760-4, 6969-0, 6968-2 #### [facility] ([id number]) [address] [place] [address] PROT. ELECTROPHORESIS INTERP Unremarkable protein distribution, no monoclonal bands. Normal [facility] Comment on above: Performed By: #### 2 157-6, C34, 52721-8, SPE, 85051-5, 5130-0, 09078-1, 6969-0, 6968-2 #### [facility] ([id number]) [address] [place] [address] Protein [Mass/Vol] 5.9 g/dL Low 6.0-8.0 [facility] Comment on above: Performed By: #### 2 157-6, C34, 49940-4, SPE, 58685-1, 5130-0, 74713-4, 6969-0, 6968-2 #### [facility] ([id number]) [address], [address] [place] [address] Troponin I.cardiac High sens itivity method [Mass/Vol]on 04-27-2024 3 HOUR TROP I, HIGH SENSITIVITY 6066 ng/L Critically high <21 [facility] Comment on above: Result Comment: Elevations of hs-Troponin may be due to causes other than myocardial ischemia. Recommend serial hs-Troponin testing be performed. For the initial evaluation and management of chest pain patients, refer to the algorithms linked below. Emergency Patient: [email or web address] Inpatient: [email or web address] Performed By: #### C BCA, CMP, 06256-3, 85750-8, 06207-6 #### [facility] ([id number]) [address] [place] [address], [place] [address] URINALYSISon 04-27-2024 Bilirubin Ql (U) Negative Normal NEG [facility] Comment on above: Performed By: #### 2 157-6, C34, 80155-3, SPE, 51945-5, 5130-0, 71621-2, 6969-0, 6968-2 #### [facility] ([id number]) [address], [address] [place] [address] BLOOD/HGB Negative Normal NEG [facility] Comment on above: Performed By: #### 2 157-6, C34, 40534-9, SPE, 75232-5, 5130-0, 04215-1, 6969-0, 6968-2 #### [facility] ([id number]) [address], [address] [place] [address] Color (U) YELLOW Normal YELLOW [facility] Comment on above: Performed By: #### 2 157-6, C34, 16694-9, SPE, 44594-4, 5130-0, 22204-1, 6969-0, 6968-2 #### [facility] ([id number]) [address], [address] [place] [address] Glucose Ql (U) Negative Normal NEG [facility] Comment on above: Performed By: #### 2 157-6, C34, 43220-3, SPE, 46516-7, 5130-0, 42442-8, 6969-0, 6968-2 #### [facility] ([id number]) [address], [address] [place] [address] Hyaline casts LM Ql (Urine sed) 1 /lpf Normal 0-[address] [facility] Comment on above: Performed By: #### 2 157-6, C34, 04445-6, SPE, 62937-9, 5130-0, 02122-4, 6969-0, 6968-2 #### [facility] ([id number]) [address], [address] [place] [address] Ketones Ql (U) Negative Normal NEG [facility] Comment on above: Performed By: #### 2 157-6, C34, 97525-6, SPE, 17342-9, 5130-0, 18607-6, 6969-0, 6968-2 #### [facility] ([id number]) [address] [address] [place] [address] Leukocyte esterase Test strip Ql (U) Negative Normal NEG [facility] Comment on above: Performed By: #### 2 157-6, C34, 02672-5, SPE, 60860-7, 5130-0, 71375-3, 6969-0, 6968-2 #### [facility] ([id number]) [address] [place] [address] MUCOUS PRESENT Abnormal NONE [facility] Comment on above: Performed By: #### 2 157-6, C34, 01600-3, SPE, 36682-2, 5130-0, 30763-5, 6969-0, 6968-2 #### [facility] ([id number]) [address] [place] [address] Nitrite Ql (U) Negative Normal NEG [facility] Comment on above: Performed By: #### 2 157-6, C34, 68885-5, SPE, 95883-6, 5130-0, 34203-7, 6969-0, 6968-2 #### [facility] ([id number]) [address] [place] [address] pH (U) 6.0 [pH] Normal 5.0-8.[address] [facility] Comment on above: Performed By: #### 2 157-6, C34, 56999-1, SPE, 55019-2, 5130-0, 96946-2, 6969-0, 6968-2 #### [facility] ([id number]) [address] [place] [address] Protein Ql (U) 100 mg/dL Abnormal NEG [facility] Comment on above: Performed By: #### 2 157-6, C34, 08590-7, SPE, 07157-3, 5130-0, 38655-5, 6969-0, 6968-2 #### [facility] ([id number]) [address] [place] [address] R.B.CELLS <1 Normal 0-[address] [facility] Comment on above: Performed By: #### 2 157-6, C34, 58920-6, SPE, 02087-0, 5130-0, 73207-2, 6969-0, 6968-2 #### [facility] ([id number]) [address] [place] [address] Specific gravity (U) [Rel density] 1.011 Normal 1.003-1.[address] [facility] Comment on above: Performed By: #### 2 157-6, C34, 69363-1, SPE, 99175-5, 5130-0, 77546-1, 6969-0, 6968-2 #### [facility] ([id number]) [address] [place] [address] SQUAMOUS EPITHELIUM <1 Normal 0-5 [facility] Comment on above: Performed By: #### 2 157-6, C34, 16585-7, SPE, 14481-8, 5130-0, 65120-2, 6969-0, 6968-2 #### [facility] ([id number]) [address] [place] [address] TURBIDITY CLEAR Normal CLEAR [facility] Comment on above: Performed By: #### 2 157-6, C34, 01808-6, SPE, 31070-5, 5130-0, 43923-8, 6969-0, 6968-2 #### [facility] ([id number]) [address] [place] [address] Urobilinogen (U) [Mass/Vol] mg/dL Normal <1.[address] [facility] Comment on above: Performed By: #### 2 157-6, C34, 03257-1, SPE, 63184-5, 5130-0, 96430-4, 6969-0, 6968-2 #### [facility] ([id number]) [address] [place] [address] W.B.CELLS <1 Normal 0-[address] [facility] Comment on above: Performed By: #### 2 157-6, C34, 47771-9, SPE, 99351-1, 5130-0, 85091-4, 6969-0, 6968-2 #### [facility] ([id number]) [address] [place] [address] URINE PROTEIN ELECTROPHORESI Son 04-27-2024 UPREL INTERP SEE SEPARATE REPORT Normal Pro [facility] URINE SODIUM,RANDOMon 2023 Sodium (U) [Moles/Vol] 110 mmol/L Normal Pr [facility] Comment on above: Performed By: #### 2 157-6, C34, 92936-6, SPE, 93534-0, 5130-0, 57473-4, 6969-0, 6968-2 #### [facility] ([id number]) [address] [place] [address] CBC AND AUTO DIFFon 04-26-20 24 ABSOLUTE BASOPHIL 0.3 X10E9/L High 0.0-0.2 [facility] Comment on above: Performed By: #### C BCA, CMP, 45309-1, 38088-9, 77994-1 #### [facility] ([id number]) [address] [place] [address], [place] [address] Band form neutrophils/100 WBC (Bld) 1.0 % Normal [facility] Comment on above: Performed By: #### C BCA, CMP, 40799-6, 21874-1, 09330-9 #### [facility] ([id number]) [address] [place] [address] 81052 Basophils/100 WBC (Bld) 1.0 % Normal [facility] Comment on above: Performed By: #### C BCA, CMP, 11614-2, 35255-1, 44143-0 #### [facility] ([id number]) [address] [place] [address] 35658 YOSI 1+ Abnormal NONE [facility] Comment on above: Performed By: #### Rose Marie BCA, CMP, 85407-5, 79129-9, 66091-3 #### [facility] ([id number]) [address] [place] [address] 98286 Erythrocyte distribution width (RBC) [Ratio] 13.7 % Normal 11.5-15.0 [facility] Comment on above: Performed By: #### C BCA, CMP, 37816-6, 16255-4, 27551-5 #### [facility] ([id number]) [address] [place] [address] 27625 Hematocrit (Bld) [Volume fraction] 34.2 % Low 39-49 [facility] Comment on above: Performed By: #### C BCA, CMP, 27098-8, 63947-0, 91892-8 #### [facility] ([id number]) [address] [place] [address] 68648 Hemoglobin (Bld) [Mass/Vol] 11.7 g/dL Low 13.0-17.0 [facility] Comment on above: Performed By: #### Rose Marie BCA, CMP, 88066-7, 29729-0, 79089-4 #### [facility] ([id number]) [address] [place] [address] 79606 Lymphocytes (Bld) [#/Vol] 10.9 10*3/uL High 1.0-3.5 [facility] Comment on above: Performed By: #### C ABIGAIL, CMP, 38781-3, 45043-5, 26092-5 #### [facility] ([id number]) [address] [place] [address] 35835 Lymphocytes/100 WBC (Bld) 41.0 % Normal [facility] Comment on above: Performed By: #### C ABIGAIL, CMP, , 38487-5, 16299-9 #### [facility] ([id number]) [address] [place] [address] 15180 MCH (RBC) [Entitic mass] 30.9 pg Normal 27-34 [facility] Comment on above: Performed By: #### Rose Marie HAYES, CMP, , 14952-1, 30716-9 #### [facility] ([id number]) [address] [place] [address] 72234 MCHC (RBC) [Mass/Vol] 34.1 g/dL Normal 32-36 [facility] Comment on above: Performed By: #### Rose Marie HAYES, CMP, 82315-3, 97275-9, 05543-9 #### [facility] ([id number]) [address] [place] [address] 29012 MCV (RBC) [Entitic vol] 91 fL Normal 80-100 [facility] Comment on above: Performed By: #### Rose Marie HAYES, CMP, , 74083-0, 58088-4 #### [facility] ([id number]) [address] [place] [address] 76075 Neutrophils (Bld) [#/Vol] 15.5 10*3/uL High 1.5-6.6 [facility] Comment on above: Performed By: #### Rose Marie HAYES, CMP, 83175-4, 09655-9, 20084-1 #### [facility] ([id number]) [address] [place] [address] 99702 OVALOCYTE 1+ Abnormal NONE [facility] Comment on above: Performed By: #### Rose Marie HAYES, CMP, 39053-3, 47534-5, 93279-7 #### [facility] ([id number]) [address] [place] [address] 93184 Platelet mean volume (Bld) [Entitic vol] 9.1 fL Normal 7-12 [facility] Comment on above: Performed By: #### Rose Marie HAYES, CMP, 89073-8, 23336-2, 57245-8 #### [facility] ([id number]) [address] [place] [address] 24104 Platelets (Bld) [#/Vol] 198 10*3/uL Normal 150-450 [facility] Comment on above: Performed By: #### Rose Marie HAYES, CMP, , 99037-1, 73633-4 #### [facility] ([id number]) [address] [place] [address] 16666 RBC COUNT 3.77 X10E12/L Low 4.10-5.70 [facility] Comment on above: Performed By: #### Rose Marie HAYES, CMP, 36433-1, 54662-0, 97270-4 #### [facility] ([id number]) [address] [place] [address] 69798 SEG NEUTROPHIL 57.0 % Normal [facility] Comment on above: Performed By: #### Rose Marie BCA, CMP, 37237-7, 85643-7, 83704-0 #### [facility] ([id number]) [address] [place] [address] 32847 WBC (Bld) [#/Vol] 26.4 10*3/uL High 4.0-11.0 [facility] Comment on above: Performed By: #### C BCA, CMP, 34001-6, 34311-4, 88756-4 #### [facility] ([id number]) [address] [place] [address] 58357 Eosinophils (Bld) [#/Vol] 0.4 10*3/uL Normal 0.0-0.4 [facility] Comment on above: Performed By: #### C BCA, CMP, 60591-9, 94711-8, 31018-5 #### [facility] ([id number]) [address] [place] [address] 39773 Eosinophils/100 WBC (Bld) 1.0 % Normal [facility] Comment on above: Performed By: #### C ABIGAIL, CMP, , 24376-0, 25594-7 #### [facility] ([id number]) [address] [place] [address] 30936 Erythrocyte distribution width (RBC) [Ratio] 14.0 % Normal 11.5-15.0 [facility] Comment on above: Performed By: #### C BCA, CMP, , 00044-8, 51025-2 #### [facility] ([id number]) [address] [place] [address] 30703 Hematocrit (Bld) [Volume fraction] 38.0 % Low 39-49 [facility] Comment on above: Performed By: #### C BCA, CMP, 24949-0, 89247-5, 46923-1 #### [facility] ([id number]) [address] [place] [address] 70172 Hemoglobin (Bld) [Mass/Vol] 12.5 g/dL Low 13.0-17.0 [facility] Comment on above: Performed By: #### C BCA, CMP, 45032-5, 53271-1, 45037-9 #### [facility] ([id number]) [address] [place] [address] 59254 Lymphocytes (Bld) [#/Vol] 30.6 10*3/uL High 1.0-3.5 [facility] Comment on above: Performed By: #### Rose Marie BCA, CMP, 75654-3, 76415-1, 72862-4 #### [facility] ([id number]) [address] [place] [address] 85909 Lymphocytes/100 WBC (Bld) 68.0 % Normal [facility] Comment on above: Performed By: #### Rose Marie BCA, CMP, , 36963-5, 67898-3 #### [facility] ([id number]) [address] [place] [address] 40318 MCH (RBC) [Entitic mass] 30.4 pg Normal 27-34 [facility] Comment on above: Performed By: #### Rose Marie HAYES, CMP, 41693-4, 46695-0, 70914-6 #### [facility] ([id number]) [address] [place] [address] 34236 MCHC (RBC) [Mass/Vol] 32.9 g/dL Normal 32-36 [facility] Comment on above: Performed By: #### Rose Marie BCA, CMP, 91854-0, 02006-8, 46875-4 #### [facility] ([id number]) [address] [place] [address] 97768 MCV (RBC) [Entitic vol] 93 fL Normal 80-100 [facility] Comment on above: Performed By: #### Rose Marie BCA, CMP, 80263-1, 59422-9, 00684-9 #### [facility] ([id number]) [address] [place] [address] 04588 Monocytes (Bld) [#/Vol] 0.9 10*3/uL Normal 0-0.9 [facility] Comment on above: Performed By: #### Rose Marie HAYES, CMP, 81112-8, 99426-8, 66335-2 #### [facility] ([id number]) [address] [place] [address] 44450 Monocytes/100 WBC (Bld) 2.0 % Normal [facility] Comment on above: Performed By: #### Rose Marie HAYES, CMP, 60481-1, 23401-5, 58017-7 #### [facility] ([id number]) [address] [place] [address] 85353 Neutrophils (Bld) [#/Vol] 13.0 10*3/uL High 1.5-6.6 [facility] Comment on above: Performed By: #### Rose Marie HAYES, CMP, , 64863-0, 43460-0 #### [facility] ([id number]) [address] [place] [address] 04282 Platelet mean volume (Bld) [Entitic vol] 8.8 fL Normal 7-12 [facility] Comment on above: Performed By: #### Rose Marie HAYES, CMP, 43920-0, 94158-2, 59780-3 #### [facility] ([id number]) [address] [place] [address] 14717 Platelets (Bld) [#/Vol] 302 10*3/uL Normal 150-450 [facility] Comment on above: Performed By: #### Rose Marie BCA, CMP, 98192-9, 74796-9, 41651-2 #### [facility] ([id number]) [address] [place] [address] 66006 RBC COUNT 4.10 X10E12/L Normal 4.10-5.70 [facility] Comment on above: Performed By: #### Rose Marie BCA, CMP, 09863-4, 21231-5, 20748-5 #### [facility] ([id number]) [address] [place] [address] 06029 RBC morphology finding Nom (Bld) REVIEWED Normal [facility] Comment on above: Performed By: #### C BCA, CMP, 05249-0, 73049-0, 06713-3 #### [facility] ([id number]) [address] [place] [address] 95576 SEG NEUTROPHIL 29.0 % Normal [facility] Comment on above: Performed By: #### C BCA, CMP, 93867-8, 29258-7, 28838-0 #### [facility] ([id number]) [address] [place] [address] 67791 WBC (Bld) [#/Vol] 44.9 10*3/uL High 4.0-11.0 [facility] Comment on above: Performed By: #### C BCA, CMP, 99074-2, 31947-0, 57502-9 #### [facility] ([id number]) [address] [place] [address] 66130 COMPREHENSIVE METABOLIC PANE Woody 04-26-2024 Albumin [Mass/Vol] 3.7 g/dL Normal 3.2-5.3 [facility] Comment on above: Performed By: #### C MP, 19462-5, CBCA, 12206-2, 12777-5, PINR, 76495-9 #### [facility] ([id number]) [address] [place] [address] 34652 ALP [Catalytic activity/Vol] 133 U/L High 39-130 [facility] Comment on above: Performed By: #### C MP, 97477-4, CBCA, 50709-8, 00360-0, PINR, 84833-5 #### [facility] ([id number]) [address] [place] [address] 11532 ALT [Catalytic activity/Vol] 87 U/L High 0-40 [facility] Comment on above: Performed By: #### C MP, 45941-8, CBCA, 94686-2, 16863-1, PINR, 21295-5 #### [facility] ([id number]) [address] [place] [address] 58078 Anion gap [Moles/Vol] 7 mmol/L Normal 5-15 [facility] Comment on above: Performed By: #### C MP, 33795-9, CBCA, 21086-3, 39694-2, PINR, 78665-8 #### [facility] ([id number]) [address] [place] [address] 71712 AST [Catalytic activity/Vol] 62 U/L High 0-41 [facility] Comment on above: Performed By: #### C MP, 63623-6, CBCA, 01482-2, 27198-9, PINR, 34788-3 #### [facility] ([id number]) [address] [place] [address] 35680 Bilirubin [Mass/Vol] 0.5 mg/dL Normal 0.3-1.2 [facility] Comment on above: Performed By: #### C MP, 49577-9, CBCA, 31201-8, 13485-3, PINR, 09537-2 #### [facility] ([id number]) [address] [place] [address] 93527 Calcium [Mass/Vol] 8.8 mg/dL Normal 8.5-10.5 [facility] Comment on above: Performed By: #### C MP, 18281-7, CBCA, 90226-4, 60756-3, PINR, 77603-7 #### [facility] ([id number]) [address] [place] [address] 33420 Chloride [Moles/Vol] 107 mmol/L Normal 98-109 [facility] Comment on above: Performed By: #### C MP, 81559-7, CBCA, 00814-1, 72156-9, PINR, 68611-5 #### [facility] ([id number]) [address] [place] [address] 38231 CO2 [Moles/Vol] 23 mmol/L Normal 22-32 [facility] Comment on above: Performed By: #### C MP, 07227-1, CBCA, 74180-6, 82823-3, PINR, 36104-4 #### [facility] ([id number]) [address] [place] [address] 55699 Creatinine [Mass/Vol] 1.50 mg/dL High 0.70-1.20 [facility] Comment on above: Result Comment: METH OD TRACEABLE TO IDMS STANDARD Performed By: #### C MP, 51801-9, CBCA, 49333-5, 05716-9, PINR, 56608-2 #### [facility] ([id number]) [address] [place] [address] 84274 GFR/1.73 sq M.predicted among non-blacks MDRD (S/P/Bld) [Vol rate/Area] 48 mL/min/{1.73_m2} Low >59 [facility] Comment on above: Result Comment: Reported eGFR is based on the CKD-EPI 2020 equation that does not use a race coefficient. Performed By: #### C MP, 82045-2, CBCA, 42881-9, 58184-3, PINR, 11047-2 #### [facility] ([id number]) [address] [place] [address] 14985 Glucose [Mass/Vol] 358 mg/dL High 65-99 [facility] Comment on above: Performed By: #### C MP, 54196-7, CBCA, 83145-2, 44083-2, PINR, 50790-2 #### [facility] ([id number]) [address] [place] [address] 03098 Potassium [Moles/Vol] 4.4 mmol/L Normal 3.5-5.0 [facility] Comment on above: Performed By: #### C MP, 27968-1, CBCA, 69573-2, 05940-1, PINR, 91448-8 #### [facility] ([id number]) [address] [place] [address] 73871 Protein [Mass/Vol] 7.0 g/dL Normal 6.0-8.0 [facility] Comment on above: Performed By: #### C MP, 34232-2, CBCA, 62669-0, 52517-9, PINR, 03914-3 #### [facility] ([id number]) [address] [place] [address] 90569 Sodium [Moles/Vol] 137 mmol/L Normal 134-146 [facility] Comment on above: Performed By: #### C MP, 65634-6, CBCA, 06345-5, 80812-6, PINR, 25371-8 #### [facility] ([id number]) [address] [place] [address] 81789 Urea nitrogen [Mass/Vol] 26 mg/dL Normal 5-27 [facility] Comment on above: Performed By: #### C MP, 55879-2, CBCA, 61099-8, 21390-9, PINR, 44308-9 #### [facility] ([id number]) [address] [place] [address] 47023 Clinical Pathology Blood Sme ar Reviewon 04-26-2024 Clinical Pathology Blood Smear Review Normal [facility] Comment on above: Result Comment: [facility] [address] [place] [address] Clinical Pathology Report Patient Name:ILA MOREJON.:1945 (Age: 78)Gender:MTaken:04/26/2024eported:04/28/2024hysician(s):Nadiya Mascorro M.D. ([phone])Copy To: Rec. #:[id number]: #[id number] Final Pathologic Diagnosis Peripheral blood smear: Absolute [...] Out nxk/04/28/2024Shawn Hernandez MD Interpret[place] [address], License number: [id number]. Clinical History J96.01, J96.02, J81.0, I16.1, I21.4, [...] Received Blood Smear Review Fee Codes(s): 1; 89854 Glucose Glucometer ([facility]) [M ass/Vol]on 04-26-2024 Glucose [Mass/Vol] 211 mg/dL High 65-99 [facility] Glucose [Mass/Vol] 258 mg/dL High 65-99 [facility] Glucose [Mass/Vol] 304 mg/dL High 65-99 [facility] Heparin unfractionated Chrom ogenic method Qn (PPP)on 04-26-2024 ANTI XA UFH <0.04 Low 0.30-0.70 [facility] Comment on above: Result Comment: Opti mal time for testing is 6 hrs post dosage This test is specific for monitoring patients on UFH, and is not recommended for use with other Anti-Xa medications. Performed By: #### C LEÓN HAYES, 09912-1, 06571-7, 60279-2 #### [facility] ([id number]) [address] [place] [address] 88299 ANTI XA UFH 0.28 IU/mL Low 0.30-0.70 [facility] Comment on above: Result Comment: Opti mal time for testing is 6 hrs post dosage This test is specific for monitoring patients on UFH, and is not recommended for use with other Anti-Xa medications. Performed By: #### C LEÓN HAYES, 18309-7, 19220-0, 99723-1 #### [facility] ([id number]) [address] [place] [address] 02961 ANTI XA UFH 0.26 IU/mL Low 0.30-0.70 [facility] Comment on above: Result Comment: Opti mal time for testing is 6 hrs post dosage This test is specific for monitoring patients on UFH, and is not recommended for use with other Anti-Xa medications. Performed By: #### C LEÓN HAYES, 96774-3, 85779-9, 13342-5 #### [facility] ([id number]) [address] [place] [address] 37465 MAGNESIUMon 04-26-2024 Magnesium [Mass/Vol] 2.2 mg/dL Normal 1.8-2.6 [facility] Comment on above: Performed By: #### C BCA, CMP, 23922-4, 49564-4, 51007-3 #### [facility] ([id number]) [address] [place] [address] 91305 Natriuretic peptide B [Mass/ Vol]on 04-26-2024 Natriuretic peptide B (Bld) [Mass/Vol] 1120 pg/mL High <100.0 [facility] Comment on above: Performed By: #### C BCA, CMP, 34181-9, 33347-5, 34456-6 #### [facility] ([id number]) [address] [place] [address] 87278 PROTIME AND INRon 04-26-2024 INR Coag (PPP) [Relative time] 1.0 {INR} Normal 0.8-1.1 [facility] Comment on above: Performed By: #### C BCA, CMP, 86880-0, 70959-9, 82108-5 #### [facility] ([id number]) [address] [place] [address] 23429 PT Coag (PPP) [Time] 11.9 s Normal 9.8-13.2 [facility] Comment on above: Result Comment: NEW REFERENCE RANGE Performed By: #### C BCA, CMP, 05489-1, 46905-5, 10741-9 #### [facility] ([id number]) [address] [place] [address] comment (Bld) [Interp]on 04-26-2024 STAFF REVIEW NOTE Normal [facility] Comment on above: Result Comment: [facility] [address] [place] [address] Clinical Pathology Report Patient Name:ILA MOREJON:1945 (Age: 78)Gender:MTaken:04/26/2024eported:04/28/2024hysician(s):Nadiya Mascorro M.D. ([phone])Copy To: Rec. #:[id number]: #[id number] Final Pathologic Diagnosis Peripheral blood smear: Absolute [...] Out nxk/04/28/2024Shawn Hernandez MD Interpretation [place] [address], License number: [id number]. Clinical History J96.01, J96.02, J81.0, I16.1, I21.4, [...] Received Blood Smear Review Fee Codes(s): 1; 88506 Performed By: #### C BCA, CMP, 68075-4, 22915-0, 62396-0 #### [facility] ([id number]) [address] [place] [address] Procalcitonin IA [Mass/Vol]o n 04-26-2024 PROCALCITONIN 0.07 ng/mL High <0.05 [facility] Comment on above: Result Comment: NOTE <0.50 ng/mL - Low risk of severe sepsis and/or septic shock. <2.00 ng/mL - Recommend retesting within 6-24 hours. >2.00 ng/mL - High risk of sepsis and/or septic shock. Performed By: #### C BCA, [facility], 89264-0, 18578-5, 95305-8 #### [facility] ([id number]) [address] [place] [address] RESP PATHOGENS/LZEY-IsO-2kp 04-26-2024 Respiratory pathogens DNA and RNA panel [...] 2 Not detected (qualifier value) NOTE The 4-Tell Respiratory Panel 2.1 (RP2.1) is a multiplexed [...] other pathogens. The agent(s) detected by the [employer] RP2.1 may not be the definite cause [...] possible respiratory tract infection. Normal [facility] Comment on above: Performed By: #### C ABIGAIL, [facility], 88103-4, 19425-7, 42916-5 #### [facility] ([id number]) [address] [place] [address], [place] [address] Troponin I.cardiac High sens itivity method [Mass/Vol]on 04-26-2024 TROPONIN I, HIGH SENSITIVITY 7140 ng/L Critically high <21 [facility] Comment on above: Result Comment: Elevations of hs-Troponin may be due to causes other than myocardial ischemia. Recommend serial hs-Troponin testing be performed. For the initial evaluation and management of chest pain patients, refer to the algorithms linked below. Emergency Patient: [email or web address] Inpatient: [email or web address] Performed By: #### C BCA, CMP, 35877-0, 13044-1, 97450-6 #### [facility] ([id number]) [address] [place] [address] 3 HOUR TROP I, HIGH SENSITIVITY 6130 ng/L Critically high <21 [facility] Comment on above: Result Comment: Elevations of hs-Troponin may be due to causes other than myocardial ischemia. Recommend serial hs-Troponin testing be performed. For the initial evaluation and management of chest pain patients, refer to the algorithms linked below. Emergency Patient: [email or web address] Inpatient: [email or web address] uh=[email or web address] Performed By: #### C BCA, CMP, 27147-2, 78491-3, 15197-7 #### [facility] ([id number]) [address] [place] [address] 48286 1 HOUR TROP I, HIGH SENSITIVITY 1586 ng/L Critically high <21 [facility] Comment on above: Result Comment: Elevations of hs-Troponin may be due to causes other than myocardial ischemia. Recommend serial hs-Troponin testing be performed. For the initial evaluation and management of chest pain patients, refer to the algorithms linked below. Emergency Patient: [email or web address] uh=[email or web address] Inpatient: [email or web address] uh=[email or web address] Performed By: #### C BCA, CMP, 31378-7, 77005-3, 16060-5 #### [facility] ([id number]) [address] [place] [address] 70166 TROPONIN I, HIGH SENSITIVITY 1129 ng/L Critically high <21 [facility] Comment on above: Result Comment: Elevations of hs-Troponin may be due to causes other than myocardial ischemia. Recommend serial hs-Troponin testing be performed. For the initial evaluation and management of chest pain patients, refer to the algorithms linked below. Emergency Patient: [email or web address] uh=[email or web address] Inpatient: [email or web address] uh=[email or web address] Performed By: #### C BCA, CMP, 67797-3, 54658-7, 90109-7 #### [facility] ([id number]) [address] [place] [address] 79021 VENOUS BLOOD GASon 4 LATASHA'S TEST Normal [facility] Comment on above: Performed By: #### C BCA, CMP, 03160-9, 09440-5, 60034-4 #### [facility] ([id number]) [address] [place] [address] 16557 BASE,DEFICIT 5.0 MMOL/L High 0.0-2.0 [facility] Comment on above: Performed By: #### C BCA, CMP, 36158-1, 50869-6, 13603-4 #### [facility] ([id number]) [address] [place] [address] 42505 Body temperature 98.6 [degF] Normal 37.0 [facility] Comment on above: Performed By: #### C BCA, CMP, 06959-7, 68498-3, 52772-7 #### [facility] ([id number]) [address] [place] [address] 78843 HCO3 (Bld) [Moles/Vol] 24.3 mmol/L High 20.0-24.0 P [facility] Comment on above: Performed By: #### C ABIGAIL, CMP, , 02709-2, 86448-6 #### [facility] ([id number]) [address] [place] [address] 65689 INSP. O2 CONC. 50 % Normal [facility] Comment on above: Performed By: #### C ABIGAIL, CMP, , 25975-8, 64310-5 #### [facility] ([id number]) [address] [place] [address] 39579 Oxygen saturation in Blood 72.0 % Low >80.0 [facility] Comment on above: Performed By: #### C ABIGAIL, LEÓN, , 52593-2, 57236-5 #### [facility] ([id number]) [address] [place] [address] [place] [address] OXYGEN SOURCE NPPV Normal [facility] Comment on above: Performed By: #### C ABIGAIL, CMP, , 44563-5, 84605-4 #### [facility] ([id number]) [address] [place] [address] 37954 PCO2, VENOUS 62.7 MMHG High 35-50 [facility] Comment on above: Performed By: #### C ABIGAIL, CMP, , 99195-1, 22488-4 #### [facility] ([id number]) [address] [place] [address] [place] [address] PH, VENOUS 7.197 Low 7.320-7.42 0 [facility] Comment on above: Performed By: #### C ABIGAIL, CMP, , 01531-5, 86423-5 #### [facility] ([id number]) [address] [place] [address] 01757 PO2, VENOUS 47 MMHG Normal 30-50 [facility] Comment on above: Performed By: #### C BCA, CMP, 85321-8, 72198-4, 30805-7 #### [facility] ([id number]) [address] [place] [address] 70475 SAMPLE SITE N/A Normal [facility] Comment on above: Performed By: #### C BCA, CMP, 22704-3, 11038-8, 17254-6 #### [facility] ([id number]) [address] [place] [address] 76598 SAMPLE TYPE VENOUS Normal [facility] Comment on above: Performed By: #### C BCA, CMP, 84764-3, 16252-6, 44048-4 #### [facility] ([id number]) [address] [place] [address] 67109 XR CHEST 1 VWon 04-26-2024 XR CHEST [...] Superimposed pneumonia not excluded. Approved by Resident: Hector Donaldson MD on 04/26/2024 2:03 AM IAriel MD have personally reviewed the image(s) and agree with and/or edited the report Finalized by Ariel Finn MD on 04/26/2024 2:13 AM Normal [facility] aPTT Coag (PPP) [Time]on aPTT Coag (Bld) [Time] 34 s Normal 26-[address] [facility] Comment on above: Result Comment: NEW REFERENCE RANGE Performed By: #### C BCA, CMP, 97417-3, 76891-2, 19174-0 #### [facility] ([id number]) [address] [facility] [place] [address] [place] angio abd aorta runoffon 04-20-2024 CT angio abd aorta runoff [facility] [address] [place] [address] [place] [address] CT Scan Report Signed Patient: Ila Morejon MR#: [id number] 201 : 1945 Acct:[id number] Age/Sex: 78 / M ADM Date: 04/20/24 Loc: CT Room: Type: [facility] Attending Dr: Luiz Glass MD Copies to: Luiz Glass MD Ordering Provider: Luiz Glass MD Date of Service: 04/20/24 CT/CT angio abd aorta runoff: 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 CTA abdomen, pelvis, and [...] colonic abnormality is seen. Appendix is normal.[ Pelvis:[Prostatomegaly. Urinary bladder is grossly unremarkable.] Peritoneum/Retroperitoneum: No free air or free fluid or lymphadenopathy.[ Abd wall/Bones:Abdominal wall demonstrates no acute findings. Osseous structures demonstrate degenerative change.[ Lower extremities: Left: Moderate calcification of the common femoral artery without critical stenosis or occlusion. White Lead Filterer branches appear patent. SFA demonstrates mild calcification [...] femoral artery without critical stenosis or occlusion. [place] Filterer branches appear patent. SFA demonstrates mild calcification [...] effusions. Impression dictated by: Addy Son Jr., D.O.04/20/2024 2:43 PM Dictation Location: [place] [address] Transcribed By: [facility] 04/20/24 1443 Dictated By: Addy Son Jr, DO 04/20/24 1433 Signed By: 04/20/24 1443 Normal [facility] ISTAT XRay CREon 04-20-2024 ISTAT GFR 47.951 Normal [facility] Comment on above: Result Comment: PERF ORMED BY: [place] [address] PATHOLOGIST [employer] MATT ANTONIO M.D. Performed By: #### I SCRE #### [address] No Panel InformationOrdered By: Luiz Glass on 04-20-2024 Bedside Estimated GFR (eGFR) 47.951 [facility] Whole blood creatinine measu rementOrdered By: Luiz [...] doctor. Performed By: #### I SCRE #### [facility] [address] [place] [id number] [facility] Office Visiton 04-12-2024 Follow-up visit [id number] Lencho Morejon U 1945 M Date Provider Department Center 04/12/2024 [facility] No family history on file Level of Service:52989 NE OFFICE/OUTPATIENT [facility] 60 MINUTES Normal [facility] US art pvr/post [place] 024 US art pvr/post [facility] [address] [place] [address] [place], [place] [id number] Ultrasound Report Signed Patient: Ila Morejon MR#: [id number] 201 : 1945 Acct:[id number] Age/Sex: 78 / M ADM Date: 04/07/24 Loc: Room: Type: [facility] Attending Dr: Luiz Glass MD Ordering Provider: Luiz Glass MD Date of Service: 04/07/24 US/US art pvr/post LE: 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 Copies to: Luiz Glass [...] Luiz Glass MD04/09/2024 11:53 AM Dictation Location: [place] [address] Tech: Lucie Sainz Transcribed By: ZITA 04/09/24 1153 Dictated By: Luiz Glass MD 04/09/24 1151 Signed By: 04/09/24 1153 Normal [facility] CBC AND AUTO DIFFon 03-05-20 ABSOLUTE BASOPHIL 0.2 X10E9/L Normal 0.0-0.2 [facility] Comment on above: Performed By: #### C BCA, CMP, 34784-0, 48504-3, 76073-3 #### [facility] ([id number]) [address] [place] [address] 86880 Basophils/100 WBC (Bld) 1.0 % Normal [facility] Comment on above: Performed By: #### C BCA, CMP, 80036-0, 37211-8, 07071-9 #### [facility] ([id number]) [address] [place] [address] 61684 Erythrocyte distribution width (RBC) [Ratio] 13.6 % Normal 11.5-15.0 [facility] Comment on above: Performed By: #### C BCA, CMP, 88608-5, 17507-7, 99988-0 #### [facility] ([id number]) [address] [place] [address] 36557 Hematocrit (Bld) [Volume fraction] 30.4 % Low 39-49 [facility] Comment on above: Performed By: #### C BCA, CMP, 12970-9, 70211-6, 65642-6 #### [facility] ([id number]) [address] [place] [address] 26623 Hemoglobin (Bld) [Mass/Vol] 10.5 g/dL Low 13.0-17.0 [facility] Comment on above: Performed By: #### C ABIGAIL, CMP, 45848-7, 68558-0, 17033-8 #### [facility] ([id number]) [address] [place] [address] 55096 Lymphocytes (Bld) [#/Vol] 8.6 10*3/uL High 1.0-3.5 [facility] Comment on above: Performed By: #### C ABIGAIL, CMP, 98979-2, 50457-3, 91288-7 #### [facility] ([id number]) [address] [place] [address] 67704 Lymphocytes/100 WBC (Bld) 47.0 % Normal [facility] Comment on above: Performed By: #### C BCA, CMP, 84739-8, 57595-7, 69436-4 #### [facility] ([id number]) [address] [place] [address] 41613 MCH (RBC) [Entitic mass] 31.2 pg Normal 27-34 [facility] Comment on above: Performed By: #### Rose Marie BCA, CMP, 94197-0, 98941-8, 42978-7 #### [facility] ([id number]) [address] [place] [address] 13037 MCHC (RBC) [Mass/Vol] 34.7 g/dL Normal 32-36 [facility] Comment on above: Performed By: #### C BCA, CMP, 97037-4, 53702-6, 35377-1 #### [facility] ([id number]) [address] [place] [address] 87820 MCV (RBC) [Entitic vol] 90 fL Normal 80-100 [facility] Comment on above: Performed By: #### C BCA, CMP, 86504-7, 46613-0, 69035-8 #### [facility] ([id number]) [address] [place] [address] 61647 Monocytes (Bld) [#/Vol] 0.7 10*3/uL Normal 0-0.9 [facility] Comment on above: Performed By: #### Rose Marie BCA, CMP, 21467-5, 26964-7, 77158-4 #### [facility] ([id number]) [address] [place] [address] 15274 Monocytes/100 WBC (Bld) 4.0 % Normal [facility] Comment on above: Performed By: #### Rose Marie BCA, CMP, 86882-6, 50926-3, 90586-5 #### [facility] ([id number]) [address] [place] [address] 80756 Neutrophils (Bld) [#/Vol] 8.7 10*3/uL High 1.5-6.6 [facility] Comment on above: Performed By: #### Rose Marie BCA, CMP, 78028-3, 84764-6, 56350-9 #### [facility] ([id number]) [address] [place] [address] 55784 Platelet mean volume (Bld) [Entitic vol] 8.9 fL Normal 7-12 [facility] Comment on above: Performed By: #### Rose Marie BCA, CMP, 12907-0, 83483-2, 75758-0 #### [facility] ([id number]) [address] [place] [address] 46153 Platelets (Bld) [#/Vol] 165 10*3/uL Normal 150-450 [facility] Comment on above: Performed By: #### Rose Marie BCA, CMP, 92074-2, 32502-9, 70806-1 #### [facility] ([id number]) [address] [place] [address] 44246 RBC COUNT 3.38 X10E12/L Low 4.10-5.70 [facility] Comment on above: Performed By: #### C BCA, CMP, 41617-8, 40654-1, 80988-3 #### [facility] ([id number]) [address] [place] [address] 07754 RBC morphology finding Nom (Bld) NORMAL Normal [facility] Comment on above: Performed By: #### C BCA, CMP, 95483-1, 76739-2, 09650-9 #### [facility] ([id number]) [address] [place] [address] 16177 SEG NEUTROPHIL 48.0 % Normal [facility] Comment on above: Performed By: #### C BCA, CMP, 35515-1, 91056-3, 07802-3 #### [facility] ([id number]) [address] [place] [address] 47675 WBC (Bld) [#/Vol] 18.2 10*3/uL High 4.0-11.0 [facility] Comment on above: Performed By: #### C BCA, CMP, 41040-0, 53009-1, 58623-0 #### [facility] ([id number]) [address] [place] [address] 76594 COMPREHENSIVE METABOLIC PANE Woody 03-05-2024 Albumin [Mass/Vol] 3.4 g/dL Normal 3.2-5.3 [facility] Comment on above: Performed By: #### C BCA, CMP, 77087-3, 32149-3, 40051-6 #### [facility] ([id number]) [address] [place] [address] 91804 ALP [Catalytic activity/Vol] 73 U/L Normal 39-130 [facility] Comment on above: Performed By: #### C BCA, CMP, 68265-3, 50558-5, 30516-4 #### [facility] ([id number]) [address] [place] [address] 09117 ALT [Catalytic activity/Vol] 22 U/L Normal 0-40 [facility] Comment on above: Performed By: #### C BCA, CMP, 18359-7, 14927-2, 80566-9 #### [facility] ([id number]) [address] [place] [address] 22189 Anion gap [Moles/Vol] 6 mmol/L Normal 5-15 [facility] Comment on above: Performed By: #### C BCA, CMP, 23256-6, 79450-8, 43912-7 #### [facility] ([id number]) [address] [place] [address] 06360 AST [Catalytic activity/Vol] 25 U/L Normal 0-41 [facility] Comment on above: Performed By: #### C BCA, CMP, 97908-5, 35510-6, 89604-4 #### [facility] ([id number]) [address] [place] [address] 26531 Bilirubin [Mass/Vol] 0.8 mg/dL Normal 0.3-1.2 [facility] Comment on above: Performed By: #### C BCA, CMP, 17226-4, 98570-0, 66535-8 #### [facility] ([id number]) [address] [place] [address] 68396 Calcium [Mass/Vol] 8.6 mg/dL Normal 8.5-10.5 [facility] Comment on above: Performed By: #### C BCA, CMP, 08849-4, 33759-2, 70523-6 #### [facility] ([id number]) [address] [place] [address] 60614 Chloride [Moles/Vol] 106 mmol/L Normal 98-109 [facility] Comment on above: Performed By: #### C ABIGAIL, LEÓN, , 89415-6, 40831-9 #### [facility] ([id number]) [address] [place] [address] 73571 CO2 [Moles/Vol] 21 mmol/L Low 22-32 [facility] Comment on above: Performed By: #### C ABIGAIL, CMP, , 85209-1, 44658-1 #### [facility] ([id number]) [address] [place] [address] 68723 Creatinine [Mass/Vol] 1.83 mg/dL High 0.70-1.20 [facility] Comment on above: Result Comment: METH OD TRACEABLE TO IDMS STANDARD Performed By: #### C LEÓN HAYES, , 98002-1, 30025-8 #### [facility] ([id number]) [address] [place] [address] 92246 GFR/1.73 sq M.predicted among non-blacks MDRD (S/P/Bld) [Vol rate/Area] 38 mL/min/{1.73_m2} Low >59 [facility] Comment on above: Result Comment: Reported eGFR is based on the CKD-EPI 2020 equation that does not use a race coefficient. Performed By: #### C ABIGAIL, CMP, , 31907-0, 79263-2 #### [facility] ([id number]) [address] [place] [address] 65037 Glucose [Mass/Vol] 277 mg/dL High 65-99 [facility] Comment on above: Performed By: #### C ABIGAIL, CMP, , 11996-6, 47587-8 #### [facility] ([id number]) [address] [place] [address] 24130 Potassium [Moles/Vol] 5.0 mmol/L Normal 3.5-5.0 [facility] Comment on above: Performed By: #### C ABIGAIL, CMP, 59579-6, 70288-0, 63751-6 #### [facility] ([id number]) [address] [place] [address] 01509 Protein [Mass/Vol] 5.9 g/dL Low 6.0-8.0 [facility] Comment on above: Performed By: #### C BCA, CMP, 99042-8, 12919-6, 60070-4 #### [facility] ([id number]) [address] [place] [address] 40261 Sodium [Moles/Vol] 133 mmol/L Low 134-146 [facility] Comment on above: Performed By: #### C ABIGAIL, CMP, , 70122-9, 73110-5 #### [facility] ([id number]) [address] [place] [address] 75727 Urea nitrogen [Mass/Vol] 35 mg/dL High 5-27 [facility] Comment on above: Performed By: #### C BCA, CMP, 55271-2, 54838-8, 37551-5 #### [facility] ([id number]) [address] [place] [address] 78599 Glucose Glucometer (BldC) [M ass/Vol]on 03-05-2024 Glucose [Mass/Vol] 267 mg/dL High 65-99 [facility] MAGNESIUMon 03-05-2024 Magnesium [Mass/Vol] 2.0 mg/dL Normal 1.8-2.6 [facility] Comment on above: Performed By: #### C BCA, CMP, 91653-1, 36159-4, 61773-9 #### [facility] ([id number]) [address] [place] [address] 41200 Natriuretic peptide B [Mass/ Vol]on 03-05-2024 Natriuretic peptide B (Bld) [Mass/Vol] 440 pg/mL High <100.0 [facility] Comment on above: Performed By: #### C LEÓN HAYES, 33899-3, 36427-6, 08266-7 #### [facility] ([id number]) [address] [place] [address] 43310 Troponin I.cardiac High sens itivity method [Mass/Vol]on 03-05-2024 1 HOUR TROP I, HIGH SENSITIVITY 15 ng/L Normal <21 [facility] Comment on above: Performed By: #### 8 9579-7 #### [facility] ([id number]) [address] [place] [address] 78912 TROPONIN I, HIGH SENSITIVITY 15 ng/L Normal <21 [facility] Comment on above: Performed By: #### C ABIGAIL [facility], 74466-2, 20189-8, 21490-5 #### [facility] ([id number]) [address] [place] [address] [place] [address] URN MACROSCOPIC NURon 2023 BILIRUBIN RALPH Negative Normal NEG [facility] Comment on above: Performed By: #### N UM #### [facility] ([id number]) [address] [place] [address] [place] [address] BLOOD/HGB RALPH Trace Abnormal NEG [facility] Comment on above: Performed By: #### N UM #### [facility] ([id number]) [address] [place] [address] [place] [address] GLUCOSE RALPH 100 mg/dL Abnormal NEG [facility] Comment on above: Performed By: #### N UM #### [facility] ([id number]) [address] [place] [address] [place] [address] KETONES RALPH Negative Normal NEG [facility] Comment on above: Performed By: #### N UM #### [facility] ([id number]) [address] [place] [address] 33351 LEUKOCYTE ESTERASE RALPH Negative Normal NEG [facility] Comment on above: Performed By: #### N UM #### [facility] ([id number]) [address] [place] [address] 35710 NITRITE RALPH Negative Normal NEG [facility] Comment on above: Performed By: #### N UM #### [facility] ([id number]) [address] [place] [address] 70181 PH RALPH 5.5 Normal 5.0-8.5 [facility] Comment on above: Performed By: #### N UM #### [facility] ([id number]) [address] [place] [address] 09071 PROTEIN RALPH >=300 Abnormal NEG [facility] Comment on above: Performed By: #### N UM #### [facility] ([id number]) [address] [place] [address] 26290 SPECIFIC GRAVITY RALPH >=1.030 Normal 1.003-[address] [place] [address] Comment on above: Performed By: #### N UM #### [facility] ([id number]) [address] [place] [address] 67517 UROBILINOGEN RALPH 0.2 eu/dL Normal <1.[address] [facility] Comment on above: Performed By: #### N UM #### [facility] ([id number]) [address] [place] [address] 27108 CBC W Auto Differential pane l (Bld)on 01-16-2024 Basophils (Bld) [#/Vol] 0.17 10*3/uL High <0.11 [facility] Comment on above: Order Comment: Speci men Type: BLOOD SPECIMENOrdering Facility: [facility] Address: [address] [place] [address] 91095 Performed By: #### 5 7021-8 ####[facility] LABCLIA [id number] [address] LABCLIA [id number] [place] [address] [place] Basophils/100 WBC (Bld) 1.0 % Normal [facility] Comment on above: Order Comment: Speci men Type: BLOOD SPECIMENOrdering Facility: [facility] Address: [address] [place] [address] Performed By: #### 5 7021-8 ####[facility] LABCLIA [id number] [address] LABCLIA [id number] [place] [address] [place] Differential cell count method Nom (Bld) Manual Normal [facility] Comment on above: Order Comment: Speci men Type: BLOOD SPECIMENOrdering Facility: [facility] Address: [address] [place] [address] Performed By: #### 5 7021-8 ####[facility] LABCLIA [id number] [address] LABCLIA [id number] [place] [address] [place] Eosinophils (Bld) [#/Vol] 0.17 10*3/uL Normal <0.46 [facility] Comment on above: Order Comment: Speci men Type: BLOOD SPECIMENOrdering Facility: [facility] Address: [address] [place] [address] Performed By: #### 5 7021-8 ####[facility] LABCLIA [id number] [address] LABCLIA [id number] [place] [address] [place] Eosinophils/100 WBC (Bld) 1.0 % Normal [facility] Comment on above: Order Comment: Speci men Type: BLOOD SPECIMENOrdering Facility: [facility] Address: [address] [place] [address] Performed By: #### 5 7021-8 ####[facility] LABCLIA [id number] [address] LABCLIA [id number] [place] [address] [place] Erythrocyte distribution width (RBC) [Ratio] 13.4 % Normal 11.5-15.0 [facility] Comment on above: Order Comment: Speci men Type: BLOOD SPECIMENOrdering Facility: [facility] Address: [address] [place] [address] Performed By: #### 5 7021-8 ####[facility] LABCLIA [id number] [address] LABCLIA [id number] [place] [address] [place] Hematocrit (Bld) [Volume fraction] 30.8 % Low 39.0-51.0 [facility] Comment on above: Order Comment: Speci men Type: BLOOD SPECIMENOrdering Facility: [facility] Address: [address] [place] [address] Performed By: #### 5 7021-8 ####[facility] LABCLIA [id number] [address] LABCLIA [id number] [place] [address] [place] Hemoglobin (Bld) [Mass/Vol] 10.6 g/dL Low 13.0-17.0 [facility] Comment on above: Order Comment: Speci men Type: BLOOD SPECIMENOrdering Facility: [facility] Address: [address] [place] [address] Performed By: #### 5 7021-8 ####[facility] LABCLIA [id number] [place] [id number] LABCLIA [id number] [place] [id number] [place] Lymphocytes (Bld) [#/Vol] 10.02 10*3/uL High 1.00-4.00 [facility] Comment on above: Order Comment: Speci men Type: BLOOD SPECIMENOrdering Facility: [facility] Address: [address] [place] [address] Performed By: #### 5 7021-8 ####[facility] LABCLIA [id number] [address] LABCLIA [id number] [place] [address] [place] Lymphocytes/100 WBC (Bld) 59.0 % Normal [facility] Comment on above: Order Comment: Speci men Type: BLOOD SPECIMENOrdering Facility: [facility] Address: [address] [place] [address] Performed By: #### 5 7021-8 ####[facility] LABCLIA [id number] [address] LABCLIA [id number] [place] [address] [place] MCH (RBC) [Entitic mass] 31.4 pg Normal 26.0-34.0 [facility] Comment on above: Order Comment: Speci men Type: BLOOD SPECIMENOrdering Facility: [facility] Address: [address] [place] [address] Performed By: #### 5 7021-8 ####[facility] LABCLIA [id number] [address] LABCLIA [id number] [place] [address] [place] MCHC (RBC) [Mass/Vol] 34.4 g/dL Normal 30.5-36.[address] [facility] Comment on above: Order Comment: Speci men Type: BLOOD SPECIMENOrdering Facility: [facility] Address: [address] [place] [address] Performed By: #### 5 7021-8 ####[facility] LABCLIA [id number] [address] LABCLIA [id number] [place] [address] [place] MCV (RBC) [Entitic vol] 91.1 fL Normal 80.0-100.0 [facility] Comment on above: Order Comment: Speci men Type: BLOOD SPECIMENOrdering Facility: [facility] Address: [address] [place] [address] Performed By: #### 5 7021-8 ####[facility] LABCLIA [id number] [address] LABCLIA [id number] [place] [address] [place] Monocytes (Bld) [#/Vol] 0.51 10*3/uL Normal <0.87 [facility] Comment on above: Order Comment: Speci men Type: BLOOD SPECIMENOrdering Facility: [facility] Address: [address] [place] [address] Performed By: #### 5 7021-8 ####[facility] LABCLIA [id number] [address] LABCLIA [id number] [place] [address] [place] Monocytes/100 WBC (Bld) 3.0 % Normal [facility] Comment on above: Order Comment: Speci men Type: BLOOD SPECIMENOrdering Facility: [facility] Address: [address] [place] [address] Performed By: #### 5 7021-8 ####[facility] LABCLIA [id number] [address] LABCLIA [id number] [place] [address] [place] Neutrophils (Bld) [#/Vol] 6.11 10*3/uL Normal 1.45-7.50 [facility] Comment on above: Order Comment: Speci men Type: BLOOD SPECIMENOrdering Facility: [facility] Address: [address] [place] [address] Performed By: #### 5 7021-8 ####[facility] LABCLIA [id number] [address] LABCLIA [id number] [place] [address] [place] Neutrophils/100 WBC (Bld) 36.0 % Normal [facility] Comment on above: Order Comment: Speci men Type: BLOOD SPECIMENOrdering Facility: [facility] Address: [address] [place] [address] Performed By: #### 5 7021-8 ####[facility] LABCLIA [id number] [address] LABCLIA [id number] [place] [address] [place] Nucleated RBC (Bld) [#/Vol] 10*3/uL Normal <0.01 [facility] Comment on above: Order Comment: Speci men Type: BLOOD SPECIMENOrdering Facility: [facility] Address: [address] [place] [address] Performed By: #### 5 7021-8 ####[facility] LABCLIA [id number] [address] LABCLIA [id number] [place] [address] [place] Nucleated RBC/100 WBC (Bld) [Ratio] 0.0 /100 WBC Normal [facility] Comment on above: Order Comment: Speci men Type: BLOOD SPECIMENOrdering Facility: [facility] Address: [address] [place] [address] Performed By: #### 5 7021-8 ####[facility] LABCLIA [id number] [address] LABCLIA [id number] [place] [address] [place] Ovalocytes LM Ql (Bld) Few Normal Cl [facility] Comment on above: Order Comment: Speci men Type: BLOOD SPECIMENOrdering Facility: [facility] Address: [address] [place] [address] Performed By: #### 5 7021-8 ####[facility] LABCLIA [id number] [address] LABCLIA [id number] [place] [address] [place] Platelet mean volume (Bld) [Entitic vol] 10.2 fL Normal 9.0-12.7 [facility] Comment on above: Order Comment: Speci men Type: BLOOD SPECIMENOrdering Facility: [facility] Address: [address] [place] [address] Performed By: #### 5 7021-8 ####[facility] LABCLIA [id number] [address] LABCLIA [id number] [place] [address] [place] Platelets (Bld) [#/Vol] 172 10*3/uL Normal 150-400 [facility] Comment on above: Order Comment: Speci men Type: BLOOD SPECIMENOrdering Facility: [facility] Address: [address] [place] [address] Performed By: #### 5 7021-8 ####[facility] LABCLIA [id number] [address] LABCLIA [id number] [place] [address] [place] Platelets Estimate (Bld) [#/Vol] Adequate Normal [facility] Comment on above: Order Comment: Speci men Type: BLOOD SPECIMENOrdering Facility: [facility] Address: [address] [place] [address] Performed By: #### 5 7021-8 ####[facility] LABCLIA [id number] [address] LABCLIA [id number] [place] [address] [place] Polychromasia LM Ql (Bld) Slight Normal [facility] Comment on above: Order Comment: Speci men Type: BLOOD SPECIMENOrdering Facility: [facility] Address: [address] [place] [address] Performed By: #### 5 7021-8 ####[facility] LABCLIA [id number] [address] LABCLIA [id number] [place] [address] [place] RBC (Bld) [#/Vol] 3.38 10*6/uL Low 4.20-6.00 [facility] Comment on above: Order Comment: Speci men Type: BLOOD SPECIMENOrdering Facility: [facility] Address: [address] [place] [address] Performed By: #### 5 7021-8 ####[facility] LABCLIA [id number] [address] LABCLIA [id number] [place] [address] [place] RBC FRAGMENTS Few Abnormal None Seen [facility] Comment on above: Order Comment: Speci men Type: BLOOD SPECIMENOrdering Facility: [facility] Address: [address] [place] [address] Performed By: #### 5 7021-8 ####[facility] LABCLIA [id number] [place], [place] [address] LABCLIA [id number] [place] [address] [place] RED CELL MORPH Reviewed: see result s of individual morphologies Normal [facility] Comment on above: Order Comment: Speci men Type: BLOOD SPECIMENOrdering Facility: [facility] Address: [address] [place] [address] Performed By: #### 5 7021-8 ####[facility] LABCLIA [id number] [address] LABCLIA [id number] [place] [address] [place] WBC (Bld) [#/Vol] 16.98 10*3/uL High 3.70-11.00 [facility] Comment on above: Order Comment: Speci men Type: BLOOD SPECIMENOrdering Facility: [facility] Address: [address] [place] [address] Performed By: #### 5 7021-8 ####[facility] LABCLIA [id number] [address] LABCLIA [id number] [place] [address] [place] CNOVSPon 01-16-2024 OVS Visit (SP) Office ([facility]) ILA MOREJON ([id number]) 1945 M Date Time Provider Department 01/16/24 2:45 PM DIPTI BECKHAM During your visit today, we recorded the following information about you: Temperature Pulse Respiration Blood pressure 97.2 degrees 45/minute 18/minute 132/35 Weight 73.2 kg Dipti Beckham MD 01/16/2024 2:33 PM Signed RTC in 6 months, with labs same day. Dipti Beckham MD 01/16/2024 6:22 PM Signed NAME: Ila Morejon CLINIC NO.: [id number] DATE OF SERVICE: January 16, 2024 (Lory) [...] Reverse Chronological Order 04/04/2023 - Admitted to [facility] with NSTEMI Underwent placement of drug eluting [...] Has been sleeping more, especially since the CA. Updated Visit, December 27, 2022: 13 year [...] lesions, wounds (more content not included)... Normal [facility] Comprehensive metabolic 2000 panelon 01-16-2024 Albumin [Mass/Vol] 3.8 g/dL Low 3.9-4.9 [facility] Comment on above: Order Comment: Speci men Type: BLOOD SPECIMENOrdering Facility: [facility] Address: [address] [place] [address] Performed By: #### 2 532-0, 67800-3 ####[facility] LABCLIA [id number] [place] [address] ALP [Catalytic activity/Vol] 84 U/L Normal 38-113 [facility] Comment on above: Order Comment: Speci men Type: BLOOD SPECIMENOrdering Facility: [facility] Address: [address] [place] [address] Performed By: #### 2 532-0, 70466-9 ####[facility] LABCLIA [id number] [place] [address] ALT [Catalytic activity/Vol] 34 U/L Normal 10-54 [facility] Comment on above: Order Comment: Speci men Type: BLOOD SPECIMENOrdering Facility: [facility] Address: [address] [place] [address] Performed By: #### 2 532-0, ####[facility] LABCLIA [id number] [place] [address] Anion gap [Moles/Vol] 6 mmol/L Low 8-[address] [facility] Comment on above: Order Comment: Speci men Type: BLOOD SPECIMENOrdering Facility: [facility] Address: [address] [place] [address] Performed By: #### 2 532-0, ####[facility] LABCLIA [id number] [place] [address] AST [Catalytic activity/Vol] 26 U/L Normal 14-40 [facility] Comment on above: Order Comment: Speci men Type: BLOOD SPECIMENOrdering Facility: [facility] Address: [address] [place] [address] Performed By: #### 2 532-0, ####[facility] LABCLIA [id number] [place] [address] Bilirubin [Mass/Vol] 0.4 mg/dL Normal 0.2-1.3 [facility] Comment on above: Order Comment: Speci men Type: BLOOD SPECIMENOrdering Facility: [facility] Address: [address] [place] [address] Performed By: #### 2 532-0, ####[facility] LABCLIA [id number] [place] [address] Calcium [Mass/Vol] 9.8 mg/dL Normal 8.5-10.2 [facility] Comment on above: Order Comment: Speci men Type: BLOOD SPECIMENOrdering Facility: [facility] Address: [address] [place] [address] Performed By: #### 2 532-0, ####[facility] LABCLIA [id number] [place] [address] Chloride [Moles/Vol] 107 mmol/L Normal 98-107 [facility] Comment on above: Order Comment: Speci men Type: BLOOD SPECIMENOrdering Facility: [facility] Address: [address] [place] [address] Performed By: #### 2 532-0, 11419-7 ####[facility] LABCLIA [id number] [place] [address] CO2 [Moles/Vol] 24 mmol/L Normal 22-30 [facility] Comment on above: Order Comment: Speci men Type: BLOOD SPECIMENOrdering Facility: [facility] Address: [address] [place] [address] Performed By: #### 2 532-0, 56289-8 ####[facility] LABCLIA [id number] [place] [address] Creatinine [Mass/Vol] 1.64 mg/dL High 0.73-1.[address] [facility] Comment on above: Order Comment: Speci men Type: BLOOD SPECIMENOrdering Facility: [facility] Address: [address] [place] [address] Performed By: #### 2 532-0, 85183-3 ####[facility] LABIA [id number] [place] [address] Creatinine and Glomerular filtration rate.predicted panel (S/P/Bld) 43 mL/min/1.73m??? Low >=60 [facility] Comment on above: Order Comment: Speci men Type: BLOOD SPECIMENOrdering Facility: [facility] Address: [address] [place] [address] Result Comment: Silvana mated Glomerular Filtration Rate [...] actual GFR. Performed By: #### 2 532-0, 37640-6 ####[facility] LABIA [id number] [place] [address] Glucose [Mass/Vol] 180 mg/dL High 74-99 [facility] Comment on above: Order Comment: Speci men Type: BLOOD SPECIMENOrdering Facility: [facility] Address: [address] [place] [address] Result Comment: The [place] [employer] (ADA) provides guidance for cutoff [...] Standards of Medical Care in Diabetes 2016, [place] [employer]. Diabetes Care. 2016.39(Suppl 1). Performed By: #### 2 532-0, 50374-1 ####[facility] LABIA [id number] [place] [address] Potassium [Moles/Vol] 5.2 mmol/L High 3.7-5.[address] [facility] Comment on above: Order Comment: Speci men Type: BLOOD SPECIMENOrdering Facility: [facility] Address: [address] [place] [address] Performed By: #### 2 532-0, 19985-6 ####[facility] LABIA [id number] [place] [address] Protein [Mass/Vol] 6.3 g/dL Normal 6.3-8.0 [facility] Comment on above: Order Comment: Speci men Type: BLOOD SPECIMENOrdering Facility: [facility] Address: [address] [place] [address] Performed By: #### 2 532-0, 72666-0 ####[facility] LABCLIA [id number] [place] [address] Sodium [Moles/Vol] 137 mmol/L Normal 136-144 [facility] Comment on above: Order Comment: Speci men Type: BLOOD SPECIMENOrdering Facility: [facility] Address: [address] [place] [address] Performed By: #### 2 532-0, 80195-5 ####[facility] LABCLIA [id number] [place] [address] Urea nitrogen [Mass/Vol] 29 mg/dL High 9-24 [facility] Comment on above: Order Comment: Speci men Type: BLOOD SPECIMENOrdering Facility: [facility] Address: [address] [place] [address] Performed By: #### 2 532-0, 95536-0 ####[facility] LABCLIA [id number] [place] [address] Ferritin SerPl-mCncon 2023 Ferritin [Mass/Vol] 72.6 ng/mL Normal 30.3-565.7 [facility] Comment on above: Order Comment: Speci men Type: BLOOD SPECIMENOrdering Facility: [facility] Address: [address] [place], [place] [address] Performed By: #### 2 276-4, 2284-8, 33233-3, 9 ####[facility] LABCLIA [id number] [facility] [id number] [address] [place] Folate SerPl-mCncon 01-16-20 Folate [Mass/Vol] 18.7 ng/mL Normal >4.7 [facility] Comment on above: Order Comment: Speci men Type: BLOOD SPECIMENOrdering Facility: [facility] Address: [address] [place], [place] [address] Performed By: #### 2 276-4, 2284-8, 65813-0, 2132-03 ####[facility] LABIA [id number] [place] [id number] [place] Iron and Iron binding capaci ty panelon 01-16-2024 Iron [Mass/Vol] 185 ug/dL Normal 41-186 [facility] Comment on above: Order Comment: Speci men Type: BLOOD SPECIMENOrdering Facility: [facility] Address: [address] [place] [address] Performed By: #### 2 276-4, 2284-8, 43752-6, 2132-03 ####[facility] LABIA [id number] [place] [address] [place] Iron binding capacity [Mass/Vol] 363 ug/dL Normal 232-386 [facility] Comment on above: Order Comment: Speci men Type: BLOOD SPECIMENOrdering Facility: [facility] Address: [address] [place] [address] Performed By: #### 2 276-4, 2284-8, 24370-0, 2132-03 ####[facility] LABIA [id number] [place] [address] [place] Iron/TIBC [Molar ratio] 51.0 % Normal 15.0-57.0 [facility] Comment on above: Order Comment: Speci men Type: BLOOD SPECIMENOrdering Facility: [facility] Address: [address] [place] [address] Performed By: #### 2 276-4, 2284-8, 69604-9, 2132-03 ####[facility] LABIA [id number] [place] [id number] [place] LDH SerPl-cCncon 01-16-2024 LDH [Catalytic activity/Vol] 182 U/L Normal 135-225 [facility] Comment on above: Order Comment: Speci men Type: BLOOD SPECIMENOrdering Facility: [facility] Address: [address] [place] [address] Performed By: #### 2 532-0, 80585-1 ####[facility] LABCLIA [id number] [place] [address] Vit B12 [facility] 024 Cobalamin (Vitamin B12) [Mass/Vol] 1200 pg/mL Normal 232-1245 [facility] Comment on above: Order Comment: Speci men Type: BLOOD SPECIMENOrdering Facility: [facility] Address: [address] [place] [address] Performed By: #### 2 276-4, 2284-8, 44412-0, 2132-9 ####[facility] LABCLIA [id number] [address] [place] 12-27-2023 L Specimen: [id number] Re ceived: 12/29/23 Status: SOUT Req Num: [id number] Spec Type: Impression Subm Dr: Arminda Valverde DO Tissues: PATHPER Procedures: PATHREVIEW Age/ Patient Sex Location Account Attending Physician Ila Morejon 78/M LABELL [id number] Arminda Valverde DO SPEC NUM: [id number] RECD: 12/29/23 STATUS: SOUT REQ NUM: [id number] JERRY: 12/27/[address]: Arminda Valverde DO ENTERED: 12/29/[address] [facility] [address]: Collin Aguirre SPEC TYPE: Impression DEPT: JAY Garay ENTERED BY: [id number] RECV BY: [id number] ORDERED: PATHREVIEW ORDERED: PATHREVIEW Pathologist Review Abnormal [...] of Specimen: [id number] Received: 12/29/23 Status: RAMONA Ge Num: [id number] Spec Type: Impression Subm Dr: Arminda Valverde DO Tissues: PATHPER Procedures: PATHREVIEW Patient: MorejonIla [id number] (Continued) Specimen: [id number] Received: 12/29/23 (Continued) Pathologist Review (Continued) Signed (signature on file) Nicole Dominguez MD 12/29/23 1731 Specimen: [id number] Received: 12/29/23 Status: MARGADoni [place] Num: [id number] Spec Type: Impression Subm Dr: Arminda Valverde DO Tissues: PATHPER Procedures: PATHREVIEW Patient: Ila Morejon [id number] (Continued) Specimen: [id number] Received: 12/29/23 (Continued) Pathologist Review (Continued) part of the myelosuppression, including hairy cell leukemia, otherwise is not very apparent in this CBC except mild chronic anemia -If the CBC abnormality continues to persist or progress, further hematology consultation, including flow cytometric assessment of the peripheral blood, may also be suggested as appropriate CPT: 21506 CBC No results available. Specimen: [id number] Received: 12/29/23 Status: RAMONA [place] Num: [id number] Spec Type: Impression Subm Dr: Arminda Valverde DO Tissues: PATHPER Procedures: PATHREVIEW Patient: Ila Morejon [id number] (Continued) Signed (signature on file) Fitz-Berto Dominguez MD 12/29/23 2623 Normal [facility] B2 MICROGLOBULIN Bon Cbeo-6-Kuvoeaihacexv [Mass/Vol] 4.5 ug/mL High <3.1 mg/L [facility] CBC W Auto Differential pane l (Bld)on 06-22-2022 Basophils (Bld) [#/Vol] 0.00 10*3/uL <0.11 k/uL [facility] Basophils/100 WBC (Bld) 0.0 % [facility] Differential cell count method Nom (Bld) Manual [facility] Eosinophils (Bld) [#/Vol] 0.33 10*3/uL <0.46 k/uL [facility] Eosinophils/100 WBC (Bld) 2.0 % [facility] Erythrocyte distribution width (RBC) [Ratio] 12.5 % 11.5 - 15.0 % [facility] Hematocrit (Bld) [Volume fraction] 43.5 % 39.0 - 51.0 % [facility] Hemoglobin (Bld) [Mass/Vol] 15.1 g/dL 13.0 - 17.0 g/dL [facility] Lymphocytes (Bld) [#/Vol] 9.25 10*3/uL High 1.00 - 4.00 k/uL [facility] Lymphocytes/100 WBC (Bld) 56.0 % [facility] MCH (RBC) [Entitic mass] 30.8 pg 26.0 - 34.0 pg [facility] MCHC (RBC) [Mass/Vol] 34.7 g/dL 30.5 - 36.0 g/dL [facility] MCV (RBC) [Entitic vol] 88.8 fL 80.0 - 100.0 fL [facility] Monocytes (Bld) [#/Vol] 1.16 10*3/uL High <0.87 k/uL [facility] Monocytes/100 WBC (Bld) 7.0 % [facility] Neutrophils (Bld) [#/Vol] 5.78 10*3/uL 1.45 - 7.50 k/uL [facility] Neutrophils/100 WBC (Bld) 35.0 % [facility] Nucleated RBC (Bld) [#/Vol] <0.01 k/uL [facility] Nucleated RBC/100 WBC (Bld) [Ratio] 0.0 /100 WBC [facility] Ovalocytes LM Ql (Bld) Few Cl [facility] Platelet mean volume (Bld) [Entitic vol] 10.4 fL 9.0 - 12.7 fL [facility] Platelets (Bld) [#/Vol] 204 10*3/uL 150 - 400 k/uL [facility] Platelets Estimate (Bld) [#/Vol] Adequate [facility] RBC (Bld) [#/Vol] 4.90 10*6/uL 4.20 - 6.00 m/uL [facility] Red Cell Morph Reviewed: see result s of individual morphologies [facility] WBC (Bld) [#/Vol] 16.52 10*3/uL High 3.70 - 11.00 k/uL [facility] Direct antiglobulin test.avelina y specific reagent Ql (RBC)on 06-22-2022 DAGT, Polyspecific AHG Negative Cl [facility] Comprehensive metabolic 2000 panelon 06-21-2022 Albumin [Mass/Vol] 3.7 g/dL Low 3.9 - 4.9 g/dL [facility] ALP [Catalytic activity/Vol] 117 U/L High 38 - 113 U/L [facility] ALT [Catalytic activity/Vol] 9 U/L Low 10 - 54 U/L [facility] Anion gap [Moles/Vol] 3 mmol/L Low 9 - 18 mmol/L [facility] AST [Catalytic activity/Vol] 13 U/L Low 14 - 40 U/L [facility] Bilirubin [Mass/Vol] 0.4 mg/dL 0.2 - 1 .3 mg/dL [facility] Calcium [Mass/Vol] 9.4 mg/dL 8.5 - 10. 2 mg/dL [facility] Chloride [Moles/Vol] 108 mmol/L High 97 - 10 5 mmol/L [facility] CO2 [Moles/Vol] 27 mmol/L 22 - 30 mmol/L [facility] Creatinine [Mass/Vol] 1.19 mg/dL 0.73 - 1.22 mg/dL [facility] Estimated Glomerular Filtration Rate 64 mL/min/1.73m >=60 mL/min/1.7 3m [facility] Glucose [Mass/Vol] 180 mg/dL High 74 - 99 mg/dL [facility] Potassium [Moles/Vol] 5.4 mmol/L High 3.7 - 5.1 mmol/L [facility] Protein [Mass/Vol] 6.2 g/dL Low 6.3 - 8.0 g/dL [facility] Sodium [Moles/Vol] 138 mmol/L 136 - 144 mmol/L [facility] Urea nitrogen [Mass/Vol] 31 mg/dL High 9 - 24 mg/dL [facility] LD LACTATE DEHYDROon 022 LDH [Catalytic activity/Vol] 179 U/L 135 - 225 U/L [facility] URIC ACID BLOODon 06-21-2022 Urate [Mass/Vol] 4.5 mg/dL 4.0 - 8.1 mg/dL [facility] CBC AUTO DIFFon 06-06-2022 BASO # 0.1 103/ul Normal 0.0-0.1 [facility] Comment on above: Performed By: #### C BC #### [facility] [address] [place] [address] [address] Lara Dominguez Basophils/100 WBC (Bld) 0.5 % Normal 0.2-2.0 [facility] Comment on above: Performed By: #### C BC #### [facility] [address] [address] [address] Lara Dominguez EO # 0.3 103/ul Normal 0.0-0.7 [facility] Comment on above: Performed By: #### C BC #### [facility] [address] [address] [address] Lara Dominguez Eosinophils/100 WBC (Bld) 1.6 % Normal 0.9-7.0 [facility] Comment on above: Performed By: #### C BC #### [facility] [address] [address] [address] Lara Dominguez Erythrocyte distribution width (RBC) [Ratio] 12.5 % Normal 11.0-15.0 [facility] Comment on above: Performed By: #### C BC #### [facility] [address] [address] [address] Lara Dominguez Hematocrit (Bld) [Volume fraction] 39.7 % Critically low 42.0-54.0 [facility] Comment on above: Performed By: #### C BC #### [facility] [address] [place] [address] Dr. Lara Dominguez Hemoglobin (Bld) [Mass/Vol] 14.0 g/dL Normal 14.0-18.0 [facility] Comment on above: Performed By: #### C BC #### [facility] [address] [place] [address] Dr. Lara Dominguez IG # 0.07 10e3/ul Critically high 0.00-0.03 [facility] Comment on above: Performed By: #### C BC #### [facility] [address] [place] [address] Dr. Lara Dominguez IG % 0.4 % Normal 0.0-0.5 [facility] Comment on above: Performed By: #### C BC #### [facility] [address] [place] [address] Dr. Lara Dominguez LYMPH # 10.1 103/ul Critically high 1.2-3.8 [facility] Comment on above: Performed By: #### C BC #### [facility] [address] [place] [address] Dr. Lara Dominguez Lymphocytes/100 WBC (Bld) 53.6 % Normal 20.5-60.0 [facility] Comment on above: Performed By: #### C BC #### [facility] [address] [place] [address] Dr. Lara Dominguez MANUAL DIFF REQ NO Normal [facility] Comment on above: Performed By: #### C BC #### [facility] [address] [place] [address] Dr. Lara Dominguez MCH (RBC) [Entitic mass] 31.5 pg Normal 25.9-34.0 [facility] Comment on above: Performed By: #### C BC #### [facility] [address] [place] [address] Dr. Lara Dominguez MCHC (RBC) [Mass/Vol] 35.3 g/dL Critically high 29.9-35.2 [facility] Comment on above: Performed By: #### C BC #### [facility] [address] [place] [address] Dr. Lara Dominguez MCV (RBC) [Entitic vol] 89.2 fL Normal 80.0-94.0 [facility] Comment on above: Performed By: #### C BC #### [facility] [address] [place] [address] Dr. Lara Dominguez MONO # 0.7 103/ul Normal 0.3-0.8 [facility] Comment on above: Performed By: #### C BC #### [facility] [address] [place] [address] Dr. Lara Dominguez Monocytes/100 WBC (Bld) 3.7 % Normal 1.7-12.0 [facility] Comment on above: Performed By: #### C BC #### [facility] [address] [place] [address] Dr. Lara Dominguez NEUT # 7.6 103/ul Critically high 1.4-6.5 [facility] Comment on above: Performed By: #### C BC #### [facility] [address] [place] [address] Dr. Lara Dominguez Neutrophils/100 WBC (Bld) 40.2 % Critically low 43.0-75.0 [facility] Comment on above: Performed By: #### C BC #### [facility] [address] [place] [address] Dr. Lara Dominguez Platelet mean volume (Bld) [Entitic vol] 11.0 fL Normal 9.5-13.5 [facility] Comment on above: Performed By: #### C BC #### [facility] [address] [place] [address] Dr. Lara Dominguez PLT 185 103/ul Normal 150-450 [facility] Comment on above: Performed By: #### C BC #### [facility] [address] [place] [address] Dr. Lara Dominguez RBC 4.45 106/ul Critically low 4.70-6.10 [facility] Comment on above: Performed By: #### C BC #### [facility] [address] [place] [address] Dr. Lara Dominguez WBC 18.8 103/ul Critically high 4.0-11.0 [facility] Comment on above: Performed By: #### C BC #### [facility] [address] [place] [address] Dr. Lara Dominguez GLYCOHEMOGLOBIN A1Con 2021 ADA RECOMMENDATION SEE BELOW Normal [facility] Comment on above: Result Comment: ADA RECOMMENDED LIMIT 4.0 - 6.0 ADA THERAPEUTIC TARGET < 7.0 ACTION SUGGESTED > 7.0 Performed By: #### A 1C #### [facility] [address] [place] [address] Dr. Lara Dominguez Glucose [Mass/Vol] 148 mg/dL Normal [facility] Comment on above: Performed By: #### A 1C #### [facility] [address] [address] [address] Lara Dominguez HbA1c (Bld) [Mass fraction] 6.8 % Critically high 4.5-6.2 [facility] Comment on above: Performed By: #### A 1C #### [facility] [address] [place] [address] Dr. Lara Dominguez LIPID PROFILEon 06-06-2022 CHOL-HDL RATIO NORM SEE BELOW Normal [facility] Comment on above: Result Comment: 3.3 - 4.4 LOW RISK 4.4 - 7.1 AVERAGE RISK 7.1 - 11.0 MODERATE RISK >11.0 HIGH RISK Performed By: #### L IVER, LIPID, BMP #### [facility] [address] [place] [address] Dr. Lara Dominguez Cholesterol [Mass/Vol] 113 mg/dL Normal <=200 [facility] Comment on above: Performed By: #### L IVER, LIPID, BMP #### [facility] [address] [place] [address] Dr. Lara Dominguez Cholesterol in HDL [Mass/Vol] 51 mg/dL Normal 40-60 [facility] Comment on above: Performed By: #### L IVER, LIPID, BMP #### [facility] [address] [place] [address] Dr. Lara Dominguez Cholesterol in LDL [Mass/Vol] 47.6 mg/dL Normal [facility] Comment on above: Performed By: #### L IVER, LIPID, BMP #### [facility] [address] [place] [address] Dr. Lara Dominguez Cholesterol.total/Chol esterol in HDL [Mass ratio] 2.2 {ratio} Normal [facility] Comment on above: Performed By: #### L IVER, LIPID, BMP #### [facility] [address] [address] [address] Lara Dominguez HDL NORMAL > or = 60 mg/dl - LO W CARDIOVASCULAR RISK <40 mg/dl - HIGH CARDIOVASCULAR RISK Normal [facility] Comment on above: Performed By: #### L IVER, LIPID, BMP #### [facility] [address] [address] [address] Lara Dominguez LDL CALC NORMAL SEE BELOW Normal [facility] Comment on above: Result Comment: <100 mg/dl OPTIMAL 100 - 129 mg/dl NEAR OR ABOVE OPTIMAL 130 - 159 mg/dl BORDERLINE HIGH 160 - 189 mg/dl HIGH >190 mg/dl VERY HIGH Performed By: #### L IVER, LIPID, BMP #### [facility] [address] [address] [address] Lara Dominguez Triglyceride [Mass/Vol] 72 mg/dL Normal <=150 [facility] Comment on above: Performed By: #### L IVER, LIPID, BMP #### [facility] [address] [address] [address] Lara Dominguez VLDL CALC 14.4 mg/dL Normal [facility] Comment on above: Performed By: #### L IVER, LIPID, BMP #### [facility] [address] [address] [address] Lara Dominguez LIVER PROFILEon 06-06-2022 Albumin [Mass/Vol] 3.0 g/dL Critically low 3.4-5.0 [facility] Comment on above: Performed By: #### L IVER, LIPID, BMP #### [facility] [address] [address] [address] Lara Dominguez Albumin/Globulin [Mass ratio] 1.0 {ratio} Normal [facility] Comment on above: Performed By: #### L IVER, LIPID, BMP #### [facility] [address] [address] [address] Lara Dominguez ALP [Catalytic activity/Vol] 93 U/L Normal 46-116 [facility] Comment on above: Performed By: #### L IVER, LIPID, BMP #### [facility] [address] [address] [address] Lara Dominguez ALT [Catalytic activity/Vol] 23 U/L Normal 16-63 [facility] Comment on above: Performed By: #### L IVER, LIPID, BMP #### [facility] [address] [address] [address] Lara Dominguez AST [Catalytic activity/Vol] 21 U/L Normal 15-37 [facility] Comment on above: Performed By: #### L IVER, LIPID, BMP #### [facility] [address] [place] [address] Dr. Lara Dominguez BILI, CONJUGATED 0.1 mg/dL Normal 0.0-0.2 [facility] Comment on above: Performed By: #### L IVER, LIPID, BMP #### [facility] [address] [place] [address] Dr. Lara Dominguez Bilirubin [Mass/Vol] 0.5 mg/dL Normal 0.2-1.0 [facility] Comment on above: Performed By: #### L IVER, LIPID, BMP #### [facility] [address] [place] [address] Dr. Lara Dominguez Globulin (S) [Mass/Vol] 3.1 g/dL Normal [facility] Comment on above: Performed By: #### L IVER, LIPID, BMP #### [facility] [address] [place] [address] Dr. Lara Dominguez Protein [Mass/Vol] 6.1 g/dL Critically low 6.4-8.2 [facility] Comment on above: Performed By: #### L IVER, LIPID, BMP #### [facility] [address] [place] [address] Dr. Lara Dominguez MICROALBUMIN, RAND URon 11- mALB 24.1 mg/L Normal <=30.0 [facility] Comment on above: Performed By: #### M ALBR #### [facility] [address] [place], [place] [id number] Dr. Lara Dominguez PERIPHERAL SMEARon Pathologist Cyto stain Nom (Cvx/Vag) [ID] DR. ROSEMARIE DOE Normal [facility] Comment on above: Result Comment: Revi [...] 06-10-22 Performed By: #### P ERSMR #### [facility] [address] [place] [address] Dr. Lara Dominguez PROF CHEM 8 (BAS METB)on Anion gap [Moles/Vol] 9.4 mmol/L Normal [facility] Comment on above: Performed By: #### L IVER, LIPID, BMP #### [facility] [address] [place] [address] Dr. Lara Dominguez Calcium [Mass/Vol] 8.7 mg/dL Normal 8.5-10.1 [facility] Comment on above: Performed By: #### L IVER, LIPID, BMP #### [facility] [address] [place] [address] Dr. Lara Dominguez Chloride [Moles/Vol] 105 mmol/L Normal 98-107 [facility] Comment on above: Performed By: #### L IVER, LIPID, BMP #### [facility] [address] [place] [address] Dr. Lara Dominguez CO2 [Moles/Vol] 28.6 mmol/L Normal 21.0-32.0 [facility] Comment on above: Performed By: #### L IVER, LIPID, BMP #### [facility] [address] [place] [address] Dr. Lara Dominguez Creatinine [Mass/Vol] 1.07 mg/dL Normal 0.70-1.30 [facility] Comment on above: Performed By: #### L IVER, LIPID, BMP #### [facility] [address] [address] [address] Lara Dominguez EGFR-AF IVORIAN >60 Normal >=60 [facility] Comment on above: Performed By: #### L IVER, LIPID, BMP #### [facility] [address] [address] [address] Lara Dominguez EGFR-NON AF IVORIAN >60 Normal >=60 [facility] Comment on above: Performed By: #### L IVER, LIPID, BMP #### [facility] [address] [address] [address] Lara Dominguez Glucose [Mass/Vol] 147 mg/dL Critically high 74-106 [facility] Comment on above: Performed By: #### L IVER, LIPID, BMP #### [facility] [address] [address] [address] Lara Dominguez Potassium [Moles/Vol] 5.0 mmol/L Normal 3.5-5.1 [facility] Comment on above: Performed By: #### L IVER, LIPID, BMP #### [facility] [address] [address] [address] Lara Dominguez Sodium [Moles/Vol] 138 mmol/L Normal 136-145 [facility] Comment on above: Performed By: #### L IVER, LIPID, BMP #### [facility] [address] [address] [address] Lara Dominguez Urea nitrogen [Mass/Vol] 22.0 mg/dL Critically high 7.0-18.0 [facility] Comment on above: Performed By: #### L IVER, LIPID, BMP #### [facility] [address] [address] [address] Lara Dominguez Urea nitrogen/Creatinine [Mass ratio] 20.6 mg/mg Normal [facility] Comment on above: Performed By: #### L IVER, LIPID, BMP #### [facility] [address] [address] [address] Lara Dominguez VITAMIN D 25 OHon 06-06-2022 VIT D 25-OH 10.6 ng/mL Normal [facility] Comment on above: Performed By: #### V DANIEL PSASC #### [facility] [address] [place] [address] Dr. Lara Dominguez VIT D RANGES SEE BELOW Normal [facility] Comment on above: Result Comment: <20 ng/mL Vit D deficient 20 - <30 ng/mL Vit D insufficient 30 - 100 ng/mL Vit D sufficient >100 ng/mL Potential Toxicity Performed By: #### V DANIEL PSASC #### [facility] [address] [address] [address] Lara Dominguez GLYCOHEMOGLOBIN A1Con 2021 ADA RECOMMENDATION SEE BELOW Normal [facility] Comment on above: Result Comment: ADA RECOMMENDED LIMIT 4.0 - 6.0 ADA THERAPEUTIC TARGET < 7.0 ACTION SUGGESTED > 7.0 Performed By: #### A 1C #### [facility] [address] [address] [address] Lara Dominguez Glucose [Mass/Vol] 169 mg/dL Normal [facility] Comment on above: Performed By: #### A 1C #### [facility] [address] [address] [address] Lara Dominguez HbA1c (Bld) [Mass fraction] 7.5 % Critically high 4.5-6.2 [facility] Comment on above: Performed By: #### A 1C #### [facility] [address] [place] [address] Dr. Lara Dominguez Albumin [Mass/volume] in Ser um or Plasmaon 01-01-2021 Albumin [Mass/Vol] 3.5 g/dL 3.2-5.5 [facility] Creatinine and Glomerular fi ltration rate.predicted panel (S/P/Bld)on 01-01-2021 Creatinine [Mass/Vol] 1.02 mg/dL 0.64-1.27 [facility] Estimated glomerular filtrat ion rate (GFR) non- Americanon 01-01-2021 GFR/1.73 sq M.predicted among non-blacks MDRD (S/P/Bld) [Vol rate/Area] > 60 mL/Min [facility] Globulin Calc (S) [Mass/Vol] on 01-01-2021 Globulin (S) [Mass/Vol] 2.0 g/dL [facility] No Panel Informationon 01-01 Estimated GFR () > 60 mL/Min [facility] Comment on above: GFR estimated refere nce range: According to KDOQI guidelines, <60 ml/min/1.73m2 is sufficient to diagnose a patient with chronic kidney disease. Pharmacy Creatinine Clearance (Chem N/A [facility] Protein [Mass/volume] in Ser um or Plasmaon 01-01-2021 Protein [Mass/Vol] 5.5 g/dL 6.1-7.9 [facility] Serum or plasma alanine chambers otransferase measurement without P-5'-P (enzymatic activion 01-01-2021 ALT No additional P-5'-P [Catalytic activity/Vol] 28 U/L 10-60 [facility] Serum or plasma albumin/glob ulin mass ratioon 01-01-2021 Albumin/Globulin [Mass ratio] 1.8 {ratio} [facility] Serum or plasma alkaline clarisa sphatase measurement (enzymatic activity/volume)on 01-01-2021 ALP [Catalytic activity/Vol] 78 U/L 32-92 [facility] Serum or plasma aspartate am inotransferase measurement (enzymatic activity/volume)on 01-01-2021 AST [Catalytic activity/Vol] 21 U/L 10-42 [facility] Serum or plasma calcium elham urement (mass/volume)on 01-01-2021 Calcium [Mass/Vol] 9.6 mg/dL 8.2-10.2 [facility] Serum or plasma chloride daria surement (moles/volume)on 01-01-2021 Chloride [Moles/Vol] 103 mmol/L 95-114 [facility] Serum or plasma glucose elham urement (mass/volume)on 01-01-2021 Glucose [Mass/Vol] 59 mg/dL 70-100 [facility] Comment on above: ADA recommended refe rence rangeRandom Glucose Reference Range is dependent on time and content of last meal. Glucose of more than 200 mg/dL in a nonstressed, ambulatory subject supports the diagnosis of Diabetes Mellitus. Serum or plasma potassium me asurement (moles/volume)on 01-01-2021 Potassium [Moles/Vol] 4.8 mmol/L 3.5-5.1 [facility] Serum or plasma sodium measu rement (moles/volume)on 01-01-2021 Sodium [Moles/Vol] 143 mmol/L 136-146 [facility] Serum or plasma total biliru bin measurement (mass/volume)on 01-01-2021 Bilirubin [Mass/Vol] 0.9 mg/dL 0.3-1.2 [facility] Serum or plasma total carbon dioxide measurement (moles/volume)on 01-01-2021 CO2 [Moles/Vol] 28.5 mmol/L 22.0-30.0 [facility] Serum or plasma urea nitroge n measurement (mass/volume)on 01-01-2021 Urea nitrogen [Mass/Vol] 14 mg/dL 9- [facility] Vital Signs Date Time Vital Sign Value Performing Clinician Faci lity 04-07-2025 15:50-0400 Body height 172.72 cm Cruzito Mcgrath MD Work Phone: [facility] 04-07-2025 15:50-0400 Body mass index (BMI) [Ratio] 26.3 kg/m2 Cruzito Mcgrath MD Work Phone: [facility] 04-07-2025 15:50-0400 Body temperature 97.1 [degF] Cruzito Mcgrath MD Work Phone: [facility] 04-07-2025 15:50-0400 Body weight 78.47 kg Cruzito Mcgrath MD Work Phone: [facility] 04-07-2025 15:50-0400 Diastolic blood pressure 40 mm[Hg] Cruzito Mcgrath MD Work Phone: [facility] 04-07-2025 15:50-0400 Heart rate 69 /min Cruzito Mcgrath MD Work Phone: [facility] 04-07-2025 15:50-0400 Respiratory rate 18 /min Cruzito Mcgrath MD Work Phone: [facility] 04-07-2025 15:50-0400 Systolic blood pressure 132 mm[Hg] Cruzito Mcgrath MD Work Phone: [facility] 03-10-2025 11:35-0400 Body height 172.72 cm Cruzito Mcgrath MD Work Phone: [facility] 03-10-2025 11:35-0400 Body mass index (BMI) [Ratio] 26.3 kg/m2 Cruzito Mcgrath MD Work Phone: [facility] 03-10-2025 11:35-0400 Body weight 78.47 kg Cruzito Mcgrath MD Work Phone: [facility] 03-10-2025 11:35-0400 Diastolic blood pressure 58 mm[Hg] Cruzito Mcgrath MD Work Phone: [facility] 03-10-2025 11:35-0400 Heart rate 58 /min Cruzito Mcgrath MD Work Phone: [facility] 03-10-2025 11:35-0400 SaO2% (BldA) [Mass fraction] 97 % Cruzito Mcgrath MD Work Phone: [facility] 03-10-2025 11:35-0400 Systolic blood pressure 118 mm[Hg] Cruzito Mcgrath MD Work Phone: [facility] 02-08-2025 13:45-0400 Diastolic blood pressure 50 mm[Hg] Cruzito Mcgrath MD Work Phone: [facility] 02-08-2025 13:45-0400 Systolic blood pressure 117 mm[Hg] Cruzito Mcgrath MD Work Phone: [facility] 02-08-2025 13:37-0400 Body height 172.72 cm Cruzito Mcgrath MD Work Phone: [facility] 02-08-2025 13:37-0400 Body mass index (BMI) [Ratio] 26.7 kg/m2 Cruzito Mcgrath MD Work Phone: [facility] 02-08-2025 13:37-0400 Body weight 79.83 kg Cruzito Mcgrath MD Work Phone: [facility] 02-08-2025 13:37-0400 Heart rate 64 /min Cruzito Mcgrath MD Work Phone: [facility] 02-08-2025 13:37-0400 Respiratory rate 16 /min Cruzito Mcgrath MD Work Phone: [facility] 02-08-2025 13:37-0400 SaO2% (BldA) [Mass fraction] 96 % Cruzito Mcgrath MD Work Phone: [facility] 11-16-2024 10:16-0400 Body height 172.7 cm Laura Sinha EDUCATION PROGRAM COORDINATOR Work Phone: [facility] 11-16-2024 10:16-0400 Body mass index (BMI) [Ratio] 26.15 kg/m2 Laura Sinha EDUCATION PROGRAM COORDINATOR Work Phone: [facility] 11-16-2024 10:16-0400 Body weight 78.02 kg Laura Sinha EDUCATION PROGRAM COORDINATOR Work Phone: [facility] 11-16-2024 10:16-0400 Diastolic blood pressure 72 mm[Hg] Laura Sinha EDUCATION PROGRAM COORDINATOR Work Phone: [facility] 11-16-2024 10:16-0400 Heart rate 65 /min Laura Sinha EDUCATION PROGRAM COORDINATOR Work Phone: [facility] 11-16-2024 10:16-0400 SaO2% (BldA) [Mass fraction] 91 % Laura Sinha EDUCATION PROGRAM COORDINATOR Work Phone: [facility] 11-16-2024 10:16-0400 Systolic blood pressure 126 mm[Hg] Laura Sinha EDUCATION PROGRAM COORDINATOR Work Phone: [facility] 04-23-2025 10:44-0400 Body height 172.7 cm Cruzito Mcgrath MD Work Phone: [facility] 11-10-2024 10:44-0400 Body mass index (BMI) [Ratio] 25.85 kg/m2 Cruzito Mcgrath MD Work Phone: [facility] 11-10-2024 10:44-0400 Body temperature 97.3 [degF] Cruzito Mcgrath MD Work Phone: [facility] 11-10-2024 10:44-0400 Body weight 77.11 kg Cruzito Mcgrath MD Work Phone: [facility] 11-10-2024 10:44-0400 Diastolic blood pressure 56 mm[Hg] Cruzito Mcgrath MD Work Phone: [facility] 11-10-2024 10:44-0400 Heart rate 74 /min Cruzito Mcgrath MD Work Phone: [facility] 11-10-2024 10:44-0400 Respiratory rate 18 /min Cruzito Mcgrath MD Work Phone: [facility] 11-10-2024 10:44-0400 SaO2% (BldA) [Mass fraction] 97 % Cruzito Mcgrath MD Work Phone: [facility] 11-10-2024 10:44-0400 Systolic blood pressure 130 mm[Hg] Cruzito Mcgrath MD Work Phone: [facility] 11-04-2024 13:40-0400 Body temperature 97.9 [degF] Chair Sinclair Work Phone: [facility] 11-04-2024 13:40-0400 Diastolic blood pressure 68 mm[Hg] Chair Sinclair Work Phone: [facility] 11-04-2024 13:40-0400 Heart rate 64 /min Chair Kelley Work Phone: [facility] 11-04-2024 13:40-0400 Respiratory rate 16 /min Chair Sinclair Work Phone: [place] [id number] 13:40-0400 SaO2% (BldA) [Mass fraction] 97 % Chair Kelley Work Phone: [facility] 11-04-2024 13:40-0400 Systolic blood pressure 152 mm[Hg] Chair Kelley Work Phone: [facility] 10-25-2024 10:36-0400 Body mass index (BMI) [Ratio] 26.76 kg/m2 Raegan Chandler INSPECTOR [employer] AND R[employer]OR W[employer]ER Work Phone: [facility] 10-25-2024 10:36-0400 Body temperature 97.3 [degF] Raegan Chandler INSPECTOR PLUG SEAM.ARMATURE AND ROTOR WINDER Work Phone: [facility] 10-25-2024 10:36-0400 Body weight 78.7 kg Raegan Chandler INSPECTOR PLUG SEAM.ARMATURE AND ROTOR WINDER Work Phone: [facility] 10-25-2024 10:36-0400 Diastolic blood pressure 65 mm[Hg] Raegan Chandler INSPECTOR PLUG SEAM.ARMATURE AND ROTOR WINDER Work Phone: [facility] 10-25-2024 10:36-0400 Heart rate 78 /min Raegan Chandler INSPECTOR PLUG SEAM.ARMATURE AND ROTOR WINDER Work Phone: [facility] 10-25-2024 10:36-0400 Respiratory rate 16 /min Raegan Chandler INSPECTOR PLUG SEAM.ARMATURE AND ROTOR WINDER Work Phone: [facility] 10-25-2024 10:36-0400 SaO2% (BldA) [Mass fraction] 94 % Raegan Chandler INSPECTOR PLUG SEAM.ARMATURE AND ROTOR WINDER Work Phone: [facility] 10-25-2024 10:36-0400 Systolic blood pressure 126 mm[Hg] Raegan Chandler INSPECTOR PLUG SEAM.ARMATURE AND ROTOR WINDER Work Phone: [facility] 09-08-2024 14:20-0500 Body mass index (BMI) [Ratio] 26.21 kg/m2 Zahraa Cristobal DO Work Phone: [facility] 09-08-2024 14:20-0500 Body weight 78.2 kg Christopher Susu DO Work Phone: [facility] 09-08-2024 14:20-0500 Diastolic blood pressure 58 mm[Hg] Christopher Susu DO Work Phone: [facility] Comment on above: orthostatic vitals- laying 124/68, sitti ng- 116/54, standing- 114/52 09-08-2024 14:20-0500 Heart rate 60 /min [facility] Work Phone: [facility] 09-08-2024 14:20-0500 SaO2% (BldA) [Mass fraction] 94 % [facility] Work Phone: [facility] 09-08-2024 14:20-0500 Systolic blood pressure 92 mm[Hg] [facility] Work Phone: [facility] Comment on above: orthostatic vitals- laying 124/68, sitti ng- 116/54, standing- 114/52 09-06-2024 20:19-0500 Body height 172.7 cm Pmh [address] [facility] 09-06-2024 20:19-0500 Body mass index (BMI) [Ratio] 24.33 kg/m2 Pm [address] [facility] 09-06-2024 20:19-0500 Body weight 72.58 kg Pm [address] [facility] 08-16-2024 17:35-0500 Diastolic blood pressure 68 mm[Hg] Cruzito Mcgrath MD Work Phone: [facility] 08-16-2024 17:35-0500 Heart rate 60 /min Cruzito Mcgrath MD Work Phone: [facility] 08-16-2024 17:35-0500 Respiratory rate 20 /min Cruzito Mcgrath MD Work Phone: [facility] 08-16-2024 17:35-0500 SaO2% (BldA) [Mass fraction] 95 % Cruzito Mcgrath MD Work Phone: [facility] 08-16-2024 17:35-0500 Systolic blood pressure 128 mm[Hg] Cruzito Mcgrath MD Work Phone: [facility] 08-16-2024 13:56-0500 Inhaled oxygen flow rate 15 L/min Cruzito Mcgrath MD Work Phone: [facility] 08-16-2024 12:12-0500 Body height 172.72 cm Cruzito Mcgrath MD Work Phone: [facility] 08-16-2024 12:12-0500 Body weight 72.57 kg Cruzito Mcgrath MD Work Phone: [facility] 08-12-2024 09:46-0500 Body height 172.72 cm Cruzito Mcgrath MD Work Phone: [facility] 08-12-2024 09:46-0500 Body mass index (BMI) [Ratio] 25 kg/m2 Cruzito Mcgrath MD Work Phone: [facility] 08-12-2024 09:46-0500 Body temperature 98.2 [degF] Cruzito Mcgrath MD Work Phone: [facility] 08-12-2024 09:46-0500 Body weight 74.84 kg Cruzito Mcgrath MD Work Phone: [facility] 08-12-2024 09:46-0500 Diastolic blood pressure 48 mm[Hg] Cruzito Mcgrath MD Work Phone: [facility] 08-12-2024 09:46-0500 Heart rate 59 /min Cruzito Mcgrath MD Work Phone: [facility] 08-12-2024 09:46-0500 SaO2% (BldA) [Mass fraction] 97 % Cruzito Mcgrath MD Work Phone: [facility] 08-12-2024 09:46-0500 Systolic blood pressure 138 mm[Hg] Cruzito Mcgrath MD Work Phone: [facility] 07-28-2024 10:54-0500 Body temperature 98.4 [degF] Chair Kelley Work Phone: [facility] 07-28-2024 10:54-0500 Diastolic blood pressure 67 mm[Hg] Chair Sinclair Work Phone: [facility] 07-28-2024 10:54-0500 Heart rate 59 /min Chair Sinclair Work Phone: [facility] 07-28-2024 10:54-0500 Respiratory rate 18 /min Chair Sinclair Work Phone: [facility] 07-28-2024 10:54-0500 SaO2% (BldA) [Mass fraction] 95 % Chair Kelley Work Phone: [facility] 07-28-2024 10:54-0500 Systolic blood pressure 138 mm[Hg] Chair Sinclair Work Phone: [facility] 07-16-2024 14:07-0500 Body mass index (BMI) [Ratio] 25.3 kg/m2 Raegan Chandler INSPECTOR PLUG SEAM.ARMATURE AND [employer]OR W[employer]ER Work Phone: [facility] 07-16-2024 14:07-0500 Body temperature 97 [degF] Raegan Chandler INSPECTOR PLUG SEAM.ARMATURE AND R[employer]OR WINDER Work Phone: [facility] 07-16-2024 14:07-0500 Body weight 74.4 kg Raegan Chandler INSPECTOR PLUG SEAM.ARMATURE AND R[employer]OR WINDER Work Phone: [facility] 07-16-2024 14:07-0500 Diastolic blood pressure 54 mm[Hg] Raegan Chandler INSPECTOR PLUG SEAM.ARMATURE AND R[employer]OR W[employer]ER Work Phone: [facility] 07-16-2024 14:07-0500 Heart rate 67 /min Raegan Chandler INSPECTOR PLUG SEAM.ARMATURE AND R[employer]OR W[employer]ER Work Phone: [facility] 07-16-2024 14:07-0500 Respiratory rate 18 /min Raegan Chandler INSPECTOR PLUG SEAM.ARMATURE AND [employer]OR W[employer]ER Work Phone: [facility] 07-16-2024 14:07-0500 SaO2% (BldA) [Mass fraction] 96 % Raegan Arteaga INSPECTOR PLUG SEAM.ARMATURE AND [employer]OR W[employer]ER Work Phone: [facility] 07-16-2024 14:07-0500 Systolic blood pressure 138 mm[Hg] Raegan Arteaga APRN.ARMATURE AND R[employer]OR W[employer]ER Work Phone: [facility] 07-09-2024 13:41-0500 Body height 171.5 cm Shaggy Nabil PA-C Work Phone: [facility] 07-09-2024 13:41-0500 Body mass index (BMI) [Ratio] 24.79 kg/m2 Shaggy Nabil PA-C Work Phone: [facility] 07-09-2024 13:41-0500 Body temperature 98.01 [degF] Shaggy Nabil PA-C Work Phone: [facility] 07-09-2024 13:41-0500 Body weight 72.9 kg Shaggy Nabil PA-C Work Phone: [facility] 07-09-2024 13:41-0500 Diastolic blood pressure 45 mm[Hg] Shaggy Nabil PA-C Work Phone: [facility] 07-09-2024 13:41-0500 Heart rate 60 /min Shaggy Nabil PA-C Work Phone: [facility] 07-09-2024 13:41-0500 Respiratory rate 16 /min Shaggy Nabil PA-C Work Phone: [facility] 07-09-2024 13:41-0500 SaO2% (BldA) [Mass fraction] 95 % Shaggy Nabil PA-C Work Phone: [facility] 07-09-2024 13:41-0500 Systolic blood pressure 134 mm[Hg] Shaggy Nabil PA-C Work Phone: [facility] 06-24-2024 09:47-0500 Body height 172.7 cm Cruzito Mcgrath MD Work Phone: [facility] 06-24-2024 09:47-0500 Body mass index (BMI) [Ratio] 24.78 kg/m2 Cruzito Mcgrath MD Work Phone: [facility] 06-24-2024 09:47-0500 Body temperature 97.5 [degF] Cruzito Mcgrath MD Work Phone: [facility] 06-24-2024 09:47-0500 Body weight 73.94 kg Cruzito Mcgrath MD Work Phone: [facility] 06-24-2024 09:47-0500 Diastolic blood pressure 44 mm[Hg] Cruzito Mcgrath MD Work Phone: [facility] 06-24-2024 09:47-0500 Heart rate 52 /min Cruzito Mcgrath MD Work Phone: [facility] 06-24-2024 09:47-0500 Respiratory rate 18 /min Cruzito Mcgrath MD Work Phone: [facility] 06-24-2024 09:47-0500 SaO2% (BldA) [Mass fraction] 97 % Cruzito Mcgrath MD Work Phone: [facility] 06-24-2024 09:47-0500 Systolic blood pressure 122 mm[Hg] Cruzito Mcgrath MD Work Phone: [facility] 05-20-2024 08:47-0400 Body height 172.72 cm Cruzito Mcgrath MD Work Phone: [facility] 05-20-2024 08:47-0400 Body mass index (BMI) [Ratio] 25 kg/m2 Cruzito Mcgrath MD Work Phone: [facility] 05-20-2024 08:47-0400 Body weight 74.55 kg Cruzito Mcgrath MD Work Phone: [facility] 05-12-2024 09:31-0400 Body height 172.7 cm Cruzito Mcgrath MD Work Phone: [facility] 05-12-2024 09:31-0400 Body mass index (BMI) [Ratio] 24.94 kg/m2 Cruzito Mcgrath MD Work Phone: [facility] 05-12-2024 09:31-0400 Body temperature 97.81 [degF] Cruzito Mcgrath MD Work Phone: [facility] 05-12-2024 09:31-0400 Body weight 74.39 kg Cruzito Mcgrath MD Work Phone: [facility] 05-12-2024 09:31-0400 Diastolic blood pressure 36 mm[Hg] Cruzito Mcgrath MD Work Phone: [facility] 05-12-2024 09:31-0400 Heart rate 41 /min Cruzito Mcgrath MD Work Phone: [facility] 05-12-2024 09:31-0400 Respiratory rate 18 /min Cruzito Mcgrath MD Work Phone: [facility] 05-12-2024 09:31-0400 SaO2% (BldA) [Mass fraction] 93 % Cruzito Mcgrath MD Work Phone: [facility] 05-12-2024 09:31-0400 Systolic blood pressure 120 mm[Hg] Cruzito Mcgrath MD Work Phone: [facility] 04-14-2024 10:13-0400 Body height 172.72 cm MD Cruzito Mcgrath Work Phone: [facility] 04-14-2024 10:13-0400 Body mass index (BMI) [Ratio] 24.9 kg/m2 MD Cruzito Mcgrath Work Phone: [facility] 04-14-2024 10:13-0400 Body temperature 97.9 [degF] MD Cruzito Mcgrath Work Phone: [facility] 04-14-2024 10:13-0400 Body weight 74.38 kg MD Cruzito Mcgrath Work Phone: [facility] 04-14-2024 10:13-0400 Diastolic blood pressure 50 mm[Hg] MD Cruzito Mcgrath Work Phone: [facility] 04-14-2024 10:13-0400 Heart rate 39 /min MD Cruzito Mcgrath Work Phone: [facility] 04-14-2024 10:13-0400 SaO2% (BldA) [Mass fraction] 96 % MD Cruzito Mcgrath Work Phone: [facility] 04-14-2024 10:13-0400 Systolic blood pressure 160 mm[Hg] MD Cruzito Mcgrath Work Phone: [facility] 04-13-2024 09:32-0400 Body height 172.72 cm MD Cruzito Mcgrath Work Phone: [facility] 04-13-2024 09:32-0400 Body mass index (BMI) [Ratio] 25 kg/m2 MD Cruzito Mcgrath Work Phone: [facility] 04-13-2024 09:32-0400 Body weight 74.55 kg MD Cruzito Mcgrath Work Phone: [facility] 03-18-2024 09:44-0400 Body height 172.72 cm MD Cruzito Mcgrath Work Phone: [facility] 03-18-2024 09:44-0400 Body mass index (BMI) [Ratio] 24.5 kg/m2 MD Cruzito Mcgrath Work Phone: [facility] 03-18-2024 09:44-0400 Body temperature 97.8 [degF] MD Cruzito Mcgrath Work Phone: [facility] 03-18-2024 09:44-0400 Body weight 73.02 kg MD Cruzito Mcgrath Work Phone: [facility] 03-18-2024 09:44-0400 Diastolic blood pressure 84 mm[Hg] MD Cruzito Mcgrath Work Phone: [facility] 03-18-2024 09:44-0400 Heart rate 68 /min MD Cruzito Mcgrath Work Phone: [facility] 03-18-2024 09:44-0400 Respiratory rate 16 /min MD Cruzito Mcgrath Work Phone: [facility] 03-18-2024 09:44-0400 SaO2% (BldA) [Mass fraction] 98 % MD Cruzito Mcgrath Work Phone: [facility] 03-18-2024 09:44-0400 Systolic blood pressure 126 mm[Hg] MD Cruzito Mcgrath Work Phone: [facility] 03-09-2024 08:56-0400 Body height 172.7 cm Jeromy Mejia MD Work Phone: [facility] 03-09-2024 08:56-0400 Body mass index (BMI) [Ratio] 25.09 kg/m2 Jeromy Mejia MD Work Phone: [facility] 03-09-2024 08:56-0400 Body weight 74.84 kg Jeromy Mejia MD Work Phone: [facility] 03-09-2024 08:56-0400 Diastolic blood pressure 60 mm[Hg] Jeromy Mejia MD Work Phone: [facility] 03-09-2024 08:56-0400 Systolic blood pressure 173 mm[Hg] Jeromy Mejia MD Work Phone: [facility] 01-16-2024 14:09-0400 Body mass index (BMI) [Ratio] 24.89 kg/m2 Dipti Beckham MD Work Phone: [facility] 01-16-2024 14:09-0400 Body temperature 97.2 [degF] Dipti Beckham MD Work Phone: [facility] 01-16-2024 14:09-0400 Body weight 73.21 kg Dipti Beckham MD Work Phone: [facility] 01-16-2024 14:09-0400 Diastolic blood pressure 35 mm[Hg] Dipti Beckham MD Work Phone: [facility] 01-16-2024 14:09-0400 Heart rate 45 /min Dipti Beckham MD Work Phone: [facility] 01-16-2024 14:09-0400 Respiratory rate 18 /min Dipti Beckham MD Work Phone: [facility] 01-16-2024 14:09-0400 SaO2% (BldA) [Mass fraction] 98 % Dipti Beckham MD Work Phone: [facility] 01-16-2024 14:09-0400 Systolic blood pressure 132 mm[Hg] Dipti Beckham MD Work Phone: [facility] 09-03-2023 12:11-0500 Body height 172.7 cm January Dechristophe r INSPECTOR [employer]URE [employer]ER Work Phone: [facility] [employer] 09-03-2023 12:11-0500 Body mass index (BMI) [Ratio] 26 kg/m2 January Dechristopher INSPECTOR PL[employer]-ARMATURE AND [employer]ER [facility] Phone[facility] 09-03-2023 12:11-0500 Body weight 77.56 kg January Dechristophe r INSPECTOR [employer]URE AND [employer]ER Work Phone: [facility] 09-03-2023 12:11-0500 Diastolic blood pressure 58 mm[Hg] January Dechristopher INSPECTOR PL[employer]URE AND [employer] W[employer]ER Work Phone: [employer] 09-03-2023 12:11-0500 Heart rate 42 /min January Dechristophe r INSPECTOR PL[employer]URE AND [employer]ER Work Phone: [facility] 09-03-2023 12:11-0500 SaO2% (BldA) [Mass fraction] 98 % January Dechristopher INSPECTOR PL[employer]URE AND [employer] W[employer]ER Work Phone: [facility] 09-03-2023 12:11-0500 Systolic blood pressure 130 mm[Hg] January Sanders INSPECTOR PLUG SE[employer]URE AND [employer]ER Work Phone: [facility] 08-27-2023 14:07-0500 Body height 172.7 cm Rickie Hirsch MD Work Phone: [facility] 08-27-2023 14:07-0500 Body mass index (BMI) [Ratio] 25.7 kg/m2 Rickie Hirsch MD Work Phone: [facility] 08-27-2023 14:07-0500 Body weight 76.66 kg Rickie Hirsch MD Work Phone: [facility] 08-27-2023 14:07-0500 Diastolic blood pressure 50 mm[Hg] Rickie Hirsch MD Work Phone: [facility] 08-27-2023 14:07-0500 Heart rate 47 /min Rickie Hirsch MD Work Phone: [facility] 08-27-2023 14:07-0500 SaO2% (BldA) [Mass fraction] 98 % Rickie Hirsch MD Work Phone: [facility] 08-27-2023 14:07-0500 Systolic blood pressure 132 mm[Hg] Rickie Hirsch MD Work Phone: [facility] 12-27-2022 13:34-0400 Body height 171.5 cm Dipti Beckham MD Work Phone: [facility] 12-27-2022 13:34-0400 Body temperature 97.59 [degF] Dipti Beckham MD Work Phone: [facility] 12-27-2022 13:34-0400 Body weight 77.2 kg Dipti Beckham MD Work Phone: [facility] 12-27-2022 13:34-0400 Diastolic blood pressure 56 mm[Hg] Dipti Beckham MD Work Phone: [facility] 12-27-2022 13:34-0400 Heart rate 45 /min Dipti Beckham MD Work Phone: [facility] 12-27-2022 13:34-0400 Respiratory rate 16 /min Dipti Beckham MD Work Phone: [facility] 12-27-2022 13:34-0400 SaO2% (BldA) [Mass fraction] 98 % Dipti Beckham MD Work Phone: [facility] 12-27-2022 13:34-0400 Systolic blood pressure 146 mm[Hg] Dipti Beckham MD Work Phone: [facility] 06-21-2022 14:44-0500 Body height 172.7 cm Dipti Beckham MD Work Phone: [facility] 06-21-2022 14:44-0500 Body temperature 97.59 [degF] Dipti Beckham MD Work Phone: [facility] 06-21-2022 14:44-0500 Body weight 77.02 kg Dipti Beckham MD Work Phone: [facility] 06-21-2022 14:44-0500 Diastolic blood pressure 48 mm[Hg] Dipti Beckham MD Work Phone: [facility] 06-21-2022 14:44-0500 Heart rate 40 /min Dipti Beckham MD Work Phone: [facility] 06-21-2022 14:44-0500 Respiratory rate 16 /min Dipti Beckham MD Work Phone: [facility] 06-21-2022 14:44-0500 SaO2% (BldA) [Mass fraction] 99 % Dipti Beckham MD Work Phone: [facility] 06-21-2022 14:44-0500 Systolic blood pressure 179 mm[Hg] Dipti Beckham MD Work Phone: [facility] Encounters Encounter Date Encounter Type Care Provider Facility Start: 04-07-2025 End: 04-07-2025 ambulatory Cruzito Mcgrath MD Work Phone: [facility] Work Phone: Start: 04-07-2025 End: 04-07-2025 Patient encounter procedure Cruzito Mcgrath MD -[facility] [place] Work Phone: Start: 03-30-2025 Non-patient / Non-visit Laura Sinha APRN-STERILE TECHNICIAN-C -[facility] Work Phone: Start: 03-18-2025 End: 03-20-2025 Refill Cruzito Mcgrath MD Work Phone: [facility] Comment on above: Benign essential HTN Start: [facility] Start: 03-11-2025 End: 03-11-2025 Orders Only Cruzito Mcgrath MD Work Phone: [facility] Comment on above: Chronic heart failur e with preserved ejection fraction (HFpEF) ([facility]) Start: 03-10-2025 End: 03-10-2025 ambulatory Cruzito Mcgrath MD Work Phone: [facility] Work Phone: Start: 03-10-2025 End: 03-10-2025 Patient encounter procedure Laura Sinha APRN-STERILE TECHNICIAN-C -[facility] Neurology [place] Work Phone: Start: 02-08-2025 End: 02-08-2025 ambulatory Cruzito Mcgrath MD Work Phone: [facility] Work Phone: Start: 02-08-2025 End: 02-08-2025 Patient encounter procedure Vivi Sandoval MD -[facility] Nephrology [place] Work Phone: Start: 02-08-2025 End: 02-08-2025 ambulatory [facility] Start: 01-28-2025 End: 01-28-2025 Clinisync Result Encounter Generic External Data Provider [facility] External Department Unsolicited Start: 01-28-2025 End: 01-28-2025 Clinisync Result Encounter Generic External Data Provider [facility] External Department Unsolicited Start: 01-06-2025 End: 01-06-2025 Bamboo flowschinedu Wong MD Work Phone: [facility] Start: 01-06-2025 End: 01-06-2025 Bamesteban Wong MD Work Phone: [facility] Start: 01-06-2025 End: 01-06-2025 Office outpatient visit 15 minutes Brad Wong MD Work Phone: [facility] Comment on above: Seborrheic keratosis (Primary Dx); Actinic keratosis; Capillary angioma; Lentigines; Solar purpura Start: 01-06-2025 End: 01-06-2025 ambulatory BRAD WONG Not Available Start: 01-05-2025 End: 01-05-2025 Shane Mcgrath MD Work Phone: [facility] Comment on above: Essential tremor Start: 01-04-2025 End: 01-04-2025 ambulatory [facility] Start: 12-24-2024 ambulatory [facility] Start: 11-23-2024 ambulatory [facility] Start: 11-16-2024 End: 11-16-2024 Bamboo flowsheet Laura Sinha EDUCATION PROGRAM COORDINATOR Work Phone: [facility] Start: 11-16-2024 End: 11-16-2024 Bamboo flowsheet Laura Sinha EDUCATION PROGRAM COORDINATOR Work Phone: [facility] Start: 11-16-2024 End: 11-16-2024 Office outpatient visit 25 minutes Laura Sinha EDUCATION PROGRAM COORDINATOR Work Phone: [facility] Comment on above: Gait instability (Pr imary Dx); Polyneuropathy; Degeneration of intervertebral disc of lumbar region with discogenic back pain; Tremor; Paroxysmal atrial fibrillation (CMS/HCC); AICD (automatic cardioverter/defibrillator) present Start: 11-16-2024 End: 11-16-2024 ambulatory LAURA OCTAVIA Not Available Start: 11-12-2024 End: 11-12-2024 Orders Only Jeimy Teixeira CMA PHN [facility] Comment on above: CKD stage 3b, GFR 30 -44 ml/min (CMS-HCC) (Primary Dx) Start: 11-10-2024 End: 11-10-2024 Clinisync Result Encounter Cruzito Mcgrath MD Work Phone: [facility] External Department Unsolicited Start: 11-10-2024 End: 11-10-2024 Clinisync Result Encounter Cruzito Mcgrath MD Work Phone: [facility] External Department Unsolicited Start: 11-10-2024 End: 11-10-2024 Patient encounter procedure Cruzito Mcgrath MD Work Phone: [facility] Work Phone: Start: 11-10-2024 End: 11-10-2024 Postop follow up visit related to original px Cruzito Mcgrath MD Work Phone: [facility] Comment on above: Medicare annual well ness visit, subsequent (Primary Dx); Type 2 diabetes mellitus with hyperglycemia, with long-term current use of insulin ([facility]/HCC); Chronic heart failure with preserved ejection fraction (HFpEF) (CMS/HCC); CLL (chronic lymphocytic leukemia) (CMS/HCC); CKD stage 3b, GFR 30-44 ml/min (CMS/HCC); PAD (peripheral artery disease) (CMS/HCC); Paroxysmal atrial fibrillation (CMS/HCC); Type 2 diabetes mellitus 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 (CMS/HCC); 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CMS/HCC); Immunodeficiency due to conditions classified elsewhere ([facility]/HCC) Start: 11-10-2024 End: 11-10-2024 ambulatory CRUZITO MCGRATH Not Available Start: 11-04-2024 End: 11-05-2024 ambulatory Chair Kenneth Clemons Work Phone: Hematology/Oncology Comment on above: Other iron deficienc y anemia (Primary Dx) Start: 10-27-2024 End: 10-27-2024 Telephone encounter Patricia Alston LPN, PHN [facility] Start: 10-25-2024 End: 10-25-2024 Clinisync Result Encounter Generic External Data Provider [facility] External Department Unsolicited Start: 10-25-2024 End: 10-25-2024 Clinisync Result Encounter Generic External Data Provider [facility] External Department Unsolicited Start: 10-25-2024 End: 10-27-2024 Telephone encounter Marleen Drake RN Hematology/Oncology Comment on above: iron lab results Start: 10-25-2024 End: 10-25-2024 Office outpatient visit 25 minutes Raegan Arteaga APRN.CNP Work Phone: Hematology/Oncology Comment on above: CLL (chronic lymphoc ytic leukemia) (HCC) (Primary Dx); Other iron deficiency anemia; Malaise and fatigue Start: 10-25-2024 End: 10-25-2024 ambulatory CRUZITO MCGRATH Facility:[facility] Start: 10-21-2024 End: 10-22-2024 Telephone encounter Raegan Arteaga APRN.VIDHYA Work Phone: Hematology/Oncology Comment on above: Lab Orders Start: 09-16-2024 End: 09-16-2024 Bamboo flowsheet Zahraa Cristobal DO Work Phone: [facility] AGU[facility] Start: 09-16-2024 End: 09-16-2024 Bamboo flowsheet Zahraa Cristobal DO Work Phone: [facility] THOMPSONEVUE Start: 09-16-2024 End: 09-16-2024 Patient encounter procedure Zahraa Cristobal DO Work Phone: [facility] Comment on above: Gait instability Start: 09-16-2024 End: 09-16-2024 ambulatory ZAHRAA CRISTOBAL Not Available Start: 09-08-2024 End: 09-08-2024 Office outpatient new 45 minutes Zahraa Cristobal DO Work Phone: RAM[facility]N CLEMONS Comment on above: Gait instability (Pr imary Dx); Tremor; Paroxysmal atrial fibrillation (CMS/HCC); AICD (automatic cardioverter/defibrillator) present Start: 09-08-2024 End: 09-08-2024 Bamboo flowsheet Zahraa Cristobal DO Work Phone: [facility] Start: 09-08-2024 End: 09-08-2024 Bamboo flowsheet Chrisphilippe Susu DO Work Phone: [facility] Start: 09-08-2024 End: 09-08-2024 ambulatory ZAHRAA CRISTOBAL Not Available Start: 09-06-2024 End: 09-06-2024 ambulatory JAMES WILKERSON [facility] Comment on above: Obstructive sleep ap fina Start: 08-30-2024 End: 08-30-2024 Telephone encounter [facility] Comment on above: Sleep Lab (BiPAP) Start: 08-19-2024 End: 08-19-2024 Bamboo flowschinedu Wong MD Work Phone: [facility] Start: 08-19-2024 End: 08-19-2024 Bamboo flowschinedu Wong MD Work Phone: [facility] Start: 08-19-2024 End: 08-19-2024 Office outpatient visit 10 minutes Brad Wong MD Work Phone: [facility] Comment on above: Prurigo nodularis (P rimary Dx) Start: 08-19-2024 End: 08-19-2024 ambulatory BRAD WONG Not Available Start: 08-17-2024 End: 08-17-2024 ambulatory [facility] Start: 08-16-2024 Non-patient / Non-visit Cruzito hernandez MD Work Phone: [facility] Work Phone: Start: 08-16-2024 End: 08-16-2024 Admission to same day surgery center Cruzito Mcgrath MD Work Phone: [facility]Interventional Radiology Work Phone: Start: 08-16-2024 End: 08-16-2024 Social Work Odalis Menchaca [facility] Hematology/Oncology Start: 08-12-2024 End: 08-12-2024 Patient encounter procedure Cruzito Mcgrath MD Work Phone: [facility] Work Phone: Start: 08-03-2024 End: 08-03-2024 Orders Only Cruzito Mcgrath MD Work Phone: [facility] Comment on above: Tremor (Primary Dx) Start: 07-28-2024 End: 07-28-2024 ambulatory Chair 12 Kelley Work Phone: Hematology/Oncology Comment on above: Other iron deficienc y anemia (Primary Dx) Start: 07-23-2024 End: 07-23-2024 Telephone encounter Raegan Arteaga APRN.ARMATURE AND ROTOR WINDER Work Phone: Hematology/Oncology Comment on above: Anemia; IV iron orde rs/scheduling Start: 2024 ambulatory [facility] Start: 07-16-2024 End: 07-16-2024 Office outpatient visit 25 minutes Raegan Arteaga APRN.[employer]URE [employer] W[employer]ER Work Phone: Hematology/Oncology Comment on above: CLL (chronic lymphoc ytic leukemia) (HCC) (Primary Dx); Anemia, unspecified type; Malaise and fatigue Start: 07-16-2024 End: 07-16-2024 ambulatory RAEGAN ARTEAGA Facility:[facility] Start: 07-16-2024 End: 07-17-2024 Clinisync Result Encounter Generic External Data Provider [facility] External Department Unsolicited Start: 07-16-2024 End: 07-17-2024 Clinisync Result Encounter Generic External Data Provider [facility] External Department Unsolicited Start: 07-12-2024 End: 07-12-2024 Clinisync Result Encounter Generic External Data Provider [facility] External Department Unsolicited Start: 07-12-2024 End: 07-12-2024 Clinisync Result Encounter Generic External Data Provider [facility] External Department Unsolicited Start: 07-09-2024 End: 07-09-2024 Clinisync Result Encounter Generic External Data Provider [facility] External Department Unsolicited Start: 07-09-2024 End: 07-09-2024 Clinisync Result Encounter Generic External Data Provider [facility] External Department Unsolicited Start: 07-09-2024 End: 07-09-2024 Office outpatient visit 40 minutes Shaggy Arriaza PA-C Work Phone: Hematology/Oncology Comment on above: CLL (chronic lymphoc ytic leukemia) (HCC) (Primary Dx); Anemia, unspecified type; Large granular lymphocytosis; Stage 3 chronic kidney disease, unspecified whether stage 3a or 3b CKD (HCC) Start: 07-09-2024 End: 07-09-2024 Patient encounter procedure Ccf Provider [facility] Department Start: 07-09-2024 End: 07-09-2024 Telephone encounter Shaggy Arriaza PA-C Work Phone: [facility] Comment on above: Transfusion Start: 07-09-2024 End: 07-09-2024 ambulatory SHAGGY ARRIAZA Facility:[facility] Start: 07-08-2024 End: 07-08-2024 Bamboo flowsheet Brad Wong MD Work Phone: [facility] Start: 07-08-2024 End: 07-08-2024 Bamesteban flowsheet Brad Wong MD Work Phone: [facility] Start: 07-08-2024 End: 07-08-2024 Office outpatient visit 15 minutes Brad Wong MD Work Phone: [facility] Comment on above: Seborrheic keratosis (Primary Dx); History of SCC (squamous cell carcinoma) of skin; Actinic keratosis; Lentigines; Neoplasm of unspecified behavior of bone, soft tissue, and skin Start: 07-08-2024 End: 07-08-2024 ambulatory BRAD WONG Not Available Start: 06-24-2024 End: 06-24-2024 Bamboo flowsheet Cruzito Mcgrath MD Work Phone: [facility] Start: 06-24-2024 End: 06-24-2024 Bamboo flowsheet Cruzito Mcgrath MD Work Phone: [facility] Start: 06-24-2024 End: 06-25-2024 Refill Cruzito Mcgrath MD Work Phone: [facility] Comment on above: Essential tremor Start: 06-24-2024 End: 06-24-2024 Transitional care manage srvc 14 day discharge Cruzito Mcgrath MD Work Phone: [facility] Comment on above: Gastrointestinal hem orrhage associated with acute gastritis (Primary Dx); Duodenitis; Asymptomatic bradycardia; Chronic heart failure with preserved ejection fraction (HFpEF) (CMS/HCC); Paroxysmal atrial fibrillation (CMS/HCC); Benign essential tremor; Essential tremor Start: 06-24-2024 End: 06-24-2024 ambulatory CRUZITO MCGRATH Not Available Start: 06-21-2024 End: 06-21-2024 Refill Cruzito Mcgrath MD Work Phone: [facility] Comment on above: Essential tremor Start: 06-16-2024 End: 06-16-2024 Clinisync Result Encounter Generic External Data Provider [facility] External Department Unsolicited Start: 06-16-2024 End: 06-16-2024 Clinisync Result Encounter Generic External Data Provider [facility] External Department Unsolicited Start: 06-14-2024 End: 06-14-2024 Refill Cruzito Mcgrath MD Work Phone: [facility] Comment on above: Essential tremor Start: 06-12-2024 Evaluation and manag ement of inpatient [facility] Start: 06-12-2024 Evaluation and manag ement of inpatient MICHELINE JOSEF [facility] Start: 06-12-2024 Evaluation and manag ement of inpatient ADRIANO MARTELL [facility] Start: 06-11-2024 Evaluation and manag ement of inpatient EULALIA EVI [facility] Start: 06-11-2024 Evaluation and manag ement of inpatient AB [facility] Start: 06-10-2024 Evaluation and manag ement of inpatient AB [facility] Start: 06-09-2024 Non-patient / Non-visit Cruzito hernandez MD Work Phone: [facility] Work Phone: Start: 06-09-2024 End: 06-13-2024 Evaluation and management of inpatient MILTON BEASLEY [facility] Start: 06-08-2024 End: 06-08-2024 Clinisync Result Encounter Generic External Data Provider [facility] External Department Unsolicited Start: 06-08-2024 End: 06-08-2024 Clinisync Result Encounter Generic External Data Provider [facility] External Department Unsolicited Start: 05-20-2024 End: 05-20-2024 Telephone encounter Yvrose Crawford CMA [facility] Start: 05-20-2024 End: 05-20-2024 Patient encounter procedure Cruzito Mcgrath MD Work Phone: [facility] Work Phone: Start: 05-12-2024 End: 05-12-2024 Bamboo flowsheet Cruzito Mcgrath MD Work Phone: [facility] Start: 05-12-2024 End: 05-12-2024 Bamboo flowsheet Cruzito Mcgrath MD Work Phone: [facility] Start: 05-12-2024 End: 05-12-2024 Transitional care manage srvc 14 day discharge Cruzito Mcgrath MD Work Phone: [facility] Comment on above: Type 2 diabetes alpesh itus with hyperglycemia, with long-term current use of insulin ([facility]) (Primary Dx); Benign essential HTN ([facility]); Chronic heart failure with preserved ejection fraction (HFpEF) ([facility]); Arteriosclerosis of coronary artery ([facility]); Benign essential tremor; PAD (peripheral artery disease) ([facility]); CKD stage 3b, GFR 30-44 ml/min ([facility]); 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[facility]); Type 2 diabetes mellitus 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 ([facility]) Start: 05-12-2024 End: 05-12-2024 ambulatory CRUZITO MCGRATH Not Available Start: 05-11-2024 End: 05-11-2024 ambulatory [facility] Start: 05-05-2024 End: 05-05-2024 Clinisync Result Encounter Generic External Data Provider [facility] External Department Unsolicited Start: 05-05-2024 End: 05-05-2024 Clinisync Result Encounter Generic External Data Provider [facility] External Department Unsolicited Start: 05-03-2024 End: 05-03-2024 ambulatory ADAMARIS SHAHID [facility] Start: 04-29-2024 End: 04-29-2024 Telephone encounter Carlotta Bahena [facility] Comment on above: abnormal rhythm Start: 04-28-2024 End: 04-28-2024 Telephone encounter Marisol Berry [facility] Comment on above: Hypertension continuation of orde rs (Contract: [id number] [facility] Sepideh re continuation of orders; A534) Start: 04-27-2024 End: 04-29-2024 Evaluation and management of inpatient MATILDE M [facility] Start: 04-26-2024 End: 04-26-2024 Telephone encounter Shahrzad Manley [facility] Comment on above: new consult (Elev. t rops) Start: 04-26-2024 End: 04-27-2024 Evaluation and management of inpatient CRUZITO MCGRATH [facility] Start: 04-20-2024 End: 04-20-2024 Patient encounter procedure MD Cruzito Mcgrath Work Phone: [facility]CT Scan [facility] [place] Work Phone: Start: 04-20-2024 End: 04-20-2024 ambulatory MD Cruzito Mcgrath Work Phone: [facility] Work Phone: Start: 04-14-2024 End: 04-14-2024 Patient encounter procedure MD Cruzito Mcgrath Work Phone: [facility] V[facility] Work Phone: Start: 04-13-2024 End: 04-13-2024 Patient encounter procedure MD Cruzito Mcgrath Work Phone: [facility] Work Phone: Start: 04-12-2024 End: 04-12-2024 ambulatory [facility] Start: 04-07-2024 End: 04-07-2024 ambulatory MD Cruzito Mcgrath Work Phone: [facility] Work Phone: Start: 04-07-2024 End: 04-07-2024 Patient encounter procedure MD Cruzito Mcgrath Work Phone: [facility]Ultrasound [place] Work Phone: Start: 03-29-2024 End: 03-30-2024 Refill Patria Bhat APRN-ARMATURE AND [employer]OTOR WINDER Work Phone: [facility] Comment on above: Med Refill Start: 03-24-2024 End: 03-24-2024 Orders Only Cruzito Mcgrath MD Work Phone: [facility] Comment on above: DDD (degenerative di sc disease), lumbar (Primary Dx); Lumbar radiculopathy Start: 03-18-2024 End: 03-18-2024 Patient encounter procedure MD Cruzito Mcgrath Work Phone: [facility] V[facility] Surgery Work Phone: Start: 03-09-2024 End: 03-09-2024 Bamboo flowsheet Jeromy Mejia MD Work Phone: [facility] Start: 03-09-2024 End: 03-09-2024 Bamboo flowsheet Jeromy Mejia MD Work Phone: [facility] Start: 03-09-2024 End: 03-09-2024 Telephone encounter [facility] Comment on above: cancel appointment ( patient called to cancel appointment did not want to reschedule) Start: 03-09-2024 End: 03-09-2024 Office outpatient new 30 minutes Jeromy Mejia MD Work Phone: [facility] Comment on above: Change in voice; Hoarseness Start: 03-09-2024 End: 03-09-2024 ambulatory JEROMY MEJIA Not Available Start: 03-05-2024 End: 03-06-2024 Emergency department patient visit DANIEL MISTRY [facility] Start: 03-05-2024 End: 03-05-2024 Emergency department [facility] Start: 02-26-2024 End: 02-26-2024 ambulatory CRUZITO MCGRATH Not Available Start: 02-24-2024 End: 02-24-2024 ambulatory JUDAH COSTELLO [facility] Start: 01-16-2024 End: 01-16-2024 Office outpatient visit 25 minutes Dipti Beckham MD Work Phone: Hematology/Oncology Comment on above: CLL (chronic lymphoc ytic leukemia) (HCC) (Primary Dx); Large granular lymphocytosis; Stage 3 chronic kidney disease, unspecified whether stage 3a or 3b CKD (HCC) Start: 01-16-2024 End: 01-16-2024 ambulatory DIPTI BECKHAM Facility:[facility] Start: 12-27-2023 End: 12-27-2023 ambulatory Arminda Valverde [facility] Work Phone: Start: 12-27-2023 End: 12-27-2023 Departed Referred DO Arminda Valverde Work Phone: [facility]LAB [facility] Start: 09-03-2023 End: 09-03-2023 Office outpatient visit 15 minutes January Sanders INSPECTOR PLUG SEAM-ARMATURE AND ROTOR WINDER Work Phone: [facility] Comment on above: Coronary artery dise ase involving [place] coronary artery of [place] heart without angina pectoris (Primary Dx); Sinus pause; Hypertension, unspecified type; NSTEMI (non-ST elevated myocardial infarction) ([facility]) Start: 09-03-2023 End: 09-03-2023 [facility] Start: 08-27-2023 End: 08-27-2023 Office outpatient visit 15 minutes Rickie Hirsch MD Work Phone: [facility] Comment on above: History of coronary angioplasty with insertion of stent (Primary Dx); Pulmonary hypertension ([facility]); Primary hypertension; Hx of hyperlipidemia; Sinus pause Start: 08-26-2023 Telephone encounter Gabbie Rebolledo CMA [facility] Start: 08-21-2023 End: 08-21-2023 Patient encounter procedure Missangll Home INSPECTOR PLUG SEAM-ARMATURE AND ROTOR WINDER Work Phone: [facility] Start: 08-20-2023 End: 08-20-2023 Patient encounter procedure Mischell Home INSPECTOR PLUG SEAM-ARMATURE AND ROTOR WINDER Work Phone: [facility] Start: 08-14-2023 End: 08-14-2023 Patient encounter procedure [facility] INSPECTOR PLUG SEAM-ARMATURE AND ROTOR WINDER Work Phone: [facility] Start: 08-11-2023 End: 08-11-2023 Patient encounter procedure [facility] INSPECTOR PLUG SEAM-ARMATURE AND ROTOR WINDER Work Phone: [facility] Start: 08-07-2023 End: 08-07-2023 Patient encounter procedure [facility] INSPECTOR PLUG SEAM-ARMATURE AND ROTOR WINDER Work Phone: [facility] Start: 08-04-2023 Documentation procedure Pamela Donald MD Work Phone: [facility] [employer] Handler Sign In Start: 08-04-2023 End: 08-04-2023 Patient encounter procedure [facility] INSPECTOR PLUG SEAM-ARMATURE AND ROTOR WINDER Work Phone: [facility] Start: 07-31-2023 End: 07-31-2023 Patient encounter procedure [facility] INSPECTOR PLUG SEAM-ARMATURE AND ROTOR WINDER Work Phone: [facility] Start: 07-24-2023 End: 07-24-2023 Patient encounter procedure [facility] INSPECTOR PLUG SEAM-ARMATURE AND ROTOR WINDER Work Phone: [facility] Start: 07-23-2023 End: 07-23-2023 Patient encounter procedure [facility] INSPECTOR PLUG SEAM-ARMATURE AND ROTOR WINDER Work Phone: [facility] Start: 07-17-2023 End: 07-17-2023 Patient encounter procedure [facility] INSPECTOR PLUG SEAM-ARMATURE AND ROTOR WINDER Work Phone: [facility] Comment on above: Arrived Start: 12-27-2022 End: 12-27-2022 Office outpatient visit 15 minutes Dipti Beckham MD Work Phone: Hematology/Oncology Comment on above: CLL (chronic lymphoc ytic leukemia) (HCC) (Primary Dx); Large granular lymphocytosis; Stage 3 chronic kidney disease, unspecified whether stage 3a or 3b CKD (HCC); Type 2 diabetes mellitus 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, unspecified whether rat exterminator insulin use (HCC) Start: 06-27-2022 End: 06-28-2022 ambulatory Dipti Beckham MD Work Phone: Hematology/Oncology Comment on above: CLL (chronic lymphoc ytic leukemia) (HCC) (Primary Dx); Large granular lymphocytosis Start: 06-27-2022 End: 06-28-2022 Telemedicine consultation with patient Dipti Beckham MD Work Phone: [facility] Start: 06-21-2022 End: 06-21-2022 ambulatory Dipti Beckham MD Work Phone: Hematology/Oncology Comment on above: Lymphocytosis (Prima ry Dx) Start: 06-21-2022 End: 06-21-2022 Patient encounter procedure Dipti Beckham MD Work Phone: [facility] Start: 06-18-2022 Chart abstracting Dipti salas MD Work Phone: Hematology/Oncology Start: 06-06-2022 End: 06-07-[address] CRUZITO MCGRATH Facility:[facility] Start: 12-06-2021 End: 12-07-[address] CRUZITO MCGRATH Facility: Start: 01-01-2021 End: 01-01-2021 Patient encounter procedure Cruzito Mcgrath Work Phone: [facility] [place] Procedures Date Procedure Procedure Detail Performing Clinician Start: 01-28-2025 CA ECHO DOPPLER COMPLETE Generic External Data Provider Start: 01-06-2025 CRYOTHERAPY SKIN LESION Brad Wong MD Work Phone: Start: 11-10-2024 MLR HEMOGLOBIN A1C Cruzito Mcgrath MD Work Phone: Start: 10-25-2024 [facility] COMP METAB 2000 PNL SERPL Generic External Data Provider Start: 09-16-2024 End: 09-16-2024 Needle emg ea extremty w/paraspinl area complete Zahraa Cristobal DO Work Phone: Start: 08-16-2024 IR Angiogram w/TLA/S tent Left Leg (Left) Cruzito Mcgrath MD Work Phone: Start: 07-16-2024 [facility] CBC W AUTO DIFF BLD Generic External Data Provider Start: 07-16-2024 CBC + DIFF Raegan Kalli d INSPECTOR PLUG SEAM.ARMATURE AND ROTOR WINDER Work Phone: Start: 07-12-2024 ALL HGB HCT Generic Ex ternal Data Provider Start: 07-09-2024 [facility] COMP METAB 2000 PNL SERPL Generic External Data Provider Start: 07-09-2024 [facility] LDH SERPL-[facility] Gene jamshid External Data Provider Start: 07-09-2024 [facility] URATE SERPL-[facility] Ge neric External Data Provider Start: 07-08-2024 SKIN / NAIL BIOPSY Ladarius Wong MD Work Phone: Start: 07-08-2024 CRYOTHERAPY SKIN LESION Brad Yuriy Wong MD Work Phone: Start: 06-16-2024 ALL BASIC METABOLIC PANEL Generic External Data Provider Start: 06-16-2024 ALL MAGNESIUM Generic E xternal Data Provider Start: 06-08-2024 ALL BASIC METABOLIC PANEL Generic External Data Provider Start: 05-05-2024 ALL LIPID PROFILE (FASTING) Generic External Data Provider Start: 04-27-2024 Adult depression screening assessment Marisol Jamal Start: 04-20-2024 CT of abdominal aort a with contrast MD Cruzito Mcgrath Work Phone: Start: 04-07-2024 Pulse volume recorde r plethysmography MD Cruzito Mcgrath Work Phone: Start: 04-05-2023 Adult depression screening assessment [facility] 1 Start: 12-26-2022 Colonoscopy Dipti miles MD Work Phone: Start: 06-06-[address] CRUZITO HERNANDEZ Comment on above: Performed By: #### V ITAD, PSASC #### [facility] [address] [place] [address] Dr. Lara Dominguez Start: 10-30-2016 Microalbumin [Mass/volume] in Urine by Test strip [facility] 1 History of placement of stent for coronary artery disease History of coronary angioplasty with insertion of stent Rickie Hirsch MD Work Phone: Plan of Treatment Date Care Activity Detail Author Start: 12-27-2027 Screening for malignant neoplasm of colon Colonoscopy [facility] Start: 10-25-2025 Complete blood count Hemoglobin/Hematocrit [facility] Start: 10-25-2025 Creatinine measurement Serum Creatinine [facility] Start: 10-19-2025 Glaucoma screening Diabetes: Retinopathy Screening [facility] Start: 07-16-2025 Complete blood count Hemoglobin/Hematocrit [facility] Start: 07-09-2025 Complete blood count Hemoglobin/Hematocrit [facility] Start: 07-09-2025 Creatinine measurement Serum Creatinine [facility] Start: 07-07-2025 End: 07-07-2025 Patient encounter procedure [facility] Start: 06-21-2025 DIABETES SCREEN DIABETES SCREEN [facility] Start: 06-13-2025 Complete blood count Hemoglobin/Hematocrit [facility] Start: 05-12-2025 Medicare Annual Wellness (AWV) Medicare Annual Wellness (AWV) [facility] Start: 05-12-2025 End: 05-12-2025 Patient encounter procedure 05/12/2025 10:45 AM EDT Office Visit [facility] [address] [place] [address] Cruzito Mcgrath MD [address] [place] [address] [facility] Start: 05-02-2025 End: 05-02-2025 Follow-up encounter Hematology/Oncology Comment on above: 6 month follow up possible monoferric Start: 04-29-2025 Adult BMI Screening Adult BMI Screening [facility] Start: 04-28-2025 Adult BMI Screening Adult BMI Screening [facility] Start: 04-27-2025 Adult BMI Screening Adult BMI Screening [facility] Start: 04-27-2025 Depression Screening Depression Screening [facility] Start: 04-27-2025 Hepatitis B screening Urine Albumin:Creatinine Ratio [facility] Start: 04-27-2025 Tobacco Screening Tobacco Screening [facility] Start: 04-26-2025 Adult BMI Screening Adult BMI Screening [facility] Start: 04-26-2025 Tobacco Screening Tobacco Screening [facility] Start: 04-25-2025 End: 04-25-2025 Patient encounter procedure 04/25/2025 11:00 AM EDT Office Visit [facility] [address] [place] [address] [place] [address] 6 month lab prior to follow up [facility] Comment on above: 6 month lab prior to follow up Start: 03-21-2025 Influenza vaccination [facility] Start: 03-10-2025 Patient referral [facility] Work Phone: Start: 03-10-2025 End: 03-10-2025 Patient encounter procedure 03/10/2025 11:20 AM EDT Office Visit [facility] [address] [place] [phone] Laura Sinha NP [address] [place] [address] [facility] Start: 03-05-2025 Adult BMI Screening Adult BMI Screening [facility] Start: 03-05-2025 Tobacco Screening Tobacco Screening [facility] Start: 01-15-2025 Creatinine measurement Serum Creatinine [facility] Start: 01-12-2025 End: 01-12-2025 Patient encounter procedure 01/12/2025 4:00 PM EDT Office Visit [facility] [address] [place] [address] Jayy Hines MD [address] [place] [address], [address] [address] [facility] [address] Start: 01-07-2025 End: 04-08-2025 CBC W Auto Differential panel - Blood COMPLETE BLOOD COUNT AND DIFFERENTIAL Lab Routine CLL (chronic lymphocytic leukemia) (HCC) Expected: 01/07/2025 (Approximate), Expires: 04/08/2025 [facility] Comment on above: Expected: 01/07/2025 (Approximate), Expi res: 04/08/2025 Start: 01-07-2025 End: 04-08-2025 Comprehensive metabolic 2000 panel - Serum or Plasma COMPREHENSIVE METABOLIC PANEL Lab Routine CLL (chronic lymphocytic leukemia) (HCC) Expected: 01/07/2025 (Approximate), Expires: 04/08/2025 [facility] Work Phone: Comment on above: Expected: 01/07/2025 (Approximate), Expi res: 04/08/2025 Start: 01-06-2025 Urine screening for protein Diabetes: Urine Protein Screening [facility] Start: 01-06-2025 End: 01-06-2025 Patient encounter procedure MESHA BERNAL Comment on above: Arrived Start: 11-16-2024 End: 11-16-2024 Patient encounter procedure RAMÓN AGUIRRE Comment on above: Arrived Start: 11-10-2024 Covid-19 Vaccine (7 - Moderna risk season) Covid-19 Vaccine (7 - Moderna risk ) [facility] Start: 11-10-2024 End: 11-10-2025 Hemoglobin A1c/Hemoglobin.total in Blood Hemoglobin A1c Lab Routine Type 2 diabetes mellitus with hyperglycemia, with long-term current use of insulin ([facility]) Expected: 11/10/2024 (Approximate), Expires: 11/10/2025 [facility] Work Phone: Comment on above: Expected: 11/10/2024 (Approximate), Expi res: 11/10/2025 Start: 11-10-2024 End: 11-10-2024 Patient encounter procedure 11/10/2024 10:30 AM EDT Office Visit [facility] [address] [place] [address] Cruzito Mcgrath MD [address] [place] [address] [facility] Start: 11-04-2024 End: 11-04-2024 ambulatory 11/04/2024 2:15 PM EDT [facility] Hematology/Oncology [address] [place] [address] [place] [address] Monoferric tx per phone encounter [facility] Hematology/Oncology Comment on above: Monoferric tx per phone encounter JR Start: 10-25-2024 End: 10-25-2024 Follow-up encounter 10/25/2024 11:00 AM EDT Visit (SP) Office Hematology/Oncology [address] [place] [address] Raegan Arteaga APRN.AR[employer]URE [employer] [address] [place] [address] 3 month follow up w/ lab Hematology/Oncology Comment on above: 3 month follow up w/ lab Start: 10-25-2024 End: 10-25-2024 Patient encounter procedure 10/25/2024 10:45 AM EDT Office Visit [facility] [address] [place] [address] 3 month follow up w/ lab [facility] Comment on above: 3 month follow up w/ lab Start: 10-22-2024 End: 01-21-2025 CBC W Auto Differential panel - Blood COMPLETE BLOOD COUNT AND DIFFERENTIAL Lab Routine CLL (chronic lymphocytic leukemia) (HCC) Other iron deficiency anemia Expected: 10/22/2024, Expires: 01/21/2025 [facility] Comment on above: Expected: 10/22/2024, Expires: Start: 10-22-2024 End: 01-21-2025 Comprehensive metabolic 2000 panel - Serum or Plasma COMPREHENSIVE METABOLIC PANEL Lab Routine CLL (chronic lymphocytic leukemia) (HCC) Other iron deficiency anemia Expected: 10/22/2024, Expires: 01/21/2025 [facility] Comment on above: Expected: 10/22/2024, Expires: Start: 10-22-2024 End: 01-21-2025 Ferritin [Mass/volume] in Serum or Plasma FERRITIN Lab Routine CLL (chronic lymphocytic leukemia) (HCC) Other iron deficiency anemia Expected: 10/22/2024, Expires: 01/21/2025 [facility] Comment on above: Expected: 10/22/2024, Expires: Start: 10-22-2024 End: 01-21-2025 Iron and Iron binding capacity panel - Serum or Plasma IRON AND TIBC Lab Routine CLL (chronic lymphocytic leukemia) (HCC) Other iron deficiency anemia Expected: 10/22/2024, Expires: 01/21/2025 [facility] Work Phone: Comment on above: Expected: 10/22/2024, Expires: Start: 09-16-2024 End: 09-16-2024 Patient encounter procedure RAMÓN AGUIRRE Comment on above: Arrived Start: 09-08-2024 End: 09-08-2024 Patient encounter procedure RAMÓN [place] Comment on above: Tremor Start: 09-08-2024 End: 09-08-2025 EMG 2 Extremities EMG 2 Extremities Neurology Routine Gait instability Expected: 09/08/2024, Expires: 09/08/2025 [facility] Work Phone: Comment on above: Expected: 09/08/2024, Expires: Start: 09-06-2024 End: 09-06-2024 Clinical Support 09/06/2024 8:00 PM EST Clinical Support [facility] [address] [place] [address] [facility] Start: 09-03-2024 Adult BMI Screening Adult BMI Screening [facility] Start: 09-03-2024 Tobacco Screening Tobacco Screening [facility] Start: 08-27-2024 Adult BMI Screening Adult BMI Screening [facility] Start: 08-27-2024 Tobacco Screening Tobacco Screening [facility] Start: 08-19-2024 End: 08-19-2024 Patient encounter procedure [facility] Comment on above: Arrived Start: 08-16-2024 [facility] Start: 07-28-2024 End: 07-28-2024 ambulatory 07/28/2024 11:00 AM EST [facility] Hematology/Oncology [address] [place] [address] [place] [address] [facility] Comment on above: [facility] Start: 07-21-2024 Advance Directive Discussion Advance Directive Discussion [facility] Start: 07-17-2024 End: 01-15-2025 CBC W Auto Differential panel - Blood COMPLETE BLOOD COUNT AND DIFFERENTIAL Lab Routine CLL (chronic lymphocytic leukemia) (HCC) Expected: 07/17/2024 (Approximate), Expires: 01/15/2025 [facility] Comment on above: Expected: 07/17/2024 (Approximate), Expi res: 01/15/2025 Start: 07-17-2024 End: 01-15-2025 Comprehensive metabolic 2000 panel - Serum or Plasma COMPREHENSIVE METABOLIC PANEL Lab Routine CLL (chronic lymphocytic leukemia) (HCC) Expected: 07/17/2024 (Approximate), Expires: 01/15/2025 [facility] Comment on above: Expected: 07/17/2024 (Approximate), Expi res: 01/15/2025 Start: 07-17-2024 End: 01-15-2025 Lactate dehydrogenase [Enzymatic activity/volume] in Serum or Plasma LACTATE DEHYDROGENASE Lab Routine CLL (chronic lymphocytic leukemia) (HCC) Expected: 07/17/2024 (Approximate), Expires: 01/15/2025 [facility] Work Phone: Comment on above: Expected: 07/17/2024 (Approximate), Expi res: 01/15/2025 Start: 07-17-2024 End: 10-16-2024 Urate [Mass/volume] in Serum or Plasma URIC ACID Lab Routine CLL (chronic lymphocytic leukemia) (HCC) Expected: 07/17/2024 (Approximate), Expires: 10/16/2024 [facility] Comment on above: Expected: 07/17/2024 (Approximate), Expi res: 10/16/2024 Start: 07-16-2024 End: 07-16-2024 Follow-up encounter 07/16/2024 2:30 PM EST Visit (SP) Office [facility]ematology/Oncology [address] [facility] [place] [address] Raegan Arteaga APRN.[employer]URE [employer] [address] [place] [address] 1 week follow up labs Hematology/Oncology Comment on above: 1 week follow up labs Start: 07-16-2024 End: 07-16-2024 Patient encounter procedure 07/16/2024 2:15 PM EST Office Visit [facility] [address] [place] [address] 1 week follow up labs [facility] Comment on above: 1 week follow up labs Start: 07-16-2024 Complete blood count Hemoglobin/Hematocrit [facility] Start: 07-09-2024 End: 07-09-2024 Follow-up encounter 07/09/2024 2:15 PM EST Visit (SP) Office Hematology/Oncology [address] [place] [address] Dipti Beckham MD [address] [place] [address] 6 month follow up lab Hematology/Oncology Comment on above: 6 month follow up lab Start: 07-09-2024 End: 10-08-2024 [id number] [Mass/volume] in Serum or Plasma [facility] Comment on above: Expected: 07/09/2024, Expires: Start: 07-09-2024 End: 10-08-2024 Cobalamin (Vitamin B12) [Mass/volume] in Serum or Plasma [facility] Comment on above: Expected: 07/09/2024, Expires: Start: 07-09-2024 End: 10-08-2024 Direct antiglobulin test.poly specific reagent [Presence] on Red Blood Cells [facility] Comment on above: Expected: 07/09/2024, Expires: 5 Start: 07-09-2024 End: 10-08-2024 Erythropoietin (EPO) [Units/volume] in Serum or Plasma [facility] Comment on above: Expected: 07/09/2024, Expires: 5 Start: 07-09-2024 End: 10-08-2024 Ferritin [Mass/volume] in Serum or Plasma [facility] Comment on above: Expected: 07/09/2024, Expires: Start: 07-09-2024 End: 10-08-2024 Folate [Mass/volume] in Serum or Plasma [facility] Comment on above: Expected: 07/09/2024, Expires: 5 Start: 07-09-2024 End: 10-08-2024 Haptoglobin [Mass/volume] in Serum or Plasma [facility] Comment on above: Expected: 07/09/2024, Expires: Start: 07-09-2024 End: 10-08-2024 Iron and Iron binding capacity panel - Serum or Plasma [facility] Comment on above: Expected: 07/09/2024, Expires: 5 Start: 07-09-2024 End: 10-08-2024 Methylmalonate [Moles/volume] in Serum or Plasma [facility] Comment on above: Expected: 07/09/2024, Expires: 5 Start: 07-09-2024 End: 10-08-2024 MONOCLONAL PROTEIN, SERUM (BLOOD) [facility] Comment on above: Expected: 07/09/2024, Expires: Start: 07-09-2024 End: 07-09-2024 Patient encounter procedure 07/09/2024 2:00 PM EST Office Visit [facility] [address] [place] [address] [place] [address] 6 month follow up lab [facility] Comment on above: 6 month follow up lab Start: 07-09-2024 End: 10-08-2024 Thyrotropin [Units/volume] in Serum or Plasma [facility] Comment on above: Expected: 07/09/2024, Expires: Start: 07-08-2024 Hemoglobin A1c measurement Diabetes: Hemoglobin A1C [facility] Start: 07-08-2024 End: 07-08-2024 Patient encounter procedure [facility] Comment on above: Arrived Start: 07-07-2024 Covid-19 Vaccine () Covid-19 Vaccine () [facility] Start: 06-24-2024 End: 06-24-2024 Patient encounter procedure [facility] Comment on above: Arrived Start: 05-12-2024 End: 05-12-2025 Hemoglobin A1c/Hemoglobin.total in Blood Hemoglobin A1c Lab Routine Type 2 diabetes mellitus with hyperglycemia, with long-term current use of insulin ([facility]/HCC) Expected: 05/12/2024 (Approximate), Expires: 05/12/2025 [facility] Work Phone: Comment on above: Expected: 05/12/2024 (Approximate), Expi res: 05/12/2025 Start: 05-12-2024 End: 05-12-2024 Patient encounter procedure [facility] Comment on above: Arrived Start: 05-01-2024 Adult BMI Screening Adult BMI Screening [facility] Start: 05-01-2024 Tobacco Screening Tobacco Screening [facility] Start: 04-30-2024 End: 04-30-2024 Patient encounter procedure 04/30/2024 9:00 AM EDT Office Visit [facility] [address] [place] [address] Cruzito Mcgrath MD [address] [place] [phone] [facility] Start: 04-08-2024 Hemoglobin A1c measurement Diabetes: Hemoglobin A1C [facility] Start: 04-07-2024 Pulse volume recorder plethysmography [facility] Start: 04-05-2024 Depression Screening Depression Screening [facility] Start: 03-21-2024 COVID-19 Vaccine ( season) COVID-19 Vaccine ( season) [facility] Start: 03-21-2024 COVID-19 Vaccine ( season) COVID-19 Vaccine ( season) [facility] Start: 03-21-2024 Influenza vaccination [facility] Start: 03-15-2024 End: 03-15-2024 Patient encounter procedure [facility] Start: 03-09-2024 End: 03-09-2024 Patient encounter procedure 03/09/2024 9:20 AM EDT Office Visit [facility] [address] [facility] [address] [place] [phone] Jeromy Mejia MD [address] [facility] [address] [place] [address] Change in voice; Hoarseness [facility] Comment on above: Change in voice; Hoarseness Start: 02-24-2024 End: 02-24-2024 Patient encounter procedure [facility] Start: 01-21-2024 Hemoglobin A1c measurement HbA1C [facility] Start: 12-28-2023 HEMOGLOBIN/HEMATOCRIT HEMOGLOBIN/HEMATOCRIT [facility] Start: 12-28-2023 SERUM CREATININE SERUM CREATININE [facility] Start: 12-27-2023 Colonoscopy COLONOSCOPY [facility] Start: 12-27-2023 COLORECTAL CANCER SCREENING COLORECTAL CANCER SCREENING [facility] Start: 12-01-2023 COVID-19 Vaccine () COVID-19 Vaccine () [facility] Start: 10-28-2023 End: 10-28-2023 Patient encounter procedure 10/28/2023 11:00 AM EDT Office Visit [facility] [address] [place] [phone] Gage Norton MD [address] [place] [address] [facility] Start: 09-27-2023 Covid-19 Vaccine () Covid-19 Vaccine () [facility] Start: 09-03-2023 End: 09-03-2023 Patient encounter procedure 09/03/2023 1:00 PM EST Office Visit [facility] [address] [place] [phone] January Sanders, [employer]URE [employer] [address] [place] [address] [facility] Start: 08-27-2023 End: 08-27-2023 Patient encounter procedure 08/27/2023 2:00 PM EST Office Visit [facility] [address] [place] [phone] Rickie Hirsch MD [address] [place], [place] [id number] [facility] Start: 08-21-2023 End: 08-21-2023 Patient encounter procedure 08/21/2023 1:00 PM EST Office Visit [facility] [address] [place] [address] Patria Bhat APRN-ARMATURE [employer] [address] [place] [address] [facility] Start: 08-20-2023 End: 08-20-2023 Patient encounter procedure 08/20/2023 1:00 PM EST Office Visit [facility] [address] [facility] [address] Patria Bhat APRN-ARMATURE [employer] [address] [place] [address] [facility] Start: 08-18-2023 End: 08-18-2023 Patient encounter procedure 08/18/2023 1:00 PM EST Office Visit [facility] [address] [facility] [address] Patria Bhat APRN-ARMATURE [employer] [address] [place] [address] [facility] Start: 08-14-2023 End: 08-14-2023 Patient encounter procedure 08/14/2023 1:00 PM EST Office Visit [facility] [address] [facility] [address] Patria Bhat APRN-[employer]MATURE [employer] [address] [place] [address] [facility] Start: 08-13-2023 End: 08-13-2023 Patient encounter procedure 08/13/2023 1:00 PM EST Office Visit [facility] [address] [place] [address] Patria Bhat APRN-[employer]MATURE [employer] [address] [place] [address] [facility] Start: 08-11-2023 End: 08-11-2023 Patient encounter procedure 08/11/2023 1:00 PM EST Office Visit [facility] [address] [place] [address] Patria Bhat APRN-ARMATURE [employer] [address] [place] [address] [facility] Start: 08-07-2023 End: 08-07-2023 Patient encounter procedure 08/07/2023 1:00 PM EST Office Visit [facility] [address] [facility] [address] Patria Bhat APRN-[employer]MATURE [employer] [address] [place] [address] [facility] Start: 08-06-2023 End: 08-06-2023 Patient encounter procedure 08/06/2023 1:00 PM EST Office Visit [facility] [address] [facility] [address] Patria Bhat APRN-[employer]MATURE [employer] [address] [place] [address] [facility] Start: 08-05-2023 End: 08-05-2023 Patient encounter procedure 08/05/2023 9:00 AM EST Appointment [facility] [address] [place] [address] Pamela Donald MD [address] [place] [address] [facility] Start: 08-04-2023 End: 08-04-2024 Holter monitor study Holter monitor 24-48 hour Cardiac Services Routine Bradycardia Expected: 08/04/2023, Expires: 08/04/2024 [facility] Work Phone: Comment on above: Expected: 08/04/2023, Expires: Start: 08-04-2023 End: 08-04-2023 Patient encounter procedure 08/04/2023 1:00 PM EST Office Visit [facility] [address] [place] [address] Patria Bhat APRN-[employer]URE [employer] [address] [place] [address] [facility] Start: 07-31-2023 End: 07-31-2023 Patient encounter procedure 07/31/2023 1:00 PM EST Office Visit [facility] [address] [place] [address] Patria Bhat APRN-[employer]MATURE [employer] [address] [place] [address] [facility] Start: 07-30-2023 End: 07-30-2023 Patient encounter procedure 07/30/2023 1:00 PM EST Office Visit [facility] [address] [place] [address] Patria Bhat APRN-ARMATURE [employer] [address] [place] [address] [facility] Start: 07-28-2023 End: 07-28-2023 Patient encounter procedure 07/28/2023 1:00 PM EST Office Visit [facility] [address] [place] [address] Patria Bhat APRN-ARMATURE [employer] [address] [place] [address] [facility] Start: 07-24-2023 End: 07-24-2023 Patient encounter procedure 07/24/2023 1:00 PM EST Office Visit [facility] [address] [place] [address] Patria Bhat APRN-ARMATURE AND [employer] [address] [place] [address] [facility] Start: 07-23-2023 End: 07-23-2023 Patient encounter procedure 07/23/2023 1:00 PM EST Office Visit [facility] [address] [place] [address] Patria Bhat APRN-ARMATURE AND [employer] [address] [place] [address] [facility] Start: 07-21-2023 Advance Directive Discussion Advance Directive Discussion [facility] Start: 07-21-2023 Behavioral Health Screening Behavioral Health Screening [facility] Start: 06-28-2023 End: 12-28-2023 CBC W Auto Differential panel - Blood CBC + DIFF Lab Routine CLL (chronic lymphocytic leukemia) (HCC) Large granular lymphocytosis Expected: 06/28/2023 (Approximate), Expires: 12/28/2023 [facility] Work Phone: Comment on above: Expected: 06/28/2023 (Approximate), Expi res: 12/28/2023 Start: 06-28-2023 End: 12-28-2023 Comprehensive metabolic 2000 panel - Serum or Plasma COMP METABOLIC PANEL Lab Routine CLL (chronic lymphocytic leukemia) (HCC) Large granular lymphocytosis Expected: 06/28/2023 (Approximate), Expires: 12/28/2023 [facility] Work Phone: Comment on above: Expected: 06/28/2023 (Approximate), Expi res: 12/28/2023 Start: 06-28-2023 End: 12-28-2023 Lactate dehydrogenase [Enzymatic activity/volume] in Serum or Plasma LD LACTATE DEHYDRO Lab Routine CLL (chronic lymphocytic leukemia) (HCC) Large granular lymphocytosis Expected: 06/28/2023 (Approximate), Expires: 12/28/2023 [facility] Work Phone: Comment on above: Expected: 06/28/2023 (Approximate), Expi res: 12/28/2023 Start: 06-28-2023 End: 08-28-2023 Urate [Mass/volume] in Serum or Plasma URIC ACID BLOOD Lab Routine CLL (chronic lymphocytic leukemia) (HCC) Large granular lymphocytosis Expected: 06/28/2023 (Approximate), Expires: 08/28/2023 [facility] Work Phone: Comment on above: Expected: 06/28/2023 (Approximate), Expi res: 08/28/2023 Start: 05-22-2023 Hemoglobin A1c/Hemoglobin.total in Blood HBA1C [facility] Start: 03-21-2023 COVID-19 Vaccine () COVID-19 Vaccine () [facility] Start: 03-21-2023 Influenza vaccination Influenza Vaccine [facility] Start: 07-21-2022 ADVANCE DIRECTIVE DISCUSSION ADVANCE DIRECTIVE DISCUSSION [facility] Start: 07-21-2022 DEPRESSION ASSESSMENT DEPRESSION ASSESSMENT [facility] Start: 2022 RSV Vaccine (1 - 1-dose 75+ series) RSV Vaccine (1 - 1-dose 75+ series) [facility] Start: 06-21-2022 End: 08-21-2022 FISH FOR CLL [facility] Work Phone: Comment on above: Expected: 06/21/2022, Expires: 3 Start: 06-21-2022 End: 08-21-2022 PROTEIN ELECTROPHORESIS SERUM W/INTERP [facility] Work Phone: Comment on above: Expected: 06/21/2022, Expires: 3 Start: 03-21-2022 Influenza vaccination INFLUENZA (#1) [facility] Start: 07-21-2021 ADVANCE DIRECTIVE DISCUSSION ADVANCE DIRECTIVE DISCUSSION [facility] Start: 07-21-2021 DEPRESSION ASSESSMENT DEPRESSION ASSESSMENT [facility] Start: 06-24-2019 PNEUMOCOCCAL: 65+ (2 - PPSV23 if available, else PCV20) PNEUMOCOCCAL: 65+ (2 - PPSV23 if available, else PCV20) [facility] Start: 08-19-2018 Pneumococcal Vaccine: 50+ (2 of 2 - PPSV23) Pneumococcal Vaccine: 50+ (2 of 2 - PPSV23) [facility] Start: 08-19-2018 Pneumococcal Vaccine: 65+ (2 of 2 - PPSV23 or PCV20) Pneumococcal Vaccine: 65+ (2 of 2 - PPSV23 or PCV20) [facility] Start: 08-19-2018 Pneumococcal Vaccine: 65+ Years (3 of 3 - PPSV23 or PCV20) Pneumococcal Vaccine: 65+ Years (3 of 3 - PPSV23 or PCV20) [facility] Start: 08-19-2018 Pneumococcal Vaccine: 65+ Years (3 of 3 - PPSV23, PCV20 or PCV21) Pneumococcal Vaccine: 65+ Years (3 of 3 - PPSV23, PCV20 or PCV21) [facility] Start: 08-19-2018 PNEUMOCOCCAL: 65+ (2 - PPSV23 if available, else PCV20) PNEUMOCOCCAL: 65+ (2 - PPSV23 if available, else PCV20) [facility] Start: 10-30-2017 Urine screening for protein Urine Microalbumin [facility] Start: 2012 Abdominal aortic aneurysm screening Abdominal Aortic Aneurysm (AAA) Screen [facility] [facility] Start: 2012 Fall Risk Screening Fall Risk Screening [facility] Start: 2012 PNEUMOCOCCAL: 65+ (1 - PCV) PNEUMOCOCCAL: 65+ (1 - PCV) [facility] Start: 2007 RSV Vaccine (1 - 1-dose 60+ series) RSV Vaccine (1 - 1-dose 60+ series) [facility] Start: 1997 Administration of varicella zoster vaccine Zoster (Shingles) Vaccine (1 of 2) [facility] Start: 1997 SHINGRIX VACCINE (1 of 2) SHINGRIX VACCINE (1 of 2) [facility] Start: 1992 COLOGUARD (FIT-DNA) COLOGUARD (FIT-DNA) [facility] Start: 1992 Colonoscopy COLONOSCOPY [facility] Start: 1992 COLORECTAL CANCER SCREENING COLORECTAL CANCER SCREENING [facility] Start: [address] COLONOGRAPHY [facility] Start: 1992 DIABETES SCREEN DIABETES SCREEN [facility] Start: 1992 FECAL OCCULT BLOOD FECAL OCCULT BLOOD [facility] Start: 1992 SIGMOIDOSCOPY SIGMOIDOSCOPY [facility] Start: 1982 LIPID SCREEN LIPID SCREEN [facility] Start: 1966 Administration of varicella zoster vaccine Zoster (Shingles) Vaccine (1 of 2) [facility] Start: 1966 DTaP,Tdap and Td Vaccines (1 - Tdap) DTaP,Tdap and Td Vaccines (1 - Tdap) [facility] Start: 1966 SHINGRIX VACCINE (1 of 2) SHINGRIX VACCINE (1 of 2) [facility] Start: 1966 Urine microalbumin profile [facility] Start: 1965 Adult BMI Follow Up Plan Adult BMI Follow Up Plan [facility] Start: 1965 ANNUAL PCP TEAM CHRONIC DISEASE VISIT ANNUAL PCP TEAM CHRONIC DISEASE VISIT [facility] Start: 1965 Anxiety Screening Anxiety Screening [facility] Start: 1965 Depression Screening Depression Screening [facility] Start: 1965 Hepatitis B surface antibody level LDL CHOLESTEROL [facility] Start: 1965 HEPATITIS C SCREENING HEPATITIS C SCREENING [facility] Start: 1965 Hepatitis C screening Hepatitis C Screening [facility] Start: 1957 3 comp foot exam completed DIABETIC FOOT EXAM [facility] Start: 1957 Diabetic foot examination Diabetic Foot Exam [facility] Start: 1957 Glaucoma screening Dilated Retinal Exam [facility] Start: 1957 Hepatitis B screening URINE ALBUMIN:CREATININE RATIO [facility] Start: 1957 Hepatitis C antibody, confirmatory test DILATED RETINAL EXAM [facility] Start: 01-18-1946 COVID-19 VACCINE (#1) COVID-19 VACCINE (#1) [facility] Start: 1947 ABDOMINAL AORTIC ANEURYSM SCREENING ABDOMINAL AORTIC ANEURYSM SCREENING [facility] Start: 1947 Glaucoma screening Diabetic Ophthalmology Exam [facility] Start: 1947 Medicare Annual Wellness (AWV) Medicare Annual Wellness (AWV) [facility] Start: 1947 Medicare Annual Wellness Visit Medicare Annual Wellness Visit [facility] Start: 1947 Tobacco Counseling Tobacco Counseling [facility] End: 11-12-2025 Basic metabolic 2000 panel - Serum or Plasma Basic Metabolic Panel Lab Routine CKD stage 3b, GFR 30-44 ml/min ([facility]) 1 Occurrences starting 11/12/2024 until 11/12/2025 [facility] Work Phone: Comment on above: 1 Occurrences starting 11/12/2024 until 11/12/2025 CARDIOPULMONARY REHABILITATION CARDIOPULMONARY REHABILITATION Cardiac Services Ordered: 07/17/2023 [facility] Comment on above: Ordered: 07/17/2023 CARDIOPULMONARY REHABILITATION CARDIOPULMONARY REHABILITATION Cardiac Services Ordered: 07/23/2023 [facility] Comment on above: Ordered: 07/23/2023 CARDIOPULMONARY REHABILITATION CARDIOPULMONARY REHABILITATION Cardiac Services Ordered: 07/24/2023 [facility] Comment on above: Ordered: 07/24/2023 CARDIOPULMONARY REHABILITATION CARDIOPULMONARY REHABILITATION Cardiac Services Ordered: 07/31/2023 [facility] Comment on above: Ordered: 07/31/2023 CARDIOPULMONARY REHABILITATION CARDIOPULMONARY REHABILITATION Cardiac Services Ordered: [...] LV GRAM/PRESS nstemi [facility] CARDIAC CATH LABS End: 11-12-2025 CBC panel - Blood by Automated count CBC without diff Lab Routine CKD stage 3b, GFR 30-44 ml/min ([facility]) 1 Occurrences starting 11/12/2024 until 11/12/2025 [employer] Comment on above: 1 Occurrences starting 11/12/2024 until 11/12/2025 CBC W Auto Different ial panel - Blood COMPLETE BLOOD COUNT AND DIFFERENTIAL Lab Routine CLL (chronic lymphocytic leukemia) (HCC) Anemia, unspecified type 07/09/2024 2:28 PM [facility] CBC W Auto Different ial panel - Blood COMPLETE BLOOD COUNT AND DIFFERENTIAL Lab Routine CLL (chronic lymphocytic leukemia) (HCC) 07/16/2024 2:29 PM [facility] Work Phone: Dermatopathology exam Dermatopat hology exam Pathology and Cytology Timed Neoplasm of unspecified behavior of bone, soft tissue, and skin Release Upon Ordering for 1 Occurrences starting 07/08/2024 [facility] [employer] Work Phone: Comment on above: Release Upon Ordering for 1 Occurrences starting 07/08/2024 End: 11-12-2025 Magnesium [Mass/volume] in Serum or Plasma Magnesium Lab Routine CKD stage 3b, GFR 30-44 ml/min ([facility]) 1 Occurrences starting 11/12/2024 until 11/12/2025 [employer] Comment on above: 1 Occurrences starting 11/12/2024 until 11/12/2025 End: 11-12-2025 Parathyroid Hormone, intact Parathyroid Hormone, intact Lab Routine CKD stage 3b, GFR 30-44 ml/min ([facility]) 1 Occurrences starting 11/12/2024 until 11/12/2025 [facility] Comment on above: 1 Occurrences starting 11/12/2024 until 11/12/2025 Patient Education Wound Care for Arterial Puncture (DC) Know your Meds [facility] Work Phone: Patient referral [facility] Work Phone: End: 11-12-2025 Phosphate [Mass/volume] in Serum or Plasma Phosphorus Lab Routine CKD stage 3b, GFR 30-44 ml/min ([facility]) 1 Occurrences starting 11/12/2024 until 11/12/[address] [facility] Comment on above: 1 Occurrences starting 11/12/2024 until 11/12/2025 End: 11-12-2025 Protein creat ratio Protein creat ratio Lab Routine CKD stage 3b, GFR 30-44 ml/min ([facility]) 1 Occurrences starting 11/12/2024 until 11/12/[address] [facility] Comment on above: 1 Occurrences starting 11/12/2024 until 11/12/2025 Pyridoxine [Mass/vol ume] in Serum or Plasma [facility] Renal function 2000 panel - Serum or Plasma [facility] End: 11-12-2025 Urinalysis Urinalysis Lab Routine CKD stage 3b, GFR 30-44 ml/min ([facility]) 1 Occurrences starting 11/12/2024 until 11/12/[address] [facility] Comment on above: 1 Occurrences starting 11/12/2024 until 11/12/2025 Urine culture [facility] US Kidney - bilateral [facility] End: 11-12-2025 Vitamin D 25 hydroxy Vitamin D 25 hydroxy Lab Routine CKD stage 3b, GFR 30-44 ml/min ([facility]) 1 Occurrences starting 11/12/2024 until 11/12/[address] [facility] Comment on above: 1 Occurrences starting 11/12/2024 until 11/12/2025 [facility] Immunizations Immunization Date Immunization Notes Care Provider Guilherme villeda 05-12-2024 Seasonal trivalent influenza vaccine, adjuvanted, preservative free Shaggy Arriaza PA-C Work Phone: [facility] 05-12-2024 influenza virus vaccine, unspecified formulation Patricia Alston LPN [facility] 08-02-2023 Influenza Vaccine, Quadrivalent, Adjuvanted Shahrzad Vineet [facility] 08-02-2023 influenza virus vaccine, unspecified formulation Jeromy Mejia MD Work Phone: [facility] 04-02-2022 influenza, high-dose , quadrivalent vaccine (FLUZONE HIGH DOSE QUADRIVALENT) Dipti Beckham MD Work Phone: [facility] 04-02-2022 influenza virus vaccine, unspecified formulation [facility] [address] [facility] 03-30-2020 influenza, high dose seasonal, preservative-free Dipti Beckham MD Work Phone: [facility] 04-01-2019 influenza, high dose seasonal, preservative-free Dipti Beckham MD Work Phone: [facility] 06-24-2018 pneumococcal conjuga te vaccine, 13 valent Dipti Beckham MD Work Phone: [facility] 05-13-2018 influenza, high dose seasonal, preservative-free Dipti Beckham MD Work Phone: [facility] 05-28-2017 influenza, injectabl e, quadrivalent, contains preservative Dipti Beckham MD Work Phone: [facility] Payers Date Payer Category Payer Self-pay [id number] 2022 Unknown AARP AARP [id number] 2022-Present [address] [place] [address] [id number]. [id number] 2021 Managed Care Other (unspecified) [facility] [id number]. [id number] 2021 Private Health Insurance [id number] .[id number]. 2.7.3.997818.315 2012 Medicare [id number]. 1.13.159. 2.7.3.161317.315 1959 Medicare [id number] 1959 Unknown [id number] 1947 Unknown [id number] 2.840.1.730377.3.579. 2.593 1947 Unknown [id number] 2.840.1.935035.3.579. 2.593 1947 Unknown [id number] 2.840.1.603147.3.579. 2.1286 1947 Unknown [id number] 2.16840.1.823359.3.579. 2.1286 1947 Unknown [id number] 2.840.1.073098.3.579. 2.1286 1947 Unknown [id number] 2.16840.1.685867.3.579. 2.1286 1947 Unknown [id number] 2.16.840.1.314274.3.579. 2.1286 1947 Unknown [id number] 2.16.840.1.464694.3.579. 2.1286 1947 Unknown [id number] 2.16.840.1.181845.3.579. 2.1286 1947 Unknown [id number] 2.16.840.1.882967.3.579. 2.1286 1947 Unknown [id number] 2.16.840.1.912275.3.579. 2.1286 1947 Unknown [id number] 2.16.840.1.447711.3.579. 2.1259 1947 Unknown [id number] 2.16.840.1.502147.3.579. 2.125 1947 Unknown [id number] 2.16.840.1.449271.3.579. 2.125 1947 Unknown [id number] 2.16.840.1.883768.3.579. 2.1258 1947 Unknown [id number] 2.16.840.1.535970.3.579. 2.1259 1947 Unknown [id number] 2.16.840.1.609311.3.579. 2.1259 1947 Unknown [id number] 2.16.840.1.792461.3.579. 2.1259 1947 Unknown [id number] 2.16.840.1.093539.3.579. 2.125 1947 Unknown [id number] 2.16.840.1.776581.3.579. 2.1259 1947 Unknown [id number] 2.16.840.1.487121.3.579. 2.1259 1947 Unknown [id number] 2.16.840.1.582063.3.579. 2.1259 Unknown [id number] Unknown [id number] 2.16840.1.650648.3.579. 2.531 Unknown [id number] 2.16840.1.916693.3.579. 2.531 Unknown [id number] 2.840.1.231756.3.579. 2.531 Unknown [id number] 2.16840.1.348034.3.579. 2.531 Worker's Comp, Other (unspecified) WORKER'S COMPENSATION 1.2.840.060473.1.13.424. 2.7.9.573485.301.315 Worker's Compensation [id number] Social History Date Type Detail Facility Tobacco smoking stat [facility] Unknown if ever smoked [facility] Start: 1945 Sex Assigned At Male [facility] Start: 07-21-1964 End: 04-26-2024 Tobacco smoking status NYIS Smokes tobacco daily [facility] Start: 07-21-1964 End: 07-21-2019 History of tobacco use Cigarette Smoker [facility] History of tobacco use Passive smoker [facility] Start: 06-18-2022 End: 02-26-2024 Tobacco use and exposure Smokeless tobacco non-user [facility] Start: 1945 Sex Assigned At Not on file [facility] Start: 06-21-2022 End: 02-08-2025 Tobacco smoking status NHIS Ex-smoker [facility] Start: 07-21-1964 End: 07-21-2019 History of tobacco use Current smoker [facility] Start: 06-21-2022 End: 07-09-2024 Alcohol intake Not Asked [facility] Start: 06-11-2022 End: 06-21-2022 Exposure to SARS-CoV-2 (event) Not sure [facility] Start: 01-16-2024 End: 04-25-2024 History of Social function [facility] Start: 01-16-2024 End: 04-25-2024 Tobacco use panel [facility] Adult Depression Screening Assessment 0 [facility] Start: 03-09-2024 End: 01-06-2025 Alcoholic beverage intake Current drinker of alcohol (finding) [facility] Do you belong to any clubs or organizations such as jehovah's witness groups, unions, fraternal or athletic groups, or school groups? Yes [facility] Are you now , , , , never or living with a partner? [facility] How often to you hav e a drink containing alcohol? Monthly or less [facility] How many standard dr inks containing alcohol do you have on a typical day? 1 or 2 [facility] How often do you hav e 6 or more drinks on 1 occasion? Never [facility] Do you feel stress - tense, restless, nervous, or anxious, or unable to sleep at night because your mind is troubled all the time - these days [OSQ] Not at all [facility] (I/We) worried wheth er (my/our) food would run out before (I/we) got money to buy more. Never true [facility] In the past 12 month s, was there a time when you were not able to pay the mortgage or rent on time? No [facility] Start: 07-21-2023 Alcohol Comment 1-2 drinks monthly or less, caffeine: coffee,soda 2-3 cups per day [facility] Start: 08-16-2024 Sex Patient sex unknown (finding) [facility] Start: 05-06-2022 Tobacco Comment 4-5 cigarettes per day [facility] Start: 08-07-2018 Alcohol Comment once a month [facility] Start: 04-27-2024 End: 05-05-2024 Alcoholic beverage intake Ex-drinker (finding) [facility] Start: 04-26-2024 Tobacco Comment 4-5 cigarettes per day or at least 1 pack a week [facility] Start: 04-26-2024 Alcohol Comment 1 drink a year at least [facility] Start: 02-23-2015 Sex Male (finding) [facility] Start: 04-26-2024 Gender identity Identifies as male gender (finding) [facility] Start: 04-26-2024 Sexual orientation Heterosexual (finding) 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 Srg - Sna - [id number] Start: 11-06-2021 System Cor Stnt 3.5mm X 23mm 145cm [employer] Adriano - [id number] ()[id number] FDA Start: 04-07-2023 System Cor Stnt 3.0mm X 18mm 145cm [employer] - [id number] ()[id number], [id number] FDA Start: 04-07-2023 System Cor Stnt 3.0mm X 18mm 145cm [employer] - [id number] ()[id number], [id number] FDA Start: 04-07-2023 System Cor Stnt 3.5mm X 28mm 145cm [employer] - [id number] ()[id number], [id number] FDA Start: 04-07-2023 System Cor Stnt 4.0mm X 12mm 145cm [employer] - [id number] ()[id number], [id number] FDA Start: 04-28-2024 Peripheral arter y stent, bare-metal ([id number] [facility] Start: 08-16-2024 Goals Date Patient Goal Desired Activity /State [...] discharge home self care with spouse support. Personal health goal Comment on above: Formatting of this n ote might be different from the original. Evaluation of progress towards goal: In progress: Return home with and outpatient f/u needed. Functional Status Date Assessment Result Facility 11-10-2024 Patient Health Quest ionnaire 2 item (PHQ-2) [Reported] [facility] Clinical Notes 06-21-2022 to 02-08-2025 Note Date & Type Note Facility 02-08-2025 Evaluation note Diagnosis Onset Date Resolution Anemia of renal disease acute J colette2024 1:35pm CHF (congestive heart failure) acute February 08, 2025 1:35pm Chronic kidney disease, stage 3b acute February 08, 2025 1:35pm Diabetic nephropathy associated with type 2 diabetes mellitus acute February 08 1:35pm Former smoker acute February 08, 2025 1:35pm Hypertensive nephropathy acute February 08, 2025 1:35pm Polyneuropathy acute February 11:18am Gait instability chronic February 192024 11:18am [facility] Work Phone: 1(525) 670-574107-22-2025 Evaluation note* Diagnosis Onset Date Resolution Status Admit Date Anemia of renal disease acute J colette 2024 1:35pm Chronic kidney disease, stag e 3b acute February 08, 2025 1:35pm 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 acute Ju ly 2024 1:35pm Former smoker acute February 08, 2025 1:35pm Hypertensive nephropathy acute February 08, 2025 1:35pm CHF (congestive heart failure) inact samantha February 08, 2025 1:35pm Polyneuropathy acute February 11:18am DDD (degenerative disc disease), lumbar chronic March 10 11:18am Gait instability chronic February 192024 11:18am Tremor chronic March 10 11:18am [facility] Work Phone: 1(599) 131-353306-19-2025 History of Present illness Narrative* Brad Wong MD - 01/06/2025 1:50 PM EDT Skin Check Location: Patient requests a skin examination from the waist up Dermatologic history: history of Actinic Keratosis, history of Squamous Cell Carcinoma Last visit: 6 months ago Established patient All pertinent medical history, medications, and allergies were reviewed. General Exam: alert, oriented to person, place, and time, normal affect, well appearing Unaccompanied A complete skin exam was offered, pt declined. Areas not examined despite medical recommendation: From the waist down Scalp, Examined , exam limited by hair Head, Face Examined , Exam limited by mustache Neck Examined Chest Examined Back Examined Abdomen Examined Right arm Examined Left arm Examined Hands Examined Digits,nails: Examined Lymphatics: Not examined Skin Exam 1. SEBORRHEIC KERATOSIS Generalized Stuck on verrucous, paige-brown papules and plaques. Patient was counseled regarding these benign growths. Removal is normally not necessary, but they may be removed if they are symptomatic or for cosmetic reasons. 2. ACTINIC KERATOSIS (6) Left Forehead, Mid Frontal Scalp, Mid Parietal Scalp, Right Superior [place], Right Anabaptist (2) Erythematous scaly papules Patient was counseled regarding these sun-induced growths that can develop into squamous cell carcinoma if left untreated. Discussed treatment with cryotherapy. It was emphasized that any treated lesions that fail to resolve should be re- evaluated. Cryotherapy performed today; see procedure note Diagnosis: Actinic keratosis Indication: Precancerous Location: see skin exam Consent: Verbal consent was obtained and risks were discussed, including, but not limited to risks of scarring, darker or catheterization laboratory technician pigmentary changes, recurrence, incomplete removal and infection. Method: Liquid nitrogen was used to treat the lesion(s) with two 5-10 second freeze-thaw cycles. Number of lesions treated: 6 Post-procedure instructions: Instructions were given orally and in writing. The office will be contacted if the lesion fails to resolve despite treatment, or if a side effect develops such as abnormal crusting, scabbing, redness or tenderness Cryotherapy, skin lesion - Left Forehead, Mid Frontal Scalp, Mid Parietal Scalp, Right [place], Right Anabaptist (2) 3. CAPILLARY ANGIOMA Torso - Posterior (Back) Scattered banegas-red papule(s). The patient was informed that angiomas are benign growths on the the skin. No treatment is necessary. 4. LENTIGINES Generalized Scattered paige macules in sun-exposed areas. The patient was informed that lentigines are benign pigmented lesions that occur on sun-exposed andsun-damaged skin. No treatment is necessary. Recommended regular use of broad spectrum sunscreen SPF 30 or higher 5. SOLAR PURPURA (2) Left Arm, Right Arm Scattered violaceous macules in sun exposed areas. Recommended regular sun protection. Can try OTC arnica cream if desired. Next Visit: 6 [id number] Chief Complaint: Patient here for a 6 month follow up. Patient states he is doing good cardiac [place], no complaints. Patient state he fell 3 times yesterday [place] on [place] and once while walking to the restroom. 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 HPI: Ila Morejon is a 79 y.o. male Past Medical History He has a past medical history of Carotid artery stenosis, Chronic kidney disease, Coronary artery disease, Diabetes mellitus (CMS/HCC), Hyperlipidemia, Hypertension, Myocardial infarction (CMS/HCC), and PAD (peripheral artery disease). Surgical History He has a past surgical history that includes Cardiac catheterization; Coronary stent placement; Cholecystectomy; Peripheral arterial stent graft; and Insert / replace / remove pacemaker. Social History He reports that he quit smoking about 60 years ago. His smoking use included cigarettes. He started smoking about 8 months ago. He has never used smokeless tobacco. He reports that he does not currently use alcohol. He reports that he does not use drugs. Family History No family history on file. Allergies Brilinta [ticagrelor] Review of Systems Musculoskeletal: Positive for arthritis, joint pain and muscle weakness (legs). Medications Current Outpatient Medications: amLODIPine (Norvasc) 10 mg tablet, Take 1 tablet by mouth in the morning., Disp: , Rfl: aspirin 81 mg EC tablet, Take 1 tablet (81 mg) by mouth in the morning. Change from chewables to safety coated 81mg daily, Disp: 90 tablet, Rfl: 3 bumetanide (Bumex) 1 mg tablet, Take 1 tablet (1 mg) by mouth in the morning., Disp: 90 tablet, Rfl: 3 carvedilol (Coreg) 3.125 mg tablet, Take 1 tablet (3.125 mg) by mouth two times daily., Disp: 60 tablet, Rfl: 5 cholecalciferol (Vitamin D-3) 25 MCG (1000 units) tablet, Take 2,000 Units by mouth in the morning., Disp: , Rfl: clopidogrel (Plavix) 75 mg tablet, Take 1 tablet (75 mg) by mouth in the morning., Disp: 90 tablet, Rfl: 3 coenzyme Q-10 100 mg capsule, Take 100 mg by mouth in the morning., Disp: , Rfl: gabapentin (Neurontin) 300 mg capsule, Take 300 mg by mouth three times daily., Disp: , Rfl: insulin glargine (Lantus) 100 unit/mL injection vial, Inject 52 Units under the skin in the morning., Disp: , Rfl: losartan (Cozaar) 100 mg tablet, Take 1 tablet (100 mg) by mouth once daily as directed., Disp: 90 tablet, Rfl: 3 magnesium 250 mg tablet, Take 1 tablet by mouth in the morning., Disp: , Rfl: metFORMIN (Glucophage) 500 mg tablet, Take 500 mg by mouth with breakfast., Disp: , Rfl: mv-min/folic/K1/lycopen/lutein (CENTRUM SILVER ULTRA MEN'S ORAL), Take 1 tablet by mouth in the morning., Disp: , Rfl: pantoprazole (ProtoNix) 40 mg EC tablet, Take 1 tablet (40 mg) by mouth two times daily. Do not crush, chew, or split., Disp: 60 tablet, Rfl: 11 potassium gluconate 595 mg (99 mg) tablet extended release, Take 595 mg by mouth in the morning., Disp: , Rfl: primidone (Mysoline) 50 mg tablet, Take 50 mg by mouth in the morning., Disp: , Rfl: rosuvastatin (Crestor) 40 mg tablet, Take 1 tablet (40 mg) by mouth in the evening., Disp: 90 tablet, Rfl: 3 Physical Examination: BP 136/61 (BP Location: Right arm, Patient Position: Sitting) Pulse 69 Ht 1.727 m (5' 8 ) Wt 78 kg (172 lb) SpO2 95% BMI 26.15 kg/m??? Constitutional: General Appearance: well-developed, appears stated age, and no apparent distress. Psychiatric: Mental Status: normal affect. Orientation: oriented to time, place, and person. Eyes: Lids and Conjunctivae: non-injected. ENMT: Nose: no lesions on external nose. Neck: Carotid Arteries: bilateral normal upstroke. Jugular Veins: normal jugular venous pressure. Lungs: Chest Exam: normal curvature. Auscultation: no wheezing, rales, or rhonchi. Cardiovascular: Heart Sounds: normal S1 and s2. Regular rate and rhythm. Systolic Murmur: not heard. Diastolic Murmur: not heard. Extremities: No edema, no tenderness. Peripheral Pulses: Pulses: full and equal in all extremities except if noted. Abdomen: Inspection and Palpation: non distended. Neurologic: Gait: normal gait. Skin: Inspection and Palpation: warm and dry. Nails: no clubbing. 06/11/2024 IMPRESSION: 1. Successful dual chamber pacemaker with excellent pacing and sensing parameters. RECOMMENDATIONS: 1. Occlusive dressing to be removed after 2 weeks. 2. Do not wet the incision for 7 days. 3. No lifting heavy weights using arm on the same side x 3weeks 4. Do not lift elbow above the shoulder on the same side for 4-6 weeks. 5. No driving for 1 month. 6. F/u in device clinic 1 week from discharge or sooner for any concerns. Adriano Martell M.D. [facility] [employer] Lure Assemblerwardrobe mistress and Pediatrics Director: Cardiac Electrophysiology Pro (more content not included)...[facility]04-29-2025 History of Present illness Narrative* Laura Sinha, TITI - 11/16/2024 10:40 AM EDT Images from the original note were not included. Chief Complaint Patient presents with Tremors Extremity Weakness Balance difficulty Subjective Ila Julianna Morejon is a 79 y.o. male. History of Present Illness The patient presents today for follow-up. He is accompanied by his . He would like to review BLE EMG results. The patient has completed physical therapy since the prior neurology appointment. He believes he completed 4 to 6 weeks of PT and states this improved his balance and lower extremity strength. He hashad 1 fall since the prior neurology appointment. This occurred around 3 weeks ago. He denies related injury, hitting his head, or loss of consciousness. He states he, overdid it, at therapy and fell afterward. He does not have dizziness, lightheadedness, or loss of consciousness and denies any significant imbalance since completing PT. The patient has intermittent low back pain which does not radiate to the buttock or lower extremities. He denies numbness, tingling, paresthesias, or pain in t he lower extremities. He denies saddle anesthesia or bowel or bladder dysfunction. He has diabetes but denies any history of significant alcohol use. The patient is left-hand dominant and has an intermittent action tremor of the bilateral hands. He remains on primidone 50 mg daily at bedtime and gabapentin 300 mg three times a day. He believes these are adequately controlling his tremor but admits he can spill things like drinks occasionally dueto his symptoms. He reports a positive family history of Parkinson's disease in his mother. He denies any further new concerns. Review of Systems Constitutional: Negative for appetite change, chills, fatigue, fever and unexpected weight change. HENT: Negative for trouble swallowing and voice change. Eyes: Negative for visual change, double vision or loss of vision Respiratory: Negative for cough, shortness of breath and wheezing. Cardiovascular: Negative for chest pain and palpitations. Gastrointestinal: Negative for abdominal pain, blood in stool, nausea and vomiting. Musculoskeletal: Positive for arthralgias, back pain and gait problem (minimal imbalance). Negativefor myalgias. Neurological: Positive for tremors and weakness (mild bilateral lower extremity). Negative for dizziness, seizures, syncope, facial asymmetry, speech difficulty, light-headedness, numbness and headaches. Psychiatric/Behavioral: Negative for confusion, hallucinations and suicidal ideas. The patient is not nervous/anxious. Past Medical History: Diagnosis Date Actinic keratosis Benign essential hypertension (CMS/HCC) Benign essential tremor CAD in [place] artery (CMS/HCC) Cataract chronic sleep disorder DM (diabetes mellitus) ([facility]) Edema of both legs Erectile dysfunction of organic origin GERD (gastroesophageal reflux disease) Hernia 10/2021 Hypercholesterolemia ([facility]) Left inguinal hernia Leukocytosis Microalbuminuria Myocardial infarction ([facility]) EMMA (obstructive sleep apnea) Osteoarthritis Overweight PVD (peripheral vascular disease) ([facility]) Sleep disorder 10/2021 Squamous cell carcinoma in situ 02/21/2022 SCC in situ, left jawline, Mohs Squamous cell carcinoma in situ (SCCIS) Squamous cell skin cancer Tobacco abuse Type 2 diabetes mellitus with hyperglycemia, with long-term current use of insulin ([facility]) URI, acute 07/01/2023 Vitamin D deficiency Past Surgical History: Procedure Laterality Date COLONOSCOPY 06/2009 CORONARY STENT PLACEMENT 2013 HEART CATH 11/2015 HERNIA REPAIR Left Inguinal hernia repair OTHER SURGICAL HISTORY 2014 stent placement (abd) SKIN BIOPSY 10/2015 (Left side of neck) Family History Problem Relation Name Age of Onset Diabetes Mother Dana Morejon Cancer Father Fartun morejon Diabetes Father Fartun morejon Melanoma Neg Hx Social History Tobacco Use Smoking status: Former Types: Cigarettes Start date: 2015 Quit date: 1965 Years since quittin.3 Smokeless tobacco: Never Substance Use Topics Alcohol use: Yes Comment: 1-2 drinks monthly or less, caffeine: coffee,soda 2-3 cups per day Allergies: Ticagrelor Vitals: 11/16/24 1016 BP: 126/72 Pulse: 65 SpO2: 91% Body mass index is 26.15 kg/m . Weight: 172 lb Neurologic exam: Mental status and general appearance: Awake and alert with unlabored respirations. Oriented to person, place, and time. Recent and remotememory are intact. Speech is clear and fluent without aphasia. Speech is non-dysarthric. Attention and concentration are normal. Fund of knowledge is appropriate for level of education. Pleasant. Cranial nerves: CN II: Visual acuity is normal. Visual mills full to confrontation. CN III, IV, : Pupils are equal, round, and reactive to light. Extraocular movements intact. No ptosis present on the left. Mild ptosis of the right upper eyelid (patient states this is chronic and unchanged). CN V: Facial sensation is normal. CN VII: Full and symmetric facial movement. CN VIII: Hearing is normal to finger rub bilaterally. CN IX and X: Palate elevates symmetrically. CN XI: Shoulder shrug is normal bilaterally. CN XII: Tongue is midline without atrophy or fasciculation. Motor: RUE strength deltoid , biceps , triceps , wrist extensors , wrist flexor , and embedded software design engineer strength 5/5. LUE strength deltoid , biceps , triceps , wrist extensors , wrist flexor , and embedded software design engineer strength 5/5. RLE strength iliopsoas, quadriceps, tibialis anterior, and plantar flexion strength 5/5. LLE strength iliopsoas, quadriceps, tibialis anterior, and plantar flexion strength 5/5. Tone and bulk are normal. No rigidity. No rest tremor observed. Mild postural and intention tremor of the bilateral hands. Sensory: Sensation is intact to light touch throughout all four extremities. Vibratory sensation is intact in the distal lower extremities. Pinprick sensation is only mildly impaired in the bilateral feet. Proprioception is intact in the great toes bilaterally. Reflexes: RUE biceps reflex 1+ , brachioradialis reflex 1+. LUE biceps reflex 1+ , brachioradialis reflex 1+. RLE knee reflex 0. LLE knee reflex 0. Coordination: [id number] testing normal. Rapid alternating movements mild bradykinesia. May be an arthritic component. Gait: Steady. Review and summary of old records: EMG of the bilateral lower extremities at [facility] on 09/16/2024: A generalized process such as polyneuropathy which is axonal loss and type and severe in degree electrically. Cannot exclude a superimposed radicular process based on this EDX evaluation. Orthostatic vital signs at [facility] on 09/08/2024: Did not meet criteria for orthostatic hypotension from a numeric perspective, however, the patient was symptomatic and reported feeling like the room was spinning when he transition from laying to sitting. CT of the brain without contrast on 06/12/2024: No acute intracranial abnormality. MRI of the lumbar spine on 03/23/2024 without contrast: 1. Normal alignment. No acute compression fracture. 2. At L4-L5, there is severe degenerative disc disease most severe on the left side of the disc space. Disc space narrowing and left foraminal osteophyte results in severe left foraminal narrowing. Mild spinal canal stenosis. 3. Moderate right neural foraminal narrowing at L3-L4. Ferritin level on 07/09/2024: Mildly reduced at 31.5. TSH on 07/10/2024: Normal. Vitamin B12 on 07/09/24: normal at 1243. Assessment/Plan Diagnoses and all orders for this visit: Gait instability Mr. Morejon is a 79-year-old male who reports chronic gait instability. I believe this is likely multifactorial and due, in part, to DDD of the lumbar spine and polyneuropathy. CT of the brain on 06/12/2024 did not identify any acute intracranial pathology that would explain the patient's symptoms. Though, records of this imaging are currently unavailable to me for review. MRI of the brain was unable to be obtained due to the presence of AICD. MRI of the lumbar spine on 03/23/2024 did reveal severe degenerative disc disease at L4-L5 with severe left foraminal narrowing and mild canal stenosis at that level. There was also moderate right foraminal narrowing at L3-L4. Clinical exam does not reveal dysmetria, pathologic hyperreflexia, extremity weakness, or upper extremity sensory disturbanceto suggest a cervical myelopathy. The patient completed physical therapy in early 2024 and reports significant improvement in his balance since that time. PLAN: - Continue at home physical therapy exercises - Fall prevention measures discussed - I recommended the use of an assistive device when ambulating for longer distances to help improvestability and reduce fall risk. states the patient does have a seated walker at home in case of need Degeneration of intervertebral disc of lumbar region with discogenic back pain See above. PLAN: - Continue at home physical therapy exercises Polyneuropathy See above. BLE EMG on 09/16/2024 revealed severe, axonal loss polyneuropathy. I believe this is likely secondary to the patient's longstanding history of diabetes. Hemoglobin A1c on 11/10/2024 was 8.1%. Proprioception is intact on clinical exam, but pinprick sensation is mildly reduced in the bilateral feet. PLAN: - I reviewed EMG results with the patient and his . I educated them on polyneuropathy and its association with diabetes - I have advised the patient to follow up closely with his primary care provider for adequate bloodglucose control to prevent further nerve damage - Check feet regularly for wounds Tremor The patient has a tremor which I believe fits most closely with essential tremor. He is 79 years old, so certainly, he has some mild slowness of movement. However, there is no rest tremor or rigiditynoted on clinical exam to suggest parkinsonism. He believes his tremor is well managed on [id number] mg PO QHS and gabapentin 300 mg PO TID (managed by PCP). It is not causing him any significant functional disability per his report. PLAN: - Okay to continue primidone and gabapentin - Monitor for development of parkinsonism in the future. Reportedly, the patient's mother did have Parkinson's disease. Again, I do not believe he meets criteria for this currently Paroxysmal atrial fibrillation (CMS/HCC) AICD (automatic cardioverter/defibrillator) present The patient has an extensive cardiac history, and it is possible that cardiac arrhythmia, hypotension, and other cardiovascular conditions could contribute to dizziness and increase his fall risk moving forward. He denies dizziness recently but has reported this in the past. PLAN: - Follow up closely with cardiology for management of atrial fibrillation and cardiac conditions, blood pressure No driving for now. Will refer the patient to [facility] for formal driving evaluation to help determine whether he is safe to operate a motor vehicle. Diagnosis and treatment options discussed in detail. All questions answered. The patient verbalizesunderstanding and is agreeable to the plan. Discussion in layman's terms. Follow up in the office within 3 to 4 months; sooner if needed for new or worsening symptoms. Laura Sinha NP [facility] documented in this [facility]04-29-2025 Instructions* Patient Instructions* Laura Sinha NP - 11/16/2024 10:40 AM EDT - Referral for driving evaluation documented in this [facility]04-23-2025 History of Present illness Narrative* Cruzito Mcgrath MD - 11/10/2024 11:23 AM EDTAssociated Problem(s): Medicare annual wellness visit, subsequent Due for labs. Discussed proper diet and regular aerobic exercise. Need aerobic exercise 5-6 days a week for 30 minutes at a time. Smaller portions and limit total calories. Tetanus every 10 years. Advised not to smoke. * Cruzito Mcgrath MD - 11/10/2024 11:22 AM EDTAssociated Problem(s): Paroxysmal atrial fibrillation ([facility]/HCC) In NSR and continue medication. * Cruzito Mcgrath MD - 11/10/2024 11:22 AM EDTAssociated Problem(s): PAD (peripheral artery disease) ([facility]/HCC) Follow with vascular. * Cruzito Mcgrath MD - 11/10/2024 11:22 AM EDTAssociated Problem(s): CKD stage 3b, GFR 30-44 ml/min ([facility]) Referred to nephrology. * Cruzito Mcgrath MD - 11/10/2024 11:22 AM EDTAssociated Problem(s): CLL (chronic lymphocytic leukemia) ([facility]) Follow with oncology * Cruzito Mcgrath MD - 11/10/2024 11:21 AM EDTAssociated Problem(s): Chronic heart failure with preserved ejection fraction (HFpEF) ([facility]) Edema stable and continue medication. Elevate legs PRN. * Cruzito Mcgrath MD - 11/10/2024 10:30 AM EDT Images from the original note were not included. Subjective Patient ID: Ila Morejon is a 79 y.o. male who presents for Medicare Annual Wellness Visit Subsequent (wellness). Presents for medicare annual wellness visit. Patient stable today. Not very active and having hard time moving. Continues to have back pain and neuropathy. Balance off and falling. Tries to watch diet and eat healthy. Increased fruits and vegetables. Smaller portions and limits snacking. Tries to limit total daily calories. Due for labs. Review of Systems Constitutional: Negative for fatigue. [...] There is no guarding or rebound. Musculoskeletal: General: Normal range of motion. Left lower leg: No edema. Neurological: General: No focal deficit present. Mental Status: He is alert. Cranial Nerves: No cranial nerve deficit. Deep Tendon Reflexes: Reflexes normal. Assessment/Plan Problem List Items Addressed This Visit CLL (chronic lymphocytic leukemia) ([facility]) Follow with oncology PAD (peripheral artery disease) ([facility]) (Chronic) Follow with vascular. CKD stage 3b, GFR 30-44 ml/min ([facility]) Referred to nephrology. Type 2 diabetes mellitus with hyperglycemia, with long-term current use of insulin ([facility]) Relevant Orders Hemoglobin A1c Chronic heart failure with preserved ejection fraction (HFpEF) ([facility]) Edema stable and continue medication. Elevate legs PRN. Paroxysmal atrial fibrillation ([facility]) In NSR and continue medication. Medicare annual wellness visit, subsequent - Primary Due for labs. Discussed proper diet and regular aerobic exercise. Need aerobic exercise 5-6 days a week for 30 minutes at a time. Smaller portions and limit total calories. Tetanus every 10 years. Advised not to smoke. documented in this encounterSoutheast [facility] [id number] Miscellaneous Notes* Telephone Encounter - Patricia Alston LPN - 10/27/2024 11:10 AM EDT Patient Sabrina called and left a voicemail stating she was calling to get patient scheduled forfollow up * Telephone Encounter - Jeimy Teixeira CMA - 10/27/2024 11:10 AM EDT I left a voicemail to schedule patient a follow up [facility] Tele[facility] encounter Note* Telephone Encounter - Patricia Alston LPN - 10/27/2024 11:10 AM EDT Patient Sabrina called and left a voicemail stating she was calling to get patient scheduled forfollow up [facility]04-09-2025 Telephone encounter Note* Telephone Encounter - Jeimy Teixeira CMA - 10/27/2024 11:10 AM EDT I left a voicemail to schedule patient a follow up [facility]04-09-2025 Telephone encounter Note* Telephone Encounter - Gabbie Kincaid - 10/27/2024 10:26 AM EDT Records faxed to Dr. Rinaldi. [facility]04-09-2025 Miscellaneous Notes* [facility] - 10/27/2024 10:26 AM EDT Records faxed to Dr. Rinaldi. * Telephone Encounter - Shasha Pulido - 10/27/2024 9:58 AM EDT Joi: Information ready for you. Shasha Box * Telephone Encounter - Gladys Benjamin - 10/27/2024 9:11 AM EDT Per love, patient has been scheduled for 11/04. Thanks! Gladys Benjamin * Telephone Encounter - Marleen Drake RN - 10/26/2024 3:36 PM EDT Pt aware and agreeable to plan of care. He will await call to schedule IV Iron, as ordered. He sees nephrology: someone, but doesn't remember the name. Called Dr Alcazar/[facility] office, pt has not been seen by their providers. Called Nephrology group, Ra, he does not see that office either. Called pt PCP, Dr Mcgrath, spoke with Ita. Referral sent [address] Latasha Head, [phone]. She is unable to see if pt was ever seen by them. Called Dr Head office, Labs faxed to Dr Mcgrath for review and management. Dr Rinaldi had seen pt, as inpatient 04/29/24. Attempted to call for follow up, but never responded and has not been seen since. Requesting new referral to be sent with medical records/recent labs. aware and updated, will call for appt, and let staff know the new referral will be sent. JR: please sign pended referral Joi/Italo: Please send to Dr Rinaldi, * Telephone Encounter - Raegan Arteaga APRN.VIDHYA - 10/26/2024 3:27 PM EDT Marlo, patient does need a iron, his Hgb is low and TIBC is high. I placed and signed order. When you call him could you please ask who manages his CKD? Thanks so much! * Telephone Encounter - Marleen Drake RN - 10/26/2024 8:00 AM EDT Raegan: Need for IV Iron? Any further recommendations? Does pt see nephrology to send recent renal function? Marleen Drake RN * Telephone Encounter - Marleen Drake RN - 10/25/2024 3:53 PM EDT Images from the original note were not included. Raegan Arteaga APRN.[employer] Marleen Drake RN Hello, can we please keep a lookout for his iron studies in the next few days. Thanks so much!! documented in this [facility] Telephone encounter Note * Telephone Encounter - Shasha Pulido - 10/27/2024 9:58 AM EDT Joi: Information ready for you. Shasha Box [facility]04-09-2025 Telephone encounter Note* Telephone Encounter - Gladys Benjamin - 10/27/2024 9:11 AM EDT Per love, patient has been scheduled for 11/04. Thanks! Gladys Benjamin [facility]04-09-2025 Evaluation note* Diagnosis Stage 3 chronic kidney disease, unspecified whether stage 3a or 3b CKD (HCC)- Primary documented in this encounter [facility]04-08-2025 Telephone encounter Note* Telephone Encounter - Marleen Drake, RICARDO - 10/26/2024 3:36 PM EDT Pt aware and agreeable to plan of care. He will await call to schedule IV Iron, as ordered. He sees nephrology: someone, but doesn't remember the name. Called Dr Alcazar/[facility] office, pt has not been seen by their providers. Called Nephrology group, Ra, he does not see that office either. Called pt PCP, Dr Mcgrath, spoke with Ita. Referral sent [address] Latasha Head, [phone]. She is unable to see if pt was ever seen by them. Called Dr Head office, Labs faxed to Dr Mcgrath for review and management. Dr Rinaldi had seen pt, as inpatient 04/29/24. Attempted to call for follow up, but never responded and has not been seen since. Requesting new referral to be sent with medical records/recent labs. aware and updated, will call for appt, and let staff know the new referral will be sent. JR: please sign pended referral Joi/Italo: Please send to Dr Rinaldi, [facility]04-08-2025 Telephone encounter Note* Telephone Encounter - Raegan Arteaga APRN.VIDHYA - 10/26/2024 3:27 PM EDT Hello, patient does need a iron, his Hgb is low and TIBC is high. I placed and signed order. When you call him could you please ask who manages his CKD? Thanks so much! [facility]04-08-2025 Telephone encounter Note* Telephone Encounter - Marleen Drake RN - 10/26/2024 8:00 AM EDT Raegan: Need for IV Iron? Any further recommendations? Does pt see nephrology to send recent renal function? Marleen Drake RN [facility]04-07-2025 Telephone encounter Note* Telephone Encounter - Marleen Drake RN - 10/25/2024 3:53 PM EDT Images from the original note were not included. Raegan Arteaga APRN.Marleen Nunez, RN [facility], can we please keep a lookout for his iron studies in the next few days. Thanks so much!! [facility]04-07-2025 NoteHNO ID: [id number] Author: RAEGAN ARTEAGA APRN.CNP Service: ? Author Type: Nurse Practitioner Type: Progress Notes Filed: 10/25/2024 15:51 Note Text: NAME: Ila Morejon CLINIC NO.: [id number] DATE OF SERVICE: October 25, 2024 ([place]) Some elements in this clinic note that are critical to medical decision making have been carefully reviewed and included from a prior clinic note dated: July 16, 2024 ([place]) Referring Provider: Cruzito Mcgrath Additional Clinicians involved in Ila Bob's care: DIAGNOSIS: lymphocytosis ASSESSMENT: 79 year old man with DM HTN, PVD presenting with lymphocytosis and diagnosed with CLL early June 2022. 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 He has new anemia, likely secondary to his recent diagnosis of GI bleed and gastritis, duodenitis found on EGD.Will do complete anemia work up today. He does not have any significant change in his WBC or exam findings to indicate this is CLL related. I will also offer him a transfusion of 1 unit of PRBCs because of his cardiac history and he is symptomatic. He will follow up in 1 week. CKD- mild and stable Gastritis/duodenitis--continue protonix per GI Afib now with pacemaker--on plavix and EC aspirin. Off eliquis since GI bleed DM2-advised patient his glucose level Is >300 and to follow up with PCP PLAN: Continue protonix, plavix, EC aspirin Stay off Eliquis Follow up with PCP for DM control RV in 6 months with labs one week prior. HPI: CASE HISTORY: Reverse Chronological Order 04/04/2023 - Admitted to [facility] with NSTEMI Underwent placement of drug eluting [...] CBC 18.8>14.0/39.7<185 Abs. Lymph: 10.1 Updated Visit, October 25, 2024: Alexis returns today with his Sabrina, for a follow-up. Overall feeling well. Continues to have fatigue. denies fevers, chills, early satiety, weight loss, lymph nodes or pain or night sweats. Denies any chest pain or shortness of breath. Iron studies pending, will call with results and follow up accordingly. Hgb 9.6 today. Updated Visit, July 16, 2024: Ial returns with his today Sabrina. Still on Plavix and EC aspirin. No blood in stool or urine. Feeling very fatigued and sleeing a lot. Hgb today is up to 8.7. Currently undergoing PT for weakness in legs. He denies fevers, chills, early satiety, weight loss, lymph nodes or pain or night sweats. Denies any chest pain or shortness of breath. Updated Visit, July 09, 2024: Ila returns for 6 month follow up. Was hospitalized 06/09-06/13 for GI bleed and pacemaker placement. Had preadmission testing for pacemaker placement and found to have a heomoglobin of 7.8. He had been started on eliquis a month prior for afib and was also on aspirin. EGD done showed gastritis and duodenitis. He has stopped eliquis and changed to EC aspirin. He is still on plavix, however. He is also taking protonix. He was also having issues with swelling and is on bumex 1mg now which is helping.He reports that has stools have returned to a normal color and he has not noticed any bleeding. He denies fevers, chills, early satiety, weight loss, lymph nodes or pain or night sweats. He reports that he feels weak and dizzy is he stands up too fast. Denies any chest pain or shortness of breath. Updated Visit, January 16, 2024: Ila returns [...] Has been sleeping more, especially since the CA. Updated Visit, December 27, 2022: 11 year anniversary today - going to dinner with his Sabrina. Overall he is doing very well. He has no progression on CLL or B symptoms that would suggest he needs intervention. No evidence of T-cell LGL clone is worsening. Updated Visit, June 27 (more content not included)...[facility]04-07-2025 History of Present illness Narrative* ChandlerEdwardRaeganSATURNINO.ARMATURE AND ROTOR WINDER - 10/25/2024 10:52 AM EDT Images from the original note were not included. NAME: Ila Morejon CLINIC NO.: [id number] DATE OF SERVICE: October 25, 2024 (Chandler) Some elements in this clinic note that are critical to medical decision making have been carefully reviewed and included from a prior clinic note dated: July 16, 2024 (Chandler) Referring Provider: Cruzito Mcgrath Additional Clinicians involved in Ila Morejon's care: DIAGNOSIS: lymphocytosis ASSESSMENT: 79 year old man with DM HTN, PVD presenting with lymphocytosis and diagnosed with CLL early June 2022. 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 He has new anemia, likely secondary to his recent diagnosis of GI bleed and gastritis, duodenitis found on EGD.Will do complete anemia work up today. He does not have any significant change in his WBC or exam findings to indicatethis is CLL related. I will also offer him a transfusion of 1 unit of PRBCs because of his cardiac history and he is symptomatic. He will follow up in 1 week. CKD- mild and stable Gastritis/duodenitis--continue protonix per GI Afib now with pacemaker--on plavix and EC aspirin. Off eliquis since GI bleed DM2-advised patient his glucose level Is >300 and to follow up with PCP PLAN: Continue protonix, plavix, EC aspirin Stay off Eliquis Follow up with PCP for DM control RV in 6 months with labs one week prior. HPI: CASE HISTORY: Reverse Chronological Order 04/04/2023 - Admitted to [facility] with NSTEMI Underwent placement of drug eluting [...] CBC 18.8>14.0/39.7<185 Abs. Lymph: 10.1 Updated Visit, October 25, 2024: Alexis returns today with his Sabrina, for a follow-up. Overall feeling well. Continues to have fatigue. denies fevers, chills, early satiety, weight loss, lymph nodes or pain or night sweats. Deniesany chest pain or shortness of breath. Iron studies pending, will call with results and follow up accordingly. Hgb 9.6 today. Updated Visit, July 16, 2024: Ila returns with his today Sabrina. Still on Plavix and EC aspirin. No blood in stool or urine. Feeling very fatigued and sleeing a lot. Hgb today is up to 8.7. Currently undergoing PT for weakness in legs. He denies fevers, chills, early satiety, weight loss, lymph nodes or pain or night sweats. Denies any chest pain or shortness of breath. Updated Visit, July 09, 2024: Ila returns for 6 month follow up. Was hospitalized 06/09-06/13 for GI bleed and pacemaker placement. Had preadmission testing for pacemaker placement and found to have a heomoglobin of 7.8. He had been started on eliquis a month prior for afib and was also on aspirin. EGD done showed gastritis and duodenitis. He has stopped eliquis and changed to EC aspirin. He is still on plavix, however. Heis also taking protonix. He was also having issues with swelling and is on bumex 1mg now which is helping.He reports that has stools have returned to a normal color and he has not noticed any bleeding. He denies fevers, chills, early satiety, weight loss, lymph nodes or pain or night sweats. He reports that he feels weak and dizzy is he stands up too fast. Denies any chest pain or shortness of breath. Updated Visit, January 16, 2024: Ila returns [...] attack. We will continue to monitor this, buthe does not need to start PO iron at this time. His WBCs are not as elevated as they were previously. He denies any B symptoms. Has been sleeping more, especially since the CA. Updated Visit, December 27, 2022: 11 year [...] and his Sabrina. We discussed results from laboratoriesobtained at his last visit. Findings were consistent [...] of CLL as his presumptive diagnosis. We alsodiscussed the classic time course of this disease process as well as potential treatments. REVIEW OF SYSTEMS Per HPI and otherwise negative by full review of organ systems. ECOG PERFORMANCE STATUS: 0 PHYSICAL EXAMINATION: Vitals: BP 126/65 Pulse 78 Temp (Src) 97.3 (Temporal) Resp 16 Wt 173 lb 8 oz (78.7kg) SpO2 94% Body surface area is 1.94 meters squared. General: Alert and oriented, no distress, pleasant and cooperative. Heart: Regular, normal S1 and S2, no murmurs, rubs, or gallops, pacemaker left chest wall Lungs: Clear to auscultation bilaterally Abdomen: Benign, no HSM palpable Extremities: Feet/ankles without edema, posterior tibial pulses full and symmetrical Lymph: no cervical, SC or axillary nodes on exam ALLERGIES: ALLERGIES No Known Allergies MEDICATIONS: resveratroL 250 mg cap Take 2 capsules by mouth once daily. Magnesium 250 mg tab Take 1 tablet by mouth every morning. glipiZIDE (GLUCOTROL) 10 mg tablet Take 10 mg by mouth once daily. bumetanide (BUMEX) 1 mg tablet Take 1 mg by mouth. therapeutic multivitamin-minerals (THERA-M PLUS) 9 mg iron-400 mcg tablet Take 1 tablet by mouth every morning. pantoprazole DR (PROTONIX) 40 mg tablet Take 40 mg by mouth once daily. losartan (COZAAR) 50 mg tablet Take 50 mg by mouth once daily. primidone (MYSOLINE) 50 mg tablet Take 50 mg by mouth daily at bedtime. potassium gluconate 595 mg (99 mg) TbER Take 595 mg by mouth. metFORMIN (GLUCOPHAGE) 500 mg tablet Take 500 mg by mouth daily with breakfast. rosuvastatin (CRESTOR) 20 mg tablet Take 20 [...] 100 unit/mL injection Inject subcutaneously as directed. carvedilol (COREG) 6.25 mg tablet Take 3.125 mg by mouth two times a day with meals. clopidogrel (PLAVIX) 75 mg tablet Take 75 mg by mouth once daily. Zinc 50 mg tab Take 50 mg by mouth once daily. pravastatin (PRAVACHOL) 20 mg tablet Take 20 mg by mouth once daily. LABORATORY VALUES: WBC (k/uL) Date Value 10/25/2024 15.14 (H) RBC (m/uL) Date Value 10/25/2024 3.24 (L) Hemoglobin (g/dL) Date Value 10/25/2024 9.6 (L) Hematocrit (%) Date Value 10/25/2024 28.6 (L) MCV (fL) Date Value 10/25/2024 88.3 MCH (pg) Date Value 10/25/2024 29.6 MCHC (g/dL) Date Value 10/25/2024 33.6 RDW-CV (%) Date Value 10/25/2024 13.5 Platelet Count (k/uL) Date Value 10/25/2024 154 MPV (fL) Date Value 10/25/2024 10.1 Glucose (mg/dL) Date Value 10/25/2024 228 (H) BUN (mg/dL) Date Value 10/25/2024 40 (H) Creatinine (mg/dL) Date Value 10/25/2024 1.83 (H) Sodium (mmol/L) Date Value 10/25/2024 136 Potassium (mmol/L) Date Value 10/25/2024 4.8 Chloride (mmol/L) Date Value 10/25/2024 99 CO2 (mmol/L) Date Value 10/25/2024 26 Protein, Total (g/dL) Date Value 10/25/2024 6.6 Albumin (g/dL) Date Value 10/25/2024 4.4 Calcium, Total (mg/dL) Date Value 10/25/2024 9.6 Alkaline Phosphatase (U/L) Date Value 10/25/2024 93 Bilirubin, Total (mg/dL) Date Value 10/25/2024 0.4 AST (U/L) Date Value 10/25/2024 14 ALT (U/L) Date Value 10/25/2024 11 DIAGNOSIS: (C91.10) CLL (chronic lymphocytic leukemia) (HCC) (primary encounter diagnosis) (D50.8) Other iron deficiency anemia (R53.81, R53.83) Malaise and fatigue PAST MEDICAL HISTORY Diagnosis Date CAD (coronary artery disease) Diabetes mellitus (HCC) Dyslipidemia Heart attack (HCC) History of recent blood transfusion Hx of heart artery stent Hypertension Inguinal hernia Left Leukocytosis Pacemaker Peripheral vascular disease (HCC) Vitamin D deficiency PAST SURGICAL HISTORY Procedure Laterality Date ANESTH,PACEMAKER INSERTION HERNIA REPAIR HX PAST SURGICAL HISTORY OF Cardiac stent x4 Social History Tobacco Use Smoking status: Former Types: Cigarettes Passive exposure: Past Smokeless tobacco: Never FAMILY HISTORY Problem Relation Age of Onset Diabetes Mother Cancer Father Diabetes Father I spent a total of 30 minutes on the date of the service which included preparing to see the patient, [id number] patient care, completing clinical documentation, obtaining and/or reviewing separately obtained history, performing a medically appropriate examination, counseling and educating the pat ient/family/caregiver, ordering medications, tests, or procedures, communicating with other HCPs (not separately reported), independently interpreting results (not separately reported), communicatingresults to the patient/family/caregiver, and care coordination (not separately reported). . Raegan Arteaga APRN, EDUCATION PROGRAM COORDINATOR-C, [facility] Provided at: [place], [place] CC: Cruzito Mcgrath MD ([facility]) [address] [address] documented [facility] Telephone encounter Note * Telephone Encounter - Izabella Gunter MA - 10/21/2024 4:04 PM EDT Patient has an appt on 10/25/24. Would you like labs, if so place orders (labs in computer are for December). Izabella Gunter MA [facility]04-03-2025 Miscellaneous Notes* Telephone Encounter - Izabella Yeboah MA - 10/21/2024 4:04 PM EDT Patient has an appt on 10/25/24. Would you like labs, if so place orders (labs in computer are for December). Izabella Gunter MA documented in this [facility]-27-[facility] History of Present illness Narrative* Zahraa Cristobal DO - 09/16/2024 11:30 AM EST Images from the original note were not included. Reason for Appointment: EMG Patient: Ila Morejon : 1945 EMG Computer: [employer] 1 Referring Physician: Dr. 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 Hx of DM. Taking Plavix & ASA. Comments: Procedure was explained to the patient who expressed understanding. Patient appeared to have tolerated the test well despite some discomfort due to the nature of the test. documented in this encounterSoutheast Missouri Community Treatment [id number] History of Present illness Narrative* Zahraa Cristobal DO - 09/08/2024 2:30 PM EST Images from the original note were not included. Chief Complaint: tremor and leg weakness Subjective Ila Morejon, 79 y.o., male Patient presents today for a neurologic consult at the request of Dr. Mcgrath for tremor. He is accompanied by his . Patient states he is on primidone for his tremor currently which has been veryhelpful. He has had the tremor for over one year. This is in bilateral hands. He did notice a difference in handwriting. He reports generalized weakness since about February. He admits to difficulty lifting his legs. His states when he walks his body goes but his feet do not keep up. They admit to some shuffling. He has had 5 falls in the last 4-5 months. His last fall was yesterday. 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 He admits to dizziness before the falls. He was diagnosed with l eukemia one year ago but has not needed treatment yet they state. Review of Systems Constitutional: Negative for appetite change, fatigue and fever. Respiratory: Negative for cough, shortness of breath and wheezing. Cardiovascular: Negative for chest pain, palpitations and leg swelling. Gastrointestinal: Negative for abdominal pain, constipation, diarrhea and nausea. Musculoskeletal: Positive for gait problem. Negative for arthralgias and myalgias. Neurological: Positive for tremors and weakness. Negative for dizziness, numbness and headaches. Past Medical History: Diagnosis Date Actinic keratosis Benign essential hypertension (CMS/HCC) Benign essential tremor CAD in 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) Squamous cell skin cancer Tobacco abuse Type 2 diabetes mellitus with hyperglycemia, with long-term current use of insulin ([facility]) URI, acute 07/01/2023 Vitamin D deficiency Past Surgical History: Procedure Laterality Date COLONOSCOPY 06/2009 CORONARY STENT PLACEMENT 2013 HEART CATH 11/2015 HERNIA REPAIR Left Inguinal hernia repair OTHER SURGICAL HISTORY 2013 stent placement (abd) SKIN BIOPSY 10/2015 (Left side of neck) Family History Problem Relation Name Age of Onset Diabetes Mother Cancer Father Diabetes Father Melanoma Neg Hx Social History Tobacco Use Smoking status: Former Types: Cigarettes Start date: 2015 Quit date: 1965 Years since quittin.1 Smokeless tobacco: Never Substance Use Topics Alcohol use: Yes Comment: 1-2 drinks monthly or less, caffeine: coffee,soda 2-3 cups per day Allergies: Patient has no known allergies. Vitals: 09/08/24 1420 BP: 92/58 Pulse: 60 SpO2: 94% Body mass index is 26.21 kg/m . weight: 172 lb 6.4 oz Neurologic exam: Mental status: Awake, alert to person, place and time. Recent and remote memory are intact. Language is fluent without aphasia. Attention and concentration are normal. Fund of knowledge is appropriate for level of education. Cranial nerves: CN II: Visual acuity is normal. Visual mills full to confrontation. CN III, IV, : pupils equal round and reactive to light. Extraocular movements intact. No ptosis present. CN V: Facial sensation is normal. CN VII: Full and symmetric facial movement. CN VIII: Hearing is normal to finger rub bilaterally: CN IX and X: Palate elevates symmetrically. CN XI: Shoulder shrug is normal bilaterally. CN XII: Tongue is midline without atrophy or fasciculation. Motor: RUE Strength deltoid, , biceps , triceps , wrist extensors , wrist flexor , embedded software design engineer strength 5/5. LUE Strength deltoid , biceps , triceps , wrist extensors , wrist flexor , embedded software design engineer strength 5/5. RLE Strength illopsoas, quadriceps, tibialis anterior, and gastrocnemius strength 5/5. LLE Strength illopsoas, quadriceps, tibialis anterior, and gastrocnemius strength 5/5. Normal tone x4 extremities. Bulk is normal. Sensory: Sensation is intact to light touch throughout Four extremities. Reflexes: RUE biceps reflex 1+ brachioradialis reflex 1+ . LUE biceps reflex 1+ brachioradialis reflex 1+ . RLE knee reflex 0 . LLE knee reflex 0 . Patterson's sign negative. Coordination: [id number] testing and rapid alternating movements are normal Gait: Normal Review and summary of old records: Orthostatic vital signs at [facility] on 09/08/2024: from a numbers criteria orthostatic vital signs were negative. However, upon sitting up the patient stated that he felt like the room was spinning. CT of the brain without contrast on 06/12/2024: No acute intracranial abnormality. MRI of the lumbar spine on 03/23/2024 without contrast: 1. Normal alignment. No acute compression fracture. 2. At L4-L5, there is severe degenerative disc disease most severe on the left side of the disc space. Disc space narrowing and left foraminal osteophyte results in severe left foraminal narrowing. Mild spinal canal stenosis. 3. Moderate right neural foraminal narrowing at L3-L4. Ferritin level on 07/09/2024: Mildly reduced at 31.5. TSH on 07/10/2024: Normal. Vitamin B12 on 07/09/24: normal at 1243. Assessment/Plan Diagnoses and all orders for this visit: Gait instability Patient has complaints of gait instability and some weakness in his lower extremities. I believe this is likely multifactorial. CT of the brain without contrast in May of 2024 was unremarkable for acute pathology to explain the patient's symptoms. Certainly intermittent cardiac issues related to his Afib, and AICD may be playing a role as well as his relative hypotension identified on examination today. He also has substantial degenerative disc disease of the lumbar spine noted on MRI fromMarch 23, 2024 with severe degenerative disc disease at L4/5 with severe left foraminal narrowing and mild canal stenosis. There is also moderate right foraminal narrowing at L3/4. Additionally, we did check orthostatic vital signs and the patient noted that, although the numbersdid not meet criteria for orthostasis, upon sitting up he did experience dizziness. Additionally, the patient has been diagnosed with leukemia. He has not undergone treatment with anychemotherapeutic agents at this time. He did have a CT scan of the brain in May 2024 that was unremarkable for acute intracranial pathology that could cause symptoms. We are unable to obtain an MRI due to the AICD. Plan: Physical therapy EMG of the bilateral lower extremities to assess for pathology as above and determine type and severity Tremor One of the original reasons for the patient's referral was tremor. The patient is now on primidone for his tremor and this seems to be helping substantially. Plan: Continue primidone Paroxysmal atrial fibrillation (CMS/HCC) AICD (automatic cardioverter/defibrillator) present CAD s/p stents Patient has an extensive cardiac history and certainly cardiac rhythm abnormality, hypotension and other cardiac diseases could be playing a major role in the patient's symptoms and I think this is highly likely. Plan: Close follow up with Cardiology The patient was accompanied by his today. She provided additional history. We had an extensivediscussion of symptoms. At this time, we have determined the patient should not be driving. Patientand understand this and patient's will help with transportation needs. Patient agrees notto drive. Pt has been fully educated on their diagnosis, lab results, treatment options, follow up plan, and return instructions documented in this encounterSoutheast Missouri Community Treatment [id number] Miscellaneous Notes* Telephone Encounter - Missy Quiles - 08/30/2024 2:08 PM EST 08/30 order received Scheduled BiPAP on 09/06 at PM Confirmation emailed Chatted pre auth for ins Medicare A&B BiPAP order & 08/30 Tartalgia notes in MM Patient needs an immediate BiPAP auto SV retitration. Also try and find a mask that does not leak and control the leak. He wants to do this at [facility]. He will not need sleep aid documented in this [facility] Telephone encounter Note* Telephone Encounter - Missy Kb - 08/30/2024 2:08 PM EST 08/30 order received Scheduled BiPAP on 09/06 at [facility] Confirmation emailed Chatted pre auth for ins Medicare A&B BiPAP order & 08/30 Tartalgia notes in MM Patient needs an immediate BiPAP auto SV retitration. Also try and find a mask that does not leak and control the leak. He wants to do this at [facility]. He will not need sleep aid [facility] nanoRETE [id number] History of Present illness Narrative* Brad Wong MD - 08/19/2024 1:00 PM EST Follow up Diagnosis: PN Location: Left nasal sidewall Last visit: 07/08/2024 Symptoms: denies Status: better Procedure performed: Shave biopsy Current treatment: Here today for re-evaluation All pertinent medical history, medications, and allergies were reviewed. General Exam: alert, oriented to person, place, and time, normal affect, well appearing Accompanied by spouse A focused exam completed based on patient reported problems, see below: 1. Prurigo nodularis Left Nasal Sidewall Mild PIH only Patient counseled on prurigo nodularis. Instructed to refrain from scratching or picking itchy bumps on skin. No further treatment needed, notify the office for recurrence. Next Visit: prn for any new/changing lesions documented in this encounterSoutheast Missouri Community Treatment [id number] [place] [address] Vascular Surg Procedure Note Signed Patient: Ila Morejon MR#: [id number] : 1945 Acct:[id number] Age/Sex: 79 / M Adm Date: 5 Loc: IR Room: Type: [facility] Attending Dr: Luiz Glass MD Copies to: MD Luiz Angel MD~ Vascular Procedure Date/Provider Date: 08/16/2024 Luiz Glass MD [facility] Procedure Procedure performed: Percutaneous, ultrasound-guided, dynamic, aortogram with bilateral common and external iliac arteryangiogram with interpretation, left common iliac artery BDRota Yoel thrombectomy and atherectomy with angioplasty and stent placement Narrative: Preoperative diagnosis: Claudication left lower extremity, left leg pain, left common iliac artery stenoses with acute thrombus Postoperative diagnosis: Same Location: IR suite at [place], [place]. Anesthesia: Conscious sedation with local EBL: Minimal Fluoroscopy time: 1.7 minutes Radiation exposure: 122 mGy Contrast: 35 cc of Isovue Disposition: Recovery then follow-up in office Findings: Severe, high-grade left common iliac artery stenoses. Complications: None at the time of this dictation. Op note: This pleasant patient was taken to the IR suite and placed the supine position the table. After adequate sterile prep and drape, a timeout was taken. Plan cc of lidocaine were used to anesthetize the left groin. A 5 Irish shortsheath was placed using sterile, real-time, dynamic ultrasoundguidance and a regular retrograde fashion in the left common femoral artery. A stiff angled, 035 Glidewire was then passed into the aorta with fluoroscopic guidance and an Omni Flush catheter was parked in the mid aorta on purpose. Upon injector was used to perform an aortogram with bilateral common and external iliac artery angiogram. The decision to intervene was made. I did upsized the left common femoral artery sheath to a 6 Irish sheath on purpose. I then exchanged out forRota Yoel wire. Heparin was given. The BD Rota Yoel device was then passed about8 times across the high-grade stenosesof the proximal left common iliac artery. Extirpation of material was successful. CT scan did reveal acute thrombus in this location. Next a Omnilink 9 x 29 mm stent was deployed precisely and accurately in the proximal left common iliac artery. Final angiogram was completed via hand-injection in the left groin which revealed excellent apposition of the stent wall with no complications identified. Upon completion of the case there did be appear to be a flow-limiting right common iliac arterylesion. However the distal right external iliac artery did have excellent flow and the washout was normal. The artifact appeared to be bowel gas in retrospect. Lastly, the patient had a normal right groin pulses 2+ upon completion of the procedure. A minx was deployed with questionable success and the patient tolerated the procedure well. Documented By: Luiz Glass MD 08/16/24 1412 Signed By: 08/16/24 1420 [facility]01-27-2025 NoteHNO ID: [id number] Author: ODALIS MENCHACA LSW Service: ? Author Type: Alpine Patroller Type: Progress Notes Filed: 08/16/2024 09:54 Note Text: Patient appears on the [facility] Time Treatment List for a non-oncology treatment. No psychosocial assessment is indicated. FRANKY Honeycutt Goals of Care Advance Directives are not on file.[facility]01-27-2025 History of Present illness Narrative* Odalis Menchaca LSW - 08/16/2024 9:53 AM EST Patient appears on the [facility] Time Treatment List for a non-oncology treatment. No psychosocial assessment is indicated. FRANKY Honeycutt Goals of Care Advance Directives are not on file. documented in this encounterSelect [facility] Telephone encounter Note * Telephone Encounter - Gladys Benjamin - 07/23/2024 1:18 PM EST Patient scheduled for Monoferric on 07/28 and then lab and OV in October with P[facility]. Patient has beennotified. Galdys Benjamin [facility]01-03-[facility]25 Miscellaneous Notes* Telephone Encounter - Gladys Benjamin - 07/23/2024 1:18 PM EST Patient scheduled for Monoferric on 07/28 and then lab and OV in October with Pablito. Patient has beennotified. Gladys Benjamin * Telephone Encounter - Raegan Arteaga APRN.CNP - 07/23/2024 10:57 AM EST Yes, that is fine. I will change the order. Thank you. * Telephone Encounter - Gladys Benjamin - 07/23/2024 10:30 AM EST Patient is able to receive the 1 time dose of Monoferric with his insurance. Okay to order Monoferric instead? Gladys Benjamin * Telephone Encounter - Marleen Drake RN - 07/23/2024 9:06 AM EST Pt aware and agreeable to IV iron, as ordered. Pt denies any questions, needs or concerns at this time. He will await call to schedule Love/Sharee: please call to schedule per JR message below Marleen Drake RN * Telephone Encounter - Marleen Drake RN - 07/23/2024 9:05 AM EST Images from the original note were not included. Raegan Arteaga APRN.CNP Powell, Natalie, RN Hi Please call patient and let him know that he is iron def, and we will give him Venofer x 5. Thanks. Venofer orders placed. Please have him follow-up in 3 months for OV and labs. Thank you. documented in this encounterSelect Medical [facility]01-[facility]25 Telephone encounter Note * Telephone Encounter - Raegan Arteaga APRN.CNP - 07/23/2024 10:57 AM EST Yes, that is fine. I will change the order. Thank you. [facility]01-03-2025 Telephone encounter Note* Telephone Encounter - Gladys Benjamin - 07/23/2024 10:30 AM EST Patient is able to receive the 1 time dose of Monoferric with his insurance. Okay to order Monoferric instead? Gladys Semon [facility]01-03-2025 Telephone encounter Note* Telephone Encounter - Marleen Drake RN - 07/23/2024 9:06 AM EST Pt aware and agreeable to IV iron, as ordered. Pt denies any questions, needs or concerns at this time. He will await call to schedule Love/Sharee: please call to schedule per JR message below Marleen Drake RN [facility]01-03-2025 Telephone encounter Note* Telephone Encounter - Marleen Drake RN - 07/23/2024 9:05 AM EST Images from the original note were not included. Raegan Arteaga APRN.ARMATURE AND ROTOR WINDER Marleen Drake, RICARDO Hi Please call patient and let him know that he is iron def, and we will give him Venofer x 5. Thanks. Venofer orders placed. Please have him follow-up in 3 months for OV and labs. Thank you. [facility]12-31-2024 [facility] Clinic Cardiology Clinic Note PMH: CAD with NSTEMI 04/2024 along with flash pulmonary edema and LBBB and new onset PAF. Had PCI to RCA 04/28/24 ([facility]) and released on triple therapy x4 weeks: ASA, Plavix (intolerant of Brilinta) & Eliquis (later changed to Xarelto). Other PMH: sinus node dysfunction with symptomatic bradycardia and significant sinus pauses (planning elective PPM 06/13/[address] Barrios), hypertension, type 2 diabetes mellitus, EMMA, CLL, CDK 3a, Chronic tobacco abuse. He lives in [facility] and is followed by Dr. Cardona at our office. 04/27/24 admitted [facility] for NSTEMI with flash pulmonary edema, finding LBBB and acute HFpEF, RIAN, new onset atrial fibrillation. High-sensitivity troponin peaked above 7000, BNP 1576. Had with PCI to RCA, and finding significant calcification, recommending triple therapy for 4 weeks. Echo found EF 45-50% with grade 2 diastolic dysfunction and elevated left atrial pressures, mild-moderate MR, moderate to severe TR. 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 Dunn. Discharged on aspirin 81 mg to stop after 4 weeks, Plavix, Eliquis 5 mg twice daily, Bumex 1 mg daily, losartan 50 mg daily, rosuvastatin 20 mg daily, amlodipine 10 mg daily, and lisinopril. No beta-shireen due to bradycardia. 06/09/24 admitted for 1 week of black tarry stools with HGB drop to 8.7. c/o chills and dizziness, denied any chest pain, shortness of breath, palpitations, syncope. In ER EKG with SB at 40/min, BP 169/50, Neg troponin. Cardiology was consulted and recommended continue ASA & Plavix and stop OAC; had urgently placed DC PPM on 06/11 for symptomatic sinus node dysfunction. EGD on 06/11 found erosive gastritis and duodenitis. Gi recommend discussing the risks and benefits of resuming anticoagulation therapy in the context of recent GI bleed and anemia; defer initiation decision to the prescribing physician. If the patient re-bleeds, consider colonoscopy for further investigation . After discussion with pt and , including risks, benefits and alternatives, patient chose to remain off OAC and take ASA & Plavix. Discharged with usual post pacemaker instructions and precautions. Discharge wt 150#. 06/16/24 had OP FU labs at : --H&H improved at 9.3/27.6--good news, --Creatinine 1.64, up from 1.53 in hospital after RIAN with peak of 1.76, with baseline 1.4-1.5. --NL K+, Mag, Na & Bicarb. Staff was to inform patient of findings and that if he is using Bumex 1mg daily and has no leg swelling then change to PRN, recheck BMP 1 week and call PCP of OPFU. 06/21/24 DR. Cardona at [facility] Chief Complaint: Patient here for wound check s/p PPM placement on 06/11/[address] Martell. He is not taking antibiotic and says he was not given one upon discharge. Pacemaker site is clean and dry. There is a healthy scab over the site. No evidence of bleeding or bruising. No evidence of inflammation around the site. NO meds changed, plan routine OFU. 07/20/24: today 162#, patient says he is feeling well, using Diuretic daily or has edema. No bleeding or palpitations, fair stamina, stable GODINEZ, mild BLE edema, taking meds as instructed. Mostly below 2 L/day. Denies CPOE, positional lightheadedness, palpitations, racing heart beats, syncope or near syncope, orthopnea, PND, GI or other bleeding. 07/20/24 Biotronik remote: No afib/flutter. AP 90% and RP 17% Labs: 07/09/24 Creat improved at 1.6, near baseline; BUN 34 and Na 135. PLAN: refilled cardiac meds, increase losartan to 100mg, he anticipates labs with his hematology oncologist. Wt Readings from Last 3 Encounters: 07/20/24 73.5 kg (162 lb) 06/13/24 68.3 kg (150 lb 9.6 oz) 05/11/24 73.5 kg (162 lb) Assessment: CAD, intolerant of Brilinta --Hx PCI 2015, PCI to RCA 04/07/24 --NSTEMI 04/27/24 with PCI to RCA, and finding significant calcification, recommending triple therapy for 4 weeks. --06/13/24 after shared decision making pt prefers no DOAC, continue ASA & Plavix. Paroxysmal atrial fibrillation, diagnosed 04/27/24 at time of NSTEMI with flash pulm edema --[id number] score is 4, had started Eliquis changed to Xarelto, now on hold d/t GI bleeding Sinus node dysfunction --SND and frequent sinus pauses up to 5.7 seconds and 1.3% burden PVC on 07/2023 Holter S/p urgent DC PPM 06/11/[address] 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 Author Type: Nurse Practitioner Type: Progress Notes Filed: 07/16/2024 15:32 Note Text: NAME: Ila Morejon CLINIC NO.: [id number] DATE OF SERVICE: July 16, 2024 (Chandler) Some elements in this clinic note that are critical to medical decision making have been carefully reviewed and included from a prior clinic note dated: July 09, 2024 (Nabil) Referring Provider: Cruzito Mcgrath Additional Clinicians involved in Ila Morejon's care: DIAGNOSIS: lymphocytosis ASSESSMENT: 78 year old man with DM HTN, PVD presenting with lymphocytosis and diagnosed with CLL early June 2022. 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 He has new anemia, likely secondary to his recent diagnosis of GI bleed and gastritis, duodenitis found on EGD.Will do complete anemia work up today. He does not have any significant change in his WBC or exam findings to indicate this is CLL related. I will also offer him a transfusion of 1 unit of PRBCs because of his cardiac history and he is symptomatic. He will follow up in 1 week. CKD- mild and stable Gastritis/duodenitis--continue protonix per GI Afib now with pacemaker--on plavix and EC aspirin. Off eliquis since GI bleed DM2-advised patient his glucose level Is >300 and to follow up with PCP PLAN: Continue protonix, plavix, EC aspirin Stay off Eliquis Follow up with PCP for DM control RV in 1 week for follow up HPI: CASE HISTORY: Reverse Chronological Order 04/04/2023 - Admitted to [facility] with NSTEMI Underwent placement of drug eluting [...] Abs. Lymph: 10.1 Updated Visit, July 16, 2024: Ila returns with his today Sabrina. Still on Plavix and EC aspirin. No blood in stool or urine. Feeling very fatigued and sleeing a lot. Hgb today is up to 8.7. Currently undergoing PT for weakness in legs. He denies fevers, chills, early satiety, weight loss, lymph nodes or pain or night sweats. Denies any chest pain or shortness of breath. Updated Visit, July 09, 2024: Ila returns for 6 month follow up. Was hospitalized 06/09-06/13 for GI bleed and pacemaker placement. Had preadmission testing for pacemaker placement and found to have a heomoglobin of 7.8. He had been started on eliquis a month prior for afib and was also on aspirin. EGD done showed gastritis and duodenitis. He has stopped eliquis and changed to EC aspirin. He is still on plavix, however. He is also taking protonix. He was also having issues with swelling and is on bumex 1mg now which is helping.He reports that has stools have returned to a normal color and he has not noticed any bleeding. He denies fevers, chills, early satiety, weight loss, lymph nodes or pain or night sweats. He reports that he feels weak and dizzy is he stands up too fast. Denies any chest pain or shortness of breath. Updated Visit, January 16, 2024: Ila returns [...] Has been sleeping more, especially since the CA. Updated Visit, December 27, 2022: 13 year [...] 21, 2022: Ila Morejon presents today Hematology (more content not included)...[facility]12-27-20[facility] History of Present illness Narrative* Raegan Arteaga APRN.ARMATURE AND ROTOR WINDER - 07/16/2024 1:54 PM EST Images from the original note were not included. NAME: Ila Morejon CLINIC NO.: [id number] DATE OF SERVICE: July 16, 2024 (Chandler) Some elements in this clinic note that are critical to medical decision making have been carefully reviewed and included from a prior clinic note dated: July 09, 2024 (Nabil) Referring Provider: Cruzito Mcgrath Additional Clinicians involved in Ila Morejon's care: DIAGNOSIS: lymphocytosis ASSESSMENT: 78 year old man with DM HTN, PVD presenting with lymphocytosis and diagnosed with CLL early June 2022. 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 He has new anemia, likely secondary to his recent diagnosis of GI bleed and gastritis, duodenitis found on EGD.Will do complete anemia work up today. He does not have any significant change in his WBC or exam findings to indicatethis is CLL related. I will also offer him a transfusion of 1 unit of PRBCs because of his cardiac history and he is symptomatic. He will follow up in 1 week. CKD- mild and stable Gastritis/duodenitis--continue protonix per GI Afib now with pacemaker--on plavix and EC aspirin. Off eliquis since GI bleed DM2-advised patient his glucose level Is >300 and to follow up with PCP PLAN: Continue protonix, plavix, EC aspirin Stay off Eliquis Follow up with PCP for DM control RV in 1 week for follow up HPI: CASE HISTORY: Reverse Chronological Order 04/04/2023 - Admitted to [facility] with NSTEMI Underwent placement of drug eluting [...] Abs. Lymph: 10.1 Updated Visit, July 16, 2024: Ila returns with his today Sabrina. Still on Plavix and EC aspirin. No blood in stool or urine. Feeling very fatigued and sleeing a lot. Hgb today is up to 8.7. Currently undergoing PT for weakness in legs. He denies fevers, chills, early satiety, weight loss, lymph nodes or pain or night sweats. Denies any chest pain or shortness of breath. Updated Visit, July 09, 2024: Ila returns for 6 month follow up. Was hospitalized 06/09-06/13 for GI bleed and pacemaker placement. Had preadmission testing for pacemaker placement and found to have a heomoglobin of 7.8. He had been started on eliquis a month prior for afib and was also on aspirin. EGD done showed gastritis and duodenitis. He has stopped eliquis and changed to EC aspirin. He is still on plavix, however. Heis also taking protonix. He was also having issues with swelling and is on bumex 1mg now which is helping.He reports that has stools have returned to a normal color and he has not noticed any bleeding. He denies fevers, chills, early satiety, weight loss, lymph nodes or pain or night sweats. He reports that he feels weak and dizzy is he stands up too fast. Denies any chest pain or shortness of breath. Updated Visit, January 16, 2024: Ila returns [...] attack. We will continue to monitor this, buthe does not need to start PO iron at this time. His WBCs are not as elevated as they were previously. He denies any B symptoms. Has been sleeping more, especially since the CA. Updated Visit, December 27, 2022: 13 year [...] and his Sabrina. We discussed results from laboratoriesobtained at his last visit. Findings were consistent [...] of CLL as his presumptive diagnosis. We alsodiscussed the classic time course of this disease process as well as potential treatments. REVIEW OF SYSTEMS Per HPI and otherwise negative by full review of organ systems. ECOG PERFORMANCE STATUS: 0 PHYSICAL EXAMINATION: Vitals: BP 138/54 Pulse 67 Temp (Src) 97 (Temporal) Resp 18 Wt 164 lb 0.4 oz (74.4kg) SpO2 96% Body surface area is 1.88 meters squared. General: Alert and oriented, no distress, pleasant and cooperative. Heart: Regular, normal S1 and S2, no murmurs, rubs, or gallops, pacemaker left chest wall Lungs: Clear to auscultation bilaterally Abdomen: Benign, no HSM palpable Extremities: Feet/ankles without edema, posterior tibial pulses full and symmetrical Lymph: no cervical, SC or axillary nodes on exam ALLERGIES: ALLERGIES No Known Allergies MEDICATIONS: bumetanide (BUMEX) 1 mg tablet Take 1 mg by mouth. therapeutic multivitamin-minerals (THERA-M PLUS) 9 mg iron-400 mcg tablet Take 1 tablet by mouth every morning. pantoprazole DR (PROTONIX) 40 mg tablet Take 40 mg by mouth once daily. losartan (COZAAR) 50 mg tablet Take 50 mg by mouth once daily. primidone (MYSOLINE) 50 mg tablet Take 50 mg by mouth daily at bedtime. potassium gluconate 595 mg (99 mg) TbER Take 595 mg by mouth. metFORMIN (GLUCOPHAGE) 500 mg tablet Take 500 mg by mouth daily with breakfast. rosuvastatin (CRESTOR) 20 mg tablet Take 20 [...] 100 unit/mL injection Inject subcutaneously as directed. Zinc 50 mg tab Take 50 mg by mouth once daily. carvedilol (COREG) 6.25 mg tablet Take 3.125 mg by mouth two times a day with meals. pravastatin (PRAVACHOL) 20 mg tablet Take 20 mg by mouth once daily. clopidogrel (PLAVIX) 75 mg tablet Take 75 mg by mouth once daily. LABORATORY VALUES: WBC (k/uL) Date Value 07/16/2024 13.82 (H) RBC (m/uL) Date Value 07/16/2024 2.98 (L) Hemoglobin (g/dL) Date Value 07/16/2024 8.7 (L) Hematocrit (%) Date Value 07/16/2024 25.8 (L) MCV (fL) Date Value 07/16/2024 86.6 MCH (pg) Date Value 07/16/2024 29.2 MCHC (g/dL) Date Value 07/16/2024 33.7 RDW-CV (%) Date Value 07/16/2024 13.5 Platelet Count (k/uL) Date Value 07/16/2024 128 (L) MPV (fL) Date Value 07/16/2024 10.0 Glucose (mg/dL) Date Value 07/09/2024 322 (H) BUN (mg/dL) Date Value 07/09/2024 34 (H) Creatinine (mg/dL) Date Value 07/09/2024 1.60 (H) Sodium (mmol/L) Date Value 07/09/2024 135 (L) Potassium (mmol/L) Date Value 07/09/2024 5.1 Chloride (mmol/L) Date Value 07/09/2024 99 CO2 (mmol/L) Date Value 07/09/2024 28 Protein, Total (g/dL) Date Value 07/09/2024 6.2 (L) Albumin (g/dL) Date Value 07/09/2024 4.0 Calcium, Total (mg/dL) Date Value 07/09/2024 9.6 Alkaline Phosphatase (U/L) Date Value 07/09/2024 121 (H) Bilirubin, Total (mg/dL) Date Value 07/09/2024 0.3 AST (U/L) Date Value 07/09/2024 14 ALT (U/L) Date Value 07/09/2024 16 DIAGNOSIS: (C91.10) CLL (chronic lymphocytic leukemia) (HCC) (primary encounter diagnosis) Plan: COMPLETE BLOOD COUNT AND DIFFERENTIAL, COMPLETE BLOOD COUNT AND DIFFERENTIAL PAST MEDICAL HISTORY Diagnosis Date CAD (coronary artery disease) Diabetes mellitus (HCC) Dyslipidemia Heart attack (HCC) History of recent blood transfusion Hx of heart artery stent Hypertension Inguinal hernia Left Leukocytosis Pacemaker Peripheral vascular disease (HCC) Vitamin D deficiency PAST SURGICAL HISTORY Procedure Laterality Date ANESTH,PACEMAKER INSERTION HERNIA REPAIR HX PAST SURGICAL HISTORY OF Cardiac stent x4 Social History Tobacco Use Smoking status: Former Types: Cigarettes Passive exposure: Past Smokeless tobacco: Never FAMILY HISTORY Problem Relation Age of Onset Diabetes Mother Cancer Father Diabetes Father I spent a total of 40 minutes on the date of the service which included preparing to see the patient, [id number] patient care, completing clinical documentation, obtaining and/or reviewing separately obtained history, performing a medically appropriate examination, counseling and educating the pat ient/family/caregiver, ordering medications, tests, or procedures, communicating with other HCPs (not separately reported), independently interpreting results (not separately reported), communicatingresults to the patient/family/caregiver, and care coordination (not separately reported). . Raegan Arteaga APRN, EDUCATION PROGRAM COORDINATOR-C, [facility]ology [facility] Provided at: [place], [place] CC: Cruzito Mcgrath MD ([facility]) [address] [facility] [address] documented in this encounterSelect Medical [facility]12-[facility] Telephone encounter Note * Telephone Encounter - Gladys Benjamin - 07/09/2024 2:51 PM EST Patient has been scheduled for transfusion on Friday. Lab @ 9:30 for TSC and 11:00 am transfusion. Gladys Benjamin [facility]12-20-2024 Miscellaneous Notes* Telephone Encounter - Gladys Benjamin - 07/09/2024 2:51 PM EST Patient has been scheduled for transfusion on Friday. Lab @ 9:30 for TSC and 11:00 am transfusion. Gladys Benjamin * Telephone Encounter - Gladys Benjamin - 07/09/2024 2:22 PM EST Left message w/ [facility] to schedule for transfusion early next week. Faxed order July 0942:30 PM Gladys Benjamin documented in this encounterSelect Medical [facility]12-[facility]-2024 Telephone encounter Note * Telephone Encounter - Gladys Benjamin - 07/09/2024 2:22 PM EST Left message w/ [facility] to schedule for transfusion early next week. Faxed order July 0942:30 PM Gladys Benjamin [facility] History of Present illness Narrative* Shaggy Arriaza PA-C - 07/09/2024 2:00 PM EST Images from the original note were not included. NAME: Ila Morejon CLINIC NO.: [id number] DATE OF SERVICE: July 09, 2024 (Nabil) Some elements in this clinic note that are critical to medical decision making have been carefully reviewed and included from a prior clinic note dated: January 16, 2024 (Lory) Referring Provider: Cruzito Mcgrath Additional Clinicians involved in Ila Morejon's care: DIAGNOSIS: lymphocytosis ASSESSMENT: 78 year old man with DM HTN, PVD presenting with lymphocytosis and diagnosed with CLL early June 2022. 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 He has new anemia, likely secondary to his recent diagnosis of GI bleed and gastritis, duodenitis found on EGD.Will do complete anemia work up today. He does not have any significant change in his WBC or exam findings to indicatethis is CLL related. I will also offer him a transfusion of 1 unit of PRBCs because of his cardiac history and he is symptomatic. He will follow up in 1 week. CKD- mild and stable Gastritis/duodenitis--continue protonix per GI Afib now with pacemaker--on plavix and EC aspirin. Off eliquis since GI bleed DM2-advised patient his glucose level Is >300 and to follow up with PCP PLAN: Anemia lab work up today Type and cross and transfuse 1 unit of PRBCs at [facility] early next week Continue protonix, plavix, EC aspirin Stay off Eliquis Follow up with PCP for DM control RV in 1 week for follow up HPI: CASE HISTORY: Reverse Chronological Order 04/04/2023 - Admitted to [facility] with NSTEMI Underwent placement of drug eluting [...] 18.8>14.0/39.7<185 Abs. Lymph: 10.1 Updated Visit, July 09, 2024: Ila returns for 6 month follow up. Was hospitalized 06/09-06/13 for GI bleed and pacemaker placement. Had preadmission testing for pacemaker placement and found to have a heomoglobin of 7.8. He had been started on eliquis a month prior for afib and was also on aspirin. EGD done showed gastritis and duodenitis. He has stopped eliquis and changed to EC aspirin. He is still on plavix, however. Heis also taking protonix. He was also having issues with swelling and is on bumex 1mg now which is helping.He reports that has stools have returned to a normal color and he has not noticed any bleeding. He denies fevers, chills, early satiety, weight loss, lymph nodes or pain or night sweats. He reports that he feels weak and dizzy is he stands up too fast. Denies any chest pain or shortness of breath. Updated Visit, January 16, 2024: Ila returns [...] attack. We will continue to monitor this, buthe does not need to start PO iron at this time. His WBCs are not as elevated as they were previously. He denies any B symptoms. Has been sleeping more, especially since the CA. Updated Visit, December 27, 2022: 13 year [...] and his Sabrina. We discussed results from laboratoriesobtained at his last visit. Findings were consistent [...] of CLL as his presumptive diagnosis. We alsodiscussed the classic time course of this disease process as well as potential treatments. REVIEW OF SYSTEMS Per HPI and otherwise negative by full review of organ systems. ECOG PERFORMANCE STATUS: 0 PHYSICAL EXAMINATION: Vitals: BP 134/45 Pulse 60 Temp (Src) 98 (Temporal) Resp 16 Ht 5' 7.52 (1.72m) Wt 160 lb11.5 oz (72.9kg) SpO2 95% BMI 24.79 kg/(m^2). Body surface area is 1.86 meters squared. General: Alert and oriented, no distress, pleasant and cooperative. Heart: Regular, normal S1 and S2, no murmurs, rubs, or gallops, pacemaker left chest wall Lungs: Clear to auscultation bilaterally Abdomen: Benign, no HSM palpable Extremities: Feet/ankles without edema, posterior tibial pulses full and symmetrical Lymph: no cervical, SC or axillary nodes on exam ALLERGIES: ALLERGIES No Known Allergies MEDICATIONS: bumetanide (BUMEX) 1 mg tablet Take 1 mg by mouth. therapeutic multivitamin-minerals (THERA-M PLUS) 9 mg iron-400 mcg tablet Take 1 tablet by mouth every morning. pantoprazole DR (PROTONIX) 40 mg tablet Take 40 mg by mouth once daily. losartan (COZAAR) 50 mg tablet Take 50 mg by mouth once daily. primidone (MYSOLINE) 50 mg tablet Take 50 mg by mouth daily at bedtime. potassium gluconate 595 mg (99 mg) TbER Take 595 mg by mouth. rosuvastatin (CRESTOR) 20 mg [...] 100 unit/mL injection Inject subcutaneously as directed. carvedilol (COREG) 6.25 mg tablet Take 3.125 mg by mouth two times a day with meals. clopidogrel (PLAVIX) 75 mg tablet Take 75 mg by mouth once daily. metFORMIN (GLUCOPHAGE) 500 mg tablet Take 500 mg by mouth daily with breakfast. Zinc 50 mg tab Take 50 mg by mouth once daily. pravastatin (PRAVACHOL) 20 mg tablet Take 20 mg by mouth once daily. LABORATORY VALUES: WBC (k/uL) Date Value 07/09/2024 13.67 (H) RBC (m/uL) Date Value 07/09/2024 2.65 (L) Hemoglobin (g/dL) Date Value 07/09/2024 7.7 (L) Hematocrit (%) Date Value 07/09/2024 22.9 (L) MCV (fL) Date Value 07/09/2024 86.4 MCH (pg) Date Value 07/09/2024 29.1 MCHC (g/dL) Date Value 07/09/2024 33.6 RDW-CV (%) Date Value 07/09/2024 12.9 Platelet Count (k/uL) Date Value 07/09/2024 154 MPV (fL) Date Value 07/09/2024 9.5 Glucose (mg/dL) Date Value 07/09/2024 385 (H) BUN (mg/dL) Date Value 07/09/2024 35 (H) Creatinine (mg/dL) Date Value 07/09/2024 1.59 (H) Sodium (mmol/L) Date Value 07/09/2024 134 (L) Potassium (mmol/L) Date Value 07/09/2024 5.4 (H) Chloride (mmol/L) Date Value 07/09/2024 99 CO2 (mmol/L) Date Value 07/09/2024 27 Protein, Total (g/dL) Date Value 07/09/2024 6.2 (L) Albumin (g/dL) Date Value 07/09/2024 4.1 Calcium, Total (mg/dL) Date Value 07/09/2024 9.6 Alkaline Phosphatase (U/L) Date Value 07/09/2024 131 (H) Bilirubin, Total (mg/dL) Date Value 07/09/2024 0.3 AST (U/L) Date Value 07/09/2024 13 (L) ALT (U/L) Date Value 07/09/2024 16 DIAGNOSIS: (C91.10) CLL (chronic lymphocytic leukemia) (HCC) (primary encounter diagnosis) Plan: COMPREHENSIVE METABOLIC PANEL, COMPLETE BLOOD COUNT AND DIFFERENTIAL, IRON AND TIBC, LACTATE DEHYDROGENASE, FERRITIN, FOLATE, SERUM, MONOCLONAL PROTEIN, SERUM (BLOOD), RETICULOCYTE COUNT, THYROID STIMULATING HORMONE, VITAMIN B12, HAPTOGLOBIN, METHYLMALONIC ACID, ERYTHROPOIETIN/EPO, CAMILO DIRECT, B2 MICROGLOBULIN, COMPREHENSIVE METABOLIC PANEL, COMPLETE BLOOD COUNT AND DIFFERENTIAL (D64.9) Anemia, unspecified type Plan: IRON AND TIBC, LACTATE DEHYDROGENASE, FERRITIN, FOLATE, SERUM, MONOCLONAL PROTEIN, SERUM (BLOOD), RETICULOCYTE COUNT, THYROID STIMULATING HORMONE, VITAMIN B12, HAPTOGLOBIN, METHYLMALONIC ACID, ERYTHROPOIETIN/EPO, CAMILO DIRECT, B2 MICROGLOBULIN, COMPREHENSIVE METABOLIC PANEL, COMPLETE BLOOD COUNT AND DIFFERENTIAL (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 [...] Diabetes Father I spent a total of 40 minutes on the date of the service which included preparing to see the patient, [id number] patient care, completing clinical documentation, obtaining and/or reviewing separately obtained history, performing a medically appropriate examination, counseling and educating the pat ient/family/caregiver, ordering medications, tests, or procedures, communicating with other HCPs (not separately reported), independently interpreting results (not separately reported), communicatingresults to the patient/family/caregiver, and care coordination (not separately reported). Shaggy Arriaza PA-C Hematology and Oncology Services Provided at: [place], [place] CC: Cruzito Mcgrath MD ([facility]) [address] [address] documented in this encounterSelect [facility] NoteHNO ID: [id number] Author: SHAGGY ARRIAZA PA-C Service: ? Author Type: Physician Miniature Set Constructor Type: Progress Notes Filed: 07/09/2024 14:39 Note Text: NAME: Ila Morejon CLINIC NO.: [id number] DATE OF SERVICE: July 09, 2024 (Nabil) Some elements in this clinic note that are critical to medical decision making have been carefully reviewed and included from a prior clinic note dated: January 16, 2024 (Lory) Referring Provider: Cruzito Mcgrath Additional Clinicians involved in Ila Morejon's care: DIAGNOSIS: lymphocytosis ASSESSMENT: 78 year old man with DM HTN, PVD presenting with lymphocytosis and diagnosed with CLL early June 2022. 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 He has new anemia, likely secondary to his recent diagnosis of GI bleed and gastritis, duodenitis found on EGD.Will do complete anemia work up today. He does not have any significant change in his WBC or exam findings to indicate this is CLL related. I will also offer him a transfusion of 1 unit of PRBCs because of his cardiac history and he is symptomatic. He will follow up in 1 week. CKD- mild and stable Gastritis/duodenitis--continue protonix per GI Afib now with pacemaker--on plavix and EC aspirin. Off eliquis since GI bleed DM2-advised patient his glucose level Is >300 and to follow up with PCP PLAN: Anemia lab work up today Type and cross and transfuse 1 unit of PRBCs at [facility] early next week Continue protonix, plavix, EC aspirin Stay off Eliquis Follow up with PCP for DM control RV in 1 week for follow up HPI: CASE HISTORY: Reverse Chronological Order 04/04/2023 - Admitted to [facility] with NSTEMI Underwent placement of drug eluting [...] 18.8>14.0/39.7<185 Abs. Lymph: 10.1 Updated Visit, July 09, 2024: Ila returns for 6 month follow up. Was hospitalized 06/09-06/13 for GI bleed and pacemaker placement. Had preadmission testing for pacemaker placement and found to have a heomoglobin of 7.8. He had been started on eliquis a month prior for afib and was also on aspirin. EGD done showed gastritis and duodenitis. He has stopped eliquis and changed to EC aspirin. He is still on plavix, however. He is also taking protonix. He was also having issues with swelling and is on bumex 1mg now which is helping.He reports that has stools have returned to a normal color and he has not noticed any bleeding. He denies fevers, chills, early satiety, weight loss, lymph nodes or pain or night sweats. He reports that he feels weak and dizzy is he stands up too fast. Denies any chest pain or shortness of breath. Updated Visit, January 16, 2024: Ila returns [...] Has been sleeping more, especially since the CA. Updated Visit, December 27, 2022: 13 year [...] no other lympho-megaly. No B symptoms. We thorshonda gomez (more content not included)...[facility] 07-08-2024 History of Present illness Narrative* Brad Wong MD - 07/08/2024 1:00 PM EST Images from the original note were not included. Skin Check Location: Patient requests a skin examination from the waist up Dermatologic history: history of Actinic Keratosis, history of Squamous Cell Carcinoma Last visit: 6 months ago Established patient All pertinent medical history, medications, and allergies were reviewed. General Exam: alert, oriented to person, place, and time, normal affect, well appearing Unaccompanied A complete skin exam was offered, pt declined. Areas not examined despite medical recommendation: From the waist down Scalp, Examined , exam limited by hair Head, Face Examined Neck Examined Chest Examined Back Examined Abdomen Examined Right arm Examined Left arm Examined Hands Examined Digits,nails: Examined Lymphatics: Not examined 1. Seborrheic keratosis Head - Anterior (Face) Stuck on verrucous, paige-brown papules and plaques. Patient was counseled regarding these benign growths. Removal is normally not necessary, but they may be removed if they are symptomatic or for cosmetic reasons. 2. History of SCC (squamous cell carcinoma) of skin Left Jawline No evidence of recurrence at SCC scar. The patient was counseled that scars from excisional sites of nonmelanoma skin cancers should be monitored closely for recurrence. The patient was instructed to contact the office for any new, changing, or symptomatic moles. The patient was also instructed to contact the office for any new lesions that develop within or around the previous surgery scar. 3. Actinic keratosis (2) Mid Parietal Scalp (2) Erythematous scaly papules Patient was counseled regarding these sun-induced growths that can develop into squamous cell carcinoma if left untreated. Discussed treatment with cryotherapy. It was emphasized that any treated lesions that fail to resolve should be re- evaluated. Cryotherapy performed today; see procedure note Diagnosis: Actinic keratosis Indication: Precancerous Location: see skin exam Consent: Verbal consent was obtained and risks were discussed, including, but not limited to risks of scarring, darker or catheterization laboratory technician pigmentary changes, recurrence, incomplete removal and infection. Method: Liquid nitrogen was used to treat the lesion(s) with two 5-10 second freeze-thaw cycles. Number of lesions treated: 2 Post-procedure instructions: Instructions were given orally and in writing. The office will be contacted if the lesion fails to resolve despite treatment, or if a side effect develops such as abnormal crusting, scabbing, redness or tenderness Cryotherapy, skin lesion - Mid Parietal Scalp (2) 4. Lentigines Mid Parietal Scalp Scattered paige macules in sun-exposed areas. The patient was informed that lentigines are benign pigmented lesions that occur on sun-exposed andsun-damaged skin. No treatment is necessary. Recommended regular use of broad spectrum sunscreen SPF 30 or higher 5. Neoplasm of unspecified behavior of bone, soft tissue, and skin Left Nasal Sidewall Excoriated papule Lesion biopsy Type of biopsy: tangential Informed consent: discussed and consent obtained Informed consent comment: The risks and benefits of the biopsy were discussed. Risks include but are not limited to bleeding, infection, scarring, pain, and nerve damage. An opportunity to ask questions prior to the procedure was permitted and all questions were answered. Patient was prepped and draped in usual sterile fashion: area cleansed with alcohol. Anesthesia: the lesion was anesthetized in a standard fashion Anesthetic: 1% lidocaine w/ epinephrine 1-100,000 buffered w/ 8.4% NaHCO3 Instrument used: DermaBlade Hemostasis achieved with: electrodesiccation Outcome: patient tolerated procedure well Outcome comment: The specimen was placed in a prelabeled formalin container to be sent for pathology Post-procedure details: sterile dressing applied and wound care instructions given Post-procedure details comment: Emphasized need to contact clinic for any signs of infection, uncontrollable bleeding, or complications. Dressing type: bandage Additional details: Photo taken Amount of lidocaine used: 0.5 cc Specimen A - Dermatopathology exam Differential Diagnosis: BCC vs prurigo Check Margins: No Size of lesion: 0.9 x 0.8 cm Next Visit: 1 year documented in this encounterSoutheast Missouri Community Treatment [id number] History of Present illness Narrative* Cruzito Mcgrath MD - 06/24/2024 10:56 AM ESTAssociated Problem(s): Paroxysmal atrial fibrillation (CMS/HCC) In NSR and continue medication. Recent GI bleed and Eliquis on hold. * Cruzito Mcgrath MD - 06/24/2024 10:55 AM ESTAssociated Problem(s): Gastrointestinal hemorrhage associated with acute gastritis Bleed related to Eliquis and stopped. Continue protonix. * Cruzito Mcgrath MD - 06/24/2024 10:55 AM ESTAssociated Problem(s): Duodenitis Continue protonix. * Cruzito Mcgrath MD - 06/24/2024 10:55 AM ESTAssociated Problem(s): Chronic heart failure with preserved ejection fraction (HFpEF) (CMS/HCC) Worsening edema and increase bumex. Elevate legs PRN. * Cruzito Mcgrath MD - 06/24/2024 10:55 AM ESTAssociated Problem(s): Asymptomatic bradycardia Recent pacemaker placed and follow with cardiology. * Cruzito Mcgrath MD - 06/24/2024 9:45 AM EST Images from the original note were not included. Subjective Patient ID: Ila Morejon is a 78 y.o. male who presents for Follow-up ([facility] cardiology f./up). Hospital follow up from 06/09-06/13 for GI bleed and pacemaker placement. Scheduled for pacemaker and had PAT. Labs showed new anemia 7.8 and directed to ER. Month prior has started Eliquis for afib and already was on aspirin. EGD showed gastritis and duodenitis. Stopped Eliquis and changed to EC aspirin. Still on plavix. Added protonix. Pacemaker placed 06/11 and doing well. C/o worsening weakness and unsteady gait. Hospital stated would arrange home health but did not. C/o worsening edema in both feet. Taking bumex but not helping. Review of Systems Constitutional: Negative for fatigue. [...] Assessment/Plan Problem List Items Addressed This Visit Asymptomatic bradycardia Recent pacemaker placed and follow with cardiology. Benign essential tremor Relevant Medications primidone (Mysoline) 50 MG tablet Chronic heart failure with preserved ejection fraction (HFpEF) (CMS/HCC) Worsening edema and increase bumex. Elevate legs PRN. Relevant Medications bumetanide (Bumex) 1 MG tablet Paroxysmal atrial fibrillation (CMS/HCC) In NSR and continue medication. Recent GI bleed and Eliquis on hold. Gastrointestinal hemorrhage associated with acute gastritis - Primary Bleed related to Eliquis and stopped. Continue protonix. Duodenitis Continue protonix. Other Visit Diagnoses Essential tremor Relevant Medications gabapentin (Neurontin) 300 MG capsule documented in this encounterSoutheast Missouri Community Treatment [id number] NoteI was able to reach the patients spouse, notified.[facility]12-04-2024 Note Evaluated 06/16/24 labs drawn at . --H&H improved at 9.3/.6--good news --Creatinine 1.64, up from 1.53 in hospital after RIAN with peak of 1.76, with baseline 1.4-1.5 --NL K+, Mag, Na & Bicarb. Will ask staff to inform patient of findings, --If he is using Bumex 1mg daily, and does not have leg swelling or other perceived fluid retention, then change to PRN. --Will plan to recheck BMP in 1 week, --Recommend OPFU with his PCP. --Will also arrange OPFU with cardiology clinic in 1 month Sergo Vazquez PA-C [facility] Cardiovascular Medicine [phone] County Hospital12-04-2024 NoteLVM for patient, sent to for scheduling.[facility]12-04-2024 NoteLVM for patient.[facility]12-04-2024 NoteLVM for the patient to return the call.[facility]12-02-2024 Note [facility] Cardiology Clinic Note Chief Complaint: Patient here for wound check s/p PPM placement on 06/11/[address] Martell. He is not taking antibiotic and says he was not given one upon discharge. HPI: Ila Morejon is a 78 y.o. male Past Medical History He has a past medical history of Carotid artery stenosis, Chronic kidney disease, Coronary artery disease, Diabetes mellitus ([facility]/HCC), Hyperlipidemia, Hypertension, Myocardial infarction ([facility]/HCC), and PAD (peripheral artery disease) ([facility]). Surgical History He has a past surgical history that includes Cardiac catheterization; Coronary stent placement; Cholecystectomy; and Peripheral arterial stent graft. Social History He reports that he has been smoking cigarettes. He has never used smokeless tobacco. He reports that he does not currently use alcohol. No history on file for drug use. Family History No family history on file. Allergies Brilinta [ticagrelor] Medications Current Outpatient Medications: amLODIPine (Norvasc) 10 mg tablet, Take 1 tablet by mouth in the morning., Disp: , Rfl: aspirin 81 mg EC tablet, Take 1 tablet (81 mg) by mouth in the morning. Change from chewables to safety coated 81mg daily, Disp: 90 tablet, Rfl: 3 bumetanide (Bumex) 1 mg tablet, Take 1 tablet (1 mg) by mouth in the morning., Disp: 90 tablet, Rfl: 3 carvedilol (Coreg) 3.125 mg tablet, Take 1 tablet (3.125 mg) by mouth two times daily., Disp: 60 tablet, Rfl: 5 cholecalciferol (Vitamin D-3) 25 MCG (1000 units) tablet, Take 2,000 Units by mouth in the morning., Disp: , Rfl: clopidogrel (Plavix) 75 mg tablet, Take 4 tablets (300 mg) by mouth in the morning for 1 day, THEN 1 tablet (75 mg) in the morning., Disp: 364 tablet, Rfl: 0 clopidogrel (Plavix) 75 mg tablet, Take 75 mg by mouth in the morning., Disp: , Rfl: coenzyme Q-10 100 mg capsule, Take 100 mg by mouth in the morning., Disp: , Rfl: gabapentin (Neurontin) 300 mg capsule, Take 300 mg by mouth three times daily., Disp: , Rfl: insulin glargine (Lantus) 100 unit/mL injection vial, Inject 52 Units under the skin in the morning., Disp: , Rfl: losartan (Cozaar) 50 mg tablet, Take 1 tablet (50 mg) by mouth once daily as directed. RESUME TAKING ON 06/14/24, Disp: 30 tablet, Rfl: 0 magnesium 250 mg tablet, Take 1 tablet by mouth in the morning., Disp: , Rfl: metFORMIN (Glucophage) 500 mg tablet, Take 500 mg by mouth with breakfast., Disp: , Rfl: mv-min/folic/K1/lycopen/lutein (CENTRUM SILVER ULTRA MEN'S ORAL), Take 1 tablet by mouth in the morning., Disp: , Rfl: pantoprazole (ProtoNix) 40 mg EC tablet, Take 1 tablet (40 mg) by mouth two times daily. Do not crush, chew, or split., Disp: 60 tablet, Rfl: 1 potassium gluconate 595 mg (99 mg) tablet extended release, Take 595 mg by mouth in the morning., Disp: , Rfl: primidone (Mysoline) 50 mg tablet, Take 50 mg by mouth in the morning., Disp: , Rfl: rosuvastatin (Crestor) 40 mg tablet, Take 20 mg by mouth in the evening., Disp: , Rfl: Physical Examination: Pacemaker site is clean and dry. There is a healthy scab over the site. No evidence of bleeding or bruising. No evidence of inflammation around the site. 06/11/2024 IMPRESSION: 1. Successful dual chamber pacemaker with excellent pacing and sensing parameters. RECOMMENDATIONS: 1. Occlusive dressing to be removed after 2 weeks. 2. Do not wet the incision for 7 days. 3. No lifting heavy weights using arm on the same side x 3weeks 4. Do not lift elbow above the shoulder on the same side for 4-6 weeks. 5. No driving for 1 month. 6. F/u in device clinic 1 week from discharge or sooner for any concerns. Adriano Martell M.D. [facility] Fishing Lure Assemblerwardrobe mistress and Pediatrics Director: Cardiac Electrophysiology Program Assessment: Acute blood loss anemia, GI Bleeding: Erosive gastritis and severe duodenitis without ulcerations on EGD 06/11/24. Cannot rule out LGI bleeding. --changing chewable ASA to EC ASA CAD, intolerant of Brilinta --Hx PCI 2015, PCI to RCA 04/07/24 --NSTEMI 04/27/24 with PCI to RCA, and finding significant calcification, recommending triple therapy for 4 weeks. --06/13/24 after shared decision making pt prefers no DOAC, continue ASA & Plavix. Paroxysmal atrial fibrillation, diagnosed 04/27/24 at time of NSTEMI with flash pulm edema --[id number] score is 4, had started Eliquis changed to Xarelto, now on hold d/t GI bleeding Sinus node dysfunction --SND and frequent sinus pauses up to 5.7 seconds and 1.3% burden PVC on 07/2023 Holter S/p urgent DC PPM 06/11/[address] Martell HFmrEFwith diastolic dysfunction --04/2024 TTE (at time of NSTEMI): EF of 45-50%, Gr2 LVDD and severe PH with RVSP 61mmHg, [id number] MR, moderate to severe TR T2DM Systemic and pulmonary HTN HLD on statin --04/2024 LDL 18 with TG 41 PAD CLL RIAN on CKD 3a, BL Scr appears 1.4-1.5 EMMA Plan: Follow EP instructio (more content not included)...[facility]11-25-2024 Telephone encounter Note* Telephone Encounter - Daija Frausto - 06/14/2024 11:26 AM EST Patients reduction furnace operator helper would like him to go back on gabapentin. an [facility] [id number] Miscellaneous Notes* Telephone Encounter - Daija Frausto - 06/14/2024 11:26 AM EST Patients reduction furnace operator helper would like him to go back on gabapentin. an documented in this encounterSoutheast Missouri Community Treatment [id number] NotePhysical Therapy Physical Therapy Treatment Patient Name: Ila Morejon : 1945 Today's Date: 06/13/2024 Patient Active Problem List Diagnosis Abnormal result of cardiovascular function study, unspecified Asymptomatic bradycardia Atherosclerotic heart disease of [place] coronary artery without angina pectoris Benign essential HTN Benign essential tremor Bilateral carotid artery stenosis Change in voice CKD stage 3b, GFR 30-44 ml/min (CMS/HCC) Claudication (CMS/HCC) CLL (chronic lymphocytic leukemia) (CMS/HCC) DDD (degenerative disc disease), lumbar Edema of both legs Encounter for long-term (current) use of medications Hoarseness Hyperlipidemia Hypertension Large granular lymphocytosis Lumbar radiculopathy Normal pressure hydrocephalus (CMS/HCC) NSTEMI (non-ST elevated myocardial infarction) (CMS/HCC) Obstructive sleep apnea Overweight (BMI 25.0-29.9) PAD (peripheral artery disease) ([facility]) Status post angioplasty with stent Type 2 diabetes mellitus 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 ([facility]) Type 2 diabetes mellitus with hyperglycemia, with long-term current use of insulin ([facility]) Vitamin D deficiency Weakness of both legs Acute on chronic heart failure with preserved ejection fraction ([facility]) Acute respiratory failure with hypoxia and hypercapnia ([facility]) Diminished pulses in lower extremity Former smoker Left leg pain New onset atrial fibrillation ([facility]/HCC) Trochanteric bursitis of both hips Bradycardia GI bleed Sinus node dysfunction ([facility]) Balance disorder 06/13/24 1354 PT Last Visit PT Received On 06/13/24 General Subjective Pt has been cleared medically by nursing staff to receive therapy services. Nursing informed investment underwriter that pt is going to be getting discharged today to his home See details of treatment session below: Activity Tolerance Endurance Stage III Precautions Medical Precautions hardwire telemetry Post-Surgical Precautions pacemaker precautions (bifold handout given to pt's and him pt and his educated on the pacemaker precautions on the bifold handout .) Pain Assessment Pain Assessment No/denies pain Cognition Orientation Level Oriented X4 Therapeutic Activity Therapeutic Activity 1 investment underwriter was able to get clarification from cardiology physician surgeon assistant on use of a assistive device if pt needed one , she cleared that pt could use one . Stage Set Designer also clarified about pt wearing the sling , pt's thought pt had to leave it on for 14 days because she said that is what the surgeon had told her . Cardiology PA Sarah , clarified that the sling can come off during the day time and pt can use his LUE to feed himself but he has to be mindful not to use it to transfer and raise it over his head or above shoulder height . Therapeutic Activity 2 Stage Set Designer went over 2 page dre elizabeth with pt's and highlighted education areas . and taught pt s' that the sling can come off and is not to be on for 14 days Static Sitting Balance Static Sitting-Balance Support Feet supported Static Sitting-Level of Assistance Independent Static Sitting-Comment/Number of Minutes no LOB Static Standing Balance Static Standing-Balance Support No upper extremity supported Static Standing-Level of Assistance Contact guard;Close supervision Static Standing-Comment/Number of Minutes pt inconsistently performing between these two assistance levels. Dynamic Standing Balance Dynamic Standing-Balance Support No upper extremity supported Dynamic Standing-Balance (walking the hallways 320 ft x 1 and second walk was 160 ft x 1) Dynamic Standing Balance-Level of Assistance Close supervision;Contact guard Dynamic Standing-Comments pt inconsistently performing between these two assistance levels. Ambulation Ambulation Yes Ambulation 1 Surface 1 Level tile Device 1 No device Assistance 1 Contact guard;Close supervision Quality of Gait 1 pt had good stance and swing phase of gait , less of a drift seen today to the left side Comments/Distance (ft) 1 320 ft x 1 , pt's had to walk with pt for the second part of the walk for 150 ft x 1 , pt ambulated a total of 320 ft x 1 Ambulation 2 Surface 2 Level tile Assistance 2 Close supervision;Distant supervision (pt inconsistently performing between these two assistance levels.) Comments/Distance (ft) 2 160 ft x 1 Stairs Stairs Yes Stairs Rails 1 Right (to simulate rail at home) Assistance 1 Contact guard;Close supervision (pt inconsistently performing between these two assistance levels.) Quality of Stairs 1 7 1/2 step height to simulate step at home Comment/Number of Steps 1 3 steps Bed Mobility Bed Mobility Yes Bed Mobility 1 Bed Mobility From 1 Supine Bed Mobility Type 1 To Bed Mobility to 1 Short sit Level of Assistance 1 Independent Bed Mobility Comments 1 with pt ge (more content not included)...[facility]11-24-2024 NoteOccupational Therapy Occupational Therapy Evaluation Patient Name: Ila Morejon Today's Date: 06/13/2024 Admit Date: 06/09/2024 Time In: 1310 Time Out: 1335 Cumulative minutes: 25 minutes Billed minutes: 25 minutes Intervention time breakdown: Eval 15 minutes. Self care: 10 minutes. History of present illness Patient is a 78 y.o. male admit with N/V. Decreased HGB. Found UGI bleed. Pacer placed 06/11 for bradycardia. Activity: per RN, ok to see patient. Activity orders: activity as tolerated. Patient agreeable to therapy. At end of session patient with call light in reach and resting comfortably in bedside chair. PMH/PSH per chart Patient Active Problem List Diagnosis Abnormal result of cardiovascular function study, unspecified Asymptomatic bradycardia Atherosclerotic heart disease of [place] coronary artery without angina pectoris Benign essential HTN Benign essential tremor Bilateral carotid artery stenosis Change in voice CKD stage 3b, GFR 30-44 ml/min ([facility]) Claudication ([facility]) CLL (chronic lymphocytic leukemia) ([facility]) DDD (degenerative disc disease), lumbar Edema of both legs Encounter for long-term (current) use of medications Hoarseness Hyperlipidemia Hypertension Large granular lymphocytosis Lumbar radiculopathy Normal pressure hydrocephalus ([facility]) NSTEMI (non-ST elevated myocardial infarction) ([facility]) Obstructive sleep apnea Overweight (BMI 25.0-29.9) PAD (peripheral artery disease) ([facility]) Status post angioplasty with stent Type 2 diabetes mellitus 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 ([facility]) Type 2 diabetes mellitus with hyperglycemia, with long-term current use of insulin ([facility]) Vitamin D deficiency Weakness of both legs Acute on chronic heart failure with preserved ejection fraction ([facility]) Acute respiratory failure with hypoxia and hypercapnia ([facility]) Diminished pulses in lower extremity Former smoker Left leg pain New onset atrial fibrillation ([facility]) Trochanteric bursitis of both hips Bradycardia GI bleed Sinus node dysfunction ([facility]) Past Medical History: Diagnosis Date Carotid artery stenosis Chronic kidney disease Coronary artery disease Diabetes mellitus ([facility]) Hyperlipidemia Hypertension Myocardial infarction ([facility]) PAD (peripheral artery disease) ([facility]) Past Surgical History: Procedure Laterality Date CARDIAC CATHETERIZATION CHOLECYSTECTOMY CORONARY STENT PLACEMENT PERIPHERAL ARTERIAL STENT GRAFT Precautions Pacer-sling Left UE. No left shldr flex or abd greater than 90 degrees. No lifting greater than 10 #. Pt is left handed. Prior level of function Gait: ambulates household distances with no assistive device and uses no assistive device for community distances. . Vision: glasses. Hearing: WNL. ADLs: independent with bathing, dressing, eating. IADLS: independent cooking, cleaning, laundry. Transportation: drives. Home set-up Patient lives with spouse in a 2 story home with 2 steps to enter with 1 handrail. Bedroom location: upstairs however patient able to stay on 1st floor set-up temporarily. Bathroom location: 1st floor full bath with tub/shower combination. Support system Resides with . Objective Assessment Pain No c/o pain. Vitals: On room air, no distress. Hearing WNL. Communication WNL. Vision glasses. Orientation Patient alert and oriented x4.. Cognition WNL. Follows commands: All independently. Safety awareness: Good. Discussed pacer precautions with pt and . Activities of Daily Living OCCUAPTIONAL PERFORMANCE I Mod I SBA Min A Mod A Max A D NT Comments Eating X Grooming X UB Dressing X LB Dressing X Bathing X Toileting X Bed Mobility X Pt in bedside chair. Transfers X Toilet Transfers X Reports no difficulty to/from toilet. Has ambulated in hallway. I = Independent Mod I = Modified Independent SBA = Stand by / Setup Min A = Minimal Assist Mod A = Moderate Assist Max A = Maximum Assist D = Dependent NT = Not Tested Upper Extremity ROM: Left shldr NT due to pacer precautions. Right UE WNL. Strength UE strength: Left UE NT, Right WNL. LE strength: WNL. Hand Dominance Left. Coordination UE: Fine WNL. Left gross limited due to pacer precautions and sling to remind. LE: WNL. Edema: None noted Sensation Intact. Mobility Endurance Fair +. Balance Sitting static:Good Sitting dynamic: Good Standing static: Good- Standing dynamic: Good- Posture Sitting: WNL Standing: WNL Self Care HEP: 10 min. Reviewed pacer precautions with ADL. Instructed on left elb and hand AROM outside of sling. Encouraged sling all time as pt is left handed. present during discussion. Outcome Assessments AM-PAC 6 Clicks Putting on and taking off regular lower body clothing?: A Little (Min Assist/Contact Guard/Supervision) (more content not included)...[facility]11-24-2024 NoteHospital Medicine Discharge Summary Final Discharge Diagnosis: Acute UGI bleeding - resolved, 2/2 duodenitis. CAD s/p stent to RCA Paroxysmal afib Hyperkalemia RIAN on CKD Admission Diagnosis: GI bleed [K92.2] Hospital course: Ila Morejon is a 78 y.o. male with a known past medical history significant for coronary artery disease s/p PCI placement on 04/28/24 at [facility] [place] and is on aspirin and Plavix for that, A-fib on Xarelto at home, hypertension and diabetes was transferred to the hospital from an outside ER due to abnormal hemoglobin level of 7.8. Patient mentioned that he was feeling more fatigued, tired, short of breath and cold over the last few days up to a week. Therefore, he went to an outside ER where his hemoglobin was found to be 7.8 g/dL. Baseline is known to be around 12 g/dL last month. Patient endorses black tarry stools for the last week. Denies any abdominal pain, nausea or vomiting. No hematochezia. No coffee-ground emesis or hematemesis. Patient denies taking NSAIDs but he is on aspirin, Plavix and DOAC. Was previously taking Eliquis but was switched to Xarelto d/t insurance coverage. Upon admission: Patient is bradycardic with heart rate in the range of 30s-40s. Afebrile and normotensive. CBC is remarkable for a hemoglobin of 8.9. WBC of 15.83. CMP remarkable for creatinine of 1.36. Otherwise unremarkable. GI service was consulted for GI bleed. Cardiology was consulted and recommended continue ASA and plavix and stop DOAC. Had urgently placed DC PPM on 06/[address] Martell. EGD on 06/11 found erosive gastritis and duodenitis. G Acute UGI bleeding - resolved, 2/2 erosive gastritis/duodenitis which was shown on EGD. continue PPI pantoprazole 40mg BID. CAD s/p stent to RCA- continue aspirin/plavix Paroxysmal afib previously on Xarelto - [id number] of 4. Xarelto currently held. After extensive discussion, patient decided he would prefer to maintain aspirin/plavix and continue to hold Xarelto given his previous bleeding. He has completed his 4 weeks of triple therapy but at this point would prefer to be monitored remotely and w office device checks and stay off DOAC per his preference. Has PPM check on 06/[address] Cardona. - Repeat BMP/CBC in 3 to 5 days. Hyperkalemia - resolved RIAN on CKD - resolved Surgical, Invasive or Diagnostic Procedures Done During Admission: EGD and Pacemaker/ICD implantation Consultations During Admission: Cardiology and Gastroenterology Dear Dr. Stanton MD, Ila is advised to follow up with you within 1-2 weeks. Items to follow up in ambulatory setting: Follow-up serial CBCs Follow-up with: Cardiology and Gastroenterology Scheduled appointments: Future Appointments Date Time Provider Department Center 06/21/2024 10:00 AM Hao Cardona MD [facility] 06/22/2024 1:00 PM Samantha Macdonald NP [facility] Your medication list START taking these medications Instructions Last Dose Given Next Dose Due aspirin 81 mg EC tablet Start taking on: June 14, 2024 Replaces: aspirin 81 mg chewable tablet Take 1 tablet (81 mg) by mouth in the morning. Change from chewables to safety coated 81mg daily carvedilol 3.125 mg tablet Commonly known as: Coreg Take 1 tablet (3.125 mg) by mouth two times daily. CHANGE how you take these medications Instructions Last Dose Given Next Dose Due losartan 50 mg tablet Commonly known as: Cozaar What changed: additional instructions Take 1 tablet (50 mg) by mouth once daily as directed. RESUME TAKING ON 06/14/24 rosuvastatin 40 mg tablet Commonly known as: Crestor What changed: Another medication with the same name was removed. Continue taking this medication, and follow the directions you see here. CONTINUE taking these medications Instructions Last Dose Given Next Dose Due amLODIPine 10 mg tablet Commonly known as: Norvasc bumetanide 1 mg tablet Commonly known as: Bumex Take 1 tablet (1 mg) by mouth in the morning. CENTRUM SILVER ULTRA MEN'S ORAL cholecalciferol 25 MCG (1000 units) tablet Commonly known as: Vitamin D-3 clopidogrel 75 mg tablet Commonly known as: Plavix clopidogrel 75 mg tablet Commonly known as: Plavix Start taking on: April 12, 2024 Take 4 tablets (300 mg) by mouth in the morning for 1 day, THEN 1 tablet (75 mg) in the morning. coenzyme Q-10 100 mg capsule gabapentin 300 mg capsule Commonly known as: Neurontin insulin glargine 100 unit/mL injection vial Commonly known as: Lantus magnesium 250 mg tablet metFORMIN 500 mg tablet Commonly known as: Glucophage potassium gluconate 595 mg (99 mg) tablet extended release primidone 50 mg tablet Commonly known as: Mysoline STOP taking these medications apixaban 5 mg tablet Commonly known as: Eliquis aspirin 81 mg chewable tablet Replaced by: aspirin 81 mg EC tablet Brilinta 90 mg tablet Generic drug: ticagrelor lisinopril 20 mg tablet rivaroxaban 20 (more content not included)...[facility] 06-13-2024 NoteCardiology Inpatient Progress Note Subjective Subjective: 06/11/24 Ila Morejon is a 78 y.o. male who was seen at bedside this am. He underwent PPM placement this morning and is now doing well, some soreness around incision site. Denies chest pain, shortness of breath, swelling, lightheadedness or dizziness. Incision is CDI. 06/12/24 Up in chair, wants to go home, denies CP, SOB, dizziness/LH, palpitations, any GI or other bleeding, does not appear to have much insight in to medical issues or recent events. Minimal tenderness left pectoral incision, reviewed lifting/bathing/driving/rom restrictions which will print with his AVS. 06/13/24 Met with patient and at bedside. Up to bathroom with no lightheadedness or dizziness, and had brown bowel movement yesterday, very much wants to go home. He denies any exertional dyspnea, chest discomfort. Discussed risks, benefits and alternatives to oral anticoagulation with Xarelto, Eliquis or warfarin. Discussed reason for being on OAC with 4%/year risk of CVA due to paroxysmal atrial fibrillation. Discussed option of aspirin with Plavix and watchful waiting with pacemaker monitoring, but that is not a guarantee of adequate notice that he is at higher risk for stroke. Also recommended strongly that he obtain safety coated aspirin instead of chewable aspirin for GI protection. After discussion, with shared decision making, patient's preference is to not take Xarelto or OAC, and take aspirin and Plavix, watching closely for any signs of bleeding. I discussed quite frankly that he can make a different choice at another time and let his reduction furnace operator helper know. Also discussed usual range of motion, lifting restrictions and bathing restrictions after pacemaker. He is wearing his sling. Questions answered. Written information will print with his after visit summary. He has home blood pressure machine and scales at home, willing to monitor himself at home and have follow-up labs done later in the week. TELEMERY: 100% a-paced Objective Allergies Allergen Reactions Brilinta [Ticagrelor] Other Scheduled meds amLODIPine, 10 mg, oral, Daily aspirin, 81 mg, oral, Daily bumetanide, 1 mg, oral, Daily carvedilol, 3.125 mg, oral, BID cholecalciferol, 2,000 Units, oral, Daily clopidogrel, 75 mg, oral, Daily gabapentin, 300 mg, oral, TID insulin glargine, 35 Units, subcutaneous, q AM insulin lispro, 0-5 Units, subcutaneous, q6h SHLOMO [Held by provider] losartan, 50 mg, oral, Daily magnesium oxide, 200 mg, oral, Daily nitroglycerin, 1 patch, transdermal, Daily pantoprazole, 40 mg, oral, BID AC primidone, 50 mg, oral, Daily rosuvastatin, 20 mg, oral, q PM sodium zirconium cyclosilicate, 10 g, oral, BID PRN medications: acetaminophen, glucose OR dextrose 50 % in water (D50W), melatonin, ondansetron ODT OR ondansetron Objective: Patient Vitals for the past 24 hrs: BP Temp Temp src Pulse Resp SpO2 Weight 06/13/24 1200 -- 36.6 ???C (97.9 ???F) Temporal -- -- -- -- 06/13/24 0800 158/67 36.9 ???C (98.4 ???F) Temporal 60 15 95 % -- 06/13/24 0455 -- -- -- 60 18 94 % 68.3 kg (150 lb 9.6 oz) 06/13/24 0400 153/55 -- -- 60 15 93 % -- 06/13/24 0307 -- -- -- -- -- 97 % -- 06/13/24 0005 144/54 36.4 ???C (97.5 ???F) Temporal 60 22 94 % -- 06/12/24 2200 154/54 -- -- 60 13 96 % -- 06/12/242014 133/62 36.4 ???C (97.5 ???F) Temporal 60 14 91 % -- 06/12/24 1620 145/59 36.7 ???C (98.1 ???F) Temporal 60 18 95 % -- 06/12/24 1300 -- 36.6 ???C (97.9 ???F) Temporal -- 18 -- -- Physical exam: BP 158/67 (BP Location: Left arm, Patient Position: Lying) Pulse 60 Temp 36.6 ???C (97.9 ???F) (Temporal) Resp 15 Ht 1.727 m (5' 8 ) Wt 68.3 kg (150 lb 9.6 oz) SpO2 95% BMI 22.90 kg/m??? General: Alert, appropriate mood / affect. NAD Eyes: anicteric sclera. Non-injected conjunctiva. No xanthelasmas Neck: No elevated JVP. No carotid bruit Pulm: no increased effort of breathing. Breath sounds CTA bilaterally with no wheeze, rhonchi or rales. Cards: HRRR , NL S1, S2. No S3 or S4 gallop. Murmur: none Abd: Soft, Nontender, physiologic bowel sounds are present Extr: Lower extremity edema: none. DP pulses present bilaterally Skin: warm, dry, well perfused Neuro: A&Ox3, No gross deficits Psych: appropriate mood, affect. Relevant Lab Results Labs: Lab Results Component Value Date GLUCOSE 195 (H) 06/13/2024 CALCIUM 8.5 (L) 06/13/2024 NA 135 (L) 06/13/2024 K 4.7 06/13/2024 CO2 26 06/13/2024 CL 107 06/13/2024 BUN 25 06/13/2024 CREATININE 1.53 (H) 06/13/2024 AST 15 06/10/2024 ALT 9 06/10/2024 ALBUMIN 3.4 (L) 06/10/2024 Lab Results Component Value Date TROPONIN I 0.02 06/11/2024 No results found for: CHOL No results found for: HDL No results found for: LDLCALC No results found for: LDLDIRECT No results found for: LDL CHOLESTEROL No results found for: TRIG No components found for: CHOLHDL No re (more content not included)...[facility] 06-13-2024 NoteUT Teaching GI Service Consult Gastroenterology/Hepatology Progress Note IDENTIFYING DATA PATIENT: Ila Morejon ADMIT DATE: 06/09/2024 TIME OF EVALUATION: 06/13/2024 8:16 AM HOSPITAL STAY: LOS: 4 days REASON FOR HOSPITALIZATION: Anemia SUBJECTIVE/INTERVAL HISTORY Ila Morejon's overnight events were reviewed. Hgb 8.6 from 9.4, patient reports that he had a brown BM yesterday evening, tolerating breakfast well. OBJECTIVE MEDICATIONS SCHEDULED: @MEDSCURRENTMD@ PRNs: acetaminophen, 650 mg, q6h PRN glucose, 24 g, q15 min PRN Or dextrose 50 % in water (D50W), 25 g, q15 min PRN melatonin, 5 mg, Nightly PRN ondansetron ODT, 4 mg, q8h PRN Or ondansetron, 4 mg, q6h PRN Physical VITALS: BP 158/67 (BP Location: Left arm, Patient Position: Lying) Pulse 60 Temp 36.9 ???C (98.4 ???F) (Temporal) Resp 15 Ht 1.727 m (5' 8 ) Wt 68.3 kg (150 lb 9.6 oz) SpO2 95% BMI 22.90 kg/m??? GEN: Alert and oriented x3, NAD HEENT: Atraumatic, normocephalic CV: No edema visualized PULM: Respirations even and unlabored ABD: Soft, non-tender, non-distended NEURO: Moves all 4 extremities spontaneously, answers questions appropriately LABS AND IMAGING CBC: Lab Results Component Value Date WBC 14.79 (H) 06/13/2024 RBC 2.86 (L) 06/13/2024 HGB 8.6 (L) 06/13/2024 HCT 25.8 (L) 06/13/2024 MCV 90.2 06/13/2024 RDW 12.8 06/13/2024 PLT 157 06/13/2024 CMP: Lab Results Component Value Date NA 135 (L) 06/13/2024 K 4.7 06/13/2024 CL 107 06/13/2024 CO2 26 06/13/2024 BUN 25 06/13/2024 IMAGING: EGD 06/11/2024: Erosive gastritis and duodenitis ASSESSMENT AND PLAN Ila Morejon is a 78 y.o. male Ila Morejon is a 78 y.o. male with a known past medical history significant for coronary artery disease s/p PCI placement last month on aspirin and Plavix for that, A-fib on Xarelto at home, hypertension and diabetes was transferred to the hospital from an outside ER due to abnormal hemoglobin level of 7.8. Patient mentioned that he was feeling more fatigued, tired, short of breath and cold over the last few days up to a week. Therefore, he went to an outside ER where his hemoglobin was found to be 7.8 g/dL. Baseline is known to be around 12 g/dL last month. Patient endorses black tarry stools for the last week. Denies any abdominal pain, nausea or vomiting. No hematochezia. No coffee-ground emesis or hematemesis. Patient denies taking NSAIDs but he is on aspirin, Plavix and DOAC. Upon admission: Patient is bradycardic with heart rate in the range of 30s-40s. Afebrile and normotensive. CBC is remarkable for a hemoglobin of 8.9. WBC of 15.83. CMP remarkable for creatinine of 1.36. Otherwise unremarkable. GI service was consulted for GI bleed. Assessment Melena with acute blood loss anemia EGD with erosive gastritis and duodenitis On aspirin, Plavix and Eliquis/Xarelto at home. Denies taking NSAIDs. Presented with hemoglobin of 7.8 g/dL. Coronary artery disease s/p PCI last month. On aspirin and Plavix at home. A-fib on Eliquis at home. Was on Eliquis then switched to Xarelto recently. Bradycardia Cardiology on board planning for permanent pacemaker probably on Friday. Plan Continue protonix 40 mg BID Trend H&H and monitor for overt GI bleeding, transfuse as needed OK for regular diet as tolerated from GI standpoint Recommend discussing the risks and benefits of resuming anticoagulation therapy in the context of recent GI bleed and anemia; defer initiation decision to the prescribing physician. If the patient re-bleeds, consider colonoscopy for further investigation. GI will respectfully sign off; however, we are readily available if additional questions or concerns arise. We will arrange for outpatient follow up in the GI clinic. The case will be discussed with the attending physician For Questions please contact us at: [place] [facility] 6 am to 4 pm weekdays in house Phone extension: [phone] 4 pm to 6 am or weekends please contact the fiber product cutting machine operator to page the fellow coroner [facility]11-23-2024 NoteCardiology Inpatient Progress Note Subjective Subjective: 06/11/24 Ila Morejon is a 78 y.o. male who was seen at bedside this am. He underwent PPM placement this morning and is now doing well, some soreness around incision site. Denies chest pain, shortness of breath, swelling, lightheadedness or dizziness. Incision is CDI. 06/12/24 Up in chair, wants to go home, denies CP, SOB, dizziness/LH, palpitations, any GI or other bleeding, does not appear to have much insight in to medical issues or recent events. Minimal tenderness left pectoral incision, reviewed lifting/bathing/driving/rom restrictions which will print with his AVS. TELEMERY: 100% paced Objective Allergies Allergen Reactions Brilinta [Ticagrelor] Other Scheduled meds amLODIPine, 10 mg, oral, Daily aspirin, 81 mg, oral, Daily [Held by provider] bumetanide, 1 mg, oral, Daily cholecalciferol, 2,000 Units, oral, Daily clopidogrel, 75 mg, oral, Daily gabapentin, 300 mg, oral, TID [Held by provider] insulin glargine, 52 Units, subcutaneous, q AM insulin lispro, 0-5 Units, subcutaneous, q6h SHLOMO [Held by provider] losartan, 50 mg, oral, Daily magnesium oxide, 200 mg, oral, Daily nitroglycerin, 1 patch, transdermal, Daily pantoprazole, 40 mg, intravenous, q12h SHLOMO primidone, 50 mg, oral, Daily rosuvastatin, 20 mg, oral, q PM sodium chloride, 250 mL, intravenous, Once PRN medications: acetaminophen, glucose OR dextrose 50 % in water (D50W), melatonin, ondansetron ODT OR ondansetron Objective: Patient Vitals for the past 24 hrs: BP Temp Temp src Pulse Resp SpO2 Weight 06/12/24 0740 119/50 -- -- 60 21 95 % -- 06/12/24 0447 -- -- -- -- -- -- 71.2 kg (156 lb 15.5 oz) 06/12/24 0400 133/63 -- -- 60 10 98 % -- 06/12/24 0300 131/59 -- -- 60 15 96 % -- 06/12/24 0200 118/58 -- -- 60 12 97 % -- 06/12/24 0100 135/60 -- -- 60 12 98 % -- 06/12/24 0000 119/52 -- -- 60 11 96 % -- 06/11/24 2300 (!) 130/47 -- -- 60 11 95 % -- 06/11/24 2200 135/52 -- -- 60 21 90 % -- 06/11/24 2136 -- -- -- -- -- 97 % -- 06/11/24 2100 127/51 -- -- 60 11 97 % -- 06/11/24 1915 (!) 116/44 36.3 ???C (97.3 ???F) Temporal 62 12 91 % -- 06/11/24 1707 154/59 36.8 ???C (98.3 ???F) Temporal 60 14 93 % -- 06/11/24 1650 143/70 -- -- 60 16 96 % -- 06/11/24 1635 151/57 -- -- 60 15 93 % -- 06/11/24 1620 150/62 -- -- 60 23 95 % -- 06/11/24 1605 119/54 37 ???C (98.6 ???F) Temporal 60 10 100 % -- 06/11/24 1506 148/57 -- -- 61 15 95 % -- 06/11/24 1505 -- 36.5 ???C (97.7 ???F) Tympanic -- -- -- -- 06/11/24 1222 123/63 35.9 ???C (96.6 ???F) Temporal 60 13 95 % -- 06/11/24 1055 168/59 -- -- -- -- -- -- 06/11/24 1029 161/63 -- -- 60 18 100 % -- Physical exam: BP 119/50 Pulse 60 Temp 36.3 ???C (97.3 ???F) (Temporal) Resp 21 Ht 1.727 m (5' 8 ) Wt 71.2 kg (156 lb 15.5 oz) SpO2 95% BMI 23.87 kg/m??? General: Alert, appropriate mood / affect. NAD Eyes: anicteric sclera. Non-injected conjunctiva. No xanthelasmas Neck: No elevated JVP. No carotid bruit Pulm: no increased effort of breathing. Breath sounds CTA bilaterally with no wheeze, rhonchi or rales. Cards: HRRR , NL S1, S2. No S3 or S4 gallop. Murmur: none Abd: Soft, Nontender, physiologic bowel sounds are present Extr: Lower extremity edema: none. DP pulses present bilaterally Skin: warm, dry, well perfused Neuro: A&Ox2, No gross deficits Psych: appropriate mood, affect. Relevant Lab Results Labs: Lab Results Component Value Date GLUCOSE 178 (H) 06/12/2024 CALCIUM 8.3 (L) 06/12/2024 NA 135 (L) 06/12/2024 K 5.2 (H) 06/12/2024 CO2 22 06/12/2024 CL 108 (H) 06/12/2024 BUN 26 (H) 06/12/2024 CREATININE 1.76 (H) 06/12/2024 AST 15 06/10/2024 ALT 9 06/10/2024 ALBUMIN 3.4 (L) 06/10/2024 Lab Results Component Value Date TROPONIN I 0.02 06/11/2024 No results found for: CHOL No results found for: HDL No results found for: LDLCALC No results found for: LDLDIRECT No results found for: LDL CHOLESTEROL No results found for: TRIG No components found for: CHOLHDL No results found for: TSH , O3CCFCH , [id number] , THYROIDAB No results found for: TSH No results found for: BNP , PRO BNP No results found for: HGBA1C Lab Results Component Value Date CREATININE 1.76 (H) 06/12/2024 CREATININE 1.61 (H) 06/11/2024 CREATININE 1.22 06/10/2024 Last lab values have been reviewed with patient at today's visit. Encounter Date: 06/09/24 ECG 12 lead Result Value Ventricular Rate 38 Atrial Rate 38 NE Interval 160 QRS DURATION 120 QT Interval 522 QTC CALCULATION(BAZETT) 414 R-[place] 73 T Wave [place] -54 Impression Marked sinus bradycardia with Premature atrial complexes Intra-ventricular conduction delay T wave abnormality, consider inferior ischemia Abnormal ECG When compared with ECG of 10-JUN-2024 08:56, Premature atrial complexes are now Present Minimal criteria for Inferior infarct are no (more content not included)...[facility] 06-12-2024 NoteHospital Medicine Daily Progress Note - 06/12/2024 9:34 AM; Room: [facility] Admission: 06/09/2024 3:11 PM; Length of stay: 3 days THE HOSPITALIST TEAM PREFERS TO USE [employer] FOR NON-URGENT COMMUNICATION 7AM-7PM. IF I DO NOT RESPOND WITHIN 20 MINUTES OR URGENT MATTERS, PLEASE CALL THROUGH THE FLIGHT SURGEON. FROM 7PM-7AM, PLEASE PAGE [phone](COVR). Code Status: Full Code Barriers to Discharge: Renal dysfunction Expected Discharge Date: 06/12 vs 06/13 Discharge Destination: home Overview Patient is seen for evaluation and management of GI bleeding. Subjective Ila Morejon was seen and examined at bedside. No current nursing concerns or overnight events. Patient denies CP, SOB, N/V/D/C, fever, chills, or abdominal pain. Doing well today. No further bleeding. Renal fxn worsening. Physical Exam Visit Vitals BP 119/50 Pulse 60 Temp 36.3 ???C (97.3 ???F) (Temporal) Resp 21 Intake/Output Summary (Last 24 hours) at 06/12/2024 0934 Last data filed at 06/12/2024 0929 Gross per 24 hour Intake 1610.52 ml Output 726 ml Net 884.52 ml Physical Exam Vitals and nursing note reviewed. Constitutional: Appearance: Normal appearance. He is normal weight. HENT: Head: Normocephalic. Nose: Nose normal. Mouth/Throat: Mouth: Mucous membranes are moist. Eyes: Pupils: Pupils are equal, round, and reactive to light. Cardiovascular: Rate and Rhythm: Normal rate and regular rhythm. Pulses: Normal pulses. Heart sounds: Normal heart sounds. No murmur heard. No friction rub. No gallop. Pulmonary: Effort: Pulmonary effort is normal. Breath sounds: Normal breath sounds. Abdominal: General: Abdomen is flat. Bowel sounds are normal. Palpations: Abdomen is soft. Musculoskeletal: General: Normal range of motion. Cervical back: Normal range of motion. Skin: General: Skin is warm. Capillary Refill: Capillary refill takes less than 2 seconds. Neurological: General: No focal deficit present. Mental Status: He is alert and oriented to person, place, and time. Psychiatric: Mood and Affect: Mood normal. Behavior: Behavior normal. Judgment: Judgment normal. Estimated body mass index is 23.87 kg/m??? as calculated from the following: Height as of this encounter: 1.727 m (5' 8 ). Weight as of this encounter: 71.2 kg (156 lb 15.5 oz). Active Inpatient Problems Principal Problem: GI bleed Active Problems: Sinus node dysfunction (CMS/HCC) Assessment and Plan Acute UGI bleeding - resolved, 2/2 duodenitis. continue PPI IV BID CAD s/p stent to RCA- continue aspirin/plavix Paroxysmal afib on Xarelto - [id number] of 4. Xarelto currently held. Plan to hold until 4 week adam when DAPT is no longer necessary. At this point would prefer to resume Eliquis given evidence of lower risk of GI bleeding. -Discussed risk and benefit with patient at length. Discussed possibility of heparin challenge. Currently he has a 5 to 10% risk of stroke/systemic embolism without anticoagulation. Patient would prefer to avoid triple therapy and to consider resuming Eliquis/Xarelto once aspirin is no longer necessary. Hyperkalemia - 250cc bolus, repeat BMP this evening. Hold losartan RIAN on CKD - likely in part 2/2 NPO status yesterday. Will follow up bolus this evening. Case discussed with Dr. Dominguez who is in agreement with plan. Nutrition Screen: Malnutrition Attestation: I attest to the following: I have personally seen this patient. The patient has been assessed for malnutrition as documentation above, and based on the criteria set by the Academy of Nutrition and Dietetics and the [place] [employer] of Enteral and Parenteral Nutrition, meets the diagnosis for malnutrition. A care plan has been established for this patient. VTE Prophylaxis: Contraindicated due to GI bleed Scheduled Meds amLODIPine, 10 mg, oral, Daily aspirin, 81 mg, oral, Daily [Held by provider] bumetanide, 1 mg, oral, Daily cholecalciferol, 2,000 Units, oral, Daily clopidogrel, 75 mg, oral, Daily gabapentin, 300 mg, oral, TID [Held by provider] insulin glargine, 52 Units, subcutaneous, q AM insulin lispro, 0-5 Units, subcutaneous, q6h SHLOMO [Held by provider] losartan, 50 mg, oral, Daily magnesium oxide, 200 mg, oral, Daily nitroglycerin, 1 patch, transdermal, Daily pantoprazole, 40 mg, intravenous, q12h SHLOMO primidone, 50 mg, oral, Daily rosuvastatin, 20 mg, oral, q PM Pertinent Investigations Hematology: Results from last 7 days Lab Units 06/12/24 0545 06/11/24 0503 06/10/242 06/09/241953 WBC AUTO 10*3/uL 15.42* 16.29* < > 15.83* HEMOGLOBIN g/dL 9.4* 9.0* < > 8.9* HEMATOCRIT % 28.3* 27.5* < > 26.7* MCV fL 89.8 92.0 < > 90.5 PLATELETS AUTO 10*3/uL 171 173 < > 166 INR -- -- -- 1.37* < > = values in this interval not displayed. Chemistry: Results from last 7 days Lab Units 06/12/24 0545 06/11/2450206/10/24451 SODIUM mmol/L 135* 137 136 POTASSIUM mmo (more content not included)...[facility] 06-12-2024 NotePhysical Therapy Evaluation Patient Name: Ila Morejon Today's Date: 06/12/2024 Admit Date: 06/09/2024 06/12/24 1519 PT Last Visit PT Received On 06/12/24 Plan Level of assist 1 assist PT Plan Skilled PT PT Frequency 1 time per day until discharge & PRN PT Discharge Recommendations With 24hr supervision;Home PT PT - Discharge Recommendations Placed Yes History of present illness Patient is a 78 y.o. male transferred from [facility] after presenting w/ black tarry stools, fatigue, 10# weight loss over several months, abdominal pain, nausea and vomiting. Recent NSTEMI w/ stenting of RCA. Bradycardia w/ pauses. 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 [employer] Social support spouse / significant other Home Set-Up: Patient lives with spouse in a 2 story home with 2 steps to enter Bedroom location: 2nd Bathroom location: 1st Additional DME/adaptive equipment: No device Pt left up in bedside chair, call light w/in reach, RN aware OBJECTIVE ASSESSMENT/PHYSICAL EXAM Cognition Flat affect Overall Cognitive Status: Impaired Arousal/Alertness: Delayed responses to stimuli Orientation Level: Oriented x4 Following Commands: Follows one-step commands with increased difficulty Safety Judgment: Decreased awareness of safety Awareness of Errors: Decreased awareness of errors made Attention Span: Attends with cues to redirect Problem Solving: Assistance required to identify errors made Communication: Intact Pain: Denies pain Sensation: Mild gaze preference to L, possible decreased depth perception Edema/Skin Appearance: WNL Coordination/Tone: WNL Precautions IV, telemetry, sling Pacemaker precautions per Cardiology Objective assessment Bed mobility Not performed Transfers Sit to stand: contact guard assist Gait Patient ambulates 150 feet, with No device, and moderate assist CGA to Min A to walk straight path in hallway w/ tendency to drift path to L Step length and height appear equal bilaterally, however L hip appears to abduct pulling pt to L Mod A on two occasions to avoid fall, both times w/ LOB toward L and failed righting reactions Patient denied numbness, tingling or visual issues during gait Stairs Not performed Endurance No SOB noted Vitals Stable/unchanged significantly; HR in 50s Balance Sitting: patient able to sit independently with both feet on ground, with 0 upper extremity assist. Standing: patient able to stand with no assistive device and contact guard assist Posture WNL ROM UE ROM: RUE WNL; LUE not tested LE ROM: WNL Strength Functional strength WFL: see functional mobility assessment Education Verbal, Written, Feedback during session, Functional mobility, Safety, and Progression/Return to prior level of activity No lifting L elbow higher than shoulder, no pushing/pulling or lifting greater than 10#, use of sling for comfort and to remind pt not to use LUE; return to driving per surgeon. Mobility 6-Click T-Score: 06/12/24 1500 6 Clicks (Mobility) Help from another person turning from your back to your side while in a flat bed without using bedrails 3 Help from another person moving from lying on your back to sitting on the side of a flat bed without using bedrails 3 Help from another person moving to and from a bed to a chair (including a wheelchair) 3 Help from another person standing up from a chair using your arms (e.g. wheelchair or bedside chair) 3 Help from another person to walk in hospital room 2 Help from another person climbing 3-5 steps with a railing 2 Mobility 6 Clicks T-Score 16 Assessment Patient will benefit from Skilled Physical Therapy Services due to demonstrating limited functional mobility secondary to balance, gait abilities, postural control/awareness, and generalized weakness, and multiple co-morbidities. These impairments limit the patient's ability to perform daily tasks including walking, performing basic ADLs, performing transfers. Skilled PT to address impairments and facilitate return to safe and prior level of mobility and functional tasks following hospitalization for upper GI bleed and placement of pacemaker Interventions Fall Prevention strategies, Dynamic Balance interventions, Gait Training, Education, and Functional Mobility; pacemaker education Plan PT Misc Disciplines: PT Patient will perform be (more content not included)...[facility] Consult Gastroenterology/Hepatology Progress Note IDENTIFYING DATA PATIENT: Ila Morejon ADMIT DATE: 06/09/2024 TIME OF EVALUATION: 06/12/2024 8:22 AM HOSPITAL STAY: LOS: 3 days REASON FOR HOSPITALIZATION: Anemia SUBJECTIVE/INTERVAL HISTORY Ila Morejon's overnight events were reviewed. Patient resting in a chair comfortably, denies overt GI bleeding. Hgb 9.4 from 9.0. EGD completed 06/11/2024 revealed erosive gastritis and duodenitis. OBJECTIVE MEDICATIONS SCHEDULED: @MEDSCURRENTMD@ PRNs: acetaminophen, 650 mg, q6h PRN glucose, 24 g, q15 min PRN Or dextrose 50 % in water (D50W), 25 g, q15 min PRN melatonin, 5 mg, Nightly PRN ondansetron ODT, 4 mg, q8h PRN Or ondansetron, 4 mg, q6h PRN Physical VITALS: BP 119/50 Pulse 60 Temp 36.3 ???C (97.3 ???F) (Temporal) Resp 21 Ht 1.727 m (5' 8 ) Wt 71.2 kg (156 lb 15.5 oz) SpO2 95% BMI 23.87 kg/m??? GEN: Alert and oriented x3, NAD HEENT: Atraumatic, normocephalic CV: No edema visualized PULM: Respirations even and unlabored ABD: Soft, non-tender, non-distended NEURO: Moves all 4 extremities spontaneously, answers questions appropriately LABS AND IMAGING CBC: Lab Results Component Value Date WBC 15.42 (H) 06/12/2024 RBC 3.15 (L) 06/12/2024 HGB 9.4 (L) 06/12/2024 HCT 28.3 (L) 06/12/2024 MCV 89.8 06/12/2024 RDW 12.9 06/12/2024 PLT 171 06/12/2024 CMP: Lab Results Component Value Date NA 135 (L) 06/12/2024 K 5.2 (H) 06/12/2024 CL 108 (H) 06/12/2024 CO2 22 06/12/2024 BUN 26 (H) 06/12/2024 PROT 5.2 (L) 06/10/2024 IMAGING: EGD 06/11/2024: Erosive gastritis and duodenitis ASSESSMENT AND PLAN Ila Morejon is a 78 y.o. male Ila Morejon is a 78 y.o. male with a known past medical history significant for coronary artery disease s/p PCI placement last month on aspirin and Plavix for that, A-fib on Xarelto at home, hypertension and diabetes was transferred to the hospital from an outside ER due to abnormal hemoglobin level of 7.8. Patient mentioned that he was feeling more fatigued, tired, short of breath and cold over the last few days up to a week. Therefore, he went to an outside ER where his hemoglobin was found to be 7.8 g/dL. Baseline is known to be around 12 g/dL last month. Patient endorses black tarry stools for the last week. Denies any abdominal pain, nausea or vomiting. No hematochezia. No coffee-ground emesis or hematemesis. Patient denies taking NSAIDs but he is on aspirin, Plavix and DOAC. Upon admission: Patient is bradycardic with heart rate in the range of 30s-40s. Afebrile and normotensive. CBC is remarkable for a hemoglobin of 8.9. WBC of 15.83. CMP remarkable for creatinine of 1.36. Otherwise unremarkable. GI service was consulted for GI bleed. Assessment Melena with acute blood loss anemia EGD with erosive gastritis and duodenitis Patient endorses 1 week history of melena. On aspirin, Plavix and Eliquis/Xarelto at home. Denies taking NSAIDs. Presented with hemoglobin of 7.8 g/dL. Baseline noted to be around 12 g/dL last month. Most likely secondary to upper GI bleed. Coronary artery disease s/p PCI last month. On aspirin and Plavix at home. A-fib on Eliquis at home. Was on Eliquis then switched to Xarelto recently. Bradycardia Cardiology on board planning for permanent pacemaker probably on Friday. Plan PPI IV BID Trend H&H and monitor for overt GI bleeding, transfuse as needed OK for regular diet as tolerated from GI standpoint Recommend discussing the risks and benefits of resuming anticoagulation therapy in the context of recent GI bleed and anemia; defer initiation decision to the prescribing physician. If the patient re-bleeds, consider colonoscopy for further investigation Medical management per primary The case will be discussed with the attending physician For Questions please contact us at: [place] [facility] 6 am to 4 pm weekdays in house Phone extension: [phone] 4 pm to 6 am or weekends please contact the fiber product cutting machine operator to page the fellow coroner [facility]11-22-2024 NotePatient: Ila Morejon Procedure Summary Date: 06/11/24 Room / Location: [facility] Main Operating Room Anesthesia Start: 1534 Anesthesia Stop: 1605 Procedure: EGD Diagnosis: Melena Scheduled Providers: Eulalia Bryson MD; Vinayak Vaughan MD Responsible Provider: Micheline Haines MD Anesthesia Type: MAC ASA Status: 4 Anesthesia Type: MAC Vitals Value Taken Time BP 151/57 06/11/24 1635 Temp 37 ???C (98.6 ???F) 06/11/24 1605 Pulse 60 06/11/24 1646 Resp 16 06/11/24 1646 SpO2 96 % 06/11/24 1646 Vitals shown include unfiled device data. Anesthesia Post Evaluation Patient location during evaluation: PACU Patient participation: complete - patient participated Level of consciousness: awake Pain management: adequate Multimodal analgesia pain management approach Airway patency: patent Cardiovascular status: acceptable Respiratory status: acceptable Hydration status: acceptable Patient is hemodynamically stable and is able to be discharged from PACU per anesthesia protocol. No notable events documented.[facility]11-22-2024 Note Patient: Ila Morejon Procedure Information Anesthesia Start Date/Time: 06/11/24 1534 Scheduled providers: Eulalia Bryson MD; Vinayak Vaughan MD Procedure: EGD Location: [facility] Main Operating Room Relevant Problems Anesthesia (+) Obstructive sleep apnea Cardio (+) Acute on chronic heart failure with preserved ejection fraction ([facility]) (+) Atherosclerotic heart disease of [place] coronary artery without angina pectoris (+) Benign essential HTN (+) Bilateral carotid artery stenosis (+) Hypertension (+) NSTEMI (non-ST elevated myocardial infarction) ([facility]) (+) New onset atrial fibrillation ([facility]) (+) PAD (peripheral artery disease) ([facility]) (+) Sinus node dysfunction ([facility]) (+) Type 2 diabetes mellitus 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 ([facility]) Endo (+) Type 2 diabetes mellitus 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 ([facility]) (+) Type 2 diabetes mellitus with hyperglycemia, with long-term current use of insulin ([facility]) /Renal (+) CKD stage 3b, GFR 30-44 ml/min ([facility]) Other (+) CLL (chronic lymphocytic leukemia) ([facility]) Clinical information reviewed: Tobacco Allergies Meds Med Hx Surg Hx Fam Hx Soc Hx Physical Exam Airway Mallampati: II TM distance: >3 FB Neck ROM: full Cardiovascular - normal exam Rhythm: regular Rate: normal Dental (+) lower dentures, upper dentures Pulmonary (+) decreased breath sounds Abdominal - normal exam Other findings: Had pacemaker placed this morning for significant bradycardia, HR in the 20's Had stents placed within last year DM Type 2 on insulin Leukemia Anesthesia Plan ASA 4 MAC The patient is not a current smoker. Education provided regarding risk of obstructive sleep apnea. intravenous induction Anesthetic plan and risks discussed with patient and spouse. Plan discussed with CAA. [facility] Hospital Medicine Daily Progress Note - 06/11/2024 12:11 PM; Room: [address] [place] [address] Admission: 06/09/2024 3:11 PM; Length of stay: 2 days THE HOSPITALIST TEAM PREFERS TO USE [employer] FOR NON-URGENT COMMUNICATION 7AM-7PM. IF I DO NOT RESPOND WITHIN 20 MINUTES OR URGENT MATTERS, PLEASE CALL THROUGH THE FLIGHT SURGEON. FROM 7PM-7AM, PLEASE PAGE [phone](COVR). Code Status: Full Code Barriers to Discharge: GI bleed Expected Discharge Date: 2 days Discharge Destination: Home Overview Patient is seen for evaluation and management of posthemorrhagic anemia. Subjective Status post permanent pacemaker placement hemoglobin 9 WBC 16.29 has history of chronic lymphocytic leukemia afebrile no dyspnea no dizziness lightheadedness Physical Exam Visit Vitals BP 168/59 Pulse 60 Temp 35.1 ???C (95.2 ???F) (Temporal) Resp 18 Intake/Output Summary (Last 24 hours) at 06/11/2024 1211 Last data filed at 06/11/2024 1029 Gross per 24 hour Intake 622.34 ml Output 1025 ml Net -402.66 ml Physical Exam Vitals reviewed. Constitutional: Appearance: Normal appearance. HENT: Head: Normocephalic and atraumatic. Nose: Nose normal. Mouth/Throat: Mouth: Mucous membranes are moist. Pharynx: Oropharynx is clear. Eyes: Extraocular Movements: Extraocular movements intact. Conjunctiva/sclera: Conjunctivae normal. Pupils: Pupils are equal, round, and reactive to light. Cardiovascular: Rate and Rhythm: Normal rate and regular rhythm. Pulmonary: Effort: Pulmonary effort is normal. Breath sounds: Normal breath sounds. Abdominal: General: Abdomen is flat. Bowel sounds are normal. Palpations: Abdomen is soft. Musculoskeletal: General: Normal range of motion. Cervical back: Normal range of motion and neck supple. Skin: General: Skin is warm and dry. Capillary Refill: Capillary refill takes less than 2 seconds. Neurological: Mental Status: He is alert. Mental status is at baseline. Psychiatric: Behavior: Behavior normal. Estimated body mass index is 23.78 kg/m??? as calculated from the following: Height as of this encounter: 1.727 m (5' 8 ). Weight as of this encounter: 70.9 kg (156 lb 6.4 oz). Active Inpatient Problems Principal Problem: GI bleed Active Problems: Sinus node dysfunction (CMS/HCC) Assessment and Plan Posthemorrhagic anemia on Protonix GI seen patient plan for EGD hemoglobin hematocrit Bradycardia/sinus node dysfunction with frequent sinus pauses status post pacemaker placement Atrial fibrillation Xarelto on hold Coronary artery disease status post PCI RCA April 2024 DAPT with aspirin and Plavix next hypertension Norvasc and Cozaar CLL follow-up with oncology as an outpatient Chronic kidney disease stage III avoid nephrotoxic meds hypovolemia Nutrition Screen: Malnutrition Attestation: I attest to the following: I have personally seen this patient. The patient has been assessed for malnutrition as documentation above, and based on the criteria set by the Academy of Nutrition and Dietetics and the [place] [employer] Enteral and Parenteral Nutrition, meets the diagnosis for malnutrition. A care plan has been established for this patient. VTE Prophylaxis: Hold secondary to GI bleed Scheduled Meds amLODIPine, 10 mg, oral, Daily aspirin, 81 mg, oral, Daily [Held by provider] bumetanide, 1 mg, oral, Daily cholecalciferol, 2,000 Units, oral, Daily clopidogrel, 75 mg, oral, Daily gabapentin, 300 mg, oral, TID [Held by provider] insulin glargine, 52 Units, subcutaneous, q AM insulin lispro, 0-5 Units, subcutaneous, q6h SHLOMO losartan, 50 mg, oral, Daily magnesium oxide, 200 mg, oral, Daily nitroglycerin, 1 patch, transdermal, Daily primidone, 50 mg, oral, Daily rosuvastatin, 20 mg, oral, q PM pantoprazole (ProtoNix) 80 mg in sodium chloride 0.9 % 100 mL (0.8 mg/mL) infusion, 8 mg/hr, Last Rate: 8 mg/hr (06/11/24 1114) Pertinent Investigations Hematology: Results from last 7 days Lab Units 06/11/24 0503 06/10/2445106/09/241953 WBC AUTO 10*3/uL 16.29* 16.29* 15.83* HEMOGLOBIN g/dL 9.0* 8.7* 8.9* HEMATOCRIT % 27.5* 26.1* 26.7* MCV fL 92.0 91.3 90.5 PLATELETS AUTO 10*3/uL 173 160 166 INR -- -- 1.37* Chemistry: Results from last 7 days Lab Units 06/11/24 0503 06/10/242 06/09/241953 SODIUM mmol/L 137 136 139 POTASSIUM mmol/L 4.7 4.5 4.4 CHLORIDE mmol/L 108* 108* 107 CO2 mmol/L BUN mg/dL * CREATININE mg/dL 1.61* 1.22 1.36* GLUCOSE mg/dL 69* 70 58* MAGNESIUM mg/dL 2.1 2.7 1.8* CALCIUM mg/dL 8.4* 8.7 8.7 Results from last 7 days Lab Units 06/10/24 0452 06/09/241953 AST U/L 15 14 ALT U/L 9 12 ALK PHOS U/L 62 67 BILIRUBIN TOTAL mg/dL 0.8 0.8 Results from last 7 days Lab Units 06/11/24 1123 06/11/24 0634 06/11/24 0502 06/11/24 0026 06/10/24 1808 06/10/24 1159 POCT GLUCOSE mg/dL 71 86 82 77 141* 104 Historical Values: (Includes values prior to this adm (more content not included)...[facility]11-22-2024 NoteDUAL CHAMBER PACEMAKER IMPLANT PROCEDURE NOTE DATE OF PROCEDURE: 06/11/24 PERFORMING PHYSICIAN: Dr. Adriano Martell CONSENT: Patient LOCATION: EP Lab PROCEDURE PERFORMED: 1. Implantation of pacemaker (Biotronik) 2. Venogram guided venous access INDICATIONS: 1. Heart Block PROCEDURAL SEDATION: Versed and Fentanyl. Moderate sedation was administered by the sedation nurse under my supervision and noted in the CVL log. Intraprocedural face to face sedation time: min. Monitoring: Cardiac telemetry, Blood pressure, continuous pulse oxymetry. FLUOROSCOPY TIME: sec/ mGray. EBL: 25cc SPECIMEN REMOVED: None PREPARATION: PROCEDURAL DETAILS: Patient was placed in trendelenberg position and ultrasound was used to evaluate the patency of left axillary vein and for venous access. Left axillary venous access was obtained using modified seldinger technique using a 5 Irish micro-puncture needle on two occasions and 0.35 wires were placed. Local infiltration of 1% Lidocaine was performed, and an incision was created in the left upper chest. Dissection was then performed using cautery down to the fascial plane above the muscle. The belly of the pectoralis was identified and with gentle blunt dissection a small pocket was created for the device above the muscle. 6 Irish Safesheaths were placed over the wire. An active fixation Biotronik pacing lead was then delivered through the 6Fsheath tothe right ventricle. After confirmation of lead position on orthogonal views (VELAZQUEZ and SINGAPOREAN) to confirm septal position, the screw was activated, and the lead was placed in the right ventricular mid cavity towards the septum. After confirmation of good sensing parameters, injury pattern and pacing thresholds, 10V pacing was done and no diaphragmatic stimulation was noted. It was then secured in the pocket using three 1-0 Silk sutures. Then an active fixation Biotronik lead was delivered through the 6Fsheath to the right atrial appendage. After confirmation of lead position on orthogonal views (VELAZQUEZ and SINGAPOREAN), the screw was activated. Good sensing parameters, injury pattern and pacing thresholds, the lead was then tested using Lambert's maneuver. 10V pacing was done and no diaphragmatic stimulation was noted. It was then secured in the pocket using three 1-0 Silk sutures. Pocket hemostasis was secured, and it was then copiously and vigorously irrigated with antibiotic solution. The leads were attached to the generator and then wrapped under the device and the device was tacked to underlying muscle and placed in the pocket. The pocket was closed in layers: subcutaneous layer using 2-0 Vicryl; skin using 3-0 absorbable monofilament suture. Glue was applied and Tegaderm dressing was placed on top. Lead parameters were then rechecked through the device as noted below. The patient was returned to the short stay room for post procedural observation. No immediate procedural complications were noted. POST PROCEDURE EXAM: Patient was hemodynamically stable. Pacemaker data: Right atrial lead showed a pacing threshold of 1.3 V at 0.4 ms pulse width. The P wave amplitude was 3.5 mV and the impedance was 410 ohms. The right ventricular lead showed a pacing threshold of 0.9 V at a pulse width of 0.4 ms pulse width and a R wave amplitude of 6.5 mV impedance was 566 ohms COMPLICATIONS: None. ESTIMATED BLOOD LOSS: 5cc IMPRESSION: 1. Successful dual chamber pacemaker with excellent pacing and sensing parameters. RECOMMENDATIONS: 1. Occlusive dressing to be removed after 2 weeks. 2. Do not wet the incision for 7 days. 3. No lifting heavy weights using arm on the same side x 3weeks 4. Do not lift elbow above the shoulder on the same side for 4-6 weeks. 5. No driving for 1 month. 6. F/u in device clinic 1 week from discharge or sooner for any concerns. Adriano Martell M.D. [facility] Fishing Lure Assemblerwardrobe mistress and Pediatrics Director: Cardiac Electrophysiology ProgramKettering Memorial Hospital 06-11-2024 NoteGastroenterology Plan of Care GI following in the setting of anemia with melena. Attempted to see patient at bedside, however he was off of the floor at the time for pacemaker placement. Plan: Continue Protonix infusion Will tentatively plan for EGD on 06/14/24 for further evaluation of melena pending cardiac optimization OK for regular diet as tolerated from GI standpoint Trend H&H and monitor for overt GI bleeding, transfuse as neededKettering Memorial Hospital11-22-2024 NotePatient: Ila Morejon Procedure Information Date/Time: 06/11/24 0830 Procedure: Pacemaker DC new Location: [facility] 1 / [facility] (Cath) Providers: Adriano Martell MD Clinical information reviewed: Allergies Meds Physical Exam Airway Mallampati: II Cardiovascular - normal exam Dental - normal exam Pulmonary - normal exam Abdominal - normal exam Anesthesia Plan ASA 2 The patient is not a current smoker. Patient was not previously instructed to abstain from smoking on day of procedure. Patient did not smoke on day of procedure. Education provided regarding risk of obstructive sleep apnea. Anesthetic plan and risks discussed with patient. Use of blood products discussed with patient who. [facility] Note Attestation signed by Hao Cardona MD at 06/11/2024 1:39 PM By using the attestations below, the signing clinician agrees that I have read and verify that the documentation has been personally reviewed by me and ensure that the documentation accurately reflects the encounter. GC: I personally saw this patient on the day of the encounter, performed the hurtado portion(s) of the service and participated in the management and confirm the resident's documentation. Please note there may be an additional personal documentation from me. Additional Comments: Hao Cardona MD, MPH, [facility], [facility], [facility] Interventional Cardiology Pager Email: [email or web address] Cardiology Progress Note Subjective Subjective: Ila Morejon is a 78 y.o. male who was seen at bedside this am. He underwent PPM placement this morning and is now doing well, some soreness around incision site. Denies chest pain, shortness of breath, swelling, lightheadedness or dizziness. Incision is CDI. Objective Current Facility-Administered Medications: acetaminophen (Tylenol) tablet 650 mg, 650 mg, oral, q6h PRN, Carmen Chong NP amLODIPine (Norvasc) tablet 10 mg, 10 mg, oral, Daily, Carmen Chong NP, 10 mg at 06/10/24926 aspirin EC tablet 81 mg, 81 mg, oral, Daily, Hao Cardona MD, 81 mg at 06/10/24 9407 [Held by provider] bumetanide (Bumex) tablet 1 mg, 1 mg, oral, Daily, Carmen Chong NP, 1 mg at 06/10/24926 ceFAZolin (Ancef) 1,000 mg, gentamicin (Garamycin) 80 mg in sodium chloride irrigation solution 0.9 % 500 mL IRRIGATION, , irrigation, Once, Bi Kohli MD ceFAZolin in dextrose (iso-os) (Ancef) IVPB 2 g, 2 g, intravenous, Once, Bi Kohli MD cholecalciferol (Vitamin D-3) tablet 2,000 Units, 2,000 Units, oral, Daily, Carmen Chong NP, 2,000 Units at 06/10/24 09 clopidogrel (Plavix) tablet 75 mg, 75 mg, oral, Daily, Hao Cardona MD, 75 mg at 06/10/24 1629 glucose chewable tablet 24 g, 24 g, oral, q15 min PRN OR dextrose 50 % in water (D50W) syringe 25 g, 25 g, intravenous, q15 min PRN, Carmen Chong, EDUCATION PROGRAM COORDINATOR gabapentin (Neurontin) capsule 300 mg, 300 mg, oral, TID, Carmen Chong, EDUCATION PROGRAM COORDINATOR, 300 mg at 06/10/242113 [Held by provider] insulin glargine (Lantus) injection vial 52 Units, 52 Units, subcutaneous, q AM, Carmen Chong, EDUCATION PROGRAM COORDINATOR insulin lispro (HumaLOG) injection 0-5 Units, 0-5 Units, subcutaneous, q6h SHLOMO, Carmen Chong EDUCATION PROGRAM COORDINATOR losartan (Cozaar) tablet 50 mg, 50 mg, oral, Daily, Carmen Chong, EDUCATION PROGRAM COORDINATOR, 50 mg at 06/10/24 09 magnesium oxide (Mag-Ox) split tablet 200 mg, 200 mg, oral, Daily, Carmen Chong, EDUCATION PROGRAM COORDINATOR, 200 mg at 06/10/24 1005 melatonin tablet 5 mg, 5 mg, oral, Nightly PRN, Carmen Chong, EDUCATION PROGRAM COORDINATOR nitroglycerin (Nitrodur) 0.2 mg/hr patch 1 patch, 1 patch, transdermal, Daily, Bi Kohli MD, 1 patch at 06/09/242202 ondansetron ODT (Zofran-ODT) disintegrating tablet 4 mg, 4 mg, oral, q8h PRN OR ondansetron HCl (PF) (Zofran) injection 4 mg, 4 mg, intravenous, q6h PRN, Carmen Chong, EDUCATION PROGRAM COORDINATOR pantoprazole (ProtoNix) 80 mg in sodium chloride 0.9 % 100 mL (0.8 mg/mL) infusion, 8 mg/hr, intravenous, Continuous, Mario Farooq MD, Last Rate: 10 mL/hr at 06/11/24 05, 8 mg/hr at 06/11/24 0536 primidone (Mysoline) tablet 50 mg, 50 mg, oral, Daily, Carmen Chong, EDUCATION PROGRAM COORDINATOR, 50 mg at 06/10/24 09 rosuvastatin (Crestor) tablet 20 mg, 20 mg, oral, q PM, Carmen Chong, EDUCATION PROGRAM COORDINATOR, 20 mg at 06/10/242113 Objective: Patient Vitals for the past 24 hrs: BP Temp Temp src Pulse Resp SpO2 Weight 06/11/24 0501 -- -- -- -- -- -- 70.9 kg (156 lb 6.4 oz) 06/11/24 0405 (!) 137/45 -- -- (!) 39 13 98 % -- 06/11/24 0030 116/90 -- -- (!) 40 12 96 % -- 06/10/24 1920 151/90 36.4 ???C (97.5 ???F) Temporal (!) 43 18 -- -- 06/10/24 1609 148/64 36.5 ???C (97.7 ???F) Temporal (!) 42 14 100 % -- 06/10/24 1200 (!) 153/47 36.5 ???C (97.7 ???F) Temporal (!) 44 18 96 % -- 06/10/24 0926 (!) 173/48 -- -- -- -- -- -- 06/10/24 0750 168/50 36.5 ???C (97.7 ???F) Temporal (!) 41 13 96 % -- Physical Examination: GENERAL: AOx3, in no acute distress. HEAD: Atraumatic, normocephalic. EYES: TUNDE, EOMI. NECK: No JVD present. CARDIAC: RRR, left chest incision is CDI. No murmur, rubs, or gallops. RESPIRATORY: CTAB, no increased effort of breathing. ABDOMEN: Soft, nontender, nondistended. EXTREMITIES: No lower extremity edema, peripheral pulses are 2+ bilaterally. NEURO: No focal deficits Relevant Lab Results Encounter Date: 06/09/24 ECG 12 lead Result Value Ventricular Rate 41 Atrial Rate 41 NE Interval 152 QRS DURATION 120 QT Interval 484 QTC CALCULATION(BAZETT) 399 P [place] -29 R-[place] 69 T Wave [place] -65 Impression Marked sinus bradycardia Cannot rule out Inferior infarct , age undetermined Abnormal ECG No previous ECGs available (more content not included)...[facility]11-21-2024 Note06/10/24 1213 Admission Assessment Questions Verify insurance with patient Yes Do you understand medical disease or what brought you into the hospital? Yes Who is your current PCP? Cruzito Mcgrath MD Can I schedule a follow up appointment for you at the time of discharge? Yes (mornings) Do you understand why you are taking your current medications? Yes Are you taking your medications as prescribed? Yes Did patient provide teach back? No Pharmacy Bedside Delivery Status Interested Does the patient have a cyanide case hardener assigned to them through their insurance? No Living Arrangement (Current/Prior to Hospitalization) Private residence (with , 2 steps to get in, 2 stories,) Does the patient have history of HHC or SNF? No Assistive Device Other (Comment) (bipap at night) Patient's goal for discharge home Was patient reminded that goal for discharge is 11am? Yes Does the patient have transportation at discharge? Yes Type of Residence Private residence Is PT/OT appropriate? No Is PT/OT ordered? No Is SW consult appropriate? No Is SW consult ordered? No Do you understand the benefits of MyChart? Yes Were you able to send link and activate MyChart? [facility]11-21-2024 NoteHospital Medicine Daily Progress Note - 06/10/2024 11:37 AM; Room: [address] [place] [address] Admission: 06/09/2024 3:11 PM; Length of stay: 1 days THE HOSPITALIST TEAM PREFERS TO USE [employer] FOR NON-URGENT COMMUNICATION 7AM-7PM. IF I DO NOT RESPOND WITHIN 20 MINUTES OR URGENT MATTERS, PLEASE CALL THROUGH THE FLIGHT SURGEON. FROM 7PM-7AM, PLEASE PAGE [phone](COVR). Code Status: Full Code Barriers to Discharge: GI bleed/recent PCI and stent Expected Discharge Date: 2 to 3 days Discharge Destination: home Overview Patient is seen for evaluation and management of posthemorrhagic anemia GI bleed. Subjective In bed denies any abdominal pain nausea vomiting dyspepsia no GI bleed no dizziness lightheadedness no syncope denies chest pain palpitation PND orthopnea Physical Exam Visit Vitals BP (!) 173/48 Pulse (!) 41 Temp 36.5 ???C (97.7 ???F) (Temporal) Resp 13 Intake/Output Summary (Last 24 hours) at 06/10/2024 1137 Last data filed at 06/10/2024 1100 Gross per 24 hour Intake 412 ml Output 750 ml Net -338 ml Physical Exam Vitals reviewed. Constitutional: Appearance: Normal appearance. He is normal weight. HENT: Head: Normocephalic and atraumatic. Nose: Nose normal. Mouth/Throat: Mouth: Mucous membranes are moist. Pharynx: Oropharynx is clear. Eyes: Extraocular Movements: Extraocular movements intact. Conjunctiva/sclera: Conjunctivae normal. Pupils: Pupils are equal, round, and reactive to light. Cardiovascular: Rate and Rhythm: Normal rate and regular rhythm. Pulmonary: Effort: Pulmonary effort is normal. Breath sounds: Normal breath sounds. Abdominal: General: Abdomen is flat. Bowel sounds are normal. Palpations: Abdomen is soft. Musculoskeletal: General: Normal range of motion. Cervical back: Normal range of motion and neck supple. Skin: General: Skin is dry. Capillary Refill: Capillary refill takes less than 2 seconds. Neurological: Mental Status: He is alert. Mental status is at baseline. Psychiatric: Mood and Affect: Mood normal. Behavior: Behavior normal. Estimated body mass index is 24.33 kg/m??? as calculated from the following: Height as of this encounter: 1.727 m (5' 8 ). Weight as of this encounter: 72.6 kg (160 lb). Active Inpatient Problems Principal Problem: GI bleed Assessment and Plan Posthemorrhagic anemia/GI bleed/melena continue Protonix follow-up with GI trend H&H Recent NSTEMI status post PCI with stent has been on antiplatelet meds and is taking Eliquis for A-fib which are on hold cardiology consulted for management of antiplatelets Hypertension continue meds bradycardia ?ppm will follow with cardiology ED insulin blood sugar check diet Heart failure with preserved EF appears compensated chronic kidney disease stage III GFR 61.4 bicarb 24 potassium 4.5 Leukocytosis monitor and trend WBC count with persistently elevated consider flow cytometry no symptoms of cough urinary symptoms so monitor closely will get a chest x-ray in the morning Low albumin and protein monitor nutritional status closely Nutrition Screen: Malnutrition Attestation: I attest to the following: I have personally seen this patient. The patient has been assessed for malnutrition as documentation above, and based on the criteria set by the Academy of Nutrition and Dietetics and the [place] [employer] of Enteral and Parenteral Nutrition, meets the diagnosis for malnutrition. A care plan has been established for this patient. VTE Prophylaxis: With GI bleed no anticoagulation Scheduled Meds amLODIPine, 10 mg, oral, Daily bumetanide, 1 mg, oral, Daily cholecalciferol, 2,000 Units, oral, Daily gabapentin, 300 mg, oral, TID [Held by provider] insulin glargine, 52 Units, subcutaneous, q AM insulin lispro, 0-5 Units, subcutaneous, q6h SHLOMO losartan, 50 mg, oral, Daily magnesium oxide, 200 mg, oral, Daily nitroglycerin, 1 patch, transdermal, Daily primidone, 50 mg, oral, Daily rosuvastatin, 20 mg, oral, q PM pantoprazole (ProtoNix) 80 mg in sodium chloride 0.9 % 100 mL (0.8 mg/mL) infusion, 8 mg/hr, Last Rate: 8 mg/hr (06/10/24 1049) Pertinent Investigations Hematology: Results from last 7 days Lab Units 06/10/2445106/09/241953 WBC AUTO 10*3/uL 16.29* 15.83* HEMOGLOBIN g/dL 8.7* 8.9* HEMATOCRIT % 26.1* 26.7* MCV fL 91.3 90.5 PLATELETS AUTO 10*3/uL 160 166 INR -- 1.37* Chemistry: Results from last 7 days Lab Units 06/10/2445106/09/241953 SODIUM mmol/L 136 139 POTASSIUM mmol/L 4.5 4.4 CHLORIDE mmol/L 108* 107 CO2 mmol/L 24 27 BUN mg/dL 24 27* CREATININE mg/dL 1.22 1.36* GLUCOSE mg/dL 70 58* MAGNESIUM mg/dL 2.7 1.8* CALCIUM mg/dL 8.7 8.7 Results from last 7 days Lab Units 06/10/242 06/09/241953 AST U/L 15 14 ALT U/L 9 12 ALK PHOS U/L 62 67 BILIRUBIN TOTAL mg/dL 0.8 0.8 Results from last 7 days Lab Units 06/10/24 0516 06/09/24 2350 06/09/24 2234 06/09/244 (more content not included)...[facility] 06-09-2024 NoteHospital Medicine History and Physical 06/09/2024 9:22 PM THE HOSPITALIST TEAM PREFERS TO USE [employer] FOR NON-URGENT COMMUNICATION 7AM-7PM. IF I DO NOT RESPOND WITHIN 20 MINUTES OR URGENT MATTERS, PLEASE CALL THROUGH THE FLIGHT SURGEON. FROM 7PM-7AM, PLEASE PAGE [phone](COVR). Chief Complaint No chief complaint on file. History of Present Illness Ila Morejon is an 78 y.o. male transferred from [facility] where he he was seen in the ER following abdominal CBC revealing hemoglobin of 7.8 which was 12 about a month back patient denies abdominal discomfort heartburn nausea vomiting he has been on Eliquis which was changed to Xarelto 2 weeks back he denies dyspepsia he thinks he has lost about 10 pounds in past few months and has noticed black tarry stools since past 1 week and feels more tired and has intolerance to cold and feels fatigued and dyspnea with exertion he was noted to have bradycardia but no hypotension he denies any history of dyspepsia and denies having upper GI endoscopy he had colonoscopy 2 years back which was negative. He was discharged from [facility] on 04/29/2024 following NSTEMI underwent left heart cath on 04/28/2024 with successful requiring stentingof RCA he was started on aspirin and Brilinta initially but Brilinta length was discontinued and was switched to aspirin and Plavix he was started on Eliquis on 04/29/2024 and was planned to continue triple therapy for 4 weeks per cardiology He was seen by cardiology for sinus bradycardia and long pauses more than 5 seconds Review of System and Physical Exam Temp: [36.6 ???C (97.9 ???F)-36.7 ???C (98 ???F)] 36.6 ???C (97.9 ???F) Heart Rate: [42-46] 46 Resp: [16-20] 16 BP: (154-170)/(50-110) 154/110 Physical Exam Vitals reviewed. Constitutional: Appearance: Normal appearance. He is normal weight. HENT: Head: Normocephalic and atraumatic. Right Ear: Tympanic membrane, ear canal and external ear normal. Left Ear: Tympanic membrane, ear canal and external ear normal. Nose: Nose normal. Mouth/Throat: Mouth: Mucous membranes are moist. Pharynx: Oropharynx is clear. Eyes: Extraocular Movements: Extraocular movements intact. Conjunctiva/sclera: Conjunctivae normal. Pupils: Pupils are equal, round, and reactive to light. Cardiovascular: Rate and Rhythm: Normal rate and regular rhythm. Pulses: Normal pulses. Heart sounds: Normal heart sounds. Pulmonary: Effort: Pulmonary effort is normal. Breath sounds: Normal breath sounds. Abdominal: General: Abdomen is flat. Bowel sounds are normal. Palpations: Abdomen is soft. Musculoskeletal: General: Normal range of motion. Cervical back: Normal range of motion and neck supple. Skin: General: Skin is warm and dry. Capillary Refill: Capillary refill takes less than 2 seconds. Neurological: General: No focal deficit present. Mental Status: He is alert and oriented to person, place, and time. Mental status is at baseline. Psychiatric: Mood and Affect: Mood normal. Behavior: Behavior normal. Review of Systems Constitutional: Positive for activity change and fatigue. HENT: Negative. Eyes: Negative. Respiratory: Positive for shortness of breath. Negative for apnea, cough, choking, chest tightness, wheezing and stridor. Gastrointestinal: Negative. Genitourinary: Negative. Musculoskeletal: Negative. Allergic/Immunologic: Negative. Neurological: Negative. Psychiatric/Behavioral: Negative. Problem List Principal Problem: GI bleed Assessment and Plan Posthemorrhagic anemia s/p blood transfusion serial hemoglobin hematocrit with melanotic stools GI consult anticoagulation antiplatelet meds are on hold continue PPI Recent NSTEMI status post PCI with stent to RCA stents which was less than a month and antiplatelet medications are on hold will get cardiology to see patient continue telemetry continue lisinopril add nitrates continue statin History of bradycardia as above Diabetes insulin blood sugar check diet Heart failure with preserved ejection fraction appears compensated Chronic kidney disease stage IIIb avoid nephrotoxic meds hypovolemia on ARB monitor renal function potassium CODE STATUS full code VTE Prophylaxis: Hold anticoagulation secondary to GI bleed ----- Focus of this inpatient stay will remain on problems that need acute care setting for care. We will review available studies and will order additional labs, imaging and other studies as appropriate. As needed medicines are ordered as appropriate. VTE Prophylaxis will be ordered as appropriate. Please see above for management plan for individual hospital problems. Home medications are reviewed and will be continued as appropriate. Patient will be continued to be followed during this hospital stay by a member of [facility]. Past Medical History Past Medical History: Diagnosis Date Carotid artery stenosis Ch (more content not included)...[facility]10-31-2024 Miscellaneous Notes* Telephone Encounter - Yvrose Crawford CMA - 05/20/2024 4:24 PM EDT Left message for patient to call the office to schedule hospital follow up appointment documented in this encounterDelaware County HospitalTerrafugia [id number] Telephone encounter Note* Telephone Encounter - Yvrose Crawford CMA - 05/20/2024 4:24 PM EDT Left message for patient to call the office to schedule hospital follow up appointment [facility] nanoRETE [id number] Evaluation note* Diagnosis Onset Date Resolution Status Admit Date Spondylosis of lumbar region without myelopathy or radiculopathy acute May 20 8:45am Trochanteric bursitis of bot h hips acute May 20 8:45am Claudication of left lower extremity acute August 12 9:36am [facility] Work Phone: 1(920) 255-444610-23-2024 History of Present illness Narrative* Cruzito Mcgrath MD - 05/12/2024 10:37 AM EDTAssociated Problem(s): PAD (peripheral artery disease) ([facility]) Follow with vascular. * Cruzito Mcgrath MD - 05/12/2024 10:36 AM EDTAssociated Problem(s): Chronic heart failure with preserved ejection fraction (HFpEF) ([facility]) Edema stable and continue medication. Follow with cardiology. * Cruzito Mcgrath MD - 05/12/2024 10:34 AM EDTAssociated Problem(s): Benign essential tremor Resume primidone. * Cruzito Mcgrath MD - 05/12/2024 10:34 AM EDTAssociated Problem(s): Benign essential HTN (CMS/HCC) BP controlled and monitor PRN. * Cruzito Mcgrath MD - 05/12/2024 10:34 AM EDTAssociated Problem(s): Arteriosclerosis of coronary artery (CMS/HCC) No pain and follow with cardiology. * Cruzito Mcgrath MD - 05/12/2024 10:34 AM EDTAssociated Problem(s): Type 2 diabetes mellitus with hyperglycemia, with long-term current use of insulin (CMS/HCC) Not checking BS and due for A1C. Stick to ADA diet and limit carbs. * Cruzito Mcgrath MD - 05/12/2024 9:45 AM EDT Images from the original note were not included. Subjective Patient ID: Ila Morejon is a 78 y.o. male who presents for Follow-up (6m /). Hospital follow up from 04-27-04/29 for CHF and follow up DM, HTN, tremor, CAD, and PVD. Patient feels well today. Developed SOB and fluid overload. Diuresed and doing well On bumex and no edema. Seenby cardiolog and stable. Not checking BS away [...] medication. Follow with cardiology. documented in this encounterSoutheast Missouri Community Treatment [id number] NoteUT Electrophysiology Consult Note [place] [facility] Reason for visit: Sinus pause HPI: Ila Morejon is a 78 y.o. year old with past medical history of CAD s/p PCI in 2016, diabetes mellitus, hypertension, PAD, sleep apnea, CLL, [...] kidney disease Coronary artery disease Diabetes mellitus ([facility]) Hyperlipidemia Hypertension Myocardial infarction ([facility]) PAD (peripheral artery disease) ([facility]) PSH: Past Surgical History: Procedure Laterality Date [...] gait Skin Inspection an (more content not included)...[facility] 04-29-2024 Miscellaneous Notes* Telephone Encounter - Carlotat Bahena - 04/29/2024 2:46 AM EDT Contract: [facility] [phone] [facility] Sammie dixon abnormal rhythm, rm [id number] * Telephone Encounter - Carlotta Bahena - 04/29/2024 2:46 AM EDT Secure chat sent documented in this encounterMer[facility]10[facility] Telephone encounter Note* Telephone Encounter - Carlotta Josef - 04/29/2024 2:46 AM EDT [facility] [phone] [facility] Sammie dixon abnormal rhythm, rm [id number] [facility]10-10-2024 Telephone encounter Note* Telephone Encounter - Carlotta Josef - 04/29/2024 2:46 AM EDT Secure chat sent [facility]10-09-2024 Miscellaneous Notes* Telephone Encounter - Damari Sanchez - 04/28/2024 9:20 PM EDT Contract: britany ryder [phone] [facility] Sepideh dixon continuation of orders; Rm [id number] * Telephone Encounter - Damari Sanchez - 04/28/2024 9:20 PM EDT ppcrd message was sent to Dana Aguilera via secure chat documented in this encounterMer[facility]10-09-2024 Telephone encounter Note* Telephone Encounter - Damari Sanchez - 04/28/2024 9:20 PM EDT Contract: britany ryder [phone] [facility] Sepideh re continuation of orders; [id number] [facility]10-09-2024 Telephone encounter Note* Telephone Encounter - Damari Sanchez - 04/28/2024 9:20 PM EDT ppcrd message was sent to Dana Aguilera via secure chat [facility]10-09-2024 Miscellaneous Notes* Telephone Encounter - Marisol Berry - 04/28/2024 3:41 AM EDT Contract: JAKE Cochran @[facility] called regarding elevated blood pressure. I sent Deon Lee a secure chat message. documented in this encounterMercy Health St. [facility]10-09-2024 Telephone encounter Note* Telephone Encounter - Marisol Berry - 04/28/2024 3:41 AM EDT Contract: JAKE Cochran @[facility] called regarding elevated blood pressure. I sent Deon Lee a secure chat message. [facility]10-07-2024 Miscellaneous Notes* Telephone Encounter - Shahrzad Manley - 04/26/2024 2:27 AM EDT Contract: JAKE - new consult for elevated trops * Telephone Encounter - Shahrzad Manley - 04/26/2024 2:27 AM EDT [facility] Sent Secure Chat to Dr. Cotton Routed call to PPCRD Consult Desk documented in this encounterMercy Health St. [facility]10-07-2024 Telephone encounter Note* Telephone Encounter - Shahrzad Manley - 04/26/2024 2:27 AM EDT Contract: [facility] - new consult for elevated trops [facility]10-07-2024 Telephone encounter Note* Telephone Encounter - Shahrzad Manley - 04/26/2024 2:27 AM EDT [facility] Sent Secure Chat to Dr. Cotton Routed call to PPCRD Consult Desk [facility]09-23-[facility] Chief Complaint: New patient here to establish care. Ref from Dr. Mcgrath for CAD. He sees vascular surgery in [place] for PAD and carotid artery stenosis. Last heart cath was performed in Mar 2023 at [facility]. He was last seen in their office for follow up in Aug 2023. Patient states he's got a lot of side effects from Brilinta, and would like to go back to Plavix. He says [facility] was pushing Brilinta. Smokes 1-2 cigarettes a [...] found to have an NSTEMI and underwent ADRIANO to RCA. During hospital stay he was [...] work 30 hours per week for the [email or web address]. UPDATE 04/12/2024 He is doing fairly well; he denies lightheadedness, dizziness, or syncope He said no further arm pain that was a symptom prior to requiring stents. Looking at the report of his cardiac catheterization and stent placement 04/07/2023: 99% stenosis in the stented portion of the mid right coronary artery with thrombus PMHx: Coronary artery disease involving [place] coronary artery of [place] heart without angina pectoris Abnormal result of cardiovascular function study, unspecified Hypertension Type 2 diabetes mellitus 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 ([facility]) Status post angioplasty with stent PAD (peripheral artery disease) ([facility]) Claudication ([facility]) Bilateral carotid artery stenosis Mixed hyperlipidemia Asymptomatic bradycardia NSTEMI (non-ST elevated myocardial infarction) ([facility]) Cardiology ROS: Review of Systems Cardiovascular: Positive [...] is moderate annular calcification. (more content not included)...[facility]09-09-2024 Miscellaneous Notes* Telephone Encounter - Devora Pisano RN - 03/29/2024 11:55 AM EDT OV 09/03/23 documented in this encounterVermont Psychiatric Care HospitalThe Online 40109-09-2024 Telephone encounter Note* Telephone Encounter - Devora Pisano RN - 03/29/2024 11:55 AM EDT OV 09/03/23 [facility] [phone] Miscellaneous Notes* Telephone Encounter - Thelma Roque CMA - 03/09/2024 9:40 AM EDT patient called to cancel appointment did not want to reschedule documented in this encounterMercy Health St. [facility]08-20-2024 Telephone encounter Note* Telephone Encounter - Thelma Roque CMA - 03/09/2024 9:40 AM EDT patient called to cancel appointment did not want to reschedule [facility] nanoRETE [id number] History of Present illness Narrative* Jeromy Mejia MD - 03/09/2024 9:20 AM EDT Subjective Patient ID: Ila Morejon is a 78 y.o. male who presents for Hoarseness Pt reports since having pneumonia 3 mo ago and developed hoarseness intermittently. No hoarseness today, but had it yesterday. Pt's primary concern is making sure he does not have a tumor as he is a former smoke. No tobacco 8 years. Review of Systems All other systems reviewed and are negative. Family History Problem Relation Name Age of Onset Diabetes Mother Cancer Father Diabetes Father Melanoma Neg Hx Active Ambulatory Problems Diagnosis Date Noted Arteriosclerosis of coronary artery ([facility]) 07/01/2023 Asymptomatic bradycardia 11/12/2022 Benign essential HTN ([facility]) 07/01/2023 Bilateral carotid artery stenosis 10/21/2019 CLL (chronic lymphocytic leukemia) ([facility]) 06/27/2022 Hyperlipidemia ([facility]) 07/01/2023 Normal pressure hydrocephalus ([facility]) 07/01/2023 Obstructive sleep apnea 07/01/2023 PAD (peripheral artery disease) ([facility]) 10/21/2019 CKD stage 3b, GFR 30-44 ml/min ([facility]) 01/04/2023 Type 2 diabetes mellitus with hyperglycemia, with long-term current use of insulin ([facility]) 01/04/2023 Overweight (BMI 25.0-29.9) 07/01/2023 Edema of both legs 07/22/2023 Vitamin D deficiency 10/24/2023 Encounter for long-term (current) use of medications 10/24/2023 Benign essential tremor 10/24/2023 Weakness of both legs 12/18/2023 DDD (degenerative disc disease), lumbar 02/26/2024 Lumbar radiculopathy 02/26/2024 Change in voice 02/26/2024 Hoarseness 02/26/2024 Resolved Ambulatory Problems Diagnosis Date Noted URI, acute 07/01/2023 Abnormal result of cardiovascular function study, unspecified 07/01/2023 Hypertension ([facility]/H[facility]) 07/01/2023 NSTEMI (non-ST elevated myocardial infarction) ([facility]) 04/05/2023 Essential tremor 07/22/2023 Pneumonia 01/09/2024 Past Medical History: Diagnosis Date Actinic keratosis Benign essential hypertension ([facility]/H[facility]) CAD in [place] artery ([facility]) Cataract chronic sleep disorder DM (diabetes mellitus) ([facility]) Erectile dysfunction of organic origin Hernia 10/2021 Hypercholesterolemia ([facility]/H[facility]) Left inguinal hernia Leukocytosis Microalbuminuria EMMA (obstructive sleep apnea) Osteoarthritis Overweight PVD (peripheral vascular disease) ([facility]) Sleep disorder 10/2021 Squamous cell carcinoma in situ 02/21/2022 Squamous cell carcinoma in situ (SCCIS) Squamous cell skin cancer Tobacco abuse Past Surgical History: Procedure Laterality Date COLONOSCOPY 06/2009 CORONARY STENT PLACEMENT 2014 HEART CATH 11/2015 HERNIA REPAIR Left Inguinal hernia repair OTHER SURGICAL HISTORY 2013 stent placement (abd) SKIN BIOPSY 10/2015 (Left side of neck) No Known Allergies Current Outpatient Medications on File Prior to Visit Medication Sig Dispense Refill amLODIPine (Norvasc) 10 MG tablet Take 10 mg by mouth in the morning. aspirin 81 MG EC tablet Take 81 mg by mouth Daily carvedilol (Coreg) 6.25 MG tablet every 12 (twelve) hours cholecalciferol (Vitamin D-3) 25 MCG (1000 UT) tablet Take 2,000 Units by mouth in the morning. coenzyme Q-10 100 MG capsule Take 100 mg by mouth in the morning. Continuous Blood Gluc Video Game Creator (Domain InvestStyle Silvino 2 Hutchins) device 1 each Daily 1 each 0 Continuous Glucose Sensor (FreeStyle Silvino 3 Sensor) misc 1 each every 14 (fourteen) days 2 each 11 gabapentin (Neurontin) 300 MG capsule Take 1 capsule (300 mg) by mouth in the morning and 1 capsule(300 mg) in the evening and 1 capsule (300 mg) before bedtime. 270 capsule 1 insulin glargine (Lantus) 100 UNIT/ML injection Inject 52 Units under the skin in the morning. 50 mL 3 insulin syringe-needle U-100 (BD Insulin Syringe U/F) 31G X 5/16 1 mL misc Use as instructed 100 each 3 lisinopril 30 MG tablet Take 1 tablet (30 mg) by mouth in the morning. 90 tablet 3 metFORMIN XR (Glucophage-XR) 500 MG 24 hr tablet Take 1 tablet (500 mg) by mouth in the evening. Take with meals 90 tablet 3 rosuvastatin (Crestor) 40 MG tablet Take 40 mg by mouth in the morning. ticagrelor (Brilinta) 90 MG tablet Take 90 mg by mouth in the morning and 90 mg before bedtime. Viagra 100 MG tablet 1 (one) time each day at the same time. vitamin E capsule Take 1,000 Units by mouth Daily Current Facility-Administered Medications on File Prior to Visit Medication Dose Route Frequency Provider Last Rate Last Admin [DISCONTINUED] sodium chloride (NS) 0.9 % flush 3 mL Intravenous Daily PRN Generic External Data Provider Objective Last Recorded Vitals Vitals: 03/09/24 0856 BP: 173/60 ENT Physical Exam Constitutional Appearance: patient appears well-developed and well-nourished, Head and Face Appearance: head appears normal and face appears atraumatic; Ear Ear comments: Edwar ears normal Nose External Nose: nares patent bilaterally; external nose normal; Internal Nose: nasal mucosa normal; Oral Cavity/Oropharynx Lips: normal; Teeth: normal; Gums: gingiva normal; Tongue: normal; Oral mucosa: normal; Hard palate: normal; OC/OP comments: IDL (good exam) - NL TVC mobility. No mass or ulcer Neck Neck: neck normal; neck palpation normal; Thyroid: thyroid normal; Respiratory Inspection: breathing unlabored; normal breathing rate; Auscultation: breath sounds are clear; Cardiovascular Inspection: extremities are warm and well perfused; no peripheral edema present; Auscultation: regular rate and rhythm; Assessment/Plan Diagnoses and all orders for this visit: Change in voice - Ambulatory referral to ENT Hoarseness - Ambulatory referral to ENT Pt reassured there is no tumor. Sx c/w mild LPRD. Instructed in reflux precautions. documented in this encounterSoutheast Missouri Community Treatment [id number] NoteXR CHEST 2 VWS Procedure: Chest x-ray performed Number of views:PA and lateral History:Weakness and fatigue Comparison:04/04/2023 Findings: The heart and lungs show no acute findings, and the mediastinum and debbie are grossly negative . Impression: No acute change. Finalized by Aurelia Payton DO on 03/05/2024 4:27 [facility] 01-16-2024 History of Present illness Narrative* Dipti Beckham MD - 01/16/2024 2:45 PM EDT Images from the original note were not included. NAME: Ila Morejon CLINIC NO.: [id number] DATE OF SERVICE: January 16, 2024 (Lory) [...] Reverse Chronological Order 04/04/2023 - Admitted to [facility] with NSTEMI Underwent placement of drug eluting [...] attack. We will continue to monitor this, buthe does not need to start PO iron at this time. His WBCs are not as elevated as they were previously. He denies any B symptoms. Has been sleeping more, especially since the CA. Updated Visit, December 27, 2022: 13 year [...] and his Sabrina. We discussed results from laboratoriesobtained at his last visit. Findings were consistent [...] of CLL as his presumptive diagnosis. We alsodiscussed the classic time course of this disease [...] which included preparing to see the patient, [id number] patient care, completing clinical documentation, obtaining and/or reviewing separately obtained history, performing a medically appropriate examination, counseling and educating the pat ient/family/caregiver, ordering medications, tests, or procedures, and independently interpreting results (not separately reported). Dipti Beckham MD, CPE Hematology and Oncology Services Provided at: [place], [place] Scribe Attestation: This note was scribed by Di Barnes on January 16, 2024 under the direction and supervision of Dr. Dipti Beckham. I attest that all of the information documented is correct to the best of my knowledge. Provider Attestation: I, Dipti Beckham MD, attest that all information documented by the above scribe is correct, and was supervised by me and under my direction. CC: Cruzito Mcgrath MD ([facility]) [address] [facility] [address] documented in this encounterSelect Medical Ohiohealth Rehabilitation Hospital06-28-2024 NoteHNO ID: [id number] Author: DIPTI BECKHAM MD Service: ? Author Type: Physician Type: Progress Notes Filed: 01/16/2024 18:22 Note Text: NAME: Ila Morejon [facility] NO.: [id number] DATE OF SERVICE: January 16, 2024 (Lory) [...] Reverse Chronological Order 04/04/2023 - Admitted to [facility] with NSTEMI Underwent placement of drug eluting [...] Has been sleeping more, especially since the CA. Updated Visit, December 27, 2022: 13 year [...] (CRESTOR) 20 mg tablet (more content not included)...[facility]06-28-2024 Instructions* Patient Instructions* Dipti Beckham MD - 01/16/2024 2:33 PM EDT RTC in 6 months, with labs same day. documented in this encounterSelect Medical Ohiohealth Rehabilitation Hospital02-14-2024 History of Present illness Narrative* January Sanders APRN-[employer]ER - 09/03/2023 1:00 PM EST Ila Morejon Date of visit: 09/03/2023 Date of : 1945 Age: 78 y.o. Patient Active Problem List Diagnosis Coronary artery disease involving [place] coronary artery of [place] ge[place] heart without angina pectoris Abnormal result of cardiovascular function study, unspecified Hypertension Type 2 diabetes mellitus 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 ([facility]) Status post angioplasty with stent PAD (peripheral artery disease) ([facility]) Claudication ([facility]) Bilateral carotid artery stenosis Mixed hyperlipidemia Asymptomatic bradycardia NSTEMI (non-ST elevated myocardial infarction) ([facility]) No Known Allergies Current Outpatient Medications Medication [...] mg total) by mouth in the morning. bzjhdsnh-uaul-EC-calcium &mins (THERAGRAN-M) 9 mg iron-400 mcg tablet Take 1 tablet by mouth inthe morning. potassium gluconate 595 mg (99 mg) tablet extended release Take 1 tablet (595 mg total) by mouth inthe morning. rosuvastatin (CRESTOR) 20 mg tablet Take 1 tablet (20 mg total) by mouth nightly for 360 days. 30 tablet 11 ticagrelor (BRILINTA) 90 mg tablet Take 1 tablet (90 mg total) by mouth every 12 (twelve) hours [id number] days. 60 tablet 11 No current facility-administered [...] found to have an NSTEMI and underwent ADRIANO to RCA. During hospital stay he was [...] work 30 hours per week for the [email or web address]. Past Medical History: Diagnosis Date Abnormal result of cardiovascular function study, unspecified Coronary atherosclerosis due to calcified coronary lesion Dental disease full dentures Diabetes mellitus ([facility]) Diabetes mellitus type 2, controlled ([facility]) Hyperlipidemia Hypertension Sleep apnea bipap Visual impairment No data recorded No data recorded No data recorded Past Surgical History: Procedure Laterality Date ANGIOPLASTY Bilateral 12/2020 legs CARDIAC CATHETERIZATION 2016 stents x2 Cardiac catheterization N/A 04/07/2023 Performed by Rafa Roman MD at [facility] CARDIAC CATH LABS COLONOSCOPY N/A 12/26/2022 Performed by Chino Raza DO at [facility] Coronary angiogram only N/A 04/07/2023 Performed by Rafa Roman MD at [facility] CARDIAC CATH LABS DAVINCI REPAIR HERNIA INGUINAL Left 11/06/2021 Performed by Chino Raza DO at [facility] drug eluting stent right coronary artery N/A 04/07/2023 Performed by Rafa Roman MD at [facility] CARDIAC CATH LABS SKIN BIOPSY Family [...] Cardiac Electrophysiology 2. Coronary artery disease involving [place] george coronary artery of [place] george heart without angina pectoris 3. Hypertension, unspecified type 4. NSTEMI (non-ST elevated myocardial infarction) ([facility]) Sinus node dysfunction ASCVD/PCI March 2023 Preserved [...] file. PCP: CRUZITO MCGRATH MD Referring Physician: Rickie Hirsch MD [address] [facility] [place] [address] OXANA Lopez 09/03/23 1256 documented in this encounterMercy Health St. [facility]02-07-2024 History of Present illness Narrative* Rickie Hirsch MD - 08/27/2023 2:00 PM EST Ila Morejon Date of visit: 08/27/2023 Date of : 1945 Age: 78 y.o. Patient Active Problem List Diagnosis Coronary artery disease involving [place] ge[place] coronary artery of [place] george heart without angina pectoris Abnormal result of cardiovascular function study, unspecified Hypertension Type 2 diabetes mellitus 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 ([facility]) Status post angioplasty with stent PAD (peripheral artery disease) ([facility]) Claudication ([facility]) Bilateral carotid artery stenosis Mixed hyperlipidemia Asymptomatic bradycardia NSTEMI (non-ST elevated myocardial infarction) ([facility]) No Known Allergies Current Outpatient Medications Medication [...] mg total) by mouth in the morning. qwcafibq-rfqb-MB-calcium &mins (THERAGRAN-M) 9 mg iron-400 mcg tablet Take 1 tablet by mouth inthe morning. potassium gluconate 595 mg (99 mg) tablet extended release Take 1 tablet (595 mg total) by mouth inthe morning. rosuvastatin (CRESTOR) 20 mg tablet Take 1 tablet (20 mg total) by mouth nightly for 360 days. 30 tablet 11 ticagrelor (BRILINTA) 90 mg tablet Take 1 tablet (90 mg total) by mouth every 12 (twelve) hours [id number] days. 60 tablet 11 No current facility-administered [...] lesion Dental disease full dentures Diabetes mellitus ([facility]) Diabetes mellitus type 2, controlled ([facility]) Hyperlipidemia Hypertension Sleep apnea bipap Visual impairment No data recorded No data recorded No data recorded Past Surgical History: Procedure Laterality Date ANGIOPLASTY Bilateral 12/2020 legs CARDIAC CATHETERIZATION 2016 stents x2 Cardiac catheterization N/A 04/07/2023 Performed by Rafa Roman MD at [facility] CARDIAC CATH LABS COLONOSCOPY N/A 12/26/2022 Performed by Chino Raza DO at [facility] Coronary angiogram only N/A 04/07/2023 Performed by Rafa Roman MD at [facility] CARDIAC CATH LABS DAVINCI REPAIR HERNIA INGUINAL Left 11/06/2021 Performed by Chino Raza DO at [facility] drug eluting stent right coronary artery N/A 04/07/2023 Performed by Rafa Roman MD at [facility] CARDIAC CATH LABS SKIN BIOPSY Family [...] Ht 172.7 cm (5' 8 ) Wt 76.7kg (169 lb) SpO2 98% BMI 25.70 kg/m Orders Placed or Reconciled This Encounter Medications gabapentin (NEURONTIN) 300 mg capsule Sig: Take 1 capsule (300 mg total) by mouth 3 (three) times a day. tkzgixay-wzqz-LL-calcium &mins (THERAGRAN-M) 9 mg iron-400 mcg tablet [...] MCGRATH MD Referring Physician: Cruzito Mcgrath MD [address] [place] [address] documented in [address] encounterMercy Health [address]. [facility]02-06-2024 Miscellaneous Notes* Telephone Encounter - Gabbie Rebolledo CMA - 08/26/2023 9:26 AM EST Called patient to remind them to bring their most current copy of their medication list with them to their appt. Patient verbalizes understanding. documented in this encounterMercy Health St. [facility]02-06-2024 Telephone encounter Note* Telephone Encounter - Gabbie Rebolledo CMA - 08/26/2023 9:26 AM EST Called patient to remind them to bring their most current copy of their medication list with them to their appt. Patient verbalizes understanding. [facility]01-15-[facility] History of Present illness Narrative* Pamela Donald MD - 08/04/2023 1:26 PM EST Patient noted to have a history of bradycardia * Sommer Magana RN - 08/04/2023 1:26 PM EST Scheduled pt for 48 HM on 08/05/23 at 9am. Made appt in the [place] office for 08/27/23 at 2pm. Calledpt and he verbalizes understanding.slm documented in this encounterMercy Health St. [facility]01-15-2024 History of Present illness Narrative* Pamela Donald MD - 08/04/2023 1:24 PM EST Cardiac rehab has noted asymptomatic bradycardia with heart rate into the 20s. Holter monitor ordered Patient should have follow-up in the office [facility] Inst[facility]* Patient Instructions* Dipti Beckham MD - 12/27/2022 2:28 PM EDT RTC in 6 months with labs same day. documented in this encounter[facility] History of Present illness Narrative* Dipti Beckham MD - 12/27/2022 2:23 PM EDT Images from the original note were not included. NAME: Ila Morejon [facility] NO.: [id number] DATE OF SERVICE: December 27, 2022 (Lory) [...] and his Sabrina. We discussed results from laboratoriesobtained at his last visit. Findings were consistent [...] of CLL as his presumptive diagnosis. We alsodiscussed the classic time course of this disease [...] which included preparing to see the patient, [id number] patient care, completing clinical documentation, obtaining and/or reviewing separately obtained history, performing a medically appropriate examination, counseling and educating the pat ient/family/caregiver, ordering medications, tests, or procedures, and independently interpreting results (not separately reported). Dipti Beckham MD, CPE Hematology and Oncology Services Provided at: [place], [place] CC: Cruzito Mcgrath MD ([facility]) [address] [address] documented in this encounterSelect [facility]12-08-2022 Instructions* Patient Instructions* Dipti Beckham MD - 06/27/2022 5:37 PM EST Keep prior documented in this encounterSelect [facility]12-08-2022 History of Present illness Narrative* Dipti Beckham MD - 06/27/2022 5:19 PM EST Images from the original note were not included. NAME: Ila Morejon CLINIC NO.: [id number] DATE OF SERVICE: June 27, 2022 (Lory) [...] Telephone only for 8 minutes. It required patient- provider interaction for the medical decision making as [...] and his Sabrina. We discussed results from laboratoriesobtained at his last visit. Findings were consistent [...] of CLL as his presumptive diagnosis. 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 Izabella Gunter MA documented in this encounterSelect [facility]12-02-2022 Instructions* Patient Instructions* Dipti Beckham MD - 06/21/2022 3:40 PM EST Phone call next week with results RTC in 6 months with labs same day. documented in this encounterSelect [facility]12-02-2022 History of Present illness Narrative* Dipti Beckham MD - 06/21/2022 3:00 PM EST Images from the original note were not included. NAME: Ila Morejon CLINIC NO.: [id number] DATE OF SERVICE: June 21, 2022 Referring Provider: Cruzito Mcgrath Consultation requested by Dr. Mcgrath for an opinion regarding Mr. Ila Morejon, and my final recommendations will be communicated back to the requesting physician by way of shared medical record orletter via [place] mail. Additional Clinicians involved in Ila Morejon's care: DIAGNOSIS: lymphocytosis ASSESSMENT: 76 year old man with DM HTN, PVD presenting with lymphocytosis that likely represents an early presentation of a low grade lymphoproliferative disorder which would include CLL. Laboratoryworkup is pending. PLAN: Phone call next week [...] of CLL as his presumptive diagnosis. We alsodiscussed the classic time course of this disease [...] which included preparing to see the patient, [id number] patient care, completing clinical documentation, obtaining and/or reviewing separately obtained history, performing a medically appropriate examination, counseling and educating the pat ient/family/caregiver, ordering medications, tests, or procedures, and independently interpreting results (not separately reported). Dipti Beckham MD, CPE Hematology and Oncology Services Provided at: [place], [place] CC: Cruzito Mcgrath MD ([facility]) [address] [address] documented in this encounterSelect Medical [facility] HospitalEvalutidal[facility] [place] noteNo assessment information availableTogus [facility] CtrEvaluation note* Diagnosis Lymphocytosis- Primary Lymphocytosis (symptomatic) documented in this encounter [facility] [place] [facility]* Diagnosis CLL (chronic lymphocytic leukemia) (HCC)- Primary Chronic lymphoid leukemia, without mention of having achieved remission Large granular lymphocytosis Lymphocytosis (symptomatic) [facility] this encounter [facility]* Diagnosis CLL (chronic lymphocytic leukemia) (HCC)- Primary Chronic lymphoid leukemia, without mention of having achieved remission Large granular lymphocytosis Lymphocytosis (symptomatic) Stage 3 chronic kidney disease, unspecified whether stage 3a or 3b CKD (HCC) Type 2 diabetes mellitus 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, unspecified whether alf insulin use (HCC) documented in this encounter [facility] [place] [facility]* Diagnosis CLL (chronic lymphocytic leukemia) (HCC)- Primary Chronic lymphoid leukemia, without mention of having achieved remission Large granular lymphocytosis Lymphocytosis (symptomatic) Stage 3 chronic kidney disease, unspecified whether stage 3a or 3b CKD (HCC) documented in this encounter [facility]* Diagnosis Onset Date Resolution Status PAD (peripheral artery disease) [facility] Work Phone: Evaluation note* Diagnosis Onset Date Resolution Status PAD (peripheral artery disease) acute Spondylosis of lumbar region without myelopathy or radiculopathy acute Trochanteric bursitis of both hips acute Claudication of left lower extremity acute Diminished pulses in lower extremity acute Former smoker acute Left leg pain acute PAD (peripheral artery disease) acute [facility] Work Phone: Evaluation note* Diagnosis Type 2 diabetes mellitus with hyperglycemia, without long-term current use of insulin ([facility])- Primary Benign essential HTN ([facility]) Edema of both legs Edema Essential tremor URI, acute Acute upper respiratory infections of unspecified site Type 2 diabetes mellitus with hyperglycemia, with long-term current use of insulin ([facility])- Primary Benign essential HTN ([facility]) Benign essential tremor Essential and other specified forms of tremor Bilateral carotid artery stenosis Occlusion and stenosis of carotid artery without mention of cerebral infarction Arteriosclerosis of coronary artery ([facility]) CKD stage 3a, GFR 45-59 ml/min ([facility]) Mixed hyperlipidemia ([facility]) Mixed hyperlipidemia Vitamin D deficiency Encounter for long-term (current) use of medications Encounter for long-term (current) use of other medications Type 2 diabetes mellitus with stage 3a chronic kidney disease, with long-term current use of insulin ([facility]) ([facility]) Type 2 diabetes mellitus 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, with long-term current use of insulin ([facility]) Weakness of both legs- Primary Muscle weakness (generalized) Pneumonia of both lungs due to infectious organism, unspecified part of lung- Primary Type 2 diabetes mellitus with hyperglycemia, with long-term current use of insulin ([facility]) CLL (chronic lymphocytic leukemia) ([facility]) Chronic lymphoid leukemia, without mention of having achieved remission Immunodeficiency due to conditions classified elsewhere ([facility]) Change in voice- Primary Other voice and resonance disorders Hoarseness Dysphonia DDD (degenerative disc disease), lumbar Degeneration of lumbar or lumbosacral intervertebral disc PAD (peripheral artery disease) ([facility]) Unspecified peripheral vascular disease Type 2 diabetes mellitus with hyperglycemia, with long-term current use of insulin ([facility]) Bilateral carotid artery stenosis Occlusion and stenosis of carotid artery without mention of cerebral infarction Type 2 diabetes mellitus with hyperglycemia, with long-term current use of insulin ([facility])- Primary Benign essential HTN ([facility]) Chronic heart failure with preserved ejection fraction (HFpEF) ([facility]) Arteriosclerosis of coronary artery ([facility] Benign essential tremor Essential and other specified forms of tremor PAD (peripheral artery disease) ([facility]) Unspecified peripheral vascular disease CKD stage 3b, GFR 30-44 ml/min ([facility]) 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[facility]) Type 2 diabetes mellitus 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 ([facility]) documented in this encounter [facility] HealthcareEvaluation note* Diagnosis Type 2 diabetes mellitus with hyperglycemia, without long-term current use of insulin ([facility])- Primary Benign essential HTN ([facility]) Edema of both legs Edema Essential tremor URI, acute Acute upper respiratory infections of unspecified site Type 2 diabetes mellitus with hyperglycemia, with long-term current use of insulin ([facility])- Primary Benign essential HTN ([facility]) Benign essential tremor Essential and other specified forms of tremor Bilateral carotid artery stenosis Occlusion and stenosis of carotid artery without mention of cerebral infarction Arteriosclerosis of coronary artery ([facility]) CKD stage 3a, GFR 45-59 ml/min ([facility]) Mixed hyperlipidemia ([facility]) Mixed hyperlipidemia Vitamin D deficiency Encounter for long-term (current) use of medications Encounter for long-term (current) use of other medications Type 2 diabetes mellitus with stage 3a chronic kidney disease, with long-term current use of insulin ([facility]) ([facility]) Type 2 diabetes mellitus 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, with long-term current use of insulin ([facility]) Weakness of both legs- Primary Muscle weakness (generalized) Pneumonia of both lungs due to infectious organism, unspecified part of lung- Primary Type 2 diabetes mellitus with hyperglycemia, with long-term current use of insulin ([facility]) CLL (chronic lymphocytic leukemia) ([facility]) Chronic lymphoid leukemia, without mention of having achieved remission Immunodeficiency due to conditions classified elsewhere ([facility]) Change in voice- Primary Other voice and resonance disorders Hoarseness Dysphonia DDD (degenerative disc disease), lumbar Degeneration of lumbar or lumbosacral intervertebral disc PAD (peripheral artery disease) ([facility]) Unspecified peripheral vascular disease Type 2 diabetes mellitus with hyperglycemia, with long-term current use of insulin ([facility]) Bilateral carotid artery stenosis Occlusion and stenosis of carotid artery without mention of cerebral infarction Type 2 diabetes mellitus with hyperglycemia, with long-term current use of insulin ([facility])- Primary Benign essential HTN ([facility]) Chronic heart failure with preserved ejection fraction (HFpEF) ([facility]) Arteriosclerosis of coronary artery ([facility]) Benign essential tremor Essential and other specified forms of tremor PAD (peripheral artery disease) ([facility]) Unspecified peripheral vascular disease CKD stage 3b, GFR 30-44 ml/min ([facility]) 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[facility]) Type 2 diabetes mellitus 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 ([facility]) Essential tremor documented in this encounter [facility] HealthcareEvaluation note* Diagnosis Type 2 diabetes mellitus with hyperglycemia, without long-term current use of insulin ([facility])- Primary Benign essential HTN ([facility]) Edema of both legs Edema Essential tremor URI, acute Acute upper respiratory infections of unspecified site Type 2 diabetes mellitus with hyperglycemia, with long-term current use of insulin ([facility])- Primary Benign essential HTN ([facility]) Benign essential tremor Essential and other specified forms of tremor Bilateral carotid artery stenosis Occlusion and stenosis of carotid artery without mention of cerebral infarction Arteriosclerosis of coronary artery ([facility]) CKD stage 3a, GFR 45-59 ml/min ([facility]) Mixed hyperlipidemia ([facility]) Mixed hyperlipidemia Vitamin D deficiency Encounter for long-term (current) use of medications Encounter for long-term (current) use of other medications Type 2 diabetes mellitus with stage 3a chronic kidney disease, with long-term current use of insulin ([facility]) ([facility]) Type 2 diabetes mellitus 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, with long-term current use of insulin ([facility]) Weakness of both legs- Primary Muscle weakness (generalized) Pneumonia of both lungs due to infectious organism, unspecified part of lung- Primary Type 2 diabetes mellitus with hyperglycemia, with long-term current use of insulin ([facility]) CLL (chronic lymphocytic leukemia) ([facility]) Chronic lymphoid leukemia, without mention of having achieved remission Immunodeficiency due to conditions classified elsewhere ([facility]) Change in voice- Primary Other voice and resonance disorders Hoarseness Dysphonia DDD (degenerative disc disease), lumbar Degeneration of lumbar or lumbosacral intervertebral disc PAD (peripheral artery disease) ([facility]) Unspecified peripheral vascular disease Type 2 diabetes mellitus with hyperglycemia, with long-term current use of insulin ([facility]) Bilateral carotid artery stenosis Occlusion and stenosis of carotid artery without mention of cerebral infarction Type 2 diabetes mellitus with hyperglycemia, with long-term current use of insulin ([facility])- Primary Benign essential HTN ([facility]) Chronic heart failure with preserved ejection fraction (HFpEF) ([facility]) Arteriosclerosis of coronary artery ([facility] Benign essential tremor Essential and other specified forms of tremor PAD (peripheral artery disease) ([facility]) Unspecified peripheral vascular disease CKD stage 3b, GFR 30-44 ml/min ([facility]) 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[facility]) Type 2 diabetes mellitus 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 ([facility]) Essential tremor documented in this encounter [facility] HealthcareEvaluation note* Diagnosis Type 2 diabetes mellitus with hyperglycemia, without long-term current use of insulin ([facility])- Primary Benign essential HTN ([facility]) Edema of both legs Edema Essential tremor URI, acute Acute upper respiratory infections of unspecified site Type 2 diabetes mellitus with hyperglycemia, with long-term current use of insulin ([facility])- Primary Benign essential HTN ([facility]) Benign essential tremor Essential and other specified forms of tremor Bilateral carotid artery stenosis Occlusion and stenosis of carotid artery without mention of cerebral infarction Arteriosclerosis of coronary artery ([facility]) CKD stage 3a, GFR 45-59 ml/min ([facility]) Mixed hyperlipidemia ([facility]) Mixed hyperlipidemia Vitamin D deficiency Encounter for long-term (current) use of medications Encounter for long-term (current) use of other medications Type 2 diabetes mellitus with stage 3a chronic kidney disease, with long-term current use of insulin ([facility]) ([facility]) Type 2 diabetes mellitus 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, with long-term current use of insulin ([facility]) Weakness of both legs- Primary Muscle weakness (generalized) Pneumonia of both lungs due to infectious organism, unspecified part of lung- Primary Type 2 diabetes mellitus with hyperglycemia, with long-term current use of insulin ([facility]) CLL (chronic lymphocytic leukemia) ([facility]) Chronic lymphoid leukemia, without mention of having achieved remission Immunodeficiency due to conditions classified elsewhere ([facility]) Change in voice- Primary Other voice and resonance disorders Hoarseness Dysphonia DDD (degenerative disc disease), lumbar Degeneration of lumbar or lumbosacral intervertebral disc PAD (peripheral artery disease) ([facility]) Unspecified peripheral vascular disease Type 2 diabetes mellitus with hyperglycemia, with long-term current use of insulin ([facility]) Bilateral carotid artery stenosis Occlusion and stenosis of carotid artery without mention of cerebral infarction Type 2 diabetes mellitus with hyperglycemia, with long-term current use of insulin ([facility])- Primary Benign essential HTN ([facility]) Chronic heart failure with preserved ejection fraction (HFpEF) ([facility]) Arteriosclerosis of coronary artery ([facility]) Benign essential tremor Essential and other specified forms of tremor PAD (peripheral artery disease) ([facility]) Unspecified peripheral vascular disease CKD stage 3b, GFR 30-44 ml/min ([facility]) 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[facility] Type 2 diabetes mellitus 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 ([facility]) Gastrointestinal hemorrhage associated with acute gastritis- Primary Duodenitis Asymptomatic bradycardia Chronic heart failure with preserved ejection fraction (HFpEF) ([facility]) Paroxysmal atrial fibrillation ([facility]) Atrial fibrillation Benign essential tremor Essential and other specified forms of tremor Essential tremor documented in this encounter [facility] HealthcareEvaluation note* Diagnosis Type 2 diabetes mellitus with hyperglycemia, without long-term current use of insulin ([facility])- Primary Benign essential HTN ([facility]) Edema of both legs Edema Essential tremor URI, acute Acute upper respiratory infections of unspecified site Type 2 diabetes mellitus with hyperglycemia, with long-term current use of insulin ([facility])- Primary Benign essential HTN ([facility]) Benign essential tremor Essential and other specified forms of tremor Bilateral carotid artery stenosis Occlusion and stenosis of carotid artery without mention of cerebral infarction Arteriosclerosis of coronary artery ([facility]) CKD stage 3a, GFR 45-59 ml/min ([facility]) Mixed hyperlipidemia ([facility] [facility]) Mixed hyperlipidemia Vitamin D deficiency Encounter for long-term (current) use of medications Encounter for long-term (current) use of other medications Type 2 diabetes mellitus with stage 3a chronic kidney disease, with long-term current use of insulin (HCC) ([facility]) Type 2 diabetes mellitus 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, with long-term current use of insulin ([facility]) Weakness of both legs- Primary Muscle weakness (generalized) Pneumonia of both lungs due to infectious organism, unspecified part of lung- Primary Type 2 diabetes mellitus with hyperglycemia, with long-term current use of insulin ([facility]) CLL (chronic lymphocytic leukemia) ([facility]) Chronic lymphoid leukemia, without mention of having achieved remission Immunodeficiency due to conditions classified elsewhere ([facility]) Change in voice- Primary Other voice and resonance disorders Hoarseness Dysphonia DDD (degenerative disc disease), lumbar Degeneration of lumbar or lumbosacral intervertebral disc PAD (peripheral artery disease) ([facility]) Unspecified peripheral vascular disease Type 2 diabetes mellitus with hyperglycemia, with long-term current use of insulin ([facility]) Bilateral carotid artery stenosis Occlusion and stenosis of carotid artery without mention of cerebral infarction Type 2 diabetes mellitus with hyperglycemia, with long-term current use of insulin ([facility])- Primary Benign essential HTN ([facility]) Chronic heart failure with preserved ejection fraction (HFpEF) ([facility]) Arteriosclerosis of coronary artery ([facility]) Benign essential tremor Essential and other specified forms of tremor PAD (peripheral artery disease) ([facility]) Unspecified peripheral vascular disease CKD stage 3b, GFR 30-44 ml/min ([facility]) 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[facility]) Type 2 diabetes mellitus 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 ([facility]) Gastrointestinal hemorrhage associated with acute gastritis- Primary Duodenitis Asymptomatic bradycardia Chronic heart failure with preserved ejection fraction (HFpEF) ([facility]) Paroxysmal atrial fibrillation ([facility]) Atrial fibrillation Benign essential tremor Essential and other specified forms of tremor Essential tremor Essential tremor documented in [facility] Diagnosis Change in voice Other voice and resonance disorders Hoarseness Dysphonia documented in this encounter [facility]* Diagnosis DDD (degenerative disc disease), lumbar- Primary Degeneration of lumbar or lumbosacral intervertebral disc Lumbar radiculopathy Thoracic or lumbosacral neuritis or radiculitis, unspecified documented in this encounter [facility]* Diagnosis Type 2 diabetes mellitus with hyperglycemia, without long-term current use of insulin ([facility])- Primary Benign essential HTN ([facility]) Edema of both legs Edema Essential tremor URI, acute Acute upper respiratory infections of unspecified site Type 2 diabetes mellitus with hyperglycemia, with long-term current use of insulin ([facility])- Primary Benign essential HTN ([facility]) Benign essential tremor Essential and other specified forms of tremor Bilateral carotid artery stenosis Occlusion and stenosis of carotid artery without mention of cerebral infarction Arteriosclerosis of coronary artery ([facility]) CKD stage 3a, GFR 45-59 ml/min ([facility]) Mixed hyperlipidemia ([facility]) Mixed hyperlipidemia Vitamin D deficiency Encounter for long-term (current) use of medications Encounter for long-term (current) use of other medications Type 2 diabetes mellitus with stage 3a chronic kidney disease, with long-term current use of insulin ([facility]) ([facility]) Type 2 diabetes mellitus 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, with long-term current use of insulin ([facility]) Weakness of both legs- Primary Muscle weakness (generalized) Pneumonia of both lungs due to infectious organism, unspecified part of lung- Primary Type 2 diabetes mellitus with hyperglycemia, with long-term current use of insulin ([facility]) CLL (chronic lymphocytic leukemia) ([facility]) Chronic lymphoid leukemia, without mention of having achieved remission Immunodeficiency due to conditions classified elsewhere ([facility]) Change in voice- Primary Other voice and resonance disorders Hoarseness Dysphonia DDD (degenerative disc disease), lumbar Degeneration of lumbar or lumbosacral intervertebral disc PAD (peripheral artery disease) ([facility]) Unspecified peripheral vascular disease Type 2 diabetes mellitus with hyperglycemia, with long-term current use of insulin ([facility]) Bilateral carotid artery stenosis Occlusion and stenosis of carotid artery without mention of cerebral infarction Type 2 diabetes mellitus with hyperglycemia, with long-term current use of insulin ([facility])- Primary Benign essential HTN ([facility]) Chronic heart failure with preserved ejection fraction (HFpEF) ([facility]) Arteriosclerosis of coronary artery ([facility]) Benign essential tremor Essential and other specified forms of tremor PAD (peripheral artery disease) ([facility]) Unspecified peripheral vascular disease CKD stage 3b, GFR 30-44 ml/min ([facility]) 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[facility]) Type 2 diabetes mellitus 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 ([facility]) Gastrointestinal hemorrhage associated with acute gastritis- Primary Duodenitis Asymptomatic bradycardia Chronic heart failure with preserved ejection fraction (HFpEF) ([facility]) Paroxysmal atrial fibrillation ([facility]) Atrial fibrillation Benign essential tremor Essential and other specified forms of tremor Essential tremor Degeneration of intervertebral disc of lumbar region with discogenic back pain and lower extremity pain Seborrheic keratosis- Primary History of SCC (squamous cell carcinoma) of skin Personal history of other malignant neoplasm of skin Actinic keratosis Lentigines Neoplasm of unspecified behavior of bone, soft tissue, and skin [facility] Diagnosis CLL (chronic lymphocytic leukemia) (HCC)- Primary Chronic lymphoid leukemia, without mention of having achieved remission Anemia, unspecified type Large granular lymphocytosis Lymphocytosis (symptomatic) Stage 3 chronic kidney disease, unspecified whether stage 3a or 3b CKD ([facility]) [facility] Diagnosis CLL (chronic lymphocytic leukemia) (HCC)- Primary Chronic lymphoid leukemia, without mention of having achieved remission Anemia, unspecified type Malaise and fatigue Other malaise and fatigue [facility] Diagnosis Other iron deficiency anemia- Primary [facility] Diagnosis Other iron deficiency anemia- Primary [facility] Diagnosis Type 2 diabetes mellitus with hyperglycemia, without long-term current use of insulin ([facility])- Primary Benign essential HTN ([facility]) Edema of both legs Edema Essential tremor URI, acute Acute upper respiratory infections of unspecified site Type 2 diabetes mellitus with hyperglycemia, with long-term current use of insulin ([facility])- Primary Benign essential HTN ([facility]) Benign essential tremor Essential and other specified forms of tremor Bilateral carotid artery stenosis Occlusion and stenosis of carotid artery without mention of cerebral infarction Arteriosclerosis of coronary artery ([facility]) CKD stage 3a, GFR 45-59 ml/min ([facility]) Mixed hyperlipidemia ([facility]) Mixed hyperlipidemia Vitamin D deficiency Encounter for long-term (current) use of medications Encounter for long-term (current) use of other medications Type 2 diabetes mellitus with stage 3a chronic kidney disease, with long-term current use of insulin ([facility]) ([facility]) Type 2 diabetes mellitus 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, with long-term current use of insulin ([facility]) Weakness of both legs- Primary Muscle weakness (generalized) Pneumonia of both lungs due to infectious organism, unspecified part of lung- Primary Type 2 diabetes mellitus with hyperglycemia, with long-term current use of insulin ([facility]) CLL (chronic lymphocytic leukemia) ([facility]) Chronic lymphoid leukemia, without mention of having achieved remission Immunodeficiency due to conditions classified elsewhere ([facility]) Change in voice- Primary Other voice and resonance disorders Hoarseness Dysphonia DDD (degenerative disc disease), lumbar Degeneration of lumbar or lumbosacral intervertebral disc PAD (peripheral artery disease) ([facility]) Unspecified peripheral vascular disease Type 2 diabetes mellitus with hyperglycemia, with long-term current use of insulin ([facility]) Bilateral carotid artery stenosis Occlusion and stenosis of carotid artery without mention of cerebral infarction Type 2 diabetes mellitus with hyperglycemia, with long-term current use of insulin ([facility])- Primary Benign essential HTN (CMS/HCC) Chronic heart failure with preserved ejection fraction (HFpEF) ([facility]) Arteriosclerosis of coronary artery ([facility]) Benign essential tremor Essential and other specified forms of tremor PAD (peripheral artery disease) ([facility]) Unspecified peripheral vascular disease CKD stage 3b, GFR 30-44 ml/min ([facility]) 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[facility]) Type 2 diabetes mellitus 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 ([facility]) Gastrointestinal hemorrhage associated with acute gastritis- Primary Duodenitis Asymptomatic bradycardia Chronic heart failure with preserved ejection fraction (HFpEF) ([facility]) Paroxysmal atrial fibrillation ([facility]) Atrial fibrillation Benign essential tremor Essential and other specified forms of tremor Essential tremor Degeneration of intervertebral disc of lumbar region with discogenic back pain and lower extremity pain Tremor- Primary Abnormal involuntary movements documented in this encounter [facility]* Diagnosis Type 2 diabetes mellitus with hyperglycemia, without long-term current use of insulin ([facility])- Primary Benign essential HTN ([facility]) Edema of both legs Edema Essential tremor URI, acute Acute upper respiratory infections of unspecified site Type 2 diabetes mellitus with hyperglycemia, with long-term current use of insulin ([facility])- Primary Benign essential HTN ([facility]) Benign essential tremor Essential and other specified forms of tremor Bilateral carotid artery stenosis Occlusion and stenosis of carotid artery without mention of cerebral infarction Arteriosclerosis of coronary artery ([facility]) CKD stage 3a, GFR 45-59 ml/min ([facility]) Mixed hyperlipidemia ([facility]) Mixed hyperlipidemia Vitamin D deficiency Encounter for long-term (current) use of medications Encounter for long-term (current) use of other medications Type 2 diabetes mellitus with stage 3a chronic kidney disease, with long-term current use of insulin (HCC) ([facility]) Type 2 diabetes mellitus 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, with long-term current use of insulin ([facility]) Weakness of both legs- Primary Muscle weakness (generalized) Pneumonia of both lungs due to infectious organism, unspecified part of lung- Primary Type 2 diabetes mellitus with hyperglycemia, with long-term current use of insulin ([facility]) CLL (chronic lymphocytic leukemia) ([facility]) Chronic lymphoid leukemia, without mention of having achieved remission Immunodeficiency due to conditions classified elsewhere ([facility]) Change in voice- Primary Other voice and resonance disorders Hoarseness Dysphonia DDD (degenerative disc disease), lumbar Degeneration of lumbar or lumbosacral intervertebral disc PAD (peripheral artery disease) ([facility]) Unspecified peripheral vascular disease Type 2 diabetes mellitus with hyperglycemia, with long-term current use of insulin ([facility]) Bilateral carotid artery stenosis Occlusion and stenosis of carotid artery without mention of cerebral infarction Type 2 diabetes mellitus with hyperglycemia, with long-term current use of insulin ([facility])- Primary Benign essential HTN ([facility]) Chronic heart failure with preserved ejection fraction (HFpEF) ([facility]) Arteriosclerosis of coronary artery ([facility]) Benign essential tremor Essential and other specified forms of tremor PAD (peripheral artery disease) ([facility]) Unspecified peripheral vascular disease CKD stage 3b, GFR 30-44 ml/min ([facility]) 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[facility]) Type 2 diabetes mellitus 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 ([facility]) Gastrointestinal hemorrhage associated with acute gastritis- Primary Duodenitis Asymptomatic bradycardia Chronic heart failure with preserved ejection fraction (HFpEF) ([facility]) Paroxysmal atrial fibrillation ([facility]) Atrial fibrillation Benign essential tremor Essential and other specified forms of tremor Essential tremor Degeneration of intervertebral disc of lumbar region with discogenic back pain and lower extremity pain Prurigo nodularis- Primary Lichenification and lichen simplex chronicus documented in this encounter [facility]* Diagnosis Bradycardia- Primary Other specified cardiac dysrhythmias [facility] Diagnosis History of coronary angioplasty with insertion of stent- Primary Pulmonary hypertension ([facility]) Other chronic pulmonary heart diseases Primary hypertension Unspecified essential hypertension Hx of hyperlipidemia Sinus pause [facility]* Diagnosis Coronary artery disease involving [place] coronary artery of [place] heart without angina pectoris- Primary Sinus pause Hypertension, unspecified type NSTEMI (non-ST elevated myocardial infarction) ([facility]) Acute myocardial infarction, subendocardial infarction, episode of care unspecified documented [facility]* Diagnosis Obstructive sleep apnea Obstructive sleep apnea (adult) (pediatric) documented in [facility]* Diagnosis Type 2 diabetes mellitus with hyperglycemia, without long-term current use of insulin ([facility])- Primary Benign essential HTN ([facility]) Edema of both legs Edema Essential tremor URI, acute Acute upper respiratory infections of unspecified site Type 2 diabetes mellitus with hyperglycemia, with long-term current use of insulin ([facility])- Primary Benign essential HTN ([facility]) Benign essential tremor Essential and other specified forms of tremor Bilateral carotid artery stenosis Occlusion and stenosis of carotid artery without mention of cerebral infarction Arteriosclerosis of coronary artery ([facility]) CKD stage 3a, GFR 45-59 ml/min ([facility]) Mixed hyperlipidemia ([facility]) Mixed hyperlipidemia Vitamin D deficiency Encounter for long-term (current) use of medications Encounter for long-term (current) use of other medications Type 2 diabetes mellitus with stage 3a chronic kidney disease, with long-term current use of insulin ([facility]) ([facility]) Type 2 diabetes mellitus 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, with long-term current use of insulin ([facility]) Weakness of both legs- Primary Muscle weakness (generalized) Pneumonia of both lungs due to infectious organism, unspecified part of lung- Primary Type 2 diabetes mellitus with hyperglycemia, with long-term current use of insulin ([facility]) CLL (chronic lymphocytic leukemia) ([facility]) Chronic lymphoid leukemia, without mention of having achieved remission Immunodeficiency due to conditions classified elsewhere ([facility]) Change in voice- Primary Other voice and resonance disorders Hoarseness Dysphonia DDD (degenerative disc disease), lumbar Degeneration of lumbar or lumbosacral intervertebral disc PAD (peripheral artery disease) ([facility]) Unspecified peripheral vascular disease Type 2 diabetes mellitus with hyperglycemia, with long-term current use of insulin ([facility]) Bilateral carotid artery stenosis Occlusion and stenosis of carotid artery without mention of cerebral infarction Type 2 diabetes mellitus with hyperglycemia, with long-term current use of insulin ([facility])- Primary Benign essential HTN ([facility]) Chronic heart failure with preserved ejection fraction (HFpEF) ([facility]) Arteriosclerosis of coronary artery ([facility]) Benign essential tremor Essential and other specified forms of tremor PAD (peripheral artery disease) ([facility]) Unspecified peripheral vascular disease CKD stage 3b, GFR 30-44 ml/min ([facility]) 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[facility]) Type 2 diabetes mellitus 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 ([facility]) Gastrointestinal hemorrhage associated with acute gastritis- Primary Duodenitis Asymptomatic bradycardia Chronic heart failure with preserved ejection fraction (HFpEF) ([facility]) Paroxysmal atrial fibrillation ([facility]) Atrial fibrillation Benign essential tremor Essential and other specified forms of tremor Essential tremor Degeneration of intervertebral disc of lumbar region with discogenic back pain and lower extremity pain Gait instability- Primary Abnormality of gait Tremor Abnormal involuntary movements Paroxysmal atrial fibrillation ([facility]) Atrial fibrillation AICD (automatic cardioverter/defibrillator) present Automatic implantable cardiac defibrillator in situ documented in this encounter [facility]* Diagnosis Type 2 diabetes mellitus with hyperglycemia, without long-term current use of insulin ([facility])- Primary Benign essential HTN ([facility] [facility]) Edema of both legs Edema Essential tremor URI, acute Acute upper respiratory infections of unspecified site Type 2 diabetes mellitus with hyperglycemia, with long-term current use of insulin ([facility])- Primary Benign essential HTN ([facility]) Benign essential tremor Essential and other specified forms of tremor Bilateral carotid artery stenosis Occlusion and stenosis of carotid artery without mention of cerebral infarction Arteriosclerosis of coronary artery ([facility]) CKD stage 3a, GFR 45-59 ml/min ([facility]) Mixed hyperlipidemia ([facility]) Mixed hyperlipidemia Vitamin D deficiency Encounter for long-term (current) use of medications Encounter for long-term (current) use of other medications Type 2 diabetes mellitus with stage 3a chronic kidney disease, with long-term current use of insulin (HCC) ([facility]) Type 2 diabetes mellitus 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, with long-term current use of insulin ([facility]) Weakness of both legs- Primary Muscle weakness (generalized) Pneumonia of both lungs due to infectious organism, unspecified part of lung- Primary Type 2 diabetes mellitus with hyperglycemia, with long-term current use of insulin ([facility]) CLL (chronic lymphocytic leukemia) ([facility]) Chronic lymphoid leukemia, without mention of having achieved remission Immunodeficiency due to conditions classified elsewhere ([facility]) Change in voice- Primary Other voice and resonance disorders Hoarseness Dysphonia DDD (degenerative disc disease), lumbar Degeneration of lumbar or lumbosacral intervertebral disc PAD (peripheral artery disease) ([facility]) Unspecified peripheral vascular disease Type 2 diabetes mellitus with hyperglycemia, with long-term current use of insulin ([facility]) Bilateral carotid artery stenosis Occlusion and stenosis of carotid artery without mention of cerebral infarction Type 2 diabetes mellitus with hyperglycemia, with long-term current use of insulin ([facility])- Primary Benign essential HTN ([facility]) Chronic heart failure with preserved ejection fraction (HFpEF) ([facility]) Arteriosclerosis of coronary artery ([facility]) Benign essential tremor Essential and other specified forms of tremor PAD (peripheral artery disease) ([facility]) Unspecified peripheral vascular disease CKD stage 3b, GFR 30-44 ml/min ([facility]) 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[facility] Type 2 diabetes mellitus 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 ([facility]) Gastrointestinal hemorrhage associated with acute gastritis- Primary Duodenitis Asymptomatic bradycardia Chronic heart failure with preserved ejection fraction (HFpEF) ([facility]) Paroxysmal atrial fibrillation ([facility]) Atrial fibrillation Benign essential tremor Essential and other specified forms of tremor Essential tremor Degeneration of intervertebral disc of lumbar region with discogenic back pain and lower extremity pain Gait instability Abnormality of gait [facility] CLL (chronic lymphocytic leukemia) (HCC)- Primary Chronic lymphoid leukemia, without mention of having achieved remission Other iron deficiency [facility] CLL (chronic lymphocytic leukemia) (HCC)- Primary Chronic lymphoid leukemia, without mention of having achieved remission Other iron deficiency anemia Malaise and fatigue Other malaise and fatigue [facility] Diagnosis Other iron deficiency anemia- Primary [facility] Diagnosis Type 2 diabetes mellitus with hyperglycemia, without long-term current use of insulin ([facility])- Primary Benign essential HTN ([facility]) Edema of both legs Edema Essential tremor URI, acute Acute upper respiratory infections of unspecified site Type 2 diabetes mellitus with hyperglycemia, with long-term current use of insulin ([facility])- Primary Benign essential HTN ([facility]CC) Benign essential tremor Essential and other specified forms of tremor Bilateral carotid artery stenosis Occlusion and stenosis of carotid artery without mention of cerebral infarction Arteriosclerosis of coronary artery ([facility]) CKD stage 3a, GFR 45-59 ml/min ([facility]) Mixed hyperlipidemia ([facility]) Mixed hyperlipidemia Vitamin D deficiency Encounter for long-term (current) use of medications Encounter for long-term (current) use of other medications Type 2 diabetes mellitus with stage 3a chronic kidney disease, with long-term current use of insulin ([facility]) ([facility]) Type 2 diabetes mellitus 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, with long-term current use of insulin ([facility]) Weakness of both legs- Primary Muscle weakness (generalized) Pneumonia of both lungs due to infectious organism, unspecified part of lung- Primary Type 2 diabetes mellitus with hyperglycemia, with long-term current use of insulin ([facility]) CLL (chronic lymphocytic leukemia) ([facility]) Chronic lymphoid leukemia, without mention of having achieved remission Immunodeficiency due to conditions classified elsewhere ([facility]) Change in voice- Primary Other voice and resonance disorders Hoarseness Dysphonia DDD (degenerative disc disease), lumbar Degeneration of lumbar or lumbosacral intervertebral disc PAD (peripheral artery disease) ([facility]) Unspecified peripheral vascular disease Type 2 diabetes mellitus with hyperglycemia, with long-term current use of insulin ([facility]) Bilateral carotid artery stenosis Occlusion and stenosis of carotid artery without mention of cerebral infarction Type 2 diabetes mellitus with hyperglycemia, with long-term current use of insulin ([facility])- Primary Benign essential HTN ([facility]) Chronic heart failure with preserved ejection fraction (HFpEF) ([facility]) Arteriosclerosis of coronary artery ([facility]) Benign essential tremor Essential and other specified forms of tremor PAD (peripheral artery disease) ([facility]) Unspecified peripheral vascular disease CKD stage 3b, GFR 30-44 ml/min ([facility]) 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[facility] Type 2 diabetes mellitus 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 ([facility]) Gastrointestinal hemorrhage associated with acute gastritis- Primary Duodenitis Asymptomatic bradycardia Chronic heart failure with preserved ejection fraction (HFpEF) ([facility]) Paroxysmal atrial fibrillation ([facility]) Atrial fibrillation Benign essential tremor Essential and other specified forms of tremor Essential tremor Degeneration of intervertebral disc of lumbar region with discogenic back pain and lower extremity pain Medicare annual wellness visit, subsequent- Primary Type 2 diabetes mellitus with hyperglycemia, with long-term current use of insulin ([facility]) Chronic heart failure with preserved ejection fraction (HFpEF) ([facility]) CLL (chronic lymphocytic leukemia) ([facility]) Chronic lymphoid leukemia, without mention of having achieved remission CKD stage 3b, GFR 30-44 ml/min ([facility]) PAD (peripheral artery disease) ([facility]) Unspecified peripheral vascular disease Paroxysmal atrial fibrillation ([facility]) Atrial fibrillation Type 2 diabetes mellitus 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 ([facility]) 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[facility]) Immunodeficiency due to conditions classified elsewhere ([facility]) [facility]* Diagnosis CKD stage 3b, GFR 30-44 ml/min ([facility])- [facility] Diagnosis Type 2 diabetes mellitus with hyperglycemia, without long-term current use of insulin ([facility])- Primary Benign essential HTN ([facility]) Edema of both legs Edema Essential tremor URI, acute Acute upper respiratory infections of unspecified site Type 2 diabetes mellitus with hyperglycemia, with long-term current use of insulin ([facility])- Primary Benign essential HTN ([facility]) Benign essential tremor Essential and other specified forms of tremor Bilateral carotid artery stenosis Occlusion and stenosis of carotid artery without mention of cerebral infarction Arteriosclerosis of coronary artery ([facility]) CKD stage 3a, GFR 45-59 ml/min ([facility]) Mixed hyperlipidemia ([facility]) Mixed hyperlipidemia Vitamin D deficiency Encounter for long-term (current) use of medications Encounter for long-term (current) use of other medications Type 2 diabetes mellitus with stage 3a chronic kidney disease, with long-term current use of insulin ([facility]) ([facility]) Type 2 diabetes mellitus 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, with long-term current use of insulin ([facility]) Weakness of both legs- Primary Muscle weakness (generalized) Pneumonia of both lungs due to infectious organism, unspecified part of lung- Primary Type 2 diabetes mellitus with hyperglycemia, with long-term current use of insulin ([facility]) CLL (chronic lymphocytic leukemia) ([facility]) Chronic lymphoid leukemia, without mention of having achieved remission Immunodeficiency due to conditions classified elsewhere ([facility]) Change in voice- Primary Other voice and resonance disorders Hoarseness Dysphonia DDD (degenerative disc disease), lumbar Degeneration of lumbar or lumbosacral intervertebral disc PAD (peripheral artery disease) ([facility]) Unspecified peripheral vascular disease Type 2 diabetes mellitus with hyperglycemia, with long-term current use of insulin ([facility]) Bilateral carotid artery stenosis Occlusion and stenosis of carotid artery without mention of cerebral infarction Type 2 diabetes mellitus with hyperglycemia, with long-term current use of insulin ([facility])- Primary Benign essential HTN ([facility]) Chronic heart failure with preserved ejection fraction (HFpEF) ([facility]) Arteriosclerosis of coronary artery ([facility]) Benign essential tremor Essential and other specified forms of tremor PAD (peripheral artery disease) ([facility]) Unspecified peripheral vascular disease CKD stage 3b, GFR 30-44 ml/min ([facility]) 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[facility]) Type 2 diabetes mellitus 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 ([facility]) Gastrointestinal hemorrhage associated with acute gastritis- Primary Duodenitis Asymptomatic bradycardia Chronic heart failure with preserved ejection fraction (HFpEF) ([facility]) Paroxysmal atrial fibrillation ([facility]) Atrial fibrillation Benign essential tremor Essential and other specified forms of tremor Essential tremor Degeneration of intervertebral disc of lumbar region with discogenic back pain and lower extremity pain Medicare annual wellness visit, subsequent- Primary Type 2 diabetes mellitus with hyperglycemia, with long-term current use of insulin ([facility]) Chronic heart failure with preserved ejection fraction (HFpEF) ([facility]) CLL (chronic lymphocytic leukemia) ([facility]) Chronic lymphoid leukemia, without mention of having achieved remission CKD stage 3b, GFR 30-44 ml/min ([facility]) PAD (peripheral artery disease) ([facility]) Unspecified peripheral vascular disease Paroxysmal atrial fibrillation ([facility] Atrial fibrillation Type 2 diabetes mellitus 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 ([facility]) 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[facility]) Immunodeficiency due to conditions classified elsewhere ([facility]) Gait instability- Primary Abnormality of gait Polyneuropathy Unspecified hereditary and idiopathic peripheral neuropathy Degeneration of intervertebral disc of lumbar region with discogenic back pain Tremor Abnormal involuntary movements Paroxysmal atrial fibrillation ([facility]) Atrial fibrillation AICD (automatic cardioverter/defibrillator) present Automatic implantable cardiac defibrillator in situ documented in this encounter [facility]* Diagnosis Type 2 diabetes mellitus with hyperglycemia, without long-term current use of insulin ([facility])- Primary Benign essential HTN Edema of both legs Edema Essential tremor URI, acute Acute upper respiratory infections of unspecified site Type 2 diabetes mellitus with hyperglycemia, with long-term current use of insulin ([facility])- Primary Benign essential HTN Benign essential tremor Essential and other specified forms of tremor Bilateral carotid artery stenosis Occlusion and stenosis of carotid artery without mention of cerebral infarction Arteriosclerosis of coronary artery CKD stage 3a, GFR 45-59 ml/min ([facility] Mixed hyperlipidemia Mixed hyperlipidemia Vitamin D deficiency Encounter for long-term (current) use of medications Encounter for long-term (current) use of other medications Type 2 diabetes mellitus with stage 3a chronic kidney disease, with long-term current use of insulin ([facility]) Type 2 diabetes mellitus 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, with long-term current use of insulin ([facility]) Weakness of both legs- Primary Muscle weakness (generalized) Pneumonia of both lungs due to infectious organism, unspecified part of lung- Primary Type 2 diabetes mellitus with hyperglycemia, with long-term current use of insulin ([facility]) CLL (chronic lymphocytic leukemia) ([facility]) Chronic lymphoid leukemia, without mention of having achieved remission Immunodeficiency due to conditions classified elsewhere ([facility]) Change in voice- Primary Other voice and resonance disorders Hoarseness Dysphonia DDD (degenerative disc disease), lumbar Degeneration of lumbar or lumbosacral intervertebral disc PAD (peripheral artery disease) Unspecified peripheral vascular disease Type 2 diabetes mellitus with hyperglycemia, with long-term current use of insulin ([facility]) Bilateral carotid artery stenosis Occlusion and stenosis of carotid artery without mention of cerebral infarction Type 2 diabetes mellitus with hyperglycemia, with long-term current use of insulin ([facility])- Primary Benign essential HTN Chronic heart failure with preserved ejection fraction (HFpEF) ([facility]) Arteriosclerosis of coronary artery Benign essential tremor Essential and other specified forms of tremor PAD (peripheral artery disease) Unspecified peripheral vascular disease CKD stage 3b, GFR 30-44 ml/min ([facility]) 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[facility]) Type 2 diabetes mellitus 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 ([facility]) Gastrointestinal hemorrhage associated with acute gastritis- Primary Duodenitis Asymptomatic bradycardia Chronic heart failure with preserved ejection fraction (HFpEF) ([facility]) Paroxysmal atrial fibrillation ([facility]) Atrial fibrillation Benign essential tremor Essential and other specified forms of tremor Essential tremor Degeneration of intervertebral disc of lumbar region with discogenic back pain and lower extremity pain Medicare annual wellness visit, subsequent- Primary Type 2 diabetes mellitus with hyperglycemia, with long-term current use of insulin ([facility]) Chronic heart failure with preserved ejection fraction (HFpEF) ([facility]) CLL (chronic lymphocytic leukemia) (HCC) Chronic lymphoid leukemia, without mention of having achieved remission CKD stage 3b, GFR 30-44 ml/min ([facility]) PAD (peripheral artery disease) Unspecified peripheral vascular disease Paroxysmal atrial fibrillation ([facility]) Atrial fibrillation Type 2 diabetes mellitus 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 ([facility]) 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[facility]) Immunodeficiency due to conditions classified elsewhere ([facility]) Essential tremor documented in this encounter [facility]* Diagnosis Type 2 diabetes mellitus with hyperglycemia, without long-term current use of insulin ([facility])- Primary Benign essential HTN Edema of both legs Edema Essential tremor URI, acute Acute upper respiratory infections of unspecified site Type 2 diabetes mellitus with hyperglycemia, with long-term current use of insulin ([facility])- Primary Benign essential HTN Benign essential tremor Essential and other specified forms of tremor Bilateral carotid artery stenosis Occlusion and stenosis of carotid artery without mention of cerebral infarction Arteriosclerosis of coronary artery CKD stage 3a, GFR 45-59 ml/min ([facility] Mixed hyperlipidemia Mixed hyperlipidemia Vitamin D deficiency Encounter for long-term (current) use of medications Encounter for long-term (current) use of other medications Type 2 diabetes mellitus with stage 3a chronic kidney disease, with long-term current use of insulin ([facility]) Type 2 diabetes mellitus 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, with long-term current use of insulin ([facility]) Weakness of both legs- Primary Muscle weakness (generalized) Pneumonia of both lungs due to infectious organism, unspecified part of lung- Primary Type 2 diabetes mellitus with hyperglycemia, with long-term current use of insulin ([facility]) CLL (chronic lymphocytic leukemia) ([facility]) Chronic lymphoid leukemia, without mention of having achieved remission Immunodeficiency due to conditions classified elsewhere ([facility]) Change in voice- Primary Other voice and resonance disorders Hoarseness Dysphonia DDD (degenerative disc disease), lumbar Degeneration of lumbar or lumbosacral intervertebral disc PAD (peripheral artery disease) Unspecified peripheral vascular disease Type 2 diabetes mellitus with hyperglycemia, with long-term current use of insulin ([facility]) Bilateral carotid artery stenosis Occlusion and stenosis of carotid artery without mention of cerebral infarction Type 2 diabetes mellitus with hyperglycemia, with long-term current use of insulin ([facility])- Primary Benign essential HTN Chronic heart failure with preserved ejection fraction (HFpEF) ([facility]) Arteriosclerosis of coronary artery Benign essential tremor Essential and other specified forms of tremor PAD (peripheral artery disease) Unspecified peripheral vascular disease CKD stage 3b, GFR 30-44 ml/min ([facility]) 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HCC) Type 2 diabetes mellitus 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 ([facility]) Gastrointestinal hemorrhage associated with acute gastritis- Primary Duodenitis Asymptomatic bradycardia Chronic heart failure with preserved ejection fraction (HFpEF) ([facility]) Paroxysmal atrial fibrillation ([facility]) Atrial fibrillation Benign essential tremor Essential and other specified forms of tremor Essential tremor Degeneration of intervertebral disc of lumbar region with discogenic back pain and lower extremity pain Medicare annual wellness visit, subsequent- Primary Type 2 diabetes mellitus with hyperglycemia, with long-term current use of insulin ([facility]) Chronic heart failure with preserved ejection fraction (HFpEF) ([facility]) CLL (chronic lymphocytic leukemia) ([facility]) Chronic lymphoid leukemia, without mention of having achieved remission CKD stage 3b, GFR 30-44 ml/min ([facility]) PAD (peripheral artery disease) Unspecified peripheral vascular disease Paroxysmal atrial fibrillation ([facility]) Atrial fibrillation Type 2 diabetes mellitus 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 ([facility]) 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[facility]) Immunodeficiency due to conditions classified elsewhere ([facility]) Seborrheic keratosis- Primary Actinic keratosis Capillary angioma Nevus, non-neoplastic Lentigines Solar purpura documented in this encounter [facility]* Diagnosis Onset Date Resolution Status Admit Date Anemia of renal disease acute J colette 2024 1:35pm CHF (congestive heart failure) acute February 08, 2025 1:35pm Chronic kidney disease, stage 3b acu te February 08, 2025 1:35pm 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 acute Ju ly 2024 1:35pm Former smoker acute February 08, 2025 1:35pm Hypertensive nephropathy acute February 08, 2025 1:35pm [facility] Work Phone: Evaluation note* Diagnosis Type 2 diabetes mellitus with hyperglycemia, without long-term current use of insulin ([facility])- Primary Benign essential HTN Edema of both legs Edema Essential tremor URI, acute Acute upper respiratory infections of unspecified site Type 2 diabetes mellitus with hyperglycemia, with long-term current use of insulin ([facility])- Primary Benign essential HTN Benign essential tremor Essential and other specified forms of tremor Bilateral carotid artery stenosis Occlusion and stenosis of carotid artery without mention of cerebral infarction Arteriosclerosis of coronary artery CKD stage 3a, GFR 45-59 ml/min ([facility] Mixed hyperlipidemia Mixed hyperlipidemia Vitamin D deficiency Encounter for long-term (current) use of medications Encounter for long-term (current) use of other medications Type 2 diabetes mellitus with stage 3a chronic kidney disease, with long-term current use of insulin ([facility]) Type 2 diabetes mellitus 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, with long-term current use of insulin ([facility]) Weakness of both legs- Primary Muscle weakness (generalized) Pneumonia of both lungs due to infectious organism, unspecified part of lung- Primary Type 2 diabetes mellitus with hyperglycemia, with long-term current use of insulin ([facility]) CLL (chronic lymphocytic leukemia) ([facility]) Chronic lymphoid leukemia, without mention of having achieved remission Immunodeficiency due to conditions classified elsewhere ([facility]) Change in voice- Primary Other voice and resonance disorders Hoarseness Dysphonia DDD (degenerative disc disease), lumbar Degeneration of lumbar or lumbosacral intervertebral disc PAD (peripheral artery disease) Unspecified peripheral vascular disease Type 2 diabetes mellitus with hyperglycemia, with long-term current use of insulin ([facility]) Bilateral carotid artery stenosis Occlusion and stenosis of carotid artery without mention of cerebral infarction Type 2 diabetes mellitus with hyperglycemia, with long-term current use of insulin ([facility])- Primary Benign essential HTN Chronic heart failure with preserved ejection fraction (HFpEF) ([facility]) Arteriosclerosis of coronary artery Benign essential tremor Essential and other specified forms of tremor PAD (peripheral artery disease) Unspecified peripheral vascular disease CKD stage 3b, GFR 30-44 ml/min ([facility]) 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[facility]) Type 2 diabetes mellitus 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 ([facility]) Gastrointestinal hemorrhage associated with acute gastritis- Primary Duodenitis Asymptomatic bradycardia Chronic heart failure with preserved ejection fraction (HFpEF) ([facility]) Paroxysmal atrial fibrillation ([facility]) Atrial fibrillation Benign essential tremor Essential and other specified forms of tremor Essential tremor Degeneration of intervertebral disc of lumbar region with discogenic back pain and lower extremity pain Medicare annual wellness visit, subsequent- Primary Type 2 diabetes mellitus with hyperglycemia, with long-term current use of insulin ([facility]) Chronic heart failure with preserved ejection fraction (HFpEF) ([facility]) CLL (chronic lymphocytic leukemia) ([facility]) Chronic lymphoid leukemia, without mention of having achieved remission CKD stage 3b, GFR 30-44 ml/min ([facility]) PAD (peripheral artery disease) Unspecified peripheral vascular disease Paroxysmal atrial fibrillation (HCC) Atrial fibrillation Type 2 diabetes mellitus 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 (HCC) 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[facility]) Immunodeficiency due to conditions classified elsewhere ([facility]) Chronic heart failure with preserved ejection fraction (HFpEF) ([facility]) documented in this encounter [facility] HealthcareEvaluation [facility]* Diagnosis Type 2 diabetes mellitus with hyperglycemia, without long-term current use of insulin ([facility])- Primary Benign essential HTN Edema of both legs Edema Essential tremor URI, acute Acute upper respiratory infections of unspecified site Type 2 diabetes mellitus with hyperglycemia, with long-term current use of insulin ([facility])- Primary Benign essential HTN Benign essential tremor Essential and other specified forms of tremor Bilateral carotid artery stenosis Occlusion and stenosis of carotid artery without mention of cerebral infarction Arteriosclerosis of coronary artery CKD stage 3a, GFR 45-59 ml/min ([facility] Mixed hyperlipidemia Mixed hyperlipidemia Vitamin D deficiency Encounter for long-term (current) use of medications Encounter for long-term (current) use of other medications Type 2 diabetes mellitus with stage 3a chronic kidney disease, with long-term current use of insulin ([facility]) Type 2 diabetes mellitus 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, with long-term current use of insulin ([facility]) Weakness of both legs- Primary Muscle weakness (generalized) Pneumonia of both lungs due to infectious organism, unspecified part of lung- Primary Type 2 diabetes mellitus with hyperglycemia, with long-term current use of insulin ([facility]) CLL (chronic lymphocytic leukemia) ([facility]) Chronic lymphoid leukemia, without mention of having achieved remission Immunodeficiency due to conditions classified elsewhere ([facility]) Change in voice- Primary Other voice and resonance disorders Hoarseness Dysphonia DDD (degenerative disc disease), lumbar Degeneration of lumbar or lumbosacral intervertebral disc PAD (peripheral artery disease) Unspecified peripheral vascular disease Type 2 diabetes mellitus with hyperglycemia, with long-term current use of insulin ([facility]) Bilateral carotid artery stenosis Occlusion and stenosis of carotid artery without mention of cerebral infarction Type 2 diabetes mellitus with hyperglycemia, with long-term current use of insulin ([facility])- Primary Benign essential HTN Chronic heart failure with preserved ejection fraction (HFpEF) ([facility]) Arteriosclerosis of coronary artery Benign essential tremor Essential and other specified forms of tremor PAD (peripheral artery disease) Unspecified peripheral vascular disease CKD stage 3b, GFR 30-44 ml/min ([facility]) 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HCC) Type 2 diabetes mellitus 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 (HCC) Gastrointestinal hemorrhage associated with acute gastritis- Primary Duodenitis Asymptomatic bradycardia Chronic heart failure with preserved ejection fraction (HFpEF) (HCC) Paroxysmal atrial fibrillation (HCC) Atrial fibrillation Benign essential tremor Essential and other specified forms of tremor Essential tremor Degeneration of intervertebral disc of lumbar region with discogenic back pain and lower extremity pain Medicare annual wellness visit, subsequent- Primary Type 2 diabetes mellitus with hyperglycemia, with long-term current use of insulin (HCC) Chronic heart failure with preserved ejection fraction (HFpEF) (HCC) CLL (chronic lymphocytic leukemia) (HCC) Chronic lymphoid leukemia, without mention of having achieved remission CKD stage 3b, GFR 30-44 ml/min ([facility]) PAD (peripheral artery disease) Unspecified peripheral vascular disease Paroxysmal atrial fibrillation (HCC) Atrial fibrillation Type 2 diabetes mellitus 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 (HCC) 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HCC) Immunodeficiency due to conditions classified elsewhere ([facility]) Benign essential HTN documented [facility] this encounter [facility]ructions[facility] on filedocumented in this [facility] SystemInstructionsNot on filedocumented in this [facility] SystemInstructionsNot on filedocumented in this [facility]ructionsNot on filedocumented in this [facility] InstructionsNot on filedocumented in this [facility] InstructionsNot on filedocumented in this [facility] InstructionsNot on filedocumented in this [facility] InstructionsNot on filedocumented in this [facility] InstructionsNot on filedocumented in this [facility] InstructionsNot on filedocumented in this [facility] InstructionsNot on filedocumented in this [facility] SystemReason for referral (narrative)* Consultation (Routine) - Pending Review Specialty Diagnoses / Procedures Referred By Lynne paniagua Referred To Contact Neurosurgery Diagnoses DDD (degenerative disc disease), lumbar Lumbar radiculopathy Cruzito Mcgrath MD [address] [place] [address] Solis Agarwal MD [address] [place] [address], [address] [place] [address] Referral ID Status Reason Start Date Expiration Date Visits Requested Visits Authorized [id number] Pending Review Specialty Services Required 03/24/2024 09/20/2024 1 1 [facility] (n[facility]ative)* Consultation (Routine) - Pending Review Specialty Diagnoses / Procedures Referred By Contac t Referred To Contact Cardiology Diagnoses Sinus pause Rickie Hirsch MD [address] [place] [address] Jerry An MD [address] [address] Referral ID Status Reason Start Date Expiration Date Visits Requested Visits Authorized [id number] Pending Review Specialty Services Required 08/27/2023 08/26/2024 1 1 [facility] SystemReason for referral (narrative)No reason for referral information [facility] Work Phone: Reason for visit Narrative* Consultation (Routine) - Pending Review Specialty Diagnoses / Procedures Referred By Contac t Referred To Contact Cardiac Rehabilitation Diagnoses S/P drug eluting coronary stent placement Procedures [facility] [place], [place] Rafa Roman MD [address] [place] [address] [facility] Cardiac Rehab Billing [address] [place] [address] Referral ID Status Reason Start Date Expiration Date V isits Requested Visits Authorized [id number] Pending Review 04/07/2023 04/06/2024 36 36 [facility]Reason [facility] Narrative* Misc (Routine) - Closed Specialty Diagnoses / Procedures Referred By Contac t Referred To Contact Diagnoses Obstructive sleep apnea Procedures Polysomnography 4 or More Parameters w/ James Umanzor MD [address] [facility] [place] [address] Phone: tel: fax: [facility] [address] [place] [address] Phone: tel: Referral ID Status Reason Start Date Expiration Date Visits Re quested Visits Authorized [id number] Closed 08/30/2024 08/30/2025 [address] [facility] [address] N[facility]* Consultation (Routine) - Closed Specialty Diagnoses / Procedures Referred By Lynne t Referred To Contact Neurology Diagnoses Tremor Procedures NE OFFICE/OUTPATIENT [facility] 60 MINUTES Cruzito Mcgrath MD [address] [place] [address] Phone: tel: fax: Zahraa Cristobla, [address] [place] [address] Phone: tel: fax: Referral ID Status Reason Start Date Expiration Date V isits Requested Visits Authorized [id number] Closed Consult and Treat 08/03/2024 01/30/2025 1 1 [facility] [place] for visit Narrative* [place] Prior Authorization (Routine) - Authorized Specialty Diagnoses / Procedures Referred By Lynne paniagua Referred To Contact Diagnoses Other iron deficiency anemia Raegan Arteaga, [employer] [address] [place] [address] [place] [address] Phone: tel: fax: Hematology/Oncology [address] [place] [address] [place] [address] Phone: tel: fax: Referral ID Status Reason Start Date Expiration Date V isits Requested Visits Authorized [id number] Authorized 07/23/2024 10/21/2024 99 99 [facility] Chief Complaint and Reason for Visit Chief Complaint Z01.818 I70.213 Chief Complaint Unknown Chief Complaint Refer Dr Mcgrath: PV D, bilat carotid stenosis I70.213 Reason for Visit PAD (peripheral daiana ry disease) Chief Complaint Refer Dr Mcgrath: PV D, bilat carotid stenosis I70.213 Radiculopathy, lumbar region 4 WK F/U GO OVER PVR [facility] I70.213 Reason for Visit PAD (peripheral daiana ry disease) Spondylosis of lumbar region without myelopathy or radiculopathy Trochanteric bursitis of both hips Claudication of left lower extremity Diminished pulses in lower extremity Former smoker Left leg pain PAD (peripheral artery disease) Chief Complaint Admit Date follow up low back pain May 20 8:45am 3 month follow up August 12, 2024 9 :36am Leg Pain, PVD w/ Claudication August 162024 11:43am Leg Pain, PVD w/ Claudication August 162024 2:12pm Reason for Visit Admit Date Spondylosis of lumbar region without myelopathy or radiculopathy May 20, 2024 8:45am Trochanteric bursitis of both hips Octob er 2023 8:45am Claudication of left lower extremity Simone uary 2024 9:36am Chief Complaint Admit Date ckd 3 February 08, 2025 1:35 pm Reason for Visit Admit Date Anemia of renal disease February 08, 2025 1:35pm CHF (congestive heart failure) January 1:35pm Chronic kidney disease, stage 3b February 082024 1:35pm Diabetic nephropathy associated with typ e 2 diabetes mellitus February 08, 2025 1:35pm Former smoker February 08, 2025 1:35 pm Hypertensive nephropathy February 08, 2025 1:35pm Chief Complaint Admit Date ckd 3 February 08, 2025 1:35 pm 4 month follow up March 10, 2025 11 :18am Reason for Visit Admit Date Anemia of renal disease February 08, 2025 1:35pm CHF (congestive heart failure) January 1:35pm Chronic kidney disease, stage 3b February 082024 1:35pm 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 February 08, 2025 1:35pm Former smoker February 08, 2025 1:35 pm Hypertensive nephropathy Toshia 22nd, 2025 1:35pm Polyneuropathy March 10, 2025 11 :18am Gait instability March 10, 2025 11 :18am Chief Complaint Admit Date ckd 3 February 08, 2025 1:35 pm 4 month follow up March 10, 2025 11 :18am possible uti April 07, 2025 3:01pm Reason for Visit Admit Date Anemia of renal disease February 08, 2025 1:35pm Chronic kidney disease, stage 3b February 082024 1:35pm 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 February 08, 2025 1:35pm Former smoker February 08, 2025 1:35 pm Hypertensive nephropathy February 08, 2025 1:35pm CHF (congestive heart failure) January 1:35pm Polyneuropathy March 10, 2025 11 :18am DDD (degenerative disc disease), lumbar March 10, 2025 11:18am Gait instability March 10, 2025 11 :18am Tremor March 10, 2025 11 :18am Advance Directives Advance Directive Response Recorded Date/ Time Advance Directives No January 01 4:38pm Advance Directive Response Recorded Date/ Time Advance Directives No January 01 3:38pm Documents on File Type Date Recorded Patient [employer] Expl anation Durable Power of Bead Wrapper 04/14/2023 3:27 PM Living Will 04/14/2023 3:19 PM Latest Code Status on File Code Status Date Activated Date Inactivated Comments Full Code 04/05/2023 2:40 PM 04/08/2023 6:56 PM Documents on File Type Date Recorded Patient [employer] Expl anation Durable Power of Bead Wrapper 04/14/2023 3:27 PM Living Will 04/14/2023 3:19 PM Latest Code Status on File Code Status Date Activated Date Inactivated Comments Full Code 04/05/2023 2:40 PM 04/08/2023 6:56 PM Date Activated Date Inactivated Comments 04/27/2024 12:28 PM 04/29/2024 6:50 PM Date Activated Date Inactivated Comments 04/26/2024 5:35 AM 04/27/2024 12:19 PM Date Activated Date Inactivated Comments 04/05/2023 2:40 PM 04/08/2023 6:56 PM Date Activated Date Inactivated Comments 04/05/2023 2:40 PM 04/08/2023 6:56 PM Date Activated Date Inactivated Comments 04/27/2024 12:28 PM Date Activated Date Inactivated Comments 04/27/2024 12:28 PM 04/29/2024 6:50 PM Date Activated Date Inactivated Comments 04/26/2024 5:35 AM 04/27/2024 12:19 PM Date Activated Date Inactivated Comments 04/05/2023 2:40 PM 04/08/2023 6:56 PM Summary Purpose Family History Relationship Condition Age at Onset Recorded Date/T carli Not Specified No pertinent family history Unknown father Unknown Not Specified Unknown Relationship Condition Age at Onset Recorded Date/T carli Not Specified No pertinent family history Unknown father Unknown mother Unknown Relationship Condition Age at Onset Recorded Date/T carli father Unknown Malignant neoplasm Unknown Diabetes mellitus Unknown mother Unknown Parkinson's disease Unknown Reason for Referral Specialty Diagnoses / Procedures Referred By Contac t Referred To Contact Diagnoses Bradycardia Procedures Holter monitor 24-48 hour Pamela Donald MD [address] [place] [address] Referral ID Status Reason Start Date Expiration Date V isits Requested Visits Authorized [id number] Pending Review 08/04/2023 08/03/2024 1 1 Additional [...] and content) DATE CREATED AUTHOR 06/10/[address] [facility] DATE CREATED AUTHOR AUTHOR'S ORGANIZ ATION 05/04/[address] [facility] DATE CREATED AUTHOR AUTHOR'S ORGANIZ ATION 08/24/2024 [facility] DATE CREATED AUTHOR AUTHOR'S ORGANIZ ATION 09/08/2024 [facility] DATE CREATED AUTHOR AUTHOR'S ORGANIZ ATION 11/24/2024 [facility] DATE CREATED AUTHOR AUTHOR'S ORGANIZ ATION 01/09/2025 [facility] DATE CREATED AUTHOR AUTHOR'S ORGANIZ ATION 03/21/2025 [facility] Source Comments (unrecognize d section and content) In the event this informatio n is protected by the Federal Confidentiality of Alcohol and Drug Abuse Patient Records regulations: The Federal rules restrict any use of the information to criminally investigate or prosecute any alcohol or drug abuse patient.[facility] Hospital[facility] the event this information is protected by the Federal Confidentiality of Alcohol and Drug Abuse Patient Records regulations: The Federal rules restrict any use of the information to criminally investigate or prosecute any alcohol or drug abuse patient.[facility] HospitalIn the event this information is protected by the Federal Confidentiality of Alcohol and Drug Abuse Patient Records regulations: The Federal rules restrict any use of the information to criminally investigate or prosecute any alcohol or drug abuse patient.[facility] HospitalIn the event this information is protected by the Federal Confidentiality of Alcohol and Drug Abuse Patient Records regulations: The Federal rules restrict any use of the information to criminally investigate or prosecute any alcohol or drug abuse patient.[facility] HospitalIn the event this information is protected by the Federal Confidentiality of Alcohol and Drug Abuse Patient Records regulations: The Federal rules restrict any use of the information to criminally investigate or prosecute any alcohol or drug abuse patient.[facility] HospitalIn the event this information is protected by the Federal Confidentiality of Alcohol and Drug Abuse Patient Records regulations: The Federal rules restrict any use of the information to criminally investigate or prosecute any alcohol or drug abuse patient.[facility] HospitalIn the event this information is protected by the Federal Confidentiality of Alcohol and Drug Abuse Patient Records regulations: The Federal rules restrict any use of the information to criminally investigate or prosecute any alcohol or drug abuse patient.[facility] HospitalIn the event this information is protected by the Federal Confidentiality of Alcohol and Drug Abuse Patient Records regulations: The Federal rules restrict any use of the information to criminally investigate or prosecute any alcohol or drug abuse patient.[facility] the event this information is protected by the Federal Confidentiality of Alcohol and Drug Abuse Patient Records regulations: The Federal rules restrict any use of the information to criminally investigate or prosecute any alcohol or drug abuse patient.[facility] HospitalIn the event this information is protected by the Federal Confidentiality of Alcohol and Drug Abuse Patient Records regulations: The Federal rules restrict any use of the information to criminally investigate or prosecute any alcohol or drug abuse patient.[facility] HospitalIn the event this information is protected by the Federal Confidentiality of Alcohol and Drug Abuse Patient Records regulations: The Federal rules restrict any use of the information to criminally investigate or prosecute any alcohol or drug abuse patient.[facility] the event this information is protected by the Federal Confidentiality of Alcohol and Drug Abuse Patient Records regulations: The Federal rules restrict any use of the information to criminally investigate or prosecute any alcohol or drug abuse patient.[facility] HospitalIn the event this information is protected by the Federal Confidentiality of Alcohol and Drug Abuse Patient Records regulations: The Federal rules restrict any use of the information to criminally investigate or prosecute any alcohol or drug abuse patient.[facility] HospitalIn the event this information is protected by the Federal Confidentiality of Alcohol and Drug Abuse Patient Records regulations: The Federal rules restrict any use of the information to criminally investigate or prosecute any alcohol or drug abuse patient.[facility] HospitalIn the event this information is protected by the Federal Confidentiality of Alcohol and Drug Abuse Patient Records regulations: The Federal rules restrict any use of the information to criminally investigate or prosecute any alcohol or drug abuse patient.[facility] HospitalIn the event this information is protected by the Federal Confidentiality of Alcohol and Drug Abuse Patient Records regulations: The Federal rules restrict any use of the information to criminally investigate or prosecute any alcohol or drug abuse patient.[facility] Reason for Visit (unrecogniz ed section and content) Reason Comments leukocytosis Reason Comments Established Patient Reason Comments CLL Reason Comments Leukemia Reason Comments Follow-up 6m Reason Onset Date Comments Med Refill 06/14/2024 Reason Onset Date Comments Med Refill 06/21/2024 Reason Comments Follow-up [facility] cardiology f./u p Reason Comments Med Change Request Reason Comments Hoarseness Specialty Diagnoses / Procedures Referred By Contrebeka t Referred To Contact Otolaryngology Diagnoses Change in voice Hoarseness Procedures NE OFFICE/OUTPATIENT NEW HIGH MDM 60 MINUTES Cruzito Mcgrath MD [address] [place] [address] Jeromy Mejia MD [address] [place] [address] Referral ID Status Reason Start Date Expiration Date V isits Requested Visits Authorized [id number] Closed Specialty Services Required 02/26/2024 08/24/2024 1 1 Reason Comments Skin Check Reason Comments CLL 6 month follow up Reason Comments Transfusion Reason Comments Anemia IV iron orders/scheduling Specialty Diagnoses / Procedures Referred By Lynne t Referred To Contact Diagnoses Other iron deficiency anemia Raegan Arteaga APRN.[address] [place] [address] Angel Treat Kelley[address] [place] [address] Referral ID Status Reason Start Date Expiration Date V isits Requested Visits Authorized [id number] Authorized 07/23/2024 10/21/2024 99 99 Reason Comments Follow-up Reason Onset Date Comments Sleep Lab 08/30/2024 BiPAP Reason Comments Follow-up OV F/U 1 MO BRADYCAR FUNMILAYO, HM DONE PER LLD SCHED W/PT Reason Comments New Patient ov (consult) per MS sinus pause states needs ppm imp - per sonam shlomo with ep myles while ep md in office - shlomo w pt Specialty Diagnoses / Procedures Referred By Lynne t Referred To Contact Cardiology Diagnoses Sinus pause Rickie Hirsch MD [address] [place] [address] Jerry An MD [address] [place] [address] [place] [address] Referral ID Status Reason Start Date Expiration Date Visits Requested Visits Authorized [id number] Pending Review Specialty Services Required 08/27/2023 08/26/2024 1 1 Reason Onset Date Comments cancel appointment 03/09/2024 patient crowe d to cancel appointment did not want to reschedule Reason Onset Date Comments new consult 04/26/2024 Elev. trops Reason Comments Med Refill Reason Onset Date Comments Hypertension 04/28/2024 Reason Onset Date Comments continuation of orders 04/28/2024 Contract: [facility] d [phone] [facility] continuation of orders; A534 Reason Onset Date Comments abnormal rhythm 04/29/2024 Reason Comments Lab Orders Reason Comments iron lab results Reason Comments Medicare Annual Wellness Visit Subsequen t wellness Reason Comments Tremors Extremity Weakness Balance difficulty Reason Onset Date Comments Med Refill 01/05/2025 Care Teams (unrecognized sec tion and content) An/Sqq 89(V)15 [employer] System Journeyman Relationship Specialty Start Date End Date Cruzito Mcgrath [address] [place] [address] PCP - General Family Medicine 06/21/22 An/Sqq 89(V)15 Sonar System Journeyman Relationship Specialty Start Date End Date Cruzito Mcgrath [address] [place] [address] PCP - General Family Medicine 06/21/22 An/Sqq 89(V)15 Sonar System Journeyman Relationship Specialty Start Date End Date StantonCruzito [address] [place] [address] PCP - General Family Medicine 06/21/22 Team Status: Inactive Member Role Status Dates Arminda Valverde DO Attending Provider Active Sta rt: December 27, 2023 End: December 27, 2023 An/Sqq 89(V)15 [employer] System Journeyman Relationship Specialty Start Date End Date Cruzito Mcgrath Yuriy [address] [place] [address] PCP - General Family Medicine 06/21/22 Team [...] April 20, 2024 End: April 20, 2024 An/Sqq 89(V)15 Sonar System Journeyman Relationship Specialty Start Date End Date Cruzito Mcgrath MD [address] [place] [address] PCP - General Family Medicine 04/20/23 An/Sqq 89(V)15 Sonar System Journeyman Relationship Specialty Start Date End Date Cruzito Mcgrath MD [address] [place] [address] PCP - General Family Medicine 04/20/23 An/Sqq 89(V)15 Sonar System Journeyman Relationship Specialty Start Date End Date Cruzito Mcgrath MD [address] [place] [address] PCP - General Family Medicine 04/20/23 An/Sqq 89(V)15 Sonar System Journeyman Relationship Specialty Start Date End Date Cruzito Mcgrath MD [address] [place] [address] PCP - General Family Medicine 04/20/23 An/Sqq 89(V)15 Sonar System Journeyman Relationship Specialty Start Date End Date Cruzito Mcgrath MD [address] [place] [address] PCP - General Family Medicine 04/20/23 An/Sqq 89(V)15 Sonar System Journeyman Relationship Specialty Start Date End Date Cruzito Mcgrath MD [address] [place] [address] PCP - General Family Medicine 04/20/23 An/Sqq 89(V)15 Sonar System Journeyman Relationship Specialty Start Date End Date Cruzito Mcgrath MD [address] [place] [address] PCP - General Family Medicine 04/20/23 An/Sqq 89(V)15 Sonar System Journeyman Relationship Specialty Start Date End Date Cruzito Mcgrath MD [address] [place] [address] PCP - General Family Medicine 04/20/23 An/Sqq 89(V)15 Sonar System Journeyman Relationship Specialty Start Date End Date Cruzito Mcgrath MD [address] [place] [address] PCP - General Family Medicine 04/20/23 An/Sqq 89(V)15 Sonar System Journeyman Relationship Specialty Start Date End Date Cruzito Mcgrath MD [address] [place] [address] PCP - General Family Medicine 04/20/23 An/Sqq 89(V)15 Sonar System Journeyman Relationship Specialty Start Date End Date Cruzito Mcgrath MD [address] [place] [address] PCP - General Family Medicine 04/20/23 An/Sqq 89(V)15 Sonar System Journeyman Relationship Specialty Start Date End Date Cruzito Mcgrath MD [address] [place] [address] PCP - General Family Medicine 04/20/23 An/Sqq 89(V)15 Sonar System Journeyman Relationship Specialty Start Date End Date Cruzito Mcgrath MD [address] [place] [address] PCP - General Family Medicine 04/20/23 An/Sqq 89(V)15 Sonar System Journeyman Relationship Specialty Start Date End Date Cruzito Mcgrath MD [address] [place] [address] PCP - General Family Medicine 06/21/22 An/Sqq 89(V)15 Sonar System Journeyman Relationship Specialty Start Date End Date Cruzito Mcgrath MD [address] [place] [address] PCP - General Family Medicine 06/21/22 An/Sqq 89(V)15 Sonar System Journeyman Relationship Specialty Start Date End Date Cruzito Mcgrath MD [address] [place] [address] PCP - General Family Medicine 06/21/22 An/Sqq 89(V)15 Sonar System Journeyman Relationship Specialty Start Date End Date Cruzito Mcgrath MD [address] [place] [address] PCP - General Family Medicine 04/20/23 An/Sqq 89(V)15 Sonar System Journeyman Relationship Specialty Start Date End Date Cruzito Mcgrath MD [address] [place] [address] PCP - General Family Medicine 06/21/22 An/Sqq 89(V)15 Sonar System Journeyman Relationship Specialty Start Date End Date Cruzito Mcgrath MD [address] [place] [address] PCP - General Family Medicine 06/21/22 An/Sqq 89(V)15 Sonar System Journeyman Relationship Specialty Start Date End Date Cruzito Mcgrath MD [address] [place] [address] PCP - General Family Medicine 04/20/23 An/Sqq 89(V)15 Sonar System Journeyman Relationship Specialty Start Date End Date Cruzito Mcgrath MD [address] [place] [address] PCP - General Family Medicine 06/21/22 Team Status: Inactive Member Role Status Dates Cruzito Mcgrath MD Primary Care Provider Active S tart: May 20, 2024 End: May 20, 2024 Solis Agarwal MD Attending Provider Active Star t: May 20, 2024 End: May 20, 2024 Team Status: Active Member Role Status Dates Cruzito Mcgrath MD Primary Care Provider Active S tart: June 09, 2024 Vinayak Grier DO Attending Provider Active Sta rt: June 09, 2024 Team Status: Inactive Member Role Status Dates Cruzito Mcgrath MD Primary Care Provider Active S tart: August 12, 2024 End: August 12, 2024 Luiz Glass MD Attending Provider Active Start: August 12, 2024 End: August 12, 2024 Team Status: Inactive Member Role Status Dates Cruzito Mcgrath MD Primary Care Provider Active S tart: August 16, 2024 End: August 16, 2024 Luiz Glass MD Attending Provider Active Start: August 16, 2024 End: August 16, 2024 Team Status: Active Member Role Status Dates Cruzito Mcgrath MD Primary Care Provider Active S tart: August 16, 2024 Luiz Glass MD Attending Prov ider, Other Provider Active Start: August 16, 2024 An/Sqq 89(V)15 Sonar System Journeyman Relationship Specialty Start Date End Date Cruzito Mcgrath MD [address] [place] [address] PCP - General Family Medicine 04/20/23 An/Sqq 89(V)15 Sonar System Journeyman Relationship Specialty Start Date End Date Cruzito Mcgrath MD [address] [place] [address] PCP - General Family Medicine 04/19/21 An/Sqq 89(V)15 Sonar System Journeyman Relationship Specialty Start Date End Date Cruzito Mcgrath MD [address] [place] [address] PCP - General Family Medicine 04/19/21 An/Sqq 89(V)15 Sonar System Journeyman Relationship Specialty Start Date End Date Cruzito Mcgrath MD [address] [place] [address] PCP - General Family Medicine 04/19/21 An/Sqq 89(V)15 Sonar System Journeyman Relationship Specialty Start Date End Date Cruzito Mcgrath MD [address] [facility] [address] PCP - General Family Medicine 04/19/21 An/Sqq 89(V)15 Sonar System Journeyman Relationship Specialty Start Date End Date Cruzito Mcgrath MD [address] [facility] [place] [address] PCP - General Family Medicine 04/19/21 An/Sqq 89(V)15 Sonar System Journeyman Relationship Specialty Start Date End Date Cruzito Mcgrath MD [address] [facility] [address] PCP - General Family Medicine 04/19/21 An/Sqq 89(V)15 Sonar System Journeyman Relationship Specialty Start Date End Date Cruzito Mcgrath MD [address] [facility] [place] [address] PCP - General Family Medicine 04/19/21 An/Sqq 89(V)15 Sonar System Journeyman Relationship Specialty Start Date End Date Cruzito Mcgrath MD PCP - General Family Medicine 04/19/21 An/Sqq 89(V)15 Sonar System Journeyman Relationship Specialty Start Date End Date Cruzito Mcgrath MD [address] [facility] [place] [address] PCP - General Family Medicine 04/19/21 An/Sqq 89(V)15 Sonar System Journeyman Relationship Specialty Start Date End Date Cruzito Mcgrath MD [address] [facility] [address] PCP - General Family Medicine 04/19/21 An/Sqq 89(V)15 Sonar System Journeyman Relationship Specialty Start Date End Date Cruzito Mcgrath MD [address] [facility] [place] [address] PCP - General Family Medicine 04/19/21 An/Sqq 89(V)15 Sonar System Journeyman Relationship Specialty Start Date End Date Cruzito Mcgrath MD [address] [facility] [place] [address] PCP - General Family Medicine 04/19/21 An/Sqq 89(V)15 Sonar System Journeyman Relationship Specialty Start Date End Date Cruzito Mcgrath MD [address] [place] [address] PCP - General Family Medicine 04/19/21 An/Sqq 89(V)15 Sonar System Journeyman Relationship Specialty Start Date End Date Cruzito Mcgrath MD [address] [place] [address] PCP - General Family Medicine 04/19/21 An/Sqq 89(V)15 Sonar System Journeyman Relationship Specialty Start Date End Date Cruzito Mcgrath MD [address] [place] [address] PCP - General Family Medicine 04/19/21 An/Sqq 89(V)15 Sonar System Journeyman Relationship Specialty Start Date End Date Cruzito Mcgrath MD PCP - General Family Medicine 04/19/21 An/Sqq 89(V)15 Sonar System Journeyman Relationship Specialty Start Date End Date Cruzito Mcgrath MD PCP - General Family Medicine 04/19/21 An/Sqq 89(V)15 Sonar System Journeyman Relationship Specialty Start Date End Date Cruzito Mcgrath MD PCP - General Family Medicine 04/19/21 An/Sqq 89(V)15 Sonar System Journeyman Relationship Specialty Start Date End Date Cruzito Mcgrath MD PCP - General Family Medicine 04/19/21 An/Sqq 89(V)15 Sonar System Journeyman Relationship Specialty Start Date End Date Cruzito Mcgrath MD PCP - General Family Medicine 04/19/21 An/Sqq 89(V)15 Sonar System Journeyman Relationship Specialty Start Date End Date Cruzito Mcgrath MD [address] [place] [address] PCP - General Family Medicine 04/20/23 Cruzito Mcgrath MD [address] [place] [address] PCP - ACO Reach 08/27/24 An/Sqq 89(V)15 Sonar System Journeyman Relationship Specialty Start Date End Date Cruzito Mcgrath MD [address] [place] [address] PCP - General Family Medicine 04/20/23 Cruzito Mcgrath MD [address] [place] [address] PCP - ACO Reach 08/27/24 An/Sqq 89(V)15 Sonar System Journeyman Relationship Specialty Start Date End Date Cruzito Mcgrath MD [address] [place] [address] PCP - General Family Medicine 04/20/23 Cruzito Mcgrath MD [address] [place] [address] PCP - ACO Reach 08/27/24 An/Sqq 89(V)15 Sonar System Journeyman Relationship Specialty Start Date End Date Cruzito Mcgrath MD [address] [place] [address] PCP - General Family Medicine 04/20/23 Cruzito Mcgrath MD [address] [place] [address] PCP - ACO Reach 08/27/24 An/Sqq 89(V)15 Sonar System Journeyman Relationship Specialty Start Date End Date Cruzito Mcgrath MD [address] [place] [address] PCP - General Family Medicine 06/21/22 An/Sqq 89(V)15 Sonar System Journeyman Relationship Specialty Start Date End Date Cruzito Mcgrath MD [address] [place] [address] PCP - General Family Medicine 06/21/22 An/Sqq 89(V)15 Sonar System Journeyman Relationship Specialty Start Date End Date Cruzito Mcgrath MD PCP - General Family Medicine 04/19/21 An/Sqq 89(V)15 Sonar System Journeyman Relationship Specialty Start Date End Date Cruzito Mcgrath MD [address] [place] [address] PCP - General Family Medicine 06/21/22 An/Sqq 89(V)15 Sonar System Journeyman Relationship Specialty Start Date End Date Cruzito Mcgrath MD [address] [place] [address] PCP - General Family Medicine 04/20/23 Cruzito Mcgrath MD [address] [place] [address] PCP - ACO Reach 08/27/24 An/Sqq 89(V)15 Sonar System Journeyman Relationship Specialty Start Date End Date Cruzito Mcgrath MD [address] [place] [address] PCP - General Family Medicine 04/20/23 Cruzito Mcgrath MD [address] [place] [address] PCP - ACO Reach 08/27/24 An/Sqq 89(V)15 Sonar System Journeyman Relationship Specialty Start Date End Date Cruzito Mcgrath MD PCP - General Family Medicine 04/19/21 An/Sqq 89(V)15 Sonar System Journeyman Relationship Specialty Start Date End Date Cruzito Mcgrath MD [address] [place] [address] PCP - General Family Medicine 04/20/23 Cruzito Mcgrath MD [address] [place] [address] PCP - ACO Reach 08/27/24 An/Sqq 89(V)15 Sonar System Journeyman Relationship Specialty Start Date End Date Cruzito Mcgrath MD [address] [place] [address] PCP - General Family Medicine 04/20/23 Cruzito Mcgrath MD [address] [place] [address] PCP - ACO Reach 08/27/24 An/Sqq 89(V)15 Sonar System Journeyman Relationship Specialty Start Date End Date Cruzito Mcgrath MD [address] [place] [address] PCP - General Family Medicine 04/20/23 Cruzito Mcgrath MD [address] [place] [address] PCP - ACO Reach 08/27/24 Team Status: Inactive Member Role Status Dates Cruzito Mcgrath MD Primary Care Provider Active S tart: February 08, 2025 End: February 08, 2025 Vivi Sandoval MD Attending Provider Active Star t: February 08, 2025 End: February 08, 2025 Team Status: Inactive Member Role Status Dates Cruzito Mcgrath MD Primary Care Provider Active S tart: March 10, 2025 End: March 10, 2025 THERESA Lino Attending Provider Active Start: March 10, 2025 End: March 10, 2025 An/Sqq 89(V)15 Sonar System Journeyman Relationship Specialty Start Date End Date Cruzito Mcgrath MD [address] [place] [address] PCP - General Family Medicine 04/20/23 Cruzito Mcgrath MD [address] [place] [address] PCP - ACO Reach 08/27/24 Team Status: Active Member Role Status Dates Cruzito Mcgrath MD Primary Care Provider Active S tart: March 30, 2025 THERESA Lino Attending Provider Active Start: March 30, 2025 Team Status: Inactive Member Role Status Dates Cruzito Mcgrath MD Primary Care Provider Active S tart: April 07, 2025 End: April 07, 2025 Cruzito Mcgrath MD Attending Provider Active Star t: April 07, 2025 End: April 07, 2025 FOR RECORDS PERTAINING TO PATIENTS WHO ARE [...] BE BASED ON THE PRIMARY CLINICAL RECORDS. [facility] [employer] [facility]. provides no warranty or guarantee of the accuracy or completeness of information in this document.
[2025-04-08 11:52] LABS: Glucose Urine UA 100 mg/dL (NEGATIVE)
== END 2025-04-08 11:26 | disposition home or self-care (01) ==
LOC: LAB 11:26
PROVIDERS: PCP Family Medicine; Visit Provider Family Medicine
DX: R30.0 Dysuria (principal)
CPT/HCPCS: 81003; 87077; 87086

== ENCOUNTER 2025-05-25 14:54 | Outpatient (RCR) | payer MEDICARE, SELFPAY | END 2025-07-07 07:11 | disposition home or self-care (01) | LOC: PT 14:54 | PROVIDERS: PCP Family Medicine; Visit Provider Family Medicine | DX: R53.1 Weakness (principal); M47.816 Spondylosis without myelopathy or radiculopathy, lumbar region; Z91.81 History of falling | CPT/HCPCS: 97110; 97112; 97162 ==

== ENCOUNTER 2025-07-13 10:32 | Emergency (ER) | payer MEDICARE, SELFPAY ==
--- OUTSIDE RECORDS SUMMARY | 2025-07-05 11:00 | XMS_ITS | Encounter Summary ---
Author Organization [facility] Address [address] [place] [address] Care Team Providers Care Inspector Balance Truing Name Role Phone Cruzito Eid MD Primary Care Provider [phone] Source Comments In the event this information is protected by the Federal Confidentiality of Alcohol and Drug AbusePatient Records regulations: The Federal rules restrict any use of the information to criminally investigate or prosecute any alcohol or drug abuse patient.[facility] Reason for Visit * ReasonCommentsEstablished PatientAnemia Encounter Details DateTypeDepartmentCare Team (Latest Contact Info)Drsvvmkalod64/16/2025 11:00 AM ESTVisit (SP) Office Hematology/Oncology [address] [place] [address] [place] [address] Angelina Manuel APRN.[facility] [address] [place] [address] Other iron deficiency anemia (Primary Dx); Anemia, unspecified type; CLL (chronic lymphocytic leukemia) (HCC); Malaise and fatigue; Stage 3 chronic kidney disease, unspecified whether stage 3a or 3b CKD (HCC); Dizziness and giddiness Social History Tobacco UseTypesPacks/DayYears UsedDateSmoking Tobacco: FormerCigarettesPassive Smoke Exposure: PastSmokeless Tobacco: NeverAlcohol UseStandard Drinks/Week CommentsNot Asked0 (1 standard drink = 0.6 oz pure alcohol)PHQ-2AnswerDate RecordedPHQ-2 xopvp694rea Deprivation IndexAnswerDate RecordedNational Score (1-100), lower number is lower kpox982312/27/2022State Score (1-10), lower number is lower [id number] from: https://www.neighborhoodatlas.[facility]/. Last address used for [id number] [facility] Eahvkl3912/27/2022Sex and Gender InformationValueDate Recorded Sex Assigned at BirthNot on fileLegal AsvHgfs82/28/2022 2:29 PM ESTGender IdentityNot on fileSexual OrientationNot on filedocumented as of this encounter Last Filed Vital Signs Vital SignReadingTime TakenCommentsBlood Bcbqkvpb947/6407/05/2025 11:29 AM EST Hqfim572307/05/2025 11:29 AM AOKYlqcrvrxufy28.3 ??C (97.4 ??F)07/05/2025 11:29 AM ESTRespiratory Hytj886609/05/2024 11:29 AM ESTOxygen Bucphydmzm23%07/05/2025 11:29 AM ESTInhaled Oxygen Concentration--Lujshl89.6 kg (168 lb 12.8 oz)07/05/2025 11:29 AM ESTHeight--Body Mass Index26.03109/09/2023 1:41 PM ESTdocumented in this encounter Progress Notes * Angelina Manuel APRN.CASHIER CHECKER - 07/05/2025 11:00 AM EST Images from the original note were not included. NAME: Cedric Rojas CLINIC NO.: [id number] DATE OF SERVICE: July 05, 2025 (Mar) Some elements in this clinic note that are critical to medical decision making have been carefully reviewed and included from a prior clinic note dated: May 02, 2025 (Mar) Referring Provider: Cruzito Eid Additional Clinicians involved in Cedric Rojas's care: May 02, 2025 (Mar) DIAGNOSIS: lymphocytosis CASE SUMMARY / ASSESSMENT: 79 year old man with DM [...] >300 and to follow up with PCP SUMMARIZED PLAN: Continue protonix, plavix, EC aspirin Stay off Eliquis Follow up with PCP for DM control RV in 3 months with labs one week prior. Proceed with IV iron today. AI ASSISTED A/P: 1. Other iron deficiency anemia (D50.8) 2. Anemia, unspecified type (D64.9) 3. Malaise and fatigue (R53.81) 4. Dizziness and giddiness (R42) Hemoglobin has decreased from 10.1 in April to 9.5 today; ferritin remains low at 42. Patient reports increased fatigue and dizziness, but no new shortness of breath. Iron deficiency anemia is persistent and symptomatic, likely contributing to malaise and dizziness. No evidence of acute GI bleeding. White blood cell count stable. - Administer IV iron infusion today in clinic. - Return to clinic in 3 months with labs 1 week prior to visit. - Instructed patient to call if symptoms worsen or if there is a delay in communication regarding labs or treatment. - No Eliquis; continue current medications as previously prescribed. 5. CLL (chronic lymphocytic leukemia) ([facility]) (C91.10) WBC count remains stable with no significant change. No new B symptoms or exam findings to suggest CLL progression. - Continue routine monitoring. 6. Stage 3 chronic kidney disease, unspecified whether stage 3a or 3b CKD (HCC) (N18.30) CKD remains mild and stable. No new issues identified on review of recent labs. - Continue routine monitoring. CASE HISTORY: Reverse Chronological Order 04/04/2023 - Admitted to [facility] with NSTEMI Underwent placement of drug eluting [...] 06/06/2022 - CBC 18.8>14.0/39.7<185 Abs. Lymph: 10.1 HPI: Updated Visit, July 06, 2025: The patient is a 79-year-old male with CLL and iron deficiency anemia presenting for follow-up. He is accompanied by a geophysical manager who provides additional history. The patient has a history of CLL and iron deficiency anemia. He has previously received iron infusions, most recently over 1 year ago. Hedoes not take oral iron supplements. He is no longer taking Eliquis. He was last seen in 04/2025, with labs at that time showing borderline anemia. Today, he reports increased fatigue, excessive sleepiness, and dizziness. He denies shortness of breath, pica, fever, chills, night sweats, or new lymphadenopathy. Updated Visit, May 02, 2025: Since his last visit, he reports two falls on 04/18, resulting in sore knees. He also reports feeling weak and describes his ribs as feeling weak. He reports dizziness but denies lightheadedness. He reports eating well and gaining weight. He denies fever, chills, early satiety, lymphadenopathy, and night sweats. He is following with his primary care provider and has neurology and nephrology appointments scheduled for tomorrow. Iron studies pending, will call results and follow-up accordingly. Updated Visit, October 25, 2024: Alexis returns today with his Sabrina, for a follow-up. Overall feeling well. Continues to have fatigue. denies fevers, chills, early satiety, weight loss, lymph nodes or pain or night sweats. Deniesany chest pain or shortness of breath. Iron studies pending, will call with results and follow up accordingly. Hgb 9.6 today. Updated Visit, July 16, 2024: Cedric returns with his today Sabrina. Still on [...] of breath. Updated Visit, July 09, 2024: Cedric returns for 6 month follow up. Was [...] of breath. Updated Visit, January 16, 2024: Cedric returns with Sabrina, who reports he has been napping more often. He is recovering from pneumonia. He denies night sweats, fever, chills. He has lost 17 lbs since last visit, gained 8 lbs back on today's check. He admits to a diminished appetite for a period of time, now recovered. Renal function has worsened, although CLL is stable. Updated Visit, July 16, 2023: Cedric returns today with his Sabrina. He unfortunately [...] Has been sleeping more, especially since the [place]. Updated Visit, December 27, 2022: 13 year [...] No complaints. Initial Visit, June 21, 2022: Cedric Rojas presents today Hematology and Oncology evaluation. He [...] PERFORMANCE STATUS: 0 PHYSICAL EXAMINATION: Vitals: BP 121/64 Pulse 68 Temp (Src) 97.4 (Temporal) Resp 18 Wt 168 lb 12.8 oz (76.6kg) SpO2 93% Body surface area is 1.91 meters squared. General: Alert and oriented, no distress, pleasant and cooperative. Heart: Regular, normal S1 and S2, no murmurs, rubs, or gallops, pacemaker left chest wall Lungs: Clear to auscultation bilaterally Abdomen: Benign, no HSM palpable Extremities: Feet/ankles without edema, posterior tibial pulses full and symmetrical Lymph: no cervical, SC or axillary nodes on exam ALLERGIES: No Known Allergies MEDICATIONS: ubidecarenone (CO Q-10 PO) Take by mouth. losartan (COZAAR) 100 mg tablet Take 100 mg by mouth once daily. semaglutide (RYBELSUS) 3 mg tablet Take 3 mg by mouth daily before breakfast. QUEtiapine (SEROQUEL) 25 mg tablet Take 25 mg by mouth daily at bedtime. resveratroL 250 mg cap Take 2 capsules [...] Take 40 mg by mouth once daily. primidone (MYSOLINE) 50 mg tablet Take 50 mg by mouth daily at bedtime. metFORMIN (GLUCOPHAGE) 500 mg tablet Take 500 [...] Take 50 mg by mouth once daily. LABORATORY VALUES: WBC (k/uL) Date Value 06/27/2025 19.37 (H) RBC (m/uL) Date Value 06/27/2025 3.26 (L) Hemoglobin (g/dL) Date Value 06/27/2025 9.5 (L) Hematocrit (%) Date Value 06/27/2025 28.4 (L) MCV (fL) Date Value 06/27/2025 87.1 MCH (pg) Date Value 06/27/2025 29.1 MCHC (g/dL) Date Value 06/27/2025 33.5 RDW-CV (%) Date Value 06/27/2025 13.2 Platelet Count (k/uL) Date Value 06/27/2025 187 MPV (fL) Date Value 06/27/2025 9.7 Glucose (mg/dL) Date Value 06/27/2025 69 (L) BUN (mg/dL) Date Value 06/27/2025 29 (H) Creatinine (mg/dL) Date Value 06/27/2025 2.05 (H) Sodium (mmol/L) Date Value 06/27/2025 142 Potassium (mmol/L) Date Value 06/27/2025 4.7 Chloride (mmol/L) Date Value 06/27/2025 105 CO2 (mmol/L) Date Value 06/27/2025 28 Protein, Total (g/dL) Date Value 06/27/2025 6.2 (L) Albumin (g/dL) Date Value 06/27/2025 4.0 Calcium, Total (mg/dL) Date Value 06/27/2025 9.2 Alkaline Phosphatase (U/L) Date Value 06/27/2025 78 Bilirubin, Total (mg/dL) Date Value 06/27/2025 0.3 AST (U/L) Date Value 06/27/2025 12 (L) ALT (U/L) Date Value 06/27/2025 11 DIAGNOSIS: (D50.8) Other iron deficiency anemia (primary encounter diagnosis) (D64.9) Anemia, unspecified type (C91.10) CLL (chronic lymphocytic leukemia) (HCC) (R53.81, R53.83) Malaise and fatigue (N18.30) Stage 3 chronic kidney disease, unspecified whether stage 3a or 3b CKD (HCC) (R42) Dizziness and giddiness PAST MEDICAL HISTORY Diagnosis Date CAD (coronary artery disease) Diabetes mellitus (HCC) Dyslipidemia Heart attack (HCC) History of recent blood transfusion Hx of heart artery stent Hypertension Inguinal hernia Left Leukocytosis Pacemaker Peripheral vascular disease Vitamin D deficiency PAST SURGICAL HISTORY Procedure [...] which included preparing to see the patient, quqy-hf-vpzh patient care, completing clinical documentation, obtaining and/or reviewing separately obtained history, performing a medically appropriate examination, counseling and educating the pat ient/family/caregiver, ordering medications, tests, or procedures, communicating with other HCPs (not separately reported), independently interpreting results (not separately reported), communicatingresults to the patient/family/caregiver, and care coordination (not separately reported). . Angelina Manuel APRN, PARA EDUCATOR-C, OCN Hematology and Oncology Services Provided at: [place], [place] CC: Cruzito Eid MD ([facility]) [address] [facility] [address] documented in this encounter Plan of Treatment DateTypeDepartmentCare Team (Latest Contact Info)Hcurlaulvrl36/08/2026 11:15 AM EDTOffice Visit [facility] [address] [place] [address] [place] [address] 6 month lab10/31/2025 11:00 AM EDTVisit (SP) Office Hematology/Oncology [address] [place] [address] [place] [address] Angelina Manuel APRN.CASHIER CHECKER [address] [place] [address] [place] [address] 6 month labdocumented as of this encounter Visit Diagnoses Diagnosis Other iron deficiency anemia- Primary Anemia, unspecified type CLL (chronic lymphocytic leukemia) (HCC) Chronic lymphoid leukemia, without mention of having achieved remission Malaise and fatigue Other malaise and fatigue Stage 3 chronic kidney disease, unspecified whether stage 3a or 3b CKD (HCC) Dizziness and giddiness documented in this encounter Care Teams Team MemberRelationshipSpecialtyStart DateEnd Date Cruzito Eid MD [address] [place] [address] PCP - GeneralFamily Wjnfjtni19/2/22documented as of this encounter
--- OUTSIDE RECORDS SUMMARY | 2025-07-05 12:15 | XMS_ITS | Encounter Summary ---
Author Organization [facility] Address [address] [place] [address] Care Team Providers Care Tower Foreman Name Role Phone Cruzito Eid MD Primary Care Provider [phone] Source Comments In the event this information is protected by the Federal Confidentiality of Alcohol and Drug AbusePatient Records regulations: The Federal rules restrict any use of the information to criminally investigate or prosecute any alcohol or drug abuse patient.[facility] Reason for Visit * [place] Prior Authorization (Routine) - AuthorizedSpecialtyDiagnoses / ProceduresReferred By ContactReferred To Contact Diagnoses Other iron deficiency anemia Angelina Manuel APRN.[address] [place] [address] Phone: tel: fax: Hematology/Oncology [address] [place] [address] [place] [address] Phone: tel: fax: Referral IDStatusReasonStart DateExpiration DateVisits RequestedVisits [id number] Encounter Details DateTypeDepartmentCare Team (Latest Contact Info)Pqilhiozrjk37/16/2025 12:15 PM ESTInfusion Center Hematology/Oncology [address] [place] [address] [place] [address] Other iron deficiency anemia (Primary Dx) Social History Tobacco UseTypesPacks/DayYears UsedDateSmoking Tobacco: FormerCigarettesPassive Smoke Exposure: PastSmokeless Tobacco: NeverAlcohol UseStandard Drinks/Week CommentsNot Asked0 (1 standard drink = 0.6 oz pure alcohol)PHQ-2AnswerDate RecordedPHQ-2 [id number] Deprivation IndexAnswerDate RecordedNational Score (1-100), lower number is lower fkuu789012/27/2022State Score (1-10), lower number is lower vhdk1223Data from: https://www.neighborhoodatlas.[facility].edu/. Last address used for flnqix[address]gaw[address] [facility]12/27/2022Sex and Gender InformationValueDate Recorded Sex Assigned at BirthNot on fileLegal CukAudw59/28/2022 2:29 PM ESTGender IdentityNot on fileSexual OrientationNot on filedocumented as of this encounter Last Filed Vital Signs Vital SignReadingTime TakenCommentsBlood Wosgssxf800/7807/05/2025 2:39 PM EST Qwxap293307/05/2025 2:39 PM ESTTemperature--Respiratory Rate--Oxygen Jokrhggirv47% 07/05/2025 2:39 PM ESTInhaled Oxygen Concentration--Weight--Height--Body Mass Index--documented in this encounter Plan of Treatment DateTypeDepartmentCare Team (Latest Contact Info)Ewxjapojatc77/08/2026 11:15 AM EDTOffice Visit [facility] [address] [place] [address] [place] [address] 6 month lab10/31/2025 11:00 AM EDTVisit (SP) Office Hematology/Oncology [address] [place] [address] [place] [address] Angelina Manuel APRN.INFORMATICS DEVELOPER [address] [place] [address] [place] [address] 6 month labdocumented as of this encounter Visit Diagnoses Diagnosis Other iron deficiency anemia- Primary documented in this encounter Administered Medications Medication OrderMAR ActionAction DateDoseRateSite acetaminophen 650 mg tab(s) (TYLENOL) 650 mg, ORAL, ONCE, 1 dose, On Fri07/05/25 at 1230, No more than 4000 mg of acetaminophen should be given per day (FROM ALL SOURCES) Indications:Other iron deficiency ghjezvLpgna25/16/2025 12:31 PM AQR835 mg famotidine 20 mg tab(s) (PEPCID) 20 mg, ORAL, ONCE, 1 dose, On Fri07/05/25 at 1230 Indications:Other iron deficiency gclifvEywal63/16/2025 12:31 PM EST20 mg ferric derisomaltose 1,000 mg in NaCl 0.9% 100 mL (MONOFERRIC) solution 1,000 mg (set by rule on 07/05/2025 12:02 PM), INTRAVENOUS, Administer over 45 Minutes, ONCE, 1 dose, On Fri07/05/25 at 1300, Monitor patient for hypersensitivity reactions during the infusion and for 30 minutes after infusion is complete. EXP: 07/05/2025 2100 RT EXP: (8 HR) Indications:Other iron deficiency anemiaNew Bag/Syringe/Pptpbt4607/05/2025 1:09 PM EST1,000 mgdocumented in this encounter Care Teams Team MemberRelationshipSpecialtyStart DateEnd Date Cruzito Eid MD [address] [place] [address] PCP - GeneralFamily Nvwnuqsr77/2/22documented as of this encounter
--- OUTSIDE RECORDS SUMMARY | 2025-07-07 13:50 | XMS_ITS | Encounter Summary ---
Author Organization [facility] Address [address] [place] [address] Care Team Providers Care Rail Operations Controller Name Role Phone Cruzito Eid MD Primary Care Provider [phone] Cruzito Eid MD Unavailable Reason for Referral * Medications - Pending ReviewSpecialtyDiagnoses / ProceduresReferred By Contact Referred To Contact Diagnoses Granuloma annulare Luna Wong MD [address] [facility] [address] [place] [address] Phone: tel: fax: Referral IDStatusReasonStart DateExpiration DateVisits RequestedVisits [id number] Reason for Visit * ReasonCommentsSkin Check Encounter Details DateTypeDepartmentCare Team (Latest Contact Info)Aqbrhvklrvq30/18/2025 1:50 PM ESTOffice Visit [facility] [address] [facility] [address] [place] [phone] Luna Wong MD [address] [facility] [address] [place] [address] Seborrheic keratosis (Primary Dx); Capillary angioma; Lentigines; Solar purpura; History of SCC (squamous cell carcinoma) of skin; Actinic keratosis; Granuloma annulare Social History Tobacco UseTypesPacks/DayYears UsedDateSmoking Tobacco: HvncqaKvvijrtdlh3170 - 1964Smokeless Tobacco: NeverAlcohol UseStandard Drinks/WeekCommentsYes0 (1 standard drink = 0.6 oz pure alcohol)1-2 drinks monthly or less, caffeine: coffee,soda 2-3 cups per [id number] Health LiteracyAnswerDate RecordedHow often do you need to have someone help you when you read instructions, pamphlets, or other written material from your doctor or pharmacy?Uxvbwf7804/25/2024Social Connection and Isolation PanelAnswerDate RecordedIn a typical week, how many times do you talk on the phone with family, friends, or neighbors?More than three times a week04/25/2024How often do you get together with friends or relatives?Twice a week04/25/2024How often do you attend rastafarian or sikh services?More than 4 times per year04/25/2024o you belong to any clubs or organizations such as rastafarian groups, unions, fraternal or athletic groups, or school groups?Yes04/25/2024How often do you attend meetings of the clubs or organizations you belong to?More than 4 times per year04/25/2024re you , , , , never , or living with a partner? 04/25/2024UDIT-CAnswerDate RecordedQ1: How often do you have a drink containing alcohol?Monthly or less04/25/2024Q2: How many drinks containing alcohol do you have on a typical day when you are drinking?1 or Q3: How often do you have six or more drinks on one occasion?Never04/25/2024Overall Financial Resource Strain (CARDIA)AnswerDate RecordedHow hard is it for you to pay for the very basics like food, housing, medical care, and heating?Not hard at all 04/25/2024HQ-2AnswerDate RecordedPatient Health Questionnaire-2 Score0 11/10/2024[facility] [place] [facility] - Occupational Stress QuestionnaireAnswerDate RecordedDo you feel stress - tense, restless, nervous, or anxious, or unable to sleep at night because yourmind is troubled all the time - these days?Not at all04/25/2024Exercise Vital SignAnswerDate RecordedOn average, how many days per week do you engage in moderate to strenuous exercise (like a brisk walk)?1 day04/25/2024On average, how many minutes do you engage in exercise at this level?10 min04/25/2024Hunger Vital SignAnswerDate Recorded Within the past 12 months, you worried that your food would run out before you got the money to buymore.Never true04/25/2024Within the past 12 months, the food you bought just didn't last and you didn't have money to get more.Never true 04/25/2024RAPARE - TransportationAnswerDate RecordedIn the past 12 months, has lack of transportation kept you from medical appointments or from getting medications?No04/25/2024In the past 12 months, has lack of transportation kept you from meetings, work, or from getting things needed for daily living?No 04/25/2024Housing Stability Vital SignAnswerDate RecordedIn the last 12 months, was there a time when you were not able to pay the mortgage or rent on time?No 04/25/2024In the past 12 months, how many times have you moved where you were living?t any time in the past 12 months, were you homeless or living in a group home (including now)?No04/25/2024Sex and Gender InformationValueDate RecordedSex Assigned at BirthNot on fileLegal MwtYdtz9110/02/2022 7:25 PM EDT Gender IdentityNot on fileSexual OrientationNot on filedocumented as of this encounter Progress Notes * Luna Wong MD - 07/07/2025 1:50 PM EST Skin Check Location: Patient requests a skin examination from the waist up, A full body skin exam was offered,patient declined Dermatologic history: history of Actinic Keratosis, history of Squamous Cell Carcinoma Last visit: 6 months ago Established patient All pertinent medical history, medications, and allergies were reviewed. General Exam: alert, oriented to person, place, and time, normal affect, well appearing uses a walker Accompaniedby spouse A complete skin exam was offered, pt [...] are symptomatic or for cosmetic reasons. 2. CAPILLARY ANGIOMA Torso - Posterior (Back) Scattered banegas-red papule(s). The patient was informed that angiomas are benign growths on the the skin. No treatment is necessary. 3. LENTIGINES Generalized Scattered paige macules in sun-exposed areas. The patient was informed that lentigines are benign pigmented lesions that occur on sun-exposed andsun-damaged skin. No treatment is necessary. Recommended regular use of broad spectrum sunscreen SPF 30 or higher 4. SOLAR PURPURA (2) Left Arm, Right Arm Scattered violaceous macules in sun exposed areas. Recommended regular sun protection. Can try OTC arnica cream if desired. 5. HISTORY OF SCC (SQUAMOUS CELL CARCINOMA) OF SKIN Left Jawline No evidence of recurrence at [...] within or around the previous surgery scar. 6. ACTINIC KERATOSIS Mid Frontal Scalp Erythematous scaly papules Patient was counseled regarding [...] limited to risks of scarring, darker or account services manager pigmentary changes, recurrence, incomplete removal and infection. Method: Liquid nitrogen was used to treat the lesion(s) with two 5-10 second freeze-thaw cycles. Number of lesions treated: 1 Post-procedure instructions: Instructions were given orally and in writing. The office will be contacted if the lesion fails to resolve despite treatment, or if a side effect develops such as abnormal crusting, scabbing, redness or tenderness - Cryotherapy, skin lesion - Mid Frontal Scalp 7. GRANULOMA ANNULARE Left Forearm - Anterior, Right Forearm - Anterior [place] indurated annular plaques. Flaring today Discussed that GA is a benign condition that often self-resolves in 1-2 years but in some patients can become a more chronic issue. Discussed the cause of this condition is unknown and treatment can be difficult. Discussed treatment options including topical steroids and ILK. Start Protopic ointment, apply to the lesions twice daily. Set aside if rash goes away. This Visit - tacrolimus (Protopic) 0.1 % ointment - Apply to affected areas, twice a day when flared, 30 day supply Next Visit: 6 months documented in this encounter Miscellaneous Notes * Addendum Note - Shahnaz Ayala MA - 07/07/2025 1:50 PM ESTAddended by: SHAHNAZ AYALA on: 07/08/2025 12:50 PM Modules accepted: Orders documented in this encounter Plan of Treatment DateTypeDepartmentCare Team (Latest Contact Info)Toxgobslxwv88/18/2026 1:00 PM EDTOffice Visit [facility] [address] [place] [phone] Luna Wong MD [address] [place] [address] documented as of this encounter Procedures Procedure NamePriorityDate/TimeAssociated DiagnosisCommentsCRYOTHERAPY SKIN FGLLTPGfpxfki76/18/2025 2:09 PM EST Actinic keratosis documented in this encounter Results * Cryotherapy, skin lesion (07/07/2025 2:09 PM EST) Narrative Authorizing ProviderResult TypeResult StatusEmluis Wong MDDERM PROCEDURE ORDERABLESFinal Result documented in this encounter Visit Diagnoses Diagnosis Seborrheic keratosis- Primary Capillary angioma Nevus, non-neoplastic Lentigines Solar purpura History of SCC (squamous cell carcinoma) of skin Personal history of other malignant neoplasm of skin Actinic keratosis Granuloma annulare Other specified erythematous condition documented in this encounter Additional Health Concerns AssessmentNoted TimePHQ-9 Depression Total Score: 10:00 AM EDT documented as of this encounter Care Teams Team MemberRelationshipSpecialtyStart DateEnd Date Cruzito Eid MD [address] [place] [phone] PCP - GeneralFamily Cyypxcvz65/1/23 Cruzito Eid MD [address] [place] [phone] PCP - ACO Reach08/27/24documented as of this encounter
[2025-07-13 10:35] VITALS: BP 144/78; PULSE 69; TEMP 36.7; O2SAT 95; BMI 25.8
--- NOTE | 2025-07-13 10:42 | XR_ITS ---
The [address] [address] Patient Name: ILA MOREJON MRN: [id number] date: 1945 Sex: M Assigned Patient Location: ED.MAIN Current Patient Location: ED.MAIN Accession/Order Number: [id number] Exam Date: 07/13/2025 10:58 Report Date: 07/13/2025 11:19 At the request of: MYRNA BEDOLLA DO Procedure: XR acute abdomen series ACUTE ABDOMEN SERIES WITH PA CHEST: CLINICAL HISTORY: diarrhea COMPARISON: Chest x-ray 12/27/2023 The chest film shows no acute cardiopulmonary findings. There is a left-sided pacemaker. Supine and upright views of the abdomen and pelvis demonstrate air within the stomach. Air is visualized within abdominal small bowel loops, a few of which on the left are top normal in diameter. There is no free air or significant air-fluid levels. No colonic air or stool is seen. There is atherosclerotic disease. No soft tissue masses are identified. There are calcifications at the left upper quadrant which could be renal, pancreatic and/or possibly splenic granulomas. Subtle levoscoliotic curvature and mild degenerative changes are present at the spine. XR/XR acute abdomen series IMPRESSION: NONSPECIFIC BOWEL GAS PATTERN, DESCRIBED Impression dictated by: Alissa Mendenhall M.D. 07/13/2025 11:19 AM Dictation Location: [facility] CENTERConferensum Electronically authenticated by: [id number] Y Date: 07/13/2025 11:19
--- OUTSIDE RECORDS SUMMARY | 2025-07-13 10:46 | XMS_ITS | Encounter Summary ---
Author Organization [facility] Address [address] [place] [address] Care Team Providers Care Teacher Preschool Name Role Phone Cruzito Eid MD Primary Care Provider [phone] Reason for Visit * ReasonCommentsMed Refill Encounter Details DateTypeDepartmentCare Team (Latest Contact Info)Rviotfkeoew29/20/2025Refill [facility] [address] [place] [address] Lisa Miranda PA-C [address] [place] [address] Status post angioplasty with stent; Atherosclerosis of [place] coronary artery of [place] heart without angina pectoris; Benign hypertensive heart disease without congestive heart failure; NSTEMI (non-ST elevated myocardial infarction) ([facility]); Primary hypertension Social History Tobacco UseTypesPacks/DayYears UsedDateSmoking Tobacco: ZdsetjXlmbtssrzi61/2024 - 07/21/1962Smokeless Tobacco: NeverAlcohol UseStandard Drinks/WeekCommentsNot Currently0 (1 standard drink = 0.6 oz pure alcohol)[facility] UtilitiesAnswerDate RecordedIn the past 12 months has the CellPly, gas, oil, or water bitFlyer threatened to shut off services in your home?No06/09/2024Humiliation, Afraid, Rape, and Kick questionnaireAnswerDate RecordedWithin the last year, have you been afraid of your partner or ex-partner?No2024Within the last year, have you been humiliated or emotionally abused in other ways by your partner or ex-partner?No2024Within the last year, have you been kicked, hit, slapped, or otherwise physically hurt by your partner or ex-partner?No2024Within the last year, have you been raped or forced to have any kind of sexual activity by your partner or ex-partner?No2024Overall Financial Resource Strain (CARDIA)AnswerDate RecordedHow hard is it for you to pay for the very basics like food, housing, medical care, and heating?Not hard at all06/09/2024HQ-2 AnswerDate RecordedPatient Health Questionnaire-2 [id number] AnswerDate RecordedIn the past 12 months, has lack of transportation kept you from medical appointments or from getting medications?No06/09/2024Lack of Transportation (Non-Medical)Not on file06/09/2024Housing Stability Vital Sign AnswerDate RecordedIn the last 12 months, was there a time when you were not able to pay the mortgage or rent on time?No06/09/2024In the past 12 months, how many times have you moved where you were living?t any time in the past 12 months, were you homeless or living in a long-term (including now)?No 06/09/2024Hunger Vital SignAnswerDate RecordedWithin the past 12 months, you worried that your food would run out before you got the money to buymore.Never true06/09/2024an Out of Food in the Last YearNot on file06/09/2024Sex and Gender InformationValueDate RecordedSex Assigned at IwdrxYcrh38/29/2025 10:33 AM EDTLegal CgiBsmv6103/16/2024 10:53 AM EDTGender IdulqssoJscb64/29/2025 10:33 AM EDTSexual OrientationHeterosexual or Djpsrfge39/29/2025 10:33 AM EDTdocumented as of this encounter Plan of Treatment Not on file documented as of this encounter Visit Diagnoses Diagnosis Status post angioplasty with stent Postsurgical percutaneous transluminal coronary angioplasty status Atherosclerosis of [place] coronary artery of [place] heart without angina pectoris Benign hypertensive heart disease without congestive heart failure Benign hypertensive heart disease without heart failure NSTEMI (non-ST elevated myocardial infarction) ([facility]) Acute myocardial infarction, subendocardial infarction, episode of care unspecified Primary hypertension Unspecified essential hypertension documented in this encounter Care Teams Team MemberRelationshipSpecialtyStart DateEnd Date Cruzito Eid MD [address] [place] [address] PCP - GeneralFamily Medicine04/12/24documented as of this encounter
--- OUTSIDE RECORDS SUMMARY | 2025-07-13 10:46 | XMS_ITS | Encounter Summary ---
Author Organization [facility] Address [address] [place] [address] Care Team Providers Care Rn Tele Name Role Phone Cruzito Edi MD Primary Care Provider [phone] Source Comments In the event this information is protected by the Federal Confidentiality of Alcohol and Drug AbusePatient Records regulations: The Federal rules restrict any use of the information to criminally investigate or prosecute any alcohol or drug abuse patient.[facility] Encounter Details DateTypeDepartmentCare Team (Latest Contact Info)Qofbfkepwzy74/16/2025Travel Social History Tobacco UseTypesPacks/DayYears UsedDateSmoking Tobacco: FormerCigarettesPassive Smoke Exposure: PastSmokeless Tobacco: NeverAlcohol UseStandard Drinks/Week CommentsNot Asked0 (1 standard drink = 0.6 oz pure alcohol)PHQ-2AnswerDate RecordedPHQ-2 [id number] Deprivation IndexAnswerDate RecordedNational Score (1-100), lower number is lower kxbu773612/27/2022State Score (1-10), lower number is lower [id number] from: https://www.neighborhoodatlas.medicine.[facility].edu/. Last address used for y[address]is[address] [facility]12/27/2022Sex and Gender InformationValueDate Recorded Sex Assigned at BirthNot on fileLegal TmhCqtu97/28/2022 2:29 PM ESTGender IdentityNot on fileSexual OrientationNot on filedocumented as of this encounter Plan of Treatment DateTypeDepartmentCare Team (Latest Contact Info)Werqucumbtu53/08/2026 11:15 AM EDTOffice Visit [facility] [address] [place] [address] [place] [address] 6 month lab10/31/2025 11:00 AM EDTVisit (SP) Office Hematology/Oncology [address] [place] [address] Angelina Manuel APRN.LOG LOADER [address] [place] [address] 6 month labdocumented as of this encounter Visit Diagnoses Not on filedocumented in this encounter Care Teams Team MemberRelationshipSpecialtyStart DateEnd Date Cruzito Eid MD [address] [place] [address] PCP - GeneralFamily Jhpwvkhf40/2/22documented as of this encounter
--- OUTSIDE RECORDS SUMMARY | 2025-07-13 10:46 | XMS_ITS ---
Author Organization [facility] Address [address] [place], [place] [address] Care Team Providers Care Yard Hand Name Role Phone Cruzito Eid MD Primary Care Provider [phone] Active Problems ProblemNoted DateDiagnosed DateIron deficiency anemia, uwkjvasjzim64/03/2025 Stage 3 chronic kidney sqnmfsj3701/04/2023Type 2 diabetes mellitus with diabetic peripheral angiopathy without /17/2023LL (chronic lymphocytic leukemia)06/27/2022Large granular uimnelbyokmhr19/08/2022 Current Treatment and Therapy Plans No current plan information found. Other Current Plans AMB FERRIC DERISOMALTOSE ONCE* Plan Start Date:07/05/2025 Plan Provider:Angelina Manuel APRN.CYANIDE CASE HARDENER Linked Problems Other iron deficiency anemia Treatment Medications* * ferric derisomaltose iv piggyback in NaCl 0.9% 100 mL (MONOFERRIC) Past Treatment and Therapy Plans
--- OUTSIDE RECORDS SUMMARY | 2025-07-13 10:46 | XMS_ITS | Clinical Summary ---
Author Organization [facility] Address [address] [place], [place] [id number] Care Team Providers Care Spa Therapist Name Role Phone Cruzito Eid MD Primary Care Provider [phone] Allergies No known active allergies Medications MedicationSigDispense QuantityRefillsLast FilledStart DateEnd DateStatus cholecalciferol, vitamin D3, 10 mcg (400 unit) cap Take 2,000 Units by mouth once daily.Active insulin glargine (LANTUS) 100 unit/mL injection Inject subcutaneously as directed.Active Zinc 50 mg tab Take 50 mg by mouth once daily.Active carvedilol (COREG) 6.25 mg tablet Take 3.125 mg by mouth two times a day with meals.Active clopidogrel (PLAVIX) 75 mg tablet Take 75 mg by mouth once daily.Active amLODIPine (NORVASC) 5 mg tablet Take 10 mg by mouth every morning.06/14/2022ctive rosuvastatin (CRESTOR) 20 mg tablet Take 20 mg by mouth every evening.07/05/2023ctive gabapentin (NEURONTIN) 100 mg capsule TAKE 1 CAPSULE BY MOUTH AT BEDTIME FOR 1 DAY, THEN TAKE 1 CAPSULE TWICE DAILY FOR 1 DAY, AND THEN TAKE 1 CAPSULE THREE TIMES DAILY06/09/2023ctive aspirin 81 mg chewable tablet Take 81 mg by mouth.04/09/2023ctive bumetanide (BUMEX) 1 mg tablet Take 1 mg by mouth.04/30/2024ctive therapeutic multivitamin-minerals (THERA-M PLUS) 9 mg iron-400 mcg tablet Take 1 tablet by mouth every morning.Active pantoprazole DR (PROTONIX) 40 mg tablet Take 40 mg by mouth once daily.06/19/2024ctive primidone (MYSOLINE) 50 mg tablet Take 50 mg by mouth daily at bedtime.Active metFORMIN (GLUCOPHAGE) 500 mg tablet Take 500 mg by mouth daily with breakfast.Active resveratroL 250 mg cap Take 2 capsules by mouth once daily.Active Magnesium 250 mg tab Take 1 tablet by mouth every morning.Active glipiZIDE (GLUCOTROL) 10 mg tablet Take 10 mg by mouth once daily.Active QUEtiapine (SEROQUEL) 25 mg tablet Take 25 mg by mouth daily at bedtime.05/01/2025tive ubidecarenone (CO Q-10 PO) Take by mouth.Active losartan (COZAAR) 100 mg tablet Take 100 mg by mouth once daily.5Active semaglutide (RYBELSUS) 3 mg tablet Take 3 mg by mouth daily before breakfast.5Active pravastatin (PRAVACHOL) 20 mg tablet Take 20 mg by mouth once daily.07/05/2025Discontinued(Discontinued by another Health Care Provider) losartan (COZAAR) 50 mg tablet Take 50 mg by mouth once daily.Discontinued potassium gluconate 595 mg (99 mg) TbER Take 595 mg by mouth.07/05/2025Discontinued(Discontinued by another Health Care Provider) Active Problems ProblemNoted DateDiagnosed DateIron deficiency anemia, ptzcofruhyv03/03/2025 Stage 3 chronic kidney hdefjsg1201/04/2023Type 2 diabetes mellitus with diabetic peripheral angiopathy without yvdsxmbp69/17/2023LL (chronic lymphocytic leukemia)06/27/2022Large granular ojxyujwydaxmc07/08/2022 Encounters DateTypeDepartmentCare UqdlPzwhbevoiby83/16/2025 12:15 PM ESTInfusion Center Hematology/Oncology [address] [place] [address] [place] [address] Other iron deficiency anemia (Primary Dx)07/05/2025 11:00 AM ESTVisit () Office Hematology/Oncology [address] [place] [address] [place] [address] Angelina Manuel 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.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 Other iron deficiency anemia (Primary Dx); Anemia, unspecified type; CLL (chronic lymphocytic leukemia) (HCC); Malaise and fatigue; Stage 3 chronic kidney disease, unspecified whether stage 3a or 3b CKD (HCC); Dizziness and uzwieygjl07/16/5547Yjqqwm75/08/8788Fvdazz10/13/2025 11:00 AM EDT Visit (SP) Office Hematology/Oncology [address] [place] [address] [place] [address] Angelina Manuel APRN.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 Anemia, unspecified type (Primary Dx); CLL (chronic lymphocytic leukemia) (HCC); Other iron deficiency anemia; Malaise and fatigue; Stage 3 chronic kidney disease, unspecified whether stage 3a or 3b CKD (HCC); Leukocytosis, unspecified type05/02/2025Telephone [facility] [address] [place] [address] Angelina Manuel APRN.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 Fdicmij5305/02/20257586Qrtneb88/10/2025Telephone Hematology/Oncology [address] [place] [address] [place] [address] Faraz Henley MD Lab Ddorhk9304/25/20257798Ahcddk17/30/2025Telephone [facility] [address] [place] [address] [place] [address] Angelina Manuel APRN.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 Lab Ordersfrom Last 3 Months Immunizations ImmunizationAdministration DatesNext Dueinfluenza (HD-IIV3) vaccine, age 65+ yr, high dose, trivalent, PF (FLUZONE HIGH-DOSE)03/30/2020,04/01/2019,05/13/2018 influenza (HD-IIV4) vaccine, age 65+ yr, high dose, quadrivalent, PF (FLUZONE HIGH-DOSE)04/02/2022influenza (IIV4) vaccine, age 6 mo - 64 yr, quadrivalent (AFLURIA, FLULAVAL, FLUZONE)05/28/2017influenza (aIIV3) vaccine, age 65+ yr, trivalent, PF (FLUAD)05/12/2024influenza (aIIV4) vaccine, age 65+ yr, quadrivalent, PF (FLUAD QUAD)08/02/2023neumococcal conjugate (PCV13) vaccine, 13 valent (PREVNAR 13)06/24/2018 Family History Medical HistoryRelationCommentsCancerFatherDiabetesFatherDiabetesMotherRelation StatusCommentsFatherMother Social History Tobacco UseTypesPacks/DayYears UsedDateSmoking Tobacco: FormerCigarettesPassive Smoke Exposure: PastSmokeless Tobacco: Never Tobacco Cessation:Counseling Given: No Alcohol UseStandard Drinks/WeekCommentsNot Asked0 (1 standard drink = 0.6 oz pure alcohol)PHQ-2AnswerDate RecordedPHQ-2 phasy094rea Deprivation IndexAnswerDate RecordedNational Score (1-100), lower number is lower risk87 12/27/2022State Score (1-10), lower number is lower bvuj20512/27/2022ata from: https://www.neighborhoodatlas.medicine.[facility].edu/. Last address used for tcpnwrighql[address] [facility]12/27/2022Sex and Gender InformationValueDate Recorded Sex Assigned at BirthNot on fileLegal HisMysp47/28/2022 2:29 PM ESTGender IdentityNot on fileSexual OrientationNot on file Last Filed Vital Signs Vital SignReadingTime TakenCommentsBlood Haaqbjfk452/7807/05/2025 2:39 PM EST Cwnmm672207/05/2025 2:39 PM RRZKkaymmzvrpu06.3 ??C (97.4 ??F)07/05/2025 11:29 AM ESTRespiratory Qpql167309/05/2024 11:29 AM ESTOxygen Xzvvsbhngs20%07/05/2025 2:39 PM ESTInhaled Oxygen Concentration--Pypnjq06.6 kg (168 lb 12.8 oz)07/05/2025 11:29 AM CWSKgwkyt835.5 cm (5' 7.52 )07/09/2024 1:41 PM ESTBody Mass Index26.03 07/09/2024 1:41 PM EST Plan of Treatment DateTypeDepartmentCare Team (Latest Contact Info)Oylqciiolhh87/08/2026 11:15 AM EDTOffice Visit [facility] [address] [place] [address] [place] [address] 6 month lab10/31/2025 11:00 AM EDTVisit (SP) Office Hematology/Oncology [address] [place] [place] [address] Angelina Manuel APRN.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 [address] [address] 6 month labHealth MaintenanceDue DateLast DoneCommentsDiabetic Foot Exam 1957Dilated Retinal Exam7Annual PCP Team Chronic Disease Visit 1965Anxiety Ddmiscayu33/31/1965Depression Ehrqpwemf25/31/1965Hepatitis C Oaeiqnyhu09/31/1965LDL Zknlkwcmjpu26/31/1965DTaP,Tdap,Td Vaccine (1 - Tdap) 1966Shingrix Vaccine (1 of 2)1997Medicare Annual Wellness Visit 06/20/2012Pneumococcal Vaccine: 50+ (2 of 2 - PPSV23, PCV20, or PCV21)08/19/2018 06/24/2018RSV Vaccine (1 - 1-dose 75+ series)07/20/20220175DsF9Z73/09/202307/23/2023, 04/08/2023, 04/05/2023, Additional history existsAdvance Directive Cefqixdvbu05/01/2025Covid-19 Vaccine ( season)/, 05/17/2021, 08/16/2020, Additional history existsUrine Albumin:Creatinine Ratio Hemoglobin/Ymnxwpwwsz46/08/202612/02/2025, 05/02/2025, 04/25/2025, Additional history existsSerum Erduwkfasw69/08/202612/02/2025, 05/02/2025, 04/25/2025, Additional history existsColonoscopyDiscontinued 12/26/2022, 09/21/2012Colorectal Cancer ScreeningDiscontinuedInfluenza Vaccine Djjymwxfe68/18/2025, 05/12/2024, 08/02/2023, Additional history existsCT ColonographyDiscontinuedCologuard (FIT-DNA)DiscontinuedFecal Occult Blood DiscontinuedSigmoidoscopyDiscontinued Procedures Procedure NamePriorityDate/TimeAssociated DiagnosisCommentsFERRITIN BLDRoutine 06/27/2025 9:24 AM EST Anemia, unspecified type CLL (chronic lymphocytic leukemia) (HCC) Other iron deficiency anemia IRON + CAHFQfpisks10/08/2025 9:24 AM EST Anemia, unspecified type CLL (chronic lymphocytic leukemia) (HCC) Other iron deficiency anemia CBC + BPZGCukofre29/08/2025 9:24 AM EST Anemia, unspecified type CLL (chronic lymphocytic leukemia) (HCC) Other iron deficiency anemia COMPREHENSIVE METABOLIC GBMRJCfnpgva39/08/2025 9:24 AM EST Anemia, unspecified type CLL (chronic lymphocytic leukemia) (HCC) Other iron deficiency anemia FERRITIN PZIZmdrcff61/13/2025 11:04 AM EDT Anemia, unspecified type Stage 3 chronic kidney disease, unspecified whether stage 3a or 3b CKD (HCC) IRON + DKLXUddivkl27/13/2025 11:04 AM EDT Anemia, unspecified type Stage 3 chronic kidney disease, unspecified whether stage 3a or 3b CKD (HCC) COMPREHENSIVE METABOLIC ZMZZMBoqoqhh49/13/2025 11:04 AM EDT Anemia, unspecified type Stage 3 chronic kidney disease, unspecified whether stage 3a or 3b CKD (HCC) CBC + BLWXUlmtbji65/13/2025 11:04 AM EDT Anemia, unspecified type Stage 3 chronic kidney disease, unspecified whether stage 3a or 3b CKD (HCC) STAFF TNNSEAKyeepkl88/06/2025 10:43 AM EDT CLL (chronic lymphocytic leukemia) (HCC) Stage 3 chronic kidney disease, unspecified whether stage 3a or 3b CKD (HCC) Type 2 diabetes mellitus 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, unspecified whether group home insulin use (HCC) Other iron deficiency anemia COMPREHENSIVE METABOLIC QVMESPernopz89/06/2025 10:43 AM EDT CLL (chronic lymphocytic leukemia) (HCC) Stage 3 chronic kidney disease, unspecified whether stage 3a or 3b CKD (HCC) Type 2 diabetes mellitus 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, unspecified whether group home insulin use (HCC) Other iron deficiency anemia CBC + TEPIVhxatbe81/06/2025 10:43 AM EDT CLL (chronic lymphocytic leukemia) (HCC) Stage 3 chronic kidney disease, unspecified whether stage 3a or 3b CKD (HCC) Type 2 diabetes mellitus 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, unspecified whether intermodal dispatcher insulin use (HCC) Other iron deficiency anemia from Last 3 Months Results * (ABNORMAL) IRON AND TIBC (06/27/2025 9:24 AM EST) Only the most recent of2 resultswithin the time period is included. ComponentValueRef RangeTest MethodAnalysis TimePerformed AtPathologist Signature Iron29(L)41 - 186 ug/dL06/27/2025 5:28 PM [facility] YNBNMFX699868 - 386 ug/dL06/27/2025 5:28 PM [facility] LABTransferrin Saturation 7.8(L)15.0 - 57.0 %06/27/2025 5:28 PM [facility] LABSpecimen (Source)Anatomical Location / LateralityCollection Method / VolumeCollection TimeReceived TimeBloodBLOOD SPECIMEN / UnknownVenipuncture / Bztbllm4606/27/2025 9:24 AM EST06/27/2025 9:24 AM EST Narrative Authorizing ProviderResult TypeResult StatusJaimee Mar MATAMOROS.CNPLABORATORYFinal ResultPerforming OrganizationAddressCity/State/ZIP CodePhone Number [facility] [address] * FERRITIN (06/27/2025 9:24 AM EST) Only the most recent of2 resultswithin the time period is included. ComponentValueRef RangeTest MethodAnalysis TimePerformed AtPathologist Signature Tfhyggyr52.030.3 - 565.7 ng/mL06/27/2025 5:41 PM [facility] LAB Specimen (Source)Anatomical Location / LateralityCollection Method / Volume Collection TimeReceived TimeBloodBLOOD SPECIMEN / UnknownVenipuncture / Unknown 06/27/2025 9:24 AM EST06/27/2025 9:24 AM EST Narrative Authorizing ProviderResult TypeResult StatusAngelina Manuel APRN.CNPLABORATORYFinal ResultPerforming OrganizationAddressCity/State/ZIP CodePhone Number [facility] [address] [place] [address], * (ABNORMAL) COMPREHENSIVE METABOLIC PANEL (06/27/2025 9:24 AM EST) Only the most recent of3 resultswithin the time period is included. ComponentValueRef RangeTest MethodAnalysis TimePerformed AtPathologist Signature Protein, Total6.2(L)6.3 - 8.0 g/dL06/27/2025 11:38 [address] [facility] LABAlbumin4.03.9 - 4.9 g/dL06/27/2025 11:38 AM [facility] LABCalcium, Total9.28.5 - 10.2 mg/dL06/27/2025 11:38 AM [facility] LABBilirubin, Total0.30.2 - 1.3 mg/dL 06/27/2025 11:38 AM [facility] LABAlkaline Phosphatase 7838 - 113 U/L108/28/2024 11:38 AM [facility] ZHUETS89 (L)14 - 40 U/L108/28/2024 11:38 AM [facility] BHRKQQ54 10 - 54 U/L108/28/2024 11:38 AM [facility] KKMMoygzab59 (L)74 - 99 mg/dL06/27/2025 11:38 AM [facility] Comment: The [place] [employer] (ADA) provides guidance for cutoff values for fasting glucose andrandom glucose. The ADA defines fasting as no [...] Standards of Medical Care in Diabetes 2016, [place] [employer]. Diabetes Care. 2016.39(Suppl 1). BUN29(H)9 - 24 mg/dL06/27/2025 11:38 AM [facility] Creatinine2.05(H)0.73 - 1.22 mg/dL06/27/2025 11:38 AM [facility] EEITsyqln933715 - 144 mmol/L108/28/2024 11:38 AM [facility] LABPotassium4.73.7 - 5.1 mmol/L108/28/2024 11:38 AM EST [facility] ZGWTvpkuweg19966 - 107 mmol/L108/28/2024 11:38 AM [facility] TENXA18052 - 30 mmol/L108/28/2024 11:38 AM [facility] LABAnion Gap98 - 15 mmol/L108/28/2024 11:38 AM [facility] LABEstimated Glomerular Filtration Rate33(L)>=60 mL/min/1.73m 06/27/2025 11:38 AM [facility] LABComment:Estimated Glomerular Filtration Rate (eGFR) is calculated using the 2020 CKD-EPI creatinine equation. This equation utilizes serum creatinine, sex, and age as parameters. The creatinine assay has traceable calibration to isotope dilution- mass spectrometry. Refer to KDIGO guidelines for clinical interpretation. In patients with unstable renal function, e.g. those with acute kidney injury, the eGFRmay not accurately reflect actual GFR.Specimen (Source)Anatomical Location / LateralityCollection Method / VolumeCollection TimeReceived TimeBloodBLOOD SPECIMEN / UnknownVenipuncture / Msvxtll9506/27/2025 9:24 AM EST06/27/2025 9:24 AM EST Narrative Authorizing ProviderResult TypeResult StatusAngelina Manuel APRN.CNPLABORATORYFinal ResultPerforming OrganizationAddressCity/State/ZIP CodePhone Number [facility] [address] [place] [address] * (ABNORMAL) COMPLETE BLOOD COUNT AND DIFFERENTIAL (06/27/2025 9:24 AM EST) Only the most recent of3 resultswithin the time period is included. ComponentValueRef RangeTest MethodAnalysis TimePerformed AtPathologist Signature WBC19.37(H)3.70 - 11.00 k/uL06/27/2025 4:15 PM [facility] LABRBC3.26(L)4.20 - 6.00 m/uL06/27/2025 4:15 PM [facility] LABHemoglobin9.5(L)13.0 - 17.0 g/dL06/27/2025 4:15 PM EST [facility] BNAWvpoeyfruy26.4(L)39.0 - 51.0 %06/27/2025 4:15 PM [facility] AHOKGM10.180.0 - 100.0 fL06/27/2025 4:15 PM [facility] FJPNJV84.126.0 - 34.0 pg06/27/2025 4:15 [address] [facility] DVBQEIU41.530.5 - 36.0 g/dL 06/27/2025 4:15 PM [facility] LABRDW-CV13.211.5 - 15.0 %06/27/2025 4:15 PM [facility] LABPlatelet Swfcr974051 - 400 k/uL06/27/2025 4:15 PM [facility] LABMPV9.79.0 - 12.7 fL06/27/2025 4:15 PM [facility] LABNRBC0.0/100 WBC06/27/2025 4:15 PM [facility] MA[facility] LABAbsolute nRBC<0.01<0.01 k/uL 06/27/2025 4:15 PM [facility] LABNeutrophils %18.0%06/27/2025 4:15 PM [facility] LABAbs Neut (Segs + Bands)3.491.45 - 7.50 k/uL 06/27/2025 4:15 PM [facility] LABLymphocytes %72.0%06/27/2025 4:15 PM [facility] LABAbs Lymph (Normal + Reactive)13.95(H)1.00 - 4.00 k/uL06/27/2025 4:15 PM [facility] LABMonocytes %8.0%06/27/2025 4:15 PM [facility] LABAbs Mono1.55(H)<0.87 k/uL06/27/2025 4:15 PM [facility] LABEosin%2.0%06/27/2025 4:15 PM [facility] LABAbs Eosin0.39<0.46 k/uL06/27/2025 4:15 PM [facility] LAB Basophils %0.0%06/27/2025 4:15 PM [facility] LABAbs Baso0.00<0.11 k/uL06/27/2025 4:15 PM [facility] LABPlatelet EstimateAdequate 06/27/2025 4:15 PM [facility] LABRed Cell MorphReviewed: see results of individual bcbbletpkdwy11/08/2025 4:15 PM [facility] ORKNltcnqjwwsQqi37/08/2025 4:15 PM [facility] LABRBC FragmentsFew (A)None Seen06/27/2025 4:15 PM [facility] LABDiff TypeManual 06/27/2025 4:15 PM [facility] LABSpecimen (Source)Anatomical Location / LateralityCollection Method / VolumeCollection TimeReceived TimeBlood BLOOD SPECIMEN / UnknownVenipuncture / Zgfleuy8506/27/2025 9:24 AM EST06/27/2025 9:24 AM [facility] MAIN LAB - 06/27/2025 4:15 PM EST This is an appended report. These results have been appended to a previously verified report. Authorizing ProviderResult TypeResult StatusnAgelina Manuel APRN.CNPLABORATORYFinal ResultPerforming OrganizationAddressCity/State/ZIP CodePhone Number [facility] [address] [place] [address], [facility] [address] [place] [id number] * STAFF REVIEW (04/25/2025 10:43 AM EDT)ComponentValueRef RangeTest Method Analysis TimePerformed AtPathologist SignatureReMD Agueda04/27/2025 3:23 PM EDTCSELECT [facility] LABSpecimen (Source)Anatomical Location / LateralityCollection Method / VolumeCollection TimeReceived TimeBloodBLOOD SPECIMEN / UnknownVenipuncture / Jgjjnzv3004/25/2025 10:43 AM EDT1 10:43 AM EDT Narrative Authorizing ProviderResult TypeResult StatusOdalys Thorpe APRN.CNPLABORATORY Final ResultPerforming OrganizationAddressCity/State/ZIP CodePhone Number [facility] [address] [facility] [address] [place] [phone], from Last 3 Months Insurance Care Teams Team MemberRelationshipSpecialtyStart DateEnd Date Cruzito Eid MD [address] [place] [address] [facility] - [facility] Zhnnopmo68/2/22
--- OUTSIDE RECORDS SUMMARY | 2025-07-13 10:46 | XMS_ITS | Clinical Summary ---
Author Organization [facility] Healthcare Address [address] [place] [address] Care Team Providers Care Barker Operator Name Role Phone Cruzito Eid MD Primary Care Provider [phone] Cruzito Eid MD Unavailable Allergies Active AllergyReactionsCriticalityNoted EpvlNjjisgywXvrkgskopmWfuyv16/23/2024 Medications MedicationSigDispense QuantityRefillsLast FilledStart DateEnd DateStatus cholecalciferol (Vitamin D-3) 25 MCG (1000 UT) tablet Take 2,000 Units by mouth in the morning.Active coenzyme Q-10 100 MG capsule Take 100 mg by mouth in the morning.Active Continuous Blood Gluc Party Plan Dealer (FreeStyle Silvino 2 [place]) device Indications:Type 2 diabetes mellitus with hyperglycemia, with long-term current use of insulin ([facility])1 each Daily 1 each 10/24/2023ctive insulin syringe-needle U-100 (BD Insulin Syringe U/F) 31G X 5/16 1 mL [facility] Indications:Type 2 diabetes mellitus with hyperglycemia, with long-term current use of insulin ([facility])Use as instructed 100 each ctive Continuous Glucose Sensor (FreeStyle Silvino 3 Sensor) [facility] Indications:Type 2 diabetes mellitus with hyperglycemia, with long-term current use of insulin ([facility])1 each every 14 (fourteen) days 2 each ctive aspirin 81 MG EC tablet Take 81 mg by mouth Daily ECActive rosuvastatin (Crestor) 40 MG tablet Indications:Mixed hyperlipidemiaTake 1 tablet (40 mg) by mouth Daily 30 tablet ctive clopidogrel (Plavix) 75 MG tablet Take 75 mg by mouth Daily04/13/2024ctive qilpdxftwtlr-hbgz-ijcmazlt-folic acid (Theragran-M) tablet Take 1 tablet by mouth DailyActive Potassium Gluconate 595 MG capsule Take 595 mg by mouth DailyActive carvedilol (Coreg) 3.125 MG tablet Take 3.125 mg by mouth in the morning and 3.125 mg in the evening. Take with meals.4Active MAGNESIUM PO Take 1 tablet by mouth in the morning.Active pantoprazole (ProtoNix) 40 MG EC tablet TAKE 1 TABLET BY MOUTH TWICE DAILY DO NOT CRUSH CHEW OR SPLITActive Resveratrol 250 MG capsule Take 2 capsules by mouth DailyActive metFORMIN XR (Glucophage-XR) 500 MG 24 hr tablet Indications:Type 2 diabetes mellitus with hyperglycemia, with long-term current use of insulin ([facility])Take 1 tablet (500 mg) by mouth in the evening. Take with meals 90 tablet 5Active insulin glargine (Lantus) 100 UNIT/ML injection Indications:Type 2 diabetes mellitus with hyperglycemia, with long-term current use of insulin ([facility])Inject 52 Units under the skin in the morning. 50 mL 5Active gabapentin (Neurontin) 300 MG capsule Indications:Essential tremorTake 1 capsule (300 mg) by mouth in the morning and 1 capsule (300 mg) in the evening and 1 capsule(300 mg) before bedtime. 270 capsule 5Active glipiZIDE (Glucotrol) 10 MG tablet Indications:Type 2 diabetes mellitus with hyperglycemia, with long-term current use of insulin ([facility])Take 1 tablet by mouth once daily 30 tablet 5Active primidone (Mysoline) 50 MG tablet Indications:Benign essential tremorTake 1 tablet (50 mg) by mouth at bedtime 30 tablet 5Active bumetanide (Bumex) 1 MG tablet Indications:Chronic heart failure with preserved ejection fraction (HFpEF) ([facility]) Take 1 tablet (1 mg) by mouth in the morning and 1 tablet (1 mg) before bedtime. 60 tablet 5Active amLODIPine (Norvasc) 10 MG tablet Indications:Benign essential HTNTake 1 tablet by mouth once daily 30 tablet 505Active QUEtiapine (SEROquel) 25 MG tablet Take 25 mg by mouth at bedtimeActive semaglutide (Rybelsus) 3 MG tablet Take 3 mg by mouth in the morning. Take before meals.5Active tamsulosin (Flomax) 0.4 MG 24 hr capsule TAKE 1 CAPSULE BY MOUTH ONCE DAILY AT LIEIBWL99/14/2025Active losartan (Cozaar) 100 MG tablet TAKE 1 TABLET BY MOUTH ONCE DAILY GSSMMJLN72/24/2025Active tacrolimus (Protopic) 0.1 % ointment Indications:Granuloma annulareApply 0.5 gms to affected areas on the arms, twice a day when flared, 30 day supply 30 g 5Active losartan (Cozaar) 50 MG tablet Take 50 mg by mouth in the morning.07/07/2025Discontinued tacrolimus (Protopic) 0.1 % ointment Indications:Granuloma annulareApply to affected areas, twice a day when flared, 30 day supply 30 g Discontinued Active Problems ProblemNoted DateDiagnosed DateMedicare annual wellness visit, subsequent 11/10/2024 Assessment & Plan (11/10/2024 11:23 AM EDT): Due for labs. Discussed proper diet and regular aerobic exercise. Need aerobic exercise 5-6 days a week for 30 minutes at a time. Smaller portions and limit total calories. Tetanus every 10 years. Advised not to smoke. Paroxysmal atrial epydojyvooyd52/05/2024 Assessment & Plan (11/10/2024 11:22 AM EDT): In NSR and continue medication. Assessment & Plan (06/24/2024 10:56 AM EST): In NSR and continue medication. Recent GI bleed and Eliquis on hold. Gastrointestinal hemorrhage associated with acute khzcyiczb37/05/2024 Assessment & Plan (06/24/2024 10:55 AM EST): Bleed related to Eliquis and stopped. Continue protonix. Lszsphlhvq90/05/2024 Assessment & Plan (06/24/2024 10:55 AM EST): Continue protonix. Unsteady gait06/24/2024hronic heart failure with preserved ejection fraction (HFpEF)05/12/2024 Assessment & Plan (11/10/2024 11:22 AM EDT): Edema stable and continue medication. Elevate legs PRN. Assessment & Plan (06/24/2024 10:55 AM EST): Worsening edema and increase bumex. Elevate legs PRN. Assessment & Plan (05/12/2024 10:36 AM EDT): Edema stable and continue medication. Follow with cardiology. DDD (degenerative disc disease), kqztph2502/26/2024 Assessment & Plan (06/28/2024 12:37 PM EST): Pain stable and continue medication. Start home health for therapy. Assessment & Plan (02/26/2024 4:26 PM EDT): Increased pain and radicular symptoms. Check x-ray and may need MRI. Lumbar uugiehqkruizv43/08/2024hange in voice02/26/2024 Assessment & Plan (02/26/2024 4:26 PM EDT): Voice changing and prior smoker. Refer to ENT for evaluation and direct visualization. Weakness of both legs12/18/2023 Assessment & Plan (12/18/2023 1:55 PM EDT): Episode of weakness after leaning and in 1 position for 2 hours but resolved and no problems since.Likely lumbar DDD and irritated nerve. Doing well since and no further symptoms. Able to return to work without restrictions. Vitamin D dupdblatgd10/05/2024Encounter for long-term (current) use of ejpiadjmpqr40/05/0512Jzmoxj08/05/2024 Assessment & Plan (05/12/2024 10:34 AM EDT): Resume primidone. Assessment & Plan (10/24/2023 9:41 AM EDT): Tremor stable and continue neurontin. Once off brillinta can resume primidone. Arteriosclerosis of coronary ryddkj7907/01/2023 Assessment & Plan (05/12/2024 10:34 AM EDT): No pain and follow with cardiology. Assessment & Plan (10/24/2023 9:40 AM EDT): No pain and follow with cardiology. Benign essential HTN07/01/2023 Assessment & Plan (05/12/2024 10:34 AM EDT): BP controlled and monitor PRN. Assessment & Plan (10/24/2023 9:40 AM EDT): BP controlled and monitor PRN. Assessment & Plan (07/22/2023 2:28 PM EST): BP controlled and monitor PRN. Vhskcbrrxnujqh44/12/2023Normal pressure ypnlscvignzjf27/12/2023Obstructive sleep apnea07/01/2023Overweight (BMI 25.0-29.9)07/01/2023KD stage 3b, GFR 30-44 ml/min01/04/2023 Assessment & Plan (11/10/2024 11:22 AM EDT): Referred to nephrology. Type 2 diabetes mellitus with hyperglycemia, with long-term current use of oolnpwd7701/04/2023 Assessment & Plan (05/12/2024 10:34 AM EDT): [...] to ADA diet and limit carbs. Asymptomatic ssynudpyxkt87/25/2023 Assessment & Plan (06/24/2024 10:55 AM EST): Recent pacemaker placed and follow with cardiology. CLL (chronic lymphocytic leukemia)06/27/2022 Assessment & Plan (11/10/2024 11:22 AM EDT): Follow with oncology Assessment & Plan (01/09/2024 12:21 PM EDT): Follow with oncology Bilateral carotid artery ctphaump69/02/2020 Assessment & Plan (10/24/2023 9:41 AM EDT): No symptoms and monitor. PAD (peripheral artery disease)10/21/2019 Assessment & Plan (11/10/2024 11:22 AM EDT): Follow with vascular. Assessment & Plan (05/12/2024 10:37 AM EDT): Follow with vascular. Assessment & Plan (02/26/2024 4:26 PM EDT): Refer to new vascular. Resolved Problems ProblemNoted DateDiagnosed DateResolved NsxgVfdejlbpoe97 Cdymbwpng63 Assessment & Plan (01/09/2024 12:19 PM EDT): Recent pneumonia but improved. Monitor and use albuterol PRN. Edema of both legs Assessment & Plan (07/22/2023 2:28 PM EST): Edema stable with lasix and use PRN. Elevate legs PRN. Essential hljmao67/11/2023 Assessment & Plan (07/22/2023 2:28 PM EST): Tremor worse and increase neurontin. URI, acute/11/2023 Assessment & Plan (07/22/2023 2:29 PM EST): Continued symptoms and treat with levaquin. Use OTC PRN. Assessment & Plan (07/01/2023 4:39 PM EST): Will add atb Sympotms for 2 weeks, NAD Fluids, rest, fu if not better Abnormal result of cardiovascular function study, kxudornyiol65/12/2023 07/22/20233063Lvyegexqavto72/12/202304/11/2023 Assessment & Plan (07/01/2023 4:45 PM EST): Is elevated, pt reports cardiology still working on this Asymptomatic Continue follow with them NSTEMI (non-ST elevated myocardial infarction) Encounters DateTypeDepartmentCare XrvlLkamgrcbkzz95/18/2025 1:50 PM ESTOffice Visit [facility] [address] [place] [phone] Luna Wong MD Seborrheic keratosis (Primary Dx); Capillary angioma; Lentigines; Solar purpura; History of SCC (squamous cell carcinoma) of skin; Actinic keratosis; Granuloma enfjjyey34/18/2025amboo flowsheet [facility] [address] [place] [phone] Luna Wong MD 07/07/2025Travelfrom Last 3 Months Family History Medical HistoryRelationNameCommentsCancerFatherPaul willisDiabetesFatherPaul willisDiabetesMotherMary WillisMelanomaNeg HxRelationNameStatusCommentsFather Milad willisMotherMary Rojas Social History Tobacco UseTypesPacks/DayYears UsedDateSmoking Tobacco: WitodqVkcpmmttjl6619 - 1962Smokeless Tobacco: Never Tobacco Cessation:Counseling Given: Not Answered Alcohol UseStandard Drinks/WeekCommentsYes0 (1 standard drink = 0.6 oz pure alcohol)1-2 drinks monthly or less, caffeine: coffee,soda 2-3 cups per maqZ4141 Health LiteracyAnswerDate RecordedHow often do you need to have someone help you when you read instructions, pamphlets, or other written material from your doctor or pharmacy?Piqhyz4904/25/2024Social Connection and Isolation PanelAnswer Date RecordedIn a typical week, how many times do you talk on the phone with family, friends, or neighbors?More than three times a week04/25/2024How often do you get together with friends or relatives?Twice a week04/25/2024How often do you attend druze or orthodox services?More than 4 times per year04/25/2024o you belong to any clubs or organizations such as druze groups, unions, [employer] or athletic groups, or school groups?Yes04/25/2024How often do you attend meetings of the clubs or organizations you belong to?More than 4 times per year04/25/2024re you , , , , never , or living with a partner?Dwlujsy6404/25/2024UDIT-CAnswerDate RecordedQ1: How often do you have a [...] housing, medical care, and heating?Not hard at all04/25/2024HQ-2AnswerDate Recorded Patient Health Questionnaire-2 Fkbbx697[facility] [place] of Occupational Health - Occupational Stress QuestionnaireAnswerDate [...] exercise at this level?10 min04/25/2024Hunger Vital SignAnswerDate RecordedWithin the past 12 months, you worried that your food would run out before you got the money to buymore.Never true04/25/2024 Within the past 12 months, the food you bought just didn't last and you didn't have money to get more.Never true04/25/2024RAPARE - TransportationAnswerDate RecordedIn the past 12 months, has lack of transportation kept you from medical appointments or from getting medications?No04/25/2024In the past 12 months, has lack of transportation kept you from meetings, work, or from getting things needed for daily living?No04/25/2024Housing Stability Vital SignAnswerDate RecordedIn the last 12 months, was there a time when you were not able to pay the mortgage or rent on time?No04/25/2024In the past 12 months, how many times have you moved where you were living?t any time in the past 12 months, were you homeless or living in a group home (including now)?No04/25/2024Sex and Gender InformationValueDate RecordedSex Assigned at BirthNot on fileLegal CpkLwdb2010/02/2022 7:25 PM EDTGender IdentityNot on fileSexual OrientationNot on file Last Filed Vital Signs Vital SignReadingTime TakenCommentsBlood Mzctvjmk578/7204 10:16 AM EDT Gbjxj5337 10:16 AM ENTXyfutzuqkww69.3 ??C (97.3 ??F)11/10/2024 10:44 AM EDTRespiratory Xnvq195311/10/2024 10:44 AM EDTOxygen Divmuzlzvz40%11/16/2024 10:16 AM EDTInhaled Oxygen Concentration--Wxuobe26 kg (172 lb)11/16/2024 10:16 AM EDT Symmok650.7 cm (5' 8 )11/16/2024 10:16 AM EDTBody Mass Index26.15011/16/2024 10:16 AM EDT Plan of Treatment DateTypeDepartmentCare Team (Latest Contact Info)Fzjjtrsisdj63/18/2026 1:00 PM EDTOffice Visit [facility] [address] [place] [address] Luna Wong MD [address] [place] [address] Health MaintenanceDue DateLast DoneCommentsPneumococcal Vaccine: 65+ Years (3 of 3 - PCV20 or PCV21), 02/02/2011Diabetes: Hemoglobin A1C 406/, 07/23/2023, 10/12/2020, Additional history existsDiabetes: Urine Protein Almmfpetx05/, 03/30/2020Diabetes: Retinopathy Mlfwjrxmj86/01/207222/07/2023, 09/13/2020, 08/12/2019, Additional history exists AmozxapvuroTedsbajpibpz04/08/2023, 12/26/2022, 11/12/2022, Additional history existsColorectal Cancer ScreeningDiscontinuedInfluenza VaccineCompleted 06/07/2025, 05/12/2024, 08/02/2023, Additional history existsCT Colonography DiscontinuedFIT-DNADiscontinuedFITDiscontinuedFOBTDiscontinuedSigmoidoscopy Discontinued Medical Devices ImplantedTypeAreaManufacturerDevice IdentifierShelf Expiration DateModel / Serial / LotStentx4-Right Coronary ArteryStentRight: Coronary Procedures Procedure NamePriorityDate/TimeAssociated DiagnosisCommentsCRYOTHERAPY SKIN XBNLIVTwlsiwd61/18/2025 2:09 PM EST Actinic keratosis HEMOGLOBIN N8RXhkbxdl85/03/2024 2:06 PM EST COLOR FUNDUS PHOTOGRAPHY - OU - BOTH WFTTUwhaxnj29/24/2021 12:00 PM EST MICROALBUMIN (W/O CREAT)Vgkwuuw8103/30/2020 UIARJIYTSSWJcjoefe75/04/2013 12:00 PM EST from Last 3 Months or Most Recently Relevant to Health Maintenance Results * Cryotherapy, skin lesion (07/07/2025 2:09 PM EST) Narrative Authorizing ProviderResult TypeResult StatusEmily Yuriy Wong MDDBANNER MD [facility] PROCEDURE ORDERABLESFinal Result * (ABNORMAL) Hemoglobin A1c (07/23/2023 2:06 PM EST)ComponentValueRef RangeTest MethodAnalysis TimePerformed AtPathologist SignatureHEMOGLOBIN A1C6.9(H)4.4 - 5.6 %PROMEDICAComment: NOTE ? ADA Guidelines ? Result ?HgbA1c ?Normal : ? less than 5.7 % ?Prediabetes : ?5.7 % ??to 6.4 % Diabetes : > 6.4 % Use with caution in patients with abnormal hemoglobin variants as the half-life of red blood cells and in vivo glycation rates are affected. AVERAGE QTSVMDF087bp/dLPROMEDICASpecimen (Source)Anatomical Location / LateralityCollection Method / VolumeCollection TimeReceived Time07/23/2023 2:06 PM EST07/23/2023 2:07 PM EST Narrative Authorizing ProviderResult TypeResult StatusCruzito Eid MDSOUTHWEST [facility] BLOOD ORDERABLES Edited Result - FinalPerforming OrganizationAddressCity/State/ZIP CodePhone Number [place] * Color Fundus Photography - OU - Both Eyes (09/13/2020 12:00 PM EST)Anatomical RegionLateralityModalityHeadFundus PhotographySpecimen (Source)Anatomical Location / LateralityCollection Method / VolumeCollection TimeReceived Time 09/13/2020 12:00 PM EST Narrative 09/13/2020 12:00 PM EST PERFORMED AT [facility] LOCATION:[id number] Procedure Note CONVERSION, GENERIC - 12/04/2022 PERFORMED AT [facility] LOCATION:[id number] Authorizing ProviderResult TypeResult StatusGabbie Joyce MDOPHTH PHOTOGRAPHY Final Result * MICROALBUMIN (W/O CREAT) (03/30/2020)ComponentValueRef RangeTest Method Analysis TimePerformed AtPathologist KmzphiixmRAZK51.3[facility] Comment:mALB reference range not established.Specimen (Source)Anatomical Location / LateralityCollection Method / VolumeCollection TimeReceived Time 03/30/2020 Narrative Authorizing ProviderResult TypeResult StatusChristy Yuriy Oleary NPECW LABS Final ResultPerforming OrganizationAddressCity/State/ZIP CodePhone Number [facility] * Colonoscopy (09/21/2012 12:00 PM EST)Anatomical RegionLateralityModality EndoscopySpecimen (Source)Anatomical Location / LateralityCollection Method / VolumeCollection TimeReceived Time09/21/2012 12:00 PM EST Narrative 09/21/2012 12:00 PM EST PERFORMED AT [facility] LOCATION:[id number] Polyps, inflammation Procedure Note CONVERSION, GENERIC - 12/05/2022 PERFORMED AT [facility] LOCATION:[id number] Polyps, inflammation Authorizing ProviderResult TypeResult StatusRay Olivo MDENDOSCOPY PROCEDURE ORDERABLESFinal Result from Last 3 Months or Most Recently Relevant to Health Maintenance Insurance Care Teams Team MemberRelationshipSpecialtyStart DateEnd Date Cruzito Eid MD [address] [place] [phone] [facility] - [facility] Cruzito Eid MD [address] [place] [phone] PCP - [facility]08/27/24
--- OUTSIDE RECORDS SUMMARY | 2025-07-13 10:46 | XMS_ITS | Encounter Summary ---
Author Organization [facility] Address [address] [place] [address] Care Team Providers Care Organ Teacher Name Role Phone Cruzito Eid MD Primary Care Provider [phone] Cruzito Eid MD Unavailable Encounter Details DateTypeDepartmentCare Team (Latest Contact Info)Qacdekqjqqp98/18/2025Travel Social History Tobacco UseTypesPacks/DayYears UsedDateSmoking Tobacco: PekuwcLqyvfvyajf4694 - 1962Smokeless Tobacco: NeverAlcohol UseStandard Drinks/WeekCommentsYes0 (1 standard drink = 0.6 oz pure alcohol)1-2 drinks monthly or less, caffeine: coffee,soda 2-3 cups per rhpU7729 Health LiteracyAnswerDate RecordedHow often do you need to have someone help you when you read instructions, pamphlets, or other written material from your doctor or pharmacy?Wafldw8004/25/2024Social Connection and Isolation PanelAnswerDate RecordedIn a typical week, how many times do you talk on the phone with family, friends, or neighbors?More than three times a week04/25/2024How often do you get together with friends or relatives?Twice a week04/25/2024How often do you attend orthodoxy or yazidism services?More than 4 times per year4Do you belong to any clubs or organizations such as orthodoxy groups, unions, fraternal or athletic groups, or school groups?Yes04/25/2024How often do you attend meetings of the clubs or organizations you belong to?More than 4 times per year4Are you , , , , never , [...] at all 04/25/2024HQ-2AnswerDate RecordedPatient Health Questionnaire-2 Score0 11/10/2024[facility] [place] of Occupational Health - Occupational Stress QuestionnaireAnswerDate [...] were you homeless or living in a fdc (including now)?No04/25/2024Sex and Gender InformationValueDate RecordedSex Assigned at BirthNot on fileLegal LiyAenc6610/02/2022 7:25 PM EDT Gender IdentityNot on fileSexual OrientationNot on filedocumented as of this encounter Plan of Treatment DateTypeDepartmentCare Team (Latest Contact Info)Rfgbocjujtg31/18/2026 1:00 PM EDTOffice Visit [facility] [address] [place] [address] Luna Wong MD [address] [place] [address] documented as of this encounter Visit Diagnoses Not on filedocumented in this encounter Additional Health Concerns AssessmentNoted TimePHQ-9 Depression Total Score: 10:00 AM EDT documented as of this encounter Care Teams Team MemberRelationshipSpecialtyStart DateEnd Date Cruzito Eid MD [address] [place] [phone] PCP - GeneralFamily Yoqmdeot27/1/23 Cruzito Eid MD [address] [place] [phone] PCP - ACO [facility]08/27/24documented as of this encounter
--- OUTSIDE RECORDS SUMMARY | 2025-07-13 10:46 | XMS_ITS | Patient Health Record ---
Author Organization [facility] [place] Address [address] [place] [address] Care Team Providers Care Production Posting Clerk Name Role Phone Cruzito Eid MD Primary Care Provider Maik cormier Rhea James Marlene [phone] Allergies No Known Allergies Reason For Referral No Information Medications Medication SIG (Take, Route, Frequency, Duration) Notes Start Date End Date Status Super [place] 3 ActiveResveratrol 250 MGas directed OrallyActiveVitamin CActiveRosuvastatin Calcium 40 MG1 tablet Orally Once a dayActivemetFORMIN HCl 500 MG1 tablet with a meal Orally Once a day; Duration: 30 day(s)ActiveLisinopril 20 MG1 tablet Orally ActiveLantus 100 unit/mL0 vial Subcutaneous 1X ActiveCPAP Supplies --Mask and TubingSize mask, headgear, tubings, heated humidifier, filters and water chamber. Lifetime need.08/29/2023ctiveCPAP Supplies --Mask and Tubing - Daily; Duration: 365 daysSize mask, headgear, tubings, heated humdifier, filters and water chamber. Lifetime need. ActiveCPAP -use as directed - QHS; Duration: 365 daysActiveCo Q 10ActiveCalcium ActiveBrilintaNot-TakingamLODIPine Besylate 10 MG1 tablet Orally Once a day; Duration: 30 daysActiveAspirin 81 MG1 tablet Orally Once a dayActiveBumetanide 1 MG1 tablet Orally Once a dayActiveCentrum Silver Ultra MensActivePantoprazole Sodium 40 MG1 tablet 1/2 to 1 hour before morning meal Orally Once a dayActive Pravastatin SodiumNot-TakingGabapentin 300 MG1 capsule Orally Three a dayActive Plavix 75 mg1 tablet QD ActiveLosartan Potassium 50 MG1 tablet Orally Once a dayActiveMagnesium 250 MG2 tablet with a meal Orally Once a dayActive Potassium Gluconate 595 (99 K) MG1 tablet Orally Once a dayActiveglipiZIDE 10 MG 1 tablet 30 minutes before breakfast Orally Once a day; Duration: 30 day(s) ActivePrimidone 50 MG1 tablet Orally Once a dayActiveCarvedilol 3.125 MG1 tablet with food Orally Twice a day; Duration: 30 daysActiveZincActiveVitamin I9Huxpra CPAP -mask, headgear, chinstrap, heated tubing, heated humidifier, filters, all supplies needed PRN; Duration: 365 days5Active Immunizations Vaccine Route Administration Date Status Comme nts Flu, Unspecified Unknown 08/05/2018 Administered Problems Problem Type SNOMED Code ICD Code Onset Dates Problem Status W/U Status Risk Notes Problem Insufficient sleep s yndrome (740372881) Insufficient sleep syndrome (F51.12) ActiveconfirmedProblemPeriodic limb movement disorder (785989032)Periodic limb movement disorder (G47.61)ActiveconfirmedProblemPrimary central sleep apnea (6074801740061)CSA (central sleep apnea) (G47.31)ActiveconfirmedProblem Obstructive sleep apnea syndrome (93305185)Severe obstructive sleep apnea (G47.33)ActiveconfirmedProblemIdiopathic sleep related non-obstructive alveolar hypoventilation (775517495)Hypoxia, sleep related (G47.34)ActiveconfirmedProblem Central sleep apnea syndrome (57243480)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) ActiveconfirmedProblemObstructive sleep apnea syndrome (87163318)Obstructive sleep apnea syndrome, severe (G47.33)ActiveconfirmedProblemAbnormal REM sleep (87635111)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)Activeconfirmed Vital Signs Heart Rate 71 /min 08/30/2024 Jiigomme99 %08/30/2024lood pressure ahxmrclvq76 mm Hg08/30/20242549Pqhrtt40 in 08/30/2024lood pressure aheomguj743 mm Hg08/30/20246316Ydyinr563 lbs08/30/2024MI 24.93 kg/m208/30/2024 Procedures Procedure Date Ordered Date Performed Result Body Sit e Bipap Re Titration 08/30/2024 N/A Encounters Encounter Location Date Provider Diagnosis [facility] [place] [address] [place] [address] 08/30/2024 James Rhea CSA (central sleep apnea) G47.31 ; Severe obstructive sleep apnea G47.33 ; Periodic limb movement disorder G47.61 and Abnormal REM sleep G47.52 [facility] [place] [address] [place] [address] 09/07/2024 James Hendrickstaglia Assessments Encounter Date Diagnosis (ICD Code) Assessment Notes Treatment Notes Treatment Clinical Notes Section Notes 08/30/2024 CSA (central sleep apnea) (ICD-1 0 - G47.31) Continue on auto SV with a maximum EPAP of 11, a minimum EPAP of 7. A maximum PS of 10, a minimum PS of 0. The EPR set at 3. Rate set at auto Patient will contact [facility] scheduling at [phone] 08/30/2024Severe obstructive sleep apnea (ICD-10 - G47.33) Continue on BiPAP auto SV with a minimum EPAP of 7 centimeters, a maximum EPAP of 11 centimeters, aminimum PS of 0 maximum PS of 10. He'll be issued a prescription for new CPAP supplies for 1 year. It will be faxed to his DME, [facility] in [place]. . Sleep apnea material was printed 08/30/2024Periodic limb movement disorder (ICD-10 - G47.61)Patient does not need treatment of his PLMD08/30/2024bnormal REM sleep (ICD-10 - G47.52)The movements in sleep not severe enough to place the patient on clonazepam. He'll continue on melatonin 10 milligrams at bedtime Plan Of Treatment Pending Test Test Name Order Date Bipap Re Titration 08/30/2024 Insurance Providers Payer Name Payer Address Payer Phone Subscriber Number Group Number Insured Name Patient Relationship to Insured Coverage Start Date Coverage End Date [place] [address] [place] [address] [id number] Uri Rojasf - patient is the [id number] 2012[facility] [address] [place] [phone], Thomas Self - patient is the [id number] 2021 Medical (General) History Medical History History ICD Code Central sleep apnea syndrome G47.31 Obstructive sleep apnea syndrome G47.33 Surgical History Surgery Date(Month/Year) leg blockage x's 2020 [facility] - StentsHospitalization History Reason Date(Month/Year) above
--- OUTSIDE RECORDS SUMMARY | 2025-07-13 10:46 | XMS_ITS | Clinical Summary ---
Author Organization [facility] Address [address] [place] [address] Care Team Providers Care Undertaker Assistant Name Role Phone Cruzito Eid MD Primary Care Provider [phone] Allergies Active AllergyReactionsCriticalityNoted LtjzPdcwvvfnDsyfusqgfqTovib05/23/2024 Medications MedicationSigDispense QuantityRefillsLast FilledStart DateEnd DateStatus insulin glargine (Lantus) 100 unit/mL injection vial Inject 52 Units under the skin in the morning.01/02/2021ctive metFORMIN (Glucophage) 500 mg tablet Take 500 mg by mouth with breakfast.01/02/2021ctive gabapentin (Neurontin) 300 mg capsule Take 300 mg by mouth three times daily.07/22/2023ctive amLODIPine (Norvasc) 10 mg tablet Take 1 tablet by mouth in the morning.03/30/2024ctive cholecalciferol (Vitamin D-3) 25 MCG (1000 units) tablet Take 2,000 Units by mouth in the morning.Active potassium gluconate 595 mg (99 mg) tablet extended release Take 595 mg by mouth in the morning.Active bumetanide (Bumex) 1 mg tablet Indications:Benign hypertensive heart disease without congestive heart failure Take 1 tablet (1 mg) by mouth in the morning. 90 tablet ctive primidone (Mysoline) 50 mg tablet Take 50 mg by mouth in the morning.Active mv-min/folic/K1/lycopen/lutein (CENTRUM SILVER ULTRA MEN'S ORAL) Take 1 tablet by mouth in the morning.Active magnesium 250 mg tablet Take 1 tablet by mouth in the morning.Active coenzyme Q-10 100 mg capsule Take 100 mg by mouth in the morning.Active aspirin 81 mg EC tablet Indications:Status post angioplasty with stent,Atherosclerosis of [place] coronary artery of [place] heart without angina pectoris,Benign hypertensive heart disease without congestive heart failureTake 1 tablet (81 mg) by mouth in the morning. Change from chewables to safety coated 81mg daily 90 tablet 5Active rosuvastatin (Crestor) 40 mg tablet Indications:Status post angioplasty with stent,Atherosclerosis of [place] coronary artery of [place] heart without angina pectoris,Benign hypertensive heart disease without congestive heart failureTake 1 tablet (40 mg) by mouth in the evening. 90 tablet 5Active pantoprazole (ProtoNix) 40 mg EC tablet Indications:Status post angioplasty with stent,Atherosclerosis of [place] coronary artery of [place] heart without angina pectoris,Benign hypertensive heart disease without congestive heart failure,Gastrointestinal hemorrhage associated with duodenitisTake 1 tablet (40 mg) by mouth two times daily. Do not crush, chew, or split. 60 tablet 5Active clopidogrel (Plavix) 75 mg tablet Indications:Status post angioplasty with stent,Atherosclerosis of [place] coronary artery of [place] heart without angina pectoris,Benign hypertensive heart disease without congestive heart failureTake 1 tablet (75 mg) by mouth in the morning. 90 tablet /[id number] carvedilol (Coreg) 3.125 mg tablet Indications:Benign hypertensive heart disease without congestive heart failure, Status post angioplasty with stent,NSTEMI (non-ST elevated myocardial infarction) (CMS/HCC),Atherosclerosis of [place] coronary artery of [place] heart without angina pectoris,Gastrointestinal hemorrhage associated with duodenitis, Acute on chronic heart failure with preserved ejection fraction (CMS/HCC), Primary hypertensionTake 1 tablet (3.125 mg) by mouth two times daily. 60 tablet //6Active losartan (Cozaar) 100 mg tablet Indications:Status post angioplasty with stent,Atherosclerosis of [place] coronary artery of [place] heart without angina pectoris,Benign hypertensive heart disease without congestive heart failure,NSTEMI (non-ST elevated myocardial infarction) (CMS/HCC),Primary hypertensionTake 1 tablet (100 mg) by mouth in the morning. as directed 90 tablet 6Active losartan (Cozaar) 100 mg tablet Indications:Status post angioplasty with stent,Atherosclerosis of [place] coronary artery of [place] heart without angina pectoris,Benign hypertensive heart disease without congestive heart failure,NSTEMI (non-ST elevated myocardial infarction) (CMS/HCC),Primary hypertensionTake 1 tablet (100 mg) by mouth once daily as directed. 90 tablet Discontinued Active Problems ProblemNoted DateDiagnosed DateAbnormal REM sleep01/04/2025Idiopathic sleep related nonobstructive alveolar qmqiampriyybehu71/17/2025Insufficient sleep ghjslcwi57/17/2025Primary central sleep apnea01/04/2025Medicare annual wellness visit, lsylwkuour50/23/2025Iron deficiency anemia, yqkupeihkfu01/03/2025 Jtcxezeiak30/05/2024Gastrointestinal hemorrhage associated with acute gastritis 06/24/2024Unsteady gait06/24/2024alance gearffah04/24/2024GI bleed06/09/2024 Sinus node hcuyejwifek92/20/2024iminished pulses in lower qgfyisvpo52/22/2024 Former xzmiry5705/11/2024Left leg pain05/11/2024Trochanteric bursitis of both hips 05/11/20243710Caoyxqziueh66/22/2024cute on chronic heart failure with preserved ejection aiywjprb74/07/2024cute respiratory failure with hypoxia and lwhmbqszerq54/07/2024New onset atrial kpqprjqljwsu41/07/2024bnormal result of cardiovascular function study, tifnazjrpig84/19/0206Cnhocrbewovc82/19/2024hange in voice02/26/2024 Overview (04/08/2024): Last Assessment & Plan: Voice changing and prior smoker. Refer to ENT for evaluation and direct visualization. DDD (degenerative disc disease), qinjlb1402/26/2024 Overview (04/08/2024): Last Assessment & Plan: Increased pain and radicular symptoms. Check x-ray and may need MRI. Wemqqxzsem60/08/2024Lumbar iphidxehepnjb99/08/2024Weakness of both legs 12/18/2023 Overview (04/08/2024): Last Assessment & Plan: Episode of weakness after leaning and in 1 position for 2 hours but resolved and no problems since.Likely lumbar DDD and irritated nerve. Doing well since and no further symptoms. Able to return to work without restrictions. Benign essential cnfwgw0110/24/2023 Overview (04/08/2024): Last Assessment & Plan: Tremor stable and continue neurontin. Once off brillinta can resume primidone. Encounter for long-term (current) use of jlzdanzmjsi94/05/2024Vitamin D mhggzwydza55/05/2024Edema of both legs07/22/2023 Overview (04/08/2024): Last Assessment & Plan: Edema stable with lasix and use PRN. Elevate legs PRN. Atherosclerotic heart disease of [place] coronary artery without angina pectoris 07/01/2023 Overview (04/08/2024): Last Assessment & Plan: No pain and follow with cardiology. Benign essential HTN07/01/2023 Overview (04/08/2024): Last Assessment & Plan: BP controlled and monitor PRN. Omsogmjcjdbfxn89/12/2023Normal pressure aygooqszdvedj45/12/2023Obstructive sleep apnea07/01/2023Overweight (BMI 25.0-29.9)07/01/2023NSTEMI (non-ST elevated myocardial infarction)04/05/2023KD stage 3b, GFR 30-44 ml/min01/04/2023Type 2 diabetes mellitus with diabetic peripheral angiopathy without bqgqevkl84/17/2023 Type 2 diabetes mellitus with hyperglycemia, with long-term current use of diaomdj7701/04/2023 Overview (04/08/2024): Last Assessment & Plan: BS elevated with steroids but improved. Monitor. Asymptomatic /25/2023LL (chronic lymphocytic leukemia)06/27/2022 Overview (04/08/2024): Last Assessment & Plan: Follow with oncology Large granular lmmdzfyfbdrwf89/08/2022ilateral carotid artery stenosis 10/21/2019 Overview (04/08/2024): Last Assessment & Plan: No symptoms and monitor. Feetdcfupulh79/02/2020PAD (peripheral artery disease)10/21/2019 Overview (04/08/2024): Last Assessment & Plan: Refer to new vascular. Status post angioplasty with stent08/09/2019 Overview (04/08/2024): Drug-eluting stent to the Obtuse marginal branch and RCA in 2016 Encounters DateTypeDepartmentCare MmxyHnoxifelrtp64/20/2025[facility] [address] [place] [phone] Lisa Miranda PA-C Status post angioplasty with stent; Atherosclerosis of [place] coronary artery of [place] heart without angina pectoris; Benign hypertensive heart disease without congestive heart failure; NSTEMI (non-ST elevated myocardial infarction) ([facility]); Primary cehwlpjrplto97/26/2025 12:20 PM ESTAncillary Procedure [facility] [address] [place] [phone] Adjustment and management of cardiac /25/2025Orders Only [facility] [address] [place] [phone] Milad Arriaga MD 06/09[facility] [address] [place] [address] Symone Núñez MA Benign hypertensive heart disease without congestive heart failure; Status post angioplasty with stent; NSTEMI (non-ST elevated myocardial infarction) (CMS/HCC); Atherosclerosis of [place] coronary artery of [place] heart without angina pectoris; Gastrointestinal hemorrhage associated with duodenitis; Acute on chronic heart failure with preserved ejection fraction (CMS/HCC); Primary xhptfoptscln82/20/2025[facility] [address] [place] [address] Symone Núñez MA 05/13/2025[facility] [address] [place] [address] Symone Núñez MA from Last 3 Months Family History RelationNameStatusCommentsFatherDeceasedMotherDeceased Social History Tobacco UseTypesPacks/DayYears UsedDateSmoking Tobacco: LiqxbcXifwhyvlrz82/2024 - 07/21/1964Smokeless Tobacco: Never Tobacco Cessation:Counseling Given: Not Answered Alcohol UseStandard Drinks/WeekCommentsNot Currently0 (1 standard drink = 0.6 oz pure alcohol)[facility] UtilitiesAnswerDate RecordedIn the past 12 months has the [employer], gas, oil, or water mojio threatened to shut off services in your home?No06/09/2024Humiliation, Afraid, Rape, and Kick questionnaireAnswerDate RecordedWithin the last year, have you been afraid of your partner or ex-partner?No2024Within the last year, have you been humiliated or emotionally abused in other ways by your partner or ex-partner?No2024 Within the last year, have you been kicked, hit, slapped, or otherwise physically hurt by your partner or ex-partner?No2024Within the last year, have you been raped or forced to have any kind of sexual activity by your part ner or ex-partner?2024Overall Financial Resource Strain (CARDIA)Answer Date RecordedHow hard is it for you to pay for the very basics like food, housing, medical care, and heating?Not hard at all06/09/2024HQ-2AnswerDate RecordedPatient Health Questionnaire-2 Pewjx492TransportationAnswerDate RecordedIn the past 12 months, has lack of transportation kept you from medical appointments or from getting medications?No06/09/2024Lack of Transportation (Non-Medical)Not on file06/09/2024Housing Stability Vital SignAnswerDate RecordedIn the last 12 months, was there a time when you were not able to pay the mortgage or rent on time?No06/09/2024In the past 12 months, how many times have you moved where you were living?t any time in the past 12 months, were you homeless or living in a fpc (including now)?No06/09/2024 Hunger Vital SignAnswerDate RecordedWithin the past 12 months, you worried that your food would run out before you got the money to buymore.Never true06/09/2024 Ran Out of Food in the Last YearNot on file06/09/2024Sex and Gender Information ValueDate RecordedSex Assigned at KooalHsir30/29/2025 10:33 AM EDTLegal SexMale 03/16/2024 10:53 AM EDTGender GlxqxtvkLagv95/29/2025 10:33 AM EDTSexual OrientationHeterosexual or Vuriujam71/29/2025 10:33 AM EDT Last Filed Vital Signs Vital SignReadingTime TakenCommentsBlood Bdyyzwxi096/6106 1:51 PM EDT Umgds033301/04/2025 1:51 PM BHSDybpfitcwzu58.6 ??C (97.9 ??F)06/13/2024 12:00 PM ESTRespiratory Hlar411906/13/2024 1:51 PM ESTOxygen Wqavjepcqh85%01/04/2025 1:51 PM EDTInhaled Oxygen Concentration--Zphmvp19 kg (172 lb)01/04/2025 1:51 PM EDT Axzuhv915.7 cm (5' 8 )01/04/2025 1:51 PM EDTBody Mass Index26.1506 1:51 PM EDT Plan of Treatment Health MaintenanceDue DateLast DoneCommentsMedicare Annual Wellness (AWV) 1947Diabetes: Retinopathy Mtxbmzzzt62/31/1957Diabetes: Urine Protein Zsujzoeij70/31/1966Zoster Vaccines (1 of 2)1966Adult Eaepxxr1607/20/1969 Pneumococcal Vaccine: 50+ Years (2 of 2 - PPSV23, PCV20, or PCV21)08/19/2018 06/24/2018Diabetes: Hemoglobin A1C04//427149/4COVID-19 Vaccine ( season), 08/02/2023, 04/02/2022, Additional history existsDepression Zfpduiewn52Fall Risk Qpxhjztdr89/31/2025 2024Influenza FojsddsNhdenkzpi15/18/2025, 05/12/2024, 08/02/2023, Additional history existsHIB VaccinesAged OutNo longer eligible based on patient's age to complete this topicHPV VaccinesAged OutNo longer eligible based on patient's age to complete this topicIPV VaccinesAged OutNo longer eligible based on patient's age to complete this topicMeningococcal B VaccineAged OutNo longer eligible based on patient's age to complete this topicMeningococcal VaccineAged OutNo longer eligible based on patient's age to complete this topic Rotavirus VaccinesAged OutNo longer eligible based on patient's age to complete this topic Medical Devices ImplantedTypeAreaManufacturerDevice IdentifierShelf Expiration DateModel / Serial / SdSharron S 53, - [id number] - [id number] Implanted:Qty: 1 on 06/11/2024 by [facility]ano Martell [id number] / [id number] / JustinSharron S 45 - [id number] - [id number] Implanted:Qty: 1 on 06/11/2024 by Adriano Martell MD [id number] / [id number] / Pacemaker,Arden Trista Hanna - [id number] - [id number] Implanted:Qty: 1 on 06/11/2024 by Adriano Martell MD [facility] South[id number] / [id number] / Procedures Procedure NamePriorityDate/TimeAssociated DiagnosisCommentsCARDIAC DEVICE CHECK CHECK - DDJSZZKblrexp03/26/2025 1:06 PM EST Adjustment and management of cardiac pacemaker CARDIAC DEVICE CHECK - REMOTE - GYMJGWDLCDmqzwhf13/25/2025 12:00 AM ESTfrom Last 3 Months Results * CARDIAC DEVICE CHECK - REMOTE - PACEMAKER (06/15/2025 1:06 PM EST)Specimen (Source)Anatomical Location / LateralityCollection Method / VolumeCollection TimeReceived Time Narrative Authorizing ProviderResult TypeResult StatusPaul Bart MDCV IMPLANTABLE CARDIAC DEVICE PROCEDURESFinal ResultPerforming OrganizationAddressCity/State/ZIP Code Phone Number CPACS * Cardiac device check - Remote pacemaker (06/14/2025 12:00 AM EST)Anatomical RegionLateralityModalityOtherSpecimen (Source)Anatomical Location / Laterality Collection Method / VolumeCollection TimeReceived Time06/14/2025 Narrative Authorizing ProviderResult TypeResult StatusPaul Bart MDCV IMPLANTABLE CARDIAC DEVICE PROCEDURESFinal Result from Last 3 Months Insurance Advance Directives * Full Code (Latest Code Status on File) Date ActivatedDate IfcixnqljazUhjpjsie93/20/2024 6:49 PM06/13/2024 4:50 PM Care Teams Team MemberRelationshipSpecialtyStart DateEnd Date Cruzito Eid MD [address] [place] [phone] PCP - GeneralFamily Medicine04/12/24
--- OUTSIDE RECORDS SUMMARY | 2025-07-13 10:46 | XMS_ITS | Clinical Summary ---
Author Organization [employer] tem Address [id number] [address] [place] [address] Care Team Providers Care Coat Cutter Name Role Phone Cruzito Eid MD Primary Care Provider [phone] Allergies No known active allergies Medications MedicationSigDispense QuantityRefillsLast FilledStart DateEnd DateStatus metFORMIN XR (GLUCOPHAGE-XR) 500 mg 24 hr tablet Take 1 tablet (500 mg total) by mouth in the morning.08/04/2018Active insulin glargine,hum.rec.anlog (INSULIN GLARGINE SUBQ) Inject 54 Units under the skin daily. Lantus Active coenzyme Q10 100 mg capsule Take 1 capsule (100 mg total) by mouth in the morning.Active cholecalciferol 1,000 units tablet Take 2 tablets (2,000 Units total) by mouth in the morning.Active gabapentin (NEURONTIN) 300 mg capsule Take 1 capsule (300 mg total) by mouth 3 (three) times a day.07/22/2023ctive gdgqwjzc-qrfe-TD-calcium &mins (THERAGRAN-M) 9 mg iron-400 mcg tablet Take 1 tablet by mouth in the morning.Active potassium gluconate 595 mg (99 mg) tablet extended release Take 1 tablet (595 mg total) by mouth in the morning.Active amLODIPine (NORVASC) 10 mg tablet take 1 tablet by mouth in the morning 90 tablet ctive aspirin 81 mg Take 1 tablet (81 mg total) by mouth in the morning.Active clopidogreL (PLAVIX) 75 mg tablet Take 1 tablet (75 mg total) by mouth in the morning.Active apixaban (ELIQUIS) 5 mg tablet Take 1 tablet (5 mg total) by mouth in the morning and 1 tablet (5 mg total) before bedtime. 60 tablet 04/29/2024ctive Additional Information Patient not taking.Reported on 09/06/2024 rosuvastatin (CRESTOR) 20 mg tablet Take 1 tablet (20 mg total) by mouth nightly. 30 tablet 04/29/2024ctive bumetanide (BUMEX) 1 mg tablet Take 1 tablet (1 mg total) by mouth daily. 30 tablet 04/30/2024ctive losartan (COZAAR) 50 mg tablet Take 1 tablet (50 mg total) by mouth in the morning. 30 tablet 04/30/2024ctive Active Problems ProblemNoted DateDiagnosed DateCKD stage 3b, GFR 30-44 ml/min04/28/2024cute respiratory failure with hypoxia and bqtqsmwfmqe59/07/2024New onset atrial oeezkiaqahdi61/07/2024cute on chronic heart failure with preserved ejection jiyxqlxr47/07/2024NSTEMI (non-ST elevated myocardial infarction)04/05/2023 Asymptomatic yhwjlhmahph78/25/2023LL (chronic lymphocytic leukemia)06/27/2022 Overview (04/26/2024): Last Assessment & Plan: Follow with oncology Last Assessment & Plan: Follow with oncology Mixed qgmgksshacesxl00/02/2021PAD (peripheral artery disease)10/21/2019 Wenpqxjydmbf86/02/2020Bilateral carotid artery tdmabwxs69/02/2020Status post angioplasty with stent08/09/2019 Overview (08/09/2019): Drug-eluting stent to the Obtuse marginal branch and RCA in 2016 Coronary artery disease involving [place] coronary artery of [place] heart without angina pectorisAbnormal result of cardiovascular function study, unspecified HypertensionType 2 diabetes mellitus 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 Immunizations ImmunizationAdministration DatesNext DueInfluenza High Dose Preservative Free IM 03/30/2020,04/01/2019,05/13/2018Influenza Vaccine, Quadrivalent, Adjuvanted 08/02/2023Influenza, High-dose, Oqykflenclfz15/13/2022Influenza, Injectable, Iirpzscvwwvo59/08/2017Pneumococcal Conjugate 13-Rbbaox3806/24/2018 Family History Medical HistoryRelationNameCommentsBrain cancerDaughterDiabetesFatherLung cancer FatherDiabetesMotherRelationNameStatusCommentsDaughterAliveFatherDeceasedMother Social History Tobacco UseTypesPacks/DayYears UsedDateSmoking Tobacco: Every DayCigarettes0.5 56.4Started: 1965; Last attempted to quit: 2019Smokeless Tobacco: Never Tobacco Cessation:Ready to Q uit: Not Asked; Counseling Given: Not Answered Comments:4-5 cigarettes per day or at least 1 pack a week Alcohol UseStandard Drinks/WeekCommentsNot Currently0 (1 standard drink = 0.6 oz pure alcohol)1 drink a year at leastAHC UtilitiesAnswerDate RecordedIn the past 12 months has the [employer], gas, oil, or water company threatened to shut off services in your home?No04/27/2024UDIT-CAnswerDate RecordedQ1: How often do you have a drink containing alcohol?Never04/27/2024Q2: How many drinks containing alcohol do you have on a typical day when you are drinking?Patient does not drink04/27/2024Q3: How often do you have six or more drinks on one occasion? Never04/27/2024Overall Financial Resource Strain (CARDIA)AnswerDate RecordedHow hard is it for you to pay for the very basics like food, housing, medical care, and heating?Not hard at all04/05/2023HQ-2AnswerDate RecordedTotal Score0 04/27/2024RAPARE - TransportationAnswerDate RecordedIn the past 12 months, has lack of transportation kept you from medical appointments or from getting medications?No04/27/2024In the past 12 months, has lack of transportation kept you from meetings, work, or from getting things needed for daily living?No 04/27/2024Housing InstabilityAnswerDate RecordedAre you worried or concerned that in the next two months you may not have stable housing that you own, rent or stay in as a part of a household?No04/27/2024hildcareAnswerDate Recorded SijxfncxqEdlqyrw94/12/2019EmploymentAnswerDate RecordedEmploymentUnknown 12/30/2018Hunger ScreeningAnswerDate RecordedWithin the past 12 months we worried whether our food would run out before we got money to buy more.Never True04/27/2024Within the past 12 months the food we bought just didn't last and we didn't have money to get more.Never True4Purpose - LifeAnswerDate RecordedPurpose and direction in pribDcgrmay19/11/2021ex and Gender Information ValueDate RecordedSex Assigned at XakahUlzw42/07/2024 4:28 AM EDTLegal SexMale 02/23/2015 11:28 AM EDTGender GswyxrjuRpbj06/07/2024 4:28 AM EDTSexual UzmgnnsrckoXucjdxjm05/07/2024 4:28 AM EDT Last Filed Vital Signs Vital SignReadingTime TakenCommentsBlood Cvtzaavl645/5504/29/2024 12:04 PM EDT Hadxk117904/29/2024 12:04 PM VUVBtjmvuhjcgx69.8 ??C (98.2 ??F)04/29/2024 12:04 PM EDTRespiratory Tsxo3159 12:04 PM EDTOxygen Nkmzyougjy53%04/29/2024 12:04 PM EDTInhaled Oxygen Concentration--Ofqlia19.6 kg (160 lb)09/06/2024 8:19 PM EST Ymyvsm968.7 cm (5' 8 )09/06/2024 8:19 PM ESTBody Mass Index24.33009/06/2024 8:19 PM EST Plan of Treatment Health MaintenanceDue DateLast DoneCommentsDTaP,Tdap and Td Vaccines (1 - Tdap) 1966Zoster (Shingles) Vaccine (1 of 2)1966Fall Risk Screening 2012RSV ( or age 60+ yrs) (1 - 1-dose 75+ series)2COVID- 19 Vaccine (2024- season), 08/02/2023, 04/02/2022, Additional history existsInfluenza Hunvhuo02/, 08/02/2023, 04/02/2022, Additional history existsDepression Dtuvuxoyo77 Tobacco Tkcyoygbz35/8374Avlrrexrhbn90/08/202806/02/2023, 12/26/2022, 09/21/2012, Additional history existsAbdominal Aortic Aneurysm (AAA) RmzytjKofwjpjgr09/09/2024 Goals GoalPatient Goal TypeAssociated ProblemsRecent ProgressPatient-Stated?Author <enter goal here> Soha Camejo RN Note: Evaluation of progress towards goal: Patient plans for a safe discharge home self care with spouse support. Medical Devices ImplantedTypeAreaManufacturerDevice IdentifierShelf Expiration DateModel / Serial / LotNeponsit Beach Hospital [id number] Progrip Srg - Sna - [id number] Implanted:Qty: 1 on 11/06/2021 [facility]12/19/[id number] / NA / [id number] Cor Stnt 3.0mm X 18mm 145cm Xience [employer]oint Mtlnk Adriano - [id number] Implanted:Qty: 1 on 04/07/2023 by Rafa Roman MD at [facility]/A: ArterialABBOTT [id number] / / [id number] Cor Stnt 3.0mm X 18mm 145cm Xience [place]oint Mtlnk Adriano - [id number] Implanted:Qty: 1 on 04/07/2023 by Rafa Roman MD at [facility]/A: ArterialABBOTT [id number] / / [id number] Cor Stnt 3.5mm X 28mm 145cm Xience [place]oint Mtlnk Adriano - [id number] Implanted:Qty: 1 on 04/07/2023 by Rafa Roman MD at [facility]/A: ArterialABBOTT [id number] / / [id number] Cor Stnt 3.5mm X 23mm 145cm Xience [place]oint Mtlnk Adriano - [id number] Implanted:Qty: 1 on 04/07/2023 by Rafa Roman MD at [facility]/A: ArterialABBOTT [id number] / / [id number] Cor Stnt 4.0mm X 12mm 145cm Xience [place] Mtlnk Adriano - [id number] Implanted:Qty: 1 on 04/28/2024 by Ludmila Noble MD at [facility]/A: ArterialABBOTT [id number] / / [id number] Procedures Procedure NamePriorityDate/TimeAssociated DiagnosisCommentsUS RETROPERITONEAL HDKKIHZINbloium06/09/2024 12:06 AM EDT PROVATION HMMURDHECUJWmwofek67/08/2023 9:02 AM EDT from Last 3 Months or Most Recently Relevant to Health Maintenance Results * Ultrasound retroperitoneal complete (04/28/2024 12:06 AM EDT)Anatomical Region LateralityModalityBodyUltrasoundSpecimen (Source)Anatomical Location / LateralityCollection Method / VolumeCollection TimeReceived Time04/28/2024 2:06 AM EDT Narrative 04/28/2024 2:26 AM [...] echogenicity. No hydronephrosis, mass, or calculi demonstrated. ?? Urinary bladder: Unremarkable. ??Bilateral ureteral jets not visualized. IMPRESSION: * ??Unremarkable ultrasound of the bilateral kidneys and urinary bladder. Approved by Resident: Federico Donaldson MD ??on 04/28/2024 2:06 AM Corby Maurer MD have [...] Corby Cintron MD on 04/28/2024 2:26 AM Authorizing ProviderResult TypeResult StatusVidhit Randi DOIMG ORDERABLESFinal Result * Colonoscopy Report (12/26/2022 9:02 AM EDT)Specimen (Source)Anatomical Location / LateralityCollection Method / VolumeCollection TimeReceived Time Narrative SYSTEMGENERATED, DOCUMENTATION - 12/26/2022 9:02 AM EDT This order has been auto-finalized for image and report archival in PACs. *For full report details, please reach out to your physician. ??This image is visible to you in MyChart.* Authorizing ProviderResult TypeResult StatusMichael E Grillis DOIMG OR IMG ORDERABLESFinal Result from Last 3 Months or Most Recently Relevant to Health Maintenance Insurance Advance Directives TypeDate RecordedPatient RepresentativeExplanationDurable Power of Can Dryer 04/14/2023 3:27 PMLiving Will04/14/2023 3:19 PM * Full Code (Latest Code Status on File) Date ActivatedDate FxphfntnpmrWafgvspx14/8/2024 12:28 PM10 6:50 PM * Full Code Date ActivatedDate VlpxhqtzqxaDtpjarxq89/7/2024 5:35 AM04/27/2024 12:19 PM * Full Code Date ActivatedDate InactivatedComments04/05/2023 2:40 PM04/08/2023 6:56 PM Care Teams Team MemberRelationshipSpecialtyStart DateEnd Date Cruzito Eid MD PCP - GeneralFamily Medicine04/19/21
--- OUTSIDE RECORDS SUMMARY | 2025-07-13 10:46 | XMS_ITS | Encounter Summary ---
Author Organization [facility] Address [address] [place] [address] Care Team Providers Care Aircraft Seat Upholsterer Name Role Phone Cruzito Eid MD Primary Care Provider [phone] Cruzito Eid MD Unavailable Encounter Details DateTypeDepartmentCare Team (Latest Contact Info)Mafkkjapgze43/18/2025amboo flowsheet [facility] [address] [place] [address] Luna Wong MD [address] [place] [address] Social History Tobacco UseTypesPacks/DayYears UsedDateSmoking Tobacco: GxjnxtNdtkihfyma7809 - 1962Smokeless Tobacco: NeverAlcohol UseStandard Drinks/WeekCommentsYes0 (1 standard drink = 0.6 oz pure alcohol)1-2 drinks monthly or less, caffeine: coffee,soda 2-3 cups per fanT7055 Health LiteracyAnswerDate RecordedHow often do you need to have someone help you when you read instructions, pamphlets, or other written material from your doctor or pharmacy?Uhwfvk5704/25/2024Social Connection and Isolation PanelAnswerDate RecordedIn a typical week, how many times do you talk on the phone with family, friends, or neighbors?More than three times a week04/25/2024How often do you get together with friends or relatives?Twice a week04/25/2024How often do you attend religious or confucianist services?More than 4 times per year04/25/2024o you belong to any clubs or organizations such as religious groups, unions, fraternal or athletic groups, or [...] RecordedPatient Health Questionnaire-2 Score0 11/10/2024[facility] [place] [facility] - Occupational Stress QuestionnaireAnswerDate [...] homeless or living in a detention (including now)?No04/25/2024Sex and Gender InformationValueDate RecordedSex Assigned at BirthNot on fileLegal GocXkrv5010/02/2022 7:25 PM EDT Gender IdentityNot on fileSexual OrientationNot on filedocumented as of this encounter Plan of Treatment DateTypeDepartmentCare Team (Latest Contact Info)Awenutpozoq24/18/2026 1:00 PM EDTOffice Visit [facility] [place] [facility] [address] [place] [phone] Luna Wong MD [address] [place] [address] documented as of this encounter Visit Diagnoses Not on filedocumented in this encounter Additional Health Concerns AssessmentNoted TimePHQ-9 Depression Total Score: 10:00 AM EDT documented as of this encounter Care Teams Team MemberRelationshipSpecialtyStart DateEnd Date Cruzito Eid MD [address] [place] [phone] PCP - GeneralFamily Djpamrgo20/1/23 Cruzito Eid MD [address] [place] [phone] PCP - ACO Reach08/27/24documented as of this encounter
--- OUTSIDE RECORDS SUMMARY | 2025-07-13 10:46 | XMS_ITS ---
Author Organization [facility] Address [address] [place] [address] Care Team Providers Care Cooler Worker Name Role Phone Cruzito Eid MD Primary Care Provider [phone] Active Problems ProblemNoted DateDiagnosed DateAbnormal REM sleep01/04/2025Idiopathic sleep related nonobstructive alveolar fthgtybhpaplkie29/17/2025Insufficient sleep phlzsslu18/17/2025Primary central sleep apnea01/04/2025Medicare annual wellness visit, omvgrrtgha71/23/2025Iron deficiency anemia, qevxdypdejw55/03/2025 Lbfajqrrnu17/05/2024Gastrointestinal hemorrhage associated with acute gastritis 06/24/2024Unsteady gait06/24/2024alance ksyuymcj14/24/2024GI bleed06/09/2024 Sinus node tmkzedujpaj45/20/2024iminished pulses in lower akxqbaxwh99/22/2024 Former ffxafa1905/11/2024Left leg pain05/11/2024Trochanteric bursitis of both hips 05/11/20247831Yndhejcryzk45/22/2024cute on chronic heart failure with preserved ejection ozruiptx42/07/2024cute respiratory failure with hypoxia and /07/2024New onset atrial zipiiowwsrxt15/07/2024bnormal result of cardiovascular function study, gfmgxhnuvru22/19/8493Nbaxqtiwswfn47/19/2024hange in voice02/26/2024 Overview (04/08/2024): Last Assessment & Plan: Voice changing and prior smoker. Refer to ENT for evaluation and direct visualization. DDD (degenerative disc disease), mycwve1702/26/2024 Overview (04/08/2024): Last Assessment & Plan: Increased pain and radicular symptoms. Check x-ray and may need MRI. Xhziagxmoq64/08/2024Lumbar uytzjulyffcmc69/08/2024Weakness of both legs 12/18/2023 Overview (04/08/2024): Last Assessment & Plan: Episode of weakness after leaning and in 1 position for 2 hours but resolved and no problems since.Likely lumbar DDD and irritated nerve. Doing well since and no further symptoms. Able to return to work without restrictions. Benign essential cowilz5810/24/2023 Overview (04/08/2024): Last Assessment & Plan: Tremor stable and continue neurontin. Once off brillinta can resume primidone. Encounter for long-term (current) use of mysaxkleqxn09/05/2024Vitamin D cpkieomrbq32/05/2024Edema of both legs07/22/2023 Overview (04/08/2024): Last Assessment & Plan: Edema stable with lasix and use PRN. Elevate legs PRN. Atherosclerotic heart disease of [place] coronary artery without angina pectoris 07/01/2023 Overview (04/08/2024): Last Assessment & Plan: No pain and follow with cardiology. Benign essential HTN07/01/2023 Overview (04/08/2024): Last Assessment & Plan: BP controlled and monitor PRN. Pmxypjttgsnhau63/12/2023Normal pressure wmaqltgbldttq42/12/2023Obstructive sleep apnea07/01/2023Overweight (BMI 25.0-29.9)07/01/2023NSTEMI (non-ST elevated myocardial infarction)04/05/2023KD stage 3b, GFR 30-44 ml/min01/04/2023Type 2 diabetes mellitus with diabetic peripheral angiopathy without oyhnvbvi01/17/2023 Type 2 diabetes mellitus with hyperglycemia, with long-term current use of klpxoxg7501/04/2023 Overview (04/08/2024): Last Assessment & Plan: BS elevated with steroids but improved. Monitor. Asymptomatic ujivumrjtby65/25/2023LL (chronic lymphocytic leukemia)06/27/2022 Overview (04/08/2024): Last Assessment & Plan: Follow with oncology Large granular /08/2022ilateral carotid artery stenosis 10/21/2019 Overview (04/08/2024): Last Assessment & Plan: No symptoms and monitor. Rzklscwryicm77/02/2020PAD (peripheral artery disease)10/21/2019 Overview (04/08/2024): Last Assessment & Plan: Refer to new vascular. Status post angioplasty with stent08/09/2019 Overview (04/08/2024): Drug-eluting stent to the Obtuse marginal branch and RCA in 2016 Current Treatment and Therapy Plans No current plan information found. Past Treatment and Therapy Plans No past plan information found. Lifetime Dose Tracking * ChemicalLifetime DoseAutomatic EntryManual EntryFluoro Time3 minutes0 minutes3 minutesAir Kerma14 mGy0 mGy14 mGyDose Area Product1,520 mGy-cm20 mGy-cm21,520 mGy-cm2
--- OUTSIDE RECORDS SUMMARY | 2025-07-13 10:46 | XMS_ITS | Clinical Summary ---
Author Organization [facility] Address [address] [place] [address] Phone Care Team Providers Care Accelerator Technician Name Role Phone Unavailable Primary Care Provider Unavailabl e Social History Tobacco UseTypesPacks/DayYears UsedDateSmoking Tobacco: Never AssessedSex and Gender InformationValueDate RecordedSex Assigned at BirthNot on fileLegal Sex Male06/15/2022 7:21 PM ESTGender IdentityNot on fileSexual OrientationNot on file Plan of Treatment Not on file
--- OUTSIDE RECORDS SUMMARY | 2025-07-13 10:46 | XMS_ITS ---
Author Organization [employer] tem Address [id number] [address] [place] [address] Care Team Providers Care Engineering Production Worker Name Role Phone Cruzito Eid MD Primary Care Provider [phone] Active Problems ProblemNoted DateDiagnosed DateCKD stage 3b, GFR 30-44 ml/min4Acute respiratory failure with hypoxia and kxujtrerufg86/07/2024New onset atrial rxzdxmapxmhx58/07/2024cute on chronic heart failure with preserved ejection umweyffm41/07/2024NSTEMI (non-ST elevated myocardial infarction)04/05/2023 Asymptomatic cfuckmwfbln37/25/2023CLL (chronic lymphocytic leukemia)06/27/2022 Overview (04/26/2024): Last Assessment & Plan: Follow with oncology Last Assessment & Plan: Follow with oncology Mixed jwupwwpurtjtqf33/02/2021PAD (peripheral artery disease)10/21/2019 Hlzovjzrfilp75/02/2020Bilateral carotid artery eohuliuz99/02/2020Status post angioplasty with stent08/09/2019 Overview (08/09/2019): Drug-eluting stent to the Obtuse marginal branch and RCA in 2016 Coronary artery disease involving [place] coronary artery of [place] heart without angina pectorisAbnormal result of cardiovascular function study, unspecified HypertensionType 2 diabetes mellitus 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 Current Treatment and Therapy Plans No current plan information found. Past Treatment and Therapy Plans No past plan information found. Lifetime Dose Tracking * ChemicalLifetime DoseAutomatic EntryManual EntryFluoroscopy1,368 mGy0 mGy1,368 hYlbUOZ65,000 mGy/cm20 mGy/cm285,000 mGy/dq9Kqyoei Time26 minutes0 tpvdbbi49 minutes
[2025-07-13 10:55] LABS: Hematocrit 29.6 % (42.0-54.0); Hemoglobin 9.4 g/dL (14.0-18.0); Mean Corpuscular HGB Conc 31.8 g/dL (29.9-35.2); Mean Corpuscular Hemoglobin 29.1 pg (25.9-34.0); Mean Corpuscular Volume 91.6 fL (80.0-94.0); Platelet Count 183 10^3/uL (150-450); Red Blood Count 3.23 10^6/uL (4.70-6.10); White Blood Count 27.1 10^3/uL (4.0-11.0)
--- NOTE | 2025-07-13 10:55 | ECG_ITS ---
[facility] Test Date: 2025-07-13 Pat Name: ILA MOREJON Department: Room: - Gender: Male [employer]: : 1945 Requested By: [id number] Order Number: [id number] Reading MD: LORENA HADLEY M.D. Measurements Intervals [place] Rate: 60 P: 169 ND: 230 QRS: 71 QRSD: 108 T: 22 QT: 440 QTc: 440 Interpretive Statements 73714 Electronic atrial pacemaker [address] depression [address] & Twave abnormality Abnormal ECG Compared to ECG 06/09/2024 07:54:35 ST (T wave) deviation now present Electronic atrial pacemaker is now present Intraventricular conduction delay no longer present Electronically Signed On 07-13-2025 11:47:35 EST by LORENA HADLEY M.D.
[2025-07-13] MEDS: 0.9 % SODIUM CHLORIDE 1,000 ML 1000 ML IV (11:05)
[2025-07-13 11:16] LABS: Alanine Aminotransferase 23 U/L (16-63); Albumin Globulin Ratio 1.2; Albumin Level 3.7 g/dL (3.4-5.0); Alkaline Phosphatase 87 U/L (46-116); Anion Gap 10.4; Aspartate Amino Transferase 15 U/L (15-37); Blood Urea Nitrogen 29.0 mg/dL (7.0-18.0); Calcium 9.0 mg/dL (8.5-10.1); Carbon Dioxide 29.2 mmol/L (21.0-32.0); Chloride 106 mmol/L (98-107); Estimated GFR (African America 35 (>=60 mL/min/1.73m^2); Estimated GFR (Non-African Ame 29 (>=60 mL/min/1.73m^2); Globulin 3.2 g/dL; Glucose 206 mg/dL (74-106); Potassium 4.6 mmol/L (3.5-5.1); Sodium 141 mmol/L (136-145); Total Protein 6.9 g/dL (6.4-8.2)
[2025-07-13 11:23] LABS: Basophils Abs Manual 0.00 10^3/uL (0.00-0.10); Basophils Percent Manual 0.0 % (0.2-2.0); Eosinophils Absolute Manual 0.27 10^3/uL (0.00-0.70); Eosinophils Percent Manual 1.0 % (0.9-7.0); Lymphocytes Absolute Manual 14.09 10^3/uL (1.20-3.80); Lymphocytes Percent Manual 52.0 % (20.5-60.0); Monocytes Absolute Manual 0.81 10^3/uL (0.30-0.80); Monocytes Percent Manual 3.0 % (1.7-12.0); Segmented Neut Absolute Manual 11.92 10^3/uL (1.4-6.5); Segmented Neutrophils % Manual 44.0 (43.0-75.0)
[2025-07-13 11:55] VITALS: BP 132/82; PULSE 67; O2SAT 94
--- NOTE | 2025-07-13 12:05 | ED.GENADUL1 ---
HPI HPI - General Adult General Chief complaint: Nausea/Vomiting/Diarrhea Stated complaint: DIARRHEA Time Seen by Provider: 07/13/25 10:37 Source: patient Mode of arrival: walk-in History of Present Illness HPI narrative: Patient is a 79-year-old male presenting to the emergency department for evaluation of diarrhea. Patient states he has had 3 episodes of brown diarrhea today. He had 7 episodes of brown diarrhea yesterday. He states he feels generally unwell because of this, but denies any other symptoms. He denies any abdominal pain. No constipation. No vomiting or decreased p.o. intake. No chest pain or shortness breath. No fevers or chills. No recent antibiotic use. No recent travel. He is on Plavix for coronary stents, but denies anticoagulation use. Denies melena or hematochezia. Related Data Home Medications ?Medication ?Instructions ?Recorded ?Confirmed amlodipine 10 mg tablet 10 mg PO QAM 12/27/23 07/13/25 aspirin 81 mg chewable tablet 1 tab PO QAM 12/27/23 07/13/25 insulin glargine 100 unit/mL 52 unit subcut DAILY 12/27/23 07/13/25 subcutaneous solution (Lantus U-100 Insulin) metformin 500 mg tablet,extended 500 mg PO DAILY 12/27/23 07/13/25 release 24 hr bumetanide 1 mg tablet 1 mg PO DAILY 06/09/24 07/13/25 primidone 50 mg tablet 50 mg PO Q8H 06/09/24 07/13/25 rivaroxaban 20 mg tablet 20 mg PO DAILY 06/09/24 06/09/24 carvedilol 3.125 mg tablet 3.125 mg PO BID 07/13/25 07/13/25 clopidogrel 75 mg tablet 75 mg PO QAM 07/13/25 07/13/25 gabapentin 300 mg capsule 300 mg PO TID 07/13/25 07/13/25 glipizide 10 mg tablet 10 mg PO DAILY 07/13/25 07/13/25 losartan 100 mg tablet 100 mg PO DAILY 07/13/25 07/13/25 pantoprazole 40 mg tablet,delayed 40 mg PO DAILY 07/13/25 07/13/25 release quetiapine 25 mg tablet 25 mg PO QPM 07/13/25 07/13/25 rosuvastatin 40 mg tablet 40 mg PO QPM 07/13/25 07/13/25 semaglutide 3 mg tablet (Rybelsus) 3 mg PO DAILY 07/13/25 07/13/25 tamsulosin 0.4 mg capsule 0.4 mg PO QPM 07/13/25 07/13/25 Allergies Allergy/AdvReac Type Severity Reaction Status Date / Time No Known Drug Allergies Allergy Verified 12/27/23 13:17 Review of Systems ROS Status of ROS 10 or more systems reviewed and unremarkable except as noted in history and below [facility] Medical History (Updated 07/13/25 @ 11:33 by Joaquim Wright, DO) Bradycardia ?R00.1 - Bradycardia, unspecified (ICD-10) Diabetes ?E11.9 - Type 2 diabetes mellitus without complications (ICD-10) Surgical History (Updated 12/27/23 @ 14:28 by Mary Sherwood) H/O heart artery stent ?Z95.5 - Presence of coronary angioplasty implant and graft (ICD-10) Social History Little interest or pleasure in doing things: not at all Feeling down, depressed, or hopeless: not at all Exam Narrative Exam Narrative: CONSTITUTIONAL: Well-appearing, answering questions and following commands appropriately SKIN: Was warm and dry. EYES: Sclerae white. EARS, NOSE, THROAT: Moist oral mucosa. RESPIRATORY: Clear to auscultation bilaterally, no wheezes, crackles, or stridor, no use of accessory muscles CARDIOVASCULAR: Normal rate and regular rhythm. There is no S3, S4, murmur, rub. GASTROINTESTINAL: Abdomen is soft, nontender, and nondistended. No rebound tenderness or guarding. MUSCULOSKELETAL: No peripheral edema. NEUROLOGIC: Patient is awake and alert. Ambulating with a steady gait. Facies were symmetrical. Constitutional Vital Signs, click to edit/add: Last Vital Signs Temp 98.1 F 07/13/25 10:35 Pulse 67 07/13/25 11:55 Resp 20 07/13/25 11:55 BP 132/82 07/13/25 11:55 Pulse Ox 94 L 07/13/25 11:55 O2 Del Method Room Air 07/13/25 10:35 Course Vital Signs Vital signs: Vital Signs Temperature 98.1 F 07/13/25 10:35 Pulse Rate 69 12/24/25 10:35 Respiratory Rate 18 07/13/25 10:35 Blood Pressure 144/78 H 07/13/25 10:35 Pulse Oximetry 95 07/13/25 10:35 Oxygen Delivery Method Room Air 07/13/25 10:35 Temperature 98.1 F 07/13/25 10:35 Pulse Rate 67 07/13/25 11:55 Respiratory Rate 20 07/13/25 11:55 Blood Pressure 132/82 07/13/25 11:55 Pulse Oximetry 94 L 07/13/25 11:55 Oxygen Delivery Method Room Air 07/13/25 10:35 Medical Decision Making MDM Narrative Medical decision making narrative: Patient is a 79-year-old male presenting to the emergency department for 2-day history of nonmelanotic/nonbloody diarrhea. Vital signs arrival are within normal limits. He is afebrile hemodynamically stable. Examination as noted above. Differential diagnose includes acute diarrhea secondary to viral gastroenteritis or other benign etiologies. No risk factors to suggest C. difficile infection. Patient's exam is not consistent with surgical etiologies of abdominal pain such as appendicitis, cholecystitis, or perforated viscus. He still tolerating p.o. and appears well-hydrated without abnormal vital signs. Laboratory studies were obtained. He was hydrated with 1 L bolus normal saline and IV Zofran. Laboratory studies were significant for leukocytosis, likely related to viral gastroenteritis/infection. He is anemic but at his baseline. No electrolyte or metabolic derangement. Mild RIAN with a creatinine of 2.23, up from his baseline of approximately 1.8. Troponin not elevated. No transaminitis or hyperbilirubinemia. 12 Lead EKG: Atrial paced rhythm at a normal rate of 60 bpm. Normal axis. No ST segment elevations. QRS, CA, and QTc interval within normal limits. Final impression: Atrial paced rhythm without evidence of acute myocardial ischemia. Acute abdominal series independent reviewed interpreted by myself and radiology demonstrated no obstructive bowel gas pattern or acute intra-abdominal pathology. On reevaluation, patient states he feels improved. He is tolerating p.o. I do believe the patient is stable for discharge. Patient's presentation is most likely consistent with acute diarrhea/dehydration with secondary mild prerenal RIAN. They were instructed to follow up with his PCP for further care. Return precautions were given including any new or worsening symptoms. They were instructed to continue aggressive oral rehydration at home. Patient understands and agrees to the plan. FINAL IMPRESSION: #Acute diarrhea #Acute dehydration #acute RIAN DISPOSITION: Discharged home CONDITION: Fair Lab Data Lab results reviewed: Yes I reviewed the patient's lab results Labs: Lab Results 07/13/25 Range/Units 10:50 WBC 27.1 H (4.0-11.0) 10^3/uL RBC 3.23 L (4.70-6.10) 10^6/uL Hgb 9.4 L (14.0-18.0) g/dL Hct 29.6 L (42.0-54.0) % MCV 91.6 (80.0-94.0) fL MCH 29.1 (25.9-34.0) pg MCHC 31.8 (29.9-35.2) g/dL RDW 14.4 (11.0-15.0) % Plt Count 183 (150-450) 10^3/uL MPV 9.8 (9.5-13.5) fL Seg Neuts % (Manual) 44.0 (43.0-75.0) Lymphocytes % (Manual) 52.0 (20.5-60.0) % Monocytes % (Manual) 3.0 (1.7-12.0) % Eosinophils % (Manual) 1.0 (0.9-7.0) % Basophils % (Manual) 0.0 L (0.2-2.0) % Neutrophils # (Manual) 11.92 H (1.4-6.5) 10^3/uL Lymphocytes # (Manual) 14.09 H (1.20-3.80) 10^3/uL Monocytes # (Manual) 0.81 H (0.30-0.80) 10^3/uL Eosinophils # (Manual) 0.27 (0.00-0.70) 10^3/uL Basophils # (Manual) 0.00 (0.00-0.10) 10^3/uL Sodium 141 (136-145) mmol/L Potassium 4.6 (3.5-5.1) mmol/L Chloride 106 (98-107) mmol/L Carbon Dioxide 29.2 (21.0-32.0) mmol/L Anion Gap 10.4 BUN 29.0 H (7.0-18.0) mg/dL Creatinine 2.23 H (0.70-1.30) mg/dL Est GFR ( Amer) 35 L (>=60 mL/min/1.73m^2) Est GFR (Non-Af Amer) 29 L (>=60 mL/min/1.73m^2) BUN/Creatinine Ratio 13.0 Glucose 206 H (74-106) mg/dL Calcium 9.0 (8.5-10.1) mg/dL Total Bilirubin 0.4 (0.2-1.0) mg/dL AST 15 (15-37) U/L ALT 23 (16-63) U/L Alkaline Phosphatase 87 (46-116) U/L Troponin I High Sens 41.5 (4.0-76.1) pg/mL Total Protein 6.9 (6.4-8.2) g/dL Albumin 3.7 (3.4-5.0) g/dL Globulin 3.2 g/dL Albumin/Globulin Ratio 1.2 Imaging Data Abdominal x-ray: Attestation: I personally reviewed and interpreted this imaging study as follows: Radiologist's impression: ITS Impressions Chest/Abdomen X-ray 07/13/25 10:42 IMPRESSION: NONSPECIFIC BOWEL GAS PATTERN, DESCRIBED Impression dictated by: Alissa Mendenhall M.D. 07/13/2025 11:19 AM Dictation Location: [place] [id number] Electronically authenticated by: [id number] Y Date: 07/13/2025 11:19 ECG Data Attestation: I personally reviewed and interpreted this ECG as follows: Discharge Plan Discharge Chief Complaint: Nausea/Vomiting/Diarrhea Clinical Impression: Diarrhea, Dehydration Patient Disposition: Home, Self-Care Time of Disposition Decision: 11:32 Condition: Fair Mode of Transportation: Private Vehicle Prescriptions / Home Meds: No Action bumetanide 1 mg tablet 1 mg PO DAILY primidone 50 mg tablet 50 mg PO Q8H rivaroxaban 20 mg tablet 20 mg PO DAILY Rx Instructions: must administer with evening meal carvedilol 3.125 mg tablet 3.125 mg PO BID clopidogrel 75 mg tablet 75 mg PO QAM gabapentin 300 mg capsule 300 mg PO TID glipizide 10 mg tablet 10 mg PO DAILY losartan 100 mg tablet 100 mg PO DAILY pantoprazole 40 mg tablet,delayed release (DR/EC) 40 mg PO DAILY quetiapine 25 mg tablet 25 mg PO QPM rosuvastatin 40 mg tablet 40 mg PO QPM Rybelsus 3 mg tablet 3 mg PO DAILY tamsulosin 0.4 mg capsule 0.4 mg PO QPM amlodipine 10 mg tablet 10 mg PO QAM aspirin 81 mg tablet,chewable 1 tab PO QAM metformin 500 mg tablet extended release 24 hr 500 mg PO DAILY insulin glargine [Lantus U-100 Insulin] 100 unit/mL solution 52 unit SUBCUT DAILY Print Language: Andorran Instructions: Dehydration (ED), Acute Diarrhea (ED) Additional Instructions: Follow up with your family Referrals: Cruzito Eid MD [Primary Care Provider, Family Practice] - 1 week
== END 2025-07-13 12:24 | disposition home or self-care (01) ==
PROVIDERS: Emergency Provider Student in an Organized Health Care Education/Training Program; PCP Family Medicine
DX: E86.0 Dehydration (principal); R19.7 Diarrhea, unspecified; Z79.02 Long term (current) use of antithrombotics/antiplatelets; Z95.5 Presence of coronary angioplasty implant and graft
CPT/HCPCS: 36415; 74022; 80053; 81001; 84484; 85007; 85027; 93005; 96361; 96374; 99284; J2405